=== PATIENT | female | born 1970 | race Caucasian/White ===

== ENCOUNTER 2017-09-13 13:45 | Inpatient (IN) | payer MEDICARE, SELFPAY ==
[2017-09-13] VITALS (12 sets, daily range): BP systolic 96–130; BP diastolic 65–96; PULSE 76–100; RESP 11–24; TEMP 36.3–38.1; O2SAT 92–98
[2017-09-13] MEDS: Celecoxib 200 MG CAP 400 MG PO (14:33)
[2017-09-13] MEDS: oxyCODONE-CR 10 MG TABCR PO (14:34)
[2017-09-13] MEDS: Acetaminophen 500 MG TAB 1000 MG PO ×2 (14:34→20:02)
[2017-09-13] MEDS: Gabapentin 300 MG CAP PO (14:34)
[2017-09-13] MEDS: Lactated Ringers 1,000 ML 80 ML IV ×2 (14:35→20:06)
[2017-09-13 14:48] LABS: Anion Gap 14.2 mmol/L (3-11); BUN 10 mg/dL (7-18); CO2 24.8 mmol/L (21.0-32.0); CREATININE 0.97 mg/dL (0.55-1.02); Calcium 9.2 mg/dL (8.5-10.1); Chloride 103 mmol/L (98-107); Glucose 130 mg/dL (70-100); Potassium 3.4 mmol/L (3.5-5.1); Sodium 142 mmol/L (136-145)
[2017-09-13 15:04] LABS: HCT 34.5 % (36.0-46.0); HGB 11.1 g/dL (12.0-15.5); Mean Corp. HGB Concentration 32.2 g/dL (32.0-36.0); Mean Corpuscular Hemoglobin 30.7 pg (27.0-33.0); Mean Corpuscular Volume 95.6 fL (80-95); Mean Platelet Volume 10.1 fL (8.0-11.0); Platelet Count 502 x1000/uL (130-400); RBC 3.61 m/cumm (4.00-5.20); RBC Distribution Width 13.8 % (11.7-14.6); White Blood Cell Count 11.58 k/cumm (4.4-10.8)
[2017-09-13 16:00] LABS: Hemoglobin A1C 6.3 % (4.5-6.2)
[2017-09-13] MEDS: Lactated Ringers 1,000 ML 1000 ML IV (16:02)
[2017-09-13] MEDS: Normal Saline - Diluent 50 ML VIAL (17:14)
[2017-09-13] MEDS: Ketorolac 30 MG/ML VIAL (17:14)
[2017-09-13] MEDS: Bupivacaine 0.25% Pres-Free 30 ML VIAL 60 ML (17:14)
[2017-09-13 18:57] LABS: C-Reactive Protein 2.32 mg/dL (0.0-0.3)
[2017-09-13] MEDS: Gabapentin 300 MG CAP 600 MG PO (20:02)
[2017-09-13] MEDS: Sucralfate 1 GM TAB PO (20:02)
[2017-09-13] MEDS: metFORMIN 500 MG TAB 1000 MG PO (20:02)
[2017-09-13] MEDS: Aspirin E.C. 81 MG TABEC PO (20:20)
[2017-09-13] MEDS: VANCOMYCIN 1,000 MG in Normal Saline 250 ML 166.6666 MG IVPB (21:33)
[2017-09-13] MEDS: oxyCODONE 5 MG TAB PO (22:36)
[2017-09-13] MEDS: Montelukast 10 MG TAB PO (22:36)
[2017-09-13] MEDS: Levalbuterol HFA 15 GM INH 2 PUFF IH (22:50)
--- NOTE | 2017-09-13 23:03 | NUR.NOTE ---
1914: Pt arrived via stretcher from [facility] with 2 RN's, Sadie and BONDING AGENT Herbert came to round. Patient alert and slightly groggy. Patient transferred from bed to stretcher. Patient VSS. See assessment for further details. Nursing Note:
[2017-09-14] VITALS (7 sets, daily range): BP systolic 99–123; BP diastolic 66–83; PULSE 71–105; RESP 16–20; TEMP 36.2–37.9; O2SAT 95–99
[2017-09-14] MEDS: Normal Saline Flush 10 ML SYR IV ×3 (00:20→17:23)
[2017-09-14] MEDS: Ketorolac 15 MG/ML VIAL IVP ×4 (00:20→17:22)
[2017-09-14] MEDS: Lactated Ringers 1,000 ML 80 ML IV ×2 (02:58→15:27)
[2017-09-14 07:30] LABS: HCT 26.5 % (36.0-46.0); HGB 8.3 g/dL (12.0-15.5); Mean Corp. HGB Concentration 31.3 g/dL (32.0-36.0); Mean Corpuscular Hemoglobin 30.6 pg (27.0-33.0); Mean Corpuscular Volume 97.8 fL (80-95); Platelet Count 485 x1000/uL (130-400); RBC 2.71 m/cumm (4.00-5.20); RBC Distribution Width 13.6 % (11.7-14.6); White Blood Cell Count 23.46 k/cumm (4.4-10.8)
--- NOTE | 2017-09-14 07:47 | PHARADMIT ---
Addendum entered by Esthela Silveira 09/17/17 10:06: Pharmacy Note Subjective pt is doing well today per progress note Objective VS-okay h/h-8.8/27.4 Assessment ceftriaxone continues, no med changes Plan discharge tomorrow- will come to infusion room for ceftriaxone dose Original Note: Addendum entered by Esthela Silveira 09/16/17 12:01: Pharmacy Note Subjective pt. had a transfusion yesterday Objective VS okay wbc-11.94 h/h-9.9/30.4(up) Assessment vanco changed to ceftriaxone yesterday, hydromorphone IVP discontinued ondansetron(PRN), diphehydramine(PRN), lorazepam(PRN) and lactobacillus (PRN) ordered Plan watch VS, labs and for med changes Original Note: Admission Pharmacy Clinical Review INFECTED (L) TKA Code Status Full Code Current Weight Wgt- 79 kg Renally Cleared and Narrow Therapeutic Index Meds CrCl~58.6 mL/min Meds-OK QTc Value / Action Taken none current BP Control, Fever BP-107/71 Tmax- 36.3C Electrolytes reviewed Na-142 K+3.4 DVT Prophylaxis ASA-ec Opiate Usage / Scheduled Bowel Regimen Ordered Yes Yes Plt/SCr for Heparin / Enoxaparin Plts-502 SCr- 0.97 INR for Warfarin na H/H stable, WBC/Bands H&H- 11.1/34.5 WBC- 11.58 Antibiotic appropriateness Vancomycin Cultures and Sensitivities Knee-pending, Blood-pending Surgical ABX d/c within 24 hr na DM control / Insulin Dosing BG-130 CrS8g-1.3 Aspart Heart Failure (Check EF%) (CHICHO's, B-Block, Diuretics) none IV to PO Switch No Home Meds Reviewed Yes Home Meds Not Ordered Lactase, MagOx,Nystatin, TAC Crm Comments
[2017-09-14] MEDS: metFORMIN 500 MG TAB 1000 MG PO ×2 (08:06→19:55)
[2017-09-14] MEDS: oxyCODONE 5 MG TAB PO ×4 (08:06→22:30)
[2017-09-14] MEDS: FLUoxetine 20 MG CAP 60 MG PO (08:07)
[2017-09-14] MEDS: Gabapentin 300 MG CAP 600 MG PO ×2 (08:07→20:00)
[2017-09-14] MEDS: Esomeprazole 40 MG CAPCR PO (08:07)
[2017-09-14] MEDS: Aspirin E.C. 81 MG TABEC PO ×2 (08:08→19:54)
[2017-09-14] MEDS: Cetirizine 10 MG TAB PO (08:08)
[2017-09-14] MEDS: Acetaminophen 500 MG TAB 1000 MG PO ×3 (08:08→19:54)
[2017-09-14] MEDS: VANCOMYCIN 1,000 MG in Normal Saline 250 ML 166.667 MG IV ×2 (08:09→18:09)
[2017-09-14] MEDS: Insulin Aspart 300 UNITS/3 ML PEN SC ×2 (09:13→12:02)
--- NOTE | 2017-09-14 09:45 | IN_ITS ---
INPATIENT PHYSICAL THERAPY EVALUATION Date: 09/14/17 Referring Doctor: Raheel Gongora PT Orders: PT Consult: s/p TKA washout and poly exchanges. WBAT Precautions: WBAT L LE PATIENT PROFILE/ADMITTING DIAGNOSIS: Pt is a 46yr old female s/p left total knee arthroplasty 07/07/[address] Gongora, admitted for washout and poly exchange of left TKA 09/13/17 PMHX: left total knee arthroplasty, right total knee arthroplasty, obesity, chronic obstructive pulmonary disease, diabetes mellitus, asthma, degenerative joint disease right knee, bilateral sciatica, chronic headaches, anxiety, depression, gastroesophageal reflux disease, cholecystectomy, hysterectomy, 4 hernia repairs Social History/Home Situation: Lives with in a trailer, 4 steps with railing to enter, baseline mobility independent gait with no device, independent with ADLS Equipment owned/DME: FWW SUBJECTIVE: Pt lying in bed using CPM. States she could tolerate 0-68 degrees last night. Agreeable to PT Consult. OBJECTIVE: General Observation: namrata wrap left leg, cryocuff L knee, CPM left LE 0-68 Mental Status: A& O x3 Pain: no c/o pain BED MOBILITY/TRANSFERS: Supine-sit: HOB 30 degrees, SBA Sit-stand: supervision with FWW Stand-sit: supervision Bed-chair: supervision with FWW GAIT: supervision with FWW 70ftx2 WBAT L LE THEREX Pt initiated ankle pumps, quad sets, glut sets x 20 reps BALANCE: Static sitting: normal Dynamic Sitting: normal Static Standing fair Dynamic Standing fair SPECIAL TESTS: Mobility Limitations Standardized Measure [facility] AM -PAC 6 clicks Basic Mobility Inpatient Short Form: raw score: 18 standardized score: 43.63 CMS score: 46.58% CMS modifier: CK INFORMED CONSENT/EDUCATION: Pt instructed in purpose of PT Consult and plan of care. ASSESSMENT: Pt is a 46yr old female s/p left total knee arthroplasty 07/07/[address] Gongora, admitted for washout and poly exchange of left TKA 09/13/17 in setting of s/p right total knee arthroplasty 12/20/16,obesity, chronic obstructive pulmonary disease, diabetes mellitus, asthma, degenerative joint disease right knee, bilateral sciatica, chronic headaches, anxiety, depression. Patient presents with the following impairment level findings: decreased strength and ROM right knee, decreased standing balance requiring FWW for gait stability.Pt will benefit from short term therapy intervention for L knee ROM, strengthening and progressive mobility training. Impairments are contributing to the following functional limitations: AMPAC score CMS score: 46.58% Patient is assessed as a * low 06802 complexity based on the following: History: s/p left total knee arthroplasty 07/06/17 with washout and poly exchange 09/14/17 , s/p right total knee arthroplasty 12/20/16,obesity, chronic obstructive pulmonary disease, diabetes mellitus, asthma, degenerative joint disease right knee, bilateral sciatica, chronic headaches, anxiety, depression. Examination: decreased strength and ROM right knee, decreased standing balance requiring FWW for gait stability Presentation: stable Decision Making: AMPAC score CMS score: 46.58% GOALS 1. supine-sit: independent 2. sit-supine: independent 3. sit-stand: independent 4. Stand-sit: independent 5. Bed-chair: supervision with FWW 6. Chair-bed: supervision with FWW 7. Gait: supervision with FWW 200ft WBAT L LE 8. Up/down 4 steps with railing, supervision WBAT L LE 9. 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 DISCHARGE RECOMMENDATIONS Home with , pt has all DME TREATMENT TIME/MINUTES/CODES 25min IE 9:40 G Codes in the area of mobility and walking around, current status GP [id number] with projected status GP [id number] and discharge status GP [id number] based on AMPAC score CMS score: 46.58% Idalmis Auguste PT
[2017-09-14] MEDS: Budesonide/Formoterol 160/4.5 6 GM 60 PUFF INH IH ×2 (10:39→19:56)
--- NOTE | 2017-09-14 12:36 | PDOC.CMIN ---
Care Management Initial Assess REASON FOR HOSPITALIZATION:: Infected (L) TKA PAST MEDICAL HISTORY/PAST SURGICAL HISTORY:: Asthma, COPD, Depression, Diabetes, GERD, Cholecystectomy, Hysterectomy, Multiple fundal plications, 4 hernia repairs, Bilateral knee arthroscopies, RTKR, (L) Knee arthroscopy PREVIOUS FUNCTIONAL STATUS/SOCIAL/FAMILY SUPPORTS:: Antonia resides in [place] with her , Mckinley. She is independent with all ADLs in the community and has disability support de to knee and back problems. CURRENT FUNCTIONAL STATUS:: Barbara is lying in bed when CM meets with her. She is pleasant in interaction and forthcoming with information. Barbara is currently being monitored and treated with IV ABX and IV and PO medication for pain management. ADVANCE DIRECTIVES:: On file - Mckinley is agent. Has patient been provided with information about the portal?: Yes Did the patient sign up for the portal?: No CODE STATUS:: Full Code INSURANCE COVERAGE / FINANCIAL ISSUES:: Medicare, Financial Asst 100 CURRENT HOME/COMMUNITY SERVICES/EQUIPMENT:: FWW, prior outpatient physical therapy at [facility]. PRIMARY CARE PHYSICIAN:: Gissell Davis POTENTIAL DISCHARGE NEEDS:: Follow up appointment with Dr. Gongora, and PCP. Undetermined coordination need for detention IV ABX; if needed. PATIENT/FAMILY EDUCATION NEEDS:: Review of discharge instructions, insurance limitations. Discuss Ask Me Three. ANTICIPATED BARRIERS TO DISCHARGE:: IV ABX; [facility] infusion room/Home based infusion therapy coordination; unlikely home infusion will be covered by current Medicare coverage. TRANSPORTATION:: Via private vehicle with her . PLAN:: Undetermined need of IV ABX treatment for infected (L) TKA; awaiting cultures and ID consult. Barbara is currently being treated with 1,000mg Vancomycin Q10H. CM will continue to follow and await MD recommendations for discharge planning considerations.
--- NOTE | 2017-09-14 12:47 | INITIAL_ITS ---
Care Management Initial Assess REASON FOR HOSPITALIZATION:: Infected (L) TKA PAST MEDICAL HISTORY/PAST SURGICAL HISTORY:: Asthma, COPD, Depression, Diabetes , GERD, Cholecystectomy, Hysterectomy, Multiple fundal plications, 4 hernia repairs, Bilateral knee arthroscopies, RTKR, (L) Knee arthroscopy PREVIOUS FUNCTIONAL STATUS/SOCIAL/FAMILY SUPPORTS:: Antonia resides in [place] with her , Mckinley. She is independent with all ADLs in the community and has disability support de to knee and back problems. CURRENT FUNCTIONAL STATUS:: Barbara is lying in bed when CM meets with her. She is pleasant in interaction and forthcoming with information. Barbara is currently being monitored and treated with IV ABX and IV and PO medication for pain management. ADVANCE DIRECTIVES:: On file - Mckinley is agent. Has patient been provided with information about the portal?: Yes Did the patient sign up for the portal?: No CODE STATUS:: Full Code INSURANCE COVERAGE / FINANCIAL ISSUES:: Medicare, Financial Asst 100 CURRENT HOME/COMMUNITY SERVICES/EQUIPMENT:: FWW, prior outpatient physical therapy at [facility] [place]. PRIMARY CARE PHYSICIAN:: Gissell Davis POTENTIAL DISCHARGE NEEDS:: Follow up appointment with Dr. Gongora, and PCP. Undetermined coordination need for timber deadener IV ABX; if needed. PATIENT/FAMILY EDUCATION NEEDS:: Review of discharge instructions, insurance limitations. Discuss Ask Me Three. ANTICIPATED BARRIERS TO DISCHARGE:: IV ABX; [facility] infusion room/Home based infusion therapy coordination; unlikely home infusion will be covered by current Medicare coverage. TRANSPORTATION:: Via private vehicle with her . PLAN:: Undetermined need of IV ABX treatment for infected (L) TKA; awaiting cultures and ID consult. Barbara is currently being treated with 1,000mg Vancomycin Q10H. CM will continue to follow and await MD recommendations for discharge planning considerations.
--- NOTE | 2017-09-14 14:27 | INPTTR_ITS ---
PHYSICAL THERAPY PROGRESS NOTE Date: 09/14/17 PRECAUTIONS: WBAT L LE SUBJECTIVE: Pt sat up in chair 3 hours this morning, focused on left knee flexion/extension in chair. Agreeable to PT session prior to return to bed to apply CPM \ OBJECTIVE: General Observation: namrata wrap left leg, cryocuff L knee, CPM left LE 0-72 Pain: c/o tightness left knee and quad, not rated. RN providing pain medication , pt using cryocuff BED MOBILITY/TRANSFERS: Sit-stand: supervision Chair-bed: supervision with FWW Stand-sit: supervision Sit-supine: HOB flat, All for L LE CPM applied- increased from 0-68 to 0-72 with good tolerance. Pt instructed in use of device to continue to increase flexion to 90 degrees as tolerated. Plan is for CPM application 1-5pm and 6-10pm daily if approved by . cryocuff continuously GAIT: supervision with FWW 70ftx2 WBAT L LE THEREX Pt initiated ankle pumps, quad sets, glut sets x 20 reps, long arc quad left 10reps BALANCE: Static sitting: normal Dynamic Sitting: normal Static Standing fair Dynamic Standing fair ASSESSMENT: Mobilizing well with transfers and gait with FWW, stiffness and tightness left knee and quad post operatively. Able to increase knee flexion in CPM to 72 this afternoon PLAN: Progress L knee ROM Progress strengthening Progress gait mobility TREATMENT CODES/TIME: 25min Tax1 TP x1 1305 Idalmis Auguste PT
[2017-09-14] MEDS: Gabapentin 300 MG CAP PO (14:37)
--- NOTE | 2017-09-14 17:23 | PROG.BLANK ---
Date of Service: 09/14/17 Time of Service: 15:40 Progress Note Fay is postop day #1 from I&D and polyethylene exchange for an infected left total knee. She reports the pain in the knee is much better than it was. I did place her on a CPM since we have been struggling with motion in this knee for the beginning. She has been tolerating it well and is happy to see the knee moving with much less pain. She has had good pain control with the oral agents. She denies any fever or chills. She has had no chest pain or shortness of breath. She has been able to work with physical therapy and has ambulated in the hallways. Exam: No acute distress. Alert oriented 3. Left knee is in the CPM. Dressings clean dry and intact. Assessment of passive motion is from 10 to about 80?. Sensation intact light touch of the deep and superficial peroneal nerve and tibial nerves. Assessment and plan: Fay is a 47-year-old with an infected left total knee arthroplasty. I am hopeful this can be treated with the irrigation and debridement and polyethylene exchange with IV antibiotics. However, I have been honest with pain that this may require two-stage procedure which we will try to avoid. At this point the cultures are growing out staph aureus. I am awaiting sensitivities and therefore we will keep her on vancomycin but hopefully will be able to switch to something less potent and more specific. We will plan for a PICC line placement tomorrow pending blood culture results which will likely be negative. We will continue to draw some inflammatory markers and labs to follow these. She will be ready for discharge once we have a better idea of her antibiotic treatment plan.
[2017-09-14] MEDS: Sucralfate 1 GM TAB PO (19:55)
[2017-09-14] MEDS: Montelukast 10 MG TAB PO (22:30)
[2017-09-15] VITALS (15 sets, daily range): BP systolic 113–134; BP diastolic 65–88; PULSE 78–103; RESP 16–20; TEMP 36.2–37.8; O2SAT 94–100
[2017-09-15] MEDS: Ketorolac 15 MG/ML VIAL IVP ×4 (00:11→19:00)
[2017-09-15] MEDS: Normal Saline Flush 10 ML SYR IV ×6 (00:17→21:54)
[2017-09-15] MEDS: oxyCODONE 5 MG TAB PO ×5 (04:25→22:31)
[2017-09-15] MEDS: VANCOMYCIN 1,000 MG in Normal Saline 250 ML 166.667 MG IV (04:55)
[2017-09-15] MEDS: Lactated Ringers 1,000 ML 80 ML IV (06:02)
--- NOTE | 2017-09-15 06:51 | ROE_ITS ---
REPORT OF OPERATIVE REPORT DATE OF PROCEDURE September 13, 2017 PREOPERATIVE DIAGNOSIS Infected left total knee arthroplasty. POSTOPERATIVE DIAGNOSIS Infected left total knee arthroplasty. SURGEON Raheel Gongora M.D. TORCH HEATER Guillermo Humphreys FINDINGS After entering into the knee, the primary infection seemed to be at the quad tendon and the suprapatellar region. Extensive debridement and irrigation was performed followed by polyethylene exchange with placement of Stimulan antibiotic laden beads. ANESTHESIA General. ESTIMATED BLOOD LOSS 400 cc COMPLICATIONS None. DISPOSITION The patient was awakened from anesthesia and taken to the PACU in stable condition. INDICATIONS FOR PROCEDURE Fay is a 47-year-old who I have seen for her left total knee. She underwent a first knee replacement without a major event. However, in the postoperative process, she failed to gain any extension. She had a pain free range of motion, but she had limited flexion by greater than 20 degrees. After dealing with this for some time, I did take her back to the Operating Room on August 22, for a revision of her polyethylene component. At that time the knee appeared healthy. There were no signs of infection. The polyethylene was exchanged to a smaller size, where she had notable full extension and flexion on intraoperative and postoperative exam. She did well initially and when I saw her for the first postop, she was started to regress. I followed her closely and her exam continued to deteriorate and pain continued to increase. The knee was not warm or erythematous. However, given the increasing pain and the decreasing motion, I did aspirate the knee to rule out infection and unfortunately, this is positive for infection. I thus recommended she proceed to the Operating Room that day. I reviewed the risk of treatment to include bleeding, persistent infection, need for repeat procedures, damage to nerve and vessels, stiffness, pain, blood clot. Despite these risks, she elected to proceed. DESCRIPTION OF PROCEDURE Fay was greeted in the preoperative holding area. Her identity was confirmed and the correct side was identified and marked. The consent was reviewed with the patient and signed. The history and physical was updated. She was taken back to the Operating Room and placed in the supine position. All bony prominences were padded. Prophylactic antibiotics in the form of cefazolin were administered given that we already had aspiration of the knee with pending cultures. The left leg was then prepped with ChloraPrep and draped in a standard fashion. A timeout was performed for safe surgery. The previous surgical scar was excised. The deeper tissues wee then entered. The tissue planes were quite difficult to distinguish. The incision was extended proximally and distally to help with regaining normal tissue planes. There was notable derangement of the distal aspect of the quadriceps tendon where it moves around the patella. The original sutures from the parapatellar arthrotomy were identified and were used as landmarks to perform a medial patellar arthrotomy. There was immediate encounter of a significant amount of pus, once we got into the arthrotomy. There was synovitis seen primarily in the suprapatellar pouch and in this region of the quadriceps tendon. The arthrotomy was taken down all the way to complete and to perform mobilization of the capsule. The quad tendon was investigated and there was definitely signs that the tissue was not healing in this area. The tissue, which appeared unhealthy or necrotic was debrided sharply. In trying to get the knee to bed, there was also noted to be dense adhesions both on the undersurface of the quadriceps tendon and also superiorly between the quadriceps tendon and the skin and fat. Multiple tissue and fluid samples were sent during the case to the lab for culture analysis. I started with the synovectomy laterally. The synovium was excised off of the capsule. This was taken down both proximally and distally. It was extended proximally to re-create the suprapatellar pouch and also remove the adhesions between the quadriceps tendon and the anterior femur. The same was repeated for the medial side, the synovium was taken off. The synovium was not particularly thickened in the inferior portion of the wound. Any areas where we do not feel we adequately took the synovium off, we then debrided manually with a rongeur. This was also performed very proximally underneath the quadriceps tendon to remove any adhesions. This allowed better flexibility of the quadriceps tendon. The patella was then everted and the knee was flexed up. The polyethylene was removed. With the knee in both flexion and extension, a rongeur was used to perform the posterior synovectomy. There was no gross pus encountered in this area. I then used 6 liters of normal saline to thoroughly irrigate the knee. All aspects of the knee were irrigated aggressively, any other remnants of necrotic or diseased synovium were removed. Given her history of having difficulty with range of motion, I did trial a new polyethylene and decided to go with a 5-mm polyethylene. This provided excellent flexion and extension. It did have gapping of about 2 millimeters with valgus stress and 1 millimeter with varus stress. However, I excepted this given her tendency to get tight. The patella was tracking well. The wound was then once again irrigated. On the back table, Stimulan beads were prepared. These were made with vancomycin powder, 1 gram. With these prepared, they were put into the suprapatellar pouch. The arthrotomy was then closed with a #1-PDS. The deep tissues were closed with a #2-0 and #3-0 PDS. The skin was closed with #3-0 Nylon. A tourniquet was not used. At the end of the case, all counts were correct. Fay was awakened from anesthesia and taken back to the PACU in stable condition.
[2017-09-15 07:12] LABS: HCT 21.1 % (36.0-46.0); Mean Corp. HGB Concentration 31.3 g/dL (32.0-36.0); Mean Corpuscular Hemoglobin 30.4 pg (27.0-33.0); Mean Corpuscular Volume 97.2 fL (80-95); Mean Platelet Volume 9.7 fL (8.0-11.0); RBC 2.17 m/cumm (4.00-5.20); RBC Distribution Width 13.4 % (11.7-14.6); White Blood Cell Count 10.22 k/cumm (4.4-10.8)
[2017-09-15 07:19] LABS: HGB 6.6 g/dL (12.0-15.5)
[2017-09-15 07:44] LABS: Platelet Count 296 x1000/uL (130-400)
[2017-09-15] MEDS: FLUoxetine 20 MG CAP 60 MG PO (07:52)
[2017-09-15] MEDS: Acetaminophen 500 MG TAB 1000 MG PO ×3 (08:01→22:32)
[2017-09-15] MEDS: Esomeprazole 40 MG CAPCR PO (08:01)
[2017-09-15] MEDS: metFORMIN 500 MG TAB 1000 MG PO ×2 (08:01→22:33)
[2017-09-15] MEDS: Cetirizine 10 MG TAB PO (08:02)
[2017-09-15] MEDS: Aspirin E.C. 81 MG TABEC PO ×2 (08:02→22:33)
[2017-09-15] MEDS: Sucralfate 1 GM TAB PO ×2 (08:03→22:33)
[2017-09-15] MEDS: Gabapentin 300 MG CAP 600 MG PO ×2 (08:03→22:30)
--- NOTE | 2017-09-15 08:06 | NT_ITS ---
09/15/17 Held morning PT session, per nsg request, due to low Hgb lab value. Will attempt to resume PT services this afternoon, if appropriate at that time. Taylor Gann, FERMENTATION SCIENTIST
[2017-09-15] MEDS: Budesonide/Formoterol 160/4.5 6 GM 60 PUFF INH IH ×2 (08:09→22:34)
[2017-09-15] MEDS: Insulin Aspart 300 UNITS/3 ML PEN SC (08:20)
[2017-09-15 10:01] LABS: C-Reactive Protein 7.33 mg/dL (0.0-0.3)
--- NOTE | 2017-09-15 10:31 | INPTTR_ITS ---
PHYSICAL THERAPY PROGRESS NOTE Date: 09/15/17 PRECAUTIONS: WBAT L LE SUBJECTIVE: Pt lying in bed, states she would like to go to the bathroom, RN cleared pt to mobilize to bathroom, pt with decreased HGB and to receive blood transfusion. OBJECTIVE: General Observation: namrata wrap left leg, cryocuff L knee, CPM pt using at LE 0- 72 Pain: c/o tenderness anterior knee, RN providing pain medication, cryocuff applied at end of therapy session BED MOBILITY/TRANSFERS: Supine-sit: independent Sit-stand: supervision with [facility] Bed-bathroom for toileting: supervision with [facility] Bathroom-bed: supervision with [facility] Stand-sit: supervision Sit-supine: HOB flat, All for L LE * pt wearing LINA hose and SCD's applied to bilateral LE's once back to bed, cryocuff applied to left knee GAIT: supervision with [facility] 25ftx2 WBAT L LE THEREX Pt issued handout for LE strengthening program and instructed in therapeutic exercise. Performed: ankle pumps, quad sets, glute sets x 20 reps, left heel slides 10 reps, AA L SLR 10 reps, AA left hip abduction 10 reps, AA L SAQ 10 reps. Pt focusing on knee extension and quad contraction L LE. Pt instructed to perform therapeutic exercises 2x/day at 10 reps each. Pt verbalized understanding. BALANCE: Static sitting: normal Dynamic Sitting: normal Static Standing fair Dynamic Standing fair ASSESSMENT: Gait mobility limited today due to decreased HGB and plan for blood transfusion. Pt mobilizing with supervision only with walker to/from bathroom. Pain left knee limiting progress with ROM and CPM, pt at 0-72 settings. RN providing pain medication and use of cryocuff encouraged to reduce pain and edema. Participated well in therapeutic exercises for quad activation and LE strengthening, will continue to progress this over weekend. PLAN: Progress L knee ROM Progress strengthening Progress gait mobility TREATMENT CODES/TIME: 32min TAx1 TP x1 10:26 Idalmis Auguste PT
--- NOTE | 2017-09-15 10:34 | PROG.BLANK ---
Date of Service: 09/16/17 Time of Service: 10:00 Progress Note S - Fay is doing better today. She is less anxious and hasn't had any vomiting. She has been able to mobilize. Her headaches are better. She still is struggling with pain control and nausea, although better. O - VSS. LLE dressing c/d/i ROM 5-75 +ADF/APF/EHL/FHL SILT DP/SP/Tib CRP = 8 Abnormal Lab Results 09/15/17 09/16/17 06:55 07:00 WBC 11.94 H RBC 3.19 L Hgb 9.9 L D Hct 30.4 L D MCV 95.3 H MCH 31.0 MCHC 32.6 RDW 14.4 Plt Count 407 H MPV 9.7 Crossmatch See Detail A/P - Fay is doing better POD#3 s/p I&D of L TKA. She is still having some nausea and pain control issues. However, they are getting better. She is mobilizing and working on ROM. I expect her CRP to have crested, but will continue to follow. Continue Cefftriaxone 2g daily. CPM during the day when not exercising.
[2017-09-15] MEDS: LORazepam 2 MG/ML VIAL 0.5 MG IVP (12:08)
--- NOTE | 2017-09-15 12:29 | PROG.BLANK ---
Date of Service: 09/15/17 Time of Service: 12:00 Progress Note S - Fay is doing okay. She reports much better pain control. She has been working on flexion and extension and using the CPM. She has had an increase in her headache. She also has had some more nausea. She denies any chest pain, palpitation, lightheadedness. However, she reports feeling worse overall with no energy. O - VSS. Somewhat pale. LLE dressing c/d/i. CHICHO removed. ROM 5-75 Hgb = 6.6, A/P - Fay is POD#2 s/p I&D and poly exchange for L TKA infection. She is doing okay but does have acute blood loss anemia. She is having headaches and malaise and so I will transfuse. She is quite anxious about blood transfusion. She is also to get a PICC line today for long-term antibiotics. Her cultures are groing MSSA, so I will switch her to Ceftriaxone in preparation for discharge. WBAT LLE.
--- NOTE | 2017-09-15 12:34 | PDOC.CMPRO ---
Care Management Progress Note S/O: Barbara was lying in bed with visitors present when CM met with her. CM reviewed limitations of insurance coverage for home IV ABX; Barbara is agreeable to discharge planning for daily IV Infusion therapy at [facility]. Barbara had her PICC placed today, she also required a blood transfusion and will likely be monitored over the weekend and discharge after her IV ABX dose is administered on Monday. A: 47 year old female admitted to [facility] 09/13/17 for Infected (L) TKA P: Barbara will have PICC line placed and Dr. Gongora will complete orders for infusion therapy and dressing changes at [facility] Infusion Room per MD. She will transport home via private vehicle with family.
--- NOTE | 2017-09-15 12:36 | CMPROGNOTE_ITS ---
Care Management Progress Note S/O: Barbara was lying in bed with visitors present when CM met with her. CM reviewed limitations of insurance coverage for home IV ABX; Barbara is agreeable to discharge planning for daily IV Infusion therapy at [facility]. Barbara had her PICC placed today, she also required a blood transfusion and will likely be monitored over the weekend and discharge after her IV ABX dose is administered on Monday. A: 47 year old female admitted to [facility] 09/13/17 for Infected (L) TKA P: aBrbara will have PICC line placed and Dr. Gongora will complete orders for infusion therapy and dressing changes at [facility] Infusion Room per MD. She will transport home via private vehicle with family.
[2017-09-15] MEDS: Gabapentin 300 MG CAP PO (14:33)
--- NOTE | 2017-09-15 14:42 | NT_ITS ---
PHYSICAL THERAPY NOTE 09/15/17 CPM applied to patient, able to tolerate 0-72 with cryocuff applied. Idalmis Auguste PT
[2017-09-15] MEDS: Normal Saline 500 ML 30 ML IV (15:35)
[2017-09-15] MEDS: Normal Saline 500 ML 150 ML IV (16:22)
[2017-09-15] MEDS: HYDROmorphone 2 MG/ML VIAL 1 MG IVP (16:44)
[2017-09-15 16:54] LABS: Anion Gap 10.4 mmol/L (3-11); BUN 7 mg/dL (7-18); CO2 23.6 mmol/L (21.0-32.0); CREATININE 0.69 mg/dL (0.55-1.02); Calcium 8.2 mg/dL (8.5-10.1); Chloride 105 mmol/L (98-107); Glucose 128 mg/dL (70-100); Potassium 3.6 mmol/L (3.5-5.1); Sodium 139 mmol/L (136-145)
[2017-09-15] MEDS: Ondansetron 4 MG/2 ML VIAL IVP (21:54)
[2017-09-15] MEDS: Montelukast 10 MG TAB PO (22:32)
[2017-09-16] VITALS (7 sets, daily range): BP systolic 115–140; BP diastolic 69–92; PULSE 73–86; RESP 16–19; TEMP 36.1–36.9; O2SAT 94–100
[2017-09-16] MEDS: Ketorolac 15 MG/ML VIAL IVP ×4 (00:06→17:47)
[2017-09-16] MEDS: Normal Saline Flush 10 ML SYR IV ×3 (00:06→17:47)
[2017-09-16] MEDS: oxyCODONE 5 MG TAB PO ×3 (06:14→21:33)
[2017-09-16] MEDS: Lactated Ringers 1,000 ML 80 ML IV ×2 (06:15→21:34)
[2017-09-16 07:27] LABS: HCT 30.4 % (36.0-46.0); HGB 9.9 g/dL (12.0-15.5); Mean Corp. HGB Concentration 32.6 g/dL (32.0-36.0); Mean Corpuscular Volume 95.3 fL (80-95); Mean Platelet Volume 9.7 fL (8.0-11.0); Platelet Count 407 x1000/uL (130-400); RBC 3.19 m/cumm (4.00-5.20); RBC Distribution Width 14.4 % (11.7-14.6); White Blood Cell Count 11.94 k/cumm (4.4-10.8)
[2017-09-16] MEDS: Aspirin E.C. 81 MG TABEC PO ×2 (08:03→21:26)
[2017-09-16] MEDS: FLUoxetine 20 MG CAP 60 MG PO (08:03)
[2017-09-16] MEDS: Esomeprazole 40 MG CAPCR PO (08:03)
[2017-09-16] MEDS: Gabapentin 300 MG CAP 600 MG PO ×2 (08:03→21:26)
[2017-09-16] MEDS: Sucralfate 1 GM TAB PO ×2 (08:03→21:26)
[2017-09-16] MEDS: Acetaminophen 500 MG TAB 1000 MG PO ×3 (08:03→21:26)
[2017-09-16] MEDS: Cetirizine 10 MG TAB PO (08:03)
[2017-09-16] MEDS: metFORMIN 500 MG TAB 1000 MG PO ×2 (08:04→21:27)
[2017-09-16] MEDS: Magnesium Oxide 400 MG TAB PO (08:04)
--- NOTE | 2017-09-16 09:19 | INPTTR_ITS ---
PHYSICAL THERAPY PROGRESS NOTE Date: 09/16/17 PRECAUTIONS: WBAT L LE SUBJECTIVE: Pt reports that her leg is looking better today. OBJECTIVE PAIN: BED MOBILITY/TRANSFERS Rolling L/R: Supine-sit: Sit-supine: Sit-stand: SBA Stand-sit: SBA Bed-Chair: Chair-bed: GAIT Assistive Device FWW Weightbearing WBAT Assist: SBA Distance: 30ftx2 Deviation VITALS: THEREX: Pt completed LE strengthening requiring assist with SLR/hip ABD. Pt completed glute sets, and ankle pumps. STAIRS: ASSESSMENT: Pt tolerated today's session well. PLAN: Cont as per PT POC. TREATMENT CODES/TIME:7:30-7:55 (25) TEE BERGER
[2017-09-16] MEDS: Budesonide/Formoterol 160/4.5 6 GM 60 PUFF INH IH ×2 (09:38→21:27)
--- NOTE | 2017-09-16 10:34 | PROG.BLANK ---
Date of Service: 09/16/17 Time of Service: 10:34 Progress Note S - Fay is doing better today. She is less anxious and hasn't had any vomiting. She has been able to mobilize. Her headaches are better. She still is struggling with pain control and nausea, although better. O - VSS. LLE dressing c/d/i ROM 5-75 +ADF/APF/EHL/FHL SILT DP/SP/Tib CRP = 8 Abnormal Lab Results 09/15/17 09/16/17 06:55 07:00 WBC 11.94 H RBC 3.19 L Hgb 9.9 L D Hct 30.4 L D MCV 95.3 H MCH 31.0 MCHC 32.6 RDW 14.4 Plt Count 407 H MPV 9.7 Crossmatch See Detail A/P - Fay is doing better POD#3 s/p I&D of L TKA. She is still having some nausea and pain control issues. However, they are getting better. She is mobilizing and working on ROM. I expect her CRP to have crested, but will continue to follow. Continue Cefftriaxone 2g daily. CPM during the day when not exercising.
--- NOTE | 2017-09-16 10:44 | PDOC.CMPRO ---
Date of Service: 09/16/17 Time of Service: 10:44 Care Management Progress Note S/O: Barbara is sitting up in bed eating breakfast when this commercial lines underwriter visits. Barbara is well known to this commercial lines underwriter and states that is hopeful to be able to leave Monday. Barbara had a PICC line placed and once discharged will come to the [facility] infusion room daily for IV antibiotics. No change in plan at this time. A: 47 year old female admitted to [facility] 09/13/17 for Infected (L) TKA P: Barbara will have PICC line placed and Dr. Gongora will complete orders for infusion therapy and dressing changes at [facility] Infusion Room per MD. She will transport home via private vehicle with family.
--- NOTE | 2017-09-16 10:46 | CMPROGNOTE_ITS ---
Date of Service: 09/16/17 Time of Service: 10:44 Care Management Progress Note S/O: Barbara is sitting up in bed eating breakfast when this technical writer visits. Barbara is well known to this technical writer and states that is hopeful to be able to leave Monday. Barbara had a PICC line placed and once discharged will come to the [facility] infusion room daily for IV antibiotics. No change in plan at this time. A: 47 year old female admitted to [facility] 09/13/17 for Infected (L) TKA P: Barbara will have PICC line placed and Dr. Gongora will complete orders for infusion therapy and dressing changes at [facility] Infusion Room per MD. She will transport home via private vehicle with family.
[2017-09-16] MEDS: Gabapentin 300 MG CAP PO (14:35)
[2017-09-16] MEDS: Lactobacillus Acidophilus CAP 1 CAP PO (14:35)
[2017-09-16] MEDS: Montelukast 10 MG TAB PO (21:26)
[2017-09-17] MEDS: oxyCODONE 5 MG TAB PO ×6 (00:37→21:14)
[2017-09-17] MEDS: Ketorolac 15 MG/ML VIAL IVP ×5 (00:38→23:45)
[2017-09-17] MEDS: Normal Saline Flush 10 ML SYR IV ×4 (00:39→23:45)
[2017-09-17 03:50] VITALS: BP 127/88; PULSE 78; RESP 16; TEMP 36.6; O2SAT 96
[2017-09-17 07:15] VITALS: BP 117/73; PULSE 82; RESP 18; TEMP 36.1; O2SAT 97
[2017-09-17] MEDS: Acetaminophen 500 MG TAB 1000 MG PO ×3 (07:48→21:13)
[2017-09-17] MEDS: Magnesium Oxide 400 MG TAB PO (07:49)
[2017-09-17] MEDS: Esomeprazole 40 MG CAPCR PO (07:49)
[2017-09-17] MEDS: Lactobacillus Acidophilus CAP 1 CAP PO (07:49)
[2017-09-17] MEDS: Gabapentin 300 MG CAP 600 MG PO ×2 (07:49→21:13)
[2017-09-17] MEDS: FLUoxetine 20 MG CAP 60 MG PO (07:49)
[2017-09-17] MEDS: metFORMIN 500 MG TAB 1000 MG PO ×2 (07:49→21:15)
[2017-09-17 07:50] LABS: HCT 27.4 % (36.0-46.0); HGB 8.8 g/dL (12.0-15.5); Mean Corp. HGB Concentration 32.1 g/dL (32.0-36.0); Mean Corpuscular Hemoglobin 30.9 pg (27.0-33.0); Mean Corpuscular Volume 96.1 fL (80-95); Mean Platelet Volume 9.5 fL (8.0-11.0); Platelet Count 326 x1000/uL (130-400); RBC 2.85 m/cumm (4.00-5.20); RBC Distribution Width 14.1 % (11.7-14.6); White Blood Cell Count 8.68 k/cumm (4.4-10.8)
[2017-09-17] MEDS: Cetirizine 10 MG TAB PO (07:50)
[2017-09-17] MEDS: Aspirin E.C. 81 MG TABEC PO ×2 (07:50→21:16)
[2017-09-17] MEDS: Sucralfate 1 GM TAB PO ×2 (07:50→21:16)
[2017-09-17 07:59] LABS: C-Reactive Protein 4.91 mg/dL (0.0-0.3)
[2017-09-17] MEDS: Budesonide/Formoterol 160/4.5 6 GM 60 PUFF INH IH ×2 (08:04→21:21)
--- NOTE | 2017-09-17 09:25 | PROG.BLANK ---
Date of Service: 09/17/17 Time of Service: 09:25 Progress Note Subjective: Fay is doing well today. She has been able to decrease her pain medications. Her nausea seems to be improving. She is making some progress with her mobilization. She is tolerating the ceftriaxone. She still complains of pain about the knee but it is less intense than it was before the surgery. She is reluctant to use the CPM. Objective: Vital signs are stable. Afebrile. Evaluation the left knee shows a clean dry and intact dressing. Knee range of motion is approximately 5-85?. She is able straight leg raise but does so with a lag of about 20-25?. No erythema. There is an effusion. Laboratory: White blood cell count equals 8.68, C-reactive protein = 4.9 Assessment and plan: Fay is postop day #3 status post I&D and polyethylene exchange of a left total knee arthroplasty. She is making improvements. She is still having some pain issues but we are on the mend. Her C-reactive protein has started to decrease as it should at this time. She is tolerating antibiotics. At this point we will plan for a home discharge tomorrow. We will have her come to the infusion room on a daily basis for her ceftriaxone 2 g. She will continue aspirin for DVT prophylaxis. I will see her back in another week and a half.
--- NOTE | 2017-09-17 09:28 | PROG.BLANK_ITS ---
Date of Service: 09/17/17 Time of Service: 09:25 Progress Note Subjective: Fay is doing well today. She has been able to decrease her pain medications. Her nausea seems to be improving. She is making some progress with her mobilization. She is tolerating the ceftriaxone. She still complains of pain about the knee but it is less intense than it was before the surgery. She is reluctant to use the CPM. Objective: Vital signs are stable. Afebrile. Evaluation the left knee shows a clean dry and intact dressing. Knee range of motion is approximately 5-85 . She is able straight leg raise but does so with a lag of about 20-25 . No erythema. There is an effusion. Laboratory: White blood cell count equals 8.68, C-reactive protein = 4.9 Assessment and plan: Fay is postop day #3 status post I&D and polyethylene exchange of a left total knee arthroplasty. She is making improvements. She is still having some pain issues but we are on the mend. Her C-reactive protein has started to decrease as it should at this time. She is tolerating antibiotics. At this point we will plan for a home discharge tomorrow. We will have her come to the infusion room on a daily basis for her ceftriaxone 2 g. She will continue aspirin for DVT prophylaxis. I will see her back in another week and a half.
--- NOTE | 2017-09-17 10:27 | INPTTR_ITS ---
PHYSICAL THERAPY PROGRESS NOTE Date: 09/17/17 PRECAUTIONS: WBAT L LE SUBJECTIVE: Pt reports that the swelling cont to improve. OBJECTIVE PAIN: BED MOBILITY/TRANSFERS Rolling L/R: Supine-sit: SBA Sit-supine: SBA Sit-stand: SBA Stand-sit: SBA Bed-Chair: Chair-bed: GAIT Assistive Device FWW Weightbearing WBAT L LE Assist: SBA Distance: 35ftx2 Deviation VITALS: THEREX: Pt completed LE strengthening as per flow sheet. Pt required some assist with the SLR and hip abd. Pt then completed the CPM 74 degrees knee flexion 0 degrees knee ext. STAIRS: ASSESSMENT: Pt tolerated today's session well. Pt cont to be motivated during her PT sessions. PLAN: Cont as per PT POC. TREATMENT CODES/TIME: 8:50-9:20 (35) TEE BERGER
[2017-09-17 11:35] VITALS: BP 124/85; PULSE 80; RESP 17; TEMP 36.1; O2SAT 98
[2017-09-17] MEDS: Lactated Ringers 1,000 ML 80 ML IV ×2 (11:46→21:16)
--- NOTE | 2017-09-17 13:31 | PDOC.CMPRO ---
Date of Service: 09/17/17 Time of Service: 13:31 Care Management Progress Note S/O: Fay is sitting up in bed eating breakfast when this insurance underwriter visits. CM spoke with Dr. Gongora whom states that Fay will be ready for DC on Monday09/18/17. Fay will go the [facility] Infusion Room starting Monday for daily IV antibiotics as well as PICC dressing changes when needed. A: 47 year old female admitted to [facility] 09/13/17 for Infected (L) TKA P: Barbara will have PICC line placed and Dr. Gongora will complete orders for infusion therapy and dressing changes at [facility] Infusion Room per MD. She will transport home via private vehicle with family.
--- NOTE | 2017-09-17 13:33 | CMPROGNOTE_ITS ---
Date of Service: 09/17/17 Time of Service: 13:31 Care Management Progress Note S/O: Fay is sitting up in bed eating breakfast when this keno writer visits. CM spoke with Dr. Gongora whom states that Fay will be ready for DC on 09/18. Fay will go the [facility] Infusion Room starting Monday for daily IV antibiotics as well as PICC dressing changes when needed. A: 47 year old female admitted to [facility] 09/13/17 for Infected (L) TKA P: Barbara will have PICC line placed and Dr. Gongora will complete orders for infusion therapy and dressing changes at [facility] Infusion Room per MD. She will transport home via private vehicle with family.
[2017-09-17] MEDS: Gabapentin 300 MG CAP PO (14:07)
[2017-09-17 16:53] VITALS: BP 123/82; PULSE 69; RESP 18; TEMP 36.9; O2SAT 98
[2017-09-17 21:02] VITALS: BP 127/75; PULSE 71; RESP 18; TEMP 36.8; O2SAT 97
[2017-09-17] MEDS: Montelukast 10 MG TAB PO (21:16)
[2017-09-17 23:53] VITALS: BP 123/81; PULSE 67; RESP 18; TEMP 36.4; O2SAT 98
[2017-09-18] MEDS: oxyCODONE 5 MG TAB PO ×2 (00:20→07:20)
[2017-09-18] MEDS: Normal Saline Flush 10 ML SYR IV (05:58)
[2017-09-18] MEDS: Ketorolac 15 MG/ML VIAL IVP (05:59)
--- NOTE | 2017-09-18 07:20 | DISCHARGE ---
Discharge - Discharge Orders Referrals: Raheel Gongora MD [ [facility] STAFF PHYSICIAN] - - Discharge Plan Disposition: HOME Condition: Improving Diet:: Normal Diet Equipment/Supplies:: Walker Activity:: Activity as Tolerated - Instructions Additional Instructions: Dr. Gongora?s Knee Discharge Instructions Activity: The most important activity is to walk. You should try to take short walks a few times a day. It is important that when resting you work on keeping the knee straight. Avoid putting a pillow behind the knee as this will encourage flexion. Work on range of motion exercises as provided by Physical Therapy. Work on flexion (bending the knee) at least 3 times per day. - Start outpatient physical therapy within 1 week. - You should wear the LINA hose on both legs for 2 weeks. May remove for comfort. Dressing: Keep the surgical dressing in place for at least one week. After the first week it may be removed and replace with light gauze and tape or nothing. It may get wet after 3 days but avoid soaking the dressing. If it gets wet, just lightly pat dry. Medications: - You should take Tylenol as your primary pain control medications - You have been prescribed a stronger pain medication (Oxycodone) for breakthrough pain, take as needed as prescribed. - You will be taking Aspirin 81mg twice a day for DVT prevention unless instructed otherwise. - If you have constipation you should take Colace or Miralax (both [id number]). It takes most people 3-4 days to have a bowel movement. - You will be coming to the [facility] Infusion room for once daily antibiotic infusion - Ceftriaxone 2grams. - Make sure to take an [id number]-[id number] probiotic or consume yogurt or other similar dairy products while taking the antibiotics. Follow-up: 2 weeks
--- NOTE | 2017-09-18 07:24 | PDOC.DISCH_ITS ---
Discharge - Discharge Orders Referrals: Raheel Gongora MD [ [facility] STAFF PHYSICIAN] - - Discharge Plan Disposition: HOME Condition: Improving Diet:: Normal Diet Equipment/Supplies:: Walker Activity:: Activity as Tolerated - Instructions Additional Instructions: Dr. Gongora s Knee Discharge Instructions Activity: The most important activity is to walk. You should try to take short walks a few times a day. It is important that when resting you work on keeping the knee straight. Avoid putting a pillow behind the knee as this will encourage flexion. Work on range of motion exercises as provided by Physical Therapy. Work on flexion (bending the knee) at least 3 times per day. - Start outpatient physical therapy within 1 week. - You should wear the LINA hose on both legs for 2 weeks. May remove for comfort. Dressing: Keep the surgical dressing in place for at least one week. After the first week it may be removed and replace with light gauze and tape or nothing. It may get wet after 3 days but avoid soaking the dressing. If it gets wet, just lightly pat dry. Medications: - You should take Tylenol as your primary pain control medications - You have been prescribed a stronger pain medication (Oxycodone) for breakthrough pain, take as needed as prescribed. - You will be taking Aspirin 81mg twice a day for DVT prevention unless instructed otherwise. - If you have constipation you should take Colace or Miralax (both over-the- counter). It takes most people 3-4 days to have a bowel movement. - You will be coming to the [facility] Infusion room for once daily antibiotic infusion - Ceftriaxone 2grams. - Make sure to take an [id number]-[id number] probiotic or consume yogurt or other similar dairy products while taking the antibiotics. Follow-up: 2 weeks
--- NOTE | 2017-09-18 08:00 | INDS_ITS ---
PHYSICAL THERAPY INPATIENT DISCHARGE NOTE Date: 09/18/17 Dates of Service:09/14/17-09/17/17 SUBJECTIVE: NT OBJECTIVE: 09/14/17-09/17/17 BED MOBILITY/TRANSFERS: Supine-sit: independent Sit-supine: minAx1 Sit-stand: supervision Stand-sit: supervision Bed-chair: supervision with FWW Chair-bed: supervision with FWW GAIT: supervision with FWW 35ft-70ftx2 WBAT L LE BALANCE: Static sitting: normal Dynamic Sitting: normal Static Standing fair Dynamic Standing fair ASSESSMENT: Pt is a 46yr old female s/p left total knee arthroplasty 07/07/[address] Gongora, admitted for washout and poly exchange of left TKA 09/13/17 in setting of s/p right total knee arthroplasty 12/20/16,obesity, chronic obstructive pulmonary disease, diabetes mellitus, asthma, degenerative joint disease right knee, bilateral sciatica, chronic headaches, anxiety, depression. Patient was seen for 5 PT visits. Pt see above for functional mobility levels at discharge. Pt is being discharged to home today. GOALS 1. supine-sit: independent 2. sit-supine: independent 3. sit-stand: independent 4. Stand-sit: independent 5. Bed-chair: supervision with FWW 6. Chair-bed: supervision with FWW 7. Gait: supervision with FWW 200ft WBAT L LE 8. Up/down 4 steps with railing, supervision WBAT L LE 9. L knee AROM 0-90 Pt met goals # 1, 5, 6, recommend home PT to meet remaining goals DISCHARGE RECOMMENDATIONS Home with , pt has all DME G Codes in the area of mobility and walking around: with projected status GP [id number] and discharge status GP [id number] Idalmis Auguste PT
[2017-09-18] MEDS: Sucralfate 1 GM TAB PO (08:07)
[2017-09-18] MEDS: Gabapentin 300 MG CAP 600 MG PO (08:07)
[2017-09-18] MEDS: metFORMIN 500 MG TAB 1000 MG PO (08:07)
[2017-09-18] MEDS: Acetaminophen 500 MG TAB 1000 MG PO (08:07)
[2017-09-18] MEDS: Esomeprazole 40 MG CAPCR PO (08:07)
[2017-09-18] MEDS: Aspirin E.C. 81 MG TABEC PO (08:07)
[2017-09-18] MEDS: Cetirizine 10 MG TAB PO (08:08)
[2017-09-18] MEDS: FLUoxetine 20 MG CAP 60 MG PO (08:08)
[2017-09-18 08:13] VITALS: BP 128/85; PULSE 87; RESP 20; TEMP 37; O2SAT 97
[2017-09-18 08:22] LABS: C-Reactive Protein 2.96 mg/dL (0.0-0.3)
[2017-09-18] MEDS: Budesonide/Formoterol 160/4.5 6 GM 60 PUFF INH IH (09:47)
--- NOTE | 2017-09-18 10:41 | PDOC.CMDIS ---
LACE Index Scoring Tool - Questions: Length of Stay (in days): 4 - 6 Acuity (Admit via E.D.?): No Comorbidities: Diabetes w/o Complication, Chronic Pulmonary Disease E.D. Visits: 0 - Answers: Total Score: 7 Risk of Readmission: Low Risk Care Management Discharge Reason for Hospitalization: Infected (L) TKA Discharge Plan: Barbara will discharge home when ready per MD. She will have daily infusion therapy at [facility], per MD. She will participate in OP/PT. Barbara will follow up with Dr. Gongora, her PCP and her plan of care as prescribed. She will transport home via private vehicle with her . Patient/Family Education Needs: Review discharge instructions, follow up plan of care. Services Needed at Discharge: Infusion Therapy ([facility]), Outpatient Therapy (Physical Therapy)
--- NOTE | 2017-09-18 10:51 | CMDISCH_ITS ---
LACE Index Scoring Tool - Questions: Length of Stay (in days): 4 - 6 Acuity (Admit via E.D.?): No Comorbidities: Diabetes w/o Complication, Chronic Pulmonary Disease E.D. Visits: 0 - Answers: Total Score: 7 Risk of Readmission: Low Risk Care Management Discharge Reason for Hospitalization: Infected (L) TKA Discharge Plan: Barbara will discharge home when ready per MD. She will have daily infusion therapy at [facility], per MD. She will participate in OP/PT. Barbara will follow up with Dr. Gongora, her PCP and her plan of care as prescribed. She will transport home via private vehicle with her . Patient/Family Education Needs: Review discharge instructions, follow up plan of care. Services Needed at Discharge: Infusion Therapy ([facility]), Outpatient Therapy ( Physical Therapy)
--- NOTE | 2017-10-16 09:31 | DSE_ITS ---
DATE OF ADMISSION: September 13, 2017 DATE OF DISCHARGE: September 18, 2017 DISCHARGE DIAGNOSIS: Infected left total knee arthroplasty. PROCEDURE: September 13, 2017 - Open irrigation and debridement, synovectomy, polyethylene exchange of th e left knee. HISTORY OF PRESENT ILLNESS: Fay is a 47-year-old who underwent a left knee replacement nearly three months ago. She had difficulties with gaining extension and flexion and a polyethylene exchange was performed. Following this procedure she did develop increasing pain, stiffness, and swelling and she was diagnosed with an infected total knee. She was brought immediately into the operating room for the above procedure and this admission. HOSPITAL COURSE: Fay was transferred to the Medical/Surgical floor following her procedure. She francis erated the procedure well. Her pain was improved from the preoperative status. She was started on p ostoperative antibiotics including Vancomycin for MRSA coverage. By postop day #1 her cultures had returned MSSA and therefore she was switched to Ceftriaxone. A PICC line was placed on postop day #2 . Her blood cultures were negative. Her postoperative hemoglobin did drop to 6.6 on postop day #2 a nd therefore she was transfused two units with a discharge hemoglobin of 8.8 on 09/17. Her discharge CRP went from 7.33 to 2.96. Her vital signs were stable and she was afebrile. She was able to mobil ize with minimal assistance. DISCHARGE DISPOSITION: Home with daily hospital infusion. DISCHARGE CODE STATUS: Full Code. DISCHARGE MEDICATIONS: 1. Oxycodone 5 mg p.o. q4h p.r.n. 2. Acetaminophen 1000 mg p.o. t.i.d. p.r.n. 3. Ceftriaxone 2 grams q24h. 4. Aspirin 81 mg p.o. b.i.d. FOLLOW-UP: Two weeks.
== END 2017-09-18 10:36 | disposition home or self-care (01) | DRG 467 ==
PROVIDERS: Admitting Provider Student in an Organized Health Care Education/Training Program; Visit Provider Student in an Organized Health Care Education/Training Program
DX: T84.54XA Infection and inflammatory reaction due to internal left knee prosthesis, initial encounter (principal); M00.062 Staphylococcal arthritis, left knee; D62 Acute posthemorrhagic anemia; B95.61 Methicillin susceptible Staphylococcus aureus infection as the cause of diseases classified elsewhere; M23.8X2 Other internal derangements of left knee; M65.162 Other infective (teno)synovitis, left knee
CPT/HCPCS: 27486; 27334; 36415 ×4; 80048 ×2; 86140 ×4; 83036; 86920; 86901; 86850; 86900; 85027 ×5; 87070 ×3; 87205 ×3; 87040 ×2; 36569; 94640 ×5; 97530 ×4; 97110 ×4; J0690; J1885 ×20; J2405 ×2; J2250; J1100; J2060; J3010; P9016 ×2; 36430; 80202; J0131

== ENCOUNTER 2017-09-20 02:17 | Outpatient (RCR) | payer MEDICARE, SELFPAY ==
[2017-09-20] MEDS: Normal Saline Flush 10 ML SYR IVP (13:00)
[2017-09-21] MEDS: Normal Saline Flush 10 ML SYR IVP (12:08)
[2017-09-22] MEDS: Normal Saline Flush 10 ML SYR IVP (11:31)
[2017-09-23] MEDS: Normal Saline Flush 10 ML SYR IVP (12:01)
[2017-09-24] MEDS: Normal Saline Flush 10 ML SYR IVP (11:50)
[2017-09-25] MEDS: Normal Saline Flush 10 ML SYR IVP (11:50)
[2017-09-26] MEDS: Normal Saline Flush 10 ML SYR IVP (11:33)
[2017-09-27] MEDS: Normal Saline Flush 10 ML SYR IVP ×2 (09:00→12:06)
[2017-09-27 09:44] LABS: ALT 16 U/L (12-78); AST 19 U/L (15-37); Alkaline Phosphatase 75 U/L (46-116); Anion Gap 12.1 mmol/L (3-11); BUN 10 mg/dL (7-18); Bilirubin, Total 0.6 mg/dL (0.2-1.0); C-Reactive Protein 1.68 mg/dL (0.0-0.3); CO2 21.9 mmol/L (21.0-32.0); CREATININE 0.75 mg/dL (0.55-1.02); Calcium 9.2 mg/dL (8.5-10.1); Chloride 103 mmol/L (98-107); Glucose 133 mg/dL (70-100); Potassium 3.9 mmol/L (3.5-5.1); Sodium 137 mmol/L (136-145); Total Protein 8.3 g/dL (6.4-8.2)
[2017-09-28] MEDS: Normal Saline Flush 10 ML SYR IVP (11:50)
[2017-09-29] MEDS: Normal Saline Flush 10 ML SYR IVP (11:40)
[2017-09-30] MEDS: Normal Saline Flush 10 ML SYR IVP (11:47)
[2017-10-01] MEDS: Normal Saline Flush 10 ML SYR IVP (11:44)
[2017-10-02] MEDS: Normal Saline Flush 10 ML SYR IVP (11:27)
[2017-10-03] MEDS: Normal Saline Flush 10 ML SYR IVP (11:20)
[2017-10-04] MEDS: Normal Saline Flush 10 ML SYR IVP (11:29)
[2017-10-05] MEDS: Normal Saline Flush 10 ML SYR IVP (11:41)
[2017-10-06] MEDS: Normal Saline Flush 10 ML SYR IVP (11:26)
[2017-10-07] MEDS: Normal Saline Flush 10 ML SYR IVP (11:19)
[2017-10-08] MEDS: Normal Saline Flush 10 ML SYR IVP (11:44)
[2017-10-09] MEDS: Normal Saline Flush 10 ML SYR IVP (11:26)
[2017-10-10] MEDS: Normal Saline Flush 10 ML SYR IVP (11:22)
[2017-10-11] MEDS: Normal Saline Flush 10 ML SYR IVP (11:31)
[2017-10-12] MEDS: Normal Saline Flush 10 ML SYR IVP (11:24)
[2017-10-13] MEDS: Normal Saline Flush 10 ML SYR IVP (11:13)
[2017-10-14] MEDS: Normal Saline Flush 10 ML SYR IVP (11:42)
[2017-10-15] MEDS: Normal Saline Flush 10 ML SYR IVP (11:23)
[2017-10-16] MEDS: Normal Saline Flush 10 ML SYR IVP ×2 (07:20→11:38)
[2017-10-16 07:50] LABS: Abs Immature Grans 0.03 k/cumm (0.0-0.09); Absolute Basophil Count 0.02 k/cumm (0.0-0.2); Absolute Eosinophil Count 0.27 k/cumm (0.0-0.7); Absolute Monocyte Count 0.79 k/cumm (0.11-0.7); Absolute Neutrophil Count 4.27 k/cumm (1.2-6.7); Basophils % 0.3; Eosinophils % 3.4; HCT 32.8 % (36.0-46.0); HGB 10.1 g/dL (12.0-15.5); Immature Grans % 0.4; Lymphocytes % 31.7; Mean Corp. HGB Concentration 30.8 g/dL (32.0-36.0); Mean Corpuscular Hemoglobin 29.3 pg (27.0-33.0); Mean Corpuscular Volume 95.1 fL (80-95); Neutrophils % 54.2; Platelet Count 357 x1000/uL (130-400); RBC 3.45 m/cumm (4.00-5.20); White Blood Cell Count 7.88 k/cumm (4.4-10.8)
[2017-10-16 08:02] LABS: ALT 13 U/L (12-78); AST 11 U/L (15-37); Alkaline Phosphatase 74 U/L (46-116); Anion Gap 7.1 mmol/L (3-11); BUN 13 mg/dL (7-18); Bilirubin, Total 0.3 mg/dL (0.2-1.0); C-Reactive Protein 1.35 mg/dL (0.0-0.3); CO2 24.9 mmol/L (21.0-32.0); CREATININE 0.74 mg/dL (0.55-1.02); Calcium 8.5 mg/dL (8.5-10.1); Chloride 103 mmol/L (98-107); Glucose 170 mg/dL (70-100); Potassium 3.6 mmol/L (3.5-5.1); Sodium 135 mmol/L (136-145); Total Protein 7.8 g/dL (6.4-8.2)
[2017-10-16 09:39] LABS: ESR 48 MM/HR (0-20)
[2017-10-17] MEDS: Normal Saline Flush 10 ML SYR IVP (11:29)
[2017-10-18] MEDS: Normal Saline Flush 10 ML SYR IVP (11:26)
== END 2017-10-20 ==
LOC: INF 12:04
PROVIDERS: Visit Provider Student in an Organized Health Care Education/Training Program
DX: T84.54XA Infection and inflammatory reaction due to internal left knee prosthesis, initial encounter (principal); M00.062 Staphylococcal arthritis, left knee; Z96.652 Presence of left artificial knee joint
CPT/HCPCS: 36592 ×2; 96365 ×27; 20610; 80053; 85652; 85025; 86140

== ENCOUNTER → 2017-09-27 08:15 | Outpatient (CLI) | payer MEDICARE, SELFPAY | PROVIDERS: Visit Provider Student in an Organized Health Care Education/Training Program | DX: T84.54XA Infection and inflammatory reaction due to internal left knee prosthesis, initial encounter (principal); Z96.652 Presence of left artificial knee joint; M25.562 Pain in left knee | CPT/HCPCS: 20610 ==

== ENCOUNTER → 2017-10-04 10:00 | Outpatient (CLI) | payer MEDICARE, SELFPAY | PROVIDERS: Visit Provider Orthopaedic Surgery | DX: T84.54XA Infection and inflammatory reaction due to internal left knee prosthesis, initial encounter (principal); Z96.652 Presence of left artificial knee joint; M25.562 Pain in left knee | CPT/HCPCS: 20610 ==

== ENCOUNTER → 2017-10-04 12:26 | Outpatient (REF) | payer MEDICARE, SELFPAY ==
[2017-10-04 14:00] LABS: Clarity CLOUDY; Mononuclear Cells 6 % (0-0); Nucleated Cells 19315 /MM3 (0-0); Polynuclear Cells 94 % (0-0); Source L KNEE
== END ==
LOC: LBN 12:26
PROVIDERS: Visit Provider Orthopaedic Surgery
DX: T84.54XA Infection and inflammatory reaction due to internal left knee prosthesis, initial encounter (principal)
CPT/HCPCS: 87070; 87205; 89051

== ENCOUNTER → 2017-10-16 08:45 | Outpatient (CLI) | payer MEDICARE, SELFPAY | PROVIDERS: Visit Provider Student in an Organized Health Care Education/Training Program | DX: T84.54XD Infection and inflammatory reaction due to internal left knee prosthesis, subsequent encounter (principal); Z96.652 Presence of left artificial knee joint; M25.562 Pain in left knee ==

== ENCOUNTER 2017-10-19 08:33 | Inpatient (IN) | payer MEDICARE, SELFPAY ==
[2017-10-19] VITALS (20 sets, daily range): BP systolic 58–113; BP diastolic 31–80; PULSE 93–129; RESP 14–20; TEMP 36–38.2; O2SAT 95–100
[2017-10-19] MEDS: FAMOTIDINE 20 MG/50 ML BAG 100 MG IVPB (08:00)
[2017-10-19] MEDS: Lactated Ringers 1,000 ML 80 ML IV ×2 (09:49→18:55)
[2017-10-19] MEDS: Bupivacaine 0.5% Pres-Free 30 ML VIAL (11:20)
[2017-10-19] MEDS: Lactated Ringers 1,000 ML 2100 ML IV (12:18)
--- NOTE | 2017-10-19 15:06 | NT_ITS ---
PHYSICAL THERAPY NOTE 10/19/17 PT Consult received, chart reviewed. Pt not yet on medical floor to be able to participate in PT consult. Will complete eval in am Idalmis Auguste PT
[2017-10-19] MEDS: Bupivacaine 0.25% Pres-Free 30 ML VIAL 60 ML (15:31)
[2017-10-19] MEDS: Normal Saline - Diluent 50 ML VIAL IJ (15:31)
[2017-10-19] MEDS: Ketorolac 30 MG/ML VIAL (15:31)
[2017-10-19] MEDS: Ondansetron 4 MG/2 ML VIAL IVP ×2 (16:24→22:31)
--- NOTE | 2017-10-19 16:27 | DI.REPORT_ITS ---
SYMPTOM/DIAGNOSIS: S/P LT TKA, EXPLANT AND SPACER PLACEMENT LEFT KNEE: Two views. Comparison is made with 08/09/17. Since the prior examination, the orthopedic hardware has been removed and a spacer has been placed. The orthopedic hardware appears in good position. The bones appear intact. Skin ced are present. There is air seen in the soft tissues likely post surgical in nature. IMPRESSION: Interval removal of the patient's total knee replacement with spacer placement.
--- NOTE | 2017-10-19 16:43 | DI.VRAD_ITS ---
EXAM: XR Left Knee, 1 or 2 Views EXAM DATE/TIME: 10/19/2017 12:10 PM CLINICAL HISTORY: 47 years old, female; Signs and symptoms; Other: S/P lt tka explant and spacer plant. ; Patient HX: Infected l tka TECHNIQUE: XR Left knee 1 or 2 views. COMPARISON: CR - LEFT KNEE LIMITED 1 OR 2 VIEWS 08/09/2017 2:37 PM FINDINGS: Bones/joints: Normal. Soft tissues: Postsurgical changes as soft tissue edema and emphysema of the soft tissues. Skin ced. Other findings: The implant appears in good anatomical position. IMPRESSION: Postsurgical changes. Dictated and Authenticated by: Anthony Ricketts MD. Ordering:CAMPOS STAPLETON MD
[2017-10-19 16:52] LABS: HCT 25.6 % (36.0-46.0); HGB 7.9 g/dL (12.0-15.5)
[2017-10-19] MEDS: Gabapentin 300 MG CAP 600 MG PO (19:21)
[2017-10-19] MEDS: Budesonide/Formoterol 160/4.5 6 GM 60 PUFF INH IH (19:22)
[2017-10-19] MEDS: Insulin Aspart 300 UNITS/3 ML PEN SC (19:45)
[2017-10-19] MEDS: metFORMIN 500 MG TAB PO (19:46)
[2017-10-19] MEDS: oxyCODONE 5 MG TAB PO (21:06)
[2017-10-19] MEDS: Albuterol 2.5 MG/3 ML INH SOLN VIAL UPD (21:07)
[2017-10-19] MEDS: Montelukast 10 MG TAB PO (21:30)
--- NOTE | 2017-10-19 21:45 | ROE_ITS ---
DATE OF SURGERY: October 19, 2017 PREOPERATIVE DIAGNOSIS: Infected left total knee arthroplasty. POSTOPERATIVE DIAGNOSIS: Same. SURGERY: Explantation of left knee arthroplasty with placement of cement spacer. SURGEON: Raheel Gongora M.D. COMMERCIAL CONSTRUCTION ESTIMATOR: Mynor Durant PA-C, and Marilee Coughlin PA-C ANESTHESIA: General, with femoral nerve block. FINDINGS: There was some synovitis seen throughout the knee but it was much better in regard to tiss ue quality when compared to the last surgery five weeks ago. The tibial and femoral components were able to be removed with minimal bone loss. The cement was removed in total. The patellar component was also removed. Serial irrigation with 9 liters of saline was performed as well as debridement of all areas of necrotic or affected tissue. An articulating cement spacer was placed. ESTIMATED BLOOD LOSS: 1 liter. COMPLICATIONS: None. DISPOSITION: The patient was awakened from anesthesia and taken to the PACU in a stable condition. INDICATION FOR PROCEDURE: Fay is a 47-year-old who underwent knee replacement on the left side [facility] by an open exchange of the polyethylene. Unfortunately, she became infected. Irrigation and de bridement with an open synovectomy was performed first. Unfortunately, she had persistent pain and d ysfunction. Her CRP plateaued at 1.5. After discussing possible treatment options with Fay she mulugeta red to proceed with a component explant and spacer placement. I reviewed the risks of the procedure to include continued infection, pain, stiffness, instability, damage to nerves and vessels, damage to muscles and tendons, and blood clot. Despite these risks, she elected to proceed. PROCEDURE DESCRIPTION: Fay was greeted in the Preoperative Holding Area. Her identity was confirmed and the correct side was identified and marked. The consent was reviewed with the patient and david blanco. History and Physical was updated. She was taken to the PACU first for placement of a femoral nerve block. She was then brought back to the Operating Room and placed in a supine position. All bony prominences were well padded. Bumps w ere placed to support the left leg. A Mukherjee catheter was placed. Prophylactic antibiotics in the fo rm of cefazolin were administered. Tranexamic acid was also given. A time-out was performed for saf e surgery. The left leg was prepped with ChloraPrep and draped in a standard fashion. The previous incision was opened up sharply down to the extensor mechanism. Soft tissue flaps were raised medially and latera lly. The previous arthrotomy site was seen and then this was incised sharply in a full-thickness man ner. I then performed a peel around the proximal tibia to expose the tibial component. An aggressiv e synovectomy was performed both medially and laterally. Areas where the synovium was unable to be t aken as a solid flap, I used a rongeur to remove any necrotic-appearing tissue. In general, tissue q uality was much better than it was five weeks ago. The quadriceps tendon itself appeared to be in mu ch better shape and the tissue itself was not very friable. Excess synovium was removed around the i mplants for better visualization. Using thin flexible osteotomes I then proceeded with removal of the tibial component first. Separati ng the interface between the cement and the tibial component was performed. This was working mediall y to laterally and then from anterior to posterior. Once a large portion of the cement was from around the implant, a bone tamp was used to elevate the tibia. This was done without difficult y and it was able to be removed. There was very minimal cement attached to the tibial component. Us ing a series of osteotomes and rongeurs I then removed the remainder of the cement from the tibia. T here was some bone taken with the cement as had to happen, but there was no excessive bone loss. The re was no fracture. We then focused on the femur. In a similar fashion, thin flexible osteotomes were used to undermine the implant supporting the bone from the cement. Once we had done all aspects of the femoral compone nt in this manner, a bone tamp was used from proximal to distal to remove the femoral component. We did lose some bone around the peg of the lateral femoral condyle. However, the condyle itself was in tact. There was no other fracture noted. Again, the cement was removed from all of the holes includ ing the notch and also all surfaces of the femur. Another debridement was performed around the tibia and femur. The canals were scraped out with an angled curette. I then irrigated the knee with 9 li ters of normal saline. We had good bleeding surfaces at this point. The extension gap was measured for later sizing. The [facility] articular spacer components were then bobo ures and sized as a medium femur and a small tibia. These were opened on the back table. Approximat jone four batches of gentamicin-laden cement were mixed along with a total of 8 grams of vancomycin po wder. These were used for filling the tibial mold up to the desired measurement of 10 mm, as well as the femoral mold. Once it got to the late doughy stage, the femoral mold was then implanted onto th e femur and held in place. Once the cement had fully cured the mold cover was removed. The tibial c omponent was then removed out of its mold as well and it was inserted to make sure that appropriate t hickness was obtained. We were able to get full extension although it was a little tighter than I wo uld like. Another batch of antibiotic-laden cement was then prepared with 1 gram of vancomycin. Thi s was mixed on the back table and then prepared to fill the space by the keel. This was molded and t aken in and out of the wound a few times to make sure it did not set too early in the bone. Once it became into the late doughy phase, the tibial component was attached to it and it was inserted into t he tibia and the leg was brought into extension. It was left there for the full curing process. A saw was used to remove the patellar button and to remove the plastic, and then a series of rongeurs and curettes were used to remove the remainder of the cement including the cement within the plug ho les of the patella. This was thorough irrigated with another 3 liters of normal saline. The knee wa s then tested and had great range of motion from 0 to about 85 degrees. The deep tissues of the knee were injected with 0.25% Marcaine. The arthrotomy was closed with a #1 PDS. The deep tissues were closed with a #0 and #2-0 PDS. The skin was closed with ced. The knee was placed into a knee im mobilizer after dressing the wound with Xeroform, 4x4s, ABDs, Kerlix, and an CHICHO wrap. She was trans ferred over to the hospital bed suffering no notable complications except for the blood loss. There was no significant bleeding encountered during the case but a persistent ooze from all the bony surfa arvind. We will obtain a hemoglobin in the PACU. She will be touchdown weightbearing on the left lower extremity and we will use rivaroxaban for antic oagulation. We will start Physical Therapy tomorrow.
[2017-10-19] MEDS: Acetaminophen 500 MG TAB 1000 MG PO (22:30)
[2017-10-19] MEDS: Cyclobenzaprine 10 MG TAB 5 MG PO (22:31)
[2017-10-20] VITALS (14 sets, daily range): BP systolic 98–121; BP diastolic 58–77; PULSE 87–108; RESP 15–20; TEMP 36.2–37.8; O2SAT 95–100
[2017-10-20] MEDS: Ketorolac 15 MG/ML VIAL IVP ×5 (00:24→23:21)
[2017-10-20] MEDS: oxyCODONE 5 MG TAB PO ×5 (04:29→21:10)
[2017-10-20] MEDS: Lactated Ringers 1,000 ML 80 ML IV (06:25)
[2017-10-20 06:58] LABS: HCT 22.7 % (36.0-46.0); Mean Corp. HGB Concentration 30.8 g/dL (32.0-36.0); Mean Corpuscular Hemoglobin 29.4 pg (27.0-33.0); Mean Corpuscular Volume 95.4 fL (80-95); Mean Platelet Volume 9.8 fL (8.0-11.0); Platelet Count 263 x1000/uL (130-400); RBC 2.38 m/cumm (4.00-5.20); RBC Distribution Width 14.5 % (11.7-14.6); White Blood Cell Count 8.26 k/cumm (4.4-10.8)
[2017-10-20 07:11] LABS: ALT 13 U/L (12-78); AST 14 U/L (15-37); Albumin 2.2 g/dL (3.4-5.0); Alkaline Phosphatase 44 U/L (46-116); BUN 10 mg/dL (7-18); Bilirubin, Total 0.2 mg/dL (0.2-1.0); C-Reactive Protein 1.63 mg/dL (0.0-0.3); CREATININE 0.67 mg/dL (0.55-1.02); Chloride 104 mmol/L (98-107); Glucose 141 mg/dL (70-100); Potassium 3.7 mmol/L (3.5-5.1); Sodium 137 mmol/L (136-145); Total Protein 5.5 g/dL (6.4-8.2)
[2017-10-20 07:22] LABS: Calcium 7.9 mg/dL (8.5-10.1)
[2017-10-20] MEDS: Acetaminophen 500 MG TAB 1000 MG PO ×3 (07:45→23:29)
[2017-10-20] MEDS: Sucralfate 1 GM TAB PO ×2 (07:45→16:07)
[2017-10-20] MEDS: Magnesium Oxide 400 MG TAB PO (07:54)
[2017-10-20] MEDS: FLUoxetine 20 MG CAP 60 MG PO (07:54)
[2017-10-20] MEDS: metFORMIN 500 MG TAB PO ×2 (07:54→17:03)
[2017-10-20] MEDS: Gabapentin 300 MG CAP 600 MG PO ×2 (07:54→19:41)
[2017-10-20] MEDS: Rivaroxaban 10 MG TABLET PO (07:54)
[2017-10-20] MEDS: Esomeprazole 40 MG CAPCR PO (07:54)
[2017-10-20] MEDS: Cetirizine 10 MG TAB PO (07:54)
[2017-10-20] MEDS: diphenhydrAMINE 25 MG CAP PO (07:56)
--- NOTE | 2017-10-20 08:26 | PROG.BLANK_ITS ---
Date of Service: 10/20/17 Time of Service: 08:08 Progress Note S - Fay reports pain in the knee, primarily posteriorly. She has been keeping the knee immobilizer in place but did have a pillow posteriorly. She received one unit of blood yesterday, post-operatively. She has had a headache and complains of pain in the left foot. She denies any chills but did have a low- grade fever. No N/V. O - MIld tachycardia, improving. Tmax of 38.1. Stable BP. LLE dressing intact. KI intact. +ADF/APF/EHL/FHL SILT DP/SP/Tib Imaging: Post-op knee shows appropriate positioning of the spacer. No fracture. Labs: Laboratory Last Values WBC 8.26 k/cumm (4.4-10.8) 10/20/17 06:20 RBC 2.38 m/cumm (4.00-5.20) L 10/20/17 06:20 Hgb 7.0 g/dL (12.0-15.5) L 10/20/17 06:20 Hct 22.7 % (36.0-46.0) L 10/20/17 06:20 MCV 95.4 fL (80-95) H 10/20/17 06:20 MCH 29.4 pg (27.0-33.0) 10/20/17 06:20 MCHC 30.8 g/dL (32.0-36.0) L 10/20/17 06:20 RDW 14.5 % (11.7-14.6) 10/20/17 06:20 Plt Count 263 x1000/uL (130-400) 10/20/17 06:20 MPV 9.8 fL (8.0-11.0) 10/20/17 06:20 Sodium 137 mmol/L (136-145) 10/20/17 06:20 Potassium 3.7 mmol/L (3.5-5.1) 10/20/17 06:20 Chloride 104 mmol/L (98-107) 10/20/17 06:20 Carbon Dioxide 29.0 mmol/L (21.0-32.0) 10/20/17 06:20 Anion Gap 4.0 mmol/L (3-11) 10/20/17 06:20 BUN 10 mg/dL (7-18) 10/20/17 06:20 Creatinine 0.67 mg/dL (0.55-1.02) 10/20/17 06:20 Estimated GFR/1.73 m2 >= 60.00 (mL/min/1.73m2) 10/20/17 06:20 Glucose 141 mg/dL (70-100) H 10/20/17 06:20 Calcium 7.9 mg/dL (8.5-10.1) L 10/20/17 06:20 Total Bilirubin 0.2 mg/dL (0.2-1.0) 10/20/17 06:20 AST 14 U/L (15-37) L 10/20/17 06:20 ALT 13 U/L (12-78) 10/20/17 06:20 Alkaline Phosphatase 44 U/L (46-116) L 10/20/17 06:20 C-Reactive Protein 1.63 mg/dL (0.0-0.3) H 10/20/17 06:20 Total Protein 5.5 g/dL (6.4-8.2) L 10/20/17 06:20 Albumin 2.2 g/dL (3.4-5.0) L 10/20/17 06:20 Patient ABO/Rh A Positive 10/19/17 09:34 Antibody Screen Negative 10/19/17 09:34 Crossmatch See Detail 10/19/17 09:34 A/P - Fay is s/p explant of L TKA. She has acute post-operative blood loss anemia. We will transfuse another unit this AM. We will continue with the oral pain regime. Knee immobilizer while in the bed. She may bend the knee for exercise and mobility but I want the KI in place to promote knee extension. She is also hypoalbuminemic so I will request diet consult and increase in protein in diet. Continue Ceftriaxone. Rivaroxaban for DVT prevention.
[2017-10-20] MEDS: Normal Saline Flush 10 ML SYR IV ×3 (08:30→18:33)
--- NOTE | 2017-10-20 08:36 | NT_ITS ---
PHYSICAL THERAPY NOTE 10/20/17 Pt with HGB 7.0, to receive blood transfusion this am. requested PT consult start this pm. Idalmis Auguste PT
--- NOTE | 2017-10-20 08:44 | NUR.NOTE ---
Nursing Note: PT TO RECIEVE 1 UNIT OF PRBC PER ORDERS. PT PREMEDICATED ORDERED. VSS, AFEB. PICC TO RU PATENT W/GOOD BLOOD RETURN. COSENT SIGNED, RED BAND VERIFIED.
[2017-10-20] MEDS: Budesonide/Formoterol 160/4.5 6 GM 60 PUFF INH IH ×2 (09:00→19:41)
[2017-10-20] MEDS: Levalbuterol HFA 15 GM INH 2 PUFF IH (09:01)
--- NOTE | 2017-10-20 10:25 | PHARADMIT ---
Addendum entered by Evangelina Bañuelos 10/22/17 10:36: Pharmacy Note Subjective Explantation of left knee arthroplasty with placement of cement spacer done 10/19/17 Objective vs ok, left knee culture;Propionbacterium Acnes. Assessment ceftriaxone IV continues Plan possibly discharge today Original Note: Admission Pharmacy Clinical Review Infected LEFT TOTAL KNEE Code Status Full Code Current Weight Wgt- 83 kg Renally Cleared and Narrow Therapeutic Index Meds CrCl~71.14 mL/min Meds-OK QTc Value / Action Taken QTc-405 na BP Control, Fever BP- 113/75 Tmax-37.9C Electrolytes reviewed Na- 137 K+3.7 DVT Prophylaxis Xarelto Opiate Usage / Scheduled Bowel Regimen Ordered Yes Yes Plt/SCr for Heparin / Enoxaparin Plts-263 SCr-0.67 INR for Warfarin NA H/H stable, WBC/Bands H&H- 7.0/22.7 WBC-8.26 Antibiotic appropriateness Rocephin Cultures and Sensitivities NONE Surgical ABX d/c within 24 hr NA DM control / Insulin Dosing BG- 141 Aspart, Metformin Heart Failure (Check EF%) (CHICHO's, B-Block, Diuretics) PHENTLEPHRINE DRIP, IV to PO Switch No Home Meds Reviewed Yes Home Meds Not Ordered Lactase, Nystatin, Rifampin TAC cRM Comments
--- NOTE | 2017-10-20 12:04 | PDOC.CMIN ---
Care Management Initial Assess REASON FOR HOSPITALIZATION:: Infected (L) TKA PAST MEDICAL HISTORY/PAST SURGICAL HISTORY:: Asthma, COPD, Depression, Diabetes, GERD, Cholecystectomy, Hysterectomy, Multiple fundal plications, 4 hernia repairs, Bilateral knee arthroscopies, RTKR, (L) Knee arthroscopy, s/p L TKA explant and cement spacer placement. PREVIOUS FUNCTIONAL STATUS/SOCIAL/FAMILY SUPPORTS:: Antonia resides in [place] with her , Mckinley. She is independent with all ADLs in the community and has disability support due to knee and back problems. CURRENT FUNCTIONAL STATUS:: Barbara was lying in bed having a blood transfusion, visitor at her bedside when CM met with her. She was pleasant in interaction and forthcoming with information. She shared concerns around level of activity and ability, CM reviewed inpatient process and outreach information for support if Barbara feels unsure or has questions. ADVANCE DIRECTIVES:: On file - Mckinley is agent. Has patient been provided with information about the portal?: Yes Did the patient sign up for the portal?: No CODE STATUS:: Full Code INSURANCE COVERAGE / FINANCIAL ISSUES:: Medicare, Financial Asst 100 CURRENT HOME/COMMUNITY SERVICES/EQUIPMENT:: FWW, [place] [facility] [place] daily infusions at [facility]. PRIMARY CARE PHYSICIAN:: Gissell Davis POTENTIAL DISCHARGE NEEDS:: Follow up appointment with Dr. Gongora, and PCP. Coordination of W/C for discharge, likely infusion room coordination. PATIENT/FAMILY EDUCATION NEEDS:: Review of discharge instructions, insurance limitations. Discuss Ask Me Three. ANTICIPATED BARRIERS TO DISCHARGE:: DME equipment: coordination of W/C through [employer] and Medicare TRANSPORTATION:: Via private vehicle with her , Mckinley. PLAN:: Barbara will continue to be closely monitored. She will work with PT and utilize her knee immobilizer and begin working on W/C transfers. CM faxed prescription and W/C DME letter from Dr. Gongora to [place] for review and will await confirmation or notification of further needs. Barbara will likely resume daily infusions at the Infusion Room at [facility] upon discharge and outpatient PT will [facility] Pe[facility] [id number]-XCN/PT. CM will continue to follow and support discharge planning considerations. Barbara will transport via private vehicle with her , Mckinley.
[2017-10-20] MEDS: Butalbital/Acetaminophen/Caffeine 50/325/40 TAB PO (14:08)
[2017-10-20] MEDS: Gabapentin 300 MG CAP PO (14:09)
--- NOTE | 2017-10-20 14:42 | INITIAL_ITS ---
Care Management Initial Assess REASON FOR HOSPITALIZATION:: Infected (L) TKA PAST MEDICAL HISTORY/PAST SURGICAL HISTORY:: Asthma, COPD, Depression, Diabetes , GERD, Cholecystectomy, Hysterectomy, Multiple fundal plications, 4 hernia repairs, Bilateral knee arthroscopies, RTKR, (L) Knee arthroscopy, s/p L TKA explant and cement spacer placement. PREVIOUS FUNCTIONAL STATUS/SOCIAL/FAMILY SUPPORTS:: Antonia resides in [place] with her , Mckinley. She is independent with all ADLs in the community and has disability support due to knee and back problems. CURRENT FUNCTIONAL STATUS:: Barbara was lying in bed having a blood transfusion, visitor at her bedside when CM met with her. She was pleasant in interaction and forthcoming with information. She shared concerns around level of activity and ability, CM reviewed inpatient process and outreach information for support if Barbara feels unsure or has questions. ADVANCE DIRECTIVES:: On file - Mckinley is agent. Has patient been provided with information about the portal?: Yes Did the patient sign up for the portal?: No CODE STATUS:: Full Code INSURANCE COVERAGE / FINANCIAL ISSUES:: Medicare, Financial Asst 100 CURRENT HOME/COMMUNITY SERVICES/EQUIPMENT:: FWW, [place] [facility] [place] infusions at [facility]. PRIMARY CARE PHYSICIAN:: Gissell Davis POTENTIAL DISCHARGE NEEDS:: Follow up appointment with Dr. Gongora, and PCP. Coordination of W/C for discharge, likely infusion room coordination. PATIENT/FAMILY EDUCATION NEEDS:: Review of discharge instructions, insurance limitations. Discuss Ask Me Three. ANTICIPATED BARRIERS TO DISCHARGE:: DME equipment: coordination of W/C through [place] and Medicare TRANSPORTATION:: Via private vehicle with her , Mckinley. PLAN:: Barbara will continue to be closely monitored. She will work with PT and utilize her knee immobilizer and begin working on W/C transfers. CM faxed prescription and W/C DME letter from Dr. Gongora to [place] for review and will await confirmation or notification of further needs. Barbara will likely resume daily infusions at the Infusion Room at [facility] upon discharge and outpatient PT will [facility] Pe[facility] Fduhpvjghp-[id number]-KNK/PT. CM will continue to follow and support discharge planning considerations. Barbara will transport via private vehicle with her , Mckinley.
--- NOTE | 2017-10-20 15:18 | IN_ITS ---
INPATIENT PHYSICAL THERAPY EVALUATION Date: 10/20/17 Referring Doctor: Raheel Gongora PT Orders: PT Consult: s/p L TKA explant and cement spacer placement. TDWB L LE. Knee immobilizer to encourage extension Precautions: TDWB LLE, knee immobilizer in bed, can be removed for transfers per MD, allow slight flexion of the knee no active flexion by PT PATIENT PROFILE/ADMITTING DIAGNOSIS: Pt is a 47yr old female s/p left total knee arthroplasty 07/07/[address] Gongora, admitted for explant and cement spacer placement PMHX: left total knee arthroplasty, right total knee arthroplasty, obesity, chronic obstructive pulmonary disease, diabetes mellitus, asthma, degenerative joint disease right knee, bilateral sciatica, chronic headaches, anxiety, depression, gastroesophageal reflux disease, cholecystectomy, hysterectomy, 4 hernia repairs Social History/Home Situation: Lives with in a trailer, 4 steps with railing to enter, baseline mobility independent gait with no device, independent with ADLS Equipment owned/DME: FWW SUBJECTIVE: Pt lying in bed, agreeable to PT Consult. Pt lying with left LE flexed on pillows, pt instructed to avoid pillow under left knee and place instead under left calf to promote passive knee extension in bed. Pt verbalized understanding. OBJECTIVE: General Observation: knee immobilizer left leg Mental Status: A& O x3 Pain: c/o mild pain anterior left ankle, using ice pack BED MOBILITY/TRANSFERS: Supine-sit: HOB 35 degrees, minAx1 for L LE Sit-stand: SBA with FWW Stand-sit: SBA Sit-supine: Vu for L LE GAIT: SBA with FWW 20ftx2 TDWB L LE BALANCE: Static sitting: normal Dynamic Sitting: normal Static Standing fair Dynamic Standing fair SPECIAL TESTS: Mobility Limitations Standardized Measure [facility] AM -PAC 6 clicks Basic Mobility Inpatient Short Form: raw score: 18 standardized score: 43.63 CMS score: 46.58% CMS modifier: CK INFORMED CONSENT/EDUCATION: Pt instructed in purpose of PT Consult and plan of care. ASSESSMENT: Pt is a 46yr old female s/p left total knee arthroplasty 07/07/[address] Gongora, admitted for explant and cement spacer placement in setting of s/p right total knee arthroplasty 12/20/16,obesity, chronic obstructive pulmonary disease, diabetes mellitus, asthma, degenerative joint disease right knee, bilateral sciatica, chronic headaches, anxiety, depression. Patient presents with the following impairment level findings: decreased strength and ROM right knee, decreased standing balance requiring FWW for gait stability.Pt will benefit from short term therapy intervention for transfer training, strengthening and progressive mobility training. Impairments are contributing to the following functional limitations: AMPAC score CMS score: 46.58% Patient is assessed as a * moderate complexity [id number] based on the following: History: s/p left total knee arthroplasty 07/06/17 with washout and poly exchange 09/14/17 , s/p right total knee arthroplasty 12/20/16,obesity, chronic obstructive pulmonary disease, diabetes mellitus, asthma, degenerative joint disease right knee, bilateral sciatica, chronic headaches, anxiety, depression. Examination: decreased strength and ROM right knee, decreased standing balance requiring FWW for gait stability Presentation: stable Decision Making: AMPAC score CMS score: 46.58% GOALS 1. supine-sit: independent 2. sit-supine: independent 3. sit-stand: independent 4. Stand-sit: independent 5. Bed-chair: supervision with FWW 6. Chair-bed: supervision with FWW 7. Gait: supervision with FWW 30ftx2 WBAT L LE 8. Up/down 4 steps with railing, supervision WBAT L LE PLAN OF CARE/TREATMENT PLAN: 1-2x/day, 7 days/week x 1 week SPINNING FRAME CHANGER instructed in plan of care Initiate physical therapy for strengthening LE's, bed mobility, transfers, gait with FWW, stair training, use of knee immobilizer DISCHARGE RECOMMENDATIONS Home with , pt has all DME TREATMENT TIME/MINUTES/CODES 25min IE 1510 G Codes in the area of mobility and walking around, current status GP [id number] with projected status GP [id number] and discharge status GP [id number] based on AMPAC score CMS score: 46.58% Idalmis Auguste PT
[2017-10-20] MEDS: Insulin Aspart 300 UNITS/3 ML PEN SC (17:02)
[2017-10-20] MEDS: Normal Saline 500 ML 100 ML IV (18:34)
[2017-10-20] MEDS: Albuterol 2.5 MG/3 ML INH SOLN VIAL UPD (20:34)
[2017-10-20] MEDS: Montelukast 10 MG TAB PO (21:04)
[2017-10-20] MEDS: Docusate Sodium 100 MG CAP PO (21:10)
[2017-10-21] MEDS: oxyCODONE 5 MG TAB PO ×4 (03:40→19:37)
[2017-10-21 03:55] VITALS: BP 154/91; PULSE 90; RESP 18; TEMP 37; O2SAT 99
[2017-10-21] MEDS: Ketorolac 15 MG/ML VIAL IVP ×4 (05:50→23:44)
[2017-10-21] MEDS: Budesonide/Formoterol 160/4.5 6 GM 60 PUFF INH IH ×2 (07:10→19:38)
[2017-10-21] MEDS: Magnesium Oxide 400 MG TAB PO (08:30)
[2017-10-21] MEDS: Levalbuterol HFA 15 GM INH 2 PUFF IH ×2 (08:40→15:05)
[2017-10-21] MEDS: metFORMIN 500 MG TAB PO ×2 (08:45→17:04)
[2017-10-21] MEDS: Sucralfate 1 GM TAB PO ×2 (08:45→17:03)
[2017-10-21] MEDS: Esomeprazole 40 MG CAPCR PO (08:45)
[2017-10-21] MEDS: Acetaminophen 500 MG TAB 1000 MG PO ×2 (08:45→19:38)
[2017-10-21] MEDS: Gabapentin 300 MG CAP 600 MG PO ×2 (08:45→19:37)
[2017-10-21] MEDS: Rivaroxaban 10 MG TABLET PO (08:45)
[2017-10-21] MEDS: Cetirizine 10 MG TAB PO (08:45)
[2017-10-21] MEDS: FLUoxetine 20 MG CAP 60 MG PO (08:45)
--- NOTE | 2017-10-21 09:00 | PDOC.CMPRO ---
- If Service Date Differs Date of service: 10/21/17 Time of Service: 09:00 Care Management Progress Note S/O: Fay is lying in bed when this sign writer letterer or painter visits this morning. Fay states that she is feeling tired of being in the hospital and that this is ?just a step to the next procedure?. Fay inquired about the w/c that was ordered. CM contacted [facility], though as it is the weekend they are unable to assist with information in regards to coverage of the w/c. CM contacted [facility] to see if there was a weekend option for a w/c and they state that they are unable to assist on the weekend. CM spoke with Fay and her . Fay states that they have borrowed a w/c from the [facility] before and may be able to again. CM contacted [facility] and they also have a w/c with leg rests available. Fay?s will go to the [employer] today to see if the w/c will work for Fay. Fay states that she is being discharged on 10/22 and that she is ready to return home. She is worried about being non weight bearing and wants to be sure that she will have a w/c to use at home prior to DC. A: 47 yo female with a (L) Total knee P: Fay will return home with no anticipated services. Her to go to [facility] [employer] [facility] today to assess the w/c?s. CM to contact [facility] once CM is alerted of coverage for the w/c. [facility] will transport.
[2017-10-21 09:25] VITALS: BP 122/66; PULSE 67; RESP 16; TEMP 37.1; O2SAT 99
[2017-10-21] MEDS: Butalbital/Acetaminophen/Caffeine 50/325/40 TAB PO (10:50)
[2017-10-21 11:45] VITALS: BP 99/63; PULSE 98; RESP 16; TEMP 37.2; O2SAT 99
[2017-10-21] MEDS: Normal Saline Flush 10 ML SYR IV ×2 (11:55→18:19)
[2017-10-21] MEDS: Insulin Aspart 300 UNITS/3 ML PEN SC ×2 (11:55→17:04)
[2017-10-21] MEDS: Ondansetron 4 MG/2 ML VIAL IVP (12:05)
[2017-10-21] MEDS: Normal Saline 10 ML VIAL IJ (12:05)
[2017-10-21] MEDS: Gabapentin 300 MG CAP PO (13:55)
[2017-10-21] MEDS: Docusate Sodium 100 MG CAP PO (15:05)
[2017-10-21 15:12] LABS: Anion Gap 9.6 mmol/L (3-11); BUN 8 mg/dL (7-18); CO2 23.4 mmol/L (21.0-32.0); Calcium 8.2 mg/dL (8.5-10.1); Chloride 103 mmol/L (98-107); Glucose 151 mg/dL (70-100); Potassium 3.7 mmol/L (3.5-5.1); Sodium 136 mmol/L (136-145)
[2017-10-21 15:13] LABS: HGB 8.6 g/dL (12.0-15.5); Mean Corpuscular Hemoglobin 29.7 pg (27.0-33.0); Mean Corpuscular Volume 93.1 fL (80-95); White Blood Cell Count 10.48 k/cumm (4.4-10.8)
[2017-10-21 15:14] LABS: Mean Corp. HGB Concentration 31.9 g/dL (32.0-36.0); Mean Platelet Volume 10.1 fL (8.0-11.0); Platelet Count 285 x1000/uL (130-400); RBC Distribution Width 15.1 % (11.7-14.6)
[2017-10-21 15:15] VITALS: BP 103/69; PULSE 83; RESP 17; TEMP 36.7; O2SAT 100
--- NOTE | 2017-10-21 17:17 | W.PM.PROGNOT ---
Assessment and Plan (1) Infected prosthetic knee joint: Current visit: Yes Status: Acute Fay is stable after explant of the left TKA. She is still reluctant to move the knee and wants to keep the knee flexed. The wound is benign. The gene analysis performed on the knee shows P. Acnes. We will continue with Ceftriaxone. 2g Daily. She will continue with Rivaroxaban 10mg daily for DVT prevention. Hopeful d/c to home tomorrow. Subjective Interval history since last seen: No new complaints. Her pain is still significant, primarily posterior. Pain medications are helping. No fever or chills. Exam Narrative Exam Narrative: NAD. AAOx3. LLE dressing c/d/i. Dressings are removed and the incision is benign without signs of infection. Reluctant to straight leg raise. Knee is held in about 10 degrees of extension. SILT DP/SP/Tib. Objective Objective Clinical Data: Abnormal lab results 10/21/17 10/21/17 Range/Units 06:45 06:45 RBC 2.90 L (4.00-5.20) m/cumm Hgb 8.6 L (12.0-15.5) g/dL Hct 27.0 L (36.0-46.0) % MCHC 31.9 L (32.0-36.0) g/dL RDW 15.1 H (11.7-14.6) % Glucose 151 H (70-100) mg/dL Calcium 8.2 L (8.5-10.1) mg/dL Vital Signs Temp 36.7 C 10/21/17 15:15 Pulse 83 10/21/17 15:15 Resp 17 10/21/17 15:15 BP 103/69 10/21/17 15:15 Pulse Ox 100 10/21/17 15:15 Intake & Output 10/20/17 10/21/17 10/21/17 23:59 11:59 23:59 Intake Total 2282 / 2282 360 / 360 Output Total 650 / 650 850 / 850 400 / 400 Balance 1632 / 1632 -490 / -490 -400 / -400 Intake: IV 469 / 469 Oral 1500 / 1500 360 / 360 Blood Product 313 / 313 Rbc Leuko Reduced Unit 313 / 313 [id number] Output: Urine 650 / 650 850 / 850 400 / 400 Other: Urine Color Straw Yellow Urine Appearance Clear Clear Urine Odor None Normal Stool Size Large Stool Characteristics Soft Formed Voiding Methods Toilet Toilet Toilet Laboratory Results WBC 10.48 k/cumm (4.4-10.8) 10/21/17 06:45 RBC 2.90 m/cumm (4.00-5.20) L 10/21/17 06:45 Hgb 8.6 g/dL (12.0-15.5) L 10/21/17 06:45 Hct 27.0 % (36.0-46.0) L 10/21/17 06:45 MCV 93.1 fL (80-95) 10/21/17 06:45 MCH 29.7 pg (27.0-33.0) 10/21/17 06:45 MCHC 31.9 g/dL (32.0-36.0) L 10/21/17 06:45 RDW 15.1 % (11.7-14.6) H 10/21/17 06:45 Plt Count 285 x1000/uL (130-400) 10/21/17 06:45 MPV 10.1 fL (8.0-11.0) 10/21/17 06:45 Sodium 136 mmol/L (136-145) 10/21/17 06:45 Potassium 3.7 mmol/L (3.5-5.1) 10/21/17 06:45 Chloride 103 mmol/L (98-107) 10/21/17 06:45 Carbon Dioxide 23.4 mmol/L (21.0-32.0) 10/21/17 06:45 Anion Gap 9.6 mmol/L (3-11) 10/21/17 06:45 BUN 8 mg/dL (7-18) 10/21/17 06:45 Creatinine 0.70 mg/dL (0.55-1.02) 10/21/17 06:45 Estimated GFR/1.73 m2 >= 60.00 (mL/min/1.73m2) 10/21/17 06:45 Glucose 151 mg/dL (70-100) H 10/21/17 06:45 Calcium 8.2 mg/dL (8.5-10.1) L 10/21/17 06:45 Total Bilirubin 0.2 mg/dL (0.2-1.0) 10/20/17 06:20 AST 14 U/L (15-37) L 10/20/17 06:20 ALT 13 U/L (12-78) 10/20/17 06:20 Alkaline Phosphatase 44 U/L (46-116) L 10/20/17 06:20 C-Reactive Protein 1.63 mg/dL (0.0-0.3) H 10/20/17 06:20 Total Protein 5.5 g/dL (6.4-8.2) L 10/20/17 06:20 Albumin 2.2 g/dL (3.4-5.0) L 10/20/17 06:20 Patient ABO/Rh A Positive 10/19/17 09:34 Antibody Screen Negative 10/19/17 09:34 Crossmatch See Detail 10/19/17 09:34 Gene analysis of the left knee results show Propionbacterium Acnes. Date of service: 10/21/17 Time of Service: 08:17
[2017-10-21] MEDS: Normal Saline 500 ML IV (18:17)
[2017-10-21 19:37] VITALS: BP 117/74; PULSE 97; RESP 18; TEMP 37.3; O2SAT 97
[2017-10-21] MEDS: Montelukast 10 MG TAB PO (21:08)
[2017-10-21] MEDS: Patient's Own Medication 1 EACH MISC IH (21:09)
[2017-10-21 23:51] VITALS: BP 104/69; PULSE 79; RESP 18; TEMP 36.7; O2SAT 98
[2017-10-22 04:16] VITALS: BP 97/57; PULSE 75; RESP 16; TEMP 36; O2SAT 98
[2017-10-22] MEDS: Ketorolac 15 MG/ML VIAL IVP ×2 (05:32→12:09)
[2017-10-22 07:09] LABS: HCT 26.3 % (36.0-46.0); HGB 8.3 g/dL (12.0-15.5); Mean Corp. HGB Concentration 31.6 g/dL (32.0-36.0); Mean Corpuscular Volume 94.9 fL (80-95); Mean Platelet Volume 9.9 fL (8.0-11.0); Platelet Count 300 x1000/uL (130-400); RBC 2.77 m/cumm (4.00-5.20); RBC Distribution Width 15.2 % (11.7-14.6); White Blood Cell Count 8.57 k/cumm (4.4-10.8)
[2017-10-22] MEDS: Patient's Own Medication 1 EACH MISC IH (07:19)
[2017-10-22] MEDS: Budesonide/Formoterol 160/4.5 6 GM 60 PUFF INH IH (07:21)
[2017-10-22 07:22] LABS: Anion Gap 8.8 mmol/L (3-11); BUN 12 mg/dL (7-18); C-Reactive Protein 4.87 mg/dL (0.0-0.3); CO2 25.2 mmol/L (21.0-32.0); Calcium 8.3 mg/dL (8.5-10.1); Chloride 102 mmol/L (98-107); Glucose 145 mg/dL (70-100); Potassium 3.9 mmol/L (3.5-5.1); Sodium 136 mmol/L (136-145)
[2017-10-22 07:30] VITALS: BP 100/68; PULSE 82; RESP 17; TEMP 36.9; O2SAT 98
[2017-10-22] MEDS: Insulin Aspart 300 UNITS/3 ML PEN SC (07:49)
[2017-10-22] MEDS: Esomeprazole 40 MG CAPCR PO (07:50)
[2017-10-22] MEDS: Acetaminophen 500 MG TAB 1000 MG PO (07:50)
[2017-10-22] MEDS: Rivaroxaban 10 MG TABLET PO (07:50)
[2017-10-22] MEDS: FLUoxetine 20 MG CAP 60 MG PO (07:51)
[2017-10-22] MEDS: Cetirizine 10 MG TAB PO (07:51)
[2017-10-22] MEDS: Gabapentin 300 MG CAP 600 MG PO (07:51)
[2017-10-22] MEDS: metFORMIN 500 MG TAB PO (07:51)
[2017-10-22] MEDS: Sucralfate 1 GM TAB PO (07:51)
[2017-10-22] MEDS: oxyCODONE 5 MG TAB PO ×2 (07:51→14:05)
[2017-10-22] MEDS: Magnesium Oxide 400 MG TAB PO (07:51)
--- NOTE | 2017-10-22 10:53 | W.PM.DS.N ---
DS: Diagnosis Discharge Diagnosis (1) Infection of total left knee replacement: Status: Acute Discharge Plan Discharge Details Reason For Visit: INFECTED (L) TKA Admit Date/Time: 10/19/17 08:31 Admit Provider: Raheel Gongora Attending Provider: Raheel Gongora Primary Care Provider: Gissell Davis Disposition Patient Disposition: HOME Condition: Stable Hosptial Course Hospital Course: Patient was admitted to the medical surgical floor following her procedure. She tolerated it well with no anesthetic or surgical or medical complications except for acute postoperative blood loss anemia. Initial hemoglobin status post surgery was 7 and she was transfused 1 unit. She did have some significant postoperative pain which was managed primarily with oral agents. Her postoperative day #1 hemoglobin was also low and she was transfused an additional unit. She has since been stable without dizziness, fatigue, syncope. She has been able to mobilize. Her Mukherjee catheter has been removed and she is voiding spontaneously. She has tolerated her medications without difficulty. She was cleared by physical therapy. On postop day #3 she was deemed safe for discharge home. Home Meds and New Rx's Prescriptions: New acetaminophen [Mapap Extra Strength] 500 mg Tablet 1,000 mg PO Q8H PRN PRNQty: 100 RF: 3 oxycodone 5 mg Tablet 5 - 10 mg PO Q4H PRN PRN (Reason: Pain) Qty: 20 RF: 0 rivaroxaban [Xarelto] 10 mg Tablet 10 mg PO DAILY Qty: 14 RF: 0 celecoxib 200 mg capsule 200 mg PO DAILY PRN (Reason: pain) Qty: 30 RF: 0 ondansetron 4 mg tablet,disintegrating 4 mg PO TID PRN (Reason: nausea and vomiting) Qty: 10 RF: 0 Continue cholecalciferol (vitamin D3) [Vitamin D3] 2,000 UNIT capsule 2,000 unit PO DAILY RF: 0 triamcinolone acetonide 15 GM cream 1 gm Topical daily prn Qty: 1 RF: 3 blood-glucose meter [OneTouch UltraMini] 1 EACH kit 1 ea Miscellaneous DAILY Qty: 1 RF: 0 blood sugar diagnostic [OneTouch Ultra Test] 1 EACH strip 1 ea Miscellaneous DAILY Qty: 100 RF: 3 lactase [Lactase Fast Acting] 9,000 UNIT tablet 9,000 unit PO AC & HS Qty: 90 RF: 0 lancets [OneTouch UltraSoft Lancets] 1 EACH misc 1 ea Miscellaneous DAILY Qty: 100 RF: 3 magnesium oxide 500 MG capsule 500 mg PO DAILY Qty: 1 RF: 0 albuterol sulfate 2.5 MG/3 ML solution for nebulization 2.5 mg Inhalation Q6H PRN Qty: 360 RF: 4 sucralfate [Carafate] 1 GM tablet 1 g PO BID Qty: 180 RF: 3 esomeprazole magnesium [Nexium] 40 MG capsule,delayed release(DR/EC) 40 mg PO DAILY Qty: 90 RF: 3 metformin 1,000 MG tablet 1,000 mg PO BID Qty: 180 RF: 3 nystatin 15 GM cream 1 gm Topical BID Qty: 15 RF: 1 fluoxetine 40 MG capsule 40 mg PO DAILY Qty: 90 RF: 3 cetirizine 10 MG tablet 10 mg PO DAILY Qty: 90 RF: 4 montelukast [Singulair] 10 MG tablet 10 mg PO HS Qty: 90 RF: 3 fluoxetine 20 MG capsule 20 mg PO DAILY Qty: 90 RF: 3 gabapentin 300 MG capsule 1 - 2 tab-cap PO TID Qty: 270 RF: 3 fluticasone-salmeterol [Advair Diskus] 1 EACH blister with device 1 puff Inhalation BID Qty: 1 RF: 6 levalbuterol tartrate [Xopenex HFA] 15 GM HFA aerosol inhaler 2 puff Inhalation Q4H PRN Qty: 4 RF: 4 cyclobenzaprine 5 MG tablet 5 mg PO BID PRNQty: 20 RF: 0 polyethylene glycol 3350 17 GM powder in packet 17 gm PO BID PRN PRN (Reason: Constipation) RF: 0 acetaminophen [Mapap Extra Strength] 500 MG tablet 1,000 mg PO TID PRN PRNQty: 90 RF: 1 Discontinued oxycodone 5 MG tablet 5 mg PO Q4H PRN PRNQty: 20 RF: 0 rifampin 300 MG capsule 300 mg PO BID Qty: 14 RF: 0 oxycodone 5 MG tablet 5 mg PO Q6H PRN Qty: 20 RF: 0 docusate sodium [Colace] 100 MG capsule 100 mg PO BID PRN PRN (Reason: Constipation) RF: 0 aspirin 81 MG tablet,delayed release (DR/EC) 81 mg PO BID Qty: 0 RF: 0 Discharge Instructions Instructions: Total Knee Discharge Instructions Additional Instructions: Please call the office of Dr. Gongora on Monday to schedule a follow up appointment. Dr. Gongora?s Total Knee Discharge Instructions Activity: Try to keep the leg as straight as possible. Use the knee immobilizer to encourage leg extension. You may bend the knee as tolerated. You may remove the knee immobilizer for mobilization and exercises. You should stay toe-touch weightbearing, resting the foot on the ground but not placing any weight on it. Dressing: Keep the surgical dressing in place for at least one week. After the first week it may be removed and replace with light gauze and tape or nothing. It may get wet after 3 days but avoid soaking the dressing. If it gets wet, just lightly pat dry. Medications: - You should take Tylenol and anti-inflammatory [Celebrex] as your primary pain control medications - You have been prescribed a stronger pain medication [Oxycodone] for breakthrough pain, take as needed as prescribed. - You will be taking rivaroxaban for DVT prevention unless instructed otherwise. - If you have constipation you should take Colace or Miralax (both [id number]). It takes most people 3-4 days to have a bowel movement. Follow-up: 2 weeks Stand Alone Forms: Nursing Discharge Form Referrals: Raheel Gongora MD [ [facility] STAFF PHYSICIAN] - Activity:: Touchdown weight bearing LEFT leg Equipment/Supplies:: No Equipment Needed Diet:: Protein Discharge Orders Discharge Orders: Discharge Order (Routine); Ordered 10/22/17 Ordered By: Raheel Gongora Other Ambulatory Orders: Complete Blood Count No Diff (Routine) Timeframe: 2 Weeks Facility: [facility] - Location: Laboratory Ordered By: aRheel Gongora C-Reactive Protein (Routine) Timeframe: 2 Weeks Facility: [facility] - Location: Laboratory Ordered By: Raheel Gongora DS: Data Completed studies during hospitalization [Text1]: Procedures ABD SHERRI REPAIR-GRFT NEC (04/16/97) Bed Mobility Treatment (08/22/17) Bed Mobility Treatment using Assistive, Adaptive, Supportive or Protective Equipment (07/06/17) CELL BLK/PAP-UPPER GI (10/01/99) D & C NEC (03/08/06) DRESSING OF WOUND NEC (04/16/97) ESOPHAGOGASTRODUODENOSCOPY [EGD] W/CLOSED BIOPSY (06/27/06) Excision of Left Knee Joint, Open Approach (09/13/17) Gait Training/Functional Ambulation Treatment (08/22/17) Gait Training/Functional Ambulation Treatment using Assistive, Adaptive, Supportive or Protective Equipment (07/06/17) HYSTEROSCOPY (03/08/06) INTRAOPER CHOLANGIOGRAM (09/18/97) Insertion of Infusion Device into Superior Vena Cava, Percutaneous Approach (09/13/17) Introduction of Anesthetic Agent into Peripheral Nerves and Plexi, Percutaneous Approach (07/06/17) KNEE STRUCTURE DIVISION (07/27/05) LAP PROCS FOR CREATION OF ESOPHAGOGASTRIC SPHINCT COMPETENCE (08/17/04) LAPAROSCOPIC CHOLECYSTECTOMY (09/18/97) Laparoscopic incisional hernia repair with graft or prosthesis (03/18/14) Laparoscopic lysis of peritoneal adhesions (03/18/14) Laparoscopic supracervical hysterectomy [LSH] (01/26/11) OTHER NONOP RESPIRATORY MEASURE (09/17/99) OTHER OPEN INCISIONAL HERNIA REPAIR WITH GRAFT OR PROSTHESIS (02/17/09) OTHER REPAIR OF KNEE (07/27/05) Other (09/17/08) Other endoscopy of small intestine (04/29/08) Other nonoperative respiratory measurements (11/03/08) Other open incisional hernia repair with graft or prosthesis (02/19/13) Other plastic repair of palate (06/14/10) Other procedures for creation of esophagogastric sphincteric competence (04/29/08) Plastic operation on pharynx (06/14/10) Range of Motion and Joint Mobility Treatment of Musculoskeletal System - Whole Body (08/22/17) Removal of Synthetic Substitute from Left Knee Joint, Tibial Surface, Open Approach (09/13/17) Replacement of Left Knee Joint with Synthetic Substitute, Cemented, Open Approach (07/06/17) Replacement of Left Knee Joint, Tibial Surface with Synthetic Substitute, Uncemented, Open Approach (09/13/17) Replacement of Right Knee Joint with Synthetic Substitute, Cemented, Open Approach (12/20/16) SMALL BOWEL SUTURE NEC (12/29/09) Supplement Abdominal Wall with Synthetic Substitute, Percutaneous Endoscopic Approach (03/29/16) Therapeutic Exercise Treatment of Musculoskeletal System - Whole Body (08/22/17) Tonsillectomy without adenoidectomy (06/14/10) Transfer Training Treatment (08/22/17) Transfer Training Treatment using Assistive, Adaptive, Supportive or Protective Equipment (07/06/17) Transfusion of Nonautologous Red Blood Cells into Peripheral Vein, Percutaneous Approach (09/13/17) Ultrasonography of Superior Vena Cava, Guidance (09/13/17) Labs on day of discharge: Labs from last 24 hours 10/22/17 10/22/17 10/21/17 06:50 06:50 06:45 WBC 8.57 10.48 RBC 2.77 L 2.90 L Hgb 8.3 L 8.6 L Hct 26.3 L 27.0 L MCV 94.9 93.1 MCH 30.0 29.7 MCHC 31.6 L 31.9 L RDW 15.2 H 15.1 H Plt Count 300 285 MPV 9.9 10.1 Sodium 136 Potassium 3.9 Chloride 102 Carbon Dioxide 25.2 Anion Gap 8.8 BUN 12 Creatinine 0.60 Estimated GFR/1.73 m2 >= 60.00 Glucose 145 H Calcium 8.3 L C-Reactive Protein 4.87 H 10/21/17 06:45 WBC RBC Hgb Hct MCV MCH MCHC RDW Plt Count MPV Sodium 136 Potassium 3.7 Chloride 103 Carbon Dioxide 23.4 Anion Gap 9.6 BUN 8 Creatinine 0.70 Estimated GFR/1.73 m2 >= 60.00 Glucose 151 H Calcium 8.2 L C-Reactive Protein Date of service: 10/22/17 Time of Service: 10:53
--- NOTE | 2017-10-22 11:05 | PT.INTREAT ---
PT Notes Inpatient Physical Therapy Treatment Note PRECAUTIONS: TDWB L LE SUBJECTIVE: There and states that she continues to have pain in her left knee although is looking forward to discharge to home tomorrow. OBJECTIVE: PAIN: Patient complains of pain in the left LE with transfers and therapeutic exercise BED MOBILITY/TRANSFERS Sit-supine: Min A with HOB flat Sit-stand: S Stand-sit: S GAIT Assistive Device: FWW Weight bearing: TDWB L LE Assist: S Distance: 25 feet THEREX: Patient completed a lower extremity strengthening and stabilization program, as per flow sheet. Patient performed ankle pumps, glute sets, and required assist with SLR. ASSESSMENT: Patient tolerated session with minimal complaints of pain in the left lower extremity. Patient was able to maintain TDWB status status with minimal cueing with support of FWW with gait. Patient would benefit from continued transfer training to improve ability with sit to supine transfer. PLAN: Continue with PT's POC 25 minutes; TAx1, TPx1 Intake Vital Signs 10/16/17 12:59 10/19/17 09:08 10/19/17 09:08 10/19/17 16:05 10/19/17 16:10 10/19/17 16:15 10/19/17 16:20 10/19/17 16:35 10/19/17 16:50 10/19/17 17:05 10/19/17 17:20 10/19/17 17:35 10/19/17 17:50 10/19/17 17:50 10/19/17 17:55 10/19/17 18:05 10/19/17 18:05 10/19/17 18:30 10/19/17 19:45 10/19/17 20:24 10/19/17 21:00 10/19/17 21:29 10/19/17 22:01 10/19/17 22:26 10/20/17 00:21 10/20/17 03:50 10/20/17 04:43 10/20/17 07:55 10/20/17 08:41 10/20/17 08:56 10/20/17 08:57 Height 5 ft 3 in 5 ft 3 in 5 ft 3 in Weight 83 kg 83 kg 83 kg BP 113/80 113/80 83/63 100/57 94/65 97/65 91/57 58/31 97/77 99/77 112/76 108/66 112/76 108/66 88/65 88/65 112/78 102/70 108/71 96/64 100/69 113/64 112/73 105/69 102/68 112/75 113/76 103/69 121/77 Respiration 18 18 18 18 15 17 19 16 17 14 14 17 17 17 17 17 16 19 20 18 18 19 18 15 18 16 16 18 Pulse 93 H 93 H 126 H 129 H 128 H 126 H 125 H 121 H 106 H 108 H 108 H 101 H 103 H 101 H 107 H 107 H 100 H 101 H 110 H 100 H 97 H 100 H 97 H 87 88 87 108 H 105 H 105 H Temp 37.9 C H 37.9 C H 36.6 C 36.4 C L 36.4 C L 36.2 C L 36.0 C L 36.0 C L 36.0 C L 36.0 C L 36.0 C L 36.2 C L 36.1 C L 36.2 C L 36.5 C 36.5 C 37.1 C 36.1 C L 36.3 C L 37.8 C H 38.0 C H 38.2 C H 37.9 C H 36.9 C 36.4 C L 36.8 C 37.1 C 36.8 C 36.5 C 36.8 C Temp Source Tympanic Tympanic Tympanic Tympanic Tympanic Tympanic Tympanic Tympanic Tympanic Tympanic Tympanic Pulse Oximetry (%) 98 98 100 98 95 96 96 97 96 96 97 95 96 95 95 96 97 98 99 96 98 97 95 98 96 99 99 Oxygen Flow Rate 0 0 0 3 3 0 0 0 0 0 0 0 0 0 0 0 0 0 0 0 0 0 0 0 0 0 0 0 0 10/20/17 09:15 10/20/17 09:45 10/20/17 10:45 10/20/17 11:45 10/20/17 15:28 10/20/17 19:18 10/20/17 23:26 10/21/17 03:55 10/21/17 09:25 10/21/17 11:45 10/21/17 15:15 10/21/17 19:37 10/21/17 23:51 10/22/17 04:16 09/02/18 07:30 113/75 100/65 114/75 106/70 104/70 98/58 100/66 154/91 H 122/66 99/63 L 103/69 117/74 104/69 97/57 L 100/68 16 18 17 16 20 16 18 18 16 16 17 18 18 16 17 108 H 103 H 99 H 100 H 104 H 90 92 H 90 67 98 H 83 97 H 79 75 82 37.0 C 37.8 C H 37.7 C H 37.7 C H 37.7 C H 36.2 C L 37 C 37.1 C 37.2 C 36.7 C 37.3 C 36.7 C 36 C L 36.9 C Tympanic Tympanic Tympanic Tympanic Tympanic Tympanic Tympanic Tympanic Tympanic Tympanic Tympanic Tympanic Tympanic Tympanic 100 98 98 98 100 99 98 99 99 99 100 97 98 98 98 0 0 0 0 0 0 0 0 0 0 0 0 0 0 0
--- NOTE | 2017-10-22 11:06 | PTTR_ITS ---
PT Notes Inpatient Physical Therapy Treatment Note PRECAUTIONS: TDWB L LE SUBJECTIVE: There and states that she continues to have pain in her left knee although is looking forward to discharge to home tomorrow. OBJECTIVE: PAIN: Patient complains of pain in the left LE with transfers and therapeutic exercise BED MOBILITY/TRANSFERS Sit-supine: Min A with HOB flat Sit-stand: S Stand-sit: S GAIT Assistive Device: FWW Weight bearing: TDWB L LE Assist: S Distance: 25 feet THEREX: Patient completed a lower extremity strengthening and stabilization program, as per flow sheet. Patient performed ankle pumps, glute sets, and required assist with SLR. ASSESSMENT: Patient tolerated session with minimal complaints of pain in the left lower extremity. Patient was able to maintain TDWB status status with minimal cueing with support of FWW with gait. Patient would benefit from continued transfer training to improve ability with sit to supine transfer. PLAN: Continue with PT's POC 25 minutes; TAx1, TPx1 Intake Vital Signs 3 l l l l 10/16/17 12:59 l l 10/19/17 09:08 l l 10/19/17 09:08 l l 10/19/17 16:05 l l 10/19/17 16:10 l l 10/19/17 16:15 l l 10/19/17 16:20 l l 10/19/17 16:35 l l 10/19/17 16:50 l l 10/19/17 17:05 l l 10/19/17 17:20 l l 10/19/17 17:35 l l 10/19/17 17:50 l l 10/19/17 17:50 l l 10/19/17 17:55 l l 10/19/17 18:05 l l 10/19/17 18:05 l l 10/19/17 18:30 l l 10/19/17 19:45 l l 10/19/17 20:24 l l 10/19/17 21:00 l l 10/19/17 21:29 l l 10/19/17 22:01 l l 10/19/17 22:26 l l 10/20/17 00:21 l l 10/20/17 03:50 l l 10/20/17 04:43 l l 10/20/17 07:55 l l 08/31/18 08:41 l l 10/20/17 08:56 l l 10/20/17 08:57 l l 10/20/17 09:15 l l 10/20/17 09:45 l l 10/20/17 10:45 l l 10/20/17 11:45 l l 10/20/17 15:28 l l 10/20/17 19:18 l l 10/20/17 23:26 l l 10/21/17 03:55 l l 10/21/17 09:25 l l 10/21/17 11:45 l l 10/21/17 15:15 l l 10/21/17 19:37 l l 10/21/17 23:51 l l 10/22/17 04:16 l l 10/22/17 07:30 l l Height 5 ft 3 in 5 ft 3 in 5 ft 3 in l l Weight 83 kg 83 kg 83 kg l l BP 113/80 113/80 83/63 100/57 94/65 97/65 91/57 58/31 97/77 99/77 112/76 108/66 112/76 108/66 88/65 88/65 112/78 102/70 108/71 96/64 100/69 113/64 112/73 105/69 102/68 112/75 113/ 76 103/69 121/77 113/75 100/65 114/75 106/70 104/70 98/58 100/ 66 154/91 H 122/66 99/63 L 103/69 117/74 104/69 97/57 L 100/68 l l Respiration 18 18 18 18 15 17 19 16 17 14 14 17 17 17 17 17 16 19 20 18 18 19 18 15 18 16 16 18 16 18 17 16 20 16 18 18 16 16 17 18 18 16 17 l l Pulse 93 H 93 H 126 H 129 H 128 H 126 H 125 H 121 H 106 H 108 H 108 H 101 H 103 H 101 H 107 H 107 H 100 H 101 H 110 H 100 H 97 H 100 H 97 H 87 88 87 108 H 105 H 105 H 108 H 103 H 99 H 100 H 104 H 90 92 H 90 67 98 H 83 97 H 79 75 82 l l Temp 37.9 C H 37.9 C H 36.6 C 36.4 C L 36.4 C L 36.2 C L 36.0 C L 36.0 C L 36.0 C L 36.0 C L 36.0 C L 36.2 C L 36.1 C L 36.2 C L 36.5 C 36.5 C 37.1 C 36.1 C L 36.3 C L 37.8 C H 38.0 C H 38.2 C H 37.9 C H 36.9 C 36.4 C L 36.8 C 37.1 C 36.8 C 36.5 C 36.8 C 37.0 C 37.8 C H 37.7 C H 37.7 C H 37.7 C H 36.2 C L 37 C 37.1 C 37.2 C 36.7 C 37.3 C 36.7 C 36 C L 36.9 C l l Temp Source Tympanic Tympanic Tympanic Tympanic Tympanic Tympanic Tympanic Tympanic Tympanic Tympanic Tympanic Tympanic Tympanic Tympanic Tympanic Tympanic Tympanic Tympanic Tympanic Tympanic Tympanic Tympanic Tympanic Tympanic Tympanic l l Pulse Oximetry (%) 98 98 100 98 95 96 96 97 96 96 97 95 96 95 95 96 97 98 99 96 98 97 95 98 96 99 99 100 98 98 98 100 99 98 99 99 99 100 97 98 98 98 l l Oxygen Flow Rate 0 0 0 3 3 0 0 0 0 0 0 0 0 0 0 0 0 0 0 0 0 0 0 0 0 0 0 0 0 0 0 0 0 0 0 0 0 0 0 0 0 0 0 0
--- NOTE | 2017-10-22 11:08 | PTTR_ITS ---
PT Notes Inpatient Physical Therapy Treatment Note PRECAUTIONS: TDWB left lower extremity SUBJECTIVE: Fay reports that she continues to have pain in her left lower extremity today, but it is less than yesterday. And states that she still plans to discharge to home this afternoon. OBJECTIVE: PAIN: Patient complains of pain in the left lower extremity with transfers and therapeutic exercise BED MOBILITY/TRANSFERS Sit-supine: SBA with HOB flat Sit-stand: I Stand-sit: I GAIT Assistive Device: FWW Weight bearing: TDWB left lower extremity Assist: S Distance: 25 feet THEREX: Patient completed a lower extremity strengthening and stabilization program, as per flow sheet. Patient tolerated the addition of quad sets well, without complaints of pain. Patient continues to require assist with SLR exercise on left. ASSESSMENT: Patient tolerated session well with minimal complaints of pain in the left lower extremity. Patient demonstrated a progression in transfers from supervision to independent with sit<>stand transfers. Patient was able to perform sit to supine transfer with SBA only. PLAN: Continue with PT's POC 25 minutes; TAx1, TPx1 Intake Vital Signs 3 l l l l 10/16/17 12:59 l l 10/19/17 09:08 l l 10/19/17 09:08 l l 10/19/17 16:05 l l 10/19/17 16:10 l l 10/19/17 16:15 l l 10/19/17 16:20 l l 10/19/17 16:35 l l 10/19/17 16:50 l l 10/19/17 17:05 l l 10/19/17 17:20 l l 10/19/17 17:35 l l 10/19/17 17:50 l l 10/19/17 17:50 l l 10/19/17 17:55 l l 10/19/17 18:05 l l 10/19/17 18:05 l l 10/19/17 18:30 l l 10/19/17 19:45 l l 10/19/17 20:24 l l 10/19/17 21:00 l l 10/19/17 21:29 l l 10/19/17 22:01 l l 10/19/17 22:26 l l 10/20/17 00:21 l l 10/20/17 03:50 l l 10/20/17 04:43 l l 10/20/17 07:55 l l 10/20/17 08:41 l l 10/20/17 08:56 l l 10/20/17 08:57 l l 10/20/17 09:15 l l 10/20/17 09:45 l l 10/20/17 10:45 l l 10/20/17 11:45 l l 10/20/17 15:28 l l 10/20/17 19:18 l l 10/20/17 23:26 l l 10/21/17 03:55 l l 10/21/17 09:25 l l 10/21/17 11:45 l l 10/21/17 15:15 l l 10/21/17 19:37 l l 10/21/17 23:51 l l 10/22/17 04:16 l l 10/22/17 07:30 l l Height 5 ft 3 in 5 ft 3 in 5 ft 3 in l l Weight 83 kg 83 kg 83 kg l l BP 113/80 113/80 83/63 100/57 94/65 97/65 91/57 58/31 97/77 99/77 112/76 108/66 112/76 108/66 88/65 88/65 112/78 102/70 108/71 96/64 100/69 113/64 112/73 105/69 102/68 112/75 113/ 76 103/69 121/77 113/75 100/65 114/75 106/70 104/70 98/58 100/ 66 154/91 H 122/66 99/63 L 103/69 117/74 104/69 97/57 L 100/68 l l Respiration 18 18 18 18 15 17 19 16 17 14 14 17 17 17 17 17 16 19 20 18 18 19 18 15 18 16 16 18 16 18 17 16 20 16 18 18 16 16 17 18 18 16 17 l l Pulse 93 H 93 H 126 H 129 H 128 H 126 H 125 H 121 H 106 H 108 H 108 H 101 H 103 H 101 H 107 H 107 H 100 H 101 H 110 H 100 H 97 H 100 H 97 H 87 88 87 108 H 105 H 105 H 108 H 103 H 99 H 100 H 104 H 90 92 H 90 67 98 H 83 97 H 79 75 82 l l Temp 37.9 C H 37.9 C H 36.6 C 36.4 C L 36.4 C L 36.2 C L 36.0 C L 36.0 C L 36.0 C L 36.0 C L 36.0 C L 36.2 C L 36.1 C L 36.2 C L 36.5 C 36.5 C 37.1 C 36.1 C L 36.3 C L 37.8 C H 38.0 C H 38.2 C H 37.9 C H 36.9 C 36.4 C L 36.8 C 37.1 C 36.8 C 36.5 C 36.8 C 37.0 C 37.8 C H 37.7 C H 37.7 C H 37.7 C H 36.2 C L 37 C 37.1 C 37.2 C 36.7 C 37.3 C 36.7 C 36 C L 36.9 C l l Temp Source Tympanic Tympanic Tympanic Tympanic Tympanic Tympanic Tympanic Tympanic Tympanic Tympanic Tympanic Tympanic Tympanic Tympanic Tympanic Tympanic Tympanic Tympanic Tympanic Tympanic Tympanic Tympanic Tympanic Tympanic Tympanic l l Pulse Oximetry (%) 98 98 100 98 95 96 96 97 96 96 97 95 96 95 95 96 97 98 99 96 98 97 95 98 96 99 99 100 98 98 98 100 99 98 99 99 99 100 97 98 98 98 l l Oxygen Flow Rate 0 0 0 3 3 0 0 0 0 0 0 0 0 0 0 0 0 0 0 0 0 0 0 0 0 0 0 0 0 0 0 0 0 0 0 0 0 0 0 0 0 0 0 0
--- NOTE | 2017-10-22 11:08 | PT.INTREAT ---
PT Notes Inpatient Physical Therapy Treatment Note PRECAUTIONS: TDWB left lower extremity SUBJECTIVE: Fay reports that she continues to have pain in her left lower extremity today, but it is less than yesterday. And states that she still plans to discharge to home this afternoon. OBJECTIVE: PAIN: Patient complains of pain in the left lower extremity with transfers and therapeutic exercise BED MOBILITY/TRANSFERS Sit-supine: SBA with HOB flat Sit-stand: I Stand-sit: I GAIT Assistive Device: FWW Weight bearing: TDWB left lower extremity Assist: S Distance: 25 feet THEREX: Patient completed a lower extremity strengthening and stabilization program, as per flow sheet. Patient tolerated the addition of quad sets well, without complaints of pain. Patient continues to require assist with SLR exercise on left. ASSESSMENT: Patient tolerated session well with minimal complaints of pain in the left lower extremity. Patient demonstrated a progression in transfers from supervision to independent with sit<>stand transfers. Patient was able to perform sit to supine transfer with SBA only. PLAN: Continue with PT's POC 25 minutes; TAx1, TPx1 Intake Vital Signs 10/16/17 12:59 10/19/17 09:08 10/19/17 09:08 10/19/17 16:05 10/19/17 16:10 10/19/17 16:15 10/19/17 16:20 10/19/17 16:35 10/19/17 16:50 10/19/17 17:05 10/19/17 17:20 10/19/17 17:35 10/19/17 17:50 10/19/17 17:50 10/19/17 17:55 10/19/17 18:05 10/19/17 18:05 10/19/17 18:30 10/19/17 19:45 10/19/17 20:24 10/19/17 21:00 10/19/17 21:29 10/19/17 22:01 10/19/17 22:26 10/20/17 00:21 10/20/17 03:50 10/20/17 04:43 10/20/17 07:55 10/20/17 08:41 10/20/17 08:56 10/20/17 08:57 Height 5 ft 3 in 5 ft 3 in 5 ft 3 in Weight 83 kg 83 kg 83 kg BP 113/80 113/80 83/63 100/57 94/65 97/65 91/57 58/31 97/77 99/77 112/76 108/66 112/76 108/66 88/65 88/65 112/78 102/70 108/71 96/64 100/69 113/64 112/73 105/69 102/68 112/75 113/76 103/69 121/77 Respiration 18 18 18 18 15 17 19 16 17 14 14 17 17 17 17 17 16 19 20 18 18 19 18 15 18 16 16 18 Pulse 93 H 93 H 126 H 129 H 128 H 126 H 125 H 121 H 106 H 108 H 108 H 101 H 103 H 101 H 107 H 107 H 100 H 101 H 110 H 100 H 97 H 100 H 97 H 87 88 87 108 H 105 H 105 H Temp 37.9 C H 37.9 C H 36.6 C 36.4 C L 36.4 C L 36.2 C L 36.0 C L 36.0 C L 36.0 C L 36.0 C L 36.0 C L 36.2 C L 36.1 C L 36.2 C L 36.5 C 36.5 C 37.1 C 36.1 C L 36.3 C L 37.8 C H 38.0 C H 38.2 C H 37.9 C H 36.9 C 36.4 C L 36.8 C 37.1 C 36.8 C 36.5 C 36.8 C Temp Source Tympanic Tympanic Tympanic Tympanic Tympanic Tympanic Tympanic Tympanic Tympanic Tympanic Tympanic Pulse Oximetry (%) 98 98 100 98 95 96 96 97 96 96 97 95 96 95 95 96 97 98 99 96 98 97 95 98 96 99 99 Oxygen Flow Rate 0 0 0 3 3 0 0 0 0 0 0 0 0 0 0 0 0 0 0 0 0 0 0 0 0 0 0 0 0 10/20/17 09:15 10/20/17 09:45 10/20/17 10:45 10/20/17 11:45 10/20/17 15:28 10/20/17 19:18 10/20/17 23:26 10/21/17 03:55 10/21/17 09:25 10/21/17 11:45 10/21/17 15:15 10/21/17 19:37 10/21/17 23:51 10/22/17 04:16 10/22/17 07:30 113/75 100/65 114/75 106/70 104/70 98/58 100/66 154/91 H 122/66 99/63 L 103/69 117/74 104/69 97/57 L 100/68 16 18 17 16 20 16 18 18 16 16 17 18 18 16 17 108 H 103 H 99 H 100 H 104 H 90 92 H 90 67 98 H 83 97 H 79 75 82 37.0 C 37.8 C H 37.7 C H 37.7 C H 37.7 C H 36.2 C L 37 C 37.1 C 37.2 C 36.7 C 37.3 C 36.7 C 36 C L 36.9 C Tympanic Tympanic Tympanic Tympanic Tympanic Tympanic Tympanic Tympanic Tympanic Tympanic Tympanic Tympanic Tympanic Tympanic 100 98 98 98 100 99 98 99 99 99 100 97 98 98 98 0 0 0 0 0 0 0 0 0 0 0 0 0 0 0
[2017-10-22 11:22] VITALS: BP 107/66; PULSE 88; RESP 17; TEMP 36.9; O2SAT 99
--- NOTE | 2017-10-22 11:29 | CMPROGNOTE_ITS ---
- If Service Date Differs Date of service: 10/21/17 Time of Service: 09:00 Care Management Progress Note S/O: Fay is lying in bed when this administrative underwriter visits this morning. Fay states that she is feeling tired of being in the hospital and that this is ?just a step to the next procedure?. Fay inquired about the w/c that was ordered. CM contacted [facility], though as it is the weekend they are unable to assist with information in regards to coverage of the w/c. CM contacted [facility] to see if there was a weekend option for a w/c and they state that they are unable to assist on the weekend. CM spoke with Fay and her . Fay states that they have borrowed a w/c from [facility] before and may be able to again. CM contacted [facility] and they also have a w/c with leg rests available. Fay?s will go to [facility] [employer] today to see if the w/c will work for Fay. Fay states that she is being discharged on 10/22 and that she is ready to return home. She is worried about being non weight bearing and wants to be sure that she will have a w/c to use at home prior to DC. A: 47 yo female with a (L) Total knee P: Fay will return home with no anticipated services. Her to go to [facility] [employer] [facility] today to assess the w/c?s. CM to contact [facility] once CM is alerted of coverage for the w/c. [facility] will transport.
[2017-10-22] MEDS: Normal Saline Flush 10 ML SYR IV (12:09)
[2017-10-22] MEDS: Gabapentin 300 MG CAP PO (14:06)
--- NOTE | 2017-10-22 15:38 | PDOC.CMDIS ---
LACE Index Scoring Tool - Questions: Length of Stay (in days): 3 Acuity (Admit via E.D.?): No Comorbidities: Chronic Pulmonary Disease E.D. Visits: 0 - Answers: Total Score: 5 Risk of Readmission: Low Risk Care Management Discharge Reason for Hospitalization: Infected (L) TKA Discharge Plan: Home and will transport by car when medically cleared for discharge. She has a wheel chair. Anticipate daily outpatient antibiotic infusion therapy at [facility] as ordered by MD. Patient/Family Education Needs: Discharge instructions.
--- NOTE | 2017-10-22 15:47 | CMDISCH_ITS ---
LACE Index Scoring Tool - Questions: Length of Stay (in days): 3 Acuity (Admit via E.D.?): No Comorbidities: Chronic Pulmonary Disease E.D. Visits: 0 - Answers: Total Score: 5 Risk of Readmission: Low Risk Care Management Discharge Reason for Hospitalization: Infected (L) TKA Discharge Plan: Home and will transport by car when medically cleared for discharge. She has a wheel chair. Anticipate daily outpatient antibiotic infusion therapy at [facility] as ordered by MD. Patient/Family Education Needs: Discharge instructions.
--- NOTE | 2017-10-24 07:56 | PT.INDS ---
PT Notes Inpatient Physical Therapy Discharge Summary Date: 10/24/17 for 10/22/17 Dates of Service: 10/19/17-10/22/17 SUBJECTIVE: NT OBJECTIVE: 10/19/17-10/22/17 BED MOBILITY/TRANSFERS: Supine-sit minAx1 Sit-supine SBA Sit-stand independent Stand-sit independent GAIT: supervision with FWW 25ft TDWB L LE BALANCE: Static sitting normal Dynamic sitting normal Static standing fair Dynamic standing fair ASSESSMENT:Pt was seen for 3 PT visits. Progressed from SBA standing transfers to independent, from SBA gait with FWW 20ftx2 TDWB L LE to supervision with FWW 25ft. Pt was discharged to home setting 10/22/17 GOALS Pt met goals 3, 4, 5, 6. Recommend home PT to meet remaining goals DISCHARGE PLAN/RECOMMENDATIONS: Home G Codes in the area mobility of walking and moving around:projected status GP [id number]. Discharge status (if discharging) GP [id number] Idalmis Auguste PT.
--- NOTE | 2017-10-24 08:01 | INDS_ITS ---
PT Notes Inpatient Physical Therapy Discharge Summary Date: 10/24/17 for 10/22/17 Dates of Service: 10/19/17-10/22/17 SUBJECTIVE: NT OBJECTIVE: 10/19/17-10/22/17 BED MOBILITY/TRANSFERS: Supine-sit minAx1 Sit-supine SBA Sit-stand independent Stand-sit independent GAIT: supervision with FWW 25ft TDWB L LE BALANCE: Static sitting normal Dynamic sitting normal Static standing fair Dynamic standing fair ASSESSMENT:Pt was seen for 3 PT visits. Progressed from SBA standing transfers to independent, from SBA gait with FWW 20ftx2 TDWB L LE to supervision with FWW 25ft. Pt was discharged to home setting 10/22/17 GOALS Pt met goals 3, 4, 5, 6. Recommend home PT to meet remaining goals DISCHARGE PLAN/RECOMMENDATIONS: Home G Codes in the area mobility of walking and moving around:projected status GP [id number]. Discharge status (if discharging) GP [id number] Idalmis Auguste PT.
--- NOTE | 2017-11-02 08:00 | PT.INTREAT ---
Date of service: 10/21/17 Time of Service: 09:00 PT Notes Inpatient Physical Therapy Treatment Note PRECAUTIONS: TDWB L LE SUBJECTIVE: There and states that she continues to have pain in her left knee although is looking forward to discharge to home tomorrow. OBJECTIVE: PAIN: Patient complains of pain in the left LE with transfers and therapeutic exercise BED MOBILITY/TRANSFERS Sit-supine: Min A with HOB flat Sit-stand: S Stand-sit: S GAIT Assistive Device: FWW Weight bearing: TDWB L LE Assist: S Distance: 25 feet THEREX: Patient completed a lower extremity strengthening and stabilization program, as per flow sheet. Patient performed ankle pumps, glute sets, and required assist with SLR. ASSESSMENT: Patient tolerated session with minimal complaints of pain in the left lower extremity. Patient was able to maintain TDWB status status with minimal cueing with support of FWW with gait. Patient would benefit from continued transfer training to improve ability with sit to supine transfer. PLAN: Continue with PT's POC 25 minutes; TAx1, TPx1
--- NOTE | 2017-11-02 08:02 | PT.INTREAT ---
Date of service: 10/22/17 Time of Service: 10:15 PT Notes Inpatient Physical Therapy Treatment Note PRECAUTIONS: TDWB left lower extremity SUBJECTIVE: Fay reports that she continues to have pain in her left lower extremity today, but it is less than yesterday. And states that she still plans to discharge to home this afternoon. OBJECTIVE: PAIN: Patient complains of pain in the left lower extremity with transfers and therapeutic exercise BED MOBILITY/TRANSFERS Sit-supine: SBA with HOB flat Sit-stand: I Stand-sit: I GAIT Assistive Device: FWW Weight bearing: TDWB left lower extremity Assist: S Distance: 25 feet THEREX: Patient completed a lower extremity strengthening and stabilization program, as per flow sheet. Patient tolerated the addition of quad sets well, without complaints of pain. Patient continues to require assist with SLR exercise on left. ASSESSMENT: Patient tolerated session well with minimal complaints of pain in the left lower extremity. Patient demonstrated a progression in transfers from supervision to independent with sit<>stand transfers. Patient was able to perform sit to supine transfer with SBA only. PLAN: Continue with PT's POC 25 minutes; TAx1, TPx1
== END 2017-10-22 15:03 | disposition home or self-care (01) | DRG 464 ==
PROVIDERS: Admitting Provider Student in an Organized Health Care Education/Training Program; Visit Provider Student in an Organized Health Care Education/Training Program
DX: T84.54XA Infection and inflammatory reaction due to internal left knee prosthesis, initial encounter (principal); Z96.652 Presence of left artificial knee joint; Y83.8 Other surgical procedures as the cause of abnormal reaction of the patient, or of later complication, without mention of misadventure at the time of the procedure; M65.9 Synovitis and tenosynovitis, unspecified; D62 Acute posthemorrhagic anemia; E11.9 Type 2 diabetes mellitus without complications; E66.9 Obesity, unspecified; E78.5 Hyperlipidemia, unspecified
CPT/HCPCS: 27488; 36415; 36430; 80048; 80053; 85027; 86850; 86900; 86901; 86920; 94640; 97110; 97162; 97530; 99231; 99238; 73560; 85014; 85018; 86140; J0131; J0690; J1100; J1200; J1885; J2250; J2370; J2405; J3010; J7613; P9016

== ENCOUNTER → 2017-10-30 10:22 | Outpatient (BNVA) | payer MEDICARE, SELFPAY | PROVIDERS: Visit Provider Student in an Organized Health Care Education/Training Program | DX: T84.53XD Infection and inflammatory reaction due to internal right knee prosthesis, subsequent encounter (principal) | CPT/HCPCS: NC ==

== ENCOUNTER → 2017-11-10 09:45 | Outpatient (BNVA) | payer MEDICARE, SELFPAY | PROVIDERS: Visit Provider Student in an Organized Health Care Education/Training Program | DX: T84.54XD Infection and inflammatory reaction due to internal left knee prosthesis, subsequent encounter (principal); Z96.652 Presence of left artificial knee joint ==

== ENCOUNTER 2017-11-19 00:08 | Outpatient (RCR) | payer MEDICARE, SELFPAY ==
[2017-10-23] MEDS: Normal Saline Flush 10 ML SYR IVP (11:32)
[2017-10-24] MEDS: Normal Saline Flush 10 ML SYR IVP (11:05)
[2017-10-25] MEDS: Normal Saline Flush 10 ML SYR IVP (10:55)
[2017-10-26] MEDS: Normal Saline Flush 10 ML SYR IVP (11:01)
[2017-10-27] MEDS: Normal Saline Flush 10 ML SYR IVP (11:06)
[2017-10-28] MEDS: Normal Saline Flush 10 ML SYR IVP (11:14)
[2017-10-29] MEDS: Normal Saline Flush 10 ML SYR IVP (10:48)
[2017-10-30] MEDS: Normal Saline Flush 10 ML SYR IVP (11:06)
[2017-10-31] MEDS: Normal Saline Flush 10 ML SYR IVP (10:43)
[2017-11-01] MEDS: Normal Saline Flush 10 ML SYR IVP (10:50)
[2017-11-02] MEDS: Normal Saline Flush 10 ML SYR IVP (11:00)
[2017-11-02 11:37] LABS: ALT 15 U/L (12-78); AST 14 U/L (15-37); Albumin 3.1 g/dL (3.4-5.0); Alkaline Phosphatase 84 U/L (46-116); Anion Gap 9.3 mmol/L (3-11); BUN 9 mg/dL (7-18); Bilirubin, Total 0.5 mg/dL (0.2-1.0); C-Reactive Protein 0.42 mg/dL (0.0-0.3); CO2 24.7 mmol/L (21.0-32.0); CREATININE 0.71 mg/dL (0.55-1.02); Calcium 8.4 mg/dL (8.5-10.1); Chloride 105 mmol/L (98-107); Glucose 104 mg/dL (70-100); Potassium 3.9 mmol/L (3.5-5.1); Sodium 139 mmol/L (136-145); Total Protein 7.3 g/dL (6.4-8.2)
[2017-11-03] MEDS: Normal Saline Flush 10 ML SYR IVP (10:41)
[2017-11-05] MEDS: Normal Saline Flush 10 ML SYR IVP (10:52)
[2017-11-06] MEDS: Normal Saline Flush 10 ML SYR IVP (10:38)
[2017-11-07] MEDS: Normal Saline Flush 10 ML SYR IVP (11:03)
[2017-11-08] MEDS: Normal Saline Flush 10 ML SYR IVP (10:52)
[2017-11-09] MEDS: Normal Saline Flush 10 ML SYR IVP (10:40)
[2017-11-10] MEDS: Normal Saline Flush 10 ML SYR IVP (11:05)
[2017-11-11] MEDS: Normal Saline Flush 10 ML SYR IVP (11:04)
[2017-11-12] MEDS: Normal Saline Flush 10 ML SYR IVP (10:49)
[2017-11-13] MEDS: Normal Saline Flush 10 ML SYR IVP (10:56)
[2017-11-14] MEDS: Normal Saline Flush 10 ML SYR IVP (11:00)
[2017-11-14 11:05] LABS: HCT 30.5 % (36.0-46.0); HGB 9.3 g/dL (12.0-15.5); Mean Corp. HGB Concentration 30.5 g/dL (32.0-36.0); Mean Corpuscular Hemoglobin 27.7 pg (27.0-33.0); Mean Corpuscular Volume 90.8 fL (80-95); Mean Platelet Volume 9.8 fL (8.0-11.0); Platelet Count 307 x1000/uL (130-400); RBC 3.36 m/cumm (4.00-5.20); RBC Distribution Width 14.4 % (11.7-14.6); White Blood Cell Count 6.12 k/cumm (4.4-10.8)
[2017-11-14 11:25] LABS: ALT 21 U/L (12-78); AST 18 U/L (15-37); Albumin 3.4 g/dL (3.4-5.0); Alkaline Phosphatase 70 U/L (46-116); Anion Gap 11.5 mmol/L (3-11); BUN 10 mg/dL (7-18); Bilirubin, Total 0.7 mg/dL (0.2-1.0); C-Reactive Protein 0.59 mg/dL (0.0-0.3); CO2 25.5 mmol/L (21.0-32.0); CREATININE 0.72 mg/dL (0.55-1.02); Calcium 8.8 mg/dL (8.5-10.1); Chloride 103 mmol/L (98-107); Glucose 111 mg/dL (70-100); Sodium 140 mmol/L (136-145); Total Protein 7.5 g/dL (6.4-8.2)
[2017-11-15] MEDS: Normal Saline Flush 10 ML SYR IVP (11:06)
[2017-11-16] MEDS: Normal Saline Flush 10 ML SYR IVP (10:31)
[2017-11-17] MEDS: Normal Saline Flush 10 ML SYR IVP (11:04)
[2017-11-18] MEDS: Normal Saline Flush 10 ML SYR IVP (10:17)
[2017-11-19] MEDS: Normal Saline Flush 10 ML SYR IVP (10:33)
== END 2017-11-19 23:59 | disposition home or self-care (01) ==
LOC: INF 00:08
PROVIDERS: Visit Provider Student in an Organized Health Care Education/Training Program
DX: E11.9 Type 2 diabetes mellitus without complications (principal); T84.54XA Infection and inflammatory reaction due to internal left knee prosthesis, initial encounter; Z96.652 Presence of left artificial knee joint
CPT/HCPCS: 36591; 36592; 80053; 85027; 96365; 86140

== ENCOUNTER 2017-12-06 10:44 | Outpatient (RCR) | payer MEDICARE, SELFPAY ==
[2017-11-20] MEDS: Normal Saline Flush 10 ML SYR IVP (11:13)
[2017-11-21] MEDS: Normal Saline Flush 10 ML SYR IVP (10:48)
[2017-11-22] MEDS: Normal Saline Flush 10 ML SYR IVP (10:48)
[2017-11-23] MEDS: Normal Saline Flush 10 ML SYR IVP (10:44)
[2017-11-23 11:20] LABS: HCT 29.7 % (36.0-46.0); HGB 9.1 g/dL (12.0-15.5); Mean Corp. HGB Concentration 30.6 g/dL (32.0-36.0); Mean Corpuscular Hemoglobin 27.1 pg (27.0-33.0); Mean Corpuscular Volume 88.4 fL (80-95); RBC 3.36 m/cumm (4.00-5.20); RBC Distribution Width 14.3 % (11.7-14.6); White Blood Cell Count 5.37 k/cumm (4.4-10.8)
[2017-11-23 11:21] LABS: Platelet Count 294 x1000/uL (130-400)
[2017-11-23 11:33] LABS: C-Reactive Protein 0.35 mg/dL (0.0-0.3)
[2017-11-24] MEDS: Normal Saline Flush 10 ML SYR IVP (11:05)
[2017-11-25] MEDS: Normal Saline Flush 10 ML SYR IVP (10:04)
[2017-11-26] MEDS: Normal Saline Flush 10 ML SYR IVP (11:30)
--- NOTE | 2017-11-26 11:30 | NUR.NOTE ---
Pt arrived for PICC line flush- flush done as per protocol, pt left with dressing to picc intact.
[2017-11-27] MEDS: Bacitracin 1 PACKET (10:15)
[2017-12-06 11:27] LABS: HCT 32.7 % (36.0-46.0); Mean Corp. HGB Concentration 30.6 g/dL (32.0-36.0); Mean Corpuscular Hemoglobin 26.2 pg (27.0-33.0); Mean Corpuscular Volume 85.8 fL (80-95); Mean Platelet Volume 9.9 fL (8.0-11.0); Platelet Count 374 x1000/uL (130-400); RBC 3.81 m/cumm (4.00-5.20); RBC Distribution Width 14.6 % (11.7-14.6); White Blood Cell Count 5.74 k/cumm (4.4-10.8)
[2017-12-06 11:48] LABS: ALT 24 U/L (12-78); AST 19 U/L (15-37); Albumin 3.6 g/dL (3.4-5.0); Alkaline Phosphatase 58 U/L (46-116); Anion Gap 10.7 mmol/L (3-11); BUN 11 mg/dL (7-18); Bilirubin, Total 0.8 mg/dL (0.2-1.0); CO2 24.3 mmol/L (21.0-32.0); Calcium 8.7 mg/dL (8.5-10.1); Chloride 105 mmol/L (98-107); Glucose 120 mg/dL (70-100); Sodium 140 mmol/L (136-145); Total Protein 7.6 g/dL (6.4-8.2)
[2017-12-06 11:55] LABS: C-Reactive Protein 0.33 mg/dL (0.0-0.3)
== END 2017-12-20 23:59 | disposition home or self-care (01) ==
LOC: INF 10:44
PROVIDERS: Visit Provider Student in an Organized Health Care Education/Training Program
DX: T84.54XA Infection and inflammatory reaction due to internal left knee prosthesis, initial encounter (principal); Z96.652 Presence of left artificial knee joint
CPT/HCPCS: 36415; 36592; 80053; 85027; 96365; 96523; 86140

== ENCOUNTER → 2017-12-08 08:45 | Outpatient (BNVA) | payer MEDICARE, SELFPAY | PROVIDERS: Visit Provider Student in an Organized Health Care Education/Training Program | DX: T84.54XD Infection and inflammatory reaction due to internal left knee prosthesis, subsequent encounter (principal); M25.462 Effusion, left knee; Z96.652 Presence of left artificial knee joint | CPT/HCPCS: 20610 ==

== ENCOUNTER 2017-12-08 12:34 | Outpatient (REF) | payer MEDICARE, SELFPAY ==
[2017-12-08 13:38] LABS: Source L KNEE
[2017-12-08 13:39] LABS: Nucleated Cells 647 /MM3 (0-0)
[2017-12-08 13:40] LABS: Mononuclear Cells 75 % (0-0); Other Cells 2 0 (0-0); Polynuclear Cells 23 % (0-0)
== END 2017-12-08 12:54 ==
LOC: LBN 12:34
PROVIDERS: Visit Provider Student in an Organized Health Care Education/Training Program
DX: M25.462 Effusion, left knee (principal)
CPT/HCPCS: 87070; 87205; 89051

== ENCOUNTER 2017-12-21 11:04 | Outpatient (CLI) | payer MEDICARE, SELFPAY | END 2017-12-21 11:24 | PROVIDERS: Visit Provider Student in an Organized Health Care Education/Training Program | DX: T84.54XA Infection and inflammatory reaction due to internal left knee prosthesis, initial encounter (principal); Z01.818 Encounter for other preprocedural examination | CPT/HCPCS: 36415; 86850; 86900; 86901 ==

== ENCOUNTER 2017-12-22 05:56 | Inpatient (IN) | payer MEDICARE, SELFPAY ==
[2017-12-22] VITALS (17 sets, daily range): BP systolic 96–132; BP diastolic 60–86; PULSE 76–90; RESP 11–20; TEMP 36.4–37.7; O2SAT 93–100
[2017-12-22] MEDS: Celecoxib 200 MG CAP 400 MG PO (06:44)
[2017-12-22] MEDS: Lactated Ringers 1,000 ML 80 ML IV ×3 (06:44→13:03)
[2017-12-22] MEDS: oxyCODONE-CR 10 MG TABCR PO (06:44)
[2017-12-22] MEDS: Acetaminophen 500 MG TAB 1000 MG PO ×2 (06:44→17:06)
[2017-12-22] MEDS: Gabapentin 300 MG CAP PO ×2 (06:46→14:01)
[2017-12-22] MEDS: Bupivacaine 0.25% Pres-Free 10 ML VIAL (07:15)
[2017-12-22] MEDS: Bupivacaine LIPOSOME/PF 133 MG/10 ML VIAL IJ ×2 (07:15→10:10)
[2017-12-22] MEDS: Ketorolac 30 MG/ML VIAL (10:10)
[2017-12-22] MEDS: Bupivacaine 0.25% Pres-Free 30 ML VIAL (10:10)
--- NOTE | 2017-12-22 12:12 | DI.RAD_ITS ---
SYMPTOM/DIAGNOSIS: S/P REVISION TKA PORTABLE LEFT KNEE: Multiple views. Comparison is made with 10/19/17. The patient is now status post left total knee replacement. The orthopedic hardware appears in good position. The bones are intact. Skin ced are present. IMPRESSION: Status post left TKR.
[2017-12-22] MEDS: Albuterol/Ipratropium 3 ML UPD VIAL UPD (12:55)
[2017-12-22] MEDS: Insulin Aspart 300 UNITS/3 ML PEN SC ×2 (13:02→17:03)
--- NOTE | 2017-12-22 13:06 | PDOC.CMIN ---
- If Service Date Differs Date of service: 12/22/17 Time of Service: 13:06 Care Management Initial Assess REASON FOR HOSPITALIZATION:: Left TKA revision. PAST MEDICAL HISTORY/PAST SURGICAL HISTORY:: Asthma, depressive disorder, hyperlipidemia, diabetes, obesity, sleep apnea. Surgical hx: cholecystectomy, infection of total left knee replacement. PREVIOUS FUNCTIONAL STATUS/SOCIAL/FAMILY SUPPORTS:: Barbara resides in [place] with her , Rishi. There is a ramp going up to her home. She has disability support in the community due to her ongoing knee and back problems. Barbara was admitted to [facility] in September of this year for an infected left TKA. She is independent with her ADLS in the community. CURRENT FUNCTIONAL STATUS:: Barbara is lying in bed with , Rishi, at bedside, when CM visits this morning. She is engaged in conversation, makes good eye contact, and is talkative. Barbara reports that her pain is tolerable. She has a cryo cuff in place and is receiving IV fluids and antibiotics. PT will begin working with her later today or tomorrow morning. Barbara has had outpatient PT with Wayne Saha in the past and reports that she will likely be seeing him for PT following this discharge. ADVANCE DIRECTIVES:: On file at [facility]. Has patient been provided with information about the portal?: Yes Did the patient sign up for the portal?: No CODE STATUS:: Full Code INSURANCE COVERAGE / FINANCIAL ISSUES:: Medicare. [facility] Financial Assistance. CURRENT HOME/COMMUNITY SERVICES/EQUIPMENT:: [facility]; [facility], [facility]; [facility]icia [facility], Sussy Lewis, Campus Administrator. Equipment: FWW, wheel chair, ramp. PRIMARY CARE PHYSICIAN:: Gissell Davis NP. POTENTIAL DISCHARGE NEEDS:: Follow up appointment with MD. PATIENT/FAMILY EDUCATION NEEDS:: Discharge education, any limitations, and follow up plan of care. Ask Me Three discussion. ANTICIPATED BARRIERS TO DISCHARGE:: No anticipated barriers to discharge. TRANSPORTATION:: Barbara will transport via private vehicle with her , Rishi. PLAN:: Barbara will discharge when medically ready per MD. Anticipate patient will discharge home with no services and follow up with MD. CM will continue to offer patient, family, and care team regarding discharge planning and disposition.
--- NOTE | 2017-12-22 13:31 | INITIAL_ITS ---
- If Service Date Differs Date of service: 12/22/17 Time of Service: 13:06 Care Management Initial Assess REASON FOR HOSPITALIZATION:: Left TKA revision. PAST MEDICAL HISTORY/PAST SURGICAL HISTORY:: Asthma, depressive disorder, hyperlipidemia, diabetes, obesity, sleep apnea. Surgical hx: cholecystectomy, infection of total left knee replacement. PREVIOUS FUNCTIONAL STATUS/SOCIAL/FAMILY SUPPORTS:: Barbara resides in [place] with her , Rishi. There is a ramp going up to her home. She has disability support in the community due to her ongoing knee and back problems. Barbara was admitted to [facility] in September of this year for an infected left TKA. She is independent with her ADLS in the community. CURRENT FUNCTIONAL STATUS:: Barbara is lying in bed with , Rishi, at bedside , when CM visits this morning. She is engaged in conversation, makes good eye contact, and is talkative. Barbara reports that her pain is tolerable. She has a cryo cuff in place and is receiving IV fluids and antibiotics. PT will begin working with her later today or tomorrow morning. Barbara has had outpatient PT with Wayne Saha in the past and reports that she will likely be seeing him for PT following this discharge. ADVANCE DIRECTIVES:: On file at [facility]. Has patient been provided with information about the portal?: Yes Did the patient sign up for the portal?: No CODE STATUS:: Full Code INSURANCE COVERAGE / FINANCIAL ISSUES:: Medicare. [facility] Financial Assistance. CURRENT HOME/COMMUNITY SERVICES/EQUIPMENT:: [employer]; [facility], [facility]; [facility]icia [facility], [place], Sussy Lewis, Supervisor [employer]. Equipment: FWW , wheel chair, ramp. PRIMARY CARE PHYSICIAN:: Gissell Davis NP. POTENTIAL DISCHARGE NEEDS:: Follow up appointment with MD. PATIENT/FAMILY EDUCATION NEEDS:: Discharge education, any limitations, and follow up plan of care. Ask Me Three discussion. ANTICIPATED BARRIERS TO DISCHARGE:: No anticipated barriers to discharge. TRANSPORTATION:: Barbara will transport via private vehicle with her , Rishi. PLAN:: Barbara will discharge when medically ready per MD. Anticipate patient will discharge home with no services and follow up with MD. CM will continue to offer patient, family, and care team regarding discharge planning and disposition.
[2017-12-22] MEDS: oxyCODONE 5 MG TAB PO ×2 (14:02→21:29)
--- NOTE | 2017-12-22 15:18 | NUR.NOTE ---
Nursing Note: 12/22/17@1237- Admited from PACU to room 205 via bed. Hover mat used for transfer. Well tolerated by patient. LS clear & diminished. enc to take deep breaths. Denies difficulties. BS +. Denies nausea. PO clears given. Mukherjee to gravity drainage. Small amount concentrated yellow urine in bag. LK revision dressing CDI. LT knee immobilizer & Cryo cuff in use. states pain is zero at this time. PP+. oriented to room and call johnston system. Teds and SCd's applied. pillows used for positioning. Alert & oriented bed alarm not on.
--- NOTE | 2017-12-22 15:20 | PT.INIE ---
Date of service: 12/22/17 Time of Service: 15:21 PT Notes Date: 12/22/17 Referring Doctor: Raheel Gongora PT Orders: PT Consult: s/p revision L TKA Precautions: WBAT LLE, knee immobilizer in bed, should be removed for gait/transfers per MD PATIENT PROFILE/ADMITTING DIAGNOSIS: Pt is a 47yr old female s/p left total knee arthroplasty revision 12/22/[address] Gongora PMHX: left total knee arthroplasty, right total knee arthroplasty, obesity, chronic obstructive pulmonary disease, diabetes mellitus, asthma, degenerative joint disease right knee, bilateral sciatica, chronic headaches, anxiety, depression, gastroesophageal reflux disease, cholecystectomy, hysterectomy, 4 hernia repairs Social History/Home Situation: Lives with in a trailer, ramp to enter, baseline mobility independent gait with no device, independent with ADLS Equipment owned/DME: FWW, wheelchair SUBJECTIVE: Pt lying in bed, agreeable to PT Consult. MD in room providing patient with instructions for use of knee immobilizer and cryocuff OBJECTIVE:g Mental Status: A& O x3 Pain: no c/o pain BED MOBILITY/TRANSFERS: * knee immobilizer and cryocuff REMOVED for out of bed transfers Supine-sit: independent Sit-stand: supervision with FWW Stand-sit: supervision Sit-supine: independent * cryocuff and knee immobilizer re-applied in bed GAIT: * knee immobilizer and cryocuff REMOVED for gait SBA with FWW 25ftx2 WBAT L LE. Gait focus is on heel strike, loading and maintaining heel contact L LE to promote knee extension with gait BALANCE: Static sitting: normal Dynamic Sitting: normal Static Standing fair Dynamic Standing fair SPECIAL TESTS: Mobility Limitations Standardized Measure [facility] AM -PAC ?6 clicks? Basic Mobility Inpatient Short Form: raw score: 18 standardized score: 43.63 CMS score: 46.58% CMS modifier: CK INFORMED CONSENT/EDUCATION: Pt instructed in purpose of PT Consult and plan of care. ASSESSMENT: Pt is a 47yr old female s/p left total knee arthroplasty revision 12/22/[address] Gongora in setting of s/p left total knee arthroplasty 07/07/17 , s/p right total knee arthroplasty 12/20/16,obesity, chronic obstructive pulmonary disease, diabetes mellitus, asthma, degenerative joint disease right knee, bilateral sciatica, chronic headaches, anxiety, depression. Patient presents with the following impairment level findings: decreased left knee extension, decreased strength left quad, decreased standing balance requiring FWW for gait stability. Pt will benefit from short term therapy intervention for transfer training, strengthening and progressive mobility training. Impairments are contributing to the following functional limitations: AMPAC score CMS score: 46.58% Patient is assessed as a * low complexity 67591 based on the following: History: see above Examination: see above Presentation: stable Decision Making: AMPAC score CMS score: 46.58% GOALS 1. supine-sit: independent 2. sit-supine: independent 3. sit-stand: independent 4. Stand-sit: independent 5. Bed-chair: supervision with FWW 6. Chair-bed: supervision with FWW 7. Gait: supervision with FWW 200ft WBAT L LE 8. 0 extension left knee PLAN OF CARE/TREATMENT PLAN: 1-2x/day, 7 days/week x 1 week ECONOMIC FORECASTER instructed in plan of care Initiate physical therapy for strengthening LE's, bed mobility, transfers, gait with FWW, use of knee immobilizer and cryocuff, instruction in gait mechanics to promote knee extension DISCHARGE RECOMMENDATIONS Home with , pt has all DME TREATMENT TIME/MINUTES/CODES 32min IE 1515 G Codes in the area of mobility and walking around, current status GP [id number] with projected status GP [id number] and discharge status GP [id number] based on AMPAC score CMS score: 46.58% Idalmis Auguste PT
--- NOTE | 2017-12-22 15:30 | IN_ITS ---
Date of service: 12/22/17 Time of Service: 15:21 PT Notes Date: 12/22/17 Referring Doctor: Raheel Gongora PT Orders: PT Consult: s/p revision L TKA Precautions: WBAT LLE, knee immobilizer in bed, should be removed for gait/ transfers per MD PATIENT PROFILE/ADMITTING DIAGNOSIS: Pt is a 47yr old female s/p left total knee arthroplasty revision 12/22/[address] Gongora PMHX: left total knee arthroplasty, right total knee arthroplasty, obesity, chronic obstructive pulmonary disease, diabetes mellitus, asthma, degenerative joint disease right knee, bilateral sciatica, chronic headaches, anxiety, depression, gastroesophageal reflux disease, cholecystectomy, hysterectomy, 4 hernia repairs Social History/Home Situation: Lives with in a trailer, ramp to enter, baseline mobility independent gait with no device, independent with ADLS Equipment owned/DME: FWW, wheelchair SUBJECTIVE: Pt lying in bed, agreeable to PT Consult. MD in room providing patient with instructions for use of knee immobilizer and cryocuff OBJECTIVE:g Mental Status: A& O x3 Pain: no c/o pain BED MOBILITY/TRANSFERS: * knee immobilizer and cryocuff REMOVED for out of bed transfers Supine-sit: independent Sit-stand: supervision with FWW Stand-sit: supervision Sit-supine: independent * cryocuff and knee immobilizer re-applied in bed GAIT: * knee immobilizer and cryocuff REMOVED for gait SBA with FWW 25ftx2 WBAT L LE. Gait focus is on heel strike, loading and maintaining heel contact L LE to promote knee extension with gait BALANCE: Static sitting: normal Dynamic Sitting: normal Static Standing fair Dynamic Standing fair SPECIAL TESTS: Mobility Limitations Standardized Measure [facility] AM -PAC ?6 clicks? Basic Mobility Inpatient Short Form: raw score: 18 standardized score: 43.63 CMS score: 46.58% CMS modifier: CK INFORMED CONSENT/EDUCATION: Pt instructed in purpose of PT Consult and plan of care. ASSESSMENT: Pt is a 47yr old female s/p left total knee arthroplasty revision 12/22/[address] Gongora in setting of s/p left total knee arthroplasty , s/p right total knee arthroplasty 12/20/16,obesity, chronic obstructive pulmonary disease, diabetes mellitus, asthma, degenerative joint disease right knee, bilateral sciatica, chronic headaches, anxiety, depression. Patient presents with the following impairment level findings: decreased left knee extension, decreased strength left quad, decreased standing balance requiring FWW for gait stability. Pt will benefit from short term therapy intervention for transfer training, strengthening and progressive mobility training. Impairments are contributing to the following functional limitations: AMPAC score CMS score: 46.58% Patient is assessed as a * low complexity 36903 based on the following: History: see above Examination: see above Presentation: stable Decision Making: AMPAC score CMS score: 46.58% GOALS 1. supine-sit: independent 2. sit-supine: independent 3. sit-stand: independent 4. Stand-sit: independent 5. Bed-chair: supervision with FWW 6. Chair-bed: supervision with FWW 7. Gait: supervision with FWW 200ft WBAT L LE 8. 0 extension left knee PLAN OF CARE/TREATMENT PLAN: 1-2x/day, 7 days/week x 1 week SPECIFICATION CONSULTANT instructed in plan of care Initiate physical therapy for strengthening LE's, bed mobility, transfers, gait with FWW, use of knee immobilizer and cryocuff, instruction in gait mechanics to promote knee extension DISCHARGE RECOMMENDATIONS Home with , pt has all DME TREATMENT TIME/MINUTES/CODES 32min IE 1515 G Codes in the area of mobility and walking around, current status GP [id number] with projected status GP [id number] and discharge status GP [id number] based on AMPAC score CMS score: 46.58% Idalmis Auguste PT
[2017-12-22] MEDS: Montelukast 10 MG TAB PO (21:28)
[2017-12-22] MEDS: Celecoxib 200 MG CAP PO (21:29)
[2017-12-22] MEDS: Gabapentin 300 MG CAP 600 MG PO (21:30)
[2017-12-22] MEDS: Budesonide/Formoterol 160/4.5 6 GM 60 PUFF INH IH (21:39)
[2017-12-22] MEDS: Levalbuterol HFA 15 GM INH 2 PUFF IH (22:38)
[2017-12-23] VITALS (9 sets, daily range): BP systolic 95–117; BP diastolic 60–80; PULSE 70–90; RESP 16–24; TEMP 37–37.6; O2SAT 92–98
[2017-12-23] MEDS: Lactated Ringers 1,000 ML 80 ML IV (02:10)
[2017-12-23] MEDS: Acetaminophen 500 MG TAB 1000 MG PO ×3 (03:03→19:08)
[2017-12-23] MEDS: oxyCODONE 5 MG TAB PO ×5 (03:07→20:11)
[2017-12-23 07:34] LABS: HCT 24.3 % (36.0-46.0); HGB 7.2 g/dL (12.0-15.5); Mean Corp. HGB Concentration 29.6 g/dL (32.0-36.0); Mean Corpuscular Hemoglobin 25.6 pg (27.0-33.0); Mean Corpuscular Volume 86.5 fL (80-95); Mean Platelet Volume 10.2 fL (8.0-11.0); Platelet Count 238 x1000/uL (130-400); RBC 2.81 m/cumm (4.00-5.20); RBC Distribution Width 15.3 % (11.7-14.6); White Blood Cell Count 8.44 k/cumm (4.4-10.8)
[2017-12-23 07:53] LABS: Anion Gap 9.2 mmol/L (3-11); BUN 18 mg/dL (7-18); CO2 26.8 mmol/L (21.0-32.0); CREATININE 0.74 mg/dL (0.55-1.02); Calcium 8.2 mg/dL (8.5-10.1); Chloride 103 mmol/L (98-107); Glucose 124 mg/dL (70-100); Potassium 3.6 mmol/L (3.5-5.1); Sodium 139 mmol/L (136-145)
[2017-12-23] MEDS: Rivaroxaban 10 MG TABLET PO (08:30)
[2017-12-23] MEDS: Celecoxib 200 MG CAP PO ×2 (08:30→19:09)
[2017-12-23] MEDS: FLUoxetine 20 MG CAP 60 MG PO (08:31)
[2017-12-23] MEDS: Gabapentin 300 MG CAP 600 MG PO ×2 (08:31→19:09)
[2017-12-23] MEDS: Sucralfate 1 GM TAB PO ×2 (08:31→19:08)
[2017-12-23] MEDS: Cetirizine 10 MG TAB PO (08:32)
[2017-12-23] MEDS: metFORMIN 500 MG TAB 1000 MG PO ×2 (08:33→17:10)
[2017-12-23] MEDS: Esomeprazole 40 MG CAPCR PO (08:33)
--- NOTE | 2017-12-23 08:56 | W.PM.PROGNOT ---
Date of Service Date of service: 12/23/17 Time of Service: 08:57 Assessment and Plan (1) Infection of total left knee replacement: Current visit: Yes Status: Acute Fay is status post revision knee arthroplasty for an infected knee replacement. She is doing well. We will continue immobilization. She will need 24 hours of antibiotics. We will use aspirin as DVT prophylaxis. She is to keep the knee immobilizer on to encourage extension when she is not awake or when laying in the bed. When she is mobilizing it may be off. She has no restrictions. (2) Acute blood loss anemia: Current visit: Yes Status: Acute Fay has acute blood loss anemia. Her current hemoglobin is 7.2 and will continue to drop as it usually does for the first 2-3 days postoperatively. Given the need for early mobilization I will go ahead and proceed with transfusion. Subjective Interval history since last seen: Fay reports be doing well. She feels like the pain is controlled. She has been working on keeping the knee straight overnight. She was able to ablate yesterday. She does feel fatigued but currently denies any chest pain, shortness of breath, palpitation, fever, or chills. Exam Narrative Exam Narrative: Evaluation of the left leg shows a clean dry and intact dressing. She is able straight leg raise. Currently the knee is about 5 degrees short of extension. She has full sensation over the deep and superficial peroneal nerves and tibial nerve. The foot is warm and well perfused. Objective Objective Clinical Data: Abnormal lab results 12/23/17 12/23/17 Range/Units 06:55 06:55 RBC 2.81 L (4.00-5.20) m/cumm Hgb 7.2 L (12.0-15.5) g/dL Hct 24.3 L (36.0-46.0) % MCH 25.6 L (27.0-33.0) pg MCHC 29.6 L (32.0-36.0) g/dL RDW 15.3 H (11.7-14.6) % Glucose 124 H (70-100) mg/dL Calcium 8.2 L (8.5-10.1) mg/dL Vital Signs Temperature 37.0 C 12/23/17 03:07 Temperature Source Tympanic 12/23/17 03:07 Pulse 72 12/23/17 03:07 Pulse Rhythm Regular 12/22/17 22:45 Respiratory Rate 16 12/23/17 03:07 Respiratory Effort Non-Labored 12/22/17 22:45 Respiratory Depth Normal 12/22/17 22:45 Respiratory Pattern Normal 12/22/17 22:45 Blood Pressure 102/66 12/23/17 03:07 Pulse Oximetry 95 12/23/17 03:07 Respiratory End-tidal CO2 38 12/22/17 12:07 Oxygen Delivery Method Room Air 12/23/17 03:07 Oxygen Flow Rate 0 12/23/17 03:07 Pain Level 5 12/23/17 08:32 Comment 12/22/17 19:45 Intake & Output 12/22/17 12/22/17 12/23/17 11:59 23:59 11:59 Intake Total 1510 / 1510 1212.000 / 1212.000 925.333 / 925.333 Output Total 600 / 600 300 / 300 Balance 910 / 910 912.000 / 912.000 925.333 / 925.333 Weight 83 kg Intake: IV 1510 / 1510 492.000 / 492.000 925.333 / 925.333 Oral 720 / 720 Output: Urine 100 / 100 300 / 300 Estimated Blood Loss 500 / 500 Other: Urine Color Yellow Yellow Urine Appearance Clear Clear Emesis Description None None Laboratory Results WBC 8.44 k/cumm (4.4-10.8) 12/23/17 06:55 RBC 2.81 m/cumm (4.00-5.20) L 12/23/17 06:55 Hgb 7.2 g/dL (12.0-15.5) L 12/23/17 06:55 Hct 24.3 % (36.0-46.0) L 12/23/17 06:55 MCV 86.5 fL (80-95) 12/23/17 06:55 MCH 25.6 pg (27.0-33.0) L 12/23/17 06:55 MCHC 29.6 g/dL (32.0-36.0) L 12/23/17 06:55 RDW 15.3 % (11.7-14.6) H 12/23/17 06:55 Plt Count 238 x1000/uL (130-400) D 11/03/18 06:55 MPV 10.2 fL (8.0-11.0) 12/23/17 06:55 Sodium 139 mmol/L (136-145) 12/23/17 06:55 Potassium 3.6 mmol/L (3.5-5.1) 12/23/17 06:55 Chloride 103 mmol/L (98-107) 12/23/17 06:55 Carbon Dioxide 26.8 mmol/L (21.0-32.0) 12/23/17 06:55 Anion Gap 9.2 mmol/L (3-11) 12/23/17 06:55 BUN 18 mg/dL (7-18) 12/23/17 06:55 Creatinine 0.74 mg/dL (0.55-1.02) 12/23/17 06:55 Estimated GFR/1.73 m2 >= 60.00 (mL/min/1.73m2) 12/23/17 06:55 Glucose 124 mg/dL (70-100) H 12/23/17 06:55 Calcium 8.2 mg/dL (8.5-10.1) L 12/23/17 06:55
[2017-12-23] MEDS: Budesonide/Formoterol 160/4.5 6 GM 60 PUFF INH IH ×2 (10:00→20:13)
[2017-12-23] MEDS: diphenhydrAMINE 25 MG CAP PO (10:58)
[2017-12-23] MEDS: Magnesium Oxide 400 MG TAB PO (11:00)
--- NOTE | 2017-12-23 11:00 | PTTR_ITS ---
Date of service: 12/23/17 Time of Service: 10:57 PT Notes 12/23/17 SUBJECTIVE: Fay stating her knee is a little achy today but tolerable. She has been wearing her immobilizer when in bed. OBJECTIVE: Supine in bed. Agreeable to PT treatment. Bed mobility/transfers: supine to sit: I Sit to stand: S Stand to sit: S Gait: Device: FWW Weight bearing: WBAT L Assist: SBA Distance: 50' Deviation: without use of immobilizer Therex: Pt performs 20 reps of the following: Quad sets, glut sets, ankle pumps. She performs AA SLR x 10 reps. ASSESSMENT: Progressing well with gait with focus on heel toe gait pattern to encourage knee extension. She was encouraged to perform her quad sets in bed with immobilizer on often throughout the day. PLAN: Continue current POC progressing towards established goals. Time: 15 minutes TEE Weeks, MANAGER TREAS[employer]Y
[2017-12-23] MEDS: Normal Saline Flush 10 ML SYR IV (11:01)
--- NOTE | 2017-12-23 11:46 | PHARADMIT ---
Admission Pharmacy Clinical Review LEFT PROSTHETIC KNEE INFECTION/Knee revision 12/22/17 () Code Status Full Code Current Weight 83 kg Renally Cleared and Narrow Therapeutic Index Meds CrCl~125ml/min QTc Value / Action Taken BP Control, Fever BP 110/72 Afebrile Pain 08/29 Electrolytes reviewed K+ 3.6 DVT Prophylaxis Xarelto 10mg daily post-op Opiate Usage / Scheduled Bowel Regimen Ordered yes Oxy IR/yes bowel meds Plt/SCr for Heparin / Enoxaparin Plt 238 SCr 0.74 INR for Warfarin H/H stable, WBC/Bands H/H 7.2/24.3 WBC 8.44 Antibiotic appropriateness knee aspiration collected 12/08/17 was no growth Cultures and Sensitivities Surgical ABX d/c within 24 hr Cefazolin complete DM control / Insulin Dosing BG 124 (Metformin, Novolog pen scale) Heart Failure (Check EF%) (CHICHO's, B-Block, Diuretics) IV to PO Switch Home Meds Reviewed Advair changed to Symbicort per formulary Home Meds Not Ordered Flexeril, lactase Comments Getting 1 unit of blood today 12/23/17
--- NOTE | 2017-12-23 11:58 | CMPROGNOTE_ITS ---
- If Service Date Differs Date of service: 12/23/17 Time of Service: 11:47 Care Management Progress Note S/O: Barbara is lying in bed with her , Rishi, at bedside when CM visits this morning. She is engaged in conversation and is talkative. Patient is one day p/o knee arthroplasty; admitted with a left periprosthetic knee infection. Barbara has just finished working with PT (ambulating in the hallway with walker and standby assist) and she reports that her pain is a 7/10. She has just received pain medication. Barbara's H&H is low this morning (7.2,24.3) and the MD has ordered her a unit of blood. Barbara's richmond was removed this morning and she reports she has been voiding x2 and had two BMs. Barbara will not be needing DME at discharge as she has a walker and wheelchair at home. A: 47 year old female admitted with a left periprosthetic knee infection. P: Barbara will discharge home when medically ready per MD. Anticipate patient will discharge with out patient PT at [facility] and follow up with surgical services. Barbara will transport via private vehicle with her , Rishi. CM will continue to offer support to patient and care team regarding discharge planning and disposition.
[2017-12-23] MEDS: Insulin Aspart 300 UNITS/3 ML PEN SC (12:01)
[2017-12-23] MEDS: Gabapentin 300 MG CAP PO (13:59)
[2017-12-23] MEDS: Montelukast 10 MG TAB PO (20:11)
[2017-12-23] MEDS: Diazepam 5 MG TAB PO (20:11)
[2017-12-23] MEDS: Levalbuterol HFA 15 GM INH 2 PUFF IH (20:12)
[2017-12-24] MEDS: oxyCODONE-CR 10 MG TABCR PO ×2 (00:04→07:47)
[2017-12-24 00:28] VITALS: BP 107/67; PULSE 77; RESP 17; TEMP 36; O2SAT 95
[2017-12-24 03:33] VITALS: BP 106/72; PULSE 71; RESP 17; TEMP 36.4; O2SAT 97
[2017-12-24] MEDS: oxyCODONE 5 MG TAB PO ×2 (04:12→07:47)
[2017-12-24] MEDS: Celecoxib 200 MG CAP PO (07:47)
[2017-12-24 07:48] VITALS: BP 106/67; PULSE 75; RESP 18; TEMP 36.9; O2SAT 98
[2017-12-24] MEDS: Sucralfate 1 GM TAB PO (07:48)
[2017-12-24] MEDS: Acetaminophen 500 MG TAB 1000 MG PO (07:50)
[2017-12-24 07:51] LABS: HCT 29.3 % (36.0-46.0); HGB 8.8 g/dL (12.0-15.5); Mean Corpuscular Hemoglobin 26.1 pg (27.0-33.0); Mean Corpuscular Volume 86.9 fL (80-95); Mean Platelet Volume 10.1 fL (8.0-11.0); Platelet Count 245 x1000/uL (130-400); RBC 3.37 m/cumm (4.00-5.20); RBC Distribution Width 15.3 % (11.7-14.6); White Blood Cell Count 6.75 k/cumm (4.4-10.8)
[2017-12-24 07:59] LABS: Anion Gap 8.5 mmol/L (3-11); BUN 14 mg/dL (7-18); CO2 25.5 mmol/L (21.0-32.0); Calcium 8.3 mg/dL (8.5-10.1); Chloride 105 mmol/L (98-107); Glucose 115 mg/dL (70-100); Potassium 4.1 mmol/L (3.5-5.1); Sodium 139 mmol/L (136-145)
--- NOTE | 2017-12-24 08:34 | DSE_ITS ---
Date of service: 12/24/17 Time of Service: 08:34 DS: Diagnosis Discharge Diagnosis (1) Infection of total left knee replacement: Status: Acute (2) Acute blood loss anemia: Status: Acute Discharge Plan Disposition Patient Disposition: HOME Condition: Good Discharge Details Reason For Visit: LEFT PERIPROSTHETIC KNEE INFECTION Admit Date/Time: 12/22/17 05:56 Admit Provider: Raheel Gongora Attending Provider: Raheel Gongora Primary Care Provider: Gissell Davis Hospital Course Hospital Course: Patient was admitted to the medical/surgical floor following the procedure. It was tolerated well without any notable medical, surgical, or anesthetic complications. Mobilization began postoperatively. The richmond catheter was removed and voiding spontaneously. Her postoperative hemoglobin had dropped to 7.2, acute postoperative blood loss anemia. She was transfused 1 unit and tolerated this well with discharge hemoglobin of 8.8. Vitals were stable. Physical therapy worked with the patient and was cleared for discharge home. No acute medical issues. Home Meds and New Rx's Prescriptions: New oxycodone 5 mg tablet 5 - 10 mg PO Q4H Qty: 24 RF: 0 Continue acetaminophen [Mapap Extra Strength] 500 mg tablet 1,000 mg PO Q8H PRN PRN (Reason: pain) Qty: 100 RF: 3 cholecalciferol (vitamin D3) [Vitamin D3] 2,000 UNIT capsule 2,000 unit PO DAILY RF: 0 triamcinolone acetonide 15 GM cream 1 gm Topical daily prn Qty: 1 RF: 3 blood-glucose meter [OneTouch UltraMini] 1 EACH kit 1 ea Miscellaneous DAILY Qty: 1 RF: 0 blood sugar diagnostic [OneTouch Ultra Test] 1 EACH strip 1 ea Miscellaneous DAILY Qty: 100 RF: 3 lactase [Lactase Fast Acting] 9,000 UNIT tablet 9,000 unit PO AC & HS Qty: 90 RF: 0 lancets [OneTouch UltraSoft Lancets] 1 EACH misc 1 ea Miscellaneous DAILY Qty: 100 RF: 3 magnesium oxide 500 MG capsule 500 mg PO DAILY Qty: 1 RF: 0 albuterol sulfate 2.5 MG/3 ML solution for nebulization 2.5 mg Inhalation Q6H PRN Qty: 360 RF: 4 sucralfate [Carafate] 1 GM tablet 1 g PO BID Qty: 180 RF: 3 esomeprazole magnesium [Nexium] 40 MG capsule,delayed release(DR/EC) 40 mg PO DAILY Qty: 90 RF: 3 metformin 1,000 MG tablet 1,000 mg PO BID Qty: 180 RF: 3 nystatin 15 GM cream 1 gm Topical BID Qty: 15 RF: 1 fluoxetine 40 MG capsule 40 mg PO DAILY Qty: 90 RF: 3 cetirizine 10 MG tablet 10 mg PO DAILY Qty: 90 RF: 4 montelukast [Singulair] 10 MG tablet 10 mg PO HS Qty: 90 RF: 3 fluoxetine 20 MG capsule 20 mg PO DAILY Qty: 90 RF: 3 gabapentin 300 MG capsule 1 - 2 tab-cap PO TID Qty: 270 RF: 3 fluticasone-salmeterol [Advair Diskus] 1 EACH blister with device 1 puff Inhalation BID Qty: 1 RF: 6 levalbuterol tartrate [Xopenex HFA] 15 GM HFA aerosol inhaler 2 puff Inhalation Q4H PRN Qty: 4 RF: 4 polyethylene glycol 3350 17 GM powder in packet 17 gm PO BID PRN PRN (Reason: Constipation) RF: 0 ondansetron 4 mg tablet,disintegrating 4 mg PO TID PRN (Reason: nausea and vomiting) Qty: 10 RF: 0 promethazine 12.5 mg tablet 12.5 mg PO Q6H PRN (Reason: nausea and vomiting) Qty: 10 RF: 3 acetaminophen [Mapap Extra Strength] 500 MG tablet 1,000 mg PO TID PRN PRNQty: 90 RF: 1 rivaroxaban [Xarelto] 10 mg Tablet 10 mg PO DAILY Qty: 14 RF: 0 Changed celecoxib 200 mg capsule 200 mg PO BID Qty: 30 RF: 0 Discontinued diazepam 5 mg tablet 5 mg PO HS Qty: 14 RF: 0 Discharge Instructions Additional Instructions: Dr. Gongora?s Total Knee Discharge Instructions Activity: The most important activity is to walk. You should try to take short walks a few times a day. When you walk, you need to focus on heel strike and trying to hyperextend (straighten) the knee. It is important that when resting you work on keeping the knee straight with a pillow or prop under the heel and nothing behind the knee. Avoid putting a pillow behind the knee as this will encourage flexion. Work on range of motion exercises as provided by Physical Therapy. When you sleep, you should put the knee in the knee immobilizer. - Start outpatient physical therapy within 2 weeks. - You should wear the LINA hose on both legs for 4 weeks. Dressing: Keep the surgical dressing in place for at least one week. After the first week it may be removed and replace with light gauze and tape or nothing. It may get wet after 3 days but avoid soaking the dressing. If it gets wet, just lightly pat dry. Medications: - You should take Tylenol and anti-inflammatory (Celebrex) as your primary pain control medications - You have been prescribed a stronger pain medication (Oxycodone) for breakthrough pain, take as needed as prescribed. - You will be taking Rivaroxaban (Xarelto) 10mg once a day for DVT prevention unless instructed otherwise. - If you have constipation you should take Colace or Miralax (both over-the- counter). It takes most people 3-4 days to have a bowel movement. Follow-up: 2 weeks Activity:: Activity as Tolerated Equipment/Supplies:: No Equipment Needed Diet:: Normal Diet Discharge Orders Discharge Orders: Discharge Order (Routine); Ordered 12/24/17 Ordered By: Raheel Gongora DS: Data Vitals/I&O Vitals and I&O: Vital Signs Temperature 36.9 C 12/24/17 07:48 Temperature Source Tympanic 12/24/17 07:48 Pulse 75 12/24/17 07:48 Pulse Rhythm Regular 12/23/17 23:57 Respiratory Rate 18 12/24/17 07:48 Respiratory Effort Non-Labored 12/23/17 23:57 Respiratory Depth Normal 12/23/17 23:57 Respiratory Pattern Normal 12/23/17 23:57 Blood Pressure 106/67 12/24/17 07:48 Pulse Oximetry 98 12/24/17 07:48 Respiratory End-tidal CO2 38 12/22/17 12:07 Oxygen Delivery Method Room Air 12/24/17 07:48 Oxygen Flow Rate 0 12/24/17 07:48 Pain Level 7 12/24/17 07:50 Comment 12/22/17 19:45 Intake & Output 12/23/17 12/23/17 12/24/17 11:59 23:59 10:59 Intake Total 1645.333 / 4979.615 1063 / 2600 250 / 250 Output Total 400 / 400 Balance 1245.333 / 1016.386 0748 / 2600 250 / 250 Intake: IV 925.333 / 640.162 0368 / 1100 Oral 720 / 720 1200 / 1200 250 / 250 Blood Product 250 / 250 Rbc Leuko Reduced Unit 250 / 250 [id number] Other 50 / 50 Rbc Leuko Reduced Unit 50 / 50 [id number] Output: Urine 400 / 400 Other: Urine Color Yellow Yellow Urine Appearance Clear Clear Urine Odor Normal Stool Size Large Stool Characteristics Soft Formed Voiding Methods Toilet Labs on day of discharge: Labs from last 24 hours 12/24/17 12/24/17 12/23/17 07:40 07:40 09:00 WBC 6.75 RBC 3.37 L Hgb 8.8 L Hct 29.3 L D MCV 86.9 MCH 26.1 L MCHC 30.0 L RDW 15.3 H Plt Count 245 MPV 10.1 Sodium 139 Potassium 4.1 Chloride 105 Carbon Dioxide 25.5 Anion Gap 8.5 BUN 14 Creatinine 0.70 Estimated GFR/1.73 m2 >= 60.00 Glucose 115 H Calcium 8.3 L Patient ABO/Rh Cancelled Antibody Screen Crossmatch See Detail 12/21/17 11:15 WBC RBC Hgb Hct MCV MCH MCHC RDW Plt Count MPV Sodium Potassium Chloride Carbon Dioxide Anion Gap BUN Creatinine Estimated GFR/1.73 m2 Glucose Calcium Patient ABO/Rh A Positive Antibody Screen Negative Crossmatch See Detail
[2017-12-24] MEDS: Rivaroxaban 10 MG TABLET PO (08:39)
[2017-12-24] MEDS: Gabapentin 300 MG CAP 600 MG PO (08:39)
[2017-12-24] MEDS: Esomeprazole 40 MG CAPCR PO (08:40)
[2017-12-24] MEDS: FLUoxetine 20 MG CAP 60 MG PO (08:40)
[2017-12-24] MEDS: metFORMIN 500 MG TAB 1000 MG PO (08:40)
[2017-12-24] MEDS: Cetirizine 10 MG TAB PO (08:40)
[2017-12-24] MEDS: Budesonide/Formoterol 160/4.5 6 GM 60 PUFF INH IH (09:10)
[2017-12-24] MEDS: Magnesium Oxide 400 MG TAB PO (09:47)
--- NOTE | 2017-12-24 11:03 | PTTR_ITS ---
Date of service: 12/24/17 Time of Service: 11:01 PT Notes 12/24/17 SUBJECTIVE: Fay stating she is going home soon. She just returned from a walk to and from the bathroom and does not want to get up again right now. She feels confident in going home. OBJECTIVE: Supine in bed. Agreeable to PT. Therex: Pt completes her bed exercises including quad strengthening and ROM activities. Review exercises for home completion including appropriate positioning when lying down and avoiding pillows under her knees to encourage extension. Review heel to toe gait mechanics. See flow sheet for specifics. She ends with cyro therapy. ASSESSMENT: Pt has a good understanding of her home program. Encouraged a balance of rest and walking throughout the day. PLAN: Pt will be D/C home. See discharge summary. Time: 15 minutes CELINE Weeks, PARTS COUNTER SPECIALIST
[2017-12-24 11:45] VITALS: BP 109/67; PULSE 73; RESP 18; TEMP 36.5; O2SAT 98
--- NOTE | 2017-12-24 13:38 | ROE_ITS ---
DATE OF SURGERY: December 22, 2017 PREOPERATIVE DIAGNOSIS: Periprosthetic left knee infection with explantation of spacer. POSTOPERATIVE DIAGNOSIS: Same. SURGERY: Revision knee arthroplasty with removal of antibiotic spacer of the left knee. SURGEON: Raheel Gongora M.D. [employer]IGHT FORWARDER: Marilee Coughlin PA-C ANESTHESIA: General with an adductor nerve block. FINDINGS: The cement spacer was able to be removed without significant difficulty. The tissue quality was good. The bone quality was good without any significant losses. There were no signs of infection. A revision knee component was placed. ESTIMATED BLOOD LOSS: 500 cc COMPLICATIONS: None. DISPOSITION: The patient was awakened from anesthesia and taken to the PACU in stable condition. INDICATION FOR PROCEDURE: Fay is a 47-year-old who, unfortunately, developed an infection of her left knee replacement. This was treated with a two-stage revision. She initially had the prosthetic piece removed with extensive debridement and placement of an antibiotic spacer. She has completed her six weeks of antibiotics as well as the spacer. Repeat labs had normalized and repeat aspirations were negative for infection. She, therefore, was ready for reimplantation of the left knee component. I reviewed the risks of the procedure to include bleeding, infection, pain, stiffness, damage to nerves and vessels, damage to muscles and tendons, need for repeat procedures, and blood clot. Despite these risks she elected to proceed. PROCEDURE DESCRIPTION: Fay was greeted in the preoperative holding area. Her identity was confirmed and the correct side was identified and marked. The consent was reviewed with the patient and signed. This History and Physical was updated. She was taken back to the PACU where an adductor nerve block was administered. She was then taken to the Operating Room and placed in a supine position with all bony prominences well padded. A general anesthetic was given. A nonsterile tourniquet was placed high up onto the left thigh. The leg was positioned with a bump and with post and footrest for positioning during surgery. The left leg was prepped with ChloraPrep and draped in a standard fashion. A time-out was performed for safe surgery. Prophylactic antibiotics in the form of cefazolin were given. The previous incision site was then opened up and extended. This was taken down sharply through the skin. The extensor mechanism was identified and large subcutaneous flaps were raised, exposing the extensor mechanism. Sutures from the previous surgery were identified as a marking for the medial parapatellar arthrotomy. This arthrotomy was then performed with full thickness depth all the way down into the knee. This was extended proximally and distally for full exposure. Remnant sutures were removed sharply. There were no signs of infection. There was no significant effusion. There was very minimal synovitis seen. A limited synovectomy was performed throughout the knee. The medial retinacular tissues were released off the proximal medial tibia and the attachments to the patellar tendon with scar were removed as well to allow patellar mobilization. The patella had a nice synovial coating over it and this was left in place. The knee was then brought up into flexion with the patella everted. The cement spacer was able to be removed with light taps from the bone tamp. The femur was removed first. The tibia was removed again without difficulty. There was no significant bone loss from the time of the previous surgery. A curette and rongeur were used to remove any soft tissue that was on the edges of the bone. This exposed some bleeding from the bone. This was done for both the femur and the tibia. Once this was finalized and we had good exposure, we then proceeded with preparation of implantation. Starting with the tibia, the canal was reamed up to a size 12-mm diameter. Once this was placed, the proximal tibia was then reamed and a metaphyseal sleeve was chosen to be used. This was broached to a 29-mm sleeve. I sunk this a few millimeters below the current cut surface to freshen up the cut. With the sleeve in place, I then used this as a cutting guide. It has a built- in posterior slope. The tibia was then cut on top of the metaphyseal sleeve. A trial tibial component was placed and it seemed to be that the size 2 had the best fit. A size 2 tibia was then placed on top of this. We then tested out our extension gap. It was quite tight with a 20.5-mm spacer. I then proceeded with the femoral cut first. This was again first done by creating the canal fit. The femoral canal was reamed up to a size 14-mm diameter. The distal femur was reamed for the metaphyseal sleeve. I then broached up to a size 31- mm femoral sleeve. With this in place, the cutting guide was placed onto the end of the femur and the cut was freshened. This cut was set for a 5-degree valgus cut. Once this was done, again the spacer block was placed which showed to have a full fit. It was tight in extension but it was able to come to full extension. Flexion gap was also then checked which did show an adequate flushing gap with a 22.5-mm spacer. With the knee held in 90 degrees of flexion , the spacer block was placed on the tibial component and allowed the femoral component to assume its rotation. It seemed to be more than the 3 degrees it was previously placed at. However, it had balanced flexion gap so this was then pinned in place. This cut seemed to err slightly off of the anteromedial aspect of the femur and the posterolateral aspect of the femur. The cuts were then made. A 4-mm augment would be used on the lateral side and this cut was also freshened as well. The size 2.5 femur had the best fit which was trialed previously. Once this was performed, the sleeve was left in the femur and the cutting block was removed. The notch cutting device was then placed. This was cut for a posterior stabilized femoral implant. This was cut without difficulty. The trial components were then inserted. Once these were in place we tested the knee out which was noted to have full extension as well as full flexion. There was no significant instability seen with either medial or lateral collateral ligament testing. The patella was slighting lateral but still tracking with the no-thumbs technique. Rotation was checked again on the tibia to make sure we were externally rotated appropriately. There was also good coverage of the tibial surface. The trial components were then removed, making sure to maintain the exact rotation as they were in their trial position. These were then placed on the back table. The tourniquet was then inflated. The wound was thoroughly irrigated. Again, any soft tissue remnants were removed and debrided sharply. A posterior capsular release was done using a Perez elevator both on the distal femur and the proximal tibia. There was significant posterior synovium. A portion of the periarterial cocktail was then injected into the posterior capsular tissues. This consisted of 0.25% bupivacaine along with 10 cc of Exparel and 30 mg of ketorolac. This was injected into the posterior capsular tissues. The bone appeared to be well prepared. On the back table, the final components were assembled. These consisted of a 75 x 12 mm tibial stem, 29 mm metaphyseal seal, and a size 2 rotation platform and tibial component. The rotation was evaluated from the trial components and set on the final components before being impacted appropriately per technical recommendations. The femur was then assembled. This consisted of a 75 x 14 mm stem, 31 mm metaphyseal sleeve, a 2.5 posterior stabilized femoral component with a 5-degree adapter, and a 4-mm augment for the posterolateral femur. Once again, the rotation was set based on the trial components. It was then impacted into position. Two boxes of high-viscosity with gentamicin were prepared on the back table. Once these were ready a small amount was placed onto the chamfer portions of the femoral components. The tibial surface was manually impacted with cement. The tibial component was then inserted manually and then impacted fully until it rested fully onto the tibia. Excess cement was removed. Rotation was evaluated and maintained during this impaction process. Once it was fully in place, we then turned our attention to the femur. Cement was manually impacted into the cut surfaces of the distal femur. The femoral component was then impacted into position until it was fully seated on the distal femur. Excess cement was removed. A size 12.5-mm poly was inserted and the knee was brought into extension where it stayed for the entire curing process of the cement. The remainder of the periarticular cocktail was injected along the capsular tissues and within the soft tissues of the left knee. The wound was thorough irrigated. A Betadine wash was also done during this time. Once the cement had fully cured the knee was tested and noted to have full extension and 125 degrees of flexion. There was no significant instability. Therefore, the 12.5-mm rotating platform tibial insert was then chosen and placed without difficulty. With the knee in 90 degrees of flexion, I then closed the arthrotomy. This was done with a #1 PDS which is antibiotic laden. This was done with a bqvold-hy-tgigw technique. The entire arthrotomy was closed with this suture. The tourniquet was release and there was no significant bleeding. The deep tissues were then closed with a #0 and a #2-0 Vicryl. Per patient's request the skin was closed with ced. A Mepilex dressing was applied. A ervh-vj-yrqqo Lawrence wrap was wrapped along the leg. She was placed in a knee immobilizer in full extension. At the end of the case all counts were correct. She was transferred to the PACU in a stable condition.
--- NOTE | 2017-12-24 14:15 | PDOC.CMDIS ---
LACE Index Scoring Tool - Questions: Length of Stay (in days): 3 Acuity (Admit via E.D.?): No E.D. Visits: 0 - Answers: Total Score: 3 Risk of Readmission: Low Risk Care Management Discharge Reason for Hospitalization: Left TKA revision. Discharge Plan: Barbara will discharge when medically ready per MD. She will discharge home with no services and follow up with Dr. Gongora and her PCP. She will transport via private vehicle with her . Patient/Family Education Needs: Review discharge instructions, discuss Ask Me Three.
--- NOTE | 2017-12-25 09:29 | PT.INDS ---
Date of service: 12/24/17 Time of Service: 16:00 PT Notes Inpatient Physical Therapy Discharge Summary Date: 12/24/17 Dates of Service: 12/22/17-12/23/17 SUBJECTIVE: NT OBJECTIVE: 12/22/17-12/23/17 BED MOBILITY/TRANSFERS: Supine-sit: independent Sit-stand: supervision Stand-sit: supervision Sit-supine: independent GAIT: SBA with FWW 50ft WBAT L LE BALANCE: Static sitting: normal Dynamic Sitting: normal Static Standing fair Dynamic Standing fair ASSESSMENT: Pt is a 47yr old female s/p left total knee arthroplasty revision 12/22/[address] Gongora in setting of s/p left total knee arthroplasty 07/07/17 , s/p right total knee arthroplasty 12/20/16,obesity, chronic obstructive pulmonary disease, diabetes mellitus, asthma, degenerative joint disease right knee, bilateral sciatica, chronic headaches, anxiety, depression. Patient was seen for 2 PT visits. Progressed from gait with FWW 25ftx2 to 50ft. Pt was discharged to home setting with home program. GOALS 1. supine-sit: independent 2. sit-supine: independent 3. sit-stand: independent 4. Stand-sit: independent 5. Bed-chair: supervision with FWW 6. Chair-bed: supervision with FWW 7. Gait: supervision with FWW 200ft WBAT L LE 8. 0 extension left knee Pt met goals # 1, 2, 5, 6 - recommend home PT to meet remaining goals DISCHARGE RECOMMENDATIONS Home with , pt has all DME G Codes in the area of mobility and walking around with projected status GP [id number] and discharge status GP [id number] Idalmis Auguste PT
--- NOTE | 2017-12-25 09:32 | INDS_ITS ---
Date of service: 12/24/17 Time of Service: 16:00 PT Notes Inpatient Physical Therapy Discharge Summary Date: 12/24/17 Dates of Service: 12/22/17-12/23/17 SUBJECTIVE: NT OBJECTIVE: 12/22/17-12/23/17 BED MOBILITY/TRANSFERS: Supine-sit: independent Sit-stand: supervision Stand-sit: supervision Sit-supine: independent GAIT: SBA with FWW 50ft WBAT L LE BALANCE: Static sitting: normal Dynamic Sitting: normal Static Standing fair Dynamic Standing fair ASSESSMENT: Pt is a 47yr old female s/p left total knee arthroplasty revision 12/22/[address] Gongora in setting of s/p left total knee arthroplasty , s/p right total knee arthroplasty 12/20/16,obesity, chronic obstructive pulmonary disease, diabetes mellitus, asthma, degenerative joint disease right knee, bilateral sciatica, chronic headaches, anxiety, depression. Patient was seen for 2 PT visits. Progressed from gait with FWW 25ftx2 to 50ft. Pt was discharged to home setting with home program. GOALS 1. supine-sit: independent 2. sit-supine: independent 3. sit-stand: independent 4. Stand-sit: independent 5. Bed-chair: supervision with FWW 6. Chair-bed: supervision with FWW 7. Gait: supervision with FWW 200ft WBAT L LE 8. 0 extension left knee Pt met goals # 1, 2, 5, 6 - recommend home PT to meet remaining goals DISCHARGE RECOMMENDATIONS Home with , pt has all DME G Codes in the area of mobility and walking around with projected status GP [id number] and discharge status GP [id number] Idalmis Auguste PT
== END 2017-12-24 12:39 | disposition home or self-care (01) | DRG 467 ==
LOC: PDS 08:56 → MS 09:03
PROVIDERS: Admitting Provider Student in an Organized Health Care Education/Training Program; Visit Provider Student in an Organized Health Care Education/Training Program
PROC: 0SPD0EZ Removal of Articulating Spacer from Left Knee Joint, Open Approach (ICD-10-PCS; CPT 27487; principal; 2017-12-22 07:30)
DX: D62 Acute posthemorrhagic anemia; Z96.652 Presence of left artificial knee joint; T84.54XA Infection and inflammatory reaction due to internal left knee prosthesis, initial encounter; K21.9 Gastro-esophageal reflux disease without esophagitis; E11.9 Type 2 diabetes mellitus without complications; Z79.84 Long term (current) use of oral hypoglycemic drugs
CPT/HCPCS: 27487; 36415; 76942; 80048; 85027; 86850; 86900; 86901; 86920; 94640; 97110; 97161; 97530; NC; 73560; J0690; J1100; J1885; J2250; J2405; J7620; L1830; P9016

== ENCOUNTER 2018-01-03 10:08 | Outpatient (CLI) | payer MEDICARE, SELFPAY | END 2018-01-03 10:28 | PROVIDERS: Visit Provider Student in an Organized Health Care Education/Training Program | DX: Z47.1 Aftercare following joint replacement surgery (principal); Z96.652 Presence of left artificial knee joint | CPT/HCPCS: 73560; 77073 ==

== ENCOUNTER 2018-01-03 10:44 | Outpatient (CLI) | payer MEDICARE, SELFPAY ==
--- NOTE | 2018-01-03 10:09 | DI.RAD_ITS ---
SYMPTOMS/DIAGNOSIS: S/P REVISION OF LEFT TKA LEFT KNEE: Three views were obtained. There is a total knee joint replacement in position. Components appear well seated. No other significant bony abnormality seen.
== END 2018-01-03 11:04 ==
PROVIDERS: Visit Provider Physician Assistant
DX: Z47.1 Aftercare following joint replacement surgery (principal); Z96.652 Presence of left artificial knee joint
CPT/HCPCS: 73560

== ENCOUNTER → 2018-01-26 09:11 | Outpatient (BNVA) | payer MEDICARE, SELFPAY | PROVIDERS: Visit Provider Student in an Organized Health Care Education/Training Program | DX: Z96.652 Presence of left artificial knee joint (principal); Z47.1 Aftercare following joint replacement surgery ==

== ENCOUNTER 2018-02-05 13:45 | Outpatient (CLI) | payer MEDICARE, SELFPAY ==
--- NOTE | 2018-02-05 13:30 | DI.US_ITS ---
SYMPTOMS/DIAGNOSIS: LLE PAIN, M79.605 LEFT LOWER EXTREMITY ULTRASOUND: The deep veins of the left lower extremity show normal compression, augmentation and color flow. No evidence of a left lower extremity deep venous thrombus is identified. IMPRESSION: No evidence of a left lower extremity DVT.
[2018-02-05 14:35] LABS: HCT 35.3 % (36.0-46.0); HGB 10.8 g/dL (12.0-15.5); Mean Corp. HGB Concentration 30.6 g/dL (32.0-36.0); Mean Corpuscular Hemoglobin 25.7 pg (27.0-33.0); Platelet Count 375 x1000/uL (130-400); RBC Distribution Width 17.2 % (11.7-14.6); White Blood Cell Count 8.69 k/cumm (4.4-10.8)
[2018-02-05 15:21] LABS: C-Reactive Protein 0.39 mg/dL (0.0-0.3)
== END 2018-02-05 14:05 ==
PROVIDERS: Visit Provider Student in an Organized Health Care Education/Training Program
DX: M79.605 Pain in left leg (principal); Z96.652 Presence of left artificial knee joint; T84.54XA Infection and inflammatory reaction due to internal left knee prosthesis, initial encounter
CPT/HCPCS: 36415; 85027; 73560; 86140; 93971

== ENCOUNTER 2018-02-05 14:02 | Outpatient (CLI) | payer MEDICARE, SELFPAY ==
--- NOTE | 2018-02-05 13:22 | DI.RAD_ITS ---
SYMPTOMS/DIAGNOSIS: NEW PAIN S/P REVISION LEFT TKA LEFT KNEE: Two views. Comparison is 01/03/18. There are again seen postsurgical changes of a left total knee replacement. No evidence of hardware failure is seen. There is decrease in the prepatellar soft tissue swelling since 01/03/18. No evidence of hardware failure, or osseous fracture or dislocation is seen. IMPRESSION: Stable left TKR.
== END 2018-02-05 14:22 ==
PROVIDERS: Visit Provider Student in an Organized Health Care Education/Training Program
DX: Z96.652 Presence of left artificial knee joint (principal); M25.562 Pain in left knee; Z47.1 Aftercare following joint replacement surgery
CPT/HCPCS: 73560

== ENCOUNTER → 2018-03-07 09:54 | Outpatient (BNVA) | payer MEDICARE, SELFPAY | PROVIDERS: Visit Provider Student in an Organized Health Care Education/Training Program | DX: Z96.652 Presence of left artificial knee joint (principal); Z47.1 Aftercare following joint replacement surgery | CPT/HCPCS: L1820 ==

== ENCOUNTER 2018-03-19 13:28 | Outpatient (CLI) | payer MEDICARE, SELFPAY ==
--- NOTE | 2018-03-19 13:24 | DI.RAD_ITS ---
SYMPTOM/DIAGNOSIS: FALL AND DIRECT TRAUMA WITH NEW PAIN LEFT KNEE: Comparison is made with 05 Feb 2018. There is a total knee prosthesis with long stem components of the femur and tibia. There has been no change in the alignment. No bony changes are seen.
== END 2018-03-19 13:48 ==
PROVIDERS: Visit Provider Student in an Organized Health Care Education/Training Program
DX: Z96.652 Presence of left artificial knee joint (principal); M25.562 Pain in left knee; S80.02XA Contusion of left knee, initial encounter; W22.09XA Striking against other stationary object, initial encounter
CPT/HCPCS: 99213; 73560; L1820

== ENCOUNTER 2018-04-16 11:27 | Outpatient (CLI) | payer MEDICARE, SELFPAY ==
--- NOTE | 2018-04-16 11:26 | DI.RAD_ITS ---
SYMPTOMS/DIAGNOSIS: S/P LT TKA REVISION LEFT KNEE: Comparison is made with [id number]. There is a knee prosthesis in place. The components of the prosthesis are not fully included on the exam. There has been no change from the previous exam.
== END 2018-04-16 11:47 ==
PROVIDERS: Visit Provider Student in an Organized Health Care Education/Training Program
DX: Z96.652 Presence of left artificial knee joint (principal); Z47.1 Aftercare following joint replacement surgery; M25.562 Pain in left knee; E11.9 Type 2 diabetes mellitus without complications; Z79.84 Long term (current) use of oral hypoglycemic drugs
CPT/HCPCS: 29105; 99213; 73560; L1820

== ENCOUNTER 2018-04-22 08:48 | Inpatient (IN) | payer MEDICARE, SELFPAY ==
[2018-04-22] VITALS (11 sets, daily range): BP systolic 95–111; BP diastolic 48–89; PULSE 65–104; RESP 16–20; TEMP 36.4–37.4; O2SAT 96–100
--- NOTE | 2018-04-22 09:09 | W.ED.GENAD ---
Discharge Plan Disposition Patient Disposition: [facility] INPATIENT Condition: Stable Discharge Details Chief Complaint: Orthopedic Clinical Impression: Knee pain, left, Post-operative complication Primary Care Provider: Gissell Davis ED Provider: Sujit Bowen Home Meds and New Rx's Prescriptions: No Action oxycodone 5 mg tablet 5 mg PO HS MDD 5mg Qty: 7 RF: 0 meloxicam 7.5 mg tablet 7.5 mg PO BID Qty: 60 RF: 0 alprazolam [Xanax] 0.5 mg tablet 0.5 mg PO BID PRN (Reason: anxiety) Qty: 10 RF: 0 levalbuterol tartrate [Xopenex HFA] 45 mcg/actuation HFA aerosol inhaler 2 puff Inhalation Q4H PRN Qty: 4 RF: 4 acetaminophen [Mapap Extra Strength] 500 mg tablet 1,000 mg PO TID PRN PRN (Reason: pain) Qty: 90 RF: 6 cholecalciferol (vitamin D3) [Vitamin D3] 2,000 UNIT capsule 2,000 unit PO DAILY RF: 0 triamcinolone acetonide 15 GM cream 1 gm Topical daily prn Qty: 1 RF: 3 blood-glucose meter [Next PointsTouch UltraMini] 1 EACH kit 1 ea Miscellaneous DAILY Qty: 1 RF: 0 Lactase Fast Acting 9,000 UNIT tablet 9,000 unit PO AC & HS Qty: 90 RF: 0 lancets [Next PointsTouch UltraSoft Lancets] 1 EACH misc 1 ea Miscellaneous DAILY Qty: 100 RF: 3 magnesium oxide 500 MG capsule 500 mg PO DAILY Qty: 1 RF: 0 albuterol sulfate 2.5 MG/3 ML solution for nebulization 2.5 mg Inhalation Q6H PRN Qty: 360 RF: 4 sucralfate [Carafate] 1 GM tablet 1 g PO BID Qty: 180 RF: 3 metformin 1,000 MG tablet 1,000 mg PO BID Qty: 180 RF: 3 nystatin 15 GM cream 1 gm Topical BID Qty: 15 RF: 1 fluoxetine 40 MG capsule 40 mg PO DAILY Qty: 90 RF: 3 cetirizine 10 MG tablet 10 mg PO DAILY Qty: 90 RF: 4 montelukast [Singulair] 10 MG tablet 10 mg PO HS Qty: 90 RF: 3 fluoxetine 20 MG capsule 20 mg PO DAILY Qty: 90 RF: 3 gabapentin 300 MG capsule 1 - 2 tab-cap PO TID Qty: 270 RF: 3 Advair Diskus 1 EACH blister with device 1 puff Inhalation BID Qty: 1 RF: 6 OneTouch Ultra Test strip 1 ea Miscellaneous DAILY Qty: 100 RF: 4 esomeprazole magnesium [Nexium] 40 mg capsule,delayed release(DR/EC) 40 mg PO DAILY Qty: 90 RF: 3 Medical Decision Making This is a pleasant 47-year-old female with a long history of surgeries, occasional complications, and repeat orthopedic evaluations of her left knee. She presents today with 2-3 days of mild pain in her left knee. She denies any systemic symptoms of fever or chills. She did see Dr. Gongora in [facility], and upon evaluation sent her to the ER for further evaluation. Here in the emergency department Dr. Gongora removed synovial fluid from the knee, and there was concern for infection. Labs will be sent for culture and fluid analysis. Per Dr. Gongora patient will be brought to the OR for further more definitive surgical management. Patient's pain is controlled, vital signs are stable and reassuring. Fluid will be started, pain is well controlled at this time. I have extensively reviewed the treatment plan with the patient. I have addressed all patient concerns at this time. I have also discussed the plan with the admitting physician and they agree with the current assessment and plan and have agreed to assume responsibility for the patient. All parties demonstrate verbal understanding and agreement with our assessment and plan at this time. HPI General Date/Time Provider Initiated Documentation: 04/22/18 09:04. HPI Narrative: This is a 47-year-old female with a past medical history significant for multiple surgeries on her left knee, who presents today for knee pain for the last 2-3 days. She denies any fevers, pain is been gradually getting worsened, worsened with movement. There is mild swelling and warmth in the left knee. She has history of infections in the past in this knee pain postoperatively. She had seen Dr. Gongora in the [facility], who sent her to the ER for further evaluation. Patient denies any recent trauma, or any other systemic symptoms of fever, chills, vomiting, diarrhea, numbness tingling or weakness. She is not currently on any antibiotics. Related Data Home Medications Medication Instructions Recorded Confirmed cholecalciferol (vitamin D3) 2,000 unit PO DAILY 05/19/15 04/16/18 [Vitamin D3] triamcinolone acetonide 1 gm TOPICAL daily prn #1 tube 06/01/16 04/16/18 blood-glucose meter [Next PointsTouch #1 kit 06/13/16 04/16/18 UltraMini] Lactase Fast Acting 9,000 unit PO AC & HS #90 tab-cap 09/05/16 04/16/18 lancets [Next PointsTouch UltraSoft #100 ea 09/12/16 04/16/18 Lancets] magnesium oxide 500 mg PO DAILY #1 11/30/16 04/16/18 albuterol sulfate 2.5 mg INHALATION Q6H PRN #360 ml 01/16/17 04/16/18 sucralfate [Carafate] 1 g PO BID #180 tab-cap 01/20/17 04/16/18 metformin 1,000 mg PO BID #180 tab-cap 04/17/17 04/16/18 nystatin 1 gm TOPICAL BID #15 gm 05/02/17 04/16/18 cetirizine 10 mg PO DAILY #90 tab-cap 05/22/17 04/16/18 fluoxetine 20 mg PO DAILY #90 tab-cap 05/22/17 04/16/18 fluoxetine 40 mg PO DAILY #90 tab-cap 05/22/17 04/16/18 montelukast [Singulair] 10 mg PO HS #90 tab 05/22/17 04/16/18 gabapentin 1 - 2 tab-cap PO TID #270 tab-cap 07/19/17 04/16/18 Advair Diskus 1 puff INHALATION BID #1 puff 08/16/17 04/16/18 blood sugar diagnostic strips #100 strip 01/21/18 04/16/18 esomeprazole magnesium 40 mg 40 mg PO DAILY #90 tab-cap 02/08/18 04/16/18 capsule,delayed release meloxicam 7.5 mg tablet 7.5 mg PO BID #60 tab 03/19/18 04/16/18 oxycodone 5 mg tablet 5 mg PO HS #7 tab MDD 5mg 03/19/18 04/16/18 alprazolam 0.5 mg tablet 0.5 mg PO BID PRN #10 tab 03/29/18 04/16/18 levalbuterol HFA 45 mcg/actuation 2 puff INHALATION Q4H PRN #4 03/29/18 04/16/18 aerosol inhaler inhaler acetaminophen 500 mg tablet 1,000 mg PO TID PRN PRN #90 tab 04/16/18 04/16/18 Previous Rx's Medication Instructions Recorded albuterol sulfate 2.5 mg INHALATION Q6H PRN #360 ml 01/16/17 sucralfate [Carafate] 1 g PO BID #180 tab-cap 01/20/17 metformin 1,000 mg PO BID #180 tab-cap 04/17/17 nystatin 1 gm TOPICAL BID #15 gm 05/02/17 cetirizine 10 mg PO DAILY #90 tab-cap 05/22/17 fluoxetine 20 mg PO DAILY #90 tab-cap 05/22/17 fluoxetine 40 mg PO DAILY #90 tab-cap 05/22/17 montelukast [Singulair] 10 mg PO HS #90 tab 05/22/17 gabapentin 1 - 2 tab-cap PO TID #270 tab-cap 07/19/17 Advair Diskus 1 puff INHALATION BID #1 puff 08/16/17 blood sugar diagnostic strips #100 strip 01/21/18 esomeprazole magnesium 40 mg 40 mg PO DAILY #90 tab-cap 02/08/18 capsule,delayed release meloxicam 7.5 mg tablet 7.5 mg PO BID #60 tab 03/19/18 oxycodone 5 mg tablet 5 mg PO HS #7 tab MDD 5mg 03/19/18 alprazolam 0.5 mg tablet 0.5 mg PO BID PRN #10 tab 03/29/18 levalbuterol HFA 45 mcg/actuation 2 puff INHALATION Q4H PRN #4 03/29/18 aerosol inhaler inhaler acetaminophen 500 mg tablet 1,000 mg PO TID PRN PRN #90 tab 04/16/18 Allergies Allergy/AdvReac Type Severity Reaction Status Date / Time latex Allergy Severe HIVES, Verified 04/16/18 10:57 ITCHING erythromycin base AdvReac Intermediate NAUSEA, Verified 04/16/18 10:57 VOMITING hydromorphone AdvReac Intermediate Nausea Verified 04/16/18 10:57 chlorhexidine AdvReac Mild Itching Verified 04/16/18 10:57 [From Hibiclens] codeine AdvReac NAUSEA, Verified 04/16/18 10:57 VOMITING General Stated Complaint: Orthopedic SHAYNE: 3 Review of Systems Review of Systems All systems reviewed & are unremarkable except as noted in HPI and below PFSH Medical History Depression with anxiety (Acute) Abdominal discomfort, epigastric (Acute) Acute blood loss anemia (Acute) Asthma (Chronic) Hyperlipidemia (Chronic) Diabetes (Chronic 06/07/16) 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) Migraine (Chronic 03/01/12) Obesity (Chronic) Organic sleep apnea, unspecified (Chronic) Candidal skin infection GERD (gastroesophageal reflux disease) Gastroparesis Incisional hernia Surgical History 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 3.ENT: Atraumatic external nose and ears. Moist MM. Neck: Symmetric, trachea midline, No thyromegaly. 4.CVS: +S1/S2, No murmurs or gallops. Peripheral pulses 2+ and equal in all extremities. Brisk capillary refill in all extremities. 5.RESP: Unlabored respiratory effort. Clear to auscultation bilaterally. No wheezes rales or rhonchi 6.GI: Soft, Nontender/Nondistended, No hepatosplenomegaly. No guarding or rebound. 7.MSK: Normocephalic, mild swelling of the left knee, postsurgical site is intact, excellent healing of the knee from previous surgery. Minimal swelling. Mild tenderness with palpation and movement. Minimal warmth. Pain is not out of proportion, compartments are soft. 8.Skin: Warm, Dry. No rashes or lesions. 9.Neuro: shipfitter II-XII grossly intact. Sensation grossly intact, no focal neurologic deficits. 10.Psych: (AAO) x3. Appropriate mood and affect Course Vital Signs Temperature 36.4 C L 04/22/18 08:55 Pulse 104 H 04/22/18 08:55 Respiratory Rate 20 04/22/18 08:55 Blood Pressure 107/61 04/22/18 08:55 Pulse Oximetry 100 04/22/18 08:55 Temperature 36.4 C L 04/22/18 08:55 Temperature Source Temporal Artery Scan 04/22/18 08:55 Pulse 104 H 04/22/18 08:55 Respiratory Rate 20 04/22/18 08:55 Blood Pressure 107/61 04/22/18 08:55 Blood Pressure Position Sitting 04/22/18 08:55 Pulse Oximetry 100 04/22/18 08:55 Oxygen Delivery Method Room Air 04/22/18 08:55 Oxygen Flow Rate 0 04/22/18 08:55 Pain Level 6 04/22/18 09:01 Lab/Test Results Lab/Test Results: 04/22/18 09:06 Blood Blood Culture - Pending 04/22/18 09:06 Blood Blood Culture - Pending
--- NOTE | 2018-04-22 09:16 | ED.GENADUL_ITS ---
Discharge Plan Disposition Patient Disposition: [facility] INPATIENT Condition: Stable Discharge Details Chief Complaint: Orthopedic Clinical Impression: Knee pain, left, Post-operative complication Primary Care Provider: Gissell Davis ED Provider: Sujit Bowen Home Meds and New Rx's Prescriptions: No Action oxycodone 5 mg tablet 5 mg PO HS MDD 5mg Qty: 7 RF: 0 meloxicam 7.5 mg tablet 7.5 mg PO BID Qty: 60 RF: 0 alprazolam [Xanax] 0.5 mg tablet 0.5 mg PO BID PRN (Reason: anxiety) Qty: 10 RF: 0 levalbuterol tartrate [Xopenex HFA] 45 mcg/actuation HFA aerosol inhaler 2 puff Inhalation Q4H PRN Qty: 4 RF: 4 acetaminophen [Mapap Extra Strength] 500 mg tablet 1,000 mg PO TID PRN PRN (Reason: pain) Qty: 90 RF: 6 cholecalciferol (vitamin D3) [Vitamin D3] 2,000 UNIT capsule 2,000 unit PO DAILY RF: 0 triamcinolone acetonide 15 GM cream 1 gm Topical daily prn Qty: 1 RF: 3 blood-glucose meter [Dilithium NetworksTouch UltraMini] 1 EACH kit 1 ea Miscellaneous DAILY Qty: 1 RF: 0 Lactase Fast Acting 9,000 UNIT tablet 9,000 unit PO AC & HS Qty: 90 RF: 0 lancets [Dilithium NetworksTouch UltraSoft Lancets] 1 EACH misc 1 ea Miscellaneous DAILY Qty: 100 RF: 3 magnesium oxide 500 MG capsule 500 mg PO DAILY Qty: 1 RF: 0 albuterol sulfate 2.5 MG/3 ML solution for nebulization 2.5 mg Inhalation Q6H PRN Qty: 360 RF: 4 sucralfate [Carafate] 1 GM tablet 1 g PO BID Qty: 180 RF: 3 metformin 1,000 MG tablet 1,000 mg PO BID Qty: 180 RF: 3 nystatin 15 GM cream 1 gm Topical BID Qty: 15 RF: 1 fluoxetine 40 MG capsule 40 mg PO DAILY Qty: 90 RF: 3 cetirizine 10 MG tablet 10 mg PO DAILY Qty: 90 RF: 4 montelukast [Singulair] 10 MG tablet 10 mg PO HS Qty: 90 RF: 3 fluoxetine 20 MG capsule 20 mg PO DAILY Qty: 90 RF: 3 gabapentin 300 MG capsule 1 - 2 tab-cap PO TID Qty: 270 RF: 3 Advair Diskus 1 EACH blister with device 1 puff Inhalation BID Qty: 1 RF: 6 OneTouch Ultra Test strip 1 ea Miscellaneous DAILY Qty: 100 RF: 4 esomeprazole magnesium [Nexium] 40 mg capsule,delayed release(DR/EC) 40 mg PO DAILY Qty: 90 RF: 3 Medical Decision Making This is a pleasant 47-year-old female with a long history of surgeries, occasional complications, and repeat orthopedic evaluations of her left knee. She presents today with 2-3 days of mild pain in her left knee. She denies any systemic symptoms of fever or chills. She did see Dr. Gongora [facility], and upon evaluation sent her to the ER for further evaluation. Here in the emergency department Dr. Gongora removed synovial fluid from the knee, and there was concern for infection. Labs will be sent for culture and fluid analysis. Per Dr. Gongora patient will be brought to the OR for further more definitive surgical management. Patient's pain is controlled, vital signs are stable and reassuring. Fluid will be started, pain is well controlled at this time. I have extensively reviewed the treatment plan with the patient. I have addressed all patient concerns at this time. I have also discussed the plan with the admitting physician and they agree with the current assessment and plan and have agreed to assume responsibility for the patient. All parties demonstrate verbal understanding and agreement with our assessment and plan at this time. HPI General Date/Time Provider Initiated Documentation: 04/22/18 09:04 . HPI Narrative: This is a 47-year-old female with a past medical history significant for multiple surgeries on her left knee, who presents today for knee pain for the last 2-3 days. She denies any fevers, pain is been gradually getting worsened, worsened with movement. There is mild swelling and warmth in the left knee. She has history of infections in the past in this knee pain postoperatively. She had seen Dr. Gongora in the [facility], who sent her to the ER for further evaluation. Patient denies any recent trauma, or any other systemic symptoms of fever, chills, vomiting, diarrhea, numbness tingling or weakness. She is not currently on any antibiotics. Related Data Home Medications Medication Instructions Recorded Confirmed cholecalciferol (vitamin D3) 2,000 unit PO DAILY 05/19/15 04/16/18 [Vitamin D3] triamcinolone acetonide 1 gm TOPICAL daily prn #1 tube 06/01/16 04/16/18 blood-glucose meter [Dilithium NetworksTouch #1 kit 06/13/16 04/16/18 UltraMini] Lactase Fast Acting 9,000 unit PO AC & HS #90 tab-cap 09/05/16 04/16/18 lancets [Dilithium NetworksTouch UltraSoft #100 ea 09/12/16 04/16/18 Lancets] magnesium oxide 500 mg PO DAILY #1 11/30/16 04/16/18 albuterol sulfate 2.5 mg INHALATION Q6H PRN #360 ml 01/16/17 04/16/18 sucralfate [Carafate] 1 g PO BID #180 tab-cap 01/20/17 04/16/18 metformin 1,000 mg PO BID #180 tab-cap 04/17/17 04/16/18 nystatin 1 gm TOPICAL BID #15 gm 05/02/17 04/16/18 cetirizine 10 mg PO DAILY #90 tab-cap 05/22/17 04/16/18 fluoxetine 20 mg PO DAILY #90 tab-cap 05/22/17 04/16/18 fluoxetine 40 mg PO DAILY #90 tab-cap 05/22/17 04/16/18 montelukast [Singulair] 10 mg PO HS #90 tab 05/22/17 04/16/18 gabapentin 1 - 2 tab-cap PO TID #270 tab-cap 07/19/17 04/16/18 Advair Diskus 1 puff INHALATION BID #1 puff 08/16/17 04/16/18 blood sugar diagnostic strips #100 strip 01/21/18 04/16/18 esomeprazole magnesium 40 mg 40 mg PO DAILY #90 tab-cap 02/08/18 04/16/18 capsule,delayed release meloxicam 7.5 mg tablet 7.5 mg PO BID #60 tab 03/19/18 04/16/18 oxycodone 5 mg tablet 5 mg PO HS #7 tab MDD 5mg 03/19/18 04/16/18 alprazolam 0.5 mg tablet 0.5 mg PO BID PRN #10 tab 03/29/18 04/16/18 levalbuterol HFA 45 mcg/actuation 2 puff INHALATION Q4H PRN #4 03/29/18 04/16/18 aerosol inhaler inhaler acetaminophen 500 mg tablet 1,000 mg PO TID PRN PRN #90 tab 04/16/18 04/16/18 Previous Rx's Medication Instructions Recorded albuterol sulfate 2.5 mg INHALATION Q6H PRN #360 ml 01/16/17 sucralfate [Carafate] 1 g PO BID #180 tab-cap 01/20/17 metformin 1,000 mg PO BID #180 tab-cap 04/17/17 nystatin 1 gm TOPICAL BID #15 gm 05/02/17 cetirizine 10 mg PO DAILY #90 tab-cap 05/22/17 fluoxetine 20 mg PO DAILY #90 tab-cap 05/22/17 fluoxetine 40 mg PO DAILY #90 tab-cap 05/22/17 montelukast [Singulair] 10 mg PO HS #90 tab 05/22/17 gabapentin 1 - 2 tab-cap PO TID #270 tab-cap 07/19/17 Advair Diskus 1 puff INHALATION BID #1 puff 08/16/17 blood sugar diagnostic strips #100 strip 01/21/18 esomeprazole magnesium 40 mg 40 mg PO DAILY #90 tab-cap 02/08/18 capsule,delayed release meloxicam 7.5 mg tablet 7.5 mg PO BID #60 tab 03/19/18 oxycodone 5 mg tablet 5 mg PO HS #7 tab MDD 5mg 03/19/18 alprazolam 0.5 mg tablet 0.5 mg PO BID PRN #10 tab 03/29/18 levalbuterol HFA 45 mcg/actuation 2 puff INHALATION Q4H PRN #4 03/29/18 aerosol inhaler inhaler acetaminophen 500 mg tablet 1,000 mg PO TID PRN PRN #90 tab 04/16/18 Allergies Allergy/AdvReac Type Severity Reaction Status Date / Time latex Allergy Severe HIVES, Verified 04/16/18 10:57 ITCHING erythromycin base AdvReac Intermediate NAUSEA, Verified 04/16/18 10:57 VOMITING hydromorphone AdvReac Intermediate Nausea Verified 04/16/18 10:57 chlorhexidine AdvReac Mild Itching Verified 04/16/18 10:57 [From Hibiclens] codeine AdvReac NAUSEA, Verified 04/16/18 10:57 VOMITING General Stated Complaint: Orthopedic SHAYNE: 3 Review of Systems Review of Systems All systems reviewed & are unremarkable except as noted in HPI and below PFSH Medical History Depression with anxiety (Acute) Abdominal discomfort, epigastric (Acute) Acute blood loss anemia (Acute) Asthma (Chronic) Hyperlipidemia (Chronic) Diabetes (Chronic 06/07/16) 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) Migraine (Chronic 03/01/12) Obesity (Chronic) Organic sleep apnea, unspecified (Chronic) Candidal skin infection GERD (gastroesophageal reflux disease) Gastroparesis Incisional hernia Surgical History 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 3.ENT: Atraumatic external nose and ears. Moist MM. Neck: Symmetric, trachea midline, No thyromegaly. 4.CVS: +S1/S2, No murmurs or gallops. Peripheral pulses 2+ and equal in all extremities. Brisk capillary refill in all extremities. 5.RESP: Unlabored respiratory effort. Clear to auscultation bilaterally. No wheezes rales or rhonchi 6.GI: Soft, Nontender/Nondistended, No hepatosplenomegaly. No guarding or rebound. 7.MSK: Normocephalic, mild swelling of the left knee, postsurgical site is intact, excellent healing of the knee from previous surgery. Minimal swelling. Mild tenderness with palpation and movement. Minimal warmth. Pain is not out of proportion, compartments are soft. 8.Skin: Warm, Dry. No rashes or lesions. 9.Neuro: sausage linker II-XII grossly intact. Sensation grossly intact, no focal neurologic deficits. 10.Psych: (AAO) x3. Appropriate mood and affect Course Vital Signs Temperature 36.4 C L 04/22/18 08:55 Pulse 104 H 04/22/18 08:55 Respiratory Rate 20 04/22/18 08:55 Blood Pressure 107/61 04/22/18 08:55 Pulse Oximetry 100 04/22/18 08:55 Temperature 36.4 C L 04/22/18 08:55 Temperature Source Temporal Artery Scan 04/22/18 08:55 Pulse 104 H 04/22/18 08:55 Respiratory Rate 20 04/22/18 08:55 Blood Pressure 107/61 04/22/18 08:55 Blood Pressure Position Sitting 04/22/18 08:55 Pulse Oximetry 100 04/22/18 08:55 Oxygen Delivery Method Room Air 04/22/18 08:55 Oxygen Flow Rate 0 04/22/18 08:55 Pain Level 6 04/22/18 09:01 Lab/Test Results Lab/Test Results: 04/22/18 09:06 Blood Blood Culture - Pending 04/22/18 09:06 Blood Blood Culture - Pending
[2018-04-22 09:48] LABS: ALT 31 U/L (12-78); AST 29 U/L (15-37); Albumin 3.4 g/dL (3.4-5.0); Alkaline Phosphatase 61 U/L (46-116); Anion Gap 12.9 mmol/L (3-11); BUN 11 mg/dL (7-18); Bilirubin, Total 1.6 mg/dL (0.2-1.0); C-Reactive Protein 2.74 mg/dL (0.0-0.3); CO2 24.1 mmol/L (21.0-32.0); CREATININE 0.98 mg/dL (0.55-1.02); Calcium 8.8 mg/dL (8.5-10.1); Chloride 101 mmol/L (98-107); Glucose 187 mg/dL (70-100); Potassium 3.7 mmol/L (3.5-5.1); Sodium 138 mmol/L (136-145); Total Protein 7.6 g/dL (6.4-8.2)
--- NOTE | 2018-04-22 10:11 | OCONE_ITS ---
Date of service: 04/22/18 Time of Service: 09:10 History of Present Illness Chief Complaint: Left Knee Pain and Swelling Narrative: Fay is a 47-year-old who I know quite well for her bilateral knees. She first went under a knee replaced on the right side without any difficulty at all. She had a left knee replacement performed. In her postoperative recovery she started developing acute onset of swelling and unrelenting pain. Aspiration showed MSSA infection. She initially was treated with a poly-exchange and antibiotics. This failed and she underwent a two-stage revision. She was treated with 6 weeks of antibiotics. She had a negative aspirate and negative labs and eventually had reimplantation of the knee replacement on December 22, 2017. Her initial recovery was slow but she made good progress in the preoperative pain and complaints of infection were better. She was able to develop ambulation without an assistive device at about 2 months. I saw her this past week for some increasing discomfort laterally. She felt like something was sharp and moving around. X-rays performed at that time that showed what may be a piece of cement or loose piece of bone over the lateral aspect of the femur. She was quite concerned and fixated about that. At that time in the office, she was still able to range the knee although she still had a persistent lag of about 15 degrees. She was able to ambulate with minimal assistance. This past Monday, 2 days ago, she was running multiple errands with her . She was able to do so without any significant difficulties. Yesterday, she started developing some swelling and some discomfort of the left knee. This morning she awoke with significant swelling and inability to bear weight or move the knee without severe discomfort. She presented to the ED for this developing pain and inability ambulate. Her is currently hospitalized for chest pain. She denies any fevers or chills. She denies any malaise or ill feeling. She has had no recent infections. No recent breaks in the skin or other immune issues. She denies any chest pain or shortness of breath. Consults Consult date: 04/22/18 Requesting physician: Sujit Bowen Consult Reason Left knee swelling and pain Assessment and Plan (1) Infection of total left knee replacement: Current visit: Yes Status: Acute Barbara is a 47-year-old who appears to have reinfection of her left knee replacement. She already underwent a two-stage revision with revision components. While she was having some discomfort over the last week or so I do not think this represents infection, although possible. She had an acute change in her complaints starting yesterday and worsening this morning. I am very hopeful this is an acute change and that we can try to treat this with a irrigation and debridement, synovectomy, and polyethylene exchange. However, I was very blunt with Barbara that this does not portend a good prognosis. The likelihood of success here is less than 50%. She will need at least 6 weeks of antibiotics assuming that this procedure goes well. If this fails, the next steps are quite dire. I did review these briefly which did include repeat two- stage exchange, knee effusion, amputation. I am hopeful this will be able to treat this infection. I reviewed the technical details of my plan. I reviewed the risk of the procedure to include bleeding, continued infection, pain, stiffness, damage to muscles and tendons, damage to nerves and vessels, need for repeat procedures, skin healing complications, blood clot, need for fusion or amputation, . Despite these risk, she elects to proceed. I did discuss the possibility of referral to tertiary center which she declined upfront. She is currently n.p.o. we will proceed to the OR immediately to hopefully get this as soon as possible. Qualifiers: Encounter type: sequela Qualified Code(s): T84.54XS - Infection and inflammatory reaction due to internal left knee prosthesis, sequela; Z96.652 - Presence of left artificial knee joint Review of Systems Review of Systems All systems reviewed & are unremarkable except as noted in HPI and below PFS Medical History Depression with anxiety (Acute) Abdominal discomfort, epigastric (Acute) Acute blood loss anemia (Acute) Asthma (Chronic) Hyperlipidemia (Chronic) Diabetes (Chronic 06/07/16) Infection of total left knee replacement (Acute 09/13/17) Migraine (Chronic 03/01/12) Obesity (Chronic) Organic sleep apnea, unspecified (Chronic) Candidal skin infection GERD (gastroesophageal reflux disease) Gastroparesis Incisional hernia Surgical History 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 Grandfather Heart disease Grandfather Diabetes Heart disease Grandmother Diabetes Heart disease Grandmother Heart disease Hyperlipidemia Asthma Social History Smoking and Tabacco status: Never Exam Const General: cooperative and ill appearing Nutritional Appearance: overweight Orientation: alert, awake and oriented x3 Resp Effort & Inspection: normal respiratory effort Auscultation: clear to auscultation bilaterally Cardio Rate: regular rate Rhythm: regular rhythm Extrem Other: The left knee is evaluated. She is keeping the knee bent at about 25 or 30 degrees. The midline incision is well-healed and approximated. There are no signs of infection. There is no erythema. There is some may be some mild warmth when compared to the contralateral side. There is exquisite pain to palpation throughout the entirety of the knee. There is a very notable effusion about the knee which is visible with a ballotable patella. Knee range of motion is not tolerated for any arc of motion. She is unable to straight leg raise due to pain. She is unable to put weight on it when observed trying to ambulate from the wheelchair to the bed. She endorses full sensation distally over the deep and superficial peroneal nerves and tibial nerve. The foot is warm and well perfused. No other sores or skin breaks are appreciated. Results Last Vital Signs Temp 36.4 C L 04/22/18 08:55 Pulse 104 H 04/22/18 08:55 Resp 20 04/22/18 08:55 BP 107/61 04/22/18 08:55 Pulse Ox 100 04/22/18 08:55 Labs : 04/22/18 09:10 04/22/18 09:15 Laboratory Results - last 24 hr 04/22/18 09:15 Sodium 138 Potassium 3.7 Chloride 101 Carbon Dioxide 24.1 Anion Gap 12.9 H BUN 11 Creatinine 0.98 Estimated GFR/1.73 m2 >= 60.00 Glucose 187 H Calcium 8.8 Total Bilirubin 1.6 H AST 29 ALT 31 Alkaline Phosphatase 61 C-Reactive Protein 2.74 H Total Protein 7.6 Albumin 3.4 Procedures Joint Aspiration/Injection Joint Asp./Inject. 1: Time out performed: Yes Side of body: left Joint aspirated: knee Ultrasound guidance: No Skin prep: Chlorhexidine Needle size used: 18G Fluid obtained: purulent Total fluid obtained (ml): 30 Patient tolerated procedure: no complications Complications: none Additional comments: Fluid sent for cell count, culture, and crystal analysis
[2018-04-22 10:18] LABS: Abs Immature Grans 0.07 k/cumm (0.0-0.09); Absolute Lymphocyte Count 0.55 k/cumm (1.2-3.4); Absolute Monocyte Count 1.39 k/cumm (0.11-0.7); Absolute Neutrophil Count 19.04 k/cumm (1.2-6.7); HCT 32.6 % (36.0-46.0); HGB 10.3 g/dL (12.0-15.5); Immature Grans % 0.3; Lymphocytes % 2.6; Mean Corp. HGB Concentration 31.6 g/dL (32.0-36.0); Mean Corpuscular Hemoglobin 27.5 pg (27.0-33.0); Mean Corpuscular Volume 87.2 fL (80-95); Mean Platelet Volume 10.3 fL (8.0-11.0); Monocytes % 6.6; Neutrophils % 90.5; Platelet Count 300 x1000/uL (130-400); RBC 3.74 m/cumm (4.00-5.20); RBC Distribution Width 17.1 % (11.7-14.6); White Blood Cell Count 21.04 k/cumm (4.4-10.8)
[2018-04-22] MEDS: Lactated Ringers 1,000 ML 30 ML IV ×3 (10:34→13:37)
[2018-04-22 10:39] LABS: Source L KNEE
[2018-04-22 10:40] LABS: Source L KNEE
[2018-04-22 10:41] LABS: Clarity PURULENT; Mononuclear Cells 10 % (0-0); Polynuclear Cells 90 % (0-0)
[2018-04-22 11:41] LABS: Hemoglobin A1C 6.9 % (4.5-6.2)
[2018-04-22 12:18] LABS: ESR 24 MM/HR (0-20)
[2018-04-22] MEDS: fentaNYL 100 MCG/2 ML VIAL IVP (12:53)
[2018-04-22] MEDS: oxyCODONE 5 MG TAB PO ×2 (13:36→21:05)
[2018-04-22] MEDS: Gabapentin 300 MG CAP PO ×2 (13:36→19:37)
[2018-04-22] MEDS: Acetaminophen 500 MG TAB 1000 MG PO ×2 (13:37→19:37)
--- NOTE | 2018-04-22 16:41 | PT.INIE ---
Date of service: 04/22/18 Time of Service: 16:42 PT Notes Inpatient Physical Therapy Evaluation Date: 04/22/2018 Referring Doctor: Efren Gongora MD PT Orders: PT CONSULT: Status post left total knee arthroplasty washout [] Precautions: Falls Patient Profile/Admitting Diagnosis: A 47-year-old female status post bilateral total knee replacements, right 2 years ago, and her left knee more recently. She developed an infection and underwent two-stage revision with her last left total knee replacement on December 22, 2017. She been progressing with her rehab, and developed an onset of increased left knee pain and inability to walk on Monday. She status post debridement/washout earlier today. PMHX: Refer to primary care's problem list Social History/Home Situation: Currently living with her parents, but she and her were planning on moving out next week. He currently is also a patient at this facility. Her parents have a double wide with 5 steps entering the home. There is railings on both sides. The bathroom is a standard bathtub with a grab bar, and a shower seat is available. Current Functional Limitations: Prior to today's surgery, the patient was independent with all ADLs. Equipment Owned/DME: As a wheelchair, walker at home and is currently using her father's wooden axillary crutches. Subjective: Fay is complaining of continuous discomfort throughout the entire left knee. Objective: [] General Observation: Cooperative, but appears to have discomfort and this increases some with movement. Mental Status: Alert and oriented x3 Pain: Complains of continued discomfort throughout the entire left knee greater than a 7/10 on a VAS Vital Signs: Her resting pulse is 84 bpm and is comfortable following ambulation ROM: Her active assistive range of motion left knee was not tested but she keeps her knee flexed at approximately 30 degrees, and she can sit over the edge of the bed with her knee bent at approximately 60 degrees. Her left hip rotation and ankle, subtalar movements are non-irritable Strength: She has full motor control throughout the extremities and generally rated 5/5 other than her left lower extremity. Her left EHL, EDC, anterior tib are 5/5 Sensation: Intact to light touch throughout the entire left lower extremity Bed Mobility/Transfers: Requires moderate assist with her left lower extremity when assuming the supine to sitting positions and vice versa. Minimal assist with assuming the sitting to standing position Gait: Ambulated with a wheeled walker, weightbearing as tolerated on the left lower extremity, with contact guarding for approximately 40 feet. She has stable gait. Balance: Static Sitting: Good Dynamic Sitting: Good Static Standing: Good Dynamic Standing: Fair with contact guarding Special Tests: Mobility Limitations Standardized Measure [facility] AM-PAC 6 clicks Basic Mobility Inpatient Short Form: Raw Score: 12 standardized Score: 35.33 CMS Score: 68.66% CMS Modifier: CM Informed Consent/Education: Patient instructed in purpose of PT consult and plan of care. Assessment: Patient is a 47 year old female referred to physical therapy services with the diagnosis of status post left total knee arthroplasty washout. Patient presents with clinical signs and symptoms consistent with this diagnosis, as demonstrated by the following impairment level findings: Requires assistance with bed mobility activities, contact guarding with ambulation, etc. Impairments are contributing to the following functional limitations: AMPA score. 68.66%, Patient is assessed as a Moderate 86114 complexity based on the following: History: See above Examination: See above Presentation: Evolving Decision Making: Moderate complexity based on her impact score of 68.66% Goals: Goals X1 week independent with bed mobility, ambulating with a walker weightbearing as tolerated left lower extremity For greater than 300 feet. Plan of Care/Treatment Plan: 1-2x/day, 7 days/week x 1 week. Plan of care has been reviewed with the PROJECT ASSISTANT providing the service under Physical Therapy direction. Initiate Physical Therapy intervention for strengthening, bed mobility, transfers, gait, stairs, balance training, use of assistive device. DISCHARGE RECOMMENDATIONS: To her parents home TREATMENT CODE/TIME: 9716 2 x 1/40 minutes/3:30 PM Disclaimer: This note was created using [employer] voice recognition software. It was reviewed for major content. However, there may be multiple small discrepancies and errors due to the voice recognition aspects of the software.
[2018-04-22] MEDS: Insulin Aspart 300 UNITS/3 ML PEN SC (16:44)
[2018-04-22] MEDS: metFORMIN 500 MG TAB 1000 MG PO (16:45)
--- NOTE | 2018-04-22 16:54 | IN_ITS ---
Date of service: 04/22/18 Time of Service: 16:42 PT Notes Inpatient Physical Therapy Evaluation Date: 04/22/2018 Referring Doctor: Efren Gongora MD PT Orders: PT CONSULT: Status post left total knee arthroplasty washout [] Precautions: Falls Patient Profile/Admitting Diagnosis: A 47-year-old female status post bilateral total knee replacements, right 2 years ago, and her left knee more recently. She developed an infection and underwent two-stage revision with her last left total knee replacement on December 22, 2017. She been progressing with her rehab, and developed an onset of increased left knee pain and inability to walk on Monday. She status post debridement/washout earlier today. PMHX: Refer to primary care's problem list Social History/Home Situation: Currently living with her parents, but she and her were planning on moving out next week. He currently is also a patient at this facility. Her parents have a double wide with 5 steps entering the home. There is railings on both sides. The bathroom is a standard bathtub with a grab bar, and a shower seat is available. Current Functional Limitations: Prior to today's surgery, the patient was independent with all ADLs. Equipment Owned/DME: As a wheelchair, walker at home and is currently using her father's wooden axillary crutches. Subjective: Fay is complaining of continuous discomfort throughout the entire left knee. Objective: [] General Observation: Cooperative, but appears to have discomfort and this increases some with movement. Mental Status: Alert and oriented x3 Pain: Complains of continued discomfort throughout the entire left knee greater than a 7/10 on a VAS Vital Signs: Her resting pulse is 84 bpm and is comfortable following ambulation ROM: Her active assistive range of motion left knee was not tested but she keeps her knee flexed at approximately 30 degrees, and she can sit over the edge of the bed with her knee bent at approximately 60 degrees. Her left hip rotation and ankle, subtalar movements are non-irritable Strength: She has full motor control throughout the extremities and generally rated 5/5 other than her left lower extremity. Her left EHL, EDC, anterior tib are 5/5 Sensation: Intact to light touch throughout the entire left lower extremity Bed Mobility/Transfers: Requires moderate assist with her left lower extremity when assuming the supine to sitting positions and vice versa. Minimal assist with assuming the sitting to standing position Gait: Ambulated with a wheeled walker, weightbearing as tolerated on the left lower extremity, with contact guarding for approximately 40 feet. She has stable gait. Balance: Static Sitting: Good Dynamic Sitting: Good Static Standing: Good Dynamic Standing: Fair with contact guarding Special Tests: Mobility Limitations Standardized Measure [facility] AM-PAC 6 clicks Basic Mobility Inpatient Short Form: Raw Score: 12 standardized Score: 35.33 CMS Score: 68.66% CMS Modifier: CM Informed Consent/Education: Patient instructed in purpose of PT consult and plan of care. Assessment: Patient is a 47 year old female referred to physical therapy services with the diagnosis of status post left total knee arthroplasty washout. Patient presents with clinical signs and symptoms consistent with this diagnosis, as demonstrated by the following impairment level findings: Requires assistance with bed mobility activities, contact guarding with ambulation, etc. Impairments are contributing to the following functional limitations: AMPA score. 68.66%, Patient is assessed as a Moderate 37261 complexity based on the following: History: See above Examination: See above Presentation: Evolving Decision Making: Moderate complexity based on her impact score of 68.66% Goals: Goals X1 week independent with bed mobility, ambulating with a walker weightbearing as tolerated left lower extremity For greater than 300 feet. Plan of Care/Treatment Plan: 1-2x/day, 7 days/week x 1 week. Plan of care has been reviewed with the COPING MACHINE ASSEMBLER providing the service under Physical Therapy direction. Initiate Physical Therapy intervention for strengthening, bed mobility, transfers, gait, stairs, balance training, use of assistive device. DISCHARGE RECOMMENDATIONS: To her parents home TREATMENT CODE/TIME: 9716 2 x 1/40 minutes/3:30 PM Disclaimer: This note was created using [employer] voice recognition software. It was reviewed for major content. However, there may be multiple small dis crepancies and errors due to the voice recognition aspects of the software.
[2018-04-22] MEDS: RIFAMPIN 300 MG CAP PO (19:35)
[2018-04-22] MEDS: Budesonide/Formoterol 160/4.5 6 GM 60 PUFF INH IH (19:36)
[2018-04-22] MEDS: Aspirin E.C. 81 MG TABEC PO (19:37)
[2018-04-22] MEDS: Sucralfate 1 GM TAB PO (19:37)
[2018-04-22] MEDS: Montelukast 10 MG TAB PO (21:05)
[2018-04-22] MEDS: Levalbuterol HFA 15 GM INH 2 PUFF IH (21:06)
[2018-04-23] MEDS: Levalbuterol HFA 15 GM INH 2 PUFF IH ×2 (01:09→18:42)
[2018-04-23 03:10] VITALS: BP 101/63; PULSE 76; RESP 18; TEMP 36.5; O2SAT 98
[2018-04-23] MEDS: RIFAMPIN 300 MG CAP PO ×2 (07:27→20:30)
[2018-04-23] MEDS: Acetaminophen 500 MG TAB 1000 MG PO ×3 (07:27→20:30)
[2018-04-23 07:35] VITALS: BP 128/82; PULSE 85; RESP 18; TEMP 36.5; O2SAT 97
[2018-04-23 07:50] LABS: HCT 26.6 % (36.0-46.0); Mean Corp. HGB Concentration 30.1 g/dL (32.0-36.0); Mean Corpuscular Hemoglobin 26.8 pg (27.0-33.0); Mean Platelet Volume 10.3 fL (8.0-11.0); Platelet Count 268 x1000/uL (130-400); RBC 2.99 m/cumm (4.00-5.20); RBC Distribution Width 17.1 % (11.7-14.6); White Blood Cell Count 15.37 k/cumm (4.4-10.8)
[2018-04-23 07:56] LABS: Anion Gap 9.2 mmol/L (3-11); BUN 21 mg/dL (7-18); CO2 24.8 mmol/L (21.0-32.0); CREATININE 0.97 mg/dL (0.55-1.02); Calcium 8.8 mg/dL (8.5-10.1); Chloride 104 mmol/L (98-107); Glucose 147 mg/dL (70-100); Sodium 138 mmol/L (136-145)
[2018-04-23] MEDS: Insulin Aspart 300 UNITS/3 ML PEN SC ×2 (08:19→17:13)
[2018-04-23] MEDS: metFORMIN 500 MG TAB 1000 MG PO ×2 (08:20→17:13)
[2018-04-23] MEDS: FLUoxetine 20 MG CAP 60 MG PO (08:20)
[2018-04-23] MEDS: Aspirin E.C. 81 MG TABEC PO ×2 (08:20→20:30)
[2018-04-23] MEDS: Magnesium Oxide 400 MG TAB PO (08:20)
[2018-04-23] MEDS: Sucralfate 1 GM TAB PO ×2 (08:20→20:30)
[2018-04-23] MEDS: Esomeprazole 40 MG CAPCR PO (08:20)
[2018-04-23] MEDS: Cetirizine 10 MG TAB PO (08:21)
[2018-04-23] MEDS: Gabapentin 300 MG CAP PO ×3 (08:21→20:30)
[2018-04-23] MEDS: oxyCODONE 5 MG TAB PO ×3 (09:36→17:13)
[2018-04-23] MEDS: Budesonide/Formoterol 160/4.5 6 GM 60 PUFF INH IH ×2 (09:54→20:30)
--- NOTE | 2018-04-23 10:23 | PDOC.CMIN ---
- If Service Date Differs Date of service: 04/23/18 Time of Service: 10:23 Care Management Initial Assess REASON FOR HOSPITALIZATION:: (L) Knee pain and swelling PAST MEDICAL HISTORY/PAST SURGICAL HISTORY:: Depression with anxiety (Acute). Abdominal discomfort, epigastric (Acute). Acute blood loss anemia (Acute). Asthma (Chronic). Hyperlipidemia (Chronic). Diabetes (Chronic 06/07/16). Infection of total left knee replacement (Acute 09/13/17). Migraine (Chronic 03/01/12). Obesity (Chronic). Organic sleep apnea, unspecified (Chronic). Candidal skin infection. GERD (gastroesophageal reflux disease). Gastroparesis. Incisional hernia. 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 H/O surgical procedure (Chronic). ABDOMINAL WALL HERNIA REPAIR. Arthroplasty of knee. Cholecystectomy. EGD - MAC (09/28/16). Hernia Repair, Incisional (~09/2009). Hysterectomy, Laproscopic. Nga Fundoplication. Tonsillectomy (06/14/10) PREVIOUS FUNCTIONAL STATUS/SOCIAL/FAMILY SUPPORTS:: Barbara resides in [place] with her parents. Her Rishi resides with a friend in a trailer at this time, and they are going to be moving into an apartment in [facility] soon. Fay is indepenent at baseline, she drives, and manages ADL's. CURRENT FUNCTIONAL STATUS:: Currently Fay is sitting up in her chair. Her whom is also a patient visits during interaction. ADVANCE DIRECTIVES:: On file - Mckinley Chapman is agent. Has patient been provided with information about the portal?: Yes Did the patient sign up for the portal?: No CODE STATUS:: Full Code INSURANCE COVERAGE / FINANCIAL ISSUES:: Medicare CURRENT HOME/COMMUNITY SERVICES/EQUIPMENT:: Currently Barbara has no services in the community. She has crutches, a walker, and a w/c at baseline. Barbara requested CM contact Levi Murray in regards to her w/c. She has a 20% copay monthly as she has [facility] only, the cost of this is $22.49 monthly. PRIMARY CARE PHYSICIAN:: Gissell Davis POTENTIAL DISCHARGE NEEDS:: F/U appointment with Dr. Gongora PATIENT/FAMILY EDUCATION NEEDS:: Review DC instructions, any limitations, and ongoing DC planning discussion. Discuss 'Ask Me Three' ANTICIPATED BARRIERS TO DISCHARGE:: None identified at this time. TRANSPORTATION:: Via private vehicle with family PLAN:: Barbara will return home with no anticipated services once medically cleared. She will F/U with Dr. Gongora and plan of care as prescribed. Barbara's family will transport when ready.
--- NOTE | 2018-04-23 10:50 | INITIAL_ITS ---
- If Service Date Differs Date of service: 04/23/18 Time of Service: 10:23 Care Management Initial Assess REASON FOR HOSPITALIZATION:: (L) Knee pain and swelling PAST MEDICAL HISTORY/PAST SURGICAL HISTORY:: Depression with anxiety (Acute). Abdominal discomfort, epigastric (Acute). Acute blood loss anemia (Acute). Asthma (Chronic). Hyperlipidemia (Chronic). Diabetes (Chronic 06/07/16). Infection of total left knee replacement (Acute 09/13/17). Migraine (Chronic 03/01/12). Obesity (Chronic). Organic sleep apnea, unspecified (Chronic). Candidal skin infection. GERD (gastroesophageal reflux disease). Gastroparesis. Incisional hernia. 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 H/O surgical procedure (Chronic). ABDOMINAL WALL HERNIA REPAIR. Arthroplasty of knee. Cholecystectomy. EGD - MAC (09/28/16). Hernia Repair, Incisional (~09/2009). Hysterectomy, Laproscopic. Nga Fundoplication. Tonsillectomy (06/14/10) PREVIOUS FUNCTIONAL STATUS/SOCIAL/FAMILY SUPPORTS:: Barbara resides in [place] with her parents. Her Rishi resides with a friend in a trailer at this time, and they are going to be moving into an apartment in [facility] soon. Fay is indepenent at baseline, she drives, and manages ADL's. CURRENT FUNCTIONAL STATUS:: Currently Fay is sitting up in her chair. Her whom is also a patient visits during interaction. ADVANCE DIRECTIVES:: On file - Mckinley Chapman is agent. Has patient been provided with information about the portal?: Yes Did the patient sign up for the portal?: No CODE STATUS:: Full Code INSURANCE COVERAGE / FINANCIAL ISSUES:: Medicare CURRENT HOME/COMMUNITY SERVICES/EQUIPMENT:: Currently Barbara has no services in the community. She has crutches, a walker, and a w/c at baseline. Barbara requested CM contact Levi Murray in regards to her w/c. She has a 20% copay monthly as she has [facility] only, the cost of this is $22.49 monthly. PRIMARY CARE PHYSICIAN:: Gissell Davis POTENTIAL DISCHARGE NEEDS:: F/U appointment with Dr. Gongora PATIENT/FAMILY EDUCATION NEEDS:: Review DC instructions, any limitations, and ongoing DC planning discussion. Discuss 'Ask Me Three' ANTICIPATED BARRIERS TO DISCHARGE:: None identified at this time. TRANSPORTATION:: Via private vehicle with family PLAN:: Barbara will return home with no anticipated services once medically cleared. She will F/U with Dr. Gongora and plan of care as prescribed. Barbara's family will transport when ready.
--- NOTE | 2018-04-23 10:57 | ROE_ITS ---
DATE OF SURGERY: April 22, 2018 PREOPERATIVE DIAGNOSIS: Left knee periprosthetic infection. POSTOPERATIVE DIAGNOSIS: Same. SURGERY: Irrigation and debridement of left knee with antibiotic beads. SURGEON: Raheel Gongora M.D. PRUNER: Mynor Durant PA-C ANESTHESIA: General. ESTIMATED BLOOD LOSS: 150 cc's FINDINGS: There was some mild synovitis, but there is definitely purulent material within the knee. There were no overwhelming areas of necrotic tissue. The polyethylene spacer was removed. The knee was thoroughly debrided and a new polyethylene liner was placed with antibiotic-laden calcium sulfat e beads. COMPLICATIONS: None. DISPOSITION: The patient was awakened from anesthesia and taken to the PACU in stable condition. INDICATION FOR PROCEDURE: Fay is a 47-year-old who unfortunately has already had an infection of her left total knee. She underwent a 2-stage revision with reimplantation on December 22. She was doi ng well until this last week she started having some mild pain. On Monday she was out doing a lot of walking. As of yesterday she started developing increasing swelling and pain and by today she was u nable to walk. I saw her in the Emergency Department where an aspirate removed purulent material fro m her knee. At this point I recommended an operative debridement. I reviewed the risks of the proce dure with the patient. I discussed the risks in detail including bleeding, persistent infection, jose n, stiffness, damage to nerves and vessels, damage to muscles and tendons, weakness, wound healing co mplications, need for further surgery such as amputation or fusion, and blood clot. Despite these ri sks, she elected to proceed. PROCEDURE DESCRIPTION: Fay was greeted in the preoperative holding area. Her identity was confirmed and the correct side was identified and marked in the Emergency Department and confirmed in the preo perative area. She was taken back to the Operating Room. She was placed in the supine position. Al l bony prominences were well-padded. A Mukherjee catheter was placed. The left leg was then prepped wit h ChloraPrep and draped in a standard fashion. Prophylactic antibiotics in the form of Cefazolin wer e given, as we already had previously aspirated the knee. A time-out was performed for safe surgery. A previous incision site was marked on the skin. There was no concerning findings about the incision and therefore the previous incision was incised directly. This was taken down sharply through the s kin and soft tissues down to the extensor mechanism. The extensor mechanism was exposed, raising ful l-thickness flaps to expose the extensor mechanism. Previous sutures from the arthrotomy were identi fied and used as a landmark for performing the medial parapatellar arthrotomy. Normal landmarks othe rwise were very difficult to identify given the significant amount of scarring in this area. Once th is area was identified, the deep knife was used to incise the knee deeply. There was a large amount of purulent material, which was removed. The arthrotomy was completed. There was some synovitis see n, primarily in the medial and lateral gutters, but there was overall not significant synovitis appre ciated. The bleeding was then stopped with electrocautery. Then using Allis and Henrry clamps, I wa s able to debride the synovium from the inside of the knee. Again this was not as thick as I was exp ecting and did not look as bad as I was expecting either. The synovium was removed. A rongeur was a lso used to remove any excess synovium we were unable to capture in an en block resection. This was also removed from the anterior femur and around the medial and lateral gutters. The undersurface of the quadriceps tendon was also debrided. The knee was then flexed up and the polyethylene was remove d. The posterior aspect of the knee was then also debrided down with a rongeur until we reached the capsule. This was done for both the medial and the lateral gutters. Again there were no significant areas of purulence and no significant areas of necrotic tissue seen. The borders of the femur and t ibia were dissected of any soft tissue and their interface was exposed. While it was not grossly dennys russell with the bone tamp to see if it was loose, there were no signs of gross loosening, no gapping bet ween the cement and no loose cement particles. The synovium overlying the patellar remnant was also debrided down and any bony irregularities were smoothed down and she was left with a patellectomy fro m the previous surgery. The wound was then irrigated with six liters of normal saline. The knee was inspected for any other areas of necrotic tissue or purulence. There was none found. The implant was cleaned thoroughly. A new DePuy SIGMA 2.5 x 12.5 mm rotating platform spacer was then inserted. During the case on the b ack table one batch of STIMULAN calcium sulfate beads were prepared with one gram of Vancomycin powde r. These were then deposited into the suprapatellar pouch of the knee. The knee was brought into so me flexion and the knee was closed using a #1 antibiotic-laden PDS suture. Once the arthrotomy was c losed completely, range of motion was tested and she did have 0 to 110 degrees of flexion. I did not push the flexion any more, but there was no gapping of the arthrotomy. No tourniquet was used for t he case and all bleeding was well-controlled. The deeper tissues were closed with a #0 Vicryl follow ed by a #2-0 Vicryl. The skin was closed with ced. The wound was dressed with Xeroform, 4x4's, ABD and Kerlix, followed by an Lawrence wrap from toe to thigh. Cultures were sent of some soft tissue i n the knee, as we already had fluid aspirant cultures. At the end of the case all counts were correc t.
[2018-04-23 11:05] VITALS: BP 102/64; PULSE 84; RESP 20; TEMP 36.5; O2SAT 99
[2018-04-23] MEDS: Ketorolac 15 MG/ML VIAL IVP ×2 (11:46→20:30)
[2018-04-23] MEDS: Normal Saline Flush 10 ML SYR (11:46)
--- NOTE | 2018-04-23 12:16 | PT.INTREAT ---
Date of service: 04/23/18 Time of Service: 12:16 PT Notes Inpatient Physical Therapy Treatment Note [facility] Date: 04/23/18 PRECAUTIONS: Fall SUBJECTIVE: Fay states that she did not sleep well last night, but is willing to participate in PT. OBJECTIVE: PAIN: Patient c/o discomfort in L knee with gwiag-zu-ytm and fqfucy-uy-iwo transfers BED MOBILITY/TRANSFERS Supine-sit: Min A in a.m.; SBA in p.m. Sit-stand: SBA Stand-sit: SBA GAIT Assistive Device: FWW in a.m.; FWW, B axillary crutches in p.m. Weight bearing: WBAT L Assist: SBA with FWW; CGA with B axillary crutches Distance: 120' with FWW in a.m.; 75' with FWW in p.m., 75' with B axillary crutches in p.m. THEREX: Patient completed several LE strengthening and stabilization exercises in a supine position, as per flow sheet. She required assist with SLR and hip abduction on L. Ends session with cryocuff to L knee. STAIRS: Up/down 3x4 and 2x6 using one rail/axillary crutch and a step to pattern with SBA ASSESSMENT: Patient tolerated sessions well with minimal c/o L knee pain with transfers. Patient was able to tolerate a progression in gait distance with FWW support and SBA. She would benefit from continued gait and transfer training for improved mobility and ability to perform daily functional tasks at a more independent level. PLAN: Continue with PT's POC TREATMENT CODE/TIME: Session 1: 30 minutes; 23798, [id number] Session 2: 45 minutes; [id number] x2, [id number]
--- NOTE | 2018-04-23 12:24 | PTTR_ITS ---
Date of service: 04/23/18 Time of Service: 12:16 PT Notes Inpatient Physical Therapy Treatment Note [facility] Date: 04/23/18 PRECAUTIONS: Fall SUBJECTIVE: Fay states that she did not sleep well last night, but is willing to participate in PT. OBJECTIVE: PAIN: Patient c/o discomfort in L knee with tztsx-qz-zfx and pstprz-ya-grb transfers BED MOBILITY/TRANSFERS Supine-sit: Min A in a.m.; SBA in p.m. Sit-stand: SBA Stand-sit: SBA GAIT Assistive Device: FWW in a.m.; FWW, B axillary crutches in p.m. Weight bearing: WBAT L Assist: SBA with FWW; CGA with B axillary crutches Distance: 120' with FWW in a.m.; 75' with FWW in p.m., 75' with B axillary crutches in p.m. THEREX: Patient completed several LE strengthening and stabilization exercises in a supine position, as per flow sheet. She required assist with SLR and hip abduction on L. Ends session with cryocuff to L knee. STAIRS: Up/down 3x4 and 2x6 using one rail/axillary crutch and a step to pattern with SBA ASSESSMENT: Patient tolerated sessions well with minimal c/o L knee pain with transfers. Patient was able to tolerate a progression in gait distance with FWW support and SBA. She would benefit from continued gait and transfer training for improved mobility and ability to perform daily functional tasks at a more independent level. PLAN: Continue with PT's POC TREATMENT CODE/TIME: Session 1: 30 minutes; 11006, [id number] Session 2: 45 minutes; 52251 x2, [id number]
[2018-04-23 16:00] VITALS: BP 110/71; PULSE 78; RESP 20; TEMP 36.8; O2SAT 97
--- NOTE | 2018-04-23 18:14 | W.PM.PROGNOT ---
Date of Service Date of service: 04/23/18 Time of Service: 12:14 Assessment and Plan (1) Infection of total left knee replacement: Current visit: Yes Status: Acute Fay is a 47-year-old status post irrigation debridement with polyethylene exchange and antibiotic bead placement of the left knee. This is her second infection in the left knee. She does have 1 of 2+ blood cultures. The good news appears to be that this was an acute infection and not chronic from the time of the surgery. Her sed rate was only 24 and the knee itself did not look that bad. I am hopeful this will provide eradication of the infection coupled with 6 weeks of IV antibiotics and then oral antibiotics after that. We will continue with rifampin and vancomycin. Once we ensure that this is MSSA, we will switch her over from vancomycin to a more specific antibiotic. Continue with current pain control regimen. Weightbearing as tolerated PT. Aspirin for DVT prophylaxis. Qualifiers: Encounter type: sequela Qualified Code(s): T84.54XS - Infection and inflammatory reaction due to internal left knee prosthesis, sequela; Z96.652 - Presence of left artificial knee joint Subjective Interval history since last seen: Fay reports that the pain is definitely better in the left knee. She has a baseline level 5 or 6 throughout the knee but she is not experiencing the excruciating pain she had yesterday. She also generally feels better. She denies any fevers or chills. She is tolerating full diet. She is voiding spontaneously after Mukherjee catheter removal. Her cultures are growing staph aureus. She did have 1 of 2 blood cultures returned gram-positive cocci. Exam Narrative Exam Narrative: Evaluation of the left lower extremity shows Lawrence wrap in place. No drainage on the dressings. Range of motion was limited approximately 20-80 degrees. She was reluctant to straight leg raise. She did have intact ankle dorsiflexion, ankle plantar flexion, EHL and FHL function. Sensation intact light touch over the deep and superficial peroneal nerves and tibial nerve. Objective Objective Clinical Data: Abnormal lab results 04/23/18 04/23/18 Range/Units 07:19 07:19 WBC 15.37 H (4.4-10.8) k/cumm RBC 2.99 L (4.00-5.20) m/cumm Hgb 8.0 L D (12.0-15.5) g/dL Hct 26.6 L (36.0-46.0) % MCH 26.8 L (27.0-33.0) pg MCHC 30.1 L (32.0-36.0) g/dL RDW 17.1 H (11.7-14.6) % BUN 21 H D (7-18) mg/dL Glucose 147 H (70-100) mg/dL Vital Signs Temperature 36.8 C 04/23/18 16:00 Temperature Source Tympanic 04/23/18 16:00 Pulse 78 04/23/18 16:00 Pulse Rhythm Regular 04/23/18 07:40 Respiratory Rate 20 04/23/18 16:00 Respiratory Effort Non-Labored 04/23/18 07:40 Respiratory Depth Shallow 04/23/18 07:40 Respiratory Pattern Normal 04/23/18 07:40 Blood Pressure 110/71 04/23/18 16:00 Blood Pressure Position Sitting 04/22/18 08:55 Pulse Oximetry 97 04/23/18 16:00 Respiratory End-tidal CO2 33 04/22/18 12:55 Oxygen Delivery Method Room Air 04/23/18 16:00 Oxygen Flow Rate 0 04/23/18 16:00 Pain Level 5 04/23/18 17:13 Comment 04/23/18 03:10 Intake & Output 04/22/18 04/23/18 04/23/18 23:59 11:59 23:59 Intake Total 1949 1302.333 / 1782.333 480 / 1782.333 Output Total 600 / 675 600 / 600 Balance 1350 / 1335 702.333 / 1182.333 480 / 1182.333 Weight 82.1 kg 82.1 kg Intake: IV 1470 / 1530 962.333 / 962.333 Oral 480 / 480 340 / 820 480 / 820 Output: Urine 600 / 675 600 / 600 Other: Urine Color Light Estefania Lothair Urine Appearance Clear Clear Emesis Description None Laboratory Results WBC 15.37 k/cumm (4.4-10.8) H 04/23/18 07:19 RBC 2.99 m/cumm (4.00-5.20) L 04/23/18 07:19 Hgb 8.0 g/dL (12.0-15.5) L D 04/23/18 07:19 Hct 26.6 % (36.0-46.0) L 04/23/18 07:19 MCV 89.0 fL (80-95) 04/23/18 07:19 MCH 26.8 pg (27.0-33.0) L 04/23/18 07:19 MCHC 30.1 g/dL (32.0-36.0) L 04/23/18 07:19 RDW 17.1 % (11.7-14.6) H 04/23/18 07:19 Plt Count 268 x1000/uL (130-400) 04/23/18 07:19 MPV 10.3 fL (8.0-11.0) 04/23/18 07:19 Immature Gran % 0.3 04/22/18 09:10 Neutrophils % 90.5 04/22/18 09:10 Lymphocytes % 2.6 04/22/18 09:10 Monocytes % 6.6 04/22/18 09:10 Eosinophils % 0.0 04/22/18 09:10 Basophils % 0.0 04/22/18 09:10 Absolute Neutrophils 19.04 k/cumm (1.2-6.7) H 04/22/18 09:10 Absolute Lymphocytes 0.55 k/cumm (1.2-3.4) L 04/22/18 09:10 Absolute Monocytes 1.39 k/cumm (0.11-0.7) H 04/22/18 09:10 Absolute Eosinophils 0.00 k/cumm (0.0-0.7) 04/22/18 09:10 Absolute Basophils 0.00 k/cumm (0.0-0.2) 04/22/18 09:10 ESR 24 MM/HR (0-20) H 04/22/18 09:10 Sodium 138 mmol/L (136-145) 04/23/18 07:19 Potassium 4.0 mmol/L (3.5-5.1) 04/23/18 07:19 Chloride 104 mmol/L (98-107) 04/23/18 07:19 Carbon Dioxide 24.8 mmol/L (21.0-32.0) 04/23/18 07:19 Anion Gap 9.2 mmol/L (3-11) 04/23/18 07:19 BUN 21 mg/dL (7-18) H D 04/23/18 07:19 Creatinine 0.97 mg/dL (0.55-1.02) 04/23/18 07:19 Estimated GFR/1.73 m2 >= 60.00 (mL/min/1.73m2) 04/23/18 07:19 Glucose 147 mg/dL (70-100) H 04/23/18 07:19 Hemoglobin A1c 6.9 % (4.5-6.2) H 04/22/18 09:15 Calcium 8.8 mg/dL (8.5-10.1) 04/23/18 07:19 Total Bilirubin 1.6 mg/dL (0.2-1.0) H 04/22/18 09:15 AST 29 U/L (15-37) 04/22/18 09:15 ALT 31 U/L (12-78) 04/22/18 09:15 Alkaline Phosphatase 61 U/L (46-116) 04/22/18 09:15 C-Reactive Protein 2.74 mg/dL (0.0-0.3) H 04/22/18 09:15 Total Protein 7.6 g/dL (6.4-8.2) 04/22/18 09:15 Albumin 3.4 g/dL (3.4-5.0) 04/22/18 09:15 Fluid Source L knee 04/22/18 09:10 Fluid Color Yellow 04/22/18 09:10 Fluid Appearance Purulent 04/22/18 09:10 Fluid WBC 51745 /MM3 (0-0) H 04/22/18 09:10 Fluid Mononuclear Cell 10 % (0-0) H 04/22/18 09:10 Fl Polymorphonucl Cell 90 % (0-0) H 04/22/18 09:10 Fluid Other Cells Cancelled 04/22/18 09:10 Fluid Crystals See comment 04/22/18 09:10 Fluid Crystal Source L knee 04/22/18 09:10 Fl Crystal Path Review 04/22/18 09:10 Path Cons Comment 04/22/18 09:10
[2018-04-23 19:45] VITALS: BP 127/79; PULSE 83; RESP 20; TEMP 37.4; O2SAT 96
[2018-04-23] MEDS: Montelukast 10 MG TAB PO (22:10)
[2018-04-24] VITALS (10 sets, daily range): BP systolic 112–143; BP diastolic 71–81; PULSE 69–87; RESP 16–18; TEMP 36–37.6; O2SAT 95–100
[2018-04-24] MEDS: Normal Saline Flush 10 ML SYR ×2 (01:51→17:05)
[2018-04-24] MEDS: oxyCODONE 5 MG TAB PO ×4 (01:51→17:04)
[2018-04-24] MEDS: Ketorolac 15 MG/ML VIAL IVP (07:07)
[2018-04-24 07:43] LABS: HCT 25.3 % (36.0-46.0); HGB 7.5 g/dL (12.0-15.5); Mean Corp. HGB Concentration 29.6 g/dL (32.0-36.0); Mean Corpuscular Hemoglobin 26.5 pg (27.0-33.0); Mean Corpuscular Volume 89.4 fL (80-95); Mean Platelet Volume 10.6 fL (8.0-11.0); Platelet Count 266 x1000/uL (130-400); RBC 2.83 m/cumm (4.00-5.20)
[2018-04-24] MEDS: Esomeprazole 40 MG CAPCR PO (07:44)
[2018-04-24] MEDS: FLUoxetine 20 MG CAP 60 MG PO (07:45)
[2018-04-24] MEDS: Acetaminophen 500 MG TAB 1000 MG PO ×3 (07:45→20:16)
[2018-04-24] MEDS: RIFAMPIN 300 MG CAP PO ×2 (07:45→20:16)
[2018-04-24] MEDS: Gabapentin 300 MG CAP PO ×3 (07:46→20:16)
[2018-04-24] MEDS: metFORMIN 500 MG TAB 1000 MG PO ×2 (07:46→17:04)
[2018-04-24] MEDS: Sucralfate 1 GM TAB PO ×2 (07:47→20:16)
[2018-04-24] MEDS: Aspirin E.C. 81 MG TABEC PO ×2 (07:47→20:16)
[2018-04-24] MEDS: Magnesium Oxide 400 MG TAB PO (07:47)
[2018-04-24] MEDS: Cetirizine 10 MG TAB PO (07:47)
[2018-04-24] MEDS: Budesonide/Formoterol 160/4.5 6 GM 60 PUFF INH IH ×2 (09:07→20:16)
[2018-04-24] MEDS: Levalbuterol HFA 15 GM INH 2 PUFF IH ×2 (09:12→20:17)
--- NOTE | 2018-04-24 10:13 | PDOC.CMPRO ---
Care Management Progress Note S/O: Barbara was lying in bed when CM met with her, she was pleasant in interaction and reported some pain but felt her pain was being managed. She shared concerns around W/C cost as she reported when she retrieved the W/C from [facility] she was told the DME was paid in full and now reports receiving monthly bills of which she can not afford. CM to discuss with [place] and patient for better understanding of situation. CM will continue to follow. A: 47 year old female admitted to [facility] 04/22/18 for infected prosthetic L TKA P: Barbara awaits determination of frequency and duration of needed IV ABX for infected prosthetic L TKA. Per MD, goal is to identify once daily IV ABX to enable Barbara to attend daily infusion therapy at [facility]. CM will continue to follow. She will transport via private vehicle with family when ready per MD.
--- NOTE | 2018-04-24 12:00 | DI.RAD_ITS ---
SYMPTOMS/DIAGNOSIS: GROUP A STREP BACTEREMIA, LOOKING FOR A SOURCE PORTABLE CHEST: Comparison is made with September,. The exam is limited by the patient's body habitus. The heart size is normal. There is a question of streaky densities seen at the left lung base, which could represent atelectasis; however, infiltrate cannot be excluded. The right lung appears clear. No effusions are seen. IMPRESSION: Limited exam. Question of left lower lobe atelectasis versus infiltrate. PA and lateral exam is recommended for further evaluation.
--- NOTE | 2018-04-24 12:22 | PT.INTREAT ---
Date of service: 04/24/18 Time of Service: 12:23 PT Notes Inpatient Physical Therapy Treatment Note [facility] Date: 04/24/18 PRECAUTIONS: Fall, WBAT L SUBJECTIVE: Fay states that she is having some soreness in her left knee this morning. She reports that she had some trouble sleeping due to the pain last night. OBJECTIVE: PAIN: Patient complained of left knee pain with transfers and gait training. BED MOBILITY/TRANSFERS Supine-sit: SBA in a.m.; S in p.m. Sit-supine: S in p.m. with leg creative writing english professor assist Sit-stand: SBA Stand-sit: SBA GAIT Assistive Device: FWW Weight bearing: WBAT L Assist: SBA Distance: 120' in both a.m. and p.m. THEREX: Patient completed a lower extremity strengthening and stabilization program, in a supine position, as per flow sheet. Patient continues to require assist for SLR exercise. TOILETING: Patient toileted with supervision ASSESSMENT: Patient tolerated session with some complaints of left knee pain with transfers and weight bearing. Patient would benefit from continued gait and transfer training as well as strengthening for improved mobility. PLAN: Continue with PTs POC TREATMENT CODE/TIME: Session 1: 30 minutes; 11786, 01239 Session 2: 25 minutes; 15185, [id number]
--- NOTE | 2018-04-24 12:28 | PTTR_ITS ---
Date of service: 04/24/18 Time of Service: 12:23 PT Notes Inpatient Physical Therapy Treatment Note [facility] Date: 04/24/18 PRECAUTIONS: Fall, WBAT L SUBJECTIVE: Fay states that she is having some soreness in her left knee this m orning. She reports that she had some trouble sleeping due to the pain last night. OBJECTIVE: PAIN: Patient complained of left knee pain with transfers and gait training. BED MOBILITY/TRANSFERS Supine-sit: SBA in a.m.; S in p.m. Sit-supine: S in p.m. with leg pit boss assist Sit-stand: SBA Stand-sit: SBA GAIT Assistive Device: FWW Weight bearing: WBAT L Assist: SBA Distance: 120' in both a.m. and p.m. THEREX: Patient completed a lower extremity strengthening and stabilization program, in a supine position, as per flow sheet. Patient continues to require assist for SLR exercise. TOILETING: Patient toileted with supervision ASSESSMENT: Patient tolerated session with some complaints of left knee pain with transfers and weight bearing. Patient would benefit from continued gait and transfer training as well as strengthening for improved mobility. PLAN: Continue with PTs POC TREATMENT CODE/TIME: Session 1: 30 minutes; 15254, 21672 Session 2: 25 minutes; 94244, 27715
[2018-04-24 13:34] LABS: Clarity Sl Cloudy; Specific Gravity 1.025 (1.005-1.025)
[2018-04-24 13:35] LABS: Bilirubin Color Interference (Negative); Blood Color Interference (Negative); Glucose Color Interference mg/dL (Negative); Ketones Color Interference mg/dL (Negative); Leukocyte Esterase Color Interference (Negative); Nitrite Color Interference (Negative); Urobilinogen Color Interference EU/dL (Up TO 0.2)
[2018-04-24 13:48] LABS: Epithelial Cells Many HPF (Negative)
[2018-04-24 13:49] LABS: Bacteria Many HPF (Negative); C & S Indicated? C&S Done As Ordered; Crystals Few Calcium Oxalate HPF (Negative)
[2018-04-24 14:01] LABS: ALT 19 U/L (12-78); AST 14 U/L (15-37); Albumin 2.4 g/dL (3.4-5.0); Alkaline Phosphatase 48 U/L (46-116); Anion Gap 8.8 mmol/L (3-11); BUN 21 mg/dL (7-18); C-Reactive Protein 9.19 mg/dL (0.0-0.3); CO2 27.2 mmol/L (21.0-32.0); CREATININE 0.79 mg/dL (0.55-1.02); Calcium 8.7 mg/dL (8.5-10.1); Chloride 103 mmol/L (98-107); Glucose 128 mg/dL (70-100); Potassium 4.1 mmol/L (3.5-5.1); Sodium 139 mmol/L (136-145); Total Protein 6.2 g/dL (6.4-8.2)
[2018-04-24] MEDS: Acetaminophen 325 MG TAB 650 MG PO (17:08)
[2018-04-24] MEDS: diphenhydrAMINE 25 MG CAP PO (17:09)
--- NOTE | 2018-04-24 17:35 | W.PM.PROGNOT ---
Date of Service Date of service: 04/24/18 Time of Service: 14:35 Assessment and Plan (1) Bacteremia: Current visit: Yes Status: Acute Has had one bottle for blood culture grows strep. This is not a likely contaminant but it also does not make sense of the total picture with her history of staph infection in the current staph infection in the knee. I have asked for hospitalist consult to help with this workup and management. I will check another set of blood cultures today. The current antibiotic of cefazolin will cover both the MSSA and the strep and I switched her to 2 g of this every 8 hours. I will continue to follow her CRP and CBC. (2) Infection of total left knee replacement: Current visit: Yes Status: Acute Initial cultures show MSSA. Her initial sed rate was only 24 which would indicate this was likely an acute process as the visible appearance of the knee would also indicate. I have started on rifampin given we have retained hardware. She is also on a high dose of cefazolin and to cover MSSA. She will have 6 weeks of IV antibiotics and then likely suppression. Qualifiers: Encounter type: sequela Qualified Code(s): T84.54XS - Infection and inflammatory reaction due to internal left knee prosthesis, sequela; Z96.652 - Presence of left artificial knee joint (3) Acute blood loss anemia: Current visit: Yes Status: Deleted (4) Acute blood loss anemia: Current visit: No Status: Acute Due to her malaise and not feeling well with the drop to 7.5, I will transfuse her 1 unit today. We will recheck hemoglobin tomorrow and follow this conservatively. Subjective Interval history since last seen: Fay reports to be feeling somewhat poorly today. She has had a cough today. 1 of her blood cultures did turn positive with strep and I consulted the hospitalist for further assistance in complete workup and management. Her knee culture has come back with MSSA and therefore she has been switched to cefazolin. She reports pain in the knee but it is manageable with the current pain regimen were on. Her hemoglobin also dropped to 7.5. She reports fatigue, malaise, and general ill feeling but no specific fevers or chills. No chest pain or shortness of breath. She is voiding spontaneously without pain or frequency. Exam Narrative Exam Narrative: Laying on her left side in the bed. She seems to be slightly pale and with less vigor in her appearance. She is alert and oriented x3. She is in no acute distress but does appear slightly more ill than usual. Evaluation left knee dressing shows no drainage. She keeps the knee at about 20 degrees of flexion. I am able to passively get her to about 10 degrees of flexion although she is causes pain. She is able to dorsiflex and plantarflex left ankle as well as extend and flex the great toe. Objective Objective Clinical Data: Abnormal lab results 04/24/18 04/24/18 04/24/18 Range/Units 07:15 07:15 11:10 RBC 2.83 L (4.00-5.20) m/cumm Hgb 7.5 L (12.0-15.5) g/dL Hct 25.3 L (36.0-46.0) % MCH 26.5 L (27.0-33.0) pg MCHC 29.6 L (32.0-36.0) g/dL RDW 17.0 H (11.7-14.6) % BUN 21 H (7-18) mg/dL Glucose 128 H (70-100) mg/dL AST 14 L (15-37) U/L C-Reactive Protein 9.19 H (0.0-0.3) mg/dL Total Protein 6.2 L (6.4-8.2) g/dL Albumin 2.4 L (3.4-5.0) g/dL Crossmatch See Detail Vital Signs Temperature 37.5 C 04/24/18 17:16 Temperature Source Tympanic 04/24/18 16:59 Pulse 81 04/24/18 17:16 Pulse Rhythm Regular 04/24/18 08:24 Respiratory Rate 18 04/24/18 17:16 Respiratory Effort Non-Labored 04/24/18 08:24 Respiratory Depth Normal 04/24/18 08:24 Respiratory Pattern Normal 04/24/18 08:24 Blood Pressure 143/75 H 04/24/18 17:16 Blood Pressure Position Sitting 04/22/18 08:55 Pulse Oximetry 100 04/24/18 17:16 Respiratory End-tidal CO2 33 04/22/18 12:55 Oxygen Delivery Method Room Air 04/24/18 17:16 Oxygen Flow Rate 0 04/24/18 17:16 Pain Level 7 04/24/18 17:04 Comment 04/23/18 03:10 Intake & Output 04/23/18 04/24/18 04/24/18 23:59 11:59 23:59 Intake Total 1570 / 2872.333 503 / 983 480 / 983 Output Total 400 / 1000 1800 / 1800 Balance 1170 / 1872.333 -1297 / -817 480 / -817 Intake: IV 250 / 1212.333 263 / 383 120 / 383 Oral 1320 / 1660 240 / 600 360 / 600 Output: Urine 400 / 1000 1800 / 1800 Other: Urine Color [place] Urine Appearance Clear Clear Urine Odor None Voiding Methods Toilet Laboratory Results WBC 10.10 k/cumm (4.4-10.8) D 04/24/18 07:15 RBC 2.83 m/cumm (4.00-5.20) L 04/24/18 07:15 Hgb 7.5 g/dL (12.0-15.5) L 04/24/18 07:15 Hct 25.3 % (36.0-46.0) L 04/24/18 07:15 MCV 89.4 fL (80-95) 04/24/18 07:15 MCH 26.5 pg (27.0-33.0) L 04/24/18 07:15 MCHC 29.6 g/dL (32.0-36.0) L 04/24/18 07:15 RDW 17.0 % (11.7-14.6) H 04/24/18 07:15 Plt Count 266 x1000/uL (130-400) 04/24/18 07:15 MPV 10.6 fL (8.0-11.0) 04/24/18 07:15 Immature Gran % 0.3 04/22/18 09:10 Neutrophils % 90.5 04/22/18 09:10 Lymphocytes % 2.6 04/22/18 09:10 Monocytes % 6.6 04/22/18 09:10 Eosinophils % 0.0 04/22/18 09:10 Basophils % 0.0 04/22/18 09:10 Absolute Neutrophils 19.04 k/cumm (1.2-6.7) H 04/22/18 09:10 Absolute Lymphocytes 0.55 k/cumm (1.2-3.4) L 04/22/18 09:10 Absolute Monocytes 1.39 k/cumm (0.11-0.7) H 04/22/18 09:10 Absolute Eosinophils 0.00 k/cumm (0.0-0.7) 04/22/18 09:10 Absolute Basophils 0.00 k/cumm (0.0-0.2) 04/22/18 09:10 ESR 24 MM/HR (0-20) H 04/22/18 09:10 Sodium 139 mmol/L (136-145) 04/24/18 07:15 Potassium 4.1 mmol/L (3.5-5.1) 04/24/18 07:15 Chloride 103 mmol/L (98-107) 04/24/18 07:15 Carbon Dioxide 27.2 mmol/L (21.0-32.0) 04/24/18 07:15 Anion Gap 8.8 mmol/L (3-11) 04/24/18 07:15 BUN 21 mg/dL (7-18) H 04/24/18 07:15 Creatinine 0.79 mg/dL (0.55-1.02) 04/24/18 07:15 Estimated GFR/1.73 m2 >= 60.00 (mL/min/1.73m2) 04/24/18 07:15 Glucose 128 mg/dL (70-100) H 04/24/18 07:15 Hemoglobin A1c 6.9 % (4.5-6.2) H 04/22/18 09:15 Calcium 8.7 mg/dL (8.5-10.1) 04/24/18 07:15 Total Bilirubin 1.0 mg/dL (0.2-1.0) 04/24/18 07:15 AST 14 U/L (15-37) L 04/24/18 07:15 ALT 19 U/L (12-78) 04/24/18 07:15 Alkaline Phosphatase 48 U/L (46-116) 04/24/18 07:15 C-Reactive Protein 9.19 mg/dL (0.0-0.3) H 04/24/18 07:15 Total Protein 6.2 g/dL (6.4-8.2) L 04/24/18 07:15 Albumin 2.4 g/dL (3.4-5.0) L 04/24/18 07:15 Urine Color [place] (Yellow) 04/24/18 12:50 Urine Clarity Sl cloudy 04/24/18 12:50 Urine pH Not Applicable 04/24/18 12:50 Ur Specific [place] 1.025 (1.005-1.025) 04/24/18 12:50 Urine Protein Color interference mg/dL (Negative) 04/24/18 12:50 Urine Ketones Color interference mg/dL (Negative) 04/24/18 12:50 Urine Blood Color interference (Negative) 04/24/18 12:50 Urine Nitrite Color interference (Negative) 04/24/18 12:50 Urine Bilirubin Color interference (Negative) 04/24/18 12:50 Urine Urobilinogen Color interference EU/dL (Up TO 0.2) 04/24/18 12:50 Ur Leukocyte Esterase Color interference (Negative) 04/24/18 12:50 Urine RBC Not Applicable 04/24/18 12:50 Urine WBC HPF (0-5) 04/24/18 12:50 Ur Epithelial Cells Many HPF (Negative) 04/24/18 12:50 Urine Crystals Few calcium oxalate HPF (Negative) 04/24/18 12:50 Urine Bacteria Many HPF (Negative) 04/24/18 12:50 Urine Mucus Not Applicable 04/24/18 12:50 Ur Culture Indicated? C&s done as ordered 04/24/18 12:50 Urine Glucose Color interference mg/dL (Negative) 04/24/18 12:50 Fluid Source L knee 04/22/18 09:10 Fluid Color Yellow 04/22/18 09:10 Fluid Appearance Purulent 04/22/18 09:10 Fluid WBC 83881 /MM3 (0-0) H 04/22/18 09:10 Fluid Mononuclear Cell 10 % (0-0) H 04/22/18 09:10 Fl Polymorphonucl Cell 90 % (0-0) H 04/22/18 09:10 Fluid Other Cells Cancelled 04/22/18 09:10 Fluid Crystals See comment 04/22/18 09:10 Fluid Crystal Source L knee 04/22/18 09:10 Fl Crystal Path Review 04/22/18 09:10 Path Cons Comment 04/22/18 09:10 Patient ABO/Rh A Positive 04/24/18 11:10 Antibody Screen Negative 04/24/18 11:10 Crossmatch See Detail 04/24/18 11:10
--- NOTE | 2018-04-24 19:29 | MCONE_ITS ---
Date of service: 04/24/18 Time of Service: 16:15 Assessment and Plan (1) Infection of total left knee replacement: Current visit: Yes Status: Acute Agree with current antibiotic choice. Continue to trend CRP. Defering care to primary team. Qualifiers: Encounter type: sequela Qualified Code(s): T84.54XS - Infection and inflammatory reaction due to internal left knee prosthesis, sequela; Z96.652 - Presence of left artificial knee joint (2) Bacteremia: Current visit: Yes Status: Acute Growing group A strep in 1 bottle; repeat blood cultures are being obtained. Source of this is not clear - will discuss with ID whether or not echo is indicated in this context. (3) Acute bronchitis: Current visit: Yes Status: Acute I have asked the patient to give us a sputum sample. I am not convinced she has a pneumonia. She is on ancef - which should provide broad enough coverage for now, but adding atypical coverage could be considered if no improvement in 48 hours. I have added duonebs; continue symbicort. No role for steroids at this time. Encourage IS. (4) Depression with anxiety: Current visit: No Status: Acute Continue prozac (5) Acute blood loss anemia: Current visit: No Status: Acute s/p transfusion. At this point, would monitor H/H. Checking hemoccult (6) Diabetes: Current visit: No Status: Chronic NIDDM2 - patient was continued on metformin and started on SSI. Would carefully watch kidney function on metformin with low threshold of discontinuation (7) Asthma: Current visit: No Status: Chronic As above Qualifiers: Asthma severity: mild Asthma persistence: intermittent Asthma com plication type: with acute exacerbation Qualified Code(s): J45.21 - Mild intermittent asthma with (acute) exacerbation (8) DVT prophylaxis: Current visit: Yes Status: Acute on asa 81 mg PO BID. History of Present Illness Chief Complaint: L knee infection and bacteremia with discordant organisms Narrative: Ms Owen is a 47 year old female with PMHx of prior L knee prosthesis infection, requiring a 2 stage revision, as well as history of asthma, GERD, and allergic rhinitis, who was admitted to Dr Gongora's service on 04/22/18 and taken to OR for irrigation and debridement of the L knee prosthesis with implantation of antibiotic beads. Polyethylene spacer was removed, a new one was placed. EBL was about 150 cc's. Intraoperative cultures are growing MSSA. Her blood cultures, interestingly, are growing group A strep (1 bottle out of 4). The patient was initially treated with vancomycin and rifampin. Now that her organisms are known, she was transitioned to ancef + rifampin. She states that she has a cough productive of yellowish sputum ever since she was admitted. She denies any sore throat, complains of being really thirsty. Denies chest pain, shortness of breath, nausea, vomiting, abdominal pain, urinary symptoms. She is about to be transfused 1 unit of pRBC's. Consults Consult date: 04/24/18 Requesting physician: Raheel Gongora Review of Systems Review of Systems 12 systems reviewed. Pertinent positives and negatives are as per HPI. 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 Grandfather Heart disease Grandfather Diabetes Heart disease Grandmother Diabetes Heart disease Grandmother Heart disease Hyperlipidemia Asthma Social History Smoking and Tabacco status: Never Exam Narrative Exam Narrative: General: Very pleasant middle aged female, laying comfortably in bed, pale Neurological: A&Ox3, no focal deficits Psychiatric: appropriate speech pattern/content Skin: LLE is dressed - c/d/i; otherwise, dry, intct HEENT: EOMI, Dry MM, clear oropharynx, no submandibular or cervical lymphadenopathy, no goiter or JVD Cardiovascular: RRR, no m/r/g Lungs: quiet rhonchi B Gastrointestinal: abdomen is soft, nontender, nondistended Extremities: no e/c/c BLE's; LLE dressed - c/d/i. +2 pedal pulses RLE Results Last Vital Signs Temp 37.5 C 04/24/18 18:46 Pulse 77 04/24/18 18:46 Resp 18 04/24/18 18:46 BP 121/77 04/24/18 18:46 Pulse Ox 98 04/24/18 18:46 Labs : 04/24/18 07:15 04/24/18 07:15 Laboratory Results - last 24 hr 04/24/18 04/24/18 04/24/18 07:15 07:15 11:10 WBC 10.10 D RBC 2.83 L Hgb 7.5 L Hct 25.3 L MCV 89.4 MCH 26.5 L MCHC 29.6 L RDW 17.0 H Plt Count 266 MPV 10.6 Sodium 139 Potassium 4.1 Chloride 103 Carbon Dioxide 27.2 Anion Gap 8.8 BUN 21 H Creatinine 0.79 Estimated GFR/1.73 m2 >= 60.00 Glucose 128 H Calcium 8.7 Total Bilirubin 1.0 AST 14 L ALT 19 Alkaline Phosphatase 48 C-Reactive Protein 9.19 H Total Protein 6.2 L Albumin 2.4 L Urine Color Urine Clarity Urine pH Ur Specific [place] Urine Protein Urine Ketones Urine Blood Urine Nitrite Urine Bilirubin Urine Urobilinogen Ur Leukocyte Esterase Urine RBC Urine WBC Ur Epithelial Cells Urine Crystals Urine Bacteria Urine Mucus Ur Culture Indicated? Urine Glucose Patient ABO/Rh A Positive Antibody Screen Negative Crossmatch See Detail 04/24/18 12:50 WBC RBC Hgb Hct MCV MCH MCHC RDW Plt Count MPV Sodium Potassium Chloride Carbon Dioxide Anion Gap BUN Creatinine Estimated GFR/1.73 m2 Glucose Calcium Total Bilirubin AST ALT Alkaline Phosphatase C-Reactive Protein Total Protein Albumin Urine Color [place] Urine Clarity Sl cloudy Urine pH Not Applicable Ur Specific [place] 1.025 Urine Protein Color interference Urine Ketones Color interference Urine Blood Color interference Urine Nitrite Color interference Urine Bilirubin Color interference Urine Urobilinogen Color interference Ur Leukocyte Esterase Color interference Urine RBC Not Applicable Urine WBC Ur Epithelial Cells Many Urine Crystals Few calcium oxalate Urine Bacteria Many Urine Mucus Not Applicable Ur Culture Indicated? C&s done as ordered Urine Glucose Color interference Patient ABO/Rh Antibody Screen Crossmatch CXR: Limited exam. Question of left lower lobe atelectasis versus infiltrate. PA and lateral exam is recommended for further evaluation.
[2018-04-24] MEDS: Montelukast 10 MG TAB PO (21:49)
[2018-04-24] MEDS: Normal Saline Flush 10 ML SYR IVP (21:50)
[2018-04-25 02:09] VITALS: BP 134/83; PULSE 74; RESP 17; TEMP 37.1; O2SAT 99
[2018-04-25] MEDS: oxyCODONE 5 MG TAB PO ×4 (04:32→16:28)
[2018-04-25 04:40] VITALS: BP 137/75; PULSE 81; RESP 18; TEMP 37.1; O2SAT 98
[2018-04-25] MEDS: RIFAMPIN 300 MG CAP PO ×2 (07:42→20:08)
[2018-04-25] MEDS: Acetaminophen 500 MG TAB 1000 MG PO ×3 (07:42→20:08)
[2018-04-25] MEDS: Esomeprazole 40 MG CAPCR PO (07:43)
[2018-04-25] MEDS: Sucralfate 1 GM TAB PO ×2 (07:44→20:09)
[2018-04-25] MEDS: FLUoxetine 20 MG CAP 60 MG PO (07:44)
[2018-04-25] MEDS: metFORMIN 500 MG TAB 1000 MG PO ×2 (07:44→16:28)
[2018-04-25] MEDS: Aspirin E.C. 81 MG TABEC PO ×2 (07:45→20:09)
[2018-04-25] MEDS: Magnesium Oxide 400 MG TAB PO (07:45)
[2018-04-25] MEDS: Cetirizine 10 MG TAB PO (07:45)
[2018-04-25 07:53] VITALS: BP 120/75; PULSE 81; RESP 15; TEMP 37.2; O2SAT 98
[2018-04-25 07:57] LABS: HGB 9.3 g/dL (12.0-15.5); Mean Corpuscular Hemoglobin 27.4 pg (27.0-33.0); Mean Corpuscular Volume 88.2 fL (80-95); Mean Platelet Volume 10.2 fL (8.0-11.0); Platelet Count 311 x1000/uL (130-400); RBC Distribution Width 16.2 % (11.7-14.6); White Blood Cell Count 8.53 k/cumm (4.4-10.8)
[2018-04-25 08:16] LABS: Anion Gap 9.4 mmol/L (3-11); BUN 13 mg/dL (7-18); C-Reactive Protein 6.45 mg/dL (0.0-0.3); CO2 26.6 mmol/L (21.0-32.0); Chloride 101 mmol/L (98-107); Glucose 126 mg/dL (70-100); Magnesium 1.4 mg/dL (1.8-2.4); Potassium 3.6 mmol/L (3.5-5.1); Sodium 137 mmol/L (136-145)
[2018-04-25] MEDS: Gabapentin 300 MG CAP PO ×3 (08:37→20:09)
[2018-04-25] MEDS: Levalbuterol HFA 15 GM INH 2 PUFF IH ×2 (09:35→20:07)
[2018-04-25] MEDS: Budesonide/Formoterol 160/4.5 6 GM 60 PUFF INH IH ×2 (09:36→20:07)
--- NOTE | 2018-04-25 10:09 | CMPROGNOTE_ITS ---
- If Service Date Differs Date of service: 04/25/18 Time of Service: 10:09 Care Management Progress Note S/O: Barbara is lying in bed when this sign writer hand visits this morning, she is pleasant and receptive to discussion. Barbara's Rishi is in the room with her, and engages in discussion around DC planning. Barbara states that she will be leaving tomorrow and coming to the hospital for infusions starting on Monday. AVANI spoke with Dr. Gongora who confirmed the above. AVANI spoke with the infusion room as Fay would like to have her infusion at 1300. Jodi, Infusion Coding Compliance Auditor, states that she will be able to work with Fay in regards to the timing of her infusion. Fay states that they will be moving into their new trailer on Monday which she is excited about. A: 47 year old female admitted to [facility] 04/22/18 for infected prosthetic L TKA P: Barbara awaits determination of frequency and duration of needed IV ABX for infected prosthetic L TKA. Per MD, goal is to identify once daily IV ABX to enable Barbara to attend daily infusion therapy at [facility]. AVANI will continue to follow. She will transport via private vehicle with family when ready per MD.
[2018-04-25 11:16] VITALS: BP 115/70; PULSE 78; RESP 16; TEMP 37.3; O2SAT 98
[2018-04-25] MEDS: LORazepam 1 MG TAB PO (12:03)
--- NOTE | 2018-04-25 12:39 | PT.INTREAT ---
Date of service: 04/25/18 Time of Service: 12:40 PT Notes Inpatient Physical Therapy Treatment Note [facility] Date: 04/25/18 PRECAUTIONS: Fall, WBAT on L SUBJECTIVE: Fay states that she continues to have left knee soreness. OBJECTIVE: PAIN: Patient complains of left knee soreness with weight bearing and ther ex BED MOBILITY/TRANSFERS Sit-stand: S Stand-sit: S GAIT Assistive Device: FWW Weight bearing: WBAT L Assist: S Distance: 200' THEREX: Patient completed a lower extremity strengthening and stabilization program, in a seated position, as per flow sheet. Patient's left knee AAROM is 14-85 degrees with moderate overpressure into extension and discomfort at end range. STAIRS: Up/[id number] and 2x6 using one rail/axillary crutch and a step to pattern with supervision ASSESSMENT: Patient tolerated session with minimal complaints of left knee soreness with weight bearing and ther ex. Patient was able to tolerate a slight progression in gait distance with FWW support and supervision. Patient would benefit from continued gait training as well as strengthening for improved activity tolerance. PLAN: Continue with PTs POC TREATMENT CODE/TIME: 30 minutes; [id number], [id number]
[2018-04-25] MEDS: MAGNESIUM SULFATE 4 GM/100 ML BAG IVPB (13:51)
--- NOTE | 2018-04-25 14:06 | PT.INTREAT ---
Date of service: 04/25/18 Time of Service: 01:45 PT Notes Inpatient Physical Therapy Treatment Note [facility] Date: 04/25/18 PRECAUTIONS:Fall/ WBAT L LE OBJECTIVE: Supine-sit: Min Assistx1 Sit-supine: Min Assistx1 Sit-stand: SBA Stand-sit: SBA GAIT Assistive Device: FWW Weight bearing: WBAT L LE Assist: SBA Distance: 120ft THEREX: Pt completed LE strengthening ther ex as per flow sheet. Pt did require assit with her hip abd. ASSESSMENT: Pt tolerated today's session fairly well. Pt has some difficulty with moving the involved LE in and out of bed. PLAN: Cont as per PT POC. TREATMENT CODE/TIME: 1:45-2:05 (20) TA
[2018-04-25] MEDS: Normal Saline Flush 10 ML SYR IVP ×2 (14:47→21:26)
[2018-04-25 16:30] VITALS: BP 129/81; PULSE 71; RESP 20; TEMP 37.5; O2SAT 99
[2018-04-25] MEDS: Magnesium Chloride 64 MG TABCR PO (20:08)
--- NOTE | 2018-04-25 20:18 | PGE_ITS ---
Date of Service Date of service: 04/25/18 Time of Service: 16:45 Assessment and Plan (1) Infection of total left knee replacement: Current visit: Yes Status: Acute Continue ancef + rifampin. CRP better. Defering care to primary team. Qualifiers: Encounter type: sequela Qualified Code(s): T84.54XS - Infection and inflammatory reaction due to internal left knee prosthesis, sequela; Z96.652 - Presence of left artificial knee joint (2) Bacteremia: Current visit: No Status: Acute Growing group A strep in 1 bottle; repeat blood cultures with no growth to date. (3) Acute bronchitis: Current visit: No Status: Acute I have asked the patient to give us a sputum sample. Continue ancef. Would repeat CXR in am. I have added duonebs; continue symbicort. No role for steroids at this time. Encourage IS. (4) Depression with anxiety: Current visit: No Status: Acute Continue prozac (5) Acute blood loss anemia: Current visit: No Status: Acute s/p transfusion. Continue to monitor H/H (6) Diabetes: Current visit: No Status: Chronic NIDDM2 - patient was continued on metformin and started on SSI. Would carefully watch kidney function on metformin with low threshold of discontinuation (7) Asthma: Current visit: No Status: Chronic As above Qualifiers: Asthma severity: mild Asthma persistence: intermittent Asthma complication type: with acute exacerbation Qualified Code(s): J45.21 - Mild intermittent asthma with (acute) exacerbation (8) DVT prophylaxis: Current visit: No Status: Acute on asa 81 mg PO BID. Subjective Interval history since last seen: States her L knee pain is well controlled. Denies dizziness, chest pain, shortness of breath, nausea,vomiting. S/p Picc line. She is under impression she is being discharged home tomorrow. Exam Narrative Exam Narrative: General: Very pleasant middle aged female, laying comfortably in bed, pale Neurological: A&Ox3, no focal deficits HEENT: EOMI, MMM, clear oropharynx, no submandibular or cervical lymphadenopathy, no goiter or JVD Cardiovascular: RRR, no m/r/g Lungs: quiet rhonchi B Gastrointestinal: abdomen is soft, nontender, nondistended Extremities: no e/c/c BLE's; LLE dressed - c/d/i. +2 pedal pulses RLE Objective Objective Clinical Data: Abnormal lab results 04/25/18 04/25/18 Range/Units 07:28 07:28 RBC 3.40 L (4.00-5.20) m/cumm Hgb 9.3 L (12.0-15.5) g/dL Hct 30.0 L (36.0-46.0) % MCHC 31.0 L (32.0-36.0) g/dL RDW 16.2 H (11.7-14.6) % Glucose 126 H (70-100) mg/dL Magnesium 1.4 L (1.8-2.4) mg/dL C-Reactive Protein 6.45 H (0.0-0.3) mg/dL Vital Signs Temperature 37.5 C 04/25/18 16:30 Temperature Source Tympanic 04/25/18 16:30 Pulse 71 04/25/18 16:30 Pulse Rhythm Regular 04/25/18 10:48 Respiratory Rate 20 04/25/18 16:30 Respiratory Effort Non-Labored 04/25/18 16:50 Respiratory Depth Normal 04/25/18 16:50 Respiratory Pattern Normal 04/25/18 16:50 Blood Pressure 129/81 04/25/18 16:30 Blood Pressure Position Sitting 04/22/18 08:55 Pulse Oximetry 99 04/25/18 16:30 Respiratory End-tidal CO2 33 04/22/18 12:55 Oxygen Delivery Method Room Air 04/25/18 16:30 Oxygen Flow Rate 0 04/25/18 16:30 Pain Level 6 04/25/18 20:08 Comment 04/25/18 04:40 Intake & Output 04/24/18 04/25/18 04/25/18 23:59 11:59 23:59 Intake Total 1120 / 1623 490 / 1070 580 / 1070 Output Total 1350 / 3150 1800 / 2450 650 / 2450 Balance -230 / -1527 -1310 / -1380 -70 / -1380 Intake: IV 260 / 523 100 / 100 Oral 560 / 800 390 / 970 580 / 970 Blood Product 300 / 300 Rbc Leuko Reduced Unit 300 / 300 [id number] Output: Urine 1350 / 3150 1800 / 2450 650 / 2450 Other: Urine Color Yellow Yellow [place] Urine Appearance Clear Clear Clear Urine Odor Strong Normal Normal Stool Occult Blood Negative Stool Size Copious Stool Characteristics Soft Liquid Voiding Methods Toilet Toilet Toilet Laboratory Results WBC 8.53 k/cumm (4.4-10.8) 04/25/18 07:28 RBC 3.40 m/cumm (4.00-5.20) L 04/25/18 07:28 Hgb 9.3 g/dL (12.0-15.5) L 04/25/18 07:28 Hct 30.0 % (36.0-46.0) L 04/25/18 07:28 MCV 88.2 fL (80-95) 04/25/18 07:28 MCH 27.4 pg (27.0-33.0) 04/25/18 07:28 MCHC 31.0 g/dL (32.0-36.0) L 04/25/18 07:28 RDW 16.2 % (11.7-14.6) H 04/25/18 07:28 Plt Count 311 x1000/uL (130-400) 04/25/18 07:28 MPV 10.2 fL (8.0-11.0) 04/25/18 07:28 Immature Gran % 0.3 04/22/18 09:10 Neutrophils % 90.5 04/22/18 09:10 Lymphocytes % 2.6 04/22/18 09:10 Monocytes % 6.6 04/22/18 09:10 Eosinophils % 0.0 04/22/18 09:10 Basophils % 0.0 04/22/18 09:10 Absolute Neutrophils 19.04 k/cumm (1.2-6.7) H 04/22/18 09:10 Absolute Lymphocytes 0.55 k/cumm (1.2-3.4) L 04/22/18 09:10 Absolute Monocytes 1.39 k/cumm (0.11-0.7) H 04/22/18 09:10 Absolute Eosinophils 0.00 k/cumm (0.0-0.7) 04/22/18 09:10 Absolute Basophils 0.00 k/cumm (0.0-0.2) 04/22/18 09:10 ESR 24 MM/HR (0-20) H 04/22/18 09:10 Sodium 137 mmol/L (136-145) 04/25/18 07:28 Potassium 3.6 mmol/L (3.5-5.1) 04/25/18 07:28 Chloride 101 mmol/L (98-107) 04/25/18 07:28 Carbon Dioxide 26.6 mmol/L (21.0-32.0) 04/25/18 07:28 Anion Gap 9.4 mmol/L (3-11) 04/25/18 07:28 BUN 13 mg/dL (7-18) D 04/25/18 07:28 Creatinine 0.80 mg/dL (0.55-1.02) 04/25/18 07:28 Estimated GFR/1.73 m2 >= 60.00 (mL/min/1.73m2) 04/25/18 07:28 Glucose 126 mg/dL (70-100) H 04/25/18 07:28 Hemoglobin A1c 6.9 % (4.5-6.2) H 04/22/18 09:15 Calcium 9.0 mg/dL (8.5-10.1) 04/25/18 07:28 Magnesium 1.4 mg/dL (1.8-2.4) L 04/25/18 07:28 Total Bilirubin 1.0 mg/dL (0.2-1.0) 04/24/18 07:15 AST 14 U/L (15-37) L 04/24/18 07:15 ALT 19 U/L (12-78) 04/24/18 07:15 Alkaline Phosphatase 48 U/L (46-116) 04/24/18 07:15 C-Reactive Protein 6.45 mg/dL (0.0-0.3) H 04/25/18 07:28 Total Protein 6.2 g/dL (6.4-8.2) L 04/24/18 07:15 Albumin 2.4 g/dL (3.4-5.0) L 04/24/18 07:15 Urine Color [place] (Yellow) 04/24/18 12:50 Urine Clarity Sl cloudy 04/24/18 12:50 Urine pH Not Applicable 04/24/18 12:50 Ur Specific [place] 1.025 (1.005-1.025) 04/24/18 12:50 Urine Protein Color interference mg/dL (Negative) 04/24/18 12:50 Urine Ketones Color interference mg/dL (Negative) 04/24/18 12:50 Urine Blood Color interference (Negative) 04/24/18 12:50 Urine Nitrite Color interference (Negative) 04/24/18 12:50 Urine Bilirubin Color interference (Negative) 04/24/18 12:50 Urine Urobilinogen Color interference EU/dL (Up TO 0.2) 04/24/18 12:50 Ur Leukocyte Esterase Color interference (Negative) 04/24/18 12:50 Urine RBC Not Applicable 04/24/18 12:50 Urine WBC HPF (0-5) 04/24/18 12:50 Ur Epithelial Cells Many HPF (Negative) 04/24/18 12:50 Urine Crystals Few calcium oxalate HPF (Negative) 04/24/18 12:50 Urine Bacteria Many HPF (Negative) 04/24/18 12:50 Urine Mucus Not Applicable 04/24/18 12:50 Ur Culture Indicated? C&s done as ordered 04/24/18 12:50 Urine Glucose Color interference mg/dL (Negative) 04/24/18 12:50 Fluid Source L knee 04/22/18 09:10 Fluid Color Yellow 04/22/18 09:10 Fluid Appearance Purulent 04/22/18 09:10 Fluid WBC 96731 /MM3 (0-0) H 04/22/18 09:10 Fluid Mononuclear Cell 10 % (0-0) H 04/22/18 09:10 Fl Polymorphonucl Cell 90 % (0-0) H 04/22/18 09:10 Fluid Other Cells Cancelled 04/22/18 09:10 Fluid Crystals See comment 04/22/18 09:10 Fluid Crystal Source L knee 04/22/18 09:10 Fl Crystal Path Review 04/22/18 09:10 Path Cons Comment 04/22/18 09:10 Patient ABO/Rh A Positive 04/24/18 11:10 Antibody Screen Negative 04/24/18 11:10 Crossmatch See Detail 04/24/18 11:10
[2018-04-25 20:25] VITALS: BP 120/72; PULSE 80; RESP 20; TEMP 37.3; O2SAT 96
[2018-04-25] MEDS: Montelukast 10 MG TAB PO (21:24)
--- NOTE | 2018-04-25 21:24 | PGE_ITS ---
Date of Service Date of service: 04/25/18 Time of Service: 12:16 Assessment and Plan (1) Infection of total left knee replacement: Current visit: Yes Status: Acute Barbara is doing well status post irrigation and debridement of her infected left knee. Repeat blood cultures have been negative. She does have MSSA in the knee, similar to her previous organism. We can plan to switch to ceftriaxone once she discharges. I appreciate medicine input. She did have some questionable findings on chest x-ray with bibasilar rhonchi. Per recommendation from Dr. Diaz, we will repeat a chest x-ray in the morning. Fay has some social constraints where she needs to be home with possible by 1:00 and therefore I will plan to have her discharge done in the morning assuming all labs and findings are acceptable. We will plan to set up ceftriaxone infusions daily as an outpatient for Fay. Qualifiers: Encounter type: sequela Qualified Code(s): T84.54XS - Infection and inflammatory reaction due to internal left knee prosthesis, sequela; Z96.652 - Presence of left artificial knee joint Subjective Interval history since last seen: Parent reports to be feeling much better today. She still has some pain in the knee but feels like it is doing much better and feels confident with ambulation. She has received PICC line. Repeat blood cultures have no growth to date. She denies fevers or chills. She denies cough, shortness of breath. Hemoglobin responded to transfusion. CRP has decreased. Exam Narrative Exam Narrative: No acute distress. Alert and oriented x3. Evaluation left knee shows a well approximated incision. There is no drainage. There is some swelling and a mild effusion. No erythema. The dressing is changed. Significant lag with straight leg raise. Intact ankle dorsiflexion, plantarflexion, EHL, FHL. Objective Objective Clinical Data: Abnormal lab results 04/25/18 04/25/18 Range/Units 07:28 07:28 RBC 3.40 L (4.00-5.20) m/cumm Hgb 9.3 L (12.0-15.5) g/dL Hct 30.0 L (36.0-46.0) % MCHC 31.0 L (32.0-36.0) g/dL RDW 16.2 H (11.7-14.6) % Glucose 126 H (70-100) mg/dL Magnesium 1.4 L (1.8-2.4) mg/dL C-Reactive Protein 6.45 H (0.0-0.3) mg/dL Vital Signs Temperature 37.3 C 04/25/18 20:25 Temperature Source Tympanic 04/25/18 20:25 Pulse 80 04/25/18 20:25 Pulse Rhythm Regular 04/25/18 20:35 Respiratory Rate 20 04/25/18 20:25 Respiratory Effort Non-Labored 04/25/18 20:35 Respiratory Depth Normal 04/25/18 20:35 Respiratory Pattern Normal 04/25/18 20:35 Blood Pressure 120/72 04/25/18 20:25 Blood Pressure Position Sitting 04/22/18 08:55 Pulse Oximetry 96 04/25/18 20:25 Respiratory End-tidal CO2 33 04/22/18 12:55 Oxygen Delivery Method Room Air 04/25/18 20:25 Oxygen Flow Rate 0 04/25/18 20:25 Pain Level 6 04/25/18 20:08 Comment 04/25/18 04:40 Intake & Output 04/24/18 04/25/18 04/25/18 23:59 11:59 23:59 Intake Total 1120 / 1623 490 / 1070 580 / 1070 Output Total 1350 / 3150 1800 / 2450 650 / 2450 Balance -230 / -1527 -1310 / -1380 -70 / -1380 Intake: IV 260 / 523 100 / 100 Oral 560 / 800 390 / 970 580 / 970 Blood Product 300 / 300 Rbc Leuko Reduced Unit 300 / 300 [id number] Output: Urine 1350 / 3150 1800 / 2450 650 / 2450 Other: Urine Color Yellow Yellow [employer] Urine Appearance Clear Clear Clear Urine Odor Strong Normal Normal Stool Occult Blood Negative Stool Size Copious Stool Characteristics Soft Liquid Voiding Methods Toilet Toilet Toilet Laboratory Results WBC 8.53 k/cumm (4.4-10.8) 04/25/18 07:28 RBC 3.40 m/cumm (4.00-5.20) L 04/25/18 07:28 Hgb 9.3 g/dL (12.0-15.5) L 04/25/18 07:28 Hct 30.0 % (36.0-46.0) L 04/25/18 07:28 MCV 88.2 fL (80-95) 04/25/18 07:28 MCH 27.4 pg (27.0-33.0) 04/25/18 07:28 MCHC 31.0 g/dL (32.0-36.0) L 04/25/18 07:28 RDW 16.2 % (11.7-14.6) H 04/25/18 07:28 Plt Count 311 x1000/uL (130-400) 04/25/18 07:28 MPV 10.2 fL (8.0-11.0) 04/25/18 07:28 Immature Gran % 0.3 04/22/18 09:10 Neutrophils % 90.5 04/22/18 09:10 Lymphocytes % 2.6 04/22/18 09:10 Monocytes % 6.6 04/22/18 09:10 Eosinophils % 0.0 04/22/18 09:10 Basophils % 0.0 04/22/18 09:10 Absolute Neutrophils 19.04 k/cumm (1.2-6.7) H 04/22/18 09:10 Absolute Lymphocytes 0.55 k/cumm (1.2-3.4) L 04/22/18 09:10 Absolute Monocytes 1.39 k/cumm (0.11-0.7) H 04/22/18 09:10 Absolute Eosinophils 0.00 k/cumm (0.0-0.7) 04/22/18 09:10 Absolute Basophils 0.00 k/cumm (0.0-0.2) 04/22/18 09:10 ESR 24 MM/HR (0-20) H 04/22/18 09:10 Sodium 137 mmol/L (136-145) 04/25/18 07:28 Potassium 3.6 mmol/L (3.5-5.1) 04/25/18 07:28 Chloride 101 mmol/L (98-107) 04/25/18 07:28 Carbon Dioxide 26.6 mmol/L (21.0-32.0) 04/25/18 07:28 Anion Gap 9.4 mmol/L (3-11) 04/25/18 07:28 BUN 13 mg/dL (7-18) D 04/25/18 07:28 Creatinine 0.80 mg/dL (0.55-1.02) 04/25/18 07:28 Estimated GFR/1.73 m2 >= 60.00 (mL/min/1.73m2) 04/25/18 07:28 Glucose 126 mg/dL (70-100) H 04/25/18 07:28 Hemoglobin A1c 6.9 % (4.5-6.2) H 04/22/18 09:15 Calcium 9.0 mg/dL (8.5-10.1) 04/25/18 07:28 Magnesium 1.4 mg/dL (1.8-2.4) L 04/25/18 07:28 Total Bilirubin 1.0 mg/dL (0.2-1.0) 04/24/18 07:15 AST 14 U/L (15-37) L 04/24/18 07:15 ALT 19 U/L (12-78) 04/24/18 07:15 Alkaline Phosphatase 48 U/L (46-116) 04/24/18 07:15 C-Reactive Protein 6.45 mg/dL (0.0-0.3) H 04/25/18 07:28 Total Protein 6.2 g/dL (6.4-8.2) L 04/24/18 07:15 Albumin 2.4 g/dL (3.4-5.0) L 04/24/18 07:15 Urine Color [employer] (Yellow) 04/24/18 12:50 Urine Clarity Sl cloudy 04/24/18 12:50 Urine pH Not Applicable 04/24/18 12:50 Ur Specific [place] 1.025 (1.005-1.025) 04/24/18 12:50 Urine Protein Color interference mg/dL (Negative) 04/24/18 12:50 Urine Ketones Color interference mg/dL (Negative) 04/24/18 12:50 Urine Blood Color interference (Negative) 04/24/18 12:50 Urine Nitrite Color interference (Negative) 04/24/18 12:50 Urine Bilirubin Color interference (Negative) 04/24/18 12:50 Urine Urobilinogen Color interference EU/dL (Up TO 0.2) 04/24/18 12:50 Ur Leukocyte Esterase Color interference (Negative) 04/24/18 12:50 Urine RBC Not Applicable 04/24/18 12:50 Urine WBC HPF (0-5) 04/24/18 12:50 Ur Epithelial Cells Many HPF (Negative) 04/24/18 12:50 Urine Crystals Few calcium oxalate HPF (Negative) 04/24/18 12:50 Urine Bacteria Many HPF (Negative) 04/24/18 12:50 Urine Mucus Not Applicable 04/24/18 12:50 Ur Culture Indicated? C&s done as ordered 04/24/18 12:50 Urine Glucose Color interference mg/dL (Negative) 04/24/18 12:50 Fluid Source L knee 04/22/18 09:10 Fluid Color Yellow 04/22/18 09:10 Fluid Appearance Purulent 04/22/18 09:10 Fluid WBC 47148 /MM3 (0-0) H 04/22/18 09:10 Fluid Mononuclear Cell 10 % (0-0) H 04/22/18 09:10 Fl Polymorphonucl Cell 90 % (0-0) H 04/22/18 09:10 Fluid Other Cells Cancelled 04/22/18 09:10 Fluid Crystals See comment 04/22/18 09:10 Fluid Crystal Source L knee 04/22/18 09:10 Fl Crystal Path Review 04/22/18 09:10 Path Cons Comment 04/22/18 09:10 Patient ABO/Rh A Positive 04/24/18 11:10 Antibody Screen Negative 04/24/18 11:10 Crossmatch See Detail 04/24/18 11:10
[2018-04-26 01:19] VITALS: BP 147/87; PULSE 70; RESP 18; TEMP 36.8; O2SAT 95
[2018-04-26 03:25] VITALS: BP 128/78; PULSE 72; RESP 16; TEMP 36.6; O2SAT 97
[2018-04-26] MEDS: Normal Saline Flush 10 ML SYR IVP ×2 (05:23→08:24)
[2018-04-26] MEDS: oxyCODONE 5 MG TAB PO ×2 (05:32→08:38)
--- NOTE | 2018-04-26 06:05 | DSE_ITS ---
Date of service: 04/26/18 Time of Service: 07:02 DS: Diagnosis Discharge Diagnosis (1) Infection of total left knee replacement: Status: Acute (2) Acute blood loss anemia: Status: Acute Discharge Plan Disposition Patient Disposition: HOME Condition: Stable Discharge Details Chief Complaint: Orthopedic Clinical Impression: Knee pain, left, Post-operative complication Reason For Visit: INFECTED PROSTHETIC L TKA Admit Date/Time: 04/22/18 09:29 Admit Provider: Raheel Gongora Attending Provider: Raheel Gongora Primary Care Provider: Gissell Davis ED Provider: Sujit Bowen Hospital Course Hospital Course: Fay was admitted from the operating room after presenting to the emergency department with an infected left total knee. She tolerated her procedure well. On postop day #1 her Mukherjee catheter was removed she is voiding spontaneously. Her knee cultures began to grow MSSA and she was transitioned from vancomycin to cefazolin. She had one bottle of blood cultures positive for group A strep. These blood cultures were repeated and were negative. A hospitalist consult was requested and performed. There are no other areas of concern identified except for some questionable bibasilar atelectasis or pneumonia which did not seem to worsen during her stay. Her pain was well controlled and she was without systemic findings. A PICC line was placed. Outpatient infusion of ceftriaxone 2 g was arranged and she was deemed safe for discharge home. Home Meds and New Rx's Prescriptions: New aspirin 81 mg Tablet,Delayed Release (Dr/Ec) 81 mg PO BID Qty: 60 RF: 0 rifampin [Rifadin] 300 mg Capsule 300 mg PO BID Qty: 80 RF: 0 ceftriaxone in dextrose,iso-os 2 gram/50 mL piggyback 2 gm IV DAILY 42 Days Qty: 2100 RF: 0 acetaminophen 500 mg tablet 1,000 mg PO Q8H PRN (Reason: pain) Qty: 90 RF: 3 oxycodone 5 mg tablet 5 mg PO Q4H Qty: 18 RF: 0 Continued alprazolam [Xanax] 0.5 mg tablet 0.5 mg PO BID PRN (Reason: anxiety) Qty: 10 RF: 0 levalbuterol tartrate [Xopenex HFA] 45 mcg/actuation HFA aerosol inhaler 2 puff Inhalation Q4H PRN Qty: 4 RF: 4 cholecalciferol (vitamin D3) [Vitamin D3] 2,000 UNIT capsule 2,000 unit PO DAILY RF: 0 triamcinolone acetonide 15 GM cream 1 gm Topical daily prn Qty: 1 RF: 3 Lactase Fast Acting 9,000 UNIT tablet 9,000 unit PO AC & HS Qty: 90 RF: 0 magnesium oxide 500 MG capsule 500 mg PO DAILY Qty: 1 RF: 0 albuterol sulfate 2.5 MG/3 ML solution for nebulization 2.5 mg Inhalation Q6H PRN Qty: 360 RF: 4 sucralfate [Carafate] 1 GM tablet 1 g PO BID Qty: 180 RF: 3 metformin 1,000 MG tablet 1,000 mg PO BID Qty: 180 RF: 3 fluoxetine 40 MG capsule 40 mg PO DAILY Qty: 90 RF: 3 cetirizine 10 MG tablet 10 mg PO DAILY Qty: 90 RF: 4 montelukast [Singulair] 10 MG tablet 10 mg PO HS Qty: 90 RF: 3 fluoxetine 20 MG capsule 20 mg PO DAILY Qty: 90 RF: 3 gabapentin 300 MG capsule 1 - 2 tab-cap PO TID Qty: 270 RF: 3 Advair Diskus 1 EACH blister with device 1 puff Inhalation BID Qty: 1 RF: 6 esomeprazole magnesium [Nexium] 40 mg capsule,delayed release(DR/EC) 40 mg PO DAILY Qty: 90 RF: 3 meloxicam 7.5 mg tablet 7.5 mg PO BID Qty: 60 RF: 0 Discontinued oxycodone 5 mg tablet 5 mg PO HS MDD 5mg Qty: 7 RF: 0 acetaminophen [Mapap Extra Strength] 500 mg tablet 1,000 mg PO TID PRN PRN (Reason: pain) Qty: 90 RF: 6 nystatin 15 GM cream 1 gm Topical BID Qty: 15 RF: 1 No Action blood-glucose meter [OneTouch UltraMini] 1 EACH kit 1 ea Miscellaneous DAILY Qty: 1 RF: 0 lancets [OneTouch UltraSoft Lancets] 1 EACH misc 1 ea Miscellaneous DAILY Qty: 100 RF: 3 OneTouch Ultra Test strip 1 ea Miscellaneous DAILY Qty: 100 RF: 4 Discharge Instructions Additional Instructions: Dr. Gongora?s Discharge Instructions Activity: The most important activity is to walk. You should try to take short walks a few times a day. It is important that when resting you work on keeping the knee straight. Avoid putting a pillow behind the knee as this will encourage flexion. Work on range of motion exercises as provided by Physical Therapy. - Start outpatient physical therapy in 2 weeks. - You should wear the LINA hose on both legs for 4 weeks. Dressing: Keep the surgical dressing in place for at least one week. After the first week it may be removed and replace with light gauze and tape or nothing. It may get wet after 3 days but avoid soaking the dressing. If it gets wet, jus t lightly pat dry. Medications: - You should take Tylenol and anti-inflammatory (Meloxicam) as your primary pain control medications - You have been prescribed a stronger pain medication (Dilaudid) for breakthrough pain, take as needed as prescribed. - You will be taking Aspirin 81mg twice a day for DVT prevention unless instructed otherwise. - If you have constipation you should take Colace or Miralax (both [id number]). It takes most people 3-4 days to have a bowel movement. ANTIBIOTICS: You will take Rifampin 300mg twice a day. This helps fight the bacteria from sticking to the metal of the implants of your knee. This will turn your secretions orange (urine, sweat, tears). You will also have daily infusions of Ceftriaxone at [facility] Infusion suite. You may also need to take a probiotic or increase intake of yogurt while you are on these medications. Follow-up: 2 weeks with blood work. Referrals: Raheel Gongora MD [ [facility] STAFF PHYSICIAN] - Activity:: Activity as Tolerated Equipment/Supplies:: Crutches Diet:: Carb Counting DS: Data Vitals/I&O Vitals and I&O: Vital Signs Temperature 36.6 C 04/26/18 03:25 Temperature Source Tympanic 04/26/18 03:25 Pulse 72 04/26/18 03:25 Pulse Rhythm Regular 04/25/18 20:35 Respiratory Rate 16 04/26/18 03:25 Respiratory Effort Non-Labored 04/25/18 20:35 Respiratory Depth Normal 04/25/18 20:35 Respiratory Pattern Normal 04/25/18 20:35 Blood Pressure 128/78 04/26/18 03:25 Blood Pressure Position Sitting 04/22/18 08:55 Pulse Oximetry 97 04/26/18 03:25 Respiratory End-tidal CO2 33 04/22/18 12:55 Oxygen Delivery Method Room Air 04/26/18 03:25 Oxygen Flow Rate 0 04/26/18 03:25 Pain Level 7 04/26/18 05:32 Comment 04/26/18 03:25 Intake & Output 04/25/18 04/25/18 04/26/18 11:59 23:59 11:59 Intake Total 490 / 1270 780 / 1270 270 / 270 Output Total 1800 / 2450 650 / 2450 600 / 600 Balance -1310 / -1180 130 / -1180 -330 / -330 Intake: IV 100 / 300 200 / 300 120 / 120 Oral 390 / 970 580 / 970 150 / 150 Output: Urine 1800 / 2450 650 / 2450 600 / 600 Other: Urine Color Yellow [place] Yellow Urine Appearance Clear Clear Clear Urine Odor Normal Normal Stool Occult Blood Negative Stool Size Copious Stool Characteristics Soft Liquid Voiding Methods Toilet Toilet Toilet Labs on day of discharge: Labs from last 24 hours 04/26/18 04/26/18 04/25/18 05:35 05:35 07:28 WBC Pending RBC Pending Hgb Pending Hct Pending MCV Pending MCH Pending MCHC Pending RDW Pending Plt Count Pending MPV Pending Immature Gran % Pending Neutrophils % Pending Lymphocytes % Pending Monocytes % Pending Eosinophils % Pending Basophils % Pending Absolute Neutrophils Pending Absolute Lymphocytes Pending Absolute Monocytes Pending Absolute Eosinophils Pending Absolute Basophils Pending Sodium Pending 137 Potassium Pending 3.6 Chloride Pending 101 Carbon Dioxide Pending 26.6 Anion Gap Pending 9.4 BUN Pending 13 D Creatinine Pending 0.80 Estimated GFR/1.73 m2 Pending >= 60.00 Glucose Pending 126 H Calcium Pending 9.0 Magnesium Pending 1.4 L C-Reactive Protein 6.45 H 04/25/18 07:28 WBC 8.53 RBC 3.40 L Hgb 9.3 L Hct 30.0 L MCV 88.2 MCH 27.4 MCHC 31.0 L RDW 16.2 H Plt Count 311 MPV 10.2 Immature Gran % Neutrophils % Lymphocytes % Monocytes % Eosinophils % Basophils % Absolute Neutrophils Absolute Lymphocytes Absolute Monocytes Absolute Eosinophils Absolute Basophils Sodium Potassium Chloride Carbon Dioxide Anion Gap BUN Creatinine Estimated GFR/1.73 m2 Glucose Calcium Magnesium C-Reactive Protein Preliminary micro results at discharge 04/24/18 11:20 Blood Culture - Preliminary Blood NO GROWTH 24 HOURS 04/24/18 11:10 Blood Culture - Preliminary Blood NO GROWTH 24 HOURS 04/22/18 09:15 Blood Culture - Preliminary Blood NO GROWTH 72 HOURS 04/24/18 12:50 Urine Culture - Preliminary Urine - Clean Catch 04/22/18 09:10 Body Fluid Culture - Preliminary Synovial - Left Knee Staphylococcus Aureus 04/22/18 11:15 Surgical Culture - Preliminary Knee - Left Staphylococcus Aureus 04/22/18 11:15 Anaerobic Culture - Preliminary Knee - Left 04/22/18 09:25 Blood Culture - Preliminary Blood Group A Streptococcus [facility] Medical History Depression with anxiety (Acute) Abdominal discomfort, epigastric (Acute) Acute blood loss anemia (Acute) Asthma (Chronic) Hyperlipidemia (Chronic) Diabetes (Chronic 06/07/16) Infection of total left knee replacement (Acute 09/13/17) Migraine (Chronic 03/01/12) Obesity (Chronic) Organic sleep apnea, unspecified (Chronic) Candidal skin infection GERD (gastroesophageal reflux disease) Gastroparesis Incisional hernia Surgical History 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 Grandfather Heart disease Grandfather Diabetes Heart disease Grandmother Diabetes Heart disease Grandmother Heart disease Hyperlipidemia Asthma Social History Smoking and Tabacco status: Never
--- NOTE | 2018-04-26 06:10 | DI.RAD_ITS ---
SYMPTOM/DIAGNOSIS: ? PNEUMONIA PORTABLE AP CHEST: Comparison is made with 04/24/18. Heart size and pulmonary vasculature are within normal limits. There is a new left PICC line. The tip is in good position in the right atrium. The lungs are clear. No effusions or pneumothoraces are identified. The bones are unremarkable. IMPRESSION: No acute pulmonary process.
--- NOTE | 2018-04-26 06:46 | DI.VRAD_ITS ---
EXAM: XR Chest, 1 View EXAM DATE/TIME: 04/26/2018 12:00 AM CLINICAL HISTORY: 47 years old, female; Signs and symptoms; Other: Questionable pneumonia TECHNIQUE: XR of the chest, 1 view. COMPARISON: CR XR PORTABLE CHEST AP 04/24/2018 11:47 AM FINDINGS: Tubes, catheters and devices: PICC line tip is right atrial. Lungs: Unremarkable. No consolidation. Pleural space: Unremarkable. No evidence of pneumothorax. Heart/Mediastinum: Unremarkable. Heart size within normal limits for technique. Bones/joints: Unremarkable. IMPRESSION: No acute findings. Dictated and Authenticated by: Keyur Quinonez MD. Ordering:HENRY Alva MD
[2018-04-26 07:13] LABS: Abs Immature Grans 0.07 k/cumm (0.0-0.09); Absolute Basophil Count 0.01 k/cumm (0.0-0.2); Absolute Eosinophil Count 0.24 k/cumm (0.0-0.7); Absolute Lymphocyte Count 2.09 k/cumm (1.2-3.4); Absolute Monocyte Count 0.91 k/cumm (0.11-0.7); Absolute Neutrophil Count 7.12 k/cumm (1.2-6.7); Basophils % 0.1; Eosinophils % 2.3; HCT 31.4 % (36.0-46.0); HGB 9.8 g/dL (12.0-15.5); Immature Grans % 0.7; Mean Corp. HGB Concentration 31.2 g/dL (32.0-36.0); Mean Corpuscular Hemoglobin 27.4 pg (27.0-33.0); Mean Corpuscular Volume 87.7 fL (80-95); Mean Platelet Volume 10.1 fL (8.0-11.0); Monocytes % 8.7; Neutrophils % 68.2; Platelet Count 381 x1000/uL (130-400); RBC 3.58 m/cumm (4.00-5.20); RBC Distribution Width 16.1 % (11.7-14.6); White Blood Cell Count 10.44 k/cumm (4.4-10.8)
[2018-04-26] MEDS: Levalbuterol HFA 15 GM INH 2 PUFF IH (07:29)
[2018-04-26] MEDS: Budesonide/Formoterol 160/4.5 6 GM 60 PUFF INH IH (07:30)
[2018-04-26 07:31] LABS: BUN 12 mg/dL (7-18); CREATININE 0.76 mg/dL (0.55-1.02); Calcium 9.3 mg/dL (8.5-10.1); Chloride 101 mmol/L (98-107); Glucose 138 mg/dL (70-100); Magnesium 1.7 mg/dL (1.8-2.4); Potassium 3.9 mmol/L (3.5-5.1); Sodium 138 mmol/L (136-145)
[2018-04-26 07:40] VITALS: BP 149/78; PULSE 84; RESP 16; TEMP 37; O2SAT 98
[2018-04-26] MEDS: Esomeprazole 40 MG CAPCR PO (08:21)
[2018-04-26] MEDS: FLUoxetine 20 MG CAP 60 MG PO (08:21)
[2018-04-26] MEDS: Gabapentin 300 MG CAP PO (08:21)
[2018-04-26] MEDS: Magnesium Oxide 400 MG TAB PO (08:21)
[2018-04-26] MEDS: Aspirin E.C. 81 MG TABEC PO (08:22)
[2018-04-26] MEDS: Cetirizine 10 MG TAB PO (08:22)
[2018-04-26] MEDS: RIFAMPIN 300 MG CAP PO (08:23)
[2018-04-26] MEDS: Magnesium Chloride 64 MG TABCR PO (08:23)
[2018-04-26] MEDS: Acetaminophen 500 MG TAB 1000 MG PO (08:23)
[2018-04-26] MEDS: metFORMIN 500 MG TAB 1000 MG PO (08:24)
[2018-04-26] MEDS: Sucralfate 1 GM TAB PO (08:24)
[2018-04-26] MEDS: Normal Saline 500 ML IV (08:59)
--- NOTE | 2018-04-26 10:36 | PDOC.CMDIS ---
- If Service Date Differs Date of service: 04/26/18 Time of Service: 10:36 LACE Index Scoring Tool - Questions: Length of Stay (in days): 4 - 6 Acuity (Admit via E.D.?): Yes E.D. Visits: 1 - Answers: Total Score: 8 Risk of Readmission: Low Risk Care Management Discharge Reason for Hospitalization: (L) Knee pain and swelling Discharge Plan: Barbara will return home today. She will come to the infusion room for antibiotics through a PICC. Fay will F/U with Dr. Gongora and plan of care as prescribed. her Rishi will transport her home today. Patient/Family Education Needs: Review DC instructions, any limitations, and ongoing DC planning discussion. discuss 'Ask Me Three' Services Needed at Discharge: Infusion Therapy (IV antibiotics)
--- NOTE | 2018-04-27 11:42 | PT.INDS ---
Date of service: 04/26/18 Time of Service: 11:48 PT Notes Inpatient Physical Therapy Discharge Summary Date: 04/27/2018 Dates of Service: 04/22/18 through 04/25/18 The following record is a summary of care the patient received while under physical therapy care. 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 ROM: No formal joint range of motion assessment was done but per STAGECRAFT TEACHER documentation patient has available active assistive range of motion for left knee flexion of 71 degrees. STRENGTH: L UE: WFL R UE: WFL L LE: Hip flexors 3-/5. Knee extensors 3-/5. Knee flexors 3-/5. R LE: WFL BED MOBILITY/TRANSFERS: Supine-sit supervision Sit-supine supervision Sit-stand SBA, with FWW Stand-sit SBA, with FWW Bed-Chair SBA, with FWW Chair-bed SBA, with FWW GAIT: On 04/25/18 patient tolerated 120 feet of level surface ambulation using FWW with pain reported on L knee. Also competed 3-4 steps up/down while holding onto rail with SBA using step to pattern. BALANCE: Static Sitting: Good Dynamic Sitting: Good Static Standing: Good Dynamic Standing: Fair ASSESSMENT: Patient is a 47 year old female referred to physical therapy services with the diagnosis of status post left total knee arthroplasty washout. She received skilled PT interventions to address underlying impairments and functional deficits in anticipation of discharge to home. GOALS: Independent with bed mobility NOT MET Ambulating with a walker weight bearing as tolerated left lower extremity for greater than 300 feet NOT MET DISCHARGE PLAN/RECOMMENDATIONS: Per case management notation, Barbara will return home today. She will come to the infusion room for antibiotics through a PICC. Fay will F/U with Dr. Gongora and plan of care as prescribed. her Rishi will transport her home today. Sowmya Reynoso, PT, DPT, CLT [facility]
--- NOTE | 2018-04-27 11:50 | INDS_ITS ---
Date of service: 04/26/18 Time of Service: 11:48 PT Notes Inpatient Physical Therapy Discharge Summary Date: 04/27/2018 Dates of Service: 04/22/18 through 04/25/18 The following record is a summary of care the patient received while under physical therapy care. 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 ROM: No formal joint range of motion assessment was done but per CAD DRAFTSMAN documentation patient has available active assistive range of motion for left knee flexion of 71 degrees. STRENGTH: L UE: WFL R UE: WFL L LE: Hip flexors 3-/5. Knee extensors 3-/5. Knee flexors 3-/5. R LE: WFL BED MOBILITY/TRANSFERS: Supine-sit supervision Sit-supine supervision Sit-stand SBA, with FWW Stand-sit SBA, with FWW Bed-Chair SBA, with FWW Chair-bed SBA, with FWW GAIT: On 04/25/18 patient tolerated 120 feet of level surface ambulation using FWW with pain reported on L knee. Also competed 3-4 steps up/down while holding onto rail with SBA using step to pattern. BALANCE: Static Sitting: Good Dynamic Sitting: Good Static Standing: Good Dynamic Standing: Fair ASSESSMENT: Patient is a 47 year old female referred to physical therapy services with the diagnosis of status post left total knee arthroplasty washout. She received skilled PT interventions to address underlying impairments and functional deficits in anticipation of discharge to home. GOALS: Independent with bed mobility NOT MET Ambulating with a walker weight bearing as tolerated left lower extremity for greater than 300 feet NOT MET DISCHARGE PLAN/RECOMMENDATIONS: Per case management notation, Barbara will return home today. She will come to the infusion room for antibiotics through a PICC. Fay will F/U with Dr. Gongora and plan of care as prescribed. her Rishi will transport her home today. Sowmya Reynoso, PT, DPT, CLT [facility]
== END 2018-04-26 09:50 | disposition home or self-care (01) | DRG 486 ==
LOC: ER 09:48 → MS 04-23 10:23 → ER 04-23 11:31 → DSU 04-23 11:32 → ER 04-23 11:32 → MS 04-23 11:33
PROVIDERS: Internal Medicine; Admitting Provider Student in an Organized Health Care Education/Training Program; Emergency Provider Student in an Organized Health Care Education/Training Program; Visit Provider Student in an Organized Health Care Education/Training Program
PROC: 0SPD0EZ Removal of Articulating Spacer from Left Knee Joint, Open Approach (ICD-10-PCS; CPT 27486; principal; 2018-04-22 09:40)
DX: T84.54XA Infection and inflammatory reaction due to internal left knee prosthesis, initial encounter (principal); M00.062 Staphylococcal arthritis, left knee; D62 Acute posthemorrhagic anemia; Z96.652 Presence of left artificial knee joint; B95.61 Methicillin susceptible Staphylococcus aureus infection as the cause of diseases classified elsewhere; J20.9 Acute bronchitis, unspecified; E11.9 Type 2 diabetes mellitus without complications; E78.5 Hyperlipidemia, unspecified; K21.9 Gastro-esophageal reflux disease without esophagitis; Y83.1 Surgical operation with implant of artificial internal device as the cause of abnormal reaction of the patient, or of later complication, without mention of misadventure at the time of the procedure; F41.8 Other specified anxiety disorders; Z79.84 Long term (current) use of oral hypoglycemic drugs
CPT/HCPCS: 27486; 20610; 36410; 36415; 36430; 36569; 80048; 80053; 81025; 85027; 85652; 86850; 86900; 86901; 86920; 87040; 87077; 94640; 97110; 97162; 97530; 99223; 99232; 99253; 99254; 99285; NC; 71045; 81003; 81015; 83036; 83735; 85025; 86140; 87070; 87075; 87086; 87186; 87205; 89051; 89060; 99222; 99284; E0114; J0690; J1100; J1885; J2250; J2370; J2405; J3010; J3370; J3475; P9016

== ENCOUNTER 2018-05-20 01:12 | Outpatient (RCR) | payer MEDICARE, SELFPAY ==
[2018-04-27] MEDS: Normal Saline Flush 10 ML SYR IVP (10:01)
[2018-04-30] MEDS: Normal Saline Flush 10 ML SYR IVP (13:10)
[2018-05-01] MEDS: Normal Saline Flush 10 ML SYR IVP ×2 (13:10→13:37)
[2018-05-02] MEDS: Normal Saline Flush 10 ML SYR IVP (14:12)
[2018-05-03] MEDS: Normal Saline Flush 10 ML SYR IVP (13:00)
[2018-05-04] MEDS: Normal Saline Flush 10 ML SYR IVP (12:59)
[2018-05-05] MEDS: Normal Saline Flush 10 ML SYR IVP (13:23)
[2018-05-06] MEDS: Normal Saline Flush 10 ML SYR IVP (13:09)
[2018-05-07] MEDS: Normal Saline Flush 10 ML SYR IVP (12:49)
[2018-05-08] MEDS: Normal Saline Flush 10 ML SYR IVP (13:01)
[2018-05-08 13:36] LABS: Abs Immature Grans 0.04 k/cumm (0.0-0.09); Absolute Basophil Count 0.01 k/cumm (0.0-0.2); Absolute Eosinophil Count 0.28 k/cumm (0.0-0.7); Absolute Lymphocyte Count 2.92 k/cumm (1.2-3.4); Absolute Monocyte Count 0.85 k/cumm (0.11-0.7); Basophils % 0.1; Eosinophils % 2.9; HCT 32.4 % (36.0-46.0); HGB 9.8 g/dL (12.0-15.5); Immature Grans % 0.4; Lymphocytes % 30.1; Mean Corp. HGB Concentration 30.2 g/dL (32.0-36.0); Mean Corpuscular Hemoglobin 27.2 pg (27.0-33.0); Monocytes % 8.8; Neutrophils % 57.7; Platelet Count 463 x1000/uL (130-400)
[2018-05-08 13:48] LABS: ALT 15 U/L (12-78); AST 13 U/L (15-37); Alkaline Phosphatase 71 U/L (46-116); Anion Gap 11.7 mmol/L (3-11); BUN 8 mg/dL (7-18); Bilirubin, Total 0.3 mg/dL (0.2-1.0); C-Reactive Protein 0.84 mg/dL (0.0-0.3); CO2 25.3 mmol/L (21.0-32.0); CREATININE 0.83 mg/dL (0.55-1.02); Calcium 9.2 mg/dL (8.5-10.1); Chloride 102 mmol/L (98-107); Glucose 151 mg/dL (70-100); Potassium 3.7 mmol/L (3.5-5.1); Sodium 139 mmol/L (136-145); Total Protein 7.8 g/dL (6.4-8.2)
[2018-05-09] MEDS: Normal Saline Flush 10 ML SYR IVP (12:56)
[2018-05-10] MEDS: Normal Saline Flush 10 ML SYR IVP (12:45)
[2018-05-11] MEDS: Normal Saline Flush 10 ML SYR IVP (13:04)
[2018-05-12] MEDS: Normal Saline Flush 10 ML SYR IVP (12:54)
[2018-05-13] MEDS: Normal Saline Flush 10 ML SYR IVP (12:49)
[2018-05-14] MEDS: Normal Saline Flush 10 ML SYR IVP (13:00)
[2018-05-15] MEDS: Normal Saline Flush 10 ML SYR IVP (12:55)
[2018-05-16] MEDS: Normal Saline Flush 10 ML SYR IVP (12:49)
[2018-05-17] MEDS: Normal Saline Flush 10 ML SYR IVP (12:11)
[2018-05-18] MEDS: Normal Saline Flush 10 ML SYR IVP (12:43)
[2018-05-19] MEDS: Normal Saline Flush 10 ML SYR IVP (12:51)
[2018-05-20] MEDS: Normal Saline Flush 10 ML SYR IVP (12:49)
[2018-05-20] MEDS: Bacitracin 1 PACKET (13:00)
== END 2018-05-20 23:59 | disposition home or self-care (01) ==
LOC: INF 01:12
PROVIDERS: Visit Provider Student in an Organized Health Care Education/Training Program
DX: T84.54XA Infection and inflammatory reaction due to internal left knee prosthesis, initial encounter (principal); Z96.652 Presence of left artificial knee joint; Z45.2 Encounter for adjustment and management of vascular access device
CPT/HCPCS: 36592; 80053; 96365; 85025; 86140

== ENCOUNTER 2018-06-05 01:21 | Outpatient (RCR) | payer MEDICARE, SELFPAY ==
[2018-05-21] MEDS: cefTRIAXone 2 GM/50 ML BAG IVPB (13:05)
[2018-05-21] MEDS: Normal Saline Flush 10 ML SYR IVP (13:05)
[2018-05-22] MEDS: Normal Saline Flush 10 ML SYR IVP (12:36)
[2018-05-22] MEDS: cefTRIAXone 2 GM/50 ML BAG IVPB (12:36)
[2018-05-23] MEDS: cefTRIAXone 2 GM/50 ML BAG IVPB (12:30)
[2018-05-23] MEDS: Normal Saline Flush 10 ML SYR IVP (12:30)
[2018-05-24] MEDS: cefTRIAXone 2 GM/50 ML BAG IVPB (12:51)
[2018-05-24] MEDS: Normal Saline Flush 10 ML SYR IVP (12:51)
[2018-05-25] MEDS: Normal Saline Flush 10 ML SYR IVP (12:46)
[2018-05-25] MEDS: cefTRIAXone 2 GM/50 ML BAG IVPB (12:46)
[2018-05-26] MEDS: cefTRIAXone 2 GM/50 ML BAG IVPB (12:56)
[2018-05-26] MEDS: Normal Saline Flush 10 ML SYR IVP (12:57)
[2018-05-27] MEDS: cefTRIAXone 2 GM/50 ML BAG IVPB (12:59)
[2018-05-27] MEDS: Normal Saline Flush 10 ML SYR IVP (12:59)
[2018-05-28] MEDS: Normal Saline Flush 10 ML SYR IVP (12:45)
[2018-05-28] MEDS: cefTRIAXone 2 GM/50 ML BAG IVPB (12:50)
[2018-05-29] MEDS: cefTRIAXone 2 GM/50 ML BAG IVPB (12:40)
[2018-05-29] MEDS: Normal Saline Flush 10 ML SYR IVP (12:40)
[2018-05-30] MEDS: cefTRIAXone 2 GM/50 ML BAG IVPB (12:20)
[2018-05-30] MEDS: Normal Saline Flush 10 ML SYR IVP (12:21)
[2018-05-31] MEDS: cefTRIAXone 2 GM/50 ML BAG IVPB (12:50)
[2018-05-31] MEDS: Normal Saline Flush 10 ML SYR IVP (12:54)
[2018-06-01] MEDS: cefTRIAXone 2 GM/50 ML BAG IVPB (12:40)
[2018-06-01] MEDS: Normal Saline Flush 10 ML SYR IVP (12:43)
[2018-06-02] MEDS: cefTRIAXone 2 GM/50 ML BAG IVPB (12:44)
[2018-06-02] MEDS: Normal Saline Flush 10 ML SYR IVP (12:44)
[2018-06-03] MEDS: cefTRIAXone 2 GM/50 ML BAG IVPB (12:47)
[2018-06-03] MEDS: Normal Saline Flush 10 ML SYR IVP (12:47)
[2018-06-04] MEDS: cefTRIAXone 2 GM/50 ML BAG IVPB (12:35)
[2018-06-04] MEDS: Normal Saline Flush 10 ML SYR IVP (12:44)
[2018-06-05] MEDS: Normal Saline Flush 10 ML SYR IVP (12:30)
[2018-06-05] MEDS: cefTRIAXone 2 GM/50 ML BAG IVPB (12:30)
[2018-06-05 12:52] LABS: HCT 32.9 % (36.0-46.0); HGB 10.2 g/dL (12.0-15.5); Mean Corpuscular Hemoglobin 27.2 pg (27.0-33.0); Mean Corpuscular Volume 87.7 fL (80-95); Mean Platelet Volume 9.6 fL (8.0-11.0); Platelet Count 360 x1000/uL (130-400); RBC 3.75 m/cumm (4.00-5.20); RBC Distribution Width 15.2 % (11.7-14.6); White Blood Cell Count 9.81 k/cumm (4.4-10.8)
[2018-06-05 13:04] LABS: ALT 19 U/L (12-78); AST 11 U/L (15-37); Albumin 3.4 g/dL (3.4-5.0); Alkaline Phosphatase 64 U/L (46-116); Anion Gap 12.6 mmol/L (3-11); BUN 13 mg/dL (7-18); Bilirubin, Total 0.3 mg/dL (0.2-1.0); C-Reactive Protein 0.51 mg/dL (0.0-0.3); CO2 24.4 mmol/L (21.0-32.0); CREATININE 0.75 mg/dL (0.55-1.02); Calcium 8.8 mg/dL (8.5-10.1); Chloride 101 mmol/L (98-107); Glucose 124 mg/dL (70-100); Potassium 3.7 mmol/L (3.5-5.1); Sodium 138 mmol/L (136-145); Total Protein 7.9 g/dL (6.4-8.2)
== END 2018-06-19 23:59 | disposition home or self-care (01) ==
LOC: INF 01:21
PROVIDERS: Visit Provider Student in an Organized Health Care Education/Training Program
DX: T84.54XA Infection and inflammatory reaction due to internal left knee prosthesis, initial encounter (principal); Z96.652 Presence of left artificial knee joint; Z45.2 Encounter for adjustment and management of vascular access device
CPT/HCPCS: 36415; 80053; 85027; 96365; 86140

== ENCOUNTER → 2018-06-06 09:09 | Outpatient (BNVA) | payer MEDICARE, SELFPAY | PROVIDERS: Visit Provider Student in an Organized Health Care Education/Training Program | DX: Z96.652 Presence of left artificial knee joint (principal); Z47.1 Aftercare following joint replacement surgery; T84.54XA Infection and inflammatory reaction due to internal left knee prosthesis, initial encounter ==

== ENCOUNTER → 2018-07-04 10:40 | Outpatient (BNVA) | payer MEDICARE, SELFPAY | PROVIDERS: Visit Provider Student in an Organized Health Care Education/Training Program | DX: Z96.652 Presence of left artificial knee joint; T84.54XA Infection and inflammatory reaction due to internal left knee prosthesis, initial encounter; M25.562 Pain in left knee | CPT/HCPCS: 99213 ==

== ENCOUNTER 2018-07-04 11:40 | Outpatient (CLI) | payer MEDICARE, SELFPAY ==
[2018-07-04 12:13] LABS: HCT 34.3 % (36.0-46.0); HGB 10.6 g/dL (12.0-15.5); Mean Corp. HGB Concentration 30.9 g/dL (32.0-36.0); Mean Corpuscular Hemoglobin 26.2 pg (27.0-33.0); Mean Corpuscular Volume 84.9 fL (80-95); Mean Platelet Volume 9.3 fL (8.0-11.0); Platelet Count 348 x1000/uL (130-400); RBC 4.04 m/cumm (4.00-5.20); White Blood Cell Count 6.31 k/cumm (4.4-10.8)
[2018-07-04 12:49] LABS: ALT 21 U/L (12-78); AST 10 U/L (15-37); Albumin 3.4 g/dL (3.4-5.0); Alkaline Phosphatase 63 U/L (46-116); Anion Gap 10.8 mmol/L (3-11); BUN 15 mg/dL (7-18); Bilirubin, Total 0.2 mg/dL (0.2-1.0); C-Reactive Protein 0.99 mg/dL (0.0-0.3); CO2 25.2 mmol/L (21.0-32.0); CREATININE 0.94 mg/dL (0.55-1.02); Calcium 9.5 mg/dL (8.5-10.1); Chloride 102 mmol/L (98-107); Glucose 177 mg/dL (70-100); Potassium 4.1 mmol/L (3.5-5.1); Sodium 138 mmol/L (136-145); Total Protein 7.4 g/dL (6.4-8.2)
== END 2018-07-04 12:00 ==
PROVIDERS: Visit Provider Student in an Organized Health Care Education/Training Program
DX: T84.54XA Infection and inflammatory reaction due to internal left knee prosthesis, initial encounter (principal); Z96.652 Presence of left artificial knee joint
CPT/HCPCS: 36415; 80053; 85027; 99213; 86140

== ENCOUNTER 2018-07-09 13:28 | Outpatient (CLI) | payer MEDICARE, SELFPAY ==
--- NOTE | 2018-07-09 13:20 | DI.RAD_ITS ---
SYMPTOM/DIAGNOSIS: PAIN, S/P INFECTED REVISION LT TKA LEFT KNEE: Comparison is made with 04/16/18. Long stem knee prosthesis is again noted. There is some soft tissue swelling anteriorly. No abnormal bony lucencies are seen. There has been no change in the alignment of the patella.
== END 2018-07-09 13:48 ==
PROVIDERS: Visit Provider Student in an Organized Health Care Education/Training Program
DX: M25.562 Pain in left knee (principal); M79.89 Other specified soft tissue disorders; Z96.652 Presence of left artificial knee joint; T84.54XA Infection and inflammatory reaction due to internal left knee prosthesis, initial encounter; Z47.1 Aftercare following joint replacement surgery
CPT/HCPCS: 20610; 99213; 73560

== ENCOUNTER 2018-07-24 01:58 | Outpatient (CLI) | payer MEDICARE, SELFPAY ==
[2018-07-24 10:03] LABS: Hemoglobin A1C 6.7 % (4.5-6.2)
== END 2018-07-24 02:18 ==
DX: E11.9 Type 2 diabetes mellitus without complications (principal); G43.909 Migraine, unspecified, not intractable, without status migrainosus
CPT/HCPCS: 36415; 83036; 83735

== ENCOUNTER → 2018-08-06 10:13 | Outpatient (BNVA) | payer MEDICARE, SELFPAY | PROVIDERS: Visit Provider Student in an Organized Health Care Education/Training Program | DX: T84.54XA Infection and inflammatory reaction due to internal left knee prosthesis, initial encounter (principal); Z96.652 Presence of left artificial knee joint; R13.10 Dysphagia, unspecified; R10.11 Right upper quadrant pain; E11.9 Type 2 diabetes mellitus without complications | CPT/HCPCS: 20610; 99213 ==

== ENCOUNTER → 2018-08-06 11:00 | Outpatient (BNVA) | payer MEDICARE, SELFPAY | PROVIDERS: Visit Provider Surgery | DX: R13.10 Dysphagia, unspecified (principal); R10.11 Right upper quadrant pain; E11.9 Type 2 diabetes mellitus without complications | CPT/HCPCS: 99213 ==

== ENCOUNTER 2018-08-08 00:36 | Outpatient (CLI) | payer MEDICARE, SELFPAY ==
--- NOTE | 2018-08-08 08:25 | DI.CT_ITS ---
SYMPTOMS/DIAGNOSIS: PAIN, HX OF MULTIPLE VENTRAL HERNIA REPAIRS, RUQ PAIN, R10.[address]: The study was carried out according to the usual protocol with an intravenous administration of 100 cc's of Omnipaque 350 and oral ingestion of dilute Omnipaque. The examination is compared with a prior study of 01/29/16. Again note is made of multiple midline or paramedian ventral hernias. The most inferior of which contains loops of small bowel. There is no evidence of incarceration or obstruction. Again noted is a small axial hiatus hernia. The liver is normal. The patient is status post cholecystectomy. The pancreas and spleen are normal. There is mild left hydronephrosis and a 5 mm calculus is noted in the proximal right ureter at the ureteropelvic junction. Also there is an apparent nonobstructing tiny calculus in the superior right ureteropelvic junction and a tiny calcification is noted in the lower pole of the right kidney. There is no evidence of bowel obstruction. The appendix is normal. The bladder is unremarkable. The reproductive organs as visualized are unremarkable. There is no evidence of an aortic aneurysm. There is no evidence of free air or free fluid in the intraperitoneal space. Multiple ventral hernias are again identified with a number of small bowel loops in the most inferior hernia. There is no evidence of incarceration or obstruction. Note is made of small calculi in the proximal portion of each ureter at the ureteropelvic junction where there are resultant mild left hydronephrosis. Also note is made of tiny calculi in the lower pole of each kidney. SUMMARY: Multiple ventral hernias are demonstrated and are little changed when compared with the previous examination. There is bilateral nephrolithiasis and small calculi are identified in the proximal ureter bilaterally. On the left side there is resultant moderate hydronephrosis.
[2018-08-08] MEDS: Omnipaque 350 MG/ML 100 ML BTL IJ (09:59)
[2018-08-08] MEDS: Breeza Beverage 473 ML BTL PO (10:01)
[2018-08-08] MEDS: Omnipaque 350 MG/ML 50 ML BTL PO (10:02)
== END 2018-08-08 00:56 ==
PROVIDERS: Visit Provider Surgery
DX: R10.11 Right upper quadrant pain (principal); K43.9 Ventral hernia without obstruction or gangrene; N20.0 Calculus of kidney; N13.30 Unspecified hydronephrosis
CPT/HCPCS: 74177; J3490; Q9967

== ENCOUNTER 2018-08-14 01:42 | Outpatient (CLI) | payer MEDICARE, SELFPAY ==
[2018-08-14 11:25] LABS: HCT 37.4 % (36.0-46.0); HGB 12.1 g/dL (12.0-15.5); Mean Corp. HGB Concentration 32.4 g/dL (32.0-36.0); Mean Corpuscular Hemoglobin 28.4 pg (27.0-33.0); Mean Corpuscular Volume 87.8 fL (80-95); Mean Platelet Volume 9.8 fL (8.0-11.0); Platelet Count 310 x1000/uL (130-400); RBC 4.26 m/cumm (4.00-5.20); RBC Distribution Width 19.3 % (11.7-14.6); White Blood Cell Count 6.98 k/cumm (4.4-10.8)
[2018-08-14 12:14] LABS: C-Reactive Protein 0.32 mg/dL (0.0-0.3)
== END 2018-08-14 02:02 ==
PROVIDERS: Visit Provider Student in an Organized Health Care Education/Training Program
DX: T84.54XA Infection and inflammatory reaction due to internal left knee prosthesis, initial encounter (principal); Z96.652 Presence of left artificial knee joint
CPT/HCPCS: 36415; 85027; 86140

== ENCOUNTER 2018-08-17 08:06 | Day surgery (SDC) | payer MEDICARE, SELFPAY ==
[2018-08-17 08:33] VITALS: BP 134/80; PULSE 78; RESP 16; TEMP 36.8; O2SAT 99
[2018-08-17] MEDS: Lactated Ringers 1,000 ML 80 ML IV (09:06)
--- NOTE | 2018-08-17 09:46 | W.PM.DSUDISC ---
Discharge Plan Disposition Patient Disposition: HOME Condition: Good Discharge Details Attending Provider: Anni Mast Primary Care Provider: Gissell Davis Home Meds and New Rx's Prescriptions: Continued levalbuterol tartrate [Xopenex HFA] 45 mcg/actuation HFA aerosol inhaler 2 puff Inhalation Q4H PRN Qty: 4 RF: 4 albuterol sulfate 2.5 mg /3 mL (0.083 %) solution for nebulization 2.5 mg Inhalation Q6H PRN Qty: 180 RF: 4 fluticasone propion-salmeterol [Advair Diskus] 500-50 mcg/dose blister with device 1 inh Inhalation BID Qty: 1 RF: 6 magnesium oxide 500 mg capsule 500 mg PO DAILY Qty: 90 RF: 3 metformin 1,000 mg tablet 1,000 mg PO BID Qty: 180 RF: 3 montelukast [Singulair] 10 mg tablet 10 mg PO HS Qty: 90 RF: 3 ferrous sulfate 325 mg (65 mg iron) tablet 325 mg PO BID Qty: 60 RF: 4 diazepam 5 mg tablet 5 mg PO BID MDD 10mg PRN (Reason: muscle spasm) Qty: 14 RF: 0 rifampin [Rifadin] 300 mg capsule 600 mg PO DAILY Qty: 60 RF: 3 cephalexin 500 mg tablet 500 mg PO TID Qty: 90 RF: 3 cholecalciferol (vitamin D3) [Vitamin D3] 2,000 UNIT capsule 2,000 unit PO DAILY RF: 0 triamcinolone acetonide 15 GM cream 1 gm Topical daily prn Qty: 1 RF: 3 blood-glucose meter [SciGituch UltraMini] 1 EACH kit 1 ea Miscellaneous DAILY Qty: 1 RF: 0 Lactase Fast Acting 9,000 UNIT tablet 9,000 unit PO AC & HS PRNQty: 90 RF: 0 lancets [[place] MediaTouch UltraSoft Lancets] 1 EACH misc 1 ea Miscellaneous DAILY Qty: 100 RF: 3 sucralfate [Carafate] 1 GM tablet 1 g PO BID Qty: 180 RF: 3 gabapentin 300 MG capsule 1 - 2 tab-cap PO TID Qty: 270 RF: 3 esomeprazole magnesium [Nexium] 40 mg capsule,delayed release(DR/EC) 40 mg PO DAILY Qty: 90 RF: 3 cetirizine 10 mg tablet 10 mg PO DAILY Qty: 90 RF: 4 fluoxetine 20 mg capsule 20 mg PO DAILY Qty: 90 RF: 3 fluoxetine 40 mg capsule 40 mg PO DAILY Qty: 90 RF: 3 OneTouch Ultra Test strip 1 ea Miscellaneous DAILY Qty: 100 RF: 4 aspirin 81 mg Tablet,Delayed Release (Dr/Ec) 81 mg PO BID Qty: 60 RF: 0 acetaminophen 500 mg tablet 1,000 mg PO Q8H PRN (Reason: pain) Qty: 90 RF: 3 meloxicam 7.5 mg tablet 7.5 mg PO BID Qty: 60 RF: 0 Discharge Instructions Additional Instructions: Your EGD showed mild inflammation of the esophagus from reflux. Food was still present in the stomach consistent with delayed stomach emptying. A dilation of the esophagus was performed. Stand Alone Forms: DSU Post EGD Instructions Activity:: Activity as Tolerated Diet:: As Tolerated Discharge Orders Discharge Orders: Discharge Order (Routine); Ordered 08/17/18 Ordered By: Anni Mast DS: Diagnosis Discharge Diagnosis (1) Gastroesophageal reflux disease with esophagitis: Start date: 08/17/18 Start time: 09:46 Status: Acute (2) Gastroparesis: Start date: 08/17/18 Start time: 09:47 Status: Acute
[2018-08-17 09:55] VITALS: BP 100/67; PULSE 78; RESP 16; TEMP 36.5; O2SAT 94
[2018-08-17 10:00] VITALS: BP 120/76; PULSE 78; RESP 18; TEMP 36.5; O2SAT 95
[2018-08-17 10:05] VITALS: BP 131/92; PULSE 86; RESP 14; TEMP 36.5; O2SAT 95
[2018-08-17 10:10] VITALS: BP 130/79; PULSE 76; RESP 17; TEMP 36.5; O2SAT 97
--- NOTE | 2018-08-17 10:39 | ROE_ITS ---
REPORT OF OPERATIVE PROCEDURE DATE OF PROCEDURE August 17, 2018 PREOPERATIVE DIAGNOSES 1. Reflux. 2. Dysphagia. POSTOPERATIVE DIAGNOSES 1. Mild esophagitis. 2. Small hiatal hernia. 3. Retained gastric food. PROCEDURE EGD with esophageal dilation with a balloon. SURGEON Anni Mast M.D. ANESTHESIA General endotracheal. INDICATIONS This is a 48-year-old woman with chronic reflux symptoms. Her history is significant for a fundoplica tion in the past with subsequent revision. She complains of epigastric burning on a regular basis. Dionna castle has dysphagia several times a week and sometimes has to regurgitate her food. She is on Nexium and Carafate twice a day. Her last EGD was in 2017. She had a dilation to 60 [place] in 2016. The patient had a gastric emptying study attempted a few years ago, but was unable to tolerate the procedure. PROCEDURE DESCRIPTION The patient was intubated under general anesthesia and then positioned onto her left side. The scope was advanced into her esophagus under direct visualization. The GE junction was a few centimeters abo ve the diaphragm with a small amount of food within this residual hiatal hernia, as well as some dean ined food in the fundus of the stomach. The scope was advanced into the duodenum with no evidence of duodenitis. The patient has had previous biopsies done for celiac disease, H. pylori, and eosinophil ic esophagitis all of which were negative in the past. The stomach itself showed no inflammation or u lceration. Retroflexed view showed the small hiatal hernia along with retained food. The GE junction was carefully inspected and did not show a distinct stricture. Again, there were a few linear areas o f esophagitis, but no evidence of Nolen's esophagus. Because of her dysphagia, I elected to proceed with dilation. The balloon dilator was inserted and inflated gradually to 60 [place] and held in posi tion for a minute. This was deflated. There was no evidence of trauma to the esophagus. The scope was slowly withdrawn with no other esophageal lesions found. She tolerated the procedure well, and was s table to Recovery. It is likely that gastroparesis is contributing to her persistent reflux and I will discuss re-attemp ting her gastric emptying study. She should otherwise stay on the Nexium and Carafate, which could po tentially be increased to four times a day. CC: Gissell Davis NP
[2018-08-17 10:53] VITALS: BP 139/97; PULSE 78; RESP 16; TEMP 36.9; O2SAT 98
== END 2018-08-17 11:13 | disposition home or self-care (01) ==
PROVIDERS: Visit Provider Surgery
PROC: 0DJ68ZZ Inspection of Stomach, Via Natural or Artificial Opening Endoscopic (ICD-10-PCS; CPT 43235; principal; 2018-08-17 09:30)
DX: R13.10 Dysphagia, unspecified; K21.0 Gastro-esophageal reflux disease with esophagitis; K44.9 Diaphragmatic hernia without obstruction or gangrene; Z98.890 Other specified postprocedural states
CPT/HCPCS: 43249

== ENCOUNTER 2018-08-20 00:14 | Outpatient (CLI) | payer MEDICARE, SELFPAY ==
--- NOTE | 2018-08-20 11:00 | DI.MAMMO_ITS ---
SYMPTOM/DIAGNOSIS: SCREENING, Z12.31 MAMMOGRAMS: Mammograms were interpreted according to the usual protocol including computer analysis with CAD system, tomosynthesis and C view imaging. Comparison is made with exam from 2018. The breasts are composed of scattered fibroglandular densities, breast density, Category B. No suspicious masses or suspicious microcalcifications are seen. There has been no significant change. IMPRESSION: Category 1, negative mammogram. Yearly screening mammography is recommended. [facility] ASSESSMENT OF FINDINGS: Negative. Category 1. Patient will receive a letter notifying them of these results. BI-RADS category B. There are scattered areas of fibroglandular density.
== END 2018-08-20 00:34 ==
DX: Z12.31 Encounter for screening mammogram for malignant neoplasm of breast (principal)
CPT/HCPCS: 77063; 77067

== ENCOUNTER → 2018-08-27 09:45 | Outpatient (BNVA) | payer MEDICARE, SELFPAY | PROVIDERS: Visit Provider Student in an Organized Health Care Education/Training Program | DX: T84.54XA Infection and inflammatory reaction due to internal left knee prosthesis, initial encounter (principal); E11.9 Type 2 diabetes mellitus without complications; Z79.84 Long term (current) use of oral hypoglycemic drugs | CPT/HCPCS: 99213 ==

== ENCOUNTER 2018-09-17 15:03 | Outpatient (CLI) | payer MEDICARE, SELFPAY ==
--- NOTE | 2018-09-17 14:42 | DI.RAD_ITS ---
SYMPTOM/DIAGNOSIS: RIGHT KNEE PATELLA CLUNK RIGHT KNEE: Single Merchant view is obtained. There are post surgical changes of a right knee replacement. The orthopaedic hardware appears in good position.
== END 2018-09-17 15:23 ==
PROVIDERS: Visit Provider Student in an Organized Health Care Education/Training Program
DX: M25.561 Pain in right knee (principal); Z96.651 Presence of right artificial knee joint; T84.54XA Infection and inflammatory reaction due to internal left knee prosthesis, initial encounter; M25.861 Other specified joint disorders, right knee
CPT/HCPCS: 99213; 73560

== ENCOUNTER → 2018-10-12 09:39 | Outpatient (BNVA) | payer MEDICARE, SELFPAY | PROVIDERS: Visit Provider Student in an Organized Health Care Education/Training Program | DX: T84.54XS Infection and inflammatory reaction due to internal left knee prosthesis, sequela (principal); M25.861 Other specified joint disorders, right knee; Z96.653 Presence of artificial knee joint, bilateral; Z47.1 Aftercare following joint replacement surgery; E11.9 Type 2 diabetes mellitus without complications | CPT/HCPCS: 99213 ==

== ENCOUNTER 2018-10-14 23:18 | Inpatient (IN) | payer MEDICARE, SELFPAY ==
--- NOTE | 2018-10-14 00:13 | DI.CT_ITS ---
SYMPTOM/DIAGNOSIS: RIGHT FLANK PAIN NONCONTRAST CT ABDOMEN AND PELVIS: Comparison is made with July. There is again noted to be a stone in the upper right ureter measuring 6 x 10 mm causing moderate hydronephrosis. The amount of hydronephrosis appears worse when compared with the previous exam. There is an additional stone seen near the lower pole of the right kidney which is nonobstructing. There is a 6 x 10 mm stone in the upper left ureter. Several stones are also noted at the lower pole of the left kidney. There is moderate left hydronephrosis which appears slightly worse when compared with the previous exam. No additional stones are seen distally in the ureters or in the bladder. The urinary bladder is nearly empty There is a small to moderate sized hiatal hernia. The lung bases are clear. The liver shows fatty infiltration. The patient is status post cholecystectomy. The spleen, pancreas and adrenals are unremarkable. There has been previous abdominal wall hernia repairs. There is stable thinning of the anterior abdominal wall but no evidence of a recurrent hernia. The appendix appears normal. There is no bowel dilatation or inflammatory change. IMPRESSION: Stones in both upper ureters causing mild bilateral hydronephrosis. Stones are also seen at the lower poles of both kidneys.
[2018-10-14 23:28] VITALS: BP 132/75; PULSE 70; RESP 16; TEMP 36.7; O2SAT 97
--- NOTE | 2018-10-14 23:35 | W.ED.GENAD ---
Discharge Plan Disposition Patient Disposition: [facility] INPATIENT Condition: Stable Discharge Details Chief Complaint: FlankPain Clinical Impression: RENAE (acute kidney injury), Bilateral kidney stones Primary Care Provider: Gissell Davis ED Provider: Gonzalo Pacheco Home Meds and New Rx's Prescriptions: No Action levalbuterol tartrate [Xopenex HFA] 45 mcg/actuation HFA aerosol inhaler 2 puff Inhalation Q4H PRN Qty: 4 RF: 4 albuterol sulfate 2.5 mg /3 mL (0.083 %) solution for nebulization 2.5 mg Inhalation Q6H PRN Qty: 180 RF: 4 fluticasone propion-salmeterol [Advair Diskus] 500-50 mcg/dose blister with device 1 inh Inhalation BID Qty: 1 RF: 6 magnesium oxide 500 mg capsule 500 mg PO DAILY Qty: 90 RF: 3 metformin 1,000 mg tablet 1,000 mg PO BID Qty: 180 RF: 3 montelukast [Singulair] 10 mg tablet 10 mg PO HS Qty: 90 RF: 3 ferrous sulfate 325 mg (65 mg iron) tablet 325 mg PO BID Qty: 60 RF: 4 rifampin [Rifadin] 300 mg capsule 600 mg PO DAILY Qty: 60 RF: 3 cephalexin 500 mg tablet 500 mg PO TID Qty: 90 RF: 3 cholecalciferol (vitamin D3) [Vitamin D3] 2,000 UNIT capsule 2,000 unit PO DAILY RF: 0 triamcinolone acetonide 15 GM cream 1 gm Topical daily prn Qty: 1 RF: 3 (DME) blood-glucose meter [[employer] UltraMini] 1 EACH kit 1 ea Miscellaneous DAILY Qty: 1 RF: 0 Lactase Fast Acting 9,000 UNIT tablet 9,000 unit PO AC & HS PRNQty: 90 RF: 0 (DME) lancets [WeddingLovelyTouch UltraSoft Lancets] 1 EACH misc 1 ea Miscellaneous DAILY Qty: 100 RF: 3 sucralfate [Carafate] 1 GM tablet 1 g PO BID Qty: 180 RF: 3 gabapentin 300 MG capsule 1 - 2 tab-cap PO TID Qty: 270 RF: 3 esomeprazole magnesium [Nexium] 40 mg capsule,delayed release(DR/EC) 40 mg PO DAILY Qty: 90 RF: 3 cetirizine 10 mg tablet 10 mg PO DAILY Qty: 90 RF: 4 fluoxetine 20 mg capsule 20 mg PO DAILY Qty: 90 RF: 3 fluoxetine 40 mg capsule 40 mg PO DAILY Qty: 90 RF: 3 (DME) OneTouch Ultra Test strip 1 ea Miscellaneous DAILY Qty: 100 RF: 4 sucralfate [Carafate] 1 gram tablet 1 gm PO QACHS Qty: 120 RF: 2 meloxicam 7.5 mg tablet 7.5 mg PO BID Qty: 60 RF: 3 acetaminophen 500 mg tablet 1,000 mg PO Q8H PRN (Reason: pain) Qty: 90 RF: 3 aspirin 81 mg Tablet,Delayed Release (Dr/Ec) 81 mg PO BID Qty: 60 RF: 0 Medical Decision Making 48 yo female with multiple medical problems comes in with right lower back pain radiating to the right sided abdomen for 2 days along with n/v. She denies having symptoms like this in the past and denies any recent falls or trauma. She has no midline pain, no saddle anesthesia or weakness in the legs. She has mild right oblique tenderenss and right lumbar tenderness without rashes. I suspect lumbar strain but given location of pain and n/v radha eval for kideny stone among other pathology. Her exam seems less likely consistent with appendicitis and no findigns on exam to suggest cauda equina or spinal cord pathology ct showing bilateral proximal kidney stones with mild hydro. Patient is still making urine, labs show renae with creatiine over 3 and normal has creatinine under 1. Still having pain despite iv opiates. Paged Dr. [place] from urology but no call back, but did confirm he is here this week, spoke with the hospitalist who agrees with admission for IV hydration, pain control and urology consult in the AM. Differential Diagnosis kidney stone, pyelo, lumbar strain Medical Records Medical records reviewed: Yes I reviewed the patient's medical records. Imaging Data Radiologic Study: Attestation: I personally reviewed and interpreted this imaging study as follows: Imaging: CT Scan Radiologist's impression: EXAM: CT Abdomen and Pelvis Without Contrast EXAM DATE/TIME: 10/14/2018 11:35 PM CLINICAL HISTORY: 48 years old, female; Patient HX: R flank pain radiating into pelvis TECHNIQUE: Imaging protocol: Computed tomography images of the abdomen and pelvis without contrast. Radiation optimization: All CT scans at this facility use at least one of these dose optimization techniques: automated exposure control; mA and/or kV adjustment per patient size (includes targeted exams where dose is matched to clinical indication); or iterative reconstruction. COMPARISON: CT ABDOMEN PELVIS W 08/08/2018 9:48 AM FINDINGS: Liver: No suspicious lesions. Gallbladder and bile ducts: Cholecystectomy. Pancreas: Unremarkable. Spleen: No suspicious lesions. Adrenals: No suspicious nodule. Kidneys and ureters: 6 mm stone proximal left ureter causing mild hydronephrosis. 6 x 10 mm stone proximal right ureter causing mild hydronephrosis. 4 mm nonobstructing right renal calculus. 9 mm nonobstructing left renal calculus. Stomach and bowel: No inflammed or dilated loops. Appendix: No evidence of appendicitis. Intraperitoneal space: No free air. No significant fluid collection. Vasculature: Unremarkable. MARIE CUNHA Preliminary Radiology Report CABINET MOUNTER (QA) DISCREPANCY? If there is a discrepancy between the preliminary and final interpretation, please notify [employer] via [email or web address]. If you do not have access to our QA portal, call our QA team at [phone] CONFIDENTIALITY STATEMENT This report is intended only for the use of the referring physician, and only in accordance with law, If you received this in error, call [phone] Page 2 of 2 Lymph nodes: Unremarkable. Bladder: Unremarkable as visualized. Reproductive: Unremarkable as visualized. Bones/joints: No acute fracture. No dislocation. Soft tissues: Unremarkable. IMPRESSION: Both proximal ureters have 6 mm diameter by 10 mm length stones causing mild hydronephrosis. Lab Data Lab results reviewed: Yes I reviewed the patient's lab results. HPI General Mode of arrival: ambulatory. Date/Time Provider Initiated Documentation: 10/14/18 23:24. Limitations to Documentation: no limitations. Information obtained by: patient. History of Present Illness 48 year old F presents to the emergency department with the chief complaint of right lower back pain, described as moderate, Quality is described as stabbing and aching, and is localized to the back. Patient abdomen. Patient started experiencing this day(s) (2) and it has been constant. No relieving factors improve symptom(s), No exacerbating factors reported . Patient notes nausea/vomiting. Patient did receive the following treatments prior to arrival, none Related Data Home Medications Medication Instructions Recorded Confirmed cholecalciferol (vitamin D3) 2,000 unit PO DAILY 05/19/15 10/14/18 [Vitamin D3] triamcinolone acetonide 1 gm TOPICAL daily prn #1 tube 06/01/16 10/14/18 blood-glucose meter [OneTouch #1 kit 06/13/16 10/14/18 UltraMini] Lactase Fast Acting 9,000 unit PO AC & HS PRN #90 09/05/16 10/14/18 tab-cap lancets [OneTouch UltraSoft #100 ea 09/12/16 10/14/18 Lancets] sucralfate [Carafate] 1 g PO BID #180 tab-cap 01/20/17 10/14/18 gabapentin 1 - 2 tab-cap PO TID #270 tab-cap 07/19/17 10/14/18 esomeprazole magnesium 40 mg 40 mg PO DAILY #90 tab-cap 02/08/18 10/14/18 capsule,delayed release levalbuterol tartrate 45 2 puff INHALATION Q4H PRN #4 03/29/18 10/14/18 mcg/actuation aerosol inhaler inhaler aspirin 81 mg PO BID #60 tab 04/26/18 10/14/18 cetirizine 10 mg tablet 10 mg PO DAILY #90 tab-cap 07/02/18 10/14/18 fluoxetine 20 mg capsule 20 mg PO DAILY #90 tab-cap 07/02/18 10/14/18 fluoxetine 40 mg capsule 40 mg PO DAILY #90 tab-cap 07/02/18 10/14/18 albuterol sulfate 2.5 mg INHALATION Q6H PRN #180 ml 07/19/18 10/14/18 ferrous sulfate 325 mg (65 mg 325 mg PO BID #60 tab 07/19/18 10/14/18 iron) tablet fluticasone 500 mcg-salmeterol 50 1 inh INHALATION BID #1 puff 07/19/18 10/14/18 mcg/dose blistr powdr for inhalation magnesium oxide 500 mg capsule 500 mg PO DAILY #90 cap 07/19/18 10/14/18 metformin 1,000 mg tablet 1,000 mg PO BID #180 tab-cap 07/19/18 10/14/18 montelukast 10 mg tablet 10 mg PO HS #90 tab 07/19/18 10/14/18 blood sugar diagnostic #100 strip 07/24/18 10/14/18 cephalexin 500 mg tablet 500 mg PO TID #90 tab 08/06/18 10/14/18 rifampin 300 mg capsule 600 mg PO DAILY #60 cap 08/06/18 10/14/18 sucralfate 1 gram tablet 1 gm PO QACHS #120 tab 08/20/18 10/14/18 acetaminophen 500 mg tablet 1,000 mg PO Q8H PRN #90 tab 08/28/18 10/14/18 meloxicam 7.5 mg tablet 7.5 mg PO BID #60 tab 08/28/18 10/14/18 Previous Rx's Medication Instructions Recorded sucralfate [Carafate] 1 g PO BID #180 tab-cap 01/20/17 gabapentin 1 - 2 tab-cap PO TID #270 tab-cap 07/19/17 esomeprazole magnesium 40 mg 40 mg PO DAILY #90 tab-cap 02/08/18 capsule,delayed release levalbuterol tartrate 45 2 puff INHALATION Q4H PRN #4 03/29/18 mcg/actuation aerosol inhaler inhaler aspirin 81 mg PO BID #60 tab 04/26/18 cetirizine 10 mg tablet 10 mg PO DAILY #90 tab-cap 07/02/18 fluoxetine 20 mg capsule 20 mg PO DAILY #90 tab-cap 07/02/18 fluoxetine 40 mg capsule 40 mg PO DAILY #90 tab-cap 07/02/18 albuterol sulfate 2.5 mg INHALATION Q6H PRN #180 ml 07/19/18 ferrous sulfate 325 mg (65 mg 325 mg PO BID #60 tab 07/19/18 iron) tablet fluticasone 500 mcg-salmeterol 50 1 inh INHALATION BID #1 puff 07/19/18 mcg/dose blistr powdr for inhalation magnesium oxide 500 mg capsule 500 mg PO DAILY #90 cap 07/19/18 metformin 1,000 mg tablet 1,000 mg PO BID #180 tab-cap 07/19/18 montelukast 10 mg tablet 10 mg PO HS #90 tab 07/19/18 blood sugar diagnostic #100 strip 06/04/19 cephalexin 500 mg tablet 500 mg PO TID #90 tab 08/06/18 rifampin 300 mg capsule 600 mg PO DAILY #60 cap 08/06/18 sucralfate 1 gram tablet 1 gm PO QACHS #120 tab 08/20/18 acetaminophen 500 mg tablet 1,000 mg PO Q8H PRN #90 tab 08/28/18 meloxicam 7.5 mg tablet 7.5 mg PO BID #60 tab 08/28/18 Allergies Allergy/AdvReac Type Severity Reaction Status Date / Time latex Allergy Severe HIVES, Verified 10/14/18 23:33 ITCHING erythromycin base AdvReac Intermediate NAUSEA, Verified 10/14/18 23:33 VOMITING hydromorphone AdvReac Intermediate Nausea Verified 10/14/18 23:33 chlorhexidine AdvReac Mild Itching Verified 10/14/18 23:33 [From Hibiclens] codeine AdvReac NAUSEA, Verified 10/14/18 23:33 VOMITING General Stated Complaint: FlankPain SHAYNE: 3 Review of Systems Review of Systems All systems reviewed & are unremarkable except as noted in HPI and below Constitutional Denies chills, Denies fever(s) and Denies weakness Cardiovascular Denies chest pain and Denies dyspnea Respiratory Denies cough and Denies dyspnea Gastrointestinal Denies nausea Musculoskeletal Denies joint swelling Integumentary/Breasts Denies rash Neurologic Denies weakness Psychiatric Denies depression [facility] Medical History (Updated 09/18/18 @ 06:42 by Raheel Gongora MD) Abdominal discomfort, epigastric (Acute) Acute blood loss anemia (Acute) Asthma (Chronic) Candidal skin infection Depression with anxiety (Acute) Diabetes (Chronic 06/07/16) Gastroparesis GERD (gastroesophageal reflux disease) Hyperlipidemia (Chronic) Incisional hernia Migraine (Chronic 03/01/12) Obesity (Chronic) Organic sleep apnea, unspecified (Chronic) Surgical History ABDOMINAL WALL HERNIA REPAIR Arthroplasty of knee Cholecystectomy EGD - MAC (09/28/16) H/O surgical procedure (Chronic) Hernia Repair, Incisional (~09/2009) History of total right knee replacement (Acute) Hysterectomy, Laproscopic Infection of total left knee replacement (Acute 09/13/17) Nga Fundoplication 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) Tonsillectomy (06/14/10) Social History Smoking/Tobacco Use Status: Never Alcohol Intake: never Drug use: Never Caregiver/Support person: No Household members: spouse Housing: apartment Communication Needs: None Do you need help understanding health information?: Rarely Pets and animals: Yes Pets and animals: cat(s) and dog(s) Sexually active: No Do you think of yourself as: straight/heterosexual Current gender identity: female What is your relationship status?: How often do you talk on the phone with friends or family?: decline to answer How often do you get together with friends or relatives?: decline to answer How often do you attend anabaptist or congregational services?: decline to answer Do you belong to any clubs or organized social groups?: no Panel score (0-1 are the most socially isolated patients): 1 Sita/Sabianist: No preference Special sita needs: No Seatbelt use: always Helmet use: No Drive intox or ride w/intox 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 Do you feel safe at home: Yes Exam Const General: no acute distress Orientation: alert HENMT Head: normal to inspection Ears: external ears normal General nose exam: external nose normal Mouth: moist mucous membranes Eyes General: appearance normal, both eyes and all related structures Neck Neck: normal visual inspection Resp Effort & Inspection: normal respiratory effort and able to speak in complete sentences Cardio Rate: regular rate GI Palpation: soft Back/Spine/Pelvis Back: no CVA tenderness Skin General skin exam: no rashes or lesions noted Neuro General: alert and oriented x3 Extrem General: normal to inspection Psych Mental Status: mental status grossly normal Course Vital Signs Temperature 36.7 C 10/14/18 23:28 Pulse 70 10/14/18 23:28 Respiratory Rate 16 10/14/18 23:28 Blood Pressure 132/75 10/14/18 23:28 Pulse Oximetry 97 10/14/18 23:28 Temperature 36.7 C 10/14/18 23:28 Temperature Source Temporal Artery Scan 10/14/18 23:28 Pulse 70 10/14/18 23:28 Respiratory Rate 16 10/14/18 23:28 Blood Pressure 132/75 10/14/18 23:28 Pulse Oximetry 97 10/14/18 23:28 Oxygen Delivery Method Room Air 10/14/18 23:28 Oxygen Flow Rate 0 10/14/18 23:28 Pain Level 8 10/14/18 23:28
[2018-10-14] MEDS: Normal Saline 1,000 ML 1000 ML IV (23:54)
[2018-10-14] MEDS: fentaNYL 100 MCG/2 ML VIAL 75 MCG IVP (23:55)
[2018-10-14] MEDS: Ondansetron 4 MG/2 ML VIAL (23:55)
[2018-10-14 23:56] LABS: Abs Immature Grans 0.03 k/cumm (0.0-0.09); Absolute Basophil Count 0.01 k/cumm (0.0-0.2); Absolute Eosinophil Count 0.14 k/cumm (0.0-0.7); Absolute Lymphocyte Count 1.66 k/cumm (1.2-3.4); Absolute Monocyte Count 1.11 k/cumm (0.11-0.7); Absolute Neutrophil Count 8.02 k/cumm (1.2-6.7); Basophils % 0.1; Eosinophils % 1.3; HCT 36.6 % (36.0-46.0); HGB 12.7 g/dL (12.0-15.5); Immature Grans % 0.3; Lymphocytes % 15.1; Mean Corp. HGB Concentration 34.7 g/dL (32.0-36.0); Mean Corpuscular Hemoglobin 32.3 pg (27.0-33.0); Mean Corpuscular Volume 93.1 fL (80-95); Mean Platelet Volume 9.9 fL (8.0-11.0); Monocytes % 10.1; Neutrophils % 73.1; Platelet Count 318 x1000/uL (130-400); RBC 3.93 m/cumm (4.00-5.20); RBC Distribution Width 14.9 % (11.7-14.6); White Blood Cell Count 10.97 k/cumm (4.4-10.8)
[2018-10-14 23:57] LABS: Bilirubin Negative (Negative); Blood Small (Negative); Clarity Clear (Clear); Glucose Negative (Negative); Ketones Trace mg/dL (Negative); Leukocyte Esterase Small (Negative); Nitrite Negative (Negative); Specific Gravity >= 1.030 (1.005-1.025); Urobilinogen 0.2 EU/dL (Up TO 0.2); pH 5.5 (5-8)
[2018-10-15] VITALS (8 sets, daily range): BP systolic 109–148; BP diastolic 63–87; PULSE 57–76; RESP 1–18; TEMP 36.6–37.2; O2SAT 92–97
[2018-10-15 00:02] LABS: Bacteria Packed HPF (Negative); C & S Indicated? No/Sq. Contamination; Casts 0-2 Hyaline LPF (Negative); Crystals Negative HPF (Negative); Epithelial Cells Many HPF (Negative); Mucus Negative (Negative); RBC 0-2 (0-2)
[2018-10-15 00:13] LABS: ALT 20 U/L (14-59); AST 12 U/L (15-37); Albumin 3.6 g/dL (3.4-5.0); Alkaline Phosphatase 66 U/L (46-116); Anion Gap 15.9 mmol/L (3-11); BUN 25 mg/dL (7-18); Bilirubin, Total 0.5 mg/dL (0.2-1.0); CO2 23.1 mmol/L (21.0-32.0); Chloride 101 mmol/L (98-107); Estimated GFR 13.27 (mL/min/1.73m2); Glucose 159 mg/dL (70-100); Lipase 115 U/L (73-393); Potassium 3.2 mmol/L (3.5-5.1); Sodium 140 mmol/L (136-145); Total Protein 7.9 g/dL (6.4-8.2)
[2018-10-15 00:18] LABS: CREATININE 3.64 mg/dL (0.55-1.02)
[2018-10-15 00:25] LABS: PTT Activated 22.4 sec (21.0-31.4); Prothrombin Time 10.1 sec (9.3-11.0)
[2018-10-15] MEDS: Normal Saline Flush 10 ML SYR IVP (00:30)
--- NOTE | 2018-10-15 00:41 | DI.VRAD_ITS ---
EXAM: CT Abdomen and Pelvis Without Contrast EXAM DATE/TIME: 10/14/2018 11:35 PM CLINICAL HISTORY: 48 years old, female; Patient HX: R flank pain radiating into pelvis TECHNIQUE: Imaging protocol: Computed tomography images of the abdomen and pelvis without contrast. Radiation optimization: All CT scans at this facility use at least one of these dose optimization techniques: automated exposure control; mA and/or kV adjustment per patient size (includes targeted exams where dose is matched to clinical indication); or iterative reconstruction. COMPARISON: CT ABDOMEN PELVIS W 08/08/2018 9:48 AM FINDINGS: Liver: No suspicious lesions. Gallbladder and bile ducts: Cholecystectomy. Pancreas: Unremarkable. Spleen: No suspicious lesions. Adrenals: No suspicious nodule. Kidneys and ureters: 6 mm stone proximal left ureter causing mild hydronephrosis. 6 x 10 mm stone proximal right ureter causing mild hydronephrosis. 4 mm nonobstructing right renal calculus. 9 mm nonobstructing left renal calculus. Stomach and bowel: No inflammed or dilated loops. Appendix: No evidence of appendicitis. Intraperitoneal space: No free air. No significant fluid collection. Vasculature: Unremarkable. Lymph nodes: Unremarkable. Bladder: Unremarkable as visualized. Reproductive: Unremarkable as visualized. Bones/joints: No acute fracture. No dislocation. Soft tissues: Unremarkable. IMPRESSION: Both proximal ureters have 6 mm diameter by 10 mm length stones causing mild hydronephrosis. Dictated and Authenticated by: Keyur Quinonez MD. Ordering:LOUANN Sánchez MD
[2018-10-15] MEDS: fentaNYL 100 MCG/2 ML VIAL IVP (01:23)
[2018-10-15] MEDS: Tamsulosin 0.4 MG CAPCR PO ×2 (01:24→07:44)
[2018-10-15] MEDS: HYDROmorphone 2 MG/ML VIAL 1 MG IVP ×3 (01:41→10:33)
[2018-10-15] MEDS: Ondansetron 4 MG/2 ML VIAL (01:46)
--- NOTE | 2018-10-15 01:50 | NUR.NOTE ---
While reviewing allergy list, pt states she is not allergic to hydromorphone, never has been, and does not know why it is on her allergy list. pt states she doesnt ever recall receiving/taking med in the past either. Dr Pacheco advised and instructed to take med off list. Pharmacy notified and med removed.Nursing Note:
--- NOTE | 2018-10-15 01:55 | W.PM.HP.N ---
Date of service: 10/15/18 Time of Service: 01:55 Assessment and Plan (1) Ureterolithiasis: Start date: 10/15/18 Current visit: Yes Status: Acute This is a 48-year-old lady who has no previous history of renal lithiasis presenting with bilateral proximal ureteral stones greater than 5 mm in size. There is mild hydronephrosis bilaterally. Urology will be consulted and intervention will most likely be needed. Overnight she will be hydrated with IV normal saline, given Flomax orally and pain control with IV fentanyl. (2) Hydronephrosis concurrent with and due to calculi of kidney and ureter: Start date: 10/15/18 Current visit: Yes Status: Acute Continue IV hydration and pain control with urology consultation will likely to intervene surgically with these proximal ureteral stone being greater than 5 mm and most likely not going to pass on their own. (3) RENAE (acute kidney injury): Start date: 10/15/18 Current visit: Yes Status: Acute This is a new problem for this patient but she does have chronic diabetes which makes her at risk for renal disease. Follow-up on labs with IV hydration and supplement with magnesium and potassium if needed. If not improving the obstructing stones will need to be intervened upon sooner than later. History of Present Illness Chief Complaint: Right flank pain for 2 days Narrative: This is a 48-year-old lady with multiple problems more recently with an infected left TKA prosthesis on Keflex and rifampin. 2 days prior to admission patient began to have right back pain radiated into her right abdomen but no gross hematuria or urinary symptoms. The ED physician was concerned about lumbar strain but the CT scan of the abdomen did reveal a new problem for this patient with greater than 6 mm ureteral stones obstructing left and right ureters with mild hydronephrosis. He also had increased creatinine from her baseline and he is a diabetic. She was admitted for IV hydration and pain control with urological consultation in the morning. Dr. Montana will be here in the morning. Other medical problems have been stable except for her recent infected left knee prosthesis. She has chronic asthmatic but has had no respiratory symptoms. She has had no change in urinary habits and has had no fever or rigors. Review of Systems Review of Systems 13 point review of systems otherwise unrevealing or stable. [facility] Medical History Abdominal discomfort, epigastric (Acute) Acute blood loss anemia (Acute) Asthma (Chronic) Candidal skin infection Depression with anxiety (Acute) Diabetes (Chronic 06/07/16) Gastroparesis GERD (gastroesophageal reflux disease) Hyperlipidemia (Chronic) Incisional hernia Migraine (Chronic 03/01/12) Obesity (Chronic) Organic sleep apnea, unspecified (Chronic) Surgical History ABDOMINAL WALL HERNIA REPAIR Arthroplasty of knee Cholecystectomy EGD - MAC (09/28/16) H/O surgical procedure (Chronic) Hernia Repair, Incisional (~09/2009) History of total right knee replacement (Acute) Hysterectomy, Laproscopic Infection of total left knee replacement (Acute 09/13/17) Nga Fundoplication 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 Maternal Grandfather Heart disease Paternal Grandfather Diabetes Heart disease Maternal Grandmother Diabetes Heart disease Paternal Grandmother Heart disease Hyperlipidemia Asthma Social History Smoking/Tobacco Use Status: Never Alcohol Intake: never Drug use: Never Caregiver/Support person: No Household members: spouse Housing: apartment Communication Needs: None Do you need help understanding health information?: Rarely Pets and animals: Yes Pets and animals: cat(s) and dog(s) Sexually active: No Do you think of yourself as: straight/heterosexual Current gender identity: female What is your relationship status?: How often do you talk on the phone with friends or family?: decline to answer How often do you get together with friends or relatives?: decline to answer How often do you attend mandaen or sabianist services?: decline to answer Do you belong to any clubs or organized social groups?: no Panel score (0-1 are the most socially isolated patients): 1 Sita/Sabianist: No preference Special sita needs: No Seatbelt use: always Helmet use: No Drive intox or ride w/intox class a truck driver: No Do you feel safe at home: Yes Meds Home Medications Medication Instructions Recorded Confirmed Type cholecalciferol (vitamin D3) 2,000 unit PO DAILY 05/19/15 10/14/18 History [Vitamin D3] triamcinolone acetonide 1 gm TOPICAL daily prn #1 tube 06/01/16 10/14/18 History blood-glucose meter [OneTouch #1 kit 06/13/16 10/14/18 History UltraMini] Lactase Fast Acting 9,000 unit PO AC & HS PRN #90 09/05/16 10/14/18 History tab-cap lancets [OneTouch UltraSoft #100 ea 09/12/16 10/14/18 History Lancets] sucralfate [Carafate] 1 g PO BID #180 tab-cap 01/20/17 10/14/18 Rx gabapentin 1 - 2 tab-cap PO TID #270 tab-cap 07/19/17 10/14/18 Rx esomeprazole magnesium 40 mg 40 mg PO DAILY #90 tab-cap 02/08/18 10/14/18 Rx capsule,delayed release levalbuterol tartrate 45 2 puff INHALATION Q4H PRN #4 03/29/18 10/14/18 Rx mcg/actuation aerosol inhaler inhaler aspirin 81 mg PO BID #60 tab 04/26/18 10/14/18 Rx cetirizine 10 mg tablet 10 mg PO DAILY #90 tab-cap 07/02/18 10/14/18 Rx fluoxetine 20 mg capsule 20 mg PO DAILY #90 tab-cap 07/02/18 10/14/18 Rx fluoxetine 40 mg capsule 40 mg PO DAILY #90 tab-cap 07/02/18 10/14/18 Rx albuterol sulfate 2.5 mg INHALATION Q6H PRN #180 ml 07/19/18 10/14/18 Rx ferrous sulfate 325 mg (65 mg 325 mg PO BID #60 tab 07/19/18 10/14/18 Rx iron) tablet fluticasone 500 mcg-salmeterol 50 1 inh INHALATION BID #1 puff 07/19/18 10/14/18 Rx mcg/dose blistr powdr for inhalation magnesium oxide 500 mg capsule 500 mg PO DAILY #90 cap 07/19/18 10/14/18 Rx metformin 1,000 mg tablet 1,000 mg PO BID #180 tab-cap 05/30/19 08/25/19 Rx montelukast 10 mg tablet 10 mg PO HS #90 tab 07/19/18 10/14/18 Rx blood sugar diagnostic #100 strip 07/24/18 10/14/18 Rx cephalexin 500 mg tablet 500 mg PO TID #90 tab 08/06/18 10/14/18 Rx rifampin 300 mg capsule 600 mg PO DAILY #60 cap 08/06/18 10/14/18 Rx sucralfate 1 gram tablet 1 gm PO QACHS #120 tab 08/20/18 10/14/18 Rx acetaminophen 500 mg tablet 1,000 mg PO Q8H PRN #90 tab 08/28/18 10/14/18 Rx meloxicam 7.5 mg tablet 7.5 mg PO BID #60 tab 08/28/18 10/14/18 Rx Allergies Allergy/AdvReac Type Severity Reaction Status Date / Time latex Allergy Severe HIVES, Verified 10/14/18 23:33 ITCHING erythromycin base AdvReac Intermediate NAUSEA, Verified 10/14/18 23:33 VOMITING chlorhexidine AdvReac Mild Itching Verified 10/14/18 23:33 [From Hibiclens] codeine AdvReac NAUSEA, Verified 10/14/18 23:33 VOMITING Exam Narrative Exam Narrative: General: Patient appears older than stated age and is disheveled and appears chronically ill. She is in no acute distress at the time I saw her with her pain control. She is alert and oriented x3. HEENT: Normocephalic, pupils equal and reactive to light symmetrically with extraocular movement intact and sclera anicteric. Oropharynx with moist oral mucosa and fair dentition with discoloration. External ears normal. Neck: Supple without JVD. Lungs: Bronchial breath sounds diffusely with fair aeration and no increased expiratory phase, no expiratory wheeze, no focalizing rales or rhonchi. Back: Stooped posture with no true CVA tenderness patient states that her right side is achy. Fair range of motion. Heart: Regular rate and rhythm with quite, 2/6 systolic murmur intermittently auscultated over the left sternal border. No gallops or rubs. Breast: Exam deferred. Abdomen: Obese contour, nontender to palpation with bowel sounds positive in all quadrants. No palpable hepatosplenomegaly. Kidneys are not palpated and nontender region. Genitalia/rectal: Exam deferred. Extremities: Bilateral TKA scars over the extensor surface of the knees with the left knee having no effusion but appearing more swollen than right. No increased warmth to touch over the knees. Overall no clubbing cyanosis or pitting edema. Pulses are intact. Skin: Pale, warm and dry. No rashes noted. Neuro: Cranial nerves II through XII grossly intact, motor or sensory grossly intact. Monofilament testing was not performed. Psych: Affect normal with good eye contact . Remote and recent memory intact. Mood is normal. (Patient does have history of depression). Results Imaging Imaging Studies: EXAM: CT Abdomen and Pelvis Without Contrast EXAM DATE/TIME: 10/14/2018 11:35 PM CLINICAL HISTORY: 48 years old, female; Patient HX: R flank pain radiating into pelvis TECHNIQUE: Imaging protocol: Computed tomography images of the abdomen and pelvis without contrast. Radiation optimization: All CT scans at this facility use at least one of these dose optimization techniques: automated exposure control; mA and/or kV adjustment per patient size (includes targeted exams where dose is matched to clinical indication); or iterative reconstruction. COMPARISON: CT ABDOMEN PELVIS W 08/08/2018 9:48 AM FINDINGS: Liver: No suspicious lesions. Gallbladder and bile ducts: Cholecystectomy. Pancreas: Unremarkable. Spleen: No suspicious lesions. Adrenals: No suspicious nodule. Kidneys and ureters: 6 mm stone proximal left ureter causing mild hydronephrosis. 6 x 10 mm stone proximal right ureter causing mild hydronephrosis. 4 mm nonobstructing right renal calculus. 9 mm nonobstructing left renal calculus. Stomach and bowel: No inflammed or dilated loops. Appendix: No evidence of appendicitis. Intraperitoneal space: No free air. No significant fluid collection. Vasculature: Unremarkable. Lymph nodes: Unremarkable. Bladder: Unremarkable as visualized. Reproductive: Unremarkable as visualized. Bones/joints: No acute fracture. No dislocation. Soft tissues: Unremarkable. IMPRESSION: Both proximal ureters have 6 mm diameter by 10 mm length stones causing mild hydronephrosis. Dictated and Authenticated by: Keyur Quinonez MD. Labs : 10/15/18 06:15 10/14/18 23:45 Laboratory Results - last 24 hr 10/14/18 10/14/18 10/14/18 23:30 23:45 23:45 WBC 10.97 H RBC 3.93 L Hgb 12.7 Hct 36.6 MCV 93.1 MCH 32.3 MCHC 34.7 RDW 14.9 H Plt Count 318 MPV 9.9 Immature Gran % 0.3 Neutrophils % 73.1 Lymphocytes % 15.1 Monocytes % 10.1 Eosinophils % 1.3 Basophils % 0.1 Absolute Neutrophils 8.02 H Absolute Lymphocytes 1.66 Absolute Monocytes 1.11 H Absolute Eosinophils 0.14 Absolute Basophils 0.01 PT INR APTT Sodium 140 Potassium 3.2 L Chloride 101 Carbon Dioxide 23.1 Anion Gap 15.9 H BUN 25 H Creatinine 3.64 H* Estimated GFR/1.73 m2 13.27 Glucose 159 H Calcium 9.0 Magnesium Total Bilirubin 0.5 AST 12 L ALT 20 Alkaline Phosphatase 66 Total Protein 7.9 Albumin 3.6 Lipase 115 TSH Urine Color Yellow Urine Clarity Clear Urine pH 5.5 Ur Specific [place] >= 1.030 H Urine Protein 30 H Urine Ketones Trace H Urine Blood Small H Urine Nitrite Negative Urine Bilirubin Negative Urine Urobilinogen 0.2 Ur Leukocyte Esterase Small H Urine RBC 0-2 Urine WBC 5-10 Ur Epithelial Cells Many Urine Crystals Negative Urine Bacteria Packed Urine Casts 0-2 hyaline Urine Mucus Negative Ur Culture Indicated? No/sq. contamination Urine Glucose Negative 10/14/18 10/15/18 23:45 01:24 WBC RBC Hgb Hct MCV MCH MCHC RDW Plt Count MPV Immature Gran % Neutrophils % Lymphocytes % Monocytes % Eosinophils % Basophils % Absolute Neutrophils Absolute Lymphocytes Absolute Monocytes Absolute Eosinophils Absolute Basophils PT 10.1 INR 1.0 APTT 22.4 Sodium Potassium Chloride Carbon Dioxide Anion Gap BUN Creatinine Estimated GFR/1.73 m2 Glucose Calcium Magnesium Cancelled Total Bilirubin AST ALT Alkaline Phosphatase Total Protein Albumin Lipase TSH Cancelled Urine Color Urine Clarity Urine pH Ur Specific [place] Urine Protein Urine Ketones Urine Blood Urine Nitrite Urine Bilirubin Urine Urobilinogen Ur Leukocyte Esterase Urine RBC Urine WBC Ur Epithelial Cells Urine Crystals Urine Bacteria Urine Casts Urine Mucus Ur Culture Indicated? Urine Glucose Last Vital Signs Temp 36.9 C 10/15/18 01:30 Pulse 57 L 10/15/18 01:30 Resp 17 10/15/18 01:30 BP 120/63 10/15/18 01:30 Pulse Ox 96 10/15/18 01:30
--- NOTE | 2018-10-15 02:01 | NUR.NOTE ---
Valuables include shirt, pants, socks, shoes, bra and purse that were sent with pt to floor on admission.Nursing Note:
[2018-10-15 02:12] LABS: Magnesium 1.7 mg/dL (1.8-2.4); TSH (W/Ref FT4) 1.49 uIU/mL (0.36-3.74)
[2018-10-15] MEDS: Normal Saline 1,000 ML 200 ML IV ×2 (02:30→06:41)
[2018-10-15] MEDS: fentaNYL 100 MCG/2 ML VIAL 75 MCG IVP (04:00)
[2018-10-15] MEDS: Sucralfate 1 GM TAB PO ×2 (04:01→11:56)
[2018-10-15] MEDS: Ondansetron 4 MG/2 ML VIAL IVP (04:08)
[2018-10-15] MEDS: Albuterol/Ipratropium 3 ML UPD VIAL UPD ×2 (04:08→10:43)
[2018-10-15 06:50] LABS: HCT 34.3 % (36.0-46.0); HGB 11.8 g/dL (12.0-15.5); Mean Corp. HGB Concentration 34.4 g/dL (32.0-36.0); Mean Corpuscular Hemoglobin 32.4 pg (27.0-33.0); Mean Corpuscular Volume 94.2 fL (80-95); Mean Platelet Volume 10.6 fL (8.0-11.0); Platelet Count 311 x1000/uL (130-400); RBC 3.64 m/cumm (4.00-5.20); RBC Distribution Width 14.8 % (11.7-14.6); White Blood Cell Count 11.11 k/cumm (4.4-10.8)
[2018-10-15 07:13] LABS: ALT 15 U/L (14-59); AST 11 U/L (15-37); Albumin 3.2 g/dL (3.4-5.0); Alkaline Phosphatase 66 U/L (46-116); Anion Gap 15.1 mmol/L (3-11); BUN 22 mg/dL (7-18); Bilirubin, Total 0.4 mg/dL (0.2-1.0); CO2 20.9 mmol/L (21.0-32.0); CREATININE 3.39 mg/dL (0.55-1.02); Calcium 8.1 mg/dL (8.5-10.1); Chloride 105 mmol/L (98-107); Glucose 136 mg/dL (70-100); Potassium 3.3 mmol/L (3.5-5.1); Sodium 141 mmol/L (136-145); Total Protein 7.2 g/dL (6.4-8.2)
[2018-10-15] MEDS: FLUoxetine 20 MG CAP 60 MG PO (07:43)
[2018-10-15] MEDS: Cephalexin 500 MG CAP PO (07:43)
[2018-10-15] MEDS: Cholecalciferol (Vitamin D3) 1,000 UNIT TAB 2000 UNITS PO (07:43)
[2018-10-15] MEDS: Meloxicam 15 MG TAB 7.5 MG PO (07:43)
[2018-10-15] MEDS: rifAMPin 300 MG CAP 600 MG PO (07:44)
[2018-10-15] MEDS: Gabapentin 300 MG CAP 600 MG PO (07:44)
[2018-10-15] MEDS: Ferrous Sulfate 325 MG TAB PO (07:44)
[2018-10-15] MEDS: Cetirizine 10 MG TAB PO (07:44)
[2018-10-15] MEDS: Esomeprazole 40 MG CAPCR PO (07:44)
[2018-10-15] MEDS: Magnesium Oxide 400 MG TAB PO (07:44)
[2018-10-15] MEDS: Acetaminophen 500 MG TAB 1000 MG PO (07:54)
[2018-10-15] MEDS: Polyethylene Glycol 3350 17 GM PACKET PO (07:54)
[2018-10-15] MEDS: Budesonide/Formoterol 160/4.5 6 GM 60 PUFF INH IH (07:58)
[2018-10-15] MEDS: Insulin Aspart 300 UNITS/3 ML PEN SC (08:53)
[2018-10-15] MEDS: Potassium Chloride 20 MEQ TABCR 40 MEQ PO (08:53)
[2018-10-15] MEDS: Normal Saline 1,000 ML 150 ML IV (11:35)
--- NOTE | 2018-10-15 11:50 | W.PM.DS.N ---
Date of service: 10/15/18 Time of Service: 11:50 DS: Diagnosis Discharge Diagnosis (1) Ureterolithiasis: Status: Acute (2) Hydronephrosis concurrent with and due to calculi of kidney and ureter: Status: Acute (3) RENAE (acute kidney injury): Status: Acute (4) Infection of total left knee replacement: Status: Acute (5) Diabetes: Status: Chronic (6) Asthma: Status: Chronic Asessment and Plan: not in acute exacerbation (7) Depression with anxiety: Status: Acute Discharge Plan Disposition Patient Disposition: [facility] Condition: Stable Discharge Details Chief Complaint: FlankPain Clinical Impression: RENAE (acute kidney injury), Bilateral kidney stones Reason For Visit: BILATERAL URETEROLITHIASIS WITH HYDRONEPHROSIS,RENAE Admit Date/Time: 10/15/18 01:27 Admit Provider: Herbert Cardona Attending Provider: Herbert Cardona Primary Care Provider: Gissell Davis ED Provider: Gonzalo Pacheco Hospital Course Hospital Course: Ms Chapman is a 48 year old female with PMHx of NIDDM2, chronic infection of L knee prosthesis, on keflex/rifampin therapy as outpatient, as well as asthma, hyperlipidemia, anxiety/depression, GERD, LILIYA, who was admitted to [facility] on 10/15/18 with bilateral obstructive ureterolithiasis causing bilateral hydronephrosis and RENAE. Her baseline Cr is about 0.8-0.9, and today it is 3.39. She was initiated on IVF and flomax, her medications were reviewed; rifampin and mobic were held; keflex and neurontin doses were adjusted. Urology consult was ordered, but unfortunately is not available at [facility] for the next week, as Dr Montana is on vacation. With patient's permission, I reached out to [facility] - Dr Ace of urology has reviewed the imaging and agrees that the patient should be transferred to [facility] for surgical intervention. She is medically stable, does not appear to have a UTI, and is in agreement with transfer. We appreciate the help of [facility] urology service and wish the patient well. 45 minutes were spent on care for patient as well as arrangement of transfer and completion of this transfer summary. Home Meds and New Rx's Prescriptions: New tamsulosin 0.4 mg Capsule 0.4 mg PO DAILY Qty: 0 RF: 0 fentanyl citrate (PF) 50 mcg/mL Solution 75 mcg IVP Q1H PRN PRNQty: 0 RF: 0 Novolog Flexpen U-100 Insulin 100 unit/mL (3 mL) Insulin Pen 0 units subcut 0800,1200,1700 Qty: 0 RF: 0 gabapentin 100 mg capsule 100 mg PO TID Qty: 90 RF: 0 Continued levalbuterol tartrate [Xopenex HFA] 45 mcg/actuation HFA aerosol inhaler 2 puff Inhalation Q4H PRN Qty: 4 RF: 4 albuterol sulfate 2.5 mg /3 mL (0.083 %) solution for nebulization 2.5 mg Inhalation Q6H PRN Qty: 180 RF: 4 fluticasone propion-salmeterol [Advair Diskus] 500-50 mcg/dose blister with device 1 inh Inhalation BID Qty: 1 RF: 6 magnesium oxide 500 mg capsule 500 mg PO DAILY Qty: 90 RF: 3 montelukast [Singulair] 10 mg tablet 10 mg PO HS Qty: 90 RF: 3 ferrous sulfate 325 mg (65 mg iron) tablet 325 mg PO BID Qty: 60 RF: 4 cholecalciferol (vitamin D3) [Vitamin D3] 2,000 UNIT capsule 2,000 unit PO DAILY RF: 0 triamcinolone acetonide 15 GM cream 1 gm Topical daily prn Qty: 1 RF: 3 (DME) blood-glucose meter [[employer] UltraMini] 1 EACH kit 1 ea Miscellaneous DAILY Qty: 1 RF: 0 Lactase Fast Acting 9,000 UNIT tablet 9,000 unit PO AC & HS PRNQty: 90 RF: 0 (DME) lancets [TuneUpTouch UltraSoft Lancets] 1 EACH misc 1 ea Miscellaneous DAILY Qty: 100 RF: 3 sucralfate [Carafate] 1 GM tablet 1 g PO BID Qty: 180 RF: 3 esomeprazole magnesium [Nexium] 40 mg capsule,delayed release(DR/EC) 40 mg PO DAILY Qty: 90 RF: 3 cetirizine 10 mg tablet 10 mg PO DAILY Qty: 90 RF: 4 fluoxetine 20 mg capsule 20 mg PO DAILY Qty: 90 RF: 3 fluoxetine 40 mg capsule 40 mg PO DAILY Qty: 90 RF: 3 (DME) OneTouch Ultra Test strip 1 ea Miscellaneous DAILY Qty: 100 RF: 4 sucralfate [Carafate] 1 gram tablet 1 gm PO QACHS Qty: 120 RF: 2 acetaminophen 500 mg tablet 1,000 mg PO Q8H PRN (Reason: pain) Qty: 90 RF: 3 aspirin 81 mg Tablet,Delayed Release (Dr/Ec) 81 mg PO BID Qty: 60 RF: 0 Changed cephalexin 500 mg tablet 250 mg PO TID Qty: 90 RF: 3 Discontinued metformin 1,000 mg tablet 1,000 mg PO BID Qty: 180 RF: 3 rifampin [Rifadin] 300 mg capsule 600 mg PO DAILY Qty: 60 RF: 3 gabapentin 300 MG capsule 1 - 2 tab-cap PO TID Qty: 270 RF: 3 meloxicam 7.5 mg tablet 7.5 mg PO BID Qty: 60 RF: 3 Discharge Instructions Activity:: Activity as Tolerated Diet:: NPO Discharge Orders Discharge Orders: Discharge Order (Routine); Ordered 10/15/18 Ordered By: Nida Diaz Exam Narrative Exam Narrative: General: Pleasant obese female, A&Ox3, NAD HEENT: EOMI, MMM Heart: RRR, no m/r/g Lungs: CTAB GI: abdomen is soft, nontender, nondistended Extremities: no e/c/c BLE's DS: Data Vitals/I&O Vitals and I&O: Vital Signs Temperature 36.9 C 10/15/18 09:26 Temperature Source Tympanic 10/15/18 09:26 Pulse 76 10/15/18 10:43 Pulse Rhythm Regular 10/15/18 08:32 Respiratory Rate 18 10/15/18 10:43 Respiratory Effort Non-Labored 10/15/18 08:32 Respiratory Depth Normal 10/15/18 08:32 Respiratory Pattern Normal 10/15/18 08:32 Blood Pressure 119/71 10/15/18 09:26 Pulse Oximetry 97 10/15/18 10:43 Oxygen Delivery Method Room Air 10/15/18 10:43 Oxygen Flow Rate 0 10/15/18 10:43 Pain Level 7 10/15/18 10:33 Intake & Output 10/14/18 10/14/18 10/15/18 11:59 23:59 11:59 Intake Total 3313.334 / 3313.334 Output Total 250 / 250 Balance 3063.334 / 3063.334 Weight 84.822 kg 84.822 kg Intake: IV 2773.334 / 2773.334 Oral 540 / 540 Output: Urine 250 / 250 Other: Urine Color Yellow Urine Appearance Clear Urine Odor Normal Comment 3 particles/gravel noted when urine is strained, black in color Voiding Methods Toilet Completed studies during hospitalization [Text1]: CT abdomen/pelvis without contrast 10/14/18: Both proximal ureters have 6 mm diameter by 10 mm length stones causing mild hydronephrosis. Labs on day of discharge: Labs from last 24 hours 10/15/18 10/15/18 10/15/18 06:15 06:15 01:24 WBC 11.11 H RBC 3.64 L Hgb 11.8 L Hct 34.3 L MCV 94.2 MCH 32.4 MCHC 34.4 RDW 14.8 H Plt Count 311 MPV 10.6 Immature Gran % Neutrophils % Lymphocytes % Monocytes % Eosinophils % Basophils % Absolute Neutrophils Absolute Lymphocytes Absolute Monocytes Absolute Eosinophils Absolute Basophils PT INR APTT Sodium 141 Potassium 3.3 L Chloride 105 Carbon Dioxide 20.9 L Anion Gap 15.1 H BUN 22 H Creatinine 3.39 H Estimated GFR/1.73 m2 14.40 Glucose 136 H Calcium 8.1 L Magnesium Cancelled Total Bilirubin 0.4 AST 11 L ALT 15 Alkaline Phosphatase 66 Total Protein 7.2 Albumin 3.2 L Lipase TSH Cancelled Urine Color Urine Clarity Urine pH Ur Specific [place] Urine Protein Urine Ketones Urine Blood Urine Nitrite Urine Bilirubin Urine Urobilinogen Ur Leukocyte Esterase Urine RBC Urine WBC Ur Epithelial Cells Urine Crystals Urine Bacteria Urine Casts Urine Mucus Ur Culture Indicated? Urine Glucose 10/14/18 10/14/18 10/14/18 23:45 23:45 23:45 WBC 10.97 H RBC 3.93 L Hgb 12.7 Hct 36.6 MCV 93.1 MCH 32.3 MCHC 34.7 RDW 14.9 H Plt Count 318 MPV 9.9 Immature Gran % 0.3 Neutrophils % 73.1 Lymphocytes % 15.1 Monocytes % 10.1 Eosinophils % 1.3 Basophils % 0.1 Absolute Neutrophils 8.02 H Absolute Lymphocytes 1.66 Absolute Monocytes 1.11 H Absolute Eosinophils 0.14 Absolute Basophils 0.01 PT 10.1 INR 1.0 APTT 22.4 Sodium 140 Potassium 3.2 L Chloride 101 Carbon Dioxide 23.1 Anion Gap 15.9 H BUN 25 H Creatinine 3.64 H* Estimated GFR/1.73 m2 13.27 Glucose 159 H Calcium 9.0 Magnesium 1.7 L Total Bilirubin 0.5 AST 12 L ALT 20 Alkaline Phosphatase 66 Total Protein 7.9 Albumin 3.6 Lipase 115 TSH 1.49 Urine Color Urine Clarity Urine pH Ur Specific [place] Urine Protein Urine Ketones Urine Blood Urine Nitrite Urine Bilirubin Urine Urobilinogen Ur Leukocyte Esterase Urine RBC Urine WBC Ur Epithelial Cells Urine Crystals Urine Bacteria Urine Casts Urine Mucus Ur Culture Indicated? Urine Glucose 10/14/18 23:30 WBC RBC Hgb Hct MCV MCH MCHC RDW Plt Count MPV Immature Gran % Neutrophils % Lymphocytes % Monocytes % Eosinophils % Basophils % Absolute Neutrophils Absolute Lymphocytes Absolute Monocytes Absolute Eosinophils Absolute Basophils PT INR APTT Sodium Potassium Chloride Carbon Dioxide Anion Gap BUN Creatinine Estimated GFR/1.73 m2 Glucose Calcium Magnesium Total Bilirubin AST ALT Alkaline Phosphatase Total Protein Albumin Lipase TSH Urine Color Yellow Urine Clarity Clear Urine pH 5.5 Ur Specific [place] >= 1.030 H Urine Protein 30 H Urine Ketones Trace H Urine Blood Small H Urine Nitrite Negative Urine Bilirubin Negative Urine Urobilinogen 0.2 Ur Leukocyte Esterase Small H Urine RBC 0-2 Urine WBC 5-10 Ur Epithelial Cells Many Urine Crystals Negative Urine Bacteria Packed Urine Casts 0-2 hyaline Urine Mucus Negative Ur Culture Indicated? No/sq. contamination Urine Glucose Negative 10/14/18 23:30 Urine - Voided Urine Culture - Pending Preliminary micro results at discharge 10/14/18 23:30 Urine Culture - Pending Urine - Voided [facility] Medical History Abdominal discomfort, epigastric (Acute) Acute blood loss anemia (Acute) Asthma (Chronic) Candidal skin infection Depression with anxiety (Acute) Diabetes (Chronic 06/07/16) Gastroparesis GERD (gastroesophageal reflux disease) Hyperlipidemia (Chronic) Incisional hernia Migraine (Chronic 03/01/12) Obesity (Chronic) Organic sleep apnea, unspecified (Chronic) Surgical History ABDOMINAL WALL HERNIA REPAIR Arthroplasty of knee Cholecystectomy EGD - MAC (09/28/16) H/O surgical procedure (Chronic) Hernia Repair, Incisional (~09/2009) History of total right knee replacement (Acute) Hysterectomy, Laproscopic Infection of total left knee replacement (Acute 09/13/17) Nga Fundoplication 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 Maternal Grandfather Heart disease Paternal Grandfather Diabetes Heart disease Maternal Grandmother Diabetes Heart disease Paternal Grandmother Heart disease Hyperlipidemia Asthma Social History Smoking/Tobacco Use Status: Never Alcohol Intake: never Drug use: Never Caregiver/Support person: No Household members: spouse Housing: apartment Communication Needs: None Do you need help understanding health information?: Rarely Pets and animals: Yes Pets and animals: cat(s) and dog(s) Sexually active: No Do you think of yourself as: straight/heterosexual Current gender identity: female What is your relationship status?: How often do you talk on the phone with friends or family?: decline to answer How often do you get together with friends or relatives?: decline to answer How often do you attend baptism or amish services?: decline to answer Do you belong to any clubs or organized social groups?: no Panel score (0-1 are the most socially isolated patients): 1 Sita/Sabianist: No preference Special sita needs: No Seatbelt use: always Helmet use: No Drive intox or ride w/intox mechanic driver: No Do you feel safe at home: Yes
--- NOTE | 2018-10-15 12:27 | PDOC.CMPRO ---
- If Service Date Differs Date of service: 10/15/18 Time of Service: 12:27
--- NOTE | 2018-10-15 12:39 | PDOC.CMIN ---
- If Service Date Differs Date of service: 10/15/18 Time of Service: 12:39 Care Management Initial Assess REASON FOR HOSPITALIZATION:: Flank pain. RENAE and bilateral kidney stones. PAST MEDICAL HISTORY/PAST SURGICAL HISTORY:: Depression with anxiety (Acute). Abdominal discomfort, epigastric (Acute). Acute blood loss anemia (Acute). Asthma (Chronic). Hyperlipidemia (Chronic). Diabetes (Chronic 06/07/16). Infection of total left knee replacement (Acute 09/13/17). Migraine (Chronic 03/01/12). Obesity (Chronic). Organic sleep apnea, unspecified (Chronic). Candidal skin infection. GERD (gastroesophageal reflux disease). Gastroparesis. Incisional hernia. 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 H/O surgical procedure (Chronic). ABDOMINAL WALL HERNIA REPAIR. Arthroplasty of knee. Cholecystectomy. EGD - MAC (09/28/16). Hernia Repair, Incisional (~09/2009). Hysterectomy, Laproscopic. Nga Fundoplication. Tonsillectomy (06/14/10) PREVIOUS FUNCTIONAL STATUS/SOCIAL/FAMILY SUPPORTS:: Barbara lives in an apartment in [facility] with her , Rishi. She is independent at baseline, she drives and manages ADL's. CURRENT FUNCTIONAL STATUS:: Barbara was sitting up in her bed when CM entered the room. Her , Rishi, was sitting in a chair in the room. She stated that she was feeling much better today and her pain is under control. ADVANCE DIRECTIVES:: On file. [facility] Mckinley Chapman [phone] Has patient been provided with information about the portal?: Yes Did the patient sign up for the portal?: No (Not interested ) CODE STATUS:: Full Code INSURANCE COVERAGE / FINANCIAL ISSUES:: MCR/Financial Assist 100% CURRENT HOME/COMMUNITY SERVICES/EQUIPMENT:: Currently Barbara does not have services in the community. She has crutches, a walker and a wheel chair at home. PRIMARY CARE PHYSICIAN:: Gissell Davis NP POTENTIAL DISCHARGE NEEDS:: Anticipate transfer for Urology consult at [facility]. Dr. Montana not available this week. PATIENT/FAMILY EDUCATION NEEDS:: Review DC instructions, any limitations, and ongoing DC planning discussion. Discuss 'Ask Me Three' ANTICIPATED BARRIERS TO DISCHARGE:: None identified at this time. TRANSPORTATION:: Private vehicle, her Rishi will drive her. PLAN:: Barbara will transfer to [facility] for urology consult. Barbara will transfer by ambulance, coordinated by nurse irrigation supervisor.
--- NOTE | 2018-10-15 16:25 | CHAPLAIN ---
Barbara told me that she may be transferred to another hospital because Dr. Montana isn't here. She was frustrated about this because her Rishi had knee surgery last week and I'm suppose to be taking care of him. Barbara and I know each other from her multiple admissions.
== END 2018-10-15 13:27 | disposition short-term general hospital (02) | DRG 694 ==
LOC: ER 10-15 01:26 → MS 10-15 02:09
PROVIDERS: Admitting Provider Family Medicine; Emergency Provider Emergency Medicine; Visit Provider Internal Medicine
DX: N13.2 Hydronephrosis with renal and ureteral calculous obstruction (principal); N17.9 Acute kidney failure, unspecified; E11.9 Type 2 diabetes mellitus without complications; Z79.2 Long term (current) use of antibiotics; G47.33 Obstructive sleep apnea (adult) (pediatric); K21.9 Gastro-esophageal reflux disease without esophagitis
CPT/HCPCS: 36415; 80053; 83690; 85027; 94640; 96361; 96374; 96375; 96376; 99223; 99239; 99285; 74176; 81003; 81015; 83735; 84443; 85025; 85610; 85730; 87086; 99236; 99284; J2405; J3010; J3490; J7620

== ENCOUNTER 2018-10-26 03:03 | Outpatient (CLI) | payer MEDICARE, SELFPAY ==
--- NOTE | 2018-10-26 12:39 | DI.CT_ITS ---
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 The patient reportedly has findings suggestive of patellar clunk syndrome. There is a total knee joint replacement in position. There is artifact at the level of the metallic components. Evaluation of the quadriceps tendon shows no definite fibrous nodule by CT criteria. There does appear to be an effusion in the suprapatellar bursa. CONCLUSION: No definite findings suggesting patellar clunk syndrome. If there is a high clinical suspicion of patellar clunk, MRI could be obtained for further evaluation.
== END 2018-10-26 03:23 ==
PROVIDERS: Visit Provider Student in an Organized Health Care Education/Training Program
DX: M25.861 Other specified joint disorders, right knee (principal); Z96.651 Presence of right artificial knee joint; M25.461 Effusion, right knee
CPT/HCPCS: 73700

== ENCOUNTER 2018-11-08 01:27 | Outpatient (CLI) | payer MEDICARE, SELFPAY | END 2018-11-08 01:47 | PROVIDERS: Visit Provider Urology | DX: R39.89 Other symptoms and signs involving the genitourinary system (principal) | CPT/HCPCS: 87086 ==

== ENCOUNTER → 2018-11-12 10:39 | Outpatient (BNVA) | payer MEDICARE, SELFPAY | PROVIDERS: Visit Provider Student in an Organized Health Care Education/Training Program | DX: M25.861 Other specified joint disorders, right knee (principal); T84.54XD Infection and inflammatory reaction due to internal left knee prosthesis, subsequent encounter; M25.462 Effusion, left knee | CPT/HCPCS: 20610; 99214 ==

== ENCOUNTER 2018-11-12 12:28 | Outpatient (REF) | payer MEDICARE, SELFPAY ==
[2018-11-12 13:33] LABS: Clarity CLEAR; Mononuclear Cells 58 % (0-0); Nucleated Cells 297 /MM3 (0-0); Polynuclear Cells 42 % (0-0); Source L KNEE
== END 2018-11-12 12:48 ==
LOC: LBN 12:28
PROVIDERS: Visit Provider Student in an Organized Health Care Education/Training Program
DX: T84.54XD Infection and inflammatory reaction due to internal left knee prosthesis, subsequent encounter (principal)
CPT/HCPCS: 87070; 87205; 89051

== ENCOUNTER 2018-12-12 10:12 | Day surgery (SDC) | payer MEDICARE, SELFPAY ==
--- NOTE | 2018-12-12 07:34 | PDOC.DSDIS_ITS ---
Discharge Plan Disposition Patient Disposition: HOME Condition: Good Discharge Details Reason For Visit: Patellar clunk of the right knee Attending Provider: Raheel Gongora Primary Care Provider: Gissell Davis Home Meds and New Rx's Prescriptions: New hydrocodone-acetaminophen 5-325 mg tablet 1 tab PO Q6H PRN (Reason: severe pain) Qty: 6 RF: 0 ibuprofen 600 mg tablet 600 mg PO TID PRN (Reason: pain) Qty: 60 RF: 3 Continued levalbuterol tartrate [Xopenex HFA] 45 mcg/actuation HFA aerosol inhaler 2 puff Inhalation Q4H PRN Qty: 4 RF: 4 albuterol sulfate 2.5 mg /3 mL (0.083 %) solution for nebulization 2.5 mg Inhalation Q6H PRN Qty: 180 RF: 4 fluticasone propion-salmeterol [Advair Diskus] 500-50 mcg/dose blister with device 1 inh Inhalation BID Qty: 1 RF: 6 magnesium oxide 500 mg capsule 500 mg PO DAILY Qty: 90 RF: 3 montelukast [Singulair] 10 mg tablet 10 mg PO HS Qty: 90 RF: 3 ferrous sulfate 325 mg (65 mg iron) tablet 325 mg PO BID Qty: 60 RF: 4 cholecalciferol (vitamin D3) [Vitamin D3] 2,000 UNIT capsule 2,000 unit PO DAILY RF: 0 triamcinolone acetonide 15 GM cream 1 gm Topical daily prn Qty: 1 RF: 3 (DME) blood-glucose meter [[employer]Touch UltraMini] 1 EACH kit 1 ea Miscellaneous DAILY Qty: 1 RF: 0 Lactase Fast Acting 9,000 UNIT tablet 9,000 unit PO AC & HS PRNQty: 90 RF: 0 (DME) lancets [OneTouch UltraSoft Lancets] 1 EACH misc 1 ea Miscellaneous DAILY Qty: 100 RF: 3 sucralfate [Carafate] 1 GM tablet 1 g PO BID Qty: 180 RF: 3 esomeprazole magnesium [Nexium] 40 mg capsule,delayed release(DR/EC) 40 mg PO DAILY Qty: 90 RF: 3 cetirizine 10 mg tablet 10 mg PO DAILY Qty: 90 RF: 4 fluoxetine 20 mg capsule 20 mg PO DAILY Qty: 90 RF: 3 fluoxetine 40 mg capsule 40 mg PO DAILY Qty: 90 RF: 3 (DME) OneTouch Ultra Test strip 1 ea Miscellaneous DAILY Qty: 100 RF: 4 sucralfate [Carafate] 1 gram tablet 1 gm PO QACHS Qty: 120 RF: 2 acetaminophen 500 mg tablet 1,000 mg PO Q8H PRN (Reason: pain) Qty: 90 RF: 3 tamsulosin 0.4 mg Capsule 0.4 mg PO DAILY Qty: 0 RF: 0 fentanyl citrate (PF) 50 mcg/mL Solution 75 mcg IVP Q1H PRN PRNQty: 0 RF: 0 Novolog Flexpen U-100 Insulin 100 unit/mL (3 mL) Insulin Pen 0 units subcut 0800,1200,1700 Qty: 0 RF: 0 gabapentin 100 mg capsule 100 mg PO TID Qty: 90 RF: 0 cephalexin 500 mg tablet 250 mg PO TID Qty: 90 RF: 3 metformin 500 mg Tablet 500 mg PO BID RF: 0 aspirin 81 mg Tablet,Delayed Release (Dr/Ec) 81 mg PO BID Qty: 60 RF: 0 Discharge Instructions Additional Instructions: Knee Discharge Instructions Activity: You should begin moving as soon as possible. You may work on flexion but also equally maintain extension. You may bear weight as tolerated, using crutches only for support/comfort. You should apply ice to help with swelling and elevate when possible (especially in the first few days). Dressings: The knee dressing may come down after 48 hours. You may shower and get the wound wet at that time. You should keep the wounds covered with a bandaid until follow-up. Medications: - Rarely does this require any stronger pain medications. You have been prescribed a few pills of a narcotic pain medications (Hydrocodone) which should only be used as needed for breakthrough pain. - Recommend to take up to 1000mg of Acetaminophen (Tylenol) and 600mg of Ibuprofen (Advil) every 8 hours as needed. These larger strength tablets of Ibuprofen were called in but you also may use [id number]. Follow-up: 7-10 days Stand Alone Forms: [facility]throsc[facility] Referrals: Raheel Gongora MD [ [facility] STAFF PHYSICIAN] - Equipment/Supplies: Partial Weight Bearing Crutches Activity:: Activity as Tolerated Remove Dressings/Wound Care:: 48 hours Shower/Bathe:: 48 hours Diet:: As Tolerated Discharge Orders Discharge Orders: Discharge Order (Routine); Ordered 12/12/18 Ordered By: Marilee Coughlin DS: Diagnosis Discharge Diagnosis (1) Patellar clunk syndrome of right knee: Status: Acute
[2018-12-12 10:27] VITALS: BP 136/81; PULSE 74; RESP 18; TEMP 36.6; O2SAT 97
[2018-12-12] MEDS: Lactated Ringers 1,000 ML 80 ML IV (10:45)
[2018-12-12] MEDS: ceFAZolin 2 GM/50 ML BAG IVPB (11:00)
[2018-12-12] MEDS: Bupivacaine 0.5% Pres-Free 30 ML VIAL (11:59)
[2018-12-12 12:15] VITALS: BP 145/78; PULSE 81; RESP 19; TEMP 36.7; O2SAT 95
[2018-12-12 12:20] VITALS: BP 146/80; PULSE 81; RESP 21; TEMP 36.7; O2SAT 95
[2018-12-12 12:25] VITALS: BP 132/76; PULSE 79; RESP 17; TEMP 36.7; O2SAT 96
[2018-12-12 13:10] VITALS: BP 124/76; PULSE 81; RESP 18; TEMP 36.8; O2SAT 97
--- NOTE | 2018-12-13 06:53 | W.PM.OP ---
Date of service: 12/12/18 Time of Service: 13:53 Operative Note Operative Note DATE OF PROCEDURE: 12/12/18 PRE-OP DIAGNOSIS: Patellar clunk and synovitis after right knee replacement POST-OP DIAGNOSIS: same PROCEDURE: Right knee arthroscopic synovectomy SURGEON: Raheel Gongora ANESTHESIA: GETA ESTIMATED BLOOD LOSS: 0 PATHOLOGY: none sent COMPLICATIONS: None Patient was transported to: PACU Patient's condition: stable Indications: I have seen Fay in clinic for symptoms crepitus and pain associated with synovitis and patellar clunk after a right knee replacement. Nonoperative measures were exhausted but disability and pain persisted. I discussed knee arthroscopy with synovectomy with the patient. I reviewed the risks of the procedure to include, but not limited to, bleeding, infection, pain, stiffness, damage to nerves or vessels, recurrence, blood clot. Despite these risks, the patient elected to proceed. Findings: A diagnostic arthroscopy demonstrated significant thickened synovium around the patella, mostly superiorly, with 2 loose bony fragments from the superior lateral aspect of the patella. Procedure Description: Fay was greeted in the preoperative holding area where the correct side was identified and marked. The consent was reviewed with the patient and signed. The history and physical was updated. All questions were answered. Fay was taken back to the operating room. The patient was placed into the supine position on the operating room table. A nonsterile tourniquet was placed high onto the leg but not used. All bony prominences were well padded. Prophylactic antibiotics in the form of cefazolin were administered. The right leg was then prepped with Chloraprep and draped in a standard fashion with stockinette and extremity drape. A timeout to confirm correct identity, side and site, procedure, allergies, anesthesia, and medical concerns was performed. The leg was placed into a pneumatic leg browne, SPIDER2. A standard lateral portal was made at the lateral border of the patella tendon in line with the inferior pole of the patella, soft spot. The skin and deep tissue was incised sharply and the blunt trochar was inserted atraumatically. A diagnostic arthroscopy was performed and the findings are listed above. The suprapatellar pouch had mild inflammatory changes and some mild adhesions between the anterior femur and quadriceps mechanism. The patellofemoral articulation showed good tracking. However, there was notable amounts of synovium and synovitis around the patella. There was some mild inflammatory change seen in both medial lateral gutters. The medial gutter had some interposed synovium which was resected after establishing superolateral portal. Resection of this hypertrophic synovium was performed using a shaver and electrocautery. Once the medial lateral gutters were open attention was turned back to the patella. The hypertrophic synovium was removed. 2 loose bone fragments were seen attached synovium in the superolateral aspect of the patella. The patellar button was viewed from multiple viewpoints and showed no signs of loosening. The bony fragments were removed with a shaver. Synovium was circumferentially resected from around the patella with electrocautery. The knee was taken through range of motion and sewed smooth tracking without impingement of synovitis. Some of the adhesions in the anterior subpatellar pouch were released. The knee was thoroughly irrigated with the arthroscopic fluid on high flow and pressure. Inflow was stopped and excess fluid was removed. The wounds were closed with 4-0 Nylon. They were dressed with Xeroform, 4x4 gauze, ABD pad, Kerlix and an CHICHO wrap. A cryo-cuff was applied. The patient tolerated the procedure well and was returned to the Same Day Surgery area in a stable condition suffering no known complication.
== END 2018-12-12 13:40 | disposition home or self-care (01) ==
PROVIDERS: Visit Provider Student in an Organized Health Care Education/Training Program
PROC: (CPT 29870; principal; 2018-12-12 10:15)
DX: T84.84XA Pain due to internal orthopedic prosthetic devices, implants and grafts, initial encounter (principal); G89.18 Other acute postprocedural pain; Z96.651 Presence of right artificial knee joint; T84.89XA Other specified complication of internal orthopedic prosthetic devices, implants and grafts, initial encounter; M25.861 Other specified joint disorders, right knee; M65.861 Other synovitis and tenosynovitis, right lower leg; M23.41 Loose body in knee, right knee; K21.9 Gastro-esophageal reflux disease without esophagitis; J45.909 Unspecified asthma, uncomplicated; G47.30 Sleep apnea, unspecified
CPT/HCPCS: 29876; 29884; 29874; J0690; J1100; J1885; J2405

== ENCOUNTER 2018-12-20 11:15 | Outpatient (CLI) | payer MEDICARE, SELFPAY | END 2018-12-20 11:35 | DX: Z47.89 Encounter for other orthopedic aftercare (principal); M25.861 Other specified joint disorders, right knee; E11.9 Type 2 diabetes mellitus without complications; Z79.84 Long term (current) use of oral hypoglycemic drugs ==

== ENCOUNTER 2018-12-24 08:17 | Outpatient (CLI) | payer MEDICARE, SELFPAY | END 2018-12-24 08:37 | PROVIDERS: Visit Provider Urology | DX: R39.89 Other symptoms and signs involving the genitourinary system (principal) | CPT/HCPCS: 87086 ==

== ENCOUNTER 2019-01-18 08:22 | Outpatient (CLI) | payer MEDICARE, SELFPAY | END 2019-01-18 08:42 | PROVIDERS: Visit Provider Urology | DX: R39.89 Other symptoms and signs involving the genitourinary system (principal) | CPT/HCPCS: 87086 ==

== ENCOUNTER 2019-03-06 00:52 | Outpatient (CLI) | payer MEDICARE, SELFPAY ==
[2019-03-06 10:51] LABS: Hemoglobin A1C 6.8 % (3.8-5.6)
[2019-03-06 10:53] LABS: Calculated LDL 168 mg/dL; Cholesterol 270 mg/dL (<200); HDL Cholesterol 57 mg/dL (40-60); Triglyceride 229 mg/dL (<150)
== END 2019-03-06 01:12 ==
DX: E11.9 Type 2 diabetes mellitus without complications (principal)
CPT/HCPCS: 36415; 80061; 83036

== ENCOUNTER → 2019-03-25 09:35 | Outpatient (BNVA) | payer MEDICARE, SELFPAY | PROVIDERS: Visit Provider Student in an Organized Health Care Education/Training Program | DX: M70.52 Other bursitis of knee, left knee (principal); Z96.652 Presence of left artificial knee joint; E11.9 Type 2 diabetes mellitus without complications; Z79.4 Long term (current) use of insulin | CPT/HCPCS: 99213 ==

== ENCOUNTER 2019-05-06 11:22 | Outpatient (CLI) | payer MEDICARE, SELFPAY ==
--- NOTE | 2019-05-06 10:45 | DI.RAD_ITS ---
EXAM: XR KNEE LT 3V AP,LAT,ANNE CLINICAL HISTORY: eval L knee pain. TECHNIQUE: 2D digital imaging was performed. COMPARISON: XR knee LT 2V AP,lat from 07/09/2018 FINDINGS: BONES: No acute fracture is present. No bony destructive lesion is seen. JOINTS: Stable postsurgical changes of a left knee replacement are present. The proximal aspect of t he femoral prosthesis and the distal aspect of the tibial prosthesis are not visualized on the examin ation. No joint effusion is seen. SOFT TISSUE: Normal. IMPRESSION: Left TKR. DATA REPOSITORY: RADIATION DOSE DELIVERED:
--- NOTE | 2019-05-06 10:45 | DI.RAD_ITS ---
EXAM: XR KNEE RT 3V AP,LAT,ANNE CLINICAL HISTORY: f/u R knee pain. TECHNIQUE: 2D digital imaging was performed. COMPARISON: BONE LENGTH from 07/19/2017 FINDINGS: BONES: No acute fracture is present. No bony destructive lesion is seen. JOINTS: The knee is normally aligned. No joint effusion is seen. Stable postsurgical changes of a rig ht total knee replacement. SOFT TISSUE: Normal. IMPRESSION: Stable right TKR. DATA REPOSITORY: RADIATION DOSE DELIVERED:
== END 2019-05-06 11:42 ==
PROVIDERS: Visit Provider Student in an Organized Health Care Education/Training Program
DX: M25.561 Pain in right knee (principal); Z96.653 Presence of artificial knee joint, bilateral; M25.562 Pain in left knee; T84.84XD Pain due to internal orthopedic prosthetic devices, implants and grafts, subsequent encounter; M25.861 Other specified joint disorders, right knee
CPT/HCPCS: 73562; 99214; 73560

== ENCOUNTER 2019-07-26 10:28 | Outpatient (CLI) | payer MEDICARE, SELFPAY ==
--- NOTE | 2019-07-26 10:00 | DI.RAD_ITS ---
EXAM: XR KNEE LT 3V AP,LAT,ANNE CLINICAL HISTORY: eval L knee pain, s/p TKA and fall TECHNIQUE: COMPARISON: CR XR KNEE RT 3V AP,LAT,ANNE from 05/06/2019 FINDINGS: Three views were obtained and show total knee joint replacement in position. There is no evidence of acute fracture. Please note that the proximal and distal portions of the femoral and tibial arthrop lasty components are nonvisualized. IMPRESSION:
== END 2019-07-26 10:48 ==
PROVIDERS: Visit Provider Student in an Organized Health Care Education/Training Program
DX: M25.562 Pain in left knee (principal); Z96.652 Presence of left artificial knee joint; Z47.1 Aftercare following joint replacement surgery; T84.84XD Pain due to internal orthopedic prosthetic devices, implants and grafts, subsequent encounter; E11.9 Type 2 diabetes mellitus without complications
CPT/HCPCS: 73562; 99214

== ENCOUNTER 2019-08-19 08:06 | Outpatient (CLI) | payer MEDICARE, SELFPAY ==
[2019-08-20 00:14] LABS: COVID-19 RT-PCR UVMMC Result Negative (Negative)
== END 2019-08-19 08:26 ==
PROVIDERS: Visit Provider Student in an Organized Health Care Education/Training Program
DX: Z03.818 Encounter for observation for suspected exposure to other biological agents ruled out (principal); Z01.818 Encounter for other preprocedural examination
CPT/HCPCS: U0003

== ENCOUNTER 2019-08-21 09:17 | Day surgery (SDC) | payer MEDICARE, SELFPAY ==
[2019-08-21] VITALS (7 sets, daily range): BP systolic 113–150; BP diastolic 70–88; PULSE 58–73; RESP 16–21; TEMP 36.2–36.6; O2SAT 98–100
[2019-08-21] MEDS: Lactated Ringers 1,000 ML 80 ML IV (09:45)
--- NOTE | 2019-08-21 09:57 | W.PM.DSUDISC ---
Discharge Plan Disposition Patient Disposition: HOME Condition: Good Discharge Details Reason For Visit: painful left TKA; patellar clunk Attending Provider: Raheel Gongora Primary Care Provider: Gissell Davis Home Meds and New Rx's Prescriptions: New hydrocodone-acetaminophen 5-325 mg tablet 1 tab PO Q6H PRN (Reason: severe pain) Qty: 6 RF: 0 acetaminophen 500 mg tablet 500 mg PO Q6H PRN (Reason: pain) Qty: 60 RF: 2 ibuprofen 600 mg tablet 600 mg PO TID PRN (Reason: pain) Qty: 60 RF: 2 Continued albuterol sulfate 2.5 mg /3 mL (0.083 %) solution for nebulization 2.5 mg Inhalation Q6H PRN Qty: 180 RF: 4 fluticasone propion-salmeterol [Advair Diskus] 500-50 mcg/dose blister with device 1 inh Inhalation BID Qty: 1 RF: 6 magnesium oxide 500 mg capsule 500 mg PO DAILY Qty: 90 RF: 3 montelukast [Singulair] 10 mg tablet 10 mg PO HS Qty: 90 RF: 3 cholecalciferol (vitamin D3) [Vitamin D3] 2,000 UNIT capsule 2,000 unit PO DAILY RF: 0 triamcinolone acetonide 15 GM cream 1 gm Topical daily prn Qty: 1 RF: 3 (DME) blood-glucose meter [OneTouch UltraMini] 1 EACH kit 1 ea Miscellaneous DAILY Qty: 1 RF: 0 Lactase Fast Acting 9,000 UNIT tablet 9,000 unit PO AC & HS PRNQty: 90 RF: 0 (DME) lancets [OneTouch UltraSoft Lancets] 1 EACH misc 1 ea Miscellaneous DAILY Qty: 100 RF: 3 cetirizine 10 mg tablet 10 mg PO DAILY Qty: 90 RF: 4 (DME) blood sugar diagnostic [OneTouch Ultra Test] strip 1 ea Miscellaneous DAILY Qty: 100 RF: 4 sucralfate [Carafate] 1 gram tablet 1 gm PO QACHS Qty: 120 RF: 2 atorvastatin 10 mg tablet 10 mg PO QPM Qty: 90 RF: 3 levalbuterol tartrate [Xopenex HFA] 45 mcg/actuation HFA aerosol inhaler 2 puff Inhalation Q4H PRN Qty: 4 RF: 4 Compounded Pain Cream 2 gm transdermal TID PRN Qty: 360 RF: 6 ferrous sulfate 325 mg (65 mg iron) tablet 325 mg PO BID Qty: 60 RF: 12 esomeprazole magnesium [Nexium] 40 mg capsule,delayed release(DR/EC) 40 mg PO DAILY Qty: 90 RF: 3 fluoxetine 20 mg capsule 20 mg PO DAILY Qty: 90 RF: 3 fluoxetine 40 mg capsule 40 mg PO DAILY Qty: 90 RF: 3 gabapentin 100 mg capsule 100 mg PO TID Qty: 90 RF: 0 cephalexin 500 mg tablet 250 mg PO TID Qty: 90 RF: 3 metformin 500 mg Tablet 500 mg PO BID RF: 0 Discontinued acetaminophen 500 mg tablet 1,000 mg PO Q8H PRN (Reason: pain) Qty: 90 RF: 3 Discharge Instructions Additional Instructions: Knee Discharge Instructions Activity: You should begin moving as soon as possible. You may work on flexion but also equally maintain extension. You may bear weight as tolerated, using crutches only for support/comfort. You should apply ice to help with swelling and elevate when possible (especially in the first few days). Dressings: The knee dressing may come down after 48 hours. You may shower and get the wound wet at that time. You should keep the wounds covered with a bandaid until follow-up. Medications: - Rarely does this require any stronger pain medications. You have been prescribed a few pills of a narcotic pain medications (Hydrocodone) which should only be used as needed for breakthrough pain. - Recommend to take up to 1000mg of Acetaminophen (Tylenol) and 600mg of Ibuprofen (Advil) every 8 hours as needed. These larger strength tablets of Ibuprofen were called in but you also may use [id number]. Follow-up: 7-10 days Stand Alone Forms: [facility] Knee Arthroscopy Referrals: Raheel Gongora MD [ [facility] STAFF PHYSICIAN] - Equipment/Supplies: Partial Weight Bearing Crutches Activity:: Activity as Tolerated Remove Dressings/Wound Care:: 72 hours Shower/Bathe:: 72 hours Diet:: As Tolerated Discharge Orders Discharge Orders: Discharge Order (Routine); Ordered 08/21/19 Ordered By: Marilee Coughlin DS: Diagnosis Discharge Diagnosis (1) Painful total knee replacement, left: Status: Acute
[2019-08-21] MEDS: ceFAZolin 2 GM/50 ML BAG IVPB (10:18)
[2019-08-21] MEDS: Bupivacaine 0.5% Pres-Free 30 ML VIAL (11:19)
[2019-08-21] MEDS: fentaNYL 100 MCG/2 ML VIAL IVP (12:00)
[2019-08-21] MEDS: oxyCODONE 5 MG TAB PO (13:07)
--- NOTE | 2019-08-22 07:05 | ROE_ITS ---
Date of service: 08/21/19 Time of Service: 12:05 Operative Note Operative Note DATE OF PROCEDURE: 08/21/19 PRE-OP DIAGNOSIS: Left knee synovitis POST-OP DIAGNOSIS: same PROCEDURE: Left knee arthroscopic synovectomy SURGEON: Raheel Gongora ANESTHESIA: GETA ESTIMATED BLOOD LOSS: 0 PATHOLOGY: none sent COMPLICATIONS: None Patient was transported to: PACU Patient's condition: stable Indications: I have seen Fay in clinic pain, crunching, and crepitus of the left knee. She has had multiple procedures the left knee and feels that in general the knee is doing well except for this symptom and sensation. Nonoperative measures were exhausted but disability and pain persisted. I discussed knee arthroscopy with synovectomy with the patient. I reviewed the risks of the procedure to include, but not limited to, bleeding, infection, pain, stiffness, damage to nerves or vessels, recurrence, blood clot. Despite these risks, the patient elected to proceed. Findings: A diagnostic arthroscopy was performed which showed no significant pathologic findings. There was some notable scar tissue seen laterally. The suprapatellar pouch was mostly open and the medial compartment was relatively free of significant scarring. An aggressive resection was performed of any remnant scar tissue, focusing laterally as this was her location of symptoms. Procedure Description: Fay was greeted in the preoperative holding area where the correct side was identified and marked. The consent was reviewed with the patient and signed. The history and physical was updated. All questions were answered. Fay was taken back to the operating room. The patient was placed into the supin e position on the operating room table. A nonsterile tourniquet was placed high onto the leg but not used. All bony prominences were well padded. Prophylactic antibiotics in the form of cefazolin were administered. The left leg was then prepped with Chloraprep and draped in a standard fashion with stockinette and extremity drape. A timeout to confirm correct identity, side and site, procedure, allergies, anesthesia, and medical concerns was performed. The leg was placed into a pneumatic leg browne, SPIDER2. A standard lateral portal was made at the lateral border of the patella tendon in line with the inferior pole of the patella, soft spot. The skin and deep tissue was incised sharply and the blunt trochar was inserted atraumatically. A diagnostic arthroscopy was performed and the findings are listed above. The suprapatellar pouch had no significant inflammatory change. Was noted to be some thickening of the scar tissue on the lateral side of the patella and extending to the lateral gutter. A medial portal was then established under spinal needle localization and visualization. I was able debride some of this tissue on the anterior aspect of the knee to get visualization of the anterolateral aspect of the knee. She to be no significant inflammatory changes seen. There is no signs of infection. There is no signs of loosening. Debridement was carried out with electrocautery and with a shaver throughout the anterior portion of the knee to get visualization of the entire tibial component. This was then worked around laterally to start clearing at the lateral gutter. A superolateral portal was then established once again with spinal needle localization. Sharp knife was carried through all the way into the knee joint. Once again, using electrocautery and shaver I debrided the lateral aspect the knee starting the patella working around to the lateral gutter to re-create the space. There was thickening of tissue over the lateral side with some debris type components. This was completely resected so that the entire lateral gutter was visualized. I made sure not to debride too much underside the patella so she has no patellar button but did debride some of the surrounding tissue. The arthroscope was brought back into the suprapatellar pouch and the leg was in full extension. The knee was thoroughly irrigated with the arthroscopic fluid on high flow and pressure. Inflow was stopped and excess fluid was removed. The wounds were closed with 4-0 Nylon. The knee and the portal sites were injected with 0.5% Vivacaine. They were dressed with Xeroform, 4x4 gauze, ABD pad, Kerlix and an CHICHO wrap. A cryo-cuff was applied. The patient tolerated the procedure well and was returned to the Same Day Surgery area in a stable condition suffering no known complication.
== END 2019-08-21 13:31 | disposition home or self-care (01) ==
PROVIDERS: Visit Provider Student in an Organized Health Care Education/Training Program
PROC: (CPT 29870; principal; 2019-08-21 11:00)
DX: T84.84XD Pain due to internal orthopedic prosthetic devices, implants and grafts, subsequent encounter (principal); M65.88 Other synovitis and tenosynovitis, other site; Z96.652 Presence of left artificial knee joint; K21.9 Gastro-esophageal reflux disease without esophagitis; E11.9 Type 2 diabetes mellitus without complications; G47.33 Obstructive sleep apnea (adult) (pediatric)
CPT/HCPCS: 29876; E0114; J0131; J0690; J1100; J1885; J2001; J2405; J2704; J3010

== ENCOUNTER 2019-08-29 10:45 | Outpatient (CLI) | payer MEDICARE, SELFPAY | END 2019-08-29 11:05 | PROVIDERS: Visit Provider Student in an Organized Health Care Education/Training Program | DX: Z47.89 Encounter for other orthopedic aftercare (principal) ==

== ENCOUNTER → 2019-09-26 10:15 | Outpatient (BNVA) | payer MEDICARE, SELFPAY | PROVIDERS: Visit Provider Student in an Organized Health Care Education/Training Program | DX: Z47.1 Aftercare following joint replacement surgery (principal); Z96.652 Presence of left artificial knee joint; T84.84XD Pain due to internal orthopedic prosthetic devices, implants and grafts, subsequent encounter ==

== ENCOUNTER 2019-10-01 02:47 | Outpatient (CLI) | payer MEDICARE, SELFPAY ==
[2019-10-01 09:41] LABS: Hemoglobin A1C 7.4 % (3.8-5.6)
[2019-10-01 10:19] LABS: ALT 32 U/L (14-59); AST 40 U/L (15-37); Albumin 3.5 g/dL (3.4-5.0); Alkaline Phosphatase 60 U/L (46-116); Anion Gap 7.3 mmol/L (3-11); BUN 15 mg/dL (7-18); Bilirubin, Total 1.3 mg/dL (0.2-1.0); CO2 27.7 mmol/L (21.0-32.0); CREATININE 0.95 mg/dL (0.55-1.02); Chloride 103 mmol/L (98-107); Glucose 195 mg/dL (74-106); Potassium 4.2 mmol/L (3.5-5.1); Sodium 138 mmol/L (136-145)
== END 2019-10-01 03:07 ==
DX: E11.9 Type 2 diabetes mellitus without complications (principal); K21.0 Gastro-esophageal reflux disease with esophagitis; K31.84 Gastroparesis; N17.9 Acute kidney failure, unspecified; E66.9 Obesity, unspecified
CPT/HCPCS: 36415; 80053; 83036

== ENCOUNTER 2019-10-14 00:45 | Outpatient (CLI) | payer MEDICARE, SELFPAY ==
--- NOTE | 2019-10-14 08:14 | DI.MAMMO_ITS ---
EXAM: MAMMO SCREENING CLINICAL HISTORY: screening.Z12.39 TECHNIQUE: Mammograms were interpreted according to the usual protocol including computer analysis w Novel CAD system, tomosynthesis and C-view imaging. COMPARISON: FINDINGS: The breasts are of moderate density with fairly symmetrical distribution fibroglandular tissue. No d ominant mass or clumped microcalcification is identified in either breast. The examination is compar ed with previous examinations including August 2018 and there has been no gross interval change in appe arance in comparison with the prior studies. IMPRESSION: No specific evidence of malignancy at this time. Routine screening examinations are suggested at ye liya intervals in this age group according to the ACS ACR guidelines. BI-RADS Cat 1 - Negative Breast Density - Category B - Scattered areas of fibroglandular density
== END 2019-10-14 01:05 ==
DX: Z12.31 Encounter for screening mammogram for malignant neoplasm of breast (principal); R92.2 Inconclusive mammogram
CPT/HCPCS: 77063; 77067

== ENCOUNTER 2019-10-18 04:09 | Outpatient (CLI) | payer MEDICARE, SELFPAY ==
--- NOTE | 2019-10-18 08:21 | DI.US_ITS ---
EXAM: US SOFT TISSUE EXTREMITY CLINICAL HISTORY: golf size soft tissue movable mass in posterior upPER ARM,R22.31,SWELLING TECHNIQUE: Ultrasound performed using standard protocol. COMPARISON: US US LOWER EXTREMITY VASCULAR LT from 02/05/2018 FINDINGS: Ultrasound examination of a palpable mass of the posterior aspect of the right upper extremity superi ayo was performed and shows a 5 x 0.8 x 4 cm in diameter mass which is fairly well circumscribed and ovoid and isoechoic with surrounding tissue. This has fairly smooth margins. There is minimal incr eased vascular flow and question minimal deformity of internal architecture. 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 Additional evaluation with MRI recommended to confirm this diagnosis. IMPRESSION: DATA REPOSITORY:
== END 2019-10-18 04:29 ==
DX: R22.31 Localized swelling, mass and lump, right upper limb (principal)
CPT/HCPCS: 76881

== ENCOUNTER → 2019-10-25 09:59 | Outpatient (BNVA) | payer MEDICARE, SELFPAY | PROVIDERS: Visit Provider Student in an Organized Health Care Education/Training Program | DX: Z47.89 Encounter for other orthopedic aftercare (principal) ==

== ENCOUNTER → 2019-11-14 10:46 | Outpatient (BNVA) | payer MEDICARE, SELFPAY | PROVIDERS: Visit Provider Physical Therapy Assistant | DX: Z12.11 Encounter for screening for malignant neoplasm of colon (principal); E11.9 Type 2 diabetes mellitus without complications ==

== ENCOUNTER → 2019-12-02 09:52 | Outpatient (BNVA) | payer MEDICARE, SELFPAY | PROVIDERS: Visit Provider Surgery | DX: D17.21 Benign lipomatous neoplasm of skin and subcutaneous tissue of right arm (principal); E11.9 Type 2 diabetes mellitus without complications | CPT/HCPCS: 99212 ==

== ENCOUNTER 2019-12-06 10:21 | Day surgery (SDC) | payer MEDICARE, SELFPAY ==
[2019-12-06 10:34] VITALS: BP 133/94; PULSE 73; RESP 16; TEMP 36.6; O2SAT 98
[2019-12-06] MEDS: Lactated Ringers 1,000 ML 80 ML IV ×2 (11:55→13:36)
--- NOTE | 2019-12-06 12:15 | PDOC.DSDIS_ITS ---
Discharge Plan Disposition Patient Disposition: HOME Condition: Good Discharge Details Reason For Visit: Colonoscopy, excision right arm lipoma Attending Provider: Anni Mast Primary Care Provider: Gissell Davis Home Meds and New Rx's Prescriptions: Continued fluticasone propion-salmeterol [Advair Diskus] 500-50 mcg/dose blister with device 1 inh Inhalation BID Qty: 1 RF: 6 montelukast [Singulair] 10 mg tablet 10 mg PO HS Qty: 90 RF: 3 diclofenac sodium [Voltaren] 1 % gel 2 gm TP QID Qty: 20 RF: 0 cholecalciferol (vitamin D3) [Vitamin D3] 2,000 UNIT capsule 2,000 unit PO DAILY RF: 0 triamcinolone acetonide 15 GM cream 1 gm Topical daily prn Qty: 1 RF: 3 (DME) blood-glucose meter [[employer] UltraMini] 1 EACH kit 1 ea Miscellaneous DAILY Qty: 1 RF: 0 (DME) lancets [[employer] UltraSoft Lancets] 1 EACH misc 1 ea Miscellaneous DAILY Qty: 100 RF: 3 cetirizine 10 mg tablet 10 mg PO DAILY Qty: 90 RF: 4 (DME) [place]Touch Ultra Test strip 1 ea Miscellaneous DAILY Qty: 100 RF: 4 atorvastatin 10 mg tablet 10 mg PO QPM Qty: 90 RF: 3 levalbuterol tartrate [Xopenex HFA] 45 mcg/actuation HFA aerosol inhaler 2 puff Inhalation Q4H PRN Qty: 4 RF: 4 Compounded Pain Cream 2 gm transdermal TID PRN Qty: 360 RF: 6 ferrous sulfate 325 mg (65 mg iron) tablet 325 mg PO BID Qty: 60 RF: 12 esomeprazole magnesium [Nexium] 40 mg capsule,delayed release(DR/EC) 40 mg PO DAILY Qty: 90 RF: 3 fluoxetine 20 mg capsule 20 mg PO DAILY Qty: 90 RF: 3 fluoxetine 40 mg capsule 40 mg PO DAILY Qty: 90 RF: 3 sucralfate [Carafate] 1 gram tablet 1 gm PO QACHS Qty: 120 RF: 11 magnesium oxide 500 mg capsule 500 mg PO DAILY Qty: 90 RF: 3 cephalexin 500 mg tablet 250 mg PO TID Qty: 90 RF: 3 albuterol sulfate 2.5 mg /3 mL (0.083 %) solution for nebulization 2.5 mg Inhalation Q6H PRN Qty: 180 RF: 4 metformin 500 mg tablet 500 mg PO TID Qty: 270 RF: 3 gabapentin 100 mg capsule 100 mg PO TID Qty: 90 RF: 0 acetaminophen 500 mg tablet 500 mg PO Q6H PRN (Reason: pain) Qty: 60 RF: 2 ibuprofen 600 mg tablet 600 mg PO TID PRN (Reason: pain) Qty: 60 RF: 2 Discharge Instructions Additional Instructions: Findings: One small polyp was removed from the colon. My office will contact you with biopsy results. Follow up: If the biopsy shows an adenomatous polyp, plan for a colonoscopy in 3 years. Please call if you develop: fevers >101.5 Nausea or Vomiting Abdominal pain that is not transient DAY SURGERY UNIT POST COLONOSCOPY INSTRUCTIONS 1. Because there will be medication in your system for the next 24 hours, you may feel a little sleepy. Your coordination will be affected. Therefore: a. Do not drive or operate dangerous equipment for 24 hours. b. Do not drink alcohol beverages for 24 hours (not even beer). c. Plan to go home and rest for the day. 2. Generally there are no restrictions on your activity after a day or so has gone by, but you may feel a bit fatigued for a few days. 3 After you arrive home you may have a light meal and return to a normal diet as you can tolerate it without feeling sick to your stomach. 4. After surgery, you may feel pain or discomfort. This should be only transient, but if it persists please contact your doctor. 5. If there are any questions regarding the findings of your procedure, please feel free to contact your doctor. 6. If you are unable to contact your doctor with a problem, contact the hospital at [phone]. 7. Continue all your regular medications unless directed otherwise. The top bandage can be removed tomorrow. The steri strips will usually stick for about a week. When the edges start to curl up, they can be removed. It is okay to shower tomorrow, the water can run over the steri strips Do not swim or soak in a tub for two weeks Call for any concerns including fever, increased pain, incision redness or drainage. Keep lifting light for a week. May use Tylenol alternating with ibuprofen for pain control. Ice is also an option. The maximum dose for Tylenol is 4000 mg/day. May use ibuprofen 800 mg every 8 hours as needed. I understand the above instructions and have no questions. Signature of Patient or Responsible Adult Escort Date/Time Name of Responsible Adult Escort Signature of Nurse Date/Time Activity:: Light with right arm for one week Remove Dressings/Wound Care:: 24 hours Shower/Bathe:: 24 hours Diet:: As Tolerated Discharge Orders Discharge Orders: Discharge Order (Routine); Ordered 12/06/19 Ordered By: Anni Mast DS: Diagnosis Discharge Diagnosis (1) Lipoma of arm: Status: Acute (2) Colon polyp: Status: Acute
--- NOTE | 2019-12-06 12:18 | W.COLOREPORT ---
Date of service: 12/06/19 Time of Service: 13:52 Colonoscopy Report Date of procedure: 12/06/19 Pre-op diagnosis general: Right arm lipoma, colon screening Post-op diagnosis procedure note: other (Right arm lipoma, colon polyp) Procedure: Excision right arm lipoma Colonoscopy with biopsy Surgeon: Anni Mast Anesthesia proc note operative: MAC Indications: This 49 year old woman presents for her first screening colonoscopy. No symptoms or FH colon cancer. She requests removal of a bothersome right arm lipoma. Procedure Description: The patient was place in the left lateral decubitus position and her right arm draped over her head. The underside of her right upper arm was prepped with Betadine and draped sterilely. The skin was injected with local anesthetic and an incision made over the mass. It was dissected free intact of the deep subcutaneous tissue with blunt and sharp dissection. This measured 4.5cm. The skin was closed with a 4-0 Monocril suture and dressed with steri strips and a Tegaderm. The patient was placed in the left Rivera position. Digital rectal examination revealed no abnormalities. The scope was advanced to the cecum without difficulty. The ileocecal valve and appendiceal orifice were clearly identified. The prep was good. The scope was slowly withdrawn over the course of greater than 6 minutes. At the hepatic flexure a possible less than 1cm polyp was identified on a fold. This was removed as much as possible. No other abnormalities seen in the ascending, transverse, descending, sigmoid colon or rectum including on retroflexed view. The patient tolerated the procedure well and was stable to recovery. If the biopsy shows an adenomatous polyp she will need a colonoscopy in 3 years.
[2019-12-06] MEDS: Lidocaine 1% Multi-Dose 50 ML VIAL (13:02)
--- NOTE | 2019-12-06 13:32 | BOWEL_PTH ---
PATIENT: Barbara Chapman LOC: [facility] U#:[id number] AGE/SX: 49/F ROOM: RE12/06/[address]: Anni Mast MD : [id number] BED: DIS: 12/06/2019 SPEC #: [id number] RECD: 12/06/19 14:53 STATUS: ARLYN REQ #: [id number] VANI: 12/06/19 13:[address]: Anni Mast DEPT: Surgical Specimen RECD BY: Latha George ENTERED: 12/06/19 14:58 SP TYPE: Bowel OTHR DR: Gissell Davis APRN Tissues: 1 - BIOPSY BOWEL 2 - SKIN BIOPSY(SHAVE/PUNCH) Procedures: GROSS AND MICRO LEVEL 4 GROSS AND MICRO LEVEL 3 Comments: [id number]
[2019-12-06 13:53] VITALS: BP 107/79; PULSE 74; RESP 19; TEMP 36.5; O2SAT 97
[2019-12-06 13:58] VITALS: BP 107/78; PULSE 69; RESP 17; TEMP 36.5; O2SAT 97
[2019-12-06 14:03] VITALS: BP 100/75; PULSE 70; RESP 15; TEMP 36.5; O2SAT 96
[2019-12-06 14:49] VITALS: BP 98/62; PULSE 68; RESP 16; TEMP 36.7; O2SAT 96
[2019-12-06 15:03] VITALS: BP 121/78; PULSE 69
== END 2019-12-06 15:10 | disposition home or self-care (01) ==
PROVIDERS: Visit Provider Surgery
PROC: 0DJD8ZZ Inspection of Lower Intestinal Tract, Via Natural or Artificial Opening Endoscopic (ICD-10-PCS; CPT 45378; principal; 2019-12-06 12:15)
PROC: (CPT 11406; 2019-12-06 12:15)
DX: Z12.11 Encounter for screening for malignant neoplasm of colon (principal); D17.21 Benign lipomatous neoplasm of skin and subcutaneous tissue of right arm; K63.5 Polyp of colon
CPT/HCPCS: 11406; 45380; 88305; 88304; 88307; J2001; J2250; J2704

== ENCOUNTER → 2019-12-13 10:05 | Outpatient (BNVA) | payer MEDICARE, SELFPAY | PROVIDERS: Visit Provider Student in an Organized Health Care Education/Training Program | DX: T84.84XD Pain due to internal orthopedic prosthetic devices, implants and grafts, subsequent encounter (principal); M25.562 Pain in left knee; T84.54XS Infection and inflammatory reaction due to internal left knee prosthesis, sequela; Z96.653 Presence of artificial knee joint, bilateral | CPT/HCPCS: 99213 ==

== ENCOUNTER → 2020-03-13 10:10 | Outpatient (BNVA) | payer MEDICARE, SELFPAY | PROVIDERS: Visit Provider Student in an Organized Health Care Education/Training Program | DX: T84.84XD Pain due to internal orthopedic prosthetic devices, implants and grafts, subsequent encounter (principal); Z96.652 Presence of left artificial knee joint; T84.54XS Infection and inflammatory reaction due to internal left knee prosthesis, sequela | CPT/HCPCS: 99213; 99214 ==

== ENCOUNTER 2020-04-27 01:42 | Outpatient (CLI) | payer MEDICARE, SELFPAY ==
--- NOTE | 2020-04-27 06:30 | DI.RAD_ITS ---
EXAM: XR SHOULDER LT COMPLETE 2+V CLINICAL HISTORY: bilateral shoulder pain without injury, Left > rig,M25.511,M25.512. TECHNIQUE: 2D digital imaging was performed. COMPARISON: CR XR SHOULDER RT COMPLETE 2+V from 04/27/2020 FINDINGS: BONES: No acute fracture is present. No bony destructive lesion is seen. JOINTS: No dislocation present. There are mild degenerative changes of the AC joint and glenoid. SOFT TISSUE: Normal. IMPRESSION: Mild degenerative changes.. DATA REPOSITORY: RADIATION DOSE DELIVERED:
--- NOTE | 2020-04-27 06:30 | DI.RAD_ITS ---
EXAM: XR SHOULDER RT COMPLETE 2+V CLINICAL HISTORY: Bilateral shoulder pain without injury, left > rig,M25.511,M25.512. TECHNIQUE: 2D digital imaging was performed. COMPARISON: No exams were available for comparison FINDINGS: BONES: No acute fracture is present. No bony destructive lesion is seen. Minimal spurring at the tip of the acromion. JOINTS: No dislocation present. Minimal spurring at the AC joint and glenoid. Glenohumeral joint is well maintained. SOFT TISSUE: Normal. IMPRESSION: Minimal degenerative changes.. DATA REPOSITORY: RADIATION DOSE DELIVERED:
== END 2020-04-27 02:02 ==
DX: M19.011 Primary osteoarthritis, right shoulder (principal); M19.012 Primary osteoarthritis, left shoulder
CPT/HCPCS: 73030

== ENCOUNTER 2020-05-29 11:31 | Outpatient (CLI) | payer MEDICARE, SELFPAY ==
--- NOTE | 2020-05-29 11:15 | DI.RAD_ITS ---
EXAM: XR KNEE LT 3V AP,LAT,ANNE CLINICAL HISTORY: left knee pain. TECHNIQUE: 2D digital imaging was performed. COMPARISON: CR XR KNEE LT 3V AP,LAT,ANNE from 07/26/2019 FINDINGS: BONES: No acute fracture is present. No bony destructive lesion is seen. JOINTS: There are stable findings of a left total knee replacement. Portions of the stems of the fem oral and tibial prosthetic components are not included on the images. No joint effusion is seen. SOFT TISSUE: Normal. IMPRESSION: Stable left TKR. DATA REPOSITORY: RADIATION DOSE DELIVERED:
== END 2020-05-29 11:32 | disposition home or self-care (01) ==
LOC: DIORS 11:31
PROVIDERS: Visit Provider Student in an Organized Health Care Education/Training Program
DX: T84.84XD Pain due to internal orthopedic prosthetic devices, implants and grafts, subsequent encounter (principal); Z96.652 Presence of left artificial knee joint; M25.512 Pain in left shoulder
CPT/HCPCS: 20610; 73562; 99213; J1040

== ENCOUNTER 2020-06-04 03:14 | Outpatient (CLI) | payer MEDICARE, SELFPAY ==
[2020-06-04 10:28] LABS: Hemoglobin A1C 8.8 % (<5.7)
== END 2020-06-04 03:15 | disposition home or self-care (01) ==
LOC: LBO 03:14
DX: E11.65 Type 2 diabetes mellitus with hyperglycemia (principal)
CPT/HCPCS: 36415; 83036

== ENCOUNTER 2020-06-09 18:32 | Emergency (ER) | payer MEDICARE, SELFPAY ==
[2020-06-09 18:36] VITALS: BP 125/83; PULSE 86; RESP 16; TEMP 36.4; O2SAT 97
--- NOTE | 2020-06-09 19:02 | ED.GENADUL_ITS ---
Discharge Plan Disposition Patient Disposition: HOME Condition: Stable Discharge Details Clinical Impression: Tick bite Primary Care Provider: Gissell Davis ED Provider: Aristides Abdul Home Meds and New Rx's Prescriptions: Continued triamcinolone acetonide 0.5 % cream 1 applic Topical daily prn Qty: 15 RF: 6 fluticasone propion-salmeterol [Advair Diskus] 500-50 mcg/dose blister with device 1 inh Inhalation BID Qty: 1 RF: 12 diclofenac sodium [Voltaren] 1 % gel 4 g topical QID Qty: 150 RF: 1 lidocaine 5 % adhesive patch,medicated 3 patch topical DAILY Qty: 15 RF: 1 cholecalciferol (vitamin D3) [Vitamin D3] 2,000 UNIT capsule 2,000 unit PO DAILY RF: 0 (DME) blood-glucose meter [[employer] UltraMini] 1 EACH kit 1 ea Miscellaneous DAILY Qty: 1 RF: 0 (DME) lancets [[employer] UltraSoft Lancets] 1 EACH misc 1 ea Miscellaneous DAILY Qty: 100 RF: 3 atorvastatin 10 mg tablet 10 mg PO QPM Qty: 90 RF: 3 Compounded Pain Cream 2 gm transdermal TID PRN Qty: 360 RF: 6 ferrous sulfate 325 mg (65 mg iron) tablet 325 mg PO BID Qty: 60 RF: 12 esomeprazole magnesium [Nexium] 40 mg capsule,delayed release(DR/EC) 40 mg PO DAILY Qty: 90 RF: 3 fluoxetine 20 mg capsule 20 mg PO DAILY Qty: 90 RF: 3 fluoxetine 40 mg capsule 40 mg PO DAILY Qty: 90 RF: 3 sucralfate [Carafate] 1 gram tablet 1 gm PO QACHS Qty: 120 RF: 11 magnesium oxide 500 mg capsule 500 mg PO DAILY Qty: 90 RF: 3 cephalexin 500 mg tablet 250 mg PO TID Qty: 90 RF: 3 metformin 500 mg tablet 500 mg PO TID Qty: 270 RF: 3 cetirizine 10 mg tablet 10 mg PO DAILY Qty: 90 RF: 4 montelukast [Singulair] 10 mg tablet 10 mg PO HS Qty: 90 RF: 3 acetaminophen 500 mg tablet 500 mg PO Q6H PRN (Reason: pain) Qty: 120 RF: 11 albuterol sulfate 2.5 mg /3 mL (0.083 %) solution for nebulization 2.5 mg Inhalation Q6H PRN Qty: 360 RF: 3 gabapentin 300 mg capsule 300 mg PO BID Qty: 60 RF: 5 levalbuterol tartrate 45 mcg/actuation HFA aerosol inhaler 2 inh inhalation Q6H Qty: 45 RF: 4 tramadol 50 mg tablet 50 mg PO BID PRN (Reason: pain) Qty: 30 RF: 0 insulin glargine 100 unit/mL (3 mL) insulin pen 10 unit subcut QPM Qty: 15 RF: 1 (DME) blood sugar diagnostic Strip 1 ea Miscellaneous DAILY Qty: 100 RF: 4 (DME) pen needle, diabetic [Comfort EZ Pen [place]] 32 gauge x 1/4 needle See Rx Instructions .ROUTE .MEDSUPPLY Qty: 100 RF: 3 Discharge Instructions Instructions: Tick Bite (ED) Additional Instructions: At this time it sounds as though your risk and exposure are extremely low. A single one-time dose of 200 mg p.o. doxycycline was given to you in the ER prophylactically. Please keep the area clean and dry. You may apply antibiotic ointment and/or dressing daily. Watch for new or worsening symptoms and return to the ER for any concerns. As I recommend contacting your primary care provider tomorrow to discuss your ER visit and potential need for outpatient reevaluation. Discharge Data Discharge Date/Time-TO BE ENTERED AT DEPARTURE: 06/09/20 19:25 Medical Decision Making 49-year-old female presents status post a tick bite. She does not believe the tick was present for any longer than 24 hours, was able to easily remove. No signs of secondary infection. The tick was not completely engorged. I do not believe there is any clear indication for full course of doxycycline. No signs of secondary cellulitis. We will give a single dose of 200 mg doxycycline. Recommend she keep the area clean and dry. Patient has no additional questions or concerns and is comfortable with this plan. Medical Records Medical records reviewed: Yes I reviewed the patient's medical records. HPI General Mode of arrival: ambulatory . Date/Time Provider Initiated Documentation: 06/09/20 18:39 . Limitations to Documentation: no limitations . Information obtained by: patient . HPI Narrative: This is a 49-year-old female, past medical history of anxiety, GERD, anemia, depression, asthma, diabetes, obesity, presenting for concern of a tick bite to her right lower abdomen-flank. She states that she noticed the tick roughly 1 hour ago, does not believe it was present for any longer than 24 hours. She states that she was able to remove it without any difficulty. Has no pain, fever, rash, body or joint aches. Patient presenting just for evaluation to make sure everything was okay. Patient denies history of Lyme disease. She has no additional questions or concerns at this time. Related Data Home Medications Medication Instructions Recorded Confirmed cholecalciferol (vitamin D3) 2,000 unit PO DAILY 05/19/15 06/09/20 [Vitamin D3] blood-glucose meter [OneTouch #1 kit 06/13/16 04/21/20 UltraMini] lancets [OneTouch UltraSoft #100 ea 09/12/16 04/21/20 Lancets] atorvastatin 10 mg tablet 10 mg PO QPM #90 tab 03/14/19 06/09/20 Compounded Pain Cream 2 gm TRANSDERMAL TID PRN #360 gm 04/17/19 06/09/20 ferrous sulfate 325 mg (65 mg 325 mg PO BID #60 tab 05/28/19 06/09/20 iron) tablet esomeprazole magnesium 40 mg 40 mg PO DAILY #90 tab-cap 06/10/19 06/09/20 capsule,delayed release fluoxetine 20 mg capsule 20 mg PO DAILY #90 tab-cap 07/24/19 06/09/20 fluoxetine 40 mg capsule 40 mg PO DAILY #90 tab-cap 07/24/19 06/09/20 sucralfate 1 gram tablet 1 gm PO QACHS #120 tab 08/22/19 06/09/20 magnesium oxide 500 mg capsule 500 mg PO DAILY #90 cap 08/26/19 06/09/20 cephalexin 500 mg tablet 250 mg PO TID #90 tab 08/27/19 06/09/20 metformin 500 mg tablet 500 mg PO TID #270 tab 10/23/19 06/09/20 cetirizine 10 mg tablet 10 mg PO DAILY #90 tab-cap 01/14/20 06/09/20 montelukast 10 mg tablet 10 mg PO HS #90 tab 01/14/20 06/09/20 acetaminophen 500 mg tablet 500 mg PO Q6H PRN #120 tab 01/31/20 06/09/20 albuterol sulfate 2.5 mg INHALATION Q6H PRN #360 ml 03/02/20 06/09/20 fluticasone 500 mcg-salmeterol 50 1 inh INHALATION BID #1 puff 03/17/20 06/09/20 mcg/dose blistr powdr for inhalation triamcinolone acetonide 0.5 % 1 applic TOPICAL daily prn #15 g 03/17/20 06/09/20 topical cream gabapentin 300 mg capsule 300 mg PO BID #60 cap 04/07/20 06/09/20 diclofenac sodium 1 % topical gel 4 g TOPICAL QID #150 g 04/21/20 06/09/20 lidocaine 5 % topical patch 3 patch TOPICAL DAILY #15 ea 04/21/20 04/21/20 levalbuterol tartrate 45 2 inh INHALATION Q6H #45 g 05/26/20 06/09/20 mcg/actuation aerosol inhaler tramadol 50 mg tablet 50 mg PO BID PRN #30 tab 06/05/20 06/09/20 insulin glargine 100 unit/mL (3 10 unit SUBCUT QPM #15 ml 06/06/20 06/09/20 mL) subcutaneous pen blood sugar diagnostic #100 strip 06/08/20 pen needle, diabetic 32 gauge x #100 ea 06/08/2002/23 Previous Rx's Medication Instructions Recorded atorvastatin 10 mg tablet 10 mg PO QPM #90 tab 03/14/19 Compounded Pain Cream 2 gm TRANSDERMAL TID PRN #360 gm 04/17/19 ferrous sulfate 325 mg (65 mg 325 mg PO BID #60 tab 05/28/19 iron) tablet esomeprazole magnesium 40 mg 40 mg PO DAILY #90 tab-cap 06/10/19 capsule,delayed release fluoxetine 20 mg capsule 20 mg PO DAILY #90 tab-cap 07/24/19 fluoxetine 40 mg capsule 40 mg PO DAILY #90 tab-cap 07/24/19 sucralfate 1 gram tablet 1 gm PO QACHS #120 tab 08/22/19 magnesium oxide 500 mg capsule 500 mg PO DAILY #90 cap 08/26/19 cephalexin 500 mg tablet 250 mg PO TID #90 tab 08/27/19 metformin 500 mg tablet 500 mg PO TID #270 tab 10/23/19 cetirizine 10 mg tablet 10 mg PO DAILY #90 tab-cap 01/14/20 montelukast 10 mg tablet 10 mg PO HS #90 tab 01/14/20 acetaminophen 500 mg tablet 500 mg PO Q6H PRN #120 tab 01/31/20 albuterol sulfate 2.5 mg INHALATION Q6H PRN #360 ml 03/02/20 fluticasone 500 mcg-salmeterol 50 1 inh INHALATION BID #1 puff 03/17/20 mcg/dose blistr powdr for inhalation triamcinolone acetonide 0.5 % 1 applic TOPICAL daily prn #15 g 03/17/20 topical cream gabapentin 300 mg capsule 300 mg PO BID #60 cap 04/07/20 diclofenac sodium 1 % topical gel 4 g TOPICAL QID #150 g 04/21/20 lidocaine 5 % topical patch 3 patch TOPICAL DAILY #15 ea 04/21/20 levalbuterol tartrate 45 2 inh INHALATION Q6H #45 g 05/26/20 mcg/actuation aerosol inhaler tramadol 50 mg tablet 50 mg PO BID PRN #30 tab 06/05/20 insulin glargine 100 unit/mL (3 10 unit SUBCUT QPM #15 ml 06/06/20 mL) subcutaneous pen blood sugar diagnostic #100 strip 06/08/20 pen needle, diabetic 32 gauge x #100 ea 06/08/2002/23 Allergies Allergy/AdvReac Type Severity Reaction Status Date / Time latex Allergy Severe HIVES, Verified 06/09/20 18:42 ITCHING erythromycin base AdvReac Intermediate NAUSEA, Verified 06/09/20 18:42 VOMITING chlorhexidine AdvReac Mild Itching Verified 06/09/20 18:42 [From Hibiclens] codeine AdvReac NAUSEA, Verified 06/09/20 18:42 VOMITING General Stated Complaint: RashLesion SHAYNE: 5 Review of Systems Constitutional Constitutional: Denies fever(s), Denies headache(s) and Denies weakness ENT Ears, Nose, Mouth, and Throat: Denies headache(s) Cardiovascular Cardiovascular: Denies chest pain Gastrointestinal Gastrointestinal: Denies abdominal pain, Denies nausea and Denies vomiting Musculoskeletal Musculoskeletal: Denies back pain, Denies arthralgias and Denies tingling Integumentary/Breasts Skin/Breast: Denies rash Neurologic Neurologic: Denies headache(s), Denies tingling and Denies weakness [facility] Medical History Abdominal discomfort, epigastric Acute blood loss anemia Asthma Candidal skin infection Depression with anxiety Diabetes (06/07/16) Gastroparesis GERD (gastroesophageal reflux disease) History of kidney stones Hyperlipidemia Incisional hernia Migraine (03/01/12) Nausea & vomiting Obesity Organic sleep apnea, unspecified Pt. denies this DR. CASH-12/10/10 (SEE SCANNED) SLEEP MEDICINE [facility] NOTE DR. CASH-01/12/11 (SEE SCANNED) 08/17/18: Pt reports that she does not have sleep apnea. -BR Pes anserinus bursitis of left knee Shoulder pain, left Shoulder pain, right Surgical History ABDOMINAL WALL HERNIA REPAIR Arthroplasty of knee LEFT AND RIGHT Cholecystectomy EGD - MAC (09/28/16) 07/19/13 H/O surgical procedure a. cholecystectomy b. hysterectomy c. tonsillectomy d. left knee arthroscopy e. EGD with MAC 07/19/2013 f. incisional hernia repair 09/2009, 06/28/2010 g. 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 Gongora Tonsillectdaniel (06/14/10) LILIYA; and uvula Family History Mother Depression Hyperlipidemia Father , 72 Diabetes Essential hypertension Heart disease Cancer Sister No problems noted. Maternal Grandfather , 80 Heart disease Hyperlipidemia Paternal Grandfather , 80 Diabetes Heart disease Hyperlipidemia Maternal Grandmother , 82 Diabetes Heart disease Paternal Grandmother , 73 Heart disease Hyperlipidemia Asthma Social History Smoking/Tobacco Use Status: Never Smoking risk assessment performed?: Yes Alcohol Intake: current Alcohol Intake frequency: holidays/special occasions only Drug use: Never Substance use type: does not use Caregiver/Support person: No Household members: spouse Housing: apartment Communication Needs: None Do you need help understanding health information?: Rarely current occupation: Disabled Pets and animals: Yes Pets and animals: cat(s) and dog(s) Sexually active: No Do you think of yourself as: straight/heterosexual Current gender identity: female What is your relationship status?: How often do you talk on the phone with friends or family?: decline to answer How often do you get together with friends or relatives?: decline to answer How often do you attend mormonism or cheondoism services?: decline to answer Do you belong to any clubs or organized social groups?: no Panel score (0-1 are the most socially isolated patients): 1 What type of physical activity do you participate in: walking Duration: 15-30 minutes/day Frequency: 3-4 times per week Sita/Denominational: No preference Special sita needs: No Seatbelt use: always Helmet use: No Drive intox or ride w/intox local hazmat driver: No Do you feel safe at home: Yes Do you feel safe in your relationship?: Yes Exam Const General: cooperative, healthy appearing, comfortable and no acute distress Orientation: alert and awake [facility] Head: normal to inspection, normocephalic and atraumatic Eyes General: appearance normal, both eyes and all related structures Conjunctivae: conjunctivae normal Neck Neck: normal visual inspection, trachea midline and supple Resp Effort & Inspection: normal respiratory effort and able to speak in complete sentences GI Inspection: obesity Palpation: soft and nontender Abdomen image: 1. There is a 0.5 x 0.5 cm shallow wound-area of erythema. It is without tenderness, warmth, bleeding, or foreign body. No signs of secondary infection. Skin Rashes: no rashes Other: As described in the abdomen exam Neuro General: patient alert, patient awake, moves all extremities and no focal motor deficits Sensory Exam: no sensory deficits noted Psych Appearance: grossly normal Mental Status: mental status grossly normal Course Vital Signs Vital signs: Vital Signs Temperature 36.4 C L 06/09/20 18:36 Pulse 86 06/09/20 18:36 Respiratory Rate 16 06/09/20 18:36 Blood Pressure 125/83 06/09/20 18:36 Pulse Oximetry 97 06/09/20 18:36 Temperature 36.4 C L 06/09/20 18:36 Pulse 86 06/09/20 18:36 Respiratory Rate 16 06/09/20 18:36 Respiratory Effort 06/09/20 18:44 Blood Pressure 125/83 06/09/20 18:36 Blood Pressure Position Sitting 06/09/20 18:36 Pulse Oximetry 97 06/09/20 18:36 Oxygen Delivery Method Room Air 06/09/20 18:36 Oxygen Flow Rate 0 06/09/20 18:36 Pain Level 0 06/09/20 18:36
[2020-06-09] MEDS: Doxycycline Hyclate 100 MG CAP 200 MG PO (19:19)
== END 2020-06-09 19:25 | disposition home or self-care (01) ==
PROVIDERS: Emergency Provider Physician Assistant
DX: S30.861A Insect bite (nonvenomous) of abdominal wall, initial encounter (principal); W57.XXXA Bitten or stung by nonvenomous insect and other nonvenomous arthropods, initial encounter
CPT/HCPCS: 99283; 99282

== ENCOUNTER 2020-07-17 02:16 | Outpatient (CLI) | payer MEDICARE, SELFPAY ==
[2020-07-17 10:24] LABS: Source Nasal/Nares
[2020-07-17 16:26] LABS: COVID-19 PCR Negative (Negative)
== END 2020-07-17 02:17 | disposition home or self-care (01) ==
PROVIDERS: Visit Provider Student in an Organized Health Care Education/Training Program
DX: Z20.822 Contact with and (suspected) exposure to COVID-19 (principal); Z01.818 Encounter for other preprocedural examination
CPT/HCPCS: 87635

== ENCOUNTER 2020-07-21 08:59 | Day surgery (SDC) | payer MEDICARE, SELFPAY ==
--- NOTE | 2020-07-21 07:37 | W.PM.DS.N ---
Documented by User: Marilee Coughlin 07/21/20 10:51 DS: Diagnosis Discharge Diagnosis (1) Painful total knee replacement, left: Status: Acute Discharge Plan Disposition Patient Disposition: HOME Condition: Good Discharge Details Reason For Visit: Painful left TKA Attending Provider: Raheel Gongora Primary Care Provider: Gissell Davis Home Meds and New Rx's Prescriptions: New acetaminophen 500 mg tablet 500 mg PO Q6H PRN (Reason: pain) Qty: 60 RF: 2 aspirin 81 mg tablet,delayed release (DR/EC) 81 mg PO BID 30 Days Qty: 60 RF: 0 celecoxib [Celebrex] 200 mg capsule 200 mg PO BID Qty: 30 RF: 0 docusate sodium [Colace] 100 mg capsule 100 mg PO BID Qty: 30 RF: 0 oxycodone 5 mg tablet 5 mg PO Q4H PRN (Reason: severe post-operative pain) Qty: 12 RF: 0 Continued fluticasone propion-salmeterol [Advair Diskus] 500-50 mcg/dose blister with device 1 inh Inhalation BID Qty: 1 RF: 12 diclofenac sodium [Voltaren] 1 % gel 4 g topical QID Qty: 150 RF: 1 lidocaine 5 % adhesive patch,medicated 3 patch topical DAILY Qty: 15 RF: 1 triamcinolone acetonide 0.5 % cream 1 applic Topical daily prn Qty: 15 RF: 6 (DME) blood sugar diagnostic Strip 1 ea Miscellaneous DAILY Qty: 200 RF: 4 cholecalciferol (vitamin D3) [Vitamin D3] 2,000 UNIT capsule 2,000 unit PO DAILY RF: 0 (DME) blood-glucose meter [OneTouch UltraMini] 1 EACH kit 1 ea Miscellaneous DAILY Qty: 1 RF: 0 Compounded Pain Cream 2 gm transdermal TID PRN Qty: 360 RF: 6 esomeprazole magnesium [Nexium] 40 mg capsule,delayed release(DR/EC) 40 mg PO DAILY Qty: 90 RF: 3 fluoxetine 20 mg capsule 20 mg PO DAILY Qty: 90 RF: 3 fluoxetine 40 mg capsule 40 mg PO DAILY Qty: 90 RF: 3 sucralfate [Carafate] 1 gram tablet 1 gm PO QACHS Qty: 120 RF: 11 magnesium oxide 500 mg capsule 500 mg PO DAILY Qty: 90 RF: 3 metformin 500 mg tablet 500 mg PO TID Qty: 270 RF: 3 cetirizine 10 mg tablet 10 mg PO DAILY Qty: 90 RF: 4 montelukast [Singulair] 10 mg tablet 10 mg PO HS Qty: 90 RF: 3 albuterol sulfate 2.5 mg /3 mL (0.083 %) solution for nebulization 2.5 mg Inhalation Q6H PRN Qty: 360 RF: 3 gabapentin 300 mg capsule 300 mg PO BID Qty: 60 RF: 5 levalbuterol tartrate 45 mcg/actuation HFA aerosol inhaler 2 inh inhalation Q6H Qty: 45 RF: 4 tramadol 50 mg tablet 50 mg PO BID PRN (Reason: pain) Qty: 30 RF: 0 (DME) pen needle, diabetic [Comfort EZ Pen [place]] 32 gauge x 1/4 needle See Rx Instructions .ROUTE .MEDSUPPLY Qty: 100 RF: 3 (DME) lancets [OneTouch UltraSoft Lancets] Misc 1 ea Miscellaneous DAILY Qty: 100 RF: 12 atorvastatin 10 mg tablet 10 mg PO QPM Qty: 90 RF: 3 ferrous sulfate 325 mg (65 mg iron) tablet 325 mg PO BID Qty: 60 RF: 12 cephalexin 500 mg tablet 500 mg PO TID RF: 0 insulin glargine 100 unit/mL (3 mL) insulin pen 16 unit subcut QPM RF: 0 Discontinued acetaminophen 500 mg tablet 500 mg PO Q6H PRN (Reason: pain) Qty: 120 RF: 11 Discharge Instructions Additional Instructions: Total Knee Discharge Instructions Activity: The most important activity is to walk. You should try to take short walks a few times a day. It is important that when resting you work on keeping the knee straight. Avoid putting a pillow behind the knee as this will encourage flexion. You have a knee immobilizer which is to help support the knee and the repair. You may wear this with ambulation and at night sleeping. However, I recommend having it off during the day as much as possible. You may start range of motion but don't push any deep flexion until your first post-operative appointment. - Start outpatient physical therapy within 2 weeks. - You should wear the LINA hose on both legs for 2 weeks. You may remove these at night. You may also use any compression sock in place of the LINA hose. Dressing: You may remove the Lawrence wrap on your leg 2 days after your surgery and put on the LINA stocking given to you from the hospital. Keep the surgical dressing (underneath the LAWRENCE wrap) in place for at least one week. After the first week it may be removed and replaced with light gauze and tape or nothing. The wound and dressing may get wet after 3 days but avoid soaking the dressing or otherwise it will need to be changed. Many people prefer covering the dressing with cling wrap (saran wrap) to minimize it from getting soaked. If it gets wet, just pat dry. If it starts to peel off then it will need to be changed. Medications: - You should take Tylenol and anti-inflammatory Celebrex as your primary pain control medications. If the Celebrex is too expensive or not covered, please call the office for another alternative (Advil/Ibuprofen or Naproxen/Aleve) - You have been prescribed a stronger pain medication Oxycodone for breakthrough pain, take as needed as prescribed. - You will continued with your normal stomach acid reduction agent Esomeprazole to help reduce stomach acid and reflux. - You will continue to take your normal dosage of gabapentin. - You will be taking Aspirin 81mg twice a day for DVT prevention unless instructed otherwise. - If you have constipation you should take Colace (which was prescribed) or Miralax (which you may purchase [id number]). It takes most people 3-4 days to have a bowel movement. Follow-up: 2 weeks If you have any acute concerns or questions, please do not hesitate to contact the office at [phone]. You may contact Dr. Gongora with any questions after hours through the hospital at [phone] or on his cell phone at [phone]. Stand Alone Forms: Anesthesia Discharge Inst., Martha Arevalo (U) Referrals: Raheel Gongora MD [ [facility]] - Equipment/Supplies: Partial Weight Bearing Crutches Activity:: Elevate Remove Dressings/Wound Care:: Do Not Remove Shower/Bathe:: Cover Diet:: As Tolerated Discharge Orders Discharge Orders: Discharge Order (Routine); Ordered 07/21/20 Ordered By: Raheel Gongora [facility] Medical History Abdominal discomfort, epigastric Acute blood loss anemia Asthma Candidal skin infection Depression with anxiety Dermatitis Diabetes (06/07/16) Gastroparesis GERD (gastroesophageal reflux disease) History of kidney stones Hyperlipidemia Incisional hernia Increased body mass index (BMI) Migraine (03/01/12) Nausea & vomiting Obesity Organic sleep apnea, unspecified Pt. denies this DR. CASH-12/10/10 (SEE SCANNED) SLEEP MEDICINE [facility] NOTE DR. CASH-01/12/11 (SEE SCANNED) 08/17/18: Pt reports that she does not have sleep apnea. -BR Pes anserinus bursitis of left knee Shoulder pain, left Shoulder pain, right Surgical History ABDOMINAL WALL HERNIA REPAIR Arthroplasty of knee LEFT AND RIGHT Cholecystectomy EGD - MAC (09/28/16) 07/19/13 H/O surgical procedure a. cholecystectomy b. hysterectomy c. tonsillectomy d. left knee arthroscopy e. EGD with MAC 07/19/2013 f. incisional hernia repair 09/2009, 06/28/2010 g. 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 Gongora Tonsillectomy (06/14/10) LILIYA; and uvula Family History Mother Depression Hyperlipidemia Father , 72 Diabetes Essential hypertension Heart disease Cancer Sister No problems noted. Maternal Grandfather , 80 Heart disease Hyperlipidemia Paternal Grandfather , 80 Diabetes Heart disease Hyperlipidemia Maternal Grandmother , 82 Diabetes Heart disease Paternal Grandmother , 73 Heart disease Hyperlipidemia Asthma Social History Smoking/Tobacco Use Status: Never Smoking risk assessment performed?: Yes Alcohol Intake: current Alcohol Intake frequency: holidays/special occasions only Drug use: Never Substance use type: does not use Details: alcohol: unknown last time Caregiver/Support person: No Household members: spouse Housing: apartment Communication Needs: None Do you need help understanding health information?: Rarely current occupation: Disabled Pets and animals: Yes Pets and animals: cat(s) and dog(s) Sexually active: No Do you think of yourself as: straight/heterosexual Current gender identity: female What is your relationship status?: How often do you talk on the phone with friends or family?: decline to answer How often do you get together with friends or relatives?: decline to answer How often do you attend protestant or scientology services?: decline to answer Do you belong to any clubs or organized social groups?: no Panel score (0-1 are the most socially isolated patients): 1 What type of physical activity do you participate in: walking Duration: 15-30 minutes/day Frequency: 3-4 times per week Sita/Yazdanism: No preference Special sita needs: No Seatbelt use: always Helmet use: No Drive intox or ride w/intox hazmat cdl a driver: No Do you feel safe at home: Yes Do you feel safe in your relationship?: Yes Documented by User: Raheel Gongora MD 07/21/20 15:01 Date of service: 07/21/20 Time of Service: 13:16 Discharge Plan Disposition Patient Disposition: HOME Condition: Good Discharge Details Reason For Visit: Painful left TKA Attending Provider: Raheel Gongora Primary Care Provider: Gissell Davis Home Meds and New Rx's Prescriptions: New acetaminophen 500 mg tablet 500 mg PO Q6H PRN (Reason: pain) Qty: 60 RF: 2 aspirin 81 mg tablet,delayed release (DR/EC) 81 mg PO BID 30 Days Qty: 60 RF: 0 celecoxib [Celebrex] 200 mg capsule 200 mg PO BID Qty: 30 RF: 0 docusate sodium [Colace] 100 mg capsule 100 mg PO BID Qty: 30 RF: 0 oxycodone 5 mg tablet 5 mg PO Q4H PRN (Reason: severe post-operative pain) Qty: 12 RF: 0 Continued fluticasone propion-salmeterol [Advair Diskus] 500-50 mcg/dose blister with device 1 inh Inhalation BID Qty: 1 RF: 12 diclofenac sodium [Voltaren] 1 % gel 4 g topical QID Qty: 150 RF: 1 lidocaine 5 % adhesive patch,medicated 3 patch topical DAILY Qty: 15 RF: 1 triamcinolone acetonide 0.5 % cream 1 applic Topical daily prn Qty: 15 RF: 6 (DME) blood sugar diagnostic Strip 1 ea Miscellaneous DAILY Qty: 200 RF: 4 cholecalciferol (vitamin D3) [Vitamin D3] 2,000 UNIT capsule 2,000 unit PO DAILY RF: 0 (DME) blood-glucose meter [[employer]Touch UltraMini] 1 EACH kit 1 ea Miscellaneous DAILY Qty: 1 RF: 0 Compounded Pain Cream 2 gm transdermal TID PRN Qty: 360 RF: 6 esomeprazole magnesium [Nexium] 40 mg capsule,delayed release(DR/EC) 40 mg PO DAILY Qty: 90 RF: 3 fluoxetine 20 mg capsule 20 mg PO DAILY Qty: 90 RF: 3 fluoxetine 40 mg capsule 40 mg PO DAILY Qty: 90 RF: 3 sucralfate [Carafate] 1 gram tablet 1 gm PO QACHS Qty: 120 RF: 11 magnesium oxide 500 mg capsule 500 mg PO DAILY Qty: 90 RF: 3 metformin 500 mg tablet 500 mg PO TID Qty: 270 RF: 3 cetirizine 10 mg tablet 10 mg PO DAILY Qty: 90 RF: 4 montelukast [Singulair] 10 mg tablet 10 mg PO HS Qty: 90 RF: 3 albuterol sulfate 2.5 mg /3 mL (0.083 %) solution for nebulization 2.5 mg Inhalation Q6H PRN Qty: 360 RF: 3 gabapentin 300 mg capsule 300 mg PO BID Qty: 60 RF: 5 levalbuterol tartrate 45 mcg/actuation HFA aerosol inhaler 2 inh inhalation Q6H Qty: 45 RF: 4 tramadol 50 mg tablet 50 mg PO BID PRN (Reason: pain) Qty: 30 RF: 0 (DME) pen needle, diabetic [Comfort EZ Pen [place]] 32 gauge x 1/4 needle See Rx Instructions .ROUTE .MEDSUPPLY Qty: 100 RF: 3 (DME) lancets [OneTouch UltraSoft Lancets] Misc 1 ea Miscellaneous DAILY Qty: 100 RF: 12 atorvastatin 10 mg tablet 10 mg PO QPM Qty: 90 RF: 3 ferrous sulfate 325 mg (65 mg iron) tablet 325 mg PO BID Qty: 60 RF: 12 cephalexin 500 mg tablet 500 mg PO TID RF: 0 insulin glargine 100 unit/mL (3 mL) insulin pen 16 unit subcut QPM RF: 0 Discontinued acetaminophen 500 mg tablet 500 mg PO Q6H PRN (Reason: pain) Qty: 120 RF: 11 Discharge Instructions Additional Instructions: Total Knee Discharge Instructions Activity: The most important activity is to walk. You should try to take short walks a few times a day. It is important that when resting you work on keeping the knee straight. Avoid putting a pillow behind the knee as this will encourage flexion. You have a knee immobilizer which is to help support the knee and the repair. You may wear this with ambulation and at night sleeping. However, I recommend having it off during the day as much as possible. You may start range of motion but don't push any deep flexion until your first post-operative appointment. - Start outpatient physical therapy within 2 weeks. - You should wear the LINA hose on both legs for 2 weeks. You may remove these at night. You may also use any compression sock in place of the LINA hose. Dressing: You may remove the [place] wrap on your leg 2 days after your surgery and put on the LINA stocking given to you from the hospital. Keep the surgical dressing (underneath the LAWRENCE wrap) in place for at least one week. After the first week it may be removed and replaced with light gauze and tape or nothing. The wound and dressing may get wet after 3 days but avoid soaking the dressing or otherwise it will need to be changed. Many people prefer covering the dressing with cling wrap (saran wrap) to minimize it from getting soaked. If it gets wet, just pat dry. If it starts to peel off then it will need to be changed. Medications: - You should take Tylenol and anti-inflammatory Celebrex as your primary pain control medications. If the Celebrex is too expensive or not covered, please call the office for another alternative (Advil/Ibuprofen or Naproxen/Aleve) - You have been prescribed a stronger pain medication Oxycodone for breakthrough pain, take as needed as prescribed. - You will continued with your normal stomach acid reduction agent Esomeprazole to help reduce stomach acid and reflux. - You will continue to take your normal dosage of gabapentin. - You will be taking Aspirin 81mg twice a day for DVT prevention unless instructed otherwise. - If you have constipation you should take Colace (which was prescribed) or Miralax (which you may purchase [id number]). It takes most people 3-4 days to have a bowel movement. Follow-up: 2 weeks If you have any acute concerns or questions, please do not hesitate to contact the office at [phone]. You may contact Dr. Gongora with any questions after hours through the hospital at [phone] or on his cell phone at [phone]. Stand Alone Forms: Anesthesia Discharge Inst., Martha Arevalo (U) Referrals: Raheel Gongora MD [ [facility]IC[facility]] - Equipment/Supplies: Partial Weight Bearing Crutches Activity:: Elevate Remove Dressings/Wound Care:: Do Not Remove Shower/Bathe:: Cover Diet:: As Tolerated Discharge Orders Discharge Orders: Discharge Order (Routine); Ordered 07/21/20 Ordered By: Raheel Gongora DS: Summary Time Spent with Patient providing and/or coordinating discharge services: Greater than 30 minutes Status at Discharge Functional status at discharge: uses cane/walker Overall status at discharge: patient is progressing back to baseline Mental Status: mental status grossly normal Speech and Movement: speech and movement normal Mood: congruent mood Affect: normal affect Exam Psych Mental Status: mental status grossly normal Speech and Movement: speech and movement normal Mood: congruent mood Affect: normal affect [facility] Medical History Abdominal discomfort, epigastric Acute blood loss anemia Asthma Candidal skin infection Depression with anxiety Dermatitis Diabetes (06/07/16) Gastroparesis GERD (gastroesophageal reflux disease) History of kidney stones Hyperlipidemia Incisional hernia Increased body mass index (BMI) Migraine (03/01/12) Nausea & vomiting Obesity Organic sleep apnea, unspecified Pt. denies this DR. CASH-12/10/10 (SEE SCANNED) SLEEP MEDICINE [facility] NOTE DR. CASH-01/12/11 (SEE SCANNED) 08/17/18: Pt reports that she does not have sleep apnea. -BR Pes anserinus bursitis of left knee Shoulder pain, left Shoulder pain, right Surgical History ABDOMINAL WALL HERNIA REPAIR Arthroplasty of knee LEFT AND RIGHT Cholecystectomy EGD - MAC (09/28/16) 07/19/13 H/O surgical procedure a. cholecystectomy b. hysterectomy c. tonsillectomy d. left knee arthroscopy e. EGD with MAC 07/19/2013 f. incisional hernia repair 09/2009, 06/28/2010 g. 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 Gongora Tonsillectomy (06/14/10) LILIYA; and uvula Family History Mother Depression Hyperlipidemia Father , 72 Diabetes Essential hypertension Heart disease Cancer Sister No problems noted. Maternal Grandfather , 80 Heart disease Hyperlipidemia Paternal Grandfather , 80 Diabetes Heart disease Hyperlipidemia Maternal Grandmother , 82 Diabetes Heart disease Paternal Grandmother , 73 Heart disease Hyperlipidemia Asthma Social History Smoking/Tobacco Use Status: Never Smoking risk assessment performed?: Yes Alcohol Intake: current Alcohol Intake frequency: holidays/special occasions only Drug use: Never Substance use type: does not use Details: alcohol: unknown last time Caregiver/Support person: No Household members: spouse Housing: apartment Communication Needs: None Do you need help understanding health information?: Rarely current occupation: Disabled Pets and animals: Yes Pets and animals: cat(s) and dog(s) Sexually active: No Do you think of yourself as: straight/heterosexual Current gender identity: female What is your relationship status?: How often do you talk on the phone with friends or family?: decline to answer How often do you get together with friends or relatives?: decline to answer How often do you attend protestant or scientology services?: decline to answer Do you belong to any clubs or organized social groups?: no Panel score (0-1 are the most socially isolated patients): 1 What type of physical activity do you participate in: walking Duration: 15-30 minutes/day Frequency: 3-4 times per week Sita/Yazdanism: No preference Special sita needs: No Seatbelt use: always Helmet use: No Drive intox or ride w/intox hazmat cdl a driver: No Do you feel safe at home: Yes Do you feel safe in your relationship?: Yes
[2020-07-21 09:25] VITALS: BP 120/85; PULSE 75; RESP 18; TEMP 36.1; O2SAT 97
[2020-07-21] MEDS: Celecoxib 200 MG CAP 400 MG PO (09:31)
[2020-07-21] MEDS: Acetaminophen 500 MG TAB 1000 MG PO (09:31)
[2020-07-21] MEDS: Gabapentin 300 MG CAP PO (09:31)
--- NOTE | 2020-07-21 09:31 | W.ANESPRE ---
General Info Date of Service Date Performed: 07/21/20 Height: 5 ft 3 in Weight: 80.7 kg Body Mass Index (BMI): 31.5 Surgical Procedure: Operation Date: 07/21/20 10:25 Proposed Procedures Side Surgeon p LT PATELLA RESURFACING Left Raheel Gongora MD Meds Allergies and Home Medications Allergies Allergy/AdvReac Type Severity Reaction Status Date / Time latex Allergy Severe HIVES, Verified 07/21/20 09:11 ITCHING erythromycin base AdvReac Intermediate NAUSEA, Verified 07/21/20 09:11 VOMITING chlorhexidine AdvReac Mild Itching Verified 07/21/20 09:11 [From Hibiclens] codeine AdvReac NAUSEA, Verified 07/21/20 09:11 VOMITING Home Medication Medication Instructions Recorded cholecalciferol (vitamin D3) 2,000 unit PO DAILY 05/19/15 [Vitamin D3] blood-glucose meter [OneTouch #1 kit 06/13/16 UltraMini] Compounded Pain Cream 2 gm TRANSDERMAL TID PRN #360 gm 04/17/19 esomeprazole magnesium 40 mg 40 mg PO DAILY #90 tab-cap 06/10/19 capsule,delayed release fluoxetine 20 mg capsule 20 mg PO DAILY #90 tab-cap 07/24/19 fluoxetine 40 mg capsule 40 mg PO DAILY #90 tab-cap 07/24/19 sucralfate 1 gram tablet 1 gm PO QACHS #120 tab 08/22/19 magnesium oxide 500 mg capsule 500 mg PO DAILY #90 cap 08/26/19 metformin 500 mg tablet 500 mg PO TID #270 tab 10/23/19 cetirizine 10 mg tablet 10 mg PO DAILY #90 tab-cap 01/14/20 montelukast 10 mg tablet 10 mg PO HS #90 tab 01/14/20 acetaminophen 500 mg tablet 500 mg PO Q6H PRN #120 tab 01/31/20 albuterol sulfate 2.5 mg INHALATION Q6H PRN #360 ml 03/02/20 fluticasone 500 mcg-salmeterol 50 1 inh INHALATION BID #1 puff 03/17/20 mcg/dose blistr powdr for inhalation gabapentin 300 mg capsule 300 mg PO BID #60 cap 04/07/20 diclofenac sodium 1 % topical gel 4 g TOPICAL QID #150 g 04/21/20 lidocaine 5 % topical patch 3 patch TOPICAL DAILY #15 ea 04/21/20 levalbuterol tartrate 45 2 inh INHALATION Q6H #45 g 05/26/20 mcg/actuation aerosol inhaler tramadol 50 mg tablet 50 mg PO BID PRN #30 tab 06/05/20 pen needle, diabetic 32 gauge x #100 ea 06/08/2002/23 lancets #100 ea 06/15/20 triamcinolone acetonide 0.5 % 1 applic TOPICAL daily prn #15 g 06/16/20 topical cream blood sugar diagnostic #200 strip 06/30/20 atorvastatin 10 mg tablet 10 mg PO QPM #90 tab 07/06/20 ferrous sulfate 325 mg (65 mg 325 mg PO BID #60 tab 07/06/20 iron) tablet cephalexin 500 mg PO TID 07/21/20 insulin glargine 16 unit SUBCUT QPM 07/21/20 Current Visit Medications: Current Medications Generic Name Dose Route Start Last Admin Trade Name Freq PRN Reason Stop Dose Admin Acetaminophen 1,000 mg 07/21/20 06:00 Acetaminophen 500 Mg Tab PO 07/21/20 23:59 PREOP BROWN Acetaminophen 1,000 mg 07/21/20 09:00 Acetaminophen 500 Mg Tab PO TID BROWN Aspirin 81 mg 07/21/20 09:00 Aspirin E.C. 81 Mg Tabec PO BID BROWN Celecoxib 400 mg 07/21/20 06:00 Celecoxib 200 Mg Cap PO 07/21/20 23:59 PREOP BROWN Celecoxib 200 mg 07/21/20 09:00 Celecoxib 200 Mg Cap PO BID BROWN Docusate Sodium 100 mg 07/21/20 07:29 Docusate Sodium 100 Mg Cap PO BID PRN PRN Constipation Gabapentin 300 mg 07/21/20 06:00 Gabapentin 300 Mg Cap PO 07/21/20 23:59 PREOP BROWN Tranexamic Acid 1,000 mg/ 60 mls @ 360 mls/hr 07/21/20 06:00 Sodium Chloride IVPB 07/21/20 23:59 PREOP BROWN Ringer's Solution 1,000 mls @ 80 mls/hr 07/21/20 06:00 IV 08/19/20 23:59 INFUSION BROWN Cefazolin Sodium/Dextrose 2 gm in 50 mls @ 100 mls/hr 07/21/20 06:00 Ancef Duplex IVPB 07/21/20 16:00 PREOP BROWN Cefazolin Sodium/Dextrose 1 gm in 50 mls @ 100 mls/hr 07/21/20 10:00 Ancef Duplex IVPB 07/22/20 02:29 Q8H [facility] IV Miscellaneous Supplies 1 each 07/21/20 06:00 Iv Access IV 08/19/20 23:59 DIRECTED BROWN Ondansetron HCl 4 mg 07/21/20 07:29 Ondansetron 4 Mg/2 Ml Vial IVP Q6H PRN PRN Nausea Oxycodone HCl 0 mg 07/21/20 07:29 Oxycodone 5 Mg Tab PO Q3H PRN PRN Pain Pantoprazole Sodium 40 mg 07/21/20 08:00 Pantoprazole 40 Mg Tabcr PO DAILY@0730 [facility] Polyethylene Glycol 17 gm 07/21/20 07:29 Polyethylene Glycol 3350 17 Gm Packet PO BID PRN PRN Constipation Sodium Chloride 0 ml 07/21/20 06:00 Normal Saline Flush 10 Ml Syr IV 08/19/20 23:59 PRN PRN Sodium Chloride 0 ml 07/21/20 06:00 Normal Saline 10 Ml Vial IJ 08/19/20 23:59 DIRECTED PRN Sterile Water 0 ml 07/21/20 06:00 Water,Injection,Sterile 10 Ml Vial IJ 08/19/20 23:59 DIRECTED PRN PFSH Active Problems Active Problems: Problem Status Onset Code Increased body mass index (BMI) R63.8 Dermatitis L30.9 Tick bite W57.XXXA Shoulder pain, right M25.511 Shoulder pain, left M25.512 Nausea & vomiting R11.2 Tubular adenoma of colon D12.6 Colon polyp K63.5 At risk for aspiration Z91.89 Anxiety attack F41.0 Acute bronchitis J20.9 DVT prophylaxis 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 Hypertrophy of tonsils 04/19/10 J35.1 Pyloric ulcer associated with Helicobacter pylori 01/20/96 K25.9, B96.81 Gastroparesis K31.84 Gastroesophageal reflux disease with esophagitis K21.0 Dysfunctional uterine bleeding N93.8 Ureterolithiasis N20.1 Hydronephrosis concurrent with and due to calculi of kidney and ureter N13.2 RENAE (acute kidney injury) N17.9 Left knee pain M25.562 Right knee pain M25.561 Painful total knee replacement, left T84.84XA, Z96.652 Pes anserinus bursitis of left knee M70.52 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 Depression with anxiety F41.8 Abdominal discomfort, epigastric R10.13 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 Acute blood loss anemia D62 Asthma J45.909 Hyperlipidemia E78.5 Diabetes 06/07/16 E11.9 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, Z96.652 Migraine 03/01/12 G43.909 Organic sleep apnea, unspecified G47.30 Medical History Medical History Abdominal discomfort, epigastric Acute blood loss anemia Asthma Candidal skin infection Depression with anxiety Dermatitis Diabetes (06/07/16) Gastroparesis GERD (gastroesophageal reflux disease) History of kidney stones Hyperlipidemia Incisional hernia Increased body mass index (BMI) Migraine (03/01/12) Nausea & vomiting Obesity Organic sleep apnea, unspecified Pt. denies this DR. CASH-12/10/10 (SEE SCANNED) SLEEP MEDICINE [facility] NOTE DR. CASH-01/12/11 (SEE SCANNED) 08/17/18: Pt reports that she does not have sleep apnea. -BR Pes anserinus bursitis of left knee Shoulder pain, left Shoulder pain, right Surgical History Surgical History ABDOMINAL WALL HERNIA REPAIR Arthroplasty of knee LEFT AND RIGHT Cholecystectomy EGD - MAC (09/28/16) 07/19/13 H/O surgical procedure a. cholecystectomy b. hysterectomy c. tonsillectomy d. left knee arthroscopy e. EGD with MAC 07/19/2013 f. incisional hernia repair 09/2009, 06/28/2010 g. 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 Gongora Tonsillectomy (06/14/10) LILIYA; and uvula Tobacco Smoking/Tobacco Use Status: Never Passive smoking exposure: Yes Alcohol Alcohol Intake: current Alcohol intake frequency: holidays/special occasions only Substance Use Substance use: Never Substance use type: does not use Details: alcohol: unknown last time Vital Signs and Lab Results Vital Signs Most Recent Vital Signs in EMR: Most Recent Vital Signs Temp Pulse Resp BP Pulse Ox 36.1 C L 75 18 120/85 97 07/21/20 09:25 07/21/20 09:25 07/21/20 09:25 07/21/20 09:25 07/21/20 09:25 Lab Results Blood Type / Crossmatch: No Data to Display Complete Blood Count: No Data to Display Complete Metabolic Panel: No Data to Display Liver Function Panel: No Data to Display Coagulation Panel: No Data to Display Cardiac Panel: No Data to Display Arterial Blood Gas: No Data to Display Venous Blood Gas: No Data to Display Pancreas Panel: No Data to Display Thyroid Panel: No Data to Display Infectious Disease: Coronavirus (COVID-19)(PCR) Negative (Negative) 07/17/20 10:13 07/17/20 Coronavirus 2019 Source Nasal/nares 07/17/20 10:13 07/17/20 Blood Cultures: No Data to Display Toxicology Panel: No Data to Display Panel: No Data to Display Anesthesia Assessment and Plan Anesthesia History Personal History: No History of Anesthesia Complications Family History: No Family History of Anesthesia Complications Exercise Tolerance Exercise Tolerance: Metabolic Equivalents<4 Cardiac & Pulmonary Exam Cardiac Exam: Normal S1/S2 Heart Sounds Pulmonary Exam: Clear Bilateral Breath Sounds Airway Exam Known Difficult Airway: No Mallampati Class: 3 Mouth Opening: Narrow (< 3cm) Thyromental Distance: Less than 3 cm Neck Range of Motion: Limited ROM Neck Circumference: Thick Teeth Condition: Loose or Chipped ASA Classification ASA Score: ASA 3 Emergency Case?: No NPO Status NPO Status: NPO Clears >2 hours, Solids >8 hours Status Status: History of Hysterectomy Anesthesia Plan Resuscitation Status: Full Code Anesthesia Technique: General Anesthesia Airway Planned: Endotracheal Tube Monitors Used: Standard Monitors Preoperative Comments:: History of bile on ETT after removal. Multiple previous airways: mac 3, mac 4, and glide 3 all grade 1. 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 BS 118 today.
[2020-07-21] MEDS: Lactated Ringers 1,000 ML 80 ML IV (09:50)
[2020-07-21 09:53] VITALS: BMI 31.5
--- NOTE | 2020-07-21 10:54 | HPE_ITS ---
Date of service: 07/21/20 Time of Service: 10:54 Assessment and Plan Assessment and plan (1) Painful total knee replacement, left: Status: Acute Assessment and plan: Fay is a 50-year-old who continues have pain about the left knee after a two-stage revision arthroplasty. She is currently infection but still has not suppressive antibiotics. There are no signs of active infection. After review of her case with a second opinion, decision was agreed upon the resurfacing of the patella was in her best interest to improve her pain and function. On surveillance with Fay this may not improve signifi cantly. He also may not improve her extensor lag. However, and may help out with some pain. She does have a thin patella and this is a risk for infection. I discussed possible techniques to utilize during the operation to minimize fracture risk and success of the procedure. After reviewing all this with her, she desires to proceed. I discussed the risk of the procedure to include bleeding, infection, pain, stiffness, fracture, patellar instability, extensor lag, weakness, need for repeat procedures, hardware prominence, blood clot. Despite these risks, she elects to proceed. Qualifiers: Encounter type: subsequent encounter Qualified Code(s): T84.84XD - Pain due to internal orthopedic prosthetic devices, implants and grafts, subsequent encounter; Z96.652 - Presence of left artificial knee joint History of Present Illness History of Present Illness Chief Complaint: Left Knee Pain Narrative: Fay is 80-year-old who underwent a two-stage revision of the left knee. She recovered from the infection but continues have some pain about the left knee, mostly anteriorly. She has extensor lag as the patella was not resurfaced. She continued to have pain and eventually desires some to be done. I discussed patellar resurfacing with her. She also sought a second opinion who also agreed with proceeding with patellar revision with the necessary precautions. She continues have pain about the left knee and desires this to be done. She did have an increase in her A1c and has had medication changes including addition of insulin which has dramatically improved her glucose control. She has been cleared for surgery by her primary care provider. Review of Systems All systems reviewed & are unremarkable except as noted in HPI and below PFSH Medical History Abdominal discomfort, epigastric Acute blood loss anemia Asthma Candidal skin infection Depression with anxiety Dermatitis Diabetes (06/07/16) Gastroparesis GERD (gastroesophageal reflux disease) History of kidney stones Hyperlipidemia Incisional hernia Increased body mass index (BMI) Migraine (03/01/12) Nausea & vomiting Obesity Organic sleep apnea, unspecified Pt. denies this DR. CASH-12/10/10 (SEE SCANNED) SLEEP MEDICINE [facility] NOTE DR. CASH-01/12/11 (SEE SCANNED) 08/17/18: Pt reports that she does not have sleep apnea. -BR Pes anserinus bursitis of left knee Shoulder pain, left Shoulder pain, right Surgical History ABDOMINAL WALL HERNIA REPAIR Arthroplasty of knee LEFT AND RIGHT Cholecystectomy EGD - MAC (09/28/16) 07/19/13 H/O surgical procedure a. cholecystectomy b. hysterectomy c. tonsillectomy d. left knee arthroscopy e. EGD with MAC 07/19/2013 f. incisional hernia repair 09/2009, 06/28/2010 g. 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 Gongora Tonsillectomy (06/14/10) LILIYA; and uvula Family History Mother Depression Hyperlipidemia Father , 72 Diabetes Essential hypertension Heart disease Cancer Sister No problems noted. Maternal Grandfather , 80 Heart disease Hyperlipidemia Paternal Grandfather , 80 Diabetes Heart disease Hyperlipidemia Maternal Grandmother , 82 Diabetes Heart disease Paternal Grandmother , 73 Heart disease Hyperlipidemia Asthma Social History Smoking/Tobacco Use Status: Never Smoking risk assessment performed?: Yes Alcohol Intake: current Alcohol Intake frequency: holidays/special occasions only Drug use: Never Substance use type: does not use Details: alcohol: unknown last time Caregiver/Support person: No Household members: spouse Housing: apartment Communication Needs: None Do you need help understanding health information?: Rarely current occupation: Disabled Pets and animals: Yes Pets and animals: cat(s) and dog(s) Sexually active: No Do you think of yourself as: straight/heterosexual Current gender identity: female What is your relationship status?: How often do you talk on the phone with friends or family?: decline to answer How often do you get together with friends or relatives?: decline to answer How often do you attend restorationism or anabaptist services?: decline to answer Do you belong to any clubs or organized social groups?: no Panel score (0-1 are the most socially isolated patients): 1 What type of physical activity do you participate in: walking Duration: 15-30 minutes/day Frequency: 3-4 times per week Sita/Yarsanism: No preference Special sita needs: No Seatbelt use: always Helmet use: No Drive intox or ride w/intox stock car driver: No Do you feel safe at home: Yes Do you feel safe in your relationship?: Yes Meds Allergies and Home Medications Allergies Allergy/AdvReac Type Severity Reaction Status Date / Time latex Allergy Severe HIVES, Verified 07/21/20 09:11 ITCHING erythromycin base AdvReac Intermediate NAUSEA, Verified 07/21/20 09:11 VOMITING chlorhexidine AdvReac Mild Itching Verified 07/21/20 09:11 [From Hibiclens] codeine AdvReac NAUSEA, Verified 07/21/20 09:11 VOMITING Home Medications Medication Instructions Recorded Confirmed Type cholecalciferol (vitamin D3) 2,000 unit PO DAILY 05/19/15 07/21/20 History [Vitamin D3] blood-glucose meter [OneTouch #1 kit 06/13/16 07/21/20 History UltraMini] Compounded Pain Cream 2 gm TRANSDERMAL TID PRN #360 gm 04/17/19 07/21/20 Rx esomeprazole magnesium 40 mg 40 mg PO DAILY #90 tab-cap 06/10/19 07/21/20 Rx capsule,delayed release fluoxetine 20 mg capsule 20 mg PO DAILY #90 tab-cap 07/24/19 07/21/20 Rx fluoxetine 40 mg capsule 40 mg PO DAILY #90 tab-cap 07/24/19 07/21/20 Rx sucralfate 1 gram tablet 1 gm PO QACHS #120 tab 08/22/19 07/21/20 Rx magnesium oxide 500 mg capsule 500 mg PO DAILY #90 cap 08/26/19 07/21/20 Rx metformin 500 mg tablet 500 mg PO TID #270 tab 10/23/19 07/21/20 Rx cetirizine 10 mg tablet 10 mg PO DAILY #90 tab-cap 01/14/20 07/21/20 Rx montelukast 10 mg tablet 10 mg PO HS #90 tab 01/14/20 07/21/20 Rx albuterol sulfate 2.5 mg INHALATION Q6H PRN #360 ml 03/02/20 07/21/20 Rx fluticasone 500 mcg-salmeterol 50 1 inh INHALATION BID #1 puff 03/17/20 07/21/20 Rx mcg/dose blistr powdr for inhalation gabapentin 300 mg capsule 300 mg PO BID #60 cap 04/07/20 07/21/20 Rx diclofenac sodium 1 % topical gel 4 g TOPICAL QID #150 g 04/21/20 07/21/20 Rx lidocaine 5 % topical patch 3 patch TOPICAL DAILY #15 ea 04/21/20 07/21/20 Rx levalbuterol tartrate 45 2 inh INHALATION Q6H #45 g 05/26/20 07/21/20 Rx mcg/actuation aerosol inhaler tramadol 50 mg tablet 50 mg PO BID PRN #30 tab 06/05/20 07/21/20 Rx pen needle, diabetic 32 gauge x #100 ea 06/08/20 07/21/20 Rx 1/4 lancets #100 ea 06/15/20 07/21/20 Rx triamcinolone acetonide 0.5 % 1 applic TOPICAL daily prn #15 g 06/16/20 07/21/20 Rx topical cream blood sugar diagnostic #200 strip 06/30/20 07/21/20 Rx atorvastatin 10 mg tablet 10 mg PO QPM #90 tab 07/06/20 07/21/20 Rx ferrous sulfate 325 mg (65 mg 325 mg PO BID #60 tab 07/06/20 07/21/20 Rx iron) tablet acetaminophen 500 mg PO Q6H PRN #60 tab 07/21/20 Rx aspirin 81 mg PO BID 30 Days #60 tab 07/21/20 Rx celecoxib [Celebrex] 200 mg PO BID #30 cap 07/21/20 Rx cephalexin 500 mg PO TID 07/21/20 07/21/20 History docusate sodium [Colace] 100 mg PO BID #30 cap 07/21/20 Rx insulin glargine 16 unit SUBCUT QPM 07/21/20 07/21/20 History oxycodone 5 mg PO Q4H PRN #12 tab 07/21/20 Rx Exam Const General: cooperative Nutritional Appearance: average body habitus Resp Auscultation: clear to auscultation bilaterally and diminished lung sounds bilaterally (bases) Cardio Rate: regular rate Rhythm: regular rhythm Results Last Vital Signs Temp 36.1 C L 07/21/20 09:25 Pulse 75 07/21/20 09:25 Resp 18 07/21/20 09:25 BP 120/85 07/21/20 09:25 Pulse Ox 97 07/21/20 09:25
[2020-07-21] MEDS: ceFAZolin 2 GM/50 ML BAG IVPB (11:11)
[2020-07-21] MEDS: Normal Saline 20 ML VIAL (12:00)
[2020-07-21] MEDS: Bupivacaine 0.25% Pres-Free 30 ML VIAL (12:00)
[2020-07-21] MEDS: Ketorolac 30 MG/ML VIAL (12:00)
--- NOTE | 2020-07-21 12:39 | W.PM.OP ---
Date of service: 07/21/20 Time of Service: 12:40 Operative Note Operative Note DATE OF PROCEDURE: 05/01/19 PRE-OP DIAGNOSIS: Left Knee Pain after Revision Arthroplasty POST-OP DIAGNOSIS: same PROCEDURE: Revision Left Patller Resurfacing SURGEON: Raheel Gongora SITE INTERPRETER: Marilee Coughlin Refer to Anesthesia Record ESTIMATED BLOOD LOSS: 50 PATHOLOGY: none sent TOURNIQUET TIME: 0 COMPLICATIONS: None Patient was transported to: PACU Patient's condition: stable Implants: Depuy Attune Patellar Button, 38mm Indications: Fay is a 50yo female who has had symptoms of left anterior knee pain after a two-stage revision of the left knee with an unresurfaced patella. He also had an extensor lag with active motion. Conservative measures have been exhausted yet pain and dysfunction persisted. Please see office notes for complete details. Given the continued symptoms, I offered patellar resurfacing. I reviewed the risks of the procedure to include bleeding, infection, fracture, pain, stiffness, patellar instability, loosening, tendon avulsion, clot. Despite these risks, Fay elected to proceed. Findings: The tissue quality around the patella was actually quite good. There is complete healing of the medial retinaculum and the quadriceps from previous surgeries. The patella was debrided of any soft tissue was found to have an areas up to 14 mm of thickness and low spots approximate 11 mm of thickness. The majority of the patella had a minimum of 13 mm except for a very small area over the superior margin of the patella where there was thinning down to 10 to 11 mm. I was able to recut the patella with a minimum of 12 mm of thickness with a small depression only measuring approximately 5 mm in diameter at the superior portion of the patella. There were no rim defects. No other augmentation procedures were performed given the healthy bone bed for patellar placement and the patella was placed in a standard fashion. Procedure Description: Fay was greeted in the preoperative holding area where the correct side was identified and marked. The consent was reviewed with the patient and signed. The history and physical was updated. All questions were answered. Preoperative mediacations were administered: Acetaminophen 1000mg, Celebrex 400mg, and Gabapentin 300mg. Fay was taken back to the operating room. A general anesthestic was then administered. The patient was placed into the supine position on the operating room table. A nonsterile tourniquet was placed high onto the leg but not used. Posts were placed for positioning during the procedure. All bony prominences were well padded. Prophylactic antibiotics in the form of Cefazolin were administered. 1g of Tranxemic Acid was given intravenously within 30 minutes of incision. The left leg was then prepped with Chloraprep and draped in a standard fashion with impervious stockinette and extremity drape. A second prep with Chloraprep was performed prior to placing Ioband. A timeout to confirm correct identity, side and site, procedure, allergies, anesthesia, and medical concerns was performed. With the knee in some flexion, a midline incision was made overlying the knee. Full thickness skin flaps were raised once the extensor mechanism was encountered. These were raised medially and laterally. Any bleeding was controlled with electrocautery. Once the extensor mechanism was fully exposed, a medial parapatellar arthrotomy was performed in a flexed position. The tissue of the distal quadriceps as well as the medial retinaculum was actually of good quality and thickness. There is no gap or avulsion from the patella itself. The patella everted slightly I was able to perform a complete debridement of any soft tissue from the patella. This was done with electrocautery, rongeur, and curette. Once all the soft tissue was removed there is no obvious cement remaining. The patella measured at his thickness 14 mm and its thinnest about 11 mm. The area of 11 mm was a small depression superiorly about the patella. I then resected some of the patella to create a plantar surface using a freehand technique. With this completed I had approximately 12-1/2 to 13 mm of thickness uniformly across the patella except for very small area of depression superiorly which measured around 11 or so millimeters. There is an intact rim for the entirety except for a very small 5 mm portion superiorly and therefore without a significant cavitary lesion, I did not perform any augmentation procedures. Additionally, the bone quality was actually quite good with bleeding bone that appeared healthy and structurally sound. This was then thoroughly irrigated to make sure there is no other cement fragments or soft tissue remnants on the patella. The previous patella was a size 32. The goal today was to use the patellar button which went all the way to the rim of the takotna patella. The size 38 patella fit the best. This was oriented and then clamped into position. The patella was trialed and showed to track well. The lugs were drilled. High viscosity cement was prepared on the back table under vacuum preparation. When ready, cement was manually impacted into the cut surface of the patella and the patellar button was clamped into position and held. During this process attention was turned to the gutters of the knee and for all interfaces for any excess cement. While the cement was hardening, the knee was irrigated with Irrisept chlorhexadine solution. It was allowed to sit in the knee for 3 minutes. After the cement had finally cured, approximately 15min, the clamp was removed from the patella and the knee was taken through range of motion. The capsule was then reapproximated with a No. 1 Vicryl. The second dosing of 1g TXA was started. Deep tissues were then reapproximated with 0 Vicryl and 2-0 Vicryl. The skin was closed with a running 3-0 Monocryl in a subcuticular fashion. This was reinforced with skin glue. A Mepilex silver dressing was applied along with a [id number] CHICHO wrap. A CryoCuff was applied. Fay was transferred to the hospital bed without difficulty an suffering no apparent complication. Fay has a good prognosis given the residual thickness of the patella. Physical therapy will start today and without restrictions, weight-bearing as tolerated. Aspirin 81mg BID will be used for DVT prophylaxis. I will provide her with a knee immobilizer to use at night to keep her leg straight as well as when ambulating to heat some stress off the patella and the arthrotomy closure. She should also avoid deep flexion, greater than 90 degrees.
[2020-07-21 12:56] VITALS: BP 116/77; PULSE 71; RESP 18; TEMP 36.3; O2SAT 95
[2020-07-21 13:00] VITALS: BP 130/77; PULSE 66; RESP 17; TEMP 36.3; O2SAT 95
[2020-07-21 13:05] VITALS: BP 119/75; PULSE 68; RESP 19; TEMP 36.3; O2SAT 95
[2020-07-21 13:20] VITALS: BP 118/67; PULSE 65; RESP 16; TEMP 36.3; O2SAT 95
[2020-07-21 14:00] VITALS: BP 116/77; PULSE 65; RESP 16; TEMP 36.5; O2SAT 97
--- NOTE | 2020-07-21 14:41 | W.ANESPOSTOP ---
Postoperative Evaluation Date, Time and Location Date Performed: 07/21/20 Time Performed: 14:41 Patient Location: Day Surgery Unit Vital Signs Most Recent Imported Vital Signs: Most Recent Vital Signs Temp Pulse Resp BP Pulse Ox 36.5 C 65 16 116/77 97 07/21/20 14:00 07/21/20 14:00 07/21/20 14:00 07/21/20 14:00 07/21/20 14:00 Pain Score Most Recent Pain Score: Most Recent Pain Score Pain Level 0 07/21/20 14:00 Assessment Mental Status: Awake (Alert & Oriented to Patient Baseline) Airway and Respiratory Function: Patent airway with normal (patient baseline) respiratory exam Cardiovascular Function: Hemodynamically Stable Hydration Status: Adequately Hydrated Nausea & Vomiting: No Nausea or Vomiting Pain: Pt. Denies Any Pain Peripheral Nerve Block: Patient did not receive a nerve block Teaching Patient Teaching: Discussed Safe Use of Pain Medication Given Recent Anesthesia
== END 2020-07-21 15:03 | disposition home or self-care (01) ==
LOC: SUR 09:00
PROVIDERS: Visit Provider Student in an Organized Health Care Education/Training Program
PROC: (CPT 27447; principal; 2020-07-21 10:15)
DX: T84.84XA Pain due to internal orthopedic prosthetic devices, implants and grafts, initial encounter (principal); Z96.652 Presence of left artificial knee joint; E11.43 Type 2 diabetes mellitus with diabetic autonomic (poly)neuropathy; K21.9 Gastro-esophageal reflux disease without esophagitis; E78.5 Hyperlipidemia, unspecified
CPT/HCPCS: 27486; C1776; J0131; J0690; J1100; J1885; J2001; J2405

== ENCOUNTER → 2020-08-07 10:25 | Outpatient (BNVA) | payer MEDICARE, SELFPAY | PROVIDERS: Visit Provider Physician Assistant Surgical | DX: Z47.1 Aftercare following joint replacement surgery (principal); Z96.652 Presence of left artificial knee joint ==

== ENCOUNTER → 2020-08-14 09:39 | Outpatient (BNVA) | payer MEDICARE, SELFPAY | PROVIDERS: Visit Provider Student in an Organized Health Care Education/Training Program | DX: Z47.1 Aftercare following joint replacement surgery (principal); Z96.652 Presence of left artificial knee joint; R21 Rash and other nonspecific skin eruption ==

== ENCOUNTER → 2020-09-04 09:52 | Outpatient (BNVA) | payer MEDICARE, SELFPAY | PROVIDERS: Visit Provider Student in an Organized Health Care Education/Training Program | DX: Z47.1 Aftercare following joint replacement surgery (principal); Z96.652 Presence of left artificial knee joint; R21 Rash and other nonspecific skin eruption ==

== ENCOUNTER → 2020-10-16 09:30 | Outpatient (BNVA) | payer MEDICARE, SELFPAY | PROVIDERS: Visit Provider Student in an Organized Health Care Education/Training Program | DX: Z47.1 Aftercare following joint replacement surgery (principal); Z96.652 Presence of left artificial knee joint ==

== ENCOUNTER → 2020-12-07 09:29 | Outpatient (BNVA) | payer MEDICARE, SELFPAY | PROVIDERS: Visit Provider Student in an Organized Health Care Education/Training Program | DX: S76.112D Strain of left quadriceps muscle, fascia and tendon, subsequent encounter (principal); X58.XXXD Exposure to other specified factors, subsequent encounter | CPT/HCPCS: 99213 ==

== ENCOUNTER 2020-12-09 01:55 | Outpatient (CLI) | payer MEDICARE, SELFPAY ==
[2020-12-09 10:22] LABS: Source Nasal/Nares
[2020-12-09 13:53] LABS: COVID-19 PCR Negative (Negative)
== END 2020-12-09 01:56 | disposition home or self-care (01) ==
LOC: LBO 01:56
PROVIDERS: Visit Provider Student in an Organized Health Care Education/Training Program
DX: Z20.822 Contact with and (suspected) exposure to COVID-19 (principal); Z01.818 Encounter for other preprocedural examination
CPT/HCPCS: 87635

== ENCOUNTER 2020-12-14 02:08 | Outpatient (CLI) | payer MEDICARE, SELFPAY ==
[2020-12-14 12:22] LABS: Source Nasal/Nares
[2020-12-14 21:45] LABS: COVID-19 PCR Negative (Negative)
== END 2020-12-14 02:09 | disposition home or self-care (01) ==
LOC: LBO 02:12
PROVIDERS: Visit Provider Student in an Organized Health Care Education/Training Program
DX: Z20.822 Contact with and (suspected) exposure to COVID-19 (principal); Z01.818 Encounter for other preprocedural examination
CPT/HCPCS: 87635

== ENCOUNTER 2020-12-15 08:47 | Day surgery (SDC) | payer MEDICARE, SELFPAY ==
[2020-12-15] VITALS (7 sets, daily range): BP systolic 89–120; BP diastolic 59–83; PULSE 77–85; RESP 14–23; TEMP 36–36.9; O2SAT 95–99; BMI 33.3
--- NOTE | 2020-12-15 06:35 | ANES.PREOP_ITS ---
General Info Date of Service Date Performed: 12/15/20 Height: 5 ft 3 in Weight: 85.275 kg Body Mass Index (BMI): 33.3 Surgical Procedure: Operation Date: 12/15/20 09:55 Proposed Procedures Side Surgeon p KNEE QUAD TENDON REPAIR Left Raheel Gongora MD Meds Allergies and Home Medications Allergies Allergy/AdvReac Type Severity Reaction Status Date / Time latex Allergy Severe HIVES, Verified 12/15/20 08:58 ITCHING erythromycin base AdvReac Intermediate NAUSEA, Verified 12/15/20 08:58 VOMITING chlorhexidine AdvReac Mild Itching Verified 12/15/20 08:58 [From Hibiclens] codeine AdvReac NAUSEA, Verified 12/15/20 08:58 VOMITING Home Medication Medication Instructions Recorded cholecalciferol (vitamin D3) 2,000 unit PO DAILY 05/19/15 [Vitamin D3] blood-glucose meter [OneTouch #1 kit 06/13/16 UltraMini] Compounded Pain Cream 2 gm TRANSDERMAL TID PRN #360 gm 04/17/19 cetirizine 10 mg tablet 10 mg PO DAILY #90 tab-cap 01/14/20 montelukast 10 mg tablet 10 mg PO HS #90 tab 01/14/20 fluticasone 500 mcg-salmeterol 50 1 inh INHALATION BID #1 puff 03/17/20 mcg/dose blistr powdr for inhalation gabapentin 300 mg capsule 300 mg PO BID #60 cap 04/07/20 diclofenac sodium 1 % topical gel 4 g TOPICAL QID #150 g 04/21/20 levalbuterol tartrate 45 2 inh INHALATION Q6H #45 g 05/26/20 mcg/actuation aerosol inhaler pen needle, diabetic 32 gauge x #100 ea 06/08/2002/23 lancets #100 ea 06/15/20 triamcinolone acetonide 0.5 % 1 applic TOPICAL daily prn #15 g 06/16/20 topical cream blood sugar diagnostic #200 strip 06/30/20 atorvastatin 10 mg tablet 10 mg PO QPM #90 tab 07/06/20 ferrous sulfate 325 mg (65 mg 325 mg PO BID #60 tab 07/06/20 iron) tablet docusate sodium [Colace] 100 mg PO BID #30 cap 07/21/20 esomeprazole magnesium 40 mg 40 mg PO DAILY #90 tab-cap 07/29/20 capsule,delayed release insulin glargine 100 unit/mL (3 16 unit SUBCUT QPM #15 ml 07/31/20 mL) subcutaneous pen fluoxetine 20 mg capsule 20 mg PO DAILY #90 tab-cap 08/17/20 fluoxetine 40 mg capsule 40 mg PO DAILY #90 tab-cap 08/17/20 magnesium oxide 500 mg capsule 500 mg PO DAILY #90 cap 09/21/20 cephalexin 500 mg tablet 500 mg PO TID #90 tab 10/29/20 albuterol sulfate 2.5 mg INHALATION Q6H PRN #360 ml 11/02/20 metformin 500 mg tablet 500 mg PO TID #270 tab 11/02/20 sucralfate 1 gram tablet 1 g PO QACHS #120 tab 12/04/20 acetaminophen 1,000 mg PO Q8H PRN PRN #90 cap 12/15/20 aspirin 81 mg PO BID #60 tab 12/15/20 celecoxib 200 mg PO BID #60 cap 12/15/20 oxycodone 5 mg PO Q4H PRN #20 tab MDD 6 tabs 12/15/20 Current Visit Medications: Current Medications Generic Name Dose Route Start Last Admin Trade Name Freq PRN Reason Stop Dose Admin Acetaminophen 1,000 mg 12/15/20 06:00 Acetaminophen 500 Mg Tab PO 12/15/20 16:00 PREOP BROWN Celecoxib 400 mg 12/15/20 06:00 Celecoxib 200 Mg Cap PO 12/15/20 16:00 PREOP BROWN Gabapentin 300 mg 12/15/20 06:00 Gabapentin 300 Mg Cap PO 12/15/20 16:00 PREOP BROWN Ringer's Solution 1,000 mls @ 80 mls/hr 12/11/20 06:00 IV 01/09/21 23:59 INFUSION BROWN Tranexamic Acid 1,000 mg/ 60 mls @ 360 mls/hr 12/15/20 06:00 Sodium Chloride IVPB 12/15/20 16:00 PREOP BROWN Ringer's Solution 1,000 mls @ 80 mls/hr 12/15/20 06:00 IV 01/13/21 23:59 INFUSION BROWN Cefazolin Sodium/Dextrose 2 gm in 50 mls @ 100 mls/hr 12/15/20 06:00 Ancef Duplex IVPB 01/13/21 23:59 PREOP BROWN IV Miscellaneous Supplies 1 each 12/11/20 06:00 Iv Access IV 01/09/21 23:59 DIRECTED BROWN IV Miscellaneous Supplies 1 each 12/15/20 06:00 Iv Access IV 01/13/21 23:59 DIRECTED BROWN Sodium Chloride 0 ml 12/11/20 06:00 Normal Saline Flush 10 Ml Syr IV 01/09/21 23:59 PRN PRN Sodium Chloride 0 ml 12/11/20 06:00 Normal Saline 10 Ml Vial IJ 01/09/21 23:59 DIRECTED PRN Sodium Chloride 0 ml 12/15/20 06:00 Normal Saline Flush 10 Ml Syr IV 01/13/21 23:59 PRN PRN Sodium Chloride 0 ml 12/15/20 06:00 Normal Saline 10 Ml Vial IJ 01/13/21 23:59 DIRECTED PRN Sterile Water 0 ml 12/11/20 06:00 Water,Injection,Sterile 10 Ml Vial IJ 01/09/21 23:59 DIRECTED PRN Sterile Water 0 ml 12/15/20 06:00 Water,Injection,Sterile 10 Ml Vial IJ 01/13/21 23:59 DIRECTED PRN PFSH Active Problems Active Problems: Problem Status Onset Code Quadriceps muscle rupture S76.119A Increased body mass index (BMI) R63.8 Dermatitis L30.9 Tick bite W57.XXXA Shoulder pain, right M25.511 Shoulder pain, left M25.512 Nausea & vomiting R11.2 Tubular adenoma of colon D12.6 Colon polyp K63.5 At risk for aspiration Z91.89 Anxiety attack F41.0 Acute bronchitis J20.9 DVT prophylaxis 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 Hypertrophy of tonsils 04/19/10 J35.1 Pyloric ulcer associated with Helicobacter pylori 01/20/96 K25.9, B96.81 Gastroparesis K31.84 Gastroesophageal reflux disease with esophagitis K21.0 Dysfunctional uterine bleeding N93.8 Ureterolithiasis N20.1 Hydronephrosis concurrent with and due to calculi of kidney and ureter N13.2 RENAE (acute kidney injury) N17.9 Left knee pain M25.562 Right knee pain M25.561 Painful total knee replacement, left T84.84XA, Z96.652 Pes anserinus bursitis of left knee M70.52 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 Depression with anxiety F41.8 Abdominal discomfort, epigastric R10.13 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 Acute blood loss anemia D62 Asthma J45.909 Hyperlipidemia E78.5 Diabetes 06/07/16 E11.9 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, Z96.652 Migraine 03/01/12 G43.909 Organic sleep apnea, unspecified G47.30 Medical History Medical History Abdominal discomfort, epigastric Acute blood loss anemia Asthma Candidal skin infection Depression with anxiety Dermatitis Diabetes (06/07/16) Gastroparesis GERD (gastroesophageal reflux disease) History of kidney stones Hyperlipidemia Incisional hernia Increased body mass index (BMI) Migraine (03/01/12) Nausea & vomiting Obesity Organic sleep apnea, unspecified Pt. denies this DR. CASH-12/10/10 (SEE SCANNED) SLEEP MEDICINE [facility] NOTE DR. CASH-01/12/11 (SEE SCANNED) 08/17/18: Pt reports that she does not have sleep apnea. -BR Pes anserinus bursitis of left knee Shoulder pain, left Shoulder pain, right Surgical History Surgical History ABDOMINAL WALL HERNIA REPAIR Arthroplasty of knee LEFT AND RIGHT Cholecystectomy EGD - MAC (09/28/16) 07/19/13 H/O surgical procedure a. cholecystectomy b. hysterectomy c. tonsillectomy d. left knee arthroscopy e. EGD with MAC 07/19/2013 f. incisional hernia repair 09/2009, 06/28/2010 g. Nga fundoplication x 3 Hernia Repair, Incisional (~09/2009) 09/29 VENTRICAL X 4 06/28/10 lap repair w/ mesh: mulitple ventral hernia repairs 03/29/16 History of total right knee replacement Hx of cystoscopy Lithotripsy, stents x 3 Hysterectomy, Laproscopic 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) left TKA on 07/06/17 left knee synovectomy and polyethylene exchange on 08/22/17 irrigation and debridement with polyethylene exchange and placement of antibiotic beads on 09/13/17 explantation of left knee arthroplasty with placement of cement spacer on 10/19/17 2-stage revision left knee arthroplasty on 12/22/17 irrigation and debridement of left knee with antibiotic bead placement on 04/22/18 Nga Fundoplication X 3 Patellar clunk syndrome of right knee s/p left knee arthroscopy with synovectomy 12/12/2018 Quadriceps muscle rupture LEFT S/P Repair: 12/15/2020 Status post revision of total replacement of left knee Patellar resurfacing DOS: 07/21/2020 DOS: 12/22/17 Dr. Gongora Tonsillectomy (06/14/10) LILIYA; and uvula Tobacco Smoking/Tobacco Use Status: Never Passive smoking exposure: Yes Alcohol Alcohol Intake: current Alcohol intake frequency: holidays/special occasions only Substance Use Substance use: Never Substance use type: does not use Details: alcohol: unknown last time Vital Signs and Lab Results Vital Signs Most Recent Vital Signs in EMR: Temp Pulse Resp BP Pulse Ox 36.0 C L 81 16 120/83 99 12/15/20 08:59 12/15/20 08:59 12/15/20 08:59 12/15/20 08:59 12/15/20 08:59 Lab Results Blood Type / Crossmatch: No Data to Display Complete Blood Count: 2 No Data to Display Complete Metabolic Panel: No Data to Display Liver Function Panel: No Data to Display Coagulation Panel: No Data to Display Cardiac Panel: No Data to Display Arterial Blood Gas: No Data to Display Venous Blood Gas: No Data to Display Pancreas Panel: No Data to Display Thyroid Panel: No Data to Display Infectious Disease: Coronavirus (COVID-19)(PCR) Negative (Negative) 12/14/20 10:30 12/14/20 Coronavirus 2019 Source Nasal/Nares 12/14/20 10:30 12/14/20 Blood Cultures: No Data to Display Toxicology Panel: No Data to Display Panel: No Data to Display Anesthesia Assessment and Plan Anesthesia History Personal History: No History of Anesthesia Complications Family History: No Family History of Anesthesia Complications Exercise Tolerance Exercise Tolerance: Metabolic Equivalents<4 Cardiac & Pulmonary Exam Cardiac Exam: Normal S1/S2 Heart Sounds Pulmonary Exam: Clear Bilateral Breath Sounds Airway Exam Known Difficult Airway: No Mallampati Class: 3 Mouth Opening: Narrow (< 3cm) Thyromental Distance: Less than 3 cm Neck Range of Motion: Limited ROM Neck Circumference: Thick Teeth Condition: Loose or Chipped ASA Classification ASA Score: ASA 2 Emergency Case?: No NPO Status NPO Status: NPO Clears >2 hours, Solids >8 hours Status Status: Not Per Patient Anesthesia Plan Resuscitation Status: Full Code Anesthesia Technique: General Anesthesia Airway Planned: Endotracheal Tube Monitors Used: Standard Monitors Preoperative Comments:: 50 yo female well known to us with quad tendon rupture. denies any major change in her health history. History of bile on ETT after removal. Multiple previous airways: mac 3, mac 4, and glide 3 all grade 1. 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 BS 118 today.
--- NOTE | 2020-12-15 08:00 | PDOC.DSDIS_ITS ---
Documented by User: JESUS Hmuphreys 12/15/20 08:08 Discharge Plan Disposition Patient Disposition: HOME Condition: Good Discharge Details Reason For Visit: R quad repair Attending Provider: Raheel Gongora Primary Care Provider: Gissell Davis Home Meds and New Rx's Prescriptions: New celecoxib 200 mg capsule 200 mg PO BID Qty: 60 RF: 0 aspirin 81 mg tablet,delayed release (DR/EC) 81 mg PO BID Qty: 60 RF: 0 acetaminophen 500 mg capsule 1,000 mg PO Q8H PRN PRNQty: 90 RF: 0 oxycodone 5 mg tablet 5 mg PO Q4H MDD 6 tabs PRN (Reason: pain) Qty: 20 RF: 0 Continued fluticasone propion-salmeterol [Advair Diskus] 500-50 mcg/dose blister with device 1 inh Inhalation BID Qty: 1 RF: 12 diclofenac sodium [Voltaren] 1 % gel 4 g topical QID Qty: 150 RF: 1 triamcinolone acetonide 0.5 % cream 1 applic Topical daily prn Qty: 15 RF: 6 (DME) blood sugar diagnostic Strip 1 ea Miscellaneous DAILY Qty: 200 RF: 4 cholecalciferol (vitamin D3) [Vitamin D3] 2,000 UNIT capsule 2,000 unit PO DAILY RF: 0 (DME) blood-glucose meter [[employer] UltraMini] 1 EACH kit 1 ea Miscellaneous DAILY Qty: 1 RF: 0 Compounded Pain Cream 2 gm transdermal TID PRN Qty: 360 RF: 6 cetirizine 10 mg tablet 10 mg PO DAILY Qty: 90 RF: 4 montelukast [Singulair] 10 mg tablet 10 mg PO HS Qty: 90 RF: 3 gabapentin 300 mg capsule 300 mg PO BID Qty: 60 RF: 5 levalbuterol tartrate 45 mcg/actuation HFA aerosol inhaler 2 inh inhalation Q6H Qty: 45 RF: 4 (DME) pen needle, diabetic [Comfort EZ Pen [place]] 32 gauge x 1/4 needle See Rx Instructions .ROUTE .MEDSUPPLY Qty: 100 RF: 3 (DME) lancets [OneTouch UltraSoft Lancets] Misc 1 ea Miscellaneous DAILY Qty: 100 RF: 12 atorvastatin 10 mg tablet 10 mg PO QPM Qty: 90 RF: 3 ferrous sulfate 325 mg (65 mg iron) tablet 325 mg PO BID Qty: 60 RF: 12 esomeprazole magnesium [Nexium] 40 mg capsule,delayed release(DR/EC) 40 mg PO DAILY Qty: 90 RF: 3 insulin glargine 100 unit/mL (3 mL) insulin pen 16 unit subcut QPM Qty: 15 RF: 6 fluoxetine 40 mg capsule 40 mg PO DAILY Qty: 90 RF: 3 fluoxetine 20 mg capsule 20 mg PO DAILY Qty: 90 RF: 3 magnesium oxide 500 mg capsule 500 mg PO DAILY Qty: 90 RF: 3 cephalexin 500 mg tablet 500 mg PO TID Qty: 90 RF: 3 albuterol sulfate 2.5 mg /3 mL (0.083 %) solution for nebulization 2.5 mg Inhalation Q6H PRN Qty: 360 RF: 3 metformin 500 mg tablet 500 mg PO TID Qty: 270 RF: 3 sucralfate [Carafate] 1 gram tablet 1 g PO QACHS Qty: 120 RF: 11 docusate sodium [Colace] 100 mg capsule 100 mg PO BID Qty: 30 RF: 0 Discontinued acetaminophen 500 mg tablet 500 mg PO Q6H PRN (Reason: pain) Qty: 180 RF: 2 celecoxib [Celebrex] 200 mg capsule 200 mg PO BID Qty: 30 RF: 0 Discharge Instructions Additional Instructions: Quad Repair Discharge Instructions Activity: You may bear weight as tolerated on the leg as long as as you wear the knee immobilizer and you are using crutches or a walker for support. You should keep the immobilizer on at all times until your follow-up but you may remove it while not moving. You may use crutches or a walker to support the knee. You may discontinue the crutches/walker as tolerated. You may move your ankle and toes as needed. Dressing: You should keep the knee dressing in place until your follow-up appointment. If it becomes soiled or it unravels, you should call and notify the office. You may rewrap or overwrap until the follow-up. Medications: - You should take Tylenol and Celebrex around the clock for the first days- weeks. This will cover baseline pain control. - You have been prescribed a stronger medication if needed. If this is necessary, and you need a refill, please call the office at [phone]. Referrals: Raheel Gongora MD [ [facility] STAFF PHYSICIAN] - Equipment/Supplies: Partial Weight Bearing Crutches and Walker Activity:: Elevate Remove Dressings/Wound Care:: Do Not Remove Shower/Bathe:: Cover Diet:: As Tolerated Discharge Orders Discharge Orders: Discharge Order (Routine); Ordered 12/15/20 Ordered By: Mynor Durant DS: Diagnosis Discharge Diagnosis (1) Quadriceps muscle rupture: Status: Acute Documented by User: Raheel Gongora MD 12/15/20 11:14 Discharge Plan Disposition Patient Disposition: HOME Condition: Good Discharge Details Reason For Visit: R quad repair Attending Provider: Raheel Gongora Primary Care Provider: Gissell Davis Home Meds and New Rx's Prescriptions: New celecoxib 200 mg capsule 200 mg PO BID Qty: 60 RF: 0 aspirin 81 mg tablet,delayed release (DR/EC) 81 mg PO BID Qty: 60 RF: 0 acetaminophen 500 mg capsule 1,000 mg PO Q8H PRN PRNQty: 90 RF: 0 oxycodone 5 mg tablet 5 mg PO Q4H MDD 6 tabs PRN (Reason: pain) Qty: 20 RF: 0 Continued fluticasone propion-salmeterol [Advair Diskus] 500-50 mcg/dose blister with device 1 inh Inhalation BID Qty: 1 RF: 12 diclofenac sodium [Voltaren] 1 % gel 4 g topical QID Qty: 150 RF: 1 triamcinolone acetonide 0.5 % cream 1 applic Topical daily prn Qty: 15 RF: 6 (DME) blood sugar diagnostic Strip 1 ea Miscellaneous DAILY Qty: 200 RF: 4 cholecalciferol (vitamin D3) [Vitamin D3] 2,000 UNIT capsule 2,000 unit PO DAILY RF: 0 (DME) blood-glucose meter [[employer] UltraMini] 1 EACH kit 1 ea Miscellaneous DAILY Qty: 1 RF: 0 Compounded Pain Cream 2 gm transdermal TID PRN Qty: 360 RF: 6 cetirizine 10 mg tablet 10 mg PO DAILY Qty: 90 RF: 4 montelukast [Singulair] 10 mg tablet 10 mg PO HS Qty: 90 RF: 3 gabapentin 300 mg capsule 300 mg PO BID Qty: 60 RF: 5 levalbuterol tartrate 45 mcg/actuation HFA aerosol inhaler 2 inh inhalation Q6H Qty: 45 RF: 4 (DME) pen needle, diabetic [Comfort EZ Pen [place]] 32 gauge x 1/4 needle See Rx Instructions .ROUTE .MEDSUPPLY Qty: 100 RF: 3 (DME) lancets [OneTouch UltraSoft Lancets] Misc 1 ea Miscellaneous DAILY Qty: 100 RF: 12 atorvastatin 10 mg tablet 10 mg PO QPM Qty: 90 RF: 3 ferrous sulfate 325 mg (65 mg iron) tablet 325 mg PO BID Qty: 60 RF: 12 esomeprazole magnesium [Nexium] 40 mg capsule,delayed release(DR/EC) 40 mg PO DAILY Qty: 90 RF: 3 insulin glargine 100 unit/mL (3 mL) insulin pen 16 unit subcut QPM Qty: 15 RF: 6 fluoxetine 40 mg capsule 40 mg PO DAILY Qty: 90 RF: 3 fluoxetine 20 mg capsule 20 mg PO DAILY Qty: 90 RF: 3 magnesium oxide 500 mg capsule 500 mg PO DAILY Qty: 90 RF: 3 cephalexin 500 mg tablet 500 mg PO TID Qty: 90 RF: 3 albuterol sulfate 2.5 mg /3 mL (0.083 %) solution for nebulization 2.5 mg Inhalation Q6H PRN Qty: 360 RF: 3 metformin 500 mg tablet 500 mg PO TID Qty: 270 RF: 3 sucralfate [Carafate] 1 gram tablet 1 g PO QACHS Qty: 120 RF: 11 docusate sodium [Colace] 100 mg capsule 100 mg PO BID Qty: 30 RF: 0 Discontinued acetaminophen 500 mg tablet 500 mg PO Q6H PRN (Reason: pain) Qty: 180 RF: 2 celecoxib [Celebrex] 200 mg capsule 200 mg PO BID Qty: 30 RF: 0 Discharge Instructions Additional Instructions: Quad Repair Discharge Instructions Activity: You may bear weight as tolerated on the leg as long as as you wear the knee immobilizer and you are using crutches or a walker for support. You should keep the immobilizer on at all times until your follow-up but you may remove it while not moving. You may use crutches or a walker to support the knee. You may discontinue the crutches/walker as tolerated. You may move your ankle and toes as needed. Dressing: You should keep the knee dressing in place until your follow-up appointment. If it becomes soiled or it unravels, you should call and notify the office. You may rewrap or overwrap until the follow-up. Medications: - You should take Tylenol and Celebrex around the clock for the first days- weeks. This will cover baseline pain control. - You have been prescribed a stronger medication if needed. If this is necessary, and you need a refill, please call the office at [phone]. Referrals: Raheel Gongora MD [ [facility] STAFF PHYSICIAN] - Equipment/Supplies: Partial Weight Bearing Crutches and Walker Activity:: Elevate Remove Dressings/Wound Care:: Do Not Remove Shower/Bathe:: Cover Diet:: As Tolerated Discharge Orders Discharge Orders: Discharge Order (Routine); Ordered 12/15/20 Ordered By: Mynor Durant
[2020-12-15] MEDS: Gabapentin 300 MG CAP PO (09:24)
[2020-12-15] MEDS: Celecoxib 200 MG CAP 400 MG PO (09:24)
[2020-12-15] MEDS: Acetaminophen 500 MG TAB 1000 MG PO (09:25)
[2020-12-15] MEDS: Lactated Ringers 1,000 ML 80 ML IV (09:26)
[2020-12-15] MEDS: ceFAZolin 2 GM/50 ML BAG IVPB (10:02)
[2020-12-15] MEDS: Ketorolac 30 MG/ML VIAL (10:35)
[2020-12-15] MEDS: Bupivacaine 0.25% Pres-Free 30 ML VIAL (10:35)
--- NOTE | 2020-12-15 11:55 | W.ANESPOSTOP ---
Postoperative Evaluation Date, Time and Location Date Performed: 12/15/20 Time Performed: 11:55 Patient Location: Day Surgery Unit Vital Signs Most Recent Imported Vital Signs: Most Recent Vital Signs Temp Pulse Resp BP Pulse Ox 36.9 C 81 16 98/73 L 96 12/15/20 11:37 12/15/20 11:37 12/15/20 11:37 12/15/20 11:37 12/15/20 11:37 Pain Score Most Recent Pain Score: Most Recent Pain Score Pain Level 4 12/15/20 11:37 Assessment Mental Status: Awake (Alert & Oriented to Patient Baseline) Airway and Respiratory Function: Patent airway with normal (patient baseline) respiratory exam Cardiovascular Function: Hemodynamically Stable Hydration Status: Adequately Hydrated Nausea & Vomiting: No Nausea or Vomiting Pain: Pain is tolerable per patient Peripheral Nerve Block: Patient did not receive a nerve block
--- NOTE | 2020-12-15 15:56 | W.PM.OP ---
Date of service: 12/15/20 Time of Service: 10:56 Operative Note Operative Note DATE OF PROCEDURE: 12/15/20 PRE-OP DIAGNOSIS: Left quadriceps deficiency POST-OP DIAGNOSIS: same PROCEDURE: Repair of left quadriceps defect SURGEON: Raheel Gongora ANESTHESIA TYPE: General LMA/ETT Refer to Anesthesia Record ESTIMATED BLOOD LOSS: 5 PATHOLOGY: none sent TOURNIQUET TIME: 0 COMPLICATIONS: None Patient was transported to: PACU Patient's condition: stable Indications: Fay is a 50-year-old who has had multiple surgeries to her left knee. Most recently, she had revision of her patella. She had been doing well but continued have some pain over the superomedial aspect of the patella. Ultrasound demonstrated a defect of the quadriceps and the arthrotomy repair. Given the persistent pain in this defect seen on the ultrasound, I recommended repair. I discussed the risk of the procedure to include bleeding, infection, pain, stiffness, continued weakness, continued symptoms. Despite these risk, she elects to proceed. Findings: There is a small defect approximately 2-1/2 cm in length from the superior aspect of patella to the midportion of the patella. The defect in the middle which was scarred was incised and debrided back to healthy appearing tissue. A pants over vest repair was performed bringing the healthier medial tissue back on top of and adjacent to the patella and the medial edge of the quadriceps tendon. This was secured with #2 FiberWire. Procedure Description: Fay was greeted the preoperative holding area. Her identity was confirmed the correct site was identified and marked. The consent was reviewed with the patient and signed. History and physical was updated. She was brought back to the operating room placed in the supine position. All bony prominences well-padded. Prophylactic antibiotics in the form of cefazolin were administered. The left leg was prepped ChloraPrep and draped in standard fashion. A timeout was performed for safe surgery. After the initial draping had been performed a secondary scrub was performed with ChloraPrep. Ioban was applied. Then, the central one third of the previous incision was incised sharply until the extensor mechanism was encountered. Medial lateral flaps were raised to have better visualization of this area. The defect was palpable. The medial edge of the quadriceps tendon at the patella was palpated with a defect between it and the lateral edge of the vastus medialis obliqus insertion. This was incised in the midportion and a rongeur was utilized along with a knife and electrocautery to debride some of the scar material. I did not want to violate the healthy tenderness or retinacular material. I then used gravity flow to irrigate the knee. There are no signs of infection. There is no significant synovitis seen within the knee itself from this limited arthrotomy. I also irrigated the wound with irrisept chlorhexidine solution. I then used a #2 FiberWire to repair this quadriceps defect. A pants over vest type technique was performed where the medial edge of that vastus medialis was brought over the top onto the edge of the patella and the quadriceps. This left the remnant of scar tissue and lateral edge of the VMO on top of the quadriceps and the patella. This was secured in a mattress type fashion and then the free edge was once again secured with large [id number] sutures. This was repeated for the defect until it was secured completely. This was tested at the 90 degrees of flexion where it was stable. There is no other defects palpable. The knee was then irrigated with irrisept chlorhexidine solution. The skin and deep tissues were injected with a mixture of 0.25% bupivacaine, ketorolac, 20 cc of Exparel. The deep layer was closed with #2-0 Monocryl. The skin was closed with ced. A Mepilex silver dressing was applied followed by a foot to thigh Lawrence wrap. She was then placed into a knee immobilizer. At the end the case all counts are correct. She did tolerate the procedure well was transferred back to the PACU in a stable condition.
== END 2020-12-15 12:30 | disposition home or self-care (01) ==
LOC: SUR 08:47
PROVIDERS: Visit Provider Student in an Organized Health Care Education/Training Program
PROC: (CPT 27385; principal; 2020-12-15 09:45)
DX: S76.112A Strain of left quadriceps muscle, fascia and tendon, initial encounter (principal); J45.909 Unspecified asthma, uncomplicated; F41.8 Other specified anxiety disorders; E11.9 Type 2 diabetes mellitus without complications; E78.5 Hyperlipidemia, unspecified; E66.9 Obesity, unspecified
CPT/HCPCS: 27385; J0690; J1100; J1885; J2001; J2405; J2704

== ENCOUNTER → 2020-12-28 09:53 | Outpatient (BNVA) | payer MEDICARE, SELFPAY | DX: Z47.89 Encounter for other orthopedic aftercare (principal) ==

== ENCOUNTER → 2021-01-29 10:17 | Outpatient (BNVA) | payer MEDICARE, SELFPAY | PROVIDERS: Visit Provider Student in an Organized Health Care Education/Training Program | DX: Z47.89 Encounter for other orthopedic aftercare (principal) ==

== ENCOUNTER → 2021-03-12 09:29 | Outpatient (BNVA) | payer MEDICARE, SELFPAY | PROVIDERS: Visit Provider Student in an Organized Health Care Education/Training Program | DX: Z47.89 Encounter for other orthopedic aftercare (principal) ==

== ENCOUNTER 2021-04-15 11:46 | Outpatient (CLI) | payer MEDICARE, SELFPAY ==
--- NOTE | 2021-04-15 11:00 | DI.RAD_ITS ---
Exam(s) XR KNEE LT 3V AP,LAT,ANNE EXAM: XR KNEE LT 3V AP,LAT,ANNE CLINICAL HISTORY: left knee injury. TECHNIQUE: 2D digital imaging was performed. COMPARISON: CR XR KNEE LT 3V AP,LAT,ANNE from 05/29/2020 FINDINGS: Components of the left knee prosthesis remain stable. No fracture evident. Linear lucency subjacent to the tibial plateau component is unchanged from the May 2020 study. No other significant findin gs IMPRESSION: DATA REPOSITORY: RADIATION DOSE DELIVERED:
--- NOTE | 2021-04-15 11:23 | DI.RAD_ITS ---
Exam(s) XR ANKLE LT COMPLETE EXAM: XR ANKLE LT COMPLETE CLINICAL HISTORY: left knee injury. TECHNIQUE: 2D digital imaging was performed. COMPARISON: No exams were available for comparison FINDINGS: There is no evidence of fracture or widening of the ankle mortise. Talar dome appears unremarkable. No obvious degenerative changes in the tibiotalar joint. Subtalar joint also appears unremarkable. Calcaneus unremarkable. There is no prominent soft tissue swelling. IMPRESSION: DATA REPOSITORY: RADIATION DOSE DELIVERED:
== END 2021-04-15 11:47 | disposition home or self-care (01) ==
LOC: DIORS 11:47
PROVIDERS: Visit Provider Physician Assistant
DX: Z96.652 Presence of left artificial knee joint; X58.XXXA Exposure to other specified factors, initial encounter; S93.402A Sprain of unspecified ligament of left ankle, initial encounter; S83.412A Sprain of medial collateral ligament of left knee, initial encounter; M70.52 Other bursitis of knee, left knee
CPT/HCPCS: 73562; 99213; 73610

== ENCOUNTER → 2021-06-03 09:38 | Outpatient (BNVA) | payer MEDICARE, SELFPAY | DX: S83.412A Sprain of medial collateral ligament of left knee, initial encounter (principal); S93.402A Sprain of unspecified ligament of left ankle, initial encounter; S76.112A Strain of left quadriceps muscle, fascia and tendon, initial encounter; X58.XXXA Exposure to other specified factors, initial encounter | CPT/HCPCS: 99214 ==

== ENCOUNTER 2021-06-28 01:13 | Outpatient (CLI) | payer MEDICARE, SELFPAY ==
[2021-06-28 11:20] LABS: Source Nasal/Nares
[2021-06-28 19:01] LABS: COVID-19 PCR Negative (Negative)
== END 2021-06-28 01:14 | disposition home or self-care (01) ==
LOC: LBO 01:14
PROVIDERS: Visit Provider Student in an Organized Health Care Education/Training Program
DX: Z20.822 Contact with and (suspected) exposure to COVID-19 (principal); Z01.818 Encounter for other preprocedural examination
CPT/HCPCS: 87635; U0005

== ENCOUNTER 2021-06-30 09:31 | Day surgery (SDC) | payer MEDICARE, SELFPAY ==
[2021-06-30] VITALS (7 sets, daily range): BP systolic 97–143; BP diastolic 58–93; PULSE 86–93; RESP 16–23; TEMP 36.3–37.1; O2SAT 93–98; BMI 32.3
[2021-06-30] MEDS: Lactated Ringers 1,000 ML 80 ML IV (10:15)
--- NOTE | 2021-06-30 10:37 | W.PM.DSUDISC ---
Discharge Plan Disposition Patient Disposition: HOME Condition: Good Discharge Details Reason For Visit: Excision suture material L knee Attending Provider: Raheel Gongora Primary Care Provider: Gissell Davis Home Meds and New Rx's Prescriptions: New acetaminophen 500 mg tablet 1,000 mg PO TID Qty: 90 0RF ibuprofen 600 mg tablet 600 mg PO TID PRN (Reason: pain) Qty: 90 0RF Continued fluticasone propion-salmeterol [Advair Diskus] 500-50 mcg/dose blister with device 1 inh Inhalation BID Qty: 1 12RF diclofenac sodium [Voltaren] 1 % gel 4 g topical QID Qty: 150 1RF Rx Instructions: apply to bilateral shoulders up to 4 times per as needed triamcinolone acetonide 0.5 % cream 1 applic Topical daily prn Qty: 15 6RF Rx Instructions: Apply thin layer once daily to hands and arm as needed (DME) blood sugar diagnostic Strip 1 ea Miscellaneous DAILY Qty: 200 4RF Rx Instructions: Dx:E11.9 celecoxib [Celebrex] 200 mg capsule 200 mg PO BID Qty: 30 0RF Rx Instructions: Take one tablet twice daily cholecalciferol (vitamin D3) [Vitamin D3] 2,000 UNIT capsule 2,000 unit PO DAILY 0RF (DME) blood-glucose meter [[employer] UltraMini] 1 EACH kit 1 ea Miscellaneous DAILY Qty: 1 0RF Compounded Pain Cream 2 gm transdermal TID PRN Qty: 360 6RF Rx Instructions: Diclofenac 5%, Baclofen 2%, Cyclobenzaprine 2%, Gabapentin 10%, Bupivacaine 2% Substitute as indicated for coverage and availability. cetirizine 10 mg tablet 10 mg PO DAILY Qty: 90 4RF levalbuterol tartrate 45 mcg/actuation HFA aerosol inhaler 2 inh inhalation Q6H Qty: 45 4RF (DME) lancets [OneTouch UltraSoft Lancets] Misc 1 ea Miscellaneous DAILY Qty: 100 12RF Rx Instructions: dx:E11.9 atorvastatin 10 mg tablet 10 mg PO QPM Qty: 90 3RF esomeprazole magnesium [Nexium] 40 mg capsule,delayed release(DR/EC) 40 mg PO DAILY Qty: 90 3RF fluoxetine 40 mg capsule 40 mg PO DAILY Qty: 90 3RF Rx Instructions: Take with 20mg cap for a total of 60mg fluoxetine 20 mg capsule 20 mg PO DAILY Qty: 90 3RF Rx Instructions: Take with 40mg cap for a total of 60mg magnesium oxide 500 mg capsule 500 mg PO DAILY Qty: 90 3RF cephalexin 500 mg tablet 500 mg PO TID Qty: 90 3RF metformin 500 mg tablet 500 mg PO TID Qty: 270 3RF Rx Instructions: Take 1000mg in AM and 500mg in PM montelukast [Singulair] 10 mg tablet 10 mg PO HS Qty: 90 3RF gabapentin 300 mg capsule 300 mg PO BID Qty: 60 5RF sucralfate [Carafate] 1 gram tablet 1 g PO QACHS Qty: 120 11RF Rx Instructions: Take 30 minutes before meals and at bedtime ferrous sulfate 325 mg (65 mg iron) tablet 325 mg PO BID Qty: 60 12RF albuterol sulfate 2.5 mg /3 mL (0.083 %) solution for nebulization 2.5 mg Inhalation Q6H PRN Qty: 360 3RF Label Comments: 07/03/17 Per pt uses every night.jw Rx Instructions: 1 vial via neb q 6 hr prn wheezing 0.083% insulin glargine 100 unit/mL (3 mL) insulin pen 16 unit subcut QPM Qty: 15 6RF (DME) pen needle, diabetic [Comfort EZ Pen [place]] 32 gauge x 1/4 needle See Rx Instructions .ROUTE .MEDSUPPLY Qty: 100 3RF Rx Instructions: As directed Discontinued acetaminophen 500 mg capsule 1,000 mg PO Q8H PRN PRN (Reason: pain) Qty: 90 11RF Discharge Instructions Additional Instructions: Excision foreign body discharge Instructions Activity: You may bear weight as tolerated, using crutches only for support/comfort. You should apply ice to help with swelling and elevate when possible (especially in the first few days). Dressings: The knee bandage may come down after 72 hours. You have a staple skin closure. You may shower and get the wound wet at that time. You may keep the wounds covered with a light gauze wrap or large bandaid. Medications: - Rarely does this require any stronger pain medications. - Recommend to take up to 1000mg of Acetaminophen (Tylenol) and 600mg of Ibuprofen (Advil) every 8 hours as needed. These larger strength tablets were called in but you also may use [id number]. Follow-up: 7-10 days Referrals: Raheel Gongora MD [ [facility] STAFF PHYSICIAN] - Activity:: Activity as Tolerated Remove Dressings/Wound Care:: 72 hours Shower/Bathe:: 72 hours Diet:: As Tolerated Discharge Orders Discharge Orders: Discharge Order (Routine); Ordered 06/30/21 Ordered By: Mynor Durant DS: Diagnosis Discharge Diagnosis (1) Quadriceps muscle rupture: Status: Acute
--- NOTE | 2021-06-30 10:54 | W.ANESPRE ---
General Info Date of Service Date Performed: 06/30/21 Height: 5 ft 3 in Weight: 82.9 kg Body Mass Index (BMI): 32.3 Surgical Procedure: Operation Date: 06/30/21 13:10 Proposed Procedure Side Surgeon p Deep Suture Removal Knee Left Raheel Gongora MD Meds Allergies and Home Medications Allergies Allergy/AdvReac Type Severity Reaction Status Date / Time latex Allergy Severe HIVES, Verified 06/30/21 09:46 ITCHING erythromycin base AdvReac Intermediate NAUSEA, Verified 06/30/21 09:46 VOMITING chlorhexidine AdvReac Mild Itching Verified 06/30/21 09:46 [From Hibiclens] codeine AdvReac NAUSEA, Verified 06/30/21 09:46 VOMITING Home Medication Medication Instructions Recorded cholecalciferol (vitamin D3) 50 2,000 unit PO DAILY 05/19/15 mcg (2,000 unit) capsule (Vitamin D3) blood-glucose meter (SimpliVTTouch #1 06/13/16 UltraMini) Compounded Pain Cream 2 gm TRANSDERMAL TID PRN #360 gm 04/17/19 cetirizine 10 mg tablet 10 mg PO DAILY #90 tab-cap 01/14/20 fluticasone 500 mcg-salmeterol 50 1 inh INHALATION BID #1 puff 03/17/20 mcg/dose blistr powdr for inhalation (Advair Diskus) diclofenac sodium 1 % topical gel 4 g TOPICAL QID #150 g 04/21/20 (Voltaren) levalbuterol tartrate 45 2 inh INHALATION Q6H #45 g 05/26/20 mcg/actuation aerosol inhaler lancets (SimpliVTTouch UltraSoft #100 ea 06/15/20 Lancets) triamcinolone acetonide 0.5 % 1 applic TOPICAL daily prn #15 g 06/16/20 topical cream blood sugar diagnostic #200 strip 06/30/20 atorvastatin 10 mg tablet 10 mg PO QPM #90 tab 07/06/20 esomeprazole magnesium 40 mg 40 mg PO DAILY #90 tab-cap 07/29/20 capsule,delayed release (Nexium) fluoxetine 20 mg capsule 20 mg PO DAILY #90 tab-cap 08/17/20 fluoxetine 40 mg capsule 40 mg PO DAILY #90 tab-cap 08/17/20 magnesium oxide 500 mg capsule 500 mg PO DAILY #90 cap 09/21/20 cephalexin 500 mg tablet 500 mg PO TID #90 tab 10/29/20 metformin 500 mg tablet 500 mg PO TID #270 tab 11/02/20 celecoxib 200 mg capsule (Celebrex) 200 mg PO BID #30 cap 04/15/21 gabapentin 300 mg capsule 300 mg PO BID #60 cap 04/16/21 montelukast 10 mg tablet 10 mg PO HS #90 tab 04/16/21 (Singulair) sucralfate 1 gram tablet (Carafate) 1 g PO QACHS #120 tab 04/16/21 ferrous sulfate 325 mg (65 mg 325 mg PO BID #60 tab 04/19/21 iron) tablet albuterol sulfate 2.5 mg (3 mL) INHALATION Q6H PRN 04/20/21 #360 ml insulin glargine 100 unit/mL (3 16 unit (0.16 mL) SUBCUT QPM #15 ml 05/18/21 mL) subcutaneous pen pen needle, diabetic 32 gauge x #100 ea 05/24/2102/23 (Comfort EZ Pen [place]) acetaminophen 500 mg tablet 1,000 mg PO TID #90 tab 06/30/21 ibuprofen 600 mg tablet 600 mg PO TID PRN #90 tab 06/30/21 Current Visit Medications: Current Medications Generic Name Dose Route Start Last Admin Trade Name Markieq PRN Reason Stop Dose Admin Acetaminophen 650 mg 06/30/21 10:36 Acetaminophen 325 Mg Tab PO Q4H PRN PRN Ringer's Solution 1,000 mls @ 80 mls/hr 06/30/21 06:00 IV 07/29/21 23:59 INFUSION BROWN Cefazolin Sodium/Dextrose 2 gm in 50 mls @ 100 mls/hr 06/30/21 06:00 Ancef Duplex IVPB 07/29/21 23:59 PREOP BROWN IV Miscellaneous Supplies 1 each 06/30/21 06:00 Iv Access IV 07/29/21 23:59 DIRECTED BROWN Sodium Chloride 0 ml 06/30/21 06:00 Normal Saline Flush 10 Ml Syr IV 07/29/21 23:59 PRN PRN Sodium Chloride 0 ml 06/30/21 06:00 Normal Saline 10 Ml Vial IJ 07/29/21 23:59 DIRECTED PRN Sterile Water 0 ml 06/30/21 06:00 Water,Injection,Sterile 10 Ml Vial IJ 07/29/21 23:59 DIRECTED PRN PFSH Active Problems Active Problems: Problem Status Onset Code Painful orthopaedic hardware T84.84XA MCL sprain of left knee S83.412A Left ankle sprain S93.402A Quadriceps muscle rupture S76.119A Increased body mass index (BMI) R63.8 Dermatitis L30.9 Tick bite W57.XXXA Shoulder pain, right M25.511 Shoulder pain, left M25.512 Nausea & vomiting R11.2 Tubular adenoma of colon D12.6 Colon polyp K63.5 At risk for aspiration Z91.89 Anxiety attack F41.0 Acute bronchitis J20.9 DVT prophylaxis 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 Hypertrophy of tonsils 04/19/10 J35.1 Pyloric ulcer associated with Helicobacter pylori 01/20/96 K25.9, B96.81 Gastroparesis K31.84 Gastroesophageal reflux disease with esophagitis K21.0 Dysfunctional uterine bleeding N93.8 Ureterolithiasis N20.1 Hydronephrosis concurrent with and due to calculi of kidney and ureter N13.2 RENAE (acute kidney injury) N17.9 Left knee pain M25.562 Right knee pain M25.561 Painful total knee replacement, left T84.84XA, Z96.652 Pes anserinus bursitis of left knee M70.52 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 Depression with anxiety F41.8 Abdominal discomfort, epigastric R10.13 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 Acute blood loss anemia D62 Asthma J45.909 Hyperlipidemia E78.5 Diabetes 06/07/16 E11.9 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 cholecystectomy b. hysterectomy c. tonsillectomy d. left knee arthroscopy e. EGD with MAC 07/19/2013 f. incisional hernia repair 09/2009, 06/28/2010 g. Nga fundoplication x 3 Hernia Repair, Incisional (~09/2009) 09/29 VENTRICAL X 4 06/28/10 lap repair w/ mesh: mulitple ventral hernia repairs 03/29/16 History of total right knee replacement Hx of cystoscopy Lithotripsy, stents x 3 Hysterectomy, Laproscopic Nga Fundoplication X 3 Tonsillectomy (06/14/10) LILIYA; and uvula Tobacco Smoking/Tobacco Use Status: Never Passive smoking exposure: Yes Alcohol Alcohol Intake: current Alcohol intake frequency: holidays/special occasions only Substance Use Substance use: Never Substance use type: does not use Details: alcohol: unknown last time Vital Signs and Lab Results Vital Signs Most Recent Vital Signs in EMR: Most Recent Vital Signs Temp Pulse Resp BP Pulse Ox 36.3 C L 86 18 143/93 H 98 06/30/21 09:54 06/30/21 09:54 06/30/21 09:54 06/30/21 09:54 06/30/21 09:54 Lab Results Blood Type / Crossmatch: No Data to Display Complete Blood Count: No Data to Display Complete Metabolic Panel: No Data to Display Liver Function Panel: No Data to Display Coagulation Panel: No Data to Display Cardiac Panel: No Data to Display Arterial Blood Gas: No Data to Display Venous Blood Gas: No Data to Display Pancreas Panel: No Data to Display Thyroid Panel: No Data to Display Infectious Disease: Coronavirus (COVID-19)(PCR) Negative (Negative) 06/28/21 10:49 06/28/21 Coronavirus 2019 Source Nasal/Nares 06/28/21 10:49 06/28/21 Blood Cultures: No Data to Display Toxicology Panel: No Data to Display Panel: No Data to Display Anesthesia Assessment and Plan Anesthesia History Personal History: No History of Anesthesia Complications Family History: No Family History of Anesthesia Complications Exercise Tolerance Exercise Tolerance: Metabolic Equivalents<4 Pertinent Negatives Pertinent Negatives: No Major Cardiovascular Symptoms or Complaints and No History of CVA/TIA Cardiac & Pulmonary Exam Cardiac Exam: Normal S1/S2 Heart Sounds Pulmonary Exam: Clear Bilateral Breath Sounds Implantable Cardiac Device Does patient have a Pacemaker or an ICD?: No Airway Exam Known Difficult Airway: No Mallampati Class: 3 Mouth Opening: Narrow (< 3cm) Thyromental Distance: Less than 3 cm Neck Range of Motion: Limited ROM Neck Circumference: Thick Teeth Condition: Loose or Chipped ASA Classification ASA Score: ASA 3 Emergency Case?: No NPO Status NPO Status: NPO Clears >2 hours, Solids >8 hours Status Status: History of Hysterectomy Anesthesia Plan Resuscitation Status: Full Code Anesthesia Technique: General Anesthesia Airway Planned: Endotracheal Tube Monitors Used: Standard Monitors
[2021-06-30] MEDS: ceFAZolin 2 GM/50 ML BAG IVPB (12:17)
[2021-06-30] MEDS: Bupivacaine 0.5% Pres-Free 30 ML VIAL (12:27)
--- NOTE | 2021-06-30 13:22 | W.ANESPOSTOP ---
Postoperative Evaluation Date, Time and Location Date Performed: 06/30/21 Time Performed: :22 Patient Location: Day Surgery Unit Vital Signs Most Recent Imported Vital Signs: Most Recent Vital Signs Temp Pulse Resp BP Pulse Ox 37.1 C 86 16 109/74 95 06/30/21 13:10 06/30/21 13:10 06/30/21 13:10 06/30/21 13:10 06/30/21 13:10 Pain Score Most Recent Pain Score: Most Recent Pain Score Pain Level 0 06/30/21 13:10 Assessment Mental Status: Awake (Alert & Oriented to Patient Baseline) Airway and Respiratory Function: Patent airway with normal (patient baseline) respiratory exam Cardiovascular Function: Hemodynamically Stable Hydration Status: Adequately Hydrated Nausea & Vomiting: No Nausea or Vomiting Pain: Pt. Denies Any Pain Peripheral Nerve Block: Patient did not receive a nerve block Postoperative Comments:: Discussed bile on OETT on extubation. Patient aware that she should always be intubated due to incompetent LES.
--- NOTE | 2021-06-30 21:17 | W.PM.OP ---
Date of service: 06/30/21 Time of Service: 12:30 Operative Note Operative Note DATE OF PROCEDURE: 06/30/21 PRE-OP DIAGNOSIS: Painful orthopaedic hardware (non-absorbable suture) of left knee POST-OP DIAGNOSIS: same PROCEDURE: Removal of deep suture from left knee SURGEON: Raheel Gongora ANESTHESIA TYPE: General LMA/ETT Refer to Anesthesia Record ESTIMATED BLOOD LOSS: 0 TOURNIQUET TIME: 0 Patient was transported to: PACU Patient's condition: stable Indications: Barbara is 51-year-old who underwent a repair of a quadriceps avulsion following revision knee replacement surgery. She had recovered well from this procedure but had multiple areas over the anterior knee at the site of the repair which were painful with prominent suture knot. Given this persistent discomfort I recommended suture removal. I discussed the risk of the procedure to include bleeding, infection, pain, stiffness, need for repeat procedures, loss of repair of the quadriceps. Despite these risk, she elects to proceed. Findings: There were 4 prominent FiberWire knots which were identified and removed without difficulty. Procedure Description: Fay was greeted in the preoperative holding area. Her identity was confirmed the correct site was identified and marked. The consent was reviewed the patient and signed. History and physical was updated. And was taken to the operating room placed in the supine position. The left knee was prepped with ChloraPrep and draped with standard black draping. A timeout was performed for safe surgery. Prophylactic antibiotics in the form of cefazolin were administered. Utilizing the previous midline incision about the knee, I sharply dissected the skin, approximately 3 cm. This was centered over the prominent suture knots were palpable. Blunt dissection was carried down to the bursal tissue and deeper tissue to identify the extensor mechanism and then the knots were identified with palpation. Once identified soft tissue on top of them were easily cleared and the knot was readily accessible. Using a rongeur I elevated the knots, cut 1 limb, and pulled the nail without difficulty. This was repeated for all 4 kn which were identified over the anterior knee. There is no significant bleeding. The wound was thoroughly irrigated. Subcutaneous and deep tissues were anesthetized with 0.5% bupivacaine. At the end the case all counts were correct. She is transferred back to the PACU in stable condition. She has no weightbearing restrictions. She will follow-up in 2 weeks.
== END 2021-06-30 14:00 | disposition home or self-care (01) ==
PROVIDERS: Visit Provider Student in an Organized Health Care Education/Training Program
PROC: (CPT 20680; principal; 2021-06-30 13:00)
DX: T84.84XA Pain due to internal orthopedic prosthetic devices, implants and grafts, initial encounter (principal); E11.43 Type 2 diabetes mellitus with diabetic autonomic (poly)neuropathy; K31.84 Gastroparesis; Z79.4 Long term (current) use of insulin; Z79.84 Long term (current) use of oral hypoglycemic drugs; S83.412D Sprain of medial collateral ligament of left knee, subsequent encounter; X58.XXXD Exposure to other specified factors, subsequent encounter
CPT/HCPCS: 20680; J0690; J1100; J1885; J2405

== ENCOUNTER → 2021-07-12 10:39 | Outpatient (BNVA) | payer MEDICARE, SELFPAY | PROVIDERS: Visit Provider Student in an Organized Health Care Education/Training Program | DX: T84.84XA Pain due to internal orthopedic prosthetic devices, implants and grafts, initial encounter (principal); Z47.1 Aftercare following joint replacement surgery ==

== ENCOUNTER 2021-07-20 02:51 | Outpatient (CLI) | payer MEDICARE, SELFPAY ==
[2021-07-20 14:20] LABS: Abs Immature Grans 0.04 10^3/uL (0.0-0.06); Absolute Basophil Count 0.01 10^3/uL (0.0-0.2); Absolute Eosinophil Count 0.27 10^3/uL (0.0-0.7); Absolute Lymphocyte Count 3.07 10^3/uL (1.2-3.4); Absolute Monocyte Count 0.56 10^3/uL (0.1-0.8); Absolute Neutrophil Count 5.57 10^3/uL (1.2-6.7); Basophils % 0.1; Eosinophils % 2.8; HCT 40.1 % (36.0-46.0); HGB 14.1 g/dL (11.2-15.7); Immature Grans % 0.4; Lymphocytes % 32.2; MCH 34.4 pg (27.0-33.0); MCHC 35.2 % (32.0-36.0); MCV 98 fL (80-95); MPV 10.9 fL (8.0-11.0); Monocytes % 5.9; Neutrophils % 58.6; Platelet Count 233 10^3/uL (130-400); WBC 9.52 10^3/uL (4.4-10.8)
[2021-07-20 15:35] LABS: ALT 55 U/L (14-59); AST 64 U/L (15-37); Albumin 3.6 g/dL (3.4-5.0); Alkaline Phosphatase 82 U/L (46-116); Anion Gap 11.6 mmol/L (3-11); BUN 11 mg/dL (7-18); Bilirubin, Total 0.9 mg/dL (0.2-1.0); CO2 24.4 mmol/L (21.0-32.0); CREATININE 0.9 mg/dL (0.55-1.02); Calcium 9.4 mg/dL (8.5-10.1); Chloride 102 mmol/L (98-107); Glucose 222 mg/dL (74-106); Potassium 4.3 mmol/L (3.5-5.1); Sodium 138 mmol/L (136-145); Total Protein 7.3 g/dL (6.4-8.2)
== END 2021-07-20 02:52 | disposition home or self-care (01) ==
LOC: LBO 02:52
DX: R10.11 Right upper quadrant pain (principal)
CPT/HCPCS: 36415; 80053; 85025

== ENCOUNTER → 2021-09-20 10:45 | Outpatient (BNVA) | payer MEDICARE, SELFPAY | PROVIDERS: Visit Provider Student in an Organized Health Care Education/Training Program | DX: M25.461 Effusion, right knee (principal); Z96.651 Presence of right artificial knee joint | CPT/HCPCS: 99213 ==

== ENCOUNTER → 2021-11-05 11:26 | Outpatient (CLI) | payer MEDICARE, SELFPAY ==
--- NOTE | 2021-11-05 11:14 | DI.RAD_ITS ---
Exam(s) XR LUMBAR SPINE COMPLETE EXAM: XR LUMBAR SPINE COMPLETE CLINICAL HISTORY: vertebral alignment, lumbar back pain, M54.50. TECHNIQUE: 2D digital imaging was performed. COMPARISON: No exams were available for comparison FINDINGS: Five views No evidence of fracture, listhesis, or pars defects. There is minimal multilevel disc space narrowin g at L2-3, L3-4, and L4-5 levels. L5-S1 level exhibits normal height as does L1-2 and T12-L1. Facet joints are unremarkable. SI joints unremarkable. No scoliosis. Bone density normal. Multiple surgical clips are noted in the right-side of the abdomen. There has also been previous cho lecystectomy. IMPRESSION: Subtle multilevel mild disc space narrowing. DATA REPOSITORY: RADIATION DOSE DELIVERED:
== END ==
PROVIDERS: Visit Provider Nurse Practitioner Family
DX: M48.061 Spinal stenosis, lumbar region without neurogenic claudication (principal)
CPT/HCPCS: 72110

== ENCOUNTER → 2021-11-25 08:18 | Outpatient (BNVA) | payer MEDICARE, SELFPAY | PROVIDERS: Visit Provider Student in an Organized Health Care Education/Training Program | DX: M75.81 Other shoulder lesions, right shoulder (principal); M75.21 Bicipital tendinitis, right shoulder; G56.01 Carpal tunnel syndrome, right upper limb | CPT/HCPCS: 20610; J1040 ==

== ENCOUNTER → 2021-12-30 02:30 | Outpatient (CLI) | payer MEDICARE, SELFPAY ==
--- NOTE | 2021-12-30 | DI.CT_ITS ---
Exam(s) CT CHEST/ABD/PEL W EXAM: CT CHEST/ABD/PEL W CLINICAL HISTORY: PARAESOPHAGEAL HERNIA,K44.9 TECHNIQUE: Imaging Protocol: Axial computed tomography images with coronal and sagittal reformatted images were created and reviewed CONTRAST MATERIAL: Intravenous: Omnipaque 350 contrast volume:100 mL Oral: Yes COMPARISON: CT CT renal colic wo from 10/15/2018 FINDINGS: CHEST: Tracheobronchial tree: Patent where visualized. Pulmonary parenchyma: There is a 8.6 mm spiculated like lesion in the right upper lobe. No other pul monary nodules are seen. No focal consolidating infiltrates are seen. No architectural distortion. Visualized thyroid gland: Unremarkable. Mediastinum and Niesha: No dominant adenopathy or fluid collection. The esophagus is unremarkable. The re is a small esophageal hernia. Pleura: No effusion or pneumothorax. Heart: The heart is not dilated. No coronary artery calcifications are seen. No pericardial effusion. Pulmonary arteries: The pulmonary arteries are inadequately opacified for evaluation of pulmonary emb lena. No large central pulmonary embolus is seen. Aorta: Thoracic aorta non-dilated. Lymph nodes: Within normal limits. Soft tissues: Unremarkable. Bones:Within normal limits for the patient's age. ABDOMEN: Liver: There is fatty infiltration of the liver. No measurable mass. Portal, Superior Mesenteric, and Splenic Veins: Unremarkable. Gallbladder and Biliary Tract: Status post cholecystectomy. No biliary ductal dilatation. Pancreas: Normal density, no abnormal calcifications or inflammatory process. Spleen: Normal. Adrenals: No masses seen. Kidneys: Normal size, contour and axis. Bilateral nephrolithiasis. No masses seen. Abdominal Aorta: Abdominal portion non-dilated. Atherosclerosis is present. Bowel: No obstruction or bowel wall thickening. Appendix is unremarkable. Peritoneal Cavity: No ascites, collection or mesenteric inflammatory response. No free air. Lymph Nodes: Within normal limits. Bones: Within normal limits for the patient's age. Soft Tissues: Postsurgical changes in the anterior abdominal wall. PELVIS: Bladder: The urinary bladder is incompletely distended but grossly unremarkable. Reproductive Organs: Unremarkable as visualized. Lymph Nodes: Within normal limits. Bones: Within normal limits. IMPRESSION: 1. Small hiatal hernia. 2. 8.6 mm spiculated lesion in the right upper lobe. It's irregular margins are concerning and neopl asm should be considered. A PET-CT scan should be considered for further evaluation. 3. No acute abdominal or pelvic process. RADIATION DOSE DELIVERED: 1,298.92mGy.cm Total DLP DATA REPOSITORY: All CT scans at this facility are submitted to the National Radiology Data Registry (NRDR) Dose Index Registry (DIR) with the [employer] (A[employer]). RADIATION OPTIMIZATION: All CT scans at this facility use at least one of these dose optimization te chniques: automated exposure control; mA and/or kV adjustment per patient size (includes targeted exa ms where dose is matched to clinical indication); or iterative reconstruction.
[2021-12-30 11:24] LABS: CREATININE 1.1 mg/dL (0.55-1.02); Estimated GFR 60.46 (mL/min/1.73m2)
[2021-12-30] MEDS: Barium Sulfate 2% W/V-Berry Smoothie 450 ML BTL PO (12:59)
[2021-12-30] MEDS: Omnipaque 350 MG/ML 500 ML BTL-Imaging package IJ (13:00)
[2021-12-30] MEDS: Normal Saline Flush 10 ML SYR IVP (13:04)
== END ==
PROVIDERS: PCP Nurse Practitioner Family; Visit Provider Student in an Organized Health Care Education/Training Program
DX: K44.9 Diaphragmatic hernia without obstruction or gangrene (principal); R91.8 Other nonspecific abnormal finding of lung field; Z01.812 Encounter for preprocedural laboratory examination
CPT/HCPCS: 74177; 71260; 82565

== ENCOUNTER 2022-01-20 10:35 | Outpatient (CLI) | payer MEDICARE, SELFPAY ==
--- NOTE | 2022-01-20 10:15 | DI.RAD_ITS ---
Exam(s) XR SHOULDER RT COMPLETE 2+V EXAM: XR SHOULDER RT COMPLETE 2+V CLINICAL HISTORY: R shoulder pain TECHNIQUE: COMPARISON: CR XR SHOULDER LT COMPLETE 2+V from 04/27/2020 FINDINGS: Three views were obtained. Cartilaginous joint space of the glenohumeral joint appears fairly well m aintained. Mild deformity of inferior glenoid, please correlate regarding prior history of trauma. Mild hypertrophic changes at AC joint. No other significant bony abnormality seen. IMPRESSION: RADIATION DOSE DELIVERED: Total DLP
== END 2022-01-20 10:36 | disposition home or self-care (01) ==
LOC: DIORS 10:35
PROVIDERS: PCP Nurse Practitioner Family; Referring Provider Nurse Practitioner Family; Visit Provider Physician Assistant
DX: M75.21 Bicipital tendinitis, right shoulder (principal); M75.81 Other shoulder lesions, right shoulder; G56.01 Carpal tunnel syndrome, right upper limb
CPT/HCPCS: 99213; 73030

== ENCOUNTER → 2022-01-31 02:20 | Outpatient (CLI) | payer MEDICARE, SELFPAY ==
--- NOTE | 2022-01-31 | DI.RAD_ITS ---
Exam(s) UGI SM BOWEL SERIES EXAM: UGI SM BOWEL SERIES CLINICAL HISTORY: VOMITING R11.10 TECHNIQUE: 2D and real-time digital imaging was performed. CONTRAST MATERIAL: Oral barium Oral water soluble contrast was administered. 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 No free air. No bowel obstru ction. Esophagus: The swallowing mechanism appears intact. No penetration or aspiration evident. No hypertense upper esophageal sphincter. There is no evidence of Zenker's diverticulum. No fixed lesions evident in th e esophagus. No significantly esophageal. Dilatation. No evidence of achalasia. The size and appe arance of the hiatal hernia/fundoplication is unchanged from 2014. No prominent reflux demonstrated during this study, both upright and supine. No tertiary waves demonstrated in the esophagus. Stomach: Hiatal hernia as above. No fixed lesions. No ulcer craters evident in the stomach. Duodenum: No ulcer craters. No fixed lesions identified. SMALL-BOWEL FOLLOW-THROUGH: No evidence of small-bowel obstruction or malrotation. Normal transit time. No fold thickening. No strictures. No diverticuli. No obvious abnormality the terminal ileum. Appendix was difficult to isolate is a separate structure. IMPRESSION: Unchanged appearance of the hiatal hernia-fundoplication when compared to prior similar study perform ed 10/23/2013. No new findings in the stomach and duodenum. Unremarkable small bowel follow-through examination. RADIATION DOSE DELIVERED: Kameronr= 125 mGy
[2022-01-31] MEDS: Simethicone/Sod Bicarb/Cit Ac, 4 gram PACKET 1 PACKET PO (09:45)
[2022-01-31] MEDS: Barium Sulfate 98% W/W 140 ML BTL PO (09:46)
[2022-01-31] MEDS: Barium Sulfate 60% W/V 355 ML BTL PO (09:46)
== END ==
PROVIDERS: PCP Nurse Practitioner Family; Visit Provider Student in an Organized Health Care Education/Training Program
DX: R11.10 Vomiting, unspecified (principal); K44.9 Diaphragmatic hernia without obstruction or gangrene; Z98.890 Other specified postprocedural states
CPT/HCPCS: 74248; 74246; J3490

== ENCOUNTER → 2022-02-15 01:52 | Outpatient (CLI) | payer MEDICARE, SELFPAY ==
--- NOTE | 2022-02-15 07:00 | DI.MRI_ITS ---
Exam(s) MR UPPER JOINT RT WO EXAM: MR UPPER JOINT RT WO CLINICAL HISTORY: R SHOULDER PAIN,TENDONITIS BICEPS BRACHI,RT ROTATOR CUFF TENDINITIS,M75.21, TECHNIQUE: Multiplanar multisequence MRI of the shoulder was performed. COMPARISON: CR XR SHOULDER RT COMPLETE 2+V from 01/20/2022 FINDINGS: MARROW:There is no evidence of fracture, Hill-Sachs deformity, nor ominous osseous lesions. ROTATOR CUFF MECHANISM: AC JOINT/ACROMIUM: Mild degenerative changes of the AC joint.. There is no evidence of os acromiale. Supraspinatus: Mild increased signal in the tendon. No high-grade tear. No muscle atrophy. There i s a sliver of fluid in the subdeltoid bursa. No obvious soft tissue calcifications. Infraspinatus: Intact. No evidence of tear nor muscle atrophy. Teres Minor: Intact. No evidence of tear nor muscle atrophy. Subscapularis/anterior cuff: Intact. No abnormal signal at the level of the multipennate insertional fibers. No significant tear nor atrophy. BICEPS TENDON: Biceps tendon is not displaced from the intertubercular groove. Appears intact. No tenosynovitis. LABRUM: There is a degenerative subarticular cyst in the superior aspect of the osseous glenoid measu ring 7 x 6 mm. There is some signal abnormality in the superior labrum posterior to the biceps inser tion consistent with element of SLAP tear. This is also seen in the superior aspect of the posterior labrum. Anterior labrum appears torn superiorly. Inferior labrum appears intact. The inferior gle nohumeral ligament appears intact. No obvious bony Bankart lesion. No HAGL lesion evident. GLENOHUMERAL JOINT: There is no glenohumeral joint effusion. No loose intra-articular bodies. QUADRILATERAL SPACE: No evidence of mass in the region of the axillary nerve and dorsal circumflex hu meral vessels. Visualized triceps muscle at this level appears unremarkable. IMPRESSION: 1. Mild tendinitis of the supraspinatus. No full-thickness tear. There is a sliver of fluid in the subdeltoid bursa. This may represent element of mild bursitis. 2. Other 3 muscular components of the rotator cuff mechanism are intact. 3. Multilevel signal abnormality in the labrum superiorly posterior superiorly and anteriorly consist ent with probable tearing. No evidence of paralabral cyst. However, there is a degenerative subarti cular cyst in the superior aspect of the osseous glenoid. Biceps tendon appears intact. DATA REPOSITORY:
== END ==
PROVIDERS: PCP Nurse Practitioner Family; Visit Provider Student in an Organized Health Care Education/Training Program
DX: M75.21 Bicipital tendinitis, right shoulder (principal); M75.81 Other shoulder lesions, right shoulder; M75.101 Unspecified rotator cuff tear or rupture of right shoulder, not specified as traumatic; R93.6 Abnormal findings on diagnostic imaging of limbs
CPT/HCPCS: 73221

== ENCOUNTER 2022-03-02 07:49 | Day surgery (SDC) | payer MEDICARE, SELFPAY ==
[2022-03-02] VITALS (10 sets, daily range): BP systolic 111–126; BP diastolic 64–90; PULSE 59–83; RESP 11–20; TEMP 36–36.8; O2SAT 93–100; BMI 31.6
[2022-03-02] MEDS: Lactated Ringers 1,000 ML 80 ML IV (08:45)
--- NOTE | 2022-03-02 09:12 | ANES.PREOP_ITS ---
General Info Date of Service Date Performed: 03/02/22 Height: 5 ft 3 in Weight: 81.1 kg Body Mass Index (BMI): 31.6 Surgical Procedure: Operation Date: 03/02/22 09:25 Proposed Procedure Side Surgeon p Shoulder Arthroscopy w/Debridement & Biceps Tenodesis Right Raheel Gongora MD Meds Allergies and Home Medications Allergies Allergy/AdvReac Type Severity Reaction Status Date / Time latex Allergy Severe HIVES, Verified 03/02/22 08:09 ITCHING erythromycin base AdvReac Intermediate NAUSEA, Verified 03/02/22 08:09 VOMITING chlorhexidine AdvReac Mild Itching Verified 03/02/22 08:09 [From Hibiclens] codeine AdvReac NAUSEA, Verified 03/02/22 08:09 VOMITING Home Medication Medication Instructions Recorded cholecalciferol (vitamin D3) 50 2,000 unit PO DAILY 05/19/15 mcg (2,000 unit) capsule (Vitamin D3) fluticasone 500 mcg-salmeterol 50 1 inh inhalation BID #1 puff 07/15/21 mcg/dose blistr powdr for inhalation (Advair Diskus) cephalexin 500 mg capsule See Rx Instructions .Route 11/09/21 .COMPLEX #90 caps fluoxetine 20 mg capsule 20 mg PO DAILY #90 tab-caps 12/13/21 fluoxetine 40 mg capsule 40 mg PO DAILY #90 tab-caps 12/13/21 lidocaine 4 % topical patch 1 patch topical DAILY PRN pain #30 01/10/22 ea albuterol sulfate 2.5 mg/3 mL 2.5 mg (3 mL) inhalation Q6H PRN 02/02/22 (0.083 %) solution for nebulization shortness of breath or wheezing #360 mL atorvastatin 10 mg tablet 10 mg PO QPM #90 tabs 02/02/22 cetirizine 10 mg tablet 10 mg PO DAILY #90 tab-caps 02/02/22 diclofenac sodium 1 % topical gel 4 g topical QID PRN pain #150 grams 02/02/22 esomeprazole magnesium 40 mg 40 mg PO DAILY #90 tab-caps 02/02/22 capsule,delayed release (Nexium) gabapentin 300 mg capsule 300 mg PO BID #180 caps 02/02/22 levalbuterol tartrate 45 2 inh inhalation Q6H PRN shortness 12/14/22 mcg/actuation aerosol inhaler of breath or wheezing #45 grams magnesium oxide 500 mg capsule 500 mg PO DAILY #90 caps 02/02/22 montelukast 10 mg tablet 10 mg PO HS #90 tabs 02/02/22 (Singulair) nystatin 100,000 unit/gram topical 1 applic topical BID #30 grams 02/02/22 cream ondansetron HCl 4 mg tablet 4 mg PO Q8H PRN nausea and 02/02/22 vomiting #60 tabs pen needle, diabetic 32 gauge x #200 ea 02/02/2202/23 (Comfort EZ Pen [place]) sucralfate 1 gram tablet (Carafate) 1 g PO QACHS PRN heartburn #120 02/02/22 tabs triamcinolone acetonide 0.5 % 1 applic topical DAILY PRN rash 02/02/22 topical cream #15 grams blood sugar diagnostic (OneTouch #200 ea 02/03/22 Ultra Test strips) blood-glucose meter (OneTouch #1 ea 02/03/22 UltraMini kit) ferrous sulfate 325 mg (65 mg 325 mg PO BID #180 tabs 02/03/22 iron) tablet lancets (OneTouch UltraSoft #200 ea 02/03/22 Lancets) metformin 500 mg tablet 1,000 mg PO BID #360 tabs 02/03/22 insulin glargine 100 unit/mL (3 20 unit subcut DAILY 03/01/22 mL) subcutaneous pen (Basaglar KwikPen U-100 Insulin) acetaminophen 500 mg tablet 1,000 mg PO TID #90 tabs 03/02/22 ibuprofen 600 mg tablet 600 mg PO TID PRN #90 tabs 03/02/22 oxycodone 5 mg tablet 5 mg PO Q4H PRN pain #20 tabs 03/02/22 Current Visit Medications: Current Medications Generic Name Dose Route Start Last Admin Trade Name Freq PRN Reason Stop Dose Admin Ringer's Solution 1,000 mls @ 80 mls/hr 03/02/22 06:00 IV 03/02/22 23:59 INFUSION BROWN Cefazolin Sodium/Dextrose 2 gm in 50 mls @ 100 mls/hr 03/02/22 06:00 Ancef Duplex IVPB 03/02/22 23:59 PREOP BROWN IV Miscellaneous Supplies 1 each 03/02/22 06:00 Iv Access IV 03/02/22 23:59 DIRECTED BROWN Sodium Chloride 0 ml 03/02/22 06:00 Normal Saline Flush 10 Ml Syr IV 03/02/22 23:59 PRN PRN Sodium Chloride 0 ml 03/02/22 06:00 Normal Saline 10 Ml Vial IJ 03/02/22 23:59 DIRECTED PRN Sterile Water 0 ml 03/02/22 06:00 Water,Injection,Sterile 10 Ml Vial IJ 03/02/22 18:00 DIRECTED PRN PFSH Active Problems Active Problems: Problem Status Onset Code Hyperlipidemia E78.5 Migraine G43.909 Gastroesophageal reflux disease with esophagitis K21.0 At risk for aspiration Z91.89 Tubular adenoma of colon D12.6 Obesity (BMI 30.0-34.9) E66.9 Degenerative joint disease, shoulder, 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 Degenerative joint disease, shoulder, right M19.011 Right rotator cuff tendonitis M75.81 Tendonitis of long head of biceps brachii of right shoulder M75.21 Carpal tunnel syndrome, right G56.01 Type 2 diabetes mellitus E11.9 Asthma J45.909 Major depressive disorder, recurrent F33.9 Right upper lobe pulmonary nodule ~10/2021 Paraesophageal hiatal hernia K44.9 Non-alcoholic fatty liver disease K76.0 SLAP lesion of right shoulder S43.431A Right supraspinatus tendinitis M75.91 Medical History Medical History (Updated 03/02/22 @ 08:16 by Dora Lara) RENAE (acute kidney injury) History of kidney stones Incisional hernia Infection of total left knee replacement Pyloric ulcer associated with Helicobacter pylori Shoulder pain R shoulder Medical History Comments:: Hx of aspiration Surgical History Surgical History History of esophagogastroduodenoscopy History of incisional hernia repair History of total right knee replacement Hx of cystoscopy Lithotripsy, stents x 3 S/P recurrent ventral herniorrhaphy Status post arthroscopy of left knee (08/21/19) Status post cholecystectomy Status post laparoscopic hysterectomy Status post Nga fundoplication Status post revision of total replacement of left knee (07/21/20) Patellar resurfacing DOS: 07/21/2020 DOS: 12/22/17 Dr. Prohaska Status post tonsillectomy Status post total left knee replacement (07/06/17) Tobacco Smoking/Tobacco Use Status: Never Passive smoking exposure: Yes Alcohol Alcohol Intake: current Alcohol intake frequency: holidays/special occasions only Alcohol type: hard liquor and other Substance Use Substance use: Never Substance use type: does not use Details: alcohol: t-14 Vital Signs and Lab Results Vital Signs Most Recent Vital Signs in EMR: Most Recent Vital Signs Temp Pulse Resp BP Pulse Ox 36.8 C 83 20 116/90 99 03/02/22 08:21 03/02/22 08:21 03/02/22 08:21 03/02/22 08:21 03/02/22 08:21 Lab Results Blood Type / Crossmatch: No Data to Display Complete Blood Count: No Data to Display Complete Metabolic Panel: Hemoglobin A1c 9.2 % (4.5-5.7) H 02/03/22 14:26 Liver Function Panel: No Data to Display Coagulation Panel: No Data to Display Cardiac Panel: No Data to Display Arterial Blood Gas: No Data to Display Venous Blood Gas: No Data to Display Pancreas Panel: No Data to Display Thyroid Panel: No Data to Display Infectious Disease: 2 No Data to Display Blood Cultures: No Data to Display Toxicology Panel: No Data to Display Panel: No Data to Display Anesthesia Assessment and Plan Anesthesia History Personal History: Other Family History: No Family History of Anesthesia Complications Exercise Tolerance Exercise Tolerance: Metabolic Equivalents<4 Pertinent Negatives Pertinent Negatives: No Major Cardiovascular Symptoms or Complaints Cardiac & Pulmonary Exam Cardiac Exam: Normal S1/S2 Heart Sounds Pulmonary Exam: Other (Diminished) Implantable Cardiac Device Does patient have a Pacemaker or an ICD?: No Airway Exam Known Difficult Airway: No Mallampati Class: 3 Mouth Opening: Narrow (< 3cm) Thyromental Distance: Less than 3 cm Neck Range of Motion: Limited ROM Neck Circumference: Thick Teeth Condition: Loose or Chipped ASA Classification ASA Score: ASA 3 Emergency Case?: No NPO Status NPO Status: NPO Clears >2 hours, Solids >8 hours Status Status: History of Hysterectomy Anesthesia Plan Resuscitation Status: Full Code Anesthesia Technique: General Anesthesia Airway Planned: Endotracheal Tube Monitors Used: Standard Monitors and SedLine Preoperative Comments:: Uncontrolled GERD, planned RSI, upright position.
--- NOTE | 2022-03-02 09:18 | PDOC.DSDIS_ITS ---
Date of service: 03/02/22 Time of Service: 09:18 Discharge Plan Disposition Patient Disposition: Home Condition: Good Discharge Details Reason For Visit: R shoulder arthroscopy Attending Provider: Raheel Gongora Primary Care Provider: Renetta Bonner Home Meds and New Rx's Prescriptions: New acetaminophen 500 mg tablet 1,000 mg PO TID Qty: 90 3RF ibuprofen 600 mg tablet 600 mg PO TID PRNQty: 90 3RF oxycodone 5 mg tablet 5 mg PO Q4H MDD 6 tabs PRN (Reason: pain) Qty: 20 0RF Continued fluticasone propion-salmeterol [Advair Diskus] 500-50 mcg/dose blister with device 1 inh Inhalation BID Qty: 1 12RF ferrous sulfate 325 mg (65 mg iron) tablet 325 mg PO BID Qty: 180 3RF metformin 500 mg tablet 1,000 mg PO BID Qty: 360 3RF Rx Instructions: Take 2 tablet in the morning and evening (DME) OneTouch Ultra Test Strip 1 ea Miscellaneous DAILY Qty: 200 3RF Rx Instructions: Check blood sugar twice a day (DME) blood-glucose meter [OneTouch UltraMini] Kit 1 ea Miscellaneous DAILY Qty: 1 3RF Rx Instructions: Check blood sugar twice a day (DME) lancets [OneTouch UltraSoft Lancets] Misc 1 ea Miscellaneous DAILY Qty: 200 3RF Rx Instructions: Check blood sugar twice a day cholecalciferol (vitamin D3) [Vitamin D3] 2,000 UNIT capsule 2,000 unit PO DAILY cephalexin 500 mg capsule See Rx Instructions .ROUTE .COMPLEX Qty: 90 3RF Dose Instruction: TAKE ONE CAPSULE BY MOUTH THREE TIMES A DAY Rx Instructions: TAKE ONE CAPSULE BY MOUTH THREE TIMES A DAY fluoxetine 20 mg capsule 20 mg PO DAILY Qty: 90 3RF Rx Instructions: Take with 40mg cap for a total of 60mg fluoxetine 40 mg capsule 40 mg PO DAILY Qty: 90 3RF Rx Instructions: Take with 20mg cap for a total of 60mg lidocaine 4 % adhesive patch,medicated 1 patch topical DAILY PRN (Reason: pain) Qty: 30 0RF Rx Instructions: apply lidocaine patch daily as directed atorvastatin 10 mg tablet 10 mg PO QPM Qty: 90 3RF cetirizine 10 mg tablet 10 mg PO DAILY Qty: 90 3RF diclofenac sodium 1 % gel 4 g topical QID PRN (Reason: pain) Qty: 150 6RF esomeprazole magnesium [Nexium] 40 mg capsule,delayed release(DR/EC) 40 mg PO DAILY Qty: 90 3RF Label Comments: pt. states it is omeprazole gabapentin 300 mg capsule 300 mg PO BID Qty: 180 3RF levalbuterol tartrate 45 mcg/actuation HFA aerosol inhaler 2 inh inhalation Q6H PRN (Reason: shortness of breath or wheezing) Qty: 45 4RF magnesium oxide 500 mg capsule 500 mg PO DAILY Qty: 90 3RF montelukast [Singulair] 10 mg tablet 10 mg PO HS Qty: 90 3RF nystatin 100,000 unit/gram cream 1 applic topical BID Qty: 30 0RF (DME) pen needle, diabetic [Comfort EZ Pen [place]] 32 gauge x 1/4 needle See Rx Instructions .ROUTE .MEDSUPPLY Qty: 200 3RF Rx Instructions: Check blood sugar twice a day ondansetron HCl 4 mg tablet 4 mg PO Q8H PRN (Reason: nausea and vomiting) Qty: 60 0RF sucralfate [Carafate] 1 gram tablet 1 g PO QACHS PRN (Reason: heartburn) Qty: 120 0RF Rx Instructions: Take 30 minutes before meals and at bedtime as needed for heartburn triamcinolone acetonide 0.5 % cream 1 applic Topical DAILY PRN (Reason: rash) Qty: 15 1RF Rx Instructions: Apply thin layer once daily to hands and arm as needed albuterol sulfate 2.5 mg /3 mL (0.083 %) solution for nebulization 2.5 mg Inhalation Q6H PRN (Reason: shortness of breath or wheezing) Qty: 360 3RF Label Comments: 07/03/17 Per pt uses every night.jw insulin glargine [Basaglar KwikPen U-100 Insulin] 100 unit/mL (3 mL) insulin pen 20 unit subcut DAILY Discontinued acetaminophen 500 mg tablet 1,000 mg PO TID PRN (Reason: pain) Qty: 90 2RF Discharge Instructions Stand Alone Forms: Fransisca Boudreaux w/BT Referrals: Raheel Gongora MD [ [facility] STAFF PHYSICIAN] - Equipment/Supplies: Sling Activity:: Elevate Remove Dressings/Wound Care:: 72 hours Shower/Bathe:: 72 hours Diet:: As Tolerated Discharge Orders Discharge Orders: Discharge Order (Routine); Ordered 03/02/22 Ordered By: Mynor Durant DS: Diagnosis Discharge Diagnosis (1) Right rotator cuff tendonitis: Status: Chronic
--- NOTE | 2022-03-02 09:39 | HPE_ITS ---
Assessment and Plan Assessment and plan (1) SLAP lesion of right shoulder: Status: Acute (2) Right supraspinatus tendinitis: Status: Acute Assessment and plan: Fay is a 51-year-old who has ongoing right shoulder pain which is failed nonoperative treatments. She has a known SLAP tear with biceps tendinitis and supraspinatus tendinitis with questionable partial tearing. Given the failure of nonoperative options I offered operative intervention in the form of an arthroscopic debridement with biceps tenodesis. I reviewed this surgery with Fay. I discussed the risk of the procedure to include bleeding, infection, pain, stiffness, damage nerves and vessels, continued symptoms, need for repeat procedures, rerupture, retear, blood clot. Despite these risk she elects to proceed. History of Present Illness History of Present Illness Chief Complaint: Right Shoulder Pain Narrative: Fay is a 51-year-old who has had worsening pain about the right shoulder. She has primary pain over the anterior aspect of the shoulder. She had tried a host of nonoperative options but continues have pain and limitations with the use of the right shoulder. MRI confirmed the diagnosis of biceps tendinitis and SLAP tear with some rotator cuff tendinitis. Given the failure of her other tr eatment options I offered a shoulder arthroscopy with debridement of the rotator cuff, labrum, and a biceps tenodesis to treat the SLAP tear. She is here today for that procedure. She denies any sick contacts. She denies any recent illness. She has ongoing GI issues which are being worked up at [facility]. No chest pain or shortness of breath. Review of Systems All systems reviewed & are unremarkable except as noted in HPI and below PFSH All Active Problems Hyperlipidemia (Chronic) Migraine (Chronic) Gastroesophageal reflux disease with esophagitis (Chronic) At risk for aspiration (Chronic) Gastric contents noted in mouth after all general ETT anesthetics. Recommend ETT for GA. Tubular adenoma of colon (Chronic) Obesity (BMI 30.0-34.9) (Chronic) Degenerative joint disease, shoulder, left (Chronic) Degenerative joint disease, shoulder, right (Chronic) Right rotator cuff tendonitis (Chronic) Injection: 11/25/2021 Tendonitis of long head of biceps brachii of right shoulder (Chronic) Carpal tunnel syndrome, right (Chronic) Type 2 diabetes mellitus (Chronic) Asthma (Chronic) Major depressive disorder, recurrent (Chronic) Right upper lobe pulmonary nodule (Chronic ~10/2021) Paraesophageal hiatal hernia (Chronic) Non-alcoholic fatty liver disease (Chronic) SLAP lesion of right shoulder (Acute) Right supraspinatus tendinitis (Acute) Medical History RENAE (acute kidney injury) History of kidney stones Incisional hernia Infection of total left knee replacement Pyloric ulcer associated with Helicobacter pylori Shoulder pain R shoulder Surgical History History of esophagogastroduodenoscopy History of incisional hernia repair History of total right knee replacement Hx of cystoscopy Lithotripsy, stents x 3 S/P recurrent ventral herniorrhaphy Status post arthroscopy of left knee (08/21/19) Status post cholecystectomy Status post laparoscopic hysterectomy Status post Nga fundoplication Status post revision of total replacement of left knee (07/21/20) Patellar resurfacing DOS: 07/21/2020 DOS: 12/22/17 Dr. Gongora Status post tonsillectomy Status post total left knee replacement (07/06/17) Family History Mother Depression Hyperlipidemia Father , 72 Diabetes Essential hypertension Heart disease Cancer Sister No problems noted. Maternal Grandfather , 80 Heart disease Hyperlipidemia Paternal Grandfather , 80 Diabetes Heart disease Hyperlipidemia Maternal Grandmother , 82 Diabetes Heart disease Paternal Grandmother , 73 Heart disease Hyperlipidemia Asthma Social History Smoking/Tobacco Use Status: Never Smoking risk assessment performed?: Yes Alcohol Intake: current Alcohol Intake frequency: holidays/special occasions only Alcohol type: hard liquor and other Drug use: Never Substance use type: does not use Details: alcohol: t-14 Caregiver/Support person: No Household members: spouse Housing: apartment Communication Needs: None Do you need help understanding health information?: Rarely current occupation: Disabled Pets and animals: Yes Pets and animals: cat(s) and dog(s) Sexually active: No Do you think of yourself as: straight/heterosexual Current gender identity: female What is your relationship status?: How often do you talk on the phone with friends or family?: decline to answer How often do you get together with friends or relatives?: decline to answer How often do you attend mandaeism or anabaptism services?: decline to answer Do you belong to any clubs or organized social groups?: no Panel score (0-1 are the most socially isolated patients): 1 What type of physical activity do you participate in: walking Duration: 15-30 minutes/day Frequency: 3-4 times per week Sita/Denominational: No preference Special sita needs: No Seatbelt use: always Helmet use: No Drive intox or ride w/intox commercial front load driver: No Do you feel safe at home: Yes Do you feel safe in your relationship?: Yes Additional Social history: unable assess privately Meds Allergies and Home Medications Allergies Allergy/AdvReac Type Severity Reaction Status Date / Time latex Allergy Severe HIVES, Verified 03/02/22 08:09 ITCHING erythromycin base AdvReac Intermediate NAUSEA, Verified 03/02/22 08:09 VOMITING chlorhexidine AdvReac Mild Itching Verified 03/02/22 08:09 [From Hibiclens] codeine AdvReac NAUSEA, Verified 03/02/22 08:09 VOMITING Home Medications Medication Instructions Recorded Confirmed Type cholecalciferol (vitamin D3) 50 2,000 unit PO DAILY 05/19/15 03/02/22 History mcg (2,000 unit) capsule (Vitamin D3) fluticasone 500 mcg-salmeterol 50 1 inh inhalation BID #1 puff 07/15/21 03/02/22 Rx mcg/dose blistr powdr for inhalation (Advair Diskus) cephalexin 500 mg capsule See Rx Instructions .Route 11/09/21 03/02/22 Rx .COMPLEX #90 caps fluoxetine 20 mg capsule 20 mg PO DAILY #90 tab-caps 12/13/21 03/02/22 Rx fluoxetine 40 mg capsule 40 mg PO DAILY #90 tab-caps 12/13/21 03/02/22 Rx lidocaine 4 % topical patch 1 patch topical DAILY PRN pain #30 01/10/22 03/02/22 Rx ea albuterol sulfate 2.5 mg/3 mL 2.5 mg (3 mL) inhalation Q6H PRN 02/02/22 03/02/22 Rx (0.083 %) solution for nebulization shortness of breath or wheezing #360 mL atorvastatin 10 mg tablet 10 mg PO QPM #90 tabs 02/02/22 03/02/22 Rx cetirizine 10 mg tablet 10 mg PO DAILY #90 tab-caps 02/02/22 03/02/22 Rx diclofenac sodium 1 % topical gel 4 g topical QID PRN pain #150 grams 02/02/22 03/02/22 Rx esomeprazole magnesium 40 mg 40 mg PO DAILY #90 tab-caps 02/02/22 03/02/22 Rx capsule,delayed release (Nexium) gabapentin 300 mg capsule 300 mg PO BID #180 caps 02/02/22 03/02/22 Rx levalbuterol tartrate 45 2 inh inhalation Q6H PRN shortness 02/02/22 03/02/22 Rx mcg/actuation aerosol inhaler of breath or wheezing #45 grams magnesium oxide 500 mg capsule 500 mg PO DAILY #90 caps 02/02/22 03/02/22 Rx montelukast 10 mg tablet 10 mg PO HS #90 tabs 02/02/22 03/02/22 Rx (Singulair) nystatin 100,000 unit/gram topical 1 applic topical BID #30 grams 02/02/22 03/02/22 Rx cream ondansetron HCl 4 mg tablet 4 mg PO Q8H PRN nausea and 02/02/22 03/02/22 Rx vomiting #60 tabs pen needle, diabetic 32 gauge x #200 ea 02/02/22 03/01/22 Rx 1/4 (Comfort EZ Pen [place]) sucralfate 1 gram tablet (Carafate) 1 g PO QACHS PRN heartburn #120 02/02/22 03/02/22 Rx tabs triamcinolone acetonide 0.5 % 1 applic topical DAILY PRN rash 02/02/22 03/02/22 Rx topical cream #15 grams blood sugar diagnostic (OneTouch #200 ea 02/03/22 03/01/22 Rx Ultra Test strips) blood-glucose meter (OneTouch #1 ea 02/03/22 03/01/22 Rx UltraMini kit) ferrous sulfate 325 mg (65 mg 325 mg PO BID #180 tabs 02/03/22 03/02/22 Rx iron) tablet lancets (OneTouch UltraSoft #200 ea 02/03/22 03/01/22 Rx Lancets) metformin 500 mg tablet 1,000 mg PO BID #360 tabs 02/03/22 03/02/22 Rx insulin glargine 100 unit/mL (3 20 unit subcut DAILY 03/01/22 03/02/22 History mL) subcutaneous pen (Basaglar KwikPen U-100 Insulin) acetaminophen 500 mg tablet 1,000 mg PO TID #90 tabs 03/02/22 Rx ibuprofen 600 mg tablet 600 mg PO TID PRN #90 tabs 03/02/22 Rx oxycodone 5 mg tablet 5 mg PO Q4H PRN pain #20 tabs 03/02/22 Rx Exam Const General: cooperative, healthy appearing, comfortable and no acute distress Resp Auscultation: clear to auscultation bilaterally Cardio Rate: regular rate Rhythm: regular rhythm Results Imaging Imaging Studies: MRI of the shoulder was reviewed. This does show a SLAP tear. There is also some fluid around the biceps tendon. There is some mild signal around the rotator cuff tendon, mostly supraspinatus and most on the bursal side. I do not see any full-thickness tear nor any high-grade partial tearing. No significant arthritic change. Last Vital Signs Temp 36.8 C 03/02/22 08:21 Pulse 83 03/02/22 08:21 Resp 20 03/02/22 08:21 BP 116/90 03/02/22 08:21 Pulse Ox 99 03/02/22 08:21
[2022-03-02] MEDS: ceFAZolin 2 GM/50 ML BAG IVPB (10:01)
[2022-03-02] MEDS: EPINEPHrine 30 MG/30 ML VIAL (11:45)
[2022-03-02] MEDS: Bupivacaine 0.25% Pres-Free 30 ML VIAL (11:45)
[2022-03-02] MEDS: fentaNYL 100 MCG/2 ML VIAL IVP ×2 (12:03→12:12)
[2022-03-02] MEDS: HYDROmorphone 2 MG/ML SYR IVP (12:36)
[2022-03-02] MEDS: oxyCODONE 5 MG TAB PO (13:25)
--- NOTE | 2022-03-02 14:17 | W.ANESPOSTOP ---
Postoperative Evaluation Date, Time and Location Date Performed: 03/02/22 Time Performed: 14:17 Patient Location: Day Surgery Unit Vital Signs Most Recent Imported Vital Signs: Most Recent Vital Signs Temp Pulse Resp BP Pulse Ox 36.2 C L 70 16 115/64 94 03/02/22 13:30 03/02/22 13:30 03/02/22 13:30 03/02/22 13:30 03/02/22 13:30 Pain Score Most Recent Pain Score: Most Recent Pain Score Pain Level 3 03/02/22 13:30 Assessment Mental Status: Awake (Alert & Oriented to Patient Baseline) Airway and Respiratory Function: Patent airway with normal (patient baseline) respiratory exam Cardiovascular Function: Hemodynamically Stable Hydration Status: Adequately Hydrated Nausea & Vomiting: No Nausea or Vomiting Pain: Pain is tolerable per patient Peripheral Nerve Block: Patient did not receive a nerve block
--- NOTE | 2022-03-02 18:43 | ROE_ITS ---
Date of service: 03/02/22 Time of Service: 12:00 Operative Note Operative Note DATE OF PROCEDURE: 03/02/22 PRE-OP DIAGNOSIS: Right rotator cuff tendinitis, right biceps tendinitis, SLAP tear POST-OP DIAGNOSIS: other (Partial bursal supraspinatus tear, type II SLAP tear) PROCEDURE: - Extensive debridement of anterior and posterior glenohumeral joint and rotator cuff - Sub-pectoral biceps tenodesis - Subacromial Debridement SURGEON: Raheel Gongora ENTEROSTOMAL THERAPY NURSE: Mynor Durant Refer to Anesthesia Record ESTIMATED BLOOD LOSS: 0 PATHOLOGY: none sent COMPLICATIONS: None Patient was transported to: PACU Patient's condition: stable Indications: I have seen Fay in clinic for a painful shoulder. Pathology was confirmed based on MRI and exam findings. Nonoperative measures were exhausted but disability and pain persisted. I discussed shoulder arthroscopy and procedures. I reviewed the risks of the procedures to include, but not limited to, bleeding, infection, pain, stiffness, damage to nerves or vessels, recurrence, hardware failure, blood clot. Despite these risks, the patient elected to proceed. Findings: A diagnostic arthroscopy was performed with the following findings: Articular Side - Glenohumeral Joint: Small areas of grade 1 maybe grade II chondromalacia only focally within the humeral head - Labrum: Diffuse tearing of the superior labrum from anterior to posterior involving the entirety of the superior labrum from 11:00 to 2:00. - Cuff: No rotator cuff tearing - Biceps: No significant biceps pathology except for the attachment of the labrum at its anchor point Subacromial Side - Bursal: Some dense inflammatory changes - Rotator Cuff: Partial, 4 to 5 mm in thickness, tearing of the supraspinatus -No significant spurring Procedure Description: Fay was greeted in the preoperative holding area where the correct side was identified and marked. The consent was reviewed with the patient and signed. The history and physical was updated. All questions were answered. She was then taken to the operating room. The patient was placed into the supine position on the operating room table. A general anesthetic was administered. Fay was then positioned in the beach chair position. All bony prominences were well padded. The head was placed in a foam headliner installer in a neutral position. Prophylactic antibiotics in the form of cefazolin were administered. The right arm/shoulder was then prepped with Chloraprep and draped in a standard fashion with stockinette and shoulder drape. A timeout to confirm correct identity, side and site, procedure, allergies, anesthesia, and medical concerns was performed. The arm was placed into a pneumatic browne, [id number]. The shoulder arthroscopy was then performed. The glenohumeral joint was injected with 20 cc of normal saline with good flow back. A standard posterior portal was made and the joint was entered atraumatically with a blunt arthroscope. Once inside we had good visualization of the structures of the glenohumeral joint. An anterior portal was established with spinal needle localization. A 6.5 mm cannula was inserted. A probe was then used to perform a diagnostic arthroscopy. There is noted to be preserved throughout except for some focal areas of punctate grade 1/2 chondromalacia of the humeral head. The labrum had diffuse tearing from anterior to posterior involving majority of the superior labrum from about 11:00 to 2:00. There were no loose bodies in the inferior pouch. The superior rotator cuff was attached to the tuberosity. The biceps tendon was without tearing. The subscapularis was intact. Given the diffuse tearing of the labrum I performed a debridement of the anterior, superior, posterior labrum. I then detached the biceps tendon with use of electrocautery device. The biceps tenodesis was then performed. With the arm and some slight external rotation abduction pectoralis major tendon was identified. A 2 cm incision was made overlying the insertion to the humerus. Sharp dissection was carried onto the skin. Blunt dissection was carried down to the fascia the biceps musculature. This was entered with a tenotomy scissors. The biceps groove was palpable and the biceps tendon was palpable. It was withdrawn from the wound using Allis clamp and finger dissection. Once the biceps tendon was out of the arm the biceps groove was prepared using a rasp. A Mitek Lupine anchor was inserted into the biceps groove at the level of the pectoralis major insertion. This was tested to make sure had excellent fixation into the bone. Using a free needle I then placed a locking Krak?w stitch and each side of the biceps tendon using one limb from each suture at the level of the muscular tendinous junction and moving proximally. Excess tendon was then cut. Using the free suture limb I then shuttled the tendon down to the prepared surface of the humerus. It laid flat against the humerus. It was at the level of the pectoralis major tendon. The suture limbs were then tied. The wound was irrigated. The subcutaneous tissue was reapproximated with a 2-0 Vicryl. The arthroscope was then inserted into the subacromial space. The 6.5 mm cannula was placed lateral to the CA ligament. A complete bursectomy is performed anteriorly, posteriorly, and laterally with electrocautery and shaver. This had excellent exposure of the rotator cuff. The bursal side rotator cuff was largely intact except for a small area approximately 6 or 7 mm wide at the level of the footprint where there was partial tearing approximate 4 to 5 mm in depth. There was no significant spurring. Using a spinal needle a lateral portal was established. This became the viewing portal. The partial tearing of the bursal rotator cuff was then debrided with a shaver until healthy tissue was apparent. Once again this was a small crater into the tendon measuring about 6 to 7 mm in width by about 4 to 5 mm in depth. The scope equipment was removed from the shoulder. Excess fluid was evacuated. The portal sites were closed with 3-0 Monocryl. The wounds were dressed with Steri-Strips, 4 x 4's, ABDs, Medipore tape. A sling was applied. The patient tolerated the procedure well and was returned to the PACU in a stable condition suffering no known complication.
== END 2022-03-02 14:23 | disposition home or self-care (01) ==
PROVIDERS: PCP Nurse Practitioner Family; Visit Provider Student in an Organized Health Care Education/Training Program
PROC: (CPT 29805; principal; 2022-03-02 09:15)
DX: M75.21 Bicipital tendinitis, right shoulder (principal); M75.81 Other shoulder lesions, right shoulder; M94.211 Chondromalacia, right shoulder
CPT/HCPCS: 29828; 29823; J0690; J1100; J1170; J1885; J2250; J2370; J2405; J2704; J3010

== ENCOUNTER → 2022-03-14 09:36 | Outpatient (BNVA) | payer MEDICARE, SELFPAY | PROVIDERS: PCP Nurse Practitioner Family; Referring Provider Nurse Practitioner Family; Visit Provider Student in an Organized Health Care Education/Training Program | DX: Z47.89 Encounter for other orthopedic aftercare (principal); M25.611 Stiffness of right shoulder, not elsewhere classified; G56.01 Carpal tunnel syndrome, right upper limb; M25.562 Pain in left knee ==

== ENCOUNTER 2022-04-01 02:16 | Outpatient (CLI) | payer MEDICARE, SELFPAY ==
[2022-04-01 15:34] LABS: ALT 25 U/L (14-59); AST 11 U/L (15-37); Albumin 3.8 g/dL (3.4-5.0); Alkaline Phosphatase 71 U/L (46-116); Anion Gap 14.2 mmol/L (3-11); BUN 21 mg/dL (7-18); Bilirubin, Total 0.7 mg/dL (0.2-1.0); CO2 20.8 mmol/L (21.0-32.0); Calculated LDL 97 mg/dL (<100); Chloride 98 mmol/L (98-107); Cholesterol 219 mg/dL (<200); Estimated GFR 67.78 (mL/min/1.73m2); Ferritin 81 ng/mL (8-252); Glucose 399 mg/dL (74-106); HDL Cholesterol 86 mg/dL (40-60); Potassium 4.3 mmol/L (3.5-5.1); Sodium 133 mmol/L (136-145); Total Protein 7.8 g/dL (6.4-8.2); Triglyceride 183 mg/dL (<150)
== END 2022-04-01 02:17 | disposition home or self-care (01) ==
LOC: LBO 02:16
PROVIDERS: PCP Nurse Practitioner Family; Visit Provider Nurse Practitioner Family
DX: K76.0 Fatty (change of) liver, not elsewhere classified (principal); R79.0 Abnormal level of blood mineral; E11.9 Type 2 diabetes mellitus without complications
CPT/HCPCS: 36415; 80053; 80061; 82728

== ENCOUNTER 2022-04-05 09:40 | Day surgery (SDC) | payer MEDICARE, SELFPAY ==
[2022-04-05 10:00] VITALS: BP 133/90; PULSE 83; RESP 16; TEMP 36.5; O2SAT 98
--- NOTE | 2022-04-05 10:29 | W.ANESPRE ---
General Info Date of Service Date Performed: 04/05/22 Height: 5 ft 2.99 in Weight: 79.379 kg Body Mass Index (BMI): 31.0 Surgical Procedure: Operation Date: 04/05/22 12:40 Proposed Procedure Side Surgeon p Wrist ECTR Right Raheel Gongora MD Meds Allergies and Home Medications Allergies Allergy/AdvReac Type Severity Reaction Status Date / Time latex Allergy Severe HIVES, Verified 03/24/22 15:35 ITCHING erythromycin base AdvReac Intermediate NAUSEA, Verified 03/24/22 15:35 VOMITING chlorhexidine AdvReac Mild Itching Verified 03/24/22 15:35 [From Hibiclens] codeine AdvReac NAUSEA, Verified 03/24/22 15:35 VOMITING Dermabond Allergy Intermediate Skin Rash Uncoded 04/05/22 10:03 Home Medication Medication Instructions Recorded cholecalciferol (vitamin D3) 50 2,000 unit PO DAILY 05/19/15 mcg (2,000 unit) capsule (Vitamin D3) cephalexin 500 mg capsule See Rx Instructions .Route 11/09/21 .COMPLEX #90 caps fluoxetine 20 mg capsule 20 mg PO DAILY #90 tab-caps 12/13/21 fluoxetine 40 mg capsule 40 mg PO DAILY #90 tab-caps 12/13/21 albuterol sulfate 2.5 mg/3 mL 2.5 mg (3 mL) inhalation Q6H PRN 02/02/22 (0.083 %) solution for nebulization shortness of breath or wheezing #360 mL atorvastatin 10 mg tablet 10 mg PO QPM #90 tabs 02/02/22 cetirizine 10 mg tablet 10 mg PO DAILY #90 tab-caps 02/02/22 esomeprazole magnesium 40 mg 40 mg PO DAILY #90 tab-caps 02/02/22 capsule,delayed release (Nexium) gabapentin 300 mg capsule 300 mg PO BID #180 caps 02/02/22 levalbuterol tartrate 45 2 inh inhalation Q6H PRN shortness 02/02/22 mcg/actuation aerosol inhaler of breath or wheezing #45 grams magnesium oxide 500 mg capsule 500 mg PO DAILY #90 caps 02/02/22 montelukast 10 mg tablet 10 mg PO HS #90 tabs 02/02/22 (Singulair) nystatin 100,000 unit/gram topical 1 applic topical BID #30 grams 02/02/22 cream ondansetron HCl 4 mg tablet 4 mg PO Q8H PRN nausea and 02/02/22 vomiting #60 tabs pen needle, diabetic 32 gauge x #200 ea 02/02/2202/23 (Comfort EZ Pen [place]) sucralfate 1 gram tablet (Carafate) 1 g PO QACHS PRN heartburn #120 02/02/22 tabs triamcinolone acetonide 0.5 % 1 applic topical DAILY PRN rash 02/02/22 topical cream #15 grams blood-glucose meter (OneTouch #1 ea 02/03/22 UltraMini kit) metformin 500 mg tablet 1,000 mg PO BID #360 tabs 02/03/22 acetaminophen 500 mg tablet 1,000 mg PO TID #90 tabs 03/02/22 blood sugar diagnostic (OneTouch #200 ea 03/17/22 Ultra Test strips) ferrous sulfate 325 mg (65 mg 325 mg PO DAILY #90 tabs 03/17/22 iron) tablet insulin glargine 100 unit/mL (3 20 unit (0.2 mL) subcut DAILY #15 03/17/22 mL) subcutaneous pen (Basaglar mL KwikPen U-100 Insulin) lancets ([employer] UltraSoft #200 ea 03/17/22 Lancets) fluticasone propionate 230 2 puff inhalation BID #12 grams 03/21/22 mcg-salmeterol 21 mcg/actuation HFA inhaler (Advair HFA) multivitamin (One-A-Day Essential 1 tab PO DAILY 03/21/22 tablet) triamcinolone acetonide 0.025 % 1 applic topical BID #15 grams 03/24/22 topical cream Current Visit Medications: Current Medications Generic Name Dose Route Start Last Admin Trade Name Freq PRN Reason Stop Dose Admin Ringer's Solution 1,000 mls @ 80 mls/hr 04/05/22 06:00 IV 05/04/22 23:59 INFUSION BROWN Cefazolin Sodium/Dextrose 2 gm in 50 mls @ 100 mls/hr 04/05/22 06:00 Ancef Duplex IVPB 04/05/22 16:00 PREOP BROWN IV Miscellaneous Supplies 1 each 04/05/22 06:00 Iv Access IV 05/04/22 23:59 DIRECTED BROWN Sodium Chloride 0 ml 04/05/22 06:00 Normal Saline Flush 10 Ml Syr IV 05/04/22 23:59 PRN PRN Sodium Chloride 0 ml 04/05/22 06:00 Normal Saline 10 Ml Vial IJ 05/04/22 23:59 DIRECTED PRN Sterile Water 0 ml 04/05/22 06:00 Water,Injection,Sterile 10 Ml Vial IJ 05/04/22 23:59 DIRECTED PRN PFSH Active Problems Active Problems: Problem Status Onset Code Lung nodule R91.1 Type 2 diabetes mellitus E11.9 Non-alcoholic fatty liver disease K76.0 Paraesophageal hiatal hernia K44.9 Asthma J45.909 Right upper lobe pulmonary nodule ~10/2021 Major depressive disorder, recurrent F33.9 Generalized anxiety disorder F41.1 Hyperlipidemia E78.5 Migraine G43.909 Gastroesophageal reflux disease with esophagitis K21.0 At risk for aspiration Z91.89 Degenerative joint disease, shoulder, 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 Degenerative joint disease, shoulder, right M19.011 Right rotator cuff tendonitis M75.81 Tendonitis of long head of biceps brachii of right shoulder M75.21 Carpal tunnel syndrome, right G56.01 SLAP lesion of right shoulder S43.431A Right supraspinatus tendinitis M75.91 Tubular adenoma of colon D12.6 Obesity (BMI 30.0-34.9) E66.9 Medical History Medical History RENAE (acute kidney injury) Bilateral nephrolithiasis History of kidney stones Incisional hernia Infection of total left knee replacement Pyloric ulcer associated with Helicobacter pylori Medical History Comments:: Hx of aspiration Surgical History Surgical History History of esophagogastroduodenoscopy History of incisional hernia repair History of total right knee replacement Hx of cystoscopy Lithotripsy, stents x 3 S/P recurrent ventral herniorrhaphy Status post arthroscopy of left knee (08/21/19) Status post cholecystectomy Status post laparoscopic hysterectomy Status post Compa fundoplication Status post revision of total replacement of left knee (07/21/20) Patellar resurfacing DOS: 07/21/2020 DOS: 12/22/17 Dr. Prohaska Status post tonsillectomy Status post total left knee replacement (07/06/17) Tobacco Smoking/Tobacco Use Status: Never Passive smoking exposure: Yes Second hand exposure: Yes Alcohol Alcohol Intake: current Alcohol intake frequency: holidays/special occasions only Alcohol type: hard liquor and other Substance Use Substance use: Never Substance use type: does not use Vital Signs and Lab Results Lab Results Blood Type / Crossmatch: No Data to Display Complete Blood Count: No Data to Display Complete Metabolic Panel: Sodium 133 mmol/L (136-145) L 04/01/22 13:57 Potassium 4.3 mmol/L (3.5-5.1) 04/01/22 13:57 Chloride 98 mmol/L (98-107) 04/01/22 13:57 Carbon Dioxide 20.8 mmol/L (21.0-32.0) L 04/01/22 13:57 BUN 21 mg/dL (7-18) H 04/01/22 13:57 Creatinine 1.0 mg/dL (0.55-1.02) 04/01/22 13:57 Est GFR (CKD-EPI 2020) 67.78 (mL/min/1.73m2) 04/01/22 13:57 Calcium 10.0 mg/dL (8.5-10.1) 04/01/22 13:57 Albumin 3.8 g/dL (3.4-5.0) 04/01/22 13:57 Glucose 399 mg/dL (74-106) H 04/01/22 13:57 Liver Function Panel: Alanine Aminotransferase (ALT/SGPT) 25 U/L (14-59) 04/01/22 13:57 Aspartate Amino Transf (AST/SGOT) 11 U/L (15-37) L 04/01/22 13:57 Coagulation Panel: No Data to Display Cardiac Panel: No Data to Display Arterial Blood Gas: No Data to Display Venous Blood Gas: No Data to Display Pancreas Panel: No Data to Display Thyroid Panel: No Data to Display Infectious Disease: No Data to Display Blood Cultures: No Data to Display Toxicology Panel: No Data to Display Panel: No Data to Display Imaging and Studies Imaging and Studies Study information below may be from another EMR and interpreted by another provider. Please see original notes in EMR for more complete details. Other Study Summary:: 04/14, gastric emptying study: no evidence of delated gastric emptying. 02/10, upper GI: hiatal hernia. Anesthesia Assessment and Plan Anesthesia History Personal History: No History of Anesthesia Complications and Other Family History: No Family History of Anesthesia Complications Exercise Tolerance Exercise Tolerance: Metabolic Equivalents<4 Pertinent Negatives Pertinent Negatives: No Major Cardiovascular Symptoms or Complaints and No History of CVA/TIA Cardiac & Pulmonary Exam Cardiac Exam: Normal S1/S2 Heart Sounds Pulmonary Exam: Clear Bilateral Breath Sounds Implantable Cardiac Device Does patient have a Pacemaker or an ICD?: No Airway Exam Known Difficult Airway: No Mallampati Class: 3 Mouth Opening: Narrow (< 3cm) Thyromental Distance: Less than 3 cm Neck Range of Motion: Limited ROM Neck Circumference: Thick Teeth Condition: Loose or Chipped ASA Classification ASA Score: ASA 3 Emergency Case?: No NPO Status NPO Status: NPO Clears >2 hours, Solids >8 hours Status Status: History of Hysterectomy Anesthesia Plan Resuscitation Status: Full Code Anesthesia Technique: Primary Nerve Block Airway Planned: Natural Airway Monitors Used: Standard Monitors Preoperative Comments:: 51 yo female with CTS for ECTR. Sig PMHx: uncontrolled DM, fatty liver, depression/anxiety, GERD, asthma- daily inhaler use, failed compa. Previous Anes: many anesthetics with us. History of green fluid around ETT cuff on extubation on many occasions. - previous Glez 2/Mac 3/Mac/4/glide 3 grade 1. Had long discussion on risks and benefits of regional vs general anesthesia. She understands that GA is an option but that regional anesthesia is likely the best for her. Plan: regional anesthesia under sedation, with GA as a backup.
[2022-04-05] MEDS: Lactated Ringers 1,000 ML 80 ML IV (10:43)
[2022-04-05 11:12] VITALS: BMI 31.0
[2022-04-05 11:25] VITALS: BP 159/100; PULSE 97; RESP 22; TEMP 36.6; O2SAT 97
--- NOTE | 2022-04-05 11:37 | W.PREOPHP ---
Assessment and Plan Assessment and plan (1) Carpal tunnel syndrome, right: Status: Chronic Assessment and plan: Fay is a 51-year-old female who has carpal tunnel syndrome on the right side. Please see the previous office note for complete detailed history. Once again, she is here today for carpal tunnel release on the right side. I discussed the technical details of carpal tunnel release and that I perform an endoscopic release, but would make a larger, open, incision if necessary for visualization. I discussed the risks of the procedure to include, but not limited to, bleeding, infection, palmar pain, stiffness, damage to nerves, damage to vessels, damage to tendons, weakness, recurrence, and incomplete release. Given these risks, Fay desires to proceed. History of Present Illness History of Present Illness Chief Complaint: Right Carpal Tunnel Syndrome Narrative: Fay is a 51-year-old who is here today for her right carpal tunnel syndrome. Please see the previous office note for complete detailed history. She continues have numbness and tingling about the right hand. She is had no changes to her medical history. She is recovering well from shoulder surgery. She denies any chest pain or shortness of breath. No fevers or chills. Review of Systems All systems reviewed & are unremarkable except as noted in HPI and below PFSH All Active Problems Lung nodule (Acute) Type 2 diabetes mellitus (Chronic) Non-alcoholic fatty liver disease (Chronic) Paraesophageal hiatal hernia (Chronic) Asthma (Chronic) Right upper lobe pulmonary nodule (Chronic ~10/2021) Major depressive disorder, recurrent (Chronic) Generalized anxiety disorder (Chronic) Hyperlipidemia (Chronic) Migraine (Chronic) Gastroesophageal reflux disease with esophagitis (Chronic) At risk for aspiration (Chronic) Gastric contents noted in mouth after all general ETT anesthetics. Recommend ETT for GA. Degenerative joint disease, shoulder, left (Chronic) Degenerative joint disease, shoulder, right (Chronic) Right rotator cuff tendonitis (Chronic) Injection: 11/25/2021 Tendonitis of long head of biceps brachii of right shoulder (Chronic) Carpal tunnel syndrome, right (Chronic) SLAP lesion of right shoulder (Chronic) Right supraspinatus tendinitis (Chronic) Tubular adenoma of colon (Chronic) Obesity (BMI 30.0-34.9) (Chronic) Medical History RENAE (acute kidney injury) Bilateral nephrolithiasis History of kidney stones Incisional hernia Infection of total left knee replacement Pyloric ulcer associated with Helicobacter pylori Surgical History History of esophagogastroduodenoscopy History of incisional hernia repair History of total right knee replacement Hx of cystoscopy Lithotripsy, stents x 3 S/P recurrent ventral herniorrhaphy Status post arthroscopy of left knee (08/21/19) Status post cholecystectomy Status post laparoscopic hysterectomy Status post Nga fundoplication Status post revision of total replacement of left knee (07/21/20) Patellar resurfacing DOS: 07/21/2020 DOS: 12/22/17 Dr. Gongora Status post tonsillectomy Status post total left knee replacement (07/06/17) Family History Mother Depression Hyperlipidemia Father , 72 Diabetes Heart disease Leukemia Hypertension Sister No problems noted. Maternal Grandfather , 80 Heart disease Hyperlipidemia Paternal Grandfather , 80 Diabetes Heart disease Hyperlipidemia Maternal Grandmother , 82 Diabetes Heart disease Paternal Grandmother , 73 Heart disease Hyperlipidemia Asthma Social History Smoking/Tobacco Use Status: Never Second Hand Exposure: Yes Smoking risk assessment performed?: Yes Alcohol Intake: current Alcohol Intake frequency: holidays/special occasions only Alcohol type: hard liquor and other Drug use: Never Substance use type: does not use Caregiver/Support person: No Household members: spouse Housing: apartment Communication Needs: None Do you need help understanding health information?: Never current occupation: Disabled Pets and animals: Yes Pets and animals: cat(s) and dog(s) Sexually active: No Do you think of yourself as: straight/heterosexual Current gender identity: female What is your relationship status?: How often do you talk on the phone with friends or family?: three or more times per week How often do you get together with friends or relatives?: three or more times per week How often do you attend holiness or spiritism services?: decline to answer Do you belong to any clubs or organized social groups?: no Panel score (0-1 are the most socially isolated patients): 2 What type of physical activity do you participate in: walking Duration: 15-30 minutes/day Frequency: 3-4 times per week Sita/Restorationism: No preference Special sita needs: No Seatbelt use: always Helmet use: No Drive intox or ride w/intox street flusher driver: No Do you feel safe at home: Yes Do you feel safe in your relationship?: Yes Meds Allergies and Home Medications Allergies Allergy/AdvReac Type Severity Reaction Status Date / Time latex Allergy Severe HIVES, Verified 03/24/22 15:35 ITCHING erythromycin base AdvReac Intermediate NAUSEA, Verified 03/24/22 15:35 VOMITING chlorhexidine AdvReac Mild Itching Verified 03/24/22 15:35 [From Hibiclens] codeine AdvReac NAUSEA, Verified 03/24/22 15:35 VOMITING Dermabond Allergy Intermediate Skin Rash Uncoded 04/05/22 10:03 Home Medications Medication Instructions Recorded Confirmed Type cholecalciferol (vitamin D3) 50 2,000 unit PO DAILY 05/19/15 04/05/22 History mcg (2,000 unit) capsule (Vitamin D3) cephalexin 500 mg capsule See Rx Instructions .Route 11/09/21 04/05/22 Rx .COMPLEX #90 caps fluoxetine 20 mg capsule 20 mg PO DAILY #90 tab-caps 12/13/21 04/05/22 Rx fluoxetine 40 mg capsule 40 mg PO DAILY #90 tab-caps 12/13/21 04/05/22 Rx albuterol sulfate 2.5 mg/3 mL 2.5 mg (3 mL) inhalation Q6H PRN 02/02/22 04/05/22 Rx (0.083 %) solution for nebulization shortness of breath or wheezing #360 mL atorvastatin 10 mg tablet 10 mg PO QPM #90 tabs 02/02/22 04/05/22 Rx cetirizine 10 mg tablet 10 mg PO DAILY #90 tab-caps 02/02/22 04/05/22 Rx esomeprazole magnesium 40 mg 40 mg PO DAILY #90 tab-caps 02/02/22 04/05/22 Rx capsule,delayed release (Nexium) gabapentin 300 mg capsule 300 mg PO BID #180 caps 02/02/22 04/05/22 Rx levalbuterol tartrate 45 2 inh inhalation Q6H PRN shortness 02/02/22 04/05/22 Rx mcg/actuation aerosol inhaler of breath or wheezing #45 grams magnesium oxide 500 mg capsule 500 mg PO DAILY #90 caps 02/02/22 04/05/22 Rx montelukast 10 mg tablet 10 mg PO HS #90 tabs 02/02/22 04/05/22 Rx (Singulair) nystatin 100,000 unit/gram topical 1 applic topical BID #30 grams 02/02/22 04/05/22 Rx cream ondansetron HCl 4 mg tablet 4 mg PO Q8H PRN nausea and 02/02/22 04/05/22 Rx vomiting #60 tabs pen needle, diabetic 32 gauge x #200 ea 02/02/22 04/04/22 Rx 1/4 (Comfort EZ Pen [place]) sucralfate 1 gram tablet (Carafate) 1 g PO QACHS PRN heartburn #120 02/02/22 04/05/22 Rx tabs triamcinolone acetonide 0.5 % 1 applic topical DAILY PRN rash 02/02/22 04/05/22 Rx topical cream #15 grams blood-glucose meter (OneTouch #1 ea 02/03/22 04/04/22 Rx UltraMini kit) metformin 500 mg tablet 1,000 mg PO BID #360 tabs 02/03/22 04/05/22 Rx acetaminophen 500 mg tablet 1,000 mg PO TID #90 tabs 03/02/22 04/05/22 Rx blood sugar diagnostic (OneTouch #200 ea 03/17/22 04/04/22 Rx Ultra Test strips) ferrous sulfate 325 mg (65 mg 325 mg PO DAILY #90 tabs 03/17/22 04/04/22 Rx iron) tablet insulin glargine 100 unit/mL (3 20 unit (0.2 mL) subcut DAILY #15 03/17/22 04/05/22 Rx mL) subcutaneous pen (Basaglar mL KwikPen U-100 Insulin) lancets ([employer] UltraSoft #200 ea 03/17/22 04/04/22 Rx Lancets) fluticasone propionate 230 2 puff inhalation BID #12 grams 03/21/22 04/05/22 Rx mcg-salmeterol 21 mcg/actuation HFA inhaler (Advair HFA) multivitamin (One-A-Day Essential 1 tab PO DAILY 03/21/22 04/05/22 History tablet) triamcinolone acetonide 0.025 % 1 applic topical BID #15 grams 03/24/22 04/05/22 Rx topical cream Exam Resp Auscultation: clear to auscultation bilaterally Cardio Rate: regular rate Rhythm: regular rhythm Results Last Vital Signs Temp 36.5 C 04/05/22 10:00 Pulse 83 04/05/22 10:00 Resp 16 04/05/22 10:00 BP 133/90 04/05/22 10:00 Pulse Ox 98 04/05/22 10:00
--- NOTE | 2022-04-05 11:44 | PDOC.DSDIS_ITS ---
Date of service: 04/05/22 Time of Service: 11:47 Discharge Plan Disposition Patient Disposition: Home Condition: Good Discharge Details Reason For Visit: Right carpal tunnel syndrome Attending Provider: Raheel Gongora Primary Care Provider: Renetta Bonner Home Meds and New Rx's Prescriptions: New hydrocodone-acetaminophen 5-325 mg tablet 1 tab PO Q6H PRN (Reason: severe pain) Qty: 4 0RF Rx Instructions: Take one tablet up to every 6 hours as needed for severe postoperative pain Continued insulin glargine [Basaglar KwikPen U-100 Insulin] 100 unit/mL (3 mL) insulin pen 20 unit subcut DAILY Qty: 15 3RF ferrous sulfate 325 mg (65 mg iron) tablet 325 mg PO DAILY Qty: 90 3RF (DME) OneTouch Ultra Test Strip 1 ea Miscellaneous DAILY Qty: 200 3RF Rx Instructions: Check blood sugar twice a day (DME) lancets [OneTouch UltraSoft Lancets] Misc 1 ea Miscellaneous DAILY Qty: 200 3RF Rx Instructions: Check blood sugar twice a day multivitamin [One-A-Day Essential] Tablet 1 tab PO DAILY Advair HFA 230-21 mcg/actuation HFA aerosol inhaler 2 puff inhalation BID Qty: 12 12RF Rx Instructions: Rinse mouth after use metformin 500 mg tablet 1,000 mg PO BID Qty: 360 3RF Rx Instructions: Take 2 tablet in the morning and evening (DME) blood-glucose meter [OneTouch UltraMini] Kit 1 ea Miscellaneous DAILY Qty: 1 3RF Rx Instructions: Check blood sugar twice a day triamcinolone acetonide 0.025 % cream 1 applic topical BID Qty: 15 0RF cholecalciferol (vitamin D3) [Vitamin D3] 2,000 UNIT capsule 2,000 unit PO DAILY cephalexin 500 mg capsule See Rx Instructions .ROUTE .COMPLEX Qty: 90 3RF Dose Instruction: TAKE ONE CAPSULE BY MOUTH THREE TIMES A DAY Rx Instructions: TAKE ONE CAPSULE BY MOUTH THREE TIMES A DAY fluoxetine 20 mg capsule 20 mg PO DAILY Qty: 90 3RF Rx Instructions: Take with 40mg cap for a total of 60mg fluoxetine 40 mg capsule 40 mg PO DAILY Qty: 90 3RF Rx Instructions: Take with 20mg cap for a total of 60mg atorvastatin 10 mg tablet 10 mg PO QPM Qty: 90 3RF cetirizine 10 mg tablet 10 mg PO DAILY Qty: 90 3RF esomeprazole magnesium [Nexium] 40 mg capsule,delayed release(DR/EC) 40 mg PO DAILY Qty: 90 3RF Patient Comments: pt. states it is omeprazole gabapentin 300 mg capsule 300 mg PO BID Qty: 180 3RF levalbuterol tartrate 45 mcg/actuation HFA aerosol inhaler 2 inh inhalation Q6H PRN (Reason: shortness of breath or wheezing) Qty: 45 4RF magnesium oxide 500 mg capsule 500 mg PO DAILY Qty: 90 3RF montelukast [Singulair] 10 mg tablet 10 mg PO HS Qty: 90 3RF nystatin 100,000 unit/gram cream 1 applic topical BID Qty: 30 0RF (DME) pen needle, diabetic [Comfort EZ Pen Eckerman] 32 gauge x 1/4 needle See Rx Instructions .ROUTE .MEDSUPPLY Qty: 200 3RF Rx Instructions: Check blood sugar twice a day ondansetron HCl 4 mg tablet 4 mg PO Q8H PRN (Reason: nausea and vomiting) Qty: 60 0RF sucralfate [Carafate] 1 gram tablet 1 g PO QACHS PRN (Reason: heartburn) Qty: 120 0RF Rx Instructions: Take 30 minutes before meals and at bedtime as needed for heartburn triamcinolone acetonide 0.5 % cream 1 applic Topical DAILY PRN (Reason: rash) Qty: 15 1RF Rx Instructions: Apply thin layer once daily to hands and arm as needed albuterol sulfate 2.5 mg /3 mL (0.083 %) solution for nebulization 2.5 mg Inhalation Q6H PRN (Reason: shortness of breath or wheezing) Qty: 360 3RF Patient Comments: 07/03/17 Per pt uses every night.jw acetaminophen 500 mg tablet 1,000 mg PO TID Qty: 90 3RF Discharge Instructions Stand Alone Forms: [place] Marci. Tunnel Release Activity:: Elevate Remove Dressings/Wound Care:: 48 hours Shower/Bathe:: 48 hours Diet:: As Tolerated Discharge Orders Discharge Orders: Discharge Order (Routine); Ordered 04/05/22 Ordered By: Marilee Coughlin DS: Diagnosis Discharge Diagnosis (1) Carpal tunnel syndrome, right: Status: Chronic
[2022-04-05] MEDS: ceFAZolin 2 GM/50 ML BAG IVPB (11:52)
[2022-04-05 12:11] VITALS: BP 150/96; PULSE 77; RESP 16; TEMP 36.6; O2SAT 97
--- NOTE | 2022-04-05 12:13 | W.ANESNERVE ---
Nerve Block Single Injection Procedure Date and Time Date Performed: 04/05/22 Procedure Start: 11:30 Location Where Procedure Performed Procedure Location: Day Surgery Unit Reason Performed: Other Requesting Provider: Raheel Gongora Timeout Performed Timeout Performed: Yes Monitoring Used ECG, Blood Pressure and SpO2 Sterility Sterility: Hand Hygiene, Surgical Cap, Surgical Mask, Sterile Gloves and Alcohol Sedation Given During Procedure Sedation Given (Indicate Dose Given): Versed IV (2 mg + 2 mg, would use less in the future. ) Dose:: 4 mg Patient Mental Status Patient Mental Status: Sedate with meaningful communication Nerve Block 1st Nerve Block: Laterality: Right Block Type: Median Ultrasound Image Saved?: Yes Needle / Catheter Used: Other (25 ga, 1.5) Local Anesthetic Bolus (Indicate Dose Given): Lidocaine 2% Dose:: 5 mL Additives (Indicate Dose Given): None Ultrasound: Sterile probe cover and gel used Nerve Stimulator: Not Used Paresthesia: None Procedure Tolerated: No Complications Procedure Outcome: Successful Performed By: Nabil Gregory 2nd Nerve Block: Laterality: Right Block Type: Ulnar Ultrasound Image Saved?: Yes Needle / Catheter Used: Other Local Anesthetic Bolus (Indicate Dose Given): Lidocaine 2% Dose:: 5 mL Additives (Indicate Dose Given): None Ultrasound: Sterile probe cover and gel used Nerve Stimulator: Not Used Paresthesia: None Procedure Tolerated: No Complications Procedure Outcome: Successful Performed By: Nabil Gregory 3rd Nerve Block: Laterality: Right Block Type: Other (infiltration at wrist crease. ) Ultrasound Image Saved?: No Needle / Catheter Used: Other Local Anesthetic Bolus (Indicate Dose Given): Lidocaine 2% Dose:: 5 mL Additives (Indicate Dose Given): None Ultrasound: Not Used Nerve Stimulator: Not Used Paresthesia: None Procedure Tolerated: No Complications and Other (superficial vein hit on advancement, hematoma noted after. ) Procedure Outcome: Successful Performed By: Nabil Gregory
--- NOTE | 2022-04-05 12:26 | W.ANESPOSTOP ---
Postoperative Evaluation Date, Time and Location Date Performed: 04/05/22 Time Performed: 12:26 Patient Location: Day Surgery Unit Vital Signs Most Recent Imported Vital Signs: Most Recent Vital Signs Temp Pulse Resp BP Pulse Ox 36.6 C 77 16 150/96 H 97 04/05/22 12:11 04/05/22 12:11 04/05/22 12:11 04/05/22 12:11 04/05/22 12:11 Pain Score Most Recent Pain Score: Most Recent Pain Score Pain Level 0 04/05/22 12:11 Assessment Mental Status: Awake (Alert & Oriented to Patient Baseline) Airway and Respiratory Function: Patent airway with normal (patient baseline) respiratory exam Cardiovascular Function: Hemodynamically Stable Hydration Status: Adequately Hydrated Nausea & Vomiting: Active Nausea or Vomiting Present Nausea and Vomiting Management: Other Pain: Pt. Denies Any Pain Peripheral Nerve Block: Patient did not receive a nerve block
[2022-04-05 12:49] VITALS: BP 120/80; PULSE 71; RESP 16; TEMP 36.6; O2SAT 97
--- NOTE | 2022-04-05 12:58 | W.PM.OP ---
Date of service: 04/05/22 Time of Service: 11:45 Operative Note Operative Note DATE OF PROCEDURE: 04/05/22 PRE-OP DIAGNOSIS: Right Carpal Tunnel Syndrome POST-OP DIAGNOSIS: same PROCEDURE: Right Endoscopic Carpal Tunnel Release SURGEON: Raheel Gongora ANESTHESIA TYPE: General:No Airway and Primary Nerve Block Refer to Anesthesia Record ESTIMATED BLOOD LOSS: 0 PATHOLOGY: none sent TOURNIQUET TIME: 6 COMPLICATIONS: None Patient was transported to: same day Patient's condition: stable Indications: I have seen Fay in clinic for symptoms of carpal tunnel syndrome. The numbness, tingling, and pain limited function. Clinical exam findings confirmed the diagnosis of carpal tunnel syndrome. Nonoperative measures such as bracing, time, activity modifications had been tried but disability and pain persisted. I discussed carpal tunnel release with the patient. I reviewed the risks of the procedure to include, but not limited to, bleeding, infection, pain, stiffness, incomplete release, damage to nerves or vessels, persistent numbness, recurrence. Despite these risks, the patient elected to proceed. Findings: There was tightened carpal tunnel. This was dilated and released successfully with the endoscopic with increased space within the tunnel. The antebrachial fascia was released proximally freeing the median nerve at the wrist. Procedure Description: Fay was greeted in the preoperative holding area where the correct side was identified and marked. The consent was reviewed with the patient and signed. The history and physical was updated. All questions were answered. She was taken back to the operating room. The patient was placed into the supine position on the operating room table with the right arm on an arm board. A nonsterile tourniquet was placed high onto the arm. All bony prominences were well padded. Prophylactic antibiotics in the form of Cefazolin were administered. The right arm was then prepped with Chloraprep and draped in a standard fashion with stockinette and extremity drape. A timeout to confirm correct identity, side and site, procedure, allergies, anesthesia, and medical concerns was performed. The surgical site was marked in the volar wrist creases in line with the radial border of the fourth ray. This area was anesthetized with approximately 6cc of 1% Lidocaine. The limb was then exsanguinated with an Esmarch. The skin was incised with a 15 blade, approximately 1cm. The skin only was cut and the deeper tissue was dissected bluntly with a tenotomy scissor, avoiding passing nerve and venous structures. The fascia was penetrated and opened bluntly. A two-prong skin hook was placed under this proximal fascial edge. A series of hamate finders were used to identify and dilate the carpal tunnel. Synovial elevator was used to free synovial attachments to the underside of the transverse carpal ligament. My thumb was kept in the palm to daniella the distal extent of the carpal tunnel and correctly position the hand. The Microaire endoscope was inserted without difficulty and without resistance. Excellent visualization showed horizontally running fibers of the transverse carpal ligament (TCL). The distal extent of the TCL was visualized and the end of the scope palpated with the thumb. The blade was elevated and withdrawn from distal to proximal. The TCL was split into two flaps. The endoscope was reinserted to confirm complete release and any remnant ligament was incised. The scope was withdrawn and the proximal aspect of the carpal tunnel was grossly inspected and appeared release with the median nerve visible. The antebrachial fascia at the level of the wrist was then freed from the overlying skin and then the underlying median nerve with blunt dissection. This was transected longitudinally for about 3cm proximal to the wrist incision. The wound was then irrigated with easy flow of irrigant distally and proximally. The incision was closed with a single 4-0 Nylon suture. The wound was dressed with Xeroform, Gauze, Kerlix and Lawrence. The tourniquet was deflated with the initial dressing and held with some pressure. Blood flow returned easily to all digits with capillary refill less than 2 seconds. The patient tolerated the procedure well and was returned to the Same Day Surgery area in a stable condition suffering no known complication.
== END 2022-04-05 13:17 | disposition home or self-care (01) ==
PROVIDERS: PCP Nurse Practitioner Family; Visit Provider Student in an Organized Health Care Education/Training Program
PROC: 01N54ZZ Release Median Nerve, Percutaneous Endoscopic Approach (ICD-10-PCS; CPT 29848; principal; 2022-04-05 12:30)
DX: G56.01 Carpal tunnel syndrome, right upper limb (principal); E11.9 Type 2 diabetes mellitus without complications
CPT/HCPCS: 29848; 76942; J0690; J1100; J2250; J2405; J2704

== ENCOUNTER → 2022-04-14 10:16 | Outpatient (BNVA) | payer MEDICARE, SELFPAY | PROVIDERS: PCP Nurse Practitioner Family; Referring Provider Nurse Practitioner Family; Visit Provider Student in an Organized Health Care Education/Training Program | DX: Z47.89 Encounter for other orthopedic aftercare (principal); R20.0 Anesthesia of skin; M75.21 Bicipital tendinitis, right shoulder ==

== ENCOUNTER 2022-04-27 01:52 | Outpatient (CLI) | payer MEDICARE, SELFPAY ==
--- NOTE | 2022-04-27 07:00 | DI.CT_ITS ---
Exam(s) CT CHEST WO EXAM: CT CHEST WO CLINICAL HISTORY: f/u rul lung nodule, r91.1 TECHNIQUE: Imaging Protocol: Axial computed tomography images with coronal and sagittal reformatted images were created and reviewed CONTRAST MATERIAL: Intravenous: Omnipaque 350 Contrast volume:structured data ml. COMPARISON: CT CT CHEST/ABD/PEL W from 12/30/2021 FINDINGS: Pulmonary parenchyma: No consolidation. Stable or decreased prominence of small area of spiculation in the right upper lobe. This may represent a small area of scarring and as located at a vessel bran ch point. No new nodules. Tracheobronchial tree: No bronchiectasis or mucous plugging. Mediastinum and Niesha: No dominant adenopathy or fluid collection. Pleura: No effusion or pneumothorax. Heart: The heart is not dilated. No coronary artery calcifications are seen. Aorta: Thoracic aorta non-dilated. Upper abdomen: Small hiatal hernia. Hepatic steatosis. Status post cholecystectomy. Bones: Degenerative changes. Soft tissues: Unremarkable. IMPRESSION: Stable or decreased prominence of small area of spiculation in the right upper lobe now measuring 6 x 4 millimeters. Continued follow-up recommended in 6 months. RADIATION DOSE DELIVERED: 606.25mGy.cm Total DLP DATA REPOSITORY: All CT scans at this facility are submitted to the National Radiology Data Registry (NRDR) Dose Index Registry (DIR) with the [employer] (ACR). RADIATION OPTIMIZATION: All CT scans at this facility use at least one of these dose optimization te chniques: automated exposure control; mA and/or kV adjustment per patient size (includes targeted exa ms where dose is matched to clinical indication); or iterative reconstruction.
== END 2022-04-27 02:12 ==
PROVIDERS: PCP Nurse Practitioner Family; Visit Provider Student in an Organized Health Care Education/Training Program
DX: R91.1 Solitary pulmonary nodule (principal)
CPT/HCPCS: 71250

== ENCOUNTER 2022-05-18 13:18 | Outpatient (REF) | payer MEDICARE, SELFPAY ==
[2022-05-18 14:18] LABS: COMMENT (LAB VIEW ONLY) 195.18 mg/dL; Microalb ug/mg Crea 9.2 ug/mg Cr
== END 2022-05-18 13:19 | disposition home or self-care (01) ==
LOC: LBN 13:18
PROVIDERS: PCP Nurse Practitioner Family; Visit Provider Nurse Practitioner Family
DX: E11.9 Type 2 diabetes mellitus without complications (principal)
CPT/HCPCS: 82043; 82570

== ENCOUNTER 2022-05-19 11:48 | Outpatient (CLI) | payer MEDICARE, SELFPAY ==
--- NOTE | 2022-05-19 08:45 | DI.RAD_ITS ---
Exam(s) XR SHOULDER LT COMPLETE 2+V EXAM: XR SHOULDER LT COMPLETE 2+V CLINICAL HISTORY: left shoulder pain. TECHNIQUE: 2D digital imaging was performed. Three views. COMPARISON: MR MR UPPER JOINT RT WO from 02/15/2022 FINDINGS: BONES: No acute fracture is present. No bony destructive lesion is seen. JOINTS: No dislocation present. Mild spurring AC joint. Mild narrowing and spurring at the glenohum eral joint. SOFT TISSUE: Normal. IMPRESSION: Mild degenerative changes. DATA REPOSITORY: RADIATION DOSE DELIVERED:
== END 2022-05-19 11:49 | disposition home or self-care (01) ==
LOC: DIORS 11:48
PROVIDERS: PCP Nurse Practitioner Family; Referring Provider Nurse Practitioner Family; Visit Provider Student in an Organized Health Care Education/Training Program
DX: M75.22 Bicipital tendinitis, left shoulder (principal); M75.82 Other shoulder lesions, left shoulder
CPT/HCPCS: 20610; 73030; J1040

== ENCOUNTER 2022-05-20 02:48 | Outpatient (CLI) | payer MEDICARE, SELFPAY ==
[2022-05-20 15:44] LABS: Anion Gap 12.1 mmol/L (3-11); BUN 16 mg/dL (7-18); CO2 24.9 mmol/L (21.0-32.0); Calcium 9.3 mg/dL (8.5-10.1); Chloride 100 mmol/L (98-107); Estimated GFR 67.78 (mL/min/1.73m2); Glucose 259 mg/dL (74-106); Potassium 3.9 mmol/L (3.5-5.1); Sodium 137 mmol/L (136-145)
== END 2022-05-20 02:49 | disposition home or self-care (01) ==
PROVIDERS: PCP Nurse Practitioner Family; Visit Provider Nurse Practitioner Family
DX: E11.9 Type 2 diabetes mellitus without complications (principal)
CPT/HCPCS: 36415; 80048

== ENCOUNTER 2022-05-25 01:19 | Outpatient (CLI) | payer MEDICARE, SELFPAY ==
--- NOTE | 2022-05-25 08:00 | DI.MAMMO_ITS ---
Exam(s) MAMMO SCREENING EXAM: MAMMO SCREENING CLINICAL HISTORY: screening,Z12.39 TECHNIQUE: Mammograms were interpreted according to the usual protocol including computer analysis w [employer] CAD system, tomosynthesis and C-view imaging. COMPARISON: 2017 through 2019 FINDINGS: The breasts are composed of scattered fibroglandular densities, Breast Density category B. No suspicious masses or suspicious microcalcifications are seen. No skin thickening or abnormal axillary lymph nodes are seen. There has been no significant change from prior exams. IMPRESSION: BI-RADS Category 1, Negative mammogram Yearly screening mammography is recommended. Breast Density - Category B, scattered fibroglandular densities. A negative radiographic report should not delay biopsy if a dominant or clinically suspicious mass is present. Up to ten percent of cancers are not identified on mammography. A negative report may reinforce clinical impression. Adenosis and dense breasts may obscure an underlying neoplasm. False positive reports average 6 to 10%. Patient will receive a letter notifying them of these results.
== END 2022-05-25 01:39 ==
PROVIDERS: PCP Nurse Practitioner Family; Visit Provider Nurse Practitioner Family
DX: Z12.31 Encounter for screening mammogram for malignant neoplasm of breast (principal)
CPT/HCPCS: 77063; 77067

== ENCOUNTER → 2022-07-25 14:06 | Outpatient (BNVA) | payer MEDICARE, SELFPAY | PROVIDERS: PCP Nurse Practitioner Family; Referring Provider Nurse Practitioner Family; Visit Provider Student in an Organized Health Care Education/Training Program | DX: M75.82 Other shoulder lesions, left shoulder (principal) | CPT/HCPCS: 99213 ==

== ENCOUNTER 2022-08-09 01:42 | Outpatient (CLI) | payer MEDICARE, SELFPAY ==
--- NOTE | 2022-08-09 07:45 | DI.MRI_ITS ---
Exam(s) MR UPPER JOINT LT WO EXAM: MR UPPER JOINT LT WO CLINICAL HISTORY: PAIN, tendonitis lt rotator cuff, M75.82. TECHNIQUE: Multiplanar multisequence MRI was performed. COMPARISON: MR MR UPPER JOINT RT WO from 02/15/2022 CR XR SHOULDER LT COMPLETE 2+V from 05/19/2022 FINDINGS: Exam is limited by patient body habitus. BONES: There is no fracture or contusion pattern. JOINTS: There are mild degenerative changes seen at the acromioclavicular joint. There are degenerat jabier changes seen at the glenohumeral joint with cartilage thinning and subchondral cysts. There is a subchondral cyst seen in the lateral aspect of the humeral head. TENDONS: Supraspinatus: Unremarkable. Infraspinatus: Unremarkable. Subscapularis: Unremarkable. Teres Minor: On the sagittal views there is a question of mild increased signal seen within the teres minor tendon at its insertion. This may represent a partial tear or tendinosis. Biceps and Patterson: Unremarkable. MUSCLES: Unremarkable. GLENOID LABRUM: There is some intermediate signal seen in the superior labrum which may represent deg eneration. There is a focus of hyperintense signal seen in the superior labrum at its base suspiciou s for partial tear suspicious for tear. (Series 6001, image 14). SOFT TISSUES: Unremarkable. LIGAMENTS: Unremarkable. OTHER: Subacromial and subdeltoid bursae are unremarkable. IMPRESSION: 1. Examination limited by patient body habitus. 2. Findings suggestive of tendinosis or partial tear of the teres minor tendon. 3. Degeneration of the superior labrum. Findings which may represent a tear of the superior labrum a s described above. 4. Degenerative changes seen in the shoulder. DATA REPOSITORY:
== END 2022-08-09 02:02 ==
LOC: DI 01:42
PROVIDERS: PCP Nurse Practitioner Family; Visit Provider Student in an Organized Health Care Education/Training Program
DX: M75.82 Other shoulder lesions, left shoulder (principal); M19.012 Primary osteoarthritis, left shoulder
CPT/HCPCS: 73221

== ENCOUNTER → 2022-08-19 10:38 | Outpatient (BNVA) | payer MEDICARE, SELFPAY | PROVIDERS: PCP Nurse Practitioner Family; Referring Provider Nurse Practitioner Family; Visit Provider Student in an Organized Health Care Education/Training Program | DX: M75.112 Incomplete rotator cuff tear or rupture of left shoulder, not specified as traumatic (principal); S43.432A Superior glenoid labrum lesion of left shoulder, initial encounter; X58.XXXA Exposure to other specified factors, initial encounter | CPT/HCPCS: 99213 ==

== ENCOUNTER → 2022-11-08 02:41 | Outpatient (CLI) | payer MEDICARE, SELFPAY ==
--- NOTE | 2022-11-08 07:30 | DI.CT_ITS ---
Exam(s) CT CHEST WO EXAM: CT CHEST WO CLINICAL HISTORY: Follow up nodule,asthma,j45.189. TECHNIQUE: Imaging protocol: Axial computed tomography images were obtained and coronal and sagittal reformatted images were created and reviewed. COMPARISON: CT CT CHEST WO from 04/27/2022 FINDINGS: Tracheobronchial tree: Patent where visualized. Pulmonary parenchyma: No consolidation or dominant measurable mass. There is a stable 4 mm nodule in the medial aspect of the left upper lobe. There has been no change in the 7 mm area of scarring in t he posterior aspect of the right upper lobe. No new pulmonary nodules are present. Mediastinum and Niesha: No dominant adenopathy or fluid collection. The esophagus is unremarkable.There is a small hiatal hernia. Thyroid gland: Unremarkable. Pleura: No effusion or pneumothorax. Heart: The heart is not dilated. Mild coronary artery calcification is present. No pericardial effus ion. Aorta: Thoracic aorta non-dilated. Upper abdomen: There is fatty infiltration of the liver. Status post cholecystectomy. Lymph nodes: Within normal limits. Soft tissues: Unremarkable. Bones:Within normal limits for the patient's age. IMPRESSION: 1. Stable area spiculation in the right upper lobe. 2. Stable left upper lobe pulmonary nodule. 3. Six-month follow-up examination is recommended. Alternatively, PET/CT scan may be considered for further evaluation. RADIATION DOSE DELIVERED: 545.3mGy.cm Total DLP 545.3mGy.cm Total DLP DATA REPOSITORY: All CT scans at this facility are submitted to the National Radiology Data Registry (NRDR) Dose Index Registry (DIR) with the [employer] (ACR). RADIATION OPTIMIZATION: All CT scans at this facility use at least one of these dose optimization te chniques: automated exposure control; mA and/or kV adjustment per patient size (includes targeted exa ms where dose is matched to clinical indication); or iterative reconstruction.
== END ==
PROVIDERS: PCP Nurse Practitioner Family; Visit Provider Physician Assistant Surgical
DX: J45.909 Unspecified asthma, uncomplicated (principal); R91.1 Solitary pulmonary nodule
CPT/HCPCS: 71250

== ENCOUNTER → 2022-11-21 10:49 | Outpatient (BNVA) | payer MEDICARE, SELFPAY | PROVIDERS: PCP Nurse Practitioner Family; Referring Provider Nurse Practitioner Family; Visit Provider Student in an Organized Health Care Education/Training Program | DX: J45.909 Unspecified asthma, uncomplicated (principal); Z79.51 Long term (current) use of inhaled steroids; R91.1 Solitary pulmonary nodule | CPT/HCPCS: 94010; 99214 ==

== ENCOUNTER 2022-11-28 10:13 | Outpatient (CLI) | payer MEDICARE, SELFPAY ==
--- NOTE | 2022-11-28 09:00 | DI.RAD_ITS ---
Exam(s) XR KNEE LT 3V AP,LAT,ANNE EXAM: XR KNEE LT 3V AP,LAT,ANNE CLINICAL HISTORY: eval L medial knee pain. TECHNIQUE: 2D digital imaging was performed. Three views. COMPARISON: CR XR KNEE LT 3V AP,LAT,ANNE from 04/15/2021 FINDINGS: BONES: No acute fracture is present. No bony destructive lesion is seen. There has no change in the long stem knee prosthesis. JOINTS: The knee is normally aligned. No joint effusion is seen. SOFT TISSUE: Normal. IMPRESSION: Appearance of knee prosthesis. DATA REPOSITORY: RADIATION DOSE DELIVERED:
== END 2022-11-28 10:14 | disposition home or self-care (01) ==
LOC: DIORS 10:13
PROVIDERS: PCP Nurse Practitioner Family; Referring Provider Nurse Practitioner Family; Visit Provider Student in an Organized Health Care Education/Training Program
DX: Z96.652 Presence of left artificial knee joint; M70.52 Other bursitis of knee, left knee; T84.84XD Pain due to internal orthopedic prosthetic devices, implants and grafts, subsequent encounter; M75.22 Bicipital tendinitis, left shoulder; M75.21 Bicipital tendinitis, right shoulder; S43.432A Superior glenoid labrum lesion of left shoulder, initial encounter; X58.XXXA Exposure to other specified factors, initial encounter
CPT/HCPCS: 20610; 73562; 99214; J1030

== ENCOUNTER 2023-01-03 02:54 | Outpatient (CLI) | payer MEDICARE, SELFPAY ==
[2023-01-03] MEDS: Levalbuterol HFA 15 GM INH 4 PUFF IH (14:14)
[2023-01-03] MEDS: Inhaler, Assist Device 1 EACH MC (14:14)
--- NOTE | 2023-01-03 16:13 | W.PFT ---
Date of service: 01/03/23 Time of Service: 13:10 Pulmonary Function Test Result Indications: Asthma Interpretation Spirometry: There is severe airflow limitation. No significant bronchodilator response. Lung Volumes: Normal lung volumes Diffusion Capacity: Normal diffusion Airway Pressure: Normal airways resistance Impression Severe airflow obstruction with a normal diffusion Clinical Correlation therefore is recommended.
== END 2023-01-03 02:55 | disposition home or self-care (01) ==
LOC: RT 02:55
PROVIDERS: PCP Nurse Practitioner Family; Visit Provider Student in an Organized Health Care Education/Training Program
DX: J45.909 Unspecified asthma, uncomplicated (principal)
CPT/HCPCS: 94060; 94726; 94729

== ENCOUNTER → 2023-02-02 13:39 | Outpatient (BNVA) | payer MEDICARE, SELFPAY | PROVIDERS: PCP Nurse Practitioner Family; Referring Provider Nurse Practitioner Family; Visit Provider Student in an Organized Health Care Education/Training Program | DX: M75.21 Bicipital tendinitis, right shoulder (principal); M75.51 Bursitis of right shoulder; M75.112 Incomplete rotator cuff tear or rupture of left shoulder, not specified as traumatic; E11.9 Type 2 diabetes mellitus without complications; S43.432D Superior glenoid labrum lesion of left shoulder, subsequent encounter; X58.XXXD Exposure to other specified factors, subsequent encounter | CPT/HCPCS: 99213 ==

== ENCOUNTER 2023-02-07 11:17 | Day surgery (SDC) | payer MEDICARE, SELFPAY ==
[2023-02-07] VITALS (9 sets, daily range): BP systolic 96–129; BP diastolic 47–90; PULSE 65–85; RESP 16–20; TEMP 36.1–36.5; O2SAT 95–98; BMI 30.9
--- NOTE | 2023-02-07 08:34 | W.PM.DSUDISC ---
Date of service: 02/07/23 Time of Service: 08:38 Discharge Plan Disposition Patient Disposition: Home Condition: Good Discharge Details Reason For Visit: Left rotator cuff tear Attending Provider: Raheel Gongora Primary Care Provider: Renetta Bonner Home Meds and New Rx's Prescriptions: New acetaminophen 500 mg tablet 1,000 mg PO Q8H PRN Qty: 90 0RF Rx Instructions: Take two tablets up to every 8 hours as needed for pain ibuprofen 600 mg tablet 600 mg PO TID PRN (Reason: pain) Qty: 60 0RF oxycodone 5 mg tablet 5 mg PO Q4H PRNQty: 20 0RF Rx Instructions: Take one tablet up to every 4 hours as needed for severe postoperative pain Continued ferrous sulfate 325 mg (65 mg iron) tablet 325 mg PO DAILY Qty: 90 3RF multivitamin [One-A-Day Essential] Tablet 1 tab PO DAILY fluticasone propion-salmeterol [Advair HFA] 230-21 mcg/actuation HFA aerosol inhaler 2 puff inhalation BID Qty: 12 12RF Rx Instructions: Rinse mouth after use triamcinolone acetonide 0.025 % cream 1 applic topical BID Qty: 15 0RF (DME) blood-glucose meter [[employer] Ultra2 Meter] Misc See Rx Instructions .Route Qty: 1 3RF Rx Instructions: Check blood sugar twice a day lidocaine 4 % adhesive patch,medicated 1 patch topical DAILY PRN (Reason: pain) Qty: 30 0RF Rx Instructions: apply lidocaine patch daily as directed cyclobenzaprine 5 mg tablet 5 mg PO TID PRN (Reason: back pain) Qty: 30 0RF Rx Instructions: Take 1 tablet by mouth three times a day as needed for back pain montelukast [Singulair] 10 mg tablet 10 mg PO HS Qty: 90 3RF empagliflozin 25 mg tablet 25 mg PO DAILY Qty: 90 3RF Rx Instructions: Take 1 tablet daily glipizide 5 mg tablet extended release 24hr 5 mg PO DAILY Qty: 90 3RF (DME) [employer] Ultra Test Strip 1 ea Miscellaneous DAILY Qty: 200 3RF Rx Instructions: Check blood sugar twice a day insulin glargine [Basagllaurel Alonso U-100 Insulin] 100 unit/mL (3 mL) insulin pen 26 unit subcut DAILY Qty: 15 3RF (DME) lancets Misc 1 ea Miscellaneous DAILY Qty: 200 3RF Rx Instructions: Check blood sugar twice a day semaglutide 1 mg/dose (2 mg/1.5 mL) pen injector 1 mg subcut QWEEK Qty: 3 0RF Rx Instructions: 1mg once a week for 4 weeks fluoxetine 40 mg capsule 40 mg PO DAILY Qty: 90 3RF Rx Instructions: Take with 20mg cap for a total of 60mg gabapentin 300 mg capsule 300 mg PO BID Qty: 180 3RF buspirone 5 mg tablet 5 mg PO BID Qty: 180 3RF fluoxetine 20 mg capsule 20 mg PO DAILY Qty: 90 3RF Rx Instructions: Take with 40mg cap for a total of 60mg atorvastatin 10 mg tablet 10 mg PO QPM Qty: 90 3RF esomeprazole magnesium [Nexium] 40 mg capsule,delayed release(DR/EC) 40 mg PO DAILY Qty: 90 3RF Patient Comments: pt. states it is omeprazole metformin 500 mg tablet 1,000 mg PO BID Qty: 360 3RF Rx Instructions: Take 2 tablet in the morning and evening magnesium oxide 500 mg capsule 500 mg PO DAILY Qty: 90 3RF cetirizine 10 mg tablet 10 mg PO DAILY Qty: 90 3RF cephalexin 500 mg capsule 500 mg PO TID Qty: 270 3RF cholecalciferol (vitamin D3) [Vitamin D3] 2,000 UNIT capsule 2,000 unit PO DAILY nystatin 100,000 unit/gram cream 1 applic topical BID Qty: 30 0RF (DME) pen needle, diabetic [Comfort EZ Pen Gravette] 32 gauge x 1/4 needle See Rx Instructions .ROUTE .MEDSUPPLY Qty: 200 3RF Rx Instructions: Check blood sugar twice a day ondansetron HCl 4 mg tablet 4 mg PO Q8H PRN (Reason: nausea and vomiting) Qty: 60 0RF triamcinolone acetonide 0.5 % cream 1 applic Topical DAILY PRN (Reason: rash) Qty: 15 1RF Rx Instructions: Apply thin layer once daily to hands and arm as needed albuterol sulfate 2.5 mg /3 mL (0.083 %) solution for nebulization 2.5 mg Inhalation Q6H PRN (Reason: shortness of breath or wheezing) Qty: 360 3RF Patient Comments: 07/03/17 Per pt uses every night.jw metoclopramide HCl [Reglan] 5 mg tablet 5 mg PO TID PRN (Reason: nausea and vomiting) Qty: 270 3RF levalbuterol tartrate 45 mcg/actuation HFA aerosol inhaler 2 inh inhalation Q6H PRN (Reason: shortness of breath or wheezing) Qty: 45 4RF Discontinued acetaminophen 500 mg tablet 1,000 mg PO TID Qty: 90 3RF Discharge Instructions Stand Alone Forms: Fransisca Boudreaux w/BT Referrals: Raheel Gongora MD [ [facility] STAFF PHYSICIAN] - Equipment/Supplies: Sling Remove Dressings/Wound Care:: 72 hours Shower/Bathe:: 72 hours and Cover Diet:: As Tolerated Discharge Orders Discharge Orders: Discharge Order (Routine); Ordered 02/07/23 Ordered By: Marilee Coughlin
[2023-02-07] MEDS: Lactated Ringers 1,000 ML 80 ML IV (12:34)
--- NOTE | 2023-02-07 12:58 | ANES.PREOP_ITS ---
General Info Date of Service Date Performed: 02/07/23 Height: 5 ft 3 in Weight: 79.3 kg Body Mass Index (BMI): 30.9 Surgical Procedure: Operation Date: 02/07/23 15:25 Proposed Procedure Side Surgeon p Shoulder Arthroscopy, Debridement, Biceps Tenodesis Left Raheel Gongora MD Meds Allergies and Home Medications Allergies Allergy/AdvReac Type Severity Reaction Status Date / Time latex Allergy Severe HIVES, Verified 02/07/23 11:57 ITCHING erythromycin base AdvReac Intermediate NAUSEA, Verified 02/07/23 11:57 VOMITING chlorhexidine AdvReac Mild Itching Verified 02/07/23 11:57 [From Hibiclens] codeine AdvReac NAUSEA, Verified 02/07/23 11:57 VOMITING Dermabond Allergy Intermediate Skin Rash Uncoded 02/07/23 11:57 Glue Allergy Mild Rash and Uncoded 02/07/23 11:57 blisters Home Medication Medication Instructions Recorded cholecalciferol (vitamin D3) 50 2,000 unit PO DAILY 05/19/15 mcg (2,000 unit) capsule (Vitamin D3) albuterol sulfate 2.5 mg/3 mL 2.5 mg (3 mL) inhalation Q6H PRN 02/02/22 (0.083 %) solution for nebulization shortness of breath or wheezing #360 mL nystatin 100,000 unit/gram topical 1 applic topical BID #30 grams 02/02/22 cream ondansetron HCl 4 mg tablet 4 mg PO Q8H PRN nausea and 02/02/22 vomiting #60 tabs pen needle, diabetic 32 gauge x #200 ea 02/02/2202/23 (Comfort EZ Pen [place]) triamcinolone acetonide 0.5 % 1 applic topical DAILY PRN rash 02/02/22 topical cream #15 grams ferrous sulfate 325 mg (65 mg 325 mg PO DAILY #90 tabs 03/17/22 iron) tablet fluticasone propionate 230 2 puff inhalation BID #12 grams 03/21/22 mcg-salmeterol 21 mcg/actuation HFA inhaler (Advair HFA) multivitamin (One-A-Day Essential 1 tab PO DAILY 03/21/22 tablet) triamcinolone acetonide 0.025 % 1 applic topical BID #15 grams 03/24/22 topical cream empagliflozin 25 mg tablet 25 mg PO DAILY #90 tabs 05/18/22 montelukast 10 mg tablet 10 mg PO HS #90 tabs 05/18/22 (Singulair) cyclobenzaprine 5 mg tablet 5 mg PO TID PRN back pain #30 tabs 06/14/22 lidocaine 4 % topical patch 1 patch topical DAILY PRN pain #30 06/14/22 ea blood-glucose meter (OneTouch #1 ea 07/13/22 Ultra2 Meter) metoclopramide HCl 5 mg tablet 5 mg PO TID PRN nausea and 08/10/22 (Reglan) vomiting #270 tabs glipizide 5 mg tablet, extended 5 mg PO DAILY #90 tabs 10/06/22 release 24 hr blood sugar diagnostic (OneTouch #200 ea 11/03/22 Ultra Test strips) insulin glargine 100 unit/mL (3 26 unit (0.26 mL) subcut DAILY #15 11/03/22 mL) subcutaneous pen (Basaglar mL KwikPen U-100 Insulin) lancets #200 ea 11/03/22 levalbuterol tartrate 45 2 inh inhalation Q6H PRN shortness 11/10/22 mcg/actuation aerosol inhaler of breath or wheezing #45 grams buspirone 5 mg tablet 5 mg PO BID #180 tabs 12/01/22 fluoxetine 20 mg capsule 20 mg PO DAILY #90 tab-caps 12/01/22 fluoxetine 40 mg capsule 40 mg PO DAILY #90 tab-caps 12/01/22 gabapentin 300 mg capsule 300 mg PO BID #180 caps 12/01/22 semaglutide 1 mg/dose (2 mg/1.5 1 mg (0.75 mL) subcut QWEEK #3 mL 12/01/22 mL) subcutaneous pen injector atorvastatin 10 mg tablet 10 mg PO QPM #90 tabs 12/29/22 cephalexin 500 mg capsule 500 mg PO TID #270 caps 12/29/22 cetirizine 10 mg tablet 10 mg PO DAILY #90 tab-caps 12/29/22 esomeprazole magnesium 40 mg 40 mg PO DAILY #90 tab-caps 12/29/22 capsule,delayed release (Nexium) magnesium oxide 500 mg capsule 500 mg PO DAILY #90 caps 12/29/22 metformin 500 mg tablet 1,000 mg (2 x 500 mg) PO BID #360 12/29/22 tabs acetaminophen 500 mg tablet 1,000 mg (2 x 500 mg) PO Q8H PRN 02/07/23 pain #90 tabs ibuprofen 600 mg tablet 600 mg PO TID PRN pain #60 tabs 02/07/23 omeprazole 20 mg capsule,delayed 20 mg PO DAILY 02/07/23 release oxycodone 5 mg tablet 5 mg PO Q4H PRN #20 tabs 02/07/23 Current Visit Medications: Current Medications Generic Name Dose Route Start Last Admin Trade Name Aggie PRN Reason Stop Dose Admin Acetaminophen 650 mg 02/07/23 08:33 Acetaminophen 325 Mg Tab PO 03/09/23 08:32 Q4H PRN PRN Ringer's Solution 1,000 mls @ 80 mls/hr 02/07/23 06:00 02/07/23 12:34 IV 02/07/23 23:59 80 mls/hr INFUSION BROWN Administration Cefazolin Sodium/Dextrose 2 gm in 50 mls @ 100 mls/hr 02/07/23 06:00 Ancef Duplex IVPB 02/07/23 23:59 PREOP BROWN IV Miscellaneous Supplies 1 each 02/07/23 06:00 Iv Access IV 02/07/23 23:59 DIRECTED BROWN Oxycodone HCl 5 mg 02/07/23 08:33 Oxycodone 5 Mg Tab PO 03/09/23 08:32 Q3H PRN PRN Pain Sodium Chloride 0 ml 02/07/23 06:00 Normal Saline Flush 10 Ml Syr IV 02/07/23 23:59 PRN PRN Sodium Chloride 0 ml 02/07/23 06:00 Normal Saline 10 Ml Vial IJ 02/07/23 23:59 DIRECTED PRN Sterile Water 0 ml 02/07/23 06:00 Water,Injection,Sterile 10 Ml Vial IJ 02/07/23 23:59 DIRECTED PRN PFSH Active Problems Active Problems: Problem Status Onset Code Subacromial bursitis of right shoulder joint M75.51 Biceps tendinitis of right upper extremity M75.21 Pes anserinus bursitis of left knee M70.52 Superior labrum vheltriy-ce-eamzekocs (SLAP) tear of left shoulder S43.432A Partial tear of left rotator cuff M75.112 Tendonitis of left rotator cuff M75.82 Tendinitis of long head of biceps brachii of left shoulder M75.22 Type 2 diabetes mellitus E11.9 Non-alcoholic fatty liver disease K76.0 Asthma J45.909 Right upper lobe pulmonary nodule ~10/2021 Major depressive disorder, recurrent F33.9 Generalized anxiety disorder F41.1 Hyperlipidemia E78.5 Migraine G43.909 Gastroesophageal reflux disease with esophagitis K21.0 At risk for aspiration Z91.89 Degenerative joint disease, shoulder, 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 Degenerative joint disease, shoulder, right M19.011 Right rotator cuff tendonitis M75.81 Carpal tunnel syndrome, right G56.01 Tubular adenoma of colon D12.6 Obesity (BMI 30.0-34.9) E66.9 Medical History Medical History Bilateral nephrolithiasis Paraesophageal hiatal hernia History of kidney stones RENAE (acute kidney injury) Pyloric ulcer associated with Helicobacter pylori Infection of total left knee replacement Incisional hernia Medical History Comments:: Hx of aspiration in the past Surgical History Surgical History S/P recurrent ventral herniorrhaphy 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 Gongora Tobacco Smoking/Tobacco Use Status: Never Passive smoking exposure: Yes Second hand exposure: Yes Alcohol Alcohol Intake: current Alcohol intake frequency: holidays/special occasions only Alcohol type: hard liquor and other Substance Use Substance use: Never Substance use type: does not use Vital Signs and Lab Results Vital Signs Most Recent Vital Signs in EMR: Most Recent Vital Signs Temp Pulse Resp BP Pulse Ox 36.3 C L 85 20 129/82 98 02/07/23 11:44 02/07/23 11:44 02/07/23 11:44 02/07/23 11:44 02/07/23 11:44 Point of Care Results Point of Care Results: Finger Stick Blood Glucose 179 02/07/23 11:44 Lab Results Blood Type / Crossmatch: No Data to Display Complete Blood Count: No Data to Display Complete Metabolic Panel: No Data to Display Liver Function Panel: No Data to Display Coagulation Panel: No Data to Display Cardiac Panel: No Data to Display Arterial Blood Gas: No Data to Display Venous Blood Gas: No Data to Display Pancreas Panel: No Data to Display Thyroid Panel: No Data to Display Infectious Disease: No Data to Display Blood Cultures: No Data to Display Toxicology Panel: No Data to Display Panel: No Data to Display Imaging and Studies Imaging and Studies Study information below may be from another EMR and interpreted by another provider. Please see original notes in EMR for more complete details. Other Study Summary:: 04/14, gastric emptying study: no evidence of delated gastric emptying. 02/10, upper GI: hiatal hernia. Anesthesia Assessment and Plan Anesthesia History Personal History: No History of Anesthesia Complications Family History: No Family History of Anesthesia Complications Exercise Tolerance Exercise Tolerance: Metabolic Equivalents<4 Pertinent Negatives Pertinent Negatives: No Symptoms of GERD Cardiac & Pulmonary Exam Cardiac Exam: Normal S1/S2 Heart Sounds Pulmonary Exam: Clear Bilateral Breath Sounds Implantable Cardiac Device Does patient have a Pacemaker or an ICD?: No Airway Exam Known Difficult Airway: No Mallampati Class: 3 Mouth Opening: Narrow (< 3cm) Thyromental Distance: Less than 3 cm Neck Range of Motion: Limited ROM Neck Circumference: Thick Teeth Condition: Loose or Chipped ASA Classification ASA Score: ASA 3 Emergency Case?: No NPO Status NPO Status: NPO Clears >2 hours, Solids >8 hours Status Status: Not Per Patient Anesthesia Plan Resuscitation Status: Full Code Anesthesia Technique: General Anesthesia Airway Planned: Endotracheal Tube Pain Management: Surgeon and patient request nerve block Monitors Used: Standard Monitors and SedLine
[2023-02-07] MEDS: ceFAZolin 2 GM/50 ML BAG IVPB (14:13)
[2023-02-07] MEDS: Bupivacaine 0.25% Pres-Free 30 ML VIAL (14:14)
[2023-02-07] MEDS: methylPREDNISolone ACETATE 80 MG/ML VIAL (14:15)
--- NOTE | 2023-02-07 14:41 | W.ANESNERVE ---
Nerve Block Single Injection Procedure Date and Time Date Performed: 02/07/23 Procedure Start: 13:40 Location Where Procedure Performed Procedure Location: Day Surgery Unit Reason Performed: Postoperative Analgesia Requesting Provider: Raheel Gongora Timeout Performed Timeout Performed: Yes Monitoring Used ECG, Blood Pressure, SpO2, ETCO2 and See EMR for corresponding vital signs Sterility Sterility: Hand Hygiene, Surgical Cap, Surgical Mask, Sterile Gloves, Eye Protection and Chlorhexidine Sedation Given During Procedure Sedation Given (Indicate Dose Given): Versed IV (Documented in anesthesia record) Dose:: 2mg IVP Patient Mental Status Patient Mental Status: Sedate with meaningful communication Nerve Block 1st Nerve Block: Laterality: Left Block Type: Interscalene Ultrasound Image Saved?: Yes Needle / Catheter Used: 80mm SonoPlex II Local Anesthetic Bolus (Indicate Dose Given): Lidocaine used for local infiltration of skin, Injected in 3-5ml increments after negative blood aspiration, Bupivacaine 0.5% Dose:: 0.5%/10cc (50mg) and Exparel Dose:: 1.33%/10cc (133mg) Additives (Indicate Dose Given): Epinephrine to make 1:200,000 (5mcg/ml) Dose:: 100mcg (5mcg/ml or 1:200,000) Ultrasound: Sterile probe cover and gel used Nerve Stimulator: Not Used Paresthesia: None Procedure Tolerated: No Complications and Patient tolerated well Procedure Outcome: Successful Performed By: Gonzalo Martin
--- NOTE | 2023-02-07 15:31 | W.PM.OP ---
Date of service: 02/07/23 Time of Service: 14:00 Operative Note Operative Note DATE OF PROCEDURE: 02/07/23 PRE-OP DIAGNOSIS: Left Rotator Cuff Tendinits, Subacromial Bursitis, SLAP Tear POST-OP DIAGNOSIS: same PROCEDURE: - Extensive debridement of anterior and posterior glenohumeral joint and rotator cuff - Sub-pectoral biceps tenodesis - Subacromial Debridement SURGEON: Raheel Gongora COLOR STRAINING BAG WASHER: Marilee Coughlin ANESTHESIA TYPE: General LMA/ETT Refer to Anesthesia Record ESTIMATED BLOOD LOSS: 5 PATHOLOGY: none sent COMPLICATIONS: None Patient was transported to: PACU Patient's condition: stable Indications: I have seen Fay in clinic for a painful shoulder. Pathology was confirmed based on MRI and exam findings. Nonoperative measures were exhausted but disability and pain persisted. I discussed shoulder arthroscopy and procedures. I reviewed the risks of the procedures to include, but not limited to, bleeding, infection, pain, stiffness, damage to nerves or vessels, recurrence, hardware failure, blood clot. Despite these risks, the patient elected to proceed. 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 - Rotator Cuff: Some fraying but no jaqueline tear. Notable fraying and tearing withi the rotator interval - No significant spur Procedure Description: Fay was greeted in the preoperative holding area where the correct side was identified and marked. The consent was reviewed with the patient and signed. The history and physical was updated. All questions were answered. She was administered an intrascalene nerve block. Fay was then taken to the operating room. The patient was placed into the supine position on the operating room table. A general anesthetic was administered. Fay was then positioned in the beach chair position. All bony prominences were well padded. The head was placed in a foam heading machine operator in a neutral position. Prophylactic antibiotics in the form of Cefazolin were administered. The left arm/shoulder was then prepped with Chloraprep and draped in a standard fashion with stockinette and shoulder drape. A timeout to confirm correct identity, side and site, procedure, allergies, anesthesia, and medical concerns was performed. The arm was placed into a pneumatic browne, [id number]. The shoulder arthroscopy was then performed. The glenohumeral joint was injected with 20 cc of normal saline with good flow back. A standard posterior portal was made and the joint was entered atraumatically with a blunt arthroscope. Once inside we had good visualization of the structures of the glenohumeral joint. An anterior portal was established with spinal needle localization. A 6.5 mm cannula was inserted. A probe was then used to perform a diagnostic arthroscopy. There is noted to be some diffuse grade II chondromalacia of the superior humeral head with some areas approaching grade 3. There also was some focal grade III chondromalacia of the superior?anterior aspect of the glenoid. Within this region where there was a type IIc superior labral tear as well. The labrum was frayed along its edge from anterior to posterior with thinning of the labrum anteriorly although no true Travis complex.. There were no loose bodies in the inferior pouch. The superior rotator cuff was attached to the tuberosity. The biceps tendon was without tearing. The subscapularis was intact. A biceps tenotomy was performed with electrocautery for later tenodesis. An aggressive debridement was then performed from anterior to posterior of the superior labrum, trimming the edge and removing any frayed or loose tissue. I also then used the shaver to debride the superior surface of the glenoid to encourage some scarring of the superior labrum back down to the glenoid. The biceps tenodesis was then performed. With the arm and some slight external rotation abduction pectoralis major tendon was identified. A 2 cm incision was made overlying the insertion to the humerus. Sharp dissection was carried onto the skin. Blunt dissection was carried down to the fascia the biceps musculature. This was entered with a tenotomy scissors. The biceps groove was palpable and the biceps tendon was palpable. It was withdrawn from the wound using Allis clamp and finger dissection. Once the biceps tendon was out of the arm the biceps groove was prepared using a rasp. A Mitek Lupine anchor was inserted into the biceps groove at the level of the pectoralis major insertion. This was tested to make sure had excellent fixation into the bone. Using a free needle I then placed a locking Krak?w stitch and each side of the biceps tendon using one limb from each suture at the level of the muscular tendinous junction and moving proximally. Excess tendon was then cut. Using the free suture limb I then shuttled the tendon down to the prepared surface of the humerus. It laid flat against the humerus. It was at the level of the pectoralis major tendon. The suture limbs were then tied. The wound was irrigated. The subcutaneous tissue was reapproximated with a 2-0 Vicryl. The arthroscope was then inserted into the subacromial space. The 6.5 mm cannula was placed lateral to the CA ligament. Given that there was no significant tearing of the rotator cuff I went ahead and recessed the CA ligament off the anterolateral corner of the acromion. A complete bursectomy is performed anteriorly, posteriorly, and laterally with electrocautery and shaver. This had excellent exposure of the rotator cuff. The bursal side rotator cuff was without any significant tearing that was appreciated. There was a dense bursal inflammatory tissue. There was no significant anterolateral spur. Using a spinal needle a lateral portal was established. This became the viewing portal. Continue debridement was performed so all bursal tissue was removed. There was also some tearing and fraying within the soft tissue anterior to the anterior edge of the supraspinatus within the rotator interval. This was debrided down opening up the rotator interval. The portal sites were closed with 3-0 Monocryl. The wounds were dressed with 4 x 4's, ABDs, Medipore tape. A sling was applied. The patient tolerated the procedure well and was returned to the PACU in a stable condition suffering no known complication.
--- NOTE | 2023-02-07 18:53 | W.ANESPOSTOP ---
Postoperative Evaluation Date, Time and Location Date Performed: 02/07/23 Time Performed: 17:06 Patient Location: Day Surgery Unit Vital Signs Most Recent Imported Vital Signs: Most Recent Vital Signs Temp Pulse Resp BP Pulse Ox 36.2 C L 67 16 107/67 96 02/07/23 16:30 02/07/23 16:30 02/07/23 16:30 02/07/23 16:30 02/07/23 16:30 Pain Score Most Recent Pain Score: Most Recent Pain Score Pain Level 3 02/07/23 16:30 Assessment Mental Status: Awake (Alert & Oriented to Patient Baseline) Airway and Respiratory Function: Patent airway with normal (patient baseline) respiratory exam Cardiovascular Function: Hemodynamically Stable Hydration Status: Adequately Hydrated Nausea & Vomiting: No Nausea or Vomiting Pain: Pt. Denies Any Pain Peripheral Nerve Block: Regional nerve block not resolved at time of post operative discharge
== END 2023-02-07 17:10 | disposition home or self-care (01) ==
PROVIDERS: PCP Nurse Practitioner Family; Visit Provider Student in an Organized Health Care Education/Training Program
PROC: (CPT 29805; principal; 2023-02-07 15:15)
DX: M75.102 Unspecified rotator cuff tear or rupture of left shoulder, not specified as traumatic (principal); M75.52 Bursitis of left shoulder; M94.212 Chondromalacia, left shoulder
CPT/HCPCS: 23430; 29823; 76942; J0171; J0690; J1040; J1100; J2001; J2250; J2405; J2704

== ENCOUNTER → 2023-02-21 10:56 | Outpatient (BNVA) | payer MEDICARE, SELFPAY | PROVIDERS: PCP Nurse Practitioner Family; Referring Provider Nurse Practitioner Family; Visit Provider Physician Assistant Surgical | DX: J44.89 Other specified chronic obstructive pulmonary disease (principal) | CPT/HCPCS: 99214 ==

== ENCOUNTER → 2023-02-23 09:51 | Outpatient (BNVA) | payer MEDICARE, SELFPAY | PROVIDERS: PCP Nurse Practitioner Family; Referring Provider Nurse Practitioner Family; Visit Provider Student in an Organized Health Care Education/Training Program | DX: S43.432D Superior glenoid labrum lesion of left shoulder, subsequent encounter (principal); X58.XXXD Exposure to other specified factors, subsequent encounter ==

== ENCOUNTER → 2023-03-15 01:12 | Outpatient (CLI) | payer MEDICARE, SELFPAY ==
--- NOTE | 2023-03-15 10:25 | DI.CT_ITS ---
Exam(s) CT CHEST WO EXAM: CT CHEST WO CLINICAL HISTORY: f/u nodule RUL,ASTHMA,J44.89 TECHNIQUE: Imaging Protocol: Axial computed tomography images with coronal and sagittal reformatted images were created and reviewed CONTRAST MATERIAL: Intravenous: Omnipaque 350 Contrast volume:structured data ml. COMPARISON: CT CT CHEST/ABD/PEL W from 12/30/[address] CHEST WO from 04/27/[address] CHEST WO from 11/08/2022 FINDINGS: Pulmonary parenchyma: stable small area of scarring at the posterior right upper lobe. No consolida tion. No dominant measurable mass. No suspicious pulmonary nodules.No interstitial changes visible. No ground-glass infiltrates. Tracheobronchial tree: No bronchiectasis or mucous plugging. Bronchial wall thickening. Mediastinum and Niesha: No dominant adenopathy or fluid collection. Stable hiatal hernia. Pleura: No effusion. No pneumothorax. Heart: The heart is not dilated. No coronary artery calcifications are seen. Aorta: Thoracic aorta non-dilated. No visible atherosclerotic changes. Upper abdomen: No acute findings.. Bones: Mild degenerative changes in the spine. Soft tissues: Unremarkable. IMPRESSION: Stable small area of scarring in the right upper lobe. No acute findings. RADIATION DOSE DELIVERED: 608.54mGy.cm Total DLP DATA REPOSITORY: All CT scans at this facility are submitted to the National Radiology Data Registry (NRDR) Dose Index Registry (DIR) with the [employer] (A[employer]). RADIATION OPTIMIZATION: All CT scans at this facility use at least one of these dose optimization te chniques: automated exposure control; mA and/or kV adjustment per patient size (includes targeted exa ms where dose is matched to clinical indication); or iterative reconstruction.
== END ==
PROVIDERS: PCP Nurse Practitioner Family; Visit Provider Physician Assistant Surgical
DX: J44.89 Other specified chronic obstructive pulmonary disease (principal)
CPT/HCPCS: 71250

== ENCOUNTER → 2023-03-23 09:48 | Outpatient (BNVA) | payer MEDICARE, SELFPAY | PROVIDERS: PCP Nurse Practitioner Family; Visit Provider Student in an Organized Health Care Education/Training Program | DX: S43.432D Superior glenoid labrum lesion of left shoulder, subsequent encounter (principal); X58.XXXD Exposure to other specified factors, subsequent encounter ==

== ENCOUNTER 2023-04-07 02:30 | Outpatient (CLI) | payer MEDICARE, SELFPAY ==
[2023-04-07 10:29] LABS: Abs Immature Grans 0.04 10^3/uL (0.0-0.06); Absolute Basophil Count 0.04 10^3/uL (0.0-0.2); Absolute Eosinophil Count 0.24 10^3/uL (0.0-0.7); Absolute Lymphocyte Count 2.77 10^3/uL (1.2-3.4); Absolute Monocyte Count 1.11 10^3/uL (0.1-0.8); Absolute Neutrophil Count 5.83 10^3/uL (1.2-6.7); Basophils % 0.4; Eosinophils % 2.4; HCT 38.5 % (36.0-46.0); HGB 13.8 g/dL (11.2-15.7); Immature Grans % 0.4; Lymphocytes % 27.6; MCH 34.4 pg (27.0-33.0); MCHC 35.8 % (32.0-36.0); MCV 96 fL (80-95); MPV 9.9 fL (8.0-11.0); Monocytes % 11.1; Neutrophils % 58.1; Platelet Count 370 10^3/uL (130-400); RBC 4.01 10^6/uL (3.93-5.22); RDW 12.9 % (11.7-14.6); RDW-SD 45.2 fL; WBC 10.03 10^3/uL (4.4-10.8)
[2023-04-07 11:02] LABS: Hemoglobin A1C 6.1 % (<5.7)
[2023-04-07 11:45] LABS: ALT 17 U/L (14-59); AST 13 U/L (15-37); Albumin 3.2 g/dL (3.4-5.0); Alkaline Phosphatase 93 U/L (46-116); Anion Gap 14.1 mmol/L (3-11); BUN 7 mg/dL (7-18); Bilirubin, Total 1.1 mg/dL (0.2-1.0); CO2 21.9 mmol/L (21.0-32.0); CREATININE 0.8 mg/dL (0.55-1.02); Calcium 9.6 mg/dL (8.5-10.1); Chloride 106 mmol/L (98-107); Estimated GFR 88.05 (mL/min/1.73m2); Ferritin 313 ng/mL (8-252); Glucose 92 mg/dL (74-106); Potassium 3.4 mmol/L (3.5-5.1); Sodium 142 mmol/L (136-145); Vitamin B12 567 pg/mL (193-986)
[2023-04-07 18:11] LABS: Hepatitis C Ab w Rflx HCV PCR Negative (Negative)
== END 2023-04-07 02:31 | disposition home or self-care (01) ==
LOC: LBO 02:30
PROVIDERS: PCP Nurse Practitioner Family; Visit Provider Nurse Practitioner Family
DX: Z00.00 Encounter for general adult medical examination without abnormal findings (principal); E11.9 Type 2 diabetes mellitus without complications; K21.00 Gastro-esophageal reflux disease with esophagitis, without bleeding
CPT/HCPCS: 36415; 80053; 86803; 82607; 82728; 83036; 85025

== ENCOUNTER → 2023-04-19 10:33 | Outpatient (BNVA) | payer MEDICARE, SELFPAY | PROVIDERS: PCP Nurse Practitioner Family; Referring Provider Nurse Practitioner Family; Visit Provider Student in an Organized Health Care Education/Training Program | DX: Z12.11 Encounter for screening for malignant neoplasm of colon (principal) ==

== ENCOUNTER → 2023-05-08 09:09 | Outpatient (BNVA) | payer MEDICARE, SELFPAY | PROVIDERS: PCP Nurse Practitioner Family; Visit Provider Student in an Organized Health Care Education/Training Program | DX: Z47.89 Encounter for other orthopedic aftercare (principal); M19.012 Primary osteoarthritis, left shoulder; T84.84XA Pain due to internal orthopedic prosthetic devices, implants and grafts, initial encounter ==

== ENCOUNTER 2023-05-15 08:02 | Day surgery (SDC) | payer MEDICARE, SELFPAY ==
--- NOTE | 2023-05-15 06:36 | W.ANESPRE ---
General Info Date of Service Date Performed: 05/15/23 Height: 5 ft 1.5 in Weight: 69.4 kg Body Mass Index (BMI): 28.4 Surgical Procedure: Operation Date: 05/15/23 10:05 Proposed Procedure Side Surgeon talita Rosa MD Meds Allergies and Home Medications Allergies Allergy/AdvReac Type Severity Reaction Status Date / Time latex Allergy Severe HIVES, Verified 05/15/23 08:28 ITCHING erythromycin base AdvReac Intermediate NAUSEA, Verified 05/15/23 08:28 VOMITING chlorhexidine AdvReac Mild Itching Verified 05/15/23 08:28 [From Hibiclens] codeine AdvReac NAUSEA, Verified 05/15/23 08:28 VOMITING Dermabond Allergy Intermediate Skin Rash Uncoded 05/15/23 08:28 Glue Allergy Mild Rash and Uncoded 05/15/23 08:28 blisters Home Medication Medication Instructions Recorded cholecalciferol (vitamin D3) 50 2,000 unit PO DAILY 05/19/15 mcg (2,000 unit) capsule (Vitamin D3) nystatin 100,000 unit/gram topical 1 applic topical BID #30 grams 02/02/22 cream fluticasone propionate 230 2 puff inhalation BID #12 grams 03/21/22 mcg-salmeterol 21 mcg/actuation HFA inhaler (Advair HFA) multivitamin (One-A-Day Essential 1 tab PO DAILY 03/21/22 tablet) triamcinolone acetonide 0.025 % 1 applic topical BID #15 grams 03/24/22 topical cream montelukast 10 mg tablet 10 mg PO HS #90 tabs 05/18/22 (Singulair) lidocaine 4 % topical patch 1 patch topical DAILY PRN pain #30 06/14/22 ea blood-glucose meter (OneTouch #1 ea 07/13/22 Ultra2 Meter) metoclopramide HCl 5 mg tablet 5 mg PO TID PRN nausea and 08/10/22 (Reglan) vomiting #270 tabs blood sugar diagnostic (OneTouch #200 ea 11/03/22 Ultra Test strips) lancets #200 ea 11/03/22 levalbuterol tartrate 45 2 inh inhalation Q6H PRN shortness 11/10/22 mcg/actuation aerosol inhaler of breath or wheezing #45 grams buspirone 5 mg tablet 5 mg PO BID #180 tabs 12/01/22 fluoxetine 20 mg capsule 20 mg PO DAILY #90 tab-caps 12/01/22 fluoxetine 40 mg capsule 40 mg PO DAILY #90 tab-caps 12/01/22 gabapentin 300 mg capsule 300 mg PO BID #180 caps 12/01/22 atorvastatin 10 mg tablet 10 mg PO QPM #90 tabs 12/29/22 cephalexin 500 mg capsule 500 mg PO TID #270 caps 12/29/22 esomeprazole magnesium 40 mg 40 mg PO DAILY #90 tab-caps 12/29/22 capsule,delayed release (Nexium) magnesium oxide 500 mg capsule 500 mg PO DAILY #90 caps 12/29/22 metformin 500 mg tablet 1,000 mg (2 x 500 mg) PO BID #360 12/29/22 tabs pen needle, diabetic 32 gauge x #200 ea 02/09/23 (BD Chantel 2nd Gen Pen Needle) semaglutide 2 mg/dose (8 mg/3 mL) 2 mg (0.75 mL) subcut QWEEK #9 mL 02/18/23 subcutaneous pen injector albuterol sulfate 2.5 mg/3 mL 2.5 mg (3 mL) inhalation Q6H PRN 02/22/23 (0.083 %) solution for nebulization shortness of breath or wheezing #360 mL cyclobenzaprine 5 mg tablet 5 mg PO TID PRN back pain #30 tabs 03/20/23 fexofenadine 180 mg tablet 180 mg PO DAILY #90 tabs 03/20/23 empagliflozin 25 mg tablet 25 mg PO DAILY #90 tabs 04/10/23 ferrous sulfate 325 mg (65 mg 325 mg PO Q OTHER DAY #55 tabs 04/10/23 iron) tablet acetaminophen 500 mg tablet 1,000 mg (2 x 500 mg) PO Q8H PRN 04/12/23 pain #90 tabs bisacodyl 5 mg tablet,delayed 5 mg PO ONCE colonscopy bowel prep 04/19/23 release (Dulcolax (bisacodyl)) #4 tabs polyethylene glycol 3350 17 238 g PO ONCE colonoscopy prep 04/19/23 gram/dose oral powder #238 grams cetirizine 10 mg capsule 10 mg PO DAILY PRN 05/12/23 insulin glargine 100 unit/mL (3 18 unit subcut DAILY 05/12/23 mL) subcutaneous pen (Basaglar KwikPen U-100 Insulin) Current Visit Medications: Current Medications Generic Name Dose Route Start Last Admin Trade Name Aggie PRN Reason Stop Dose Admin Ringer's Solution 1,000 mls @ 80 mls/hr 05/15/23 06:00 IV 06/11/23 23:59 INFUSION BROWN IV Miscellaneous Supplies 1 each 05/15/23 06:00 Iv Access IV 06/11/23 23:59 DIRECTED BROWN Sodium Chloride 0 ml 05/15/23 06:00 Normal Saline Flush 10 Ml Syr IV 06/11/23 23:59 PRN PRN Sodium Chloride 0 ml 05/15/23 06:00 Normal Saline 10 Ml Vial IJ 06/11/23 23:59 DIRECTED PRN Sterile Water 0 ml 05/15/23 06:00 Water,Injection,Sterile 10 Ml Vial IJ 06/11/23 23:59 DIRECTED PRN PFSH Active Problems Active Problems: Problem Status Onset Code Type 2 diabetes mellitus E11.9 Non-alcoholic fatty liver disease K76.0 Hyperlipidemia E78.5 Asthma-COPD overlap syndrome J44.89 Right upper lobe pulmonary nodule ~10/2021 Major depressive disorder, recurrent F33.9 Generalized anxiety disorder F41.1 Migraine G43.909 Gastroesophageal reflux disease with esophagitis K21.0 At risk for aspiration Z91.89 Degenerative joint disease, shoulder, 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 Degenerative joint disease, shoulder, right M19.011 Tubular adenoma of colon D12.6 Obesity (BMI 30.0-34.9) E66.9 Medical History Medical History Bilateral nephrolithiasis Paraesophageal hiatal hernia History of kidney stones RENAE (acute kidney injury) Pyloric ulcer associated with Helicobacter pylori 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 Incisional hernia Medical History Comments:: Hx of aspiration in the past Surgical History Surgical History History of carpal tunnel surgery of right wrist (04/05/22) History of arthroscopy of left shoulder (02/07/23) History of arthroscopy of right shoulder (03/02/22) S/P recurrent ventral herniorrhaphy 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 Gongora Tobacco Smoking/Tobacco Use Status: Never Passive smoking exposure: Yes Second hand exposure: Yes Alcohol Alcohol Intake: current Alcohol intake frequency: holidays/special occasions only Alcohol type: hard liquor and other Substance Use Substance use: Never Substance use type: does not use Vital Signs and Lab Results Vital Signs Most Recent Vital Signs in EMR: Temp Pulse Resp BP Pulse Ox 36.4 C L 78 16 118/87 99 05/15/23 08:30 05/15/23 08:30 05/15/23 08:30 05/15/23 08:30 05/15/23 08:30 Lab Results Blood Type / Crossmatch: No Data to Display Complete Blood Count: No Data to Display Complete Metabolic Panel: No Data to Display Liver Function Panel: No Data to Display Coagulation Panel: No Data to Display Cardiac Panel: No Data to Display Arterial Blood Gas: No Data to Display Venous Blood Gas: No Data to Display Pancreas Panel: No Data to Display Thyroid Panel: No Data to Display Infectious Disease: No Data to Display Blood Cultures: No Data to Display Toxicology Panel: No Data to Display Panel: No Data to Display Imaging and Studies Imaging and Studies Study information below may be from another EMR and interpreted by another provider. Please see original notes in EMR for more complete details. Other Study Summary:: 04/14, gastric emptying study: no evidence of delated gastric emptying. 02/10, upper GI: hiatal hernia. Anesthesia Assessment and Plan Anesthesia History Personal History: No History of Anesthesia Complications Family History: No Family History of Anesthesia Complications Exercise Tolerance Exercise Tolerance: Metabolic Equivalents<4 Cardiac & Pulmonary Exam Cardiac Exam: Normal S1/S2 Heart Sounds Pulmonary Exam: Clear Bilateral Breath Sounds Implantable Cardiac Device Does patient have a Pacemaker or an ICD?: No Airway Exam Known Difficult Airway: No Mallampati Class: 3 Mouth Opening: Narrow (< 3cm) Thyromental Distance: Less than 3 cm Neck Range of Motion: Limited ROM Neck Circumference: Thick Teeth Condition: Loose or Chipped ASA Classification ASA Score: ASA 3 Emergency Case?: No NPO Status NPO Status: NPO Clears >2 hours, Solids >8 hours Status Status: History of Hysterectomy Anesthesia Plan Resuscitation Status: Full Code Anesthesia Technique: MAC Anesthesia Airway Planned: Natural Airway Monitors Used: Standard Monitors Preoperative Comments:: 51 yo female for colo Sig PMHx: uncontrolled DM, fatty liver, depression/anxiety, GERD, asthma- daily inhaler use, failed compa. Previous Anes: many anesthetics with us. History of green fluid around ETT cuff on extubation on many occasions. Has had a repeat compa and she states that she has been doing much better, but still afraid to attempt to lay flat. - previous Glez 2/Mac 3/Mac/4/glide 3 grade 1. - has had colo in the past with dexmed, midaz, ketamine without issues. Discussed that her last colo was midz/ketamine/dexmed and that we would likely stick with that plan with a GAETT as a backup.
[2023-05-15 08:30] VITALS: BP 118/87; PULSE 78; RESP 16; TEMP 36.4; O2SAT 99
[2023-05-15] MEDS: Lactated Ringers 1,000 ML 80 ML IV (09:06)
[2023-05-15 09:28] VITALS: BMI 28.4
--- NOTE | 2023-05-15 09:46 | W.COLOREPORT ---
Date of service: 05/15/23 Time of Service: 09:46 Colonoscopy Report Procedure Description: PROCEDURES PERFORMED: 1. Colonoscopy PREOPERATIVE DIAGNOSIS: Surveillance colonoscopy POSTOPERATIVE DIAGNOSIS: Normal colon, normal rectum SURGEON: Roro Rosa MD INDICATION FOR PROCEDURE: The patient is a 52-year-old woman with no family history of colon cancer. She had a small adenomatous polyp removed on the last colonoscopy 3 years ago. She was told to have a 3-year follow-up. She has no symptoms. FINDINGS: The terminal ileum was normal. There is no inflammation seen anywhere. No polyps were found. There is no diverticular disease that was obvious. No significant hemorrhoid disease. SURVEILLANCE interval/FOLLOW-UP: 10 years SPECIMENS: None EBL: Minimal COMPLICATIONS: None QUALITY of prep: Excellent Procedure in detail: The patient gave written consent and was in agreement with the indications, the potential risks as well as the benefits of the procedure. They were taken to the endoscopy suite and laid in the left lateral decubitus position. A timeout was performed and anesthesia was administered which was tolerated well. I started the procedure. Digital rectal and visual examination was performed and grossly within normal limits. A well-lubricated flexible colonoscope was then introduced and passed without any notable difficulty all the way to the cecum identified by the ileocecal valve and the appendiceal orifice. The terminal ileum was briefly intubated and looked normal. The scope was then slowly withdrawn with the above-noted findings. The patient tolerated the procedure well and was taken to the PACU in hemodynamically stable condition.
--- NOTE | 2023-05-15 09:49 | W.PM.DSUDISC ---
Date of service: 05/15/23 Time of Service: 09:49 Discharge Plan Disposition Patient Disposition: Home Condition: Good Discharge Details Attending Provider: Ward Rosa Primary Care Provider: Renetta Bonner Home Meds and New Rx's Prescriptions: No Action multivitamin [One-A-Day Essential] Tablet 1 tab PO DAILY fluticasone propion-salmeterol [Advair HFA] 230-21 mcg/actuation HFA aerosol inhaler 2 puff inhalation BID Qty: 12 12RF Rx Instructions: Rinse mouth after use triamcinolone acetonide 0.025 % cream 1 applic topical BID Qty: 15 0RF (DME) blood-glucose meter [OneTouch Ultra2 Meter] Misc See Rx Instructions .Route Qty: 1 3RF Rx Instructions: Check blood sugar twice a day lidocaine 4 % adhesive patch,medicated 1 patch topical DAILY PRN (Reason: pain) Qty: 30 0RF Rx Instructions: apply lidocaine patch daily as directed cyclobenzaprine 5 mg tablet 5 mg PO TID PRN (Reason: back pain) Qty: 30 0RF Rx Instructions: Take 1 tablet by mouth three times a day as needed for back pain fexofenadine 180 mg tablet 180 mg PO DAILY Qty: 90 3RF Patient Comments: Pt has not started yet. montelukast [Singulair] 10 mg tablet 10 mg PO HS Qty: 90 3RF (DME) OneTouch Ultra Test Strip 1 ea Miscellaneous DAILY Qty: 200 3RF Rx Instructions: Check blood sugar twice a day (DME) lancets Misc 1 ea Miscellaneous DAILY Qty: 200 3RF Rx Instructions: Check blood sugar twice a day fluoxetine 40 mg capsule 40 mg PO DAILY Qty: 90 3RF Rx Instructions: Take with 20mg cap for a total of 60mg gabapentin 300 mg capsule 300 mg PO BID Qty: 180 3RF buspirone 5 mg tablet 5 mg PO BID Qty: 180 3RF fluoxetine 20 mg capsule 20 mg PO DAILY Qty: 90 3RF Rx Instructions: Take with 40mg cap for a total of 60mg atorvastatin 10 mg tablet 10 mg PO QPM Qty: 90 3RF esomeprazole magnesium [Nexium] 40 mg capsule,delayed release(DR/EC) 40 mg PO DAILY Qty: 90 3RF Patient Comments: pt. states it is omeprazole metformin 500 mg tablet 1,000 mg PO BID Qty: 360 3RF Rx Instructions: Take 2 tablet in the morning and evening magnesium oxide 500 mg capsule 500 mg PO DAILY Qty: 90 3RF cephalexin 500 mg capsule 500 mg PO TID Qty: 270 3RF polyethylene glycol 3350 17 gram/dose powder 238 g PO ONCE Qty: 238 0RF Rx Instructions: take per colonoscopy instructions bisacodyl [Dulcolax (bisacodyl)] 5 mg tablet,delayed release (DR/EC) 5 mg PO ONCE Qty: 4 0RF Rx Instructions: take per colonoscopy instructions cholecalciferol (vitamin D3) [Vitamin D3] 2,000 UNIT capsule 2,000 unit PO DAILY nystatin 100,000 unit/gram cream 1 applic topical BID Qty: 30 0RF metoclopramide HCl [Reglan] 5 mg tablet 5 mg PO TID PRN (Reason: nausea and vomiting) Qty: 270 3RF levalbuterol tartrate 45 mcg/actuation HFA aerosol inhaler 2 inh inhalation Q6H PRN (Reason: shortness of breath or wheezing) Qty: 45 4RF (DME) pen needle, diabetic [BD Chantel 2nd Gen Pen Needle] 32 gauge x 5/32 needle See Rx Instructions .ROUTE .COMPLEX Qty: 200 3RF Dose Instruction: USE WITH INSULIN TWO TIMES A DAY Rx Instructions: USE WITH INSULIN TWO TIMES A DAY semaglutide 2 mg/dose (8 mg/3 mL) pen injector 2 mg subcut QWEEK Qty: 9 3RF albuterol sulfate 2.5 mg /3 mL (0.083 %) solution for nebulization 2.5 mg Inhalation Q6H PRN (Reason: shortness of breath or wheezing) Qty: 360 3RF Patient Comments: 07/03/17 Per pt uses every night.jw ferrous sulfate 325 mg (65 mg iron) tablet 325 mg PO Q OTHER DAY Qty: 55 3RF empagliflozin 25 mg tablet 25 mg PO DAILY Qty: 90 3RF Rx Instructions: Take 1 tablet daily acetaminophen 500 mg tablet 1,000 mg PO Q8H PRN (Reason: pain) Qty: 90 0RF Rx Instructions: Take two tablets up to every 8 hours as needed for pain cetirizine 10 mg capsule 10 mg PO DAILY PRN insulin glargine [Basaglar KwikPen U-100 Insulin] 100 unit/mL (3 mL) insulin pen 18 unit subcut DAILY Discharge Instructions Additional Instructions: FINDINGS: Fay, no new polyps were found today. Everything looks really healthy inside of you. No inflammation anywhere. Your next colonoscopy can be 10 years from now! Stand Alone Forms: Colonoscopy Post Instructions Activity:: Activity as Tolerated Diet:: As Tolerated
[2023-05-15 10:21] VITALS: BP 95/75; PULSE 74; RESP 16; TEMP 36.7; O2SAT 97
[2023-05-15 10:28] VITALS: BP 98/73; PULSE 84; RESP 16; TEMP 36.7; O2SAT 97
[2023-05-15 10:35] VITALS: BP 97/70; PULSE 79; RESP 16; TEMP 36.6; O2SAT 98
--- NOTE | 2023-05-15 10:54 | W.ANESPOSTOP ---
Postoperative Evaluation Date, Time and Location Date Performed: 05/15/23 Time Performed: 10:54 Patient Location: Day Surgery Unit Vital Signs Most Recent Imported Vital Signs: Most Recent Vital Signs Temp Pulse Resp BP Pulse Ox 36.6 C 79 16 97/70 L 98 05/15/23 10:35 05/15/23 10:35 05/15/23 10:35 05/15/23 10:35 05/15/23 10:35 Pain Score Most Recent Pain Score: Most Recent Pain Score Pain Level 0 05/15/23 10:35 Assessment Mental Status: Awake (Alert & Oriented to Patient Baseline) Airway and Respiratory Function: Patent airway with normal (patient baseline) respiratory exam Cardiovascular Function: Hemodynamically Stable Hydration Status: Adequately Hydrated Nausea & Vomiting: No Nausea or Vomiting Pain: Pt. Denies Any Pain Peripheral Nerve Block: Patient did not receive a nerve block
== END 2023-05-15 10:58 | disposition home or self-care (01) ==
PROVIDERS: PCP Nurse Practitioner Family; Visit Provider Student in an Organized Health Care Education/Training Program
PROC: 0DJD8ZZ Inspection of Lower Intestinal Tract, Via Natural or Artificial Opening Endoscopic (ICD-10-PCS; CPT 45378; principal; 2023-05-15 10:00)
DX: Z12.11 Encounter for screening for malignant neoplasm of colon (principal); K21.00 Gastro-esophageal reflux disease with esophagitis, without bleeding; J44.89 Other specified chronic obstructive pulmonary disease; E11.9 Type 2 diabetes mellitus without complications; E66.9 Obesity, unspecified; F41.1 Generalized anxiety disorder; K76.0 Fatty (change of) liver, not elsewhere classified; Z86.010 Personal history of colon polyps
CPT/HCPCS: G0105; 00123; J2250; J2704

== ENCOUNTER 2023-05-30 10:30 | Day surgery (SDC) | payer MEDICARE, SELFPAY ==
[2023-05-30 10:48] VITALS: BP 119/81; PULSE 75; RESP 16; TEMP 36.1; O2SAT 100
[2023-05-30] MEDS: Acetaminophen 500 MG TAB 1000 MG PO (11:08)
[2023-05-30] MEDS: Celecoxib 200 MG CAP 400 MG PO (11:09)
[2023-05-30] MEDS: Lactated Ringers 1,000 ML 80 ML IV (11:21)
--- NOTE | 2023-05-30 11:44 | W.ANESPRE ---
General Info Date of Service Date Performed: 05/30/23 Height: 5 ft 1.5 in Weight: 66.8 kg Body Mass Index (BMI): 27.3 Surgical Procedure: Operation Date: 05/30/23 14:55 Proposed Procedure Side Surgeon p Knee Deep Suture Removal Left Raheel Gongora MD Meds Allergies and Home Medications Allergies Allergy/AdvReac Type Severity Reaction Status Date / Time latex Allergy Severe HIVES, Verified 05/30/23 11:04 ITCHING erythromycin base AdvReac Intermediate NAUSEA, Verified 05/30/23 11:04 VOMITING chlorhexidine AdvReac Mild Itching Verified 05/30/23 11:04 [From Hibiclens] codeine AdvReac NAUSEA, Verified 05/30/23 11:04 VOMITING Dermabond Allergy Intermediate Skin Rash Uncoded 05/30/23 11:04 Glue Allergy Mild Rash and Uncoded 05/30/23 11:04 blisters Home Medication Medication Instructions Recorded cholecalciferol (vitamin D3) 50 2,000 unit PO DAILY 05/19/15 mcg (2,000 unit) capsule (Vitamin D3) nystatin 100,000 unit/gram topical 1 applic topical BID #30 grams 02/02/22 cream fluticasone propionate 230 2 puff inhalation BID #12 grams 03/21/22 mcg-salmeterol 21 mcg/actuation HFA inhaler (Advair HFA) multivitamin (One-A-Day Essential 1 tab PO DAILY 03/21/22 tablet) triamcinolone acetonide 0.025 % 1 applic topical BID #15 grams 03/24/22 topical cream montelukast 10 mg tablet 10 mg PO HS #90 tabs 05/18/22 (Singulair) lidocaine 4 % topical patch 1 patch topical DAILY PRN pain #30 06/14/22 ea blood-glucose meter (OneTouch #1 ea 07/13/22 Ultra2 Meter) metoclopramide HCl 5 mg tablet 5 mg PO TID PRN nausea and 08/10/22 (Reglan) vomiting #270 tabs blood sugar diagnostic (OneTouch #200 ea 11/03/22 Ultra Test strips) lancets #200 ea 11/03/22 levalbuterol tartrate 45 2 inh inhalation Q6H PRN shortness 11/10/22 mcg/actuation aerosol inhaler of breath or wheezing #45 grams buspirone 5 mg tablet 5 mg PO BID #180 tabs 12/01/22 fluoxetine 20 mg capsule 20 mg PO DAILY #90 tab-caps 12/01/22 fluoxetine 40 mg capsule 40 mg PO DAILY #90 tab-caps 12/01/22 gabapentin 300 mg capsule 300 mg PO BID #180 caps 12/01/22 atorvastatin 10 mg tablet 10 mg PO QPM #90 tabs 12/29/22 cephalexin 500 mg capsule 500 mg PO TID #270 caps 12/29/22 esomeprazole magnesium 40 mg 40 mg PO DAILY #90 tab-caps 12/29/22 capsule,delayed release (Nexium) magnesium oxide 500 mg capsule 500 mg PO DAILY #90 caps 12/29/22 metformin 500 mg tablet 1,000 mg (2 x 500 mg) PO BID #360 12/29/22 tabs pen needle, diabetic 32 gauge x #200 ea 02/09/23 (BD Chantel 2nd Gen Pen Needle) semaglutide 2 mg/dose (8 mg/3 mL) 2 mg (0.75 mL) subcut QWEEK #9 mL 02/18/23 subcutaneous pen injector albuterol sulfate 2.5 mg/3 mL 2.5 mg (3 mL) inhalation Q6H PRN 02/22/23 (0.083 %) solution for nebulization shortness of breath or wheezing #360 mL fexofenadine 180 mg tablet 180 mg PO DAILY #90 tabs 03/20/23 empagliflozin 25 mg tablet 25 mg PO DAILY #90 tabs 04/10/23 ferrous sulfate 325 mg (65 mg 325 mg PO Q OTHER DAY #55 tabs 04/10/23 iron) tablet acetaminophen 500 mg tablet 1,000 mg (2 x 500 mg) PO Q8H PRN 04/12/23 pain #90 tabs bisacodyl 5 mg tablet,delayed 5 mg PO ONCE colonscopy bowel prep 04/19/23 release (Dulcolax (bisacodyl)) #4 tabs polyethylene glycol 3350 17 238 g PO ONCE colonoscopy prep 04/19/23 gram/dose oral powder #238 grams cetirizine 10 mg capsule 10 mg PO DAILY PRN 05/12/23 insulin glargine 100 unit/mL (3 18 unit subcut DAILY 05/12/23 mL) subcutaneous pen (Damienar KwikPen U-100 Insulin) cyclobenzaprine 5 mg tablet 5 mg PO TID PRN back pain #30 tabs 05/17/23 Current Visit Medications: Current Medications Generic Name Dose Route Start Last Admin Trade Name Aggie PRN Reason Stop Dose Admin Acetaminophen 1,000 mg 05/30/23 06:00 05/30/23 11:08 Acetaminophen 500 Mg Tab PO 06/29/23 05:59 1,000 mg PREOP BROWN Administration Celecoxib 400 mg 05/30/23 06:00 05/30/23 11:09 Celecoxib 200 Mg Cap PO 06/29/23 05:59 400 mg PREOP BROWN Administration Ringer's Solution 1,000 mls @ 80 mls/hr 05/30/23 06:00 05/30/23 11:21 IV 06/28/23 23:59 80 mls/hr INFUSION BROWN Administration Cefazolin Sodium/Dextrose 2 gm in 50 mls @ 100 mls/hr 05/30/23 06:00 Ancef Duplex IVPB 06/28/23 23:59 PREOP BROWN IV Miscellaneous Supplies 1 each 05/30/23 06:00 Iv Access IV 06/28/23 23:59 DIRECTED BROWN Sodium Chloride 0 ml 05/30/23 06:00 Normal Saline Flush 10 Ml Syr IV 06/28/23 23:59 PRN PRN Sodium Chloride 0 ml 05/30/23 06:00 Normal Saline 10 Ml Vial IJ 06/28/23 23:59 DIRECTED PRN Sterile Water 0 ml 05/30/23 06:00 Water,Injection,Sterile 10 Ml Vial IJ 06/28/23 23:59 DIRECTED PRN PFSH Active Problems Active Problems: Problem Status Onset Code Type 2 diabetes mellitus E11.9 Non-alcoholic fatty liver disease K76.0 Hyperlipidemia E78.5 Asthma-COPD overlap syndrome J44.89 Right upper lobe pulmonary nodule ~10/2021 Major depressive disorder, recurrent F33.9 Generalized anxiety disorder F41.1 Migraine G43.909 Gastroesophageal reflux disease with esophagitis K21.0 At risk for aspiration Z91.89 Degenerative joint disease, shoulder, 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 Degenerative joint disease, shoulder, right M19.011 Tubular adenoma of colon D12.6 Obesity (BMI 30.0-34.9) E66.9 Medical History Medical History Bilateral nephrolithiasis Paraesophageal hiatal hernia History of kidney stones RENAE (acute kidney injury) Pyloric ulcer associated with Helicobacter pylori 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 Incisional hernia Medical History Comments:: Hx of aspiration in the past Surgical History Surgical History History of colonoscopy (~04/2023) History of carpal tunnel surgery of right wrist (04/05/22) History of arthroscopy of left shoulder (02/07/23) History of arthroscopy of right shoulder (03/02/22) S/P recurrent ventral herniorrhaphy 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 Gongora Tobacco Smoking/Tobacco Use Status: Never Passive smoking exposure: Yes Second hand exposure: Yes Alcohol Alcohol Intake: current Alcohol intake frequency: holidays/special occasions only Alcohol type: hard liquor and other Substance Use Substance use: Never Substance use type: does not use Vital Signs and Lab Results Vital Signs Most Recent Vital Signs in EMR: Most Recent Vital Signs Temp Pulse Resp BP Pulse Ox 36.1 C L 75 16 119/81 100 05/30/23 10:48 05/30/23 10:48 05/30/23 10:48 05/30/23 10:48 05/30/23 10:48 Point of Care Results Point of Care Results: Finger Stick Blood Glucose 95 05/30/23 10:55 Lab Results Blood Type / Crossmatch: No Data to Display Complete Blood Count: No Data to Display Complete Metabolic Panel: No Data to Display Liver Function Panel: No Data to Display Coagulation Panel: No Data to Display Cardiac Panel: No Data to Display Arterial Blood Gas: No Data to Display Venous Blood Gas: No Data to Display Pancreas Panel: No Data to Display Thyroid Panel: No Data to Display Infectious Disease: No Data to Display Blood Cultures: No Data to Display Toxicology Panel: No Data to Display Panel: No Data to Display Imaging and Studies Imaging and Studies Study information below may be from another EMR and interpreted by another provider. Please see original notes in EMR for more complete details. Other Study Summary:: 04/14, gastric emptying study: no evidence of delated gastric emptying. 02/10, upper GI: hiatal hernia. Anesthesia Assessment and Plan Anesthesia History Personal History: No History of Anesthesia Complications Family History: No Family History of Anesthesia Complications Exercise Tolerance Exercise Tolerance: Metabolic Equivalents<4 Pertinent Negatives Pertinent Negatives: No Symptoms of GERD, No Major Cardiovascular Symptoms or Complaints and No Major Pulmonary Symptoms or Complaints Cardiac & Pulmonary Exam Cardiac Exam: Normal S1/S2 Heart Sounds Pulmonary Exam: Clear Bilateral Breath Sounds Implantable Cardiac Device Does patient have a Pacemaker or an ICD?: No Airway Exam Known Difficult Airway: No Mallampati Class: 3 Mouth Opening: Narrow (< 3cm) Thyromental Distance: Less than 3 cm Neck Range of Motion: Limited ROM Neck Circumference: Normal Teeth Condition: Loose or Chipped (some broken molars, none loose per patient) ASA Classification ASA Score: ASA 3 Emergency Case?: No NPO Status NPO Status: NPO Clears >2 hours, Solids >8 hours Status Status: History of Hysterectomy Anesthesia Plan Resuscitation Status: Full Code Anesthesia Technique: General Anesthesia Airway Planned: Natural Airway Monitors Used: Standard Monitors
[2023-05-30 11:53] VITALS: BMI 27.3
--- NOTE | 2023-05-30 13:17 | W.PM.DSUDISC ---
Date of service: 05/30/23 Time of Service: 13:17 Discharge Plan Disposition Patient Disposition: Home Condition: Good Discharge Details Reason For Visit: Suture Removal L Knee Attending Provider: Raheel Gongora Primary Care Provider: Renetta Bonner Home Meds and New Rx's Prescriptions: New acetaminophen 500 mg tablet 1,000 mg PO TID Qty: 90 0RF ibuprofen 600 mg tablet 600 mg PO TID PRN (Reason: pain) Qty: 90 0RF oxycodone 5 mg tablet 5 mg PO Q8H MDD 15mg PRN (Reason: pain) Qty: 10 0RF Continued multivitamin [One-A-Day Essential] Tablet 1 tab PO DAILY fluticasone propion-salmeterol [Advair HFA] 230-21 mcg/actuation HFA aerosol inhaler 2 puff inhalation BID Qty: 12 12RF Rx Instructions: Rinse mouth after use triamcinolone acetonide 0.025 % cream 1 applic topical BID Qty: 15 0RF (DME) blood-glucose meter [Prax[employer] Engineering TechnologiesTouch Ultra2 Meter] Misc See Rx Instructions .Route Qty: 1 3RF Rx Instructions: Check blood sugar twice a day lidocaine 4 % adhesive patch,medicated 1 patch topical DAILY PRN (Reason: pain) Qty: 30 0RF Rx Instructions: apply lidocaine patch daily as directed fexofenadine 180 mg tablet 180 mg PO DAILY Qty: 90 3RF Patient Comments: Pt has not started yet. montelukast [Singulair] 10 mg tablet 10 mg PO HS Qty: 90 3RF (DME) [employer]Touch Ultra Test Strip 1 ea Miscellaneous DAILY Qty: 200 3RF Rx Instructions: Check blood sugar twice a day (DME) lancets Misc 1 ea Miscellaneous DAILY Qty: 200 3RF Rx Instructions: Check blood sugar twice a day fluoxetine 40 mg capsule 40 mg PO DAILY Qty: 90 3RF Rx Instructions: Take with 20mg cap for a total of 60mg gabapentin 300 mg capsule 300 mg PO BID Qty: 180 3RF buspirone 5 mg tablet 5 mg PO BID Qty: 180 3RF fluoxetine 20 mg capsule 20 mg PO DAILY Qty: 90 3RF Rx Instructions: Take with 40mg cap for a total of 60mg atorvastatin 10 mg tablet 10 mg PO QPM Qty: 90 3RF esomeprazole magnesium [Nexium] 40 mg capsule,delayed release(DR/EC) 40 mg PO DAILY Qty: 90 3RF Patient Comments: pt. states it is omeprazole metformin 500 mg tablet 1,000 mg PO BID Qty: 360 3RF Rx Instructions: Take 2 tablet in the morning and evening magnesium oxide 500 mg capsule 500 mg PO DAILY Qty: 90 3RF cephalexin 500 mg capsule 500 mg PO TID Qty: 270 3RF polyethylene glycol 3350 17 gram/dose powder 238 g PO ONCE Qty: 238 0RF Rx Instructions: take per colonoscopy instructions bisacodyl [Dulcolax (bisacodyl)] 5 mg tablet,delayed release (DR/EC) 5 mg PO ONCE Qty: 4 0RF Rx Instructions: take per colonoscopy instructions cholecalciferol (vitamin D3) [Vitamin D3] 2,000 UNIT capsule 2,000 unit PO DAILY nystatin 100,000 unit/gram cream 1 applic topical BID Qty: 30 0RF metoclopramide HCl [Reglan] 5 mg tablet 5 mg PO TID PRN (Reason: nausea and vomiting) Qty: 270 3RF levalbuterol tartrate 45 mcg/actuation HFA aerosol inhaler 2 inh inhalation Q6H PRN (Reason: shortness of breath or wheezing) Qty: 45 4RF (DME) pen needle, diabetic [BD Chantel 2nd Gen Pen Needle] 32 gauge x 5/32 needle See Rx Instructions .ROUTE .COMPLEX Qty: 200 3RF Dose Instruction: USE WITH INSULIN TWO TIMES A DAY Rx Instructions: USE WITH INSULIN TWO TIMES A DAY semaglutide 2 mg/dose (8 mg/3 mL) pen injector 2 mg subcut QWEEK Qty: 9 3RF albuterol sulfate 2.5 mg /3 mL (0.083 %) solution for nebulization 2.5 mg Inhalation Q6H PRN (Reason: shortness of breath or wheezing) Qty: 360 3RF Patient Comments: 07/03/17 Per pt uses every night.jw ferrous sulfate 325 mg (65 mg iron) tablet 325 mg PO Q OTHER DAY Qty: 55 3RF empagliflozin 25 mg tablet 25 mg PO DAILY Qty: 90 3RF Rx Instructions: Take 1 tablet daily cyclobenzaprine 5 mg tablet 5 mg PO TID PRN (Reason: back pain) Qty: 30 0RF Rx Instructions: Take 1 tablet by mouth three times a day as needed for back pain cetirizine 10 mg capsule 10 mg PO DAILY PRN insulin glargine [Basaglar KwikPen U-100 Insulin] 100 unit/mL (3 mL) insulin pen 18 unit subcut DAILY Discontinued acetaminophen 500 mg tablet 1,000 mg PO Q8H PRN (Reason: pain) Qty: 90 0RF Rx Instructions: Take two tablets up to every 8 hours as needed for pain Discharge Instructions Additional Instructions: Knee Manipulation Discharge Instructions Activity: You should begin moving as soon as possible. You may bear weight as tolerated, using crutches only for support/comfort. You should apply ice to help with swelling and elevate when possible (especially in the first few days). Dressings: The CHICHO bandage may come down after 48 hours. You may shower after 72 hours but leave the other dressing on until follow-up. Suggest using cling wrap to keep the dressing dry in the shower. Medications: - Recommend to take up to 1000mg of Acetaminophen (Tylenol) and 600mg of Ibuprofen (Advil) every 8 hours as needed. These larger strength tablets were called in but you also may use [id number]. - You have been prescribed oxycodone for breakthrough pain. Follow-up: 7-10 days Referrals: Raheel Gongora MD [ [facility] STAFF PHYSICIAN] - Equipment/Supplies: Partial Weight Bearing Crutches Activity:: Activity as Tolerated Shower/Bathe:: 72 hours Diet:: As Tolerated Discharge Orders Discharge Orders: Discharge Order (Routine); Ordered 05/30/23 Ordered By: Mynor Durant DS: Diagnosis Discharge Diagnosis (1) Painful orthopaedic hardware: Status: Resolved
[2023-05-30] MEDS: ceFAZolin 2 GM/50 ML BAG IVPB (13:31)
[2023-05-30 14:18] VITALS: BP 93/79; PULSE 67; RESP 16; TEMP 36; O2SAT 97
[2023-05-30 14:48] VITALS: BP 94/63; PULSE 66; RESP 14; TEMP 36.1; O2SAT 100
--- NOTE | 2023-05-30 14:55 | W.ANESPOSTOP ---
Postoperative Evaluation Date, Time and Location Date Performed: 05/30/23 Time Performed: 14:56 Patient Location: Day Surgery Unit Vital Signs Most Recent Imported Vital Signs: Most Recent Vital Signs Temp Pulse Resp BP Pulse Ox 36 C L 67 16 93/79 L 97 05/30/23 14:18 05/30/23 14:18 05/30/23 14:18 05/30/23 14:18 05/30/23 14:18 Pain Score Most Recent Pain Score: Most Recent Pain Score Pain Level 0 05/30/23 14:18 Assessment Mental Status: Awake (Alert & Oriented to Patient Baseline) Airway and Respiratory Function: Patent airway with normal (patient baseline) respiratory exam Cardiovascular Function: Hemodynamically Stable Hydration Status: Adequately Hydrated Nausea & Vomiting: No Nausea or Vomiting Pain: Pt. Denies Any Pain Peripheral Nerve Block: Patient did not receive a nerve block
--- NOTE | 2023-05-30 15:12 | ROE_ITS ---
Date of service: 05/30/23 Time of Service: 13:30 Operative Note Operative Note PRE-OP DIAGNOSIS: Painful retained sutures, left knee POST-OP DIAGNOSIS: same PROCEDURE: Removal of retained nonabsorbable sutures, left knee with local tissue debridement and bursectomy SURGEON: Raheel Gongora ANESTHESIA TYPE: General:No Airway Refer to Anesthesia Record ESTIMATED BLOOD LOSS: 10 PATHOLOGY: none sent COMPLICATIONS: None Patient was transported to: same day Patient's condition: stable Indications: I have seen Fay in clinic for painful nodules about the left knee. This was determined to be from the knot of FiberWire sutures which are nonabsorbable sutures buried deep within the quadriceps and retinaculum. These are bothersome to her along with some swelling associated with it. Therefore, I offered removal of the buried sutures with local debridement. I discussed the risk of the procedure to include bleeding, infection, pain, stiffness, continued symptoms, tendon weakness or rupture. Despite these risks, Fay elected to proceed. Findings: There were a total of 4 prominent FiberWire knots which were identified and removed. There was a notable bursa in this region with some dense scarring which was resected and debrided. Procedure Description: Fay was greeted in the preoperative holding area where the correct side was identified and marked. The consent was reviewed with the patient and signed. The history and physical was updated. All questions were answered. Fay was taken back to the operating room. A general anesthetic without airway was then administered. The patient was placed into the supine position on the operating room table with the left leg on a bone foam ramp. All bony prominences were well padded. Prophylactic antibiotics in the form of Cefazolin were administered. 1g of Tranxemic Acid was given intravenously within 30 m inutes of incision. The left leg was then prepped with Chloraprep and draped in a standard fashion with impervious stockinette. A second prep with Chloraprep was performed prior to application of Iodine impregnated skin protection. A timeout to confirm correct identity, side and site, procedure, allergies, anesthesia, and medical concerns was performed. The previous incision was then incised. This was taken down sharply through the skin and there was noted to be thickened bursa in this region. There is some areas of dense scarring adjacent to it. The bursa was debrided and the soft tissue flaps were elevated on top of the patella and the retinaculum. I was unable them to identify 3 FiberWire knots in the more superior portion of the arthrotomy retinacular repair. These were identified, debrided of surrounding soft tissue, 1 strand cut, and then removed. A fourth suture was found slightly more distal and medial, aligning with an area of reported pain. Adjacent to this was also a prominence of bone which was debrided and smoothed. The remainder of the retinaculum was intact. There is no defects. There is no other prominence knots or other areas of prominence palpated. The wound was then thoroughly irrigated with normal saline. Once again it was inspected once more. There were a's small defect where the sutures were removed from the superomedial and the inferomedial location. These defects were closed with a #1 Vicryl, with the knot buried. The skin and subcutaneous tissue and deep tissues were then injected with a mixture of ropivacaine, epinephrine, clonidine, and ketorolac. The wound was once again irrigated. The deep layer was closed with a 2-0 Vicryl. The skin was closed with ced. The wound was dressed with Mepilex followed by an Lawrence wrap. At the end the case all counts were correct. She was taken back to the day surgery area where she had tolerated the procedure well. There is no notable complications. She will be weightbearing as tolerated. Follow-up in 2 weeks.
== END 2023-05-30 15:11 | disposition home or self-care (01) ==
PROVIDERS: PCP Nurse Practitioner Family; Visit Provider Student in an Organized Health Care Education/Training Program
PROC: (CPT 27372; principal; 2023-05-30 14:45)
DX: T84.84XA Pain due to internal orthopedic prosthetic devices, implants and grafts, initial encounter (principal); M71.862 Other specified bursopathies, left knee; E11.9 Type 2 diabetes mellitus without complications; Z79.4 Long term (current) use of insulin; K76.0 Fatty (change of) liver, not elsewhere classified
CPT/HCPCS: 27372; 27340; J0690; J2250; J2704

== ENCOUNTER → 2023-06-07 02:07 | Outpatient (CLI) | payer MEDICARE, SELFPAY ==
--- NOTE | 2023-06-07 08:15 | DI.MAMMO_ITS ---
Exam(s) MAMMO SCREENING EXAM: MAMMO SCREENING CLINICAL HISTORY: screening,Z12.39 TECHNIQUE: Mammograms were interpreted according to the usual protocol including computer analysis w [email or web address] CAD system, tomosynthesis and C-view imaging. COMPARISON: 2017 through 2022 FINDINGS: The breasts are composed of scattered fibroglandular densities, Breast Density category B. No suspicious masses or suspicious microcalcifications are seen. No skin thickening or abnormal axillary lymph nodes are seen. There has been no significant change from prior exams. IMPRESSION: BI-RADS Category 1, Negative mammogram Yearly screening mammography is recommended. Breast Density - Category B, scattered fibroglandular densities. A negative radiographic report should not delay biopsy if a dominant or clinically suspicious mass is present. Up to ten percent of cancers are not identified on mammography. A negative report may reinforce clinical impression. Adenosis and dense breasts may obscure an underlying neoplasm. False positive reports average 6 to 10%. Patient will receive a letter notifying them of these results.
== END ==
PROVIDERS: PCP Nurse Practitioner Family; Visit Provider Nurse Practitioner Family
DX: Z12.31 Encounter for screening mammogram for malignant neoplasm of breast (principal)
CPT/HCPCS: 77063; 77067

== ENCOUNTER → 2023-06-12 09:43 | Outpatient (BNVA) | payer MEDICARE, SELFPAY | PROVIDERS: PCP Nurse Practitioner Family; Referring Provider Nurse Practitioner Family; Visit Provider Student in an Organized Health Care Education/Training Program | DX: T84.84XD Pain due to internal orthopedic prosthetic devices, implants and grafts, subsequent encounter (principal); Z96.652 Presence of left artificial knee joint ==

== ENCOUNTER → 2023-06-26 09:36 | Outpatient (BNVA) | payer MEDICARE, SELFPAY | PROVIDERS: PCP Nurse Practitioner Family; Referring Provider Nurse Practitioner Family; Visit Provider Student in an Organized Health Care Education/Training Program | DX: Z47.89 Encounter for other orthopedic aftercare (principal); M75.52 Bursitis of left shoulder | CPT/HCPCS: 20610; J1010 ==

== ENCOUNTER 2023-07-05 05:02 | Outpatient (CLI) | payer MEDICARE, SELFPAY ==
[2023-07-05 12:02] LABS: Hemoglobin A1C 5.8 % (<5.7)
[2023-07-05 12:24] LABS: ALT 22 U/L (14-59); AST 11 U/L (15-37); Albumin 3.8 g/dL (3.4-5.0); Alkaline Phosphatase 90 U/L (46-116); Anion Gap 12.4 mmol/L (3-11); BUN 12 mg/dL (7-18); Bilirubin, Total 1.5 mg/dL (0.2-1.0); CO2 24.6 mmol/L (21.0-32.0); CREATININE 0.9 mg/dL (0.55-1.02); Calcium 10.1 mg/dL (8.5-10.1); Chloride 105 mmol/L (98-107); Estimated GFR 75.97 (mL/min/1.73m2); Ferritin 266 ng/mL (8-252); Glucose 138 mg/dL (74-106); Potassium 3.4 mmol/L (3.5-5.1); Sodium 142 mmol/L (136-145); Total Protein 8.4 g/dL (6.4-8.2)
== END 2023-07-05 05:03 | disposition home or self-care (01) ==
LOC: LBO 05:03
PROVIDERS: PCP Nurse Practitioner Family; Visit Provider Nurse Practitioner Family
DX: E11.9 Type 2 diabetes mellitus without complications (principal)
CPT/HCPCS: 36415; 80053; 82728; 83036

== ENCOUNTER → 2023-07-19 03:19 | Outpatient (CLI) | payer MEDICARE, SELFPAY ==
--- NOTE | 2023-07-19 11:09 | DI.RAD_ITS ---
Exam(s) XR LUMBAR SPINE COMPLETE EXAM: XR LUMBAR SPINE COMPLETE CLINICAL HISTORY: back pain, low back pain, M54.50. TECHNIQUE: 2D digital imaging was performed of the lumbar spine. Five images were obtained. AP, la teral, right oblique, left oblique and L5-S1 spot views were obtained. COMPARISON: CR XR LUMBAR SPINE COMPLETE from 11/05/2021 FINDINGS: BONES: No fracture or destructive lesion. Small endplate osteophytes are seen at L3-L4 and L4-L5. No facet hypertrophy identified. DISKS: Intervertebral disc spaces are maintained. ALIGNMENT: Lumbar spinal alignment is within normal limits. No spondylolysis or spondylolisthesis. SOFT TISSUE: Vascular calcifications are present. Surgical clips are seen in the right abdomen. IMPRESSION: Mild degenerative changes of the lumbar spine. DATA REPOSITORY: RADIATION DOSE DELIVERED:
== END ==
PROVIDERS: PCP Nurse Practitioner Family; Visit Provider Nurse Practitioner Family
DX: M54.50 Low back pain, unspecified (principal)
CPT/HCPCS: 72110

== ENCOUNTER 2023-07-26 05:26 | Outpatient (CLI) | payer MEDICARE, SELFPAY ==
[2023-07-26 15:26] LABS: ALT 19 U/L (14-59); AST 12 U/L (15-37); Albumin 3.4 g/dL (3.4-5.0); Alkaline Phosphatase 79 U/L (46-116); Anion Gap 13.4 mmol/L (3-11); BUN 8 mg/dL (7-18); Bilirubin, Total 1.8 mg/dL (0.2-1.0); CO2 21.6 mmol/L (21.0-32.0); CREATININE 0.9 mg/dL (0.55-1.02); Chloride 106 mmol/L (98-107); Estimated GFR 75.97 (mL/min/1.73m2); Ferritin 261 ng/mL (8-252); Glucose 126 mg/dL (74-106); Potassium 3.2 mmol/L (3.5-5.1); Sodium 141 mmol/L (136-145); Total Protein 7.5 g/dL (6.4-8.2)
== END 2023-07-26 05:27 | disposition home or self-care (01) ==
LOC: LBO 05:26
PROVIDERS: PCP Nurse Practitioner Family; Visit Provider Nurse Practitioner Family
DX: E87.6 Hypokalemia (principal); R79.89 Other specified abnormal findings of blood chemistry
CPT/HCPCS: 36415; 80053; 82728

== ENCOUNTER → 2023-08-08 02:28 | Outpatient (CLI) | payer MEDICARE, SELFPAY ==
--- NOTE | 2023-08-08 11:15 | DI.RAD_ITS ---
Exam(s) XR SACRUM COCCYX EXAM: XR SACRUM COCCYX CLINICAL HISTORY: SACRUM AND LOW BACK PAIN,M54.50. TECHNIQUE: 2D digital imaging was performed. COMPARISON: No exams were available for comparison FINDINGS: 3 views No sacral fracture identified. SI joints appear unremarkable. No osseous lesions evident. Most inferior aspect of the coccyx appears somewhat indistinct. IMPRESSION: As above. Correlation with site of tenderness is recommended and clinically indicated follow-up CT o r or MRI can be performed for added sensitivity and specificity. DATA REPOSITORY: RADIATION DOSE DELIVERED:
== END ==
PROVIDERS: PCP Nurse Practitioner Family; Visit Provider Physician Assistant
DX: M54.50 Low back pain, unspecified (principal)
CPT/HCPCS: 72220

== ENCOUNTER → 2023-08-11 00:39 | Outpatient (CLI) | payer MEDICARE, SELFPAY ==
--- NOTE | 2023-08-11 10:14 | DI.RAD_ITS ---
Exam(s) RF BARIUM SWALLOW EXAM: RF BARIUM SWALLOW CLINICAL HISTORY: dysphagia with solids since compa fundoplication, R13.10, Z98.890 TECHNIQUE: 2D and realtime digital imaging was performed. CONTRAST MATERIAL: Thick and thin barium and barium tablet were administered. COMPARISON: CT CT CHEST WO from 11/08/[address] CHEST WO from 03/15/2023 FINDINGS: The PA and lateral chest films show normal heart size and clear lung szymanski. The lateral social group worker view of the neck is unremarkable. Esophagus: The patient swallowed barium without difficulty. No evidence of aspiration. Noevidence f or mucosal erosions. Mass effect on fund of stomach consistent with Compa procedure. Mild narrowing the GE junction. The barium tablet stuck briefly at this location. Motility: There is a normal primary stripping wave. Mild tertiary contractions were noted. There is no hiatal hernia. Moderategastroesophageal reflux was observed during the exam. IMPRESSION: Status post Compa fundoplication. Mild narrowing at GE junction. No evidence of stricture. Reflux wa s observed. Mild tertiary contractions. RADIATION DOSE DELIVERED: beth Melo=28.3 mGy
[2023-08-11] MEDS: Barium Sulfate 700 MG TAB PO (10:17)
[2023-08-11] MEDS: Simethicone/Sod Bicarb/Cit Ac, 4 gram PACKET 1 PACKET PO (10:18)
[2023-08-11] MEDS: Barium Sulfate 98% W/W 140 ML BTL PO (10:19)
[2023-08-11] MEDS: Barium Sulfate 60% W/V 355 ML BTL PO (10:20)
== END ==
PROVIDERS: PCP Nurse Practitioner Family; Visit Provider Nurse Practitioner Family
DX: R13.10 Dysphagia, unspecified (principal); Z98.890 Other specified postprocedural states
CPT/HCPCS: 74221; J3490

== ENCOUNTER → 2023-08-21 02:40 | Outpatient (CLI) | payer MEDICARE, SELFPAY ==
--- NOTE | 2023-08-21 07:45 | DI.MRI_ITS ---
Exam(s) MR PELVIS WO EXAM: MR PELVIS WO CLINICAL HISTORY: evaluate pathology,COCCYX DISORDER,M53.3 TECHNIQUE: Multiplanar multisequence MRI of Pelvis was performed COMPARISON: No exams were available for comparison FINDINGS: OSSEOUS: No pelvic fractures. No hip fractures. No evidence of avascular necrosis of the hips. No hip joint effusions. No abnormal signal related to the sacroiliac joints nor in the sacrum nor in the co ccyx. There is slightly asymmetric subcutaneous fat density over the right-side of the coccyx but wit hout mass nor fluid collection at this level. No abnormal findings in the sacral canal. Distal thecal sac ends normally at S1-S2 level. No evidence of Tarlov intra sacral cysts nor other significant les ions within the sacral canal. A disc herniation is incidentally noted at L4-5 level resulting in mild central canal stenosis. There is no significant disc herniation at L5-S1 level. There are no osseous lesions. COCCYX: MUSCULOTENDINOUS STRUCTURES: Musculotendinous structures demonstrate no abnormality. INTRAPELVIC STRUCTURES: Uterus is surgically absent. Nabothian cysts noted in the cervix. There are n o abnormal adnexal masses. No free fluid in the pelvis. Urinary bladder appears unremarkable. IMPRESSION: Previous hysterectomy. No abnormal adnexal masses. No free fluid in the pelvis. No abnormal intraosseous findings in the sacrum and sacral canal nor bowel intraosseous findings in t he distal sacrum and coccyx. There is, however, very subtle asymmetric subcutaneous tissue over the r ight-side of the coccyx but without evidence of a distinct fluid collection nor true mass at this lev el and there is no abnormal intraosseous signal within the segments of the coccyx and also no evidenc e to suggest osteomyelitis at this level nor at the level of the ischial tuberosities. DATA REPOSITORY:
== END ==
PROVIDERS: PCP Nurse Practitioner Family; Visit Provider Nurse Practitioner Family
DX: M53.3 Sacrococcygeal disorders, not elsewhere classified (principal)
CPT/HCPCS: 99214; 72195

== ENCOUNTER 2023-10-05 02:22 | Outpatient (CLI) | payer MEDICARE, SELFPAY ==
--- OUTSIDE RECORDS SUMMARY | 2023-10-05 02:24 | XMS_ITS | Encounter Summary ---
[place] [address] Care Team Providers Care Cash Grain Farmer Name Role Phone Gissell Davis APRN Primary Care Provider Encounter Details Date Type Department Care Team (Late st Contact Info) Description 07/26/2019 Ancillary Procedure [place] [address] Gissell Davis APRN [address] [place] [address] Social History Tobacco Use Types Packs/Day Years Used Date Smoking Tobacco: Never Smokeless Tobacco: Never Alcohol Use Standard Drinks/Week Comments Never 0 (1 standard drink = 0.6 oz pur e alcohol) Sex and Gender Information Value Date Recorded Sex Assigned at Not on file Gender Identity Not on file Sexual Orientation Not on file documented as of this encounter Plan of Treatment Not on file documented as of this encounter Procedures Procedure Name Priority Date/Time Associated Diagnosis Comments FILM LIBRARY STORAGE ONLY DX KNEE Routine 07/26/2019 12:00 AM EDT documented in this encounter Results * Film Library- Storage Only DX Knee (07/26/2019 12:00 AM EDT) Narrative [facility] - 03/17/2020 3:59 PM EST This exam is auto-finalizing. It's purpose is for storage only. Gissell Davis APRN [facility] [place]RARY ORD ERABLES [facility] [place] documented in this encounter Visit Diagnoses Not on filedocumented in this encounter Care Teams Cash Grain Farmer Relationship Specialty Start Date End Date Gissell Davis APRN [address] [place] [address] PCP - General Family Medicine 08/21/18 11/12/21 documented as of this encounter
--- OUTSIDE RECORDS SUMMARY | 2023-10-05 02:24 | XMS_ITS | Encounter Summary ---
[place] [address] Care Team Providers Care Industrial Spray Painter Name Role Phone Gissell Davis APRN Primary Care Provider [phone] Reason for Visit * Reason Onset Date Comments Questions 04/29/2020 Encounter Details Date Type Department Care Team (Late st Contact Info) Description 04/29/2020 Telephone [place] [phone] Gonzalo Leon Questions Social History Tobacco Use Types Packs/Day Years Used Date Smoking Tobacco: Never Smokeless Tobacco: Never Alcohol Use Standard Drinks/Week Comments Never 0 (1 standard drink = 0.6 oz pur e alcohol) Sex and Gender Information Value Date Recorded Sex Assigned at Not on file Gender Identity Not on file Sexual Orientation Not on file documented as of this encounter Miscellaneous Notes * Telephone Encounter - Gonzalo Leon - 04/29/2020 2:12 PM EST Triage Note ?? Subjective: pt calls requesting update on transcript from 04/23/20 visit w/Dr. Sheffield be faxed to her referring providor, Dr. Rivas at [place], [place] PH: [phone] FAX: [phone] ?? Plan: spoke w/Dr. Sheffield and relayed to pt we will complete request when bakery and deli sales manager is ready ?? Patient/Responsible democrat voices an understanding of advice? yes ?? Patient/Responsible democrat intends to comply with action/disposition: yes documented in this encounter Plan of Treatment Not on file documented as of this encounter Visit Diagnoses Not on filedocumented in this encounter Care Teams Industrial Spray Painter Relationship Specialty Start Date End Date Gissell Davis APRN [address] [place] [address] PCP - General Family Medicine 08/21/18 11/12/21 documented as of this encounter
--- OUTSIDE RECORDS SUMMARY | 2023-10-05 02:24 | XMS_ITS | Encounter Summary ---
Author Organization [facility] Address [facility] [place] [address] Care Team Providers Care Derrick Boat Operator Name Role Phone Unknown Primary Care Provider Unavailabl e Encounter Details Date Type Department Care Team (Latest Contact Info) Description 12/01/2021 9:58 PM EDT - 12/01/2021 11:59 PM EDT Hospital Encounter [place] [phone] Discharge Disposition: Home Social History Tobacco Use Types Packs/Day Years Used Date Smoking Tobacco: Never Smokeless Tobacco: Never Alcohol Use Standard Drinks/Week Comments Never 0 (1 standard drink = 0.6 oz pur e alcohol) Sex and Gender Information Value Date Recorded Sex Assigned at Not on file Gender Identity Not on file Sexual Orientation Not on file documented as of this encounter Medications at Time of Discharge Medication Sig Dispensed Refills Start Date End Date cholecalciferol, Vitamin D3, 50 mcg (2,000 unit) Capsule Daily. 05/19/2015 ferrous sulfate 325 mg (65 mg iron) Tablet Take by mouth. 05/28/2019 Lactase 9,000 unit Tablet Daily. 09/05/2016 nystatin (MYCOSTATIN) Cream nystatin 100,000 unit/gram topical cream APPLY TO THE AFFECTED AREA(S) BY TOPICAL ROUTE 2 TIMES PER DAY 05/02/2017 triamcinolone (ARISTOCORT) 0.5 % Cream APPLY THIN LAYER ONCE DAILY TO HANDS AND ARM NEEDED 04/08/2020 phenazopyridine (PYRIDIUM) 200 mg Tablet Take 1 tablet by mouth 3 times daily as needed for Pain. 9 tablet 12/28/2018 tamsulosin (FLOMAX) 0.4 mg Capsule Take 1 capsule by mouth daily. 60 tablet 2 11/16/2018 cephALEXin (KEFLEX) 250 mg Capsule Take 1 capsule by mouth 3 times daily. 10/17/2018 acetaminophen (TYLENOL) 500 mg Tablet Take 2 tablets by mouth every 6 hours as needed for Pain. Do not exceed 4000 mg per 24 hours. 30 tablet 1 10/16/2018 FLUoxetine (PROZAC) 40 mg Capsule Daily. rifAMPin (RIFADIN) 300 mg Capsule Every 12 hours. gabapentin (NEURONTIN) 300 mg Capsule Every 8 hours. metFORMIN (GLUCOPHAGE) 1,000 mg Tablet Every 12 hours. Magnesium Oxide 500 mg Tablet TAKE ONE TABLET BY MOUTH EVERY DAY 3 07/20/2018 albuterol (PROVENTIL) 2.5 mg /3 mL (0.083 %) nebulizer solution Take 2.5 mg by nebulization nightly. 07/08/2010 traMADol (ULTRAM) 50 mg tablet Take 50 mg by mouth daily. 1-2 tablets daily 07/08/2010 HYDROmorphone (DILAUDID) 2 mg tablet Take by mouth daily. Takes 1-2 tablets daily 07/08/2010 OXYcodone-acetaminophe n (PERCOCET) 5-325 mg per tablet Take 1 tablet by mouth daily as needed. 07/08/2010 montelukast (SINGULAIR) 10 mg tablet 03/18/2010 cetirizine (ZYRTEC) 10 mg tablet 03/18/2010 LEVALBUTEROL HCL (XOPENEX INHL) 03/18/2010 FLUTICASONE/SALMETEROL (ADVAIR HFA INHL) 03/18/2010 sucralfate (CARAFATE) 1 gram tablet 03/18/2010 PROPRANOLOL HCL (PROPRANOLOL ORAL) 03/18/2010 FLUoxetine (PROZAC) 20 mg capsule 03/18/2010 amitriptyline (ELAVIL) 25 mg tablet 03/18/2010 trimethobenzamide (TIGAN) 300 mg capsule 300 MG = 1 Capsule(s), PO, Three times daily 03/18/2010 documented as of this encounter Plan of Treatment Not on file documented as of this encounter Procedures Procedure Name Priority Date/Time Associated Diagnosis Comments SURGICAL PATHOLOGY REPORT Routine 12/01/2021 12:30 PM EDT documented in this encounter Results * Surgical Pathology Report (12/01/2021 12:30 PM EDT) Final Diagnosis [id number] ? Location: [facility] The signing pathologist has (i) examined the relevant preparation(s) for the specimen(s) and (ii) rendered or confirmed the diagnosis(es). . ?Surgical Pathology DIAGNOSIS A - Antrum, biopsy: - ??Gastric antral and fundic gland mucosa with nonspecific reactive gastropathy. B - Gastric body, biopsy: - ??Gastric fundic gland mucosa with mild chronic inflammation and nonspecific reactive gastropathy. - ??Immunostaining for H. pylori is negative. C - Distal Esophagus, biopsy: - ??Cardia-type mucosa with mild chronic inflammation. - There is no evidence of intestinal metaplasia. Electronically signed by: ?Nichelle RUIZ PhD, Lakisha Verified: ??12/10/2021 10:54 ??Pathologist Performed at: ??-[facility] Dept. of Pathology, [place], [place] ADDITIONAL STUDIES Immunohistochemistry Studies: Formalin-fixed, paraffin-embedded tissue sections are studied using the polymer technique with appropriate positive and negative controls. ?These IHC studies provide the pathologist with adjunctive diagnostic information. Antibody specificity has been verified by testing antibodies on a series of in-house tissues with known immunohistochemical performance characteristics. The clinical interpretation of any antibody positive staining or its absence is evaluated within the context of clinical presentation, morphology, histopathological criteria and other diagnostic tests. Block ? Antibody ?Result (Positive/Negative) A1 ? H. pylori ?Negative B1 ? H. pylori ?Negative SPECIMEN(S) SUBMITTED A - Antrum, biopsy () B - Gastric body, biopsy C - Distal Esophagus, biopsy Referring Identifier: ?(not provided) CLINICAL INFORMATION Recurrent paraesophageal hernia, Nolen's esophagus, bile reflux, esophagitis SPECIMEN PROCESSING A - Labeled/Fixative: Biopsy antrum, formalin. Quantity/Size: Two, 0.2 and 0.6 cm. Tissue Description: Soft, guerra tissues. Sections/Processing: Submitted en toto ??in 1 cassette labeled A1. B - Labeled/Fixative: Biopsy body-gastric, formalin. Quantity/Size: Single, 0.4 x 0.3 cm. Tissue Description: Soft, guerra tissue. Sections/Processing: Submitted en toto ??in 1 cassette labeled B1. . SPECIMEN PROCESSING C - Labeled/Fixative: Biopsy distal esophagus, formalin. Quantity/Size: Three, 0.2-0.3 cm. Tissue Description: Soft, guerra-white tissues. Sections/Processing: Submitted en toto ??in 1 cassette labeled C1. ??det/jnr 12/10/2021 10:54 AM EDT [facility] GI Biopsy 12/01/2021 12:3 0 PM EDT 12/01/2021 12:30 PM EDT GI Biopsy 12/01/2021 12:3 0 PM EDT 12/01/2021 12:30 PM EDT GI Biopsy 12/01/2021 12:3 0 PM EDT 12/01/2021 12:30 PM EDT Ward Rosa MD PATHOLOGY/CYTO LOGY ORDERABLES Performing Organization Address City/State/[facility] Co de Phone Number [facility] [place] [address] documented in this encounter Visit Diagnoses Not on filedocumented in this encounter Care Teams Derrick Boat Operator Relationship Specialty Start Date End Date Unknown None PCP - General 11/13/21 documented as of this encounter
--- OUTSIDE RECORDS SUMMARY | 2023-10-05 02:24 | XMS_ITS | Encounter Summary ---
Author Organization [facility] Address [address] [place] [address] Care Team Providers Care Coding Specialist Home Health Name Role Phone Unknown, Provider Primary Care Provider [phone] Carla Reinoso MD Primary Care Provider Encounter Details Date Type Department Care Team (Late st Contact Info) Description 06/10/2004 Results Only [facility] [address] [place] [address] Garett Barba, DO [address] [facility] [address] [place], [place] [address] Social History Tobacco Use Types Packs/Day Years Used Date Smoking Tobacco: Never Assessed Sex and Gender Information Value Date Recorded Sex Assigned at Not on file Gender Identity Not on file Sexual Orientation Not on file documented as of this encounter Plan of Treatment Not on file documented as of this encounter Procedures Procedure Name Priority Date/Time Associated Diagnosis Comments SURGICAL PATHOLOGY Routine 06/10/2004 0:00 EDT documented in this encounter Results * SURGICAL PATHOLOGY (06/10/2004 0:00 EDT) Pathology Report: SURGICAL PATHOLOGY REPORT Reports generated via electronic interface contain original data; however they are lacking the format of the original report. Caution should be taken when reading/interpreti ng unformatted reports. Name: ? BARBARA CHAPMAN Everett ? Accession #: ? [id number] ? : ? 1970 (Age: 33) ??F ? Collect Date: ? 06/10/2004 ? Location: ? [facility] ? Receive Date: ? 06/11/2004 ? Provider: GARETT BARBA DO Copy to: CARLA REINOSO MD ? Final Pathologic Diagnosis: A. ?Stomach, antrum, biopsy: 1. ?Antral type mucosa with no pathologic features. B. ?Esophagus, GE junction, biopsy: 1. ?Squamous mucosa with reflux esophagitis. Document reviewed and electronically signed by: ARYA KERN MD Report ??Date: 06/15/2004 17:18 By the signature above, the attending physician certifies that he/she has personally conducted a gross and/or microscopic examination of the described specimens and rendered or confirmed the above diagnosis. Specimen(s) Received: A. ?Bx antrum B. ?Bx GE junction Clinical History: ? EGD, PMH, fundoplication 1998, GE reflux Gross Description: ? Received in Hollande's fixative labelled Cat and antrum bx is an irregular 0.4 x 0.2 x 0.1 cm guerra-pink soft tissue. ??Submitted in toto as (A). ?? Received in Hollande's fixative labelled Cat and GE junction bx are three irregular guerra-pink soft tissues averaging 0.3 x 0.1 x 0.1 cm. ??Submitted in toto as (B). ??(A. Lonny-CHRISTINE)/tmg End of Report [facility] 06/10/2004 06/11/2004 15: 06 EDT Garett Barba DO PATHOLOGY ORDER TRE [facility] [address] [place] [address] documented in this encounter Visit Diagnoses Not on filedocumented in this encounter Care Teams Coding Specialist Home Health Relationship Specialty Start Date End Date Unknown, Provider, PCP - General 07/17/08 01/27/10 Carla Reinoso MD [address] [place] [address] PCP - General 07/16/08 07/16/08 documented as of this encounter
--- OUTSIDE RECORDS SUMMARY | 2023-10-05 02:24 | XMS_ITS | Encounter Summary ---
Author Organization [facility] Address [address] [place] [address] Care Team Providers Care Ball Worker Name Role Phone Unknown, Provider Primary Care Provider Carla Lieberman MD Primary Care Provider [phone] Encounter Details Date Type Department Care Team (Late st Contact Info) Description 07/12/1999 Results Only [facility] - Maple [facility] [address] [place] [address] Ed Mosqueda MD [address] [place] [phone] Social History Tobacco Use Types Packs/Day Years Used Date Smoking Tobacco: Never Assessed Sex and Gender Information Value Date Recorded Sex Assigned at Not on file Gender Identity Not on file Sexual Orientation Not on file documented as of this encounter Plan of Treatment Not on file documented as of this encounter Procedures Procedure Name Priority Date/Time Associated Diagnosis Comments HUMAN PAPILLOMAVIRUS PROFILE Routine 07/12/1999 10:30 EDT CYTOPATHOLOGY Routine 07/12/1999 0:00 EDT documented in this encounter Results * HUMAN PAPILLOMAVIRUS PROFILE (07/12/1999 10:30 EDT) Specimen Description Cervix, ThinPrep vial [facility] Result-HPV Profile (Note) Negative for HPV types 6,11,16,18,31 ,33,35,39,42, 43,44,45,51,5 2 ?,56,58,59, and 68 ? [facility] Report Status (Note) FINAL [id number] ? TEST PERFORMED OR REFERRED BY [facility] ? [facility] ? [address] ? [place], [place] ??[address] ? [facility] 07/12/1999 10:3 0 EDT 07/26/1999 15:56 EDT Ed Mosqueda MD HISTORICAL LAB FOR S Q LOAD [facility] [address] [place] [address] * CYTOPATHOLOGY (07/12/1999 0:00 EDT) Pathology Report: CYTOPATHOLOGY REPORT Reports generated via electronic interface contain original data; however they are lacking the format of the original report. Caution should be taken when reading/interpreti ng unformatted reports. Name: ? BARBARA CHAPMAN ? Accession #: ? [id number] : ? 1970 (Age: 29) ??F ?Collect Date: ? 07/12/1999 Location: ? [facility] ? Receive Date: ? 07/13/1999 Provider: ?ED MOSQUEDA MD Copy to: ? Specimen/Source: ?ThinPrep Pap Test, Cervix/Endocervix Last Menstrual Period: ? 06/30/99 Previous Gynecologic Pathology: ? ASC-US: X2 Treatment History: ? Colposcopy: Negative Other: ? HPVDX - HPV testing requested regardless of diagnosis on current ThinPrep Pap test. Additional clinical information: Monog. X 5 years, R/O HPV ? SPECIMEN ADEQUACY ? Satisfactory for evaluation. GENERAL CATEGORIZATION ? Epithelial Cell Abnormality DESCRIPTIVE DIAGNOSIS ? Atypical squamous cells of undetermined significance, favor reactive process. RECOMMENDATION ? Recommend repeat Pap test in 3-6 months or further follow up, as clinically indicated. ? Document reviewed and electronically signed by: ? Barbara Parker MD ? Report Date: ??07/29/1999 14:16 End of Report [facility] 07/12/1999 07/13/1999 Ed Mosqueda MD PATHOLOGY ORDERABLES Performing Organization Address City/State/[facility] Co de Phone Number [facility] [address] [place] [address] documented in this encounter Visit Diagnoses Not on filedocumented in this encounter Care Teams Ball Worker Relationship Specialty Start Date End Date Unknown, Provider, PCP - General 07/17/08 01/27/10 Carla Lieberman MD [address] [place] [address] PCP - General 07/16/08 07/16/08 documented as of this encounter
--- OUTSIDE RECORDS SUMMARY | 2023-10-05 02:24 | XMS_ITS | Encounter Summary ---
Author Organization [facility] Address [address] [place] [address] Care Team Providers Care Editing Computer Publisher Name Role Phone Mary Carrillo Primary Care Provider Unavailab le Encounter Details Date Type Department Care Team (Late st Contact Info) Description 12/28/2010 Results Only [facility] [phone] Daniel Conti MD [address] [place] [address] Social History Tobacco Use Types Packs/Day Years Used Date Smoking Tobacco: Never Assessed Sex and Gender Information Value Date Recorded Sex Assigned at Not on file Gender Identity Not on file Sexual Orientation Not on file documented as of this encounter Plan of Treatment Not on file documented as of this encounter Procedures Procedure Name Priority Date/Time Associated Diagnosis Comments PAP TEST- RESULT ONLY Routine 12/28/2010 0:00 EST SURGICAL PATHOLOGY Routine 12/28/2010 0:00 EST documented in this encounter Results * PAP TEST- RESULT ONLY (12/28/2010 0:00 EST) Pathology Report: CYTOPATHOLOGY REPORT Reports generated via electronic interface contain original data; however they are lacking the format of the original report. Caution should be taken when reading/interpreti ng unformatted reports. Name: ? BARBARA CHAPMAN ? Accession #: ? [id number] ? : ? 1970 (Age: 40) ??F ?Collect Date: ? 12/28/2010 ? Location: ? [facility] ? Receive Date: ? 12/29/2010 ? Provider: DANIEL CONTI MD Copy to: DIANE REINOSO MD ? Final Report SPECIMEN ADEQUACY ? Satisfactory for Evaluation - transformation zone component present GENERAL CATEGORIZATION ? Negative for Intraepithelial Lesion or Malignancy INTERPRETATION ? Reactive cellular changes associated with inflammation present (includes repair). Other: Additional clinical information: last pap 05/05/2006 neg Specimen/Source: ??Pap Test, Cervix/Endocervix, ThinPrep Imaging System with manual evaluation Document reviewed and electronically signed by: ? ARYA KERN MD ? Report ??Date: 01/07/2011 14:20 HPV with Pap Test ? Date Ordered: ? 01/05/2011 ? Status: ?? Signed Out ?Date Complete: ? 01/19/2011 ? By: ??System Interface ? Date Reported: ? 01/19/2011 ? Interpretation RESULT: Negative for HPV types 16, 18, 31, 33, 35, 39, 45, 51, 52, 56, 58, 59, and 68. Comments Document reviewed and electronically signed by: ? System Interface ? Report date: 01/19/2011 By the signature above, the attending physician certifies that he/she has personally conducted a gross and/or microscopic examination of the described specimens and rendered or confirmed the above diagnosis. End of Report [facility] 12/28/2010 12/29/2010 Daniel Conti MD PATHOLOGY ORDERABLES [facility] [address] [place] [address] * SURGICAL PATHOLOGY (12/28/2010 0:00 EST) Pathology Report: SURGICAL PATHOLOGY REPORT Reports generated via electronic interface contain original data; however they are lacking the format of the original report. Caution should be taken when reading/interpreting unformatted reports. Name: ? BARBARA CHAPMAN ? Accession #: ? [id number] ? : ? 1970 (Age: 40) ??F ? Collect Date: ? 12/28/2010 ? Location: ? [facility] ? Receive Date: ? 12/29/2010 ? Provider: DANIEL CONTI MD Copy to: DIANE REINOSO MD ? Final Pathologic Diagnosis: ? Endometrium, biopsy: 1. ?Simple endometrial hyperplasia without atypia. 2. ? Tubal metaplasia. 3. ? Benign endocervical glandular epithelium. Comment: ? This case was reviewed at the intradepartmental consultation conference. (Dr. Carcamo)/[facility] Document reviewed and electronically signed by: Symone Card MD Report ??Date: 12/31/2010 15:47 By the signature above, the attending physician certifies that he/she has personally conducted a gross and/or microscopic examination of the described specimens and rendered or confirmed the above diagnosis. Specimen(s) Received: ? Endometrial bx Clinical History: ? Menorrhagia Gross Description: ? Received in formalin labelled ChapmanBarbara and cvx endometrial bx is approximately 3 cc of red-brown tissue fragments admixed with blood tinged mucus. ??The specimen is submitted entirely as (A1) and (A2) following filtration. ??(CARLOS A Grewal)/radha End of Report [facility] 12/28/2010 12/29/2010 8:3 3 EST Daniel Conti MD PATHOLOGY ORDERABLES Performing Organization Address City/State/[facility] Co de Phone Number [facility] [address] [place] [address] documented in this encounter Visit Diagnoses Not on filedocumented in this encounter Care Teams Editing Computer Publisher Relationship Specialty Start Date End Date Mary Carrillo PA PCP - General 01/28/10 01/02/11 documented as of this encounter
--- OUTSIDE RECORDS SUMMARY | 2023-10-05 02:24 | XMS_ITS | Encounter Summary ---
[place] [address] Care Team Providers Care Pan Washer Hand Name Role Phone Gissell Davis APRN Primary Care Provider Reason for Referral * Diagnostic Test (Routine) - Closed Specialty Diagnoses / Procedures Referred By Contac t Referred To Contact Radiology Diagnoses Status post left partial knee replacement Left knee pain, unspecified chronicity Procedures US Extremity Non Vascular MSK (Muscles Joints) Left Raheel Gongora MD [address] [place] [address] [facility] [place] [address] Referral ID Status Reason Start Date Expiration Date V isits Requested Visits Authorized [id number] Closed Specialty Service Requested 10/21/2020 04/20/2022 1 1 Reason for Visit * Diagnostic Test (Routine) - Closed Specialty Diagnoses / Procedures Referred By Contac t Referred To Contact Radiology Diagnoses Status post left partial knee replacement Left knee pain, unspecified chronicity Procedures US Extremity Non Vascular MSK (Muscles Joints) Left Raheel Gongora MD [address] [place] [address] [facility] [place] [address] Referral ID Status Reason Start Date Expiration Date V isits Requested Visits Authorized [id number] Closed Specialty Service Requested 10/21/2020 04/20/2022 1 1 Encounter Details Date Type Department Care Team (Latest Contact Info) Description 11/04/2020 3:04 PM EDT - 11/04/2020 11:59 PM EDT Hospital [place] [address] Raheel Gongora MD [address] [place] [address] Status post left partial knee replacement; Left knee pain, unspecified chronicity Discharge Disposition: Home Social History Tobacco Use [...] Procedure Name Priority Date/Time Associated Diagnosis Comments US EXTREMITY NON VASCULAR MSK (JOINTS MUSCLES) LEFT Routine 11/04/2020 3:40 PM EDT Status post left partial knee replacement Left knee pain, unspecified chronicity documented in this encounter Results * US Extremity Non Vascular MSK (Muscles Joints) Left (11/04/2020 3:40 PM EDT) Anatomical Region Laterality Modality Arm, Shoulder, Elbow, Forear m, Wrist, Hand, Hip, Thigh, Knee, Leg, Ankle, Foot Left Ultrasound Impressions 11/04/2020 4:25 PM EDT 1.6 x 0.8 cm full-thickness tear of the vastus medialis medialis contribution to the quadriceps tendon. The lateral fibers of the quadriceps tendon are intact. Thank you for letting us participate in the care of this patient. ??If you are a health care provider and have any questions regarding this report, please contact the number below. ??For patients who have questions please contact the health childcare center director that requested your imaging first. ? Electronically signed by: Elizabeth Hanson MD, [facility] ([phone]), at 11/04/2020 4:25 PM Narrative 11/04/2020 4:25 PM EDT EXAMINATION: US EXTREMITY NON VASCULAR MSK (JOINTS MUSCLES) LEFT CLINICAL HISTORY: S/P REVISION LTKA; LT KNEE PAIN; ?QUAD DISRUPTION; PAIN (as entered by ordering provider in the order requisition) TECHNIQUE: Sonographic grayscale and color Doppler images were obtained of the quadriceps tendon. COMPARISON: Left knee radiographs 04/23/2020 FINDINGS: Along the medial aspect of the quadriceps tendon there is an irregular anechoic defect measuring 1.6 cm in length and 0.8 cm in width, corresponding to a full-thickness tear of the vastus medialis contributions into the quadriceps tendon. The more lateral aspect of the quadriceps tendon is intact. Procedure Note Elizabeth Hanson MD - 11/04/2020 EXAMINATION: US EXTREMITY NON VASCULAR MSK (JOINTS MUSCLES) LEFT CLINICAL HISTORY: S/P REVISION LTKA; LT KNEE PAIN; ?QUAD DISRUPTION; PAIN(as entered by ordering provider in the order requisition) TECHNIQUE: Sonographic grayscale and color Doppler images were obtained of thequadriceps tendon. COMPARISON: Left knee radiographs 04/23/2020 FINDINGS: Along the medial aspect of the quadriceps tendon there is an irregularanechoic defect measuring 1.6 cm in length and 0.8 cm in width, corresponding toa full-thickness tear of the vastus medialis contributions into thequadriceps tendon. The more lateral aspect of the quadriceps tendon is intact. IMPRESSION 1.6 x 0.8 cm full-thickness tear of the vastus medialis medialiscontribution to the quadriceps tendon. The lateral fibers of the quadriceps tendon areintact. Thank you for letting us participate in the care of this patient. If youare a health care provider and have any questions regarding this report,please contact the number below. For patients who have questions please contactthe health childcare center director that requested your imaging first. Electronically signed by: Elizabeth Hanson MD, [facility]([phone]), at 11/04/2020 4:25 PM Raheel Gongora MD IMG US GEN ORDERABLE S documented in this encounter Visit Diagnoses Diagnosis Status post left partial knee replacement Knee joint replacement by other means Left knee pain, unspecified chronicity documented in this encounter Care Teams Pan Washer Hand Relationship Specialty Start Date End Date Gissell Davis APRN [address] [place] [address] PCP - General Family Medicine 08/21/18 11/12/21 documented as of this encounter
--- OUTSIDE RECORDS SUMMARY | 2023-10-05 02:24 | XMS_ITS | Encounter Summary ---
[place] [address] Care Team Providers Care Apprentice Embalmer Name Role Phone Unknown Primary Care Provider Unavailabl e Encounter Details Date Type Department Care Team (Late st Contact Info) Description 12/27/2021 [place] [address] Stacey Pool RN Social History Tobacco Use Types Packs/Day Years [...] on filedocumented in this encounter Care Teams Apprentice Embalmer Relationship Specialty Start Date End Date Unknown None PCP - General 11/13/21 documented as of this encounter
--- OUTSIDE RECORDS SUMMARY | 2023-10-05 02:24 | XMS_ITS | Encounter Summary ---
Author Organization [facility] [place] [facility] [place] [address] Care Team Providers Care Swimming Pool Maintenance Supervisor Name Role Phone Unknown Primary Care Provider Unavailabl e Encounter Details Date Type Department Care Team (Late st Contact Info) Description 02/18/2022 Telephone [place] [address] Jodi Glez Social History Tobacco Use Types Packs/Day Years [...] encounter Miscellaneous Notes * Telephone Encounter - Jodi Glez - 02/18/2022 1:42 PM EST Called [facility] as gastro received a referral/order? For a GES.. for GERD.. not sure if they want just a GES .. and if so then they need to send the order to radiology. If they want a referral here in gastro for a consult we can add referral then get patient scheduled. Patient also has other testing that she is/ has gotten done so not sure if that's part of all the confusion.. waiting to hear back I LVM on referral line documented in this encounter Plan of Treatment Not on file documented as of this encounter Visit Diagnoses Not on filedocumented in this encounter Care Teams Swimming Pool Maintenance Supervisor Relationship Specialty Start Date End Date Unknown None PCP - General 11/13/21 documented as of this encounter
--- OUTSIDE RECORDS SUMMARY | 2023-10-05 02:24 | XMS_ITS | Encounter Summary ---
[place] [address] Care Team Providers Care Precision Dancer Name Role Phone Gissell Davis APRN Primary Care Provider [phone] Reason for Visit * Reason Onset Date Comments Questions 04/28/2020 Encounter Details Date Type Department Care Team (Late st Contact Info) Description 04/28/2020 Telephone [place] [phone] Gonzalo Leon Questions Social History Tobacco Use [...] Miscellaneous Notes * Telephone Encounter - Gonzalo Leno - 04/28/2020 3:12 PM EST Triage Note Subjective: pt calls requesting transcript from 04/23/20 visit w/Dr. Sheffield be faxed to her referring providor, Dr. Rivas at [place], [place] PH: [phone] FAX: [phone] Plan: forward to clinical team for resolution Patient/Responsible republican voices an understanding of advice? yes Patient/Responsible republican intends to comply with action/disposition: yes documented in this encounter Plan of Treatment Not on file documented as of this encounter Visit Diagnoses Not on filedocumented in this encounter Care Teams Precision Dancer Relationship Specialty Start Date End Date Gissell Davis, [place] [address] [facility] [address] [place] [address] PCP - General Family Medicine 08/21/18 11/12/21 documented as of this encounter
--- OUTSIDE RECORDS SUMMARY | 2023-10-05 02:24 | XMS_ITS | Encounter Summary ---
Author Organization [facility] Address [address] [place] [address] Care Team Providers Care Biology Adjunct Instructor Name Role Phone Susan Gissell Katherine HAAS Primary Care Provider [phone] Encounter Details Date Type Department Care Team (Late st Contact Info) Description 04/07/2023 Lab Requisition [facility] Pathology & Laboratory Medicine - [address] [address] Outr Resulting Lab, Provider Social History Tobacco Use Types Packs/Day Years Used Date Smoking Tobacco: Never Assessed Interpersonal Safety Answer Date Record ed Physically Hurt Never 12/13/2019 Verbally Threaten Not on file 12/13/2019 Sex and Gender Information Value Date Recorded Sex Assigned at Not on file Gender Identity Not on file Sexual Orientation Not on file documented as of this encounter Plan of Treatment Not on file documented as of this encounter Procedures Procedure Name Priority Date/Time Associated Diagnosis Comments HEPATITIS C AB W REFLEX TO HCV RNA BY PCR Routine 04/07/2023 10:15 EST documented in this encounter Results * HEPATITIS C AB W REFLEX TO HCV RNA BY PCR (04/07/2023 10:15 EST) Hep C Antibody Negative Negative 04/07/2023 18:04 EST [facility] Blood VENOUS BLOOD / Unknown 04/07/2023 10:15 EST 04/07/2023 16:32 EST Provider Outr Resulting Lab CHEMISTRY & BLOOD GAS ORDERABLES [facility] [address] [place] [address] documented in this encounter Visit Diagnoses Not on filedocumented in this encounter Care Teams Biology Adjunct Instructor Relationship Specialty Start Date End Date Gissell Davis NP [address] [place] [phone] PCP - General 12/06/19 documented as of this encounter
--- OUTSIDE RECORDS SUMMARY | 2023-10-05 02:24 | XMS_ITS | Encounter Summary ---
[place] [address] Care Team Providers Care Retail Wireless Associate Name Role Phone Unknown Primary Care Provider Unavailabl e Reason for Visit * Diagnostic Test (Routine) - Closed Specialty Diagnoses / Procedures Referred By Contac t Referred To Contact Gastroenterology Diagnoses Heartburn HREM - heartburn see also ph imp Procedures High Resolution Esophageal Manometry HREM - heartburn Ward Rosa MD [address] [place] [phone] [facility] [address] [place] [address] Referral ID Status Reason Start Date Expiration Date V isits Requested Visits Authorized [id number] Closed Test Only 12/15/2021 12/15/2022 1 1 Encounter Details Date Type Department Care Team ([facility] Contact Info) Description 03/22/2022 8:00 AM EST Office [place] [address] Heartburn Social History Tobacco Use Types Packs/Day Years Used Date Smoking Tobacco: Never Smokeless Tobacco: Never Alcohol Use Standard Drinks/Week Comments Never 0 (1 standard drink = 0.6 oz pur e alcohol) Sex and Gender Information Value Date Recorded Sex Assigned at Not on file Gender Identity Not on file Sexual Orientation Not on file documented as of this encounter Progress Notes * Nellie Bazan RN - 03/22/2022 8:00 AM EST A description of the esophageal manometry procedure was provided to the patient. All questions wereanswered and the patient verbalized understanding. The HREM catheter was placed via the right naris without difficulty. The esophageal manometry procedure was performed and the catheter was removed. The patient tolerated the procedure well. Prior to placement of the impedance catheter, a description of the procedure was provided to patient. All questions were answered and the patient verbalized understanding. Written instructions were given to the patient as well. At 0820 the impedance catheter was placed in the right naris without difficulty. It was secured at 31 cm with tape. This study is being performed off acid suppressants, which was confirmed by the patient. * Gonzalo Dennis MD - 03/22/2022 8:00 AM EST Images from the original note were not included. HIGH-RESOLUTION ESOPHAGEAL MANOMETRY PROCEDURE NOTE Patient: Barbara Chapman Address: [address] [place] [address] : 1970 Date of service: 03/22/2022 Indication: Heartburn Procedure: The patient arrived after an overnight fast. After verbal consent, a Maki motility catheter with 36 circumferential sensors on 1 cm spacing with impedance sensors was inserted transnasally after application of topical anesthesia to the nasal passage. The catheter was positioned so that at least 2distal sensors were in the stomach and 2 proximal sensors were located above the UES. A 3-5 minute a cclimation period was provided followed by 10 wet swallows of 5 cc of water while supine. Normal values while supine: Upper esophageal sphincter residual pressure: < 12 mmHg Upper esophageal sphincter relaxation duration: > 480 msec Distal contractile integral (DCI): > 450 and < 8,000 mmHg x cm x s Distal latency time: > 4.5 sec Integrated EGJ relaxation pressure (IRP): < 15 mmHg Normal EGJ resting pressure (respiratory mean): 15-34 mmHg Findings: - Upper Esophageal Sphincter: normal mean residual pressure and relaxation duration - Body: 0% of swallows failed. 0% of swallows had premature contractions with shortened distal latency time. The remaining 100% of swallows were peristaltic, includin% of swallows with hypercontractility, 20% of swallows with weak peristalsis, and 0% of swallows with large breaks (>5 cm) in the 20mmHg isocontour line. - Esophagogastric Junction: Midpoint located 35 cm from the nares, and proximal extent located at 33 cm. The lower esophageal sphincter is located at the same level as the crural diaphragm. Normal resting pressure (mean 23 mmHg) and normal IRP in 90% of swallows (median 10.8 mmHg). - Bolus transit: Liquid boluses cleared in 80% of swallows. - Multiple rapid swallows: Peristaltic reserve: reduced (ratio of post-multiple rapid swallow DCI to median DCI on 10 supine swallows is <1.0) Deglutitive inhibition: normal deglutitive inhibition (DCI <100 mmHg*s*cm) during the maneuver Integrated relaxation pressure: 2 mmHg (normal <12 mmHg) - Rapid drink challenge: Esophageal body contractility: normal deglutitive inhibition (DCI <100 mmHg*s*cm) during the maneuver Integrated relaxation pressure: 0 mmHg (normal <12 mmHg) Questioned Documents Examiner swallow: Impressions based on [place] Classification v4.0: No evidence of a clinically significant disorder of peristalsis or EGJ outflow obstruction. *These findings assume that mechanical obstruction has been ruled out. Gonzalo Dennis MD, FRCPC Section of Gastroenterology and Hepatology [facility] [place] [address] V: [phone] F: [phone] CC/EC: Unknown None * Gonzalo Dennis MD - 03/22/2022 8:00 AM EST Catheter-based pH/impedance procedure report Patient: Barbara Chapman Address: [address] [place] [address] : 1970 Referring provider: Ward Rosa Date of service: 03/24/2022 Indication: Heartburn Procedure: The catheter was placed transnasally after topical anesthetic (1cc of 4% aerosol lidocaine and 1cc of 2% viscous lidocaine), with the esophageal pH sensor located 32cm from the nares, 5 cm above the manometrically identified lower esophageal sphincter. A gastric pH sensor was located 10 cm distal to the top of the lower esophageal sphincter. The patient was instructed to keep a diary of symptoms,and returned the next day for removal of the probe. Testing performed OFF acid-suppressive therapy. Analysis Duration Total (HH:MM): 7:57 Analysis Duration Upright (HH:MM): 7:57 Analysis Duration Supine (HH:MM): n/a Acid exposure time (AET): Total distal esophageal acid exposure time: 27.5 % of testing period Upright distal esophageal acid exposure time: 27.5 % of testing period Supine distal esophageal acid exposure time: n/a % of testing period [place]ter Score: 64.3 (normal: <14.7) Normal values for acid exposure time (AET) defined as the % of time with a pH <4 Conclusive evidence for pathologic reflux: AET >7.0% Borderline or inconclusive evidence for pathologic reflux: AET 4.0% to 7.0% Evidence against pathologic reflux: AET <4.0% Reflux symptom association (RSA): Symptom Index (SI) Symptom (# of occurrences) Acid Weak acid Nonacid All reflux Vomiting (1) 100% 0% 0% 100% Symptom Association Probability (SAP) Symptom (# of occurrences) Acid Weak acid Nonacid All reflux Vomiting 66.1% 0% 0% 47.9% Interpretation of reflux symptom association (RSA) Positive association: Symptom Associated Probability [SAP] > 95% AND Symptom Index [SI] > 50% No convincing association: Symptom Associated Probability [SAP] > 95% OR Symptom Index [SI] >50% No evidence of association: Symptom Associated Probability [SAP] < 95% AND Symptom Index [SI] < 50% Number of reflux events by impedance: 81 total (normal < 80) and 6 acidic (normal < 80) and 75 weakly acidic (normal < 80) Impression based on the [place] classification: Limited study duration noted (patient vomited up catheter) but this study does suggest pathologic acid reflux tested OFF medication. No convincing association between reflux and recorded symptoms of vomiting. However, definitive conclusions on reflux-symptom association are limited by the low number of recorded symptom events during the testing period. Evidence of elevated reflux burden measured by impedance. Consider repeat testing with MOYA probe if clinically indicated (and no contraindications) to hopefully achieve longer analysis duration. References: 1) Modern diagnosis of GERD: the [place] Consensus. Gut. 2018 Aug; 67(7): 3364-8622. 2) Validation of the [place] classification for GORD diagnosis: acid exposure time assessed by prolonged wireless pH monitoring in healthy controls and patients with erosive oesophagitis. Gut. 2020. doi10.1136/phbrif-4212-631749. Gonzalo Dennis MD, FRCPC Section of Gastroenterology and Hepatology [facility] [place] [address] V: [phone] F: [phone] CC/EC: Unknown None documented in this encounter Plan of Treatment Not on file documented as of this encounter Visit Diagnoses Diagnosis Heartburn documented in this encounter Care Teams Retail Wireless Associate Relationship Specialty Start Date End Date Unknown None PCP - General 11/13/21 documented as of this encounter
--- OUTSIDE RECORDS SUMMARY | 2023-10-05 02:24 | XMS_ITS | Encounter Summary ---
Author Organization [facility] [place] [address] Care Team Providers Care Investigation Lieutenant Name Role Phone Gissell Davis APRN Primary Care Provider [phone] Encounter Details Date Type Department Care Team (Late st Contact Info) Description 04/02/2019 [place] [phone] Stacey Leblanc MD [facility] [place] [place] [address] Social History Tobacco Use Types Packs/Day Years [...] encounter Miscellaneous Notes * Telephone Encounter - Magda Mccoy - 04/02/2019 12:39 PM EST Called PT- no answer, no VM. Calling regarding PT's canceled appointment with Dr Leblanc on 03/26- looking to reschedule. Will mail letter. documented in this encounter Plan of Treatment Not on file documented as of this encounter Visit Diagnoses Not on filedocumented in this encounter Care Teams Investigation Lieutenant Relationship Specialty Start Date End Date Gissell Davis APRN [address] [place] [address] PCP - General Family Medicine 08/21/18 11/12/21 documented as of this encounter
--- OUTSIDE RECORDS SUMMARY | 2023-10-05 02:24 | XMS_ITS | Encounter Summary ---
Author Organization [facility] [place] Address [address] [place] [address] Care Team Providers Care Drier And Evaporator Operator Name Role Phone Dean Carrillo Primary Care Provider Unavailab le Encounter Details Date Type Department Care Team (Late st Contact Info) Description 06/14/2010 Results Only [facility] - [facility] ([facility]) [address] [place] [address] Vignesh Mcpherson MD [address] [place] [address] Social History Tobacco Use Types Packs/Day Years Used Date Smoking Tobacco: Never Assessed Sex and Gender Information Value Date Recorded Sex Assigned at Not on file Gender Identity Not on file Sexual Orientation Not on file documented as of this encounter Plan of Treatment Not on file documented as of this encounter Procedures Procedure Name Priority Date/Time Associated Diagnosis Comments SURGICAL PATHOLOGY Routine 06/14/2010 0:00 EDT documented in this encounter Results * SURGICAL PATHOLOGY (06/14/2010 0:00 EDT) Pathology Report: SURGICAL PATHOLOGY REPORT ? Reports generated via electronic interface contain original data; ? however they are lacking the format of the original report. ? Caution should be taken when reading/interpreti ng unformatted reports. ? Name: ? CHAPMAN, BARBARA A ? Accession #: ? [id number] ? : ? 1970 (Age: 39) ??F ? Collect Date: ? 06/14/2010 ? Location: ? [facility] ? Receive Date: ? 06/14/2010 ? Provider: VIGNESH JAZARA MD ? Copy to: DEAN LIDIA PA ? Final Pathologic Diagnosis: ? A. ?Tonsil, left, tonsillectomy: ? 1. ?Reactive lymphoid hyperplasia. ?2. ?? 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 ? B. ?Tonsil, right, tonsillectomy: ? 1. ?Reactive lymphoid hyperplasia. ? 2. ? Colonization of crypts by Actinomyces-like microorganisms (sulfur ? granules). ? C. ?Uvula, excision: ? 1. ?Squamous-lined mucosa with skeletal muscle and prominent, benign, ?? underlying minor salivary glands (mucinous and serous). ? Document reviewed and electronically signed by: ? MATT LICEA MD ? Report ??Date: 06/16/2010 15:46 ? By the signature above, the attending physician certifies that he/she has ? personally conducted a gross and/or microscopic examination of the described ? specimens and rendered or confirmed the above diagnosis. ? Specimen(s) Received: ? A. ?Lt tonsil ? B. ? Rt tonsil ? C. ? Uvula ? Clinical History: ? Tonsil hypertrophy/upper airway obstruction ? Gross Description: ? Received in formalin labeled Chapman, Barbara and left tonsil is a ? guerra-pink, ovoid 3.2 x 2.4 x 1.4 cm soft tissue partially surfaced by a guerra, ? smooth to wrinkled mucosa. ??The cut surfaces are guerra-pink with a crypt-like ? architecture. ??There is a focal area of hemorrhage. ??Flight Security Specialist sections are submitted as (A1) and (A2). ? Received in formalin labeled Chapman, Barbara and right tonsil is a guerra-pink, ovoid, unoriented soft tissue measuring 3.4 x 2.2 x 1.3 cm and is partially ? surfaced by a guerra, smooth to wrinkled mucosa. ??The cut surfaces are guerra-pink ? with a crypt-like architecture. ??No discrete nodules are present. ??A ? bilingual inside sales representative section is submitted as (B). ? Received in formalin labeled Chapman, Barbara and uvula is a guerra-pink, ? triangular 1.2 x 0.6 x 0.5 cm soft tissue surfaced by a guerra smooth to wrinkled ?? mucosa. ??The cut surfaces are white and homogeneous. ??No definitive nodules ? present. ??A bilingual inside sales representative section is submitted as (C). (Suri Davis)/mpl ? End of Report ? [facility] 06/14/2010 06/14/2010 8:3 3 EDT Vignesh Mcpherson MD PATHOLOGY ORDERABLES Performing Organization Address City/State/[facility] Co de Phone Number [facility] [address] [place] [address] documented in this encounter Visit Diagnoses Not on filedocumented in this encounter Care Teams Drier And Evaporator Operator Relationship Specialty Start Date End Date Dean Carrillo PA PCP - General 01/28/10 01/02/11 documented as of this encounter
--- OUTSIDE RECORDS SUMMARY | 2023-10-05 02:24 | XMS_ITS | Encounter Summary ---
Author Organization [facility] Address [address] [place] [address] Care Team Providers Care Shock Absorption Floor Layer Name Role Phone Unknown, Provider Primary Care Provider [phone] Carla Lieberman MD Primary Care Provider Encounter Details Date Type Department Care Team (Late st Contact Info) Description 10/01/1999 Results Only [facility] - [facility] [address] [place] [address] Jeremi Barba MD [address] [place] [address] Social History Tobacco Use Types Packs/Day Years Used Date Smoking Tobacco: Never Assessed Sex and Gender Information Value Date Recorded Sex Assigned at Not on file Gender Identity Not on file Sexual Orientation Not on file documented as of this encounter Plan of Treatment Not on file documented as of this encounter Procedures Procedure Name Priority Date/Time Associated Diagnosis Comments SURGICAL PATHOLOGY Routine 10/01/1999 0:00 EDT documented in this encounter Results * SURGICAL PATHOLOGY (10/01/1999 0:00 EDT) Pathology Report: SURGICAL PATHOLOGY REPORT Reports generated via electronic interface contain original data; however they are lacking the format of the original report. Caution should be taken when reading/interpreti ng unformatted reports. Name: ? BARBARA CHAPMAN ? Accession #: ? [id number] ? : ? 1970 (Age: 29) ??F ? Collect Date: ? 10/01/1999 ? Location: ? [facility] ? Receive Date: ? 10/05/1999 ? Provider: JEREMI BARBA MD Copy to: CARLA PAYNE MD ? Final Pathologic Diagnosis: 1. ?Stomach, antrum, biopsy: ? - ??Suggestive of chemical gastritis. ??See comment. 2. ?Distal esophagus, biopsy: ? - ??Fragments of squamous and gastric type mucosa with mild chronic inflammation and architectural disarray. ??See comment. Comment: ? The biopsy from gastric antrum show elongated gastric pits, mild lamina propria fibrosis, and minimal active inflammation. ??The findings are suggestive of chemical gastritis. ??Ramana stains were performed on both specimens and no definite Helicobacter pylori-like micro-organisms identified. ??PAS alcian blue stain on the esophageal biopsy did not show intestinal metaplasia. ?? However, the presence of gastric mucosa raises the possibility of gastric sapling or, if truly in esophagus, the presence of Nolen's esophagus. ??Clinical correlation is recommended. ?? Dr. Pierre English also reviewed this case and concurs with the diagnosis. ??(Dr. Bucio)/nrm Document reviewed and electronically signed by: ADRIAN BUCIO MD Report ??Date: 10/07/1999 14:36 By the signature above, the attending physician certifies that he/she has personally conducted a gross and/or microscopic examination of the described specimens and rendered or confirmed the above diagnosis. Specimen(s) Received: ? A. ??Bx antrum B. ??Distal esophagus Clinical History: ? Nga fundoplication 3 y/a; recent N/V, hematuria; ? of stomach ulcer on upper GI series Gross Description: ? Received in Hollande's fixative labelled Cat and #1 bx of antrum is a guerra irregular 0.4 x 0.2 x 0.2 cm soft tissue fragment. ??The specimen is entirely submitted as (A). Received in Hollande's fixative labelled Cat and distal esophagus are two guerra-diaz irregular soft tissues measuring 0.3 x 0.2 x 0.2 cm and 0.5 x 0.2 x 0.2 cm. ??The specimens are entirely submitted as (B). ?? (Suri Davis)/dm End of Report [facility] 10/01/1999 10/05/1999 9:0 4 EDT Jeremi Barba MD PATHOLOGY ORDERABLE S [facility] [address] [place] [address] documented in this encounter Visit Diagnoses Not on filedocumented in this encounter Care Teams Shock Absorption Floor Layer Relationship Specialty Start Date End Date Unknown, Provider, PCP - General 07/17/08 01/27/10 Carla Lieberman MD [address] [place] [address] PCP - General 07/16/08 07/16/08 documented as of this encounter
--- OUTSIDE RECORDS SUMMARY | 2023-10-05 02:24 | XMS_ITS | Encounter Summary ---
Author Organization [facility] [place] [address] Care Team Providers Care Associate Drafter Name Role Phone SarthakGissell barriga Katherine YOU Primary Care Provider Encounter Details Date Type Department Care Team (Late st Contact Info) Description 05/04/2020 Tele[place] [phone] Anne Marie Soni RN Social History Tobacco Use Types Packs/Day [...] encounter Miscellaneous Notes * Telephone Encounter - Celeste Duval - 05/04/2020 10:58 AM EDT This is not a letter request, it is a request for Dr. Sheffield's 04/23 office note which is not signed yet. Anne Marie to discuss with Dr. Sheffield to get note signed. * Telephone Encounter - Anne Marie Soni RN - 05/04/2020 10:30 AM EDT Patient called again today requesting that the Letter from Dr. Sheffield get sent to dr. Rivas .Patient is concerned regarding an infection. Plan reach out to dr. Gamino's team. Anne Marie Soni RN [facility] Ortho Team documented in this encounter Plan of Treatment Not on file documented as of this encounter Visit Diagnoses Not on filedocumented in this encounter Care Teams Associate Drafter Relationship Specialty Start Date End Date Gissell Davis APRN [address] [place] [address] PCP - General Family Medicine 08/21/18 11/12/21 documented as of this encounter
--- OUTSIDE RECORDS SUMMARY | 2023-10-05 02:24 | XMS_ITS | Encounter Summary ---
Author Organization [facility] Address [address] [place] [address] Care Team Providers Care Frame Tender Name Role Phone Susan Gissell Katherine HAAS Primary Care Provider [phone] Encounter Details Date Type Department Care Team (Late st Contact Info) Description 12/09/2019 Lab Requisition [facility] Pathology & Laboratory Medicine - [address] [address] Anni Mast MD [address] [place], [place] [phone] Benign lipomatous neoplasm of skin and subcutaneous tissue of unspecified limb; Polyp of colon Social History Tobacco Use Types Packs/Day Years [...] Priority Date/Time Associated Diagnosis Comments SURGICAL PATHOLOGY Today 12/06/2019 13 :32 EDT Benign lipomatous neoplasm of skin and subcutaneous tissue of unspecified limb Polyp of colon documented in this encounter Results * SURGICAL PATHOLOGY (12/06/2019 13:32 EDT) Final Diagnosis A. COLON, HEPATIC FLEXURE, POLYP, BIOPSY: - Tubular adenoma. B. SOFT TISSUE OF ARM, RIGHT, ? LIPOMA? , EXCISIONAL BIOPSY: - Lipoma with focal fat necrosis. 12/12/2019 18:12 [facility] Attestation By the signature below, the attending physician certifies that they have 1) personally conducted a gross and/or microscopic examination of the described specimen(s), and/or personally interpreted the results of laboratory testing of the described specimen(s), and 2) personally rendered or confirmed the above diagnosis. 12/12/2019 18:12 [facility] at 1812 Clinical History Screening; Lipoma right arm 12/12/2019 18:12 T [facility] Gross Description A. Received in formalin labelled with proper patient identification (initials G, P) and hepatic flexure polyp are 2 fragments of guerra tissue; each measuring 0.2 x 0.2 x 0.2 cm. The specimens are submitted entirely in A1. B. Received in formalin labelled with proper patient identification (initials G, P) and lipoma right arm is an ovoid portion of pale yellow lobulated adipose tissue (4.2 x 3.3 x 1.2 cm). The outer surface has a smooth, intact translucent capsule, inked blue. The specimen is serially sectioned to show a homogeneous cut surface with no areas of hemorrhage or necrosis. Unclaimed Property Manager sections are submitted in B1-B3. JESUS MURILLO(ASC) 12/09/2019 10:05 12/12/2019 18:12 [facility] Performing Lab [facility] 12/12/2019 18:12 [facility] Scanned Images 12/12/2019 18:12 [facility] Tissue SOFT TISSUE / Unknown 12/06/2019 13:32 EDT 12/09/2019 7:45 EDT Tissue specimen (specimen) SOFT TISSUE / Unknown 12/06/2019 13:32 EDT 12/09/2019 7:45 EDT Anni Mast MD PATHOLOGY ORDERABLES [facility] [address] [place] [address] documented in this encounter Visit Diagnoses Diagnosis Benign lipomatous neoplasm of skin and subcutaneous tissue of unspecified limb Polyp of colon Benign neoplasm of colon documented in this encounter Care Teams Frame Tender Relationship Specialty Start Date End Date Gissell Davis, MUSSEL OPENER [address] [place] [phone] PCP - General 12/06/19 documented as of this encounter
--- OUTSIDE RECORDS SUMMARY | 2023-10-05 02:24 | XMS_ITS | Clinical Summary ---
Author Organization [facility] Address [address] [place] [address] Care Team Providers Care Elementary Principal Name Role Phone Gissell Davis NP Primary Care Provider [phone] Social History Tobacco Use Types Packs/Day Years Used Date Smoking Tobacco: Never Assessed Interpersonal Safety Answer Date Record ed Physically Hurt Never 12/13/2019 Verbally Threaten Not on file 12/13/2019 Sex and Gender Information Value Date Recorded Sex Assigned at Not on file Gender Identity Not on file Sexual Orientation Not on file Plan of Treatment Health Maintenance Due Date Last Done Comments Hepatitis B Vaccine (1 of 3 - 19+ 3-dose series) 07/03 COVID-19 Vaccine ( season) 2022 Hepatitis C Screen Completed 04/07/2023 Procedures Procedure Name Priority Date/Time Associated Diagnosis Comments HEPATITIS C AB W REFLEX TO HCV RNA BY PCR Routine 04/07/2023 10:15 EST from Last 3 Months or Most Recently Relevant to Health Maintenance Results * HEPATITIS C AB W REFLEX TO HCV RNA BY PCR (04/07/2023 10:15 EST) Hep C Antibody Negative Negative 04/07/2023 18:04 EST [facility] Blood VENOUS BLOOD / Unknown 04/07/2023 10:15 EST 04/07/2023 16:32 EST Provider Outr Resulting Lab CHEMISTRY & BLOOD GAS ORDERABLES [facility] [address] [place] [address] from Last 3 Months or Most Recently Relevant to Health Maintenance Care Teams Elementary Principal Relationship Specialty Start Date End Date Gissell Davis BANQUET WAITER/WAITRESS [address] [place] [phone] PCP - General 12/06/19
--- OUTSIDE RECORDS SUMMARY | 2023-10-05 02:24 | XMS_ITS | Encounter Summary ---
Author Organization [facility] Address [address] [place] [address] Care Team Providers Care Cone Runner Name Role Phone Unknown, Provider Primary Care Provider Encounter Details Date Type Department Care Team (Late st Contact Info) Description 02/17/2009 Orders Only [facility] - [facility] [address] [place], [place] [phone] Garett Barba, DO [address] [facility] [address] [place], [place] [phone] Social History Tobacco Use Types Packs/Day Years Used Date Smoking Tobacco: Never Assessed Sex and Gender Information Value Date Recorded Sex Assigned at Not on file Gender Identity Not on file Sexual Orientation Not on file documented as of this encounter Plan of Treatment Not on file documented as of this encounter Procedures Procedure Name Priority Date/Time Associated Diagnosis Comments SURGICAL PATHOLOGY Routine 02/17/2009 0:00 EST documented in this encounter Results * SURGICAL PATHOLOGY (02/17/2009 0:00 EST) Pathology Report: SURGICAL PATHOLOGY REPORT ? Reports generated via electronic interface contain original data; ? however they are lacking the format of the original report. ? Caution should be taken when reading/interpreti ng unformatted reports. ? Name: ? CHAPMAN, BARBARA A ? Accession #: ? [id number] ? : ? 1970 (Age: 38) ??F ? Collect Date: ? 02/17/2009 ? Location: ? [facility] ? Receive Date: ? 02/18/2009 ? Provider: GARETT BARBA DO ? Copy to: DEAN LIDIA PA ? Final Pathologic Diagnosis: ? Hernia sac, incisional, resection: ? - Fibroadipose, collagenous, and vascular tissue with focal granulation tissue, consistent with hernia ?sac. ? Document reviewed and electronically signed by: ? Bob Mckeon MD ? Report ??Date: 02/19/2009 12:27 ? By the signature above, the attending physician certifies that he/she has ? personally conducted a gross and/or microscopic examination of the described ? specimens and rendered or confirmed the above diagnosis. ? Specimen(s) Received: ? Incisional hernia sac ? Clinical History: ? Two incisional hernias ? Gross Description: ? Received in formalin labelled Chapman, Barbara and incisional hernia sac are two guerra-pink to yellow previously incised fibromembranous sac-like ? structures measuring 4.7 x 4.0 x 0.3 cm and 9.2 x 2.7 x 0.3 cm. ??The cut ? surfaces are guerra-pink to white, with no definitive nodules present. ??The ? specimens are serially sectioned and district sales representative sections are submitted, with the smaller as (A1) and larger as (A2). ??(Suri Horn/radha ? End of Report ? [facility] 02/17/2009 02/18/2009 9:2 0 EST Garett Barba DO PATHOLOGY ORDER TRE [facility] [address] [place] [address] documented in this encounter Visit Diagnoses Not on filedocumented in this encounter Care Teams Cone Runner Relationship Specialty Start Date End Date Unknown, Provider, PCP - General 07/17/08 01/27/10 documented as of this encounter
--- OUTSIDE RECORDS SUMMARY | 2023-10-05 02:24 | XMS_ITS | Encounter Summary ---
Author Organization [facility] [place] [address] Care Team Providers Care Technology Internship Name Role Phone Gissell Davis APRN Primary Care Provider [phone] Encounter Details Date Type Department Care Team (Late st Contact Info) Description 11/17/2020 Telephone [place] [address] Christopher Pillai Social History Tobacco Use Types Packs/Day Years [...] encounter Miscellaneous Notes * Telephone Encounter - Christopher Pillai - 11/17/2020 11:36 AM EDT Inbound/Outbound: Outbound Spoke to Patient/Left Message: Left message Notes: Outbound call to patient to schedule motility lab testing from referral. Left message askingfor callback to schedule. Return calls can be handled by: Motility Lab Rail Tractor Operator documented in this encounter Plan of Treatment Not on file documented as of this encounter Visit Diagnoses Not on filedocumented in this encounter Care Teams Technology Internship Relationship Specialty Start Date End Date Gissell Davis APRN [address] [place], [place] [address] PCP - General Family Medicine 08/21/18 11/12/21 documented as of this encounter
--- OUTSIDE RECORDS SUMMARY | 2023-10-05 02:24 | XMS_ITS | Encounter Summary ---
Author Organization [facility] Address [address] [place] [address] Care Team Providers Care Ethanol Maintenance Mechanic Name Role Phone Mary Carrillo Primary Care Provider Unavailab le Encounter Details Date Type Department Care Team (Latest Contact Info) Description 09/28/2016 11:13 EDT - 09/28/2016 23:59 EDT Hospital Encounter [address] [address] Unknown, Provider, Discharge Disposition: Home or Self Care Social History Tobacco Use Types Packs/Day Years Used Date Smoking Tobacco: Never Assessed Sex and Gender Information Value Date Recorded Sex Assigned at Not on file Gender Identity Not on file Sexual Orientation Not on file documented as of this encounter Discharge Disposition Disposition Code Departure Means Destination Home or Self Prison documented in this encounter Plan of Treatment Not on file documented as of this encounter Visit Diagnoses Not on filedocumented in this encounter Care Teams Ethanol Maintenance Mechanic Relationship Specialty Start Date End Date Mary Carrillo PA PCP - General 01/28/11 12/05/19 documented as of this encounter
--- OUTSIDE RECORDS SUMMARY | 2023-10-05 02:24 | XMS_ITS | Encounter Summary ---
Author Organization [facility] Address [address] [place] [address] Care Team Providers Care Supervisor Hand Workers Name Role Phone Mary Carrillo Primary Care Provider Unavailab le Encounter Details Date Type Department Care Team (Late st Contact Info) Description 07/19/2013 Results Only [facility] - [facility] ([facility]) [address] [place], [place] [phone] Garett Barba, DO [address] [facility] [address] [place] [address] Social History Tobacco Use Types Packs/Day [...] Date/Time Associated Diagnosis Comments SURGICAL PATHOLOGY Routine 07/19/2013 21 :32 EDT documented in this encounter Results * SURGICAL PATHOLOGY (07/19/2013 21:32 EDT) Pathology Report: SURGICAL PATHOLOGY REPORT Reports generated via electronic interface contain original data; however they are lacking the format of the original report. Caution should be taken when reading/interpreti ng unformatted reports. Name: ? BARBARA CHAPMAN ? Accession #: ? [id number] ? : ? 1970 (Age: 43) ??F ? Collect Date: ? 07/19/2013 ? Location: ? [facility] ? Receive Date: ? 07/19/2013 ? Provider: GARETT BARBA DO Copy to: DIANE REINOSO MD ? Final Pathologic Diagnosis: A. STOMACH, ANTRUM, BIOPSY: - ??Antral mucosa with chronic, focally active gastritis. - ??Immunohistochemi ana staining for H PYLORI (Rabbit Monoclonal (SP48) is negative. B. STOMACH, BODY, BIOPSY: - ??Gastric body mucosa with chronic gastritis and superimposed reactive gastropathy. - ??Immunohistochemi ana staining for H PYLORI (Rabbit Monoclonal (SP48) is negative. C. ESOPHAGUS, DISTAL, BIOPSY: - ??Squamocolumnar junctional mucosa with histologic features of reflux esophagitis. - ??Negative for intestinal metaplasia; Negative for dysplasia. ?? D. ESOPHAGUS, MID, BIOPSY: - ??Squamous mucosa with reactive changes and intraepithelial eosinophils. - ??Maximum eosinophil count equals 12 eosinophils per single high power field. E. ESOPHAGUS, PROXIMAL, BIOPSY: - ??Squamous mucosa with mild reactive changes. - ??Negative for intraepithelial eosinophils. Document reviewed and electronically signed by: MATT LICEA MD Report ??Date: 07/25/2013 12:52 By the signature above, the attending physician certifies that he/she has personally conducted a gross and/or microscopic examination of the described specimens and rendered or confirmed the above diagnosis. Specimen(s) Received: A. ?Antrum bxs B. ? Body of stomach bxs C. ? Distal esophagus bxs D. ? Mid esophagus bxs E. ? Proximal esophagus bxs Clinical History: Recurrent GERD on PPI Gross Description: A. ?Received in formalin labelled with proper patient identification (initials G, P) and antrum bxs are two pink-guerra tissues (0.4 x 0.3 x 0.2 cm and 0.6 x 0.2 x 0.7). Entirely submitted in A1. B. ?Received in formalin labelled with proper patient identification (initials G, P) and body of stomach bxs are two pink-guerra tissues (0.5 x 0.2 x 0.1 cm and 0.5 x 0.2 x 0.1 cm). Entirely submitted in B1. C. ?Received in formalin labelled with proper patient identification (initials G, P) and distal esophagus bxs are five guerra tissues (0.2 x 0.2 x less than 0.1 cm to 0.4 x 0.3 x 0.2 cm). Entirely submitted in C1-C2. D. ?Received in formalin labelled with proper patient identification (initials G, P) and esophagus bxs are two white tissues (0.3 x 0.3 x 0.1 cm and 0.3 x 0.3 x less than 0.1cm). Entirely submitted in D1. E. ?Received in formalin labelled with proper patient identification (initials G, P) and proximal esophagus bxs are two white tissues (0.5 x 0.2 x 0.1 cm and 0.4 x 0.3 x 0.1 cm). Entirely submitted in E1. ITimothy Junito 07/20/2013 10:49 AM End of Report [facility] 07/19/2013 21:3 2 EDT 07/19/2013 21:32 EDT Garett Barba DO PATHOLOGY ORDER TRE [facility] [address] [place] [address] documented in this encounter Visit Diagnoses Not on filedocumented in this encounter Care Teams Supervisor Hand Workers Relationship Specialty Start Date End Date Mary Carrillo PA PCP - General 01/28/11 12/05/19 documented as of this encounter
--- OUTSIDE RECORDS SUMMARY | 2023-10-05 02:24 | XMS_ITS | Encounter Summary ---
Author Organization [facility] Address [address] [place] [address] Care Team Providers Care Electronics Test Engineer Name Role Phone Mary Carrillo Primary Care Provider Unavailab le Encounter Details Date Type Department Care Team (Late st Contact Info) Description 11/14/2013 Results Only [facility] Laboratory Services - [facility] ([facility]) [address], [place] [id number] Mike Wade MD [address] [place] [phone] Social History Tobacco Use Types Packs/Day Years Used Date Smoking Tobacco: Never Assessed Sex and Gender Information Value Date Recorded Sex Assigned at Not on file Gender Identity Not on file Sexual Orientation Not on file documented as of this encounter Plan of Treatment Not on file documented as of this encounter Procedures Procedure Name Priority Date/Time Associated Diagnosis Comments SURGICAL PATHOLOGY Routine 11/14/2013 9 :48 EDT documented in this encounter Results * SURGICAL PATHOLOGY (11/14/2013 9:48 EDT) Pathology Report: SURGICAL PATHOLOGY REPORT Reports generated via electronic interface contain original data; however they are lacking the format of the original report. Caution should be taken when reading/interpreti ng unformatted reports. Name: ? BARBARA CHAPMAN ? Accession #: ? [id number] ? : ? 1970 (Age: 43) ??F ? Collect Date: ? 11/14/2013 ? Location: ? [facility] ? Receive Date: ? 11/15/2013 ? Provider: MIKE WADE MD Copy to: VANESSA THOMPSON PHYS THERAPIST ? Final Pathologic Diagnosis: GASTROESOPHAGEAL JUNCTION, BIOPSY: - ??Squamous mucosa with histologic features suggestive of reflux esophagitis. ?? - ??Negative for intestinal metaplasia; Negative for dysplasia. ?? Document reviewed and electronically signed by: MATT LICEA MD Report ??Date: 11/19/2013 17:21 By the signature above, the attending physician certifies that he/she has personally conducted a gross and/or microscopic examination of the described specimens and rendered or confirmed the above diagnosis. Specimen(s) Received: Bx GE junction Clinical History: Reflux Gross Description: ? Received in formalin labelled with proper patient identification (initials G, P) and GE junction biopsy are five guerra-white tissues (0.2 x 0.1 x 0.1 cm to 0.5 x 0.2 x 0.1 cm). ??Entirely submitted in 1 and 2. Alexus Young 11/15/2013 12:33 PM End of Report [facility] 11/14/2013 9:48 EDT 11/15/2013 9:48 EDT Mike Wade MD PATHOLOGY ORDERABLES [facility] [address] [place] [address] documented in this encounter Visit Diagnoses Not on filedocumented in this encounter Care Teams Electronics Test Engineer Relationship Specialty Start Date End Date Mary Carrillo PA PCP - General 01/28/11 12/05/19 documented as of this encounter
--- OUTSIDE RECORDS SUMMARY | 2023-10-05 02:24 | XMS_ITS | Encounter Summary ---
Author Organization [facility] Address [address] [place] [address] Care Team Providers Care Supervisor Capacitor Processing Name Role Phone Mary Carrillo Primary Care Provider Unavailab le Encounter Details Date Type Department Care Team (Late st Contact Info) Description 09/28/2016 Results Only [facility] [phone] Garett Barba, DO [address] [facility] [address] [place] [address] Social History Tobacco Use Types Packs/Day Years Used Date Smoking Tobacco: Never Assessed Sex and Gender Information Value Date Recorded Sex Assigned at Not on file Gender Identity Not on file Sexual Orientation Not on file documented as of this encounter Plan of Treatment Not on file documented as of this encounter Procedures Procedure Name Priority Date/Time Associated Diagnosis Comments SURGICAL PATHOLOGY Routine 09/28/2016 18 :04 EDT documented in this encounter Results * SURGICAL PATHOLOGY (09/28/2016 18:04 EDT) Pathology Report: SURGICAL PATHOLOGY REPORT Reports generated via electronic interface contain original data; however they are lacking the format of the original report. Caution should be taken when reading/interpretin g unformatted reports. Name: ? BARBARA CHAPMAN ? Accession #: ? [id number] ? : ? 1970 (Age: 46) ??F ? Collect Date: ? 09/28/2016 ? Location: ? [facility] ? Receive Date: ? 09/28/2016 ? Provider: GARETT BARBA DO Copy to: VANESSA THOMPSON MIXING TUMBLER OPERATOR ? Final Pathologic Diagnosis: A. DUODENUM, BIOPSY: - ??Duodenal mucosa with normal villous architecture and focal lymphangiectasia. B. STOMACH, ANTRUM, BIOPSY: - ??Gastric oxyntic mucosa with reactive (chemical) gastropathy and mild chronic inflammation. See comment. C. STOMACH, BODY, BIOPSY: - ??Gastric oxyntic mucosa with reactive (chemical) gastropathy. - ??No histological evidence of H. pylori on H&E stain. D. ESOPHAGUS, DISTAL, BIOPSY: - ??Squamous mucosa with features of mild reflux esophagitis. E. ESOPHAGUS, PROXIMAL, BIOPSY: - ??Squamous mucosa with mild basal cell hyperplasia. Comment: ----- Immunoperoxidase staining was performed on this case to further characterize the lesion. ? ANTIBODY(CLONE)(BLO CK):RESULT H. pylori (Rabbit Monoclonal (SP48), [place]) (B1): ??Negative ? NOTE: ??One or more of the reagents used in immunoperoxidase testing in this case may not have been cleared or approved by the U.S. Food and Drug Administration (FDA). ??The FDA has determined that such clearance or approval is not necessary. ??These tests are used for clinical purposes. ??They should not be regarded as investigational or for research. ??These reagents' performance characteristics have been determined by the [facility]. ??The positive and negative controls worked appropriately. ??If immunoperoxidase staining has been performed on alcohol fixed cytology specimens, which has not been fully validated, the assays should be interpreted with caution and correlated with clinical data. ??This laboratory is certified under the Clinical Laboratory Improvement Amendments of 1988 (CLIA-88) as qualified to perform high complexity clinical laboratory testing. ?? ___ Document reviewed and electronically signed by: MARY JONES MD Report ??Date: 09/30/2016 11:29 By the signature above, the attending physician certifies that he/she has personally conducted a gross and/or microscopic examination of the described specimens and rendered or confirmed the above diagnosis. Specimen(s) Received: A. ??Bxs duodenum B. ??Bxs antrum C. ??Bxs body of stomach D. ??Bxs distal esophagus E. ??Bxs proximal esophagus Clinical History: Abdominal pain Gross Description: A. ?Received in formalin labelled with proper patient identification (initials G, P) and 1. bxs duodenum are six light guerra tissues (0.3 x 0.2 x 0.1 cm to 0.7 x 0.2 x 0.1 cm). Entirely submitted in A1 and A2. B. ?Received in formalin labelled with proper patient identification (initials G, P) and 2. bxs antrum are three light guerra tissues (0.4 x 0.2 x 0.1 cm, 0.4 x 0.2 x 0.2 cm and 0.4 x 0.2 x 0.2 cm). Entirely submitted in B1. C. ?Received in formalin labelled with proper patient identification (initials G, P) and 3. bxs body of stomach are two light guerra speckled tissues (0.4 x 0.3 x 0.1 cm and 0.5 x 0.2 x 0.1 cm). Entirely submitted in C1. D. ?Received in formalin labelled with proper patient identification (initials G, P) and 4. bxs distal esoph are two white tissues (0.2 x 0.1 x 0.1 cm and 0.5 x 0.2 x 0.1 cm). Entirely submitted in D1. E. ?Received in formalin labelled with proper patient identification (initials G, P) and 5. bxs prox esoph are three white tissues (0.2 x 0.1 x 0.1 cm, 0.2 x 0.1 x 0.1 cm and 0.4 x 0.2 x 0.1 cm). Entirely submitted in E1. Rita Rivas 09/29/2016 8:13 AM End of Report [facility] 09/28/2016 18:0 4 EDT 09/28/2016 18:04 EDT Garett Barba DO PATHOLOGY ORDER TRE [facility] [address] [place] [address] documented in this encounter Visit Diagnoses Not on filedocumented in this encounter Care Teams Supervisor Capacitor Processing Relationship Specialty Start Date End Date Mary Carrillo PA PCP - General 01/28/11 12/05/19 documented as of this encounter
--- OUTSIDE RECORDS SUMMARY | 2023-10-05 02:24 | XMS_ITS | Encounter Summary ---
Author Organization [facility] Address [address] [place] [address] Care Team Providers Care Poultry Picking Machine Tender Name Role Phone Carla Reinoso MD Primary Care Provider [phone] Encounter Details Date Type Department Care Team (Late st Contact Info) Description 07/15/2008 Orders Only [facility] Laboratory Services - [facility] ([facility]) [address] [place], [place] [address] Garett Barba, [address] [facility] [address] [place], [place] [id number] Social History Tobacco Use Types Packs/Day Years Used Date Smoking Tobacco: Never Assessed Sex and Gender Information Value Date Recorded Sex Assigned at Not on file Gender Identity Not on file Sexual Orientation Not on file documented as of this encounter Plan of Treatment Not on file documented as of this encounter Procedures Procedure Name Priority Date/Time Associated Diagnosis Comments SURGICAL PATHOLOGY Routine 07/15/2008 0:00 EDT documented in this encounter Results * SURGICAL PATHOLOGY (07/15/2008 0:00 EDT) Pathology Report: SURGICAL PATHOLOGY REPORT ? Reports generated via electronic interface contain original data; ? however they are lacking the format of the original report. ? Caution should be taken when reading/interpreti ng unformatted reports. ? Name: ? CHAPMAN, BARBARA A ? Accession #: ? [id number] ? : ? 1970 (Age: 38) ??F ? Collect Date: ? 07/15/2008 ? Location: ? [facility] ? Receive Date: ? 07/16/2008 ? Provider: GARETT BARBA DO ? Copy to: CARLA REINOSO MD ? Final Pathologic Diagnosis: ? Esophagus, distal, biopsies: ? - Squamous mucosa with ulceration and acute inflammatory exudate. ? - Gastric cardia-type mucosa with foveolar hyperplasia and mild chronic ? inflammation. ??See comment. ? Comment: ? Deeper levels have been examined. ??PAS stain for fungal organism was ? performed however the area of interest was lost on deeper levels. No fungal ? forms were noted on H& E stain. (Dr. Lopez)/radha ? Document reviewed and electronically signed by: ? Keena Lopez MD ? Report ??Date: 07/18/2008 15:36 ? By the signature above, the attending physician certifies that he/she has ? personally conducted a gross and/or microscopic examination of the described ? specimens and rendered or confirmed the above diagnosis. ? Specimen(s) Received: ? Distal esophagus ? Clinical History: ? Dysphagia ??S/P redo Nga fundoplication; distal esophagitis; ? ??is there any gastric tissue in the specimen ? Gross Description: ? Received in Hollande's fixative labelled Chapman, Barbara and #1 distal ?? esophagus are three pieces of tissue which measure 0.5 x 0.3 x 0.2 cm, 0.5 x ?? 0.2 x 0.1 cm, and 0.2 x 0.1 x 0.1 cm. ??The specimens are submitted intact in one cassette. ??(Earlene Ramirez/radha ? End of Report ? [facility] 07/15/2008 07/16/2008 11: 33 EDT Garett Barba DO PATHOLOGY ORDER TRE [facility] [address] [place] [address] documented in this encounter Visit Diagnoses Not on filedocumented in this encounter Care Teams Poultry Picking Machine Tender Relationship Specialty Start Date End Date Carla Reinoso MD [address] [place], [place] [id number] PCP - General 07/16/08 07/16/08 documented as of this encounter
--- OUTSIDE RECORDS SUMMARY | 2023-10-05 02:24 | XMS_ITS | Encounter Summary ---
Author Organization [place] [address] Care Team Providers Care Double Surface Operator Name Role Phone Gissell Davis APRN Primary Care Provider Encounter Details Date Type Department Care Team (Late st Contact Info) Description 02/05/2019 [place] [id number] Stacey Leblanc MD [facility] [place] [place] [address] Social History Tobacco Use Types Packs/Day Years [...] * Telephone Encounter - Magda Mccoy - 02/05/2019 2:12 PM EST Per PT request, faxed US order to [facility] at [phone]. Asked them to please have done before 03/19/19 so that we have time to get the records. Asked them to please send the images and reports. documented in this encounter Plan of Treatment Not on file documented as of this encounter Visit Diagnoses Not on filedocumented in this encounter Care Teams Double Surface Operator Relationship Specialty Start Date End Date Gissell Davis APRN [address] [place] [address] PCP - General Family Medicine 08/21/18 11/12/21 documented as of this encounter
--- OUTSIDE RECORDS SUMMARY | 2023-10-05 02:24 | XMS_ITS | Encounter Summary ---
[place] [address] Care Team Providers Care Glost Placer Name Role Phone Unknown Primary Care Provider Unavailabl e Reason for Referral * Diagnostic Test (Routine) - Closed Specialty Diagnoses / Procedures Referred By Darwin martin Referred To Contact Gastroenterology Diagnoses Heartburn pH impedance OFF PPI - heartburn see also hrem Procedures pH Impedance - 24 Hour pH impedance OFF PPI - heartburn Ward Rosa MD [address] [place] [address] [facility] [address] [place] [address] Referral ID Status Reason Start Date Expiration Date V isits Requested Visits Authorized [id number] Closed Consult, Test & Treat 12/15/2021 12/15/2022 1 1 * Diagnostic Test (Routine) - Closed Specialty Diagnoses / Procedures Referred By Darwin martin Referred To Contact Gastroenterology Diagnoses Heartburn HREM - heartburn see also ph imp Procedures High Resolution Esophageal Manometry HREM - heartburn Ward Rosa MD [address] [place] [address] [facility] [address] [place] [address] Referral ID Status Reason Start Date Expiration Date V isits Requested Visits Authorized [id number] Closed Test Only 12/15/2021 12/15/2022 1 1 Encounter Details Date Type Department Care Team (Late st Contact Info) Description 12/15/2021 Transcribe Orders eDH Incoming Referrals [phone] Ward Rosa MD [facility] [facility] [address] [place] [address] Heartburn Social History Tobacco Use Types Packs/Day Years Used Date Smoking Tobacco: Never Smokeless Tobacco: Never Alcohol Use Standard Drinks/Week Comments Never 0 (1 standard drink = 0.6 oz pur e alcohol) Sex and Gender Information Value Date Recorded Sex Assigned at Not on file Gender Identity Not on file Sexual Orientation Not on file documented as of this encounter Plan of Treatment Scheduled Orders Name Type Priority Associated Diagnoses Orde r Schedule High Resolution Esophageal Manometry GI Routine Heartburn Expected: 12/15/2021 (Approximate), Expires: 06/16/2023 pH Impedance - 24 Hour GI Routine Heartburn Expected: 12/15/2021 (Approximate), Expires: 06/16/2023 documented as of this encounter Visit Diagnoses Diagnosis Heartburn documented in this encounter Care Teams Glost Placer Relationship Specialty Start Date End Date Unknown None PCP - General 11/13/21 documented as of this encounter
--- OUTSIDE RECORDS SUMMARY | 2023-10-05 02:24 | XMS_ITS | Encounter Summary ---
Author Organization [facility] Address [address] [place] [address] Care Team Providers Care Informatics Analyst Name Role Phone Mary Carrillo Primary Care Provider Unavailab Gissell Muñiz NP Primary Care Provider [phone] Encounter Details Date Type Department Care Team (Late st Contact Info) Description 08/19/2019 Lab Requisition [facility] Pathology & Laboratory Medicine - [facility] [address] [place], [place] [address] Outr Resulting Lab, Provider Social History Tobacco [...] Procedure Name Priority Date/Time Associated Diagnosis Comments ZZCOVID-19 TEST [facility] PCR Today 08/19/2019 9:51 EDT COVID-19 TESTING Routine 08/19/2019 9:51 EDT documented in this encounter Results * COVID-19 TEST [facility] PCR (08/19/2019 9:51 EDT) Swab ENTIRE NASOPHARYNX / Unknown 08/19/2019 9:51 EDT 08/19/2019 15:42 EDT Provider Outr Resulting Lab MICROBIOLOGY - GENERAL ORDERABLES [facility] [address] [place] [address] * COVID-19 TESTING (08/19/2019 9:51 EDT) COVID-19 rt-PCR Result Negative Negative 08/20/2019 0:[address] [facility] Comment: This test has not been FDA cleared or approved. This test has been authorized by FDA under an EUA for use by authorized laboratories. This test has been authorized only for detection of nucleic acid from 2019-nCoV, not for any other viruses or pathogens. This test is only authorized for the duration of the declaration that circumstances exist justifying the authorization of emergency use of in vitro diagnostic tests for detection and/or diagnosis of 2019-nCoV under section 564(b)(1) of Act, 21 U.S.C ?? 360bbb-3(b) (1), unless the authorization is terminated or revoked sooner. Negative results do not preclude 2019-nCoV infection and should not be used as the sole basis for treatment or other patient management decisions. Negative results must be combined with clinical observations, patient history, and epidemiological information. Performed on the [employer] [place] [employer] Fusion instrument Performing Lab [facility] 08/20/2019 0:[address] [facility] Swab 08/19/2019 9:51 EDT 08/19/2019 15:42 EDT Provider Outr Resulting Lab MICROBIOLOGY - GENERAL ORDERABLES [facility] [address] [place] [address] documented in this encounter Visit Diagnoses Not on filedocumented in this encounter Care Teams Informatics Analyst Relationship Specialty Start Date End Date Mary Carrillo PA PCP - General 01/28/11 12/05/19 Gissell Davis NP [address] [place] [phone] PCP - General 12/06/19 documented as of this encounter
--- OUTSIDE RECORDS SUMMARY | 2023-10-05 02:24 | XMS_ITS | Encounter Summary ---
Author Organization [facility] Address [address] [place] [address] Care Team Providers Care Charrer Name Role Phone Unknown, Provider Primary Care Provider [phone] Carla Reinoso MD Primary Care Provider Mary Carrillo Primary Care Provider Unavailab le Encounter Details Date Type Department Care Team (Late st Contact Info) Description 06/27/2006 Results Only [facility] [address] [place] [address] Garett Barba, DO [address] [facility] [address] [place] [address] Social History Tobacco Use Types Packs/Day Years Used Date Smoking Tobacco: Never Assessed Sex and Gender Information Value Date Recorded Sex Assigned at Not on file Gender Identity Not on file Sexual Orientation Not on file documented as of this encounter Plan of Treatment Not on file documented as of this encounter Procedures Procedure Name Priority Date/Time Associated Diagnosis Comments SURGICAL PATHOLOGY Routine 06/27/2006 0:00 EDT documented in this encounter Results * SURGICAL PATHOLOGY (06/27/2006 0:00 EDT) Pathology Report: SURGICAL PATHOLOGY REPORT Reports generated via electronic interface contain original data; however they are lacking the format of the original report. Caution should be taken when reading/interpreti ng unformatted reports. Name: ? BARBARA CHAPMAN ? Accession #: ? [id number] ? : ? 1970 (Age: 35) ??F ? Collect Date: ? 06/27/2006 ? Location: ? [facility] ? Receive Date: ? 06/27/2006 ? Provider: GARETT BARBA DO Copy to: CARLA REINOSO MD ? Final Pathologic Diagnosis: A. ?Stomach, antrum, biopsy: 1. ?Antral-type mucosa with no specific pathologic features. 2. ? No Helicobacter pylori-like microorganisms identified on H+E-stained sections. B. ?Esophagus, distal, biopsy: 1. ?Acute erosive esophagitis. ??See comment. Comment: ? Histologic sections of the esophagus (B) show hyperplastic squamous mucosa with acute inflammation, focal ulceration, granulation tissue and reactive epithelial changes. ??No viral cytopathic effect is identified. ??PAS-amylase is negative for fungal organisms. ??(Dr. Escalona)/[facility] ?? Document reviewed and electronically signed by: PRABHAKAR ESCALONA MD Report ??Date: 2006 10:45 By the signature above, the attending physician certifies that he/she has personally conducted a gross and/or microscopic examination of the described specimens and rendered or confirmed the above diagnosis. Specimen(s) Received: A. ?Bx antrum (#1) B. ? Bx distal esoph (#2) Clinical History: ? Dysphagia/reflux Gross Description: ? Received in Hollande' s fixative labelled Cat and bx antrum is a guerra-pink 0.5 x 0.2 x 0.2 cm soft tissue fragment. The specimen is entirely submitted as (A). Received in Hollande' s fixative labelled Cat and bx distal esophagus are two guerra-pink irregular soft tissue fragments measuring 0.2 x 0.2 x 0.2 cm and 0.3 x 0.2 x 0.2 cm. The specimen is entirely submitted as (B). (Suri Horn/silverio End of Report [facility] 06/27/2006 06/27/2006 1:0 5 EDT Garett Barba DO PATHOLOGY ORDER TRE [facility] [address] [place] [address] documented in this encounter Visit Diagnoses Not on filedocumented in this encounter Care Teams Charrer Relationship Specialty Start Date End Date Unknown, Provider, PCP - General 07/17/08 01/27/10 Carla Reinoso MD [address] [place] [address] PCP - General 07/16/08 07/16/08 Mary Carrillo PA PCP - General 01/28/10 01/02/11 documented as of this encounter
--- OUTSIDE RECORDS SUMMARY | 2023-10-05 02:24 | XMS_ITS | Encounter Summary ---
[place] [address] Care Team Providers Care Paving And Surfacing Labourer Name Role Phone Gissell Davis APRN Primary Care Provider Encounter Details Date Type Department Care Team (Late st Contact Info) Description 05/06/2019 Ancillary Procedure [place] [address] Gissell Davis APRN [address] [place] [address] Social History Tobacco Use Types Packs/Day Years [...] FILM LIBRARY STORAGE ONLY DX KNEE Routine 05/06/2019 12:00 AM EDT documented in this encounter Results * Film Library- Storage Only DX Knee (05/06/2019 12:00 AM EDT) Narrative [facility] - 03/17/2020 3:58 PM EST This exam is auto-finalizing. It's purpose is for storage only. Gissell Davis APRN [facility] FILM LIBRARY ORD ERABLES [facility] [place], [place] documented in this encounter Visit Diagnoses Not on filedocumented in this encounter Care Teams Paving And Surfacing Labourer Relationship Specialty Start Date End Date Gissell Davis APRN [address] [place] [address] PCP - General Family Medicine 08/21/18 11/12/21 documented as of this encounter
--- OUTSIDE RECORDS SUMMARY | 2023-10-05 02:24 | XMS_ITS | Encounter Summary ---
Author Organization [facility] Address [facility] [place] [address] Care Team Providers Care Filter Cleaner Name Role Phone Gissell Davis APRN Primary Care Provider Encounter Details Date Type Department Care Team (Latest Contact Info) Description 04/23/2020 11:53 AM EST - 04/23/2020 11:59 PM [facility] Hospital Encounter XRay at [address] [place] [address] Ward Sheffield MD [facility] [address] Chronic knee pain after total replacement of left knee joint Discharge Disposition: Home Social History Tobacco Use [...] Procedure Name Priority Date/Time Associated Diagnosis Comments XR KNEE STANDING ALIGNMENT AP LAT [place] SKYLINE LEFT Routine 04/23/2020 12:12 PM EST Chronic knee pain after total replacement of left knee joint documented in this encounter Results * XR Knee Standing Alignment AP Lat [place] Left (04/23/2020 12:12 PM EST) Anatomical Region Laterality Modality Left Digital Radiogra phy Impressions 04/23/2020 12:52 PM EST Status post bilateral total knee arthroplasty without radiographic finding of complication. Lower extremities have mild, left greater than right valgus alignment. Thank you for letting us participate in the care of this patient. For questions regarding this report, please contact the number below. ? Electronically signed by: Rekha Lara MD, [facility] ([phone]), at 04/23/2020 12:52 PM Narrative 04/23/2020 12:52 PM EST EXAMINATION: XR KNEE STANDING ALIGNMENT AP LAT [place] SKYLINE LEFT CLINICAL HISTORY: CHRONIC LT KNEE PAIN S/P LT TKA X MULT SURGERIES TECHNIQUE: Separate images of the pelvis, knees and feet were acquired in the AP projection with the patient standing. These images were stitched together to form a composite image of the pelvis and legs allowing for evaluation of lower extremity alignment in the weight bearing position. Bilateral AP, PA [place], skyline and left lateral radiographs are included. COMPARISON: Left knee radiographs December 22, 2017 and July 26, 2019; right knee radiographs May 06, 2019 FINDINGS: Survey: Bones are intact with normal mineralization. Spacing and alignment are preserved at the sacroiliac joints, hips, pubic symphysis and ankles. No focal soft tissue abnormality. Right knee: Total knee arthroplasty hardware is intact without adjacent lucency, change in position, periprosthetic fracture or joint malalignment. Left knee: Total knee arthroplasty revision hardware is intact without change in position, periprosthetic fracture or joint malalignment. Less than 2 mm lucency around the tibial plateau component is unchanged. No effusion. Alignment: Right mechanical axis passes through the lateral aspect of intercondylar notch. Left mechanical axis passes through the mesial margin of lateral compartment. Procedure Note Rekha Lara MD - 04/23/2020 EXAMINATION: XR KNEE STANDING ALIGNMENT AP LAT [place] SKYLINE LEFT CLINICAL HISTORY: CHRONIC LT KNEE PAIN S/P LT TKA X MULT SURGERIES TECHNIQUE: Separate images of the pelvis, knees and feet were acquired inthe AP projection with the patient standing. These images were stitched togetherto form a composite image of the pelvis and legs allowing for evaluation oflower extremity alignment in the weight bearing position. Bilateral AP, [place], skyline and left lateral radiographs are included. COMPARISON: Left knee radiographs December 22, 2017 and July 26, 2019; rightknee radiographs May 06, 2019 FINDINGS: Survey: Bones are intact with normal mineralization. Spacing and alignmentare preserved at the sacroiliac joints, hips, pubic symphysis and ankles. Nofocal soft tissue abnormality. Right knee: Total knee arthroplasty hardware is intact without adjacentlucency, change in position, periprosthetic fracture or joint malalignment. Left knee: Total knee arthroplasty revision hardware is intact withoutchange in position, periprosthetic fracture or joint malalignment. Less than 2 mmlucency around the tibial plateau component is unchanged. No effusion. Alignment: Right mechanical axis passes through the lateral aspect of intercondylarnotch. Left mechanical axis passes through the mesial margin of lateralcompartment. IMPRESSION Status post bilateral total knee arthroplasty without radiographic findingof complication. Lower extremities have mild, left greater than rightvalgus alignment. Thank you for letting us participate in the care of this patient. Forquestions regarding this report, please contact the number below. Electronically signed by: Rekha Lara MD, [facility]([phone]), at 04/23/2020 12:52 PM Ward Sheffield MD IMG DX ORDERABLES documented in this encounter Visit Diagnoses Diagnosis Chronic knee pain after total replacement of left knee joint documented in this encounter Care Teams Filter Cleaner Relationship Specialty Start Date End Date Gissell Davis, PLUMBING AND HEATING MECHANIC [address] [facility] [address] [place] [address] PCP - General Family Medicine 08/21/18 11/12/21 documented as of this encounter
--- OUTSIDE RECORDS SUMMARY | 2023-10-05 02:24 | XMS_ITS | Encounter Summary ---
Author Organization [facility] Address [address] [place] [address] Care Team Providers Care Tool Adjuster Name Role Phone Carla Lieberman MD Primary Care Provider [phone] Encounter Details Date Type Department Care Team (Late st Contact Info) Description 01/26/2011 Results Only [facility] [phone] Daniel Conti MD [address] [place] [address] Social History Tobacco Use Types Packs/Day Years Used Date Smoking Tobacco: Never Assessed Sex and Gender Information Value Date Recorded Sex Assigned at Not on file Gender Identity Not on file Sexual Orientation Not on file documented as of this encounter Plan of Treatment Not on file documented as of this encounter Procedures Procedure Name Priority Date/Time Associated Diagnosis Comments SURGICAL PATHOLOGY Routine 01/26/2011 0:00 EST documented in this encounter Results * SURGICAL PATHOLOGY (01/26/2011 0:00 EST) Pathology Report: SURGICAL PATHOLOGY REPORT Reports generated via electronic interface contain original data; however they are lacking the format of the original report. Caution should be taken when reading/interpreti ng unformatted reports. Name: ? BARBARA CHAPMAN ? Accession #: ? [id number] ? : ? 1970 (Age: 40) ??F ? Collect Date: ? 01/26/2011 ? Location: ? [facility] ? Receive Date: ? 01/26/2011 ? Provider: DANIEL CONTI MD Copy to: DEAN LEE ? Final Pathologic Diagnosis: ? Uterus, supracervical hysterectomy: 1. ?Endometrium: ? - Simple hyperplasia. - No cytologic atypia identified. ? 2. ?? Myometrium: ?- No pathologic features. 3. ?? Serosa: ?- No pathologic features. ?? Document reviewed and electronically signed by: DEISY HERNANDEZ MD Report ??Date: 01/31/2011 12:28 By the signature above, the attending physician certifies that he/she has personally conducted a gross and/or microscopic examination of the described specimens and rendered or confirmed the above diagnosis. Specimen(s) Received: ? Uterus supracervical Clinical History: ? Endometrial hyperplasia, simple, without atypia Gross Description: ? Received in formalin labelled Barbara Chapman and uterus is a 34 gram, 9.0 x 5.5 x 3.0 cm aggregate of morcellated uterine tissue. ??No components of the cervix or adnexal structures are present. ??The endometrium is pink-guerra, soft, lush, and focally shaggy and has a maximum thickness of 0.5 cm. ??The serosa is pink-guerra and smooth. ??The myometrium is pink-guerra, finely trabeculated, and there are no nodules identified within the myometrium. ??Sofa Inspector sections, including approximately 70% of the discernible endometrium, are submitted as follows: BLOCK MACK A1-A3 ?Endometrium to myometrium A4 ?Myometrium and serosa (Ankit Coughlin)/radha End of Report DAIN GOMEZ 01/26/2011 01/26/2011 17: 31 EST Daniel Conti MD PATHOLOGY ORDERABLES [facility] [address] [place] [address] documented in this encounter Visit Diagnoses Not on filedocumented in this encounter Care Teams Tool Adjuster Relationship Specialty Start Date End Date Carla Lieberman MD [address] [place], [place] [id number] PCP - General 01/03/11 01/27/11 documented as of this encounter
--- OUTSIDE RECORDS SUMMARY | 2023-10-05 02:24 | XMS_ITS | Referral Summary ---
Author Organization [facility] Address [address] [place] [address] Care Team Providers Care Decorating Machine Operator Name Role Phone Gissell Davis NP Primary Care Provider [phone] Social History Tobacco Use Types Packs/Day Years Used Date Smoking Tobacco: Never Assessed Interpersonal Safety Answer Date Record ed Physically Hurt Never 12/13/2019 Verbally Threaten Not on file 12/13/2019 Sex and Gender Information Value Date Recorded Sex Assigned at Not on file Gender Identity Not on file Sexual Orientation Not on file Plan of Treatment Not on file Procedures Procedure Name Priority Date/Time Associated Diagnosis Comments HEPATITIS C AB W REFLEX TO HCV RNA BY PCR Routine 04/07/2023 10:15 EST from Last 3 Months or Most Recently Relevant to Health Maintenance Results * HEPATITIS C AB W REFLEX TO HCV RNA BY PCR (04/07/2023 10:15 EST) Hep C Antibody Negative Negative 04/07/2023 18:04 EST [facility] Blood VENOUS BLOOD / Unknown 04/07/2023 10:15 EST 04/07/2023 16:32 EST Provider Outr Resulting Lab CHEMISTRY & BLOOD GAS ORDERABLES [facility] [address] [place] [address] from Last 3 Months or Most Recently Relevant to Health Maintenance Care Teams Decorating Machine Operator Relationship Specialty Start Date End Date Gissell Davis NP [address] [place] [phone] PCP - General 12/06/19
--- OUTSIDE RECORDS SUMMARY | 2023-10-05 02:24 | XMS_ITS | Encounter Summary ---
Author Organization [facility] Address [address] [place] [address] Care Team Providers Care Water Plumber Name Role Phone Mary Carrillo Primary Care Provider Unavailab le Encounter Details Date Type Department Care Team (Late st Contact Info) Description 03/18/2015 Results Only [facility] [phone] Garett Barba, DO [address] [facility] [address] [place] [address] Social History Tobacco Use Types Packs/Day Years Used Date Smoking Tobacco: Never Assessed Sex and Gender Information Value Date Recorded Sex Assigned at Not on file Gender Identity Not on file Sexual Orientation Not on file documented as of this encounter Plan of Treatment Not on file documented as of this encounter Procedures Procedure Name Priority Date/Time Associated Diagnosis Comments SURGICAL PATHOLOGY Routine 03/18/2015 20 :29 EST documented in this encounter Results * SURGICAL PATHOLOGY (03/18/2015 20:29 EST) Pathology Report: SURGICAL PATHOLOGY REPORT Reports generated via electronic interface contain original data; however they are lacking the format of the original report. Caution should be taken when reading/interpretin g unformatted reports. Name: ? BARBARA CHAPMAN ? Accession #: ? [id number] ? : ? 1970 (Age: 44) ??F ? Collect Date: ? 03/18/2015 ? Location: ? [facility] ? Receive Date: ? 03/18/2015 ? Provider: GARETT BARBA DO Copy to: VANESSA THOMPSON SITE SAFETY REPRESENTATIVE ? Final Pathologic Diagnosis: A. STOMACH, ANTRUM, BIOPSY: - ??Oxyntic and transitional mucosa with mild reactive gastropathy and inactive chronic inflammation. - ??No evidence of Helicobacter pylori by immunostaining. B. ESOPHAGUS, DISTAL, BIOPSY: - ??Cardia type mucosa with foveolar hyperplasia and pancreatic acinar metaplasia. ?? - ??Squamous mucosa with reflux esophagitis and up to 20 eosinophils per high power field. - ??No intestinal metaplasia or dysplasia identified. - ??See comment. C. ESOPHAGUS, PROXIMAL, BIOPSY: - ??Reactive squamous mucosa with up to 5 eosinophils per high power field. See comment. ?? Comment: D-C: Correlation with endoscopic and clinical features recommended to exclude possibility of eosinophilic esophagitis. H PYLORI (Rabbit Monoclonal (SP48), [place]) (A1): Negative NOTE: ??One or more of the reagents [...] reagents' performance characteristics have been determined by [facility]. ??The positive and negative controls worked appropriately. This laboratory is certified under the Clinical Laboratory Improvement Amendments of 1988 (CLIA-88) as qualified to perform high complexity clinical laboratory testing. ?? Document reviewed and electronically signed by: JAN PRUITT MD Report ??Date: 03/23/2015 16:36 By the signature above, the attending physician certifies that he/she has personally conducted a gross and/or microscopic examination of the described specimens and rendered or confirmed the above diagnosis. Specimen(s) Received: A. ??Antrum bxs B. ??Distal esophagus bxs C. ??Proximal esophagus bxs Clinical History: GERD on PPI Gross Description: A. ?Received in formalin labelled with proper patient identification (initials G, P) and antrum bx are two fragments of guerra-pink tissue (0.3 x 0.3 x 0.2 cm and 0.6 x 0.2 x 0.2 cm). The specimen is submitted entirely in A1. B. ?Received in formalin labelled with proper patient identification (initials G, P) and distal esophagus bx are three fragments of guerra-pink tissue (each 0.3 x 0.2 x 0.2 cm). The specimen is submitted entirely in B1. C. ?Received in formalin labelled with proper patient identification (initials G, P) and proximal esophagus bx are two fragments of guerra-white tissue (0.2 x 0.2 x 0.1 cm in 0.4 x 0.2 x 0.1 cm). The specimen is submitted entirely in C1. 03/19/2015 8:59 AM End of Report [facility] 03/18/2015 20:2 9 EST 03/18/2015 20:29 EST Garett Barba DO PATHOLOGY ORDER TRE [facility] [address] [place] [address] documented in this encounter Visit Diagnoses Not on filedocumented in this encounter Care Teams Water Plumber Relationship Specialty Start Date End Date Mary Carrillo PA PCP - General 01/28/11 12/05/19 documented as of this encounter
--- OUTSIDE RECORDS SUMMARY | 2023-10-05 02:24 | XMS_ITS | Encounter Summary ---
Author Organization [facility] Address [address] [place] [address] Care Team Providers Care Supervisor Continuous Weld Pipe Mill Name Role Phone Mary Carrillo Primary Care Provider Unavailab le Encounter Details Date Type Department Care Team (Latest Contact Info) Description 03/18/2015 17:53 EST - 03/18/2015 23:59 EST Hospital Encounter [address] [address] Unknown, Provider, Discharge Disposition: Home or Self Care Social History Tobacco Use Types Packs/Day Years Used Date Smoking Tobacco: Never Assessed Sex and Gender Information Value Date Recorded Sex Assigned at Not on file Gender Identity Not on file Sexual Orientation Not on file documented as of this encounter Discharge Disposition Disposition Code Departure Means Destination Home or Self Correction documented in this encounter Plan of Treatment Not on file documented as of this encounter Visit Diagnoses Not on filedocumented in this encounter Care Teams Supervisor Continuous Weld Pipe Mill Relationship Specialty Start Date End Date Mary Carrillo PA PCP - General 01/28/11 12/05/19 documented as of this encounter
--- OUTSIDE RECORDS SUMMARY | 2023-10-05 02:24 | XMS_ITS | Encounter Summary ---
Author Organization [facility] Address [address] [place] [address] Care Team Providers Care Gang Boss Name Role Phone Mary Carrillo Primary Care Provider Unavailab le Encounter Details Date Type Department Care Team (Latest Contact Info) Description 07/19/2013 15:29 EDT - 07/19/2013 23:59 EDT Hospital Encounter [address] [address] Unknown, Provider, Discharge Disposition: Home or Self Care Social History Tobacco Use Types Packs/Day Years Used Date Smoking Tobacco: Never Assessed Sex and Gender Information Value Date Recorded Sex Assigned at Not on file Gender Identity Not on file Sexual Orientation Not on file documented as of this encounter Discharge Disposition Disposition Code Departure Means Destination Home or Self Long-Term documented in this encounter Plan of Treatment Not on file documented as of this encounter Visit Diagnoses Not on filedocumented in this encounter Care Teams Gang Boss Relationship Specialty Start Date End Date Mary Carrillo PA PCP - General 01/28/11 12/05/19 documented as of this encounter
--- OUTSIDE RECORDS SUMMARY | 2023-10-05 02:24 | XMS_ITS | Encounter Summary ---
Author Organization [facility] Address [address] [place] [address] Care Team Providers Care Retail Client Solutions Consultant Name Role Phone Unknown, Provider Primary Care Provider [phone] Carla Lieberman MD Primary Care Provider [phone] Encounter Details Date Type Department Care Team (Late st Contact Info) Description 05/04/2006 Results Only [facility] [address] [place] [address] Dean Carrillo PA Social History Tobacco Use Types Packs/Day Years Used Date Smoking Tobacco: Never Assessed Sex and Gender Information Value Date Recorded Sex Assigned at Not on file Gender Identity Not on file Sexual Orientation Not on file documented as of this encounter Plan of Treatment Not on file documented as of this encounter Procedures Procedure Name Priority Date/Time Associated Diagnosis Comments CYTOPATHOLOGY Routine 05/04/2006 0:00 EDT documented in this encounter Results * CYTOPATHOLOGY (05/04/2006 0:00 EDT) Pathology Report: CYTOPATHOLOGY REPORT Reports generated via electronic interface contain original data; however they are lacking the format of the original report. Caution should be taken when reading/interpreti ng unformatted reports. Name: ? BARBARA CHAPMAN ? Accession #: ? [id number] : ? 1970 (Age: 35) ??F ?Collect Date: ? 05/04/2006 Location: ? [facility] ? Receive Date: ? 05/08/2006 Provider: ?DEAN LEE Copy to: ? Specimen/Source: ?ThinPrep Pap Test, Cervix/Endocervix, processed on [employer] ThinPrep Imaging System, with manual evaluation Last Menstrual Period: ? 02/26 Treatment History: ? Miscellaneous treatment: D & C Other: ? HPVA - HPV testing requested if ASC-US on the current ThinPrep Pap test. ? SPECIMEN ADEQUACY ? Satisfactory for Evaluation - transformation zone component present GENERAL CATEGORIZATION ? Negative for Intraepithelial Lesion or Malignancy ? Document reviewed and electronically signed by: ? MELINDA Leal(ASCP) ? Report Date: ??05/09/2006 10:59 End of Report DAIN GOMEZ 05/04/2006 05/08/2006 Dean LEE PATHOLOGY ORDERABLES Performing Organization Address City/State/[facility] Co de Phone Number DAIN GOMEZ [address] [place] [address] documented in this encounter Visit Diagnoses Not on filedocumented in this encounter Care Teams Retail Client Solutions Consultant Relationship Specialty Start Date End Date Unknown, Provider, PCP - General 07/17/08 01/27/10 Carla Lieberman MD [address] [place] [id number] PCP - General 07/16/08 07/16/08 documented as of this encounter
--- OUTSIDE RECORDS SUMMARY | 2023-10-05 02:24 | XMS_ITS | Clinical Summary ---
Author Organization Formerly [facility] Address [facility] [place] [address] Care Team Providers Care Special Officer Name Role Phone Unknown Primary Care Provider Unavailabl e Allergies Active Allergy Reactions Criticality Noted Date Comments Codeine Phosphate Erythromycin Base Gloves, Latex Latex Latex Dams Medications Medication Sig Dispensed Refills Start Date End Date Status montelukast (SINGULAIR) 10 mg tablet 03/18/2010 Active cetirizine (ZYRTEC) 10 mg tablet 03/18/2010 Active LEVALBUTEROL HCL (XOPENEX INHL) 03/18/2010 Active FLUTICASONE/SALMET DWIGHT (ADVAIR HFA INHL) 03/18/2010 Active sucralfate (CARAFATE) 1 gram tablet 03/18/2010 Active PROPRANOLOL HCL (PROPRANOLOL ORAL) 03/18/2010 Active FLUoxetine (PROZAC) 20 mg capsule 03/18/2010 Active amitriptyline (ELAVIL) 25 mg tablet 03/18/2010 Active trimethobenzamide (TIGAN) 300 mg capsule 300 MG = 1 Capsule(s), PO, Three times daily 03/18/2010 Active albuterol (PROVENTIL) 2.5 mg /3 mL (0.083 %) nebulizer solution Take 2.5 mg by nebulization nightly. 07/08/2010 Active traMADol (ULTRAM) 50 mg tablet Take 50 mg by mouth daily. 1-2 tablets daily 07/08/2010 Active HYDROmorphone (DILAUDID) 2 mg tablet Take by mouth daily. Takes 1-2 tablets daily 07/08/2010 Active OXYcodone-acetamin ophen (PERCOCET) 5-325 mg per tablet Take 1 tablet by mouth daily as needed. 07/08/2010 Active FLUoxetine (PROZAC) 40 mg Capsule Daily. Active rifAMPin (RIFADIN) 300 mg Capsule Every 12 hours. Activ e gabapentin (NEURONTIN) 300 mg Capsule Every 8 hours. Active metFORMIN (GLUCOPHAGE) 1,000 mg Tablet Every 12 hours. Active Magnesium Oxide 500 mg Tablet TAKE ONE TABLET BY MOUTH EVERY DAY 3 07/20/2018 Active acetaminophen (TYLENOL) 500 mg Tablet Take 2 tablets by mouth every 6 hours as needed for Pain. Do not exceed 4000 mg per 24 hours. 30 tablet 1 10/16/2018 Active cephALEXin (KEFLEX) 250 mg Capsule Take 1 capsule by mouth 3 times daily. 10/17/2018 Active tamsulosin (FLOMAX) 0.4 mg Capsule Take 1 capsule by mouth daily. 60 tablet 2 11/16/2018 Active phenazopyridine (PYRIDIUM) 200 mg Tablet Take 1 tablet by mouth 3 times daily as needed for Pain. 9 tablet 12/28/2018 Active cholecalciferol, Vitamin D3, 50 mcg (2,000 unit) Capsule Daily. 05/19/2015 Active ferrous sulfate 325 mg (65 mg iron) Tablet Take by mouth. 05/28/2019 Active Lactase 9,000 unit Tablet Daily. 09/05/2016 Active nystatin (MYCOSTATIN) Cream nystatin 100,000 unit/gram topical cream APPLY TO THE AFFECTED AREA(S) BY TOPICAL ROUTE 2 TIMES PER DAY 05/02/2017 Active triamcinolone (ARISTOCORT) 0.5 % Cream APPLY THIN LAYER ONCE DAILY TO HANDS AND ARM NEEDED 04/08/2020 Active Active Problems Problem Noted Date Diagnosed Date Bilateral nephrolithiasis 10/15/2018 Gastroesophageal reflux 08/21/2018 Asthma 08/21/2018 Anxiety 08/21/2018 Depression 08/21/2018 Infection of prosthetic left knee joint 08/22/19 19 Diabetes mellitus 08/21/2018 Migraines 08/21/2018 Immunizations Name Administration Dates Next Due Influenza Vaccine, Whole 01/16/2006 Social History Tobacco Use Types Packs/Day Years Used Date Smoking Tobacco: Never Smokeless Tobacco: Never Alcohol Use Standard Drinks/Week Comments Never 0 (1 standard drink = 0.6 oz pur e alcohol) Sex and Gender Information Value Date Recorded Sex Assigned at Not on file Gender Identity Not on file Sexual Orientation Not on file Last Filed Vital Signs Vital Sign Reading Time Taken Comments Blood Pressure 119/80 04/23/2020 1:00 PM EST Pulse 87 04/23/2020 1:00 PM EST Temperature 36.1 ??C (97 ??F) 01/24/2019 10:14 AM EST Respiratory Rate 20 01/24/2019 10:34 AM EST Oxygen Saturation 98% 01/24/2019 10:34 AM EST Inhaled Oxygen Concentration - - Weight 84.8 kg (187 lb) 04/23/2020 1:00 PM EST Height 160 cm (5' 3) 04/23/2020 1:00 PM EST Body Mass Index 33.13 04/23/2020 1:00 PM EST Plan of Treatment Health Maintenance Due Date Last Done Comments CT Colonography 1969 Colonoscopy 1969 Colorectal Cancer Screening 1969 FIT DNA 1969 FIT 1969 Sigmoidoscopy (10 year) with FIT yearly 1969 Sigmoidoscopy 1969 Pneumococcal Vaccine: At-Ris k 5-64yrs (1 of 2 - PCV) 07/04/1975 DM Opthalmology Exam 07/04/1979 DM Urine Microalbumin yearly 07/04/1979 HIV screen 07/04/1987 Hepatitis C Screening 07/04/1987 Lipid Screening 07/04/1987 Hepatitis B vaccine (0-59 yrs) (1) 1988 Tdap adult 1988 Tetanus vaccine 1988 HPV test 07/04/1999 PAP Smear 07/04/1999 Breast Cancer Share Decision Needed 2009 Breast Cancer screening 2009 DM Hemoglobin A1c 06/16/2010 03/18/2010 Zoster vaccine (1 of 2) 07/04/2019 DM Creatinine yearly 10/18/2019 10/17/2018, 10/15/2018, 03/18/2010 Covid-19 Vaccine (1 - 2022-24 season) 2022 Influenza (Flu) vaccine (1 o f 1 - Influenza standard series) 10/22/2023 01/16/2006 Medical Devices Explanted Type Area Tool Room Attendant Device Identifier Shelf Expiration Date Model / Serial / Lot Stent,Contour -Vl,2lmb78-11 cm ([id number]) - [id number] Implanted:Qty : 1 on 10/16/2018 by Nena Edwards MD at [facility] Explanted:Qty : 1 on 11/16/2018 by Nena Ace MD at [facility] IMPLANTS Left: Ureter [employer] 05/21/2021 [id number] 60 / / [id number] Stent,Contour -Vl,1ymc05-11 cm ([id number]) - [id number] Implanted:Qty : 1 on 10/16/2018 by Nena Edwards MD at [facility] Explanted:Qty : 1 on 11/16/2018 by Nena Ace MD at [facility] IMPLANTS Right: Ureter [employer] 06/20/2021 [id number] 60 / / [id number] Stent,Uret,Un iv,Soft,7fr,2 8cm ([id number]) - [id number] Implanted:Qty : 1 on 11/16/2018 by Nena Ace MD at [facility] Explanted:Qty : 1 on 12/28/2018 by Nena Ace MD IMPLANTS Left: Ureter [employer] 05/15/2021 [id number] 40 / / [id number] Stent,Uret,Un iv,Soft,7fr,2 8cm ([id number]) - [id number] Implanted:Qty : 1 on 11/16/2018 by Nena Ace MD at [facility] Explanted:Qty : 1 on 12/28/2018 by Nena Ace MD IMPLANTS Right: Ureter [employer] 2021 [id number] 40 / / [id number] Stent,Uret,Un iv,Soft,8fr,2 6cm ([id number]) - [id number] Implanted:Qty : 1 on 12/28/2018 by Nena Ace MD at [facility] Explanted:Qty : 1 on 01/24/2019 by Stacey Leblanc MD IMPLANTS Right: Ureter [employer] 08/19/2021 [id number] 30 / / [id number] Stent,Contour ,[id number] ([id number]) - [id number] Implanted:Qty : 1 on 01/24/2019 by Stacey Leblanc MD at [facility] Explanted:Qty : 1 on 02/04/2019 by Stacey Leblanc MD IMPLANTS Right: Ureter [employer] 10/10/2021 [id number] 30 / / [id number] Procedures Procedure Name Priority Date/Time Associated Diagnosis Comments HC VENIPUNCTURE Routine 10/17/2018 5:08 AM EDT HEMOGLOBIN A1C Routine 03/18/2010 9:16 AM EST from Last 3 Months or Most Recently Relevant to Health Maintenance Results * (ABNORMAL) Basic Metabolic Panel (non-fasting) (10/17/2018 5:08 AM EDT) Glucose 110 65 - 199 mg/dL [facility] Comment:Diabetes: >=200 mg/d L plus symptoms Blood Urea Nitrogen 16 8 - 18 mg/dL [facility] Creatinine 1.95(H) 0.70 - 1.20 mg/dL [facility] Comment:result rechecked-ssd Sodium 141 135 - 145 mmol/L [facility] Potassium 3.3(L) 3.5 - 5.0 mmol/L [facility] Comment: Please note: ??Patients with WBC >100,000 may have falsely elevated Potassium levels. ??For accurate Potassium quantification in these patients send serum separator tube (gold top) for subsequent determinations. ??Contact the Clinical Chemistry Laboratory if there are any questions. Chloride 104 98 - 107 mmol/L [facility] Carbon Dioxide 26 22 - 31 mmol/L [facility] Anion Gap 11 5 - 15 mmol/L [facility] Calcium 8.7 8.5 - 10.5 mg/dL [facility] Est Glomerular Filtration Rate 29(L) >=60 mL/min/1. 73 m?? [facility] Comment: The eGFR was calculated using the CKD-EPI equation. As with all creatinine based estimates of kidney function, eGFR values calculated with the CKD-EPI equation are not accurate in patients with acute kidney failure, extremes of body mass or the acutely ill. http://exoro system/[facility]ENNEnkf eGFR 34(L) >=60 mL/min/1. 73 m?? [facility] Comment: The eGFR was calculated using the CKD-EPI equation. As with all creatinine based estimates of kidney function, eGFR values calculated with the CKD-EPI equation are not accurate in patients with acute kidney failure, extremes of body mass or the acutely ill. http://exoro system/[facility]nkf Blood specimen (specimen) 10/17/2018 5:08 AM EDT 10/17/2018 5:22 AM EDT Narrative Resulting Agency Comment Spec In Lab Nena Ace MD CHEMISTRY ORDERABLES [facility] [place] [address] * HEMOGLOBIN A1C (03/18/2010 9:16 AM EST) Hemoglobin A1c 5.6 4.3 - 6.1 % [facility] Estimated Average Glucose 114 mg/dL [facility] Comment: eAG equivalents for HbA1c percentages: HbA1c(%) ?eAG(mg/dL) 6.0 ?126 6.5 ?140 7.0 ?154 7.5 ?169 8.0 ?183 8.5 ?197 9.0 ?212 9.5 ?226 10.0 ? 240 Limitations: The eAG calculation has not been validated on women, individuals below 18 years old and above 70 years old, and individuals with hemoglobinopathies. Additional resources are available on the ADA website: ??http://professional.diabetes.org/glucosecalculator.aspx Reference: Anson ALVES, Margarito J, Sohail R, et al. ??Translating the A1C assay into estimated average glucose values. ??Diabetes Care 2008:31(8):7379-2976. Blood specimen (specimen) 03/18/2010 9:16 AM EST 03/18/2010 9:30 AM EST Ash Pinto MD CHEMISTRY ORDERABLES [facility] from Last 3 Months or Most Recently Relevant to Health Maintenance Advance Directives Documents on File Type Date Recorded Patient Fitter Hand Expl anation Advance Directives and Livin g Will 10/18/2018 9:28 AM 06/17/16 * Full Code (Latest Code Status on File) Date Activated Date Inactivated Comments 01/24/2019 7:38 AM 01/24/2019 11:01 AM Question Answer Comments Does patient have capacity to make decision: Yes * Full Code Date Activated Date Inactivated Comments 12/28/2018 9:03 AM 12/28/2018 4:26 PM Question Answer Comments Does patient have capacity to make decision: Yes * Full Code Date Activated Date Inactivated Comments 11/16/2018 9:18 AM 11/16/2018 4:15 PM Question Answer Comments Does patient have capacity to make decision: Yes * Full Code Date Activated Date Inactivated Comments 10/15/2018 3:18 PM 10/17/2018 12:14 PM Question Answer Comments Does patient have capacity to make decision: Yes Care Teams Special Officer Relationship Specialty Start Date End Date Unknown None PCP - General 11/13/21
--- OUTSIDE RECORDS SUMMARY | 2023-10-05 02:24 | XMS_ITS | Encounter Summary ---
Author Organization [facility] Address [address] [place] [address] Care Team Providers Care Iron Molder Helper Name Role Phone Mary Carrillo Primary Care Provider Unavailab le Encounter Details Date Type Department Care Team (Latest Contact Info) Description 11/14/2013 13:16 EDT - 11/14/2013 23:59 EDT Hospital Encounter [address] [address] Unknown, Provider, Discharge Disposition: Home or Self Care Social History Tobacco Use Types Packs/Day Years Used Date Smoking Tobacco: Never Assessed Sex and Gender Information Value Date Recorded Sex Assigned at Not on file Gender Identity Not on file Sexual Orientation Not on file documented as of this encounter Discharge Disposition Disposition Code Departure Means Destination Home or Self Jail documented in this encounter Plan of Treatment Not on file documented as of this encounter Visit Diagnoses Not on filedocumented in this encounter Care Teams Iron Molder Helper Relationship Specialty Start Date End Date Mary Carrillo PA PCP - General 01/28/11 12/05/19 documented as of this encounter
--- OUTSIDE RECORDS SUMMARY | 2023-10-05 02:24 | XMS_ITS | Encounter Summary ---
Author Organization [facility] Address [address] [place] [address] Care Team Providers Care Perennial House Manager Name Role Phone Unknown, Provider Primary Care Provider Carla Reinoso MD Primary Care Provider [phone] Mary Carrillo Primary Care Provider Unavailab le Encounter Details Date Type Department Care Team (Late st Contact Info) Description 03/10/2005 Results Only [facility] [address] [place] [address] Taylor Zayas MD [address] [place] [address] [place] [address] Social History Tobacco Use Types Packs/Day Years Used Date Smoking Tobacco: Never Assessed Sex and Gender Information Value Date Recorded Sex Assigned at Not on file Gender Identity Not on file Sexual Orientation Not on file documented as of this encounter Plan of Treatment Not on file documented as of this encounter Procedures Procedure Name Priority Date/Time Associated Diagnosis Comments SURGICAL PATHOLOGY Routine 03/10/2005 0:00 EST documented in this encounter Results * SURGICAL PATHOLOGY (03/10/2005 0:00 EST) Pathology Report: SURGICAL PATHOLOGY REPORT Reports generated via electronic interface contain original data; however they are lacking the format of the original report. Caution should be taken when reading/interpreti ng unformatted reports. Name: ? BARBARA CHAPMAN ? Accession #: ? [id number] ? : ? 1970 (Age: 34) ??F ? Collect Date: ? 03/10/2005 ? Location: ? [facility] ? Receive Date: ? 03/11/2005 ? Provider: TAYLOR ZAYAS MD Copy to: CARLA REINOSO MD ? Final Pathologic Diagnosis: ? Endometrium, biopsy: 1. ?Fragments of lower uterine segment/endocervic al mixed-type polyp. 2. ?Inactive to weakly secretory endometrium with breakdown consistent with exogenous hormone effect. ?? 3. ?No cytologic atypia identified. Document reviewed and electronically signed by: MARIAM DUKE MD Report ??Date: 03/14/2005 16:02 By the signature above, the attending physician certifies that he/she has personally conducted a gross and/or microscopic examination of the described specimens and rendered or confirmed the above diagnosis. Specimen(s) Received: ? Endometrial bx Clinical History: ? Menorrhagia; on Provera; LMP: 02/18/05 Gross Description: ? Received in formalin labelled Cat and endometrium is a 1.7 x 0.9 x 0.3 cm aggregate of hemorrhagic guerra tissue, submitted entirely in one cassette. (Jayson Herrmann)/[facility] End of Report [facility] 03/10/2005 03/11/2005 9:2 5 EST Taylor Zayas MD PATHOLOGY ORDERABLES [facility] [address] [place] [address] documented in this encounter Visit Diagnoses Not on filedocumented in this encounter Care Teams Perennial House Manager Relationship Specialty Start Date End Date Unknown, Provider, PCP - General 07/17/08 01/27/10 Carla Reinoso MD [address] [address] PCP - General 07/16/08 07/16/08 Mary Carrillo PA PCP - General 01/28/10 01/02/11 documented as of this encounter
--- OUTSIDE RECORDS SUMMARY | 2023-10-05 02:24 | XMS_ITS | Encounter Summary ---
Author Organization [facility] Address [address] [place] [address] Care Team Providers Care Residence Life Director Name Role Phone Unknown, Provider Primary Care Provider [phone] Carla Reinoso MD Primary Care Provider [phone] Encounter Details Date Type Department Care Team (Late st Contact Info) Description 03/08/2006 Results Only [facility] [address] [place] [address] Taylor Zayas MD [address] [place] [address] [place] [address] Social History Tobacco Use Types Packs/Day Years Used Date Smoking Tobacco: Never Assessed Sex and Gender Information Value Date Recorded Sex Assigned at Not on file Gender Identity Not on file Sexual Orientation Not on file documented as of this encounter Plan of Treatment Not on file documented as of this encounter Procedures Procedure Name Priority Date/Time Associated Diagnosis Comments SURGICAL PATHOLOGY Routine 03/08/2006 0:00 EST documented in this encounter Results * SURGICAL PATHOLOGY (03/08/2006 0:00 EST) Pathology Report: SURGICAL PATHOLOGY REPORT Reports generated via electronic interface contain original data; however they are lacking the format of the original report. Caution should be taken when reading/interpreti ng unformatted reports. Name: ? BARBARA CHAPMAN ? Accession #: ? [id number] ? : ? 1970 (Age: 35) ??F ? Collect Date: ? 03/08/2006 ? Location: ? [facility] ? Receive Date: ? 03/08/2006 ? Provider: TAYLOR ZAYAS MD Copy to: CARLA REINOSO MD ? Final Pathologic Diagnosis: ? Endometrium, curettage: 1. ?Portion of endometrium with features suggestive of benign endometrial polyp. 2. ? Inactive endometrial glands and predecidualized stroma with stromal breakdown. Document reviewed and electronically signed by: Symone Card MD Report ??Date: 03/10/2006 16:45 By the signature above, the attending physician certifies that he/she has personally conducted a gross and/or microscopic examination of the described specimens and rendered or confirmed the above diagnosis. Specimen(s) Received: ? Endometrial curettage Clinical History: ? Menorrhagia + dysfunctional uterine bleeding; D+C and hysteroscopy Gross Description: ? Received in formalin labelled Cat and endometrial curettage are multiple portions of guerra-brown soft tissue with admixed blood which measure in aggregate of 2.0 x 2.0 x 0.2 cm. ??The specimen is entirely submitted in two cassettes as (A1) and (A2). ??(Dr. Singh)/[facility] End of Report [facility] 03/08/2006 03/08/2006 15: 30 EST Taylor Zayas MD PATHOLOGY ORDERABLES [facility] [address] [place] [address] documented in this encounter Visit Diagnoses Not on filedocumented in this encounter Care Teams Residence Life Director Relationship Specialty Start Date End Date Unknown, Provider, PCP - General 07/17/08 01/27/10 Carla Reinoso MD [address] [address] PCP - General 07/16/08 07/16/08 documented as of this encounter
--- OUTSIDE RECORDS SUMMARY | 2023-10-05 02:24 | XMS_ITS | Encounter Summary ---
Author Organization [facility] [place] [address] Care Team Providers Care Corporate Travel Agent Name Role Phone Gissell Davis APRN Primary Care Provider Reason for Visit * Reason Comments Establish Care NO CODE: XR, CHRONIC LT KNEE PAIN S/P LT TKA X MULT SURGERIES - 2ND OPINION * Consultation (Routine) - Closed Specialty Diagnoses / Procedures Referred By Darwin t Referred To Contact Orthopaedics Diagnoses Chronic knee pain after total replacement of left knee joint CHRONIC LT KNEE PAIN S/P LT TKA X MULT SURGERIES Raheel Gongora MD [address] [place] [address] [facility] [address] [place] [id number] Referral ID Status Reason Start Date Expiration Date V isits Requested Visits Authorized [id number] Closed Consult, [facility] PCP Updated and/or Approved 03/17/2020 03/17/2021 6 6 Encounter Details Date Type Department Care Team (Late st Contact Info) Description 04/23/2020 1:00 PM EST Office [place] [address] Ward Sheffield MD [facility] [place] [address] Patella baja Social History Tobacco Use Types Packs/Day Years Used Date Smoking Tobacco: Never Smokeless Tobacco: Never Alcohol Use Standard Drinks/Week Comments Never 0 (1 standard drink = 0.6 oz pur e alcohol) Sex and Gender Information Value Date Recorded Sex Assigned at Not on file Gender Identity Not on file Sexual Orientation Not on file documented as of this encounter Last Filed Vital Signs Vital Sign Reading Time Taken Comments Blood Pressure 119/80 04/23/2020 1:00 PM EST Pulse 87 04/23/2020 1:00 PM EST Temperature - - Respiratory Rate - - Oxygen Saturation - - Inhaled Oxygen Concentration - - Weight 84.8 kg (187 lb) 04/23/2020 1:00 PM EST Height 160 cm (5' 3) 04/23/2020 1:00 PM EST Body Mass Index 33.13 04/23/2020 1:00 PM EST documented in this encounter Progress Notes * Ward Sheffield MD - 04/23/2020 1:00 PM EST Images from the original note were not included. Department of Orthopaedics Division of Adult Joint Reconstructive Surgery Subjective: RE: Barbara Floyd Chapman CC: Chief Complaint Patient presents with ??? Establish Care NO CODE: XR, CHRONIC LT KNEE PAIN S/P LT TKA X MULT SURGERIES - 2ND OPINION DIAGNOSIS: Osteoarthritis (M19.10), total knee replacement BILATERAL knee. ARTHROPLASTY PROCEDURES: (Dr. Gongora / [place], [place]) 1. 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 LEFT TOTAL KNEE EXPLANT, SPACER PLACEMENT 3. LEFT TOTAL KNEE REPLANT (On chronic antibiotic suppression) HISTORY OF PRESENT ILLNESS: I had the pleasure of seeing Barbara Chapman in consultation today. She was referred to me by Dr. Gongora in [place], [place] for a second opinion. Barbara Chapman who is a pleasant 49 y.o. female who presents with a chronic left knee pain after multiple left knee surgeries. 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 She comes with a chief complaint of ongoing pain and weakness as well as an inability to fully actively extend the left knee. The patient has had extensive physical therapy andyet continues to have problems achieving full active extension. The patient localizes her pain to the knee globally. It's worse with active quad contraction and weight bearing. It is a dull, aching and sharp pain depending on their activities, today's pain score: 7/10 on VAS. Has difficulty with fun ctional activities such as stairs, prolonged standing and walking. Overall, the problem is simply not getting better and she is hoping for a solution. Other pertinent details of the history include: Home exercise/activities: none, actively engaged in PT and has been pursuing a HEP Assistive devices: not using a cane or other assistive device Stair climbing: alternating feet Physical therapy: Yes Weight gain/loss: has been stable Tried or Using a Brace: Yes Corticosteroid injections and/or viscosupplementation: NA PAST MEDICAL HISTORY: Patient Active Problem List Diagnosis Code ??? Gastroesophageal reflux K21.9 ??? Asthma J45.909 ??? Anxiety F41.9 ??? Depression F32.9 ??? 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 Diabetes mellitus E11.9 ??? Migraines G43.909 ??? Bilateral nephrolithiasis N20.0 PAST SURGICAL HISTORY: Past Surgical History: Procedure Laterality Date ??? PRO CYSTO/URETERO/PYELOSCOPY W/LITHOTRIPSY Left 11/16/2018 CYSTOURETEROSCOPY, LITHOTRIPSY (WRVU 7.5) performed by Nena Ace MD at [facility] MAIN OR ??? PRO CYSTO/URETERO/PYELOSCOPY W/LITHOTRIPSY Bilateral 12/28/2018 CYSTOURETEROSCOPY, LITHOTRIPSY (WRVU 7.5) performed by Nena Ace MD at [facility] MAIN OR ??? PRO CYSTO/URETERO/PYELOSCOPY W/LITHOTRIPSY N/A 01/24/2019 CYSTOURETEROSCOPY, LITHOTRIPSY (WRVU 7.5) performed by Stacey Leblanc MD at [facility] OSC ??? PRO CYSTO/URETERO/PYELOSCOPY, CALCULUS TX Bilateral 11/16/2018 CYSTOURETHROSCOPY WITH UTETEROSCOPY, W\REMOVAL, MANIPULATION OF CALCULUS (WRVU 6.75) performed by Nena Ace MD at [facility] MAIN OR ??? PRO CYSTO/URETERO/PYELOSCOPY, CALCULUS TX N/A 01/24/2019 CYSTOURETHROSCOPY WITH UTETEROSCOPY, W\REMOVAL, MANIPULATION OF CALCULUS (WRVU 6.75) performed by Stacey Leblanc MD at [facility] OSC ??? PRO CYSTOSCOPY, INSERT URETERAL STENT Bilateral 10/16/2018 CYSTO, STENT PLACEMENT (WRVU 2.82) performed by Agustin Crespo MD at [facility] MAIN OR ??? PRO CYSTOSCOPY, INSERT URETERAL STENT Bilateral 11/16/2018 CYSTO, STENT PLACEMENT (WRVU 2.82) performed by Nena Ace MD at [facility] MAIN OR ??? PRO CYSTOSCOPY, INSERT URETERAL STENT N/A 01/24/2019 CYSTO, STENT PLACEMENT (WRVU 2.82) performed by Stacey Leblanc MD at [facility] OSC ??? PRO CYSTOURETHROSCOPY, URETER CATHETER Bilateral 10/16/2018 CYSTO, RETROGRADE, URETEROPYELOGRAPHY (WRVU 2.37) performed by Agustin Crespo MD at [facility] MAIN OR ??? PRO CYSTOURETHROSCOPY, URETER CATHETER Right 01/24/2019 CYSTO, RETROGRADE, URETEROPYELOGRAPHY (WRVU 2.37) performed by Stacey Leblanc MD at [facility] OSC ALLERGIES: Allergies Allergen Reactions ??? Latex ??? Codeine Phosphate ??? Erythromycin Base ??? Gloves, Latex ??? Latex Dams Allergies to metals: None known. FAMILY HISTORY: Family history was reviewed with patient and is as listed below. There is not a family history of bleeding or anesthetic complications. History reviewed. No pertinent family history. SOCIAL HISTORY: The patient lives in [facility] with her spouse. Social History Tobacco Use ??? Smoking status: Never Smoker ??? Smokeless tobacco: Never Used Substance Use Topics ??? Alcohol use: Never ??? Drug use: Never REVIEW OF SYSTEMS: A comprehensive 12-point review of systems was performed and reviewed with the patient and is as listed below. All systems not mentioned below or in HPI were reviewed and are negative. REVIEW OF SYSTEMS: A detailed review of systems was performed and is as reviewed with the patient and indicated in thechart. Review of Systems Constitutional: Negative. HENT: Negative. Eyes: Negative. Respiratory: Negative. Negative for shortness of breath. Cardiovascular: Negative for chest pain. Gastrointestinal: Multiple abdominal surgeries. Genitourinary: Negative. Musculoskeletal: Positive for joint pain. Skin: Negative. Neurological: Negative. Endo/Heme/Allergies: Negative. Psychiatric/Behavioral: Negative. All other systems reviewed and are negative. Patient denies fevers, chills, night sweats, nausea, or vomiting. QUESTIONNAIRE RESPONSES: No flowsheet data found. No flowsheet data found. No flowsheet data found. Objective: PHYSICAL EXAMINATION: Body mass index is 33.13 kg/m??. On physical examination, the patient is well developed and well nourished in no acute distress, pleasant and cooperative throughout the exam. Alert and oriented to person, place, and time with a normal affect. Respiratory effort is normal, with no dyspnea on exertion. Walks with a Antalgic gait. Quad avoidance gait on the left Knee Exam: Right Left Range of Motion 3 - 120 AROM 20 - 120+ / PROM 5 - 120+ Extensor Lag none 20 degrees less than full extension Joint Line Tenderness None None AP Laxity @ 90 degrees no no Varus-Valgus Laxity no no Effusion None None Pain with patellar compression and motion No Yes, mild Prior Incisions Midline anterior Midline anterior Alignment neutral neutral Hip Irritability (FADIR, Stinhfield Test) None None Has intact sensation to light touch throughout the lower extremities, and 5/5 strength in bilaterallower extremity muscle groups except as noted above. Has no skin lesions or rashes, and the extremities show no signs of peripheral edemaand are warm and well perfused with brisk capillary refill and palpable distal pulses. IMAGING: I personally reviewed and interpreted the radiographs obtained on 04/23/2020. X-RAYS: AP lateral and sunrise of the LEFT knee(s) compared with prior x-rays show a well-fixed, well-aligned, cemented semi-constrained LEFT total knee replacement. The patella is low. Insall Salvati ratio is 0.8 (low end of normal) and the Blackburne Peel measurement is difficult to measure, but approximately 0.6. The patella button has been removed. REVIEW OF OUTSIDE RECORDS: Yes, outside records related to primary and revision surgery. Assessment & Plan: IMPRESSION: Barbara Chapman who is a 49 y.o. female who has a revision left total knee arthroplasty that requires long-term antibiotic suppression for chronic infection. She has a painful left total knee and an extensor lag of approximately 20 degrees. 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 Patella baja could account for her extensor lag and weakness. Treating this can be difficult, especially becasue there aren't really concise, clear guidelines about when to treat and how to treat this problem. As such, any treatment pursued should be done only when the patient has a clear understanding that the functional improvements may only be modest. So, setting expectations for only marginal improvement is important. I do think it is reasonable to start simply. A patella button placed in along the most superior aspect of the patella may improve this patient's extensor lag, particularly because I think the baja is relatively mild. It is true that the patella is relatively thin, and there would be a non-zero chance that the patella could fracture -- and the patient would need to appreciate this risk. As you know, the other consideration with bajais also the level of the joint line and pausing to consider whether the joint line has been raised -- thus resulting in relative patella baja (pseudo baja). In my opinion the joint line is not particularly high when one looks at the tibial cut relative to the tip of the fibula. Moreover, the poly does not appear to be particularly thick (the actual joint line). That said, if addition of a button does not sufficiently solve the problem, lowering the joint line could be considered by adding augments to the femur and downsizing the poly This, of course, would be a lot bigger surgery, and, again,might only provide marginal gains. So, in short, I do think that adding a superiorly placed patella button is a reasonable first step, provided the patient has appropriate expectations for only marginal gains. Thank you very much for allowing me to participate in your patients care. Please reach out with anyfurther questions. Ward Sheffield MD documented in this encounter Plan of Treatment Not on file documented as of this encounter Visit Diagnoses Diagnosis Patella baja documented in this encounter Care Teams Corporate Travel Agent Relationship Specialty Start Date End Date Gissell Davis APRN [address] [place], [place] [address] [address] [place] [address] PCP - General Family Medicine 08/21/18 11/12/21 documented as of this encounter
--- OUTSIDE RECORDS SUMMARY | 2023-10-05 02:24 | XMS_ITS | Encounter Summary ---
Author Organization [facility] Address [address] [place] [address] Care Team Providers Care Injector Assembler Name Role Phone Unknown, Provider Primary Care Provider Encounter Details Date Type Department Care Team (Late st Contact Info) Description 01/26/2010 Results Only [facility] Laboratory Services - [facility] ([facility] [address] [place], [place] [id number] Garett Barba, DO [address] [facility] [address] [place], [place] [id number] Social History Tobacco Use Types Packs/Day Years Used Date Smoking Tobacco: Never Assessed Sex and Gender Information Value Date Recorded Sex Assigned at Not on file Gender Identity Not on file Sexual Orientation Not on file documented as of this encounter Plan of Treatment Not on file documented as of this encounter Procedures Procedure Name Priority Date/Time Associated Diagnosis Comments SURGICAL PATHOLOGY Routine 01/26/2010 0:00 EST documented in this encounter Results * SURGICAL PATHOLOGY (01/26/2010 0:00 EST) Pathology Report: SURGICAL PATHOLOGY REPORT ? Reports generated via electronic interface contain original data; ? however they are lacking the format of the original report. ? Caution should be taken when reading/interpreting unformatted reports. ? Name: ? CHAPMAN, BARBARA A ? Accession #: ? [id number] ? : ? 1970 (Age: 39) ??F ? Collect Date: ? 01/26/2010 ? Location: ? [facility] ? Receive Date: ? 01/27/2010 ? Provider: GARETT BARBA DO ? Copy to: DEAN LIDIA PA ? Final Pathologic Diagnosis: ? A. ?Stomach, antrum, biopsy: ? 1. ?Antral mucosa with chronic active gastritis, mild. ??See comment. ? 2. ? Immunohistochemical stain for Helicobacter pylori is negative. ??See ? comment. ? B. ?Stomach, body, biopsy: ? 1. ?Chronic gastritis, mild to moderate. ? C. ?Esophagus, distal, biopsy: ? 1. ?Hyperplastic squamous mucosa with increased intraepithelial ? eosinophils (peak count 19). ? D. ?Esophagus, mid, biopsy: ? 1. ?Hyperplastic squamous mucosa (peak eosinophilic count 2 per high ? power field). ? E. ?Esophagus, proximal, biopsy: ? 1. ?Hyperplastic squamous mucosa with mild, reactive changes. ? Comment: ? The histologic sections of the distal esophageal biopsy show hyperplastic ?? squamous mucosa with basal cell hyperplasia and increased intraepithelial ? eosinophils (peak count 19 per high power field). ??Though the features are ? consistent with reflux, eosinophilic esophagitis cannot be entirely excluded. ?? Clinical endoscopic correlation is essential. ? Immunohistochemical staining was performed on this case to further ? characterize the lesion. ??Positive and negative controls stained appropriately. ? Block ?Antibody (Clone) ? Result ? A ?H. pylori (polyclonal, [facility]) ? Negative ? (Dr. Hills)/mpl ? NOTE: ??One or more of the reagents used in immunohistochemical testing in this case may not have been cleared or approved by the U.S. Food and Drug ? Administration (FDA). ??The FDA has determined that such clearance or approval is not necessary. ??These tests are used for clinical purposes. ??They should not be regarded as investigational or for research. ??These reagents' ??performance ? characteristics have been determined by [facility]. ??This ? laboratory is certified under the Clinical Laboratory Improvement Amendments of 1988 (CLIA-88) as qualified to perform high complexity clinical laboratory ? testing. ? Document reviewed and electronically signed by: ? ATA CIAMPA MD ? Report ??Date: 02/02/2010 12:12 ? By the signature above, the attending physician certifies that he/she has ? personally conducted a gross and/or microscopic examination of the described ? specimens and rendered or confirmed the above diagnosis. ? Specimen(s) Received: ? A. ?Bx gastric antrum ? B. ? Bx body of stomach ? C. ? Bx distal esophagus ? D. ? Bx mid esophagus ? E. ? Bx proximal esophagus ? Clinical History: ? Recurrent nausea/vomiting; GERD ? Gross Description: ? Received in Antonio's fixative labelled Chapman, Barbara and #1 bx ? gastric antrum are two biopsies measuring 0.3 x 0.3 x 0.2 cm and 0.4 x 0.3 x ?? 0.2 cm. ??The specimens are submitted intact as (A). ? Received in protected-networks.come's fixative labelled Barbara Chapman and #2 bx body of ? stomach are two biopsies measuring 0.6 x 0.3 x 0.1 cm and 0.8 x 0.2 x 0.1 cm. ?? The specimens are submitted intact as (B). ? Received in AlephD's fixative labelled Barbara Chapman and #3 bx distal ? esophagus are three biopsies which vary in size from 0.4 x 0.3 x 0.1 cm up to ?? 0.5 x 0.3 x 0.1 cm. ??The specimens are submitted intact as (C). ? Received in protected-networks.come's fixative labelled Barbara Chapman and #4 bx mid ? esophagus are two biopsies measuring 0.3 x 0.2 x 0.1 cm and 0.3 x 0.3 x 0.1 cm. The specimens are submitted intact as (D). ? [facility] labelled Barbara Chapman and #5 bx proximal ?? esophagus are two biopsies measuring 0.2 x 0.2 x 0.1 cm and 0.4 x 0.3 x 0.1 cm. The specimens are submitted intact as (E). ??(CARLOS A Grewal)/eddan ? End of Report ? [facility] 01/26/2010 01/27/2010 10: 15 EST Garett Barba DO PATHOLOGY ORDER TRE [facility] [address] [place] [address] documented in this encounter Visit Diagnoses Not on filedocumented in this encounter Care Teams Injector Assembler Relationship Specialty Start Date End Date Unknown, Provider, PCP - General 07/17/08 01/27/10 documented as of this encounter
--- OUTSIDE RECORDS SUMMARY | 2023-10-05 02:24 | XMS_ITS | Encounter Summary ---
[place] [address] Care Team Providers Care Associate Professor Of Mathematics Name Role Phone Unknown Primary Care Provider Unavailabl e Encounter Details Date Type Department Care Team (Latest Contact Info) Description 03/22/2022 Travel Social History Tobacco Use Types Packs/Day Years [...] filedocumented in this encounter Care Teams Associate Professor Of Mathematics Relationship Specialty Start Date End Date Unknown None PCP - General 11/13/21 documented as of this encounter
--- OUTSIDE RECORDS SUMMARY | 2023-10-05 02:25 | XMS_ITS | Encounter Summary ---
[place] [address] Care Team Providers Care Steam Pipe Fitter Name Role Phone Gissell Davis APRN Primary Care Provider [phone] Encounter Details Date Type Department Care Team (Late st Contact Info) Description 12/24/2018 [place] [phone] Gonzalo Goodrich MD [facility] UROLOGY DEPT [place] [id number] Social History Tobacco Use Types Packs/Day Years [...] Miscellaneous Notes * Telephone Encounter - Gonzalo Goodrich MD - 12/24/2018 1:56 PM EST Patient dropped of a UC[facility] to [facility] today. Will call tomorrow to obtain the results. Gonzalo Goodrich MD, MPH Urology, PGY-3 Consult Pager #[phone] 12/24/2018 documented in this encounter Plan of Treatment Not on file documented as of this encounter Visit Diagnoses Not on filedocumented in this encounter Care Teams Steam Pipe Fitter Relationship Specialty Start Date End Date Gissell Davis APRN [address] [place] [address] PCP - General Family Medicine 08/21/18 11/12/21 documented as of this encounter
--- OUTSIDE RECORDS SUMMARY | 2023-10-05 02:25 | XMS_ITS | Encounter Summary ---
Author Organization [facility] [place] [address] Care Team Providers Care Resource Engineer Name Role Phone Susan Gissell Murphy APRN Primary Care Provider Encounter Details Date Type Department Care Team (Late st Contact Info) Description 02/04/2019 1:00 PM EST Office [place] [address] Stacey Leblanc MD [facility] [place] [address] Bilateral nephrolithiasis Social History Tobacco Use Types Packs/Day Years [...] Sign Reading Time Taken Comments Blood Pressure 142/88 02/04/2019 1:04 PM EST Pulse 88 02/04/2019 1:04 PM EST Temperature - - Respiratory Rate - - Oxygen Saturation - - Inhaled Oxygen Concentration - - Weight 84.8 kg (187 lb) 02/04/2019 1:04 PM EST Height - - Body Mass Index 33.13 01/24/2019 7:45 AM EST documented in this encounter Patient Instructions * Patient Instructions* Glenda Rivers LPN - 02/04/2019 1:00 PM EST Instructions following Cystoscopy Activity: As tolerated by your comfort level. Fluids: You should increase your water today. Avoid coffee, tea and cola. You do not need to [id number] ounces of water today. Urination: You will likely have a small amount of blood in your urine for the next several days. This is normal; however, if you are passing large amounts of blood clots or are unable to void please call our office at [phone] before 5PM or [phone] after hours. Please call if: * you have copious blood in your urine * fevers greater than 101.3 F * you are unable to void The number for questions is [phone] before 5 PM weekdays and [phone] after 5 PM and weekends. Follow-up: 6 weeks with U/S documented in this encounter Progress Notes * Stacey Leblanc MD - 02/04/2019 1:00 PM EST SUBJECTIVE: Pt is here today for a stent removal from the RT. They underwent a second stage stone extraction from the Rt on 01/24/19 following procedures on 12/28/18, 11/17/18 and 10/16/18 . Her initial procedure was bilateral. Her stone was 80% calcium oxalate, 20% uric acid. OBJECTIVE: The vitals are recorded on the chart and are normal. Urinalysis: + RBC IMPRESSION: Stone free after stone extraction and stent placement for obstruction PLAN: Water gluttoney reviewed - advised to drink 2 + liters per day Renal ultrasound and RTC in 6 weeks documented in this encounter Procedure Notes * Stacey Leblanc MD - 02/04/2019 1:00 PM ESTAssociated Order(s): CYSTOSCOPY Pre-Procedure Diagnose(s): Bilateral nephrolithiasis Post-Procedure Diagnose(s): Bilateral nephrolithiasis The patient was cystoscoped with a flexible scope following routine skin cleansing and drapping. 2%xylocaine gel was instillated into the urethra. The urethra was normal. The vulva was normal. The bladder mucosa was normal with inflammation noted. No bladder tumors or stones or foreign bodies werenoted. The stent was identified, grasped with a flexible forceps and removed intact. The patient tolerated the procedure well. Pre procedure they were given 1 dose ciprofloxin. documented in this encounter Plan of Treatment Not on file documented as of this encounter Procedures Procedure Name Priority Date/Time Associated Diagnosis Comments CYSTOSCOPY Routine 02/04/2019 1:00 PM EST Bilateral nephrolithiasis documented in this encounter Results * Cystoscopy (02/04/2019 1:00 PM EST) Narrative Stacey Leblanc MD - 02/04/2019 1:00 PM EST Stacey Leblanc MD ? 02/17/2019 11:24 AM The patient was cystoscoped with a flexible scope following routine skin cleansing and drapping. ??2% xylocaine gel was instillated into the urethra. ??The urethra was normal. ??The ?? vulva was normal. ??The bladder mucosa was normal with inflammation noted. ??No bladder tumors or stones or foreign bodies were noted. ??The stent was identified, grasped with a flexible forceps and removed intact. The patient tolerated the procedure well. Pre procedure they were given 1 dose ciprofloxin. Stacey Leblanc MD PROCEDURE OR DERABLES documented in this encounter Visit Diagnoses Diagnosis Bilateral nephrolithiasis documented in this encounter Care Teams Resource Engineer Relationship Specialty Start Date End Date Gissell Davis APRN [address] [place] [address] PCP - General Family Medicine 08/21/18 11/12/21 documented as of this encounter
--- OUTSIDE RECORDS SUMMARY | 2023-10-05 02:25 | XMS_ITS | Encounter Summary ---
Author Organization [facility] Address [facility] [place] [address] Care Team Providers Care Supply Chain Business Analyst Name Role Phone Gissell Davis APRN Primary Care Provider Encounter Details Date Type Department Care Team (Late st Contact Info) Description 11/16/2018 9:41 AM EDT Anesthesia Event Main Operating Room [facility] [place] [id number] Stacey Sanchez MD [facility] [place] [address] Anesthesia Record Procedure Summary Procedure Name Responsible Anesthesiologist Anesthesia Start Time Anesthesia Stop Time CYSTO, STENT PLACEMENT (WRVU 2.82) (Bilateral: Ureter) Stacey Sanchez MD 11/16/18 0941 11/16/18 1310 Events Date Time Event Comment 11/16/2018 0923 0941 AN Verify 0941 Start 0941 An Start Data 0947 An Induction 0948 An Intubation 0949 Anesthesia Ready 1254 Break/Relief In Natalia D Gig gy, HAND FUNNEL COATER 1301 Extubation/LMA Out 1303 an stop data 1310 Recovery or ICU Handoff Tamara ent care was transferred to the destination unit staff after review of the patient's medical history, current anesthetic/surgical status and plan, according to the Provider Handoff Checklist. 1310 Stop Meds Name Total Midazolam 2 mg fentaNYL 100 mcg IV Lidocaine 100 mg Propofol 330 mg Rocuronium 20 mg PHENYLephrine 240 mcg ePHEDrine 5 mg Ondansetron 4 mg Dexamethasone 8 mg Neostigmine 1 mg Glycopyrrolate 0.2 mg Succinylcholine 100 mg Propofol INF 1,987.47 mg ciprofloxacin (CIPRO) 400 mg in dextrose 5% 200 mL 400 mg Dexmedetomidine 12 mcg Lactated Ringers 700 mL * Agents Name O2 Air N2O Sevoflurane (et) * Blood No blood administrations on file. Lines, Drains, and Airways Type Details Placement Removal Incision 10/16/18; 1703; urethral meatus; other (see comments); cysto bilateral stent placement; 10/18/21 (LDA cleanup utility RA#[id number]); 1715 (LDA cleanup utility RA#[id number]) 10/16/18 1703 by Erika Licona RN 10/18/21 1715 by Lian Márquez (RETIRED) Peripheral IV Line - Double Lumen 11/16/18; 0900; cephalic vein (lateral side of arm), left; 20 gauge; entered in error; 11/16/18; 0929 11/16/18 0900 by Albina Bolivar RN 11/16/18 0929 by Albina Bolivar RN (RETIRED) Peripheral IV Line - Single Lumen 11/16/18; 0900; cephalic vein (lateral side of arm), left; 20 gauge; no longer indicated; 11/16/18; 1409 11/16/18 0900 by Albina Bolivar RN 11/16/18 1409 by Syl Perkins RN documented in this encounter Social History Tobacco Use Types Packs/Day Years Used Date Smoking Tobacco: Never Smokeless Tobacco: Never Alcohol Use Standard Drinks/Week Comments Never 0 (1 standard drink = 0.6 oz pur e alcohol) Sex and Gender Information Value Date Recorded Sex Assigned at Not on file Gender Identity Not on file Sexual Orientation Not on file documented as of this encounter OR Notes * Anesthesia Postprocedure Evaluation - Stacey Sanchez MD - 11/16/2018 1:25 PM EDT Department of Anesthesiology Post-procedure Note Patient: Barbara Chapman Procedure Summary Date: 11/16/18 Room / Location: [facility] OR [facility] MAIN OR Anesthesia Start: 940 Anesthesia Stop: 1310 Procedures: CYSTO, STENT PLACEMENT (WRVU 2.82) (Bilateral Ureter) CYSTOURETEROSCOPY, LITHOTRIPSY (WRVU 7.5) (Left Ureter) CYSTOURETHROSCOPY WITH UTETEROSCOPY, W\REMOVAL, MANIPULATION OF CALCULUS (WRVU 6.75) (Bilateral Ureter) MODIFIER HOLMIUM LASER (N/A ) Diagnosis: (URETERAL OBSTRUCTION) Surgeon: Nena Ace MD Responsible Provider: Stacey Sanchez MD Anesthesia Type: general ASA Status: 3 All Anesthesia Providers: Anesthesiologist: Stacey Sanchez MD Fitting Room Supervisor: Qiana Negro MD Vitals Value Taken Time BP 124/84 11/16/2018 1:15 PM Temp 36.8 ??C (98.2 ??F) 11/16/2018 1:09 PM Pulse Resp 18 11/16/2018 1:15 PM SpO2 96 % 11/16/2018 1:25 PM Pain Level Vitals shown include unvalidated device data. Patient Location: PACU/[facility] Level of Consciousness: Awake and Alert Pain Management: Satisfactory Analgesia PONV: None Cardiovascular Status: At Baseline Respiratory Status: Room Air Postoperative Fluid Status: Intravascular EUvolemia Possible Anesthetic Complications: NONE apparent at time of evaluation Final Primary Anesthesia Type: General (The anesthetic type performed was the same as planned.) Comments: * Anesthesia Preprocedure Evaluation - Stacey Sanchez MD - 11/15/2018 4:16 PM EDT Pre-Anesthesia Evaluation for: Barbara Chapman a 48 y.o. female. Procedure(s): CYSTO, STENT PLACEMENT (WRVU 2.82) CYSTOURETEROSCOPY, LITHOTRIPSY (WRVU 7.5) CYSTOURETHROSCOPY WITH UTETEROSCOPY, W\REMOVAL, MANIPULATION OF CALCULUS (WRVU 6.75) MODIFIER HOLMIUM LASER Patient Active Problem List Diagnosis ??? Bilateral nephrolithiasis ??? Gastroesophageal reflux ??? Asthma ??? Anxiety ??? Depression ??? Infection of prosthetic left knee joint ??? Diabetes mellitus ??? Migraines No past medical history on file. Past Surgical History: Procedure Laterality Date ??? PRO CYSTOSCOPY, INSERT URETERAL STENT Bilateral 10/16/2018 CYSTO, STENT PLACEMENT (WRVU 2.82) performed by Agustin Crespo MD at [facility] MAIN OR ??? PRO CYSTOURETHROSCOPY, URETER CATHETER Bilateral 10/16/2018 CYSTO, RETROGRADE, URETEROPYELOGRAPHY (WRVU 2.37) performed by Agustin Crespo MD at [facility] MAIN OR Social History Tobacco Use ??? Smoking status: Never Smoker ??? Smokeless tobacco: Never Used Substance Use Topics ??? Alcohol use: Not on file Social History Substance and Sexual Activity Drug Use Not on file Allergies Allergen Reactions ??? Latex ??? Codeine Phosphate ??? Erythromycin Base ??? Gloves, Latex ??? Latex Dams Medications: MAR and/or home medications have been reviewed. Physical Exam: There were no vitals filed for this visit. There is no height or weight on file to calculate BMI. Airway Assessment: Mallampati: III TM distance: >3 FB Neck ROM: full Cardiovascular Assessment: Rhythm: regular Rate: normal Pulmonary Assessment: breath sounds clear to auscultation Dental Assessment: Misc Assessment: Patient is wearing No contact(s). IV access: Peripheral line Anesthesia Plan: ASA 3 general, with a(n) intravenous induction Barbara Chapman is a 48 y.o. 86.6 kg female non-smoker with h/o asthma (albuterol, singulair, advair), GERD (carafate, trimethobenzamide), anxiety/depression (prozac), migraines (propranolol), NIDDM (metformin), chronic pain (tramadol, percocet, dilaudid, gabapentin, amitriptyline) presenting for Pr ocedure(s): CYSTO, STENT PLACEMENT (WRVU 2.82) CYSTOURETEROSCOPY, LITHOTRIPSY (WRVU 7.5) CYSTOURETHROSCOPY WITH UTETEROSCOPY, W\REMOVAL, MANIPULATION OF CALCULUS (WRVU 6.75) MODIFIER HOLMIUM LASER with Dr. Ace. current N/V. NPO status appropriate. ROS: Patient denies CVA, seizure, CAD, chest pain, URI, FALCON, orthopnea, LILIYA, thyroid disease, liverdisease, kidney disease, bleeding disorder.. METs>4 Code Status: full code intraoperatively Current Outpatient Medications: ??? cephALEXin (KEFLEX) 250 mg Capsule, Take 1 capsule by mouth 3 times daily., Disp: , Rfl: ??? tamsulosin (FLOMAX) 0.4 mg Capsule, Take 1 capsule by mouth daily., Disp: 60 tablet, Rfl: 0 ??? acetaminophen (TYLENOL) 500 mg Tablet, Take 2 tablets by mouth every 6 hours as needed for Pain. Do not exceed 4000 mg per 24 hours., Disp: 30 tablet, Rfl: 1 ??? FLUoxetine (PROZAC) 40 mg Capsule, Daily., Disp: , Rfl: ??? rifAMPin (RIFADIN) 300 mg Capsule, Every 12 hours., Disp: , Rfl: ??? gabapentin (NEURONTIN) 300 mg Capsule, Every 8 hours., Disp: , Rfl: ??? metFORMIN (GLUCOPHAGE) 1,000 mg Tablet, Every 12 hours., Disp: , Rfl: ??? Magnesium Oxide 500 mg Tablet, TAKE ONE TABLET BY MOUTH EVERY DAY, Disp: , Rfl: 3 ??? albuterol (PROVENTIL) 2.5 mg /3 mL (0.083 %) nebulizer solution, Take 2.5 mg by nebulization nightly., Disp: , Rfl: ??? traMADol (ULTRAM) 50 mg tablet, Take 50 mg by mouth daily. 1-2 tablets daily , Disp: , Rfl: ??? HYDROmorphone (DILAUDID) 2 mg tablet, Take by mouth daily. Takes 1-2 tablets daily , Disp: , Rfl: ??? OXYcodone-acetaminophen (PERCOCET) 5-325 mg per tablet, Take 1 tablet by mouth daily as needed., Disp: , Rfl: ??? montelukast (SINGULAIR) 10 mg tablet, , Disp: , Rfl: ??? cetirizine (ZYRTEC) 10 mg tablet, , Disp: , Rfl: ??? LEVALBUTEROL HCL (XOPENEX INHL), , Disp: , Rfl: ??? FLUTICASONE/SALMETEROL (ADVAIR HFA INHL), , Disp: , Rfl: ??? sucralfate (CARAFATE) 1 gram tablet, , Disp: , Rfl: ??? PROPRANOLOL HCL (PROPRANOLOL ORAL), , Disp: , Rfl: ??? FLUoxetine (PROZAC) 20 mg capsule, , Disp: , Rfl: ??? amitriptyline (ELAVIL) 25 mg tablet, , Disp: , Rfl: ??? trimethobenzamide (TIGAN) 300 mg capsule, 300 MG = 1 Capsule(s), PO, Three times daily, Disp: ,Rfl: Allergies: -- Latex -- Codeine Phosphate -- Erythromycin Base -- Gloves, Latex -- Latex Dams Anesth hx: 7mm ETT, grade 3 view Mac 3 Smoking: no Drug use: no Alcohol use: no Labs: 10/15/18 1534 WBC 9.6* HGB 10.7* HCT 31.4* PLATELET 237 10/17/18 10/15/18 0508 1534 NA 141 143 K 3.3* 3.6 CL 104 107 CO2 26 22 BUN 16 20* CREATININE 1.95* 2.99* No results for input(s): AST, ALT, ALKPHOS, BILITOT, BILIDIR in the last 7068 hours. No results for input(s): PT, INR, PTT in the last 168 hours. Access: PIV Plan for GA with ETT (with LTA) v. LMA depending on severity of GERD symptoms and body habitus/obstruction risk. Consider RSI; standard ASA monitoring. C-MAC in room given grade 3 view in the past. Preop: tylenol, gabapentin, albuterol, versed PRN, consider bicitra Intraop: consider ketamine given chronic opioid use Post-op: nebs Antiemetics: decadron, zofran, consider TIVA Addendum: Patient seen and examined, agree with above. AMANDA progressive despite PPI, has added carafate to regimen. [id number] asthma, inhibits activity, uses rescue inhaler several times daily, has notbeen hospitalized or intubated in the past. Latex allergy. +PONV. [facility] Region - Other Informed Consent: Anesthetic plan and risks discussed with patient and spouse. Use of blood products discussed with patient and spouse who consented to blood products. Plan discussed with attending. PAT Clinic Note documented in this encounter Plan of Treatment Not on file documented as of this encounter Visit Diagnoses Not on filedocumented in this encounter Administered Medications Inactive Administered Medications - up to 3 most recent administrations Medication Order MAR Action Action Date Dose Rate Site ciprofloxacin (CIPRO) 400 mg in dextrose 5% 200 mL 400 mg, Intravenous, DESKTOP OPERATOR TO O.R., 1 dose, On Mon11/16/18 at 0945, Administer over 60 Minutes, Indication for (Active or Suspected): Prophylaxis, Restricted Antibiotic: Please indicate the most appropriate choice: Pre-approved Indication (State the indication in Comments field) Given 11/16/2018 9:55 AM EDT 400 mg dexamethasone (DECADRON) injection PRN, Starting on Mon11/16/18 at 0949, Until Mon11/16/18 at 1310, Anesthesia Intra-op, Routine Given 11/16/2018 9:49 AM EDT 8 mg dexmedetomidine (PRECEDEX) injection PRN, Starting on Mon11/16/18 at 1057, Until Mon11/16/18 at 1310, Anesthesia Intra-op, Routine Given 11/16/2018 12:50 PM EDT 4 mcg Given 11/16/2018 12:02 PM EDT 4 mcg Given 11/16/2018 10:57 AM EDT 4 mcg ePHEDrine 5 mg/mL multi-dose injection PRN, Starting on Mon11/16/18 at 1019, Until Mon11/16/18 at 1310, Anesthesia Intra-op, Routine Given 11/16/2018 10:19 AM EDT 5 mg fentaNYL 50 mcg/mL multi-dose injection PRN, Starting on Mon11/16/18 at 0945, Until Mon11/16/18 at 1310, Anesthesia Intra-op, Routine Given 11/16/2018 10:10 AM EDT 50 mcg Given 11/16/2018 9:45 AM EDT 50 mcg glycopyrrolate (ROBINUL) multi-dose injection PRN, Starting on Mon11/16/18 at 1248, Until Mon11/16/18 at 1310, Anesthesia Intra-op, Routine Given 11/16/2018 12:48 PM EDT 0.2 mg lactated ringers infusion CONTINUOUS PRN, Starting on Mon11/16/18 at 0941, Until Mon11/16/18 at 1310, Anesthesia Intra-op New Bag 11/16/2018 9:41 AM EDT lidocaine (PF) (XYLOCAINE) 100 mg/5 mL (2 %) injection PRN, Starting on Mon11/16/18 at 0947, Until Mon11/16/18 at 1310, Anesthesia Intra-op, Routine Given 11/16/2018 9:47 AM EDT 100 mg midazolam (PF) (VERSED) multi-dose injection PRN, Starting on Mon11/16/18 at 0941, Until Mon11/16/18 at 1310, Anesthesia Intra-op, Routine Given 11/16/2018 9:41 AM EDT 2 mg neostigmine (BLOXIVERZ) injection PRN, Starting on Mon11/16/18 at 1248, Until Mon11/16/18 at 1310, Anesthesia Intra-op, Routine Given 11/16/2018 12:48 PM EDT 1 mg ondansetron (ZOFRAN) injection PRN, Starting on Mon11/16/18 at 1243, Until Mon11/16/18 at 1310, Anesthesia Intra-op, Routine Given 11/16/2018 12:43 PM EDT 4 mg PHENYLephrine in NS (PF) (RADHA-SYNEPHRINE) 0.8 mg/10 mL (80 mcg/mL) multi-dose injection Syrg PRN, Starting on Mon11/16/18 at 1019, Until Mon11/16/18 at 1310, Anesthesia Intra-op, Routine Given 11/16/2018 10:19 AM EDT 160 mcg Given 11/16/2018 10:11 AM EDT 80 mcg propofol (DIPRIVAN) 10 mg/mL bolus injection (Anesthesia) PRN, Starting on Mon11/16/18 at 0947, Until Mon11/16/18 at 1310, Anesthesia Intra-op Given 11/16/2018 12:50 PM EDT 30 mg Given 11/16/2018 9:54 AM EDT 50 mg Given 11/16/2018 9:48 AM EDT 50 mg propofol (DIPRIVAN) infusion CONTINUOUS PRN, Starting on Mon11/16/18 at 0949, Until Mon11/16/18 at 1310, Anesthesia Intra-op, Routine Rate/Dose Change 11/16/2018 12:43 PM EDT 70 mcg/kg/min 36.4 mL/hr Rate/Dose Change 11/16/2018 10:49 AM EDT 125 mcg/kg/min 65 mL/hr Rate/Dose Change 11/16/2018 10:02 AM EDT 150 mcg/kg/min 77 .9 mL/hr rocuronium (ZEMURON) multi-dose injection PRN, Starting on Mon11/16/18 at 0947, Until Mon11/16/18 at 1310, Anesthesia Intra-op, Routine Given 11/16/2018 9:54 AM EDT 15 mg Given 11/16/2018 9:47 AM EDT 5 mg succinylcholine chloride (Quelicin) injection PRN, Starting on Mon11/16/18 at 0947, Until Mon11/16/18 at 1310, Anesthesia Intra-op, Routine Given 11/16/2018 9:47 AM EDT 100 mg documented in this encounter Care Teams Supply Chain Business Analyst Relationship Specialty Start Date End Date Gissell Davis APRN [address] [place] [address] PCP - General Family Medicine 08/21/18 11/12/21 documented as of this encounter
--- OUTSIDE RECORDS SUMMARY | 2023-10-05 02:25 | XMS_ITS | Encounter Summary ---
[place] [address] Care Team Providers Care Endocrinologist Name Role Phone Gissell Davis APRN Primary Care Provider Encounter Details Date Type Department Care Team (Late st Contact Info) Description 12/26/2018 [place] [phone] Gonzalo Goodrich MD [facility] UROLOGY DEPT [place] [phone] Social History Tobacco Use Types Packs/Day Years [...] Telephone Encounter - Gonzalo Goodrich MD - 12/26/2018 2:43 PM EST 50-100,000 mixed dal[place] (probable contaminant) in Barbara's UCx from [facility]. Will treat with Bactrim BID x 5 days in preparation for surgery. Gonzalo Goodrich MD, MPH Urology, PGY-3 Consult Pager #[phone] 12/26/2018 documented in this encounter Plan of Treatment Not on file documented as of this encounter Visit Diagnoses Not on filedocumented in this encounter Care Teams Endocrinologist Relationship Specialty Start Date End Date Gissell Davis APRN [address] [place] [address] PCP - General Family Medicine 08/21/18 11/12/21 documented as of this encounter
--- OUTSIDE RECORDS SUMMARY | 2023-10-05 02:25 | XMS_ITS | Encounter Summary ---
Author Organization [facility] Address [facility] [place] [address] Care Team Providers Care Field Service Consultant Name Role Phone Gissell Davis APRN Primary Care Provider [phone] Reason for Visit * Auth/Cert Specialty Diagnoses / Procedures Referred By Darwin t Referred To Contact Diagnoses Bilateral nephrolithiasis BIlateral obstructive nephrolihiasis with hydro / renal failure Referral ID Status Reason Start Date Expiration Date Visits Re quested Visits Authorized [id number] 1 1 Encounter Details Date Type Department Care Team (Latest Contact Info) Description 10/15/2018 2:53 PM EDT - 10/17/2018 10:04 AM EDT Hospital Encounter [address] [place] [id number] Nena Ace MD [facility] [place] [address] Discharge Disposition: Home Social History Tobacco Use Types Packs/Day Years Used Date Smoking Tobacco: Never Smokeless Tobacco: Never Alcohol Use Standard Drinks/Week Comments Not Asked 0 (1 standard drink = 0.6 oz pur e alcohol) Sex and Gender Information Value Date Recorded Sex Assigned at Not on file Gender Identity Not on file Sexual Orientation Not on file documented as of this encounter Last Filed Vital Signs Vital Sign Reading Time Taken Comments Blood Pressure 142/77 10/17/2018 7:31 AM EDT Pulse 65 10/16/2018 6:45 PM EDT Temperature 36.8 ??C (98.2 ??F) 10/17/2018 7:31 AM ED T Respiratory Rate 16 10/17/2018 7:12 AM EDT Oxygen Saturation 98% 10/17/2018 7:31 AM EDT Inhaled Oxygen Concentration - - Weight 86.6 kg (190 lb 14.7 oz) 10/15/2018 2:58 PM EDT Height 160 cm (5' 3) 10/15/2018 4:19 PM EDT Body Mass Index 33.82 10/15/2018 2:58 PM EDT documented in this encounter Discharge Summaries * Sara Lindquist PA - 10/16/2018 12:03 PM EDT Images from the original note were not included. Discharge Summary Patient Name: Barbara Chapman Patient Age: 48 y.o. Language: Sinhala Race: White Ethnicity: Not nor Admit date: 10/15/2018 Discharge date: 10/17/2018 Attending Physician: Nena Ace MD Discharge Physician: Lisset Gonzales MD Discharge Diagnoses (Hospital Problems) and Secondary Diagnoses (Chronic Problems): Active Hospital Problems Diagnosis ??? Bilateral nephrolithiasis Resolved Hospital Problems No resolved problems to display. Active Non-Hospital Problems Diagnosis ??? Gastroesophageal reflux ??? Asthma ??? Anxiety ??? Depression ??? Infection of prosthetic left knee joint ??? Diabetes mellitus ??? Migraines Operations/Major Procedures: Procedure(s): CYSTO, STENT PLACEMENT (WRVU 2.82) 10/16/2018 History of Presentation (from Dr. Tom's H&P): Barbara Chapman is a 48 y.o. yo female PMH asthma, GERD, DM, depression, anxiety, Right TKA 11/2016, Left TKA 06/2017 c/b by MSSA joint infection and revision who presented to [facility] with flank pain andfound to have bilateral obstructive nephrolithiasis and acute kidney injury. ?? Ms. Chapman states that she developed flank pain about 2 days ago that radiated to her groin. She denied any fevers or chills. She has no history of nephrolithiasis. She denies any irritative voiding/LUTS or hematuria. CT imaging at [facility] showed bilateral ureteral stones. She was afebrile and hemodynamically stable upon admission. Her WBC was 11 and her creatinine was 3.64. UA was negative for nitrites, positive for trace leukocyte esterase and 5-10 WBC with many squams. This did not reflex for culture. Given her RENAE and bilateral stone burden, she was transferred to [facility] for further urologic care. ?? Upon arrival, Ms. Chapman is hemodynamically stable and afebrile. She states that her pain improved after fentanyl. She is unable to take NSAIDs given her fundoplication. She is currently comfortable,but states that the pain at its worst is unbearable. Hospital Course: Patient was admitted to [facility] from [facility] and underwent the above procedure. Operative findings were asfollows: -left retrograde with filling defect proximal ureter correlating to known stone, 6 fr variable stent placed, urine clear -right retrograde with filling defect in mid ureter correlating to known stone, proximal hydroureteronephrosis, 6 fr variable length stent placed, urine clear She tolerated surgery well and was tranferred from the PACU to the general floor in good condition a few hours after surgery. Her creatinine was downtrending at time of discharge. Patient's hospital course was uncomplicated. She remained afebrile, with stable vital signs throughout her hospital stay. Today, on POD#1, she has met all criteria for discharge home: her pain is well controlled with medications by mouth, she is tolerating a regular diet, is voiding spontaneously without difficulties,and is up and ambulating without complications. She has been deemed safe for discharge with plans for follow up ureteroscopy and laser lithotripsy in 2-4 weeks. Vital Signs at Discharge: Weight: Wt Readings from Last 1 Encounters: 10/15/18 86.6 kg (190 lb 14.7 oz) Height: Ht Readings from Last 1 Encounters: 10/15/18 160 cm (5' 3) BMI: Body mass index is 33.82 kg/m??. Last value Range last 24 hrs Temperature Temp: 36.8 ??C (98.3 ??F) Temp: [36.5 ??C (97.7 ??F)-37 ??C (98.6 ??F)] Heart Rate Heart Rate: -- Blood Pressure BP: 113/64 BP: (112-125)/(64-75) Respiratory Rate Resp: 18 Resp: [18-20] SpO2 SpO2: 96 % SpO2: [90 %-99 %] Exam at Discharge: General: NAD CV: RRR Pulm: CTAB Abd: soft, NT, ND Ext: warm, well perfused Functional and Cognitive Status: Ambulating and cognitively intact. Important Studies and Lab Data: Lab Results Component Value Date WBC 9.6 (H) 10/15/2018 RBC 3.33 (L) 10/15/2018 HGB 10.7 (L) 10/15/2018 HCT 31.4 (L) 10/15/2018 MCV 94.3 10/15/2018 MCH 32.1 (H) 10/15/2018 MCHC 34.1 10/15/2018 PLATELET 237 10/15/2018 RDWCV 14.6 (H) 10/15/2018 Lab Results Component Value Date NA 143 10/15/2018 K 3.6 10/15/2018 CL 107 10/15/2018 CO2 22 10/15/2018 BUN 20 (H) 10/15/2018 CREATININE 2.99 (H) 10/15/2018 GLUCOSE 110 10/15/2018 CALCIUM 8.0 (L) 10/15/2018 Pending Studies and Lab Data: No current labs Discharge Conditions/Prognosis: Stable Discharge to: Home Updated Allergies/ADRs: Allergies Allergen Reactions ??? Latex ??? Codeine Phosphate ??? Erythromycin Base ??? Gloves, Latex ??? Latex Dams Immunizations Given this Hospitalization: Immunization History Administered Date(s) Administered ??? Influenza Vaccine, Whole 01/16/2006 Discharge Medications: Your Medications New Medications Dose Details acetaminophen 500 mg Tab Commonly known as: TYLENOL Take 2 tablets by mouth every 6 hours as needed for Pain. Do not exceed 4000 mg per 24 hours. 1,000 mg Quantity: 30 tablet Refills: 1 Continued medications, unchanged Dose Details ADVAIR HFA INHL Refills: 0 albuterol 2.5 mg /3 mL (0.083 %) Nebu Commonly known as: PROVENTIL Take 2.5 mg by nebulization nightly. 2.5 mg Refills: 0 amitriptyline 25 mg Tab Commonly known as: ELAVIL Refills: 0 cetirizine 10 mg Tab Commonly known as: ZyrTEC Refills: 0 * FLUoxetine 40 mg Cap Commonly known as: PROzac Daily. Refills: 0 * FLUoxetine 20 mg Cap Commonly known as: PROzac Refills: 0 gabapentin 300 mg Cap Commonly known as: NEURONTIN Every 8 hours. Refills: 0 HYDROmorphone 2 mg Tab Commonly known as: DILAUDID Take by mouth daily. Takes 1-2 tablets daily Refills: 0 Magnesium Oxide 500 mg Tab TAKE ONE TABLET BY MOUTH EVERY DAY Refills: 3 metFORMIN 1,000 mg Tab Commonly known as: GLUCOPHAGE Every 12 hours. Refills: 0 oxyCODONE-acetaminophen 5-325 mg Tab Commonly known as: PERCOCET Take 1 tablet by mouth daily as needed. 1 tablet Refills: 0 PROPRANOLOL ORAL Refills: 0 rifAMPin 300 mg Cap Commonly known as: RIFADIN Every 12 hours. Refills: 0 SINGULAIR 10 mg Tab Generic drug: montelukast Refills: 0 sucralfate 1 gram Tab Commonly known as: CARAFATE Refills: 0 TIGAN 300 mg Cap 300 MG = 1 Capsule(s), PO, Three times daily Generic drug: trimethobenzamide Refills: 0 traMADol 50 mg Tab Commonly known as: ULTRAM Take 50 mg by mouth daily. 1-2 tablets daily 50 mg Refills: 0 XOPENEX INHL Refills: 0 * This list has 2 medication(s) that are the same as other medications prescribed for you. Read thedirections carefully, and ask your doctor or other care provider to review them with you. Smoking Status at Discharge: Social History Tobacco Use Smoking Status Never Smoker Smokeless Tobacco Never Used Instructions Given to Patient at Discharge: Patient Instructions Instructions following Cystoscopic Surgery with a ureteral stent Wound Care: None needed Activity: As tolerated by your comfort level. Urination: You will likely have a small amount of blood in your urine for the next several days, upto 10-14 days. This is normal; however, if you are passing large amounts of blood clots, bright redblood or are bleeding an unable to urinate please call our office at [phone] before 5PM or [phone] after hours. Kidney Stone Patients: Try and drink enough fluid to make one half gallon of urine daily. Ureteral Stent Patients: If you have a ureteral stent in place, it is normal for it to cause some irritation in your bladder. You may feel that you need to urinate often or with urgency, also there may be irritation when you urinate. This is normal. If you cannot tolerate this irritation or if you have severe back or side pain, you should call our office [phone] before 5PM or [phone] after hours. Call Doctor for: Please call if you have copious blood in your urine, severe back or side pain, pain not controlled by pain medications, persistent nausea and vomiting, or for any fevers greater [id number] F. The number for questions is [phone] before 5 PM weekdays and [phone] after 5 PM and weekends. Pain Medication: No driving for 8 hours after any dose of opioid pain medication if one was prescribed for you. You may use ibuprofen (motrin, advil) in addition to this medication if your pain is not totally controlled by the opioid. Follow-up: Please call [phone] (clinic number for appointments) to confirm date and time of your appointment if you do not receive your apointment in 1 week. You should receive a phone call fromyour surgeon with a discussion of pathology results within 7-10 days of surgery. If you have not heard by 10 days post-op, please call our office. You have a ureteral stent in place. It is important to remember that a stent is not a permanent device and must be removed in a timely fashion. Failure to remove a stent may result in the need for more procedures. General Instructions None Future Appointments and Orders Future Appointments and Orders Future Appointments Provider Department Dept Phone 12/04/2018 12:30 PM Reggie Hull MD Infectious Disease at [facility] Arrive at: Renal Dialysis Technician Area [phone] Follow-Up: Future Appointments Date Time Provider Department Center 12/04/2018 12:30 PM Reggie Hull MD [facility] [address] [place] [address] Primary Care Provider: Gissell Davis, THREAT ANALYST [phone] Follow-up Recommendations for Providers: Please see discharge instructions. Call your doctor if: Please call your doctor immediately or go to an Emergency Department if you notice worsening pain not controlled by pain medications, uncontrolled headache, vision changes, chest pain, difficulty breathing, persistent nausea and vomiting, new redness or swelling in any extremities, new onset weakness or changes in sensation, or for any fevers greater than 101.3 F. Your care was managed by the Urology Team at [facility]. If you have any questions or concerns, please feel free to contact us. Provider Contact Information: Urology Clinic: [facility] (after business hours): documented in this encounter Discharge Instructions * Patient Instructions* Sara Lindquist PA - 10/16/2018 12:11 PM EDT Instructions following Cystoscopic Surgery with a ureteral stent Wound Care: None needed Activity: As tolerated by your comfort level. Medications: Please resume all of your usual home medications. You have been prescribed a medicine called tamsulosin to help you tolerated your stents. Take one daily. Urination: You will likely have a small amount of blood in your urine for the next several days, upto 10-14 days. This is normal; however, if you are passing large amounts of blood clots, bright redblood or are bleeding an unable to urinate please call our office at [phone] before 5PM or [phone] after hours. Kidney Stone Patients: Try and drink enough fluid to make one half gallon of urine daily. Ureteral Stent Patients: If you have a ureteral stent in place, it is normal for it to cause some irritation in your bladder. You may feel that you need to urinate often or with urgency, also there may be irritation when you urinate. This is normal. If you cannot tolerate this irritation or if you have severe back or side pain, you should call our office [phone] before 5PM or [phone] after hours. Call Doctor for: Please call if you have copious blood in your urine, severe back or side pain, pain not controlled by pain medications, persistent nausea and vomiting, or for any fevers greater [id number] F. The number for questions is [phone] before 5 PM weekdays and [phone] after 5 PM and weekends. Pain Medication: No driving for 8 hours after any dose of opioid pain medication if one was prescribed for you. You may use ibuprofen (motrin, advil) in addition to this medication if your pain is not totally controlled by the opioid. Follow-up: Please call [phone] (clinic number for appointments) to confirm date and time of your appointment if you do not receive your apointment in 1 week. You should receive a phone call fromyour surgeon with a discussion of pathology results within 7-10 days of surgery. If you have not heard by 10 days post-op, please call our office. You have a ureteral stent in place. It is important to remember that a stent is not a permanent device and must be removed in a timely fashion. Failure to remove a stent may result in the need for more procedures. documented in this encounter Medications at Time of Discharge Medication Sig Dispensed Refills Start Date End Date cholecalciferol, Vitamin D3, 50 mcg (2,000 unit) Capsule Daily. 05/19/2015 Lactase 9,000 unit Tablet Daily. 09/05/2016 nystatin (MYCOSTATIN) Cream nystatin 100,000 unit/gram topical cream APPLY TO THE AFFECTED AREA(S) BY TOPICAL ROUTE 2 TIMES PER DAY 05/02/2017 cephALEXin (KEFLEX) 250 mg Capsule Take 1 [...] mouth daily. Takes 1-2 tablets daily 07/08/2010 OXYcodone-acetaminoph en (PERCOCET) 5-325 mg per tablet Take 1 tablet by mouth daily as needed. 07/08/2010 montelukast (SINGULAIR) 10 mg tablet 03/18/2010 cetirizine (ZYRTEC) 10 mg tablet 03/18/2010 LEVALBUTEROL HCL (XOPENEX INHL) 03/18/2010 FLUTICASONE/SALMETERO L (ADVAIR HFA INHL) 03/18/2010 sucralfate (CARAFATE) 1 gram tablet 03/18/2010 PROPRANOLOL HCL (PROPRANOLOL ORAL) 03/18/2010 FLUoxetine (PROZAC) 20 mg capsule 03/18/2010 amitriptyline (ELAVIL) 25 mg tablet 03/18/2010 trimethobenzamide (TIGAN) 300 mg capsule 300 MG = 1 Capsule(s), PO, Three times daily 03/18/2010 tamsulosin (FLOMAX) 0.4 mg Capsule Take 1 capsule by mouth daily. 60 tablet 10/17/2018 11/16/2018 documented as of this encounter Progress Notes * Eligio Purcell RN - 10/17/2018 9:10 AM EDT Patient discharged with RN present. Assessment benign with patient completely neurologically intact, lungs CTAB, voiding and abdomen soft and non tender. Urine slightly pink tinged which is expected.Oral medications given this morning. Vitals stable while on RA. Patient given discharge instructions and AVS reviewed with RN at bedside. Made aware of future appointments and when to call MD if needed. Flomax to be picked up at local pharmacy. IV removed. * Alisson Rivers RN - 10/17/2018 5:34 AM EDT Fay returned to the floor from PACU at approximately 1915 last night. She has no complaints of painand only recently stated that she has a headache. She is voiding frequently, ambulating to the bathroom independently, VSS and has been resting comfortably most of the shift. She is curious about possible DC today. Will continue to monitor. * Mariaelena Garcia MD - 10/16/2018 9:03 PM EDT UROLOGY POST-OP NOTE Barbara Chapman is a 48 y.o. female s/p bilateral ureteral stent placement. Subjective: Nausea and emesis x1 episode in PACU, nausea resolved. Tolerating PO. Pain well- controlled. Denies chest pain, SOB. Voiding independently, light pink/red urine. Offers no complaints. Has been OOB with assistance without difficulty. Objective: Temp: [36.7 ??C (98.1 ??F)-37.3 ??C (99.1 ??F)] Heart Rate: [65-77] Resp: [12-17] BP: (133-154)/(75-83) SpO2: [95 %-100 %] Heart Rate from SpO2: [65 bpm-75 bpm] I/O this shift: In: 0 Out: 550 [Urine:550] Physical Exam GEN: NAD. Resting comfortably. CV: RRR, normal S1 S2 sounds. CHEST: CTAB. ABD: Soft, nontender to light palpation, non-distended. EXTR: Moving spontaneously, warm. Assessment/Plan Barbara Chapman is a 48 y.o. female s/p bilateral ureteral stents doing well post-operatively. Vitals stable. Pt tolerating PO, voiding independently with adequate UOP. Pain well-controlled on current regimen. Continue routine post-op management. Mariaelena Garcia MD * Sarah Pappas RN - 10/15/2018 2:55 PM EDT Fay arrived to 403A via stretcher from [facility]. No report received from facility - follow up phone call made. Ambulated with SBA to 403A bed. VSS. Masimo initiated. See EDH for assessment, will continueto monitor. documented in this encounter H&P Notes * Sara Lindquist PA - 10/16/2018 12:16 PM EDT 24 hour interval history and physical exam: Barbara Chapman's condition unchanged since H&P originally performed yesterday Patient Vitals for the past 24 hrs: BP Temp Temp src Resp SpO2 Height Weight 10/16/18 0810 113/64 36.8 ??C (98.3 ??F) Oral 18 96 % -- -- 10/16/18 0319 125/75 36.5 ??C (97.7 ??F) Oral 18 99 % -- -- 10/15/18 2331 114/68 37 ??C (98.6 ??F) Oral 18 97 % -- -- 10/15/18 1956 113/75 37 ??C (98.6 ??F) Oral 20 90 % -- -- 10/15/18 1619 -- -- -- -- -- 160 cm (5' 3) -- 10/15/18 1503 112/74 36.8 ??C (98.2 ??F) Oral 18 98 % -- -- 10/15/18 1458 -- -- -- -- -- -- 86.6 kg (190 lb 14.7 oz) On RA Nonlabored respirations RRR CTAA AP 48 y.o. with bilateral obstructive nephrolithiasis and acute kidney injury. After extensive discussion of the risks, benefits, and alteratives of surgical intervention, the patient consented to proceed with surgery. IV antibiotics ordered Proceed to OR for bilateral ureteral stents and cystoscopy. * Dariela Tom - 10/15/2018 2:17 PM EDT UROLOGY H&P HPI: Barbara Chapman is a 48 y.o. yo female PMH asthma, GERD, DM, depression, anxiety, Right TKA 11/2016, Left TKA 06/2017 c/b by MSSA joint infection and revision who presented to [facility] with flank pain andfound to have bilateral obstructive nephrolithiasis and acute kidney injury. Ms. Chapman states that she developed flank pain about 2 days ago that radiated to her groin. She denied any fevers or chills. She has no history of nephrolithiasis. She denies any irritative voiding/LUTS or hematuria. CT imaging at [facility] showed bilateral ureteral stones. She was afebrile and hemodynamically stable upon admission. Her WBC was 11 and her creatinine was 3.64. UA was negative for nitrites, positive for trace leuk esterase and 5-10 WBC with many squams. This did not reflex for culture. Given her RENAE and bilateral stone burden, she was transferred to [facility] for further urologic care. Upon arrival, Ms. Chapman is hemodynamically stable and afebrile. She states that her pain improved after fentanyl. She is unable to take NSAIDs given her fundoplication. She is currently comfortable,but states that the pain at its worst is unbearable. Past Medical History - Asthma - Depression with anxiety - Diabetes - Gastroporesis - GERD - HLD - Migraines - Obesity Past Surgical History - Bilateral TKA in 2017 and 2018. Left became infected with MSSA requiring explantation and placement of cement spacer. - NissenFundoplication - Abdominal wall hernia repair - Cholecystectomy - Hysterectomy Social History Social History Socioeconomic History ??? Marital status: Spouse name: Not on file ??? Number of children: Not on file ??? Years of education: Not on file ??? Highest education level: Not on file Occupational History ??? Not on file Social Needs ??? Financial resource strain: Not on file ??? Food insecurity: Worry: Not on file Inability: Not on file ??? Transportation needs: Medical: Not on file Non-medical: Not on file Tobacco Use ??? Smoking status: Never Smoker ??? Smokeless tobacco: Never Used Substance and Sexual Activity ??? Alcohol use: Not on file ??? Drug use: Not on file ??? Sexual activity: Not on file Lifestyle ??? Physical activity: Days per week: Not on file Minutes per session: Not on file ??? Stress: Not on file Relationships ??? Social connections: Talks on phone: Not on file Gets together: Not on file Attends jehovah's witness service: Not on file Active member of club or organization: Not on file Attends meetings of clubs or organizations: Not on file Relationship status: Not on file ??? Intimate partner violence: Fear of current or ex partner: Not on file Emotionally abused: Not on file Physically abused: Not on file Forced sexual activity: Not on file Other Topics Concern ??? Not on file Social History Narrative ??? Not on file Family History No family history on file. Allergies Allergen Reactions ??? Latex ??? Codeine Phosphate ??? Erythromycin Base ??? Gloves, Latex ??? Latex Dams Review of Systems ROS: As above and GEN: No fevers, chills, malaise, night sweats NEURO: No headache, change in vision CARDS: No chest pain, palpitations PULM: No SOB, URI GI: No nausea, vomiting, constipation, diarrhea : No hematuria, dysuria, no flank pain MSK:No back/spine pain ENDO: No increased thirst SKIN: No new rashes EXT: No numbness/tigling in extremities, No swelling EXAMINATION: Temp: [36.8 ??C (98.2 ??F)] Resp: [18] BP: (112)/(74) General: Oriented to person, place and time. NAD Cardiopulm: Regular rate, non labored breathing Abdomen: Obese, soft, non-tender, non-distended. Vertical midline incision well healed. No evidenceof CVA tenderness bilaterally. Musculoskeletal: good strength in bilateral upper and lower extremities Neurologic: grossly normal EXT : moves all 4, no edema Recent Labs 10/15/18 1534 WBC 9.6* HGB 10.7* HCT 31.4* PLATELET 237 NA 143 K 3.6 CL 107 CO2 22 BUN 20* CREATININE 2.99* Microbiology: [facility] 10/15: negative for nitrites, positive for trace leuk esterase and 5-10 WBC with many squams. No reflex. UA [facility] 10/15: pending Imaging: CT Abdomen 10/15/18: - 6x10mm stone in proximal left and right ureter. 4mm non-obstructing right renal calculus. 9mm non-obstructing left renal calculus. Assessment: Barbara Chapman is a 48 y.o. female PMH asthma, GERD, DM, depression, anxiety, Right TKA 11/2016, Left TKA 06/2017 c/b by MSSA joint infection and revision by a who presents with bilateral obstructingureteral stones and acute kidney injury. There is no evidence of infection. Her acute kidney injuryis improving. Her electrolytes are within normal. Assessment/Management/Plan: - Admit to Urology - OR as D Case for bilateral stent placement, booked/consent complete, not marked as bilateral case - Medical expulsive therapy - NPO - Strain urine Neuro: Pain control with tylenol, narcotics. Pain reports inability to take NSAIDs 2/2 fundoplication Psych: Home diazepam, fluoxetine, amytriptyline CV: No longer taking ASA Resp: stable on room air, continue home asthma medications GI: WILSON, stool softeners as needed : NPO FEN: LR @ 100, monitor I/O, strain urine, Flomax Endo: history of diabetes, SSI. 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 Ace. Dariela [facility], PGY-2 Consult pager #[phone] Associated attestation - Nena Ace MD - 10/22/2018 12:02 PM EDT I have seen and examined the patient and reviewed the history documented and I agree with the details as written. I have reviewed the laboratory data and viewed the pertinent imaging. The assessment and plan were formulated in discussion with me and I agree with them as documented. Nena Ace MD documented in this encounter Miscellaneous Notes * Op Note - Nena Edwards MD - 10/16/2018 5:32 PM EDT [facility] [place] [facility] Operative Note Patient Name: Barbara Chapman : [id number] MR#: [id number] ?? Case Date: 10/16/2018 ?? Surgeon: Surgeon(s) and Role: * Lisset Gonzales MD - Primary * Nena Edwards MD - Resident ?? Preoperative diagnosis: Bilateral nephrolithiasis ?? Postoperative diagnosis: Bilateral nephrolithiasis ?? Procedure(s) (LRB): CYSTO, STENT PLACEMENT (WRVU 2.82) (Bilateral) CYSTO, RETROGRADE, URETEROPYELOGRAPHY (WRVU 2.37) (Bilateral) ? Anesthesia: General ?? Findings: -left retrograde with filling defect proximal ureter correlating to known stone, 6 fr variable stent placed, urine clear -right retrograde with filling defect in mid ureter correlating to known stone, proximal hydroureteronephrosis, 6 fr variable length stent placed, urine clear ?? Complications: none ?? Estimated Blood Loss: * No values recorded between 10/16/2018 5:01 PM and 10/16/2018 5:19 PM * ?? Specimens removed during surgery: None Fluids: Intraprocedure Crystalloid Total None ?? PRBCs: none (See Anesthesia Record/Report for Other Blood Products) Urine Output: (no urine output recorded) ?? Drains: 6 fr variable length stent in each ureter ?? Disposition: awakened from anesthesia, extubated and taken to the recovery room in a stable condition, having suffered no apparent untoward event. ?? Condition: doing well without problems ?? (Please see the Surgical Encounter Summary for any Implant and Specimen details pertinent to this patient.) HPI/Surgical Indications: Barbara Chapman is a 48 yo F with bilateral obstructing ureteral stones andAKI presenting for cystoscopy and bilateral ureteral stent placement. Procedure Description: The patient was identified in the pre-operative holding area. Consent was verified. The correct side of the procedure was marked. The patient was taken to the operating room and placed supine on the operating table. General anesthesia was induced. The patient was then moved to the lithotomy position and prepped and draped in the usual sterile fashion. A timeout was performed involving all members of the OR team confirming the patient's identity and planned procedure. Preoperative antibiotics were administered (IV cipro). A 22 Fr rigid cystoscope was inserted into the bladder. 360 degree cystoscopy revealed a normal appearing bladder without any tumors, mucosal lesions, stones or signs of cystitis. Next a Pollack catheter was inserted into the left UO and contrast was instilled revealing a filling defect in the proximal ureter, corresponding to the known stone. A glidewire was inserted via the pollack catheter andnoted to be within the renal pelvis on fluoroscopy. The Pollack catheter was then removed and a 6 fr variable length double-J stent was passed over the wire. The proximal coil was visualized on fluoroscopy to be within the renal pelvis, and the distal coil was seen with direct visualization in the b ladder. Attention was turned to the right side, where the same procedure was performed. The retrograde showed a filling defect in the mid ureter, and proximal hydroureteronephrosis. A 6fr variable length stent was placed on this side as well. The bladder was emptied. The cystoscope was removed. The patient tolerated the procedure well and was awakened from anesthesia with no adverse events. The patient was taken to the recovery area in stable condition. Dr. Gonzales, the attending surgeon, was present for the entire procedure. Infection Bundle used? N/A Associated attestation - Lisset Gonzales MD - 10/17/2018 8:54 AM EDT Attestation: Case Date: 10/16/2018 I performed the procedure with the assistance of the resident. I performed or directly supervised all critical aspects. Notes: -left retrograde with filling defect proximal ureter correlating to known stone, 6 fr variable stent placed, urine clear -right retrograde with filling defect in mid ureter correlating to known stone, proximal hydroureteronephrosis, 6 fr variable length stent placed, urine clear LISSET GONZALES MD 10/17/2018 * Brief Op Note - Nena Edwards MD - 10/16/2018 5:27 PM EDT Brief Operative Note Patient Name: Barbara Chapman : [id number] MR#: [id number] Case Date: 10/16/2018 Surgeon: Surgeon(s) and Role: * Lisset Gonzales MD - Primary * Nena Edwards MD - Resident Preoperative diagnosis: Bilateral nephrolithiasis Postoperative diagnosis: Bilateral nephrolithiasis Procedure(s) (LRB): CYSTO, STENT PLACEMENT (WRVU 2.82) (Bilateral) CYSTO, RETROGRADE, URETEROPYELOGRAPHY (WRVU 2.37) (Bilateral) Anesthesia: General Findings: -left retrograde with filling defect proximal ureter correlating to known stone, 6 fr variable stent placed, urine clear -right retrograde with filling defect in mid ureter correlating to known stone, proximal hydroureteronephrosis, 6 fr variable length stent placed, urine clear Complications: none Estimated Blood Loss: * No values recorded between 10/16/2018 5:01 PM and 10/16/2018 5:19 PM * Specimens removed during surgery: None Fluids: Intraprocedure Crystalloid Total None PRBCs: none (See Anesthesia Record/Report for Other Blood Products) Urine Output: (no urine output recorded) Drains: 6 fr variable length stent in each ureter Disposition: awakened from anesthesia, extubated and taken to the recovery room in a stable condition, having suffered no apparent untoward event. Condition: doing well without problems (Please see the Surgical Encounter Summary for any Implant and Specimen details pertinent to this patient.) Infection Bundle used? N/A * Plan of Care - Saarh Pappas RN - 10/16/2018 5:12 PM EDT Problem: Patient Care Overview Goal: Plan of Care Review Outcome: Ongoing (Interventions Implemented as Appropriate) 10/15/18 1721 10/16/18 0912 Coping/Psychosocial Plan Of Care Reviewed With -- patient Plan of Care Review Progress no change -- OUTCOME EVALUATION NOTE: OUTCOME SUMMARY: Fay had an ok day. Pain controlled with scheduled tylenol and prn IV dilaudid. Straining urine all day with no remarkable findings. Very impatient about waiting for OR time today, went to OR around 1628. PLAN MOVING FORWARD: Pain control INDIVIDUALIZED FALL PREVENTION INTERVENTIONS: Patient-specific fall risk factors per assessment: [current deficits]: Narcotics Assistance [level of assistance required for transfers and ambulation]: SBA Supervision [direct monitoring required during toileting and ADLs]: Minimal assist with ADLs Surveillance [continuous indirect monitoring]: Purposeful rounding, call johnston within reach Patient-specific fall prevention interventions for sensory deficits provided, if applicable: [X] Yes nonslip socks when OOB CPG GOAL OUTCOME EVALUATION: Goal: Individualization & Mutuality Outcome: Ongoing (Interventions Implemented as Appropriate) 10/15/18 1721 Mutuality/Individual Preferences What Anxieties, Fears or Concerns Do You Have About Your Health or Care? none What Questions Do You Have About Your Health or Care? none What Information Would Help Us Give You More Personalized Care? likes to be called Fay Goal: Fall Prevention-Safe Patient Handling Outcome: Ongoing (Interventions Implemented as Appropriate) 10/15/18 1721 10/16/18 0915 10/16/18 1413 Daily Care Interventions Self-Care Promotion independence encouraged;BADL personal objects within reach;BADL personal routines maintained -- -- Waterman Fall Risk History of Falling -- 0 -- Secondary Diagnosis -- 15 -- Ambulatory Aids -- 0 -- Intravenous Therapy/Heparin/Saline Lock -- 20 -- Gait/Transferring -- 0 -- Mental Status -- 0 -- Score -- 35 -- OTHER Waterman Fall Risk -- Med -- Restraint Interventions Safety Promotion/Fall Prevention -- activity supervised;fall prevention program maintained;nonskid shoes/slippers when out of bed;safety round/check completed -- Positioning Body Position -- independent -- Activity Activity Type -- -- up ad seamus Activity Assistance Provided -- -- assistance, stand-by Assistive Device Utilized -- -- none Goal: Infection Control Outcome: Ongoing (Interventions Implemented as Appropriate) 10/16/18 0912 10/16/18 0915 Safety Interventions Isolation Precautions -- standard precautions maintained Infection Prevention -- environmental surveillance performed;rest/sleep promoted Coping Strategies Supportive Measures active listening utilized;goal setting facilitated;self-care encouraged;self-reflection promoted -- Goal: Discharge Needs Assessment Outcome: Ongoing (Interventions Implemented as Appropriate) 10/15/18 1721 10/16/18 0229 Living Environment Transportation Available car;family or friend will provide -- Discharge Needs Assessment Concerns To Be Addressed -- denies needs/concerns at this time Discharge Disposition still a patient -- * Consult Note - Ángela Cabral [facility] - 10/16/2018 8:25 AM EDT Clinical Pharmacist Note - Renal Dose Adjustment for Antimicrobials Barbara Chapman (A# [id number]) is being treated with the following antimicrobial agent(s) which require dose adjustment based on current renal function: 1. Cephalexin 500 mg PO TID The indication for antimicrobial treatment is: 6 month course with rifampin for infected TKA Pharmacokinetic information: Height: Ht Readings from Last 1 Encounters: 10/15/18 160 cm (5' 3) Weight: Wt Readings from Last 1 Encounters: 10/15/18 86.6 kg (190 lb 14.7 oz) Body mass index is 33.82 kg/m??. Estimated Creatinine Clearance: 23.7 mL/min (A) (based on SCr of 2.99 mg/dL (H)). Recent Labs 10/15/18 1534 CREATININE 2.99* BUN 20* I/O Yesterday: 10/15 0701 - 10/16 0700 In: 1466 [P.O.:360; I.V.:1106] Out: 820 [Urine:820] Recommendations: Based on current renal function assessment, the following change(s) have been made to the patient'santimicrobial regimen: 1. For CrCl 15 to 29 mL/min, dose cephalexin 250 mg PO Q8h We will continue to monitor the patient???s renal function and adjust antimicrobial dosing as needed. Please page the care area pharmacist with any questions you may have. Per P&T approved Renal Dose Adjustment Policy Ángela Cabral RPH * Initial Assessments - Lima Morales, RN - 10/16/2018 7:56 AM EDT Office of Care Management Assessment Medical record reviewed. Plan of care and patient status discussed with direct care RN and/or Care Team in multidisciplinary rounds. Screen[age] y.o. 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 CT confirmed bilateral ureteral stones. Present on Admission: ??? Bilateral nephrolithiasis Patient has been admitted to a hospital within the last 30 days. Information known about that admission: in note above Patient receiving hospital care under Inpatient status. Admission order reviewed. Primary Insurance on file: MEDICARE Secondary Insurance on file: N/A Primary care provider on file: Gissell Davis, THREAT ANALYST [phone] Advance Directive on file and Code Status: Full Code Patient???s Functional Status: Independent Living Situation: [address] [place] [address] Supports: Assessment: Patient with no apparent RNCM/SW needs at this time. No housing, transportation, insurance, resources concerns identified at this time. Supports in place to achieve a safe post-hospital transition. No identified barriers to accessing necessary care and/or follow-up after discharge. Plan: Patient to d/c home via personal car when medically ready. economics instructor/Studio Manager will continue to follow patient???s progress and remain available if situation changes for coordination of care, psychosocial support and/or discharge planning. Lima Morales, RN Pager [phone] * Plan of Care - Yaneli Gómez RN - 10/16/2018 2:32 AM EDT Problem: Patient Care Overview Goal: Plan of Care Review Outcome: Ongoing (Interventions Implemented as Appropriate) 10/15/18 17210/15/18 214 Coping/Psychosocial Plan Of Care Reviewed With -- patient Plan of Care Review Progress no change -- OUTCOME EVALUATION NOTE: OUTCOME SUMMARY: Fay has had a good night. Adequate UOP; urine strained. No BM. Reporting pain well controlled with PRN oxycodone. NPO at midnight. Sleeping intermittently between care. Will continue to monitor. PLAN MOVING FORWARD: Monitor for signs/symptoms of infection, pain management, encourage IS, OR INDIVIDUALIZED FALL PREVENTION INTERVENTIONS: Patient-specific fall risk factors per assessment: [current deficits]: Generalized weakness, IV tubing, narcotic use Assistance [level of assistance required for transfers and ambulation]: SBA Supervision [direct monitoring required during toileting and ADLs]: Arms reach Surveillance [continuous indirect monitoring]: Delmer Torrez within reach, Purposeful rounding Patient-specific fall prevention interventions for sensory deficits provided, if applicable: [X] Yes non-skid socks when OOB CPG GOAL OUTCOME EVALUATION: Goal: Individualization & Mutuality Outcome: Ongoing (Interventions Implemented as Appropriate) 10/15/18 1721 Mutuality/Individual Preferences What Anxieties, Fears or Concerns Do You Have About Your Health or Care? none What Questions Do You Have About Your Health or Care? none What Information Would Help Us Give You More Personalized Care? likes to be called Fay Goal: Fall Prevention-Safe Patient Handling Outcome: Ongoing (Interventions Implemented as Appropriate) 10/15/18172010/15/182148 Daily Care Interventions Self-Care Promotion independence encouraged;BADL personal objects within reach;BADL personal routines maintained -- Waterman Fall Risk History of Falling -- 0 Secondary Diagnosis -- 15 Ambulatory Aids -- 0 Intravenous Therapy/Heparin/Saline Lock -- 20 Gait/Transferring -- 0 Mental Status -- 0 Score -- 35 OTHER Waterman Fall Risk -- Med Restraint Interventions Safety Promotion/Fall Prevention -- activity supervised;nonskid shoes/slippers when out of bed;safety round/check completed Positioning Body Position -- independent Activity Activity Type -- activity adjusted per tolerance Activity Assistance Provided -- assistance, stand-by Assistive Device Utilized -- none Goal: Infection Control Outcome: Ongoing (Interventions Implemented as Appropriate) 10/15/182148 Safety Interventions Isolation Precautions standard precautions maintained Infection Prevention environmental surveillance performed;rest/sleep promoted Coping Strategies Supportive Measures active listening utilized;self-care encouraged;self- responsibility promoted;verbalization of feelings encouraged Goal: Discharge Needs Assessment Outcome: Ongoing (Interventions Implemented as Appropriate) 10/16/18228 Discharge Needs Assessment Concerns To Be Addressed denies needs/concerns at this time Goal: Interdisciplinary Rounds/Family Conf Outcome: Ongoing (Interventions Implemented as Appropriate) 10/16/18228 Interdisciplinary Rounds/Family Conf Participants nursing;patient * Plan of Care - Sarah Pappas RN - 10/15/2018 5:27 PM EDT Problem: Patient Care Overview Goal: Plan of Care Review Outcome: Ongoing (Interventions Implemented as Appropriate) 10/15/181720 Coping/Psychosocial Plan Of Care Reviewed With patient Plan of Care Review Progress no change OUTCOME EVALUATION NOTE: OUTCOME SUMMARY: Fay arrived from [facility]SH this afternoon. C/o pain in R flank area radiating to lower R abdomen. Pain controlled with prn tylenol and oxycodone. UA sent. Straining urine. LR initiated at 100mL/hr. Pt remains NPO for OR either tonight or tomorrow. PLAN MOVING FORWARD: Pain control, awaiting OR INDIVIDUALIZED FALL PREVENTION INTERVENTIONS: Patient-specific fall risk factors per assessment: [current deficits]: Narcotics, drains/devices Assistance [level of assistance required for transfers and ambulation]: SBA Supervision [direct monitoring required during toileting and ADLs]: Minimal assist with ADLs Surveillance [continuous indirect monitoring]: Purposeful rounding, call johnston within reach Patient-specific fall prevention interventions for sensory deficits provided, if applicable: [X] Yes CPG GOAL OUTCOME EVALUATION: Goal: Individualization & Mutuality Outcome: Ongoing (Interventions Implemented as Appropriate) 10/15/181720 Mutuality/Individual Preferences What Anxieties, Fears or Concerns Do You Have About Your Health or Care? none What Questions Do You Have About Your Health or Care? none What Information Would Help Us Give You More Personalized Care? likes to be called Fay Goal: Fall Prevention-Safe Patient Handling Outcome: Ongoing (Interventions Implemented as Appropriate) 10/15/18 1506 10/15/18 1530 10/15/18 172 Daily Care Interventions Self-Care Promotion -- -- independence encouraged;BADL personal objects within reach;BADL personal routines maintained Waterman Fall Risk History of Falling 0 -- -- Secondary Diagnosis 15 -- -- Ambulatory Aids 0 -- -- Intravenous Therapy/Heparin/Saline Lock 20 -- -- Gait/Transferring 0 -- -- Mental Status 0 -- -- Score 35 -- -- OTHER Waterman Fall Risk Med -- -- Restraint Interventions Safety Promotion/Fall Prevention -- activity supervised;fall prevention program maintained;nonskid shoes/slippers when out of bed;safety round/check completed -- Positioning Body Position -- independent -- Activity Activity Type -- activity adjusted per tolerance -- Activity Assistance Provided -- assistance, stand-by -- Assistive Device Utilized -- none -- Goal: Infection Control Outcome: Ongoing (Interventions Implemented as Appropriate) 10/15/18 1506 10/15/18 153 Safety Interventions Isolation Precautions -- standard precautions maintained Infection Prevention -- environmental surveillance performed;rest/sleep promoted Coping Strategies Supportive Measures active listening utilized;goal setting facilitated;self-care encouraged;self-reflection promoted -- Goal: Discharge Needs Assessment 10/15/181720 Living Environment Transportation Available car;family or friend will provide Discharge Needs Assessment Discharge Disposition still a patient documented in this encounter Plan of Treatment Pending Results Name Type Priority Associated Diagnoses Date /Time XR Fluoro <1Hr - Radiology Use Imaging Routine 10/16/2018 5:20 PM EDT Scheduled Orders Name Type Priority Associated Diagnoses Orde r Schedule XR Fluoro <1Hr - Radiology Use Imaging Routine Once PRN (for Ra diant use) for 1 Occurrences starting 10/16/2018 until 10/16/2018 documented as of this encounter Procedures Procedure Name Priority Date/Time Associated Diagnosis Comments HC VENIPUNCTURE Routine 10/17/2018 5:08 AM EDT POCT GLUCOSE Routine 10/17/2018 4:38 AM EDT POCT GLUCOSE Routine 10/16/2018 11:48 PM EDT POCT GLUCOSE Routine 10/16/2018 8:06 PM EDT POCT GLUCOSE Routine 10/16/2018 5:52 PM EDT CYSTO,RETROGRADE,URE TEROPYELOGRAPHY Routine 10/16/2018 5:27 PM EDT Cystourethroscopy, Ureter Catheter ([id number]) 10/16/2018 4:34 PM EDT Bilateral nephrolithiasis Cystoscopy, Insert Ureteral Stent ([id number]) 10/16/2018 4:34 PM EDT Bilateral nephrolithiasis POCT GLUCOSE Routine 10/16/2018 4:18 PM EDT POCT GLUCOSE Routine 10/16/2018 11:43 AM EDT POCT GLUCOSE Routine 10/16/2018 8:07 AM EDT POCT GLUCOSE Routine 10/16/2018 3:21 AM EDT POCT GLUCOSE Routine 10/15/2018 11:33 PM EDT POCT GLUCOSE Routine 10/15/2018 7:16 PM EDT POCT GLUCOSE Routine 10/15/2018 4:06 PM EDT HEMOGRAM STAT 10/15/2018 3:34 PM EDT DIFFERENTIAL, AUTOMATED STAT 10/15/2018 3:34 PM EDT HC CBC,PLT & AUTO DIFF STAT 10/15/2018 3:34 PM EDT HC VENIPUNCTURE STAT 10/15/2018 3:34 PM EDT URINALYSIS WITH REFLEX CULTURE Routine 10/15/2018 3:27 PM EDT CYSTO, STENT PLACEMENT Routine 10/15/2018 3:18 PM EDT documented in this encounter Results * (ABNORMAL) Basic Metabolic Panel (non-fasting) (10/17/2018 5:08 AM EDT) Glucose 110 65 - 199 mg/dL [facility] Comment:Diabetes: >=200 mg/d L plus symptoms Blood Urea Nitrogen 16 8 - 18 mg/dL [facility] Creatinine 1.95(H) 0.70 - 1.20 mg/dL [facility] Comment:result rechecked-ssd Sodium 141 135 - 145 mmol/L [facility] Potassium 3.3(L) 3.5 - 5.0 mmol/L [facility] Comment: Please note: ??Patients with WBC >100,000 may have falsely elevated Potassium levels. ??For accurate Potassium quantification in these patients send serum separator tube (gold top) for subsequent determinations. ??Contact the Clinical Chemistry Laboratory if there are any questions. Chloride 104 98 - 107 mmol/L [facility] Carbon Dioxide 26 22 - 31 mmol/L [facility] Anion Gap 11 5 - 15 mmol/L [facility] Calcium 8.7 8.5 - 10.5 mg/dL [facility] Est Glomerular Filtration Rate 29(L) >=60 mL/min/1. 73 m?? [facility] Comment: The eGFR was calculated using the CKD-EPI equation. As with all creatinine based estimates of kidney function, eGFR values calculated with the CKD-EPI equation are not accurate in patients with acute kidney failure, extremes of body mass or the acutely ill. [email or web address] [email or web address] eGFR 34(L) >=60 mL/min/1. 73 m?? [facility] Comment: The eGFR was calculated using the CKD-EPI equation. As with all creatinine based estimates of kidney function, eGFR values calculated with the CKD-EPI equation are not accurate in patients with acute kidney failure, extremes of body mass or the acutely ill. [email or web address] Blood specimen (specimen) 10/17/2018 5:08 AM EDT 10/17/2018 5:22 AM EDT Narrative Resulting Agency Comment Spec In Lab Nena Ace MD CHEMISTRY ORDERABLES Performing Organization Address [facility] Co de Phone Number [facility] [place] [address] * POCT Glucose (10/17/2018 4:38 AM EDT) Glucose, POC 102 65 - 199 mg/dL [facility] Comment: Supplemental ranges: <140 mg/dL before meals <180 mg/dL all other times of the day Blood specimen (specimen) 10/17/2018 4:38 AM EDT 10/17/2018 4:38 AM EDT Nena Ace MD POINT OF CARE TEST O RDERABLES Performing Organization Address [facility] Co de Phone Number [facility] [place] [address] * POCT Glucose (10/16/2018 11:48 PM EDT) Glucose, POC 133 65 - 199 mg/dL [facility] Comment: Supplemental ranges: <140 mg/dL before meals <180 mg/dL all other times of the day Blood specimen (specimen) 10/16/2018 11:48 PM EDT 10/16/2018 11:48 PM EDT Nena Ace MD POINT OF CARE TEST O MEAGAN Performing Organization Address [facility] Co de Phone Number [facility] [place] [address] * POCT Glucose (10/16/2018 8:06 PM EDT) Glucose, POC 173 65 - 199 mg/dL [facility] Comment: Supplemental ranges: <140 mg/dL before meals <180 mg/dL all other times of the day Blood specimen (specimen) 10/16/2018 8:06 PM EDT 10/16/2018 8:06 PM EDT Nena Ace MD POINT OF CARE TEST O MEAGAN Performing Organization Address [facility] Co de Phone Number [facility] [place] [address] * POCT Glucose (10/16/2018 5:52 PM EDT) Glucose, POC 149 65 - 199 mg/dL [facility] Comment: Supplemental ranges: <140 mg/dL before meals <180 mg/dL all other times of the day Blood specimen (specimen) 10/16/2018 5:52 PM EDT 10/16/2018 5:52 PM EDT Nena Ace MD POINT OF CARE TEST O MEAGAN Performing Organization Address [facility] Co de Phone Number [facility] [place] [address] * POCT Glucose (10/16/2018 4:18 PM EDT) Glucose, POC 114 65 - 199 mg/dL [facility] Comment: Supplemental ranges: <140 mg/dL before meals <180 mg/dL all other times of the day Blood specimen (specimen) 10/16/2018 4:18 PM EDT 10/16/2018 4:18 PM EDT Nena Ace MD POINT OF CARE TEST O RDERABLES Performing Organization Address [facility] Co de Phone Number [facility] [place] [address] * POCT Glucose (10/16/2018 11:43 AM EDT) Glucose, POC 123 65 - 199 mg/dL [facility] Comment: Supplemental ranges: <140 mg/dL before meals <180 mg/dL all other times of the day Blood specimen (specimen) 10/16/2018 11:43 AM EDT 10/16/2018 11:43 AM EDT Nena Ace MD POINT OF CARE TEST O RDERAANN Performing Organization Address [facility] Co de Phone Number [facility] [place] [address] * POCT Glucose (10/16/2018 8:07 AM EDT) Glucose, POC 134 65 - 199 mg/dL [facility] Comment: Supplemental ranges: <140 mg/dL before meals <180 mg/dL all other times of the day Blood specimen (specimen) 10/16/2018 8:07 AM EDT 10/16/2018 8:07 AM EDT Nena Ace MD POINT OF CARE TEST O RDERABLES Performing Organization Address [facility] Co de Phone Number [facility] [place] [address] * POCT Glucose (10/16/2018 3:21 AM EDT) Glucose, POC 104 65 - 199 mg/dL [facility] Comment: Supplemental ranges: <140 mg/dL before meals <180 mg/dL all other times of the day Blood specimen (specimen) 10/16/2018 3:21 AM EDT 10/16/2018 3:21 AM EDT Nena Ace MD POINT OF CARE TEST O RDERABLES Performing Organization Address City/[facility]/ZIP Co de Phone Number [facility] [place] [address] * POCT Glucose (10/15/2018 11:33 PM EDT) Glucose, POC 155 65 - 199 mg/dL [facility] Comment: Supplemental ranges: <140 mg/dL before meals <180 mg/dL all other times of the day Blood specimen (specimen) 10/15/2018 11:33 PM EDT 10/15/2018 11:33 PM EDT Nena Ace MD POINT OF CARE TEST O RDERAANN Performing Organization Address [facility] Co de Phone Number [facility] [place] [address] * POCT Glucose (10/15/2018 7:16 PM EDT) Glucose, POC 118 65 - 199 mg/dL [facility] Comment: Supplemental ranges: <140 mg/dL before meals <180 mg/dL all other times of the day Blood specimen (specimen) 10/15/2018 7:16 PM EDT 10/15/2018 7:16 PM EDT Nena Ace MD POINT OF CARE TEST O RDERAANN Performing Organization Address City/[facility]/ZIP Co de Phone Number [facility] [place] [address] * POCT Glucose (10/15/2018 4:06 PM EDT) Glucose, POC 104 65 - 199 mg/dL [facility] Comment: Supplemental ranges: <140 mg/dL before meals <180 mg/dL all other times of the day Blood specimen (specimen) 10/15/2018 4:06 PM EDT 10/15/2018 4:06 PM EDT Nena Ace MD POINT OF CARE TEST O RDERABLES Performing Organization Address City/[facility]/[place] [address] * (ABNORMAL) Differential, Automated (10/15/2018 3:34 PM EDT) Neutrophil % 69.5 % [facility] Neutrophil Absolute 6.68(H) 1.70 - 6.10 x10(3)/mc L [facility] Lymph % 17.5 % [facility] Lymphocytes Abs 1.7 0.9 - 3.2 x10(3)/ L [facility] Monocyte % 11.6 % [facility] Monocyte Abs 1.1(H) 0.3 - 0.9 x10(3)/mc L [facility] Eos % 1.0 % [facility] Eosinophils Abs 0.1 0.0 - 0.4 x10(3)/ L [facility] Basophil % 0.1 % [facility] Baso Absolute 0.0 0.0 - 0.1 x10(3)/mc L [facility] Immature Gran % 0.30 % [facility] Comment: Immature granulocytes(IG's)percentage and absolute count will include metamyelocytes, myelocytes, and promyelocytes. Blood smears from CBCs yielding IG's will be scanned manually for concordance. If this scan disagrees with the automated IG or if promyelocytes are noted, a manual differential will be performed. Immature Gran Absolute 0.03 0.00 - 0.04 x10(3)/mc L [facility] Blood specimen (specimen) 10/15/2018 3:34 PM EDT 10/15/2018 3:45 PM EDT Narrative Resulting Agency Comment Spec In Lab Dariela Tom MD HEMATOLOGY ORDERABLE S Performing Organization Address City/[facility]/ZIP Co de Phone Number [facility] [place] [address] * (ABNORMAL) Hemogram (10/15/2018 3:34 PM EDT) Pathologist [facility] White Blood Cell 9.6(H) 4.0 - 9.5 x10(3)/ L [facility] Red Blood Cell 3.33(L) 4.00 - 5.21 x10(6)/ L [facility] Hemoglobin 10.7(L) 11.7 - 15.5 gm/dL [facility] Hematocrit 31.4(L) 35.7 - 45.8 % [facility] Mean Cell Volume 94.3 82.6 - 94.4 fL [facility] Mean Cell Hemoglobin 32.1(H) 27.1 - 32.0 pg [facility] Mean Cell Hemoglobin Concentration 34.1 31.7 - 35.0 gm/dL [facility] Platelet 237 145 - 357 x10(3)/[facility] RDW Standard Deviation 50.2(H) 37.0 - 46.0 fL [facility] RDW coefficient of variation 14.6(H) 11.5 - 14.1 % [facility] Mean Platelet Volume 10.2 7.6 - 12.9 fL [facility] NRBC% auto 0.0 % [facility] NRBC Absolute 0.000 0.000 - 0.000 x10(3)/[facility] Blood specimen (specimen) 10/15/2018 3:34 PM EDT 10/15/2018 3:45 PM EDT Narrative Resulting Agency Comment Spec In Lab Dariela Tom MD HEMATOLOGY ORDERABLE S [facility] [place] [address] * (ABNORMAL) Basic Metabolic Panel (non-fasting) (10/15/2018 3:34 PM EDT) Pathologist [facility] Glucose 110 65 - 199 mg/dL [facility] Comment:Diabetes: >=200 mg/d L plus symptoms Blood Urea Nitrogen 20(H) 8 - 18 mg/dL [facility] Creatinine 2.99(H) 0.70 - 1.20 mg/dL [facility] Sodium 143 135 - 145 mmol/L [facility] Potassium 3.6 3.5 - 5.0 mmol/L [facility] Comment: Please note: ??Patients with WBC >100,000 may have falsely elevated Potassium levels. ??For accurate Potassium quantification in these patients send serum separator tube (gold top) for subsequent determinations. ??Contact the Clinical Chemistry Laboratory if there are any questions. Chloride 107 98 - 107 mmol/L [facility] Carbon Dioxide 22 22 - 31 mmol/L [facility] Anion Gap 14 5 - 15 mmol/L [facility] Calcium 8.0(L) 8.5 - 10.5 mg/dL [facility] Est Glomerular Filtration Rate 18(L) >=60 mL/min/1. 73 m?? [facility] Comment: The eGFR was calculated using the CKD-EPI equation. As with all creatinine based estimates of kidney function, eGFR values calculated with the CKD-EPI equation are not accurate in patients with acute kidney failure, extremes of body mass or the acutely ill. [email or web address] CITYnkf eGFR 20(L) >=60 mL/min/1. 73 m?? [facility] Comment: The eGFR was calculated using the CKD-EPI equation. As with all creatinine based estimates of kidney function, eGFR values calculated with the CKD-EPI equation are not accurate in patients with acute kidney failure, extremes of body mass or the acutely ill. [email or web address] Blood specimen (specimen) 10/15/2018 3:34 PM EDT 10/15/2018 3:45 PM EDT Narrative Resulting Agency Comment Spec In Lab Nena Ace MD CHEMISTRY ORDERABLES [facility] [place] [address] * Urinalysis with reflex Culture (10/15/2018 3:27 PM EDT) Glucose, Urine Dipstick Negative Negative mg/dL [facility] Protein, Urine Dipstick Negative Negative mg/dL [facility] Bilirubin, Urine Dipstick Negative Negative mg/dL [facility] Comment: Clinical correlation required for positive Urine Bilirubin results as false positive may occur with some drugs and drug related products. If a false positive is suspected a serum total bilirubin should be considered if clinically indicated. Urobilinogen, Urine Dipstick Normal Normal mg/dL [facility] pH, Urn (dipstick) 5.0 5.0 - 8.0 [facility] Blood, Urine Dipstick Negative Negative mg/dL [facility] Ketone, Urine Dipstick Negative Negative mg/dL [facility] Nitrite, Urine Dipstick Negative Negative [facility] Leukocytes, Urine Dipstick Negative Negative [facility] Appearance, Urine Dipstick Clear Clear [facility] Specific [place] Urine Automated 1.013 1.002 - 1.030 [facility] Color, Urine Dipstick Yellow Yellow [facility] Reflex to Culture No [facility] Urine specimen obtained by clean catch procedure (specimen) 10/15/2018 3:27 PM EDT 10/15/2018 3:48 PM EDT Narrative Resulting Agency Comment Spec In Lab Nnea Ace MD URINE ORDERABLES Performing Organization Address [facility]/ZIP Co de Phone Number [facility] [place] [address] documented in this encounter Visit Diagnoses Diagnosis Bilateral nephrolithiasis documented in this encounter Admitting Diagnoses Diagnosis Bilateral nephrolithiasis documented in this encounter Administered Medications Inactive Administered Medications - up to 3 most recent administrations Medication Order MAR Action Action Date Dose Rate Site acetaminophen (TYLENOL) tablet 1,000 mg 1,000 mg, Oral, EVERY 6 HOURS SCHEDULED, First dose (after last modification) on Mon10/16/18 at 0000, Until Discontinued, Administer for temperature greater than or equal to 38.2 degrees celsius. Maximum daily dose of acetaminophen from all sources not to exceed 4,000 mg., Routine Given 10/17/2018 5:31 AM EDT 1,000 mg Given 10/17/2018 12:26 AM EDT 1,000 mg Given 10/16/2018 11:04 AM EDT 1,000 mg acetaminophen (TYLENOL) tablet 650 mg 650 mg, Oral, EVERY 6 HOURS PRN, Starting on Mon10/15/18 at 1518, Until Mon10/15/18 at 1814, Pain, Fever, Administer for temperature greater than or equal to 38.2 degrees celsius. Maximum daily dose of acetaminophen from all sources not to exceed 4,000 mg., Routine Given 10/15/2018 4:09 PM EDT 650 mg albuterol (PROVENTIL) nebulizer solution 2.5 mg 2.5 mg, Nebulization, EVERY 4 HOURS PRN, Starting on Mon10/15/18 at 1518, Until Mon10/17/18 at 1209, Wheezing, Routine Given 10/16/2018 10:23 PM EDT 2.5 mg Given 10/16/2018 9:38 AM EDT 2.5 mg Given 10/15/2018 6:58 PM EDT 2.5 mg amitriptyline (ELAVIL) tablet 25 mg 25 mg, Oral, NIGHTLY, First dose on Mon10/15/18 at 2100, Until Discontinued, Routine Given 10/16/2018 8:47 PM EDT 25 mg Given 10/15/2018 9:49 PM EDT 25 mg cephALEXin (KEFLEX) capsule 250 mg 250 mg, Oral, 3 TIMES DAILY, First dose on Mon10/16/18 at 0900, Until Discontinued, Routine, Indication for (Active or Suspected): Bone/Joint Given 10/17/2018 8:41 AM EDT 250 mg Given 10/16/2018 8:47 PM EDT 250 mg Given 10/16/2018 2:04 PM EDT 250 mg dextrose 50% intravenous solution 25-50 mL 25-50 mL (12.5-25 g), Intravenous, EVERY 1 HOUR PRN, Starting on Mon10/15/18 at 1518, Until Mon10/17/18 at 1209, Low blood sugar, For BG 50-70 mg/dL: Oral treatment preferred:?? If able to drink, give 120 mL Juice or Regular (not diet) soda OR If NPO, give 15 gram glucose 40% oral gel massaged into buccal mucosa OR if unconscious or uncooperative, give 12.5 gram (25 mL) Dextrose 50% IV OR, if no IV access, give 1 mg Glucagon IM. For BG less than 50 mg/dL: Oral treatment preferred:?? If able to drink, give 240 mL Juice or Regular (not diet) soda OR If NPO, give 30 gram glucose 40% oral gel massaged in buccal mucosa OR if unconscious or uncooperative, give 25 gram (50 mL) Dextrose 50% IV OR, if no IV access, give 1 mg Glucagon IM. Recheck BG in 30 minutes. May repeat juice, gel, dextrose or glucagon once per episode. To avoid extravasation, push Dextrose 50% SLOWLY (3 mL over 1 minute) in a patent, running IV, preferably a central line. For persistent hypoglycemia, consider longer-acting treatment for the duration of the active insulin., Routine FLUoxetine (PROzac) capsule 20 mg 20 mg, Oral, DAILY, First dose on Mon10/16/18 at 0900, Until Discontinued, Routine Given 10/17/2018 8:42 AM EDT 20 mg Given 10/16/2018 9:12 AM EDT 20 mg glucagon (human recombinant) injection SolR 1 mg 1 mg, Intramuscular, EVERY 1 HOUR PRN, Starting on Mon10/15/18 at 1518, Until Mon10/17/18 at 1209, Low blood sugar, For BG 50-70 mg/dL: Oral treatment preferred:?? If able to drink, give 120 mL Juice or Regular (not diet) soda OR If NPO, give 15 gram glucose 40% oral gel massaged into buccal mucosa OR if unconscious or uncooperative, give 12.5 gram (25 mL) Dextrose 50% IV OR, if no IV access, give 1 mg Glucagon IM. For BG less than 50 mg/dL: Oral treatment preferred:?? If able to drink, give 240 mL Juice or Regular (not diet) soda OR If NPO, give 30 gram glucose 40% oral gel massaged in buccal mucosa OR if unconscious or uncooperative, give 25 gram (50 mL) Dextrose 50% IV OR, if no IV access, give 1 mg Glucagon IM. Recheck BG in 30 minutes. May repeat juice, gel, dextrose or glucagon once per episode. To avoid extravasation, push Dextrose 50% SLOWLY (3 mL over 1 minute) in a patent, running IV, preferably a central line. For persistent hypoglycemia, consider longer-acting treatment for the duration of the active insulin., Routine glucose (GLUTOSE) 40% oral gel 15-30 g, Buccal, EVERY 30 MIN PRN, Starting on Mon10/15/18 at 1518, Until Mon10/17/18 at 1209, Low blood sugar, For BG 50-70 mg/dL: Oral treatment preferred:?? If able to drink, give 120 mL Juice or Regular (not diet) soda OR If NPO, give 15 gram glucose 40% oral gel massaged into buccal mucosa OR if unconscious or uncooperative, give 12.5 gram (25 mL) Dextrose 50% IV OR, if no IV access, give 1 mg Glucagon IM. For BG less than 50 mg/dL: Oral treatment preferred:?? If able to drink, give 240 mL Juice or Regular (not diet) soda OR If NPO, give 30 gram glucose 40% oral gel massaged in buccal mucosa OR if unconscious or uncooperative, give 25 gram (50 mL) Dextrose 50% IV OR, if no IV access, give 1 mg Glucagon IM. Recheck BG in 30 minutes. May repeat juice, gel, dextrose or glucagon once per episode. To avoid extravasation, push Dextrose 50% SLOWLY (3 mL over 1 minute) in a patent, running IV, preferably a central line. For persistent hypoglycemia, consider longer-acting treatment for the duration of the active insulin. 1 tube contains 15 grams of glucose (net weight of tube = 37.5 grams., Routine heparin (Porcine) subcutaneous injection 5,000 Units 5,000 Units, Subcutaneous, EVERY 8 HOURS SCHEDULED, First dose on Mon10/15/18 at 1545, Until Discontinued, Routine Given 10/17/2018 5:32 AM EDT 5,000 Unit s Given 10/16/2018 10:21 PM EDT 5,000 Units Given 10/16/2018 2:04 PM EDT 5,000 Units HYDROmorphone (DILAUDID) injection 0.3 mg 0.3 mg, Intravenous, EVERY 2 HOURS PRN, Starting on Mon10/15/18 at 1813, Until Mon10/17/18 at 1209, Pain, for pain not controlled with PO pain medication, Routine Given 10/16/2018 4:03 PM E DT 0.3 mg Given 10/16/2018 11:15 AM EDT 0.3 mg Given 10/16/2018 9:12 AM EDT 0.3 mg insulin lispro (HumaLOG) VIAL injection 1-4 Units 1-4 Units, Subcutaneous, EVERY 4 HOURS SCHEDULED, First dose on Mon10/15/18 at 1600, Until Discontinued, CORRECTION BOLUS Sensitive to insulin lean patient or total daily dose of all insulin needed to achieve glycemic control less than 30 units BG 140 - 160 Give 1 unit BG 161 - 200 Give 2 units BG 201 - 240 Give 3 units BG greater than 240, give 4 units and recheck BG in 2 hours. If less than 240 after two hours, give no insulin and resume prior schedule. If BG remains greater than 240, repeat 4 units (no more than three times) & call for new basal insulin orders. Do not hold if NPO, unless specifically told to do so., Routine Given 10/16/2018 8:47 PM EDT 2 Units Given 10/15/2018 11:38 PM EDT 1 Units lactated ringers infusion 1,000 mL, at 100 mL/hr, Intravenous, CONTINUOUS, Starting on Mon10/15/18 at 1545, Until Mon10/16/18 at 1933 New Bag 10/16/2018 2:06 AM EDT 1,000 mLs 100 m L/hr New Bag 10/15/2018 4:09 PM EDT 1,000 mLs 100 mL/hr montelukast (SINGULAIR) tablet 10 mg 10 mg, Oral, NIGHTLY, First dose on Mon10/15/18 at 2100, Until Discontinued, Routine Given 10/16/2018 8:47 PM EDT 10 mg Given 10/15/2018 9:49 PM EDT 10 mg ondansetron (ZOFRAN) injection 4 mg 4 mg, Intravenous, EVERY 30 MIN PRN, Starting on Mon10/16/18 at 1731, Until Mon10/16/18 at 1857, Nausea, May repeat 4 mg once in 30 minutes. If multiple antiemetics ordered, use ondansetron first and if ineffective use prochlorperazine second and if ineffective use promethazine, PACU Recovery Given 10/16/2018 6:06 PM EDT 4 mg ondansetron (ZOFRAN) injection 4-8 mg 4-8 mg, Intravenous, EVERY 8 HOURS PRN, Starting on Mon10/15/18 at 1518, Until Mon10/17/18 at 1209, Nausea, Start with 4mg and if ineffective in 30 minutes, give an additional 4mg If multiple antiemetics are ordered, give ondansetron first. Given 10/15/2018 4:13 PM EDT 4 mg ondansetron (ZOFRAN) tablet 4-8 mg 4-8 mg, Oral, EVERY 8 HOURS PRN, Starting on Mon10/15/18 at 1518, Until Mon10/17/18 at 1209, Nausea, Vomiting, If multiple antiemetics are ordered, use ondansetron first. PO Preferred. If patient unable to take PO, may give IV if ordered. Start with 4mg and if ineffective in 45 minutes, give an additional 4mg. If unable to take PO, may give IV., Routine oxyCODONE (ROXICODONE) immediate release tablet 5-10 mg 5-10 mg, Oral, EVERY 4 HOURS PRN, 1 dose, Starting on Mon10/15/18 at 1555, Until Mon10/15/18 at 1609, 5mg for pain 4-6, 10mg for pain >7/10, Routine Given 10/15/2018 4:09 PM EDT 10 mg oxyCODONE (ROXICODONE) immediate release tablet 5-10 mg 5-10 mg, Oral, EVERY 4 HOURS PRN, 1 dose, Starting on Mon10/15/18 at 2048, Until Mon10/15/18 at 2149, 5mg for pain 4-6, 10mg for pain >7/10, Routine Given 10/15/2018 9:49 PM EDT 10 mg oxyCODONE (ROXICODONE) immediate release tablet 5-10 mg 5-10 mg, Oral, EVERY 4 HOURS PRN, 1 dose, Starting on Mon10/16/18 at 0252, Until Mon10/16/18 at 0256, 5mg for pain 4-6, 10mg for pain >7/10, Routine Given 10/16/2018 2:56 AM EDT 10 mg pantoprazole (PROTONIX) tablet 40 mg 40 mg, Oral, DAILY, First dose on Mon10/16/18 at 0900, Until Discontinued, DO NOT CRUSH OR OPEN Given 10/17/2018 8:42 AM EDT 40 mg Given 10/16/2018 9:12 AM EDT 40 mg rifAMPin (RIFADIN) capsule 300 mg 300 mg, Oral, 2 TIMES DAILY, First dose on Mon10/15/18 at 2100, Until Discontinued, Routine, Indication for (Active or Suspected): Bone/Joint Given 10/17/2018 8:42 AM EDT 300 mg Given 10/16/2018 8:47 PM EDT 300 mg Given 10/16/2018 9:12 AM EDT 300 mg sodium chloride 0.9 % (flush) flush 5 mL 5 mL, Intravenous, 2 TIMES DAILY, First dose on Mon10/15/18 at 2100, Until Discontinued, Routine Given 10/16/2018 8:50 PM EDT 5 mLs Given 10/16/2018 9:13 AM EDT 5 mLs Given 10/15/2018 9:49 PM EDT 5 mLs tamsulosin (FLOMAX) ER capsule 0.4 mg 0.4 mg, Oral, DAILY, First dose on Mon10/15/18 at 1545, Until Discontinued, DO NOT CRUSH OR OPEN, Routine Given 10/17/2018 8:42 AM EDT 0.4 mg Given 10/16/2018 9:12 AM EDT 0.4 mg Given 10/15/2018 4:09 PM EDT 0.4 mg documented in this encounter Active and Recently Administered Medications Times are shown in EDT. Scheduled Medication Order 10/15/2018 10/16/2018 10/17/2018 acetaminophen (TYLENOL) tablet 1,000 mg 1,000 mg, Oral, EVERY 6 HOURS SCHEDULED, First dose (after last modification) on Mon10/16/18 at 0000, Until Discontinued, Administer for temperature greater than or equal to 38.2 degrees celsius. Maximum daily dose of acetaminophen from all sources not to exceed 4,000 mg., Routine 2338 (Given - Provider: Yaneli Gómez, RN) 0506 (Given - Provider: Yaneli Gómez RN)1104 (Given - Provider: Sarah Pappas RN)1634 ([facility] Hold - Provider: Admin Adt - Reason: Transfer to a Procedural area)1800 (Automatically Held - Provider: Admin Adt)190 ([facility] Unhold - Provider: Admin Adt) 0026 (Given - Provider: Alisson Rivers RN)0531 (Given - Provider: Alisson Rivers RN) amitriptyline (ELAVIL) tablet 25 mg 25 mg, Oral, NIGHTLY, First dose on Mon10/15/18 at 2100, Until Discontinued, Routine 2149 (Given - Provider: Yaneli Gómez RN) 1634 ([facility] Hold - Provider: Admin Adt - Reason: Transfer to a Procedural area)190 ([facility] Unhold - Provider: Admin Adt)204 (Given - Provider: Alisson Rivers RN) cephALEXin (KEFLEX) capsule 250 mg 250 mg, Oral, 3 TIMES DAILY, First dose on Mon10/16/18 at 0900, Until Discontinued, Routine, Indication for (Active or Suspected): Bone/Joint 0912 (Given - Provider: Sarah Pappas RN)1404 (Given - Provider: Sarah Pappas RN)1634 ([facility] Hold - Provider: Admin Adt - Reason: Transfer to a Procedural area)190 ([facility] Unhold - Provider: Admin Adt)2047 (Given - Provider: Alisson Rivers RN) 0841 (Given - Provider: Eligio Purcell RN) ciprofloxacin (CIPRO) 400 mg in dextrose 5% 200 mL (COMPLETED) 400 mg, Intravenous, [employer] TO O.R., 1 dose, On Mon10/16/18 at 1345, Administer over 60 Minutes, Indication for (Active or Suspected): Prophylaxis, Restricted Antibiotic: Please indicate the most appropriate choice: Pre-approved Indication (State the indication in Comments field) 1634 ([facility] Hold - Provider: Admin Adt - Reason: Transfer to a Procedural area)1648 (Given - Provider: Mario Simpson)190 ([facility] Unhold - Provider: Admin Adt) FLUoxetine (PROzac) capsule 20 mg 20 mg, Oral, DAILY, First dose on Mon10/16/18 at 0900, Until Discontinued, Routine 0912 (Given - Provider: Sarah Pappas RN)1634 ([facility] Hold - Provider: Admin Adt - Reason: Transfer to a Procedural area)1909 ([facility] Unhold - Provider: Admin Adt) 0842 (Given - Provider: Eligio Purcell RN) heparin (Porcine) subcutaneous injection 5,000 Units 5,000 Units, Subcutaneous, EVERY 8 HOURS SCHEDULED, First dose on Mon10/15/18 at 1545, Until Discontinued, Routine 1610 (Given - Provider: Sarah Pappas RN)2149 (Given - Provider: Yaneli Gómez RN) 0506 (Given - Provider: Yaneli Gómez RN)1404 (Given - Provider: Sarah Pappas RN)1634 ([facility] Hold - Provider: Admin Adt - Reason: Transfer to a Procedural area)1909 ([facility] Unhold - Provider: Admin Adt)2221 (Given - Provider: Alisson Rivers RN) 0532 (Given - Provider: Alisson Rivers RN) insulin lispro (HumaLOG) VIAL injection 1-4 Units 1-4 Units, Subcutaneous, EVERY 4 HOURS SCHEDULED, First dose on Mon10/15/18 at 1600, Until Discontinued, CORRECTION BOLUS Sensitive to insulin lean patient or total daily dose of all insulin needed to achieve glycemic control less than 30 units BG 140 - 160 Give 1 unit BG 161 - 200 Give 2 units BG 201 - 240 Give 3 units BG greater than 240, give 4 units and recheck BG in 2 hours. If less than 240 after two hours, give no insulin and resume prior schedule. If BG remains greater than 240, repeat 4 units (no more than three times) & call for new basal insulin orders. Do not hold if NPO, unless specifically told to do so., Routine 1600 (Not Given - Provider: Sarah Pappas RN - Reason: Order parameters not met)1999 (Not Given - Provider: Yaneli Gómez RN - Reason: Order parameters not met - Comment: BG 118)2338 (Given - Provider: Yaneli Gómez RN - Comment: BG 155) 0400 (Not Given - Provider: Yaneli Gómez RN - Reason: Order parameters not met - Comment: BG 104)0800 (Not Given - Provider: Sarah Pappas RN - Reason: Order parameters not met)1200 (Not Given - Provider: Sarah Pappas RN - Reason: Order parameters not met)1600 (Not Given - Provider: Sarah Pappas RN - Reason: Order parameters not met)1634 ([facility] Hold - Provider: Admin Adt - Reason: Transfer to a Procedural area)1908 ([facility] Unhold - Provider: Admin Adt)2046 (Given - Provider: Alisson Rivers RN) 0000 (Not Given - Provider: Alisson Rivers RN - Reason: Order parameters not met)0400 (Not Given - Provider: Alisson Rivers RN - Reason: Order parameters not met)0800 (Not Given - Provider: Eligio Purcell RN - Reason: See comment - Comment: Sugar not checked before breakfast and discharging shortly) montelukast (SINGULAIR) tablet 10 mg 10 mg, Oral, NIGHTLY, First dose on Mon10/15/18 at 2100, Until Discontinued, Routine 2148 (Given - Provider: Yaneli Gómez RN) 1633 ([facility] Hold - Provider: Admin Adt - Reason: Transfer to a Procedural area)1908 ([facility] Unhold - Provider: Admin Adt)2046 (Given - Provider: Alisson Rivers RN) pantoprazole (PROTONIX) tablet 40 mg 40 mg, Oral, DAILY, First dose on Mon10/16/18 at 0900, Until Discontinued, DO NOT CRUSH OR OPEN 0912 (Given - Provider: Sarah Pappas RN)163 ([facility] Hold - Provider: Admin Adt - Reason: Transfer to a Procedural area)1908 ([facility] Unhold - Provider: Admin Adt) 08 (Given - Provider: Eligio Purcell RN) rifAMPin (RIFADIN) capsule 300 mg 300 mg, Oral, 2 TIMES DAILY, First dose on Mon10/15/18 at 2100, Until Discontinued, Routine, Indication for (Active or Suspected): Bone/Joint 2148 (Given - Provider: Yaneli Gómez RN) 0912 (Given - Provider: Sarah Pappas RN)163 ([facility] Hold - Provider: Admin Adt - Reason: Transfer to a Procedural area)1908 ([facility] Unhold - Provider: Admin Adt)2046 (Given - Provider: Alisson Rivers RN) 0842 (Given - Provider: Eligio Purcell, RADHA) sodium chloride 0.9 % (flush) flush 5 mL 5 mL, Intravenous, 2 TIMES DAILY, First dose on Mon10/15/18 at 2100, Until Discontinued, Routine 2149 (Given - Provider: Yaneli Gómez, RN) 0913 (Given - Provider: Sarah Pappas RN)1634 ([facility] Hold - Provider: Admin Adt - Reason: Transfer to a Procedural area)1909 ([facility] Unhold - Provider: Admin Adt)2050 (Given - Provider: Alisson Rivers RN) 0900 (Due - Provider: Admin Adt) tamsulosin (FLOMAX) ER capsule 0.4 mg 0.4 mg, Oral, DAILY, First dose on Mon10/15/18 at 1545, Until Discontinued, DO NOT CRUSH OR OPEN, Routine 1609 (Given - Provider: Sarah Pappas RN) 0912 (Given - Provider: Sarah Pappas RN)1634 ([facility] Hold - Provider: Admin Adt - Reason: Transfer to a Procedural area)190 ([facility] Unhold - Provider: Admin Adt) 0842 (Given - Provider: Eligio Purcell, RADHA) Continuous Medication Order 10/15/2018 10/16/2018 10/17/2018 lactated ringers infusion (CANCELED) 1,000 mL, at 100 mL/hr, Intravenous, CONTINUOUS, Starting on Mon10/15/18 at 1545, Until Mon10/16/18 at 1933 1609 (New Bag - Provider: Sarah Pappas RN) 0206 (New Bag - Provider: Yaneli Gómez, RADHA)1634 ([facility] Hold - Provider: Admin Adt - Reason: Transfer to a Procedural area)190 ([facility] Unhold - Provider: Admin Adt) PRN Medication Order 10/15/2018 10/16/2018 10/17/2018 acetaminophen (TYLENOL) tablet 650 mg (CANCELED) 650 mg, Oral, EVERY 6 HOURS PRN, Starting on Mon10/15/18 at 1518, Until Mon10/15/18 at 1814, Pain, Fever, Administer for temperature greater than or equal to 38.2 degrees celsius. Maximum daily dose of acetaminophen from all sources not to exceed 4,000 mg., Routine 1609 (Given - Provider: Sarah Pappas RN) albuterol (PROVENTIL) nebulizer solution 2.5 mg 2.5 mg, Nebulization, EVERY 4 HOURS PRN, Starting on Mon10/15/18 at 1518, Until Mon10/17/18 at 1209, Wheezing, Routine 1858 (Given - Provider: Sarah Pappas RN) 0938 (Given - Provider: Sarah Pappas RN)163 ([facility] Hold - Provider: Admin Adt - Reason: Transfer to a Procedural area)1908 ([facility] Unhold - Provider: Admin Adt)2223 (Given - Provider: Alisson Rivers RN) dextrose 50% intravenous solution 25-50 mL(Linked Group 1) 25-50 mL (12.5-25 g), Intravenous, EVERY 1 HOUR PRN, Starting on Mon10/15/18 at 1518, Until Mon10/17/18 at 1209, Low blood sugar, For BG 50-70 mg/dL: Oral treatment preferred:?? If able to drink, give 120 mL Juice or Regular (not diet) soda OR If NPO, give 15 gram glucose 40% oral gel massaged into buccal mucosa OR if unconscious or uncooperative, give 12.5 gram (25 mL) Dextrose 50% IV OR, if no IV access, give 1 mg Glucagon IM. For BG less than 50 mg/dL: Oral treatment preferred:?? If able to drink, give 240 mL Juice or Regular (not diet) soda OR If NPO, give 30 gram glucose 40% oral gel massaged in buccal mucosa OR if unconscious or uncooperative, give 25 gram (50 mL) Dextrose 50% IV OR, if no IV access, give 1 mg Glucagon IM. Recheck BG in 30 minutes. May repeat juice, gel, dextrose or glucagon once per episode. To avoid extravasation, push Dextrose 50% SLOWLY (3 mL over 1 minute) in a patent, running IV, preferably a central line. For persistent hypoglycemia, consider longer-acting treatment for the duration of the active insulin., Routine 163 ([facility] Hold - Provider: Admin Adt - Reason: Transfer to a Procedural area)1908 ([facility] Unhold - Provider: Admin Adt) diazePAM (VALIUM) tablet 5 mg 5 mg, Oral, EVERY 12 HOURS PRN, Starting on Mon10/15/18 at 1518, Until Mon10/17/18 at 1209, Anxiety, Routine 1634 ([facility] Hold - Provider: Admin Adt - Reason: Transfer to a Procedural area)1908 ([facility] Unhold - Provider: Admin Adt) docusate sodium (COLACE) capsule 100 mg 100 mg, Oral, 2 TIMES DAILY PRN, Starting on Mon10/15/18 at 1518, Until Mon10/17/18 at 1209, Constipation, Routine 1634 ([facility] Hold - Provider: Admin Adt - Reason: Transfer to a Procedural area)1908 ([facility] Unhold - Provider: Admin Adt) glucagon (human recombinant) injection SolR 1 mg(Linked Group 1) 1 mg, Intramuscular, EVERY 1 HOUR PRN, Starting on Mon10/15/18 at 1518, Until Mon10/17/18 at 1209, Low blood sugar, For BG 50-70 mg/dL: Oral treatment preferred:?? If able to drink, give 120 mL Juice or Regular (not diet) soda OR If NPO, give 15 gram glucose 40% oral gel massaged into buccal mucosa OR if unconscious or uncooperative, give 12.5 gram (25 mL) Dextrose 50% IV OR, if no IV access, give 1 mg Glucagon IM. For BG less than 50 mg/dL: Oral treatment preferred:?? If able to drink, give 240 mL Juice or Regular (not diet) soda OR If NPO, give 30 gram glucose 40% oral gel massaged in buccal mucosa OR if unconscious or uncooperative, give 25 gram (50 mL) Dextrose 50% IV OR, if no IV access, give 1 mg Glucagon IM. Recheck BG in 30 minutes. May repeat juice, gel, dextrose or glucagon once per episode. To avoid extravasation, push Dextrose 50% SLOWLY (3 mL over 1 minute) in a patent, running IV, preferably a central line. For persistent hypoglycemia, consider longer-acting treatment for the duration of the active insulin., Routine 163 ([facility] Hold - Provider: Admin Adt - Reason: Transfer to a Procedural area)1908 ([facility] Unhold - Provider: Admin Adt) glucose (GLUTOSE) 40% oral gel(Linked Group 1) 15-30 g, Buccal, EVERY 30 MIN PRN, Starting on Mon10/15/18 at 1518, Until Mon10/17/18 at 1209, Low blood sugar, For BG 50-70 mg/dL: Oral treatment preferred:?? If able to drink, give 120 mL Juice or Regular (not diet) soda OR If NPO, give 15 gram glucose 40% oral gel massaged into buccal mucosa OR if unconscious or uncooperative, give 12.5 gram (25 mL) Dextrose 50% IV OR, if no IV access, give 1 mg Glucagon IM. For BG less than 50 mg/dL: Oral treatment preferred:?? If able to drink, give 240 mL Juice or Regular (not diet) soda OR If NPO, give 30 gram glucose 40% oral gel massaged in buccal mucosa OR if unconscious or uncooperative, give 25 gram (50 mL) Dextrose 50% IV OR, if no IV access, give 1 mg Glucagon IM. Recheck BG in 30 minutes. May repeat juice, gel, dextrose or glucagon once per episode. To avoid extravasation, push Dextrose 50% SLOWLY (3 mL over 1 minute) in a patent, running IV, preferably a central line. For persistent hypoglycemia, consider longer-acting treatment for the duration of the active insulin. 1 tube contains 15 grams of glucose (net weight of tube = 37.5 grams., Routine 163 ([facility] Hold - Provider: Admin Adt - Reason: Transfer to a Procedural area)1908 ([facility] Unhold - Provider: Admin Adt) HYDROmorphone (DILAUDID) injection 0.3 mg 0.3 mg, Intravenous, EVERY 2 HOURS PRN, Starting on Mon10/15/18 at 1813, Until Mon10/17/18 at 1209, Pain, for pain not controlled with PO pain medication, Routine 1901 (Given - Provider: Sarah Pappas RN) 0506 (Given - Provider: Yaneli Gómez RN)0912 (Given - Provider: Sarah Pappas RN)1115 (Given - Provider: Sarah Pappas RN)1603 (Given - Provider: Sarah Pappas RN)1634 ([facility] Hold - Provider: Admin Adt - Reason: Transfer to a Procedural area)1908 ([facility] Unhold - Provider: Admin Adt) iohexol (OMNIPAQUE) 300 mg/mL solution (CANCELED) ONCE PRN, Starting on Mon10/16/18 at 1658, Until Mon10/17/18 at 1209, Intra-Operative (Intra-Procedure), Routine 1658 (Given - Provider: Nena Edwards MD - Comment: Placed on sterile field for dilution with 0.9% Normal Saline for use with fluoroscopy) lidocaine (XYLOCAINE) 10 mg/mL (1 %) injection 3 mg 3 mg (0.3 mL), Subcutaneous, ONCE PRN, 1 dose, Starting on Mon10/15/18 at 1518, Until Mon10/17/18 at 1209, for discomfort with PIV insertion, Routine 1634 ([facility] Hold - Provider: Admin Adt - Reason: Transfer to a Procedural area)190 ([facility] Unhold - Provider: Admin Adt) ondansetron (ZOFRAN) injection 4 mg (CANCELED) 4 mg, Intravenous, EVERY 30 MIN PRN, Starting on Mon10/16/18 at 1731, Until Mon10/16/18 at 1857, Nausea, May repeat 4 mg once in 30 minutes. If multiple antiemetics ordered, use ondansetron first and if ineffective use prochlorperazine second and if ineffective use promethazine, PACU Recovery 180 (Given - Provider: Jeferson Galindo RN) ondansetron (ZOFRAN) injection 4-8 mg(Linked Group 2) 4-8 mg, Intravenous, EVERY 8 HOURS PRN, Starting on Mon10/15/18 at 1518, Until Mon10/17/18 at 1209, Nausea, Start with 4mg and if ineffective in 30 minutes, give an additional 4mg If multiple antiemetics are ordered, give ondansetron first. 1613 (Given - Provider: Sarah Pappas RN) 163 ([facility] Hold - Provider: Admin Adt - Reason: Transfer to a Procedural area)190 ([facility] Unhold - Provider: Admin Adt) ondansetron (ZOFRAN) tablet 4-8 mg(Linked Group 2) 4-8 mg, Oral, EVERY 8 HOURS PRN, Starting on Mon10/15/18 at 1518, Until Mon10/17/18 at 1209, Nausea, Vomiting, If multiple antiemetics are ordered, use ondansetron first. PO Preferred. If patient unable to take PO, may give IV if ordered. Start with 4mg and if ineffective in 45 minutes, give an additional 4mg. If unable to take PO, may give IV., Routine 1613 (See Alternative - Provider: Sarah Pappas, RADHA) 1634 ([facility] Hold - Provider: Admin Adt - Reason: Transfer to a Procedural area)190 ([facility] Unhold - Provider: Admin Adt) oxyCODONE (ROXICODONE) immediate release tablet 5-10 mg (COMPLETED) 5-10 mg, Oral, EVERY 4 HOURS PRN, 1 dose, Starting on Mon10/15/18 at 1555, Until Mon10/15/18 at 1609, 5mg for pain 4-6, 10mg for pain >7/10, Routine 160 (Given - Provider: Sarah Pappas RN) oxyCODONE (ROXICODONE) immediate release tablet 5-10 mg (COMPLETED) 5-10 mg, Oral, EVERY 4 HOURS PRN, 1 dose, Starting on Mon10/15/18 at 2048, Until Mon10/15/18 at 2149, 5mg for pain 4-6, 10mg for pain >7/10, Routine 214 (Given - Provider: Yaneli Gómez, RADHA) oxyCODONE (ROXICODONE) immediate release tablet 5-10 mg (COMPLETED) 5-10 mg, Oral, EVERY 4 HOURS PRN, 1 dose, Starting on Mon10/16/18 at 0252, Until Mon10/16/18 at 0256, 5mg for pain 4-6, 10mg for pain >7/10, Routine 0256 (Given - Provider: Yaneli Gómez RN) sodium chloride 0.9 % (flush) flush 5-20 mL 5-20 mL, Intravenous, EVERY 1 MIN PRN, Starting on Mon10/15/18 at 1518, Until Mon10/17/18 at 1209, flush, Flush pertains to all indwelling lines. Flush per protocol found in the job aid using the link provided on this medication record., Routine 163 ([facility] Hold - Provider: Admin Adt - Reason: Transfer to a Procedural area)190 ([facility] Unhold - Provider: Admin Adt) Linked Groups Order Group 1: glucose (GLUTOSE) 40% oral gelJump to med 15-30 g, Buccal, EVERY 30 MIN PRN, Starting on Mon10/15/18 at 1518, Until Mon10/17/18 at 1209, Low blood sugar, For BG 50-70 mg/dL: Oral treatment preferred:?? If able to drink, give 120 mL Juice or Regular (not diet) soda OR If NPO, give 15 gram glucose 40% oral gel massaged into buccal mucosa OR if unconscious or uncooperative, give 12.5 gram (25 mL) Dextrose 50% IV OR, if no IV access, give 1 mg Glucagon IM. For BG less than 50 mg/dL: Oral treatment preferred:?? If able to drink, give 240 mL Juice or Regular (not diet) soda OR If NPO, give 30 gram glucose 40% oral gel massaged in buccal mucosa OR if unconscious or uncooperative, give 25 gram (50 mL) Dextrose 50% IV OR, if no IV access, give 1 mg Glucagon IM. Recheck BG in 30 minutes. May repeat juice, gel, dextrose or glucagon once per episode. To avoid extravasation, push Dextrose 50% SLOWLY (3 mL over 1 minute) in a patent, running IV, preferably a central line. For persistent hypoglycemia, consider longer- acting treatment for the duration of the active insulin. 1 tube contains 15 grams of glucose (net weight of tube = 37.5 grams., Routine Or dextrose 50% intravenous solution 25-50 mLJump to med 25-50 mL (12.5-25 g), Intravenous, EVERY 1 HOUR PRN, Starting on Mon10/15/18 at 1518, Until Mon10/17/18 at 1209, Low blood sugar, For BG 50-70 mg/dL: Oral treatment preferred:?? If able to drink, give 120 mL Juice or Regular (not diet) soda OR If NPO, give 15 gram glucose 40% oral gel massaged into buccal mucosa OR if unconscious or uncooperative, give 12.5 gram (25 mL) Dextrose 50% IV OR, if no IV access, give 1 mg Glucagon IM. For BG less than 50 mg/dL: Oral treatment preferred:?? If able to drink, give 240 mL Juice or Regular (not diet) soda OR If NPO, give 30 gram glucose 40% oral gel massaged in buccal mucosa OR if unconscious or uncooperative, give 25 gram (50 mL) Dextrose 50% IV OR, if no IV access, give 1 mg Glucagon IM. Recheck BG in 30 minutes. May repeat juice, gel, dextrose or glucagon once per episode. To avoid extravasation, push Dextrose 50% SLOWLY (3 mL over 1 minute) in a patent, running IV, preferably a central line. For persistent hypoglycemia, consider longer-acting treatment for the duration of the active insulin., Routine Or glucagon (human recombinant) injection SolR 1 mgJump to med 1 mg, Intramuscular, EVERY 1 HOUR PRN, Starting on Mon10/15/18 at 1518, Until Mon10/17/18 at 1209, Low blood sugar, For BG 50-70 mg/dL: Oral treatment preferred:?? If able to drink, give 120 mL Juice or Regular (not diet) soda OR If NPO, give 15 gram glucose 40% oral gel massaged into buccal mucosa OR if unconscious or uncooperative, give 12.5 gram (25 mL) Dextrose 50% IV OR, if no IV access, give 1 mg Glucagon IM. For BG less than 50 mg/dL: Oral treatment preferred:?? If able to drink, give 240 mL Juice or Regular (not diet) soda OR If NPO, give 30 gram glucose 40% oral gel massaged in buccal mucosa OR if unconscious or uncooperative, give 25 gram (50 mL) Dextrose 50% IV OR, if no IV access, give 1 mg Glucagon IM. Recheck BG in 30 minutes. May repeat juice, gel, dextrose or glucagon once per episode. To avoid extravasation, push Dextrose 50% SLOWLY (3 mL over 1 minute) in a patent, running IV, preferably a central line. For persistent hypoglycemia, consider longer-acting treatment for the duration of the active insulin., Routine Group 2: ondansetron (ZOFRAN) tablet 4-8 mgJump to med 4-8 mg, Oral, EVERY 8 HOURS PRN, Starting on Mon10/15/18 at 1518, Until Mon10/17/18 at 1209, Nausea, Vomiting, If multiple antiemetics are ordered, use ondansetron first. PO Preferred. If patient unable to take PO, may give IV if ordered. Start with 4mg and if ineffective in 45 minutes, give an additional 4mg. If unable to take PO, may give IV., Routine Or ondansetron (ZOFRAN) injection 4-8 mgJump to med 4-8 mg, Intravenous, EVERY 8 HOURS PRN, Starting on Mon10/15/18 at 1518, Until Mon10/17/18 at 1209, Nausea, Start with 4mg and if ineffective in 30 minutes, give an additional 4mg If multiple antiemetics are ordered, give ondansetron first. documented in this encounter Care Teams Field Service Consultant Relationship Specialty Start Date End Date Gissell Davis APRN [id number] [place] [address] PCP - General Family Medicine 08/21/18 11/12/21 documented as of this encounter
--- OUTSIDE RECORDS SUMMARY | 2023-10-05 02:25 | XMS_ITS | Encounter Summary ---
Author Organization [facility] Address [facility] [place] [address] Care Team Providers Care Braille Typist Name Role Phone Susan Gissell Murphy APRN Primary Care Provider Encounter Details Date Type Department Care Team (Late st Contact Info) Description 01/24/2019 9:00 AM EST - 01/24/2019 10:45 AM EST Surgery [facility] [place] [id number] Stacey Leblanc MD [facility] [place] [address] CYSTO, STENT PLACEMENT (WRVU 2.82) Social History Tobacco Use Types Packs/Day Years [...] Sign Reading Time Taken Comments Blood Pressure 133/77 01/24/2019 10:27 AM EST Pulse 84 01/24/2019 10:34 AM EST Temperature 36.1 ??C (97 ??F) 01/24/2019 10:14 AM EST Respiratory Rate 20 01/24/2019 10:34 AM EST Oxygen Saturation 98% 01/24/2019 10:34 AM EST Inhaled Oxygen Concentration - - Weight 84.8 kg (187 lb) 01/24/2019 7:45 AM EST Height 160 cm (5' 3) 01/24/2019 7:45 AM EST Body Mass Index 33.13 01/24/2019 7:45 AM EST documented in this encounter Discharge Instructions * Discharge Instructions* Noni Garcia RN - 01/24/2019 8:03 AM EST General Anesthesia Discharge Instructions Go home and rest. You may be sleepy for several hours. Take it easy as sudden position changes may cause nausea and/or dizziness. Use caution on stairs. Do not smoke if you are alone. Follow a light to regular diet as tolerated today. If nausea occurs, start with clear liquids, and progress slowly to a regular diet. Do not drive, operate machinery, drink alcoholic beverages or make any legal decisions after havinggeneral anesthesia. The medications given change your reaction time and alter your judgement. IV site -- slight redness is normal, you can use warm compresses. If tenderness and redness increases or foul drainage occurs, please contact your M.D. Patients who have had endotracheal tubes/LMA (tubes used by the anesthesia staff to ensure a safe airway during your operation) may have a sore throat. This is normal and cold liquids or soothing lozenges will help ease this discomfort. Narcotic pain medications can cause constipation, please ask the surgeons office what they recommend for prevention of this. Some non-pharmaceutical means of constipation prevention include increasing intake of fluids, eating more fruits and vegetables as well as fruit juices. If you are uncomfortable and/or unable to urinate within 8 hours of discharge and it is before 5 pm, call your physician. If it is after 5pm go to the closest emergency room or call the hospital dry room operator at [phone] and ask for physician stone polisher machine covering for your physician. Questions or problems after 5pm or on a weekend: Call the [facility] dry room operator at and ask for the physician stone polisher machine covering for your doctor. * Patient Instructions* Garett Farris MD - 01/24/2019 10:10 AM EST Instructions following Cystoscopic Surgery Activity: As tolerated by your comfort level. Urination: You will likely have a small amount of blood in your urine for the next several days, upto 10-14 days. This is normal; however, if you are passing large amounts of blood clots or your catheter stops draining please call our office at [phone] before 5PM or [phone] after hours. Call Doctor for: Please call if you have copious blood in your urine, severe back or side pain, pain not controlled by pain medications, persistent nausea and vomiting, or for any fevers greater [id number] F. The number for questions is [phone] before 5 PM weekdays and [phone] after 5 PM and weekends. Pain Medication: No driving for 8 hours after any dose of opioid pain medication if one was prescribed for you. You may use ibuprofen (motrin, advil) in addition to this medication if your pain is not totally controlled by the opioid. Follow-up: We will schedule you for a ureteral stent removal with Dr. Leblanc in 2 weeks. documented in this encounter Medications at Time of Discharge Medication Sig Dispensed Refills Start Date End Date cholecalciferol, Vitamin D3, 50 mcg (2,000 unit) Capsule Daily. 05/19/2015 Lactase 9,000 unit Tablet Daily. 09/05/2016 nystatin (MYCOSTATIN) Cream nystatin 100,000 unit/gram topical cream APPLY TO THE AFFECTED AREA(S) BY TOPICAL ROUTE 2 TIMES PER DAY 05/02/2017 phenazopyridine (PYRIDIUM) 200 mg Tablet Take 1 [...] daily 03/18/2010 documented as of this encounter Progress Notes * Anyi Wilkinson RN - 01/24/2019 10:59 AM EST Discharge instructions and medications reviewed with patient and escortRishi. They verbalized understanding. All questions answered and written copy sent home with patient. Patient/escort encouraged to call with questions or concerns. Patient ambulated to car for discharge accompanied by [facility] staff member. * Africa Nieto RN - 01/24/2019 10:35 AM EST Report to Mady Wilkinson for relief. documented in this encounter H&P Notes * Stacey Leblanc MD - 01/24/2019 8:31 AM EST The patient's history and physical exam have been reviewed and completed. There has been no interval change from that of the pre-operative history and physical exam done within the last 30 days. Source Note - Stacey Leblanc MD - 01/23/2019 2:40 PM EST Urology PreOp H&P ?? Barbara Chapman 48 y.o. female who presents for second stage URS w/ LL for a right renal pelvis stone. ?? She last underwent right URS w/LL on 12/28/2018. This procedure was aborted after 2.5 hours due to the prolonged anesthesia time and poor visibility. 8Fr x 26cm JJ stent placed on the right side. ?? No changes to medications, no fevers, chills, headaches, chest pain, new cough, nausea, emesis, constipation, diarrhea, difficulty urinating, one sided numbness or tingling sensation. Denies recent hospitalization. ?? Lab Results Component Value Date ?? URINECULTURE No growth (Less than 100 cfu/ml). 12/28/2018 ? Past??Medical??History History reviewed. No pertinent past medical history. Past??Surgical??History Past Surgical History: Procedure Laterality Date ??? PRO CYSTO/URETERO/PYELOSCOPY W/LITHOTRIPSY Left 11/16/2018 ?? CYSTOURETEROSCOPY, LITHOTRIPSY (WRVU 7.5) performed by Nena Ace MD at [facility] MAIN OR ??? PRO CYSTO/URETERO/PYELOSCOPY W/LITHOTRIPSY Bilateral 12/28/2018 ?? CYSTOURETEROSCOPY, LITHOTRIPSY (WRVU 7.5) performed by Nena Ace MD at [facility] MA[facility] OR ??? PRO CYSTO/URETERO/PYELOSCOPY, CALCULUS TX Bilateral 11/16/2018 ?? CYSTOURETHROSCOPY WITH UTETEROSCOPY, W\REMOVAL, MANIPULATION OF CALCULUS (WRVU 6.75) performed by Nena Ace MD at [facility] OR ??? PRO CYSTOSCOPY, INSERT URETERAL STENT Bilateral 10/16/2018 ?? CYSTO, STENT PLACEMENT (WRVU 2.82) performed by Agustin Crespo MD at [facility] OR ??? PRO CYSTOSCOPY, INSERT URETERAL STENT Bilateral 11/16/2018 ?? CYSTO, STENT PLACEMENT (WRVU 2.82) performed by Nena Ace MD at [facility] OR ??? PRO CYSTOURETHROSCOPY, URETER CATHETER Bilateral 10/16/2018 ?? CYSTO, RETROGRADE, URETEROPYELOGRAPHY (WRVU 2.37) performed by Agustin Crespo MD at [facility] OR ? No current facility-administered medications on file prior to encounter. ?? Current Outpatient Medications on File Prior to Encounter Medication Sig Dispense Refill ??? phenazopyridine (PYRIDIUM) 200 mg Tablet Take 1 tablet by mouth 3 times daily as needed for Pain. 9 tablet 0 ??? tamsulosin (FLOMAX) 0.4 mg Capsule Take 1 capsule by mouth daily. 60 tablet 2 ??? cephALEXin (KEFLEX) 250 mg Capsule Take 1 capsule by mouth 3 times daily. ? acetaminophen (TYLENOL) 500 mg Tablet Take 2 tablets by mouth every 6 hours as needed for Pain.Do not exceed 4000 mg per 24 hours. 30 tablet 1 ??? FLUoxetine (PROZAC) 40 mg Capsule Daily. ? rifAMPin (RIFADIN) 300 mg Capsule Every 12 hours. ? gabapentin (NEURONTIN) 300 mg Capsule Every 8 hours. ? metFORMIN (GLUCOPHAGE) 1,000 mg Tablet Every 12 hours. ? Magnesium Oxide 500 mg Tablet TAKE ONE TABLET BY MOUTH EVERY DAY ?? 3 ??? albuterol (PROVENTIL) 2.5 mg /3 mL (0.083 %) nebulizer solution Take 2.5 mg by nebulization nightly. ? traMADol (ULTRAM) 50 mg tablet Take 50 mg by mouth daily. 1-2 tablets daily ? HYDROmorphone (DILAUDID) 2 mg tablet Take by mouth daily. Takes 1-2 tablets daily ? OXYcodone-acetaminophen (PERCOCET) 5-325 mg per tablet Take 1 tablet by mouth daily as needed. ? montelukast (SINGULAIR) 10 mg tablet ? cetirizine (ZYRTEC) 10 mg tablet ? LEVALBUTEROL HCL (XOPENEX INHL) ? FLUTICASONE/SALMETEROL (ADVAIR HFA INHL) ? sucralfate (CARAFATE) 1 gram tablet ? PROPRANOLOL HCL (PROPRANOLOL ORAL) (Patient not taking: No sig reported) ? FLUoxetine (PROZAC) 20 mg capsule ? amitriptyline (ELAVIL) 25 mg tablet ? trimethobenzamide (TIGAN) 300 mg capsule 300 MG = 1 Capsule(s), PO, Three times daily ? Allergies Allergen Reactions ??? Latex ? Codeine Phosphate ? Erythromycin Base ? Gloves, Latex ? Latex Dams ? Vitals There were no vitals filed for this visit. ?? Exam: General: Alert and oriented x4 Heart: RRR Lungs: No audible wheezing Abdomen: Soft, non-tender/distended Extremities: Warm, no edema ?? No results found for this or any previous visit (from the past 24 hour(s)). ?? Assessment/Plan Proceed with scheduled procedure Procedure(s): CYSTO, STENT PLACEMENT (WRVU 2.82) CYSTOURETEROSCOPY, LITHOTRIPSY (WRVU 7.5) CYSTOURETHROSCOPY WITH UTETEROSCOPY, W\REMOVAL, MANIPULATION OF CALCULUS (WRVU 6.75) MODIFIER HOLMIUM LASER did the note which I reviewed. I saw the patient and performed the exam that is noted above, I marked her Rt side and did her consent. I agree with the above assessment and plan. Evangelina Leblanc MD * Stacey Leblanc MD - 01/23/2019 2:40 PM EST Urology PreOp H&P ?? Barbara Chapman 48 y.o. female who presents for second stage URS w/ LL for a right renal pelvis stone. ?? She last underwent right URS w/LL on 12/28/2018. This procedure was aborted after 2.5 hours due to the prolonged anesthesia time and poor visibility. 8Fr x 26cm JJ stent placed on the right side. ?? No changes to medications, no fevers, chills, headaches, chest pain, new cough, nausea, emesis, constipation, diarrhea, difficulty urinating, one sided numbness or tingling sensation. Denies recent hospitalization. ?? Lab Results Component Value Date ?? URINECULTURE No growth (Less than 100 cfu/ml). 12/28/2018 ? Past??Medical??History History reviewed. No pertinent past medical history. Past??Surgical??History Past Surgical History: Procedure Laterality Date ??? PRO CYSTO/URETERO/PYELOSCOPY W/LITHOTRIPSY Left 11/16/2018 ?? CYSTOURETEROSCOPY, LITHOTRIPSY (WRVU 7.5) performed by Nena Ace MD at [facility] OR ??? PRO CYSTO/URETERO/PYELOSCOPY W/LITHOTRIPSY Bilateral 12/28/2018 ?? CYSTOURETEROSCOPY, LITHOTRIPSY (WRVU 7.5) performed by Nena Ace MD at [facility] OR ??? PRO CYSTO/URETERO/PYELOSCOPY, CALCULUS TX Bilateral 11/16/2018 ?? CYSTOURETHROSCOPY WITH UTETEROSCOPY, W\REMOVAL, MANIPULATION OF CALCULUS (WRVU 6.75) performed by Nena Ace MD at [facility] OR ??? PRO CYSTOSCOPY, INSERT URETERAL STENT Bilateral 10/16/2018 ?? CYSTO, STENT PLACEMENT (WRVU 2.82) performed by Agustin Crespo MD at [facility] OR ??? PRO CYSTOSCOPY, INSERT URETERAL STENT Bilateral 11/16/2018 ?? CYSTO, STENT PLACEMENT (WRVU 2.82) performed by Nena Ace MD at [facility] OR ??? PRO CYSTOURETHROSCOPY, URETER CATHETER Bilateral 10/16/2018 ?? CYSTO, RETROGRADE, URETEROPYELOGRAPHY (WRVU 2.37) performed by Agustin Crespo MD at [facility] MA[facility] OR ? No current facility-administered medications on file prior to encounter. ?? Current Outpatient Medications on File Prior to Encounter Medication Sig Dispense Refill ??? phenazopyridine (PYRIDIUM) 200 mg Tablet Take 1 tablet by mouth 3 times daily as needed for Pain. 9 tablet 0 ??? tamsulosin (FLOMAX) 0.4 mg Capsule Take 1 capsule by mouth daily. 60 tablet 2 ??? cephALEXin (KEFLEX) 250 mg Capsule Take 1 capsule by mouth 3 times daily. ? acetaminophen (TYLENOL) 500 mg Tablet Take 2 tablets by mouth every 6 hours as needed for Pain.Do not exceed 4000 mg per 24 hours. 30 tablet 1 ??? FLUoxetine (PROZAC) 40 mg Capsule Daily. ? rifAMPin (RIFADIN) 300 mg Capsule Every 12 hours. ? gabapentin (NEURONTIN) 300 mg Capsule Every 8 hours. ? metFORMIN (GLUCOPHAGE) 1,000 mg Tablet Every 12 hours. ? Magnesium Oxide 500 mg Tablet TAKE ONE TABLET BY MOUTH EVERY DAY ?? 3 ??? albuterol (PROVENTIL) 2.5 mg /3 mL (0.083 %) nebulizer solution Take 2.5 mg by nebulization nightly. ? traMADol (ULTRAM) 50 mg tablet Take 50 mg by mouth daily. 1-2 tablets daily ? HYDROmorphone (DILAUDID) 2 mg tablet Take by mouth daily. Takes 1-2 tablets daily ? OXYcodone-acetaminophen (PERCOCET) 5-325 mg per tablet Take 1 tablet by mouth daily as needed. ? montelukast (SINGULAIR) 10 mg tablet ? cetirizine (ZYRTEC) 10 mg tablet ? LEVALBUTEROL HCL (XOPENEX INHL) ? FLUTICASONE/SALMETEROL (ADVAIR HFA INHL) ? sucralfate (CARAFATE) 1 gram tablet ? PROPRANOLOL HCL (PROPRANOLOL ORAL) (Patient not taking: No sig reported) ? FLUoxetine (PROZAC) 20 mg capsule ? amitriptyline (ELAVIL) 25 mg tablet ? trimethobenzamide (TIGAN) 300 mg capsule 300 MG = 1 Capsule(s), PO, Three times daily ? Allergies Allergen Reactions ??? Latex ? Codeine Phosphate ? Erythromycin Base ? Gloves, Latex ? Latex Dams ? Vitals There were no vitals filed for this visit. ?? Exam: General: Alert and oriented x4 Heart: RRR Lungs: No audible wheezing Abdomen: Soft, non-tender/distended Extremities: Warm, no edema ?? No results found for this or any previous visit (from the past 24 hour(s)). ?? Assessment/Plan Proceed with scheduled procedure Procedure(s): CYSTO, STENT PLACEMENT (WRVU 2.82) CYSTOURETEROSCOPY, LITHOTRIPSY (WRVU 7.5) CYSTOURETHROSCOPY WITH UTETEROSCOPY, W\REMOVAL, MANIPULATION OF CALCULUS (WRVU 6.75) MODIFIER HOLMIUM LASER did the note which I reviewed. I saw the patient and performed the exam that is noted above, I marked her Rt side and did her consent. I agree with the above assessment and plan. Evangelina Leblanc MD documented in this encounter Miscellaneous Notes * Op Note - Stacey Leblanc MD - 01/24/2019 10:13 AM EST [facility] [place] Patient Name: Barbara Chapman : [id number] MR#: [id number] Case Date: 01/24/2019 Surgeon: Surgeon(s) and Role: * Stacey Leblanc MD - Primary * Garett Farris MD - Resident Preoperative diagnosis: Rt renal stones Postoperative diagnosis: Rt renal stones Procedure(s) (LRB): CYSTO, STENT PLACEMENT (WRVU 2.82) (N/A) CYSTOURETEROSCOPY, LITHOTRIPSY (WRVU 7.5) (N/A) CYSTOURETHROSCOPY WITH UTETEROSCOPY, W\REMOVAL, MANIPULATION OF CALCULUS (WRVU 6.75) (N/A) MODIFIER HOLMIUM LASER (N/A) CYSTO, RETROGRADE, URETEROPYELOGRAPHY (WRVU 2.37) (Right) Findings: Small stone fragments throughout the right sided calyxes Anesthesia: General Estimated Blood Loss: * No values recorded between 01/24/2019 8:52 AM and 01/24/2019 10:04 AM * Specimens removed during surgery: None Drains: Right sided ureteral stent Surgical Closure: Endoscopic surgery Disposition: awakened from anesthesia, extubated and taken to the recovery room in a stable condition, having suffered no apparent untoward event. Condition: doing well without problems (Please see the Surgical Encounter Summary for any Implant and Specimen details pertinent to this patient.) HPI/Surgical Indications: Barbara Chapman initially presented to urology with bilateral stone burden and bilateral obstructing renal stones. She has had multiple URS since her bilateral stent placement. Her last URS was ended before all stones could be cleared due to poor visualization and OR time.She presents for the next stage of her staged URS. Procedure Description: The patient was identified in the preoperative holding area. Consent was verified and the side of the procedure was marked. The patient was taken to the operating room and placed supine on the operating table. General anesthesia was induced. The patient was then moved to the dorsal lithotomy position and prepped and draped in the usual sterile fashion. A timeout was performed involving all members of the OR team confirming the patient's identity and planned procedure. Preoperative antibiotics were administered. The 22 wolof rigid cystoscope was inserted to the bladder. The existing ureteral stent was visualized. A guide wire was passed into the ureteral orifice along side the stent without difficulty and visualized on fluoroscopy to be within the renal pelvis. The stent was then grasped with a stent grasper and removed. The cystoscope was removed. The semirigid ureteroscope was inserted. Rigid ureteroscopy was performed and no fragments were noted. An additional wire was then placed into the ureter and also visualized on fluoroscopy to be within the renal pelvis. A ureteral access sheath was placedover one of the existing guide wires and under fluoroscopy seen to be in the proximal ureter. The fl exible ureteroscope was then inserted. A retrograde pyelogram was then performed to map the renal collecting system. The collecting systemwas inspected in its entirety and throughout the calyxes multiple stones were found. The 365 micronlaser fiber was then inserted through the flexible scope, and with settings of 6 joules and 6 hertz, the stone was fragmented into very small pieces. A subsequent retrograde pyelogram was then performed to map the renal collecting system which was inspected in its entirety and found to have only dust left behind The flexible ureteroscope was then removed, with the ureteral access sheath removed at the same time to allow for full inspection of the ureter. The ureteroscope was removed. The cystoscope was then loaded onto the guidewire and a pollack catheter used to measure the length of the ureter which was 26 cm. The pollack catheter was removed and a 6 wolof by 26 centimeter double J stent was passed over the wire. The proximal coil was visualized on fluoroscopy to be within the renal pelvis and the distal coil was seen with direct visualization in the bladder. The bladder was emptied and the scope removed. The patient tolerated the procedure well. He was awakened from anesthesia and brought to the recovery area in stable condition. Infection Bundle used? No * Brief Op Note - Stacey Leblanc MD - 01/24/2019 10:08 AM EST Brief Operative Note Patient Name: Barbara Chapman : [id number] MR#: [id number] Case Date: 01/24/2019 Surgeon: Surgeon(s) and Role: * Stacey Leblanc MD - Primary * Garett Farris MD - Resident Preoperative diagnosis: Rt renal stones Postoperative diagnosis: RT renal stones Procedure(s) (LRB): CYSTO, STENT PLACEMENT (WRVU 2.82) (N/A) CYSTOURETEROSCOPY, LITHOTRIPSY (WRVU 7.5) (N/A) CYSTOURETHROSCOPY WITH UTETEROSCOPY, W\REMOVAL, MANIPULATION OF CALCULUS (WRVU 6.75) (N/A) MODIFIER HOLMIUM LASER (N/A) CYSTO, RETROGRADE, URETEROPYELOGRAPHY (WRVU 2.37) (Right) Anesthesia: General Findings: Small stone fragments throughout the right renal calyces Complications: None Estimated Blood Loss: * No values recorded between 01/24/2019 8:52 AM and 01/24/2019 10:04 AM * Specimens removed during surgery: Stone fragments Fluids: Intraprocedure Crystalloid Total None PRBCs: none (See Anesthesia Record/Report for Other Blood Products) Urine Output: (no urine output recorded) Drains: Right sided Ureteral stent - Disposition: awakened from anesthesia, extubated and taken to the recovery room in a stable condition, having suffered no apparent untoward event. Condition: doing well without problems (Please see the Surgical Encounter Summary for any Implant and Specimen details pertinent to this patient.) Infection Bundle used? No documented in this encounter Plan of Treatment Not on file documented as of this encounter Procedures Procedure Name Priority Date/Time Associated Diagnosis Comments XR FLUORO NO RAD <1HR - OR USE Routine 01/24/2019 10:18 AM EST [facility] KIDNEY STONE ANALYSIS Routine 01/24/2019 9:57 AM EST Cystourethroscopy, Ureter Catheter ([id number]) Yes 01/24/2019 8:34 AM EST Ureteral obstruction MODIFIER HOLMIUM LASER Yes 01/24/2019 8:34 AM EST Ureteral obstruction Cysto/Uretero/Pyelo scopy, Calculus Tx ([id number]) Yes 01/24/2019 8:34 AM EST Ureteral obstruction Cysto/Uretero/Pyelo scopy W/Lithotripsy ([id number]) Yes 01/24/2019 8:34 AM EST Ureteral obstruction Cystoscopy, Insert Ureteral Stent ([id number]) Yes 01/24/2019 8:34 AM EST Ureteral obstruction documented in this encounter Results * XR Fluoro No Rad <1Hr - OR Use (01/24/2019 10:18 AM EST) Narrative [facility] - 01/24/2019 10:19 AM EST This exam is auto-finalizing. No interpretation was done. Stacey Leblanc MD IMG FLUORO ALISTAIRJocelyne WHITE Performing Organization Address [facility] Co de Phone Number [facility] [place] * Kidney Stone Analysis (01/24/2019 9:57 AM EST) Kidney Stone Analysis (MAY) Test ?Result ? Flag ??Unit ??RefValue Kidney Stone Analysis ??Source: ? Right Ureter ??Interpretation ?SEE COMMENTS ?80% Calcium oxalate monohydrate ?20% Uric acid ?Test Performed by: ?[facility] ?[address] [place] [address] ?Molding Engineer: Mario River M.D. Ph.D.; CLIA# [id number] [facility] Calculus specimen (specimen) 01/24/2019 9:57 AM EST 01/24/2019 1:41 PM EST Narrative Resulting Agency Comment Spec In Lab Stacey Leblanc MD LAB SEND OUT OR DERABLES Performing Organization Address [facility]/ZIP Co de Phone [place] [address] documented in this encounter Visit Diagnoses Not on filedocumented in this encounter Administered Medications Inactive Administered Medications - up to 3 most recent administrations Medication Order MAR Action Action Date Dose Rate Site iohexol (OMNIPAQUE) 300 mg/mL solution ONCE PRN, Starting on Christen 01/24/19 at 0915, Until Christen 01/24/19 at 1302, Intra-Operative (Intra-Procedure), Routine Given 01/24/2019 9:15 AM EST 300 mg 20-Other (document in comment section) lactated ringers infusion 1,000 mL, at 100 mL/hr, Intravenous, CONTINUOUS, Starting on Christen 01/24/19 at 0800, Until Christen 01/24/19 at 1101, Day of Surgery (Day of Procedure) New Bag 01/24/2019 10:09 AM EST New Bag 01/24/2019 8:05 AM EST 1,000 mLs 100 mL/hr documented in this encounter Active and Recently Administered Medications Times are shown in EST. Scheduled Medication Order 01/22/2019 01/23/2019 01/24/2019 cefTRIAXone (ROCEPHIN) 2 g vial attach to sodium chloride 0.9% 50 mL Mini-Bag Plus (COMPLETED) 2 g, Intravenous, CUTTING AND PRINTING MACHINE OPERATOR TO O.R., 1 dose, On Christen 01/24/19 at 0800, Administer over 30 Minutes, Day of Surgery (Day of Procedure), Indication for (Active or Suspected): Prophylaxis 0835 (New Bag - Prov ider: Lu Lopez CRNA) Continuous Medication Order 01/22/2019 01/23/2019 01/24/2019 lactated ringers infusion (CANCELED) 1,000 mL, at 100 mL/hr, Intravenous, CONTINUOUS, Starting on Christen 01/24/19 at 0800, Until Christen 01/24/19 at 1101, Day of Surgery (Day of Procedure) 0805 (New Bag - Prov ider: Noni Garcia RN)1009 (New Bag - Provider: Lu Lopez CRNA) PRN Medication Order 01/22/2019 01/23/2019 01/24/2019 iohexol (OMNIPAQUE) 300 mg/mL solution (CANCELED) ONCE PRN, Starting on Christen 01/24/19 at 0915, Until Christen 01/24/19 at 1302, Intra-Operative (Intra-Procedure), Routine 0915 (Given - Provid er: Stacey Leblanc MD - Comment: injected via cysto) documented in this encounter Care Teams Braille Typist Relationship Specialty Start Date End Date Gissell Davis APRN [address] [place] [address] PCP - General Family Medicine 08/21/18 11/12/21 documented as of this encounter
--- OUTSIDE RECORDS SUMMARY | 2023-10-05 02:25 | XMS_ITS | Encounter Summary ---
Author Organization [facility] [place] [address] Care Team Providers Care [employer] Design Engineer Name Role Phone Susan Gissell Katherine YOU Primary Care Provider [phone] Encounter Details Date Type Department Care Team (Late st Contact Info) Description 10/24/2018 [place] [address] Nena Ace MD [facility] [place] [address] Other symptoms and signs involving the genitourinary system Social History Tobacco Use Types Packs/Day Years [...] on file documented as of this encounter Results * Urine culture Clean Catch Urine (11/16/2018 7:43 AM EDT) Urine Culture No growth (Less than 1,000 cfu/ml). [facility] Urine specimen obtained by clean catch procedure (specimen) 11/16/2018 7:43 AM EDT 11/16/2018 8:33 AM EDT Narrative Resulting Agency Comment Spec In Lab Nena Ace MD MICROBIOLOGY - [place] [address] documented in this encounter Visit Diagnoses Diagnosis Other symptoms and signs involving the genitourinary system documented in this encounter Care Teams [employer] Design Engineer Relationship Specialty Start Date End Date Gissell Davis APRN [address] [place] [address] PCP - General Family Medicine 08/21/18 11/12/21 documented as of this encounter
--- OUTSIDE RECORDS SUMMARY | 2023-10-05 02:25 | XMS_ITS | Encounter Summary ---
Author Organization Formerly [facility], 1928–1983 Address [facility] [place] [address] Care Team Providers Care Insole Tack Puller Hand Name Role Phone Gissell Davis APRN Primary Care Provider [phone] Encounter Details Date Type Department Care Team (Late st Contact Info) Description 11/16/2018 9:58 AM EDT - 11/16/2018 1:10 PM EDT Surgery [place] [id number] Nena Ace MD [facility] [place] [address] CYSTOURETEROSCOPY, LITHOTRIPSY (WRVU 7.5) Social History Tobacco Use Types Packs/Day Years [...] Sign Reading Time Taken Comments Blood Pressure 132/82 11/16/2018 1:09 PM EDT Pulse 88 11/16/2018 8:49 AM EDT Temperature 36.8 ??C (98.2 ??F) 11/16/2018 1:09 PM ED T Respiratory Rate 18 11/16/2018 1:09 PM EDT Oxygen Saturation 98% 11/16/2018 1:09 PM EDT Inhaled Oxygen Concentration - - Weight - - Height - - Body Mass Index - - documented in this encounter Discharge Instructions * Discharge Instructions* Syl Perkins RN - 11/16/2018 1:34 PM EDT Scopolamine Patch Discharge Instructions You are wearing a scopolamine patch. This is a medication patch used to prevent and treat nausea and vomiting after surgery. The patch is located: behind your right ear behind your left ear Please follow these instructions while you are wearing the patch. Try not to touch the patch. ??? If you do touch the patch, wash your hands right away. Make sure to remove all traces of medication from your hands. ??? If the medication gets on your hands and then you touch your eyes, your vision may become blurry or your pupils may widen. These are both normal and temporary reactions; they will go away shortly. Remove the patch on morning evening. ??? There will still be some active ingredients on the patch, so fold it in half (with the sticky sides together) and throw it in the trash. This will help prevent others from coming into contact with it. ??? After removing the patch, carefully wash your hands and behind your ear (or wherever the patch was placed) with soap and water. If you have not urinated in 6-8 hours after your surgery, remove the patch and call your surgeon. If you have any questions or concerns: Call the Same Day Program 8a-5pm Monday-Monday. All other times, call [phone] and ask for the anesthesiologist sludge control attendant. POST ANESTHESIA INSTRUCTIONS Go home, rest, use caution on stairs. Change positions slowly. Do not smoke if you are alone. Diet light to regular as tolerated today. If nausea occurs start with clear liquids and progress slowly. No driving, operating machinery, alcoholic beverages and no important decisions for 24 hours. Monitor IV site for signs and symptoms of infection: increasing redness, swelling, foul drainage, if occurs contact M.D. Patients who have had endotrachial tubes (this tube, used by anesthesia department, is passed down your throat after you are asleep, to ensure safe air passage during your operation). A sore throat is normal due to the tube. Cold liquids or soothing lozenges will help ease the discomfort. The generalized muscle aches are due to the medication given to you just before the tube is inserted. As the medication wears off, you may develop muscle soreness, which usually goes away in 12-24 hours. * Patient Instructions* SkylanamarybethGarett Cheryl - 11/16/2018 1:22 PM EDT Call your doctor for: ??? fevers greater than 101 ??? severe nausea or vomiting ??? increasing pain not controlled by pain medications The number for questions is [phone] before 5 PM weekdays and [phone] after 5 PM and weekends. Activity level: Increased activity may lead to more stent discomfort and more blood in your urine. Your activity level will be determined by your comfort level. Diet: You may resume your regular diet as tolerated. Antibiotic: please take the antibiotic ciprofloxacin for the next 48 hr Driving: No driving while still taking opioid pain medications (wait at least 6- 8 hours since last dose). No driving if you are still sore from surgery as it may limit your ability to react quickly if necessary. Shower/Bath: No restrictions. Stent Discomfort: Most patients experience some degree of discomfort related to their ureteral stent. Symptoms include flank pain (increased during urination), frequency and urgency of urination, burning or pain in the bladder or urethral with urination, pelvic discomfort, and blood in the urine. Your symptoms may be exacerbated by activity. To manage your stent symptoms, try the following: - drink plenty of fluid (~2 liters per day or enough to make urine clear or pale yellow) - take ibuprofen (Motrin, Advil, or generic), up to 600-800mg every 8 hours - take acetaminophen (Tylenol), up to 650mg every 4 hours (regular strength) or 1000mg every 6 hours (extra strength) - take flomax as prescribed Follow up Appointments: You will be scheduled for future removal of your kidney stone in about a month. Please call [phone] if you do not hear from the Urologic clinic in the next couple of daysabout when your procedure will be scheduled. It is important to remember that your ureteral stent cannot stay in place permanently. If it remains in place too long it may become encrusted with stone and require additional surgery to remove it. Please call our office if you do not receive your appointment or if you need to reschedule. documented in this encounter Medications at Time [...] 1 Capsule(s), PO, Three times daily 03/18/2010 sulfamethoxazole-trim ethoprim (BACTRIM DS) 800-160 mg Tablet Take 1 tablet by mouth 2 times daily for 3 days. 6 tablet 12/28/2018 12/31/2018 ciprofloxacin (CIPRO) 500 mg Tablet Take 1 tablet by mouth 2 times daily for 2 days. 4 tablet 11/16/2018 11/18/2018 documented as of this encounter H&P Notes * Garett Boogie - 11/16/2018 9:21 AM EDT Urology H&P ID: Barbara Chapman is a 48 y.o. female with a history of bilateral renal stone an who is here for cystoscopy, bilateral retrograde pyelograms, bilateral URS/LL, bilateral ureteral stent- 1st stage. No changes in health since her last admission. Urine cx from [facility] on 11/08/18 is mixed mucosal probable contaminate. She has been taking keflex as prescribed. Past Medical History - Asthma - Depression with anxiety - Diabetes - Gastroporesis - GERD - HLD - Migraines - Obesity ?? Past Surgical History - Bilateral TKA in 2017 and 2018. Left became infected with MSSA requiring explantation and placement of cement spacer. - NissenFundoplication - Abdominal wall hernia repair - Cholecystectomy - Hysterectomy Patient Vitals for the past 24 hrs: BP Temp Pulse Resp SpO2 11/16/18 0849 142/85 37 ??C (98.6 ??F) 88 18 100 % NAD, A&O Regular rate Unlabored on RA Soft, NTND Well perfused extremities A/P: Barbara Chapman is a 48 y.o. female who presents for the reasons listed above. Procedure and risks have been explained to the patient and all questions were answered. Informed consent has been obtained. Pt is ready for the OR. Ciprofloxacin pre op Garett Boogie MD documented in this encounter Miscellaneous Notes * Op Note - Garett Boogie - 11/16/2018 1:44 PM EDT Operative Note Patient Name: Barbara Chapman : [id number] MR#: [id number] Case Date: 11/16/2018 Surgeon: Surgeon(s) and Role: * Nena Ace MD - Primary * Garett Boogie MD - Resident Preoperative diagnosis: URETERAL OBSTRUCTION Postoperative diagnosis: URETERAL OBSTRUCTION Procedure(s): CYSTO, STENT PLACEMENT (WRVU 2.82) CYSTOURETEROSCOPY, LITHOTRIPSY (WRVU 7.5) CYSTOURETHROSCOPY WITH UTETEROSCOPY, W\REMOVAL, MANIPULATION OF CALCULUS (WRVU 6.75) MODIFIER HOLMIUM LASER Anesthesia: General Findings: Cystoscopy without abnormality. Left ureteral stent removed- moderate encrustation. Ureteral stone fragmented with laser and extracted with basket. Left lower pole renal stones removed withflexible ureteroscope and basket extraction. Left 7fr x28cm JJ stent placed. Right ureteral stent removed- moderate encrustation. Flexible URS visualized large right Ureteral stone. Stone not treateddue to size and patient approaching 3hr in lithotomy position. 7fr x 28JJ right ureteral stent replaced. Complications: none Estimated Blood Loss: 5cc Specimens removed during surgery: * No orders in the log * Fluids: Intraprocedure Crystalloid Total Lactated Ringers Volume (mL) 700 mL Fluids: ANES IntraOp Crystalloid (Filter: (AN Fluids) Medications Shown) Medication Calculated Total No medications were administered. Blood: none Urine Output: (no urine output recorded) Drains: 7r x 28 JJ ureteral stent bilateral Disposition: awakened from anesthesia, extubated and taken to the recovery room in a stable condition, having suffered no apparent untoward event. Condition: doing well without problems (Please see the Surgical Encounter Summary for any Implant and Specimen details pertinent to this patient.) Infection Bundle used? No Cipro pre op HPI. Barbara Chapman is a 48 y.o. female with a history of bilateral renal stone s/p bilateral ureteral stents who is here for cystoscopy, bilateral retrograde pyelograms, bilateral URS/LL, bilateralureteral stent- 1st stage Procedure: The patient was identified in the pre-operative holding area. Consent was verified. The patient wastaken to the operating room and placed supine on the operating table. General anesthesia was induced. The patient was then moved to the dorsal lithotomy position and prepped and draped in the usual sterile fashion. A timeout was performed involving all members of the OR team confirming the patient's identity and planned procedure. Preoperative antibiotics were administered. A 22 Fr rigid cystoscope was inserted into the bladder. 360 degree cystoscopy was done and revealednormal bladder without lesions and existing ureteral stents. The existing left ureteral stent was visualized. The stent was then grasped with a stent grasper and removed to the level of the urethral meatus. The cystoscope was removed over the stent. A guide wire was passed via the stent without difficulty, and the stent was removed and showed moderate encrustation. A semi-rigid ureteroscope was introduced. The left ureter was navigated easily and the known left proximal ~6mm ureteral stone was visualized. The semi-rigid ureteroscope was exchanged for a flexibleureteroscope, which was then introduced under direct vision. The scope was navigated to the level of the stone. Holmium BINA laser was used at 6 Hz and 0.8 J for fragmentation of the stone. A uretera l access sheath was then introduce over a glide wire under floroscopic guidance. Large fragments were extracted using a Jared basket; these were collected and sent to Pathology as a specimen. Smaller pieces were flushed out with irrigation. The ureteroscope was then advanced to the kidney and multiples small stones were removed from the left lower pole. There was an area of stone/papillar tip calcification in a lower pole calyx that was not accessible but could be visualized otherwise all freestone was removed and retrograde pyelography was performed to assist in inspecting the entire pyelocaliceal system. No further stones were found. The ureteroscope was slowly removed to inspect the ureter; no further calculi were seen. Using the cystoscope, a 7 Fr x 28 cm ureteral stent was insertedover the wire. The proximal coil was visualized on fluoroscopy to be within the renal pelvis, and the distal coil was seen with direct visualization in the bladder. The right stent was then grasped with a stent grasper and removed to the level of the urethral meatus. The cystoscope was removed over the stent. A guide wire was passed via the stent without difficulty, and the stent was removed and showed moderate encrustation. The flexible ureteroscope was passed to the mid ureter where a large >1cmureteral stone was visualized. The decision was made not totreat the stone at this time due to the patient approaching 3 hr in lithotomy position. A 7fr [id number] stent was then placed over a wire. The proximal coil was visualized on fluoroscopy to be within the right renal pelvis, and the distal coil was seen with direct visualization in the bladder. The bl adder was emptied. The cystoscope was removed. The patient tolerated the procedure well and was awakened from anesthesia with no adverse events. The patient was taken to the recovery area in stable condition. Dr. Ace, the attending surgeon, was present for the entire procedure. ANES IntraOp Crystalloid (Filter: (AN Fluids) Medications Shown) Medication Calculated Total No medications were administered. Associated attestation - Nena Ace MD - 11/17/2018 11:07 AM EDT Attestation: Case Date: 11/16/2018 I was present and I participated during the entire procedure (does not need to include opening and closing). Would add- all visualized mobile stone >2mm fragmented/removed from the left ureter/kidney right ureteral stent exchange for 7F stent Plan for second stage procedure Nena Ace MD 11/17/2018 * Brief Op Note - Garett Boogie - 11/16/2018 1:02 PM EDT Brief Operative Note Patient Name: Barbara Chapman : [id number] MR#: [id number] Case Date: 11/16/2018 Surgeon: Surgeon(s) and Role: * Nena Ace MD - Primary * Garett Boogie MD - Resident Preoperative diagnosis: URETERAL OBSTRUCTION Postoperative diagnosis: URETERAL OBSTRUCTION Procedure(s): CYSTO, STENT PLACEMENT (WRVU 2.82) CYSTOURETEROSCOPY, LITHOTRIPSY (WRVU 7.5) CYSTOURETHROSCOPY WITH UTETEROSCOPY, W\REMOVAL, MANIPULATION OF CALCULUS (WRVU 6.75) MODIFIER HOLMIUM LASER Anesthesia: General Findings: Cystoscopy without abnormality. Left ureteral stent removed- moderate encrustation. Ureteral stone fragmented with laser and extracted with basket. Left lower pole renal stones removed withflexible ureteroscope and basket extraction. Left 7fr x28cm JJ stent placed. Right ureteral stent removed- moderate encrustation. Flexible URS visualized large right Ureteral stone. Stone not treateddue to size and patient approaching 3hr in lithotomy position. 7fr x 28JJ right ureteral stent replaced. Complications: none Estimated Blood Loss: 5cc Specimens removed during surgery: * No orders in the log * Fluids: Intraprocedure Crystalloid Total Lactated Ringers Volume (mL) 700 mL Fluids: ANES IntraOp Crystalloid (Filter: (AN Fluids) Medications Shown) Medication Calculated Total No medications were administered. Blood: none Urine Output: (no urine output recorded) Drains: 7r x 28 JJ ureteral stent bilateral Disposition: awakened from anesthesia, extubated and taken to the recovery room in a stable condition, having suffered no apparent untoward event. Condition: doing well without problems (Please see the Surgical Encounter Summary for any Implant and Specimen details pertinent to this patient.) Infection Bundle used? No Cipro pre op ANES IntraOp Crystalloid (Filter: (AN Fluids) Medications Shown) Medication Calculated Total No medications were administered. Associated attestation - Nena Ace MD - 11/16/2018 1:35 PM EDT Attestation: Case Date: 11/16/2018 I was present and I participated during the entire procedure (does not need to include opening and closing). Nena Ace MD 11/16/2018 documented in this encounter Plan of Treatment Not on file documented as of this encounter Procedures Procedure Name Priority Date/Time Associated Diagnosis Comments POCT GLUCOSE Routine 11/16/2018 1:13 PM EDT XR FLUORO NO RAD <1HR - OR USE Routine 11/16/2018 1:06 PM EDT [facility] KIDNEY STONE ANALYSIS Routine 11/16/2018 12:40 PM EDT HC URINE CULTURE Routine 11/16/2018 10:1 0 AM EDT MODIFIER HOLMIUM LASER Yes 11/16/2018 9:41 AM EDT URETERAL OBSTRUCTION Cysto/Uretero/Pyelos copy, [place]culus Tx (30941) Yes 11/16/2018 9:41 AM EDT URETERAL OBSTRUCTION Cysto/Uretero/Pyelos copy W/Lithotripsy (20892) Yes 11/16/2018 9:41 AM EDT URETERAL OBSTRUCTION Cystoscopy, Insert Ureteral Stent ([id number]) Yes 11/16/2018 9:41 AM EDT URETERAL OBSTRUCTION POCT GLUCOSE Routine 11/16/2018 9:00 AM EDT IMPLANTABLE DEVICES SCAN 11/16/2018 12:00 AM EDT documented in this encounter Results * POCT Glucose (11/16/2018 1:13 PM EDT) Glucose, POC 145 65 - 199 mg/dL [facility] Comment: Supplemental ranges: <140 mg/dL before meals <180 mg/dL all other times of the day Blood specimen (specimen) 11/16/2018 1:13 PM EDT 11/16/2018 1:13 PM EDT Nena Ace MD POINT OF CARE TEST O RDERABLES [facility] [place] [address] * XR Fluoro No Rad <1Hr - OR Use (11/16/2018 1:06 PM EDT) Narrative DH RAD - 11/16/2018 1:07 PM EDT This exam is auto-finalizing. No interpretation was done. Nena Ace MD IMG FLUORO ORDERABLE S DH [place], [place] * Kidney Stone Analysis (11/16/2018 12:40 PM EDT) Kidney Stone Analysis (MAY) Test ?Result ? Flag ??Unit ??RefValue Kidney Stone Analysis ??Source: ? Ureter ??Interpretation ?SEE COMMENTS ?90% Calcium oxalate monohydrate ?10% Calcium phosphate (apatite) ?Test Performed by: ?[facility] ?[address] [place] [address] ?Radio Time Salesperson: Mario River M.D. Ph.D.; CLIA# [id number] [facility] Calculus specimen (specimen) 11/16/2018 12:40 PM EDT 11/16/2018 3:42 PM EDT Narrative Resulting Agency Comment Spec In Lab Nena Ace MD LAB SEND OUT ORDERAB LES Performing Organization Address [facility] Co de Phone Number [facility] [place] [address] * Urine culture Cystoscopic Urine (11/16/2018 10:10 AM EDT) Urine Culture No growth (Less than 100 cfu/ml). [facility] Urine specimen (specimen) 11/16/2018 10:10 AM EDT 11/16/2018 2:25 PM EDT Narrative Resulting Agency Comment Spec In Lab Nena Ace MD MICROBIOLOGY - GENER AL ORDERABLES Performing Organization Address [facility]/ZIP Co de Phone Number [facility] [place] [address] * POCT Glucose (11/16/2018 9:00 AM EDT) Glucose, POC 135 65 - 199 mg/dL [facility] Comment: Supplemental ranges: <140 mg/dL before meals <180 mg/dL all other times of the day Blood specimen (specimen) 11/16/2018 9:00 AM EDT 11/16/2018 9:00 AM EDT Nena Ace MD POINT OF CARE TEST O RDERABLES Performing Organization Address [facility] Co de Phone Number [facility] [place] [place] [address] * SCAN DOC: IMPLANTABLE DEVICES (11/16/2018 12:00 AM EDT) Narrative 11/16/2018 12:00 AM EDT Ordered by an unspecified provider. Scanning Provider MEDIA MGR SCAN EXT O RDR/RSLT documented in this encounter Visit Diagnoses Not on filedocumented in this encounter Administered Medications Inactive Administered Medications - up to 3 most recent administrations Medication Order MAR Action Action Date Dose Rate Site acetaminophen (TYLENOL) tablet 1,000 mg 1,000 mg, Oral, ONCE, 1 dose, On Mon11/16/18 at 0915, Administer with SIP of H2O only., Day of Surgery (Day of Procedure), Routine Given 11/16/2018 8:55 AM EDT 1,000 mg acetaminophen (TYLENOL) tablet 1,000 mg 1,000 mg, Oral, EVERY 8 HOURS PRN, Starting on Mon11/16/18 at 1326, Until Mon11/16/18 at 1610, Pain, Maximum dose of acetaminophen is 4000 mg from all sources in 24 hours., Routine citric acid-sodium citrate (Bicitra) (100 MG-66.8 mg/mL) oral liquid 30 mL 30 mL, Oral, ONCE PRN, 1 dose, Starting on Mon11/16/18 at 0850, Until Mon11/16/18 at 1610, GERD, Please administer if patient endorses current symptoms of heart burn/reflux when asked, Day of Surgery (Day of Procedure), Routine fentaNYL (PF) 50mcg/mL injection 12.5-25 mcg, Intravenous, EVERY 5 MIN PRN, Starting on Mon11/16/18 at 1308, Until Mon11/16/18 at 1610, Pain, Give 12.5 mcg every 5 minutes PRN for mild to moderate pain (1-5) Give 25 mcg every 5 minutes PRN for moderate to severe pain (6-10). Hold for respiratory rate less than 10 per minute. Maximum dose 250 mcg over one hour. If ordered with hydromorphone or morphine, give hydromorphone or morphine first and use fentanyl for breakthrough pain., PACU Recovery, Routine gabapentin (NEURONTIN) capsule 600 mg 600 mg, Oral, ONCE, 1 dose, On Mon11/16/18 at 0915, Administer with SIP of H2O only., Day of Surgery (Day of Procedure), Routine Given 11/16/2018 8:55 AM EDT 600 mg iohexol (OMNIPAQUE) 300 mg/mL solution ONCE PRN, Starting on Mon11/16/18 at 1252, Until Mon11/16/18 at 1610, Intra-Operative (Intra-Procedure), Routine Given 11/16/2018 12:52 PM EDT 30 mLs lactated ringers infusion 1,000 mL, at 100 mL/hr, Intravenous, CONTINUOUS, Starting on Mon11/16/18 at 0915, Until Mon11/16/18 at 1610, Day of Surgery (Day of Procedure) New Bag 11/16/2018 9:15 AM EDT 1,000 mLs 100 mL/hr lidocaine (XYLOCAINE) 10 mg/mL (1 %) injection 3 mg 3 mg (0.3 mL), Subcutaneous, ONCE PRN, 1 dose, Starting on Mon11/16/18 at 0850, Until Mon11/16/18 at 1610, for discomfort with PIV insertion, Day of Surgery (Day of Procedure), Routine naloxone (NARCAN) injection 0.04 mg 0.04 mg, Intravenous, EVERY 5 MIN PRN, Starting on Mon11/16/18 at 1308, Until Mon11/16/18 at 1610, Opioid Reversal, for respiratory rate less than 6 or unresponsive., May repeat every 5 minutes to increase respiratory rate. DO NOT exceed 0.12 mg total dose. Notify anesthesia immediately if administered., PACU Recovery, Routine ondansetron (ZOFRAN) injection 4 mg 4 mg, Intravenous, EVERY 30 MIN PRN, Starting on Mon11/16/18 at 1308, Until Mon11/16/18 at 1610, Nausea, May repeat 4 mg once in 30 minutes. If multiple antiemetics ordered, use ondansetron first and if ineffective use prochlorperazine second and if ineffective use promethazine, PACU Recovery oxyCODONE (ROXICODONE) immediate release tablet 5 mg 5 mg, Oral, ONCE PRN, 1 dose, Starting on Mon11/16/18 at 1326, Until Mon11/16/18 at 1610, Pain, Routine prochlorperazine (COMPAZINE) injection 5 mg 5 mg, Intravenous, EVERY 30 MIN PRN, 2 doses, Starting on Mon11/16/18 at 1308, Until Mon11/16/18 at 1610, Nausea, May repeat 5 mg once in 30 minutes. If multiple antiemetics ordered, use ondansetron first and if ineffective use prochlorperazine second and if ineffective use promethazine, PACU Recovery, Routine promethazine (PHENERGAN) injection 12.5 mg 12.5 mg, Intravenous, EVERY 30 MIN PRN, Nausea, Starting on Mon11/16/18 at 1308, 2 doses, Until Mon11/16/18 at 1610, VESICANT - Dilute with a minimum of 10 mL saline. LARGE VEIN only. Inject over 10 minutes into the farthest port of a running IV infusion. Remain with the patient and STOP infusion immediately if patient reports burning. Avoid extravasation. If multiple antiemetics are ordered, use ondansetron first and if ineffective use prochlorperazine second and if ineffective use promethazine., PACU Recovery scopolamine (TRANSDERM-SCOP) 1 mg over 3 days patch 1 patch 1 patch, Transdermal, ONCE, 1 dose, On Mon11/16/18 at 0945, Day of Surgery (Day of Procedure), Routine Patch Applied 11/16/2018 9:27 AM EDT 1 patch 01- Ear Behind (Left) sodium chloride 0.9 % (flush) flush 5-20 mL 5-20 mL, Intravenous, EVERY 1 MIN PRN, Starting on Mon11/16/18 at 0850, Until Mon11/16/18 at 1610, flush, Flush pertains to all indwelling lines. Flush per protocol found in the job aid using the link provided on this medication record., Day of Surgery (Day of Procedure), Routine documented in this encounter Active and Recently Administered Medications Times are shown in EDT. Scheduled Medication Order 11/14/2018 11/15/2018 11/16/2018 acetaminophen (TYLENOL) tablet 1,000 mg (COMPLETED) 1,000 mg, Oral, ONCE, 1 dose, On Mon11/16/18 at 0915, Administer with SIP of H2O only., Day of Surgery (Day of Procedure), Routine 0855 (Given - Provid er: Albina Bolivar RN) ciprofloxacin (CIPRO) 400 mg in dextrose 5% 200 mL (COMPLETED) 400 mg, Intravenous, EQUIPMENT MECHANIC SPECIALIST TO O.R., 1 dose, On Mon11/16/18 at 0945, Administer over 60 Minutes, Indication for (Active or Suspected): Prophylaxis, Restricted Antibiotic: Please indicate the most appropriate choice: Pre-approved Indication (State the indication in Comments field) 0949 (Canceled Entry - Provider: Qiana Negro MD)0955 (Given - Provider: Qiana Negro MD) ciprofloxacin (CIPRO) tablet 500 mg 500 mg, Oral, 2 TIMES DAILY, 4 doses, First dose on Mon11/16/18 at 1900, Last dose on Mon11/18/18 at 0700, Routine, Indication for (Active or Suspected): Urinary Tract/Pyelonephritis gabapentin (NEURONTIN) capsule 600 mg (COMPLETED) 600 mg, Oral, ONCE, 1 dose, On Mon11/16/18 at 0915, Administer with SIP of H2O only., Day of Surgery (Day of Procedure), Routine 0855 (Given - Provid er: Albina Bolivar RN) ipratropium-albuterol (DUONEB) 0.5 mg-3 mg(2.5 mg base)/3 mL nebulizer solution 3 mL 3 mL, Nebulization, ONCE, 1 dose, On Mon11/16/18 at 1115, Please administer in recovery, Routine 1115 (Due) scopolamine (TRANSDERM-SCOP) 1 mg over 3 days patch 1 patch (COMPLETED) 1 patch, Transdermal, ONCE, 1 dose, On Mon11/16/18 at 0945, Day of Surgery (Day of Procedure), Routine 09 (Patch Applied - Provider: Albina Bolivar RN) Continuous Medication Order 11/14/2018 11/15/2018 11/16/2018 lactated ringers infusion 1,000 mL, at 100 mL/hr, Intravenous, CONTINUOUS, Starting on Mon11/16/18 at 0915, Until Mon11/16/18 at 1610, Day of Surgery (Day of Procedure) 0915 (New Bag - Prov ider: Albina Bolivar RN) PRN Medication Order 11/14/2018 11/15/2018 11/16/2018 acetaminophen (TYLENOL) tablet 1,000 mg 1,000 mg, Oral, EVERY 8 HOURS PRN, Starting on Mon11/16/18 at 1326, Until Mon11/16/18 at 1610, Pain, Maximum dose of acetaminophen is 4000 mg from all sources in 24 hours., Routine citric acid-sodium citrate (Bicitra) (100 MG-66.8 mg/mL) oral liquid 30 mL 30 mL, Oral, ONCE PRN, 1 dose, Starting on Mon11/16/18 at 0850, Until Mon11/16/18 at 1610, GERD, Please administer if patient endorses current symptoms of heart burn/reflux when asked, Day of Surgery (Day of Procedure), Routine fentaNYL (PF) 50mcg/mL injection 12.5-25 mcg, Intravenous, EVERY 5 MIN PRN, Starting on Mon11/16/18 at 1308, Until Mon11/16/18 at 1610, Pain, Give 12.5 mcg every 5 minutes PRN for mild to moderate pain (1-5) Give 25 mcg every 5 minutes PRN for moderate to severe pain (6-10). Hold for respiratory rate less than 10 per minute. Maximum dose 250 mcg over one hour. If ordered with hydromorphone or morphine, give hydromorphone or morphine first and use fentanyl for breakthrough pain., PACU Recovery, Routine iohexol (OMNIPAQUE) 300 mg/mL solution (CANCELED) ONCE PRN, Starting on Mon11/16/18 at 1252, Until Mon11/16/18 at 1610, Intra-Operative (Intra-Procedure), Routine 1252 (Given - Provid er: Nena Ace MD) lidocaine (XYLOCAINE) 10 mg/mL (1 %) injection 3 mg 3 mg (0.3 mL), Subcutaneous, ONCE PRN, 1 dose, Starting on Mon11/16/18 at 0850, Until Mon11/16/18 at 1610, for discomfort with PIV insertion, Day of Surgery (Day of Procedure), Routine naloxone (NARCAN) injection 0.04 mg 0.04 mg, Intravenous, EVERY 5 MIN PRN, Starting on Mon11/16/18 at 1308, Until Mon11/16/18 at 1610, Opioid Reversal, for respiratory rate less than 6 or unresponsive., May repeat every 5 minutes to increase respiratory rate. DO NOT exceed 0.12 mg total dose. Notify anesthesia immediately if administered., PACU Recovery, Routine ondansetron (ZOFRAN) injection 4 mg 4 mg, Intravenous, EVERY 30 MIN PRN, Starting on Mon11/16/18 at 1308, Until Mon11/16/18 at 1610, Nausea, May repeat 4 mg once in 30 minutes. If multiple antiemetics ordered, use ondansetron first and if ineffective use prochlorperazine second and if ineffective use promethazine, PACU Recovery oxyCODONE (ROXICODONE) immediate release tablet 5 mg 5 mg, Oral, ONCE PRN, 1 dose, Starting on Mon11/16/18 at 1326, Until Mon11/16/18 at 1610, Pain, Routine prochlorperazine (COMPAZINE) injection 5 mg 5 mg, Intravenous, EVERY 30 MIN PRN, 2 doses, Starting on Mon11/16/18 at 1308, Until Mon11/16/18 at 1610, Nausea, May repeat 5 mg once in 30 minutes. If multiple antiemetics ordered, use ondansetron first and if ineffective use prochlorperazine second and if ineffective use promethazine, PACU Recovery, Routine promethazine (PHENERGAN) injection 12.5 mg 12.5 mg, Intravenous, EVERY 30 MIN PRN, Nausea, Starting on Mon11/16/18 at 1308, 2 doses, Until Mon11/16/18 at 1610, VESICANT - Dilute with a minimum of 10 mL saline. LARGE VEIN only. Inject over 10 minutes into the farthest port of a running IV infusion. Remain with the patient and STOP infusion immediately if patient reports burning. Avoid extravasation. If multiple antiemetics are ordered, use ondansetron first and if ineffective use prochlorperazine second and if ineffective use promethazine., PACU Recovery sodium chloride 0.9 % (flush) flush 5-20 mL 5-20 mL, Intravenous, EVERY 1 MIN PRN, Starting on Mon11/16/18 at 0850, Until Mon11/16/18 at 1610, flush, Flush pertains to all indwelling lines. Flush per protocol found in the job aid using the link provided on this medication record., Day of Surgery (Day of Procedure), Routine documented in this encounter Care Teams Insole Tack Puller Hand Relationship Specialty Start Date End Date Gissell Davis, KENYATTA [address] [facility] [address] [place] [address] PCP - General Family Medicine 08/21/18 11/12/21 documented as of this encounter
--- OUTSIDE RECORDS SUMMARY | 2023-10-05 02:25 | XMS_ITS | Encounter Summary ---
[place] [address] Care Team Providers Care Survey Cad Technician Name Role Phone Susan Gissell Katherine YOU Primary Care Provider [phone] Encounter Details Date Type Department Care Team (Latest Contact Info) Description 11/16/2018 7:40 AM EDT Laboratory Appointment Lab [address] [place] [phone] Other symptoms and signs involving the genitourinary [...] Name Priority Date/Time Associated Diagnosis Comments HC URINE CULTURE Routine 11/16/2018 7:43 AM EDT Other symptoms and signs involving the genitourinary system documented in this encounter Results * Urine culture Clean Catch Urine (11/16/2018 7:43 AM EDT) Urine Culture No growth (Less than 1,000 cfu/ml). [facility] Urine specimen obtained by clean catch procedure (specimen) 11/16/2018 7:43 AM EDT 11/16/2018 8:33 AM EDT Narrative Resulting Agency Comment Spec In Lab Nena Ace MD MICROBIOLOGY - GENER AL ORDERABLES [facility] [place] [place] [address] documented in this encounter Visit Diagnoses Diagnosis Other symptoms and signs involving the genitourinary system documented in this encounter Care Teams Survey Cad Technician Relationship Specialty Start Date End Date Gissell Davis APRN [address] [place] [address] PCP - General Family Medicine 08/21/18 11/12/21 documented as of this encounter
--- OUTSIDE RECORDS SUMMARY | 2023-10-05 02:25 | XMS_ITS | Encounter Summary ---
Author Organization [facility] [place] [address] Care Team Providers Care Sumatra Opener Name Role Phone Gissell Davis APRN Primary Care Provider [phone] Encounter Details Date Type Department Care Team (Latest Contact Info) Description 11/16/2018 7:26 AM EDT - 11/16/2018 2:10 PM EDT Hospital Encounter [place] [address] Nena Ace MD [facility] [place] [address] Discharge Disposition: Home Social History Tobacco Use [...] Sign Reading Time Taken Comments Blood Pressure 139/89 11/16/2018 1:49 PM EDT Pulse 88 11/16/2018 8:49 AM EDT Temperature 36.8 ??C (98.2 ??F) 11/16/2018 1:09 PM ED T Respiratory Rate 18 11/16/2018 1:49 PM EDT Oxygen Saturation 96% 11/16/2018 1:49 PM EDT Inhaled Oxygen Concentration - - [...] Program 8a-5pm Monday-Monday. All other times, call [phone] and ask for the anesthesiologist sustainable design consultant. POST ANESTHESIA INSTRUCTIONS Go home, rest, use [...] away in 12-24 hours. * Patient Instructions* KeaganGarett Cheryl - 11/16/2018 1:22 PM EDT Call your doctor for: ??? fevers greater than 101 ??? severe nausea or vomiting ??? increasing pain not controlled by pain medications The number for questions is [phone] before 5 PM weekdays and [phone] after 5 PM and weekends. Activity level: [...] stone in about a month. Please call [phone] if you do not hear from the [...] since her last admission. Urine cx from [facility] on 11/08/18 is mixed mucosal probable contaminate. [...] for the OR. Ciprofloxacin pre op Garett Booige MD documented in this encounter Miscellaneous Notes * Op Note - Garett Boogie - 11/16/2018 1:44 PM EDT Operative Note Patient Name: Barbara Chapman : [id number] MR#: [id number] Case Date: 11/16/2018 Surgeon: Surgeon(s) and Role: [...] 3 hr in lithotomy position. A [id number] stent was then placed over a wire. [...] Operative Note Patient Name: Barbara Chapman : [id number] MR#: [id number] Case Date: 11/16/2018 Surgeon: Surgeon(s) and Role: [...] USE Routine 11/16/2018 1:06 PM EDT HC [facility] KIDNEY STONE ANALYSIS Routine 11/16/2018 12:40 PM EDT HC URINE CULTURE Routine 11/16/2018 10:1 0 AM EDT MODIFIER HOLMIUM LASER Yes 11/16/2018 9:41 AM EDT URETERAL OBSTRUCTION Cysto/Uretero/Pyelos copy, Calculus Tx ([id number]) Yes 11/16/2018 9:41 AM EDT URETERAL OBSTRUCTION Cysto/Uretero/Pyelos copy W/Lithotripsy (32430) Yes 11/16/2018 9:41 AM EDT URETERAL OBSTRUCTION Cystoscopy, Insert Ureteral Stent ([id number]) Yes 11/16/2018 9:41 AM EDT URETERAL OBSTRUCTION POCT GLUCOSE Routine 11/16/2018 9:00 AM EDT IMPLANTABLE DEVICES SCAN 11/16/2018 12:00 AM EDT documented in this encounter Results * POCT Glucose (11/16/2018 1:13 PM EDT) Glucose, POC 145 65 - 199 mg/dL [facility] Comment: Supplemental ranges: <140 mg/dL before meals <180 mg/dL all other times of the day Blood specimen (specimen) 11/16/2018 1:13 PM EDT 11/16/2018 1:13 PM EDT Nena Ace MD POINT OF CARE TEST O RDERABLES Performing Organization Address City/[facility]/ZIP Co de Phone Number [facility] [place] [address] * XR Fluoro No Rad <1Hr - OR Use (11/16/2018 1:06 PM EDT) Narrative RAD - 11/16/2018 1:07 PM EDT This exam is auto-finalizing. No interpretation was done. Nena Ace MD IMG FLUORO ORDERABLE S Performing Organization Address City/[facility]/ZIP Co de Phone Number [place], [place] * Kidney Stone Analysis (11/16/2018 12:40 PM EDT) Kidney Stone Analysis (MAY) Test ?Result ? Flag ??Unit ??RefValue Kidney Stone Analysis ??Source: ? Ureter ??Interpretation ?SEE COMMENTS ?90% Calcium oxalate monohydrate ?10% Calcium phosphate (apatite) ?Test Performed by: ?[facility] ?[address] [place] [address] ?Lead Esthetician: Mario River M.D. Ph.D.; CLIA# [id number] [facility] Calculus specimen (specimen) 11/16/2018 12:40 PM EDT 11/16/2018 3:42 PM EDT Narrative Resulting Agency Comment Spec In Lab Nena Ace MD LAB SEND OUT ORDERAB LES [facility] [place] [address] * Urine culture Cystoscopic Urine (11/16/2018 10:10 AM EDT) Urine Culture No growth (Less than 100 cfu/ml). [facility] Urine specimen (specimen) 11/16/2018 10:10 AM EDT 11/16/2018 2:25 PM EDT Narrative Resulting Agency Comment Spec In Lab Nena Ace MD MICROBIOLOGY - GENER AL ORDERABLES Performing Organization Address City/[facility]/ZIP Co de Phone Number [facility] [place] [address] * POCT Glucose (11/16/2018 9:00 AM EDT) Glucose, POC 135 65 - 199 mg/dL [facility] Comment: Supplemental ranges: <140 mg/dL before meals <180 mg/dL all other times of the day Blood specimen (specimen) 11/16/2018 9:00 AM EDT 11/16/2018 9:00 AM EDT Nena Ace MD POINT OF CARE TEST O RDERABLES Performing Organization Address [facility] Co de Phone Number [facility] [place] [address] * SCAN DOC: IMPLANTABLE DEVICES (11/16/2018 12:00 [...] Given 11/16/2018 8:55 AM EDT 600 mg lactated ringers infusion 1,000 mL, at 100 [...] 5% 200 mL (COMPLETED) 400 mg, Intravenous, CAREER MANAGER TO O.R., 1 dose, On Mon11/16/18 at [...] Day of Surgery (Day of Procedure), Routine 926 (Patch Applied - Provider: Albina Bolivar RN) Continuous Medication Order 11/14/2018 11/15/2018 11/16/2018 lactated ringers infusion 1,000 mL, at 100 mL/hr, Intravenous, CONTINUOUS, Starting on Mon11/16/18 at 0915, Until Mon11/16/18 at 1610, Day of Surgery (Day of Procedure) 914 (New Bag - Prov ider: Albina Bolivar [...] Routine documented in this encounter Care Teams Sumatra Opener Relationship Specialty Start Date End Date Gissell Davis APRN [address] [place] [address] PCP - General Family Medicine 08/21/18 11/12/21 documented as of this encounter
--- OUTSIDE RECORDS SUMMARY | 2023-10-05 02:25 | XMS_ITS | Encounter Summary ---
Author [facility] [place] [address] Care Team Providers Care Head Of It Name Role Phone Gissell Davis APRN Primary Care Provider Encounter Details Date Type Department Care Team (Late st Contact Info) Description 01/21/2019 [place] [phone] Mariella Olivera LPN Social History Tobacco Use Types Packs/Day Years [...] encounter Miscellaneous Notes * Telephone Encounter - Mariella Olivera LNA - 01/21/2019 3:14 PM EST Call placed to [facility] lab regarding urine culture results. No answer. Will try back at later time. documented in this encounter Plan of Treatment Not on file documented as of this encounter Visit Diagnoses Not on filedocumented in this encounter Care Teams Head Of It Relationship Specialty Start Date End Date Gissell Davis APRN [address] [place] [address] PCP - General Family Medicine 08/21/18 11/12/21 documented as of this encounter
--- OUTSIDE RECORDS SUMMARY | 2023-10-05 02:25 | XMS_ITS | Encounter Summary ---
Author Organization [facility] [place] [address] Care Team Providers Care Welcome Hostess Name Role Phone Gissell Davis APRN Primary Care Provider Encounter Details Date Type Department Care Team (Late st Contact Info) Description 01/02/2019 [place] [address] [facility] [place] [address] Other symptoms and signs involving the genitourinary [...] as of this encounter Visit Diagnoses Diagnosis Other symptoms and signs involving the genitourinary system documented in this encounter Care Teams Welcome Hostess Relationship Specialty Start Date End Date Gissell Davis APRN [address] [place], [place] [address] PCP - General Family Medicine 08/21/18 11/12/21 documented as of this encounter
--- OUTSIDE RECORDS SUMMARY | 2023-10-05 02:25 | XMS_ITS | Encounter Summary ---
Author Organization [facility] Address [facility] [place] [address] Care Team Providers Care Imitation Marble Mechanic Name Role Phone Gissell Davis APRN Primary Care Provider Encounter Details Date Type Department Care Team (Late st Contact Info) Description 01/24/2019 7:06 AM EST - 01/24/2019 10:59 AM EST Hospital Encounter [place] [address] Stacey Leblanc MD [facility] [address] Discharge Disposition: Home Social History Tobacco Use [...] closest emergency room or call the hospital dowel setting machine operator at [phone] and ask for physician classification counselor covering for your physician. Questions or problems after 5pm or on a weekend: Call the [facility] dowel setting machine operator at and ask for the physician classification counselor covering for your doctor. * Patient Instructions* [...] stops draining please call our office at [phone] before 5PM or [phone] after hours. Call Doctor for: Please call if you have copious blood in your urine, severe back or side pain, pain not controlled by pain medications, persistent nausea and vomiting, or for any fevers greater vnts108.3 F. The number for questions is [phone] before 5 PM weekdays and [phone] after 5 PM and weekends. Pain Medication: [...] 7.5) performed by Nena Ace MD at [facility] OR ??? PRO CYSTO/URETERO/PYELOSCOPY W/LITHOTRIPSY Bilateral 12/28/2018 ?? CYSTOURETEROSCOPY, LITHOTRIPSY (WRVU 7.5) performed by Nena Ace MD at [facility] OR ??? PRO CYSTO/URETERO/PYELOSCOPY, CALCULUS TX Bilateral 11/16/2018 ?? CYSTOURETHROSCOPY WITH UTETEROSCOPY, W\REMOVAL, MANIPULATION OF CALCULUS (WRVU 6.75) performed by Nena Ace MD at [facility] OR ??? PRO CYSTOSCOPY, INSERT URETERAL STENT Bilateral 10/16/2018 ?? CYSTO, STENT PLACEMENT (WRVU 2.82) performed by Agustin Crespo MD at [facility] OR ??? PRO CYSTOSCOPY, INSERT URETERAL STENT Bilateral 11/16/2018 ?? CYSTO, STENT PLACEMENT (WRVU 2.82) performed by Nena Ace MD at [facility] OR ??? PRO CYSTOURETHROSCOPY, URETER CATHETER Bilateral 10/16/2018 ?? CYSTO, RETROGRADE, URETEROPYELOGRAPHY (WRVU 2.37) performed by Agustin Crespo MD at [facility] OR ? No current facility-administered medications on [...] 7.5) performed by Nena Ace MD at [facility] OR ??? PRO CYSTO/URETERO/PYELOSCOPY W/LITHOTRIPSY Bilateral 12/28/2018 ?? CYSTOURETEROSCOPY, LITHOTRIPSY (WRVU 7.5) performed by Nena Ace MD at [facility] OR ??? PRO CYSTO/URETERO/PYELOSCOPY, CALCULUS TX Bilateral 11/16/2018 ?? CYSTOURETHROSCOPY WITH UTETEROSCOPY, W\REMOVAL, MANIPULATION OF CALCULUS (WRVU 6.75) performed by Nena Ace MD at [facility] OR ??? PRO CYSTOSCOPY, INSERT URETERAL STENT Bilateral 10/16/2018 ?? CYSTO, STENT PLACEMENT (WRVU 2.82) performed by Agustin Crespo MD at [facility] OR ??? PRO CYSTOSCOPY, INSERT URETERAL STENT Bilateral 11/16/2018 ?? CYSTO, STENT PLACEMENT (WRVU 2.82) performed by Nena Ace MD at [facility] MAIN OR ??? PRO CYSTOURETHROSCOPY, URETER CATHETER Bilateral 10/16/2018 ?? CYSTO, RETROGRADE, URETEROPYELOGRAPHY (WRVU 2.37) performed by Agustin Crespo MD at [facility] OR ? No current facility-administered [...] Leblanc MD - 01/24/2019 10:13 AM EST [facility] Operative Note Patient Name: Barbara Chapman : [id number] MR#: [id number] Case Date: 01/24/2019 Surgeon: Surgeon(s) and Role: [...] procedure. Preoperative antibiotics were administered. The 22 kazakh rigid cystoscope was inserted to the bladder. [...] pollack catheter was removed and a 6 kazakh by 26 centimeter double J stent was [...] Operative Note Patient Name: Barbara Chapman : [id number] MR#: [id number] Case Date: 01/24/2019 Surgeon: Surgeon(s) and Role: [...] OR USE Routine 01/24/2019 10:18 AM EST [facility] KIDNEY STONE ANALYSIS Routine 01/24/2019 9:57 AM EST Cystourethroscopy, Ureter Catheter ([id number]) Yes 01/24/2019 8:34 AM EST Ureteral obstruction MODIFIER HOLMIUM LASER Yes 01/24/2019 8:34 AM EST Ureteral obstruction Cysto/Uretero/Pyelo scopy, Calculus Tx ([id number]) Yes 01/24/2019 8:34 AM EST Ureteral obstruction Cysto/Uretero/Pyelo scopy W/Lithotripsy ([id number]) Yes 01/24/2019 8:34 AM EST Ureteral obstruction Cystoscopy, Insert Ureteral Stent ([id number]) Yes 01/24/2019 8:34 AM EST Ureteral obstruction documented in this encounter Results * XR Fluoro No Rad <1Hr - OR Use (01/24/2019 10:18 AM EST) Narrative [facility] - 01/24/2019 10:19 AM EST This exam is auto-finalizing. No interpretation was done. Stacey Leblanc MD IMG FLUORO TRACEY WHITE Performing Organization Address [facility] Co de Phone Number [place], [place] * Kidney Stone Analysis (01/24/2019 9:57 AM EST) Kidney Stone Analysis (MAY) Test ?Result ? Flag ??Unit ??RefValue Kidney Stone Analysis ??Source: ? Right Ureter ??Interpretation ?SEE COMMENTS ?80% Calcium oxalate monohydrate ?20% Uric acid ?Test Performed by: ?[facility] ?[address] [place] [address] ?Multi Mission Helicopter Aircrewman: Mario River M.D. Ph.D.; CLIA# [id number] [facility] Calculus specimen (specimen) 01/24/2019 9:57 AM EST 01/24/2019 1:41 PM EST Narrative Resulting Agency Comment Spec In Lab Stacey Leblanc MD LAB SEND OUT OR DERABLES Performing Organization Address [facility] Co de Phone Number [facility] [place] [address] documented in this encounter Visit Diagnoses Not on filedocumented in this encounter Administered Medications Inactive Administered Medications - up to 3 most recent administrations Medication Order MAR Action Action Date Dose Rate Site lactated ringers infusion 1,000 mL, at 100 mL/hr, Intravenous, CONTINUOUS, Starting on Christen 12 at 0800, Until Christen 01/24/19 at 1101, [...] mL Mini-Bag Plus (COMPLETED) 2 g, Intravenous, HISTORIOGRAPHY PROFESSOR TO O.R., 1 dose, On Christen 01/24/19 [...] Starting on Christen 01/24/19 at 0915, Until Crhisten 01/24/19 at 1302, Intra-Operative (Intra-Procedure), Routine 0915 (Given - Provid er: Stacey Leblanc MD - Comment: injected via cysto) documented in this encounter Care Teams Imitation Marble Mechanic Relationship Specialty Start Date End Date Gissell Davis, KENYATTA [address] [place] [address] PCP - General Family Medicine 08/21/18 11/12/21 documented as of this encounter
--- OUTSIDE RECORDS SUMMARY | 2023-10-05 02:25 | XMS_ITS | Encounter Summary ---
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 Referral ID Status Reason Start Date Expiration Date Visits Re quested Visits Authorized [id number] 1 1 Encounter Details Date Type Department Care Team (Late st Contact Info) Description 10/16/2018 2:40 PM EDT - 10/16/2018 4:11 PM EDT [place] [id number] Lisset Gonzales MD [facility] [place] [address] CYSTO, STENT PLACEMENT (WRVU 2.82) Social History [...] Sign Reading Time Taken Comments Blood Pressure 126/78 10/16/2018 11:45 AM EDT Pulse - - Temperature 36.8 ??C (98.3 ??F) 10/16/2018 1 1:45 AM EDT Respiratory Rate 18 10/16/2018 11:4 5 AM EDT Oxygen Saturation 94% 10/16/2018 11: 45 AM EDT Inhaled Oxygen Concentration - - [...] Barbara Chapman Patient Age: 48 y.o. Language: Korean Race: White Ethnicity: Not nor Admit date: [...] joint infection and revision who presented to [facility] with flank pain andfound to have bilateral obstructive nephrolithiasis and acute kidney injury. ?? Ms. Chapman states that she developed flank pain about 2 days ago that radiated to her groin. She denied any fevers or chills. She has no history of nephrolithiasis. She denies any irritative voiding/LUTS or hematuria. CT imaging at [facility] showed bilateral ureteral stones. She was afebrile and hemodynamically stable upon admission. Her WBC was 11 and her creatinine was 3.64. UA was negative for nitrites, positive for trace leukocyte esterase and 5-10 WBC with many squams. This did not reflex for culture. Given her RENAE and bilateral stone burden, she was transferred to [facility] for further urologic care. ?? Upon arrival, Ms. Chapman is hemodynamically stable and afebrile. She states that her pain improved after fentanyl. She is unable to take NSAIDs given her fundoplication. She is currently comfortable,but states that the pain at its worst is unbearable. Hospital Course: Patient was admitted to [facility] from H and underwent the above procedure. [...] to urinate please call our office at [phone] before 5PM or [phone] after hours. Kidney Stone Patients: Try and [...] side pain, you should call our office [phone] before 5PM or [phone] after hours. Call Doctor for: Please call if you have copious blood in your urine, severe back or side pain, pain not controlled by pain medications, persistent nausea and vomiting, or for any fevers greater hobh775.3 F. The number for questions is [phone] before 5 PM weekdays and [phone] after 5 PM and weekends. Pain Medication: No driving for 8 hours after any dose of opioid pain medication if one was prescribed for you. You may use ibuprofen (motrin, advil) in addition to this medication if your pain is not totally controlled by the opioid. Follow-up: Please call [phone] (clinic number for appointments) to confirm date [...] PM Reggie Hull MD Infectious Disease at [facility] Arrive at: Lounge Car Attendant Area [phone] Follow-Up: Future Appointments Date Time Provider Department Center 12/04/2018 12:30 PM Reggie Hull MD [facility] [address] [place] [address] Primary Care Provider: Gissell Davis, MANAGER TAX [phone] Follow-up Recommendations for Providers: Please see discharge [...] was managed by the Urology Team at [facility]. If you have any questions or concerns, please feel free to contact us. Provider Contact Information: Urology Clinic: [facility] (after business hours): documented in this encounter [...] to urinate please call our office at [phone] before 5PM or [phone] after hours. Kidney Stone Patients: Try and [...] side pain, you should call our office [phone] before 5PM or [phone] after hours. Call Doctor for: Please call if you have copious blood in your urine, severe back or side pain, pain not controlled by pain medications, persistent nausea and vomiting, or for any fevers greater crwl730.3 F. The number for questions is [phone] before 5 PM weekdays and [phone] after 5 PM and weekends. Pain Medication: No driving for 8 hours after any dose of opioid pain medication if one was prescribed for you. You may use ibuprofen (motrin, advil) in addition to this medication if your pain is not totally controlled by the opioid. Follow-up: Please call [phone] (clinic number for appointments) to confirm date [...] Fay arrived to [facility] via stretcher from [facility]. No report received from facility - follow [...] for bilateral ureteral stents and cystoscopy. * aDriela Tom - 10/15/2018 2:17 PM EDT UROLOGY H&P HPI: Barbara Chapman is a 48 y.o. 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 Ms. Chapman states that she developed flank pain about 2 days ago that radiated to her groin. She denied any fevers or chills. She has no history of nephrolithiasis. She denies any irritative voiding/LUTS or hematuria. CT imaging at [facility] showed bilateral ureteral stones. She was afebrile and hemodynamically stable upon admission. Her WBC was 11 and her creatinine was 3.64. UA was negative for nitrites, positive for trace leuk esterase and 5-10 WBC with many squams. This did not reflex for culture. Given her RENAE and bilateral stone burden, she was transferred to [facility] for further urologic care. Upon arrival, Ms. [...] file Gets together: Not on file Attends quaker service: Not on file Active member of [...] CO2 22 BUN 20* CREATININE 2.99* Microbiology: UA [facility] 10/15: negative for nitrites, positive for trace leuk esterase and 5-10 WBC with many squams. No reflex. 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 Ace. Dariela Tom Urology, PGY-2 Consult pager #[phone] Associated attestation - Nena Ace MD - [...] Edwards MD - 10/16/2018 5:32 PM EDT [facility] Operative Note Patient Name: Barbara Chapman : [id number] MR#: [id number] ?? Case Date: 10/16/2018 ?? Surgeon: Surgeon(s) [...] Operative Note Patient Name: Barbara Chapman : [id number] MR#: [id number] Case Date: 10/16/2018 Surgeon: Surgeon(s) and Role: [...] used? N/A * Plan of Care - Sarah Pappas RN - 10/16/2018 5:12 PM EDT [...] patient -- * Consult Note - Ángela Cabral, [facility] - 10/16/2018 8:25 AM EDT Clinical Pharmacist Note - Renal Dose Adjustment for Antimicrobials Barbara Chapman (A# [id number]) is being treated with the following antimicrobial [...] joint infection and revision who presented to [facility] with flank pain and found to have [...] Primary care provider on file: Gissell Davis, MANAGER TAX [phone] Advance Directive on file and Code Status: Full Code Patient???s Functional Status: Independent Living Situation: [address] [place] [address] Supports: Assessment: Patient with no apparent RNCM/SW needs at this time. No housing, transportation, insurance, resources concerns identified at this time. Supports in place to achieve a safe post-hospital transition. No identified barriers to accessing necessary care and/or follow-up after discharge. Plan: Patient to d/c home via personal car when medically ready. grinder set up operator surface/Cardiology Physician will continue to follow patient???s progress and remain available if situation changes for coordination of care, psychosocial support and/or discharge planning. Lima Morales, RN Pager [phone] * Plan of Care - Yaneli Gómez RN - 10/16/2018 2:32 AM EDT Problem: Patient Care Overview Goal: Plan of Care Review Outcome: Ongoing (Interventions Implemented as Appropriate) 10/15/18 [id number] Coping/Psychosocial Plan Of Care Reviewed With -- [...] Participants nursing;patient * Plan of Care - Saarh Pappas RN - 10/15/2018 5:27 PM EDT [...] Implemented as Appropriate) 10/15/18 1506 10/15/18 1530 Safety Interventions Isolation Precautions -- standard precautions [...] 10/16/2018 5:27 PM EDT Cystourethroscopy, Ureter Catheter ([id number]) 10/16/2018 4:34 PM EDT Bilateral nephrolithiasis Cystoscopy, Insert Ureteral Stent ([id number]) 10/16/2018 4:34 PM EDT Bilateral nephrolithiasis POCT [...] EDT) Glucose 110 65 - 199 mg/dL [facility] Comment:Diabetes: >=200 mg/d L plus symptoms Blood Urea Nitrogen 16 8 - 18 mg/dL [facility] Creatinine 1.95(H) 0.70 - 1.20 mg/dL [facility] Comment:result rechecked-ssd Sodium 141 135 - 145 mmol/L [facility] Potassium 3.3(L) 3.5 - 5.0 mmol/L [facility] Comment: Please note: ??Patients with WBC >100,000 may have falsely elevated Potassium levels. ??For accurate Potassium quantification in these patients send serum separator tube (gold top) for subsequent determinations. ??Contact the Clinical Chemistry Laboratory if there are any questions. Chloride 104 98 - 107 mmol/L [facility] Carbon Dioxide 26 22 - 31 mmol/L [facility] Anion Gap 11 5 - 15 mmol/L [facility] Calcium 8.7 8.5 - 10.5 mg/dL [facility] Est Glomerular Filtration Rate 29(L) >=60 mL/min/1. 73 m?? [facility] Comment: The eGFR was calculated using the CKD-EPI equation. As with all creatinine based estimates of kidney function, eGFR values calculated with the CKD-EPI equation are not accurate in patients with acute kidney failure, extremes of body mass or the acutely ill. http://[facility] eGFR 34(L) >=60 mL/min/1. 73 m?? [facility] Comment: The eGFR was calculated using the CKD-EPI equation. As with all creatinine based estimates of kidney function, eGFR values calculated with the CKD-EPI equation are not accurate in patients with acute kidney failure, extremes of body mass or the acutely ill. http://[employer]/[facility] Blood specimen (specimen) 10/17/2018 5:08 AM EDT 10/17/2018 5:22 AM EDT Narrative Resulting Agency Comment Spec In Lab Nena Ace MD CHEMISTRY ORDERABLES Performing Organization Address [facility] Co de Phone Number [facility] [place] [address] * POCT Glucose (10/17/2018 4:38 AM EDT) Glucose, POC 102 65 - 199 mg/dL [facility] Comment: Supplemental ranges: <140 mg/dL before meals <180 mg/dL all other times of the day Blood specimen (specimen) 10/17/2018 4:38 AM EDT 10/17/2018 4:38 AM EDT Nena Ace MD POINT OF CARE TEST O RDERABLES Performing Organization Address [facility]/ZIP Co de Phone Number [facility] [place] [address] * POCT Glucose (10/16/2018 11:48 PM EDT) Glucose, POC 133 65 - 199 mg/dL [facility] Comment: Supplemental ranges: <140 mg/dL before meals <180 mg/dL all other times of the day Blood specimen (specimen) 10/16/2018 11:48 PM EDT 10/16/2018 11:48 PM EDT Nena Ace MD POINT OF CARE TEST O RDERAANN Performing Organization Address [facility] Co de Phone Number [facility] [place] [address] * POCT Glucose (10/16/2018 8:06 PM EDT) Glucose, POC 173 65 - 199 mg/dL [facility] Comment: Supplemental ranges: <140 mg/dL before meals <180 mg/dL all other times of the day Blood specimen (specimen) 10/16/2018 8:06 PM EDT 10/16/2018 8:06 PM EDT Nena Ace MD POINT OF CARE TEST O CAITERAANN Performing Organization Address [facility] Co de Phone Number [facility] [place] [address] * POCT Glucose (10/16/2018 5:52 PM EDT) Glucose, POC 149 65 - 199 mg/dL [facility] Comment: Supplemental ranges: <140 mg/dL before meals <180 mg/dL all other times of the day Blood specimen (specimen) 10/16/2018 5:52 PM EDT 10/16/2018 5:52 PM EDT Nena Ace MD POINT OF CARE TEST O CAITERAANN Performing Organization Address [facility] Co de Phone Number [facility] [place] [place] [address] * POCT Glucose (10/16/2018 4:18 PM EDT) Glucose, POC 114 65 - 199 mg/dL [facility] Comment: Supplemental ranges: <140 mg/dL before meals <180 mg/dL all other times of the day Blood specimen (specimen) 10/16/2018 4:18 PM EDT 10/16/2018 4:18 PM EDT Nena Ace MD POINT OF CARE TEST O RDERABLES Performing Organization Address [facility] Co de Phone Number [facility] [place] [address] * POCT Glucose (10/16/2018 11:43 AM EDT) Glucose, POC 123 65 - 199 mg/dL [facility] Comment: Supplemental ranges: <140 mg/dL before meals <180 mg/dL all other times of the day Blood specimen (specimen) 10/16/2018 11:43 AM EDT 10/16/2018 11:43 AM EDT Nena Ace MD POINT OF CARE TEST O RDERAANN Performing Organization Address [facility] de Phone Number [facility] [place] [address] * POCT Glucose (10/16/2018 8:07 AM EDT) Glucose, POC 134 65 - 199 mg/dL [facility] Comment: Supplemental ranges: <140 mg/dL before meals <180 mg/dL all other times of the day Blood specimen (specimen) 10/16/2018 8:07 AM EDT 10/16/2018 8:07 AM EDT Nena Ace MD POINT OF CARE TEST O RDERAANN Performing Organization Address [facility] Co de Phone Number [facility] [place] [address] * POCT Glucose (10/16/2018 3:21 AM EDT) Glucose, POC 104 65 - 199 mg/dL [facility] Comment: Supplemental ranges: <140 mg/dL before meals <180 mg/dL all other times of the day Blood specimen (specimen) 10/16/2018 3:21 AM EDT 10/16/2018 3:21 AM EDT Nena Ace MD POINT OF CARE TEST O RDERABLES Performing Organization Address [facility] Co de Phone Number [facility] [place] [address] * POCT Glucose (10/15/2018 11:33 PM EDT) Glucose, POC 155 65 - 199 mg/dL [facility] Comment: Supplemental ranges: <140 mg/dL before meals <180 mg/dL all other times of the day Blood specimen (specimen) 10/15/2018 11:33 PM EDT 10/15/2018 11:33 PM EDT Nena Ace MD POINT OF CARE TEST O RDERABLES Performing Organization Address [facility] Co de Phone Number [facility] [place] [address] * POCT Glucose (10/15/2018 7:16 PM EDT) Glucose, POC 118 65 - 199 mg/dL [facility] Comment: Supplemental ranges: <140 mg/dL before meals <180 mg/dL all other times of the day Blood specimen (specimen) 10/15/2018 7:16 PM EDT 10/15/2018 7:16 PM EDT Nena Ace MD POINT OF CARE TEST O RDERABLES Performing Organization Address [facility] Co de Phone Number [facility] [place] [address] * POCT Glucose (10/15/2018 4:06 PM EDT) Glucose, POC 104 65 - 199 mg/dL [facility] Comment: Supplemental ranges: <140 mg/dL before meals <180 mg/dL all other times of the day Blood specimen (specimen) 10/15/2018 4:06 PM EDT 10/15/2018 4:06 PM EDT Nena Ace MD POINT OF CARE [place] [address] * (ABNORMAL) Differential, Automated (10/15/2018 3:34 PM EDT) Neutrophil % 69.5 % [facility] Neutrophil Absolute 6.68(H) 1.70 - 6.10 x10(3)/mc L [facility] Lymph % 17.5 % [facility] Lymphocytes Abs 1.7 0.9 - 3.2 x10(3)/ L [facility] Monocyte % 11.6 % [facility] Monocyte Abs 1.1(H) 0.3 - 0.9 x10(3)/ L [facility] Eos % 1.0 % [facility] Eosinophils Abs 0.1 0.0 - 0.4 x10(3)/[facility] Basophil % 0.1 % [facility] Baso Absolute 0.0 0.0 - 0.1 x10(3)/ L [facility] Immature Gran % 0.30 % [facility] Comment: Immature granulocytes(IG's)percentage and absolute count will include metamyelocytes, myelocytes, and promyelocytes. Blood smears from CBCs yielding IG's will be scanned manually for concordance. If this scan disagrees with the automated IG or if promyelocytes are noted, a manual differential will be performed. Immature Gran Absolute 0.03 0.00 - 0.04 x10(3)/ L [facility] Blood specimen (specimen) 10/15/2018 3:34 PM EDT 10/15/2018 3:45 PM EDT Narrative Resulting Agency Comment Spec In Lab Dariela Tom MD HEMATOLOGY ORDERABLE S Performing Organization Address City/[facility]/ZIP Co de Phone Number [facility] [place] [address] * (ABNORMAL) Hemogram (10/15/2018 3:34 PM EDT) [facility] White Blood Cell 9.6(H) 4.0 - 9.5 x10(3)/[facility] Red Blood Cell 3.33(L) 4.00 - 5.21 x10(6)/[facility] Hemoglobin 10.7(L) 11.7 - 15.5 gm/dL [facility] Hematocrit 31.4(L) 35.7 - 45.8 % [facility] Mean Cell Volume 94.3 82.6 - 94.4 fL [facility] Mean Cell Hemoglobin 32.1(H) 27.1 - 32.0 pg [facility] Mean Cell Hemoglobin Concentration 34.1 31.7 - 35.0 gm/dL [facility] Platelet 237 145 - 357 x10(3)/[facility] RDW Standard Deviation 50.2(H) 37.0 - 46.0 [facility] RDW coefficient of variation 14.6(H) 11.5 - 14.1 % [facility] Mean Platelet Volume 10.2 7.6 - 12.9 fL [facility] NRBC% auto 0.0 % [facility] NRBC Absolute 0.000 0.000 - 0.000 x10(3)/[facility] Blood specimen (specimen) 10/15/2018 3:34 PM EDT 10/15/2018 3:45 PM EDT Narrative Resulting Agency Comment Spec In Lab Dariela Tom MD HEMATOLOGY ORDERABLE S [facility] [place] [address] * (ABNORMAL) Basic Metabolic Panel (non-fasting) (10/15/2018 3:34 PM EDT) Glucose 110 65 - 199 mg/dL [facility] Comment:Diabetes: >=200 mg/d L plus symptoms Blood Urea Nitrogen 20(H) 8 - 18 mg/dL [facility] Creatinine 2.99(H) 0.70 - 1.20 mg/dL [facility] Sodium 143 135 - 145 mmol/L [facility] Potassium 3.6 3.5 - 5.0 mmol/L [facility] Comment: Please note: ??Patients with WBC >100,000 may have falsely elevated Potassium levels. ??For accurate Potassium quantification in these patients send serum separator tube (gold top) for subsequent determinations. ??Contact the Clinical Chemistry Laboratory if there are any questions. Chloride 107 98 - 107 mmol/L [facility] Carbon Dioxide 22 22 - 31 mmol/L [facility] Anion Gap 14 5 - 15 mmol/L [facility] Calcium 8.0(L) 8.5 - 10.5 mg/dL [facility] Est Glomerular Filtration Rate 18(L) >=60 mL/min/1. 73 m?? [facility] Comment: The eGFR was calculated using the CKD-EPI equation. As with all creatinine based estimates of kidney function, eGFR values calculated with the CKD-EPI equation are not accurate in patients with acute kidney failure, extremes of body mass or the acutely ill. http://[facility] eGFR 20(L) >=60 mL/min/1. 73 m?? [facility] Comment: The eGFR was calculated using the CKD-EPI equation. As with all creatinine based estimates of kidney function, eGFR values calculated with the CKD-EPI equation are not accurate in patients with acute kidney failure, extremes of body mass or the acutely ill. [email or web address]/[facility] Blood specimen (specimen) 10/15/2018 3:34 PM EDT 10/15/2018 3:45 PM EDT Narrative Resulting Agency Comment Spec In Lab Nena Ace MD CHEMISTRY ORDERABLES [facility] [place] [address] * Urinalysis with reflex Culture (10/15/2018 3:27 PM EDT) Glucose, Urine Dipstick Negative Negative mg/dL [facility] Protein, Urine Dipstick Negative Negative mg/dL [facility] Bilirubin, Urine Dipstick Negative Negative mg/dL [facility] Comment: Clinical correlation required for positive Urine Bilirubin results as false positive may occur with some drugs and drug related products. If a false positive is suspected a serum total bilirubin should be considered if clinically indicated. Urobilinogen, Urine Dipstick Normal Normal mg/dL [facility] pH, Urn (dipstick) 5.0 5.0 - 8.0 [facility] Blood, Urine Dipstick Negative Negative mg/dL [facility] Ketone, Urine Dipstick Negative Negative mg/dL [facility] Nitrite, Urine Dipstick Negative Negative [facility] Leukocytes, Urine Dipstick Negative Negative [facility] Appearance, Urine Dipstick Clear Clear [facility] Specific [place] Urine Automated 1.013 1.002 - 1.030 [facility] Color, Urine Dipstick Yellow Yellow [facility] Reflex to Culture No [facility] Urine specimen obtained by clean catch procedure (specimen) 10/15/2018 3:27 PM EDT 10/15/2018 3:48 PM EDT Narrative Resulting Agency Comment Spec In Lab Nena Ace MD URINE ORDERABLES Performing Organization Address [facility] Co de Phone Number [facility] [place] [address] documented in this encounter Visit Diagnoses Not on filedocumented in this encounter Admitting Diagnoses Diagnosis Bilateral [...] Given 10/16/2018 11:04 AM EDT 1,000 mg albuterol (PROVENTIL) nebulizer solution 2.5 mg [...] Given 10/15/2018 11:38 PM EDT 1 Units iohexol (OMNIPAQUE) 300 mg/mL solution ONCE PRN, Starting on Mon10/16/18 at 1658, Until Mon10/17/18 at 1209, Intra-Operative (Intra-Procedure), Routine Given 10/16/2018 4:58 PM EDT 50 mLs 19- Surgical Site montelukast (SINGULAIR) tablet 10 mg 10 mg, Oral, NIGHTLY, First dose on Mon10/15/18 at 2100, Until Discontinued, Routine Given 10/16/2018 8:47 PM EDT 10 mg Given 10/15/2018 9:49 PM EDT 10 mg ondansetron (ZOFRAN) injection 4-8 mg 4-8 [...] to take PO, may give IV., Routine pantoprazole (PROTONIX) tablet 40 mg 40 mg, [...] mg., Routine 2338 (Given - Provider: Yaneli Gómez RN) 0506 [...] 2148 (Given - Provider: Yaneli Gómez RN) 1634 ([facility] Hold - Provider: Admin Adt - Reason: Transfer to a Procedural area)190 ([facility] Unhold - Provider: Admin Adt)2046 (Given - Provider: Alisson Rivers RN) cephALEXin [...] Adt)2046 (Given - Provider: Alisson Rivers RN) 0841 (Given - Provider: Eligio Purcell RN) ciprofloxacin (CIPRO) 400 mg in dextrose 5% 200 mL (COMPLETED) 400 mg, Intravenous, COST ACCOUNTING ANALYST TO O.R., 1 dose, On Mon10/16/18 at [...] Pappas RN - Reason: Order parameters not met)163 ([facility] Hold - Provider: [...] 0842 (Given - Provider: Eligio Purcell, RADHA) rifAMPin (RIFADIN) capsule 300 mg 300 mg, [...] Provider: Admin Adt)2046 (Given - Provider: Alisson Rivers, RN) 0842 (Given - Provider: Eligio Purcell, RN) sodium chloride 0.9 % (flush) flush 5 mL 5 mL, Intravenous, 2 TIMES DAILY, First dose on Mon10/15/18 at 2100, Until Discontinued, Routine 2149 (Given - Provider: Yaneli Gómez, RN) 0913 (Given - Provider: Sarah Pappas RN)1634 ([facility] Hold - Provider: Admin Adt - Reason: Transfer to a Procedural area)190 ([facility] Unhold - Provider: Admin Adt)2049 (Given - Provider: Alisson Rivers, RN) 0900 (Due - Provider: Admin Adt) [...] not controlled with PO pain medication, Routine 190 (Given - Provider: Sarah Pappas RN) 0506 (Given - Provider: Yaneli Gómez RN)0912 (Given - Provider: Sarah Pappas RN)1115 (Given - Provider: Sarah Pappas RN)1603 (Given - Provider: Sarah Pappas RN)163 ([facility] [...] 1209, for discomfort with PIV insertion, Routine 163 ([facility] Hold - Provider: Admin [...] - Reason: Transfer to a Procedural area)190 ([facility] Unhold - Provider: Admin Adt) ondansetron (ZOFRAN) [...] Alternative - Provider: Sarah Pappas, RADHA) 1634 ([facility] Hold - [...] pain 4-6, 10mg for pain >7/10, Routine 025 (Given - Provider: Yaneli Góemz, RADHA) sodium chloride 0.9 % (flush) flush 5-20 mL 5-20 mL, Intravenous, EVERY 1 MIN PRN, Starting on Mon10/15/18 at 1518, Until Mon10/17/18 at 1209, flush, Flush pertains to all indwelling lines. Flush per protocol found in the job aid using the link provided on this medication record., Routine 163 ([facility] Hold [...] Intravenous, EVERY 8 HOURS PRN, Starting on 10/15/18 at 1518, Until Mon10/17/18 at 1209, Nausea, Start with 4mg and if ineffective in 30 minutes, give an additional 4mg If multiple antiemetics are ordered, give ondansetron first. documented in this encounter Care Teams Internet Marketer Relationship Specialty Start Date End Date Gissell Davis, KENYATTA [address] [place] [address] [address] [place] [address] PCP - General Family Medicine 08/21/18 11/12/21 documented as of this encounter
--- OUTSIDE RECORDS SUMMARY | 2023-10-05 02:25 | XMS_ITS | Encounter Summary ---
Author Organization Formerly [facility] Address [facility] [place] [address] Care Team Providers Care Shank Faker Name Role Phone Gissell Davis APRN Primary Care Provider Encounter Details Date Type Department Care Team (Latest Contact Info) Description 12/28/2018 7:38 AM EST - 12/28/2018 2:21 PM EST Hospital En[place] [id number] Nena Ace MD [facility] [place] [address] Discharge Disposition: Home Social History Tobacco Use [...] Sign Reading Time Taken Comments Blood Pressure 121/76 12/28/2018 1:45 PM EST Pulse 83 12/28/2018 1:18 PM EST Temperature 36.8 ??C (98.2 ??F) 12/28/2018 1:18 PM ES T Respiratory Rate 16 12/28/2018 9:08 AM EST Oxygen Saturation 95% 12/28/2018 1:45 PM EST Inhaled Oxygen Concentration - - Weight 86.2 kg (190 lb) 12/28/2018 9:08 AM EST Height 160 cm (5' 3) 12/28/2018 9:08 AM EST Body Mass Index 33.66 12/28/2018 9:08 AM EST documented in this encounter Discharge Instructions * Discharge Instructions* Ama Rowe RN - 12/28/2018 2:03 PM EST POST ANESTHESIA INSTRUCTIONS Go home, rest, use [...] away in 12-24 hours. * Patient Instructions* Gonzalo Goodrich MD - 12/28/2018 1:31 PM EST DISCHARGE INSTRUCTIONS CALL YOUR PHYSICIAN IF: ?? You have a fever greater than 101 degrees F within one month of your surgery. ?? You have diarrhea or vomiting for more than 24 hours, or stop having bowel movements or passing gas. ?? You have worsening pain, not controlled with your pain medication. ?? You are unable to urinate due to blood clots in your bladder. ?? You have any other acute change in your health status. MEDICATIONS For pain control: Take ibuprofen 600 mg every 8 hours as needed. Take acetaminophen (Tylenol) 500-1000 mg every 6 hours as needed. ?? You have been prescribed tamsulosin (Flomax), which may help to decrease the discomfort associated with the indwelling stent. Please take the medication as prescribed. ?? You have been prescribed pyridium for pain with urination. ?? You have been prescribed an antibiotic Bactrim, which you will take for the next 3 days. DRIVING RESTRICTIONS Do not operate a vehicle if you are too sore from surgery to enter or exit your vehicle comfortably, or if you are too sore to easily check your blind spot. ACTIVITIES No formal restrictions. Your activities may be determined by how well your tolerate the discomfort associated with your stent. Most patients experience some degree of discomfort, and this is normal. Symptoms include flank pain (increased during urination), frequency and urgency of urination, burning or pain in the bladderor urethra with urination, pelvic discomfort, and blood in the urine. To manage your stent symptoms, drink a minimum of 2 L of fluids daily and take acetaminophen or ibuprofen. DIET You may resume a regular diet. COMFORT Some patients experience irritation or discomfort associated with the stent. Take your medication as needed and prescribed. Slowly decrease your use of pain medication as pain lessens. CONTACT INFORMATION To contact your provider or change your appointment, please call the Urology clinic at during business hours or during off-hours. FOLLOW-UP APPOINTMENT You will return in 1 week for ureteral stent removal. We will send you the date and time. Please remember that you have a ureteral stent in place. A stent is not a permanent device and mustbe removed as instructed by your urologist; failure to remove a stent may result in [...] for 3 days. 6 tablet 12/28/2018 12/31/2018 documented as of this encounter Progress Notes * Ama Rowe RN - 12/28/2018 2:17 PM EST Discharge instructions reviewed with pt and with and both stated understanding info taught documented in this encounter H&P Notes * Nena Ace MD - 12/27/2018 2:18 PM EST Urology PreOp H&P Barbara Chapman 48 y.o. female who presents for second stage ureteroscopy to address her right-sided renal stone and remove her left ureteral stent. No changes to medications, no fevers, chills, headaches, chest pain, new cough, nausea, emesis, constipation, diarrhea, difficulty urinating, one sided numbness or tingling sensation. Denies recent hospitalization. Mixed UCx treated with bactrim. No past medical history on file. Past Surgical History: Procedure Laterality Date ??? PRO CYSTO/URETERO/PYELOSCOPY W/LITHOTRIPSY Left 11/16/2018 CYSTOURETEROSCOPY, LITHOTRIPSY (WRVU 7.5) performed by Nena Ace MD at [facility] MAIN OR ??? PRO CYSTO/URETERO/PYELOSCOPY, CALCULUS TX Bilateral 11/16/2018 CYSTOURETHROSCOPY WITH UTETEROSCOPY, W\REMOVAL, MANIPULATION OF CALCULUS (WRVU 6.75) performed by Nena Ace MD at [facility] MAIN OR ??? PRO CYSTOSCOPY, INSERT URETERAL STENT Bilateral 10/16/2018 CYSTO, STENT PLACEMENT (WRVU 2.82) performed by Agustin Crespo MD at [facility] OR ??? PRO CYSTOSCOPY, INSERT URETERAL STENT Bilateral 11/16/2018 CYSTO, STENT PLACEMENT (WRVU 2.82) performed by Nena Ace MD at [facility] OR ??? PRO CYSTOURETHROSCOPY, URETER CATHETER Bilateral 10/16/2018 CYSTO, RETROGRADE, URETEROPYELOGRAPHY (WRVU 2.37) performed by Agustin Crespo MD at [facility] MAIN OR No current facility-administered medications on file prior to encounter. Current Outpatient Medications on File Prior to Encounter Medication Sig Dispense Refill ??? tamsulosin (FLOMAX) 0.4 mg Capsule Take 1 capsule by mouth daily. 60 tablet 2 ??? cephALEXin (KEFLEX) 250 mg Capsule Take 1 capsule by mouth 3 times daily. ??? acetaminophen (TYLENOL) 500 mg Tablet Take 2 tablets by mouth every 6 hours as needed for Pain.Do not exceed 4000 mg per 24 hours. 30 tablet 1 ??? FLUoxetine (PROZAC) 40 mg Capsule Daily. ??? rifAMPin (RIFADIN) 300 mg Capsule Every 12 hours. ??? gabapentin (NEURONTIN) 300 mg Capsule Every 8 hours. ??? metFORMIN (GLUCOPHAGE) 1,000 mg Tablet Every 12 hours. ??? Magnesium Oxide 500 mg Tablet TAKE ONE TABLET BY MOUTH EVERY DAY 3 ??? HYDROmorphone (DILAUDID) 2 mg tablet Take by mouth daily. Takes 1-2 tablets daily ??? montelukast (SINGULAIR) 10 mg tablet ??? cetirizine (ZYRTEC) 10 mg tablet ??? LEVALBUTEROL HCL (XOPENEX INHL) ??? FLUTICASONE/SALMETEROL (ADVAIR HFA INHL) ??? sucralfate (CARAFATE) 1 gram tablet ??? FLUoxetine (PROZAC) 20 mg capsule ??? amitriptyline (ELAVIL) 25 mg tablet ??? trimethobenzamide (TIGAN) 300 mg capsule 300 MG = 1 Capsule(s), PO, Three times daily ??? albuterol (PROVENTIL) 2.5 mg /3 mL (0.083 %) nebulizer solution Take 2.5 mg by nebulization nightly. ??? traMADol (ULTRAM) 50 mg tablet Take 50 mg by mouth daily. 1-2 tablets daily ??? OXYcodone-acetaminophen (PERCOCET) 5-325 mg per tablet Take 1 tablet by mouth daily as needed. ??? PROPRANOLOL HCL (PROPRANOLOL ORAL) (Patient not taking: No sig reported) Allergies Allergen Reactions ??? Latex ??? Codeine Phosphate ??? Erythromycin Base ??? Gloves, Latex ??? Latex Dams There were no vitals filed for this visit. Exam: General: Alert and oriented x4 Heart: RRR Lungs: No audible wheezing Abdomen: Soft, non-tender/distended Extremities: Warm, no edema Assessment/Plan Proceed with scheduled procedure Procedure(s): CYSTOURETEROSCOPY, LITHOTRIPSY (WRVU 7.5) MODIFIER HOLMIUM LASER, stent removal / stent exchange documented in this encounter Miscellaneous Notes * Op Note - Nena Ace MD - 12/28/2018 1:53 PM EST Operative Note ?? Patient Name: Barbara Chapman : [id number] MR#: [id number] ?? Case Date: 12/28/2018 ?? Surgeon: Surgeon(s) and Role: * Nena Ace MD - Primary * Gonzalo Goodrich MD - Resident ?? Preoperative diagnosis: STONE ?? Postoperative diagnosis: Right ureteral stone ?? Procedure(s): CYSTOURETEROSCOPY, LITHOTRIPSY (WRVU 7.5) MODIFIER HOLMIUM LASER ?? Anesthesia: General ?? Findings: Removal of existing left ureteral stent Removal of existing right ureteral stent Right URS w/ LL of impacted proximal ureteral stone and partial fragmentation of right renal stone;case aborted after 2.5 hours of ureteroscopytime Retrograde pyelogram without filling defects Placement of 8Fr x 26cm JJ stent in Right UO ?? Complications: None ?? Estimated Blood Loss: 5cc ?? Specimens removed during surgery: Right ureteral stones ?? Fluids: Intraprocedure Crystalloid Total None ?? Fluids: ANES IntraOp Crystalloid (Filter: (AN Fluids) Medications Shown) ?? Medication Calculated Total ?? No medications were administered. ? Blood: none ?? Urine Output: (no urine output recorded) ?? Drains: 6Fr x 26cm JJ stent in Right UO ?? Disposition: awakened from anesthesia, extubated and taken to the recovery room in a stable condition, having suffered no apparent untoward event. ?? Condition: doing well without problems ?? (Please see the Surgical Encounter Summary for any Implant and Specimen details pertinent to this patient.) ?? Infection Bundle used? No ? ANES IntraOp Crystalloid (Filter: (AN Fluids) Medications Shown) ?? Medication Calculated Total ?? No medications were administered. ?? HPI: Barbara Chapman 48 y.o. female who presents for second stage ureteroscopy to address her right-sided renal stone and remove her left ureteral stent. Procedure Description: The patient was identified in [...] Fr rigid cystoscope was inserted into the bladder.Both existing ureteral stents were visualized. The stent grasper was used to grab the left ureteral stent. It was removed without complication under fluoroscopic guidance. Next we used the stent grasper to retrieve the right ureter stent. This was brought to the urethralmeatus. A glide wire was inserted through the stent and advanced up into the right renal pelvis as visualized on fluoroscopy. The stent was then removed. A semi-rigid ureteroscope was inserted. Rigid ureteroscopy was performed, and a stone was identified in the proximal right ureter. It was severely impacted. The 200 micron laser fiber was then inserted through the rigid scope. With settings of 6 Joules and 6 Hertz, the stone was fragmented into very small pieces. The rigid scope was then removed. A second glide wire was placed and we inserted a 11 x 13Fr ureteral access sheath on fluoroscopic guidance. We then inserted the flexible ureteroscopeand used the Jared basket to extract all of the ureteral stone fragments. After clearing the ureter, we advanced our flexible ureteroscope up into the right kidney. A large renal stone was found in the lower pole. We attempted to dust this stone using the settings of 2J and 6 Hertz. However, the stone was very hard and difficult to access due to an acute infundibular angle. After 2.5 total hours of ureteroscopy time, we decided to forego further treatment of the right renal stone; weighing the risks and benefits of prolonged URS time. The flexible ureteroscope and access sheath were then removed after the entire ureter was inspected and found to be free of stone. The cystoscope was loaded onto the guide wire using a Pollack catheter. The Pollack catheter was removed and a 8 Fr by 26 cm double-J stent was passed over the wire. The proximal coil was visualized on fluoroscopy to be within the renal pelvis, and the distal coil was seen with direct visualizationin the bladder. The bladder was emptied. The stone fragments were removed. The cystoscope was removed. The patient tolerated the procedure well and was awakened from anesthesia with no adverse events. The patient was taken to the recovery area in stable condition. Dr. Ace, the attending surgeon, was present for the entire procedure. Attestation: Case Date: 12/28/2018 I was present and I participated during the entire procedure (does not need to include opening and closing). Nena Ace MD 12/28/2018 * Brief Op Note - Gonzalo Goodrich MD - 12/28/2018 1:24 PM EST Brief Operative Note Patient Name: Barbara Chapman : [id number] MR#: [id number] Case Date: 12/28/2018 Surgeon: Surgeon(s) and Role: * Nena Ace MD - Primary * Gonzalo Goodrich MD - Resident Preoperative diagnosis: STONE Postoperative diagnosis: Right ureteral stone Procedure(s): CYSTOURETEROSCOPY, LITHOTRIPSY (WRVU 7.5) MODIFIER HOLMIUM LASER Anesthesia: General Findings: Removal of existing left ureteral stent Removal of existing right ureteral stent Right URS w/ LL of impacted proximal ureteral stone and partial fragmentation of right renal stone;case aborted after 2.5 hours of anesthesia time Retrograde pyelogram without filling defects Placement of 8Fr x 26cm JJ stent in Right UO Complications: None Estimated Blood Loss: 5 Specimens removed during surgery: * No orders in the log * Fluids: Intraprocedure Crystalloid Total None Fluids: ANES IntraOp Crystalloid (Filter: (AN Fluids) Medications Shown) Medication Calculated Total No medications were administered. Blood: none Urine Output: (no urine output recorded) Drains: 6Fr x 26cm JJ stent in Right UO Disposition: awakened from anesthesia, extubated and taken to the recovery room in a stable condition, having suffered no apparent untoward event. Condition: doing well without problems (Please see the Surgical Encounter Summary for any Implant and Specimen details pertinent to this patient.) Infection Bundle used? No ANES IntraOp Crystalloid (Filter: (AN Fluids) Medications Shown) Medication Calculated Total No medications were administered. Associated attestation - Nena Ace MD - 12/28/2018 3:27 PM EST Attestation: Case Date: 12/28/2018 I was present and I participated during the entire procedure (does not need to include opening and closing). Nena Ace MD 12/28/2018 documented in this encounter Plan of Treatment Not on file documented as of this encounter Procedures Procedure Name Priority Date/Time Associated Diagnosis Comments IMPLANTABLE DEVICES SCAN 12/31/2018 12:00 AM EST POCT GLUCOSE Routine 12/28/2018 1:29 PM EST XR FLUORO NO RAD <1HR - OR USE Routine 12/28/2018 1:14 PM EST HC URINE CULTURE Routine 12/28/2018 11:3 2 AM EST HC [facility] ANALYSIS Routine 12/28/2018 11:21 AM EST HC URINE CULTURE Routine 12/28/2018 11:2 1 AM EST MODIFIER HOLMIUM LASER 12/28/2018 10:45 AM EST STONE Cysto/Uretero/Pyelos copy W/Lithotripsy (98193) 12/28/2018 10:45 AM EST STONE POCT GLUCOSE Routine 12/28/2018 9:40 AM EST documented in this encounter Results * SCAN DOC: IMPLANTABLE DEVICES (12/31/2018 12:00 AM EST) Narrative 12/31/2018 12:00 AM EST Ordered by an unspecified provider. Scanning Provider MEDIA MGR SCAN EXT O RDR/RSLT * POCT Glucose (12/28/2018 1:29 PM EST) Glucose, POC 141 65 - 199 mg/dL [facility] Comment: Supplemental ranges: <140 mg/dL before meals <180 mg/dL all other times of the day Blood specimen (specimen) 12/28/2018 1:29 PM EST 12/28/2018 1:29 PM EST Nena Ace MD POINT OF CARE TEST O RDERABLES Performing Organization Address [facility] de Phone Number [facility] [place] [address] * XR Fluoro No Rad <1Hr - OR Use (12/28/2018 1:14 PM EST) Narrative RAD - 12/28/2018 1:14 PM EST This exam is auto-finalizing. No interpretation was done. Nena Ace MD IMG FLUORO ORDERABLE S Performing Organization Address [facility] de Phone Number [place], [place] * Urine culture Urine (12/28/2018 11:32 AM EST) Urine Culture No growth (Less than 100 cfu/ml). [facility] Urine specimen (specimen) 12/28/2018 11:32 AM EST 12/28/2018 12:14 PM EST Comment:RIGHT RENAL PELVIC U RINE CULTURE Narrative Resulting Agency Comment Spec In Lab Nena Ace MD MICROBIOLOGY - GENER AL ORDERABLES Performing Organization Address [facility] de Phone Number [facility] [place] [address] * Kidney Stone Analysis (12/28/2018 11:21 AM EST) Kidney Stone Analysis (MAY) Test ?Result ? Flag ??Unit ??RefValue Kidney Stone Analysis ??Source: ? Right Ureter ??Interpretation ?SEE COMMENTS ?90% Calcium oxalate monohydrate ?10% Calcium oxalate dihydrate ?Test Performed by: ?[facility] ?[address] [place] [address] ?Licensed Nursing Assistant: Mario River M.D. Ph.D.; CLIA# [id number] [facility] Calculus specimen (specimen) 12/28/2018 11:21 AM EST 12/28/2018 1:36 PM EST Narrative Resulting Agency Comment Spec In Lab Nena Ace MD LAB SEND OUT ORDERAB LES Performing Organization Address [facility] Co de Phone Number [facility] [place] [address] * Urine culture Cystoscopic Urine (12/28/2018 11:21 AM EST) Pathologist [facility] Urine Culture No growth (Less than 100 cfu/ml). [facility] Urine specimen (specimen) 12/28/2018 11:21 AM EST 12/28/2018 1:58 PM EST Comment:BLADDER URINE Narrative Resulting Agency Comment Spec In Lab Nena Ace MD MICROBIOLOGY - GENER AL ORDERABLES Performing Organization Address [facility] Co de Phone Number [facility] [place] [address] * POCT Glucose (12/28/2018 9:40 AM EST) Glucose, POC 126 65 - 199 mg/dL [facility] Comment: Supplemental ranges: <140 mg/dL before meals <180 mg/dL all other times of the day Blood specimen (specimen) 12/28/2018 9:40 AM EST 12/28/2018 9:40 AM EST Nena Ace MD POINT OF CARE TEST O RDERABLES [facility] [place] [address] documented in this encounter Visit Diagnoses Not on filedocumented in this encounter Administered Medications Inactive Administered Medications - up to 3 most recent administrations Medication Order MAR Action Action Date Dose Rate Site acetaminophen (TYLENOL) tablet 1,000 mg 1,000 mg, Oral, ONCE, 1 dose, On Mon12/28/18 at 0930, Administer with SIP of H2O only., Day of Surgery (Day of Procedure), Routine Given 12/28/2018 9:30 AM EST 1,000 mg fentaNYL (PF) 50mcg/mL injection 12.5-25 mcg, Intravenous, EVERY 5 MIN PRN, Starting on Mon12/28/18 at 1420, Until Mon12/28/18 at 1621, Pain, Give 12.5 mcg every 5 minutes PRN for mild to moderate pain (1-5) Give 25 mcg every 5 minutes PRN for moderate to severe pain (6-10). Hold for respiratory rate less than 10 per minute. Maximum dose 250 mcg over one hour. If ordered with hydromorphone or morphine, give hydromorphone or morphine first and use fentanyl for breakthrough pain., PACU Recovery, Routine lactated ringers infusion 1,000 mL, at 100 mL/hr, Intravenous, CONTINUOUS, Starting on Mon12/28/18 at 0930, Until Mon12/28/18 at 1621, Day of Surgery (Day of Procedure) lidocaine (XYLOCAINE) 10 mg/mL (1 %) injection 3 mg 3 mg (0.3 mL), Subcutaneous, ONCE PRN, 1 dose, Starting on Mon12/28/18 at 0903, Until Mon12/28/18 at 1621, for discomfort with PIV insertion, Day of Surgery (Day of Procedure), Routine naloxone (NARCAN) injection 0.04 mg 0.04 mg, Intravenous, EVERY 5 MIN PRN, Starting on Mon12/28/18 at 1420, Until Mon12/28/18 at 1621, Opioid Reversal, for respiratory rate less than 6 or unresponsive., May repeat every 5 minutes to increase respiratory rate. DO NOT exceed 0.12 mg total dose. Notify anesthesia immediately if administered., PACU Recovery, Routine prochlorperazine (COMPAZINE) injection 5 mg 5 mg, Intravenous, EVERY 30 MIN PRN, 2 doses, Starting on Mon12/28/18 at 1420, Until Mon12/28/18 at 1621, Nausea, May repeat 5 mg once in 30 minutes. If multiple antiemetics ordered, use ondansetron first and if ineffective use prochlorperazine second and if ineffective use promethazine, PACU Recovery, Routine promethazine (PHENERGAN) injection 12.5 mg 12.5 mg, Intravenous, EVERY 30 MIN PRN, Nausea, Starting on Mon12/28/18 at 1420, 2 doses, Until Mon12/28/18 at 1621, VESICANT - Dilute with a minimum of [...] promethazine., PACU Recovery scopolamine (TRANSDERM-SCOP) 1 mg patch Patch Verification Transdermal, 2 TIMES DAILY, First dose on Mon12/28/18 at 0930, Until Discontinued, Verify scopolamine 1.5 mg patch., Recovery (Recovery-Hospital Unit) sodium chloride 0.9 % (flush) flush 5-20 mL 5-20 mL, Intravenous, EVERY 1 MIN PRN, Starting on Mon12/28/18 at 0903, Until Mon12/28/18 at 1621, flush, Flush pertains to all indwelling lines. Flush per protocol found in the job aid using the link provided on this medication record., Day of Surgery (Day of Procedure), Routine documented in this encounter Active and Recently Administered Medications Times are shown in EST. Scheduled Medication Order 12/26/2018 12/27/2018 12/28/2018 acetaminophen (TYLENOL) tablet 1,000 mg (COMPLETED) 1,000 mg, Oral, ONCE, 1 dose, On Mon12/28/18 at 0930, Administer with SIP of H2O only., Day of Surgery (Day of Procedure), Routine 09 (Given - Provid er: Becky Nunez RN) cefTRIAXone (ROCEPHIN) 2 g vial attach to sodium chloride 0.9% 50 mL Mini-Bag Plus (COMPLETED) 2 g, Intravenous, [employer]GER TO O.R., 1 dose, On Mon12/28/18 at 0930, Administer over 30 Minutes, Day of Surgery (Day of Procedure), Indication for (Active or Suspected): Prophylaxis 1057 (Given - Provid er: Poonam Day) scopolamine (TRANSDERM-SCOP) 1 mg over 3 days patch 1 patch 1 patch, Transdermal, ONCE, 1 dose, On Mon12/28/18 at 0930, Day of Surgery (Day of Procedure), Routine 929 (Due) scopolamine (TRANSDERM-SCOP) 1 mg patch Patch Removal Transdermal, EVERY 24 HOURS, 1 dose, First dose on Mon12/28/18 at 0930, Remove scopolamine 1.5 mg patch, Recovery (Recovery-Hospital Unit) 0930 (Due)0949 ([facility] h Not Removed (add comment) - Provider: Becky Nunez RN - Comment: entered in error) scopolamine (TRANSDERM-SCOP) 1 mg patch Patch Verification Transdermal, 2 TIMES DAILY, First dose on Mon12/28/18 at 0930, Until Discontinued, Verify scopolamine 1.5 mg patch., Recovery (Recovery-Hospital Unit) 0930 (Patch (dose an d location) verified - Provider: Becky Nunez RN - Comment: placed behind left ear) Continuous Medication Order 12/26/2018 12/27/2018 12/28/2018 lactated ringers infusion 1,000 mL, at 100 mL/hr, Intravenous, CONTINUOUS, Starting on Mon12/28/18 at 0930, Until Mon12/28/18 at 1621, Day of Surgery (Day of Procedure) 0930 (Due) PRN Medication Order 12/26/2018 12/27/2018 12/28/2018 fentaNYL (PF) 50mcg/mL injection 12.5-25 mcg, Intravenous, EVERY 5 MIN PRN, Starting on Mon12/28/18 at 1420, Until Mon12/28/18 at 1621, Pain, Give 12.5 mcg every 5 minutes [...] mg/mL solution (CANCELED) ONCE PRN, Starting on Mon12/28/18 at 1321, Until Mon12/28/18 at 1621, Intra-Operative (Intra-Procedure), Routine 1321 (Given - Provid er: Nena Ace MD) lidocaine (XYLOCAINE) 10 mg/mL (1 %) injection 3 mg 3 mg (0.3 mL), Subcutaneous, ONCE PRN, 1 dose, Starting on Mon12/28/18 at 0903, Until Mon12/28/18 at 1621, for discomfort with PIV insertion, Day of Surgery (Day of Procedure), Routine naloxone (NARCAN) injection 0.04 mg 0.04 mg, Intravenous, EVERY 5 MIN PRN, Starting on Mon12/28/18 at 1420, Until Mon12/28/18 at 1621, Opioid Reversal, for respiratory rate less than 6 or unresponsive., May repeat every 5 minutes to increase respiratory rate. DO NOT exceed 0.12 mg total dose. Notify anesthesia immediately if administered., PACU Recovery, Routine prochlorperazine (COMPAZINE) injection 5 mg 5 mg, Intravenous, EVERY 30 MIN PRN, 2 doses, Starting on Mon12/28/18 at 1420, Until Mon12/28/18 at 1621, Nausea, May repeat 5 mg once in 30 minutes. If multiple antiemetics ordered, use ondansetron first and if ineffective use prochlorperazine second and if ineffective use promethazine, PACU Recovery, Routine promethazine (PHENERGAN) injection 12.5 mg 12.5 mg, Intravenous, EVERY 30 MIN PRN, Nausea, Starting on Mon12/28/18 at 1420, 2 doses, Until Mon12/28/18 at 1621, VESICANT - Dilute with a minimum of [...] Intravenous, EVERY 1 MIN PRN, Starting on Mon12/28/18 at 0903, Until Mon12/28/18 at 1621, flush, Flush pertains to all indwelling lines. Flush per protocol found in the job aid using the link provided on this medication record., Day of Surgery (Day of Procedure), Routine documented in this encounter Care Teams Shank Faker Relationship Specialty Start Date End Date Gissell Davis APRN [address] [place] [address] PCP - General Family Medicine 08/21/18 11/12/21 documented as of this encounter
--- OUTSIDE RECORDS SUMMARY | 2023-10-05 02:25 | XMS_ITS | Encounter Summary ---
Author Organization [facility] Address [facility] [place] [address] Care Team Providers Care Astrobiologist Name Role Phone Gissell Davis APRN Primary Care Provider Encounter Details Date Type Department Care Team (Late st Contact Info) Description 12/28/2018 10:45 AM EST Anesthesia Event [place] [address] Gaudencio Caraballo MD [facility] [place] [address] Poonam Day MD [facility] [place] [address] Anesthesia Record Procedure Summary Procedure Name Responsible Anesthesiologist Anesthesia Start Time Anesthesia Stop Time CYSTOURETEROSCOPY, LITHOTRIPSY (WRVU 7.5) (Bilateral: Ureter) Gaudencio Caraballo MD 12/28/18 1045 12/28/18 1322 Events Date Time Event Comment 12/28/2018 1016 1045 AN Verify 1045 Start 1045 An Start Data 1053 An Induction 1054 An Intubation 1057 Anesthesia Ready 1113 Procedure Start 1313 Extubation/LMA Out 1314 an stop data 1322 Recovery or ICU Handoff Tamara ent care was transferred to the destination unit staff after review of the patient's medical history, current anesthetic/surgical status and plan, according to the Provider Handoff Checklist. 1322 Stop Meds Name Total Midazolam 2 mg fentaNYL 100 mcg IV Lidocaine 100 mg Propofol 150 mg Rocuronium 70 mg PHENYLephrine 80 mcg Ondansetron 4 mg Dexamethasone 4 mg Neostigmine 4 mg Glycopyrrolate 0.6 mg cefTRIAXone (ROCEPHIN) 2 g v ial attach to sodium chloride 0.9% 50 mL Mini-Bag Plus 2 g Succinylcholine 100 mg Propofol INF 1,077.5 mg Lactated Ringers 550 mL * Agents Name O2 Air N2O Sevoflurane (et) * Blood No blood administrations on file. Lines, Drains, and Airways Type Details Placement Removal Ureteral Catheter 12/28/18; 1303; righ t ureter; drainage bag to dependent drainage; 8fr x 26cm Contour stent 12/28/18 1303 by Lindsey Lo, RADHA Ureteral Catheter left ureter, right ureter; ureteral catheter removed, catheter intact; LDA not present upon assessment; 12/28/18; 1114 12/28/18 1138 by 12/28/18 1114 by Lindsey Lo, RADHA Incision 10/16/18; 1703; uret hral meatus; other (see comments); cysto bilateral stent placement; 10/18/21 (LDA cleanup utility RA#[id number]); 1715 (LDA cleanup utility RA#[id number]) 10/16/18 1703 by Erika Licona RN 10/18/21 1715 by Lian Márquez (RETIRED) Peripheral IV Line - Single Lumen 12/28/18; 0939; [id number] catheter system; 20 gauge, 1 in length; derick; distraction, appears comfortable; 0; no longer indicated, catheter/device intact, site care per policy/procedure, removed per policy/procedure; 12/28/18; 1400 12/28/18 0939 by Becky Nunez, RN 12/28/18 1400 by Ama Rowe, RN ETT Mask Ventilation: Ea sy (1); ETT Type: Cuffed; ETT Size: 7 mm; Mac Blade: 3; Notes: Asleep, Pre-O2, Stylette, Cricoid Pressure; Attempts: 1; Laryngoscopy Grade: 3; ETT Placement Verified By: Auscultation, Capnometry, Visual; Inserted by: stone; Removal Date: 12/28/18; Removal Time: 1313 12/28/18 1059 by Poonam Day MD 12/28/18 1313 by Poonam Day MD documented in this encounter Social History Tobacco [...] OR Notes * Anesthesia Postprocedure Evaluation - Poonam Day - 12/28/2018 3:37 PM EST Department of Anesthesiology Post-procedure Note Patient: Barbara Chapman Procedure Summary Date: 12/28/18 Room / Location: [facility] OR [facility] MAIN OR Anesthesia Start: 1045 Anesthesia Stop: 1322 Procedures: CYSTOURETEROSCOPY, LITHOTRIPSY (WRVU 7.5) (Bilateral Ureter) MODIFIER HOLMIUM LASER (N/A ) Diagnosis: (STONE) Surgeon: Nena Ace MD Responsible Provider: Gaudencio Caraballo MD Anesthesia Type: general ASA Status: 2 All Anesthesia Providers: Anesthesiologist: Gaudencio Caraballo MD Shop Blacksmith: Poonam Day MD Vitals Value Taken Time BP 121/76 12/28/2018 1:45 PM Temp Pulse Resp SpO2 96 % 12/28/2018 1:55 PM Pain Level Vitals shown include unvalidated device data. Patient Location: PACU/[facility] Level of Consciousness: Awake and Alert Pain Management: Satisfactory Analgesia PONV: None Cardiovascular Status: At Baseline Respiratory Status: At Baseline Postoperative Fluid Status: Possible Anesthetic Complications: NONE apparent at time of evaluation Final Primary Anesthesia Type: General (The anesthetic type performed was the same as planned.) Comments: * Anesthesia Preprocedure Evaluation - Gaudencio Caraballo MD - 12/27/2018 2:42 PM EST Pre-Anesthesia Evaluation for: Barbara Chapman a 48 y.o. female. Procedure(s): CYSTOURETEROSCOPY, LITHOTRIPSY (WRVU 7.5) MODIFIER HOLMIUM LASER Patient Active Problem List Diagnosis ??? Bilateral nephrolithiasis ??? Gastroesophageal reflux ??? Asthma ??? Anxiety ??? Depression ??? Infection of prosthetic left knee joint ??? Diabetes mellitus ??? Migraines No past medical history on file. Past Surgical History: Procedure Laterality Date ??? PRO CYSTO/URETERO/PYELOSCOPY W/LITHOTRIPSY Left 11/16/2018 CYSTOURETEROSCOPY, LITHOTRIPSY (WRVU 7.5) performed by Nena Ace MD at [facility] MAIN OR ??? PRO CYSTO/URETERO/PYELOSCOPY, CALCULUS TX Bilateral 11/16/2018 CYSTOURETHROSCOPY WITH UTETEROSCOPY, W\REMOVAL, MANIPULATION OF CALCULUS (WRVU 6.75) performed by Nena Ace MD at [facility] MAIN OR ??? PRO CYSTOSCOPY, INSERT URETERAL STENT Bilateral 10/16/2018 CYSTO, STENT PLACEMENT (WRVU 2.82) performed by Agustin Crespo MD at [facility] MAIN OR ??? PRO CYSTOSCOPY, INSERT URETERAL STENT Bilateral 11/16/2018 CYSTO, STENT PLACEMENT (WRVU 2.82) performed by Nena Ace MD at [facility] OR ??? PRO CYSTOURETHROSCOPY, URETER CATHETER Bilateral 10/16/2018 CYSTO, RETROGRADE, URETEROPYELOGRAPHY (WRVU 2.37) performed by Agustin Crespo MD at [facility] MAIN OR Social History Tobacco Use ??? Smoking status: Never Smoker ??? Smokeless tobacco: Never Used Substance Use Topics ??? Alcohol use: Never Frequency: Never Social History Substance and Sexual Activity Drug Use Never Allergies Allergen Reactions ??? Latex ??? Codeine [...] IV access: Peripheral line Anesthesia Plan: ASA 2 general, with a(n) intravenous induction 48 y.o., 86 kg female with nephrolithiasis presenting for cysto and lithotripsy. PMH significant for GERD, asthma on daily inhalers, depression, DM on metformin. Allergies to codeine, erithromycin, and latex. Anesthetic hx: PONV Airway hx: easy MV, mac 3 gr 3 Labs: Hgb 10.7, plt 237, K 3.3, Cr 1.95 Anesthetic Plan: GETA Scop patch c-mac in room given gr 3 v Attending addendum (MD Caraballo) I agree with above. GERD symptoms controlled today. FSBG 126. Region - Other Informed Consent: Anesthetic plan and risks discussed with patient. Plan discussed with resident. PAT Clinic Note documented in this encounter Plan of Treatment Not on file documented as of this encounter Visit Diagnoses Not on filedocumented in this encounter Administered Medications Inactive Administered Medications - up to 3 most recent administrations Medication Order MAR Action Action Date Dose Rate Site cefTRIAXone (ROCEPHIN) 2 g vial attach to sodium chloride 0.9% 50 mL Mini-Bag Plus 2 g, Intravenous, DRIED FRUIT WASHER TO O.R., 1 dose, On Mon12/28/18 at 0930, Administer over 30 Minutes, Day of Surgery (Day of Procedure), Indication for (Active or Suspected): Prophylaxis Given 12/28/2018 10:57 AM EST 2 g dexamethasone (DECADRON) injection PRN, Starting on Mon12/28/18 at 1057, Until Mon12/28/18 at 1322, Anesthesia Intra-op, Routine Given 12/28/2018 10:57 AM EST 4 mg fentaNYL 50 mcg/mL multi-dose injection PRN, Starting on Mon12/28/18 at 1053, Until Mon12/28/18 at 1322, Anesthesia Intra-op, Routine Given 12/28/2018 10:53 AM EST 100 mcg glycopyrrolate (ROBINUL) multi-dose injection PRN, Starting on Mon12/28/18 at 1302, Until Mon12/28/18 at 1322, Anesthesia Intra-op, Routine Given 12/28/2018 1:02 PM EST 0.6 mg lactated ringers infusion CONTINUOUS PRN, Starting on Mon12/28/18 at 1045, Until Mon12/28/18 at 1322, Anesthesia Intra-op New Bag 12/28/2018 10:45 AM EST lidocaine (PF) (XYLOCAINE) 100 mg/5 mL (2 %) injection PRN, Starting on Mon12/28/18 at 1053, Until Mon12/28/18 at 1322, Anesthesia Intra-op, Routine Given 12/28/2018 10:53 AM EST 100 mg midazolam (PF) (VERSED) multi-dose injection PRN, Starting on Mon12/28/18 at 1045, Until Mon12/28/18 at 1322, Anesthesia Intra-op, Routine Given 12/28/2018 10:45 AM EST 2 mg neostigmine (BLOXIVERZ) injection PRN, Starting on Mon12/28/18 at 1302, Until Mon12/28/18 at 1322, Anesthesia Intra-op, Routine Given 12/28/2018 1:02 PM EST 4 mg ondansetron (ZOFRAN) injection PRN, Starting on Mon12/28/18 at 1302, Until Mon12/28/18 at 1322, Anesthesia Intra-op, Routine Given 12/28/2018 1:02 PM EST 4 mg PHENYLephrine in NS (PF) (RADHA-SYNEPHRINE) 0.8 mg/10 mL (80 mcg/mL) multi-dose injection Syrg PRN, Starting on Mon12/28/18 at 1058, Until Mon12/28/18 at 1322, Anesthesia Intra-op, Routine Given 12/28/2018 10:58 AM EST 80 mcg propofol (DIPRIVAN) 10 mg/mL bolus injection (Anesthesia) PRN, Starting on Mon12/28/18 at 1053, Until Mon12/28/18 at 1322, Anesthesia Intra-op Given 12/28/2018 10:53 AM EST 150 mg propofol (DIPRIVAN) infusion CONTINUOUS PRN, Starting on Mon12/28/18 at 1057, Until Mon12/28/18 at 1322, Anesthesia Intra-op, Routine New Bag 12/28/2018 10:57 AM EST 100 mcg/kg/min 51.7 mL/hr rocuronium (ZEMURON) multi-dose injection PRN, Starting on Mon12/28/18 at 1105, Until Mon12/28/18 at 1322, Anesthesia Intra-op, Routine Given 12/28/2018 12:43 PM EST 20 mg Given 12/28/2018 11:59 AM EST 10 mg Given 12/28/2018 11:05 AM EST 40 mg succinylcholine chloride (Quelicin) injection PRN, Starting on Mon12/28/18 at 1053, Until Mon12/28/18 at 1322, Anesthesia Intra-op, Routine Given 12/28/2018 10:53 AM EST 100 mg documented in this encounter Care Teams Astrobiologist Relationship Specialty Start Date End Date Gissell Davis, TIRE RETREADER [address] [place] [address] PCP - General Family Medicine 08/21/18 11/12/21 documented as of this encounter
--- OUTSIDE RECORDS SUMMARY | 2023-10-05 02:25 | XMS_ITS | Encounter Summary ---
Author Organization [facility] [place] [address] Care Team Providers Care Commercial Management Accountant Name Role Phone Gissell Davis APRN Primary Care Provider Encounter Details Date Type Department Care Team (Late st Contact Info) Description 11/29/2018 [place] [phone] Esthela Ortiz Social History Tobacco Use Types Packs/Day Years [...] encounter Miscellaneous Notes * Telephone Encounter - Esthela Croft - 11/29/2018 10:50 AM EDT Pt called and is having knee surgery on 12/12. The doctor asked since she had a stent in if it was okay to cath her? She was told to call me, I have no idea. I have paged a resident to call her. She needs to know by today so she can call and let them know Thank you Esthela documented in this encounter Plan of Treatment Not on file documented as of this encounter Visit Diagnoses Not on filedocumented in this encounter Care Teams Commercial Management Accountant Relationship Specialty Start Date End Date Gissell Davis APRN [address] [place] [address] PCP - General Family Medicine 08/21/18 11/12/21 documented as of this encounter
--- OUTSIDE RECORDS SUMMARY | 2023-10-05 02:25 | XMS_ITS | Encounter Summary ---
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 Referral ID Status Reason Start Date Expiration Date Visits Re quested Visits Authorized [id number] 1 1 Encounter Details Date Type Department Care Team (Late st Contact Info) Description 10/16/2018 4:38 PM EDT Anesthesia [place] [phone] Kenneth Peterson MD [facility] [place] [address] León Trujillo MD [facility] [place] [address] Anesthesia Record Procedure Summary Procedure Name Responsible Anesthesiologist Anesthesia Start Time Anesthesia Stop Time CYSTO, STENT PLACEMENT (WRVU 2.82) (Bilateral: Ureter) Kenneth Peterson MD 10/16/18 1638 10/16/18 1746 Events Date Time Event Comment 10/16/2018 1613 1634 AN Verify 1638 Start 1638 An Start Data 1643 An Induction 1646 An Intubation 1648 Anesthesia Ready 1701 Procedure Start 1719 Procedure Stop 1722 Extubation/LMA Out 1726 an stop data 1746 Recovery or ICU Handoff Tamara ent care was transferred to the destination unit staff after review of the patient's medical history, current anesthetic/surgical status and plan, according to the Provider Handoff Checklist. 1746 Stop Meds Name Total Midazolam 2 mg fentaNYL 50 mcg IV Lidocaine 50 mg Propofol 170 mg Ondansetron 8 mg Dexamethasone 8 mg Succinylcholine 100 mg ciprofloxacin (CIPRO) 400 mg in dextrose 5% 200 mL 400 mg Lactated Ringers 0 mL * Agents Name O2 Air N2O Sevoflurane (et) * Blood No blood administrations on file. Lines, Drains, and Airways Type Details Placement Removal (RETIRED) Peripheral IV Line - Single Lumen 10/15/18; 1526; median cubital vein (antecubital fossa), left; 20 gauge; 10/17/18; 0912 10/15/18 1526 by Sarah Talley RN 10/17/18 0912 by Eligio Purcell RN ETT Mask Ventilation: Ea sy (1); ETT Type: Cuffed; ETT Size: 7 mm; Mac Blade: 3; Notes: Asleep, Pre-O2, RSI, Stylette; Attempts: 1; Laryngoscopy Grade: 3; ETT Placement Verified By: Auscultation, Capnometry; Secured at Teeth: 21 cm; Inserted by: Dr. Simpson; Removal Date: 10/16/18; Removal Time: 172110/16/18 1649 by Mario Simpson MD 10/16/18 1722 by Mario Simpson MD Incision 10/16/18; 1703; uret hral meatus; other (see comments); cysto bilateral stent placement; 10/18/21 (LDA cleanup utility RA#[id number]); 1715 (LDA cleanup utility RA#[id number]) 10/16/18 1703 by Erika Licona RN 10/18/21 1715 by Lian Márquez documented in this encounter Social History Tobacco [...] OR Notes * Anesthesia Postprocedure Evaluation - Mario Simpson - 10/16/2018 5:46 PM EDT Department of Anesthesiology Post-procedure Note Patient: Barbara Chapman Procedure Summary Date: 10/16/18 Room / Location: [facility] OR [facility] MAIN OR Anesthesia Start: 1638 Anesthesia Stop: 1746 Procedures: CYSTO, STENT PLACEMENT (WRVU 2.82) (Bilateral Ureter) CYSTO, RETROGRADE, URETEROPYELOGRAPHY (WRVU 2.37) (Bilateral Ureter) Diagnosis: (Bilateral nephrolithiasis) Surgeon: Agustin Crespo MD Responsible Provider: Kenneth Peterson MD Anesthesia Type: general ASA Status: 2 All Anesthesia Providers: Anesthesiologist: Kenneth Peterson MD Dry Cleaning Supervisor: Mario Simpson MD Vitals Value Taken Time BP Temp Pulse 76 10/16/2018 5:45 PM Resp SpO2 99 % 10/16/2018 5:45 PM Pain Level Vitals shown include unvalidated device data. Patient Location: PACU/[facility] Level of Consciousness: Awake and Alert Pain Management: Satisfactory Analgesia PONV: None Cardiovascular Status: At Baseline Respiratory Status: Supplemental O2 (NC or FM) Postoperative Fluid Status: Intravascular EUvolemia Possible Anesthetic Complications: NONE apparent at time of evaluation Final Primary Anesthesia Type: General (The anesthetic type performed was the same as planned.) Comments: * Anesthesia Preprocedure Evaluation - Gaudencio Caraballo MD - 10/16/2018 2:40 PM EDT Pre-Anesthesia Evaluation for: Barbara Chapman a 48 y.o. female. Procedure(s): CYSTO, STENT PLACEMENT (WRVU 2.82) Patient Active Problem List Diagnosis ??? Bilateral nephrolithiasis ??? Gastroesophageal reflux ??? Asthma ??? Anxiety ??? Depression ??? Infection of prosthetic left knee joint ??? Diabetes mellitus ??? Migraines No past medical history on file. No past surgical history on file. Social History Tobacco Use ??? Smoking status: Never Smoker ??? Smokeless tobacco: Never Used Substance Use Topics ??? Alcohol use: Not on file Social History Substance and Sexual Activity Drug Use Not on file Allergies Allergen Reactions ??? Latex ??? Codeine Phosphate ??? Erythromycin Base ??? Gloves, Latex ??? Latex Dams Medications: MAR and/or home medications have been reviewed. Physical Exam: Most Recent Vitals: 10/16/18 0810 BP: 113/64 Resp: 18 Temp: 36.8 ??C (98.3 ??F) SpO2: 96% Body mass index is 33.82 kg/m??. Height: 160 cm (5' 3) Weight: 86.6 kg (190 lb 14.7 oz) Airway Assessment: Mallampati: II TM distance: >3 FB Neck ROM: full Cardiovascular Assessment: cardiovascular exam normal Pulmonary Assessment: pulmonary exam normal Dental Assessment: Misc Assessment: IV access: Peripheral line Anesthesia Plan: ASA 2 general, with a(n) intravenous induction Preliminary Note (before seeing patient) 48 y.o., 86.6 kg, female, with bilateral nephrolithiasis presenting for CYSTO, STENT PLACEMENT (WRVU 2.82) (Bilateral Ureter) PMH significant for: GERD Asthma Anxiety Depression Migraines DM (on metformin) Left total knee replacement complicated by infection needing surgical wash-out. Anesthetic hx: No reported prior complications with anesthesia Airway hx: no records EKG: None on file ECHO: None on file Lab Results Component Value Date HGB 10.7 (L) 10/15/2018 PLATELET 237 10/15/2018 NA 143 10/15/2018 K 3.6 10/15/2018 CREATININE 2.99 (H) 10/15/2018 No results for input(s): ABORH in the last 7068 hours. Allergies: -- Latex -- Codeine Phosphate -- Erythromycin Base -- Gloves, Latex -- Latex Dams NPO Status: Appropriate Anesthetic Plan: GA with LMA/ETT Standard ASA monitoring Adequate IV access Mario Simpson MD CA-1 Pager #[phone] Paymaster Of Purses (MD Ilya RUIZ MPH) Agree with Dr Simpson's assessment. Will plan for ETT. Region - Other Informed Consent: Plan discussed with resident. PAT Clinic Note documented in this encounter Plan of Treatment Not on file documented as of this encounter Visit Diagnoses Not on filedocumented in this encounter Administered Medications Inactive Administered Medications - up to 3 most recent administrations Medication Order MAR Action Action Date Dose Rate Site ciprofloxacin (CIPRO) 400 mg in dextrose 5% 200 mL 400 mg, Intravenous, MEDICAL RECORDS RECEPTIONIST TO O.R., 1 dose, On Mon10/16/18 at 1345, Administer over 60 Minutes, Indication for (Active or Suspected): Prophylaxis, Restricted Antibiotic: Please indicate the most appropriate choice: Pre-approved Indication (State the indication in Comments field) Given 10/16/2018 4:48 PM EDT 400 mg dexamethasone (DECADRON) injection PRN, Starting on Mon10/16/18 at 1701, Until Mon10/16/18 at 1746, Anesthesia Intra-op, Routine Given 10/16/2018 5:01 PM EDT 8 mg fentaNYL 50 mcg/mL multi-dose injection PRN, Starting on Mon10/16/18 at 1643, Until Mon10/16/18 at 1746, Anesthesia Intra-op, Routine Given 10/16/2018 4:43 PM EDT 50 mcg lactated ringers infusion CONTINUOUS PRN, Starting on Mon10/16/18 at 1634, Until Mon10/16/18 at 1746, Anesthesia Intra-op New Bag 10/16/2018 4:34 PM EDT lidocaine (PF) (XYLOCAINE) 100 mg/5 mL (2 %) injection PRN, Starting on Mon10/16/18 at 1643, Until Mon10/16/18 at 1746, Anesthesia Intra-op, Routine Given 10/16/2018 4:43 PM EDT 50 mg midazolam (PF) (VERSED) multi-dose injection PRN, Starting on Mon10/16/18 at 1640, Until Mon10/16/18 at 1746, Anesthesia Intra-op, Routine Given 10/16/2018 4:40 PM EDT 2 mg ondansetron (ZOFRAN) injection PRN, Starting on Mon10/16/18 at 1715, Until Mon10/16/18 at 1746, Anesthesia Intra-op, Routine Given 10/16/2018 5:15 PM EDT 8 mg propofol (DIPRIVAN) 10 mg/mL bolus injection (Anesthesia) PRN, Starting on Mon10/16/18 at 1643, Until Mon10/16/18 at 1746, Anesthesia Intra-op Given 10/16/2018 4:43 PM EDT 170 mg succinylcholine chloride (Quelicin) injection PRN, Starting on Mon10/16/18 at 1643, Until Mon10/16/18 at 1746, Anesthesia Intra-op, Routine Given 10/16/2018 4:43 PM EDT 100 mg documented in this encounter Care Teams Flat Sheet Maker Relationship Specialty Start Date End Date Gissell Davis, CAR CONDITIONER [address] [place] [address] PCP - General Family Medicine 08/21/18 11/12/21 documented as of this encounter
--- OUTSIDE RECORDS SUMMARY | 2023-10-05 02:25 | XMS_ITS | Encounter Summary ---
Author Organization [facility] Address [facility] [place] [address] Care Team Providers Care Fitness Consultant Name Role Phone Gissell Davis APRN Primary Care Provider [phone] Encounter Details Date Type Department Care Team (Late st Contact Info) Description 01/24/2019 8:33 AM EST Anesthesia Event [place] [address] Ken Canseco MD [facility] [place] [address] Lu Lopez CRNA [facility] [place] [address] Anesthesia Record Procedure Summary Procedure Name Responsible Anesthesiologist Anesthesia Start Time Anesthesia Stop Time CYSTO, STENT PLACEMENT (WRVU 2.82) (Ureter) Ken Canseco MD 01/24/19 0833 01/24/19 1019 Events Date Time Event Comment 01/24/2019 0826 0833 Start 0834 AN Verify 0835 An Start Data 0838 An Induction 0842 An Intubation 0842 Anesthesia Ready 1012 Extubation/LMA Out 1012 an stop data 1019 Recovery or ICU Handoff Tamara ent care was transferred to the destination unit staff after review of the patient's medical history, current anesthetic/surgical status and plan, according to the Provider Handoff Checklist. 1019 Stop Meds Name Total Midazolam 2 mg fentaNYL 100 mcg Propofol 300 mg ePHEDrine 10 mg Ondansetron 8 mg Dexamethasone 8 mg Propofol INF 334.96 mg cefTRIAXone (ROCEPHIN) 2 g v ial attach to sodium chloride 0.9% 50 mL Mini-Bag Plus 2 g Ketorolac 15 mg Albuterol Inhaler 6 puff lactated ringers infusion 1,000 mL * Agents Name O2 Air N2O Sevoflurane (et) Desflurane (et) Isoflurane (et) * Blood No blood administrations on file. Lines, Drains, and Airways Type Details Placement Removal Ureteral Catheter 12/28/18; 1303; righ t ureter; drainage bag to dependent drainage; 8fr x 26cm Contour stent 12/28/18 1303 by Lindsey Lo RN Incision 10/16/18; 1703; urethral meatus; other (see comments); cysto bilateral stent placement; 10/18/21 (LDA cleanup utility RA#[id number]); 1715 (LDA cleanup utility RA#[id number]) 10/16/18 1703 by Erika Licona RN 10/18/21 1715 by Lian Márquez (RETIRED) Peripheral IV Line - Single Lumen 01/24/19; 0802; median cubital vein (antecubital fossa), left; [id number] catheter system; 22 gauge, 1/2 in length; site benign ; removed per policy/procedure, catheter/device intact, site care per policy/procedure; 01/24/19; 1046 01/24/19 0802 by Noni Garcia RN 01/24/19 1046 by Anyi Wilkinson RN Supraglottic Mask Ventilation: Easy (1); LMA Type: iGel; LMA Size: 3; Removal Date: 01/24/19; Removal Time: 1012 01/24/19 0843 by Ken Canseco MD 01/24/19 1012 by Lu Lopez CRNA documented in this encounter Social History Tobacco [...] OR Notes * Anesthesia Postprocedure Evaluation - Ken Canseco MD - 01/24/2019 5:05 PM EST Department of Anesthesiology Post-procedure Note Patient: Barbara Chapman Procedure Summary Date: 01/24/19 Room / Location: [address] Anesthesia Start: 832 Anesthesia Stop: 101 Procedures: CYSTO, STENT PLACEMENT (WRVU 2.82) (N/A Ureter) CYSTOURETEROSCOPY, LITHOTRIPSY (WRVU 7.5) (N/A Bladder) CYSTOURETHROSCOPY WITH UTETEROSCOPY, W\REMOVAL, MANIPULATION OF CALCULUS (WRVU 6.75) (N/A Bladder) MODIFIER HOLMIUM LASER (N/A Bladder) CYSTO, RETROGRADE, URETEROPYELOGRAPHY (WRVU 2.37) (Right Bladder) Diagnosis: (Ureteral obstruction) Surgeon: Stacey Leblanc MD Responsible Provider: Ken Canseco MD Anesthesia Type: general ASA Status: 2 All Anesthesia Providers: Anesthesiologist: Ken Canseco MD BLOWING WEASAND: Lu Lopez CRNA Vitals Value Taken Time BP 133/77 01/24/2019 10:27 AM Temp 36.1 ??C (97 ??F) 01/24/2019 10:14 AM Pulse 84 01/24/2019 10:34 AM Resp 20 01/24/2019 10:34 AM SpO2 98 % 01/24/2019 10:34 AM Pain Level 1 01/24/2019 10:55 AM Patient Location: PACU/[facility] Level of Consciousness: Awake and Alert Pain Management: Satisfactory Analgesia PONV: None Cardiovascular Status: At Baseline and Hemodynamically Stable Respiratory Status: At Baseline and Room Air Postoperative Fluid Status: Intravascular EUvolemia Possible Anesthetic Complications: NONE apparent at time of evaluation Final Primary Anesthesia Type: General (The anesthetic type performed was the same as planned.) Comments: Ken Canseco MD * Anesthesia Preprocedure Evaluation - Ken Canseco MD - 01/24/2019 7:24 AM EST Pre-Anesthesia Evaluation for: Barbara Chapman a 48 y.o. female. Procedure(s): CYSTO, STENT PLACEMENT (WRVU 2.82) CYSTOURETEROSCOPY, LITHOTRIPSY (WRVU 7.5) CYSTOURETHROSCOPY WITH UTETEROSCOPY, W\REMOVAL, MANIPULATION OF CALCULUS (WRVU 6.75) MODIFIER HOLMIUM LASER Patient Active Problem List Diagnosis ??? Bilateral nephrolithiasis ??? Gastroesophageal reflux ??? Asthma ??? Anxiety ??? Depression ??? Infection of prosthetic left knee joint ??? Diabetes mellitus ??? Migraines History reviewed. No pertinent past medical history. Past Surgical History: Procedure Laterality Date ??? PRO CYSTO/URETERO/PYELOSCOPY W/LITHOTRIPSY Left 11/16/2018 CYSTOURETEROSCOPY, LITHOTRIPSY (WRVU 7.5) performed by Nena Ace MD at [facility] OR ??? PRO CYSTO/URETERO/PYELOSCOPY W/LITHOTRIPSY Bilateral 12/28/2018 CYSTOURETEROSCOPY, LITHOTRIPSY (WRVU 7.5) performed by Nena Ace MD at [facility] OR ??? PRO CYSTO/URETERO/PYELOSCOPY, CALCULUS TX Bilateral 11/16/2018 CYSTOURETHROSCOPY WITH UTETEROSCOPY, W\REMOVAL, MANIPULATION OF CALCULUS (WRVU 6.75) performed by Nena Ace MD at [facility] OR ??? PRO CYSTOSCOPY, INSERT URETERAL STENT Bilateral 10/16/2018 CYSTO, STENT PLACEMENT (WRVU 2.82) performed by Agustin Crespo MD at [facility] OR ??? PRO CYSTOSCOPY, INSERT URETERAL STENT Bilateral 11/16/2018 CYSTO, STENT PLACEMENT (WRVU 2.82) performed by Nena Ace MD at [facility] OR ??? PRO CYSTOURETHROSCOPY, URETER CATHETER Bilateral 10/16/2018 CYSTO, RETROGRADE, URETEROPYELOGRAPHY (WRVU 2.37) performed by Agustin Crespo MD at [facility] OR Social History Tobacco Use ??? Smoking [...] c-mac in room given gr 3 v I have seen and examined the patient. I have reviewed the medical record and pertinent laboratory information. I have noted the major medical issues to include abcd. I have reviewed risks from minor to major as outlined in the anesthesia consent form. I have highlighted risks related to abcd. The patient acknowledged These risks and would like to proceed with the anesthesia plan. Region - Other Informed Consent: Anesthetic plan and risks discussed with patient. Plan discussed with resident. PAT Clinic Note documented in this encounter Plan of Treatment Not on file documented as of this encounter Visit Diagnoses Not on filedocumented in this encounter Administered Medications Inactive Administered Medications - up to 3 most recent administrations Medication Order MAR Action Action Date Dose Rate Site albuterol 90 mcg/actuation inhaler PRN, Starting on Christen 01/24/19 at 1008, Until Christen 01/24/19 at 1019, Anesthesia Intra-op, Routine Given 01/24/2019 10:08 AM EST 6 puffs cefTRIAXone (ROCEPHIN) 2 g vial attach to sodium chloride 0.9% 50 mL Mini-Bag Plus 2 g, Intravenous, DIRECTOR OF DONOR RELATIONS TO O.R., 1 dose, On Christen 01/24/19 at 0800, Administer over 30 Minutes, Day of Surgery (Day of Procedure), Indication for (Active or Suspected): Prophylaxis New Bag 01/24/2019 8:35 AM EST 2 g dexamethasone (DECADRON) injection PRN, Starting on Christen 01/24/19 at 0850, Until Christen 01/24/19 at 1019, Anesthesia Intra-op, Routine Given 01/24/2019 8:50 AM EST 8 mg ePHEDrine 5 mg/mL multi-dose injection PRN, Starting on Christen 01/24/19 at 0924, Until Christen 01/24/19 at 1019, Anesthesia Intra-op, Routine Given 01/24/2019 9:24 AM EST 10 mg fentaNYL 50 mcg/mL multi-dose injection PRN, Starting on Christen 01/24/19 at 0852, Until Christen 01/24/19 at 1019, Anesthesia Intra-op, Routine Given 01/24/2019 9:20 AM EST 50 mcg Given 01/24/2019 8:52 AM EST 50 mcg ketorolac (TORADOL) injection PRN, Starting on Christen 01/24/19 at 0920, Until Christen 01/24/19 at 1019, Anesthesia Intra-op, Routine Given 01/24/2019 9:20 AM EST 15 mg lactated ringers infusion 1,000 mL, at 100 mL/hr, Intravenous, CONTINUOUS, Starting on Christen 01/24/19 at 0800, Until Christen 01/24/19 at 1101, Day of Surgery (Day of Procedure) New Bag 01/24/2019 10:09 AM EST New Bag 01/24/2019 8:05 AM EST 1,000 mLs 100 mL/hr midazolam (PF) (VERSED) multi-dose injection PRN, Starting on Christen 01/24/19 at 0835, Until Christen 01/24/19 at 1019, Anesthesia Intra-op, Routine Given 01/24/2019 8:35 AM EST 2 mg ondansetron (ZOFRAN) injection PRN, Starting on Christen 01/24/19 at 1000, Until Christen 01/24/19 at 1019, Anesthesia Intra-op, Routine Given 01/24/2019 10:00 AM EST 8 mg propofol (DIPRIVAN) 10 mg/mL bolus injection (Anesthesia) PRN, Starting on Christen 01/24/19 at 0841, Until Christen 01/24/19 at 1019, Anesthesia Intra-op Given 01/24/2019 8:41 AM EST 300 mg propofol (DIPRIVAN) infusion CONTINUOUS PRN, Starting on Christen 01/24/19 at 0841, Until Christen 01/24/19 at 1019, Anesthesia Intra-op, Routine New Bag 01/24/2019 8:41 AM EST 50 mcg/kg/min 25.4 mL/hr documented in this encounter Care Teams Fitness Consultant Relationship Specialty Start Date End Date Gissell Davis, KENYATTA [address] [place] [address] PCP - General Family Medicine 08/21/18 11/12/21 documented as of this encounter
--- OUTSIDE RECORDS SUMMARY | 2023-10-05 02:25 | XMS_ITS | Encounter Summary ---
Author Organization [facility] Address [facility] [place] [address] Care Team Providers Care Electric Motor Mechanic Name Role Phone Gissell Davis APRN Primary Care Provider [phone] Encounter Details Date Type Department Care Team (Late st Contact Info) Description 12/28/2018 9:58 AM EST - 12/28/2018 12:56 PM EST Surgery [place] [phone] Nena Ace MD [facility] [place] [address] CYSTOURETEROSCOPY, LITHOTRIPSY (WRVU 7.5) Social History Tobacco [...] Sign Reading Time Taken Comments Blood Pressure 115/74 12/28/2018 9:08 AM EST Pulse 71 12/28/2018 9:08 AM EST Temperature 36.4 ??C (97.5 ??F) 12/28/2018 9:08 AM ES T Respiratory Rate 16 12/28/2018 9:08 AM EST Oxygen Saturation 100% 12/28/2018 9:08 AM EST Inhaled Oxygen Concentration - - [...] 7.5) performed by Nena Ace MD at [facility] MAIN OR ??? PRO CYSTO/URETERO/PYELOSCOPY, CALCULUS TX Bilateral 11/16/2018 CYSTOURETHROSCOPY WITH UTETEROSCOPY, W\REMOVAL, MANIPULATION OF CALCULUS (WRVU 6.75) performed by Nena Ace MD at [facility] MAIN OR ??? PRO CYSTOSCOPY, INSERT URETERAL STENT Bilateral 10/16/2018 CYSTO, STENT PLACEMENT (WRVU 2.82) performed by Agustin Crespo MD at [facility] OR ??? PRO CYSTOSCOPY, INSERT URETERAL STENT Bilateral 11/16/2018 CYSTO, STENT PLACEMENT (WRVU 2.82) performed by Nena Ace MD at [facility] OR ??? PRO CYSTOURETHROSCOPY, URETER CATHETER Bilateral 10/16/2018 CYSTO, RETROGRADE, URETEROPYELOGRAPHY (WRVU 2.37) performed by Agustin Crespo MD at [facility] OR No current facility-administered medications on file [...] Note ?? Patient Name: Barbara Chapman : [id number] MR#: [id number] ?? Case Date: 12/28/2018 ?? Surgeon: Surgeon(s) [...] then inserted the flexible ureteroscopeand used the [employer] basket to extract all of the ureteral [...] Operative Note Patient Name: Barbara Chapman : [id number] MR#: [id number] Case Date: 12/28/2018 Surgeon: Surgeon(s) and Role: * Nnea Ace MD - Primary * Gonzalo Goodrich [...] Routine 12/28/2018 11:3 2 AM EST HC [facility] KIDNEY STONE ANALYSIS Routine 12/28/2018 11:21 AM EST HC URINE CULTURE Routine 12/28/2018 11:2 1 AM EST MODIFIER HOLMIUM LASER 12/28/2018 10:45 AM EST STONE Cysto/Uretero/Pyelos copy W/Lithotripsy (84937) 12/28/2018 10:45 AM EST STONE POCT GLUCOSE Routine 12/28/2018 9:40 AM EST documented in this encounter Results * SCAN DOC: IMPLANTABLE DEVICES (12/31/2018 12:00 AM EST) Narrative 12/31/2018 12:00 AM EST Ordered by an unspecified provider. Scanning Provider MEDIA MGR SCAN EXT O RDR/RSLT * POCT Glucose (12/28/2018 1:29 PM EST) Glucose, POC 141 65 - 199 mg/dL [facility] Comment: Supplemental ranges: <140 mg/dL before meals <180 mg/dL all other times of the day Blood specimen (specimen) 12/28/2018 1:29 PM EST 12/28/2018 1:29 PM EST Nena Ace MD POINT OF CARE TEST O RDERABLES Performing Organization Address [facility] de Phone Number [facility] [place] [address] * XR Fluoro No Rad <1Hr - OR Use (12/28/2018 1:14 PM EST) Narrative RAD - 12/28/2018 1:14 PM EST This exam is auto-finalizing. No interpretation was done. Nena Ace MD IMG FLUORO ORDERABLE S Performing Organization Address [facility] de Phone Number [place], [place] * Urine culture Urine (12/28/2018 11:32 AM EST) Urine Culture No growth (Less than 100 cfu/ml). [facility] Urine specimen (specimen) 12/28/2018 11:32 AM EST 12/28/2018 12:14 PM EST Comment:RIGHT RENAL PELVIC U RINE CULTURE Narrative Resulting Agency Comment Spec In Lab Nena Ace MD MICROBIOLOGY - GENER AL ORDERABLES Performing Organization Address [facility] de Phone Number [facility] [place] [address] * Kidney Stone Analysis (12/28/2018 11:21 AM EST) Kidney Stone Analysis (MAY) Test ?Result ? Flag ??Unit ??RefValue Kidney Stone Analysis ??Source: ? Right Ureter ??Interpretation ?SEE COMMENTS ?90% Calcium oxalate monohydrate ?10% Calcium oxalate dihydrate ?Test Performed by: ?[facility] ?[address] [place] [address] ?Research Spec: Mario River M.D. Ph.D.; CLIA# [id number] [facility] Calculus specimen (specimen) 12/28/2018 11:21 AM EST 12/28/2018 1:36 PM EST Narrative Resulting Agency Comment Spec In Lab Nena Ace MD LAB SEND OUT ORDERAB LES Performing Organization Address [facility] Co de Phone Number [facility] [place] [address] * Urine culture Cystoscopic Urine (12/28/2018 11:21 AM EST) Urine Culture No growth (Less than 100 cfu/ml). [facility] Urine specimen (specimen) 12/28/2018 11:21 AM EST 12/28/2018 1:58 PM EST Comment:BLADDER URINE Narrative Resulting Agency Comment Spec In Lab Nena Ace MD MICROBIOLOGY - GENER AL ORDERABLES Performing Organization Address [facility] Co de Phone Number [facility] [place] [address] * POCT Glucose (12/28/2018 9:40 AM EST) Glucose, POC 126 65 - 199 mg/dL [facility] Comment: Supplemental ranges: <140 mg/dL before meals <180 mg/dL all other times of the day Blood specimen (specimen) 12/28/2018 9:40 AM EST 12/28/2018 9:40 AM EST Nena Ace MD POINT OF CARE TEST O RDERABLES [facility] [place] [address] documented in this encounter Visit Diagnoses Not [...] Recovery, Routine iohexol (OMNIPAQUE) 300 mg/mL solution ONCE PRN, Starting on Mon12/28/18 at 1321, Until Mon12/28/18 at 1621, Intra-Operative (Intra-Procedure), Routine Given 12/28/2018 1:21 PM EST 40 mLs 19- Surgical Site lactated ringers infusion 1,000 mL, at [...] Day of Surgery (Day of Procedure), Routine 0930 (Given - Provid er: Becky Nunez RN) cefTRIAXone (ROCEPHIN) 2 g vial attach to sodium chloride 0.9% 50 mL Mini-Bag Plus (COMPLETED) 2 g, Intravenous, GENERAL WORKER TO O.R., 1 dose, On Mon12/28/18 at 0930, Administer over 30 Minutes, Day of Surgery (Day of Procedure), Indication for (Active or Suspected): Prophylaxis 1057 (Given - Provid er: Poonam Day) scopolamine (TRANSDERM-SCOP) 1 mg over 3 days patch 1 patch 1 patch, Transdermal, ONCE, 1 dose, On Mon12/28/18 at 0930, Day of Surgery (Day of Procedure), Routine 0930 (Due) scopolamine (TRANSDERM-SCOP) 1 mg patch Patch Removal Transdermal, EVERY 24 HOURS, 1 dose, First dose on Mon12/28/18 at 0930, Remove scopolamine 1.5 mg patch, Recovery (Recovery-Hospital Unit) 0930 (Due)0949 (Patc h Not Removed (add comment) - Provider: [...] Routine documented in this encounter Care Teams Electric Motor Mechanic Relationship Specialty Start Date End Date Gissell Davis APRN [address] [place] [address] PCP - General Family Medicine 08/21/18 11/12/21 documented as of this encounter
--- OUTSIDE RECORDS SUMMARY | 2023-10-05 02:26 | XMS_ITS | Encounter Summary ---
Author Organization [facility] [place] [address] Care Team Providers Care Rail Car Welder Name Role Phone Gissell Davis APRN Primary Care Provider Encounter Details Date Type Department Care Team (Late st Contact Info) Description 10/15/2018 [place] [phone] [place] [address] Social History Tobacco Use Types Packs/Day Years [...] encounter Miscellaneous Notes * Telephone Encounter - Nena Ace MD - 10/15/2018 11:20 AM EDT Received a call from the transfer center regarding pt at [facility] with bilateral ureteral stones and RENAE. No fevers. She is on Keflex and Rifampin for chronic knee infection. Will plan to transfer to [facility] for attempt at endoscopic intervention. Nena Ace MD documented in this encounter Plan of Treatment Not on file documented as of this encounter Visit Diagnoses Not on filedocumented in this encounter Care Teams Rail Car Welder Relationship Specialty Start Date End Date Gissell Davis APRN [address] [place] [address] PCP - General Family Medicine 08/21/18 11/12/21 documented as of this encounter
--- OUTSIDE RECORDS SUMMARY | 2023-10-05 02:26 | XMS_ITS | Encounter Summary ---
Author Organization [facility] [place] [address] Care Team Providers Care Freelance Web Designer Name Role Phone Crala Lieberman MD Primary Care Provider Encounter Details Date Type Department Care Team (Late st Contact Info) Description 08/09/2017 Ancillary Procedure [place] [phone] Gissell Davis, KENYATTA [address] [place] [address] Social History Tobacco Use Types Packs/Day Years Used Date Smoking Tobacco: Never Alcohol Use Standard Drinks/Week Comments [...] FILM LIBRARY STORAGE ONLY DX KNEE Routine 08/09/2017 12:00 AM EDT documented in this encounter Results * Film Library- Storage Only DX Knee (08/09/2017 12:00 AM EDT) Narrative ANAYELI - 03/17/2020 3:47 PM EST This exam is auto-finalizing. It's purpose is for storage only. Gissell Davis APRN IMG FILM LIBRARY ORD ERABLES DH [place], [place] documented in this encounter Visit Diagnoses Not on filedocumented in this encounter Care Teams Freelance Web Designer Relationship Specialty Start Date End Date Carla Lieberman MD [address] [place] [address] PCP - General 01/12/10 08/19/18 documented as of this encounter
--- OUTSIDE RECORDS SUMMARY | 2023-10-05 02:26 | XMS_ITS | Encounter Summary ---
Author Organization [facility] Address [facility] [place] [address] Care Team Providers Care Hospital Administrator Name Role Phone Carla Lieberman MD Primary Care Provider [phone] Encounter Details Date Type Department Care Team (Late st Contact Info) Description 01/03/2018 Ancillary Procedure [place] [phone] Gissell Davis, KENYATTA [address] [place] [address] Social History Tobacco Use Types Packs/Day Years [...] FILM LIBRARY STORAGE ONLY DX KNEE Routine 01/03/2018 12:00 AM EST documented in this encounter Results * Film Library- Storage Only DX Knee (01/03/2018 12:00 AM EST) Narrative ANAYELI - 03/17/2020 3:52 PM EST This exam is auto-finalizing. It's purpose is for storage only. Gissell Davis APRN IMG FILM LIBRARY ORD ERABLES [facility] [place], [place] documented in this encounter Visit Diagnoses Not on filedocumented in this encounter Care Teams Hospital Administrator Relationship Specialty Start Date End Date Carla Lieberman MD [address] [place] [address] PCP - General 01/12/10 08/19/18 documented as of this encounter
--- OUTSIDE RECORDS SUMMARY | 2023-10-05 02:26 | XMS_ITS | Encounter Summary ---
Author Organization [facility] [place] [address] Care Team Providers Care Rubber Insulator Name Role Phone Sarthaklinus Gissell J KENYATTA Primary Care Provider Encounter Details Date Type Department Care Team (Late st Contact Info) Description 10/15/2018 10:50 AM EDT Ancillary Procedure [place] [phone] Nena Ace MD [facility] [place] [address] Social History Tobacco Use Types Packs/Day Years [...] Associated Diagnosis Comments FILM LIBRARY STORAGE ONLY CT ABDOMEN Routine 10/15/2018 10:46 AM EDT documented in this encounter Results * Film Library- Storage Only CT Abdomen (10/15/2018 10:46 AM EDT) Narrative [facility] - 10/15/2018 10:46 AM EDT This exam is auto-finalizing. It's purpose is for storage only. Nena Ace MD G FILM LIBRARY ORD ERABLES Performing Organization Address City/State/[facility] Co de Phone Number [facility] [place], [place] documented in this encounter Visit Diagnoses Not on filedocumented in this encounter Care Teams Rubber Insulator Relationship Specialty Start Date End Date Gissell Davis APRN [address] [place] [address] PCP - General Family Medicine 08/21/18 11/12/21 documented as of this encounter
--- OUTSIDE RECORDS SUMMARY | 2023-10-05 02:26 | XMS_ITS | Encounter Summary ---
Author Organization [facility] [place] [address] Care Team Providers Care Chef Concierge Name Role Phone Carla Lieberman MD Primary Care Provider [phone] Reason for Visit * Reason Onset Date Comments GI Problem 09/06/2010 dameon egd per mariam Encounter Details Date Type Department Care Team (Late st Contact Info) Description 09/06/2010 Telephone [place]astro[place] [phone] Ash Pinto MD [facility] [place] [address] GI Problem (dameon egd per mariam) Social History Tobacco Use Types Packs/Day Years Used Date Smoking Tobacco: Never Alcohol Use Standard Drinks/Week Comments Not Asked 0 (1 standard drink = 0.6 oz pur e alcohol) Sex and Gender Information Value Date Recorded Sex Assigned at Not on file Gender Identity Not on file Sexual Orientation Not on file documented as of this encounter Miscellaneous Notes * Telephone Encounter - Barb Spivey RN - 09/06/2010 4:09 PM EDT Return message from Dr. Pinto: In response to coughing up blood Dr. Pinto informs pt that this means an ER visit in the future ifoccurs again. Have pt schedule an egd, canceled 2 in past. No changes in meds or diet until egd scheduled. Left message on machine for pt. documented in this encounter Plan of Treatment Not on file documented as of this encounter Visit Diagnoses Not on filedocumented in this encounter Care Teams Chef Concierge Relationship Specialty Start Date End Date Carla Lieberman MD [address] [place] [address] PCP - General 01/12/10 08/19/18 documented as of this encounter
--- OUTSIDE RECORDS SUMMARY | 2023-10-05 02:26 | XMS_ITS | Encounter Summary ---
[place] [address] Care Team Providers Care Floor Covering Printer Assistant Name Role Phone Carla Lieberman MD Primary Care Provider [phone] Encounter Details Date Type Department Care Team (Late st Contact Info) Description 12/22/2017 Ancillary Procedure [place] [id number] Gissell Davis, KENYATTA [address] [place] [address] Social History Tobacco Use Types Packs/Day Years [...] FILM LIBRARY STORAGE ONLY DX KNEE Routine 12/22/2017 12:00 AM EDT documented in this encounter Results * Film Library- Storage Only DX Knee (12/22/2017 12:00 AM EDT) Narrative ANAYELI - 03/17/2020 3:51 PM EST This exam is auto-finalizing. It's purpose is for storage only. Gissell Davis APRN IMG FILM LIBRARY ORD ERABLES DH [place], [place] documented in this encounter Visit Diagnoses Not on filedocumented in this encounter Care Teams Floor Covering Printer Assistant Relationship Specialty Start Date End Date Carla Lieberman MD [address] [place] [address] PCP - General 01/12/10 08/19/18 documented as of this encounter
--- OUTSIDE RECORDS SUMMARY | 2023-10-05 02:26 | XMS_ITS | Encounter Summary ---
Author Organization [facility] [place] [address] Care Team Providers Care Typesetting Machine Tender Name Role Phone Carla Lieberman MD Primary Care Provider [phone] Reason for Visit * Reason Onset Date Comments Hemoptysis 08/26/2010 Encounter Details Date Type Department Care Team (Late st Contact Info) Description 08/26/2010 Telephone [place] [id number] Rica Zavala RN Hemoptysis Social History Tobacco Use Types Packs/Day Years Used Date Smoking Tobacco: Never Alcohol Use Standard Drinks/Week Comments Not Asked 0 (1 standard drink = 0.6 oz pur e alcohol) Sex and Gender Information Value Date Recorded Sex Assigned at Not on file Gender Identity Not on file Sexual Orientation Not on file documented as of this encounter Miscellaneous Notes * Telephone Encounter - Rica Zavala RN - 08/26/2010 1:10 PM EDT Pt calls to report coughing up blood while vomiting on 08/23/10, 08/25/10 and today. States is less than a thimble-full and sometimes just a smear on tissue. Refuses to go to local ED, stating I've been there enough times to know that they won't do anything. States med prescribed by Dr. Pinto (Compazine) isn't working. States has tried every anti-emetic made except for Scopolamine patches, which her insurance wouldn't cover. States she vomits every time she eats and other times during the day. Also c/o having a lot of abd pain going to my stomach. It really, really aches like I'm being stabbed with a knife. States having bad heartburn; she is popping Rolaids like candy. Asks for EGD to fix everything. I told pt that I would notify Dr. Pinto - agrees. documented in this encounter Plan of Treatment Not on file documented as of this encounter Visit Diagnoses Not on filedocumented in this encounter Care Teams Typesetting Machine Tender Relationship Specialty Start Date End Date Carla Lieberman MD [address] [place] [address] PCP - General 01/12/10 08/19/18 documented as of this encounter
--- OUTSIDE RECORDS SUMMARY | 2023-10-05 02:26 | XMS_ITS | Encounter Summary ---
[place] [address] Care Team Providers Care Natural Resources Professor Name Role Phone Carla Lieberman MD Primary Care Provider [phone] Encounter Details Date Type Department Care Team (Late st Contact Info) Description 04/06/2010 8:30 AM EST Procedure [place] [address] Lynette Gregory, [place] Social History Tobacco Use Types Packs/Day Years Used Date Smoking Tobacco: Never Assessed Sex and Gender Information Value Date Recorded Sex Assigned at Not on file Gender Identity Not on file Sexual Orientation Not on file documented as of this encounter Plan of Treatment Not on file documented as of this encounter Visit Diagnoses Not on filedocumented in this encounter Care Teams Natural Resources Professor Relationship Specialty Start Date End Date Carla Lieberman MD [address] [place] [address] PCP - General 01/12/10 08/19/18 documented as of this encounter
--- OUTSIDE RECORDS SUMMARY | 2023-10-05 02:26 | XMS_ITS | Encounter Summary ---
[place] [address] Care Team Providers Care Awake Overnight Counselor Name Role Phone Carla Lieberman MD Primary Care Provider [phone] Encounter Details Date Type Department Care Team (Late st Contact Info) Description 09/06/2010 Telephone [place] [phone] Ash Pinto MD [facility] [place] [address] Social History Tobacco Use Types Packs/Day Years [...] on filedocumented in this encounter Care Teams Awake Overnight Counselor Relationship Specialty Start Date End Date Carla Lieberman MD [address] [place] [address] PCP - General 01/12/10 08/19/18 documented as of this encounter
--- OUTSIDE RECORDS SUMMARY | 2023-10-05 02:26 | XMS_ITS | Encounter Summary ---
Author Organization [facility] [place] [address] Care Team Providers Care Packaging Specialist Name Role Phone Carla Lieberman MD Primary Care Provider [phone] Encounter Details Date Type Department Care Team (Late st Contact Info) Description 01/13/2010 2:30 PM EST Follow-[place] [address] Kassy Ortiz APRN [facility] [place] [address] Social History Tobacco Use Types Packs/Day Years Used Date Smoking Tobacco: Never Assessed Sex and Gender Information Value Date Recorded Sex Assigned at Not on file Gender Identity Not on file Sexual Orientation Not on file documented as of this encounter Plan of Treatment Not on file documented as of this encounter Visit Diagnoses Not on filedocumented in this encounter Care Teams Packaging Specialist Relationship Specialty Start Date End Date Carla Lieberman MD [address] [place] [address] PCP - General 01/12/10 08/19/18 documented as of this encounter
--- OUTSIDE RECORDS SUMMARY | 2023-10-05 02:26 | XMS_ITS | Encounter Summary ---
[place] [address] Care Team Providers Care Smoked Meat Preparer Name Role Phone Carla Lieberman MD Primary Care Provider Encounter Details Date Type Department Care Team (Late st Contact Info) Description 08/11/2017 Ancillary Procedure [place] [phone] Gissell Davis, KENYATTA [address] [place] [address] Social History Tobacco Use Types Packs/Day Years [...] Diagnosis Comments FILM LIBRARY STORAGE ONLY CT KNEE Routine 08/11/2017 12:00 AM EDT documented in this encounter Results * Film Library- Storage Only CT Knee (08/11/2017 12:00 AM EDT) Narrative ANAYELI - 03/17/2020 3:48 PM EST This exam is auto-finalizing. It's purpose is for storage only. Gissell Davis APRN IMG FILM LIBRARY ORD ERABLES DH [place], [place] documented in this encounter Visit Diagnoses Not on filedocumented in this encounter Care Teams Smoked Meat Preparer Relationship Specialty Start Date End Date Carla Lieberman MD [address] [place] [address] PCP - General 01/12/10 08/19/18 documented as of this encounter
--- OUTSIDE RECORDS SUMMARY | 2023-10-05 02:26 | XMS_ITS | Encounter Summary ---
Author Organization [facility] [place] [address] Care Team Providers Care Call Center Specialist Name Role Phone Gissell Davis APRN Primary Care Provider Reason for Visit * Reason Comments Referral * Consultation (Routine) - Specialty Diagnoses / Procedures Referred By Contac t Referred To Contact Infectious Diseases Diagnoses h/o knee infx, suppressive abx consult Procedures consult Raheel Gongora MD [address] [place] [address] [facility] Infectious Dis [address] [place] [address] Referral ID Status Reason Start Date Expiration Date V isits Requested Visits Authorized [id number] 06/28/2018 06/28/2019 1 1 Encounter Details Date Type Department Care Team (Late st Contact Info) Description 08/21/2018 2:30 PM EDT Office [place] [address] [place] [address] Infection of prosthetic joint, initial encounter Social History Tobacco Use Types Packs/Day [...] Sign Reading Time Taken Comments Blood Pressure 115/82 08/21/2018 2:42 PM EDT Pulse 97 08/21/2018 2:42 PM EDT Temperature 36.5 ??C (97.7 ??F) 08/21/2018 2:42 PM ED T Respiratory Rate - - Oxygen Saturation 100% 08/21/2018 2:42 PM EDT RA Inhaled Oxygen Concentration - - Weight 85 kg (187 lb 6.4 oz) 08/21/2018 2:42 PM EDT Height - - Body Mass Index 33.2 07/08/2010 12:26 PM EDT documented in this encounter Progress Notes * Reggie Hull MD - 08/21/2018 2:30 PM EDT New Outpatient ID Consultation Date of Consultation: 08/21/2018 Consult Service: Infectious Disease Responsible Attending: Reggie Hull MD, MPH Reason for Consult: We are seeing Barbara Chapman at the request of Dr. Gongora for the evaluationof suppressive antibiotics for h/o knee infection. I have reviewed the available records, interviewed and examined the patient. 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 After patient's initial TKAshe was experiencing joint dysfunction post-op (limited flexion of her knee), she was taken back tot OR on 08/22/17 for a revision/exchange of her polyethylene component to a smaller size. The knee appeared healthy at that time without signs/symptoms of infection. 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 Joint aspiration revealed concern for infection (I called [facility] and no report of culture performed) and patient underwent an initial I&D with polyethylene exchange on 09/13/17. Patient reports receiving 6 weeks of IV antibiotics (patient thinks with Rocephin). Due to persistent infection she eventually underwent a 2-stage revision with explantation of left knee arthroplasty and placement of a cement spacer on 10/19/17 with reimplantation on 12/22/17 after completing 6 weeks of antibiotics with negative repeat aspiration (per report). Beginning around April 2018 she developed increased swelling and pain in her knee and went for a repeat left TKA irrigation and debridement with polyethylene exchange 04/22/18 for PJI. Operative findings showed mild synovitis with purulent material within the knee. Cultures grewMSSA. During this time, patient also appears to have had a Group A Strep bacteremia of unclear source (BCx from 04/22 were positive for GAS). She completed 6 weeks of Ceftriaxone 2 grams IV daily with rifampin 300 mg PO BID (finished around 06/05/18), and then transitioned to oral cephalexin 500 mg PO TID with rifampin 300 mg PO BID around mid-May, which she has been on since. Patient today reports a lot of pain in the left knee - reports pain is 7-9/10, constant. Reports difficulty walking, is unable to go to physical therapy due to pain. She has recurrent anterior kneeswelling and LLE edema. She reports having knee aspirations a couple times since the last surgery (I don't have record of these). Reports knee gets red and hot and swollen - swelling is all the time; redness and heat occur every day, but waxes and wanes fairly quickly. Patient reports that her left knee was doing better at the end of her 6 weeks of IV antibiotics but over the last several weeksher knee has been getting worse (burning pain, ache, redness, heat and swelling). Review of Systems: Gen: Denies F/C Eyes: Denies visual changes ENT: Denies URI symptoms Resp: Denies SOB, denies cough CV: Denies chest pain GI: Denies abd pain/N/V/D : Denies dysuria/hematuria Heme/lymph: + LLE edema MS: Denies any other painful swollen joints Neuro: Denies headache, + h/o migraines Derm: Denies rash Problem List: Patient Active Problem List Diagnosis Code ??? Gastroesophageal reflux K21.9 ??? Asthma J45.909 ??? Anxiety F41.9 ??? Depression F32.9 ??? 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 Diabetes mellitus E11.9 ??? 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 Palpable liver Hem/Lymph: No LE edema MS: Left knee with mild warmth and swelling, + tender anterior/superiorly, no erythema, no drainage. No tenderness on percussion of her spine Skin: No rash Neuro: A&Ox3 OS Labs 06/05/18: WBC 9.6 Hgb 10.2 Plt 360 Na 138 K 3.7 Cl 101 CO2 24.4 BUN 13 Cr 0.75 T bili 0.3 Alk Phos 64 AST 11 ALT 19 CRP: 0.51 mg/dL (0.84 on 05/08/18) Microbiology: BCx 04/22/18: Group A Strep BCx 04/24/18: No growth UCx 04/24/09: No growth Left knee 12/08/17: No growth Left knee 04/22/18: MSSA (culture at [facility]) - rifamycin susceptibility not tested for (per microbiologist at OSH). Patient reports a left knee aspiration a couple weeks ago, but I don't currently have results or cultures on file, and when I called the [facility] microbiology lab, they reported no further synovial fluid culture results. 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 Patient has had multiple repeat surgeries and revisionson her left knee including a total explant and temporary spacer 10/19/17 followed by 6 weeks of IV antibiotics and reimplantation on 12/22/17. Patient subsequently developed a recurrent infection in April of this year with cultures growing MSSA, and patient underwent an I&D and polyethylene exchange, but hardware was retained, and she was treated again with 6 weeks of IV abx (plus rifampin) followed by oral cephalexin TID plus rifampin BID, which patient remains on currently. Patient has beenreferred to ID for assistance with antibiotic management. Given her repeated infections, most recently with MSSA and retained hardware, I am concerned about the ability to eradicate infection without hardware removal. My evaluation today was only at a single point in time, and it is unclear to me the status of the patient's left knee infection... after her last I&D and polyethylene exchange in April 2018, she appeared to improve after 6 weeks of IV ceftriaxone plus PO rifampin; however, her story today is of worsening left knee symptoms over the last several weeks despite being on cephalexin plus rifampin (worsening knee pain with increased waxing/waning redness, warmth, and swelling of her left knee). It sounds like she has had additional work-up including joint aspirations, but I don't have record of the results (neither any culture results nor synovial fluid cell counts) to help assess status of her infection. I think the first step is to determine whether her left knee PJI is currently controlled on her current antibiotic regimen. Symptomatically it sounds like her symptoms have been worsening. It would help to have a recent synovial fluid cell count, gram stain and culture to help assess antibiotic response. If there is evidence of active/uncontrolled infection, then I think she probably needs to go back to surgery for an aggressive I&D with debridement of any necrotic tissue, total hardware explant, temporary spacer placement, and at least another 6 weeks of culture-directed IV antibiotic therapy. This approach would be her best chance of cure, and in discussion with the patient today, sheseemed to prefer this approach given her ongoing symptoms. However, it is still not clear to me if her symptoms are due to uncontrolled infection. Therefore, more recent labs (e.g. ESR, CRP) and synovial fluid analysis and culture can help with this determination. If there it not evidence of ongoing active left knee PJI, than I think she can probably continue onher current antibiotic regimen and be monitored. She has had appropriate antibiotic management after her last I&D with 6 weeks of IV Ceftriaxone plus PO rifampin, followed now by oral combinationtherapy with cephalexin plus rifampin. Current treatment guidelines recommend a course of IV antibiotics followed by 6 months of oral combination antibiotics for a knee PJI, and then consideration for chronic/lifetime oral suppressive therapy. In my discussions with the patient today, however, she appeared to prefer to aim for cure instead of life-long suppression and specifically expressed concern for oral antibiotics affecting her GI system long-term. Therefore, I would probably suggest against lifelong suppression based on patient preference, but if she completes 6 months of oral combination antibiotic therapy then monitoring her off antibiotics. If infection were to recur off antibiotics, then she would need repeat I&D with hardware explant and another course of IV antibiotic therapy... this is, of course, assuming that further work-up doesn't show signs/symptoms of active PJI. In summary, antibiotic (and surgical management) depends on assessment of current status of infection. It is also important to note that rifampin has many drug-drug interactions. Rifampin will decrease the levels of amitriptyline, fluoxetine, tramadol, and propranalol (risk rating/category C), which patient is currently on. Patient should be monitored for side effects/symptoms while on rifampin therapy. Summary of Recommendations: ?? Continue Cephalexin and Rifampin at current doses for now ?? Obtain new inflammatory markers (ESR/CRP) and obtain a new/recent synovial fluid sample to send for cell count with diff, gram stain, and bacterial culture ?? If patient has ongoing signs/symptoms of active infection despite her 6 weeks of IV antibiotic therapy followed now by oral combination therapy, than I think repeat surgical I&D, aggressive debridement of any necrotic/infected tissue, hardware explant, and temporary spacer followed by another course of culture- targeted IV antibiotic therapy would be recommended. ?? If her infection is controlled on her current combination oral antibiotic regimen, than I think she can likely be continued on cephalexin plus rifampin for a total of 6 months (per PJI treatment guidelines) and then stop antibiotics and monitor. ?? While chronic suppressive antibiotics can be considered after, based on my discussions with the patient today, I think she would prefer aiming for cure even if that involves repeat surgery and hardware explant. ?? F/u with ortho scheduled on Sunday 08/27 ?? F/u with ID depending on plan going forward - I'm happy to see the patient back to re-assess, but I haven't scheduled another follow-up yet. ++++++++++++++++++++++++++++++++++++ ADDENDUM: After seeing Ms. Chapman in clinic, I discussed patient's case with Dr. Gongora, who faxed over additional labs results for my review: Synovial fluid analysis 04/22/09 (pre-op on day of symptoms): 89,380 nucleated cells, 90% PMNs. Culture positive for MSSA. Synovial fluid analysis 07/09/18 (~7 weeks post I&D): 395 nucleated cells, 39% PMNs Synovial fluid culture 07/09: negative Synovasure neutrophil elastase 07/09: negative Synovasure alpha defensin 07/09: negative, CRP-SF 1.4 Expanded Synovasure microbial panel: negative for P. acnes, Staph panel, Celeste panel, Enterococcus panel CRP 08/14: 0.32 mg/dL (normal ref 0.0 - 0.3) The reason for the Debridement and Retention approach to the left knee PJI in April was because of the patient's abrupt onset of symptoms and quick I&D within a day of symptom onset. Currently Dr. Gongora does not see any evidence of an active left knee PJI infection. Despite the patient's multiple visits and ongoing complaint of left knee pain with intermittent waxing/waning swelling and erythema, Dr. Gongora has never seen the knee when it has looked as patient described. On my examination, patient's left knee also wasn't significantly red, hot, or swollen. Left knee arthrocentesis about 7 weeks post-I&D (performed in June) does not show evidence of active infection. Given this additional information, I think it makes sense to continue patient on her current dose of cephalexin 500 mg PO TID PLUS rifampin 300 mg PO BID (prescribed by orthopedics) with a total planned duration of 6 months following her initial IV antibiotic course. She has been on this regimen since about mid- May (approximately 3 months), so I think she likely needs 3 more months of her oral antibiotic therapy. I will plan on seeing patient back in clinic in about 3 months to re-assess needfor chronic oral suppressive therapy thereafter; however, based on my discussions with her in clinic, so seemed to prefer not being on long-term antibiotic therapy. In the meantime, if patient should experience increasing pain, redness, and swelling of her knee joint, repeat arthrocentesis is probably warranted to ensure she isn't having breakthrough infection on her oral antibiotic therapy. Infectious Disease consult recommendations were communicated to the referring provider 60 minutes of [id number] time was spent with the patient, more than half of which was spent in counseling or coordination of care. REGGIE HULL MD 08/21/2018 8:41 PM documented in this encounter Plan of Treatment Not on file documented as of this encounter Visit Diagnoses Diagnosis Infection of prosthetic joint, initial encounter documented in this encounter Care Teams Call Center Specialist Relationship Specialty Start Date End Date Gissell Davis APRN [address] [place] [address] PCP - General Family Medicine 08/21/18 11/12/21 documented as of this encounter
--- OUTSIDE RECORDS SUMMARY | 2023-10-05 02:26 | XMS_ITS | Encounter Summary ---
Author Organization [facility] [place] [address] Care Team Providers Care Finishing Trimmer Name Role Phone Carla Lieberman MD Primary Care Provider [phone] Encounter Details Date Type Department Care Team (Latest Contact Info) Description 02/15/2010 8:27 AM EST - 02/15/2010 11:59 PM EST Hospital Encounter [place] [address] Ash Pinto MD [facility] [place] [address] Discharge Disposition: Home Social History Tobacco Use [...] on filedocumented in this encounter Care Teams Finishing Trimmer Relationship Specialty Start Date End Date Carla Lieberman MD [address] [place] [address] PCP - General 01/12/10 08/19/18 documented as of this encounter
--- OUTSIDE RECORDS SUMMARY | 2023-10-05 02:26 | XMS_ITS | Encounter Summary ---
Author Organization [facility] Address [facility] [place] [address] Care Team Providers Care Patient Scheduler Name Role Phone Carla Lieberman MD Primary Care Provider [phone] Encounter Details Date Type Department Care Team (Late st Contact Info) Description 04/16/2018 Ancillary Procedure [place] [phone] Gissell Davis, KENYATTA [address] [place] [address] Social History Tobacco Use Types Packs/Day Years [...] FILM LIBRARY STORAGE ONLY DX KNEE Routine 04/16/2018 12:00 AM EST documented in this encounter Results * Film Library- Storage Only DX Knee (04/16/2018 12:00 AM EST) Narrative ANAYELI - 03/17/2020 3:55 PM EST This exam is auto-finalizing. It's purpose is for storage only. Gissell Davis APRN IMG FILM LIBRARY ORD ERABLES DH [place], [place] documented in this encounter Visit Diagnoses Not on filedocumented in this encounter Care Teams Patient Scheduler Relationship Specialty Start Date End Date Carla Lieberman MD [address] [place] [address] PCP - General 01/12/10 08/19/18 documented as of this encounter
--- OUTSIDE RECORDS SUMMARY | 2023-10-05 02:26 | XMS_ITS | Encounter Summary ---
[place] [address] Care Team Providers Care Video Coordinator Name Role Phone Carla Lieberman MD Primary Care Provider [phone] Encounter Details Date Type Department Care Team (Late st Contact Info) Description 10/19/2017 Ancillary Procedure [place] [phone] Gissell Davis, KENYATTA [address] [place] [address] Social History Tobacco Use Types Packs/Day Years [...] FILM LIBRARY STORAGE ONLY DX KNEE Routine 10/19/2017 12:00 AM EDT documented in this encounter Results * Film Library- Storage Only DX Knee (10/19/2017 12:00 AM EDT) Narrative ANAYELI - 03/17/2020 3:49 PM EST This exam is auto-finalizing. It's purpose is for storage only. Gissell Davis APRN IMG FILM LIBRARY ORD ERABLES DH [place], [place] documented in this encounter Visit Diagnoses Not on filedocumented in this encounter Care Teams Video Coordinator Relationship Specialty Start Date End Date Carla Lieberman MD [address] [place] [address] PCP - General 01/12/10 08/19/18 documented as of this encounter
--- OUTSIDE RECORDS SUMMARY | 2023-10-05 02:26 | XMS_ITS | Encounter Summary ---
Author Organization [facility] Address [facility] [place] [address] Care Team Providers Care Central Office Installer Name Role Phone Carla Lieberman MD Primary Care Provider Encounter Details Date Type Department Care Team (Late st Contact Info) Description 03/19/2018 Ancillary Procedure [place] [phone] Gissell Davis, KENYATTA [address] [place] [address] Social History Tobacco Use Types Packs/Day Years [...] FILM LIBRARY STORAGE ONLY DX KNEE Routine 03/19/2018 12:00 AM EST documented in this encounter Results * Film Library- Storage Only DX Knee (03/19/2018 12:00 AM EST) Narrative ANAYELI - 03/17/2020 3:54 PM EST This exam is auto-finalizing. It's purpose is for storage only. Gissell Davis APRN IMG FILM LIBRARY ORD ERABLES DH [place], [place] documented in this encounter Visit Diagnoses Not on filedocumented in this encounter Care Teams Central Office Installer Relationship Specialty Start Date End Date Carla Lieberman MD [address] [place] [address] PCP - General 01/12/10 08/19/18 documented as of this encounter
--- OUTSIDE RECORDS SUMMARY | 2023-10-05 02:26 | XMS_ITS | Encounter Summary ---
Author Organization [facility] [place] [address] Care Team Providers Care Pit Clerk Name Role Phone Carla Lieberman MD Primary Care Provider [phone] Encounter Details Date Type Department Care Team (Late st Contact Info) Description 03/18/2010 8:00 AM EST Office [place] [address] Ash Pinto MD [facility] [place] [address] Discharge Disposition: Home Social History Tobacco Use Types Packs/Day Years Used Date Smoking Tobacco: Never Assessed Sex and Gender Information Value Date Recorded Sex Assigned at Not on file Gender Identity Not on file Sexual Orientation Not on file documented as of this encounter Plan of Treatment Not on file documented as of this encounter Procedures Procedure Name Priority Date/Time Associated Diagnosis Comments SCL 70 ANTIBODY Routine 03/18/2010 9:16 AM EST DIFFERENTIAL, AUTOMATED Routine 03/18/2010 9:16 AM EST MITOCHONDRIAL ANTIBODY, M2 Routine 03/18/2010 9:16 AM EST TISSUE TRANSGLUTAMINASE, IGA Routine 03/18/2010 9:16 AM EST SMOOTH MUSCLE ANTIBODY Routine 1 9:16 AM EST SEDIMENTATION RATE Routine 03/18/2010 9: 16 AM EST CBC (WITH DIFF) Routine 03/18/2010 9:16 AM EST EVERT ANTIBODY SCREEN Routine 03/18/2010 9 :16 AM EST PHOSPHORUS Routine 03/18/2010 9:16 AM EST MAGNESIUM Routine 03/18/2010 9:16 AM EST LIPASE Routine 03/18/2010 9:16 AM EST HEMOGLOBIN A1C Routine 03/18/2010 9:16 AM EST GAMMA GT Routine 03/18/2010 9:16 AM EST IGA Routine 03/18/2010 9:16 AM EST CORTISOL Routine 03/18/2010 9:16 AM EST COMPREHENSIVE METABOLIC PANEL Routine 03/18/2010 9:16 AM EST documented in this encounter Results * REFLEX LAB-A-DIFF (03/18/2010 9:16 AM EST) Neutrophil % 57.1 34.0 - 71.0 % CERNER MILLENNIUM Neutrophil Absolute 4.37 1.50 - 6.30 x10(3)/mcL CERNER MILLENNIUM Lymph % 31.3 19.0 - 53.0 % CERNER MILLENNIUM Lymphocytes Abs 2.4 1.0 - 3.6 x10(3)/mcL CERNER MILLENNIUM Monocyte % 7.8 4.0 - 13.0 % CERNER MILLENNIUM Monocyte Abs 0.6 0.2 - 1.0 x10(3)/mcL CERNER MILLENNIUM Eos % 3.4 0.0 - 7.0 % CERNER MILLENNIUM Eosinophils Abs 0.3 0.0 - 0.5 x10(3)/mcL CERNER MILLENNIUM Basophil % 0.3 0.0 - 2.0 % CERNER MILLENNIUM Baso Absolute 0.0 0.0 - 0.2 x10(3)/mcL CERNER MILLENNIUM Immature Gran % 0.10 0.00 - 0.66 % [facility] Comment: Immature granulocytes(IG's)percentage and absolute count will include metamyelocytes, myelocytes, and promyelocytes. Blood smears from CBCs yielding IG's will be scanned manually for concordance. If this scan disagrees with the automated IG or if promyelocytes are noted, a manual differential will be performed. Immature Gran Absolute 0.01 0.00 - 0.05 x10(3)/mcL [facility] Blood specimen (specimen) 03/18/2010 9:16 AM EST 03/18/2010 9:30 AM EST Ash Pinto MD HEMATOLOGY ORDERABLE S Performing Organization Address [facility] Phone Number [facility] * (ABNORMAL) IGA (03/18/2010 9:16 AM EST) IgA 490(H) 70 - 400 mg/dL [facility] Blood specimen (specimen) 03/18/2010 9:16 AM EST 03/18/2010 9:30 AM EST Ash Pinto MD CHEMISTRY ORDERABLES Performing Organization Address [facility] Phone Number [facility] * TISSUE TRANSGLUTAMINASE, IGA (03/18/2010 9:16 AM EST) TTG IgA Ab <4.0 <=3.9 u/ml [facility] Comment: Result Interpretation: Negative: ?<4 U/mL Weak Positive: ??4-10 U/mL Positive: ?>10 U/mL Blood specimen (specimen) 03/18/2010 9:16 AM EST 03/18/2010 11:57 AM EST Ash Pinto MD IMMUNOLOGY ORDERABLE S Performing Organization Address [facility] Phone Number [facility] * HEMOGLOBIN A1C (03/18/2010 9:16 AM EST) Hemoglobin A1c 5.6 4.3 - 6.1 % [facility] Estimated Average Glucose 114 mg/dL [facility] Comment: eAG equivalents for HbA1c percentages: HbA1c(%) [...] into estimated average glucose values. ??Diabetes Care 2008:31(8):4822-6265. Blood specimen (specimen) 03/18/2010 9:16 AM EST 03/18/2010 9:30 AM EST Ash Pinto MD CHEMISTRY ORDERABLES [facility] * SCL 70 AB-KIDDER (03/18/2010 9:16 AM EST) [facility] Scl-70 Ab <0.2 U [facility] Comment: -- REFERENCE VALUE -- <1.0 (Negative) > or =1.0 (Positive) Test Performed by: [employer] [place] [address] Fashion Marketer: Princess Canales, Ph.D. Blood specimen (specimen) 03/18/2010 9:16 AM EST 03/18/2010 11:49 AM EST Ash Pinto MD LAB SEND OUT ORDERAB LES [facility] * ANTI-SMOOTH MUSCLE ANTIBODY (03/18/2010 9:16 AM EST) Sm Muscle Ab (JUNE) Negative Negative [facility] Comment: Test Performed by: [facility] Dpt of Lab Med and Pathology [address] [place] [address] Fashion Marketer: Aaron Lechuga III, M.D. Blood specimen (specimen) 03/18/2010 9:16 AM EST 03/18/2010 11:48 AM EST Ash Pinto MD LAB SEND OUT ORDERAB LES Performing Organization Address [facility] Co de Phone Number [facility] * MITOCHONDRIAL ANTIBODIES, M2 (03/18/2010 9:16 AM EST) Mitochon Ab (JUNE) <0.1 <0.1 U [facility] Comment: Interpretation: Negative (<0.1) Test Performed by: [facility] Dpt of Lab Med and Pathology [address] [place] [address] Fashion Marketer: Aaron Lechuga III, M.D. Blood specimen (specimen) 03/18/2010 9:16 AM EST 03/18/2010 11:48 AM EST Ash Pinto MD LAB SEND OUT ORDERAB LES Performing Organization Address City/[facility]/ZIP Co de Phone Number [facility] * EVERT (03/18/2010 9:16 AM EST) EVERT Neg Neg [facility] Blood specimen (specimen) 03/18/2010 9:16 AM EST 03/18/2010 11:57 AM EST Ash Pinto MD LAB SEND OUT ORDERAB LES [facility]ER JONATHANENNIUM * SEDIMENTATION RATE, AUTOMATED (03/18/2010 9:16 AM EST) Sedimentation Rate Automated 15 0 - 20 mm/hr CERNER MILLENNIUM Blood specimen (specimen) 03/18/2010 9:16 AM EST 03/18/2010 9:30 AM EST Ahs Pinto MD HEMATOLOGY ORDERABLE S Performing Organization Address [facility] Co de Phone Number [facility] * (ABNORMAL) CBC (03/18/2010 9:16 AM EST) White Blood Cell 7.7 4.0 - 10.0 x10(3)/mc L CERNER MILLENNIUM Red Blood Cell 4.14 3.93 - 5.22 x10(6)/mc L CERNER MILLENNIUM Hemoglobin 11.6 11.2 - 15.7 gm/dL CERNER MILLENNIUM Hematocrit 35.8 34.0 - 45.0 % CERNER MILLENNIUM Mean Cell Volume 86.5 79.0 - 94.0 fL CERNER MILLENNIUM Mean Cell Hemoglobin 28.0 26.6 - 32.2 pg CERNER MILLENNIUM Mean Cell Hemoglobin Concentration 32.4 32.0 - 36.5 gm/dL CERNER MILLENNIUM Platelet 355 145 - 370 x10(3)/mc L CERNER MILLENNIUM RDW Standard Deviation 47.1(H) 35.0 - 46.0 fL CERNER MILLENNIUM RDW coefficient of variation 15.0(H) 10.9 - 14.4 % CERNER MILLENNIUM Mean Platelet Volume 10.0 9.0 - 12.0 fL CERNER MILLENNIUM Blood specimen (specimen) 03/18/2010 9:16 AM EST 03/18/2010 9:30 AM EST Ash Pinto MD HEMATOLOGY ORDERABLE S Performing Organization Address City/[facility]/ZIP Co de Phone Number CERANTONIO CASTILLOEN[facility]UM * CORTISOL (03/18/2010 9:16 AM EST) Cortisol 6.6 mcg/dL [facility] Comment: Reference ranges: ??AM (7-10am): ??6.2-19.4 mcg/dL ??PM (4-8pm): ??2.3-12.3 mcg/dL Blood specimen (specimen) 03/18/2010 9:16 AM EST 03/18/2010 9:30 AM EST Ash Pinto MD CHEMISTRY ORDERABLES Performing Organization Address [facility] de Phone Number [facility] * LIPASE (03/18/2010 9:16 AM EST) Lipase 21 0 - 60 unit/L [facility] Blood specimen (specimen) 03/18/2010 9:16 AM EST 03/18/2010 9:30 AM EST Ash Pinto MD CHEMISTRY ORDERABLES Performing Organization Address [facility] Phone Number [facility] * PHOSPHORUS (03/18/2010 9:16 AM EST) Phosphorus 3.1 2.5 - 4.5 mg/dL [facility] Blood specimen (specimen) 03/18/2010 9:16 AM EST 03/18/2010 9:30 AM EST Ash Pinto MD CHEMISTRY ORDERABLES Performing Organization Address [facility] de Phone Number [facility] * MAGNESIUM (03/18/2010 9:16 AM EST) Magnesium 0.88 0.69 - 1.07 mmol/L [facility] Blood specimen (specimen) 03/18/2010 9:16 AM EST 03/18/2010 9:30 AM EST Ash Pinto MD CHEMISTRY ORDERABLES Performing Organization Address [facility] de Phone Number JANNA VOGEL * GAMMA GT (03/18/2010 9:16 AM EST) Gamma Glutamyl Transferase 22 5 - 36 unit/L CERNER MILLENNIUM Blood specimen (specimen) 03/18/2010 9:16 AM EST 03/18/2010 9:30 AM EST Ash Pinto MD CHEMISTRY ORDERABLES [facility]AN[facility]OG[facility] * COMPREHENSIVE METABOLIC PANEL (NON-FASTING) (03/18/2010 9:16 AM EST) Glucose 96 <=199 mg/dL [facility]ERN[facility] MILLENNIUM Comment:Diabetes: >=200 mg/d L plus symptoms Blood Urea Nitrogen 13 8 - 18 mg/dL CERNER MILLENNIUM Creatinine 0.91 0.70 - 1.20 mg/dL CERNER MILLENNIUM Sodium 138 135 - 145 mmol/L CERNER MILLENNIUM Potassium 3.9 3.5 - 5.0 mmol/L [facility] MILLENNIUM Comment: Please note: ??Patients with WBC >100,000 may have falsely elevated Potassium levels. ??For accurate Potassium quantification in these patients send serum separator tube (gold top) for subsequent determinations. ??Contact the Clinical Chemistry Laboratory if there are any questions. Chloride 105 98 - 107 mmol/L CERNER MILLENNIUM Carbon Dioxide 25 22 - 31 mmol/L CERNER MILLENNIUM Anion Gap 8 5 - 15 mmol/L CERNER MILLENNIUM Calcium 9.5 8.5 - 10.5 mg/dL CERNER MILLENNIUM Protein, Total 7.3 6.4 - 8.3 gm/dL CERNER MILLENNIUM Albumin 4.2 3.2 - 5.2 gm/dL CERNER MILLENNIUM Aspartate Aminotransferase 23 0 - 30 unit/L CERNER MILLENNIUM Alanine Aminotransferase 30 0 - 30 unit/L CERNER MILLENNIUM Alkaline Phosphatase 70 40 - 104 unit/L CERNER MILLENNIUM Bilirubin, Total 0.7 0.2 - 1.3 mg/dL CERNER MILLENNIUM Bilirubin, Direct 0.1 0.0 - 0.3 mg/dL CERNER MILLENNIUM Est Glomerular Filtration Rate >60 >=60 [facility] MILLENNIUM Comment: The National Kidney Disease Education Program (NKDEP) has recommended all laboratories report estimated GFR (eGFR) along with plasma creatinine measurements to assist you with recognition of early kidney disease. Caveats: ??Plasma creatinine should be at steady-state (unchanged within the past week). ??Patient age > = 18 years, and for Americans multiply eGFR by 1.2. At present, NKDEP does NOT recommend using the MDRD equation for drug dosing purposes and pharmacists should continue to use their current dosing methods. In addition, numerical eGFR values greater than 60 ml/min/1.73 square meters should be treated as > 60, and not an exact number due to greater inaccuracies at these higher values. Per NKDEP, they classify normal renal function as any GFR >60ml/min/1.73 square meters; chronic kidney disease when GFR <60, and renal failure when GFR <15. ??This calculation may not be valid for patients with atypical muscle mass (very lean or obese), acute renal failure, and in patients with diabetic kidney disease. References: http://nkdep.nih.gov/resources/NKDEP_Suggestn4Labs_0606_508.pdf http://www.kidney.org/professionals/kls/pdf/faq_gfr.pdf Blood specimen (specimen) 03/18/2010 9:16 AM EST 03/18/2010 9:30 AM EST Ash Pinto MD CHEMISTRY ORDERABLES Performing Organization Address City/State/[facility] Phone Number [facility] documented in this encounter Visit Diagnoses Not on filedocumented in this encounter Care Teams Pit Clerk Relationship Specialty Start Date End Date Carla Lieberman MD [address] [place] [address] PCP - General 01/12/10 08/19/18 documented as of this encounter
--- OUTSIDE RECORDS SUMMARY | 2023-10-05 02:26 | XMS_ITS | Encounter Summary ---
Author Organization [facility] [place] [address] Care Team Providers Care Industrial Staff Nurse Name Role Phone Carla Lieberman MD Primary Care Provider Reason for Visit * Reason Onset Date Comments Other 07/08/2010 Encounter Details Date Type Department Care Team (Late st Contact Info) Description 07/08/2010 Telephone [place] [phone] Ash Pinto MD [facility] [address] [place] [address] Other Social History Tobacco Use Types Packs/Day Years [...] Telephone Encounter - Rica Zavala RN - 07/08/2010 1:[address] Pinto's instructions, order for Barium Swallow in eDH. Spoke with Antonia in Radiology - test scheduled for 07/12/10 at 1100. Pt here; notified of above; instructed strict NPO for 8 hrs prior to procedure - pt voices understanding. Dr. Pinto notified via e[facility] communications. documented in this encounter Plan of Treatment Not on file documented as of this encounter Visit Diagnoses Not on filedocumented in this encounter Care Teams Industrial Staff Nurse Relationship Specialty Start Date End Date Carla Lieberman MD [address] [place] [address] PCP - General 01/12/10 08/19/18 documented as of this encounter
--- OUTSIDE RECORDS SUMMARY | 2023-10-05 02:26 | XMS_ITS | Encounter Summary ---
Author Organization [facility] [place] [address] Care Team Providers Care Youth Nutritional Monitor Name Role Phone Carla Lieberman MD Primary Care Provider [phone] Reason for Visit * Reason Comments Emesis Encounter Details Date Type Department Care Team (Late st Contact Info) Description 07/08/2010 11:30 AM EDT [place] [phone] Ash Pinto MD [facility] [place] [address] Gastroparesis (Primary Dx) Discharge Disposition: Home Social History Tobacco Use [...] Sign Reading Time Taken Comments Blood Pressure 110/70 07/08/2010 12:26 PM EDT Pulse - - Temperature - - Respiratory Rate - - Oxygen Saturation - - Inhaled Oxygen Concentration - - Weight 89.4 kg (197 lb) 07/08/2010 12:26 PM EDT Height 160 cm (5' 3) 07/08/2010 12:26 PM EDT Body Mass Index 34.9 07/08/2010 12:26 PM EDT documented in this encounter Plan of Treatment Not on file documented as of this encounter Visit Diagnoses Diagnosis Gastroparesis- Primary documented in this encounter Care Teams Youth Nutritional Monitor Relationship Specialty Start Date End Date Carla Lieberman MD [address] [place] [address] PCP - General 01/12/10 08/19/18 documented as of this encounter
--- OUTSIDE RECORDS SUMMARY | 2023-10-05 02:26 | XMS_ITS | Encounter Summary ---
Author Organization [facility] Address [facility] [address] Care Team Providers Care Courier Name Role Phone Carla Lieberman MD Primary Care Provider [phone] Encounter Details Date Type Department Care Team (Late st Contact Info) Description 03/24/2017 Ancillary Procedure [place] [phone] Gissell Davis, KENYATTA [address] [place] [address] Social History Tobacco Use Types Packs/Day Years [...] FILM LIBRARY STORAGE ONLY DX KNEE Routine 03/24/2017 12:00 AM EST documented in this encounter Results * Film Library- Storage Only DX Knee (03/24/2017 12:00 AM EST) Narrative ANAYELI - 03/17/2020 3:44 PM EST This exam is auto-finalizing. It's purpose is for storage only. Gissell Davis APRN IMG FILM LIBRARY ORD ERABLES DH [place], [place] documented in this encounter Visit Diagnoses Not on filedocumented in this encounter Care Teams Courier Relationship Specialty Start Date End Date Carla Lieberman MD [address] [place] [address] PCP - General 01/12/10 08/19/18 documented as of this encounter
--- OUTSIDE RECORDS SUMMARY | 2023-10-05 02:26 | XMS_ITS | Encounter Summary ---
[place] [address] Care Team Providers Care Family Service Worker Name Role Phone Carla Lieberman MD Primary Care Provider [phone] Encounter Details Date Type Department Care Team (Late st Contact Info) Description 07/19/2017 Ancillary Procedure [place] [phone] Gissell Davis, KENYATTA [address] [place] [address] Social History Tobacco Use Types Packs/Day Years [...] FILM LIBRARY STORAGE ONLY DX KNEE Routine 07/19/2017 12:00 AM EDT documented in this encounter Results * Film Library- Storage Only DX Knee (07/19/2017 12:00 AM EDT) Narrative ANAYELI - 03/17/2020 3:46 PM EST This exam is auto-finalizing. It's purpose is for storage only. Gissell Davis APRN IMG FILM LIBRARY ORD ERABLES DH [place], [place] documented in this encounter Visit Diagnoses Not on filedocumented in this encounter Care Teams Family Service Worker Relationship Specialty Start Date End Date Carla Lieberman MD [address] [place] [address] PCP - General 01/12/10 08/19/18 documented as of this encounter
--- OUTSIDE RECORDS SUMMARY | 2023-10-05 02:26 | XMS_ITS | Encounter Summary ---
Author Organization [facility] Address [facility] [place] [address] Care Team Providers Care Defensive Fire Control Systems Operator Name Role Phone Carla Lieberman MD Primary Care Provider [phone] Encounter Details Date Type Department Care Team (Late st Contact Info) Description 04/03/2017 Ancillary Procedure [place] [phone] Gissell Davis, KENYATTA [address] [place] [address] Social History Tobacco Use Types Packs/Day Years [...] Associated Diagnosis Comments FILM LIBRARY STORAGE ONLY MR KNEE Routine 04/03/2017 12:00 AM EST documented in this encounter Results * Film Library- Storage Only MR Knee (04/03/2017 12:00 AM EST) Narrative ANAYELI - 03/17/2020 3:45 PM EST This exam is auto-finalizing. It's purpose is for storage only. Gissell Davis APRN IMG FILM LIBRARY ORD ERABLES DH [place], [place] documented in this encounter Visit Diagnoses Not on filedocumented in this encounter Care Teams Defensive Fire Control Systems Operator Relationship Specialty Start Date End Date Carla Lieberman MD [address] [place] [address] PCP - General 01/12/10 08/19/18 documented as of this encounter
--- OUTSIDE RECORDS SUMMARY | 2023-10-05 02:26 | XMS_ITS | Encounter Summary ---
[place] [address] Care Team Providers Care Piecer Name Role Phone Carla Lieberman MD Primary Care Provider [phone] Encounter Details Date Type Department Care Team (Late st Contact Info) Description 07/09/2018 Ancillary Procedure [place] [phone] Gissell Davis, KENYATTA [address] [place] [address] Social History Tobacco Use Types Packs/Day Years [...] FILM LIBRARY STORAGE ONLY DX KNEE Routine 07/09/2018 12:00 AM EDT documented in this encounter Results * Film Library- Storage Only DX Knee (07/09/2018 12:00 AM EDT) Narrative ANAYELI - 03/17/2020 3:56 PM EST This exam is auto-finalizing. It's purpose is for storage only. Gissell Davis APRN IMG FILM LIBRARY ORD ERABLES DH [place], [place] documented in this encounter Visit Diagnoses Not on filedocumented in this encounter Care Teams Piecer Relationship Specialty Start Date End Date Carla Lieberman MD [address] [place] [address] PCP - General 01/12/10 08/19/18 documented as of this encounter
--- OUTSIDE RECORDS SUMMARY | 2023-10-05 02:26 | XMS_ITS | Encounter Summary ---
[place] [address] Care Team Providers Care Senior Finance Manager Name Role Phone Carla Lieberman MD Primary Care Provider [phone] Encounter Details Date Type Department Care Team (Latest Contact Info) Description 02/15/2010 8:00 AM EST Procedure [place] [address] CLINIC, Carla Guo, capacitor assembler Disposition: Home Social History Tobacco Use Types [...] on filedocumented in this encounter Care Teams Senior Finance Manager Relationship Specialty Start Date End Date Carla Lieberman MD [address] [place] [address] PCP - General 01/12/10 08/19/18 documented as of this encounter
--- OUTSIDE RECORDS SUMMARY | 2023-10-05 02:26 | XMS_ITS | Encounter Summary ---
Author Organization [facility] Address [facility] [place] [address] Care Team Providers Care Coordinator Of Online Programs Name Role Phone Carla Lieberman MD Primary Care Provider [phone] Encounter Details Date Type Department Care Team (Latest Contact Info) Description 07/27/2010 9:43 AM EDT - 07/27/2010 11:59 PM EDT Hospital Encounter XRay at [address] [place] [address] CLINIC, Ash Huerta MD [facility] [place] [address] Discharge Disposition: Home Social History Tobacco Use [...] Sig Dispensed Refills Start Date End Date albuterol (PROVENTIL) 2.5 mg /3 mL (0.083 [...] 1 Capsule(s), PO, Three times daily 03/18/2010 scopolamine (TRANSDERM-SCOP) 1.[address] 1 patch onto the skin every 72 hours. 10 patch 5 07/08/2010 07/08/2011 CIS Free Text Med - Albuterol 03/18/2010 08/21/2018 FLUTICASONE PROPIONATE (FLOVENT HFA INHL) 03/18/2010 08/21/2018 MELATONIN ORAL 03/18/2010 08/21/2018 documented as of this encounter Plan of Treatment Not on file documented as of this encounter Visit Diagnoses Not on filedocumented in this encounter Administered Medications Inactive Administered Medications - up to 3 most recent administrations Medication Order MAR Action Action Date Dose Rate Site barium sulfate (EZPAQUE) oral suspension 355 mL 355 mL, Oral, ONCE PRN, 1 dose, Starting on Mon07/27/10 at 1030, Until Mon07/27/10 at 1000, Per Protocol, Routine Given 07/27/2010 10:00 AM EDT 300 mLs Barium Sulfate 210 % Susp 120 mL 120 mL, Oral, ONCE PRN, protocol, Starting on Mon07/27/10 at 1030, 1 dose, Until Mon07/27/10 at 1000 Given 07/27/2010 10:00 AM EDT 120 mLs Barium Sulfate Tab 700 mg 700 mg, Oral, ONCE PRN, 1 dose, Starting on Mon07/27/10 at 1031, Until Mon07/27/10 at 1000, protocol, Routine Given 07/27/2010 10:00 AM EDT 700 mg documented in this encounter Care Teams Coordinator Of Online Programs Relationship Specialty Start Date End Date Carla Lieberman MD [address] [place] [address] PCP - General 01/12/10 08/19/18 documented as of this encounter
--- OUTSIDE RECORDS SUMMARY | 2023-10-05 02:26 | XMS_ITS | Encounter Summary ---
[place] [address] Care Team Providers Care Land Developer Name Role Phone Carla Lieberman MD Primary Care Provider [phone] Encounter Details Date Type Department Care Team (Late st Contact Info) Description 02/15/2010 9:00 AM EST Procedure visit [place] [address] Social History Tobacco Use Types Packs/Day Years Used Date Smoking Tobacco: Never Assessed Sex and Gender Information Value Date Recorded Sex Assigned at Not on file Gender Identity Not on file Sexual Orientation Not on file documented as of this encounter Plan of Treatment Not on file documented as of this encounter Visit Diagnoses Not on filedocumented in this encounter Care Teams Land Developer Relationship Specialty Start Date End Date Carla Lieberman MD [address] [place] [address] PCP - General 01/12/10 08/19/18 documented as of this encounter
--- OUTSIDE RECORDS SUMMARY | 2023-10-05 02:26 | XMS_ITS | Encounter Summary ---
Author Organization [facility] [address] Care Team Providers Care Quality Associate Name Role Phone Carla Lieberman MD Primary Care Provider [phone] Encounter Details Date Type Department Care Team (Late st Contact Info) Description 07/08/2010 Orders [place] [address] Ash Pinto MD [facility] [place] [address] Nausea & vomiting (Primary Dx) Social History Tobacco Use Types Packs/Day Years [...] as of this encounter Visit Diagnoses Diagnosis Nausea & vomiting- Primary Nausea with vomiting documented in this encounter Care Teams Quality Associate Relationship Specialty Start Date End Date Carla Lieberman MD [address] [place] [address] PCP - General 01/12/10 08/19/18 documented as of this encounter
[2023-10-05] MEDS: Barium Sulfate 2% W/V-Creamy Vanilla Smoothie 450 ML BTL PO ×2 (08:51→08:52)
[2023-10-05 09:09] LABS: Abs Immature Grans 0.02 10^3/uL (0.0-0.06); Absolute Basophil Count 0.03 10^3/uL (0.0-0.2); Absolute Eosinophil Count 0.14 10^3/uL (0.0-0.7); Absolute Lymphocyte Count 1.98 10^3/uL (1.2-3.4); Absolute Monocyte Count 0.68 10^3/uL (0.1-0.8); Basophils % 0.4 %; Eosinophils % 1.7 %; HCT 36.1 % (36.0-46.0); HGB 12.4 g/dL (11.2-15.7); Immature Grans % 0.2 %; Lymphocytes % 24.6 %; MCH 34.7 pg (27.0-33.0); MCHC 34.3 % (32.0-36.0); MCV 101 fL (80-95); MPV 10.1 fL (8.0-11.0); Monocytes % 8.4 %; Neutrophils % 64.7 %; Platelet Count 300 10^3/uL (130-400); RBC 3.57 10^6/uL (3.93-5.22); RDW 12.6 % (11.7-14.6); RDW-SD 47.1 fL; WBC 8.05 10^3/uL (4.4-10.8)
[2023-10-05 09:12] LABS: ESR 9 mm/hr (0-30)
[2023-10-05 09:23] LABS: Hemoglobin A1C 5.3 % (<5.7)
[2023-10-05 09:34] LABS: ALT 10 U/L (14-59); AST 15 U/L (15-37); Albumin 3.1 g/dL (3.4-5.0); Alkaline Phosphatase 71 U/L (46-116); Anion Gap 11.4 mmol/L (3-11); BUN 6 mg/dL (7-18); Bilirubin, Total 1.15 mg/dL (0.2-1.0); CO2 23.6 mmol/L (21.0-32.0); CREATININE 0.8 mg/dL (0.55-1.02); Calcium 9.2 mg/dL (8.5-10.1); Chloride 106 mmol/L (98-107); Glucose 100 mg/dL (74-106); Potassium 3.9 mmol/L (3.5-5.1); Sodium 141 mmol/L (136-145); TSH (W/Ref FT4) 1.08 uIU/mL (0.36-3.74)
[2023-10-05] MEDS: Normal Saline - Diluent 50 ML VIAL IJ (10:56)
[2023-10-05] MEDS: Omnipaque 350 MG/ML 500 ML BTL-Imaging package 100 ML IJ (10:57)
[2023-10-05 11:00] LABS: Bilirubin Negative (Negative); Blood Negative (Negative); Clarity Clear (Clear); Glucose Negative (Negative); Ketones Negative (Negative); Leukocyte Esterase Negative (Negative); Nitrite Negative (Negative); Specific Gravity >= 1.030 (1.005-1.025); Urobilinogen 0.2 mg/dL (Up to 0.2); pH 5.5 (5-8)
--- NOTE | 2023-10-05 11:10 | DI.CT_ITS ---
Exam(s) CT ABDOMEN PELVIS W EXAM: CT ABDOMEN PELVIS W CLINICAL HISTORY: abd pain,wt loss,low BS,?pancreatic mass,r10.9 TECHNIQUE: Imaging Protocol: Axial computed tomography images with coronal and sagittal reformatted images were created and reviewed. CONTRAST MATERIAL: Intravenous: Omnipaque 350 Contrast volume:100 mL Oral: Yes COMPARISON: CT CT CHEST/ABD/PEL W from 12/30/[address] CHEST WO from 03/15/2023 FINDINGS: ABDOMEN: Lung Bases: There is thickening of the wall of the distal esophagus. There is deformity seen in the gastroesophageal junction which was not present in 2021 suspicious for interval surgery. This may re present a interval Nga procedure. Please correlate clinically. Liver: Normal density. No measurable mass. Portal, Superior Mesenteric, and Splenic Veins: Unremarkable. Gallbladder and Biliary Tract: Status post cholecystectomy. No significant biliary ductal dilatation . Pancreas: Normal density, no abnormal calcifications or inflammatory process. Spleen: Normal. Adrenals: No masses seen. Kidneys: Normal size, contour and axis. Bilateral nephrolithiasis. No obstructive uropathy. No mass es seen. Abdominal Aorta: Abdominal portion non-dilated. Atherosclerotic calcification is present. Bowel: No obstruction or bowel wall thickening. Appendix is unremarkable. Peritoneal Cavity: No ascites, collection or mesenteric inflammatory response. No free air. Lymph Nodes: Within normal limits. Bones: Within normal limits for the patient's age. Soft Tissues: Postsurgical changes are again seen in the anterior abdominal wall. PELVIS: Bladder: Symmetric distention, no gross wall thickening. Reproductive Organs: The patient is status post hysterectomy. There is a 2.4 x 1.6 cm cystic lesion at the cervical stump. Lymph Nodes: Within normal limits. Bones: Within normal limits for the patient's age. IMPRESSION: 1. Thickening of the wall of the distal esophagus. This may represent an inflammatory infectious eso phagitis. Please correlate clinically. 2. Interval deformity of the gastroesophageal junction which may reflect a Nga procedure. Please correlate clinically. Mass or abscess may also be considered in the absence of surgery. Endoscopy a nd/or upper GI barium examination should be considered for further evaluation. 3. 2.4 x 1.6 cm cystic lesion at the cervical stump status post hysterectomy. Pelvic ultrasound is r ecommended for further evaluation. 4. Normal appearance of the pancreas. RADIATION DOSE DELIVERED: Total DLP DATA REPOSITORY: All CT scans at this facility are submitted to the National Radiology Data Registry (NRDR) Dose Index Registry (DIR) with the [employer] (ACR). RADIATION OPTIMIZATION: All CT scans at this facility use at least one of these dose optimization te chniques: automated exposure control; mA and/or kV adjustment per patient size (includes targeted exa ms where dose is matched to clinical indication); or iterative reconstruction.
[2023-10-06 09:14] LABS: HIV-1/2 Ag & Ab Screen Negative (Negative)
[2023-10-06 09:41] LABS: Hepatitis C Ab w Rflx HCV PCR Negative (Negative)
[2023-10-06 09:57] LABS: HBs Antibody, Quant <3.1 mIU/mL (See Note); Hep B Surface Ab Negative (See Note); Hepatitis B Core Antibody Negative (Negative); Hepatitis B Surface Antigen Negative (Negative)
== END 2023-10-05 02:42 ==
LOC: DI 02:22
PROVIDERS: PCP Nurse Practitioner Family; Visit Provider Nurse Practitioner Family
DX: Z11.59 Encounter for screening for other viral diseases (principal); Z11.4 Encounter for screening for human immunodeficiency virus [HIV]; E11.9 Type 2 diabetes mellitus without complications; R93.3 Abnormal findings on diagnostic imaging of other parts of digestive tract
CPT/HCPCS: 80053; 85652; 86704; 86706; 86803; 87340; 87389; 74177; 81003; 83036; 84443; 85025

== ENCOUNTER 2023-10-06 01:55 | Outpatient (CLI) | payer MEDICARE, SELFPAY ==
--- OUTSIDE RECORDS SUMMARY | 2023-10-06 02:01 | XMS_ITS | Encounter Summary ---
Author Organization [facility] Address [address] [place] [address] Care Team Providers Care Shot Packer Name Role Phone Unknown, Provider Primary Care Provider [phone] Carla Lieberman MD Primary Care Provider [phone] Encounter Details Date Type Department Care Team (Late st Contact Info) Description 05/04/2006 Results Only [facility] - Maple conversion [address] [place] [address] Dean Carrillo PA Social History Tobacco Use [...] ? BARBARA CHAPMAN ? Accession #: ? [id number] : ? 1970 (Age: 35) ??F ?Collect Date: ? 05/04/2006 Location: ? [facility] ? Receive Date: ? 05/08/2006 Provider: ?DEAN LEE Copy to: ? Specimen/Source: ?ThinPrep Pap Test, Cervix/Endocervix, processed on [employer] ThinPrep Imaging System, with manual evaluation Last [...] Dean LEE PATHOLOGY ORDERABLES Performing Organization Address City/State/[facility] Co de Phone Number DAIN GOMEZ [address] [place] [address] documented in this encounter Visit Diagnoses Not on filedocumented in this encounter Care Teams Shot Packer Relationship Specialty Start Date End Date Unknown, Provider, PCP - General 07/17/08 01/27/10 Carla Lieberman MD [address] [place] [address] PCP - General 07/16/08 07/16/08 documented as of this encounter
--- OUTSIDE RECORDS SUMMARY | 2023-10-06 02:01 | XMS_ITS | Encounter Summary ---
Author Organization [facility] Address [address] [place] [address] Care Team Providers Care Iv Rn Name Role Phone Unknown, Provider Primary Care Provider [phone] Carla Lieberman MD Primary Care Provider Encounter Details Date Type Department Care Team (Late st Contact Info) Description 10/01/1999 Results Only [facility] - Maple conversion [address] [place] [address] Jeremi Barba MD [address] [place] [address] Social History Tobacco Use Types Packs/Day Years [...] ? BARBARA CHAPMAN ? Accession #: ? [id number] ? : ? 1970 (Age: 29) ??F [...] Barba MD PATHOLOGY ORDERABLE S [facility]IN [facility] [address] [place] [address] documented in this encounter Visit Diagnoses Not on filedocumented in this encounter Care Teams Iv Rn Relationship Specialty Start Date End Date Unknown, Provider, PCP - General 07/17/08 01/27/10 Carla Lieberman MD [address] [place] [address] PCP - General 07/16/08 07/16/08 documented as of this encounter
--- OUTSIDE RECORDS SUMMARY | 2023-10-06 02:01 | XMS_ITS | Encounter Summary ---
Author Organization [facility] Address [address] [place] [address] Care Team Providers Care Customer Service Advocate Name Role Phone Mary Carrillo Primary Care Provider Unavailab Gissell Muñiz NP Primary Care Provider [phone] Encounter Details Date Type Department Care Team (Late st Contact Info) Description 08/19/2019 Lab Requisition [facility] Pathology & Laboratory Medicine - [facility] [address] [place], [place] [address] Outr Resulting Lab, Provider Social History Tobacco [...] Outr Resulting Lab MICROBIOLOGY - GENERAL ORDERABLES [facility] [address] [place] [address] * COVID-19 TESTING (08/19/2019 9:51 EDT) COVID-19 rt-PCR Result Negative Negative 08/20/2019 0:10 EDT [facility] Comment: This test has [...] history, and epidemiological information. Performed on the [employer] Fusion instrument Performing Lab [place] [facility] 08/20/2019 0:10 EDT [facility] Swab 08/19/2019 9:51 EDT 08/19/2019 15:42 EDT Provider Outr Resulting Lab MICROBIOLOGY - GENERAL ORDERABLES [facility] [address] [place] [address] documented in this encounter Visit Diagnoses Not on filedocumented in this encounter Care Teams Customer Service Advocate Relationship Specialty Start Date End Date Mary Carrillo PA PCP - General 01/28/11 12/05/19 Gissell Davis NP [address] [place] [phone] PCP - General 12/06/19 documented as of this encounter
--- OUTSIDE RECORDS SUMMARY | 2023-10-06 02:01 | XMS_ITS | Clinical Summary ---
Author Organization [facility] Address [address] [place] [address] Care Team Providers Care Network Control Technician Name Role Phone Gissell Davis NP Primary Care Provider [phone] Encounters Date Type Department Care Team Description 10/05/2023 Lab Requisition [facility] Pathology & Laboratory [address] [address] Outr Resulting Lab, Provider 10/05/2023 Lab Requisition [facility] Pathology Laboratory [address] [address] Outr Resulting Lab, Provider from Last 3 Months Social History Tobacco Use Types Packs/Day Years [...] C Antibody Negative Negative 04/07/2023 18:04 EST [facility] Blood VENOUS BLOOD / Unknown 04/07/2023 10:15 EST 04/07/2023 16:32 EST Provider Outr Resulting Lab CHEMISTRY & BLOOD GAS ORDERABLES [facility] [address] [place] [address] from Last 3 Months or Most Recently Relevant to Health Maintenance Care Teams Network Control Technician Relationship Specialty Start Date End Date Gissell Davis NP [address] [place] [phone] PCP - General 12/06/19
--- OUTSIDE RECORDS SUMMARY | 2023-10-06 02:01 | XMS_ITS | Encounter Summary ---
Author Organization [facility] Address [address] [place] [address] Care Team Providers Care Care Transition Coordinator Name Role Phone Mary Carrillo Primary Care Provider Unavailab le Encounter Details Date Type Department Care Team (Late st Contact Info) Description 07/19/2013 Results Only [facility] Laboratory Services - [facility] ([facility]) [address] [place], [place] [id number] Garett Barba, DO [address] [facility] [address] [place] [address] Social History Tobacco Use Types [...] ? BARBARA CHAPMAN ? Accession #: ? [id number] ? : ? 1970 (Age: 43) ??F [...] PATHOLOGY ORDER TRE [facility] [address] [place] [address] documented in this encounter Visit Diagnoses Not on filedocumented in this encounter Care Teams Care Transition Coordinator Relationship Specialty Start Date End Date Mary Carrillo PA PCP - General 01/28/11 12/05/19 documented as of this encounter
--- OUTSIDE RECORDS SUMMARY | 2023-10-06 02:01 | XMS_ITS | Encounter Summary ---
Author Organization [facility] Address [address] [place] [address] Care Team Providers Care Beet Topper Name Role Phone Carla Reinoso MD Primary Care Provider [phone] Encounter Details Date Type Department Care Team (Late st Contact Info) Description 07/15/2008 Orders Only [facility] Laboratory Services - [facility] ([facility]) [address] [place], [place] [address] Garett Barba, [address] [facility] [address] [place], [place] [id number] Social History Tobacco Use Types Packs/Day Years [...] CHAPMAN, BARBARA A ? Accession #: ? [id number] ? : ? 1970 (Age: 38) ??F [...] Garett Barba DO PATHOLOGY ORDER TRE DAIN [facility] [address] [place] [address] documented in this encounter Visit Diagnoses Not on filedocumented in this encounter Care Teams Beet Topper Relationship Specialty Start Date End Date Carla Reinoso MD [address] [place], [place] [id number] PCP - General 07/16/08 07/16/08 documented as of this encounter
--- OUTSIDE RECORDS SUMMARY | 2023-10-06 02:01 | XMS_ITS | Encounter Summary ---
Author Organization [facility] Address [address] [place] [address] Care Team Providers Care Electrical And Radio Mock Up Mechanic Name Role Phone Gissell Davis WELCOME WAGON HOST/HOSTESS Primary Care Provider [phone] Encounter Details Date Type Department Care Team (Late st Contact Info) Description 10/05/2023 Lab Requisition [facility] Pathology & Laboratory Medicine - [address] [address] Outr Resulting Lab, Provider Social History Tobacco [...] as of this encounter Plan of Treatment Pending Results Name Type Priority Associated Diagnoses Date /Time HEPATITIS B PROFILE Lab Routine 10/04 8:58 EDT HEPATITIS C AB W REFLEX TO H CV RNA BY PCR Lab Routine 10/05/2023 8:58 EDT documented as of this encounter Visit Diagnoses Not on filedocumented in this encounter Care Teams Electrical And Radio Mock Up Mechanic Relationship Specialty Start Date End Date Gissell Davis NP [address] [place] [phone] PCP - General 12/06/19 documented as of this encounter
--- OUTSIDE RECORDS SUMMARY | 2023-10-06 02:01 | XMS_ITS | Encounter Summary ---
Author Organization [facility] Address [address] [place] [address] Care Team Providers Care Long Winder Tender Name Role Phone Mary Carrillo Primary Care Provider Unavailab le Encounter Details Date Type Department Care Team (Late st Contact Info) Description 03/18/[address] [facility] [phone] Garett Barba, DO [address] [facility] [address] [place] [address] Social History Tobacco Use Types Packs/Day Years [...] ? BARBARA CHAPMAN ? Accession #: ? [id number] ? : ? 1970 (Age: 44) ??F ? Collect Date: ? 03/18/2015 ? Location: ? [facility] ? Receive Date: ? 03/18/2015 ? Provider: GARETT BARBA DO Copy to: VANESSA THOMPSON VINEYARD SUPERVISOR ? Final Pathologic Diagnosis: A. STOMACH, ANTRUM, [...] eosinophilic esophagitis. H PYLORI (Rabbit Monoclonal (SP48), [place]) (A1): Negative NOTE: ??One or more of [...] performance characteristics have been determined by [facility]. ??The positive and negative controls worked [...] C1. 03/19/2015 8:59 AM End of Report [facility] 03/18/2015 20:2 9 EST 03/18/2015 20:29 EST Garett Barba DO PATHOLOGY ORDER TRE [facility] [address] [place] [address] documented in this encounter Visit Diagnoses Not on filedocumented in this encounter Care Teams Long Winder Tender Relationship Specialty Start Date End Date Mary Carrillo PA PCP - General 01/28/11 12/05/19 documented as of this encounter
--- OUTSIDE RECORDS SUMMARY | 2023-10-06 02:01 | XMS_ITS | Encounter Summary ---
Author Organization [facility] Address [address] [place] [address] Care Team Providers Care Patternmaker Grader Name Role Phone Unknown, Provider Primary Care Provider [phone] Carla Reinoso MD Primary Care Provider [phone] Encounter Details Date Type Department Care Team (Late st Contact Info) Description 06/10/2004 Results Only [facility] - Maple conversion [address] [place] [address] Garett Barba, DO [address] [facility] ,[address] [place], [place] [address] Social History Tobacco Use Types Packs/Day Years [...] BARBARA CHAPMAN [place] ? Accession #: ? [id number] ? : ? 1970 (Age: 33) ??F ? Collect Date: ? 06/10/2004 ? Location: ? [facility] ? Receive Date: ? 06/11/2004 ? Provider: GARETT ABRBA DO Copy to: CARLA REINOSO MD ? [...] PATHOLOGY ORDER TRE [facility] [address] [place] [address] documented in this encounter Visit Diagnoses Not on filedocumented in this encounter Care Teams Patternmaker Grader Relationship Specialty Start Date End Date Unknown, Provider, PCP - General 07/17/08 01/27/10 Carla Reinoso MD [address] [place] [address] PCP - General 07/16/08 07/16/08 documented as of this encounter
--- OUTSIDE RECORDS SUMMARY | 2023-10-06 02:01 | XMS_ITS | Encounter Summary ---
Author Organization [facility] Address [address] [place] [address] Care Team Providers Care Electrical Maintenance Technician Name Role Phone Gissell Davis ADVISOR [employer] FOUNDER Primary Care Provider [phone] Encounter Details Date Type Department Care Team (Late st Contact Info) Description 10/05/2023 Lab Requisition [facility] Pathology & Laboratory Medicine - [address] [address] Outr Resulting Lab, Provider Social History Tobacco [...] Name Type Priority Associated Diagnoses Date /Time HIV 1/2 ANTIGEN AND ANTIBODY , 4TH GENERATION Lab Routine 10/05/2023 8:58 EDT documented as of this encounter Visit Diagnoses Not on filedocumented in this encounter Care Teams Electrical Maintenance Technician Relationship Specialty Start Date End Date Gissell Davis NP [address] [place] [phone] PCP - General 12/06/19 documented as of this encounter
--- OUTSIDE RECORDS SUMMARY | 2023-10-06 02:01 | XMS_ITS | Encounter Summary ---
Author Organization [facility] Address [address] [place] [address] Care Team Providers Care Anesthetic Assistant Name Role Phone Mary Carrillo Primary Care Provider Unavailab le Encounter Details Date Type Department Care Team (Late st Contact Info) Description 11/14/2013 Results Only [facility] Laboratory Services - [facility] ([facility] [address] [place], [place] [address] Mike Wade MD [address] [place] [phone] Social History Tobacco Use Types Packs/Day [...] ? BARBARA CHAPMAN ? Accession #: ? [id number] ? : ? 1970 (Age: 43) ??F ? Collect Date: ? 11/14/2013 ? Location: ? [facility] ? Receive Date: ? 11/15/2013 ? Provider: MIKE WADE MD Copy to: VANESSA THOMPSON OFFICE ASSISTANT RECEPTIONIST ? Final Pathologic Diagnosis: GASTROESOPHAGEAL JUNCTION, BIOPSY: [...] MD PATHOLOGY ORDERABLES [facility] [address] [place] [address] documented in this encounter Visit Diagnoses Not on filedocumented in this encounter Care Teams Anesthetic Assistant Relationship Specialty Start Date End Date Mary Carrillo PA PCP - General 01/28/11 12/05/19 documented as of this encounter
--- OUTSIDE RECORDS SUMMARY | 2023-10-06 02:01 | XMS_ITS | Referral Summary ---
Author Organization [facility] Address [address] [place] [address] Care Team Providers Care Rubber And Pounder Name Role Phone Gissell Davis NP Primary Care Provider [phone] Encounters Date Type Department Care Team Description 10/05/2023 Lab Requisition [facility] Pathology & Laboratory [address] [address] Outr Resulting Lab, Provider 10/05/2023 Lab Requisition [facility] Pathology & Laboratory [address] [address] Outr Resulting Lab, Provider from Last 3 [...] Antibody Negative Negative 04/07/2023 18:04 EST [facility] Blood VENOUS BLOOD / Unknown 04/07/2023 10:15 EST 04/07/2023 16:32 EST Provider Outr Resulting Lab CHEMISTRY & BLOOD GAS ORDERABLES [facility] [address] [place] [address] from Last 3 Months or Most Recently Relevant to Health Maintenance Care Teams Rubber And Pounder Relationship Specialty Start Date End Date Gissell Davis NP [address] [place] [phone] PCP - General 12/06/19
--- OUTSIDE RECORDS SUMMARY | 2023-10-06 02:01 | XMS_ITS | Encounter Summary ---
Author Organization [facility] Address [address] [place] [address] Care Team Providers Care Pole Lift Operator Name Role Phone Unknown, Provider Primary Care Provider [phone] Carla Reinoso MD Primary Care Provider [phone] Encounter Details Date Type Department Care Team (Late st Contact Info) Description 03/08/2006 Results Only [facility] - Maple conversion [address] [place] [address] Taylor Zayas MD [address] [place] [address] [place] [address] Social History Tobacco Use Types Packs/Day Years [...] ? BARBARA CHAPMAN ? Accession #: ? [id number] ? : ? 1970 (Age: 35) ??F ? Collect Date: ? 03/08/2006 ? Location: ? [facility] ? Receive Date: ? 03/08/2006 ? Provider: TAYLOR ZAAYS MD Copy to: CARLA REINOSO MD ? [...] two cassettes as (A1) and (A2). ??(Dr. Singh)/[facility] End of Report [facility] 03/08/2006 03/08/2006 15: 30 EST Taylor Zayas MD PATHOLOGY ORDERABLES [facility] [address] [place] [address] documented in this encounter Visit Diagnoses Not on filedocumented in this encounter Care Teams Pole Lift Operator Relationship Specialty Start Date End Date Unknown, Provider, PCP - General 07/17/08 01/27/10 Carla Reinoso MD [address] [address] PCP - General 07/16/08 07/16/08 documented as of this encounter
--- OUTSIDE RECORDS SUMMARY | 2023-10-06 02:01 | XMS_ITS | Encounter Summary ---
Author Organization [facility] Address [address] [place] [address] Care Team Providers Care Barrel Polisher Name Role Phone Susan Gissell Katherine HAAS Primary Care Provider [phone] Encounter Details Date Type Department Care Team (Late st Contact Info) Description 12/09/2019 Lab Requisition [facility] Pathology & Laboratory Medicine - [address] [address] Anni Mast MD [address] [place], [place] [phone] Benign lipomatous neoplasm of skin and subcutaneous [...] Lipoma with focal fat necrosis. 12/12/2019 18:12 [facility] Attestation By the signature below, the attending physician certifies that they have 1) personally conducted a gross and/or microscopic examination of the described specimen(s), and/or personally interpreted the results of laboratory testing of the described specimen(s), and 2) personally rendered or confirmed the above diagnosis. 12/12/2019 18:12 [facility] at 1812 Clinical History Screening; Lipoma right arm 12/12/2019 18:12 T [facility] Gross Description A. Received [...] with no areas of hemorrhage or necrosis. Relocation Commissioner sections are submitted in B1-B3. JESUS MURILLO(ASC) 12/09/2019 10:05 12/12/2019 18:12 [facility] Performing Lab [facility] 12/12/2019 18:12 [facility] Scanned Images 12/12/2019 18:12 [facility] Tissue SOFT TISSUE / Unknown 12/06/2019 13:32 EDT 12/09/2019 7:45 EDT Tissue specimen (specimen) SOFT TISSUE / Unknown 12/06/2019 13:32 EDT 12/09/2019 7:45 EDT Anni Mast MD PATHOLOGY ORDERABLES [facility] [address] [place] [address] documented in this encounter Visit Diagnoses Diagnosis 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
--- OUTSIDE RECORDS SUMMARY | 2023-10-06 02:01 | XMS_ITS | Encounter Summary ---
Author Organization [facility] Address [address] [place] [address] Care Team Providers Care Die Reamer Name Role Phone Carla Lieberman MD Primary Care Provider [phone] Encounter Details Date Type Department Care Team (Late st Contact Info) Description 01/26/2011 Results Only [facility] [phone] Daniel Conti MD [address] [place] [address] Social History Tobacco Use Types Packs/Day Years [...] ? BARBARA CHAPMAN ? Accession #: ? [id number] ? : ? 1970 (Age: 40) ??F [...] are no nodules identified within the myometrium. ??Tennis Instructor sections, including approximately 70% of the discernible endometrium, are submitted as follows: BLOCK MACK A1-A3 ?Endometrium to myometrium A4 ?Myometrium and serosa (Ankit Coughlin)/radha End of Report DAIN [facility] 01/26/2011 01/26/2011 17: 31 EST Daniel Conti MD PATHOLOGY ORDERABLES DAIN [facility] [address] [place] [address] documented in this encounter Visit Diagnoses Not on filedocumented in this encounter Care Teams Die Reamer Relationship Specialty Start Date End Date Carla Lieberman MD [address] [place], [place] [phone] PCP - General 01/03/11 01/27/11 documented as of this encounter
--- OUTSIDE RECORDS SUMMARY | 2023-10-06 02:01 | XMS_ITS | Encounter Summary ---
Author Organization [facility] Address [address] [place] [address] Care Team Providers Care Quantitative Research Analyst Name Role Phone Susan Gissell Katherine HAAS Primary Care Provider [phone] Encounter Details Date Type Department Care Team (Late st Contact Info) Description 04/07/2023 Lab Requisition [facility] Pathology & Laboratory Medicine - [address] [phone] Outr Resulting Lab, Provider Social History Tobacco [...] C Antibody Negative Negative 04/07/2023 18:04 EST [facility] Blood VENOUS BLOOD / Unknown 04/07/2023 10:15 EST 04/07/2023 16:32 EST Provider Outr Resulting Lab CHEMISTRY & BLOOD GAS ORDERABLES [facility] [address] [place] [address] documented in this encounter Visit Diagnoses Not on filedocumented in this encounter Care Teams Quantitative Research Analyst Relationship Specialty Start Date End Date Gissell Davis NP [address] [place] [phone] PCP - General 12/06/19 documented as of this encounter
--- OUTSIDE RECORDS SUMMARY | 2023-10-06 02:01 | XMS_ITS | Encounter Summary ---
Author Organization [facility] Address [address] [place] [address] Care Team Providers Care Aerospace Project Manager Name Role Phone Mary Carrillo Primary Care Provider Unavailab le Encounter Details Date Type Department Care Team (Late st Contact Info) Description 09/28/2016 Results Only [facility] [phone] Garett Barba, DO [address] [facility] [address] [place] [address] Social History Tobacco Use Types Packs/Day Years [...] ? BARBARA CHAPMAN ? Accession #: ? [id number] ? : ? 1970 (Age: 46) ??F ? Collect Date: ? 09/28/2016 ? Location: ? [facility] ? Receive Date: ? 09/28/2016 ? Provider: GARETT BARBA DO Copy to: VANESSA THOMPSON MIXER MACHINE FEEDER ? Final Pathologic Diagnosis: A. DUODENUM, BIOPSY: [...] ANTIBODY(CLONE)(BLO CK):RESULT H. pylori (Rabbit Monoclonal (SP48), [place]) (B1): ??Negative ? NOTE: ??One or more [...] performance characteristics have been determined by the [facility]. ??The positive and negative controls worked appropriately. [...] EDT Garett Barba DO PATHOLOGY ORDER TRE [facility] [address] [place] [address] documented in this encounter Visit Diagnoses Not on filedocumented in this encounter Care Teams Aerospace Project Manager Relationship Specialty Start Date End Date Mary Carrillo PA PCP - General 01/28/11 12/05/19 documented as of this encounter
--- OUTSIDE RECORDS SUMMARY | 2023-10-06 02:01 | XMS_ITS | Encounter Summary ---
Author Organization [facility] Address [address] [place] [address] Care Team Providers Care Ocean Biologist Name Role Phone Mary Carrillo Primary Care Provider Unavailab le Encounter Details Date Type Department Care Team (Latest Contact Info) Description 07/19/2013 15:29 EDT - 07/19/2013 23:59 EDT Hospital Encounter [address] [address] Unknown, Provider, Discharge Disposition: Home or Self Care Social History Tobacco Use Types Packs/Day Years Used Date Smoking Tobacco: Never Assessed Sex and Gender Information Value Date Recorded Sex Assigned at Not on file Gender Identity Not on file Sexual Orientation Not on file documented as of this encounter Discharge Disposition Disposition Code Departure Means Destination Home or Self [facility] documented in this encounter Plan of Treatment Not on file documented as of this encounter Visit Diagnoses Not on filedocumented in this encounter Care Teams Ocean Biologist Relationship Specialty Start Date End Date Mary Carrillo PA PCP - General 01/28/11 12/05/19 documented as of this encounter
--- OUTSIDE RECORDS SUMMARY | 2023-10-06 02:01 | XMS_ITS | Encounter Summary ---
Author Organization [facility] Address [address] [place] [address] Care Team Providers Care Fish Hatchery Inspector Name Role Phone Unknown, Provider Primary Care Provider Carla Lieberman MD Primary Care Provider Encounter Details Date Type Department Care Team (Late st Contact Info) Description 07/12/1999 Results Only [facility] - Maple conversion [address] [place] [address] Ed Mosqueda MD [address] HER [address] [place] [phone] Social History Tobacco Use Types Packs/Day [...] [facility] Report Status (Note) FINAL [id number] ? TEST PERFORMED OR REFERRED BY MML ? [facility] ? [address] ? [place], [place] ??[address] ? DAIN GOME[facility] 07/12/1999 10:3 0 EDT 07/26/1999 15:56 EDT Ed Mosqueda MD HISTORICAL LAB FOR S Q LOAD [facility] [address] [place] [address] * CYTOPATHOLOGY (07/12/1999 0:00 EDT) Pathology Report: CYTOPATHOLOGY REPORT Reports generated via electronic interface contain original data; however they are lacking the format of the original report. Caution should be taken when reading/interpreti ng unformatted reports. Name: ? BARBARA CHAPMAN ? Accession #: ? [id number] : ? 1970 (Age: 29) ??F ?Collect [...] Mosqueda MD PATHOLOGY ORDERABLES Performing Organization Address City/State/[facility] Co de Phone Number DAIN [facility] [address] [place] [address] documented in this encounter Visit Diagnoses Not on filedocumented in this encounter Care Teams Fish Hatchery Inspector Relationship Specialty Start Date End Date Unknown, Provider, PCP - General 07/17/08 01/27/10 Carla Lieberman MD [address] [place] [address] PCP - General 07/16/08 07/16/08 documented as of this encounter
--- OUTSIDE RECORDS SUMMARY | 2023-10-06 02:01 | XMS_ITS | Encounter Summary ---
Author Organization [facility] Address [address] [place] [address] Care Team Providers Care Scarifier Operator Name Role Phone Mary Carrillo Primary Care Provider Unavailab le Encounter Details Date Type Department Care Team (Late st Contact Info) Description 12/28/2010 Results Only [facility] [phone] Daniel Conti MD [address] [place] [address] Social History Tobacco Use Types Packs/Day Years [...] ? BARBARA CHAPMAN ? Accession #: ? [id number] ? : ? 1970 (Age: 40) ??F [...] MD PATHOLOGY ORDERABLES [facility] [address] [place] [address] * SURGICAL PATHOLOGY (12/28/2010 0:00 EST) Pathology Report: SURGICAL PATHOLOGY REPORT Reports generated via electronic interface contain original data; however they are lacking the format of the original report. Caution should be taken when reading/interpreting unformatted reports. Name: ? BARBARA CHAPMAN ? Accession #: ? [id number] ? : ? 1970 (Age: 40) ??F [...] reviewed at the intradepartmental consultation conference. (Dr. Carcamo)/[facility] Document reviewed and electronically signed by: Symone [...] Conti MD PATHOLOGY ORDERABLES Performing Organization Address City/State/[facility] Co de Phone Number DAIN [facility] [address] [place] [address] documented in this encounter Visit Diagnoses Not on filedocumented in this encounter Care Teams Scarifier Operator Relationship Specialty Start Date End Date Mary Carrillo PA PCP - General 01/28/10 01/02/11 documented as of this encounter
--- OUTSIDE RECORDS SUMMARY | 2023-10-06 02:01 | XMS_ITS | Encounter Summary ---
Author Organization [facility] Address [address] [place] [address] Care Team Providers Care Conduit Cleaner Name Role Phone Unknown, Provider Primary Care Provider Carla Reinoso MD Primary Care Provider [phone] Mary Carrillo Primary Care Provider Unavailab le Encounter Details Date Type Department Care Team (Late st Contact Info) Description 03/10/2005 Results Only [facility] - Maple conversion [address] [place] [address] Taylor Zayas MD [address] [place] [address] [place] [address] Social History Tobacco Use Types Packs/Day Years [...] ? BARBARA CHAPMAN ? Accession #: ? [id number] ? : ? 1970 (Age: 34) ??F [...] tissue, submitted entirely in one cassette. (Jayson Herrmann)/[facility] End of Report [facility] 03/10/2005 03/11/2005 9:2 5 EST Taylor Zayas MD PATHOLOGY ORDERABLES [facility] [address] [place] [address] documented in this encounter Visit Diagnoses Not on filedocumented in this encounter Care Teams Conduit Cleaner Relationship Specialty Start Date End Date Unknown, Provider, PCP - General 07/17/08 01/27/10 Carla Reinoso MD [address] [address] PCP - General 07/16/08 07/16/08 Mary Carrillo PA PCP - General 01/28/10 01/02/11 documented as of this encounter
--- OUTSIDE RECORDS SUMMARY | 2023-10-06 02:01 | XMS_ITS | Encounter Summary ---
Author Organization [facility] Address [address] [place] [address] Care Team Providers Care Welder/Fitter Name Role Phone Mary Carrillo Primary Care Provider Unavailab le Encounter Details Date Type Department Care Team (Latest Contact Info) Description 09/28/2016 11:13 EDT - 09/28/2016 23:59 EDT Hospital Encounter [address] [address] Unknown, Provider, Discharge Disposition: Home or Self Care Social History Tobacco Use Types Packs/Day Years Used Date Smoking Tobacco: Never Assessed Sex and Gender Information Value Date Recorded Sex Assigned at Not on file Gender Identity Not on file Sexual Orientation Not on file documented as of this encounter Discharge Disposition Disposition Code Departure Means Destination Home or Self Nursing Home documented in this encounter Plan of Treatment Not on file documented as of this encounter Visit Diagnoses Not on filedocumented in this encounter Care Teams Welder/Fitter Relationship Specialty Start Date End Date Mary Carrillo PA PCP - General 01/28/11 12/05/19 documented as of this encounter
--- OUTSIDE RECORDS SUMMARY | 2023-10-06 02:01 | XMS_ITS | Encounter Summary ---
Author Organization [facility] Address [address] [place] [address] Care Team Providers Care Molder Offbearer Name Role Phone Unknown, Provider Primary Care Provider Encounter Details Date Type Department Care Team (Late st Contact Info) Description 02/17/2009 Orders Only [facility] Laboratory Services - [facility] ([facility]) [address] [place], [place] [address] Garett Barba, DO [address] [facility] [address] [place], [place] [phone] Social History Tobacco Use Types Packs/Day Years [...] CHAPMAN, BARBARA A ? Accession #: ? [id number] ? : ? 1970 (Age: 38) ??F [...] ??The ? specimens are serially sectioned and sales support representative sections are submitted, with the smaller as (A1) and larger as (A2). ??(Suri Horn/radha ? End of Report ? DAIN GOME[facility] 02/17/2009 02/18/2009 9:2 0 EST Garett Barba DO PATHOLOGY ORDER TRE [facility] [address] [place] [address] documented in this encounter Visit Diagnoses Not on filedocumented in this encounter Care Teams Molder Offbearer Relationship Specialty Start Date End Date Unknown, Provider, PCP - General 07/17/08 01/27/10 documented as of this encounter
--- OUTSIDE RECORDS SUMMARY | 2023-10-06 02:01 | XMS_ITS | Encounter Summary ---
Author Organization [facility] Address [address] [place] [address] Care Team Providers Care Multimedia Specialist Name Role Phone Dean Carrillo Primary Care Provider Unavailab le Encounter Details Date Type Department Care Team (Late st Contact Info) Description 06/14/2010 Results Only [facility] Laboratory Services - [facility] ([facility]) [address] [place] [address] Vignesh Mcpherson MD [address] [place] [address] Social History Tobacco Use Types Packs/Day [...] CHAPMAN, BARBARA A ? Accession #: ? [id number] ? : ? 1970 (Age: 39) ??F [...] ??There is a focal area of hemorrhage. ??Balance Wheel Screw Hole Tapper sections are submitted as (A1) and (A2). ? Received in formalin labeled Chapman, Barbara and right tonsil is a guerra-pink, ovoid, unoriented soft tissue measuring 3.4 x 2.2 x 1.3 cm and is partially ? surfaced by a guerra, smooth to wrinkled mucosa. ??The cut surfaces are guerra-pink ? with a crypt-like architecture. ??No discrete nodules are present. ??A ? customer field representative section is submitted as (B). ? Received in formalin labeled Chapman, Barbara and uvula is a guerra-pink, ? triangular 1.2 x 0.6 x 0.5 cm soft tissue surfaced by a guerra smooth to wrinkled ?? mucosa. ??The cut surfaces are white and homogeneous. ??No definitive nodules ? present. ??A customer field representative section is submitted as (C). (Suri Davis)/mpl ? End of Report ? [facility] 06/14/2010 06/14/2010 8:3 3 EDT Vignesh Mcpherson MD PATHOLOGY ORDERABLES Performing Organization Address City/State/[facility] Co de Phone Number DAIN [facility] [address] [place] [address] documented in this encounter Visit Diagnoses Not on filedocumented in this encounter Care Teams Multimedia Specialist Relationship Specialty Start Date End Date Dean Carrillo PA PCP - General 01/28/10 01/02/11 documented as of this encounter
--- OUTSIDE RECORDS SUMMARY | 2023-10-06 02:01 | XMS_ITS | Encounter Summary ---
Author Organization [facility] Address [address] [place] [address] Care Team Providers Care Block Piler Name Role Phone Unknown, Provider Primary Care Provider Encounter Details Date Type Department Care Team (Late st Contact Info) Description 01/26/2010 Results Only [facility] Laboratory Services - [facility] ([facility]) [address] [place], [place] [address] Garett Barba, DO [address] [facility] [address] [place], [place] [phone] Social History Tobacco Use Types Packs/Day Years [...] CHAPMAN, BARBARA A ? Accession #: ? [id number] ? : ? 1970 (Age: 39) ??F [...] ??performance ? characteristics have been determined by [facility]. ??This ? laboratory is certified under the [...] GERD ? Gross Description: ? Received in [employer]'s fixative labelled Chapman, Barbara and #1 bx ? gastric antrum are two biopsies measuring 0.3 x 0.3 x 0.2 cm and 0.4 x 0.3 x ?? 0.2 cm. ??The specimens are submitted intact as (A). ? Received in [employer]'s fixative labelled Barbara Chapman and #2 bx body of ? stomach are two biopsies measuring 0.6 x 0.3 x 0.1 cm and 0.8 x 0.2 x 0.1 cm. ?? The specimens are submitted intact as (B). ? Received in [employer]'s fixative labelled Barbara Chapman and #3 bx distal ? esophagus are three biopsies which vary in size from 0.4 x 0.3 x 0.1 cm up to ?? 0.5 x 0.3 x 0.1 cm. ??The specimens are submitted intact as (C). ? Received in [employer]'s fixative labelled Barbara Chapman and #4 bx mid ? esophagus are two biopsies measuring 0.3 x 0.2 x 0.1 cm and 0.3 x 0.3 x 0.1 cm. The specimens are submitted intact as (D). ? [facility] fix[facility] labelled Barbara Chapman and #5 bx proximal ?? esophagus are two biopsies measuring 0.2 x 0.2 x 0.1 cm and 0.4 x 0.3 x 0.1 cm. The specimens are submitted intact as (E). ??(CARLOS A Grewal)/eddan ? End of Report ? [facility] 01/26/2010 01/27/2010 10: 15 EST Garett Barba DO PATHOLOGY ORDER TRE [facility] [address] [place] [address] documented in this encounter Visit Diagnoses Not on filedocumented in this encounter Care Teams Block Piler Relationship Specialty Start Date End Date Unknown, Provider, PCP - General 07/17/08 01/27/10 documented as of this encounter
--- OUTSIDE RECORDS SUMMARY | 2023-10-06 02:01 | XMS_ITS | Encounter Summary ---
Author Organization [facility] Address [address] [place] [address] Care Team Providers Care Exercise Manager Name Role Phone Unknown, Provider Primary Care Provider Carla Reinoso MD Primary Care Provider Mary Carrillo Primary Care Provider Unavailab le Encounter Details Date Type Department Care Team (Late st Contact Info) Description 06/27/2006 Results Only [facility] - Maple conversion [address] [place] [address] Garett Barba, DO [address] [facility] [address] [place] [address] Social History Tobacco Use Types Packs/Day Years [...] ? BARBARA CHAPMAN ? Accession #: ? [id number] ? : ? 1970 (Age: 35) ??F [...] ??PAS-amylase is negative for fungal organisms. ??(Dr. Escalona)/[facility] ?? Document reviewed and electronically signed by: [...] PATHOLOGY ORDER TRE [facility] [address] [place] [address] documented in this encounter Visit Diagnoses Not on filedocumented in this encounter Care Teams Exercise Manager Relationship Specialty Start Date End Date Unknown, Provider, PCP - General 07/17/08 01/27/10 Carla Reinoso MD [address] [place] [address] PCP - General 07/16/08 07/16/08 Mary Carrillo PA PCP - General 01/28/10 01/02/11 documented as of this encounter
--- OUTSIDE RECORDS SUMMARY | 2023-10-06 02:01 | XMS_ITS | Encounter Summary ---
Author Organization [facility] Address [address] [place] [address] Care Team Providers Care Client Relation Specialist Name Role Phone Mary Carrillo Primary Care Provider Unavailab le Encounter Details Date Type Department Care Team (Latest Contact Info) Description 11/14/2013 13:16 EDT - 11/14/2013 23:59 EDT Hospital Encounter [address] [address] Unknown, Provider, Discharge Disposition: Home or Self Care Social History Tobacco Use Types Packs/Day Years Used Date Smoking Tobacco: Never Assessed Sex and Gender Information Value Date Recorded Sex Assigned at Not on file Gender Identity Not on file Sexual Orientation Not on file documented as of this encounter Discharge Disposition Disposition Code Departure Means Destination Home or Self [facility] documented in this encounter Plan of Treatment Not on file documented as of this encounter Visit Diagnoses Not on filedocumented in this encounter Care Teams Client Relation Specialist Relationship Specialty Start Date End Date Mary Carrillo PA PCP - General 01/28/11 12/05/19 documented as of this encounter
--- OUTSIDE RECORDS SUMMARY | 2023-10-06 02:01 | XMS_ITS | Encounter Summary ---
Author Organization [facility] Address [address] [place] [address] Care Team Providers Care Library Director Name Role Phone Mary Carrillo Primary Care Provider Unavailab le Encounter Details Date Type Department Care Team (Latest Contact Info) Description 03/18/2015 17:53 EST - 03/18/2015 23:59 EST Hospital Encounter [address] [address] Unknown, Provider, Discharge Disposition: Home or Self [...] on filedocumented in this encounter Care Teams Library Director Relationship Specialty Start Date End Date Mary Carrillo PA PCP - General 01/28/11 12/05/19 documented as of this encounter
--- OUTSIDE RECORDS SUMMARY | 2023-10-06 02:02 | XMS_ITS | Encounter Summary ---
Author Organization [facility] Address [facility] [place] [address] Care Team Providers Care Gizzard Skin Remover Name Role Phone Gissell Davis APRN Primary Care Provider Encounter Details Date Type Department Care Team (Late st Contact Info) Description 01/24/2019 8:33 AM EST Anesthesia Event [facility] [place] [address] [facility] [place] [address] [facility] [address] [place] [address] Anesthesia Record Procedure Summary Procedure Name Responsible [...] 0802; median cubital vein (antecubital fossa), left; otnd-awm-fxudth catheter system; 22 gauge, 1/2 in length; [...] Procedure Summary Date: 01/24/19 Room / Location: [address] Anesthesia Start: 832 Anesthesia Stop: 101 [...] All Anesthesia Providers: Anesthesiologist: Ken Canseco MD UNCRATER: Lu Lopez CRNA Vitals Value Taken Time BP 133/77 01/24/2019 10:27 AM Temp 36.1 ??C (97 ??F) 01/24/2019 10:14 AM Pulse 84 01/24/2019 10:34 AM Resp 20 01/24/2019 10:34 AM SpO2 98 % 01/24/2019 10:34 AM Pain Level 1 01/24/2019 10:55 AM Patient Location: PACU/[facility] Level of Consciousness: Awake and Alert [...] 7.5) performed by Nena Ace MD at [facility] OR ??? PRO CYSTO/URETERO/PYELOSCOPY W/LITHOTRIPSY Bilateral 12/28/2018 CYSTOURETEROSCOPY, LITHOTRIPSY (WRVU 7.5) performed by Nena Ace MD at [facility] OR ??? PRO CYSTO/URETERO/PYELOSCOPY, CALCULUS TX Bilateral 11/16/2018 CYSTOURETHROSCOPY WITH UTETEROSCOPY, W\REMOVAL, MANIPULATION OF CALCULUS (WRVU 6.75) performed by Nena Ace MD at [facility] OR ??? PRO CYSTOSCOPY, INSERT URETERAL STENT Bilateral 10/16/2018 CYSTO, STENT PLACEMENT (WRVU 2.82) performed by Agustin Crespo MD at [facility] OR ??? PRO CYSTOSCOPY, INSERT URETERAL STENT Bilateral 11/16/2018 CYSTO, STENT PLACEMENT (WRVU 2.82) performed by Nena Ace MD at [facility] OR ??? PRO CYSTOURETHROSCOPY, URETER CATHETER Bilateral 10/16/2018 CYSTO, RETROGRADE, URETEROPYELOGRAPHY (WRVU 2.37) performed by Agustin Crespo MD at [facility] OR Social History Tobacco Use ??? Smoking [...] 50 mL Mini-Bag Plus 2 g, Intravenous, WASTE WATER OR WATER PLANT OPERATOR TO O.R., 1 dose, On Christen [...] mL/hr documented in this encounter Care Teams Gizzard Skin Remover Relationship Specialty Start Date End Date Gissell Davis, [place] [address] [place] [address] PCP - General Family Medicine 08/21/18 11/12/21 documented as of this encounter
--- OUTSIDE RECORDS SUMMARY | 2023-10-06 02:02 | XMS_ITS | Clinical Summary ---
Author Organization [facility] Address [facility] [place] [address] Care Team Providers Care Residential Mental Health Worker Name Role Phone Unknown Primary Care Provider [...] 10/22/2023 01/16/2006 Medical Devices Explanted Type Area Lawnmower Repair Mechanic Device Identifier Shelf Expiration Date Model / Serial / Lot Stent,Contour -Vl,6vwy30-78 cm ([id number]) - [id number] Implanted:Qty : 1 on 10/16/2018 by Nena Edwards MD at [facility] Explanted:Qty : 1 on 11/16/2018 by Nena Ace MD at [facility] IMPLANTS Left: Ureter [employer] 05/21/2021 [id number] 60 / / [id number] Stent,Contour -Vl,1yfb06-10 cm ([id number]) - [id number] Implanted:Qty : 1 on 10/16/2018 by Nena Edwards MD at [facility] Explanted:Qty : 1 on 11/16/2018 by Nena Ace MD at [facility] IMPLANTS Right: Ureter [employer] 06/20/2021 [id number] 60 / / [id number] Stent,Uret,Un iv,Soft,7fr,2 8cm ([id number]) - [id number] Implanted:Qty : 1 on 11/16/2018 by Nena Ace MD at [facility] Explanted:Qty : 1 on 12/28/2018 by Nena Ace MD IMPLANTS Left: Ureter [employer] 05/15/2021 [id number] 40 / / [id number] Stent,Uret,Un iv,Soft,7fr,2 8cm ([id number]) - [id number] Implanted:Qty : 1 on 11/16/2018 by Nena Ace MD at [facility] Explanted:Qty : 1 on 12/28/2018 by Nena Ace MD IMPLANTS Right: Ureter [employer] 2021 [id number] 40 / / [id number] Stent,Uret,Un iv,Soft,8fr,2 6cm ([id number]) - [id number] Implanted:Qty : 1 on 12/28/2018 by Nena Ace MD at [facility] Explanted:Qty : 1 on 01/24/2019 by Stacey Leblanc MD IMPLANTS Right: Ureter [employer] 08/19/2021 [id number] 30 / / [id number] Stent,Contour ,9fdg89ms ([id number]) - [id number] Implanted:Qty : 1 on 01/24/2019 by Stacey Leblanc MD at [facility] Explanted:Qty : 1 on 02/04/2019 by Stacey Leblanc MD IMPLANTS Right: Ureter [employer] 10/10/2021 [id number] 30 / / [id number] Procedures Procedure Name Priority Date/Time Associated Diagnosis Comments HC VENIPUNCTURE Routine 10/17/2018 5:08 AM EDT HEMOGLOBIN A1C Routine 03/18/2010 9:16 AM EST from Last 3 Months or Most Recently Relevant to Health Maintenance Results * (ABNORMAL) Basic Metabolic Panel (non-fasting) (10/17/2018 5:08 AM EDT) Glucose 110 65 - 199 mg/dL [facility] Comment:Diabetes: >=200 mg/d L plus symptoms Blood Urea Nitrogen 16 8 - 18 mg/dL [facility] Creatinine 1.95(H) 0.70 - 1.20 mg/dL [facility] Comment:result rechecked-ssd Sodium 141 135 - 145 mmol/L [facility] Potassium 3.3(L) 3.5 - 5.0 mmol/L [facility] Comment: Please note: ??Patients with WBC >100,000 may have falsely elevated Potassium levels. ??For accurate Potassium quantification in these patients send serum separator tube (gold top) for subsequent determinations. ??Contact the Clinical Chemistry Laboratory if there are any questions. Chloride 104 98 - 107 mmol/L [facility] Carbon Dioxide 26 22 - 31 mmol/L [facility] Anion Gap 11 5 - 15 mmol/L [facility] Calcium 8.7 8.5 - 10.5 mg/dL [facility] Est Glomerular Filtration Rate 29(L) >=60 mL/min/1. 73 m?? [facility] Comment: The eGFR was calculated using the CKD-EPI equation. As with all creatinine based estimates of kidney function, eGFR values calculated with the CKD-EPI equation are not accurate in patients with acute kidney failure, extremes of body mass or the acutely ill. http://[employer]/[facility] eGFR 34(L) >=60 mL/min/1. 73 m?? [facility] Comment: The eGFR was calculated using the CKD-EPI equation. As with all creatinine based estimates of kidney function, eGFR values calculated with the CKD-EPI equation are not accurate in patients with acute kidney failure, extremes of body mass or the acutely ill. http://[employer]/DHnkf Blood specimen (specimen) 10/17/2018 5:08 AM EDT 10/17/2018 5:22 AM EDT Narrative Resulting Agency Comment Spec In Lab Nena Ace MD CHEMISTRY ORDERABLES [facility] [place] [address] * HEMOGLOBIN A1C (03/18/2010 9:16 AM EST) Hemoglobin A1c 5.6 4.3 - 6.1 % [facility] Estimated Average Glucose 114 mg/dL [facility] Comment: eAG equivalents for HbA1c percentages: [...] into estimated average glucose values. ??Diabetes Care 2008:31(8):2074-7891. Blood specimen (specimen) 03/18/2010 9:16 AM EST 03/18/2010 9:30 AM EST Ash Pinto MD CHEMISTRY ORDERABLES [facility] from Last 3 Months or Most Recently Relevant to Health Maintenance Advance Directives Documents on File Type Date Recorded Patient Lock Tender Expl anation Advance Directives and Livin g [...] capacity to make decision: Yes Care Teams Residential Mental Health Worker Relationship Specialty Start Date End Date Unknown None PCP - General 11/13/21
--- OUTSIDE RECORDS SUMMARY | 2023-10-06 02:02 | XMS_ITS | Encounter Summary ---
Author Organization [facility] [place] [address] Care Team Providers Care Tree Surgeon Helper Name Role Phone Gissell Davis APRN Primary Care Provider [phone] Encounter Details Date Type Department Care Team (Latest Contact Info) Description 11/16/2018 7:26 AM EDT - 11/16/2018 2:10 PM EDT Hospital Encounter [place] [address] Nena Ace MD [facility] [place] [address] Discharge Disposition: Home Social History Tobacco Use [...] Program 8a-5pm Monday-Monday. All other times, call [phone] and ask for the anesthesiologist personnel consultant. POST ANESTHESIA INSTRUCTIONS Go home, rest, [...] pain medications The number for questions is [phone] before 5 PM weekdays and [phone] after 5 PM and weekends. Activity level: [...] stone in about a month. Please call [phone] if you do not hear from the [...] since her last admission. Urine cx from [facility] on 11/08/18 is mixed mucosal probable [...] Operative Note Patient Name: Barbara Chapman : [id number] MR#: [id number] Case Date: 11/16/2018 Surgeon: Surgeon(s) and Role: [...] 3 hr in lithotomy position. A 7fr [id number] stent was then placed over a wire. [...] Operative Note Patient Name: Barbara Chapman : [id number] MR#: [id number] Case Date: 11/16/2018 Surgeon: Surgeon(s) and Role: [...] USE Routine 11/16/2018 1:06 PM EDT HC [facility] KIDNEY STONE ANALYSIS Routine 11/16/2018 12:40 PM EDT HC URINE CULTURE Routine 11/16/2018 10:1 0 AM EDT MODIFIER HOLMIUM LASER Yes 11/16/2018 9:41 AM EDT URETERAL OBSTRUCTION Cysto/Uretero/Pyelos copy, Calculus Tx (55139) Yes 11/16/2018 9:41 AM EDT URETERAL OBSTRUCTION Cysto/Uretero/Pyelos copy W/Lithotripsy (90107) Yes 11/16/2018 9:41 AM EDT URETERAL OBSTRUCTION Cystoscopy, Insert Ureteral Stent (76569) Yes 11/16/2018 9:41 AM EDT URETERAL OBSTRUCTION POCT GLUCOSE Routine 11/16/2018 9:00 AM EDT IMPLANTABLE DEVICES SCAN 11/16/2018 12:00 AM EDT documented in this encounter Results * POCT Glucose (11/16/2018 1:13 PM EDT) Glucose, POC 145 65 - 199 mg/dL [facility] Comment: Supplemental ranges: <140 mg/dL before meals <180 mg/dL all other times of the day Blood specimen (specimen) 11/16/2018 1:13 PM EDT 11/16/2018 1:13 PM EDT Nena Ace MD POINT OF CARE TEST O RDERABLES Performing Organization Address City/[facility]/ZIP Co de Phone Number [facility] [place] [address] * XR Fluoro No Rad <1Hr - OR Use (11/16/2018 1:06 PM EDT) Narrative RAD - 11/16/2018 1:07 PM EDT This exam is auto-finalizing. No interpretation was done. Nena Ace MD IMG FLUORO ORDERABLE S Performing Organization Address City/[facility]/ZIP Co de Phone Number [place], [place] * Kidney Stone Analysis (11/16/2018 12:40 PM EDT) Kidney Stone Analysis (MAY) Test ?Result ? Flag ??Unit ??RefValue Kidney Stone Analysis ??Source: ? Ureter ??Interpretation ?SEE COMMENTS ?90% Calcium oxalate monohydrate ?10% Calcium phosphate (apatite) ?Test Performed by: ?[facility] ?[address] [place] [address] ?Manager Sourcing: Mario River M.D. Ph.D.; CLIA# [id number] [facility] Calculus specimen (specimen) 11/16/2018 12:40 PM EDT 11/16/2018 3:42 PM EDT Narrative Resulting Agency Comment Spec In Lab Nena Ace MD LAB SEND OUT ORDERAB LES [facility] [place] [place] [address] * Urine culture Cystoscopic Urine (11/16/2018 10:10 AM EDT) Urine Culture No growth (Less than 100 cfu/ml). [facility] Urine specimen (specimen) 11/16/2018 10:10 AM EDT 11/16/2018 2:25 PM EDT Narrative Resulting Agency Comment Spec In Lab Nena Ace MD MICROBIOLOGY - GENER AL ORDERABLES Performing Organization Address City/[facility]/ZIP Co de Phone Number [facility] [place] [address] * POCT Glucose (11/16/2018 9:00 AM EDT) Glucose, POC 135 65 - 199 mg/dL [facility] Comment: Supplemental ranges: <140 mg/dL before meals <180 mg/dL all other times of the day Blood specimen (specimen) 11/16/2018 9:00 AM EDT 11/16/2018 9:00 AM EDT Nena Ace MD POINT OF CARE TEST O RDERABLES Performing Organization Address [facility] Co de Phone Number [facility] [place] [address] * SCAN DOC: IMPLANTABLE DEVICES (11/16/2018 12:00 [...] 5% 200 mL (COMPLETED) 400 mg, Intravenous, CEMENT STORAGE WORKER TO O.R., 1 dose, On Mon11/16/18 at [...] Routine documented in this encounter Care Teams Tree Surgeon Helper Relationship Specialty Start Date End Date Gissell Davis APRN [address] [place] [address] PCP - General Family Medicine 08/21/18 11/12/21 documented as of this encounter
--- OUTSIDE RECORDS SUMMARY | 2023-10-06 02:02 | XMS_ITS | Encounter Summary ---
Author Organization [facility] Address [facility] [place] [address] Care Team Providers Care Returns Supervisor Name Role Phone Gissell Davis APRN Primary Care Provider Encounter Details Date Type Department Care Team (Latest Contact Info) Description 12/28/2018 7:38 AM EST - 12/28/2018 2:21 PM EST Hospital Encounter [place] [id number] Nena Ace MD [facility] [place] [address] Discharge Disposition: Home Social History Tobacco Use [...] 7.5) performed by Nena Ace MD at [facility] MAIN OR ??? PRO CYSTO/URETERO/PYELOSCOPY, CALCULUS TX Bilateral 11/16/2018 CYSTOURETHROSCOPY WITH UTETEROSCOPY, W\REMOVAL, MANIPULATION OF CALCULUS (WRVU 6.75) performed by Nena Ace MD at [facility] MAIN OR ??? PRO CYSTOSCOPY, INSERT URETERAL STENT Bilateral 10/16/2018 CYSTO, STENT PLACEMENT (WRVU 2.82) performed by Agustin Crespo MD at [facility] OR ??? PRO CYSTOSCOPY, INSERT URETERAL STENT Bilateral 11/16/2018 CYSTO, STENT PLACEMENT (WRVU 2.82) performed by Nena Ace MD at [facility] OR ??? PRO CYSTOURETHROSCOPY, URETER CATHETER Bilateral 10/16/2018 CYSTO, RETROGRADE, URETEROPYELOGRAPHY (WRVU 2.37) performed by Agustin Crespo MD at [facility] MAIN OR No current facility-administered medications [...] Note ?? Patient Name: Barbara Chapman : [id number] MR#: [id number] ?? Case Date: 12/28/2018 ?? Surgeon: Surgeon(s) [...] Operative Note Patient Name: Barbara Chapman : [id number] MR#: [id number] Case Date: 12/28/2018 Surgeon: Surgeon(s) and Role: * Nena cAe MD - Primary * Gonzalo Goodrich MD [...] 12/28/2018 11:3 2 AM EST HC [facility] KIDNEY STONE ANALYSIS Routine 12/28/2018 11:21 AM EST HC URINE CULTURE Routine 12/28/2018 11:2 1 AM EST MODIFIER HOLMIUM LASER 12/28/2018 10:45 AM EST STONE Cysto/Uretero/Pyelos copy W/Lithotripsy ([id number]) 12/28/2018 10:45 AM EST STONE POCT GLUCOSE Routine 12/28/2018 9:40 AM EST documented in this encounter Results * SCAN DOC: IMPLANTABLE DEVICES (12/31/2018 12:00 AM EST) Narrative 12/31/2018 12:00 AM EST Ordered by an unspecified provider. Scanning Provider MEDIA MGR SCAN EXT O RDR/RSLT * POCT Glucose (12/28/2018 1:29 PM EST) Glucose, POC 141 65 - 199 mg/dL [facility] Comment: Supplemental ranges: <140 mg/dL before meals <180 mg/dL all other times of the day Blood specimen (specimen) 12/28/2018 1:29 PM EST 12/28/2018 1:29 PM EST Nena Ace MD POINT OF CARE TEST O RDERABLES Performing Organization Address [facility] de Phone Number [facility] [place] [address] * XR Fluoro No Rad <1Hr - OR Use (12/28/2018 1:14 PM EST) Narrative RAD - 12/28/2018 1:14 PM EST This exam is auto-finalizing. No interpretation was done. Nena Ace MD IMG FLUORO ORDERABLE S Performing Organization Address [facility] de Phone Number [place], [place] * Urine culture Urine (12/28/2018 11:32 AM EST) Urine Culture No growth (Less than 100 cfu/ml). [facility] Urine specimen (specimen) 12/28/2018 11:32 AM EST 12/28/2018 12:14 PM EST Comment:RIGHT RENAL PELVIC U RINE CULTURE Narrative Resulting Agency Comment Spec In Lab Nena Ace MD MICROBIOLOGY - GENER AL ORDERABLES Performing Organization Address [facility] de Phone Number [facility] [place] [address] * Kidney Stone Analysis (12/28/2018 11:21 AM EST) Kidney Stone Analysis (MAY) Test ?Result ? Flag ??Unit ??RefValue Kidney Stone Analysis ??Source: ? Right Ureter ??Interpretation ?SEE COMMENTS ?90% Calcium oxalate monohydrate ?10% Calcium oxalate dihydrate ?Test Performed by: ?[facility] ?[address] [place] [address] ?Silicator: Mario River M.D. Ph.D.; CLIA# [id number] [facility] Calculus specimen (specimen) 12/28/2018 11:21 AM EST 12/28/2018 1:36 PM EST Narrative Resulting Agency Comment Spec In Lab Nena Ace MD LAB SEND OUT ORDERAB LES Performing Organization Address [facility] Co de Phone Number [facility] [place] [address] * Urine culture Cystoscopic Urine (12/28/2018 11:21 AM EST) Pathologist [facility] Urine Culture No growth (Less than 100 cfu/ml). [facility] Urine specimen (specimen) 12/28/2018 11:21 AM EST 12/28/2018 1:58 PM EST Comment:BLADDER URINE Narrative Resulting Agency Comment Spec In Lab Nena Ace MD MICROBIOLOGY - GENER AL ORDERABLES Performing Organization Address [facility] Co de Phone Number [facility] [place] [address] * POCT Glucose (12/28/2018 9:40 AM EST) Glucose, POC 126 65 - 199 mg/dL [facility] Comment: Supplemental ranges: <140 mg/dL before meals <180 mg/dL all other times of the day Blood specimen (specimen) 12/28/2018 9:40 AM EST 12/28/2018 9:40 AM EST Nena Ace MD POINT OF CARE TEST O RDERABLES [facility] [place] [address] documented in this encounter Visit Diagnoses Not [...] mL Mini-Bag Plus (COMPLETED) 2 g, Intravenous, WIND TURBINE CONTROLS ENGINEER TO O.R., 1 dose, On Mon12/28/18 at [...] mg patch, Recovery (Recovery-Hospital Unit) 0930 (Due)0949 ([facility] h Not Removed (add comment) - Provider: [...] Routine documented in this encounter Care Teams Returns Supervisor Relationship Specialty Start Date End Date Gissell Davis APRN [address] [place] [address] PCP - General Family Medicine 08/21/18 11/12/21 documented as of this encounter
--- OUTSIDE RECORDS SUMMARY | 2023-10-06 02:02 | XMS_ITS | Encounter Summary ---
Author Organization [facility] [place] [address] Care Team Providers Care Coke Drawer Hand Name Role Phone Gissell Davis APRN Primary Care Provider Encounter Details Date Type Department Care Team (Late st Contact Info) Description 11/29/2018 [place] [phone] Esthela Ortiz Social History Tobacco Use Types [...] on filedocumented in this encounter Care Teams Coke Drawer Hand Relationship Specialty Start Date End Date Gissell Davis APRN [address] [place] [address] PCP - General Family Medicine 08/21/18 11/12/21 documented as of this encounter
--- OUTSIDE RECORDS SUMMARY | 2023-10-06 02:02 | XMS_ITS | Encounter Summary ---
Author Organization [facility] Address [facility] [place] [address] Care Team Providers Care Mis Specialist Name Role Phone Gissell Davis APRN Primary Care Provider [phone] Encounter Details Date Type Department Care Team (Latest Contact Info) Description 04/23/2020 11:53 AM EST - 04/23/2020 11:59 PM [facility] Hospital Encounter XRay at [address] [place] [address] Ward Sheffield MD [facility] [address] Chronic knee pain after total replacement of [...] XR Knee Standing Alignment AP Lat [place] Left (04/23/2020 12:12 PM EST) Anatomical Region Laterality Modality Left Digital Radiogra phy Impressions 04/23/2020 12:52 PM EST Status post bilateral total knee arthroplasty without radiographic finding of complication. Lower extremities have mild, left greater than right valgus alignment. Thank you for letting us participate in the care of this patient. For questions regarding this report, please contact the number below. ? Narrative 04/23/2020 12:52 PM EST EXAMINATION: XR [...] this report, please contact the number below. 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
--- OUTSIDE RECORDS SUMMARY | 2023-10-06 02:02 | XMS_ITS | Encounter Summary ---
[place] [address] Care Team Providers Care Director Of Casework Name Role Phone Gissell Davis APRN Primary Care Provider [phone] Encounter Details Date Type Department Care Team (Late st Contact Info) Description 12/24/2018 [place] [phone] Gonzalo Goodrich MD [facility] UROLOGY DEPT [place] [id number] Social History Tobacco Use Types Packs/Day Years [...] EST Patient dropped of a UCx to [facility] today. Will call tomorrow to obtain the results. Gonzalo Goodrich MD, MPH Urology, PGY-3 Consult Pager #[phone] 12/24/2018 documented in this encounter Plan of Treatment Not on file documented as of this encounter Visit Diagnoses Not on filedocumented in this encounter Care Teams Director Of Casework Relationship Specialty Start Date End Date Gissell Davis APRN [address] [place] [address] PCP - General Family Medicine 08/21/18 11/12/21 documented as of this encounter
--- OUTSIDE RECORDS SUMMARY | 2023-10-06 02:02 | XMS_ITS | Encounter Summary ---
[place] [address] Care Team Providers Care Moisture Conditioner Operator Name Role Phone Gissell Davis APRN Primary Care Provider [phone] Encounter Details Date Type Department Care Team (Late st Contact Info) Description 07/26/2019 Ancillary Procedure [place] [address] Gissell Davis APRN [address] [place] [address] Social History Tobacco Use Types Packs/Day Years [...] DX Knee (07/26/2019 12:00 AM EDT) Narrative [facility] - 03/17/2020 3:59 PM EST This exam is auto-finalizing. It's purpose is for storage only. Gissell Davis APRN [facility] FILM LIBRARY ORD ERABLES [facility] [place], [place] documented in this encounter Visit Diagnoses Not on filedocumented in this encounter Care Teams Moisture Conditioner Operator Relationship Specialty Start Date End Date Gissell Davis APRN [address] [place] [address] PCP - General Family Medicine 08/21/18 11/12/21 documented as of this encounter
--- OUTSIDE RECORDS SUMMARY | 2023-10-06 02:02 | XMS_ITS | Encounter Summary ---
Author Organization [facility] Address [facility] [place] [address] Care Team Providers Care Sld Teacher Name Role Phone Gissell Davis APRN Primary Care Provider Encounter Details Date Type Department Care Team (Late st Contact Info) Description 12/28/2018 9:58 AM EST - 12/28/2018 12:56 PM EST Surgery [place] [id number] Nena Ace MD [facility] [address] CYSTOURETEROSCOPY, LITHOTRIPSY (WRVU 7.5) Social History Tobacco [...] 7.5) performed by Nena Ace MD at [facility] MAIN OR ??? PRO CYSTO/URETERO/PYELOSCOPY, CALCULUS TX Bilateral 11/16/2018 CYSTOURETHROSCOPY WITH UTETEROSCOPY, W\REMOVAL, MANIPULATION OF CALCULUS (WRVU 6.75) performed by Nena Ace MD at [facility] MAIN OR ??? PRO CYSTOSCOPY, INSERT URETERAL STENT Bilateral 10/16/2018 CYSTO, STENT PLACEMENT (WRVU 2.82) performed by Agustin Crespo MD at [facility] OR ??? PRO CYSTOSCOPY, INSERT URETERAL STENT Bilateral 11/16/2018 CYSTO, STENT PLACEMENT (WRVU 2.82) performed by Nena Ace MD at [facility] OR ??? PRO CYSTOURETHROSCOPY, URETER CATHETER Bilateral 10/16/2018 CYSTO, RETROGRADE, URETEROPYELOGRAPHY (WRVU 2.37) performed by Agustin Crespo MD at [facility] OR No current facility-administered medications on file [...] Note ?? Patient Name: Barbara Chapman : [id number] MR#: [id number] ?? Case Date: 12/28/2018 ?? Surgeon: Surgeon(s) [...] then inserted the flexible ureteroscopeand used the TRUSTe basket to extract all of the ureteral [...] Operative Note Patient Name: Barbara Chapman : [id number] MR#: [id number] Case Date: 12/28/2018 Surgeon: Surgeon(s) and Role: [...] Routine 12/28/2018 11:3 2 AM EST HC [facility] KIDNEY STONE ANALYSIS Routine 12/28/2018 11:21 AM EST HC URINE CULTURE Routine 12/28/2018 11:2 1 AM EST MODIFIER HOLMIUM LASER 12/28/2018 10:45 AM EST STONE Cysto/Uretero/Pyelos copy W/Lithotripsy (58086) 12/28/2018 10:45 AM EST STONE POCT GLUCOSE Routine 12/28/2018 9:40 AM EST documented in this encounter Results * SCAN DOC: IMPLANTABLE DEVICES (12/31/2018 12:00 AM EST) Narrative 12/31/2018 12:00 AM EST Ordered by an unspecified provider. Scanning Provider MEDIA MGR SCAN EXT O RDR/RSLT * POCT Glucose (12/28/2018 1:29 PM EST) Glucose, POC 141 65 - 199 mg/dL [facility] Comment: Supplemental ranges: <140 mg/dL before meals <180 mg/dL all other times of the day Blood specimen (specimen) 12/28/2018 1:29 PM EST 12/28/2018 1:29 PM EST Nena Ace MD POINT OF CARE TEST O RDERABLES Performing Organization Address [facility] de Phone Number [facility] [place] [address] * XR Fluoro No Rad <1Hr - OR Use (12/28/2018 1:14 PM EST) Narrative RAD - 12/28/2018 1:14 PM EST This exam is auto-finalizing. No interpretation was done. Nena Ace MD IMG FLUORO ORDERABLE S Performing Organization Address [facility] de Phone Number [place], [place] * Urine culture Urine (12/28/2018 11:32 AM EST) Urine Culture No growth (Less than 100 cfu/ml). [facility] Urine specimen (specimen) 12/28/2018 11:32 AM EST 12/28/2018 12:14 PM EST Comment:RIGHT RENAL PELVIC U RINE CULTURE Narrative Resulting Agency Comment Spec In Lab Nena Ace MD MICROBIOLOGY - GENER AL ORDERABLES Performing Organization Address [facility] de Phone Number [facility] [place] [address] * Kidney Stone Analysis (12/28/2018 11:21 AM EST) Kidney Stone Analysis (MAY) Test ?Result ? Flag ??Unit ??RefValue Kidney Stone Analysis ??Source: ? Right Ureter ??Interpretation ?SEE COMMENTS ?90% Calcium oxalate monohydrate ?10% Calcium oxalate dihydrate ?Test Performed by: ?[facility] ?[address] [place] [address] ?[place] Former: Mario River M.D. Ph.D.; CLIA# [id number] [facility] Calculus specimen (specimen) 12/28/2018 11:21 AM EST 12/28/2018 1:36 PM EST Narrative Resulting Agency Comment Spec In Lab Nena Ace MD LAB SEND OUT ORDERAB LES Performing Organization Address [facility] Co de Phone Number [facility] [place] [address] * Urine culture Cystoscopic Urine (12/28/2018 11:21 AM EST) Urine Culture No growth (Less than 100 cfu/ml). [facility] Urine specimen (specimen) 12/28/2018 11:21 AM EST 12/28/2018 1:58 PM EST Comment:BLADDER URINE Narrative Resulting Agency Comment Spec In Lab Nena Ace MD MICROBIOLOGY - GENER AL ORDERABLES Performing Organization Address [facility] Co de Phone Number [facility] [place] [address] * POCT Glucose (12/28/2018 9:40 AM EST) Glucose, POC 126 65 - 199 mg/dL [facility] Comment: Supplemental ranges: <140 mg/dL before meals <180 mg/dL all other times of the day Blood specimen (specimen) 12/28/2018 9:40 AM EST 12/28/2018 9:40 AM EST Nena Ace MD POINT OF CARE TEST O RDERABLES [facility] [place] [address] documented in this encounter Visit Diagnoses Not [...] mL Mini-Bag Plus (COMPLETED) 2 g, Intravenous, FIREPROOF DOOR ASSEMBLER TO O.R., 1 dose, On Mon12/28/18 at [...] Routine documented in this encounter Care Teams Sld Teacher Relationship Specialty Start Date End Date Gissell Davis APRN [address] [place] [address] PCP - General Family Medicine 08/21/18 11/12/21 documented as of this encounter
--- OUTSIDE RECORDS SUMMARY | 2023-10-06 02:02 | XMS_ITS | Encounter Summary ---
Author Organization [facility] [place] [address] Care Team Providers Care Corporate Consultant Name Role Phone Unknown Primary Care Provider Unavailabl e Encounter Details Date Type Department Care Team (Late st Contact Info) Description 02/18/2022 Telephone [place] [address] Jodi Glez Social History Tobacco Use Types [...] Glez - 02/18/2022 1:42 PM EST Called Formerly named [facility] as gastro received a referral/order? For a [...] on filedocumented in this encounter Care Teams Corporate Consultant Relationship Specialty Start Date End Date Unknown None PCP - General 11/13/21 documented as of this encounter
--- OUTSIDE RECORDS SUMMARY | 2023-10-06 02:02 | XMS_ITS | Encounter Summary ---
[place] [address] Care Team Providers Care Tnt Powder Worker Name Role Phone Unknown Primary Care Provider Unavailabl e Encounter Details Date Type Department Care Team (Late st Contact Info) Description 12/27/2021 [place] [address] Stacey Pool RN Social History Tobacco Use [...] on filedocumented in this encounter Care Teams Tnt Powder Worker Relationship Specialty Start Date End Date Unknown None PCP - General 11/13/21 documented as of this encounter
--- OUTSIDE RECORDS SUMMARY | 2023-10-06 02:02 | XMS_ITS | Encounter Summary ---
Author Organization [facility] [place] [address] Care Team Providers Care Planer Setter Name Role Phone Gissell Davis APRN Primary Care Provider [phone] Encounter Details Date Type Department Care Team (Late st Contact Info) Description 01/02/2019 [place] [address] Stacye Leblanc MD [facility] [place] [address] Other symptoms and signs involving the genitourinary [...] system documented in this encounter Care Teams Planer Setter Relationship Specialty Start Date End Date Gissell Davis APRN [address] [place], [place] [address] PCP - General Family Medicine 08/21/18 11/12/21 documented as of this encounter
--- OUTSIDE RECORDS SUMMARY | 2023-10-06 02:02 | XMS_ITS | Encounter Summary ---
[place] [address] Care Team Providers Care Change Control Analyst Name Role Phone Unknown Primary Care Provider Unavailabl e Reason for Referral * Diagnostic Test (Routine) - Closed Specialty Diagnoses / Procedures Referred By Darwin martin Referred To Contact Gastroenterology Diagnoses Heartburn pH impedance OFF PPI - heartburn see also hrem Procedures pH Impedance - 24 Hour pH impedance OFF PPI - heartburn Ward Rosa MD [address] [place] [address] [facility] [address] [place] [address] Referral ID Status Reason Start Date Expiration Date V isits Requested Visits Authorized [id number] Closed Consult, Test & Treat 12/15/2021 12/15/2022 1 1 * Diagnostic Test (Routine) - Closed Specialty Diagnoses / Procedures Referred By Darwin martin Referred To Contact Gastroenterology Diagnoses Heartburn HREM - heartburn see also ph imp Procedures High Resolution Esophageal Manometry HREM - heartburn Ward Rosa MD [address] [place] [address] [facility] [address] [place] [address] Referral ID Status Reason Start Date Expiration Date V isits Requested Visits Authorized [id number] Closed Test Only 12/15/2021 12/15/2022 1 1 Encounter Details Date Type Department Care Team (Late st Contact Info) Description 12/15/2021 Transcribe Orders eDH Incoming Referrals [phone] Ward Rosa MD [facility] [facility] [address] [place] [address] Heartburn Social History Tobacco Use Types Packs/Day [...] Heartburn documented in this encounter Care Teams Change Control Analyst Relationship Specialty Start Date End Date Unknown None PCP - General 11/13/21 documented as of this encounter
--- OUTSIDE RECORDS SUMMARY | 2023-10-06 02:02 | XMS_ITS | Encounter Summary ---
Author Organization [facility] Address [facility] [place] [address] Care Team Providers Care Cavalry Scout Name Role Phone Gissell Davis APRN Primary Care Provider Encounter Details Date Type Department Care Team (Late st Contact Info) Description 11/16/2018 9:58 AM EDT - 11/16/2018 1:10 PM EDT Surgery [place] [id number] Nena Ace MD [facility] [place] [address] CYSTOURETEROSCOPY, LITHOTRIPSY (WRVU 7.5) Social History Tobacco [...] Program 8a-5pm Monday-Monday. All other times, call [phone] and ask for the anesthesiologist patient registration specialist. POST ANESTHESIA INSTRUCTIONS Go home, rest, use [...] pain medications The number for questions is [phone] before 5 PM weekdays and [phone] after 5 PM and weekends. Activity level: [...] stone in about a month. Please call [phone] if you do not hear from the [...] since her last admission. Urine cx from [facility] on 11/08/18 is mixed mucosal probable contaminate. [...] Operative Note Patient Name: Barbara Chapman : [id number] MR#: [id number] Case Date: 11/16/2018 Surgeon: Surgeon(s) and Role: [...] 3 hr in lithotomy position. A [id number] stent was then placed over a wire. [...] Operative Note Patient Name: Barbara Chapman : [id number] MR#: [id number] Case Date: 11/16/2018 Surgeon: Surgeon(s) and Role: [...] Routine 11/16/2018 1:06 PM EDT HC [facility] STONE ANALYSIS Routine 11/16/2018 12:40 PM EDT HC URINE CULTURE Routine 11/16/2018 10:1 0 AM EDT MODIFIER HOLMIUM LASER Yes 11/16/2018 9:41 AM EDT URETERAL OBSTRUCTION Cysto/Uretero/Pyelos copy, Calculus Tx (79308) Yes 11/16/2018 9:41 AM EDT URETERAL OBSTRUCTION Cysto/Uretero/Pyelos copy W/Lithotripsy (72592) Yes 11/16/2018 9:41 AM EDT URETERAL OBSTRUCTION Cystoscopy, Insert Ureteral Stent (21599) Yes 11/16/2018 9:41 AM EDT URETERAL OBSTRUCTION POCT GLUCOSE Routine 11/16/2018 9:00 AM EDT IMPLANTABLE DEVICES SCAN 11/16/2018 12:00 AM EDT documented in this encounter Results * POCT Glucose (11/16/2018 1:13 PM EDT) Glucose, POC 145 65 - 199 mg/dL [facility] Comment: Supplemental ranges: <140 mg/dL before meals <180 mg/dL all other times of the day Blood specimen (specimen) 11/16/2018 1:13 PM EDT 11/16/2018 1:13 PM EDT Nena Ace MD POINT OF CARE TEST O RDERABLES [facility] [place] [address] * XR Fluoro No Rad <1Hr - OR Use (11/16/2018 1:06 PM EDT) Narrative DH RAD - 11/16/2018 1:07 PM EDT This exam is auto-finalizing. No interpretation was done. Nena Ace MD IMG FLUORO ORDERABLE S [facility] [place], [place] * Kidney Stone Analysis (11/16/2018 12:40 PM EDT) Kidney Stone Analysis (MAY) Test ?Result ? Flag ??Unit ??RefValue Kidney Stone Analysis ??Source: ? Ureter ??Interpretation ?SEE COMMENTS ?90% Calcium oxalate monohydrate ?10% Calcium phosphate (apatite) ?Test Performed by: ?[facility] ?[address] [place] [address] ?Driver Trainee: Mario River M.D. Ph.D.; CLIA# [id number] [facility] Calculus specimen (specimen) 11/16/2018 12:40 PM EDT 11/16/2018 3:42 PM EDT Narrative Resulting Agency Comment Spec In Lab Nena Ace MD LAB SEND OUT ORDERAB LES Performing Organization Address [facility] Co de Phone Number [facility] [place] [address] * Urine culture Cystoscopic Urine (11/16/2018 10:10 AM EDT) Urine Culture No growth (Less than 100 cfu/ml). [facility] Urine specimen (specimen) 11/16/2018 10:10 AM EDT 11/16/2018 2:25 PM EDT Narrative Resulting Agency Comment Spec In Lab Nena Ace MD MICROBIOLOGY - GENER AL ORDERABLES Performing Organization Address [facility]/ZIP Co de Phone Number [facility] [place] [address] * POCT Glucose (11/16/2018 9:00 AM EDT) Glucose, POC 135 65 - 199 mg/dL [facility] Comment: Supplemental ranges: <140 mg/dL before meals <180 mg/dL all other times of the day Blood specimen (specimen) 11/16/2018 9:00 AM EDT 11/16/2018 9:00 AM EDT Nena Ace MD POINT OF CARE TEST O RDERABLES Performing Organization Address [facility] Co de Phone Number [facility] [place] [address] * SCAN DOC: IMPLANTABLE DEVICES (11/16/2018 12:00 [...] 5% 200 mL (COMPLETED) 400 mg, Intravenous, DIRECTOR OF SUPPLY CHAIN TO O.R., 1 dose, On Mon11/16/18 at [...] Routine documented in this encounter Care Teams Cavalry Scout Relationship Specialty Start Date End Date Gissell Davis, KENYATTA [address] [address] [place] [address] PCP - General Family Medicine 08/21/18 11/12/21 documented as of this encounter
--- OUTSIDE RECORDS SUMMARY | 2023-10-06 02:02 | XMS_ITS | Encounter Summary ---
[place] [address] Care Team Providers Care Compressor Station Chief Engineer Name Role Phone Gissell Davis APRN Primary Care Provider [phone] Reason for Visit * Reason Onset Date Comments Questions 04/28/2020 Encounter Details Date Type Department Care Team (Late st Contact Info) Description 04/28/2020 [place] [address] Gonzalo Leon Questions Social History Tobacco Use [...] * Telephone Encounter - Gonzalo Leon - 04/28/2020 3:12 PM EST Triage Note Subjective: pt calls requesting transcript from 04/23/20 visit w/Dr. Sheffield be faxed to her referring providor, Dr. Rivas at [place], [place] PH: [phone] FAX: [phone] Plan: forward to clinical team for resolution Patient/Responsible green party voices an understanding of advice? yes Patient/Responsible green party intends to comply with action/disposition: yes documented in this encounter Plan of Treatment Not on file documented as of this encounter Visit Diagnoses Not on filedocumented in this encounter Care Teams Compressor Station Chief Engineer Relationship Specialty Start Date End Date Gissell Davis, KENYATTA [address] [facility] [address] [place] [address] PCP - General Family Medicine 08/21/18 11/12/21 documented as of this encounter
--- OUTSIDE RECORDS SUMMARY | 2023-10-06 02:02 | XMS_ITS | Encounter Summary ---
Author Organization [facility] Address [facility] [place] [address] Care Team Providers Care Engineering Test Specialist Name Role Phone Gissell Davis APRN Primary Care Provider Encounter Details Date Type Department Care Team (Late st Contact Info) Description 12/28/2018 10:45 AM EST Anesthesia Event [place] [address] Gaudencio Caraballo MD [facility] [place] [address] Poonam Day MD [facility] [place] [address] Anesthesia Record Procedure Summary Procedure Name Responsible [...] IV Line - Single Lumen 12/28/18; 0939; [id number] catheter system; 20 gauge, 1 in length; [...] Procedure Summary Date: 12/28/18 Room / Location: [facility] MAIN OR Anesthesia Start: 1045 Anesthesia Stop: 1322 Procedures: CYSTOURETEROSCOPY, LITHOTRIPSY (WRVU 7.5) (Bilateral Ureter) MODIFIER HOLMIUM LASER (N/A ) Diagnosis: (STONE) Surgeon: Nena Ace MD Responsible Provider: Gaudencio Caraballo MD Anesthesia Type: general ASA Status: 2 All Anesthesia Providers: Anesthesiologist: Gaudencio Caraballo MD Target Developer: Poonam Day MD Vitals Value Taken Time BP 121/76 12/28/2018 1:45 PM Temp Pulse Resp SpO2 96 % 12/28/2018 1:55 PM Pain Level Vitals shown include unvalidated device data. Patient Location: PACU/[facility] Level of Consciousness: Awake and [...] 7.5) performed by Nena Ace MD at [facility] MAIN OR ??? PRO CYSTO/URETERO/PYELOSCOPY, CALCULUS TX Bilateral 11/16/2018 CYSTOURETHROSCOPY WITH UTETEROSCOPY, W\REMOVAL, MANIPULATION OF CALCULUS (WRVU 6.75) performed by Nena Ace MD at [facility] MAIN OR ??? PRO CYSTOSCOPY, INSERT URETERAL STENT Bilateral 10/16/2018 CYSTO, STENT PLACEMENT (WRVU 2.82) performed by Agustin Crespo MD at [facility] MAIN OR ??? PRO CYSTOSCOPY, INSERT URETERAL STENT Bilateral 11/16/2018 CYSTO, STENT PLACEMENT (WRVU 2.82) performed by Nena Ace MD at [facility] OR ??? PRO CYSTOURETHROSCOPY, URETER CATHETER Bilateral 10/16/2018 CYSTO, RETROGRADE, URETEROPYELOGRAPHY (WRVU 2.37) performed by Agustin Crespo MD at [facility] MAIN OR Social History Tobacco Use ??? [...] 50 mL Mini-Bag Plus 2 g, Intravenous, TOP AND TRIM WORKER TO O.R., 1 dose, On Mon12/28/18 [...] mg documented in this encounter Care Teams Engineering Test Specialist Relationship Specialty Start Date End Date Gissell Davis, PRINCIPAL EXAMINER [address] [place] [address] PCP - General Family Medicine 08/21/18 11/12/21 documented as of this encounter
--- OUTSIDE RECORDS SUMMARY | 2023-10-06 02:02 | XMS_ITS | Encounter Summary ---
Author Organization [facility] [place] [address] Care Team Providers Care Colorer Name Role Phone Susan Gissell Murphy APRN Primary Care Provider [phone] Encounter Details Date Type Department Care Team (Late st Contact Info) Description 02/04/2019 1:00 PM EST [place] [address] Stacey Leblanc MD [facility] [place] [address] Bilateral nephrolithiasis Social History Tobacco Use Types [...] and cola. You do not need to biiggg28 ounces of water today. Urination: You will likely have a small amount of blood in your urine for the next several days. This is normal; however, if you are passing large amounts of blood clots or are unable to void please call our office at [phone] before 5PM or [phone] after hours. Please call if: * you have copious blood in your urine * fevers greater than 101.3 F * you are unable to void The number for questions is [phone] before 5 PM weekdays and [phone] after 5 PM and weekends. Follow-up: 6 [...] procedure they were given 1 dose ciprofloxin. Stcaey Leblanc MD PROCEDURE OR DERABLES documented in this encounter Visit Diagnoses Diagnosis Bilateral nephrolithiasis documented in this encounter Care Teams Colorer Relationship Specialty Start Date End Date Gissell Davis APRN [address] [place] [address] PCP - General Family Medicine 08/21/18 11/12/21 documented as of this encounter
--- OUTSIDE RECORDS SUMMARY | 2023-10-06 02:02 | XMS_ITS | Encounter Summary ---
[place] [address] Care Team Providers Care Historical Society Director Name Role Phone Gissell Davis APRN Primary Care Provider [phone] Reason for Referral * Diagnostic Test (Routine) - Closed Specialty Diagnoses / Procedures Referred By Contac t Referred To Contact Radiology Diagnoses Status post left partial knee replacement Left knee pain, unspecified chronicity Procedures US Extremity Non Vascular MSK (Muscles Joints) Left Raheel Gongora MD [address] [place] [address] [facility] [place] [address] Referral ID Status Reason Start Date Expiration Date V isits Requested Visits Authorized [id number] Closed Specialty Service Requested 10/21/2020 04/20/2022 1 1 Reason for Visit * Diagnostic Test (Routine) - Closed Specialty Diagnoses / Procedures Referred By Contac t Referred To Contact Radiology Diagnoses Status post left partial knee replacement Left knee pain, unspecified chronicity Procedures US Extremity Non Vascular MSK (Muscles Joints) Left Raheel Gongora MD [address] [place] [address] [facility] [place] [address] Referral ID Status Reason Start Date Expiration Date V isits Requested Visits Authorized [id number] Closed Specialty Service Requested 10/21/2020 04/20/2022 1 1 Encounter Details Date Type Department Care Team (Latest Contact Info) Description 11/04/2020 3:04 PM EDT - 11/04/2020 11:59 PM EDT Hospital Encounter [place] [address] Raheel Gongora MD [address] [place] [address] Status post left partial knee replacement; Left [...] who have questions please contact the health infant caregiver that requested your imaging first. ? Electronically signed by: Elizabeth Hanson MD, [facility] ([phone]), at 11/04/2020 4:25 PM Narrative 11/04/2020 4:25 [...] patients who have questions please contactthe health infant caregiver that requested your imaging first. Electronically signed by: Elizabeth Hanson MD, [facility]([phone]), at 11/04/2020 4:25 PM Raheel Gongora MD IMG US GEN ORDERABLE S documented in this encounter Visit Diagnoses Diagnosis Status post left partial knee replacement Knee joint replacement by other means Left knee pain, unspecified chronicity documented in this encounter Care Teams Historical Society Director Relationship Specialty Start Date End Date Gissell Davis APRN [address] [place] [address] PCP - General Family Medicine 08/21/18 11/12/21 documented as of this encounter
--- OUTSIDE RECORDS SUMMARY | 2023-10-06 02:02 | XMS_ITS | Encounter Summary ---
[place] [address] Care Team Providers Care Wardrobe Specialty Worker Name Role Phone Gissell Davis APRN Primary Care Provider [phone] Encounter Details Date Type Department Care Team (Late st Contact Info) Description 12/26/2018 [place] [phone] Gonzalo Goodrich MD [facility] UROLOGY DEPT [place] [id number] Social History Tobacco Use Types Packs/Day Years [...] [place] (probable contaminant) in Barbara's UC[facility] from [facility]. Will treat with Bactrim BID x 5 days in preparation for surgery. Gonzalo Goodrich MD, MPH Urology, PGY-3 Consult Pager #[phone] 12/26/2018 documented in this encounter Plan of Treatment Not on file documented as of this encounter Visit Diagnoses Not on filedocumented in this encounter Care Teams Wardrobe Specialty Worker Relationship Specialty Start Date End Date Gissell Davis APRN [address] [place] [address] PCP - General Family Medicine 08/21/18 11/12/21 documented as of this encounter
--- OUTSIDE RECORDS SUMMARY | 2023-10-06 02:02 | XMS_ITS | Encounter Summary ---
[place] [address] Care Team Providers Care Health Manager Name Role Phone Gissell Davis APRN Primary Care Provider [phone] Encounter Details Date Type Department Care Team (Late st Contact Info) Description 05/06/2019 Ancillary Procedure [place] [address] Gissell Davis APRN [address] [place] [address] Social History Tobacco Use Types Packs/Day Years [...] DX Knee (05/06/2019 12:00 AM EDT) Narrative [facility] - 03/17/2020 3:58 PM EST This exam is auto-finalizing. It's purpose is for storage only. Gissell Davis APRN [facility] [place] ORD ERABLES [facility] [place], [place] documented in this encounter Visit Diagnoses Not on filedocumented in this encounter Care Teams Health Manager Relationship Specialty Start Date End Date Gissell Davis APRN [address] [place] [address] PCP - General Family Medicine 08/21/18 11/12/21 documented as of this encounter
--- OUTSIDE RECORDS SUMMARY | 2023-10-06 02:02 | XMS_ITS | Encounter Summary ---
Author Organization [facility] [place] [address] Care Team Providers Care Combination Worker Name Role Phone Gissell Davis APRN Primary Care Provider Encounter Details Date Type Department Care Team (Late st Contact Info) Description 04/02/2019 [place] [phone] Stacey Leblanc MD [facility] [address] Social History Tobacco Use Types Packs/Day Years [...] on filedocumented in this encounter Care Teams Combination Worker Relationship Specialty Start Date End Date Gissell Davis APRN [address] [place] [address] PCP - General Family Medicine 08/21/18 11/12/21 documented as of this encounter
--- OUTSIDE RECORDS SUMMARY | 2023-10-06 02:02 | XMS_ITS | Encounter Summary ---
Author Organization [facility] Address [facility] [place] [address] Care Team Providers Care Senior Mobile Application Developer Name Role Phone Susan Gissell Murphy APRN Primary Care Provider Encounter Details Date Type Department Care Team (Late st Contact Info) Description 01/24/2019 9:00 AM EST - 01/24/2019 10:45 AM EST Surgery [place] [phone] Stacey Leblanc MD [facility] [place] [address] CYSTO, STENT PLACEMENT (WRVU 2.82) Social History [...] closest emergency room or call the hospital stem roller operator at [phone] and ask for physician instrument and control technician covering for your physician. Questions or problems after 5pm or on a weekend: Call the [facility] stem roller operator at and ask for the physician instrument and control technician covering for your doctor. * Patient Instructions* [...] stops draining please call our office at [phone] before 5PM or [phone] after hours. Call Doctor for: Please call if you have copious blood in your urine, severe back or side pain, pain not controlled by pain medications, persistent nausea and vomiting, or for any fevers greater [id number] F. The number for questions is [phone] before 5 PM weekdays and [phone] after 5 PM and weekends. Pain Medication: [...] 7.5) performed by Nena Ace MD at [facility] MAIN OR ??? PRO CYSTO/URETERO/PYELOSCOPY W/LITHOTRIPSY Bilateral 12/28/2018 ?? CYSTOURETEROSCOPY, LITHOTRIPSY (WRVU 7.5) performed by Nena Ace MD at [facility] MAIN OR ??? PRO CYSTO/URETERO/PYELOSCOPY, CALCULUS TX Bilateral 11/16/2018 ?? CYSTOURETHROSCOPY WITH UTETEROSCOPY, W\REMOVAL, MANIPULATION OF CALCULUS (WRVU 6.75) performed by Nena Ace MD at [facility] OR ??? PRO CYSTOSCOPY, INSERT URETERAL STENT Bilateral 10/16/2018 ?? CYSTO, STENT PLACEMENT (WRVU 2.82) performed by Agustin Crespo MD at [facility] OR ??? PRO CYSTOSCOPY, INSERT URETERAL STENT Bilateral 11/16/2018 ?? CYSTO, STENT PLACEMENT (WRVU 2.82) performed by Nena Ace MD at [facility] OR ??? PRO CYSTOURETHROSCOPY, URETER CATHETER Bilateral 10/16/2018 ?? CYSTO, RETROGRADE, URETEROPYELOGRAPHY (WRVU 2.37) performed by Agustin Crespo MD at [facility] OR ? No current facility-administered medications on [...] by Nena Ace MD at [facility] OR ??? PRO CYSTO/URETERO/PYELOSCOPY W/LITHOTRIPSY Bilateral 12/28/2018 ?? CYSTOURETEROSCOPY, LITHOTRIPSY (WRVU 7.5) performed by Nena Ace MD at [facility] OR ??? PRO CYSTO/URETERO/PYELOSCOPY, CALCULUS TX Bilateral 11/16/2018 ?? CYSTOURETHROSCOPY WITH UTETEROSCOPY, W\REMOVAL, MANIPULATION OF CALCULUS (WRVU 6.75) performed by Nena Ace MD at [facility] OR ??? PRO CYSTOSCOPY, INSERT URETERAL STENT Bilateral 10/16/2018 ?? CYSTO, STENT PLACEMENT (WRVU 2.82) performed by Agustin Crespo MD at [facility] OR ??? PRO CYSTOSCOPY, INSERT URETERAL STENT Bilateral 11/16/2018 ?? CYSTO, STENT PLACEMENT (WRVU 2.82) performed by Nena Ace MD at [facility] MAIN OR ??? PRO CYSTOURETHROSCOPY, URETER CATHETER Bilateral 10/16/2018 ?? CYSTO, RETROGRADE, URETEROPYELOGRAPHY (WRVU 2.37) performed by Agustin Crespo MD at [facility] MAIN OR ? No current facility-administered [...] Leblanc MD - 01/24/2019 10:13 AM EST [facility] [place] [place] Operative Note Patient Name: Barbara Chapman : [id number] MR#: [id number] Case Date: 01/24/2019 Surgeon: Surgeon(s) and Role: [...] procedure. Preoperative antibiotics were administered. The 22 danish rigid cystoscope was inserted to the bladder. [...] pollack catheter was removed and a 6 danish by 26 centimeter double J stent was [...] Operative Note Patient Name: Barbara Chapman : [id number] MR#: [id number] Case Date: 01/24/2019 Surgeon: Surgeon(s) and Role: [...] OR USE Routine 01/24/2019 10:18 AM EST [facility] KIDNEY STONE ANALYSIS Routine 01/24/2019 9:57 AM EST Cystourethroscopy, Ureter Catheter ([id number]) Yes 01/24/2019 8:34 AM EST Ureteral obstruction MODIFIER HOLMIUM LASER Yes 01/24/2019 8:34 AM EST Ureteral obstruction Cysto/Uretero/Pyelo scopy, Calculus Tx ([id number]) Yes 01/24/2019 8:34 AM EST Ureteral obstruction Cysto/Uretero/Pyelo scopy W/Lithotripsy ([id number]) Yes 01/24/2019 8:34 AM EST Ureteral obstruction Cystoscopy, Insert Ureteral Stent ([id number]) Yes 01/24/2019 8:34 AM EST Ureteral obstruction documented in this encounter Results * XR Fluoro No Rad <1Hr - OR Use (01/24/2019 10:18 AM EST) Narrative [facility] - 01/24/2019 10:19 AM EST This exam is auto-finalizing. No interpretation was done. Stacey Leblanc MD IMG FLUORO ALISTAIRJocelyne WHITE Performing Organization Address [facility] Co de Phone Number [facility] [place] * Kidney Stone Analysis (01/24/2019 9:57 AM EST) Kidney Stone Analysis (MAY) Test ?Result ? Flag ??Unit ??RefValue Kidney Stone Analysis ??Source: ? Right Ureter ??Interpretation ?SEE COMMENTS ?80% Calcium oxalate monohydrate ?20% Uric acid ?Test Performed by: ?[facility] ?[address] [place] [address] ?Parts Representative: Mario River M.D. Ph.D.; CLIA# [id number] [facility] Calculus specimen (specimen) 01/24/2019 9:57 AM EST 01/24/2019 1:41 PM EST Narrative Resulting Agency Comment Spec In Lab Stacey Leblanc MD LAB SEND OUT OR DERABLES Performing Organization Address [facility]/ZIP Co [place] [address] documented in this encounter Visit Diagnoses Not [...] mL Mini-Bag Plus (COMPLETED) 2 g, Intravenous, DESIGN TEACHER TO O.R., 1 dose, On Christen 01/24/19 [...] cysto) documented in this encounter Care Teams Senior Mobile Application Developer Relationship Specialty Start Date End Date Gissell Davis APRN [address] [place] [address] PCP - General Family Medicine 08/21/18 11/12/21 documented as of this encounter
--- OUTSIDE RECORDS SUMMARY | 2023-10-06 02:02 | XMS_ITS | Encounter Summary ---
[place] [address] Care Team Providers Care Butter Wrapper Name Role Phone Unknown Primary Care Provider [...] on filedocumented in this encounter Care Teams Butter Wrapper Relationship Specialty Start Date End Date Unknown None PCP - General 11/13/21 documented as of this encounter
--- OUTSIDE RECORDS SUMMARY | 2023-10-06 02:02 | XMS_ITS | Encounter Summary ---
Author Organization [facility] Address [facility] [place] [address] Care Team Providers Care Undraped Artist Model Name Role Phone Unknown Primary Care Provider Unavailabl e Encounter Details Date Type Department Care Team (Latest Contact Info) Description 12/01/2021 9:58 PM EDT - 12/01/2021 11:59 PM EDT Hospital [place] [phone] Discharge Disposition: Home Social History Tobacco Use [...] Report (12/01/2021 12:30 PM EDT) Final Diagnosis [id number] ? Location: [facility] The signing pathologist has [...] Lakisha Verified: ??12/10/2021 10:54 ??Pathologist Performed at: ??-[facility] [place], [place], [place] ADDITIONAL STUDIES Immunohistochemistry Studies: Formalin-fixed, paraffin-embedded [...] labeled C1. ??det/jnr 12/10/2021 10:54 AM EDT [facility] GI Biopsy 12/01/2021 12:3 0 PM EDT 12/01/2021 12:30 PM EDT GI Biopsy 12/01/2021 12:3 0 PM EDT 12/01/2021 12:30 PM EDT GI Biopsy 12/01/2021 12:3 0 PM EDT 12/01/2021 12:30 PM EDT Ward Rosa MD PATHOLOGY/CYTO LOGY ORDERABLES Performing Organization Address City/State/[facility] Co de Phone Number [facility] [address] documented in this encounter Visit Diagnoses Not on filedocumented in this encounter Care Teams Undraped Artist Model Relationship Specialty Start Date End Date Unknown None PCP - General 11/13/21 documented as of this encounter
--- OUTSIDE RECORDS SUMMARY | 2023-10-06 02:02 | XMS_ITS | Encounter Summary ---
[place] [address] Care Team Providers Care Drawer Fitter Name Role Phone Unknown Primary Care Provider Unavailabl e Reason for Visit * Diagnostic Test (Routine) - Closed Specialty Diagnoses / Procedures Referred By Contac t Referred To Contact Gastroenterology Diagnoses Heartburn HREM - heartburn see also ph imp Procedures High Resolution Esophageal Manometry HREM - heartburn Ward Rosa MD [address] [place] [phone] [facility] [address] [place] [address] Referral ID Status Reason Start Date Expiration Date V isits Requested Visits Authorized [id number] Closed Test Only 12/15/2021 12/15/2022 1 1 Encounter Details Date Type Department Care Team ([facility] Contact Info) Description 03/22/2022 8:00 AM EST Office [place] [address] Heartburn Social History Tobacco Use Types Packs/Day [...] of this encounter Progress Notes * Nellie aBzan RN - 03/22/2022 8:00 AM EST A [...] MANOMETRY PROCEDURE NOTE Patient: Barbara Chapman Address: [address] [place] [address] : 1970 Date of service: 03/22/2022 Indication: [...] relaxation pressure: 0 mmHg (normal <12 mmHg) Chief Marketing Officer swallow: Impressions based on Juneau Classification v4.0: No evidence of a clinically significant disorder of peristalsis or EGJ outflow obstruction. *These findings assume that mechanical obstruction has been ruled out. Gonzalo Dennis MD, FRCPC Section of Gastroenterology and Hepatology [facility] [place] [address] V: [phone] F: [phone] CC/EC: Unknown None * Gonzalo Dennis MD - 03/22/2022 8:00 AM EST Catheter-based pH/impedance procedure report Patient: Barbara Chapman Address: [address] [place] [address] : 1970 Referring provider: Ward Rosa Date [...] the Rowland Consensus. Gut. 2018 Aug; 67(7): 1492-2144. 2) Validation of the Rowland classification for GORD diagnosis: acid exposure time assessed by prolonged wireless pH monitoring in healthy controls and patients with erosive oesophagitis. Gut. 2020. doi10.1136/kxeenf-1784-759708. Gonzalo Dennis MD, FRCPC Section of Gastroenterology and Hepatology [facility] [place] [address] [address] V: [phone] F: [phone] CC/EC: Unknown None documented in this encounter Plan of Treatment Not on file documented as of this encounter Visit Diagnoses Diagnosis Heartburn documented in this encounter Care Teams Drawer Fitter Relationship Specialty Start Date End Date Unknown None PCP - General 11/13/21 documented as of this encounter
--- OUTSIDE RECORDS SUMMARY | 2023-10-06 02:02 | XMS_ITS | Encounter Summary ---
[place] [address] Care Team Providers Care Dag Coater Name Role Phone Susan Gissell Katherine YOU Primary Care Provider Encounter Details Date Type Department Care Team (Latest Contact Info) Description 11/16/2018 7:40 AM EDT Laboratory Appointment Lab [address] [place] [phone] Other symptoms and signs involving the genitourinary [...] Culture No growth (Less than 1,000 cfu/ml). [facility] Urine specimen obtained by clean catch procedure (specimen) 11/16/2018 7:43 AM EDT 11/16/2018 8:33 AM EDT Narrative Resulting Agency Comment Spec In Lab Nena Ace MD MICROBIOLOGY - GENER AL ORDERABLES [facility] [place] [address] documented in this encounter Visit Diagnoses Diagnosis Other symptoms and signs involving the genitourinary system documented in this encounter Care Teams Dag Coater Relationship Specialty Start Date End Date Gissell Davis APRN [address] [place] [address] PCP - General Family Medicine 08/21/18 11/12/21 documented as of this encounter
--- OUTSIDE RECORDS SUMMARY | 2023-10-06 02:02 | XMS_ITS | Encounter Summary ---
Author Organization [facility] [place] [address] Care Team Providers Care Optics Engineer Name Role Phone Gissell Davis APRN Primary Care Provider [phone] Encounter Details Date Type Department Care Team (Late st Contact Info) Description 01/21/2019 [place] [phone] Mariella Olivera LPN Social History Tobacco Use [...] 01/21/2019 3:14 PM EST Call placed to [facility] lab regarding urine culture results. No answer. Will try back at later time. documented in this encounter Plan of Treatment Not on file documented as of this encounter Visit Diagnoses Not on filedocumented in this encounter Care Teams Optics Engineer Relationship Specialty Start Date End Date Gissell Davis APRN [address] [place] [address] PCP - General Family Medicine 08/21/18 11/12/21 documented as of this encounter
--- OUTSIDE RECORDS SUMMARY | 2023-10-06 02:02 | XMS_ITS | Encounter Summary ---
Author Organization [facility] Address [facility] [place] [address] Care Team Providers Care Quartz Miner Name Role Phone Gissell Davis APRN Primary Care Provider [phone] Encounter Details Date Type Department Care Team (Late st Contact Info) Description 11/16/2018 9:41 AM EDT Anesthesia Event Main Operating Room [facility] [place] [phone] Stacey Sanchez MD [facility] [place] [address] Anesthesia Record Procedure Summary Procedure Name Responsible Anesthesiologist Anesthesia Start Time Anesthesia Stop Time CYSTO, STENT PLACEMENT (WRVU 2.82) (Bilateral: Ureter) Stacey Sanchez MD 11/16/18 0941 11/16/18 1310 Events Date Time Event Comment 11/16/2018 0923 0941 AN Verify 0941 Start 0941 An Start Data 0947 An Induction 0948 An Intubation 0949 Anesthesia Ready 1254 Break/Relief In Natalia D Gig gy, PLUG WIRER 1301 Extubation/LMA Out 1303 an stop data [...] Procedure Summary Date: 11/16/18 Room / Location: [facility] OR Anesthesia Start: 940 Anesthesia [...] All Anesthesia Providers: Anesthesiologist: Stacey Sanchez MD Insulator Helper: Qiana Negro MD Vitals Value Taken Time BP 124/84 11/16/2018 1:15 PM Temp 36.8 ??C (98.2 ??F) 11/16/2018 1:09 PM Pulse Resp 18 11/16/2018 1:15 PM SpO2 96 % 11/16/2018 1:25 PM Pain Level Vitals shown include unvalidated device data. Patient Location: PACU/[facility] Level of Consciousness: Awake and Alert [...] 2.82) performed by Agustin Crespo MD at [facility] MAIN OR ??? PRO CYSTOURETHROSCOPY, URETER CATHETER Bilateral 10/16/2018 CYSTO, RETROGRADE, URETEROPYELOGRAPHY (WRVU 2.37) performed by Agustin Crespo MD at [facility] MAIN OR Social History Tobacco Use [...] despite PPI, has added carafate to regimen. Qzptbsmi-ht-coacyb asthma, inhibits activity, uses rescue inhaler several [...] dextrose 5% 200 mL 400 mg, Intravenous, FAMILY PRACTICE NURSE PRACTITIONER TO O.R., 1 dose, On Mon11/16/18 at [...] mg documented in this encounter Care Teams Quartz Miner Relationship Specialty Start Date End Date Gissell Davis APRN [address] [place] [address] PCP - General Family Medicine 08/21/18 11/12/21 documented as of this encounter
--- OUTSIDE RECORDS SUMMARY | 2023-10-06 02:02 | XMS_ITS | Encounter Summary ---
Author Organization [facility] [address] Care Team Providers Care Company Tanker Truck Driver Name Role Phone Gissell Davis APRN Primary Care Provider [phone] Encounter Details Date Type Department Care Team (Late st Contact Info) Description 02/05/2019 [place] [phone] Stacey Leblanc MD [facility] [place] [address] Social History Tobacco Use Types Packs/Day Years [...] Per PT request, faxed US order to [facility] at [phone]. Asked them to please have done before 03/19/19 so that we have time to get the records. Asked them to please send the images and reports. documented in this encounter Plan of Treatment Not on file documented as of this encounter Visit Diagnoses Not on filedocumented in this encounter Care Teams Company Tanker Truck Driver Relationship Specialty Start Date End Date Gissell Davis APRN [address] [place] [address] PCP - General Family Medicine 08/21/18 11/12/21 documented as of this encounter
--- OUTSIDE RECORDS SUMMARY | 2023-10-06 02:02 | XMS_ITS | Encounter Summary ---
Author Organization [facility] [place] [address] Care Team Providers Care Assistant Sales Center Manager Name Role Phone Gissell Davis APRN Primary Care Provider Encounter Details Date Type Department Care Team (Late st Contact Info) Description 11/17/2020 Telephone [place] [address] Christopher Pillai Social History Tobacco Use Types [...] calls can be handled by: [facility] Physician Director documented in this encounter Plan of Treatment Not on file documented as of this encounter Visit Diagnoses Not on filedocumented in this encounter Care Teams Assistant Sales Center Manager Relationship Specialty Start Date End Date Gissell Davis APRN [address] [place], [place] [address] PCP - General Family Medicine 08/21/18 11/12/21 documented as of this encounter
--- OUTSIDE RECORDS SUMMARY | 2023-10-06 02:02 | XMS_ITS | Encounter Summary ---
Author Organization [facility] [place] [address] Care Team Providers Care Wood Casket Maker Name Role Phone SarthakGissell barriga Katherine YOU Primary Care Provider Encounter Details Date Type Department Care Team (Late st Contact Info) Description 05/04/2020 Telephone [place] [phone] Anne Marie Soni RN Social History Tobacco [...] dr. Gamino's team. Anne Marie Soni RN [facility] Ortho Team documented in this encounter Plan of Treatment Not on file documented as of this encounter Visit Diagnoses Not on filedocumented in this encounter Care Teams Wood Casket Maker Relationship Specialty Start Date End Date Gisesll Davis APRN [address] [place] [address] PCP - General Family Medicine 08/21/18 11/12/21 documented as of this encounter
--- OUTSIDE RECORDS SUMMARY | 2023-10-06 02:02 | XMS_ITS | Encounter Summary ---
Author Organization [facility] [place] [address] Care Team Providers Care Assistant Mechanic Name Role Phone Gissell Davis APRN Primary Care Provider [phone] Reason for Visit * Reason Comments Establish [...] SURGERIES Raheel Gongora MD [address] [place] [address] [facility] [address] [place] [phone] Referral ID Status Reason Start Date Expiration Date V isits Requested Visits Authorized [id number] Closed Consult, Test & Treat [facility] PCP Updated and/or Approved 03/17/2020 03/17/2021 6 6 Encounter Details Date Type Department Care Team (Late st Contact Info) Description 04/23/2020 1:00 PM EST Office Visit [place] [address] Ward Sheffield MD [facility] [place] [address] Patella baja Social History Tobacco [...] BILATERAL knee. ARTHROPLASTY PROCEDURES: (Dr. Gongora / [place], [place]) 1. 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 LEFT TOTAL KNEE EXPLANT, SPACER PLACEMENT 3. LEFT TOTAL KNEE REPLANT (On chronic antibiotic suppression) HISTORY OF PRESENT ILLNESS: I had the pleasure of seeing Barbara Chapman in consultation today. She was referred to me by Dr. Gongora in [place], [place] for a second opinion. Barbara Chapman [...] 7.5) performed by Nena Ace MD at [facility] MAIN OR ??? PRO CYSTO/URETERO/PYELOSCOPY W/LITHOTRIPSY Bilateral 12/28/2018 CYSTOURETEROSCOPY, LITHOTRIPSY (WRVU 7.5) performed by Nena Ace MD at [facility] MAIN OR ??? PRO CYSTO/URETERO/PYELOSCOPY W/LITHOTRIPSY N/A 01/24/2019 CYSTOURETEROSCOPY, LITHOTRIPSY (WRVU 7.5) performed by Stacey Leblanc MD at [facility] OSC ??? PRO CYSTO/URETERO/PYELOSCOPY, CALCULUS TX Bilateral 11/16/2018 CYSTOURETHROSCOPY WITH UTETEROSCOPY, W\REMOVAL, MANIPULATION OF CALCULUS (WRVU 6.75) performed by Nena Ace MD at [facility] MAIN OR ??? PRO CYSTO/URETERO/PYELOSCOPY, CALCULUS TX N/A 01/24/2019 CYSTOURETHROSCOPY WITH UTETEROSCOPY, W\REMOVAL, MANIPULATION OF CALCULUS (WRVU 6.75) performed by Stacey Leblanc MD at [facility] OSC ??? PRO CYSTOSCOPY, INSERT URETERAL STENT Bilateral 10/16/2018 CYSTO, STENT PLACEMENT (WRVU 2.82) performed by Agustin Crespo MD at [facility] MAIN OR ??? PRO CYSTOSCOPY, INSERT URETERAL STENT Bilateral 11/16/2018 CYSTO, STENT PLACEMENT (WRVU 2.82) performed by Nena Ace MD at [facility] MAIN OR ??? PRO CYSTOSCOPY, INSERT URETERAL STENT N/A 01/24/2019 CYSTO, STENT PLACEMENT (WRVU 2.82) performed by Stacey Leblanc MD at [facility] OSC ??? PRO CYSTOURETHROSCOPY, URETER CATHETER Bilateral 10/16/2018 CYSTO, RETROGRADE, URETEROPYELOGRAPHY (WRVU 2.37) performed by Agustin Crespo MD at [facility] MAIN OR ??? PRO CYSTOURETHROSCOPY, URETER CATHETER Right 01/24/2019 CYSTO, RETROGRADE, URETEROPYELOGRAPHY (WRVU 2.37) performed by Stacey Leblanc MD at [facility] OSC ALLERGIES: Allergies Allergen Reactions ??? Latex ??? Codeine Phosphate ??? Erythromycin Base ??? Gloves, Latex ??? Latex Dams Allergies to metals: None known. FAMILY HISTORY: Family history was reviewed with patient and is as listed below. There is not a family history of bleeding or anesthetic complications. History reviewed. No pertinent family history. SOCIAL HISTORY: The patient lives in [facility] with her spouse. Social History Tobacco Use [...] baja documented in this encounter Care Teams Assistant Mechanic Relationship Specialty Start Date End Date Gissell Davis APRN [address] [place], [place] [address] [address] [place] [address] PCP - General Family Medicine 08/21/18 11/12/21 documented as of this encounter
--- OUTSIDE RECORDS SUMMARY | 2023-10-06 02:02 | XMS_ITS | Encounter Summary ---
Author Organization [facility] Address [facility] [place] [address] Care Team Providers Care Blanching Machine Operator Name Role Phone Gissell Davis APRN Primary Care Provider [phone] Encounter Details Date Type Department Care Team (Late st Contact Info) Description 01/24/2019 7:06 AM EST - 01/24/2019 10:59 AM EST Hospital Encounter [place] [address] Stacey Leblanc MD [facility] [place] [address] Discharge Disposition: Home Social History Tobacco Use [...] closest emergency room or call the hospital lasting machine operator at [phone] and ask for physician precision assembly inspector covering for your physician. Questions or problems after 5pm or on a weekend: Call the [facility] lasting machine operator at and ask for the physician precision assembly inspector covering for your doctor. * Patient Instructions* [...] stops draining please call our office at [phone] before 5PM or [phone] after hours. Call Doctor for: Please call if you have copious blood in your urine, severe back or side pain, pain not controlled by pain medications, persistent nausea and vomiting, or for any fevers greater [id number] F. The number for questions is [phone] before 5 PM weekdays and [phone] after 5 PM and weekends. Pain Medication: [...] 7.5) performed by Nena Ace MD at [facility] OR ??? PRO CYSTO/URETERO/PYELOSCOPY W/LITHOTRIPSY Bilateral 12/28/2018 ?? CYSTOURETEROSCOPY, LITHOTRIPSY (WRVU 7.5) performed by Nena Ace MD at [facility] OR ??? PRO CYSTO/URETERO/PYELOSCOPY, CALCULUS TX Bilateral 11/16/2018 ?? CYSTOURETHROSCOPY WITH UTETEROSCOPY, W\REMOVAL, MANIPULATION OF CALCULUS (WRVU 6.75) performed by Nena Ace MD at [facility] OR ??? PRO CYSTOSCOPY, INSERT URETERAL STENT Bilateral 10/16/2018 ?? CYSTO, STENT PLACEMENT (WRVU 2.82) performed by Agustin Crespo MD at [facility] OR ??? PRO CYSTOSCOPY, INSERT URETERAL STENT Bilateral 11/16/2018 ?? CYSTO, STENT PLACEMENT (WRVU 2.82) performed by Nena Ace MD at [facility] OR ??? PRO CYSTOURETHROSCOPY, URETER CATHETER Bilateral 10/16/2018 ?? CYSTO, RETROGRADE, URETEROPYELOGRAPHY (WRVU 2.37) performed by Agustin Crespo MD at [facility] OR ? No current facility-administered [...] 7.5) performed by Nena Ace MD at [facility] OR ??? PRO CYSTO/URETERO/PYELOSCOPY W/LITHOTRIPSY Bilateral 12/28/2018 ?? CYSTOURETEROSCOPY, LITHOTRIPSY (WRVU 7.5) performed by Nena Ace MD at [facility] OR ??? PRO CYSTO/URETERO/PYELOSCOPY, CALCULUS TX Bilateral 11/16/2018 ?? CYSTOURETHROSCOPY WITH UTETEROSCOPY, W\REMOVAL, MANIPULATION OF CALCULUS (WRVU 6.75) performed by Nena Ace MD at [facility] OR ??? PRO CYSTOSCOPY, INSERT URETERAL STENT Bilateral 10/16/2018 ?? CYSTO, STENT PLACEMENT (WRVU 2.82) performed by Agustin Crespo MD at [facility] OR ??? PRO CYSTOSCOPY, INSERT URETERAL STENT Bilateral 11/16/2018 ?? CYSTO, STENT PLACEMENT (WRVU 2.82) performed by Nena Ace MD at [facility] MAIN OR ??? PRO CYSTOURETHROSCOPY, URETER CATHETER Bilateral 10/16/2018 ?? CYSTO, RETROGRADE, URETEROPYELOGRAPHY (WRVU 2.37) performed by Agustin Crespo MD at [facility] MAIN OR ? No current facility-administered medications [...] Leblanc MD - 01/24/2019 10:13 AM EST [facility] Operative Note Patient Name: Barbara Chapman : [id number] MR#: [id number] Case Date: 01/24/2019 Surgeon: Surgeon(s) and Role: [...] procedure. Preoperative antibiotics were administered. The 22 turkish rigid cystoscope was inserted to the bladder. [...] pollack catheter was removed and a 6 turkish by 26 centimeter double J stent was [...] Operative Note Patient Name: Barbara Chapman : [id number] MR#: [id number] Case Date: 01/24/2019 Surgeon: Surgeon(s) and Role: [...] OR USE Routine 01/24/2019 10:18 AM EST [facility] KIDNEY STONE ANALYSIS Routine 01/24/2019 9:57 AM EST Cystourethroscopy, Ureter Catheter (76998) Yes 01/24/2019 8:34 AM EST Ureteral obstruction MODIFIER HOLMIUM LASER Yes 01/24/2019 8:34 AM EST Ureteral obstruction Cysto/Uretero/Pyelo scopy, Calculus Tx (84625) Yes 01/24/2019 8:34 AM EST Ureteral obstruction Cysto/Uretero/Pyelo scopy W/Lithotripsy (48502) Yes 01/24/2019 8:34 AM EST Ureteral obstruction Cystoscopy, Insert Ureteral Stent (85703) Yes 01/24/2019 8:34 AM EST Ureteral obstruction documented in this encounter Results * XR Fluoro No Rad <1Hr - OR Use (01/24/2019 10:18 AM EST) Narrative [facility] - 01/24/2019 10:19 AM EST This exam is auto-finalizing. No interpretation was done. Stacey Leblanc MD IMG FLUORO TRACEY WHITE Performing Organization Address [facility] Co de Phone Number [place], [place] * Kidney Stone Analysis (01/24/2019 9:57 AM EST) Kidney Stone Analysis (MAY) Test ?Result ? Flag ??Unit ??RefValue Kidney Stone Analysis ??Source: ? Right Ureter ??Interpretation ?SEE COMMENTS ?80% Calcium oxalate monohydrate ?20% Uric acid ?Test Performed by: ?[facility] ?[address] [place] [address] ?Data Consultant: Mario River M.D. Ph.D.; CLIA# [id number] [facility] Calculus specimen (specimen) 01/24/2019 9:57 AM EST 01/24/2019 1:41 PM EST Narrative Resulting Agency Comment Spec In Lab Stacey Leblanc MD LAB SEND OUT OR DERABLES Performing Organization Address [facility] Co de Phone Number [facility] [place] [address] documented in this encounter Visit Diagnoses Not [...] mL Mini-Bag Plus (COMPLETED) 2 g, Intravenous, LIQUID SUGAR MELTER TO O.R., 1 dose, On Christen 01/24/19 [...] cysto) documented in this encounter Care Teams Blanching Machine Operator Relationship Specialty Start Date End Date Gissell Davis, [place] [address] [place] [address] PCP - General Family Medicine 08/21/18 11/12/21 documented as of this encounter
--- OUTSIDE RECORDS SUMMARY | 2023-10-06 02:02 | XMS_ITS | Encounter Summary ---
[place] [address] Care Team Providers Care Lead Java Programmer Name Role Phone Gissell Davis APRN Primary Care Provider [phone] Reason for Visit * Reason Onset Date Comments Questions 04/29/2020 Encounter Details Date Type Department Care Team (Late st Contact Info) Description 04/29/2020 [place] [phone] Gonzalo Leon Questions Social History Tobacco Use [...] to her referring providor, Dr. Rivas at [place], [place] PH: [phone] FAX: [phone] ?? Plan: spoke w/Dr. Sheffield and relayed to pt we will complete request when demand inspector is ready ?? Patient/Responsible green party voices an understanding of advice? yes ?? Patient/Responsible green party intends to comply with action/disposition: yes documented in this encounter Plan of Treatment Not on file documented as of this encounter Visit Diagnoses Not on filedocumented in this encounter Care Teams Lead Java Programmer Relationship Specialty Start Date End Date Gissell Davis APRN [address] [place] [address] PCP - General Family Medicine 08/21/18 11/12/21 documented as of this encounter
--- OUTSIDE RECORDS SUMMARY | 2023-10-06 02:03 | XMS_ITS | Encounter Summary ---
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 Language: Tamazight Race: White Ethnicity: Not nor Admit date: [...] joint infection and revision who presented to [facility] with flank pain andfound to have bilateral obstructive nephrolithiasis and acute kidney injury. ?? Ms. Chapman states that she developed flank pain about 2 days ago that radiated to her groin. She denied any fevers or chills. She has no history of nephrolithiasis. She denies any irritative voiding/LUTS or hematuria. CT imaging at [facility] showed bilateral ureteral stones. She was afebrile and hemodynamically stable upon admission. Her WBC was 11 and her creatinine was 3.64. UA was negative for nitrites, positive for trace leukocyte esterase and 5-10 WBC with many squams. This did not reflex for culture. Given her RENAE and bilateral stone burden, she was transferred to [facility] for further urologic care. ?? Upon arrival, Ms. Chapman is hemodynamically stable and afebrile. She states that her pain improved after fentanyl. She is unable to take NSAIDs given her fundoplication. She is currently comfortable,but states that the pain at its worst is unbearable. Hospital Course: Patient was admitted to [facility] from [facility] and underwent the above procedure. [...] to urinate please call our office at [phone] before 5PM or [phone] after hours. Kidney Stone Patients: Try and [...] side pain, you should call our office [phone] before 5PM or [phone] after hours. Call Doctor for: Please call if you have copious blood in your urine, severe back or side pain, pain not controlled by pain medications, persistent nausea and vomiting, or for any fevers greater gjdv284.3 F. The number for questions is [phone] before 5 PM weekdays and [phone] after 5 PM and weekends. Pain Medication: No driving for 8 hours after any dose of opioid pain medication if one was prescribed for you. You may use ibuprofen (motrin, advil) in addition to this medication if your pain is not totally controlled by the opioid. Follow-up: Please call [phone] (clinic number for appointments) to confirm date [...] PM Reggie Hull MD Infectious Disease at [facility] Arrive at: Photograph Retoucher Area [phone] Follow-Up: Future Appointments Date Time Provider Department Center 12/04/2018 12:30 PM Reggie Hull MD [facility] [address] [place] [address] Primary Care Provider: Gissell Davis, AIR CONDITIONING COIL ASSEMBLER [phone] Follow-up Recommendations for Providers: Please see discharge [...] was managed by the Urology Team at [facility]. If you have any questions or concerns, please feel free to contact us. Provider Contact Information: Urology Clinic: [facility] (after business hours): documented in this encounter [...] to urinate please call our office at [phone] before 5PM or [phone] after hours. Kidney Stone Patients: Try and [...] side pain, you should call our office [phone] before 5PM or [phone] after hours. Call Doctor for: Please call if you have copious blood in your urine, severe back or side pain, pain not controlled by pain medications, persistent nausea and vomiting, or for any fevers greater ouro078.3 F. The number for questions is [phone] before 5 PM weekdays and [phone] after 5 PM and weekends. Pain Medication: No driving for 8 hours after any dose of opioid pain medication if one was prescribed for you. You may use ibuprofen (motrin, advil) in addition to this medication if your pain is not totally controlled by the opioid. Follow-up: Please call [phone] (clinic number for appointments) to confirm date [...] Fay arrived to [facility] via stretcher from [facility]. No report received from facility - follow [...] joint infection and revision who presented to [facility] with flank pain andfound to have bilateral obstructive nephrolithiasis and acute kidney injury. Ms. Chapman states that she developed flank pain about 2 days ago that radiated to her groin. She denied any fevers or chills. She has no history of nephrolithiasis. She denies any irritative voiding/LUTS or hematuria. CT imaging at [facility] showed bilateral ureteral stones. She was afebrile and hemodynamically stable upon admission. Her WBC was 11 and her creatinine was 3.64. UA was negative for nitrites, positive for trace leuk esterase and 5-10 WBC with many squams. This did not reflex for culture. Given her RENAE and bilateral stone burden, she was transferred to [facility] for further urologic care. Upon arrival, Ms. [...] file Gets together: Not on file Attends orthodox service: Not on file Active member of [...] CO2 22 BUN 20* CREATININE 2.99* Microbiology: [facility] 10/15: negative for nitrites, positive for trace leuk esterase and 5-10 WBC with many squams. No reflex. 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 Ace. Dariela Tom Urology, PGY-2 Consult pager #[phone] Associated attestation - Nena Ace MD - [...] Edwards MD - 10/16/2018 5:32 PM EDT [facility] Operative Note Patient Name: Barbara Chapman : [id number] MR#: [id number] ?? Case Date: 10/16/2018 ?? Surgeon: Surgeon(s) [...] Operative Note Patient Name: Barbara Chapman : [id number] MR#: [id number] Case Date: 10/16/2018 Surgeon: Surgeon(s) and Role: [...] -- * Consult Note - Ángela Cabral [facility] - 10/16/2018 8:25 AM EDT Clinical Pharmacist Note - Renal Dose Adjustment for Antimicrobials Barbara Chapman (A# [id number]) is being treated with the following antimicrobial [...] joint infection and revision who presented to [facility] with flank pain and found to have [...] Primary care provider on file: Gissell Davis, AIR CONDITIONING COIL ASSEMBLER [phone] Advance Directive on file and Code Status: Full Code Patient???s Functional Status: Independent Living Situation: [address] [facility] [place] [address] Supports: Assessment: Patient with no apparent RNCM/SW needs at this time. No housing, transportation, insurance, resources concerns identified at this time. Supports in place to achieve a safe post-hospital transition. No identified barriers to accessing necessary care and/or follow-up after discharge. Plan: Patient to d/c home via personal car when medically ready. observation assistant/Packaging Assembler will continue to follow patient???s progress and remain available if situation changes for coordination of care, psychosocial support and/or discharge planning. Lima Morales, RN Pager [phone] * Plan of Care - Yaneli Gómez [...] 10/16/2018 5:27 PM EDT Cystourethroscopy, Ureter Catheter ([id number]) 10/16/2018 4:34 PM EDT Bilateral nephrolithiasis Cystoscopy, Insert Ureteral Stent ([id number]) 10/16/2018 4:34 PM EDT Bilateral nephrolithiasis POCT [...] of body mass or the acutely ill. http://[employer]/[facility] eGFR 34(L) >=60 mL/min/1. 73 m?? [facility] Comment: The eGFR was calculated using the CKD-EPI equation. As with all creatinine based estimates of kidney function, eGFR values calculated with the CKD-EPI equation are not accurate in patients with acute kidney failure, extremes of body mass or the acutely ill. [email or web address] Blood specimen (specimen) 10/17/2018 5:08 AM EDT 10/17/2018 5:22 AM EDT Narrative Resulting Agency Comment Spec In Lab Nena Ace MD CHEMISTRY ORDERABLES Performing Organization Address [facility] Co de Phone Number [facility] [place] [address] * POCT Glucose (10/17/2018 4:38 AM EDT) Glucose, POC 102 65 - 199 mg/dL [facility] Comment: Supplemental ranges: <140 mg/dL before meals <180 mg/dL all other times of the day Blood specimen (specimen) 10/17/2018 4:38 AM EDT 10/17/2018 4:38 AM EDT Nena Ace MD POINT OF CARE TEST O RDERABLES Performing Organization Address [facility] Co de Phone Number [facility] [place] [address] * POCT Glucose (10/16/2018 11:48 PM EDT) Glucose, POC 133 65 - 199 mg/dL [facility] Comment: Supplemental ranges: <140 mg/dL before meals <180 mg/dL all other times of the day Blood specimen (specimen) 10/16/2018 11:48 PM EDT 10/16/2018 11:48 PM EDT Nena Ace MD POINT OF CARE TEST O MEAGAN Performing Organization Address [facility] Co de Phone Number [facility] [place] [address] * POCT Glucose (10/16/2018 8:06 PM EDT) Glucose, POC 173 65 - 199 mg/dL [facility] Comment: Supplemental ranges: <140 mg/dL before meals <180 mg/dL all other times of the day Blood specimen (specimen) 10/16/2018 8:06 PM EDT 10/16/2018 8:06 PM EDT Nena Ace MD POINT OF CARE TEST O MEAGAN Performing Organization Address [facility] Co de Phone Number [facility] [place] [address] * POCT Glucose (10/16/2018 5:52 PM EDT) Glucose, POC 149 65 - 199 mg/dL [facility] Comment: Supplemental ranges: <140 mg/dL before meals <180 mg/dL all other times of the day Blood specimen (specimen) 10/16/2018 5:52 PM EDT 10/16/2018 5:52 PM EDT Nena Ace MD POINT OF CARE TEST O MEAGAN Performing Organization Address [facility] Co de Phone Number [facility] [place] [address] * POCT Glucose (10/16/2018 4:18 PM EDT) Glucose, POC 114 65 - 199 mg/dL [facility] Comment: Supplemental ranges: <140 mg/dL before meals <180 mg/dL all other times of the day Blood specimen (specimen) 10/16/2018 4:18 PM EDT 10/16/2018 4:18 PM EDT Nena Ace MD POINT OF CARE TEST O RDERABLES Performing Organization Address [facility] Co de Phone Number [facility] [place] [address] * POCT Glucose (10/16/2018 11:43 AM EDT) Glucose, POC 123 65 - 199 mg/dL [facility] Comment: Supplemental ranges: <140 mg/dL before meals <180 mg/dL all other times of the day Blood specimen (specimen) 10/16/2018 11:43 AM EDT 10/16/2018 11:43 AM EDT Nena Ace MD POINT OF CARE TEST O RDERAANN Performing Organization Address [facility] Co de Phone Number [facility] [place] [address] * POCT Glucose (10/16/2018 8:07 AM EDT) Glucose, POC 134 65 - 199 mg/dL [facility] Comment: Supplemental ranges: <140 mg/dL before meals <180 mg/dL all other times of the day Blood specimen (specimen) 10/16/2018 8:07 AM EDT 10/16/2018 8:07 AM EDT Nena Ace MD POINT OF CARE TEST O RDERABLES Performing Organization Address [facility] Co de Phone Number [facility] [place] [address] * POCT Glucose (10/16/2018 3:21 AM EDT) Glucose, POC 104 65 - 199 mg/dL [facility] Comment: Supplemental ranges: <140 mg/dL before meals <180 mg/dL all other times of the day Blood specimen (specimen) 10/16/2018 3:21 AM EDT 10/16/2018 3:21 AM EDT Nena Ace MD POINT OF CARE TEST O RDERABLES Performing Organization Address City/[facility]/ZIP Co de Phone Number [facility] [place] [address] * POCT Glucose (10/15/2018 11:33 PM EDT) Glucose, POC 155 65 - 199 mg/dL [facility] Comment: Supplemental ranges: <140 mg/dL before meals <180 mg/dL all other times of the day Blood specimen (specimen) 10/15/2018 11:33 PM EDT 10/15/2018 11:33 PM EDT Nena Ace MD POINT OF CARE TEST O RDERAANN Performing Organization Address [facility] Co de Phone Number [facility] [place] [address] * POCT Glucose (10/15/2018 7:16 PM EDT) Glucose, POC 118 65 - 199 mg/dL [facility] Comment: Supplemental ranges: <140 mg/dL before meals <180 mg/dL all other times of the day Blood specimen (specimen) 10/15/2018 7:16 PM EDT 10/15/2018 7:16 PM EDT Nena Ace MD POINT OF CARE TEST O RDERAANN Performing Organization Address City/[facility]/ZIP Co de Phone Number [facility] [place] [address] * POCT Glucose (10/15/2018 4:06 PM EDT) Glucose, POC 104 65 - 199 mg/dL [facility] Comment: Supplemental ranges: <140 mg/dL before meals <180 mg/dL all other times of the day Blood specimen (specimen) 10/15/2018 4:06 PM EDT 10/15/2018 4:06 PM EDT Nena Ace MD POINT OF CARE TEST O RDERABLES Performing Organization Address City/[facility]/[place] [address] * (ABNORMAL) Differential, Automated (10/15/2018 3:34 PM EDT) Neutrophil % 69.5 % [facility] Neutrophil Absolute 6.68(H) 1.70 - 6.10 x10(3)/mc L [facility] Lymph % 17.5 % [facility] Lymphocytes Abs 1.7 0.9 - 3.2 x10(3)/ L [facility] Monocyte % 11.6 % [facility] Monocyte Abs 1.1(H) 0.3 - 0.9 x10(3)/mc L [facility] Eos % 1.0 % [facility] Eosinophils Abs 0.1 0.0 - 0.4 x10(3)/ L [facility] Basophil % 0.1 % [facility] Baso Absolute 0.0 0.0 - 0.1 x10(3)/mc L [facility] Immature Gran % 0.30 % [facility] Comment: Immature granulocytes(IG's)percentage and absolute count will include metamyelocytes, myelocytes, and promyelocytes. Blood smears from CBCs yielding IG's will be scanned manually for concordance. If this scan disagrees with the automated IG or if promyelocytes are noted, a manual differential will be performed. Immature Gran Absolute 0.03 0.00 - 0.04 x10(3)/mc L [facility] Blood specimen (specimen) 10/15/2018 3:34 PM EDT 10/15/2018 3:45 PM EDT Narrative Resulting Agency Comment Spec In Lab Dariela Tom MD HEMATOLOGY ORDERABLE S Performing Organization Address City/[facility]/ZIP Co de Phone Number [facility] [place] [address] * (ABNORMAL) Hemogram (10/15/2018 3:34 PM EDT) Pathologist [facility] White Blood Cell 9.6(H) 4.0 - 9.5 x10(3)/ L [facility] Red Blood Cell 3.33(L) 4.00 - 5.21 x10(6)/ L [facility] Hemoglobin 10.7(L) 11.7 - 15.5 gm/dL [facility] Hematocrit 31.4(L) 35.7 - 45.8 % [facility] Mean Cell Volume 94.3 82.6 - 94.4 fL [facility] Mean Cell Hemoglobin 32.1(H) 27.1 - 32.0 pg [facility] Mean Cell Hemoglobin Concentration 34.1 31.7 - 35.0 gm/dL [facility] Platelet 237 145 - 357 x10(3)/[facility] RDW Standard Deviation 50.2(H) 37.0 - 46.0 fL [facility] RDW coefficient of variation 14.6(H) 11.5 - 14.1 % [facility] Mean Platelet Volume 10.2 7.6 - 12.9 fL [facility] NRBC% auto 0.0 % [facility] NRBC Absolute 0.000 0.000 - 0.000 x10(3)/[facility] Blood specimen (specimen) 10/15/2018 3:34 PM EDT 10/15/2018 3:45 PM EDT Narrative Resulting Agency Comment Spec In Lab Dariela Tom MD HEMATOLOGY ORDERABLE S [facility] [place] [address] * (ABNORMAL) Basic Metabolic Panel (non-fasting) (10/15/2018 3:34 PM EDT) Pathologist [facility] Glucose 110 65 - 199 mg/dL [facility] Comment:Diabetes: >=200 mg/d L plus symptoms Blood Urea Nitrogen 20(H) 8 - 18 mg/dL [facility] Creatinine 2.99(H) 0.70 - 1.20 mg/dL [facility] Sodium 143 135 - 145 mmol/L [facility] Potassium 3.6 3.5 - 5.0 mmol/L [facility] Comment: Please note: ??Patients with WBC >100,000 may have falsely elevated Potassium levels. ??For accurate Potassium quantification in these patients send serum separator tube (gold top) for subsequent determinations. ??Contact the Clinical Chemistry Laboratory if there are any questions. Chloride 107 98 - 107 mmol/L [facility] Carbon Dioxide 22 22 - 31 mmol/L [facility] Anion Gap 14 5 - 15 mmol/L [facility] Calcium 8.0(L) 8.5 - 10.5 mg/dL [facility] Est Glomerular Filtration Rate 18(L) >=60 mL/min/1. 73 m?? [facility] Comment: The eGFR was calculated using the CKD-EPI equation. As with all creatinine based estimates of kidney function, eGFR values calculated with the CKD-EPI equation are not accurate in patients with acute kidney failure, extremes of body mass or the acutely ill. http://[employer]/[facility] eGFR 20(L) >=60 mL/min/1. 73 m?? [facility] Comment: The eGFR was calculated using the CKD-EPI equation. As with all creatinine based estimates of kidney function, eGFR values calculated with the CKD-EPI equation are not accurate in patients with acute kidney failure, extremes of body mass or the acutely ill. [email or web address] Blood specimen (specimen) 10/15/2018 3:34 PM EDT 10/15/2018 3:45 PM EDT Narrative Resulting Agency Comment Spec In Lab Nena Ace MD CHEMISTRY ORDERABLES [facility] [place] [address] * Urinalysis with reflex Culture (10/15/2018 3:27 PM EDT) Glucose, Urine Dipstick Negative Negative mg/dL [facility] Protein, Urine Dipstick Negative Negative mg/dL [facility] Bilirubin, Urine Dipstick Negative Negative mg/dL [facility] Comment: Clinical correlation required for positive Urine Bilirubin results as false positive may occur with some drugs and drug related products. If a false positive is suspected a serum total bilirubin should be considered if clinically indicated. Urobilinogen, Urine Dipstick Normal Normal mg/dL [facility] pH, Urn (dipstick) 5.0 5.0 - 8.0 [facility] Blood, Urine Dipstick Negative Negative mg/dL [facility] Ketone, Urine Dipstick Negative Negative mg/dL [facility] Nitrite, Urine Dipstick Negative Negative [facility] Leukocytes, Urine Dipstick Negative Negative [facility] Appearance, Urine Dipstick Clear Clear [facility] Specific [place] Urine Automated 1.013 1.002 - 1.030 [facility] Color, Urine Dipstick Yellow Yellow [facility] Reflex to Culture No [facility] Urine specimen obtained by clean catch procedure (specimen) 10/15/2018 3:27 PM EDT 10/15/2018 3:48 PM EDT Narrative Resulting Agency Comment Spec In Lab Nena Ace MD URINE ORDERABLES Performing Organization Address [facility]/ZIP Co de Phone Number [facility] [place] [address] documented in this encounter Visit Diagnoses Diagnosis [...] (Given - Provider: Sarah Pappas RN)1634 ([facility] Hold - Provider: Admin Adt - Reason: Transfer to a Procedural area)1800 (Automatically Held - Provider: Admin Adt)190 ([facility] Unhold - Provider: Admin Adt) 0026 (Given - Provider: Alisson Rivers RN)0531 (Given - Provider: Alisson Rivers RN) amitriptyline (ELAVIL) tablet 25 mg 25 mg, Oral, NIGHTLY, First dose on Mon10/15/18 at 2100, Until Discontinued, Routine 2149 (Given - Provider: Yaneli Gómez RN) 1634 ([facility] Hold - Provider: Admin Adt - Reason: Transfer to a Procedural area)190 ([facility] Unhold - Provider: Admin Adt)204 (Given - Provider: Alisson Rivers RN) cephALEXin (KEFLEX) capsule 250 mg 250 mg, Oral, 3 TIMES DAILY, First dose on Mon10/16/18 at 0900, Until Discontinued, Routine, Indication for (Active or Suspected): Bone/Joint 0912 (Given - Provider: Sarah Pappas RN)1404 (Given - Provider: Sarah Pappas RN)1634 ([facility] Hold - Provider: Admin Adt - Reason: Transfer to a Procedural area)190 ([facility] Unhold - Provider: Admin Adt)2047 (Given - Provider: Alisson Rivers RN) 0841 (Given - Provider: Eligio Purcell RN) ciprofloxacin (CIPRO) 400 mg in dextrose 5% 200 mL (COMPLETED) 400 mg, Intravenous, INTELLIGENCE SENIOR SERGEANT TO O.R., 1 dose, On Mon10/16/18 at 1345, Administer over 60 Minutes, Indication for (Active or Suspected): Prophylaxis, Restricted Antibiotic: Please indicate the most appropriate choice: Pre-approved Indication (State the indication in Comments field) 1634 ([facility] Hold - Provider: Admin Adt - Reason: Transfer to a Procedural area)1648 (Given - Provider: Mario Simpson)190 ([facility] Unhold - Provider: Admin Adt) FLUoxetine (PROzac) [...] - Reason: Order parameters not met)1634 ([facility] Hold - Provider: Admin Adt - Reason: Transfer to a Procedural area)1908 ([facility] Unhold - Provider: Admin Adt)2046 (Given - [...] - Provider: Yaneli Gómez RN) 1633 ([facility] Hold - Provider: Admin Adt - Reason: Transfer to a Procedural area)1908 ([facility] Unhold - Provider: Admin Adt)2046 (Given - Provider: Alisson Rivers RN) pantoprazole (PROTONIX) tablet 40 mg 40 mg, Oral, DAILY, First dose on Mon10/16/18 at 0900, Until Discontinued, DO NOT CRUSH OR OPEN 0912 (Given - Provider: Sarah Pappas RN)163 ([facility] Hold - Provider: Admin Adt - Reason: Transfer to a Procedural area)1908 ([facility] Unhold - Provider: Admin Adt) 08 (Given - Provider: Eligio Purcell RN) rifAMPin (RIFADIN) capsule 300 mg 300 mg, Oral, 2 TIMES DAILY, First dose on Mon10/15/18 at 2100, Until Discontinued, Routine, Indication for (Active or Suspected): Bone/Joint 2148 (Given - Provider: Yaneli Gómez RN) 0912 (Given - Provider: aSrah Pappas RN)163 ([facility] Hold - Provider: Admin Adt - Reason: Transfer to a Procedural area)1908 ([facility] Unhold - Provider: Admin Adt)2046 (Given - Provider: Alisson Rivers RN) 0842 (Given - Provider: Eligio Purcell, RADHA) sodium chloride 0.9 % (flush) flush 5 mL 5 mL, Intravenous, 2 TIMES DAILY, First dose on Mon10/15/18 at 2100, Until Discontinued, Routine 2149 (Given - Provider: Yaneli Gómez, RN) 0913 (Given - Provider: Sarah Pappas RN)1634 ([facility] Hold - Provider: Admin Adt - Reason: Transfer to a Procedural area)1909 ([facility] Unhold - Provider: Admin Adt)2050 (Given - Provider: Alisson Rivers RN) 0900 (Due - Provider: Admin Adt) tamsulosin (FLOMAX) ER capsule 0.4 mg 0.4 mg, Oral, DAILY, First dose on Mon10/15/18 at 1545, Until Discontinued, DO NOT CRUSH OR OPEN, Routine 1609 (Given - Provider: Sarah Pappas RN) 0912 (Given - Provider: Sarah Pappas RN)1634 ([facility] Hold - Provider: Admin Adt - Reason: Transfer to a Procedural area)190 ([facility] Unhold - Provider: Admin Adt) 0842 (Given - Provider: Eligio Purcell, RADHA) Continuous Medication Order 10/15/2018 10/16/2018 10/17/2018 lactated ringers infusion (CANCELED) 1,000 mL, at 100 mL/hr, Intravenous, CONTINUOUS, Starting on Mon10/15/18 at 1545, Until Mon10/16/18 at 1933 1609 (New Bag - Provider: Sarah Pappas RN) 0206 (New Bag - Provider: Yaneli Gómez, RADHA)1634 ([facility] Hold - Provider: Admin Adt - Reason: Transfer to a Procedural area)190 ([facility] Unhold - Provider: Admin Adt) PRN Medication [...] Mon10/17/18 at 1209, Anxiety, Routine 1634 ([facility] Hold - Provider: Admin Adt - Reason: Transfer to a Procedural area)1908 ([facility] Unhold - Provider: Admin Adt) docusate sodium (COLACE) capsule 100 mg 100 mg, Oral, 2 TIMES DAILY PRN, Starting on Mon10/15/18 at 1518, Until Mon10/17/18 at 1209, Constipation, Routine 1634 ([facility] Hold - Provider: Admin Adt - Reason: Transfer to a Procedural area)1908 ([facility] Unhold - Provider: Admin Adt) glucagon (human [...] of the active insulin., Routine 163 ([facility] Hold - Provider: Admin Adt - Reason: Transfer to a Procedural area)1908 ([facility] Unhold - Provider: Admin Adt) glucose (GLUTOSE) [...] tube = 37.5 grams., Routine 163 ([facility] Hold - Provider: Admin Adt - Reason: Transfer to a Procedural area)1908 ([facility] Unhold - Provider: Admin Adt) HYDROmorphone (DILAUDID) [...] (Given - Provider: Sarah Pappas RN)1634 ([facility] Hold - Provider: Admin Adt - Reason: Transfer to a Procedural area)1908 ([facility] Unhold - Provider: Admin Adt) iohexol (OMNIPAQUE) [...] Reason: Transfer to a Procedural area)190 ([facility] Unhold - Provider: Admin Adt) oxyCODONE (ROXICODONE) [...] Reason: Transfer to a Procedural area)190 ([facility] Unhold - Provider: Admin Adt) Linked Groups [...] first. documented in this encounter Care Teams Resident Care Manager Relationship Specialty Start Date End Date Gissell Davis APRN [address] [place] [address] PCP - General Family Medicine 08/21/18 11/12/21 documented as of this encounter
--- OUTSIDE RECORDS SUMMARY | 2023-10-06 02:03 | XMS_ITS | Encounter Summary ---
Author Organization [facility] [place] [address] Care Team Providers Care Warehouse Order Puller Name Role Phone Gissell Davis APRN Primary Care Provider [phone] Encounter Details Date Type Department Care Team (Late st Contact Info) Description 10/15/2018 [place] [id number] [place] [address] Social History Tobacco Use Types Packs/Day Years [...] from the transfer center regarding pt at [facility] with bilateral ureteral stones and RENAE. No fevers. She is on Keflex and Rifampin for chronic knee infection. [place] plan [place] [facility] [place]. Nena Ace MD documented in this encounter Plan of Treatment Not on file documented as of this encounter Visit Diagnoses Not on filedocumented in this encounter Care Teams Warehouse Order Puller Relationship Specialty Start Date End Date Gissell Davis APRN [address] [place] [address] PCP - General Family Medicine 08/21/18 11/12/21 documented as of this encounter
--- OUTSIDE RECORDS SUMMARY | 2023-10-06 02:03 | XMS_ITS | Encounter Summary ---
[place] [address] Care Team Providers Care Laboratory Assistant Name Role Phone Carla Lieberman MD Primary Care Provider [phone] Encounter Details Date Type Department Care Team (Late st Contact Info) Description 04/06/2010 8:30 AM EST Procedure visit [place] [address] Lynette Gregory, [place] Social History Tobacco Use [...] on filedocumented in this encounter Care Teams Laboratory Assistant Relationship Specialty Start Date End Date Carla Lieberman MD [address] [place] [address] PCP - General 01/12/10 08/19/18 documented as of this encounter
--- OUTSIDE RECORDS SUMMARY | 2023-10-06 02:03 | XMS_ITS | Encounter Summary ---
Author Organization [facility] [place] [address] Care Team Providers Care Retail Event And Sales Assistant Name Role Phone Carla Lieberman MD Primary Care Provider [phone] Encounter Details Date Type Department Care Team (Late st Contact Info) Description 07/08/2010 Orders [place] [address] Ash Pinto MD [facility] [place] [address] Nausea & vomiting (Primary Dx) Social History [...] vomiting documented in this encounter Care Teams Retail Event And Sales Assistant Relationship Specialty Start Date End Date Carla Lieberman MD [address] [place] [address] PCP - General 01/12/10 08/19/18 documented as of this encounter
--- OUTSIDE RECORDS SUMMARY | 2023-10-06 02:03 | XMS_ITS | Encounter Summary ---
Author Organization [facility] [place] [address] Care Team Providers Care Childcare Administrator Name Role Phone Carla Lieberman MD Primary Care Provider [phone] Encounter Details Date Type Department Care Team (Latest Contact Info) Description 02/15/2010 8:27 AM EST - 02/15/2010 11:59 PM EST Hospital Encounter Occupational [place] [address] Ash Pinto MD [facility] [place]STROENTER[place] [address] Discharge Disposition: Home Social History Tobacco Use [...] on filedocumented in this encounter Care Teams Childcare Administrator Relationship Specialty Start Date End Date Carla Lieberman MD [address] [place] [address] PCP - General 01/12/10 08/19/18 documented as of this encounter
--- OUTSIDE RECORDS SUMMARY | 2023-10-06 02:03 | XMS_ITS | Encounter Summary ---
Author Organization [facility] Address [facility] [place] [address] Care Team Providers Care Education Administrative Assistant Name Role Phone Carla Lieberman MD Primary Care Provider [phone] Encounter Details Date Type Department Care Team (Latest Contact Info) Description 07/27/2010 9:43 AM EDT - 07/27/2010 11:59 PM EDT Hospital Encounter XRay at [address] [place] [address] CLINIC, Ash Huerta MD [facility] [place] [address] Discharge Disposition: Home Social History Tobacco Use [...] mg documented in this encounter Care Teams Education Administrative Assistant Relationship Specialty Start Date End Date Carla Lieberman MD [address] [place] [address] PCP - General 01/12/10 08/19/18 documented as of this encounter
--- OUTSIDE RECORDS SUMMARY | 2023-10-06 02:03 | XMS_ITS | Encounter Summary ---
Author Organization [facility] [place] [address] Care Team Providers Care Fur Floor Worker Name Role Phone Carla Lieberman MD Primary Care Provider Encounter Details Date Type Department Care Team (Late st Contact Info) Description 08/09/2017 Ancillary Procedure [place] [phone] Gissell Davis, KENYATTA [address] [place] [address] Social History Tobacco Use Types Packs/Day Years [...] APRN IMG FILM LIBRARY ORD ERABLES DH [place], [place] documented in this encounter Visit Diagnoses Not on filedocumented in this encounter Care Teams Fur Floor Worker Relationship Specialty Start Date End Date Carla Lieberman MD [address] [place] [address] PCP - General 01/12/10 08/19/18 documented as of this encounter
--- OUTSIDE RECORDS SUMMARY | 2023-10-06 02:03 | XMS_ITS | Encounter Summary ---
[place] [address] Care Team Providers Care Beauty Culture Teacher Name Role Phone Carla Lieberman MD Primary Care Provider Encounter Details Date Type Department Care Team (Late st Contact Info) Description 08/11/2017 Ancillary Procedure [place] [phone] Gissell Davis, KENYATTA [address] [place] [address] Social History Tobacco Use Types Packs/Day Years [...] It's purpose is for storage only. Gissell Davsi APRN IMG FILM LIBRARY ORD ERABLES DH [place], [place] documented in this encounter Visit Diagnoses Not on filedocumented in this encounter Care Teams Beauty Culture Teacher Relationship Specialty Start Date End Date Carla Lieberman MD [address] [place] [address] PCP - General 01/12/10 08/19/18 documented as of this encounter
--- OUTSIDE RECORDS SUMMARY | 2023-10-06 02:03 | XMS_ITS | Encounter Summary ---
Author Organization [facility] [place] [address] Care Team Providers Care Hostage Negotiator Name Role Phone Carla Lieberman MD Primary Care Provider [phone] Reason for Visit * Reason Comments Emesis Encounter Details Date Type Department Care Team (Late st Contact Info) Description 07/08/2010 11:30 AM EDT Follow-[place] [phone] Ash Pinto MD [facility] [place] [address] Gastroparesis (Primary Dx) Discharge Disposition: Home Social [...] Primary documented in this encounter Care Teams Hostage Negotiator Relationship Specialty Start Date End Date Carla Lieberman MD [address] [place] [address] PCP - General 01/12/10 08/19/18 documented as of this encounter
--- OUTSIDE RECORDS SUMMARY | 2023-10-06 02:03 | XMS_ITS | Encounter Summary ---
Author Organization [facility] Address [facility] [place] [address] Care Team Providers Care Tool Die Maker Name Role Phone Carla Lieberman MD Primary Care Provider [phone] Encounter Details Date Type Department Care Team (Late st Contact Info) Description 03/24/2017 Ancillary Procedure [place] [phone] Gissell Davis, KENYATTA [address] [place] [address] Social History Tobacco Use Types Packs/Day Years [...] APRN IMG FILM LIBRARY ORD ERABLES DH [place], [place] documented in this encounter Visit Diagnoses Not on filedocumented in this encounter Care Teams Tool Die Maker Relationship Specialty Start Date End Date Carla Lieberman MD [address] [place] [address] PCP - General 01/12/10 08/19/18 documented as of this encounter
--- OUTSIDE RECORDS SUMMARY | 2023-10-06 02:03 | XMS_ITS | Encounter Summary ---
[place] [address] Care Team Providers Care Three Dimensional Art Instructor Name Role Phone Carla Libeerman MD Primary Care Provider [phone] Encounter Details Date Type Department Care Team (Late st Contact Info) Description 02/15/2010 9:00 AM EST Procedure visit [place] [address] Social History Tobacco Use Types Packs/Day Years Used Date Smoking Tobacco: Never Assessed Sex and Gender Information Value Date Recorded Sex Assigned at Not on file Gender Identity Not on file Sexual Orientation Not on file documented as of this encounter Plan of Treatment Not on file documented as of this encounter Visit Diagnoses Not on filedocumented in this encounter Care Teams Three Dimensional Art Instructor Relationship Specialty Start Date End Date Carla Lieberman MD [address] [place] [address] PCP - General 01/12/10 08/19/18 documented as of this encounter
--- OUTSIDE RECORDS SUMMARY | 2023-10-06 02:03 | XMS_ITS | Encounter Summary ---
Author Organization [facility] [place] [address] Care Team Providers Care Mixer Blender Name Role Phone Sarthaklinus Gissell J KENYATTA Primary Care Provider [phone] Encounter Details Date Type Department Care Team (Late st Contact Info) Description 10/15/2018 10:50 AM EDT Ancillary Procedure [place] [phone] Nena Ace MD [facility] [address] Social History Tobacco Use Types Packs/Day Years [...] CT Abdomen (10/15/2018 10:46 AM EDT) Narrative [facility] - 10/15/2018 10:46 AM EDT This exam is auto-finalizing. It's purpose is for storage only. Nena Ace MD G FILM LIBRARY ORD ERABLES Performing Organization Address City/State/[facility] Co de Phone Number DH RAD [place], [place] documented in this encounter Visit Diagnoses Not on filedocumented in this encounter Care Teams Mixer Blender Relationship Specialty Start Date End Date Gissell Davis APRN [address] [place] [address] PCP - General Family Medicine 08/21/18 11/12/21 documented as of this encounter
--- OUTSIDE RECORDS SUMMARY | 2023-10-06 02:03 | XMS_ITS | Encounter Summary ---
[place] [address] Care Team Providers Care Integration Analyst Name Role Phone Carla Lieberman MD Primary Care Provider [phone] Encounter Details Date Type Department Care Team (Late st Contact Info) Description 07/09/2018 Ancillary Procedure [place] [phone] Gissell Davis, KENYATTA [address] [place] [address] Social History Tobacco Use Types Packs/Day Years [...] APRN IMG FILM LIBRARY ORD ERABLES DH [place], [place] documented in this encounter Visit Diagnoses Not on filedocumented in this encounter Care Teams Integration Analyst Relationship Specialty Start Date End Date Carla Lieberman MD [address] [place] [address] PCP - General 01/12/10 08/19/18 documented as of this encounter
--- OUTSIDE RECORDS SUMMARY | 2023-10-06 02:03 | XMS_ITS | Encounter Summary ---
Author Organization [facility] Address [facility] [place] [address] Care Team Providers Care Disability Specialist Name Role Phone Carla Lieberman MD Primary Care Provider [phone] Encounter Details Date Type Department Care Team (Late st Contact Info) Description 04/03/2017 Ancillary Procedure [place] [phone] Gissell Davis, KENYATTA [address] [place] [address] Social History Tobacco Use Types Packs/Day Years [...] APRN IMG FILM LIBRARY ORD ERABLES DH [place], [place] documented in this encounter Visit Diagnoses Not on filedocumented in this encounter Care Teams Disability Specialist Relationship Specialty Start Date End Date Carla Lieberman MD [address] [place] [address] PCP - General 01/12/10 08/19/18 documented as of this encounter
--- OUTSIDE RECORDS SUMMARY | 2023-10-06 02:03 | XMS_ITS | Encounter Summary ---
[place] [address] Care Team Providers Care Community Specialist Name Role Phone Carla Lieberman MD Primary Care Provider [phone] Encounter Details Date Type Department Care Team (Late st Contact Info) Description 09/06/2010 Telephone [place] [phone] Ash Pinto MD [facility] [place] [address] Social History Tobacco Use Types Packs/Day Years [...] on filedocumented in this encounter Care Teams Community Specialist Relationship Specialty Start Date End Date Carla Lieberman MD [address] [place] [address] PCP - General 01/12/10 08/19/18 documented as of this encounter
--- OUTSIDE RECORDS SUMMARY | 2023-10-06 02:03 | XMS_ITS | Encounter Summary ---
[place] [address] Care Team Providers Care Scientific Advisor Name Role Phone Carla Lieberman MD Primary Care Provider [phone] Encounter Details Date Type Department Care Team (Late st Contact Info) Description 07/19/2017 Ancillary Procedure [place] [phone] Gissell Davis, KENYATTA [address] [place] [address] Social History Tobacco Use Types Packs/Day Years [...] APRN IMG FILM LIBRARY ORD ERABLES DH [place], [place] documented in this encounter Visit Diagnoses Not on filedocumented in this encounter Care Teams Scientific Advisor Relationship Specialty Start Date End Date Carla Lieberman MD [address] [place] [address] PCP - General 01/12/10 08/19/18 documented as of this encounter
--- OUTSIDE RECORDS SUMMARY | 2023-10-06 02:03 | XMS_ITS | Encounter Summary ---
Author Organization [facility] [place] [address] Care Team Providers Care Pumping Station Supervisor Name Role Phone Carla Lieberman MD Primary Care Provider [phone] Encounter Details Date Type Department Care Team (Late st Contact Info) Description 03/18/2010 8:00 AM EST Office [place] [address] Ash Pinto MD [facility] [place] [address] Discharge Disposition: Home Social History Tobacco Use [...] Gran % 0.10 0.00 - 0.66 % [facility] Comment: Immature granulocytes(IG's)percentage and absolute count will include metamyelocytes, myelocytes, and promyelocytes. Blood smears from CBCs yielding IG's will be scanned manually for concordance. If this scan disagrees with the automated IG or if promyelocytes are noted, a manual differential will be performed. Immature Gran Absolute 0.01 0.00 - 0.05 x10(3)/mcL [facility] Blood specimen (specimen) 03/18/2010 9:16 AM EST 03/18/2010 9:30 AM EST Ash Pinto MD HEMATOLOGY ORDERABLE S Performing Organization Address [facility] Phone Number [facility] * (ABNORMAL) IGA (03/18/2010 9:16 AM EST) IgA 490(H) 70 - 400 mg/dL [facility] Blood specimen (specimen) 03/18/2010 9:16 AM EST 03/18/2010 9:30 AM EST Ash Pinto MD CHEMISTRY ORDERABLES Performing Organization Address [facility] Phone Number [facility] * TISSUE TRANSGLUTAMINASE, IGA (03/18/2010 9:16 AM EST) TTG IgA Ab <4.0 <=3.9 u/ml [facility] Comment: Result Interpretation: Negative: ?<4 U/mL Weak Positive: ??4-10 U/mL Positive: ?>10 U/mL Blood specimen (specimen) 03/18/2010 9:16 AM EST 03/18/2010 11:57 AM EST Ash Pinto MD IMMUNOLOGY ORDERABLE S Performing Organization Address [facility] Phone Number [facility] * HEMOGLOBIN A1C (03/18/2010 9:16 AM EST) Hemoglobin A1c 5.6 4.3 - 6.1 % [facility] Estimated Average Glucose 114 mg/dL [facility] Comment: eAG equivalents for HbA1c percentages: HbA1c(%) [...] into estimated average glucose values. ??Diabetes Care 2008:31(8):3438-8822. Blood specimen (specimen) 03/18/2010 9:16 AM EST 03/18/2010 9:30 AM EST Ash Pinto MD CHEMISTRY ORDERABLES [facility] * SCL 70 AB-[place] (03/18/2010 9:16 AM EST) [facility] Scl-70 Ab <0.2 U [facility] Comment: -- REFERENCE VALUE -- <1.0 (Negative) > or =1.0 (Positive) Test Performed by: [place] [address] Pastry Wrapper: Princess Canales, Ph.D. Blood specimen (specimen) 03/18/2010 9:16 AM EST 03/18/2010 11:49 AM EST Ash Pinto MD LAB SEND OUT ORDERAB LES [facility] * ANTI-SMOOTH MUSCLE ANTIBODY (03/18/2010 9:16 AM EST) Sm Muscle Ab (JUNE) Negative Negative [facility] Comment: Test Performed by: [facility] Dpt of Lab Med and Pathology [address] [place] [address] Pastry Wrapper: Aaron Lechuga III, M.D. Blood specimen (specimen) 03/18/2010 9:16 AM EST 03/18/2010 11:48 AM EST Ash Pinto MD LAB SEND OUT ORDERAB LES Performing Organization Address [facility] Co de Phone Number [facility] * MITOCHONDRIAL ANTIBODIES, M2 (03/18/2010 9:16 AM EST) Mitochon Ab (JUNE) <0.1 <0.1 U [facility] Comment: Interpretation: Negative (<0.1) Test Performed by: [facility] Dpt of Lab Med and Pathology [address] [place] [address] Pastry Wrapper: Aaron Lechuga III, M.D. Blood specimen (specimen) 03/18/2010 9:16 AM EST 03/18/2010 11:48 AM EST Ash Pinto MD LAB SEND OUT ORDERAB LES Performing Organization Address City/[facility]/ZIP Co de Phone Number [facility] * EVERT (03/18/2010 9:16 AM EST) EVERT Neg Neg [facility] Blood specimen (specimen) 03/18/2010 9:16 AM EST 03/18/2010 11:57 AM EST Ash Pinto MD LAB SEND OUT ORDERAB LES [facility] * SEDIMENTATION RATE, AUTOMATED (03/18/2010 9:16 AM EST) Sedimentation Rate Automated 15 0 - 20 mm/hr [facility] Blood specimen (specimen) 03/18/2010 9:16 AM EST 03/18/2010 9:30 AM EST Ash Pinto MD HEMATOLOGY ORDERABLE S Performing Organization Address [facility] Co de Phone Number CERANTONIO MILLENNIUM * [...] MD HEMATOLOGY ORDERABLE S Performing Organization Address City/[facility]/ZIP Co de Phone Number [facility]ER[facility]ON[facility] CASTILLOENNIUM * CORTISOL (03/18/2010 9:16 AM EST) Cortisol 6.6 mcg/dL [facility] Comment: Reference ranges: ??AM (7-10am): ??6.2-19.4 mcg/dL ??PM (4-8pm): ??2.3-12.3 mcg/dL Blood specimen (specimen) 03/18/2010 9:16 AM EST 03/18/2010 9:30 AM EST Ash Pinto MD CHEMISTRY ORDERABLES Performing Organization Address [facility] de Phone Number [facility] * LIPASE (03/18/2010 9:16 AM EST) Lipase 21 0 - 60 unit/L [facility] Blood specimen (specimen) 03/18/2010 9:16 AM EST 03/18/2010 9:30 AM EST Ash Pinto MD CHEMISTRY ORDERABLES Performing Organization Address [facility] Phone Number [facility] * PHOSPHORUS (03/18/2010 9:16 AM EST) Phosphorus 3.1 2.5 - 4.5 mg/dL [facility] Blood specimen (specimen) 03/18/2010 9:16 AM EST 03/18/2010 9:30 AM EST Ash Pinto MD CHEMISTRY ORDERABLES Performing Organization Address [facility] de Phone Number [facility] * MAGNESIUM (03/18/2010 9:16 AM EST) Magnesium 0.88 0.69 - 1.07 mmol/L [facility] Blood specimen (specimen) 03/18/2010 9:16 AM EST 03/18/2010 9:30 AM EST Ash Pinto MD CHEMISTRY ORDERABLES Performing Organization Address [facility] de Phone Number JANNA VOGEL * GAMMA [...] Pinto MD CHEMISTRY ORDERABLES Performing Organization Address City/State/[facility] Phone Number [facility] documented in this encounter Visit Diagnoses Not on filedocumented in this encounter Care Teams Pumping Station Supervisor Relationship Specialty Start Date End Date Carla Lieberman MD [address] [place] [address] PCP - General 01/12/10 08/19/18 documented as of this encounter
--- OUTSIDE RECORDS SUMMARY | 2023-10-06 02:03 | XMS_ITS | Encounter Summary ---
[place] [address] Care Team Providers Care Irrigation Engineer Name Role Phone Carla Lieberman MD Primary Care Provider [phone] Encounter Details Date Type Department Care Team (Latest Contact Info) Description 02/15/2010 8:00 AM EST Procedure [place] [address] CLINIC, Carla Guo, ict support engineer Disposition: Home Social History Tobacco Use Types [...] on filedocumented in this encounter Care Teams Irrigation Engineer Relationship Specialty Start Date End Date Carla Lieberman MD [address] [place] [address] PCP - General 01/12/10 08/19/18 documented as of this encounter
--- OUTSIDE RECORDS SUMMARY | 2023-10-06 02:03 | XMS_ITS | Encounter Summary ---
[place] [address] Care Team Providers Care Rock Climbing Instructor Name Role Phone Carla Lieberman MD Primary Care Provider [phone] Encounter Details Date Type Department Care Team (Late st Contact Info) Description 10/19/2017 Ancillary Procedure [place] [phone] Gissell Davis, KENYATTA [address] [place] [address] Social History Tobacco Use Types Packs/Day Years [...] APRN IMG FILM LIBRARY ORD ERABLES DH [place], [place] documented in this encounter Visit Diagnoses Not on filedocumented in this encounter Care Teams Rock Climbing Instructor Relationship Specialty Start Date End Date Carla Lieberman MD [address] [place] [address] PCP - General 01/12/10 08/19/18 documented as of this encounter
--- OUTSIDE RECORDS SUMMARY | 2023-10-06 02:03 | XMS_ITS | Encounter Summary ---
Author Organization [facility] [place] [address] Care Team Providers Care Hardwood Flooring Specialist Name Role Phone Carla Lieberman MD Primary Care Provider [phone] Reason for Visit * Reason Onset Date Comments GI Problem 09/06/2010 dameon egd per mariam Encounter Details Date Type Department Care Team (Late st Contact Info) Description 09/06/2010 Telephone [place] [phone] Ash Pinto MD [facility] [address] [place] [address] GI Problem (dameon egd per mariam) Social [...] on filedocumented in this encounter Care Teams Hardwood Flooring Specialist Relationship Specialty Start Date End Date Carla Lieberman MD [address] [place] [address] PCP - General 01/12/10 08/19/18 documented as of this encounter
--- OUTSIDE RECORDS SUMMARY | 2023-10-06 02:03 | XMS_ITS | Encounter Summary ---
Author Organization [facility] Address [facility] [place] [address] Care Team Providers Care Traffic Director Name Role Phone Carla Lieberman MD Primary Care Provider Encounter Details Date Type Department Care Team (Late st Contact Info) Description 03/19/2018 Ancillary Procedure [place] [phone] Gissell Davis, KENY[place] [address] [place] [address] Social History Tobacco Use Types Packs/Day Years [...] APRN IMG FILM LIBRARY ORD ERABLES DH [place], [place] documented in this encounter Visit Diagnoses Not on filedocumented in this encounter Care Teams Traffic Director Relationship Specialty Start Date End Date Carla Lieberman MD [address] [place] [address] PCP - General 01/12/10 08/19/18 documented as of this encounter
--- OUTSIDE RECORDS SUMMARY | 2023-10-06 02:03 | XMS_ITS | Encounter Summary ---
Author Organization [facility] [place] [address] Care Team Providers Care Traffic Rate Analyst Name Role Phone Carla Lieberman MD Primary Care Provider [phone] Encounter Details Date Type Department Care Team (Late st Contact Info) Description 01/03/2018 Ancillary Procedure [place] [phone] Gissell Davis, KENY[place] [address] [place] [address] Social History Tobacco Use Types Packs/Day Years [...] APRN IMG FILM LIBRARY ORD ERABLES DH [place], [place] documented in this encounter Visit Diagnoses Not on filedocumented in this encounter Care Teams Traffic Rate Analyst Relationship Specialty Start Date End Date Carla Lieberman MD [address] [place] [address] PCP - General 01/12/10 08/19/18 documented as of this encounter
--- OUTSIDE RECORDS SUMMARY | 2023-10-06 02:03 | XMS_ITS | Encounter Summary ---
[place] [address] Care Team Providers Care Supervisor Pyrotechnic Loading Name Role Phone Calra Lieberman MD Primary Care Provider [phone] Encounter Details Date Type Department Care Team (Late st Contact Info) Description 12/22/2017 Ancillary Procedure [place] [phone] Gissell Davis, KENY[place] [address] [place] [address] Social History Tobacco Use Types Packs/Day Years [...] APRN IMG FILM LIBRARY ORD ERABLES DH [place], [place] documented in this encounter Visit Diagnoses Not on filedocumented in this encounter Care Teams Supervisor Pyrotechnic Loading Relationship Specialty Start Date End Date Crala Lieberman MD [address] [place] [address] PCP - General 01/12/10 08/19/18 documented as of this encounter
--- OUTSIDE RECORDS SUMMARY | 2023-10-06 02:03 | XMS_ITS | Encounter Summary ---
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 Language: Estonian Race: White Ethnicity: Not nor Admit date: [...] joint infection and revision who presented to [facility] with flank pain andfound to have bilateral obstructive nephrolithiasis and acute kidney injury. ?? Ms. Chapman states that she developed flank pain about 2 days ago that radiated to her groin. She denied any fevers or chills. She has no history of nephrolithiasis. She denies any irritative voiding/LUTS or hematuria. CT imaging at [facility] showed bilateral ureteral stones. She was afebrile and hemodynamically stable upon admission. Her WBC was 11 and her creatinine was 3.64. UA was negative for nitrites, positive for trace leukocyte esterase and 5-10 WBC with many squams. This did not reflex for culture. Given her RENAE and bilateral stone burden, she was transferred to [facility] for further urologic care. ?? Upon arrival, Ms. Chapman is hemodynamically stable and afebrile. She states that her pain improved after fentanyl. She is unable to take NSAIDs given her fundoplication. She is currently comfortable,but states that the pain at its worst is unbearable. Hospital Course: Patient was admitted to [facility] from [facility] and underwent the above [...] to urinate please call our office at [phone] before 5PM or [phone] after hours. Kidney Stone Patients: Try and [...] side pain, you should call our office [phone] before 5PM or [phone] after hours. Call Doctor for: Please call if you have copious blood in your urine, severe back or side pain, pain not controlled by pain medications, persistent nausea and vomiting, or for any fevers greater drvt571.3 F. The number for questions is [phone] before 5 PM weekdays and [phone] after 5 PM and weekends. Pain Medication: No driving for 8 hours after any dose of opioid pain medication if one was prescribed for you. You may use ibuprofen (motrin, advil) in addition to this medication if your pain is not totally controlled by the opioid. Follow-up: Please call [phone] (clinic number for appointments) to confirm date [...] Reggie Hull MD Infectious Disease at [facility] Arrive at: [employer] [phone] Follow-Up: Future Appointments Date Time Provider Department Center 12/04/2018 12:30 PM Reggie Hull MD [facility] [address] [place] [address] Primary Care Provider: Gissell Davis, [employer] [phone] Follow-up Recommendations for Providers: Please see discharge [...] was managed by the Urology Team at [facility]. If you have any questions or concerns, please feel free to contact us. Provider Contact Information: Urology Clinic: [facility] (after business hours): documented in this [...] to urinate please call our office at [phone] before 5PM or [phone] after hours. Kidney Stone Patients: Try and [...] side pain, you should call our office [phone] before 5PM or [phone] after hours. Call Doctor for: Please call if you have copious blood in your urine, severe back or side pain, pain not controlled by pain medications, persistent nausea and vomiting, or for any fevers greater zmgk888.3 F. The number for questions is [phone] before 5 PM weekdays and [phone] after 5 PM and weekends. Pain Medication: No driving for 8 hours after any dose of opioid pain medication if one was prescribed for you. You may use ibuprofen (motrin, advil) in addition to this medication if your pain is not totally controlled by the opioid. Follow-up: Please call [phone] (clinic number for appointments) to confirm date [...] Fay arrived to [facility] via stretcher from [facility]. No report received from facility - follow [...] joint infection and revision who presented to [facility] with flank pain andfound to have bilateral obstructive nephrolithiasis and acute kidney injury. Ms. Chapman states that she developed flank pain about 2 days ago that radiated to her groin. She denied any fevers or chills. She has no history of nephrolithiasis. She denies any irritative voiding/LUTS or hematuria. CT imaging at [facility] showed bilateral ureteral stones. She was afebrile and hemodynamically stable upon admission. Her WBC was 11 and her creatinine was 3.64. UA was negative for nitrites, positive for trace leuk esterase and 5-10 WBC with many squams. This did not reflex for culture. Given her RENAE and bilateral stone burden, she was transferred to [facility] for further urologic care. Upon arrival, [...] 22 BUN 20* CREATININE 2.99* Microbiology: UA [facility] 10/15: negative for nitrites, positive for trace leuk esterase and 5-10 WBC with many squams. No reflex. 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 Ace. Dariela Tom Urology, PGY-2 Consult pager #[phone] Associated attestation - Nena Ace MD - [...] MD - 10/16/2018 5:32 PM EDT [facility] Operative Note Patient Name: Barbara Chapman : [id number] MR#: [id number] ?? Case Date: 10/16/2018 ?? Surgeon: Surgeon(s) [...] Operative Note Patient Name: Barbara Chapman : [id number] MR#: [id number] Case Date: 10/16/2018 Surgeon: Surgeon(s) and Role: [...] Consult Note - Ángela Cabral, [facility] - 10/16/2018 8:25 AM EDT Clinical Pharmacist Note - Renal Dose Adjustment for Antimicrobials Barbara Chapman (A# [id number]) is being treated with the following antimicrobial [...] joint infection and revision who presented to [facility] with flank pain and found to have [...] Primary care provider on file: Gissell Davis, [employer] [phone] Advance Directive on file and Code Status: Full Code Patient???s Functional Status: Independent Living Situation: [address] [place] [address] Supports: Assessment: Patient with no apparent RNCM/SW needs at this time. No housing, transportation, insurance, resources concerns identified at this time. Supports in place to achieve a safe post-hospital transition. No identified barriers to accessing necessary care and/or follow-up after discharge. Plan: Patient to d/c home via personal car when medically ready. fleet operations manager/Casino Shift Manager will continue to follow patient???s progress and remain available if situation changes for coordination of care, psychosocial support and/or discharge planning. Lima Morales, RN Pager [phone] * Plan of Care - Yaneli Gómez [...] 10/16/2018 5:27 PM EDT Cystourethroscopy, Ureter Catheter ([id number]) 10/16/2018 4:34 PM EDT Bilateral nephrolithiasis Cystoscopy, Insert Ureteral Stent ([id number]) 10/16/2018 4:34 PM EDT Bilateral nephrolithiasis POCT [...] EDT) Glucose 110 65 - 199 mg/dL [facility] Comment:Diabetes: >=200 mg/d L plus symptoms Blood Urea Nitrogen 16 8 - 18 mg/dL [facility] Creatinine 1.95(H) 0.70 - 1.20 mg/dL [facility] Comment:result rechecked-ssd Sodium 141 135 - 145 mmol/L [facility] Potassium 3.3(L) 3.5 - 5.0 mmol/L [facility] Comment: Please note: ??Patients with WBC >100,000 may have falsely elevated Potassium levels. ??For accurate Potassium quantification in these patients send serum separator tube (gold top) for subsequent determinations. ??Contact the Clinical Chemistry Laboratory if there are any questions. Chloride 104 98 - 107 mmol/L [facility] Carbon Dioxide 26 22 - 31 mmol/L [facility] Anion Gap 11 5 - 15 mmol/L [facility] Calcium 8.7 8.5 - 10.5 mg/dL [facility] Est Glomerular Filtration Rate 29(L) >=60 mL/min/1. 73 m?? [facility] Comment: The eGFR was calculated using the CKD-EPI equation. As with all creatinine based estimates of kidney function, eGFR values calculated with the CKD-EPI equation are not accurate in patients with acute kidney failure, extremes of body mass or the acutely ill. http://[employer]/[facility] eGFR 34(L) >=60 mL/min/1. 73 m?? [facility] Comment: The eGFR was calculated using the CKD-EPI equation. As with all creatinine based estimates of kidney function, eGFR values calculated with the CKD-EPI equation are not accurate in patients with acute kidney failure, extremes of body mass or the acutely ill. http://[employer]/[facility] Blood specimen (specimen) 10/17/2018 5:08 AM EDT 10/17/2018 5:22 AM EDT Narrative Resulting Agency Comment Spec In Lab Nena Ace MD CHEMISTRY ORDERABLES Performing Organization Address [facility] Co de Phone Number [facility] [place] [address] * POCT Glucose (10/17/2018 4:38 AM EDT) Glucose, POC 102 65 - 199 mg/dL [facility] Comment: Supplemental ranges: <140 mg/dL before meals <180 mg/dL all other times of the day Blood specimen (specimen) 10/17/2018 4:38 AM EDT 10/17/2018 4:38 AM EDT Nena Ace MD POINT OF CARE TEST O RDERABLES Performing Organization Address [facility]/ZIP Co de Phone Number [facility] [place] [address] * POCT Glucose (10/16/2018 11:48 PM EDT) Glucose, POC 133 65 - 199 mg/dL [facility] Comment: Supplemental ranges: <140 mg/dL before meals <180 mg/dL all other times of the day Blood specimen (specimen) 10/16/2018 11:48 PM EDT 10/16/2018 11:48 PM EDT Nena Ace MD POINT OF CARE TEST O RDERAANN Performing Organization Address [facility] Co de Phone Number [facility] [place] [address] * POCT Glucose (10/16/2018 8:06 PM EDT) Glucose, POC 173 65 - 199 mg/dL [facility] Comment: Supplemental ranges: <140 mg/dL before meals <180 mg/dL all other times of the day Blood specimen (specimen) 10/16/2018 8:06 PM EDT 10/16/2018 8:06 PM EDT Nena Ace MD POINT OF CARE TEST O CAITERAANN Performing Organization Address [facility] Co de Phone Number [facility] [place] [address] * POCT Glucose (10/16/2018 5:52 PM EDT) Glucose, POC 149 65 - 199 mg/dL [facility] Comment: Supplemental ranges: <140 mg/dL before meals <180 mg/dL all other times of the day Blood specimen (specimen) 10/16/2018 5:52 PM EDT 10/16/2018 5:52 PM EDT Nena Ace MD POINT OF CARE TEST O CAITERAANN Performing Organization Address [facility] Co de Phone Number [facility] [place] [address] * POCT Glucose (10/16/2018 4:18 PM EDT) Glucose, POC 114 65 - 199 mg/dL [facility] Comment: Supplemental ranges: <140 mg/dL before meals <180 mg/dL all other times of the day Blood specimen (specimen) 10/16/2018 4:18 PM EDT 10/16/2018 4:18 PM EDT Nena Ace MD POINT OF CARE TEST O RDERABLES Performing Organization Address [facility] Co de Phone Number [facility] [place] [address] * POCT Glucose (10/16/2018 11:43 AM EDT) Glucose, POC 123 65 - 199 mg/dL [facility] Comment: Supplemental ranges: <140 mg/dL before meals <180 mg/dL all other times of the day Blood specimen (specimen) 10/16/2018 11:43 AM EDT 10/16/2018 11:43 AM EDT Nena Ace MD POINT OF CARE TEST O RDERAANN Performing Organization Address [facility] de Phone Number [facility] [place] [address] * POCT Glucose (10/16/2018 8:07 AM EDT) Glucose, POC 134 65 - 199 mg/dL [facility] Comment: Supplemental ranges: <140 mg/dL before meals <180 mg/dL all other times of the day Blood specimen (specimen) 10/16/2018 8:07 AM EDT 10/16/2018 8:07 AM EDT Nena Ace MD POINT OF CARE TEST O RDERAANN Performing Organization Address [facility] Co de Phone Number [facility] [place] [address] * POCT Glucose (10/16/2018 3:21 AM EDT) Glucose, POC 104 65 - 199 mg/dL [facility] Comment: Supplemental ranges: <140 mg/dL before meals <180 mg/dL all other times of the day Blood specimen (specimen) 10/16/2018 3:21 AM EDT 10/16/2018 3:21 AM EDT Nena Ace MD POINT OF CARE TEST O RDERABLES Performing Organization Address [facility] Co de Phone Number [facility] [place] [address] * POCT Glucose (10/15/2018 11:33 PM EDT) Glucose, POC 155 65 - 199 mg/dL [facility] Comment: Supplemental ranges: <140 mg/dL before meals <180 mg/dL all other times of the day Blood specimen (specimen) 10/15/2018 11:33 PM EDT 10/15/2018 11:33 PM EDT Nena Ace MD POINT OF CARE TEST O RDERABLES Performing Organization Address [facility] Co de Phone Number [facility] [place] [address] * POCT Glucose (10/15/2018 7:16 PM EDT) Glucose, POC 118 65 - 199 mg/dL [facility] Comment: Supplemental ranges: <140 mg/dL before meals <180 mg/dL all other times of the day Blood specimen (specimen) 10/15/2018 7:16 PM EDT 10/15/2018 7:16 PM EDT Nena Ace MD POINT OF CARE TEST O RDERABLES Performing Organization Address [facility] Co de Phone Number [facility] [place] [address] * POCT Glucose (10/15/2018 4:06 PM EDT) Glucose, POC 104 65 - 199 mg/dL [facility] Comment: Supplemental ranges: <140 mg/dL before meals <180 mg/dL all other times of the day Blood specimen (specimen) 10/15/2018 4:06 PM EDT 10/15/2018 4:06 PM EDT Nena Ace MD POINT OF CARE [place] [address] * (ABNORMAL) Differential, Automated (10/15/2018 3:34 PM EDT) Neutrophil % 69.5 % [facility] Neutrophil Absolute 6.68(H) 1.70 - 6.10 x10(3)/mc L [facility] Lymph % 17.5 % [facility] Lymphocytes Abs 1.7 0.9 - 3.2 x10(3)/ L [facility] Monocyte % 11.6 % [facility] Monocyte Abs 1.1(H) 0.3 - 0.9 x10(3)/ L [facility] Eos % 1.0 % [facility] Eosinophils Abs 0.1 0.0 - 0.4 x10(3)/[facility] Basophil % 0.1 % [facility] Baso Absolute 0.0 0.0 - 0.1 x10(3)/ L [facility] Immature Gran % 0.30 % [facility] Comment: Immature granulocytes(IG's)percentage and absolute count will include metamyelocytes, myelocytes, and promyelocytes. Blood smears from CBCs yielding IG's will be scanned manually for concordance. If this scan disagrees with the automated IG or if promyelocytes are noted, a manual differential will be performed. Immature Gran Absolute 0.03 0.00 - 0.04 x10(3)/ L [facility] Blood specimen (specimen) 10/15/2018 3:34 PM EDT 10/15/2018 3:45 PM EDT Narrative Resulting Agency Comment Spec In Lab Dariela Tom MD HEMATOLOGY ORDERABLE S Performing Organization Address City/[facility]/ZIP Co de Phone Number [facility] [place] [address] * (ABNORMAL) Hemogram (10/15/2018 3:34 PM EDT) [facility] White Blood Cell 9.6(H) 4.0 - 9.5 x10(3)/[facility] Red Blood Cell 3.33(L) 4.00 - 5.21 x10(6)/[facility] Hemoglobin 10.7(L) 11.7 - 15.5 gm/dL [facility] Hematocrit 31.4(L) 35.7 - 45.8 % [facility] Mean Cell Volume 94.3 82.6 - 94.4 fL [facility] Mean Cell Hemoglobin 32.1(H) 27.1 - 32.0 pg [facility] Mean Cell Hemoglobin Concentration 34.1 31.7 - 35.0 gm/dL [facility] Platelet 237 145 - 357 x10(3)/[facility] RDW Standard Deviation 50.2(H) 37.0 - 46.0 [facility] RDW coefficient of variation 14.6(H) 11.5 - 14.1 % [facility] Mean Platelet Volume 10.2 7.6 - 12.9 fL [facility] NRBC% auto 0.0 % [facility] NRBC Absolute 0.000 0.000 - 0.000 x10(3)/[facility] Blood specimen (specimen) 10/15/2018 3:34 PM EDT 10/15/2018 3:45 PM EDT Narrative Resulting Agency Comment Spec In Lab Dariela Tom MD HEMATOLOGY ORDERABLE S [facility] [place] [address] * (ABNORMAL) Basic Metabolic Panel (non-fasting) (10/15/2018 3:34 PM EDT) Glucose 110 65 - 199 mg/dL [facility] Comment:Diabetes: >=200 mg/d L plus symptoms Blood Urea Nitrogen 20(H) 8 - 18 mg/dL [facility] Creatinine 2.99(H) 0.70 - 1.20 mg/dL [facility] Sodium 143 135 - 145 mmol/L [facility] Potassium 3.6 3.5 - 5.0 mmol/L [facility] Comment: Please note: ??Patients with WBC >100,000 may have falsely elevated Potassium levels. ??For accurate Potassium quantification in these patients send serum separator tube (gold top) for subsequent determinations. ??Contact the Clinical Chemistry Laboratory if there are any questions. Chloride 107 98 - 107 mmol/L [facility] Carbon Dioxide 22 22 - 31 mmol/L [facility] Anion Gap 14 5 - 15 mmol/L [facility] Calcium 8.0(L) 8.5 - 10.5 mg/dL [facility] Est Glomerular Filtration Rate 18(L) >=60 mL/min/1. 73 m?? [facility] Comment: The eGFR was calculated using the CKD-EPI equation. As with all creatinine based estimates of kidney function, eGFR values calculated with the CKD-EPI equation are not accurate in patients with acute kidney failure, extremes of body mass or the acutely ill. http://[employer]/[facility] eGFR 20(L) >=60 mL/min/1. 73 m?? [facility] Comment: The eGFR was calculated using the CKD-EPI equation. As with all creatinine based estimates of kidney function, eGFR values calculated with the CKD-EPI equation are not accurate in patients with acute kidney failure, extremes of body mass or the acutely ill. http://[employer]/[facility] Blood specimen (specimen) 10/15/2018 3:34 PM EDT 10/15/2018 3:45 PM EDT Narrative Resulting Agency Comment Spec In Lab Nena Ace MD CHEMISTRY ORDERABLES [facility] [place] [address] * Urinalysis with reflex Culture (10/15/2018 3:27 PM EDT) Glucose, Urine Dipstick Negative Negative mg/dL [facility] Protein, Urine Dipstick Negative Negative mg/dL [facility] Bilirubin, Urine Dipstick Negative Negative mg/dL [facility] Comment: Clinical correlation required for positive Urine Bilirubin results as false positive may occur with some drugs and drug related products. If a false positive is suspected a serum total bilirubin should be considered if clinically indicated. Urobilinogen, Urine Dipstick Normal Normal mg/dL [facility] pH, Urn (dipstick) 5.0 5.0 - 8.0 [facility] Blood, Urine Dipstick Negative Negative mg/dL [facility] Ketone, Urine Dipstick Negative Negative mg/dL [facility] Nitrite, Urine Dipstick Negative Negative [facility] Leukocytes, Urine Dipstick Negative Negative [facility] Appearance, Urine Dipstick Clear Clear [facility] Specific [place] Urine Automated 1.013 1.002 - 1.030 [facility] Color, Urine Dipstick Yellow Yellow [facility] Reflex to Culture No [facility] Urine specimen obtained by clean catch procedure (specimen) 10/15/2018 3:27 PM EDT 10/15/2018 3:48 PM EDT Narrative Resulting Agency Comment Spec In Lab Nena Ace MD URINE ORDERABLES Performing Organization Address [facility] Co de Phone Number [facility] [place] [address] documented in this encounter Visit Diagnoses Not [...] RN)1104 (Given - Provider: Sarah Pappas RN)1634 ([facility] Hold - Provider: Admin Adt - Reason: Transfer to a Procedural area)1800 (Automatically Held - Provider: Admin Adt)190 ([facility] Unhold - Provider: Admin Adt) 0026 (Given - Provider: Alisson Rivers RN)0531 (Given - Provider: Alisson Rivers RN) amitriptyline (ELAVIL) tablet 25 mg 25 mg, Oral, NIGHTLY, First dose on Mon10/15/18 at 2100, Until Discontinued, Routine 2148 (Given - Provider: Yaneli Gómez RN) 1634 ([facility] Hold - Provider: Admin Adt - Reason: Transfer to a Procedural area)190 ([facility] Unhold - Provider: Admin Adt)2046 (Given - Provider: Alisson Rivers RN) cephALEXin (KEFLEX) capsule 250 mg 250 mg, Oral, 3 TIMES DAILY, First dose on Mon10/16/18 at 0900, Until Discontinued, Routine, Indication for (Active or Suspected): Bone/Joint 0912 (Given - Provider: Sarah Pappas RN)1404 (Given - Provider: Sarah Pappas RN)1634 ([facility] HOSPITAL Hold - Provider: Admin Adt - Reason: Transfer to a Procedural area)190 ([facility] Unhold - Provider: Admin Adt)2046 (Given - Provider: Alisson Rivers RN) 0841 (Given - Provider: Eligio Purcell RN) ciprofloxacin (CIPRO) 400 mg in dextrose 5% 200 mL (COMPLETED) 400 mg, Intravenous, SNOW REMOVAL SUPERVISOR TO O.R., 1 dose, On Mon10/16/18 at 1345, Administer over 60 Minutes, Indication for (Active or Suspected): Prophylaxis, Restricted Antibiotic: Please indicate the most appropriate choice: Pre-approved Indication (State the indication in Comments field) 1634 ([facility] Hold - Provider: Admin Adt - Reason: Transfer to a Procedural area)1648 (Given - Provider: Mario Simpson)190 ([facility] Unhold - Provider: Admin Adt) FLUoxetine (PROzac) [...] RN - Reason: Order parameters not met)163 ([facility] Hold - Provider: Admin Adt - Reason: Transfer to a Procedural area)1908 ([facility] Unhold - Provider: Admin Adt)2046 (Given - [...] (Given - Provider: Yaneli Gómez RN) 1633 ([facility] Hold - Provider: Admin Adt - Reason: Transfer to a Procedural area)1908 ([facility] Unhold - Provider: Admin Adt)2046 (Given - Provider: Alisson Rivers RN) pantoprazole (PROTONIX) tablet 40 mg 40 mg, Oral, DAILY, First dose on Mon10/16/18 at 0900, Until Discontinued, DO NOT CRUSH OR OPEN 0912 (Given - Provider: Sarah Pappas RN)163 ([facility] Hold - Provider: Admin Adt - Reason: Transfer to a Procedural area)1908 ([facility] Unhold - Provider: Admin Adt) 0842 (Given - Provider: Eligio Purcell, RADHA) rifAMPin (RIFADIN) capsule 300 mg 300 mg, Oral, 2 TIMES DAILY, First dose on Mon10/15/18 at 2100, Until Discontinued, Routine, Indication for (Active or Suspected): Bone/Joint 2148 (Given - Provider: Yaneli Gómez RN) 0912 (Given - Provider: Sarah Pappas RN)163 ([facility] Hold - Provider: Admin Adt - Reason: Transfer to a Procedural area)1908 ([facility] Unhold - Provider: Admin Adt)2046 (Given - Provider: Alisson Rivers, RN) 0842 (Given - Provider: Eligio Purcell, RN) sodium chloride 0.9 % (flush) flush 5 mL 5 mL, Intravenous, 2 TIMES DAILY, First dose on Mon10/15/18 at 2100, Until Discontinued, Routine 2149 (Given - Provider: Yaneli Gómez, RN) 0913 (Given - Provider: Sarah Pappas RN)1634 ([facility] Hold - Provider: Admin Adt - Reason: Transfer to a Procedural area)190 ([facility] Unhold - Provider: Admin Adt)2049 (Given - Provider: Alisson Rivers, RN) 0900 (Due - Provider: Admin Adt) tamsulosin (FLOMAX) ER capsule 0.4 mg 0.4 mg, Oral, DAILY, First dose on Mon10/15/18 at 1545, Until Discontinued, DO NOT CRUSH OR OPEN, Routine 1609 (Given - Provider: Sarah Pappas RN) 0912 (Given - Provider: Sarah Pappas RN)1634 ([facility] Hold - Provider: Admin Adt - Reason: Transfer to a Procedural area)190 ([facility] Unhold - Provider: Admin Adt) 0842 (Given - Provider: Eligio Purcell, RADHA) Continuous Medication Order 10/15/2018 10/16/2018 10/17/2018 lactated ringers infusion (CANCELED) 1,000 mL, at 100 mL/hr, Intravenous, CONTINUOUS, Starting on Mon10/15/18 at 1545, Until Mon10/16/18 at 1933 1609 (New Bag - Provider: Sarah Pappas RN) 0206 (New Bag - Provider: Yaneli Gómez, RADHA)1634 ([facility] Hold - Provider: Admin Adt - Reason: Transfer to a Procedural area)190 ([facility] Unhold - Provider: Admin Adt) PRN Medication [...] Until Mon10/17/18 at 1209, Anxiety, Routine 1634 ([facility] Hold - Provider: Admin Adt - Reason: Transfer to a Procedural area)1908 ([facility] Unhold - Provider: Admin Adt) docusate sodium (COLACE) capsule 100 mg 100 mg, Oral, 2 TIMES DAILY PRN, Starting on Mon10/15/18 at 1518, Until Mon10/17/18 at 1209, Constipation, Routine 1634 ([facility] Hold - Provider: Admin Adt - Reason: Transfer to a Procedural area)1908 ([facility] Unhold - Provider: Admin Adt) glucagon (human [...] duration of the active insulin., Routine 163 ([facility] Hold - Provider: Admin Adt - Reason: Transfer to a Procedural area)1908 ([facility] Unhold - Provider: Admin Adt) glucose (GLUTOSE) [...] of tube = 37.5 grams., Routine 163 ([facility] Hold - Provider: Admin Adt - Reason: Transfer to a Procedural area)1908 ([facility] Unhold - Provider: Admin Adt) HYDROmorphone (DILAUDID) [...] RN)1603 (Given - Provider: Sarah Pappas RN)163 ([facility] Hold - Provider: Admin Adt - Reason: Transfer to a Procedural area)1908 ([facility] Unhold - Provider: Admin Adt) iohexol (OMNIPAQUE) [...] Alternative - Provider: Sarah Pappas, RADHA) 1634 ([facility] Hold - Provider: Admin Adt - Reason: Transfer to a Procedural area)190 ([facility] Unhold - Provider: Admin Adt) oxyCODONE (ROXICODONE) [...] >7/10, Routine 025 (Given - Provider: Yaneli Gómez, RADHA) sodium chloride 0.9 % (flush) flush 5-20 mL 5-20 mL, Intravenous, EVERY 1 MIN PRN, Starting on Mon10/15/18 at 1518, Until Mon10/17/18 at 1209, flush, Flush pertains to all indwelling lines. Flush per protocol found in the job aid using the link provided on this medication record., Routine 163 ([facility] Hold - Provider: Admin Adt - Reason: Transfer to a Procedural area)190 ([facility] Unhold - Provider: Admin Adt) Linked Groups [...] first. documented in this encounter Care Teams Hoeing Row Boss Relationship Specialty Start Date End Date Gissell Davis, KENYATTA [address] [place] [address] [address] [place] [address] PCP - General Family Medicine 08/21/18 11/12/21 documented as of this encounter
--- OUTSIDE RECORDS SUMMARY | 2023-10-06 02:03 | XMS_ITS | Encounter Summary ---
Author Organization [facility] [place] [address] Care Team Providers Care Chain Dyer Name Role Phone Carla Lieberman MD Primary Care Provider [phone] Encounter Details Date Type Department Care Team (Late st Contact Info) Description 01/13/2010 2:30 PM EST [place] [address] Kassy Ortiz APRN [facility] [place] [address] Social History Tobacco Use Types Packs/Day Years Used Date Smoking Tobacco: Never Assessed Sex and Gender Information Value Date Recorded Sex Assigned at Not on file Gender Identity Not on file Sexual Orientation Not on file documented as of this encounter Plan of Treatment Not on file documented as of this encounter Visit Diagnoses Not on filedocumented in this encounter Care Teams Chain Dyer Relationship Specialty Start Date End Date Carla Lieberman MD [address] [place] [address] PCP - General 01/12/10 08/19/18 documented as of this encounter
--- OUTSIDE RECORDS SUMMARY | 2023-10-06 02:03 | XMS_ITS | Encounter Summary ---
Author Organization [facility] [place] [address] Care Team Providers Care Creative Recruiter Name Role Phone Gissell Davis APRN Primary Care Provider Reason for Visit * Reason Comments Referral * Consultation (Routine) - Specialty Diagnoses / Procedures Referred By Contac t Referred To Contact Infectious Diseases Diagnoses h/o knee infx, suppressive abx consult Procedures consult Raheel Gongora MD [address] [place] [address] [facility] Infectious Dis [address] [place] [address] Referral ID Status Reason Start Date Expiration Date V isits Requested Visits Authorized [id number] 06/28/2018 06/28/2019 1 1 Encounter Details Date Type Department Care Team (Late st Contact Info) Description 08/21/2018 2:30 PM EDT Office [place] [address] [place] [address] Infection of prosthetic joint, initial encounter Social [...] aspiration revealed concern for infection (I called [facility] and no report of culture performed) and [...] Illegal: denies Disabled, 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 Patient reports a left knee aspiration a couple weeks ago, but I don't currently have results or cultures on file, and when I called the [facility] microbiology lab, they reported no further synovial [...] to the referring provider 60 minutes of [id number] time was spent with the patient, more than half of which was spent in counseling or coordination of care. REGGIE HULL MD 08/21/2018 8:41 PM documented in this encounter Plan of Treatment Not on file documented as of this encounter Visit Diagnoses Diagnosis Infection of prosthetic joint, initial encounter documented in this encounter Care Teams Creative Recruiter Relationship Specialty Start Date End Date Gissell Davis APRN [address] [place] [address] PCP - General Family Medicine 08/21/18 11/12/21 documented as of this encounter
--- OUTSIDE RECORDS SUMMARY | 2023-10-06 02:03 | XMS_ITS | Encounter Summary ---
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 Referral ID Status Reason Start Date Expiration Date Visits Re quested Visits Authorized [id number] 1 1 Encounter Details Date Type Department Care Team (Late st Contact Info) Description 10/16/2018 4:38 PM EDT Anesthesia [place] [id number] Kenneth Peterson MD [facility] [place] [address] León Trujillo MD [facility] [place] [address] Anesthesia Record Procedure Summary Procedure Name Responsible [...] Procedure Summary Date: 10/16/18 Room / Location: [facility] MAIN OR Anesthesia Start: 1638 Anesthesia Stop: 1746 Procedures: CYSTO, STENT PLACEMENT (WRVU 2.82) (Bilateral Ureter) CYSTO, RETROGRADE, URETEROPYELOGRAPHY (WRVU 2.37) (Bilateral Ureter) Diagnosis: (Bilateral nephrolithiasis) Surgeon: Agustin Crespo MD Responsible Provider: Kenneth Peterson MD Anesthesia Type: general ASA Status: 2 All Anesthesia Providers: Anesthesiologist: Kenneth Peterson MD Fine Hairer: Mario Simpson MD Vitals Value Taken Time BP Temp Pulse 76 10/16/2018 5:45 PM Resp SpO2 99 % 10/16/2018 5:45 PM Pain Level Vitals shown include unvalidated device data. Patient Location: PACU/[facility] Level of Consciousness: Awake and Alert Pain [...] IV access Mario Simpson MD CA-1 Pager #[phone] Airport Clerk (MD Ilya RUIZ MPH) Agree with Dr [...] dextrose 5% 200 mL 400 mg, Intravenous, REGIONAL BUSINESS MANAGER TO O.R., 1 dose, On Mon10/16/18 at [...] mg documented in this encounter Care Teams Alarm Mechanism Adjuster Relationship Specialty Start Date End Date Gissell Davis, RECORDS ANALYST [address] [place] [address] PCP - General Family Medicine 08/21/18 11/12/21 documented as of this encounter
--- OUTSIDE RECORDS SUMMARY | 2023-10-06 02:03 | XMS_ITS | Encounter Summary ---
Author Organization [facility] [place] [address] Care Team Providers Care Supervisor Dog License Officer Name Role Phone Susan Gissell Katherine YOU Primary Care Provider Encounter Details Date Type Department Care Team (Late st Contact Info) Description 10/24/2018 [place] [address] [facility] [place] [address] Other symptoms and signs involving the genitourinary [...] Culture No growth (Less than 1,000 cfu/ml). [facility] Urine specimen obtained by clean catch procedure (specimen) 11/16/2018 7:43 AM EDT 11/16/2018 8:33 AM EDT Narrative Resulting Agency Comment Spec In Lab Nena Ace MD MICROBIOLOGY [place] [address] documented in this encounter Visit Diagnoses Diagnosis Other symptoms and signs involving the genitourinary system documented in this encounter Care Teams Supervisor Dog License Officer Relationship Specialty Start Date End Date Gissell Davis APRN [address] [place] [address] PCP - General Family Medicine 08/21/18 11/12/21 documented as of this encounter
--- OUTSIDE RECORDS SUMMARY | 2023-10-06 02:03 | XMS_ITS | Encounter Summary ---
Author Organization [facility] [place] [address] Care Team Providers Care Waiter/Waitress Bar Name Role Phone Carla Lieberman MD Primary Care Provider [phone] Reason for Visit * Reason Onset Date Comments Hemoptysis 08/26/2010 Encounter Details Date Type Department Care Team (Late st Contact Info) Description 08/26/2010 Telephone [place] [phone] Rica Zavala RN Hemoptysis Social History Tobacco [...] on filedocumented in this encounter Care Teams Waiter/Waitress Bar Relationship Specialty Start Date End Date Carla Lieberman MD [address] [place] [address] PCP - General 01/12/10 08/19/18 documented as of this encounter
--- OUTSIDE RECORDS SUMMARY | 2023-10-06 02:03 | XMS_ITS | Encounter Summary ---
Author Organization [facility] Address [facility] [place] [address] Care Team Providers Care Venetian Blind Tape Cutter Name Role Phone Carla Lieberman MD Primary Care Provider [phone] Encounter Details Date Type Department Care Team (Late st Contact Info) Description 04/16/2018 Ancillary Procedure [place] [phone] Gissell Davis, KENYATTA [address] [place] [address] Social History Tobacco Use Types Packs/Day Years [...] APRN IMG FILM LIBRARY ORD ERABLES [facility] [place], [place] documented in this encounter Visit Diagnoses Not on filedocumented in this encounter Care Teams Venetian Blind Tape Cutter Relationship Specialty Start Date End Date Carla Lieberman MD [address] [place] [address] PCP - General 01/12/10 08/19/18 documented as of this encounter
--- OUTSIDE RECORDS SUMMARY | 2023-10-06 02:03 | XMS_ITS | Encounter Summary ---
Author Organization [facility] [place] [address] Care Team Providers Care Fabric Sourcer Name Role Phone Carla Lieberman MD Primary Care Provider [phone] Reason for Visit * Reason Onset Date Comments Other 07/08/2010 Encounter Details Date Type Department Care Team (Late st Contact Info) Description 07/08/2010 Telephone Gastroenterology [place] [phone] Ash Pinto MD [facility] [place] [address] Other Social History Tobacco Use Types Packs/Day [...] on filedocumented in this encounter Care Teams Fabric Sourcer Relationship Specialty Start Date End Date Carla Lieberman MD [address] [place] [address] PCP - General 01/12/10 08/19/18 documented as of this encounter
--- NOTE | 2023-10-12 13:29 | W.NUTRFU ---
Date of service: 10/06/23 Time of Service: 11:30 Nutrition Note NOTE: Fay arrives for referred nutrition visit for unintentional weight loss mostly attributed to continued upper GI concerns with swallowing and food feeling stuck. Pt is s/p Nga fundoplication. Has history of DMII with recent hypoglycemic episodes noted and diabetes meds on hold except for jardiance. MASLD and HLD also in her PMH. Pt noted that her surgery significantly helped her GERD concerns - no longer an issue and is thankful. However the dysphagia that is prominent now is a concern in meeting her nutrition needs. PT states she was ~185lbs before having significant GI upper GI concerns, leading up to surgery. She is now 119lbs, a 66lb weight loss - a 35% loss of body weight. Fay states she was needing to lose weight and not interested in gaining much back (she is at a normal BMI of 21 currently). I expressed I was ok with her current weight but we need to address further weight loss and ensure she meets her micro nutrient needs as well as protein, fiber and healthy fats or her health will continue to deteriorate. Pt takes 1 Ensure ONS drink per day and blends with fruit and yogurt - takes a while to drink but describes less discomfort with this. Although she had not tolerated orange juice too well prior to surgery, finds it the most helpful and convenient to bring glucose up after low's. As it seems there is still some difficulty with meeting her nutrition needs orally with the amount of time and effort she will need to put into ensuring adequate textures are met for easier toleration with swallowing. We reviewed IDDSI minced and moist consistency of foods in a handout she took home. Explained that this consistency is to help conserve energy as well as prevent choking and have less difficulty with swallowing at meals. Reviewed using liquids with minced meat protein and using slow wet cooking methods like pressure cooker/slow cooker to make meats tender and easy to break up. Reviewed continuing ONS with Ensure is a good idea to support protein and micronutrient intake. REviewed other foods that are convenient sources of protein - low sodium cottage cheese, yogurts, protein powder mixed in liquid, tofu, lentils. Pt could benefit from multivitamin and mineral powder or liquid for ease of toleration as well as considering something like Mirtazapine HS for appetite stimulation as she reports less interest/appetite in eating regular meals. Fay left with my contact info should she have any questions or would like some more tips on creatively meeting her nutrition needs while going through these upper GI issues. Time Spent in Nutritional Counseling and Treatment: 25 min
== END 2023-10-06 01:56 | disposition home or self-care (01) ==
LOC: DS 01:55
PROVIDERS: PCP Nurse Practitioner Family; Visit Provider Dietitian, Registered
DX: Z98.890 Other specified postprocedural states (principal); R63.4 Abnormal weight loss
CPT/HCPCS: 123; 97802; 00123

== ENCOUNTER 2023-10-18 01:43 | Outpatient (CLI) | payer MEDICARE, SELFPAY ==
--- OUTSIDE RECORDS SUMMARY | 2023-10-18 01:45 | XMS_ITS | Encounter Summary ---
[place] [address] Care Team Providers Care Senior Revenue Accountant Name Role Phone Unknown Primary Care Provider Unavailabl e Reason for Visit * Diagnostic Test (Routine) - Closed Specialty Diagnoses / Procedures Referred By Contac t Referred To Contact Gastroenterology Diagnoses Heartburn HREM - heartburn see also ph imp Procedures High Resolution Esophageal Manometry HREM - heartburn Ward Rosa MD [address] [place] [address] [facility] [address] [place] [address] Referral ID Status Reason Start Date Expiration Date V isits Requested Visits Authorized [id number] Closed Test Only 12/15/2021 12/15/2022 1 1 Encounter Details Date Type Department Care Team ([facility] Contact Info) Description 03/22/2022 8:00 AM EST Office [place] [address] Heartburn Social History Tobacco Use Types Packs/Day [...] MANOMETRY PROCEDURE NOTE Patient: Barbara Chapman Address: [address] [place] [address] : 1970 Date of service: 03/22/2022 Indication: [...] relaxation pressure: 0 mmHg (normal <12 mmHg) Video Library Assistant swallow: Impressions based on Monteagle Classification v4.0: No evidence of a clinically significant disorder of peristalsis or EGJ outflow obstruction. *These findings assume that mechanical obstruction has been ruled out. Gonzalo Dennis MD, FRCPC Section of Gastroenterology and Hepatology [facility] [place] [address] V: [phone] F: [phone] CC/EC: Unknown None * Gonzalo Dennis MD - 03/22/2022 8:00 AM EST Catheter-based pH/impedance procedure report Patient: Barbaar Chapman Address: [address] [address] : 1970 Referring provider: Ward Rosa Date [...] the Rowland Consensus. Gut. 2018 Aug; 67(7): 9048-5871. 2) Validation of the Rowland classification for GORD diagnosis: acid exposure time assessed by prolonged wireless pH monitoring in healthy controls and patients with erosive oesophagitis. Gut. 2020. doi10.1136/dftmin-0086-295774. Gonzalo Dennis MD, FRCPC Section of Gastroenterology and Hepatology [facility] [place] [address] V: [phone] F: [phone] CC/EC: Unknown None documented in this encounter Plan of Treatment Not on file documented as of this encounter Visit Diagnoses Diagnosis Heartburn documented in this encounter Care Teams Senior Revenue Accountant Relationship Specialty Start Date End Date Unknown None PCP - General 11/13/21 documented as of this encounter
--- OUTSIDE RECORDS SUMMARY | 2023-10-18 01:45 | XMS_ITS | Encounter Summary ---
Author Organization [facility] [place] [address] Care Team Providers Care Survey Methodologist Name Role Phone Gissell Davis APRN Primary Care Provider Encounter Details Date Type Department Care Team (Late st Contact Info) Description 11/17/2020 Telephone [place] [address] Christopher Pillai Social History Tobacco Use Types [...] calls can be handled by: Motility Lab Teacher Counselor documented in this encounter Plan of Treatment Not on file documented as of this encounter Visit Diagnoses Not on filedocumented in this encounter Care Teams Survey Methodologist Relationship Specialty Start Date End Date Gissell Davis APRN [address] [place], [place] [address] PCP - General Family Medicine 08/21/18 11/12/21 documented as of this encounter
--- OUTSIDE RECORDS SUMMARY | 2023-10-18 01:45 | XMS_ITS | Encounter Summary ---
Author Organization [facility] Address [address] [place] [address] Care Team Providers Care Avionics Integration Engineer Name Role Phone Unknown, Provider Primary Care Provider Encounter Details Date Type Department Care Team (Late st Contact Info) Description 02/17/2009 Orders Only [facility] Laboratory Services - [facility] [address] [place], [place] [address] Garett Barba, DO [address] [facility] [address] [place], [place] [id number] Social History Tobacco Use Types Packs/Day Years [...] CHAPMAN, BARBARA A ? Accession #: ? [id number] ? : ? 1970 (Age: 38) ??F [...] ??The ? specimens are serially sectioned and franchise sales representative sections are submitted, with the smaller as (A1) and larger as (A2). ??(Suri Horn/radha ? End of Report ? DAIN GOMEZ 02/17/2009 02/18/2009 9:2 0 EST Garett Barba DO PATHOLOGY ORDER TRE [facility] [address] [place] [address] documented in this encounter Visit Diagnoses Not on filedocumented in this encounter Care Teams Avionics Integration Engineer Relationship Specialty Start Date End Date Unknown, Provider, PCP - General 07/17/08 01/27/10 documented as of this encounter
--- OUTSIDE RECORDS SUMMARY | 2023-10-18 01:45 | XMS_ITS | Encounter Summary ---
[place] [address] Care Team Providers Care Stenotype Machine Operator Name Role Phone Gissell Davis APRN Primary Care Provider [phone] Reason for Referral * Diagnostic Test (Routine) - Closed Specialty Diagnoses / Procedures Referred By Contac t Referred To Contact Radiology Diagnoses Status post left partial knee replacement Left knee pain, unspecified chronicity Procedures US Extremity Non Vascular MSK (Muscles Joints) Left Raheel Gongora MD [address] [place] [address] [place] [address] Referral ID Status Reason Start Date Expiration Date V isits Requested Visits Authorized [id number] Closed Specialty Service Requested 10/21/2020 04/20/2022 1 1 Reason for Visit * Diagnostic Test (Routine) - Closed Specialty Diagnoses / Procedures Referred By Contac t Referred To Contact Radiology Diagnoses Status post left partial knee replacement Left knee pain, unspecified chronicity Procedures US Extremity Non Vascular MSK (Muscles Joints) Left Raheel Gongora MD [address] [place] [address] [facility] [place] [address] Referral ID Status Reason Start Date Expiration Date V isits Requested Visits Authorized [id number] Closed Specialty Service Requested 10/21/2020 04/20/2022 1 1 Encounter Details Date Type Department Care Team (Latest Contact Info) Description 11/04/2020 3:04 PM EDT - 11/04/2020 11:59 PM EDT Hospital [place] [address] Raheel Gongora MD [address] [place] [address] Status post left partial knee replacement; Left [...] who have questions please contact the health hiv/aids care nurse that requested your imaging first. ? Electronically signed by: Elizabeth Hanson MD, [facility] ([phone]), at 11/04/2020 4:25 PM Narrative 11/04/2020 4:25 [...] patients who have questions please contactthe health hiv/aids care nurse that requested your imaging first. Electronically signed by: Elizabeth Hanson MD, [facility]([phone]), at 11/04/2020 4:25 PM Raheel Gongora MD IMG US GEN ORDERABLE S documented in this encounter Visit Diagnoses Diagnosis Status post left partial knee replacement Knee joint replacement by other means Left knee pain, unspecified chronicity documented in this encounter Care Teams Stenotype Machine Operator Relationship Specialty Start Date End Date Gissell Davis APRN [address] [place] [address] PCP - General Family Medicine 08/21/18 11/12/21 documented as of this encounter
--- OUTSIDE RECORDS SUMMARY | 2023-10-18 01:45 | XMS_ITS | Encounter Summary ---
Author Organization [facility] Address [address] [place] [address] Care Team Providers Care Butcher Or Smallgoods Maker Name Role Phone Mary Carrillo Primary Care Provider Unavailab le Encounter Details Date Type Department Care Team (Late st Contact Info) Description 11/14/2013 Results Only [facility] Laboratory Services - [facility] ([facility]) [address] [place], [place] [address] Mike Wade MD [address] [place] [phone] Social History Tobacco Use Types Packs/Day [...] ? BARBARA CHAPMAN ? Accession #: ? [id number] ? : ? 1970 (Age: 43) ??F ? Collect Date: ? 11/14/2013 ? Location: ? [facility] ? Receive Date: ? 11/15/2013 ? Provider: MIKE WADE MD Copy to: VANESSA THOMPSON INSTRUMENT INSTALLER ? Final Pathologic Diagnosis: GASTROESOPHAGEAL JUNCTION, BIOPSY: [...] MD PATHOLOGY ORDERABLES [facility] [address] [place] [address] documented in this encounter Visit Diagnoses Not on filedocumented in this encounter Care Teams Butcher Or Smallgoods Maker Relationship Specialty Start Date End Date Mary Carrillo PA PCP - General 01/28/11 12/05/19 documented as of this encounter
--- OUTSIDE RECORDS SUMMARY | 2023-10-18 01:45 | XMS_ITS | Encounter Summary ---
Author Organization [facility] Address [address] [place] [address] Care Team Providers Care Truck Car And Bus Cleaner Name Role Phone Mary Carrillo Primary Care Provider Unavailab le Encounter Details Date Type Department Care Team (Late st Contact Info) Description 09/28/2016 Results Only [facility] [phone] Garett Barba, DO [address] [facility] [address] [place] [address] Social History Tobacco Use Types Packs/Day Years [...] ? BARBARA CHAPMAN ? Accession #: ? [id number] ? : ? 1970 (Age: 46) ??F ? Collect Date: ? 09/28/2016 ? Location: ? [facility] ? Receive Date: ? 09/28/2016 ? Provider: GARETT BARBA DO Copy to: VANESSA THOMPSON HEALTH RECORD TECHNICIAN ? Final Pathologic Diagnosis: A. DUODENUM, BIOPSY: [...] ANTIBODY(CLONE)(BLO CK):RESULT H. pylori (Rabbit Monoclonal (SP48), [place]) (B1): ??Negative ? NOTE: ??One or more [...] performance characteristics have been determined by the [facility]. ??The positive and negative controls worked [...] EDT Garett Barba DO PATHOLOGY ORDER TRE [facility] [address] [place] [address] documented in this encounter Visit Diagnoses Not on filedocumented in this encounter Care Teams Truck Car And Bus Cleaner Relationship Specialty Start Date End Date Mary Carrillo PA PCP - General 01/28/11 12/05/19 documented as of this encounter
--- OUTSIDE RECORDS SUMMARY | 2023-10-18 01:45 | XMS_ITS | Encounter Summary ---
Author Organization [facility] Address [address] [place] [address] Care Team Providers Care Bobbin Sorter Name Role Phone Unknown, Provider Primary Care Provider Carla Reinoso MD Primary Care Provider [phone] Mary Carrillo Primary Care Provider Unavailab le Encounter Details Date Type Department Care Team (Late st Contact Info) Description 06/27/2006 Results Only [facility] - Maple conversion [address] [place] [address] Garett Barba, DO [address] [facility] [address] [place] [address] Social History Tobacco Use Types Packs/Day Years [...] ? BARBARA CHAPMAN ? Accession #: ? [id number] ? : ? 1970 (Age: 35) ??F [...] ??PAS-amylase is negative for fungal organisms. ??(Dr. Escalona)/[facility] ?? Document reviewed and electronically signed [...] PATHOLOGY ORDER TRE [facility] [address] [place] [address] documented in this encounter Visit Diagnoses Not on filedocumented in this encounter Care Teams Bobbin Sorter Relationship Specialty Start Date End Date Unknown, Provider, PCP - General 07/17/08 01/27/10 Carla Reinoso MD [address] [place] [address] PCP - General 07/16/08 07/16/08 Mary Carrillo PA PCP - General 01/28/10 01/02/11 documented as of this encounter
--- OUTSIDE RECORDS SUMMARY | 2023-10-18 01:45 | XMS_ITS | Encounter Summary ---
Author Organization [facility] Address [address] [place] [address] Care Team Providers Care Outside Contractor Sales Name Role Phone Unknown, Provider Primary Care Provider Carla Lieberman MD Primary Care Provider Encounter Details Date Type Department Care Team (Late st Contact Info) Description 07/12/1999 Results Only [facility] - Maple conversion [address] [place] [address] Ed Mosqueda MD [address] [facility] [address] [place] [phone] Social History Tobacco Use Types Packs/Day [...] [facility] Report Status (Note) FINAL [id number] ? TEST PERFORMED OR REFERRED BY MML ? MML ? [address] ? [place], [place] ??[address] ? [facility] 07/12/1999 10:3 0 EDT 07/26/1999 15:56 EDT Ed Mosqueda MD HISTORICAL LAB FOR S Q LOAD [facility] [address] [place] [address] * CYTOPATHOLOGY (07/12/1999 0:00 EDT) Pathology Report: CYTOPATHOLOGY REPORT Reports generated via electronic interface contain original data; however they are lacking the format of the original report. Caution should be taken when reading/interpreti ng unformatted reports. Name: ? BARBARA CHAPMAN ? Accession #: ? [id number] : ? 1970 (Age: 29) ??F ?Collect [...] de Phone Number [facility] [address] [place] [address] documented in this encounter Visit Diagnoses Not on filedocumented in this encounter Care Teams Outside Contractor Sales Relationship Specialty Start Date End Date Unknown, Provider, PCP - General 07/17/08 01/27/10 Carla Lieberman MD [address] [place] [address] PCP - General 07/16/08 07/16/08 documented as of this encounter
--- OUTSIDE RECORDS SUMMARY | 2023-10-18 01:45 | XMS_ITS | Encounter Summary ---
Author Organization [facility] Address [address] [place] [address] Care Team Providers Care Loom Setter Fourdrinier Name Role Phone Mary Carrillo Primary Care Provider Unavailab le Encounter Details Date Type Department Care Team (Late st Contact Info) Description 07/19/2013 Results Only [facility] Laboratory Services - [facility] ([facility]) [address] [place], [place] [id number] Garett Barba, DO [address] [facility] [address] [place] [address] Social History Tobacco Use Types [...] ? BARBARA CHAPMAN ? Accession #: ? [id number] ? : ? 1970 (Age: 43) ??F [...] PATHOLOGY ORDER TRE [facility] [address] [place] [address] documented in this encounter Visit Diagnoses Not on filedocumented in this encounter Care Teams Loom Setter Fourdrinier Relationship Specialty Start Date End Date Mary Carrillo PA PCP - General 01/28/11 12/05/19 documented as of this encounter
--- OUTSIDE RECORDS SUMMARY | 2023-10-18 01:45 | XMS_ITS | Encounter Summary ---
Author Organization [facility] Address [address] [place] [address] Care Team Providers Care College Scouting Coordinator Name Role Phone Unknown, Provider Primary Care Provider [phone] Carla Lieberman MD Primary Care Provider [phone] Encounter Details Date Type Department Care Team (Late st Contact Info) Description 10/01/1999 Results Only [facility] - Maple conversion [address] [place] [address] Jeremi Barba MD [address] [place] [address] Social History Tobacco Use Types Packs/Day Years [...] ? BARBARA CHAPMAN ? Accession #: ? [id number] ? : ? 1970 (Age: 29) ??F [...] Barba MD PATHOLOGY ORDERABLE S [facility] [address] [place] [address] documented in this encounter Visit Diagnoses Not on filedocumented in this encounter Care Teams College Scouting Coordinator Relationship Specialty Start Date End Date Unknown, Provider, PCP - General 07/17/08 01/27/10 Carla Lieberman MD [address] [place] [address] PCP - General 07/16/08 07/16/08 documented as of this encounter
--- OUTSIDE RECORDS SUMMARY | 2023-10-18 01:45 | XMS_ITS | Encounter Summary ---
Author Organization [facility] Address [address] [place] [address] Care Team Providers Care Dyer Helper Name Role Phone Susan Gissell Katherine HAAS Primary Care Provider [phone] Encounter Details Date Type Department Care Team (Late st Contact Info) Description 04/07/2023 Lab Requisition [facility] Pathology & Laboratory Medicine - [address] [address] Outr Resulting Lab, Provider Social History Tobacco [...] C Antibody Negative Negative 04/07/2023 18:04 EST [facility] Blood VENOUS BLOOD / Unknown 04/07/2023 10:15 EST 04/07/2023 16:32 EST Provider Outr Resulting Lab CHEMISTRY & BLOOD GAS ORDERABLES [facility] [address] [place] [address] documented in this encounter Visit Diagnoses Not on filedocumented in this encounter Care Teams Dyer Helper Relationship Specialty Start Date End Date Gissell Davis NP [address] [place] [phone] PCP - General 12/06/19 documented as of this encounter
--- OUTSIDE RECORDS SUMMARY | 2023-10-18 01:45 | XMS_ITS | Encounter Summary ---
Author Organization [facility] Address [address] [place] [address] Care Team Providers Care Double Needle Operator Name Role Phone Carla Lieberman MD Primary Care Provider [phone] Encounter Details Date Type Department Care Team (Late st Contact Info) Description 01/26/2011 Results Only [facility] [phone] Daniel Conti MD [address] [place] [address] Social History Tobacco Use Types Packs/Day Years [...] ? BARBARA CHAPMAN ? Accession #: ? [id number] ? : ? 1970 (Age: 40) ??F [...] are no nodules identified within the myometrium. ??Industrial Insulator sections, including approximately 70% of the discernible endometrium, are submitted as follows: BLOCK MACK A1-A3 ?Endometrium to myometrium A4 ?Myometrium and serosa (Ankit Coughlin)/radha End of Report [facility] 01/26/2011 01/26/2011 17: 31 EST Daniel Conti MD PATHOLOGY ORDERABLES [facility] [address] [place] [address] documented in this encounter Visit Diagnoses Not on filedocumented in this encounter Care Teams Double Needle Operator Relationship Specialty Start Date End Date Carla Lieberman MD [address] [place], [place] [phone] PCP - General 01/03/11 01/27/11 documented as of this encounter
--- OUTSIDE RECORDS SUMMARY | 2023-10-18 01:45 | XMS_ITS | Referral Summary ---
Author Organization [facility] Address [address] [place] [address] Care Team Providers Care Director Property Name Role Phone Gissell Davis NP Primary Care Provider [phone] Encounters Date Type Department Care Team Description 10/05/2023 Lab Requisition [facility] Pathology & Laboratory [address] [address] Outr Resulting Lab, Provider 10/05/2023 Lab Requisition [facility] Pathology & Laboratory [address] [address] Outr Resulting Lab, Provider from Last 3 [...] REFLEX TO HCV RNA BY PCR Routine 10/05/2023 8:58 EDT HEPATITIS B PROFILE Routine 10/05/2023 8 :58 EDT HIV 1/2 ANTIGEN AND ANTIBODY, 4TH GENERATION Routine 10/05/2023 8:58 EDT from Last 3 Months Results * HEPATITIS C AB W REFLEX TO HCV RNA BY PCR (10/05/2023 8:58 EDT) Hep C Antibody Negative Negative 10/06/2023 9:35 EDT [facility] Blood VENOUS BLOOD / Unknown 10/05/2023 8:58 EDT 10/05/2023 17:45 EDT Provider Outr Resulting Lab CHEMISTRY & BLOOD GAS ORDERABLES Performing Organization Address [facility] Co de Phone Number [facility] [address] [place], [place] [phone] * HEPATITIS B PROFILE (10/05/2023 8:58 EDT) Hep B Surface Ag Negative Negative 10/06/19 9:53 EDT [facility] Hep B Surface Ab, Quantitative <3.1 See Note mIU/mL 10/06/2023 9:53 EDT [facility] Comment: Reference Range for Hep B Surface Ab, Quant: Positive: >= 10.0 mIU/mL Negative: ??< 10.0 mIU/mL Patient is presumed to not be immune to infection with Hepatitis B Virus. Hep B Surface Ab, Qualitative Negative See Note 10/06/2023 9:53 EDT [facility] Comment: Reference Range for Hep B Surface Ab, Qual: Unvaccinated: ??Negative Vaccinated: ??Positive Hepatitis B Core Ab, Total Negative Negative 10/06/2023 9:53 EDT [facility] Blood VENOUS BLOOD / Unknown 10/05/2023 8:58 EDT 10/05/2023 17:45 EDT Provider Outr Resulting Lab CHEMISTRY & BLOOD GAS ORDERABLES Performing Organization Address [facility]/ZIP Co de Phone Number [facility] [address] [place], [place] [id number] * HIV 1/2 ANTIGEN AND ANTIBODY, 4TH GENERATION (10/05/2023 8:58 EDT) HIV 1 and 2 Antibody/p24 Antigen, 4th Generation Negative Negative 10/06/2023 9:09 EDT [facility] Comment:If acute HIV-1 infec tion is suspected in a high risk patient, submit plasma specimen for HIV-1 RNA quantitation test. Blood VENOUS BLOOD / Unknown 10/05/2023 8:58 EDT 10/05/2023 17:45 EDT Narrative [facility] - 10/06/2023 9:09 EDT Fourth Generation assay performed on the Siemens Centaur XPT. Provider Outr Resulting Lab IMMUNOLOGY A ND SEROLOGY ORDERABLES [facility] [address] [place] [address] from Last 3 Months Care Teams Director Property Relationship Specialty Start Date End Date Gissell Davis NP [address] [place] [phone] PCP - General 12/06/19
--- OUTSIDE RECORDS SUMMARY | 2023-10-18 01:45 | XMS_ITS | Encounter Summary ---
[place] [address] Care Team Providers Care Dice Spotter Name Role Phone Unknown Primary Care Provider [...] on filedocumented in this encounter Care Teams Dice Spotter Relationship Specialty Start Date End Date Unknown None PCP - General 11/13/21 documented as of this encounter
--- OUTSIDE RECORDS SUMMARY | 2023-10-18 01:45 | XMS_ITS | Encounter Summary ---
Author Organization [facility] Address [address] [place] [address] Care Team Providers Care Sanitation Laborer Name Role Phone Mary Carrillo Primary Care Provider Unavailab Gissell Muñiz NP Primary Care Provider Encounter Details Date Type Department Care Team (Late st Contact Info) Description 08/19/2019 Lab Requisition [facility] Pathology & Laboratory Medicine - [facility] [address] [place], [place] [address] Outr Resulting Lab, Provider Social History Tobacco [...] Outr Resulting Lab MICROBIOLOGY - GENERAL ORDERABLES [facility] [address] [place] [address] * COVID-19 TESTING (08/19/2019 9:51 EDT) COVID-19 rt-PCR Result Negative Negative 08/20/2019 0:[address] [facility] Comment: This test has [...] history, and epidemiological information. Performed on the [employer] Fusion instrument Performing Lab [facility] 08/20/2019 0:[address] [facility] Swab 08/19/2019 9:51 EDT 08/19/2019 15:42 EDT Provider Outr Resulting Lab MICROBIOLOGY - GENERAL ORDERABLES [facility] [address] [place] [address] documented in this encounter Visit Diagnoses Not on filedocumented in this encounter Care Teams Sanitation Laborer Relationship Specialty Start Date End Date Mary Carrillo PA PCP - General 01/28/11 12/05/19 Gissell Davis NP [address] [place] [phone] PCP - General 12/06/19 documented as of this encounter
--- OUTSIDE RECORDS SUMMARY | 2023-10-18 01:45 | XMS_ITS | Encounter Summary ---
[place] [address] Care Team Providers Care Notched Blade Loader Name Role Phone Unknown Primary Care Provider Unavailabl e Encounter Details Date Type Department Care Team (Late st Contact Info) Description 12/27/2021 [place] [address] Stacey Pool RN Social History Tobacco Use [...] on filedocumented in this encounter Care Teams Notched Blade Loader Relationship Specialty Start Date End Date Unknown None PCP - General 11/13/21 documented as of this encounter
--- OUTSIDE RECORDS SUMMARY | 2023-10-18 01:45 | XMS_ITS | Encounter Summary ---
Author Organization [facility] Address [address] [place] [address] Care Team Providers Care Shipping Manager Name Role Phone Mary Carrillo Primary Care Provider Unavailab le Encounter Details Date Type Department Care Team (Latest Contact Info) Description 03/18/2015 17:53 EST - 03/18/2015 23:59 EST Hospital Encounter [address] [address] Unknown, Provider, Discharge Disposition: Home or Self Care Social History Tobacco Use Types Packs/Day Years Used Date Smoking Tobacco: Never Assessed Sex and Gender Information Value Date Recorded Sex Assigned at Not on file Gender Identity Not on file Sexual Orientation Not on file documented as of this encounter Discharge Disposition Disposition Code Departure Means Destination Home or Self Skilled Nursing documented in this encounter Plan of Treatment Not on file documented as of this encounter Visit Diagnoses Not on filedocumented in this encounter Care Teams Shipping Manager Relationship Specialty Start Date End Date Mary Carrillo PA PCP - General 01/28/11 12/05/19 documented as of this encounter
--- OUTSIDE RECORDS SUMMARY | 2023-10-18 01:45 | XMS_ITS | Encounter Summary ---
Author Organization [facility] Address [address] [place] [address] Care Team Providers Care Master Machinist Name Role Phone Mary Carrillo Primary Care Provider Unavailab le Encounter Details Date Type Department Care Team (Latest Contact Info) Description 09/28/2016 11:13 EDT - 09/28/2016 23:59 EDT Hospital Encounter [address] [address] Unknown, Provider, Discharge Disposition: Home or Self Care Social History Tobacco Use Types Packs/Day Years Used Date Smoking Tobacco: Never Assessed Sex and Gender Information Value Date Recorded Sex Assigned at Not on file Gender Identity Not on file Sexual Orientation Not on file documented as of this encounter Discharge Disposition Disposition Code Departure Means Destination Home or Self Usp documented in this encounter Plan of Treatment Not on file documented as of this encounter Visit Diagnoses Not on filedocumented in this encounter Care Teams Master Machinist Relationship Specialty Start Date End Date Mary Carrillo PA PCP - General 01/28/11 12/05/19 documented as of this encounter
--- OUTSIDE RECORDS SUMMARY | 2023-10-18 01:45 | XMS_ITS | Encounter Summary ---
Author Organization [facility] Address [address] [place] [address] Care Team Providers Care Plywood Stock Grader Name Role Phone Mary Carrillo Primary Care Provider Unavailab le Encounter Details Date Type Department Care Team (Late st Contact Info) Description 03/18/2015 Results Only [facility] [phone] Garett Barba, DO [address] [facility] [address] [place] [address] Social History Tobacco Use Types Packs/Day Years [...] ? BARBARA CHAPMAN ? Accession #: ? [id number] ? : ? 1970 (Age: 44) ??F ? Collect Date: ? 03/18/2015 ? Location: ? [facility] ? Receive Date: ? 03/18/2015 ? Provider: GARETT BARBA DO Copy to: VANESSA THOMPSON WREATH MACHINE OPERATOR ? Final Pathologic Diagnosis: A. STOMACH, ANTRUM, [...] eosinophilic esophagitis. H PYLORI (Rabbit Monoclonal (SP48), [place]) (A1): Negative NOTE: ??One or more of [...] C1. 03/19/2015 8:59 AM End of Report [facility] 03/18/2015 20:2 9 EST 03/18/2015 20:29 EST Garett Barba DO PATHOLOGY ORDER TRE [facility] [address] [place] [address] documented in this encounter Visit Diagnoses Not on filedocumented in this encounter Care Teams Plywood Stock Grader Relationship Specialty Start Date End Date Mary Carrillo PA PCP - General 01/28/11 12/05/19 documented as of this encounter
--- OUTSIDE RECORDS SUMMARY | 2023-10-18 01:45 | XMS_ITS | Encounter Summary ---
Author Organization [facility] Address [address] [place] [address] Care Team Providers Care Pantograph Watcher Name Role Phone Unknown, Provider Primary Care Provider [phone] Carla Reinoso MD Primary Care Provider [phone] Encounter Details Date Type Department Care Team (Late st Contact Info) Description 06/10/2004 Results Only [facility] - Maple conversion [address] [place] [address] Garett Barba, DO [address] [facility] [address] [place], [place] [address] Social History Tobacco Use Types Packs/Day Years [...] BARBARA CHAPMAN [place] ? Accession #: ? [id number] ? : ? 1970 (Age: 33) ??F [...] PATHOLOGY ORDER TRE [facility] [address] [place] [address] documented in this encounter Visit Diagnoses Not on filedocumented in this encounter Care Teams Pantograph Watcher Relationship Specialty Start Date End Date Unknown, Provider, PCP - General 07/17/08 01/27/10 Carla Reinoso MD [address] [place] [id number] PCP - General 07/16/08 07/16/08 documented as of this encounter
--- OUTSIDE RECORDS SUMMARY | 2023-10-18 01:45 | XMS_ITS | Encounter Summary ---
Author Organization [facility] Address [address] [place] [address] Care Team Providers Care Health And Wellness Coordinator Name Role Phone Dean Carrillo Primary Care Provider Unavailab le Encounter Details Date Type Department Care Team (Late st Contact Info) Description 06/14/2010 Results Only [facility] Laboratory Services - [facility] ([facility] [address] [place] [address] Vignesh Mcpherson MD [address] [place] [address] Social History Tobacco Use Types Packs/Day [...] CHAPMAN, BARBARA A ? Accession #: ? [id number] ? : ? 1970 (Age: 39) ??F [...] ??There is a focal area of hemorrhage. ??J2Ee Consultant sections are submitted as (A1) and (A2). ? Received in formalin labeled Chapman, Barbara and right tonsil is a guerra-pink, ovoid, unoriented soft tissue measuring 3.4 x 2.2 x 1.3 cm and is partially ? surfaced by a guerra, smooth to wrinkled mucosa. ??The cut surfaces are guerra-pink ? with a crypt-like architecture. ??No discrete nodules are present. ??A ? title insurance sales representative section is submitted as (B). ? Received in formalin labeled Chapman, Barbara and uvula is a guerra-pink, ? triangular 1.2 x 0.6 x 0.5 cm soft tissue surfaced by a guerra smooth to wrinkled ?? mucosa. ??The cut surfaces are white and homogeneous. ??No definitive nodules ? present. ??A title insurance sales representative section is submitted as (C). (Suri Davis)/mpl ? End of Report ? [facility] 06/14/2010 06/14/2010 8:3 3 EDT Vignesh Mcpherson MD PATHOLOGY ORDERABLES Performing Organization Address City/State/[facility] Co de Phone Number [facility] [address] [place] [address] documented in this encounter Visit Diagnoses Not on filedocumented in this encounter Care Teams Health And Wellness Coordinator Relationship Specialty Start Date End Date Dean Carrillo PA PCP - General 01/28/10 01/02/11 documented as of this encounter
--- OUTSIDE RECORDS SUMMARY | 2023-10-18 01:45 | XMS_ITS | Encounter Summary ---
Author Organization [facility] Address [address] [place] [address] Care Team Providers Care Superintendent Sales Name Role Phone Unknown, Provider Primary Care Provider Carla Reinoso MD Primary Care Provider [phone] Mary Carrillo Primary Care Provider Unavailab le Encounter Details Date Type Department Care Team (Late st Contact Info) Description 03/10/2005 Results Only [facility] conversion [address] [place] [address] Taylor Zayas MD [address] [place] [address] [place] [address] Social History Tobacco Use Types Packs/Day Years [...] ? BARBARA CHAPMAN ? Accession #: ? [id number] ? : ? 1970 (Age: 34) ??F [...] tissue, submitted entirely in one cassette. (Jayson Herrmann)/[facility] End of Report [facility] 03/10/2005 03/11/2005 9:2 5 EST Taylor Zayas MD PATHOLOGY ORDERABLES [facility] [address] [place] [address] documented in this encounter Visit Diagnoses Not on filedocumented in this encounter Care Teams Superintendent Sales Relationship Specialty Start Date End Date Unknown, Provider, PCP - General 07/17/08 01/27/10 Carla Reinoso MD [address] [address] PCP - General 07/16/08 07/16/08 Mary Carrillo PA PCP - General 01/28/10 01/02/11 documented as of this encounter
--- OUTSIDE RECORDS SUMMARY | 2023-10-18 01:45 | XMS_ITS | Encounter Summary ---
Author Organization [facility] [place] [address] Care Team Providers Care Sane Rn Name Role Phone SarthakGissell barriga Katherine YOU Primary Care Provider Encounter Details Date Type Department Care Team (Late st Contact Info) Description 05/04/2020 [place] [phone] Anne Marie Soni RN Social History Tobacco [...] dr. Gamino's team. Anne Marie Soni RN [facility] documented in this encounter Plan of Treatment Not on file documented as of this encounter Visit Diagnoses Not on filedocumented in this encounter Care Teams Sane Rn Relationship Specialty Start Date End Date Gissell Davis APRN [address] [place] [address] PCP - General Family Medicine 08/21/18 11/12/21 documented as of this encounter
--- OUTSIDE RECORDS SUMMARY | 2023-10-18 01:45 | XMS_ITS | Encounter Summary ---
Author Organization [facility] Address [address] [place] [address] Care Team Providers Care Sign Hanger Supervisor Name Role Phone Susan Gissell Murphy NP Primary Care Provider [phone] Encounter Details Date Type Department Care Team (Late st Contact Info) Description 12/09/2019 Lab Requisition [facility] Pathology & Laboratory Medicine - [address] [address] Anni Mast MD [address] [place], [place] [phone] Benign lipomatous neoplasm of skin and subcutaneous [...] Lipoma with focal fat necrosis. 12/12/2019 18:12 [facility] Attestation By the signature below, the attending physician certifies that they have 1) personally conducted a gross and/or microscopic examination of the described specimen(s), and/or personally interpreted the results of laboratory testing of the described specimen(s), and 2) personally rendered or confirmed the above diagnosis. 12/12/2019 18:12 [facility] at 1812 Clinical History Screening; Lipoma right arm 12/12/2019 18:12 T [facility] Gross Description A. Received [...] with no areas of hemorrhage or necrosis. Paper Reel Operator sections are submitted in B1-B3. 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
--- OUTSIDE RECORDS SUMMARY | 2023-10-18 01:45 | XMS_ITS | Encounter Summary ---
[place] [address] Care Team Providers Care Crankshaft Grinder Name Role Phone Unknown Primary Care Provider Unavailabl e Reason for Referral * Diagnostic Test (Routine) - Closed Specialty Diagnoses / Procedures Referred By Darwin martin Referred To Contact Gastroenterology Diagnoses Heartburn pH impedance OFF PPI - heartburn see also hrem Procedures pH Impedance - 24 Hour pH impedance OFF PPI - heartburn Ward Rosa MD [address] [place] [address] [facility] [address] [place] [address] Referral ID Status Reason Start Date Expiration Date V isits Requested Visits Authorized [id number] Closed Consult, Test & Treat 12/15/2021 12/15/2022 1 1 * Diagnostic Test (Routine) - Closed Specialty Diagnoses / Procedures Referred By Darwin martin Referred To Contact Gastroenterology Diagnoses Heartburn HREM - heartburn see also ph imp Procedures High Resolution Esophageal Manometry HREM - heartburn Ward Rosa MD [address] [place] [address] [facility] [address] [place] [address] Referral ID Status Reason Start Date Expiration Date V isits Requested Visits Authorized [id number] Closed Test Only 12/15/2021 12/15/2022 1 1 Encounter Details Date Type Department Care Team (Late st Contact Info) Description 12/15/2021 Transcribe Orders eDH Incoming Referrals [phone] Ward Rosa MD [facility] [address] [place] [address] Heartburn Social History Tobacco Use Types Packs/Day [...] Heartburn documented in this encounter Care Teams Crankshaft Grinder Relationship Specialty Start Date End Date Unknown None PCP - General 11/13/21 documented as of this encounter
--- OUTSIDE RECORDS SUMMARY | 2023-10-18 01:45 | XMS_ITS | Encounter Summary ---
Author Organization [facility] Address [address] [place] [address] Care Team Providers Care Fish Worm Grower Name Role Phone Unknown, Provider Primary Care Provider [phone] Carla Reinoso MD Primary Care Provider [phone] Encounter Details Date Type Department Care Team (Late st Contact Info) Description 03/08/2006 Results Only [facility] - Maple conversion [address] [place] [address] Taylor Zayas MD [address] [place] [address] [place] [address] Social History Tobacco Use Types Packs/Day Years [...] ? BARBARA CHAPMAN ? Accession #: ? [id number] ? : ? 1970 (Age: 35) ??F [...] two cassettes as (A1) and (A2). ??(Dr. Singh)/[facility] End of Report [facility] 03/08/2006 03/08/2006 15: 30 EST Taylor Zayas MD PATHOLOGY ORDERABLES [facility] [address] [place] [address] documented in this encounter Visit Diagnoses Not on filedocumented in this encounter Care Teams Fish Worm Grower Relationship Specialty Start Date End Date Unknown, Provider, PCP - General 07/17/08 01/27/10 Carla Reinoso MD [address] [address] PCP - General 07/16/08 07/16/08 documented as of this encounter
--- OUTSIDE RECORDS SUMMARY | 2023-10-18 01:45 | XMS_ITS | Encounter Summary ---
Author Organization [facility] Address [address] [place] [address] Care Team Providers Care Quill Reamer Name Role Phone Unknown, Provider Primary Care Provider [phone] Encounter Details Date Type Department Care Team (Late st Contact Info) Description 01/26/2010 Results Only [facility] Laboratory Services - [facility] ([facility]) [address] [place], [place] [address] Garett Barba, DO [address] [facility] [address] [place], [place] [phone] Social History Tobacco Use Types Packs/Day Years [...] CHAPMAN, BARBARA A ? Accession #: ? [id number] ? : ? 1970 (Age: 39) ??F [...] ??performance ? characteristics have been determined by [facility]. ??This ? laboratory is certified [...] submitted intact as (A). ? Received in [employer] 3De's fixative labelled Barbara Chapman and #2 bx body of ? stomach are two biopsies measuring 0.6 x 0.3 x 0.1 cm and 0.8 x 0.2 x 0.1 cm. ?? The specimens are submitted intact as (B). ? Received in Izzy Money's fixative labelled Barbara Chapman and #3 bx distal ? esophagus are three biopsies which vary in size from 0.4 x 0.3 x 0.1 cm up to ?? 0.5 x 0.3 x 0.1 cm. ??The specimens are submitted intact as (C). ? Received in Master[employer] 3De's fixative labelled Barbara Chapman and #4 bx mid ? esophagus are two biopsies measuring 0.3 x 0.2 x 0.1 cm and 0.3 x 0.3 x 0.1 cm. The specimens are submitted intact as (D). ? Received in [employer]'s fixative labelled Barbara Chapman and #5 bx proximal ?? esophagus are two biopsies measuring 0.2 x 0.2 x 0.1 cm and 0.4 x 0.3 x 0.1 cm. The specimens are submitted intact as (E). ??(CARLOS A Grewal)/eddan ? End of Report ? [facility] 01/26/2010 01/27/2010 10: 15 EST Garett Barba DO PATHOLOGY ORDER TRE [facility] [address] [place] [address] documented in this encounter Visit Diagnoses Not on filedocumented in this encounter Care Teams Quill Reamer Relationship Specialty Start Date End Date Unknown, Provider, PCP - General 07/17/08 01/27/10 documented as of this encounter
--- OUTSIDE RECORDS SUMMARY | 2023-10-18 01:45 | XMS_ITS | Encounter Summary ---
[place] [address] Care Team Providers Care Rivet Thrower Name Role Phone Gissell Davis APRN Primary Care Provider Reason for Visit * Reason Onset Date Comments Questions 04/29/2020 Encounter Details Date Type Department Care Team (Late st Contact Info) Description 04/29/2020 [place] [phone] Gonzalo Leon Questions Social History Tobacco Use [...] to her referring providor, Dr. Rivas at [place], [place] PH: [phone] FAX: [phone] ?? Plan: spoke w/Dr. Sheffield and relayed to pt we will complete request when statistician mathematical is ready ?? Patient/Responsible alliance party voices an understanding of advice? yes ?? Patient/Responsible alliance party intends to comply with action/disposition: yes documented in this encounter Plan of Treatment Not on file documented as of this encounter Visit Diagnoses Not on filedocumented in this encounter Care Teams Rivet Thrower Relationship Specialty Start Date End Date Gissell Davis APRN [address] [place] [address] PCP - General Family Medicine 08/21/18 11/12/21 documented as of this encounter
--- OUTSIDE RECORDS SUMMARY | 2023-10-18 01:45 | XMS_ITS | Clinical Summary ---
Author Organization [facility] Address [address] [place] [address] Care Team Providers Care Structural Steel Equipment Erector Name Role Phone Gissell Davis NP Primary Care Provider [phone] Encounters Date Type Department Care Team Description 10/05/2023 Lab Requisition [facility] Pathology & Laboratory [address] [address] Outr Resulting Lab, Provider 10/05/2023 Lab Requisition [facility] Pathology & Laboratory [address] [address] Outr Resulting Lab, Provider from Last 3 [...] (1 of 3 - 19+ 3-dose series) 1988 COVID-19 Vaccine (2022- season) 2022 Hepatitis C Screen Completed 10/05/2023, 04/07/2023 Procedures Procedure Name Priority Date/Time Associated [...] C Antibody Negative Negative 10/06/2023 9:35 EDT [facility] Blood VENOUS BLOOD / Unknown 10/05/2023 8:58 EDT 10/05/2023 17:45 EDT Provider Outr Resulting Lab CHEMISTRY & BLOOD GAS ORDERABLES Performing Organization Address [facility]/ZIP Co de Phone Number [facility] [address] [place] [address] * HEPATITIS B PROFILE (10/05/2023 8:58 EDT) Hep B Surface Ag Negative Negative 10/06/19 9:53 EDT [facility] Hep B Surface Ab, Quantitative <3.1 See Note mIU/mL 10/06/2023 9:53 EDT [facility] Comment: Reference Range for Hep B Surface Ab, Quant: Positive: >= 10.0 mIU/mL Negative: ??< 10.0 mIU/mL Patient is presumed to not be immune to infection with Hepatitis B Virus. Hep B Surface Ab, Qualitative Negative See Note 10/06/2023 9:53 EDT [facility] Comment: Reference Range for Hep B Surface Ab, Qual: Unvaccinated: ??Negative Vaccinated: ??Positive Hepatitis B Core Ab, Total Negative Negative 10/06/2023 9:53 EDT [facility] Blood VENOUS BLOOD / Unknown 10/05/2023 8:58 EDT 10/05/2023 17:45 EDT Provider Outr Resulting Lab CHEMISTRY & BLOOD GAS ORDERABLES Performing Organization Address [facility]/ZIP Co de Phone Number [facility] [address] [place] [address] * HIV 1/2 ANTIGEN AND ANTIBODY, 4TH GENERATION (10/05/2023 8:58 EDT) Pathologist [facility] HIV 1 and 2 Antibody/p24 Antigen, 4th Generation Negative Negative 10/06/2023 9:09 EDT [facility] Comment:If acute HIV-1 infec tion is suspected in a high risk patient, submit plasma specimen for HIV-1 RNA quantitation test. Blood VENOUS BLOOD / Unknown 10/05/2023 8:58 EDT 10/05/2023 17:45 EDT Narrative [facility] - 10/06/2023 9:09 EDT Fourth Generation assay performed on the Siemens Centaur XPT. Provider Outr Resulting Lab IMMUNOLOGY A ND SEROLOGY ORDERABLES [facility] [address] [place] [address] from Last 3 Months Care Teams Structural Steel Equipment Erector Relationship Specialty Start Date End Date Gissell Davis NP [address] [place] [phone] [facility] - General 12/06/19
--- OUTSIDE RECORDS SUMMARY | 2023-10-18 01:45 | XMS_ITS | Encounter Summary ---
Author Organization [facility] Address [address] [place] [address] Care Team Providers Care Desk Manager Name Role Phone Mary Carrillo Primary Care Provider Unavailab le Encounter Details Date Type Department Care Team (Latest Contact Info) Description 07/19/2013 15:29 EDT - 07/19/2013 23:59 EDT Hospital Encounter [address] [address] Unknown, Provider, Discharge Disposition: Home or Self Care Social History Tobacco Use Types Packs/Day Years Used Date Smoking Tobacco: Never Assessed Sex and Gender Information Value Date Recorded Sex Assigned at Not on file Gender Identity Not on file Sexual Orientation Not on file documented as of this encounter Discharge Disposition Disposition Code Departure Means Destination Home or Self Senior Living documented in this encounter Plan of Treatment Not on file documented as of this encounter Visit Diagnoses Not on filedocumented in this encounter Care Teams Desk Manager Relationship Specialty Start Date End Date Mary Carrillo PA PCP - General 01/28/11 12/05/19 documented as of this encounter
--- OUTSIDE RECORDS SUMMARY | 2023-10-18 01:45 | XMS_ITS | Encounter Summary ---
Author Organization [facility] Address [address] [place] [address] Care Team Providers Care Supervisor Cd Area Name Role Phone Mary Carrillo Primary Care Provider Unavailab le Encounter Details Date Type Department Care Team (Latest Contact Info) Description 11/14/2013 13:16 EDT - 11/14/2013 23:59 EDT Hospital Encounter [address] [address] Unknown, Provider, Discharge Disposition: Home or Self [...] filedocumented in this encounter Care Teams Supervisor Cd Area Relationship Specialty Start Date End Date Mary Carrillo PA PCP - General 01/28/11 12/05/19 documented as of this encounter
--- OUTSIDE RECORDS SUMMARY | 2023-10-18 01:45 | XMS_ITS | Encounter Summary ---
Author Organization [facility] Address [address] [place] [address] Care Team Providers Care Database Marketing Specialist Name Role Phone Carla Reinoso MD Primary Care Provider [phone] Encounter Details Date Type Department Care Team (Late st Contact Info) Description 07/15/2008 Orders Only [facility] Laboratory Services - [facility] ([facility] [address] [place], [place] [address] Garett Barba, [address] [facility] [address] [place], [place] [phone] Social History Tobacco Use Types Packs/Day Years [...] CHAPMAN, BARBARA A ? Accession #: ? [id number] ? : ? 1970 (Age: 38) ??F [...] Garett Barba DO PATHOLOGY ORDER TRE DAIN [facility] [address] [place] [address] documented in this encounter Visit Diagnoses Not on filedocumented in this encounter Care Teams Database Marketing Specialist Relationship Specialty Start Date End Date Carla Reinoso MD [address] [place], [place] [id number] PCP - General 07/16/08 07/16/08 documented as of this encounter
--- OUTSIDE RECORDS SUMMARY | 2023-10-18 01:45 | XMS_ITS | Clinical Summary ---
Author Organization [facility] Address [facility] [place] [address] Care Team Providers Care Last Picker Name Role Phone Unknown Primary Care Provider [...] 10/22/2023 01/16/2006 Medical Devices Explanted Type Area Life Science Research Assistant Device Identifier Shelf Expiration Date Model / Serial / Lot Stent,Contour -Vl,5ckl65-41 cm ([id number]) - [id number] Implanted:Qty : 1 on 10/16/2018 by Nena Edwards MD at [facility] Explanted:Qty : 1 on 11/16/2018 by Nena Ace MD at [facility] IMPLANTS Left: Ureter [employer] 05/21/2021 [id number] 60 / / [id number] Stent,Contour -Vl,1ezo82-82 cm ([id number]) - [id number] Implanted:Qty : 1 on 10/16/2018 by Nena Edwards MD at [facility] Explanted:Qty : 1 on 11/16/2018 by Nena Ace MD at [facility] IMPLANTS Right: Ureter [employer] 06/20/2021 [id number] 60 / / [id number] Stent,Uret,Un iv,Soft,7fr,2 8cm ([id number]) - [id number] Implanted:Qty : 1 on 11/16/2018 by Nena Ace MD at [facility] Explanted:Qty : 1 on 12/28/2018 by Nena Ace MD IMPLANTS Left: Ureter [employer] 05/15/2021 [id number] 40 / / [id number] Stent,Uret,Un iv,Soft,7fr,2 8cm ([id number]) - [id number] Implanted:Qty : 1 on 11/16/2018 by Nena Ace MD at [facility] Explanted:Qty : 1 on 12/28/2018 by Nena Ace MD IMPLANTS Right: Ureter [employer] 2021 [id number] 40 / / [id number] Stent,Uret,Un iv,Soft,8fr,2 6cm ([id number]) - [id number] Implanted:Qty : 1 on 12/28/2018 by Nena Ace MD at [facility] Explanted:Qty : 1 on 01/24/2019 by Satcey Leblanc MD IMPLANTS Right: Ureter [employer] 08/19/2021 [id number] 30 / / [id number] Stent,Contour ,[id number] ([id number]) - [id number] Implanted:Qty : 1 on 01/24/2019 by Stacey Leblanc MD at [facility] Explanted:Qty : 1 on 02/04/2019 by Stacey Leblanc MD IMPLANTS Right: Ureter [employer] 10/10/2021 [id number] 30 / / [id number] Procedures Procedure Name Priority Date/Time Associated Diagnosis Comments HC VENIPUNCTURE Routine 10/17/2018 5:08 AM EDT HEMOGLOBIN A1C Routine 03/18/2010 9:16 AM EST from Last 3 Months or Most Recently Relevant to Health Maintenance Results * (ABNORMAL) Basic Metabolic Panel (non-fasting) (10/17/2018 5:08 AM EDT) Glucose 110 65 - 199 mg/dL [facility] Comment:Diabetes: >=200 mg/d L plus symptoms Blood Urea Nitrogen 16 8 - 18 mg/dL [facility] Creatinine 1.95(H) 0.70 - 1.20 mg/dL [facility] Comment:result rechecked-ssd Sodium 141 135 - 145 mmol/L [facility] Potassium 3.3(L) 3.5 - 5.0 mmol/L [facility] Comment: Please note: ??Patients with WBC >100,000 may have falsely elevated Potassium levels. ??For accurate Potassium quantification in these patients send serum separator tube (gold top) for subsequent determinations. ??Contact the Clinical Chemistry Laboratory if there are any questions. Chloride 104 98 - 107 mmol/L [facility] Carbon Dioxide 26 22 - 31 mmol/L [facility] Anion Gap 11 5 - 15 mmol/L [facility] Calcium 8.7 8.5 - 10.5 mg/dL [facility] Est Glomerular Filtration Rate 29(L) >=60 mL/min/1. 73 m?? [facility] Comment: The eGFR was calculated using the CKD-EPI equation. As with all creatinine based estimates of kidney function, eGFR values calculated with the CKD-EPI equation are not accurate in patients with acute kidney failure, extremes of body mass or the acutely ill. [email or web address] eGFR 34(L) >=60 mL/min/1. 73 m?? [facility] Comment: The eGFR was calculated using the CKD-EPI equation. As with all creatinine based estimates of kidney function, eGFR values calculated with the CKD-EPI equation are not accurate in patients with acute kidney failure, extremes of body mass or the acutely ill. [email or web address] Blood specimen (specimen) 10/17/2018 5:08 AM EDT 10/17/2018 5:22 AM EDT Narrative Resulting Agency Comment Spec In Lab Nena Ace MD CHEMISTRY ORDERABLES [facility] [place] [address] * HEMOGLOBIN A1C (03/18/2010 9:16 AM EST) Hemoglobin A1c 5.6 4.3 - 6.1 % [facility] Estimated Average Glucose 114 mg/dL [facility] Comment: eAG equivalents for HbA1c percentages: [...] into estimated average glucose values. ??Diabetes Care 2008:31(8):9599-3366. Blood specimen (specimen) 03/18/2010 9:16 AM EST 03/18/2010 9:30 AM EST Ash Pinto MD CHEMISTRY ORDERABLES [facility] from Last 3 Months or Most Recently Relevant to Health Maintenance Advance Directives Documents on File Type Date Recorded Patient Artificial Candy Maker Expl anation Advance Directives and Livin g [...] capacity to make decision: Yes Care Teams Last Picker Relationship Specialty Start Date End Date Unknown None PCP - General 11/13/21
--- OUTSIDE RECORDS SUMMARY | 2023-10-18 01:45 | XMS_ITS | Encounter Summary ---
Author Organization [facility] Address [address] [place] [address] Care Team Providers Care Corporate Sales Manager Name Role Phone Gissell Davis NP Primary Care Provider [phone] Encounter Details Date Type Department Care Team (Late st Contact Info) Description 10/05/2023 Lab Requisition [facility] Pathology & Laboratory Medicine - [address] [address] Outr Resulting Lab, Provider Social History Tobacco [...] 8:58 EDT HEPATITIS B PROFILE Routine 10/05/2023 8:58 EDT documented in this encounter Results * HEPATITIS C AB W REFLEX TO HCV RNA BY PCR (10/05/2023 8:58 EDT) Hep C Antibody Negative Negative 10/06/2023 9:35 EDT [facility] Blood VENOUS BLOOD / Unknown 10/05/2023 8:58 EDT 10/05/2023 17:45 EDT Provider Outr Resulting Lab CHEMISTRY & BLOOD GAS ORDERABLES Performing Organization Address [facility] Co de Phone Number [facility] [address] [place], [place] [address] * HEPATITIS B PROFILE (10/05/2023 8:58 EDT) Hep B Surface Ag Negative Negative 10/06/19 24 9:53 EDT [facility] Hep B Surface Ab, Quantitative <3.1 See Note mIU/mL 10/06/2023 9:53 EDT [facility] Comment: Reference Range for Hep B Surface Ab, Quant: Positive: >= 10.0 mIU/mL Negative: ??< 10.0 mIU/mL Patient is presumed to not be immune to infection with Hepatitis B Virus. Hep B Surface Ab, Qualitative Negative See Note 10/06/2023 9:53 EDT [facility] Comment: Reference Range for Hep B Surface Ab, Qual: Unvaccinated: ??Negative Vaccinated: ??Positive Hepatitis B Core Ab, Total Negative Negative 10/06/2023 9:53 EDT [facility] Blood VENOUS BLOOD / Unknown 10/05/2023 8:58 EDT 10/05/2023 17:45 EDT Provider Outr Resulting Lab CHEMISTRY & BLOOD GAS ORDERABLES Performing Organization Address [facility] Co de Phone Number [facility] [address] [place], [place] [address] documented in this encounter Visit Diagnoses Not on filedocumented in this encounter Care Teams Corporate Sales Manager Relationship Specialty Start Date End Date Gissell Davis NP [address] [place] [phone] PCP - General 12/06/19 documented as of this encounter
--- OUTSIDE RECORDS SUMMARY | 2023-10-18 01:45 | XMS_ITS | Encounter Summary ---
Author Organization [facility] Address [address] [place] [address] Care Team Providers Care Frozen Pie Maker Name Role Phone Mary Carrillo Primary Care Provider Unavailab le Encounter Details Date Type Department Care Team (Late st Contact Info) Description 12/28/2010 Results Only [facility] [phone] Daniel Conti MD [address] [place] [address] Social History Tobacco Use Types Packs/Day Years [...] ? BARBARA CHAPMAN ? Accession #: ? [id number] ? : ? 1970 (Age: 40) ??F [...] MD PATHOLOGY ORDERABLES [facility] [address] [place] [address] * SURGICAL PATHOLOGY (12/28/2010 0:00 EST) Pathology Report: SURGICAL PATHOLOGY REPORT Reports generated via electronic interface contain original data; however they are lacking the format of the original report. Caution should be taken when reading/interpreting unformatted reports. Name: ? BARBARA CHAPMAN ? Accession #: ? [id number] ? : ? 1970 (Age: 40) ??F [...] reviewed at the intradepartmental consultation conference. (Dr. Carcamo)/[facility] Document reviewed and electronically signed by: Symone [...] Conti MD PATHOLOGY ORDERABLES Performing Organization Address City/State/[facility] Co de Phone Number [facility] [address] [place] [address] documented in this encounter Visit Diagnoses Not on filedocumented in this encounter Care Teams Frozen Pie Maker Relationship Specialty Start Date End Date Mary Carrillo PA PCP - General 01/28/10 01/02/11 documented as of this encounter
--- OUTSIDE RECORDS SUMMARY | 2023-10-18 01:45 | XMS_ITS | Encounter Summary ---
Author Organization [facility] Address [facility] [place] [address] Care Team Providers Care Mechanic Name Role Phone Unknown Primary Care Provider Unavailabl e Encounter Details Date Type Department Care Team (Latest Contact Info) Description 12/01/2021 9:58 PM EDT - 12/01/2021 11:59 PM EDT [place] [phone] Discharge Disposition: Home Social History Tobacco Use [...] Report (12/01/2021 12:30 PM EDT) Final Diagnosis [id number] ? Location: [facility] The signing pathologist has [...] Lakisha Verified: ??12/10/2021 10:54 ??Pathologist Performed at: ??-[facility] Dept. of Pathology, [place], [place] ADDITIONAL STUDIES Immunohistochemistry Studies: Formalin-fixed, paraffin-embedded [...] labeled C1. ??det/jnr 12/10/2021 10:54 AM EDT [facility] GI Biopsy 12/01/2021 12:3 0 PM EDT 12/01/2021 12:30 PM EDT GI Biopsy 12/01/2021 12:3 0 PM EDT 12/01/2021 12:30 PM EDT GI Biopsy 12/01/2021 12:3 0 PM EDT 12/01/2021 12:30 PM EDT Ward Rosa MD PATHOLOGY/CYTO LOGY ORDERABLES Performing Organization Address City/State/[facility] Co de Phone Number [facility] [place] [address] documented in this encounter Visit Diagnoses Not on filedocumented in this encounter Care Teams Mechanic Relationship Specialty Start Date End Date Unknown None PCP - General 11/13/21 documented as of this encounter
--- OUTSIDE RECORDS SUMMARY | 2023-10-18 01:45 | XMS_ITS | Encounter Summary ---
Author Organization [place] [address] Care Team Providers Care Wad Compressor Operator Adjuster Name Role Phone Unknown Primary Care Provider Unavailabl e Encounter Details Date Type Department Care Team (Late st Contact Info) Description 02/18/2022 Telephone [place] [address] Jodi Glez Social History Tobacco Use Types [...] Glez - 02/18/2022 1:42 PM EST Called [facility] as gastro received a referral/order? For [...] on filedocumented in this encounter Care Teams Wad Compressor Operator Adjuster Relationship Specialty Start Date End Date Unknown None PCP - General 11/13/21 documented as of this encounter
--- OUTSIDE RECORDS SUMMARY | 2023-10-18 01:45 | XMS_ITS | Encounter Summary ---
[place] [address] Care Team Providers Care Solo Truck Driver Name Role Phone Gissell Davis APRN Primary Care Provider Reason for Visit * Reason Onset Date Comments Questions 04/28/2020 Encounter Details Date Type Department Care Team (Late st Contact Info) Description 04/28/2020 Telephone [place] [phone] Gonzalo Leon Questions Social History Tobacco Use [...] to her referring providor, Dr. Rivas at [place], [place] PH: [phone] FAX: [phone] Plan: forward to clinical team for resolution Patient/Responsible green party voices an understanding of advice? yes Patient/Responsible green party intends to comply with action/disposition: yes documented in this encounter Plan of Treatment Not on file documented as of this encounter Visit Diagnoses Not on filedocumented in this encounter Care Teams Solo Truck Driver Relationship Specialty Start Date End Date Gissell Davis, KENYATTA [address] [facility] [address] [place] [address] PCP - General Family Medicine 08/21/18 11/12/21 documented as of this encounter
--- OUTSIDE RECORDS SUMMARY | 2023-10-18 01:45 | XMS_ITS | Encounter Summary ---
Author Organization [facility] Address [address] [place] [address] Care Team Providers Care Crowning Inspector Name Role Phone Unknown, Provider Primary Care Provider [phone] Carla Lieberman MD Primary Care Provider [phone] Encounter Details Date Type Department Care Team (Late st Contact Info) Description 05/04/2006 Results Only [facility] [address] [place] [address] Dean Carrillo PA Social History Tobacco Use [...] ? BARBARA CHAPMAN ? Accession #: ? [id number] : ? 1970 (Age: 35) ??F ?Collect Date: ? 05/04/2006 Location: ? [facility] ? Receive Date: ? 05/08/2006 Provider: ?DEAN ELE Copy to: ? Specimen/Source: ?ThinPrep Pap Test, Cervix/Endocervix, processed on [employer] ThinPrep Imaging System, with manual evaluation Last [...] Dean LEE PATHOLOGY ORDERABLES Performing Organization Address City/State/[facility] Co de Phone Number [facility] [address] [place] [address] documented in this encounter Visit Diagnoses Not on filedocumented in this encounter Care Teams Crowning Inspector Relationship Specialty Start Date End Date Unknown, Provider, PCP - General 07/17/08 01/27/10 Carla Lieberman MD [address] [place] [id number] PCP - General 07/16/08 07/16/08 documented as of this encounter
--- OUTSIDE RECORDS SUMMARY | 2023-10-18 01:45 | XMS_ITS | Encounter Summary ---
Author Organization [facility] Address [address] [place] [address] Care Team Providers Care Retail Assistant Manager Name Role Phone Gissell Davis NP Primary Care Provider Encounter Details Date Type Department Care Team (Late st Contact Info) Description 10/05/2023 Lab Requisition [facility] Pathology & Laboratory Medicine - [address] [address] Outr Resulting Lab, Provider Social History Tobacco [...] Procedure Name Priority Date/Time Associated Diagnosis Comments HIV 1/2 ANTIGEN AND ANTIBODY, 4TH GENERATION Routine 10/05/2023 8:58 EDT documented in this encounter Results * HIV 1/2 ANTIGEN AND ANTIBODY, 4TH GENERATION (10/05/2023 8:58 EDT) HIV 1 and 2 Antibody/p24 Antigen, 4th Generation Negative Negative 10/06/2023 9:09 EDT [facility] Comment:If acute HIV-1 infec tion is suspected in a high risk patient, submit plasma specimen for HIV-1 RNA quantitation test. Blood VENOUS BLOOD / Unknown 10/05/2023 8:58 EDT 10/05/2023 17:45 EDT Narrative [facility] - 10/06/2023 9:09 EDT Fourth Generation assay performed on the Siemens Centaur XPT. Provider Outr Resulting Lab IMMUNOLOGY A ND SEROLOGY ORDERABLES [facility] [address] [place] [address] documented in this encounter Visit Diagnoses Not on filedocumented in this encounter Care Teams Retail Assistant Manager Relationship Specialty Start Date End Date Gissell Davis NP [address] [place] [phone] PCP - General 12/06/19 documented as of this encounter
--- OUTSIDE RECORDS SUMMARY | 2023-10-18 01:46 | XMS_ITS | Encounter Summary ---
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
--- OUTSIDE RECORDS SUMMARY | 2023-10-18 01:46 | XMS_ITS | Encounter Summary ---
[place] [address] Care Team Providers Care Proof Coins Inspector Name Role Phone Gissell Davis APRN Primary Care Provider Encounter Details Date Type Department Care Team (Late st Contact Info) Description 12/26/2018 [place] [phone] Gonzalo Goodrich MD [facility] UROLOGY DEPT [place] [id number] Social History Tobacco Use Types Packs/Day Years [...] [place] (probable contaminant) in Barbara's UCx from [facility]. Will treat with Bactrim BID x 5 days in preparation for surgery. Gonzalo Goodrich MD, MPH Urology, PGY-3 Consult Pager #[phone] 12/26/2018 documented in this encounter Plan of Treatment Not on file documented as of this encounter Visit Diagnoses Not on filedocumented in this encounter Care Teams Proof Coins Inspector Relationship Specialty Start Date End Date Gissell Davis APRN [address] [place] [address] PCP - General Family Medicine 08/21/18 11/12/21 documented as of this encounter
--- OUTSIDE RECORDS SUMMARY | 2023-10-18 01:46 | XMS_ITS | Encounter Summary ---
Author Organization [facility] [place] [address] Care Team Providers Care Emergency Room Physician Assistant Name Role Phone Susan Gissell Katherine YOU Primary Care Provider [phone] Encounter Details Date Type Department Care Team (Late st Contact Info) Description 10/24/2018 Orders [place] [address] Nena Ace MD [facility] [place] [address] Other symptoms and signs involving the genitourinary [...] Ace MD MICROBIOLOGY [place] [address] documented in this encounter Visit Diagnoses Diagnosis Other symptoms and signs involving the genitourinary system documented in this encounter Care Teams Emergency Room Physician Assistant Relationship Specialty Start Date End Date Gissell Dvais APRN [address] [place] [address] PCP - General Family Medicine 08/21/18 11/12/21 documented as of this encounter
--- OUTSIDE RECORDS SUMMARY | 2023-10-18 01:46 | XMS_ITS | Encounter Summary ---
[place] [address] Care Team Providers Care Referral Management Liaison Name Role Phone Susan Gissell Katherine YOU Primary Care Provider [phone] Encounter Details Date Type Department Care Team (Latest Contact Info) Description 11/16/2018 7:40 AM EDT Laboratory Appointment Lab [address] [place] [phone] Other symptoms and signs involving the genitourinary [...] Culture No growth (Less than 1,000 cfu/ml). [facility] Urine specimen obtained by clean catch procedure (specimen) 11/16/2018 7:43 AM EDT 11/16/2018 8:33 AM EDT Narrative Resulting Agency Comment Spec In Lab Nena Ace MD MICROBIOLOGY - GENER AL ORDERABLES [facility] [place] [address] documented in this encounter Visit Diagnoses Diagnosis Other symptoms and signs involving the genitourinary system documented in this encounter Care Teams Referral Management Liaison Relationship Specialty Start Date End Date Gissell Davis APRN [address] [place] [address] PCP - General Family Medicine 08/21/18 11/12/21 documented as of this encounter
--- OUTSIDE RECORDS SUMMARY | 2023-10-18 01:46 | XMS_ITS | Encounter Summary ---
[place] [address] Care Team Providers Care Glassware Selector Name Role Phone Gissell Davis APRN Primary Care Provider Encounter Details Date Type Department Care Team (Late st Contact Info) Description 07/26/2019 Ancillary Procedure [place] [address] Gissell Davis APRN [address] [place] [address] Social History Tobacco Use Types Packs/Day Years [...] DX Knee (07/26/2019 12:00 AM EDT) Narrative [facility] - 03/17/2020 3:59 PM EST This exam is auto-finalizing. It's purpose is for storage only. Gissell Davis APRN [facility] ORD ERABLES [place], [place] documented in this encounter Visit Diagnoses Not on filedocumented in this encounter Care Teams Glassware Selector Relationship Specialty Start Date End Date Gissell Davis APRN [address] [place] [address] PCP - General Family Medicine 08/21/18 11/12/21 documented as of this encounter
--- OUTSIDE RECORDS SUMMARY | 2023-10-18 01:46 | XMS_ITS | Encounter Summary ---
Author Organization [facility] [place] [address] Care Team Providers Care Machine Installer Name Role Phone Gissell Davis APRN Primary Care Provider Encounter Details Date Type Department Care Team (Late st Contact Info) Description 02/04/2019 1:00 PM EST Office [place] [address] Stacey Leblanc MD [facility] [place] [address] Bilateral nephrolithiasis Social History Tobacco Use Types [...] and cola. You do not need to hrfsus48 ounces of water today. Urination: You will likely have a small amount of blood in your urine for the next several days. This is normal; however, if you are passing large amounts of blood clots or are unable to void please call our office at [phone] before 5PM or [phone] after hours. Please call if: * you have copious blood in your urine * fevers greater than 101.3 F * you are unable to void The number for questions is [phone] before 5 PM weekdays and [phone] after 5 PM and weekends. Follow-up: 6 [...] nephrolithiasis documented in this encounter Care Teams Machine Installer Relationship Specialty Start Date End Date Gissell Davis APRN [address] [place] [address] PCP - General Family Medicine 08/21/18 11/12/21 documented as of this encounter
--- OUTSIDE RECORDS SUMMARY | 2023-10-18 01:46 | XMS_ITS | Encounter Summary ---
[place] [address] Care Team Providers Care Single Pass Soil Stabilizer Operator Name Role Phone Gissell Davis APRN Primary Care Provider [phone] Encounter Details Date Type Department Care Team (Late st Contact Info) Description 12/24/2018 Telephone [place] [address] Gonzalo Goodrich MD [facility] UROLOGY DEPT [place] [id number] Social History Tobacco Use Types Packs/Day Years [...] EST Patient dropped of a UCx to [facility] today. Will call tomorrow to obtain the results. Gonzalo Goodrich MD, MPH Urology, PGY-3 Consult Pager #[phone] 12/24/2018 documented in this encounter Plan of Treatment Not on file documented as of this encounter Visit Diagnoses Not on filedocumented in this encounter Care Teams Single Pass Soil Stabilizer Operator Relationship Specialty Start Date End Date Gissell Davis APRN [address] [place] [address] PCP - General Family Medicine 08/21/18 11/12/21 documented as of this encounter
--- OUTSIDE RECORDS SUMMARY | 2023-10-18 01:46 | XMS_ITS | Encounter Summary ---
Author Organization [facility] [place] [address] Care Team Providers Care Railroad Wheels And Axles Inspector Name Role Phone Gissell Davis APRN Primary Care Provider [phone] Encounter Details Date Type Department Care Team (Late st Contact Info) Description 04/02/2019 [place] [id number] Stacey Leblanc MD [facility] [place] [address] Social History Tobacco Use Types Packs/Day Years [...] on filedocumented in this encounter Care Teams Railroad Wheels And Axles Inspector Relationship Specialty Start Date End Date Gissell Davis APRN [address] [place] [address] PCP - General Family Medicine 08/21/18 11/12/21 documented as of this encounter
--- OUTSIDE RECORDS SUMMARY | 2023-10-18 01:46 | XMS_ITS | Encounter Summary ---
Author Organization [facility] Address [facility] [place] [address] Care Team Providers Care Marketing Analytics Analyst Name Role Phone Gissell Daivs APRN Primary Care Provider Encounter Details Date Type Department Care Team (Late st Contact Info) Description 01/24/2019 7:06 AM EST - 01/24/2019 10:59 AM EST Hospital Encounter [place] [address] Stacey Leblanc MD [facility] [place] [address] Discharge Disposition: Home Social History Tobacco Use [...] closest emergency room or call the hospital asphalt roller operator at [phone] and ask for physician non licensed nuclear equipment operator covering for your physician. Questions or problems after 5pm or on a weekend: Call the [facility] asphalt roller operator at and ask for the physician non licensed nuclear equipment operator covering for your doctor. * Patient Instructions* [...] stops draining please call our office at [phone] before 5PM or [phone] after hours. Call Doctor for: Please call if you have copious blood in your urine, severe back or side pain, pain not controlled by pain medications, persistent nausea and vomiting, or for any fevers greater [id number] F. The number for questions is [phone] before 5 PM weekdays and [phone] after 5 PM and weekends. Pain Medication: [...] 7.5) performed by Nena Ace MD at [facility] OR ??? PRO CYSTO/URETERO/PYELOSCOPY W/LITHOTRIPSY Bilateral 12/28/2018 ?? CYSTOURETEROSCOPY, LITHOTRIPSY (WRVU 7.5) performed by Nena Ace MD at [facility] OR ??? PRO CYSTO/URETERO/PYELOSCOPY, CALCULUS TX Bilateral 11/16/2018 ?? CYSTOURETHROSCOPY WITH UTETEROSCOPY, W\REMOVAL, MANIPULATION OF CALCULUS (WRVU 6.75) performed by Nena Ace MD at [facility] OR ??? PRO CYSTOSCOPY, INSERT URETERAL STENT Bilateral 10/16/2018 ?? CYSTO, STENT PLACEMENT (WRVU 2.82) performed by Agustin Crespo MD at [facility] OR ??? PRO CYSTOSCOPY, INSERT URETERAL STENT Bilateral 11/16/2018 ?? CYSTO, STENT PLACEMENT (WRVU 2.82) performed by Nena Ace MD at [facility] OR ??? PRO CYSTOURETHROSCOPY, URETER CATHETER Bilateral 10/16/2018 ?? CYSTO, RETROGRADE, URETEROPYELOGRAPHY (WRVU 2.37) performed by Agustin Crespo MD at [facility] OR ? No current facility-administered medications on [...] 7.5) performed by Nena Ace MD at [facility] OR ??? PRO CYSTO/URETERO/PYELOSCOPY W/LITHOTRIPSY Bilateral 12/28/2018 ?? CYSTOURETEROSCOPY, LITHOTRIPSY (WRVU 7.5) performed by Nena Ace MD at [facility] OR ??? PRO CYSTO/URETERO/PYELOSCOPY, CALCULUS TX Bilateral 11/16/2018 ?? CYSTOURETHROSCOPY WITH UTETEROSCOPY, W\REMOVAL, MANIPULATION OF CALCULUS (WRVU 6.75) performed by Nena Ace MD at [facility] OR ??? PRO CYSTOSCOPY, INSERT URETERAL STENT Bilateral 10/16/2018 ?? CYSTO, STENT PLACEMENT (WRVU 2.82) performed by Agustin Crespo MD at [facility] OR ??? PRO CYSTOSCOPY, INSERT URETERAL STENT Bilateral 11/16/2018 ?? CYSTO, STENT PLACEMENT (WRVU 2.82) performed by Nena Ace MD at [facility] MAIN OR ??? PRO CYSTOURETHROSCOPY, URETER CATHETER Bilateral 10/16/2018 ?? CYSTO, RETROGRADE, URETEROPYELOGRAPHY (WRVU 2.37) performed by Agustin Crespo MD at [facility] MAIN OR ? No current facility-administered [...] Leblanc MD - 01/24/2019 10:13 AM EST [facility] Operative Note Patient Name: Barbara Chapman : [id number] MR#: [id number] Case Date: 01/24/2019 Surgeon: Surgeon(s) and Role: [...] procedure. Preoperative antibiotics were administered. The 22 korean rigid cystoscope was inserted to the bladder. [...] pollack catheter was removed and a 6 korean by 26 centimeter double J stent was [...] Operative Note Patient Name: Barbara Chapman : [id number] MR#: [id number] Case Date: 01/24/2019 Surgeon: Surgeon(s) and Role: [...] OR USE Routine 01/24/2019 10:18 AM EST [facility] KIDNEY STONE ANALYSIS Routine 01/24/2019 9:57 AM EST Cystourethroscopy, Ureter Catheter (05521) Yes 01/24/2019 8:34 AM EST Ureteral obstruction MODIFIER HOLMIUM LASER Yes 01/24/2019 8:34 AM EST Ureteral obstruction Cysto/Uretero/Pyelo scopy, Calculus Tx (54480) Yes 01/24/2019 8:34 AM EST Ureteral obstruction Cysto/Uretero/Pyelo scopy W/Lithotripsy (15005) Yes 01/24/2019 8:34 AM EST Ureteral obstruction Cystoscopy, Insert Ureteral Stent (75880) Yes 01/24/2019 8:34 AM EST Ureteral obstruction documented in this encounter Results * XR Fluoro No Rad <1Hr - OR Use (01/24/2019 10:18 AM EST) Narrative [facility] - 01/24/2019 10:19 AM EST This exam is auto-finalizing. No interpretation was done. Stacey Leblanc MD IMG FLUORO TRACEY WHITE Performing Organization Address [facility] Co de Phone Number [place], [place] * Kidney Stone Analysis (01/24/2019 9:57 AM EST) Kidney Stone Analysis (MAY) Test ?Result ? Flag ??Unit ??RefValue Kidney Stone Analysis ??Source: ? Right Ureter ??Interpretation ?SEE COMMENTS ?80% Calcium oxalate monohydrate ?20% Uric acid ?Test Performed by: ?[facility] ?[address] [place] [address] ?Communications Representative: Mario River M.D. Ph.D.; CLIA# [id number] [facility] Calculus specimen (specimen) 01/24/2019 9:57 AM EST 01/24/2019 1:41 PM EST Narrative Resulting Agency Comment Spec In Lab Stacey Leblanc MD LAB SEND OUT OR DERABLES Performing Organization Address [facility] Co de Phone Number [facility] [place] [address] documented in this encounter Visit Diagnoses Not [...] mL Mini-Bag Plus (COMPLETED) 2 g, Intravenous, REACTOR SERVICE OPERATOR TO O.R., 1 dose, On Christen [...] cysto) documented in this encounter Care Teams Marketing Analytics Analyst Relationship Specialty Start Date End Date Gissell Davis, KENYATTA [address] [place] [address] PCP - General Family Medicine 08/21/18 11/12/21 documented as of this encounter
--- OUTSIDE RECORDS SUMMARY | 2023-10-18 01:46 | XMS_ITS | Encounter Summary ---
Author Organization [facility] Address [facility] [place] [address] Care Team Providers Care Manufacturing Support Engineer Name Role Phone Gissell Davis APRN Primary Care Provider Encounter Details Date Type Department Care Team (Late st Contact Info) Description 12/28/2018 9:58 AM EST - 12/28/2018 12:56 PM EST Surgery [place] [phone] Nena Ace MD [facility] [place] [address] CYSTOURETEROSCOPY, LITHOTRIPSY (WRVU 7.5) Social History Tobacco [...] performed by Nena Ace MD at [facility] MAIN OR ??? PRO CYSTO/URETERO/PYELOSCOPY, CALCULUS TX Bilateral 11/16/2018 CYSTOURETHROSCOPY WITH UTETEROSCOPY, W\REMOVAL, MANIPULATION OF CALCULUS (WRVU 6.75) performed by Nena Ace MD at [facility] MAIN OR ??? PRO CYSTOSCOPY, INSERT URETERAL STENT Bilateral 10/16/2018 CYSTO, STENT PLACEMENT (WRVU 2.82) performed by Agustin Crespo MD at [facility] OR ??? PRO CYSTOSCOPY, INSERT URETERAL STENT Bilateral 11/16/2018 CYSTO, STENT PLACEMENT (WRVU 2.82) performed by Nena Ace MD at [facility] OR ??? PRO CYSTOURETHROSCOPY, URETER CATHETER Bilateral 10/16/2018 CYSTO, RETROGRADE, URETEROPYELOGRAPHY (WRVU 2.37) performed by Agustin Crespo MD at [facility] OR No current facility-administered medications [...] Note ?? Patient Name: Barbara Chapman : [id number] MR#: [id number] ?? Case Date: 12/28/2018 ?? Surgeon: Surgeon(s) [...] then inserted the flexible ureteroscopeand used the [employer] basket to extract all of the ureteral [...] Operative Note Patient Name: Barbara Chapman : [id number] MR#: [id number] Case Date: 12/28/2018 Surgeon: Surgeon(s) and Role: [...] Routine 12/28/2018 11:3 2 AM EST [facility] KIDNEY STONE ANALYSIS Routine 12/28/2018 11:21 AM EST HC URINE CULTURE Routine 12/28/2018 11:2 1 AM EST MODIFIER HOLMIUM LASER 12/28/2018 10:45 AM EST STONE Cysto/Uretero/Pyelos copy W/Lithotripsy (53445) 12/28/2018 10:45 AM EST STONE POCT GLUCOSE Routine 12/28/2018 9:40 AM EST documented in this encounter Results * SCAN DOC: IMPLANTABLE DEVICES (12/31/2018 12:00 AM EST) Narrative 12/31/2018 12:00 AM EST Ordered by an unspecified provider. Scanning Provider MEDIA MGR SCAN EXT O RDR/RSLT * POCT Glucose (12/28/2018 1:29 PM EST) Glucose, POC 141 65 - 199 mg/dL [facility] Comment: Supplemental ranges: <140 mg/dL before meals <180 mg/dL all other times of the day Blood specimen (specimen) 12/28/2018 1:29 PM EST 12/28/2018 1:29 PM EST Nena Ace MD POINT OF CARE TEST O RDERABLES Performing Organization Address [facility] de Phone Number [facility] [place] [address] * XR Fluoro No Rad <1Hr - OR Use (12/28/2018 1:14 PM EST) Narrative RAD - 12/28/2018 1:14 PM EST This exam is auto-finalizing. No interpretation was done. Nena Ace MD IMG FLUORO ORDERABLE S Performing Organization Address [facility] de Phone Number [place], [place] * Urine culture Urine (12/28/2018 11:32 AM EST) Urine Culture No growth (Less than 100 cfu/ml). [facility] Urine specimen (specimen) 12/28/2018 11:32 AM EST 12/28/2018 12:14 PM EST Comment:RIGHT RENAL PELVIC U RINE CULTURE Narrative Resulting Agency Comment Spec In Lab Nena Ace MD MICROBIOLOGY - GENER AL ORDERABLES Performing Organization Address [facility] de Phone Number [facility] [place] [address] * Kidney Stone Analysis (12/28/2018 11:21 AM EST) Kidney Stone Analysis (MAY) Test ?Result ? Flag ??Unit ??RefValue Kidney Stone Analysis ??Source: ? Right Ureter ??Interpretation ?SEE COMMENTS ?90% Calcium oxalate monohydrate ?10% Calcium oxalate dihydrate ?Test Performed by: ?[facility] ?[address] [place] [address] ?Clinical Biostatistician: Mario River M.D. Ph.D.; CLIA# [id number] [facility] Calculus specimen (specimen) 12/28/2018 11:21 AM EST 12/28/2018 1:36 PM EST Narrative Resulting Agency Comment Spec In Lab Nena Ace MD LAB SEND OUT ORDERAB LES Performing Organization Address [facility] Co de Phone Number [facility] [place] [address] * Urine culture Cystoscopic Urine (12/28/2018 11:21 AM EST) Urine Culture No growth (Less than 100 cfu/ml). [facility] Urine specimen (specimen) 12/28/2018 11:21 AM EST 12/28/2018 1:58 PM EST Comment:BLADDER URINE Narrative Resulting Agency Comment Spec In Lab Nena Ace MD MICROBIOLOGY - GENER AL ORDERABLES Performing Organization Address [facility] Co de Phone Number [facility] [place] [address] * POCT Glucose (12/28/2018 9:40 AM EST) Glucose, POC 126 65 - 199 mg/dL [facility] Comment: Supplemental ranges: <140 mg/dL before meals <180 mg/dL all other times of the day Blood specimen (specimen) 12/28/2018 9:40 AM EST 12/28/2018 9:40 AM EST Nena Ace MD POINT OF CARE TEST O RDERABLES [facility] [place] [address] documented in this encounter Visit Diagnoses Not [...] mL Mini-Bag Plus (COMPLETED) 2 g, Intravenous, FOSTER CARE SOCIAL WORKER TO O.R., 1 dose, On Mon12/28/18 [...] Routine documented in this encounter Care Teams Manufacturing Support Engineer Relationship Specialty Start Date End Date Gissell Davis APRN [address] [place] [address] PCP - General Family Medicine 08/21/18 11/12/21 documented as of this encounter
--- OUTSIDE RECORDS SUMMARY | 2023-10-18 01:46 | XMS_ITS | Encounter Summary ---
Author Organization [facility] Address [facility] [place] [address] Care Team Providers Care Counter Maker Name Role Phone Gissell Davis APRN Primary Care Provider [phone] Encounter Details Date Type Department Care Team (Late st Contact Info) Description 11/16/2018 9:58 AM EDT - 11/16/2018 1:10 PM EDT Surgery [place] [phone] Nena Ace MD [facility] [place] [address] CYSTOURETEROSCOPY, LITHOTRIPSY (WRVU 7.5) Social History Tobacco [...] Program 8a-5pm Monday-Monday. All other times, call [phone] and ask for the anesthesiologist home improvement contractor. POST ANESTHESIA INSTRUCTIONS Go home, rest, use [...] pain medications The number for questions is [phone] before 5 PM weekdays and [phone] after 5 PM and weekends. Activity level: [...] stone in about a month. Please call [phone] if you do not hear from the [...] since her last admission. Urine cx from [facility] on 11/08/18 is mixed mucosal [...] Operative Note Patient Name: Barbara Chapman : [id number] MR#: [id number] Case Date: 11/16/2018 Surgeon: Surgeon(s) and Role: [...] 3 hr in lithotomy position. A 7fr [id number] stent was then placed over a wire. [...] Operative Note Patient Name: Barbara Chapman : [id number] MR#: [id number] Case Date: 11/16/2018 Surgeon: Surgeon(s) and Role: [...] USE Routine 11/16/2018 1:[address] [facility] KIDNEY STONE ANALYSIS Routine 11/16/2018 12:40 PM EDT HC URINE CULTURE Routine 11/16/2018 10:1 0 AM EDT MODIFIER HOLMIUM LASER Yes 11/16/2018 9:41 AM EDT URETERAL OBSTRUCTION Cysto/Uretero/Pyelos copy, Calculus Tx (03560) Yes 11/16/2018 9:41 AM EDT URETERAL OBSTRUCTION Cysto/Uretero/Pyelos copy W/Lithotripsy (33725) Yes 11/16/2018 9:41 AM EDT URETERAL OBSTRUCTION Cystoscopy, Insert Ureteral Stent (54699) Yes 11/16/2018 9:41 AM EDT URETERAL OBSTRUCTION POCT GLUCOSE Routine 11/16/2018 9:00 AM EDT IMPLANTABLE DEVICES SCAN 11/16/2018 12:00 AM EDT documented in this encounter Results * POCT Glucose (11/16/2018 1:13 PM EDT) Glucose, POC 145 65 - 199 mg/dL [facility] Comment: Supplemental ranges: <140 mg/dL before meals <180 mg/dL all other times of the day Blood specimen (specimen) 11/16/2018 1:13 PM EDT 11/16/2018 1:13 PM EDT Nena Ace MD POINT OF CARE TEST O RDERABLES [facility] [place] [address] * XR Fluoro No Rad <1Hr - OR Use (11/16/2018 1:06 PM EDT) Narrative DH RAD - 11/16/2018 1:07 PM EDT This exam is auto-finalizing. No interpretation was done. Nena Ace MD IMG FLUORO ORDERABLE S [facility] [place], [place] * Kidney Stone Analysis (11/16/2018 12:40 PM EDT) Kidney Stone Analysis (MAY) Test ?Result ? Flag ??Unit ??RefValue Kidney Stone Analysis ??Source: ? Ureter ??Interpretation ?SEE COMMENTS ?90% Calcium oxalate monohydrate ?10% Calcium phosphate (apatite) ?Test Performed by: ?[facility] ?[address] [place] [address] ?Audio Visual Tech: Mario River M.D. Ph.D.; CLIA# [id number] [facility] Calculus specimen (specimen) 11/16/2018 12:40 PM EDT 11/16/2018 3:42 PM EDT Narrative Resulting Agency Comment Spec In Lab Nena Ace MD LAB SEND OUT ORDERAB LES Performing Organization Address [facility] Co de Phone Number [facility] [place] [address] * Urine culture Cystoscopic Urine (11/16/2018 10:10 AM EDT) Urine Culture No growth (Less than 100 cfu/ml). [facility] Urine specimen (specimen) 11/16/2018 10:10 AM EDT 11/16/2018 2:25 PM EDT Narrative Resulting Agency Comment Spec In Lab Nena Ace MD MICROBIOLOGY - GENER AL ORDERABLES Performing Organization Address [facility]/ZIP Co de Phone Number [facility] [place] [address] * POCT Glucose (11/16/2018 9:00 AM EDT) Glucose, POC 135 65 - 199 mg/dL [facility] Comment: Supplemental ranges: <140 mg/dL before meals <180 mg/dL all other times of the day Blood specimen (specimen) 11/16/2018 9:00 AM EDT 11/16/2018 9:00 AM EDT Nena Ace MD POINT OF CARE TEST O RDERABLES Performing Organization Address [facility] Co de Phone Number [facility] [place] [address] * SCAN DOC: IMPLANTABLE DEVICES (11/16/2018 12:00 [...] 5% 200 mL (COMPLETED) 400 mg, Intravenous, AIR INTERCEPT CONTROLLER TO O.R., 1 dose, On Mon11/16/18 at [...] Routine documented in this encounter Care Teams Counter Maker Relationship Specialty Start Date End Date Gissell Davis, KENYATTA [address] [facility] [address] [place] [address] PCP - General Family Medicine 08/21/18 11/12/21 documented as of this encounter
--- OUTSIDE RECORDS SUMMARY | 2023-10-18 01:46 | XMS_ITS | Encounter Summary ---
Author Organization [facility] Address [facility] [place] [address] Care Team Providers Care Bilingual Medical Assistant Name Role Phone Gissell Davis APRN Primary Care Provider Reason for Visit * Auth/Cert Specialty Diagnoses / Procedures Referred By Darwin t Referred To Contact Diagnoses Bilateral nephrolithiasis BIlateral obstructive nephrolihiasis with hydro / renal failure Referral ID Status Reason Start Date Expiration Date Visits Re quested Visits Authorized [id number] 1 1 Encounter Details Date Type Department Care Team (Latest Contact Info) Description 10/15/2018 2:53 PM EDT - 10/17/2018 10:04 AM EDT Hospital Encounter [address] [place] [id number] Nena Ace MD [facility] [place] [address] Discharge Disposition: Home Social History Tobacco Use [...] Barbara Chapman Patient Age: 48 y.o. Language: Malay Race: White Ethnicity: Not nor Admit date: [...] joint infection and revision who presented to [facility] with flank pain andfound to have bilateral obstructive nephrolithiasis and acute kidney injury. ?? Ms. Chapman states that she developed flank pain about 2 days ago that radiated to her groin. She denied any fevers or chills. She has no history of nephrolithiasis. She denies any irritative voiding/LUTS or hematuria. CT imaging at [facility] showed bilateral ureteral stones. She was afebrile and hemodynamically stable upon admission. Her WBC was 11 and her creatinine was 3.64. UA was negative for nitrites, positive for trace leukocyte esterase and 5-10 WBC with many squams. This did not reflex for culture. Given her RENAE and bilateral stone burden, she was transferred to [facility] for further urologic care. ?? Upon arrival, Ms. Chapman is hemodynamically stable and afebrile. She states that her pain improved after fentanyl. She is unable to take NSAIDs given her fundoplication. She is currently comfortable,but states that the pain at its worst is unbearable. Hospital Course: Patient was admitted to [facility] from [facility] and underwent the above procedure. [...] to urinate please call our office at [phone] before 5PM or [phone] after hours. Kidney Stone Patients: Try and [...] side pain, you should call our office [phone] before 5PM or [phone] after hours. Call Doctor for: Please call if you have copious blood in your urine, severe back or side pain, pain not controlled by pain medications, persistent nausea and vomiting, or for any fevers greater itav723.3 F. The number for questions is [phone] before 5 PM weekdays and [phone] after 5 PM and weekends. Pain Medication: No driving for 8 hours after any dose of opioid pain medication if one was prescribed for you. You may use ibuprofen (motrin, advil) in addition to this medication if your pain is not totally controlled by the opioid. Follow-up: Please call [phone] (clinic number for appointments) to confirm date [...] PM Reggie Hull MD Infectious Disease at [facility] Arrive at: [facility] [phone] Follow-Up: Future Appointments Date Time Provider Department Center 12/04/2018 12:30 PM Reggie Hull MD [facility] [address] [place] [address] Primary Care Provider: Gissell Davis, OPERATIONS OFFICER [phone] Follow-up Recommendations for Providers: Please see discharge [...] was managed by the Urology Team at [facility]. If you have any questions or concerns, please feel free to contact us. Provider Contact Information: Urology Clinic: [facility] (after business hours): documented in this encounter Discharge Instructions * Patient Instructions* Sara Linduqist PA - 10/16/2018 12:11 PM EDT Instructions [...] to urinate please call our office at [phone] before 5PM or [phone] after hours. Kidney Stone Patients: Try and [...] side pain, you should call our office [phone] before 5PM or [phone] after hours. Call Doctor for: Please call if you have copious blood in your urine, severe back or side pain, pain not controlled by pain medications, persistent nausea and vomiting, or for any fevers greater omfs054.3 F. The number for questions is [phone] before 5 PM weekdays and [phone] after 5 PM and weekends. Pain Medication: No driving for 8 hours after any dose of opioid pain medication if one was prescribed for you. You may use ibuprofen (motrin, advil) in addition to this medication if your pain is not totally controlled by the opioid. Follow-up: Please call [phone] (clinic number for appointments) to confirm date [...] Fay arrived to [facility] via stretcher from [facility]. No report received from facility [...] joint infection and revision who presented to [facility] with flank pain andfound to have bilateral obstructive nephrolithiasis and acute kidney injury. Ms. Chapman states that she developed flank pain about 2 days ago that radiated to her groin. She denied any fevers or chills. She has no history of nephrolithiasis. She denies any irritative voiding/LUTS or hematuria. CT imaging at [facility] showed bilateral ureteral stones. She was afebrile and hemodynamically stable upon admission. Her WBC was 11 and her creatinine was 3.64. UA was negative for nitrites, positive for trace leuk esterase and 5-10 WBC with many squams. This did not reflex for culture. Given her RENAE and bilateral stone burden, she was transferred to [facility] for further urologic care. Upon arrival, Ms. [...] file Gets together: Not on file Attends latter-day service: Not on file Active member of [...] CO2 22 BUN 20* CREATININE 2.99* Microbiology: [facility] ER 10/15: negative for nitrites, positive for trace leuk esterase and 5-10 WBC with many squams. No reflex. 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 Ace. Dariela Tom Urology, PGY-2 Consult pager #[phone] Associated attestation - Nena Ace MD - [...] Edwards MD - 10/16/2018 5:32 PM EDT [facility] Operative Note Patient Name: Barbara Chapman : [id number] MR#: [id number] ?? Case Date: 10/16/2018 ?? Surgeon: Surgeon(s) [...] Operative Note Patient Name: Barbara Chapman : [id number] MR#: [id number] Case Date: 10/16/2018 Surgeon: Surgeon(s) and Role: [...] -- * Consult Note - Ángela Cabral [facility] - 10/16/2018 8:25 AM EDT Clinical Pharmacist Note - Renal Dose Adjustment for Antimicrobials Barbara Chapman (A# [id number]) is being treated with the following antimicrobial [...] Cabral RPH * Initial Assessments - Lima Mroales, RN - 10/16/2018 7:56 AM EDT Office of Care Management Assessment Medical record reviewed. Plan of care and patient status discussed with direct care RN and/or Care Team in multidisciplinary rounds. Screenin y.o. 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 No housing, transportation, insurance, resources concerns identified at this time. Supports in place to achieve a safe post-hospital transition. No identified barriers to accessing necessary care and/or follow-up after discharge. Plan: Patient to d/c home via personal car when medically ready. audio visual engineer/Company Driver will continue to follow patient???s progress and remain available if situation changes for coordination of care, psychosocial support and/or discharge planning. Lima Morales, RN Pager [phone] * Plan of Care - Yaneli Gómez [...] 10/16/2018 5:27 PM EDT Cystourethroscopy, Ureter Catheter ([id number]) 10/16/2018 4:34 PM EDT Bilateral nephrolithiasis Cystoscopy, Insert Ureteral Stent ([id number]) 10/16/2018 4:34 PM EDT Bilateral nephrolithiasis POCT [...] of body mass or the acutely ill. [email or web address] eGFR 34(L) >=60 mL/min/1. 73 m?? [facility] Comment: The eGFR was calculated using the CKD-EPI equation. As with all creatinine based estimates of kidney function, eGFR values calculated with the CKD-EPI equation are not accurate in patients with acute kidney failure, extremes of body mass or the acutely ill. [email or web address] Blood specimen (specimen) 10/17/2018 5:08 AM EDT 10/17/2018 5:22 AM EDT Narrative Resulting Agency Comment Spec In Lab Nena Ace MD CHEMISTRY ORDERABLES Performing Organization Address [facility] Co de Phone Number [facility] [place] [address] * POCT Glucose (10/17/2018 4:38 AM EDT) Glucose, POC 102 65 - 199 mg/dL [facility] Comment: Supplemental ranges: <140 mg/dL before meals <180 mg/dL all other times of the day Blood specimen (specimen) 10/17/2018 4:38 AM EDT 10/17/2018 4:38 AM EDT Nena Ace MD POINT OF CARE TEST O RDERABLES Performing Organization Address [facility] Co de Phone Number [facility] [place] [address] * POCT Glucose (10/16/2018 11:48 PM EDT) Glucose, POC 133 65 - 199 mg/dL [facility] Comment: Supplemental ranges: <140 mg/dL before meals <180 mg/dL all other times of the day Blood specimen (specimen) 10/16/2018 11:48 PM EDT 10/16/2018 11:48 PM EDT Nena Ace MD POINT OF CARE TEST O MEAGAN Performing Organization Address [facility] Co de Phone Number [facility] [place] [address] * POCT Glucose (10/16/2018 8:06 PM EDT) Glucose, POC 173 65 - 199 mg/dL [facility] Comment: Supplemental ranges: <140 mg/dL before meals <180 mg/dL all other times of the day Blood specimen (specimen) 10/16/2018 8:06 PM EDT 10/16/2018 8:06 PM EDT Nena Ace MD POINT OF CARE TEST O MEAGAN Performing Organization Address [facility] Co de Phone Number [facility] [place] [address] * POCT Glucose (10/16/2018 5:52 PM EDT) Glucose, POC 149 65 - 199 mg/dL [facility] Comment: Supplemental ranges: <140 mg/dL before meals <180 mg/dL all other times of the day Blood specimen (specimen) 10/16/2018 5:52 PM EDT 10/16/2018 5:52 PM EDT Nena Ace MD POINT OF CARE TEST O MEAGAN Performing Organization Address [facility] Co de Phone Number [facility] [place] [address] * POCT Glucose (10/16/2018 4:18 PM EDT) Glucose, POC 114 65 - 199 mg/dL [facility] Comment: Supplemental ranges: <140 mg/dL before meals <180 mg/dL all other times of the day Blood specimen (specimen) 10/16/2018 4:18 PM EDT 10/16/2018 4:18 PM EDT Nena Ace MD POINT OF CARE TEST O RDERABLES Performing Organization Address [facility] Co de Phone Number [facility] [place] [address] * POCT Glucose (10/16/2018 11:43 AM EDT) Glucose, POC 123 65 - 199 mg/dL [facility] Comment: Supplemental ranges: <140 mg/dL before meals <180 mg/dL all other times of the day Blood specimen (specimen) 10/16/2018 11:43 AM EDT 10/16/2018 11:43 AM EDT Nena Ace MD POINT OF CARE TEST O RDERAANN Performing Organization Address [facility] Co de Phone Number [facility] [place] [address] * POCT Glucose (10/16/2018 8:07 AM EDT) Glucose, POC 134 65 - 199 mg/dL [facility] Comment: Supplemental ranges: <140 mg/dL before meals <180 mg/dL all other times of the day Blood specimen (specimen) 10/16/2018 8:07 AM EDT 10/16/2018 8:07 AM EDT Nena Ace MD POINT OF CARE TEST O RDERABLES Performing Organization Address [facility] Co de Phone Number [facility] [address] * POCT Glucose (10/16/2018 3:21 AM EDT) Glucose, POC 104 65 - 199 mg/dL [facility] Comment: Supplemental ranges: <140 mg/dL before meals <180 mg/dL all other times of the day Blood specimen (specimen) 10/16/2018 3:21 AM EDT 10/16/2018 3:21 AM EDT Nena Ace MD POINT OF CARE TEST O RDERABLES Performing Organization Address City/[facility]/ZIP Co de Phone Number [facility] [address] * POCT Glucose (10/15/2018 11:33 PM EDT) Glucose, POC 155 65 - 199 mg/dL [facility] Comment: Supplemental ranges: <140 mg/dL before meals <180 mg/dL all other times of the day Blood specimen (specimen) 10/15/2018 11:33 PM EDT 10/15/2018 11:33 PM EDT Nena Ace MD POINT OF CARE TEST O RDERAANN Performing Organization Address [facility] Co de Phone Number [facility] [place] [address] * POCT Glucose (10/15/2018 7:16 PM EDT) Glucose, POC 118 65 - 199 mg/dL [facility] Comment: Supplemental ranges: <140 mg/dL before meals <180 mg/dL all other times of the day Blood specimen (specimen) 10/15/2018 7:16 PM EDT 10/15/2018 7:16 PM EDT Nena Ace MD POINT OF CARE TEST O RDERAANN Performing Organization Address City/[facility]/ZIP Co de Phone Number [facility] [place] [address] * POCT Glucose (10/15/2018 4:06 PM EDT) Glucose, POC 104 65 - 199 mg/dL [facility] Comment: Supplemental ranges: <140 mg/dL before meals <180 mg/dL all other times of the day Blood specimen (specimen) 10/15/2018 4:06 PM EDT 10/15/2018 4:06 PM EDT Nena Ace MD POINT OF CARE TEST O RDERABLES Performing Organization Address City/[facility]/[place] [address] * (ABNORMAL) Differential, Automated (10/15/2018 3:34 PM EDT) Neutrophil % 69.5 % [facility] Neutrophil Absolute 6.68(H) 1.70 - 6.10 x10(3)/mc L [facility] Lymph % 17.5 % [facility] Lymphocytes Abs 1.7 0.9 - 3.2 x10(3)/ L [facility] Monocyte % 11.6 % [facility] Monocyte Abs 1.1(H) 0.3 - 0.9 x10(3)/mc L [facility] Eos % 1.0 % [facility] Eosinophils Abs 0.1 0.0 - 0.4 x10(3)/ L [facility] Basophil % 0.1 % [facility] Baso Absolute 0.0 0.0 - [...] MD HEMATOLOGY ORDERABLE S Performing Organization Address City/[facility]/ZIP Co de Phone Number [facility] [place] [address] * (ABNORMAL) Hemogram (10/15/2018 3:34 PM EDT) Pathologist [facility] White Blood Cell 9.6(H) 4.0 [...] LABORATORY Platelet 237 145 - 357 x10(3)/[facility] RDW Standard Deviation 50.2(H) 37.0 - 46.0 fL [facility] RDW coefficient of variation 14.6(H) 11.5 - 14.1 % [facility] Mean Platelet Volume 10.2 7.6 - 12.9 fL [facility] NRBC% auto 0.0 % [facility] NRBC Absolute 0.000 0.000 - 0.000 x10(3)/[facility] Blood specimen (specimen) 10/15/2018 3:34 PM EDT 10/15/2018 3:45 PM EDT Narrative Resulting Agency Comment Spec In Lab Dariela Tom MD HEMATOLOGY ORDERABLE S [facility] [place] [address] * (ABNORMAL) Basic Metabolic Panel (non-fasting) (10/15/2018 3:34 PM EDT) Pathologist [facility] Glucose 110 65 - 199 [...] of body mass or the acutely ill. [email or web address] eGFR 20(L) >=60 mL/min/1. 73 m?? [facility] Comment: The eGFR was calculated using the CKD-EPI equation. As with all creatinine based estimates of kidney function, eGFR values calculated with the CKD-EPI equation are not accurate in patients with acute kidney failure, extremes of body mass or the acutely ill. [email or web address] Blood specimen (specimen) 10/15/2018 3:34 PM EDT 10/15/2018 3:45 PM EDT Narrative Resulting Agency Comment Spec In Lab Nena Ace MD CHEMISTRY ORDERABLES [facility] [place] [address] * Urinalysis with reflex Culture (10/15/2018 3:27 [...] HOSPITAL LABORATORY Leukocytes, Urine Dipstick Negative Negative [facility] Appearance, Urine Dipstick Clear Clear [facility] Specific [facility] Urine Automated 1.013 1.002 - 1.030 [facility] Color, Urine Dipstick Yellow Yellow [facility] Reflex to Culture No [facility] Urine specimen obtained by clean catch procedure (specimen) 10/15/2018 3:27 PM EDT 10/15/2018 3:48 PM EDT Narrative Resulting Agency Comment Spec In Lab Nena Ace MD URINE ORDERABLES Performing Organization Address [facility]/ZIP Co de Phone Number [facility] [place] [address] documented in this encounter Visit Diagnoses Diagnosis [...] RN)1104 (Given - Provider: Sarah Pappas RN)1634 ([facility] Hold - Provider: Admin Adt - Reason: Transfer to a Procedural area)1800 (Automatically Held - Provider: Admin Adt)190 ([facility] Unhold - Provider: Admin Adt) 0026 (Given - Provider: Alisson Rivers RN)0531 (Given - Provider: Alisson Rivers RN) amitriptyline (ELAVIL) tablet 25 mg 25 mg, Oral, NIGHTLY, First dose on Mon10/15/18 at 2100, Until Discontinued, Routine 2149 (Given - Provider: Yaneli Gómez RN) 1634 ([facility] Hold - Provider: Admin Adt - Reason: Transfer to a Procedural area)190 ([facility] Unhold - Provider: Admin Adt)204 (Given - Provider: Alisson Rivers RN) cephALEXin (KEFLEX) capsule 250 mg 250 mg, Oral, 3 TIMES DAILY, First dose on Mon10/16/18 at 0900, Until Discontinued, Routine, Indication for (Active or Suspected): Bone/Joint 0912 (Given - Provider: Sarah Pappas RN)1404 (Given - Provider: Sarah Pappas RN)1634 ([facility] Hold - Provider: Admin Adt - Reason: Transfer to a Procedural area)190 ([facility] Unhold - Provider: Admin Adt)2047 (Given - Provider: Alisson Rivers RN) 0841 (Given - Provider: Eligio Purcell RN) ciprofloxacin (CIPRO) 400 mg in dextrose 5% 200 mL (COMPLETED) 400 mg, Intravenous, ALCOHOL RUBBER TO O.R., 1 dose, On Mon10/16/18 at 1345, Administer over 60 Minutes, Indication for (Active or Suspected): Prophylaxis, Restricted Antibiotic: Please indicate the most appropriate choice: Pre-approved Indication (State the indication in Comments field) 1634 ([facility] Hold - Provider: Admin Adt - Reason: Transfer to a Procedural area)1648 (Given - Provider: Mario Simpson)190 ([facility] Unhold - Provider: Admin Adt) FLUoxetine [...] RN - Reason: Order parameters not met)1634 ([facility] Hold - Provider: Admin Adt - Reason: Transfer to a Procedural area)1908 ([facility] Unhold - Provider: Admin Adt)2046 (Given [...] (Given - Provider: Yaneli Gómez RN) 1633 ([facility] Hold - Provider: Admin Adt - Reason: Transfer to a Procedural area)1908 ([facility] Unhold - Provider: Admin Adt)2046 (Given - Provider: Alisson Rivers RN) pantoprazole (PROTONIX) tablet 40 mg 40 mg, Oral, DAILY, First dose on Mon10/16/18 at 0900, Until Discontinued, DO NOT CRUSH OR OPEN 0912 (Given - Provider: Sarah Pappas RN)163 ([facility] Hold - Provider: Admin Adt - Reason: Transfer to a Procedural area)1908 ([facility] Unhold - Provider: Admin Adt) 08 (Given - Provider: Eligio Purcell RN) rifAMPin (RIFADIN) capsule 300 mg 300 mg, Oral, 2 TIMES DAILY, First dose on Mon10/15/18 at 2100, Until Discontinued, Routine, Indication for (Active or Suspected): Bone/Joint 2148 (Given - Provider: Yaneli Gómez RN) 0912 (Given - Provider: Sarah Pappas RN)163 ([facility] Hold - Provider: Admin Adt - Reason: Transfer to a Procedural area)1908 ([facility] Unhold - Provider: Admin Adt)2046 (Given - Provider: Alisson Rivers RN) 0842 (Given - Provider: Eligio Purcell, RADHA) sodium chloride 0.9 % (flush) flush 5 mL 5 mL, Intravenous, 2 TIMES DAILY, First dose on Mon10/15/18 at 2100, Until Discontinued, Routine 2149 (Given - Provider: Yaneli Gómez, RN) 0913 (Given - Provider: Sarah Pappas RN)1634 ([facility] Hold - Provider: Admin Adt - Reason: Transfer to a Procedural area)1909 ([facility] Unhold - Provider: Admin Adt)2050 (Given - Provider: Alisson Rivers RN) 0900 (Due - Provider: Admin Adt) tamsulosin (FLOMAX) ER capsule 0.4 mg 0.4 mg, Oral, DAILY, First dose on Mon10/15/18 at 1545, Until Discontinued, DO NOT CRUSH OR OPEN, Routine 1609 (Given - Provider: Sarah Pappas RN) 0912 (Given - Provider: Sarah Pappas RN)1634 ([facility] Hold - Provider: Admin Adt - Reason: Transfer to a Procedural area)190 ([facility] Unhold - Provider: Admin Adt) 0842 (Given - Provider: Eligio Purcell, RADHA) Continuous Medication Order 10/15/2018 10/16/2018 10/17/2018 lactated ringers infusion (CANCELED) 1,000 mL, at 100 mL/hr, Intravenous, CONTINUOUS, Starting on Mon10/15/18 at 1545, Until Mon10/16/18 at 1933 1609 (New Bag - Provider: Sarah Pappas RN) 0206 (New Bag - Provider: Yaneli Gómez, RADHA)1634 ([facility] Hold - Provider: Admin Adt - Reason: Transfer to a Procedural area)190 ([facility] Unhold - Provider: Admin Adt) PRN [...] Until Mon10/17/18 at 1209, Anxiety, Routine 1634 ([facility] Hold - Provider: Admin Adt - Reason: Transfer to a Procedural area)1908 ([facility] Unhold - Provider: Admin Adt) docusate sodium (COLACE) capsule 100 mg 100 mg, Oral, 2 TIMES DAILY PRN, Starting on Mon10/15/18 at 1518, Until Mon10/17/18 at 1209, Constipation, Routine 1634 ([facility] Hold - Provider: Admin Adt - Reason: Transfer to a Procedural area)1908 ([facility] Unhold - Provider: Admin Adt) glucagon [...] duration of the active insulin., Routine 163 ([facility] Hold - Provider: Admin Adt - Reason: Transfer to a Procedural area)1908 ([facility] Unhold - Provider: Admin Adt) glucose [...] of tube = 37.5 grams., Routine 163 ([facility] Hold - Provider: Admin Adt - Reason: Transfer to a Procedural area)1908 ([facility] Unhold - Provider: Admin Adt) HYDROmorphone [...] RN)1603 (Given - Provider: Sarah Pappas RN)1634 ([facility] Hold - Provider: Admin Adt - Reason: Transfer to a Procedural area)1908 ([facility] Unhold - Provider: Admin Adt) iohexol [...] - Reason: Transfer to a Procedural area)190 ([facility] Unhold - Provider: Admin Adt) oxyCODONE [...] - Reason: Transfer to a Procedural area)190 ([facility] Unhold - Provider: Admin Adt) Linked [...] first. documented in this encounter Care Teams Bilingual Medical Assistant Relationship Specialty Start Date End Date Gissell Davis APRN [address] [place] [address] PCP - General Family Medicine 08/21/18 11/12/21 documented as of this encounter
--- OUTSIDE RECORDS SUMMARY | 2023-10-18 01:46 | XMS_ITS | Encounter Summary ---
[place] [address] Care Team Providers Care Palliative Nurse Name Role Phone Gissell Davis APRN Primary Care Provider [phone] Encounter Details Date Type Department Care Team (Late st Contact Info) Description 05/06/2019 Ancillary Procedure [place] [address] Gissell Davis APRN [address] [place] [address] Social History Tobacco Use Types Packs/Day Years [...] DX Knee (05/06/2019 12:00 AM EDT) Narrative [facility] - 03/17/2020 3:58 PM EST This exam is auto-finalizing. It's purpose is for storage only. Gissell Davis APRN [facility] FILM LIBRARY ORD ERABLES DH [place], [place] documented in this encounter Visit Diagnoses Not on filedocumented in this encounter Care Teams Palliative Nurse Relationship Specialty Start Date End Date Gissell Davis APRN [address] [place] [address] PCP - General Family Medicine 08/21/18 11/12/21 documented as of this encounter
--- OUTSIDE RECORDS SUMMARY | 2023-10-18 01:46 | XMS_ITS | Encounter Summary ---
Author Organization [facility] [place] [address] Care Team Providers Care Building Services Engineer Name Role Phone Gissell Davis APRN Primary Care Provider [phone] Encounter Details Date Type Department Care Team (Late st Contact Info) Description 01/21/2019 [place] [phone] Mariella Olivera LPN Social History Tobacco Use [...] 01/21/2019 3:14 PM EST Call placed to [facility] lab regarding urine culture results. No answer. Will try back at later time. documented in this encounter Plan of Treatment Not on file documented as of this encounter Visit Diagnoses Not on filedocumented in this encounter Care Teams Building Services Engineer Relationship Specialty Start Date End Date Gissell Davis APRN [address] [place] [address] PCP - General Family Medicine 08/21/18 11/12/21 documented as of this encounter
--- OUTSIDE RECORDS SUMMARY | 2023-10-18 01:46 | XMS_ITS | Encounter Summary ---
Author Organization [facility] [place] [address] Care Team Providers Care Equine Internship Name Role Phone Gissell Davis APRN Primary Care Provider [phone] Encounter Details Date Type Department Care Team (Late st Contact Info) Description 01/02/2019 [place] [address] Stacey Leblanc MD [facility] [place] [address] Other symptoms and signs involving the genitourinary [...] system documented in this encounter Care Teams Equine Internship Relationship Specialty Start Date End Date Gissell Davis APRN [address] [place], [place] [address] PCP - General Family Medicine 08/21/18 11/12/21 documented as of this encounter
--- OUTSIDE RECORDS SUMMARY | 2023-10-18 01:46 | XMS_ITS | Encounter Summary ---
Author Organization [facility] [place] [address] Care Team Providers Care Campaign Advisor Name Role Phone Gissell Davis APRN Primary Care Provider [phone] Encounter Details Date Type Department Care Team (Late st Contact Info) Description 11/29/2018 [place] [phone] Esthela Ortiz Social History Tobacco Use Types [...] on filedocumented in this encounter Care Teams Campaign Advisor Relationship Specialty Start Date End Date Gissell Davis APRN [address] [place] [address] PCP - General Family Medicine 08/21/18 11/12/21 documented as of this encounter
--- OUTSIDE RECORDS SUMMARY | 2023-10-18 01:46 | XMS_ITS | Encounter Summary ---
Author Organization [facility] Address [facility] Cheryl [facility] [place] [address] Care Team Providers Care Software Firmware Engineer Name Role Phone Gissell Davis APRN Primary Care Provider Encounter Details Date Type Department Care Team (Late st Contact Info) Description 01/24/2019 8:33 AM EST Anesthesia Event [place] [address] Ken Canseco MD [facility] [place] [address] Lu Lopez CRNA [facility] [place] [address] Anesthesia Record Procedure Summary Procedure Name Responsible [...] 0802; median cubital vein (antecubital fossa), left; vwxz-sgv-wpnmgy catheter system; 22 gauge, 1/2 in length; [...] Procedure Summary Date: 01/24/19 Room / Location: [address] Anesthesia Start: 832 Anesthesia Stop: 101 [...] All Anesthesia Providers: Anesthesiologist: Ken Canseco MD ERP TECHNICAL LEAD: Lu Lopez CRNA Vitals Value Taken Time BP 133/77 01/24/2019 10:27 AM Temp 36.1 ??C (97 ??F) 01/24/2019 10:14 AM Pulse 84 01/24/2019 10:34 AM Resp 20 01/24/2019 10:34 AM SpO2 98 % 01/24/2019 10:34 AM Pain Level 1 01/24/2019 10:55 AM Patient Location: PACU/[facility] Level of Consciousness: Awake and Alert [...] 7.5) performed by Nena Ace MD at [facility] OR ??? PRO CYSTO/URETERO/PYELOSCOPY W/LITHOTRIPSY Bilateral 12/28/2018 CYSTOURETEROSCOPY, LITHOTRIPSY (WRVU 7.5) performed by Nena Ace MD at [facility] OR ??? PRO CYSTO/URETERO/PYELOSCOPY, CALCULUS TX Bilateral 11/16/2018 CYSTOURETHROSCOPY WITH UTETEROSCOPY, W\REMOVAL, MANIPULATION OF CALCULUS (WRVU 6.75) performed by Nena Ace MD at [facility] OR ??? PRO CYSTOSCOPY, INSERT URETERAL STENT Bilateral 10/16/2018 CYSTO, STENT PLACEMENT (WRVU 2.82) performed by Agustin Crespo MD at [facility] OR ??? PRO CYSTOSCOPY, INSERT URETERAL STENT Bilateral 11/16/2018 CYSTO, STENT PLACEMENT (WRVU 2.82) performed by Nena Ace MD at [facility] OR ??? PRO CYSTOURETHROSCOPY, URETER CATHETER Bilateral 10/16/2018 CYSTO, RETROGRADE, URETEROPYELOGRAPHY (WRVU 2.37) performed by Agustin Crespo MD at [facility] OR Social History Tobacco Use ??? Smoking [...] 50 mL Mini-Bag Plus 2 g, Intravenous, PUMP ERECTOR TO O.R., 1 dose, On Christen 01/24/19 [...] mL/hr documented in this encounter Care Teams Software Firmware Engineer Relationship Specialty Start Date End Date Gissell Davis, KENYATTA [address] [place] [address] PCP - General Family Medicine 08/21/18 11/12/21 documented as of this encounter
--- OUTSIDE RECORDS SUMMARY | 2023-10-18 01:46 | XMS_ITS | Encounter Summary ---
Author Organization [facility] Address [facility] [place] [address] Care Team Providers Care Sales Assistant Displays Name Role Phone Gissell Davis APRN Primary Care Provider [phone] Encounter Details Date Type Department Care Team (Late st Contact Info) Description 12/28/2018 10:45 AM EST Anesthesia Event [place] [address] Gaudencio Caraballo MD [facility] [place] [address] Poonam Day MD [facility] [place] [address] Anesthesia Record Procedure Summary Procedure Name Responsible [...] IV Line - Single Lumen 12/28/18; 0939; bcjy-vzu-neovdy catheter system; 20 gauge, 1 in length; [...] Procedure Summary Date: 12/28/18 Room / Location: [facility] OR [facility] MA[facility] OR Anesthesia Start: 1045 Anesthesia Stop: 1322 Procedures: CYSTOURETEROSCOPY, LITHOTRIPSY (WRVU 7.5) (Bilateral Ureter) MODIFIER HOLMIUM LASER (N/A ) Diagnosis: (STONE) Surgeon: Nena Ace MD Responsible Provider: Gaudencio Caraballo MD Anesthesia Type: general ASA Status: 2 All Anesthesia Providers: Anesthesiologist: Gaudencio Caraballo MD Buttermaker: Poonam Day MD Vitals Value Taken Time [...] 7.5) performed by Nena Ace MD at [facility] MAIN OR ??? PRO CYSTO/URETERO/PYELOSCOPY, CALCULUS TX Bilateral 11/16/2018 CYSTOURETHROSCOPY WITH UTETEROSCOPY, W\REMOVAL, MANIPULATION OF CALCULUS (WRVU 6.75) performed by Nena Ace MD at [facility] MAIN OR ??? PRO CYSTOSCOPY, INSERT URETERAL STENT Bilateral 10/16/2018 CYSTO, STENT PLACEMENT (WRVU 2.82) performed by Agustin Crespo MD at [facility] MAIN OR ??? PRO CYSTOSCOPY, INSERT URETERAL STENT Bilateral 11/16/2018 CYSTO, STENT PLACEMENT (WRVU 2.82) performed by Nena Ace MD at [facility] OR ??? PRO CYSTOURETHROSCOPY, URETER CATHETER Bilateral 10/16/2018 CYSTO, RETROGRADE, URETEROPYELOGRAPHY (WRVU 2.37) performed by Agustin Crespo MD at [facility] MAIN OR Social History Tobacco Use [...] 50 mL Mini-Bag Plus 2 g, Intravenous, FIRE SYSTEMS INSPECTOR TO O.R., 1 dose, On Mon12/28/18 at [...] mg documented in this encounter Care Teams Sales Assistant Displays Relationship Specialty Start Date End Date Gissell Davis, [employer]ET[employer] [address] [place] [address] PCP - General Family Medicine 08/21/18 11/12/21 documented as of this encounter
--- OUTSIDE RECORDS SUMMARY | 2023-10-18 01:46 | XMS_ITS | Encounter Summary ---
Author Organization [facility] [address] Care Team Providers Care Gas Meter Checker Name Role Phone Gissell Davis APRN Primary Care Provider Encounter Details Date Type Department Care Team (Latest Contact Info) Description 11/16/2018 7:26 AM EDT - 11/16/2018 2:10 PM EDT Hospital En[place] [address] Nena Ace MD [facility] [place] [address] Discharge Disposition: Home Social History Tobacco Use [...] Program 8a-5pm Monday-Monday. All other times, call [phone] and ask for the anesthesiologist storage management consultant. POST ANESTHESIA INSTRUCTIONS Go home, rest, [...] pain medications The number for questions is [phone] before 5 PM weekdays and [phone] after 5 PM and weekends. Activity level: [...] stone in about a month. Please call [phone] if you do not hear from the [...] since her last admission. Urine cx from [facility] on 11/08/18 is mixed mucosal probable contaminate. [...] Operative Note Patient Name: Barbara Chapman : [id number] MR#: [id number] Case Date: 11/16/2018 Surgeon: Surgeon(s) and Role: [...] 3 hr in lithotomy position. A 7fr [id number] stent was then placed over a wire. [...] Operative Note Patient Name: Barbara Chapman : [id number] MR#: [id number] Case Date: 11/16/2018 Surgeon: Surgeon(s) and Role: [...] USE Routine 11/16/2018 1:06 PM EDT [facility] KIDNEY STONE ANALYSIS Routine 11/16/2018 12:40 PM EDT HC URINE CULTURE Routine 11/16/2018 10:1 0 AM EDT MODIFIER HOLMIUM LASER Yes 11/16/2018 9:41 AM EDT URETERAL OBSTRUCTION Cysto/Uretero/Pyelos copy, Calculus Tx (04393) Yes 11/16/2018 9:41 AM EDT URETERAL OBSTRUCTION Cysto/Uretero/Pyelos copy W/Lithotripsy (07416) Yes 11/16/2018 9:41 AM EDT URETERAL OBSTRUCTION Cystoscopy, Insert Ureteral Stent (35236) Yes 11/16/2018 9:41 AM EDT URETERAL OBSTRUCTION POCT GLUCOSE Routine 11/16/2018 9:00 AM EDT IMPLANTABLE DEVICES SCAN 11/16/2018 12:00 AM EDT documented in this encounter Results * POCT Glucose (11/16/2018 1:13 PM EDT) Glucose, POC 145 65 - 199 mg/dL [facility] Comment: Supplemental ranges: <140 mg/dL before meals <180 mg/dL all other times of the day Blood specimen (specimen) 11/16/2018 1:13 PM EDT 11/16/2018 1:13 PM EDT Nena Ace MD POINT OF CARE TEST O RDERABLES Performing Organization Address City/[facility]/ZIP Co de Phone Number [facility] [place] [address] * XR Fluoro No Rad <1Hr - OR Use (11/16/2018 1:06 PM EDT) Narrative RAD - 11/16/2018 1:07 PM EDT This exam is auto-finalizing. No interpretation was done. Nena Ace MD IMG FLUORO ORDERABLE S Performing Organization Address City[facility]/ZIP Co de Phone Number [place], [place] * Kidney Stone Analysis (11/16/2018 12:40 PM EDT) Kidney Stone Analysis (MAY) Test ?Result ? Flag ??Unit ??RefValue Kidney Stone Analysis ??Source: ? Ureter ??Interpretation ?SEE COMMENTS ?90% Calcium oxalate monohydrate ?10% Calcium phosphate (apatite) ?Test Performed by: ?[facility] ?[address] [place] [address] ?Motor Operator: Mario River M.D. Ph.D.; CLIA# [id number] [facility] Calculus specimen (specimen) 11/16/2018 12:40 PM EDT 11/16/2018 3:42 PM EDT Narrative Resulting Agency Comment Spec In Lab Nena Ace MD LAB SEND OUT ORDERAB LES [facility] [place] [address] * Urine culture Cystoscopic Urine (11/16/2018 10:10 AM EDT) Urine Culture No growth (Less than 100 cfu/ml). [facility] Urine specimen (specimen) 11/16/2018 10:10 AM EDT 11/16/2018 2:25 PM EDT Narrative Resulting Agency Comment Spec In Lab Nena Ace MD MICROBIOLOGY - GENER AL ORDERABLES Performing Organization Address [facility]/ZIP Co de Phone Number [facility] [place] [address] * POCT Glucose (11/16/2018 9:00 AM EDT) Glucose, POC 135 65 - 199 mg/dL [facility] Comment: Supplemental ranges: <140 mg/dL before meals <180 mg/dL all other times of the day Blood specimen (specimen) 11/16/2018 9:00 AM EDT 11/16/2018 9:00 AM EDT Nena Ace MD POINT OF CARE TEST O RDERABLES Performing Organization Address [facility] [[email or web address]] Co de Phone Number [facility] [place] [address] * SCAN DOC: IMPLANTABLE DEVICES (11/16/2018 12:00 [...] 5% 200 mL (COMPLETED) 400 mg, Intravenous, HISTOLOGY TECH TO O.R., 1 dose, On Mon11/16/18 at [...] Routine documented in this encounter Care Teams Gas Meter Checker Relationship Specialty Start Date End Date Gissell Davis APRN [address] [place] [address] PCP - General Family Medicine 08/21/18 11/12/21 documented as of this encounter
--- OUTSIDE RECORDS SUMMARY | 2023-10-18 01:46 | XMS_ITS | Encounter Summary ---
Author Organization [facility] [place] [address] Care Team Providers Care Real Estate Consultant Name Role Phone Gissell Davis APRN [...] SURGERIES Raheel Gongora MD [address] [place] [address] [facility] [address] [place] [phone] Referral ID Status Reason Start Date Expiration Date V isits Requested Visits Authorized [id number] Closed Consult, Test & Treat Connection Center PCP Updated and/or Approved 03/17/2020 03/17/2021 6 6 Encounter Details Date Type Department Care Team (Late st Contact Info) Description 04/23/2020 1:00 PM EST Office [place] [address] Ward Sheffield MD [facility] [place] [address] Patella baja Social History Tobacco [...] BILATERAL knee. ARTHROPLASTY PROCEDURES: (Dr. Gongora / [place], [place]) 1. 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 LEFT TOTAL KNEE EXPLANT, SPACER PLACEMENT 3. LEFT TOTAL KNEE REPLANT (On chronic antibiotic suppression) HISTORY OF PRESENT ILLNESS: I had the pleasure of seeing Barbara Chapman in consultation today. She was referred to me by Dr. Gongora in [place], [place] for a second opinion. Barbara Chapman [...] 7.5) performed by Nena Ace MD at [facility] MAIN OR ??? PRO CYSTO/URETERO/PYELOSCOPY W/LITHOTRIPSY Bilateral 12/28/2018 CYSTOURETEROSCOPY, LITHOTRIPSY (WRVU 7.5) performed by Nena Ace MD at [facility] MAIN OR ??? PRO CYSTO/URETERO/PYELOSCOPY W/LITHOTRIPSY N/A 01/24/2019 CYSTOURETEROSCOPY, LITHOTRIPSY (WRVU 7.5) performed by Stacey Leblanc MD at [facility] OSC ??? PRO CYSTO/URETERO/PYELOSCOPY, CALCULUS TX Bilateral 11/16/2018 CYSTOURETHROSCOPY WITH UTETEROSCOPY, W\REMOVAL, MANIPULATION OF CALCULUS (WRVU 6.75) performed by Nena Ace MD at [facility] MAIN OR ??? PRO CYSTO/URETERO/PYELOSCOPY, CALCULUS TX N/A 01/24/2019 CYSTOURETHROSCOPY WITH UTETEROSCOPY, W\REMOVAL, MANIPULATION OF CALCULUS (WRVU 6.75) performed by Stacey Leblanc MD at [facility] OSC ??? PRO CYSTOSCOPY, INSERT URETERAL STENT Bilateral 10/16/2018 CYSTO, STENT PLACEMENT (WRVU 2.82) performed by Agustin Crespo MD at [facility] MAIN OR ??? PRO CYSTOSCOPY, INSERT URETERAL STENT Bilateral 11/16/2018 CYSTO, STENT PLACEMENT (WRVU 2.82) performed by Nena Ace MD at [facility] MAIN OR ??? PRO CYSTOSCOPY, INSERT URETERAL STENT N/A 01/24/2019 CYSTO, STENT PLACEMENT (WRVU 2.82) performed by Stacey Leblanc MD at [facility] OSC ??? PRO CYSTOURETHROSCOPY, URETER CATHETER Bilateral 10/16/2018 CYSTO, RETROGRADE, URETEROPYELOGRAPHY (WRVU 2.37) performed by Agustin Crespo MD at [facility] MAIN OR ??? PRO CYSTOURETHROSCOPY, URETER CATHETER Right 01/24/2019 CYSTO, RETROGRADE, URETEROPYELOGRAPHY (WRVU 2.37) performed by Stacey Leblanc MD at [facility] ALLERGIES: Allergies Allergen Reactions ??? Latex ??? Codeine Phosphate ??? Erythromycin Base ??? Gloves, Latex ??? Latex Dams Allergies to metals: None known. FAMILY HISTORY: Family history was reviewed with patient and is as listed below. There is not a family history of bleeding or anesthetic complications. History reviewed. No pertinent family history. SOCIAL HISTORY: The patient lives in [facility] with her spouse. Social History [...] baja documented in this encounter Care Teams Real Estate Consultant Relationship Specialty Start Date End Date Gissell Davis APRN [address] [place], [place] [address]Y [address] [place] [address] PCP - General Family Medicine 08/21/18 11/12/21 documented as of this encounter
--- OUTSIDE RECORDS SUMMARY | 2023-10-18 01:46 | XMS_ITS | Encounter Summary ---
Author Organization [facility] [place] [address] Care Team Providers Care Television Receiver Analyzer Name Role Phone Gissell Davis APRN Primary Care Provider Encounter Details Date Type Department Care Team (Late st Contact Info) Description 02/05/2019 [place] [phone] Stacey Leblanc MD [facility] [place] [address] Social History Tobacco Use Types Packs/Day Years [...] Per PT request, faxed US order to [facility] at [phone]. Asked them to please have done before 03/19/19 so that we have time to get the records. Asked them to please send the images and reports. documented in this encounter Plan of Treatment Not on file documented as of this encounter Visit Diagnoses Not on filedocumented in this encounter Care Teams Television Receiver Analyzer Relationship Specialty Start Date End Date Gissell Davis APRN [address] [place] [address] PCP - General Family Medicine 08/21/18 11/12/21 documented as of this encounter
--- OUTSIDE RECORDS SUMMARY | 2023-10-18 01:46 | XMS_ITS | Encounter Summary ---
Author Organization [facility] Address [facility] [place] [address] Care Team Providers Care Interior Design Coordinator Name Role Phone Gissell Davis APRN Primary Care Provider [phone] Encounter Details Date Type Department Care Team (Late st Contact Info) Description 11/16/2018 9:41 AM EDT Anesthesia Event Main Operating Room [facility] [place] [place] [phone] Stacey Sanchez MD [facility] [place] [address] Anesthesia Record Procedure Summary Procedure Name Responsible Anesthesiologist Anesthesia Start Time Anesthesia Stop Time CYSTO, STENT PLACEMENT (WRVU 2.82) (Bilateral: Ureter) Stacey Sanchez MD 11/16/18 0941 11/16/18 1310 Events Date Time Event Comment 11/16/2018 0923 0941 AN Verify 0941 Start 0941 An Start Data 0947 An Induction 0948 An Intubation 0949 Anesthesia Ready 1254 Break/Relief In Natalia D Gig gy, NETWORK CONTROL OPERATOR 1301 Extubation/LMA Out 1303 an stop data [...] Procedure Summary Date: 11/16/18 Room / Location: [facility] MAIN OR Anesthesia Start: 940 Anesthesia [...] All Anesthesia Providers: Anesthesiologist: Stacey Sanchez MD Sheet Rock Finisher: Qiana Negro MD Vitals Value Taken Time BP 124/84 11/16/2018 1:15 PM Temp 36.8 ??C (98.2 ??F) 11/16/2018 1:09 PM Pulse Resp 18 11/16/2018 1:15 PM SpO2 96 % 11/16/2018 1:25 PM Pain Level Vitals shown include unvalidated device data. [facility] Level of Consciousness: Awake and Alert Pain [...] 2.82) performed by Agustin Crespo MD at [facility] MAIN OR ??? PRO CYSTOURETHROSCOPY, URETER CATHETER Bilateral 10/16/2018 CYSTO, RETROGRADE, URETEROPYELOGRAPHY (WRVU 2.37) performed by Agustin Crespo MD at [facility] MAIN OR Social History Tobacco Use [...] despite PPI, has added carafate to regimen. Gaxpcpla-tl-ebpiwv asthma, inhibits activity, uses rescue inhaler several [...] dextrose 5% 200 mL 400 mg, Intravenous, LABORATORY MECHANIC HELPER TO O.R., 1 dose, On Mon11/16/18 at [...] mg documented in this encounter Care Teams Interior Design Coordinator Relationship Specialty Start Date End Date Gissell Davis APRN [address] [place] [address] PCP - General Family Medicine 08/21/18 11/12/21 documented as of this encounter
--- OUTSIDE RECORDS SUMMARY | 2023-10-18 01:46 | XMS_ITS | Encounter Summary ---
Author Organization [facility] Address [facility] [place] [address] Care Team Providers Care Country Printer Name Role Phone Susan Gissell Murphy APRN Primary Care Provider Encounter Details Date Type Department Care Team (Late st Contact Info) Description 01/24/2019 9:00 AM EST - 01/24/2019 10:45 AM EST Surgery [place] [phone] Stacey Leblanc MD [facility] [place] [address] CYSTO, STENT PLACEMENT (WRVU 2.82) Social History [...] closest emergency room or call the hospital seamless tube mill operator at [phone] and ask for physician banquet server on call covering for your physician. Questions or problems after 5pm or on a weekend: Call the [facility] seamless tube mill operator at and ask for the physician banquet server on call covering for your doctor. * Patient Instructions* [...] stops draining please call our office at [phone] before 5PM or [phone] after hours. Call Doctor for: Please call if you have copious blood in your urine, severe back or side pain, pain not controlled by pain medications, persistent nausea and vomiting, or for any fevers greater gpus002.3 F. The number for questions is [phone] before 5 PM weekdays and [phone] after 5 PM and weekends. Pain Medication: [...] 7.5) performed by Nena Ace MD at [facility] MAIN OR ??? PRO CYSTO/URETERO/PYELOSCOPY W/LITHOTRIPSY Bilateral 12/28/2018 ?? CYSTOURETEROSCOPY, LITHOTRIPSY (WRVU 7.5) performed by Nena Ace MD at [facility] MAIN OR ??? PRO CYSTO/URETERO/PYELOSCOPY, CALCULUS TX Bilateral 11/16/2018 ?? CYSTOURETHROSCOPY WITH UTETEROSCOPY, W\REMOVAL, MANIPULATION OF CALCULUS (WRVU 6.75) performed by Nena Ace MD at [facility] OR ??? PRO CYSTOSCOPY, INSERT URETERAL STENT Bilateral 10/16/2018 ?? CYSTO, STENT PLACEMENT (WRVU 2.82) performed by Agustin Crespo MD at [facility] OR ??? PRO CYSTOSCOPY, INSERT URETERAL STENT Bilateral 11/16/2018 ?? CYSTO, STENT PLACEMENT (WRVU 2.82) performed by Nena Ace MD at [facility] OR ??? PRO CYSTOURETHROSCOPY, URETER CATHETER Bilateral 10/16/2018 ?? CYSTO, RETROGRADE, URETEROPYELOGRAPHY (WRVU 2.37) performed by Agustin Crespo MD at [facility] OR ? No current facility-administered medications [...] 7.5) performed by Nena Ace MD at [facility] OR ??? PRO CYSTO/URETERO/PYELOSCOPY W/LITHOTRIPSY Bilateral 12/28/2018 ?? CYSTOURETEROSCOPY, LITHOTRIPSY (WRVU 7.5) performed by Nena Ace MD at [facility] OR ??? PRO CYSTO/URETERO/PYELOSCOPY, CALCULUS TX Bilateral 11/16/2018 ?? CYSTOURETHROSCOPY WITH UTETEROSCOPY, W\REMOVAL, MANIPULATION OF CALCULUS (WRVU 6.75) performed by Nena Ace MD at [facility] OR ??? PRO CYSTOSCOPY, INSERT URETERAL STENT Bilateral 10/16/2018 ?? CYSTO, STENT PLACEMENT (WRVU 2.82) performed by Agustin Crespo MD at [facility] OR ??? PRO CYSTOSCOPY, INSERT URETERAL STENT Bilateral 11/16/2018 ?? CYSTO, STENT PLACEMENT (WRVU 2.82) performed by Nena Ace MD at [facility] MAIN OR ??? PRO CYSTOURETHROSCOPY, URETER CATHETER Bilateral 10/16/2018 ?? CYSTO, RETROGRADE, URETEROPYELOGRAPHY (WRVU 2.37) performed by Agustin Crespo MD at [facility] MAIN OR ? No current facility-administered [...] Leblanc MD - 01/24/2019 10:13 AM EST [facility] Operative Note Patient Name: Barbara Chapman : [id number] MR#: [id number] Case Date: 01/24/2019 Surgeon: Surgeon(s) and Role: [...] procedure. Preoperative antibiotics were administered. The 22 welsh rigid cystoscope was inserted to the bladder. [...] pollack catheter was removed and a 6 welsh by 26 centimeter double J stent was [...] Operative Note Patient Name: Barbara Chapman : [id number] MR#: [id number] Case Date: 01/24/2019 Surgeon: Surgeon(s) and Role: [...] OR USE Routine 01/24/2019 10:18 AM EST [facility] KIDNEY STONE ANALYSIS Routine 01/24/2019 9:57 AM EST Cystourethroscopy, Ureter Catheter (39175) Yes 01/24/2019 8:34 AM EST Ureteral obstruction MODIFIER HOLMIUM LASER Yes 01/24/2019 8:34 AM EST Ureteral obstruction Cysto/Uretero/Pyelo scopy, Calculus Tx (71301) Yes 01/24/2019 8:34 AM EST Ureteral obstruction Cysto/Uretero/Pyelo scopy W/Lithotripsy (90332) Yes 01/24/2019 8:34 AM EST Ureteral obstruction Cystoscopy, Insert Ureteral Stent (90629) Yes 01/24/2019 8:34 AM EST Ureteral obstruction documented in this encounter Results * XR Fluoro No Rad <1Hr - OR Use (01/24/2019 10:18 AM EST) Narrative [facility] - 01/24/2019 10:19 AM EST This exam is auto-finalizing. No interpretation was done. Stacey Leblanc MD IMG FLUORO ALISTAIRJocelyne WHITE Performing Organization Address [facility] Co de Phone Number [facility] * Kidney Stone Analysis (01/24/2019 9:57 AM EST) Kidney Stone Analysis (MAY) Test ?Result ? Flag ??Unit ??RefValue Kidney Stone Analysis ??Source: ? Right Ureter ??Interpretation ?SEE COMMENTS ?80% Calcium oxalate monohydrate ?20% Uric acid ?Test Performed by: ?[facility] ?[address] [place] [address] ?Carousel Attendant: Mario River M.D. Ph.D.; CLIA# [id number] [facility] Calculus specimen (specimen) 01/24/2019 9:57 AM EST 01/24/2019 1:41 PM EST Narrative Resulting Agency Comment Spec In Lab Stacey Leblanc MD LAB SEND OUT OR DERABLES Performing Organization Address [facility]/ZIP Co de Phone [place] [address] documented in this encounter Visit Diagnoses Not [...] mL Mini-Bag Plus (COMPLETED) 2 g, Intravenous, NAIL TECH TO O.R., 1 dose, On Christen 01/24/19 [...] cysto) documented in this encounter Care Teams Country Printer Relationship Specialty Start Date End Date Gissell Davis APRN [address] [place] [address] PCP - General Family Medicine 08/21/18 11/12/21 documented as of this encounter
--- OUTSIDE RECORDS SUMMARY | 2023-10-18 01:46 | XMS_ITS | Encounter Summary ---
Author Organization [facility] Address [facility] [place] [address] Care Team Providers Care Patient Intake Coordinator Name Role Phone Gissell Davis APRN Primary Care Provider Encounter Details Date Type Department Care Team (Latest Contact Info) Description 12/28/2018 7:38 AM EST - 12/28/2018 2:21 PM EST Hospital Encounter [place] [phone] Nena Ace MD [facility] [place] [address] Discharge Disposition: Home Social History Tobacco Use [...] 7.5) performed by Nena Ace MD at [facility] MAIN OR ??? PRO CYSTO/URETERO/PYELOSCOPY, CALCULUS TX Bilateral 11/16/2018 CYSTOURETHROSCOPY WITH UTETEROSCOPY, W\REMOVAL, MANIPULATION OF CALCULUS (WRVU 6.75) performed by Nena Ace MD at [facility] MAIN OR ??? PRO CYSTOSCOPY, INSERT URETERAL STENT Bilateral 10/16/2018 CYSTO, STENT PLACEMENT (WRVU 2.82) performed by Agustin Crespo MD at [facility] OR ??? PRO CYSTOSCOPY, INSERT URETERAL STENT Bilateral 11/16/2018 CYSTO, STENT PLACEMENT (WRVU 2.82) performed by Nena Ace MD at [facility] OR ??? PRO CYSTOURETHROSCOPY, URETER CATHETER Bilateral 10/16/2018 CYSTO, RETROGRADE, URETEROPYELOGRAPHY (WRVU 2.37) performed by Agustin Crespo MD at [facility] MAIN OR No current facility-administered medications on [...] Note ?? Patient Name: Barbara Chapman : [id number] MR#: [id number] ?? Case Date: 12/28/2018 ?? Surgeon: Surgeon(s) [...] Operative Note Patient Name: Barbara Chapman : [id number] MR#: [id number] Case Date: 12/28/2018 Surgeon: Surgeon(s) and Role: [...] Routine 12/28/2018 11:3 2 AM EST [facility] KIDNEY STONE ANALYSIS Routine 12/28/2018 11:21 AM EST HC URINE CULTURE Routine 12/28/2018 11:2 1 AM EST MODIFIER HOLMIUM LASER 12/28/2018 10:45 AM EST STONE Cysto/Uretero/Pyelos copy W/Lithotripsy ([id number]) 12/28/2018 10:45 AM EST STONE POCT GLUCOSE Routine 12/28/2018 9:40 AM EST documented in this encounter Results * SCAN DOC: IMPLANTABLE DEVICES (12/31/2018 12:00 AM EST) Narrative 12/31/2018 12:00 AM EST Ordered by an unspecified provider. Scanning Provider MEDIA MGR SCAN EXT O RDR/RSLT * POCT Glucose (12/28/2018 1:29 PM EST) Glucose, POC 141 65 - 199 mg/dL [facility] Comment: Supplemental ranges: <140 mg/dL before meals <180 mg/dL all other times of the day Blood specimen (specimen) 12/28/2018 1:29 PM EST 12/28/2018 1:29 PM EST Nena Ace MD POINT OF CARE TEST O RDERABLES Performing Organization Address [facility] de Phone Number [facility] [place] [address] * XR Fluoro No Rad <1Hr - OR Use (12/28/2018 1:14 PM EST) Narrative RAD - 12/28/2018 1:14 PM EST This exam is auto-finalizing. No interpretation was done. Nena Aec MD IMG FLUORO ORDERABLE S Performing Organization Address [facility] de Phone Number [place], [place] * Urine culture Urine (12/28/2018 11:32 AM EST) Urine Culture No growth (Less than 100 cfu/ml). [facility] Urine specimen (specimen) 12/28/2018 11:32 AM EST 12/28/2018 12:14 PM EST Comment:RIGHT RENAL PELVIC U RINE CULTURE Narrative Resulting Agency Comment Spec In Lab Nena Ace MD MICROBIOLOGY - GENER AL ORDERABLES Performing Organization Address [facility] de Phone Number [facility] [place] [address] * Kidney Stone Analysis (12/28/2018 11:21 AM EST) Kidney Stone Analysis (MAY) Test ?Result ? Flag ??Unit ??RefValue Kidney Stone Analysis ??Source: ? Right Ureter ??Interpretation ?SEE COMMENTS ?90% Calcium oxalate monohydrate ?10% Calcium oxalate dihydrate ?Test Performed by: ?[facility] ?[address] [place] [address] ?[email or web address] Java Developer: Mario River M.D. Ph.D.; CLIA# [id number] [facility] Calculus specimen (specimen) 12/28/2018 11:21 AM EST 12/28/2018 1:36 PM EST Narrative Resulting Agency Comment Spec In Lab Nena Ace MD LAB SEND OUT ORDERAB LES Performing Organization Address [facility] Co de Phone Number [facility] [place] [address] * Urine culture Cystoscopic Urine (12/28/2018 11:21 AM EST) Pathologist [facility] Urine Culture No growth (Less than 100 cfu/ml). [facility] Urine specimen (specimen) 12/28/2018 11:21 AM EST 12/28/2018 1:58 PM EST Comment:BLADDER URINE Narrative Resulting Agency Comment Spec In Lab Nena Ace MD MICROBIOLOGY - GENER AL ORDERABLES Performing Organization Address [facility] Co de Phone Number [facility] [place] [address] * POCT Glucose (12/28/2018 9:40 AM EST) Glucose, POC 126 65 - 199 mg/dL [facility] Comment: Supplemental ranges: <140 mg/dL before meals <180 mg/dL all other times of the day Blood specimen (specimen) 12/28/2018 9:40 AM EST 12/28/2018 9:40 AM EST Nena Ace MD POINT OF CARE TEST O RDERABLES [facility] [place] [address] documented in this encounter Visit Diagnoses Not [...] mL Mini-Bag Plus (COMPLETED) 2 g, Intravenous, 3RD MATE TO O.R., 1 dose, On Mon12/28/18 at [...] mg patch, Recovery (Recovery-Hospital Unit) 0930 (Due)0949 ([facility] h Not Removed (add comment) [...] Routine documented in this encounter Care Teams Patient Intake Coordinator Relationship Specialty Start Date End Date Gissell Davis APRN [address] [place] [address] PCP - General Family Medicine 08/21/18 11/12/21 documented as of this encounter
--- OUTSIDE RECORDS SUMMARY | 2023-10-18 01:47 | XMS_ITS | Encounter Summary ---
[place] [address] Care Team Providers Care Survey Research Associate Name Role Phone Carla Lieberman MD Primary Care Provider [phone] Encounter Details Date Type Department Care Team (Late st Contact Info) Description 09/06/2010 Telephone [place] [phone] Ash Pinto MD [facility] [place] [address] Social History Tobacco Use Types Packs/Day Years [...] filedocumented in this encounter Care Teams Survey Research Associate Relationship Specialty Start Date End Date Carla Lieberman MD [address] [place] [address] PCP - General 01/12/10 08/19/18 documented as of this encounter
--- OUTSIDE RECORDS SUMMARY | 2023-10-18 01:47 | XMS_ITS | Encounter Summary ---
Author Organization [facility] [place] [address] Care Team Providers Care Electronic Controls Repairer Supervisor Name Role Phone Carla Lieberman MD Primary Care Provider [phone] Reason for Visit * Reason Onset Date Comments Hemoptysis 08/26/2010 Encounter Details Date Type Department Care Team (Late st Contact Info) Description 08/26/2010 Telephone [place] [phone] Rica Zavala RN Hemoptysis Social History Tobacco [...] on filedocumented in this encounter Care Teams Electronic Controls Repairer Supervisor Relationship Specialty Start Date End Date Carla Lieberman MD [address] [place] [address] PCP - General 01/12/10 08/19/18 documented as of this encounter
--- OUTSIDE RECORDS SUMMARY | 2023-10-18 01:47 | XMS_ITS | Encounter Summary ---
Author Organization [facility] [place] [address] Care Team Providers Care Telecommunicator Supervisor Name Role Phone Gissell Davis APRN Primary Care Provider [phone] Encounter Details Date Type Department Care Team (Late st Contact Info) Description 10/15/2018 [place] [phone] [place] [address] Social History Tobacco Use Types Packs/Day Years [...] from the transfer center regarding pt at [facility] with bilateral ureteral stones and RENAE. No fevers. She is on Keflex and Rifampin for chronic knee infection. Will plan to transfer to [facility] for attempt at endoscopic intervention. Nena Ace MD documented in this encounter Plan of Treatment Not on file documented as of this encounter Visit Diagnoses Not on filedocumented in this encounter Care Teams Telecommunicator Supervisor Relationship Specialty Start Date End Date Gissell Davis APRN [address] [place] [address] PCP - General Family Medicine 08/21/18 11/12/21 documented as of this encounter
--- OUTSIDE RECORDS SUMMARY | 2023-10-18 01:47 | XMS_ITS | Encounter Summary ---
Author Organization [facility] [place] [address] Care Team Providers Care Lamp Developer Name Role Phone Carla Lieberman MD Primary Care Provider [phone] Encounter Details Date Type Department Care Team (Latest Contact Info) Description 02/15/2010 8:27 AM EST - 02/15/2010 11:59 PM EST Hospital Encounter [place] [address] Ash Pinto MD [facility] [place] [address] Discharge Disposition: Home Social History Tobacco Use [...] on filedocumented in this encounter Care Teams Lamp Developer Relationship Specialty Start Date End Date Carla Lieberman MD [address] [place] [address] PCP - General 01/12/10 08/19/18 documented as of this encounter
--- OUTSIDE RECORDS SUMMARY | 2023-10-18 01:47 | XMS_ITS | Encounter Summary ---
Author Organization [facility] [place] [address] Care Team Providers Care Smoke Control Supervisor Name Role Phone Carla Lieberman MD Primary Care Provider Encounter Details Date Type Department Care Team (Late st Contact Info) Description 08/09/2017 Ancillary Procedure [place] [phone] Gissell Davis, KENYATTA [address] [place] [address] Social History Tobacco Use Types Packs/Day Years [...] APRN IMG FILM LIBRARY ORD ERABLES [facility] [place], [place] documented in this encounter Visit Diagnoses Not on filedocumented in this encounter Care Teams Smoke Control Supervisor Relationship Specialty Start Date End Date Carla Lieberman MD [address] [place] [address] PCP - General 01/12/10 08/19/18 documented as of this encounter
--- OUTSIDE RECORDS SUMMARY | 2023-10-18 01:47 | XMS_ITS | Encounter Summary ---
Author Organization [facility] [place] [address] Care Team Providers Care Sales Trainer Name Role Phone Carla Lieberman MD Primary Care Provider [phone] Encounter Details Date Type Department Care Team (Late st Contact Info) Description 03/18/2010 8:00 AM EST Office [place] [address] Ash Pinto MD [facility] [place] [address] Discharge Disposition: Home Social History Tobacco Use [...] Gran % 0.10 0.00 - 0.66 % [facility] Comment: Immature granulocytes(IG's)percentage and absolute count will include metamyelocytes, myelocytes, and promyelocytes. Blood smears from CBCs yielding IG's will be scanned manually for concordance. If this scan disagrees with the automated IG or if promyelocytes are noted, a manual differential will be performed. Immature Gran Absolute 0.01 0.00 - 0.05 x10(3)/mcL [facility] Blood specimen (specimen) 03/18/2010 9:16 AM EST 03/18/2010 9:30 AM EST Ash Pinto MD HEMATOLOGY ORDERABLE S Performing Organization Address [facility] Phone Number [facility] * (ABNORMAL) IGA (03/18/2010 9:16 AM EST) IgA 490(H) 70 - 400 mg/dL [facility] Blood specimen (specimen) 03/18/2010 9:16 AM EST 03/18/2010 9:30 AM EST Ash Pinto MD CHEMISTRY ORDERABLES Performing Organization Address [facility] Phone Number [facility] * TISSUE TRANSGLUTAMINASE, IGA (03/18/2010 9:16 AM EST) TTG IgA Ab <4.0 <=3.9 u/ml [facility] Comment: Result Interpretation: Negative: ?<4 U/mL Weak Positive: ??4-10 U/mL Positive: ?>10 U/mL Blood specimen (specimen) 03/18/2010 9:16 AM EST 03/18/2010 11:57 AM EST Ash Pinto MD IMMUNOLOGY ORDERABLE S Performing Organization Address [facility] Phone Number [facility] * HEMOGLOBIN A1C (03/18/2010 9:16 AM EST) Hemoglobin A1c 5.6 4.3 - 6.1 % [facility] Estimated Average Glucose 114 mg/dL [facility] Comment: eAG equivalents for HbA1c percentages: [...] into estimated average glucose values. ??Diabetes Care 2008:31(8):8744-4735. Blood specimen (specimen) 03/18/2010 9:16 AM EST 03/18/2010 9:30 AM EST Ash Pinto MD CHEMISTRY ORDERABLES [facility] * SCL 70 AB-[place] (03/18/2010 9:16 AM EST) [facility] Scl-70 Ab <0.2 U [facility] Comment: -- REFERENCE VALUE -- <1.0 (Negative) > or =1.0 (Positive) Test Performed by: [place] [address] Brake Operator Sheet Metal: Princess Canales, Ph.D. Blood specimen (specimen) 03/18/2010 9:16 AM EST 03/18/2010 11:49 AM EST Ash Pinto MD LAB SEND OUT ORDERAB LES [facility] * ANTI-SMOOTH MUSCLE ANTIBODY (03/18/2010 9:16 AM EST) Sm Muscle Ab (JUNE) Negative Negative [facility] Comment: Test Performed by: [facility] Dpt of Lab Med and Pathology [address] [place] [address] Brake Operator Sheet Metal: Aaron Lechuga III, M.D. Blood specimen (specimen) 03/18/2010 9:16 AM EST 03/18/2010 11:48 AM EST Ash Pinto MD LAB SEND OUT ORDERAB LES Performing Organization Address [facility] Co de Phone Number [facility] * MITOCHONDRIAL ANTIBODIES, M2 (03/18/2010 9:16 AM EST) Mitochon Ab (JUNE) <0.1 <0.1 U [facility] Comment: Interpretation: Negative (<0.1) Test Performed by: [facility] Dpt of Lab Med and Pathology [address] [place] [address] Brake Operator Sheet Metal: Aaron Lechuga III, M.D. Blood specimen (specimen) 03/18/2010 9:16 AM EST 03/18/2010 11:48 AM EST Ash Pinto MD LAB SEND OUT ORDERAB LES Performing Organization Address City/[facility]/ZIP Co de Phone Number [facility] * EVERT (03/18/2010 9:16 AM EST) EVERT Neg Neg [facility] Blood specimen (specimen) 03/18/2010 9:16 AM EST 03/18/2010 11:57 AM EST Ash Pinto MD LAB SEND OUT ORDERAB LES [facility] * SEDIMENTATION RATE, AUTOMATED (03/18/2010 9:16 AM EST) Sedimentation Rate Automated 15 0 - 20 mm/hr [facility] Blood specimen (specimen) 03/18/2010 9:16 AM EST 03/18/2010 9:30 AM EST Ash Pinto MD HEMATOLOGY ORDERABLE S Performing Organization Address [facility] Co de Phone Number CERANTONIO [...] MD HEMATOLOGY ORDERABLE S Performing Organization Address City/[facility]/ZIP Co de Phone Number [facility] * CORTISOL (03/18/2010 9:16 AM EST) Cortisol 6.6 mcg/dL [facility] Comment: Reference ranges: ??AM (7-10am): ??6.2-19.4 mcg/dL ??PM (4-8pm): ??2.3-12.3 mcg/dL Blood specimen (specimen) 03/18/2010 9:16 AM EST 03/18/2010 9:30 AM EST Ash Pinto MD CHEMISTRY ORDERABLES Performing Organization Address [facility] de Phone Number [facility] * LIPASE (03/18/2010 9:16 AM EST) Lipase 21 0 - 60 unit/L [facility] Blood specimen (specimen) 03/18/2010 9:16 AM EST 03/18/2010 9:30 AM EST Ash Pinto MD CHEMISTRY ORDERABLES Performing Organization Address [facility] Phone Number [facility] * PHOSPHORUS (03/18/2010 9:16 AM EST) Phosphorus 3.1 2.5 - 4.5 mg/dL [facility] Blood specimen (specimen) 03/18/2010 9:16 AM EST 03/18/2010 9:30 AM EST Ash Pinto MD CHEMISTRY ORDERABLES Performing Organization Address [facility] de Phone Number [facility] * MAGNESIUM (03/18/2010 9:16 AM EST) Magnesium 0.88 0.69 - 1.07 mmol/L [facility] Blood specimen (specimen) 03/18/2010 9:16 AM EST 03/18/2010 9:30 AM EST Ash Pinto MD CHEMISTRY ORDERABLES Performing Organization Address [facility] de Phone Number JANNA VOGEL * [...] Pinto MD CHEMISTRY ORDERABLES Performing Organization Address City/State/[facility] Phone Number [facility] documented in this encounter Visit Diagnoses Not on filedocumented in this encounter Care Teams Sales Trainer Relationship Specialty Start Date End Date Carla Lieberman MD [address] [place] [address] PCP - General 01/12/10 08/19/18 documented as of this encounter
--- OUTSIDE RECORDS SUMMARY | 2023-10-18 01:47 | XMS_ITS | Encounter Summary ---
[place] [address] Care Team Providers Care Satellite Specialist Name Role Phone Carla Lieberman MD Primary Care Provider [phone] Encounter Details Date Type Department Care Team (Late st Contact Info) Description 10/19/2017 Ancillary Procedure [place] [id number] Gissell Davis, [place] [address] [place] [address] Social History Tobacco Use Types Packs/Day Years [...] APRN IMG FILM LIBRARY ORD ERABLES DH [place], [place] documented in this encounter Visit Diagnoses Not on filedocumented in this encounter Care Teams Satellite Specialist Relationship Specialty Start Date End Date Carla Lieberman MD [address] [place] [address] PCP - General 01/12/10 08/19/18 documented as of this encounter
--- OUTSIDE RECORDS SUMMARY | 2023-10-18 01:47 | XMS_ITS | Encounter Summary ---
Author Organization [facility] Address [facility] [place] [address] Care Team Providers Care Director Of Claims Name Role Phone Carla Lieberman MD Primary Care Provider [phone] Encounter Details Date Type Department Care Team (Late st Contact Info) Description 01/03/2018 Ancillary Procedure [place] [phone] Gissell Davis, [place] [address] [place] [address] Social History Tobacco Use Types Packs/Day Years [...] APRN IMG FILM LIBRARY ORD ERABLES DH [place], [place] documented in this encounter Visit Diagnoses Not on filedocumented in this encounter Care Teams Director Of Claims Relationship Specialty Start Date End Date Carla Lieberman MD [address] [place] [address] PCP - General 01/12/10 08/19/18 documented as of this encounter
--- OUTSIDE RECORDS SUMMARY | 2023-10-18 01:47 | XMS_ITS | Encounter Summary ---
Author Organization [facility] [place] [address] Care Team Providers Care Proprietary Trader Name Role Phone Carla Lieberman MD Primary Care Provider [phone] Reason for Visit * Reason Comments Emesis Encounter Details Date Type Department Care Team (Late st Contact Info) Description 07/08/2010 11:30 AM EDT [place] [phone] Ash Pinto MD [facility] [place] [address] Gastroparesis (Primary Dx) Discharge Disposition: Home Social [...] Primary documented in this encounter Care Teams Proprietary Trader Relationship Specialty Start Date End Date Carla Lieberman MD [address] [place] [address] PCP - General 01/12/10 08/19/18 documented as of this encounter
--- OUTSIDE RECORDS SUMMARY | 2023-10-18 01:47 | XMS_ITS | Encounter Summary ---
Author Organization [facility] Address [facility] [place] [address] Care Team Providers Care Security Installation Sales Technician Name Role Phone Carla Lieberman MD Primary Care Provider [phone] Encounter Details Date Type Department Care Team (Late st Contact Info) Description 03/24/2017 Ancillary Procedure [place] [phone] Gissell Davis, [place] [address] [place] [address] Social History Tobacco Use Types Packs/Day Years [...] APRN IMG FILM LIBRARY ORD ERABLES DH [place], [place] documented in this encounter Visit Diagnoses Not on filedocumented in this encounter Care Teams Security Installation Sales Technician Relationship Specialty Start Date End Date Carla Lieberman MD [address] [place] [address] PCP - General 01/12/10 08/19/18 documented as of this encounter
--- OUTSIDE RECORDS SUMMARY | 2023-10-18 01:47 | XMS_ITS | Encounter Summary ---
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 Language: Kinyarwanda Race: White Ethnicity: Not nor Admit date: [...] joint infection and revision who presented to [facility] with flank pain andfound to have bilateral obstructive nephrolithiasis and acute kidney injury. ?? Ms. Chapman states that she developed flank pain about 2 days ago that radiated to her groin. She denied any fevers or chills. She has no history of nephrolithiasis. She denies any irritative voiding/LUTS or hematuria. CT imaging at [facility] showed bilateral ureteral stones. She was afebrile and hemodynamically stable upon admission. Her WBC was 11 and her creatinine was 3.64. UA was negative for nitrites, positive for trace leukocyte esterase and 5-10 WBC with many squams. This did not reflex for culture. Given her RENAE and bilateral stone burden, she was transferred to [facility] for further urologic care. ?? Upon arrival, Ms. Chapman is hemodynamically stable and afebrile. She states that her pain improved after fentanyl. She is unable to take NSAIDs given her fundoplication. She is currently comfortable,but states that the pain at its worst is unbearable. Hospital Course: Patient was admitted to [facility] from [facility] and underwent the above procedure. [...] to urinate please call our office at [phone] before 5PM or [phone] after hours. Kidney Stone Patients: Try and [...] side pain, you should call our office [phone] before 5PM or [phone] after hours. Call Doctor for: Please call if you have copious blood in your urine, severe back or side pain, pain not controlled by pain medications, persistent nausea and vomiting, or for any fevers greater [id number] F. The number for questions is [phone] before 5 PM weekdays and [phone] after 5 PM and weekends. Pain Medication: No driving for 8 hours after any dose of opioid pain medication if one was prescribed for you. You may use ibuprofen (motrin, advil) in addition to this medication if your pain is not totally controlled by the opioid. Follow-up: Please call [phone] (clinic number for appointments) to confirm date [...] PM Reggie Hull MD Infectious Disease at [facility] Arrive at: Voice Intercept Technician Area [phone] Follow-Up: Future Appointments Date Time Provider Department Center 12/04/2018 12:30 PM Reggie Hull MD [facility] [address] [place] [address] Primary Care Provider: Gissell Davis, MACHINE OPERATOR REPLANTER [phone] Follow-up Recommendations for Providers: Please see discharge [...] was managed by the Urology Team at [facility]. If you have any questions or concerns, please feel free to contact us. Provider Contact Information: Urology Clinic: [facility] (after business hours): documented in this encounter [...] to urinate please call our office at [phone] before 5PM or [phone] after hours. Kidney Stone Patients: Try and [...] side pain, you should call our office [phone] before 5PM or [phone] after hours. Call Doctor for: Please call if you have copious blood in your urine, severe back or side pain, pain not controlled by pain medications, persistent nausea and vomiting, or for any fevers greater xwik124.3 F. The number for questions is [phone] before 5 PM weekdays and [phone] after 5 PM and weekends. Pain Medication: No driving for 8 hours after any dose of opioid pain medication if one was prescribed for you. You may use ibuprofen (motrin, advil) in addition to this medication if your pain is not totally controlled by the opioid. Follow-up: Please call [phone] (clinic number for appointments) to confirm date [...] Fay arrived to 403A via stretcher from [facility]. No report received from facility - follow up phone call made. Ambulated with SBA to 403A bed. VSS. Masimo initiated. See EDH for assessment, will continueto monitor. documented in this encounter H&P Notes * Sara Lindquist PA - 10/16/2018 12:16 PM EDT 24 hour interval history and physical exam: Barbara Chapmna's condition unchanged since H&P originally performed yesterday [...] joint infection and revision who presented to [facility] with flank pain andfound to have bilateral obstructive nephrolithiasis and acute kidney injury. Ms. Chapman states that she developed flank pain about 2 days ago that radiated to her groin. She denied any fevers or chills. She has no history of nephrolithiasis. She denies any irritative voiding/LUTS or hematuria. CT imaging at [facility] showed bilateral ureteral stones. She was afebrile and hemodynamically stable upon admission. Her WBC was 11 and her creatinine was 3.64. UA was negative for nitrites, positive for trace leuk esterase and 5-10 WBC with many squams. This did not reflex for culture. Given her RENAE and bilateral stone burden, she was transferred to [facility] for further urologic care. Upon arrival, Ms. [...] file Gets together: Not on file Attends protestant service: Not on file Active member of [...] 22 BUN 20* CREATININE 2.99* Microbiology: UA [facility] 10/15: negative for nitrites, positive for trace leuk esterase and 5-10 WBC with many squams. No reflex. 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 Ace. Dariela Tom Urology, PGY-2 Consult pager #[phone] Associated attestation - Nena Ace MD - [...] Edwards MD - 10/16/2018 5:32 PM EDT [facility] Operative Note Patient Name: Barbara Chapman : [id number] MR#: [id number] ?? Case Date: 10/16/2018 ?? Surgeon: Surgeon(s) [...] Operative Note Patient Name: Barbara Chapman : [id number] MR#: [id number] Case Date: 10/16/2018 Surgeon: Surgeon(s) and Role: [...] -- * Consult Note - Ángela Cabral, [facility] - 10/16/2018 8:25 AM EDT Clinical Pharmacist Note - Renal Dose Adjustment for Antimicrobials Barbara Chapman (A# [id number]) is being treated with the following antimicrobial [...] joint infection and revision who presented to [facility] with flank pain and found to have [...] Primary care provider on file: Gissell Davis, MACHINE OPERATOR REPLANTER [phone] Advance Directive on file and Code Status: Full Code Patient???s Functional Status: Independent Living Situation: [address] [place] [address] Supports: Assessment: Patient with no apparent RNCM/SW needs at this time. No housing, transportation, insurance, resources concerns identified at this time. Supports in place to achieve a safe post-hospital transition. No identified barriers to accessing necessary care and/or follow-up after discharge. Plan: Patient to d/c home via personal car when medically ready. mobility architect manager/Edger Machine Helper will continue to follow patient???s progress and remain available if situation changes for coordination of care, psychosocial support and/or discharge planning. Lima Morales, RN Pager [phone] * Plan of Care - Yaneli Gómez [...] 10/16/2018 5:27 PM EDT Cystourethroscopy, Ureter Catheter ([id number]) 10/16/2018 4:34 PM EDT Bilateral nephrolithiasis Cystoscopy, Insert Ureteral Stent ([id number]) 10/16/2018 4:34 PM EDT Bilateral nephrolithiasis POCT [...] EDT) Glucose 110 65 - 199 mg/dL [facility] Comment:Diabetes: >=200 mg/d L plus symptoms Blood Urea Nitrogen 16 8 - 18 mg/dL [facility] Creatinine 1.95(H) 0.70 - 1.20 mg/dL [facility] Comment:result rechecked-ssd Sodium 141 135 - 145 mmol/L [facility] Potassium 3.3(L) 3.5 - 5.0 mmol/L [facility] Comment: Please note: ??Patients with WBC >100,000 may have falsely elevated Potassium levels. ??For accurate Potassium quantification in these patients send serum separator tube (gold top) for subsequent determinations. ??Contact the Clinical Chemistry Laboratory if there are any questions. Chloride 104 98 - 107 mmol/L [facility] Carbon Dioxide 26 22 - 31 mmol/L [facility] Anion Gap 11 5 - 15 mmol/L [facility] Calcium 8.7 8.5 - 10.5 mg/dL [facility] Est Glomerular Filtration Rate 29(L) >=60 mL/min/1. 73 m?? [facility] Comment: The eGFR was calculated using the CKD-EPI equation. As with all creatinine based estimates of kidney function, eGFR values calculated with the CKD-EPI equation are not accurate in patients with acute kidney failure, extremes of body mass or the acutely ill. [email or web address]/[email or web address] eGFR 34(L) >=60 mL/min/1. 73 m?? [facility] Comment: The eGFR was calculated using the CKD-EPI equation. As with all creatinine based estimates of kidney function, eGFR values calculated with the CKD-EPI equation are not accurate in patients with acute kidney failure, extremes of body mass or the acutely ill. [email or web address][email or web address] Blood specimen (specimen) 10/17/2018 5:08 AM EDT 10/17/2018 5:22 AM EDT Narrative Resulting Agency Comment Spec In Lab Nena Ace MD CHEMISTRY ORDERABLES Performing Organization Address [facility] Co de Phone Number [facility] [place] [address] * POCT Glucose (10/17/2018 4:38 AM EDT) Glucose, POC 102 65 - 199 mg/dL [facility] Comment: Supplemental ranges: <140 mg/dL before meals <180 mg/dL all other times of the day Blood specimen (specimen) 10/17/2018 4:38 AM EDT 10/17/2018 4:38 AM EDT Nena Ace MD POINT OF CARE TEST O RDERABLES Performing Organization Address [facility]/ZIP Co de Phone Number [facility] [place] [address] * POCT Glucose (10/16/2018 11:48 PM EDT) Glucose, POC 133 65 - 199 mg/dL [facility] Comment: Supplemental ranges: <140 mg/dL before meals <180 mg/dL all other times of the day Blood specimen (specimen) 10/16/2018 11:48 PM EDT 10/16/2018 11:48 PM EDT Nena Ace MD POINT OF CARE TEST O RDERAANN Performing Organization Address [facility] Co de Phone Number [facility] [place] [address] * POCT Glucose (10/16/2018 8:06 PM EDT) Glucose, POC 173 65 - 199 mg/dL [facility] Comment: Supplemental ranges: <140 mg/dL before meals <180 mg/dL all other times of the day Blood specimen (specimen) 10/16/2018 8:06 PM EDT 10/16/2018 8:06 PM EDT Nena Ace MD POINT OF CARE TEST O CAITERAANN Performing Organization Address [facility] Co de Phone Number [facility] [place] [address] * POCT Glucose (10/16/2018 5:52 PM EDT) Glucose, POC 149 65 - 199 mg/dL [facility] Comment: Supplemental ranges: <140 mg/dL before meals <180 mg/dL all other times of the day Blood specimen (specimen) 10/16/2018 5:52 PM EDT 10/16/2018 5:52 PM EDT Nena Ace MD POINT OF CARE TEST O CAITERAANN Performing Organization Address [facility] Co de Phone Number [facility] [place] [address] * POCT Glucose (10/16/2018 4:18 PM EDT) Glucose, POC 114 65 - 199 mg/dL [facility] Comment: Supplemental ranges: <140 mg/dL before meals <180 mg/dL all other times of the day Blood specimen (specimen) 10/16/2018 4:18 PM EDT 10/16/2018 4:18 PM EDT Nena Ace MD POINT OF CARE TEST O RDERABLES Performing Organization Address [facility] Co de Phone Number [facility] [place] [address] * POCT Glucose (10/16/2018 11:43 AM EDT) Glucose, POC 123 65 - 199 mg/dL [facility] Comment: Supplemental ranges: <140 mg/dL before meals <180 mg/dL all other times of the day Blood specimen (specimen) 10/16/2018 11:43 AM EDT 10/16/2018 11:43 AM EDT Nena Ace MD POINT OF CARE TEST O RDERAANN Performing Organization Address [facility] de Phone Number [facility] [place] [address] * POCT Glucose (10/16/2018 8:07 AM EDT) Glucose, POC 134 65 - 199 mg/dL [facility] Comment: Supplemental ranges: <140 mg/dL before meals <180 mg/dL all other times of the day Blood specimen (specimen) 10/16/2018 8:07 AM EDT 10/16/2018 8:07 AM EDT Nena Ace MD POINT OF CARE TEST O RDERAANN Performing Organization Address [facility] Co de Phone Number [facility] [place] [address] * POCT Glucose (10/16/2018 3:21 AM EDT) Glucose, POC 104 65 - 199 mg/dL [facility] Comment: Supplemental ranges: <140 mg/dL before meals <180 mg/dL all other times of the day Blood specimen (specimen) 10/16/2018 3:21 AM EDT 10/16/2018 3:21 AM EDT Nena Ace MD POINT OF CARE TEST O RDERABLES Performing Organization Address [facility] Co de Phone Number [facility] [place] [address] * POCT Glucose (10/15/2018 11:33 PM EDT) Glucose, POC 155 65 - 199 mg/dL [facility] Comment: Supplemental ranges: <140 mg/dL before meals <180 mg/dL all other times of the day Blood specimen (specimen) 10/15/2018 11:33 PM EDT 10/15/2018 11:33 PM EDT Nena Ace MD POINT OF CARE TEST O RDERABLES Performing Organization Address [facility] Co de Phone Number [facility] [place] [address] * POCT Glucose (10/15/2018 7:16 PM EDT) Glucose, POC 118 65 - 199 mg/dL [facility] Comment: Supplemental ranges: <140 mg/dL before meals <180 mg/dL all other times of the day Blood specimen (specimen) 10/15/2018 7:16 PM EDT 10/15/2018 7:16 PM EDT Nena Ace MD POINT OF CARE TEST O RDERABLES Performing Organization Address [facility] Co de Phone Number [facility] [place] [address] * POCT Glucose (10/15/2018 4:06 PM EDT) Glucose, POC 104 65 - 199 mg/dL [facility] Comment: Supplemental ranges: <140 mg/dL before meals <180 mg/dL all other times of the day Blood specimen (specimen) 10/15/2018 4:06 PM EDT 10/15/2018 4:06 PM EDT Nena Ace MD POINT [place] [address] * (ABNORMAL) Differential, Automated (10/15/2018 3:34 PM EDT) Neutrophil % 69.5 % [facility] Neutrophil Absolute 6.68(H) 1.70 - 6.10 x10(3)/mc L [facility] Lymph % 17.5 % [facility] Lymphocytes Abs 1.7 0.9 - 3.2 x10(3)/ L [facility] Monocyte % 11.6 % [facility] Monocyte Abs 1.1(H) 0.3 - 0.9 x10(3)/ L [facility] Eos % 1.0 % [facility] Eosinophils Abs 0.1 0.0 - 0.4 x10(3)/[facility] Basophil % 0.1 % [facility] Baso Absolute 0.0 0.0 - 0.1 x10(3)/ L [facility] Immature Gran % 0.30 % [facility] Comment: Immature granulocytes(IG's)percentage and absolute count will include metamyelocytes, myelocytes, and promyelocytes. Blood smears from CBCs yielding IG's will be scanned manually for concordance. If this scan disagrees with the automated IG or if promyelocytes are noted, a manual differential will be performed. Immature Gran Absolute 0.03 0.00 - 0.04 x10(3)/ L [facility] Blood specimen (specimen) 10/15/2018 3:34 PM EDT 10/15/2018 3:45 PM EDT Narrative Resulting Agency Comment Spec In Lab Dariela Tom MD HEMATOLOGY ORDERABLE S Performing Organization Address City/[facility]/ZIP Co de Phone Number [facility] [place] [address] * (ABNORMAL) Hemogram (10/15/2018 3:34 PM EDT) [facility] White Blood Cell 9.6(H) 4.0 - 9.5 x10(3)/[facility] Red Blood Cell 3.33(L) 4.00 - 5.21 x10(6)/[facility] Hemoglobin 10.7(L) 11.7 - 15.5 gm/dL [facility] Hematocrit 31.4(L) 35.7 - 45.8 % [facility] Mean Cell Volume 94.3 82.6 - 94.4 fL [facility] Mean Cell Hemoglobin 32.1(H) 27.1 - 32.0 pg [facility] Mean Cell Hemoglobin Concentration 34.1 31.7 - 35.0 gm/dL [facility] Platelet 237 145 - 357 x10(3)/[facility] RDW Standard Deviation 50.2(H) 37.0 - 46.0 [facility] RDW coefficient of variation 14.6(H) 11.5 - 14.1 % [facility] Mean Platelet Volume 10.2 7.6 - 12.9 fL [facility] NRBC% auto 0.0 % [facility] NRBC Absolute 0.000 0.000 - 0.000 x10(3)/[facility] Blood specimen (specimen) 10/15/2018 3:34 PM EDT 10/15/2018 3:45 PM EDT Narrative Resulting Agency Comment Spec In Lab Dariela Tom MD HEMATOLOGY ORDERABLE S [facility] [place] [address] * (ABNORMAL) Basic Metabolic Panel (non-fasting) (10/15/2018 3:34 PM EDT) Glucose 110 65 - 199 mg/dL [facility] Comment:Diabetes: >=200 mg/d L plus symptoms Blood Urea Nitrogen 20(H) 8 - 18 mg/dL [facility] Creatinine 2.99(H) 0.70 - 1.20 mg/dL [facility] Sodium 143 135 - 145 mmol/L [facility] Potassium 3.6 3.5 - 5.0 mmol/L [facility] Comment: Please note: ??Patients with WBC >100,000 may have falsely elevated Potassium levels. ??For accurate Potassium quantification in these patients send serum separator tube (gold top) for subsequent determinations. ??Contact the Clinical Chemistry Laboratory if there are any questions. Chloride 107 98 - 107 mmol/L [facility] Carbon Dioxide 22 22 - 31 mmol/L [facility] Anion Gap 14 5 - 15 mmol/L [facility] Calcium 8.0(L) 8.5 - 10.5 mg/dL [facility] Est Glomerular Filtration Rate 18(L) >=60 mL/min/1. 73 m?? [facility] Comment: The eGFR was calculated using the CKD-EPI equation. As with all creatinine based estimates of kidney function, eGFR values calculated with the CKD-EPI equation are not accurate in patients with acute kidney failure, extremes of body mass or the acutely ill. [email or web address] eGFR 20(L) >=60 mL/min/1. 73 m?? [facility] Comment: The eGFR was calculated using the CKD-EPI equation. As with all creatinine based estimates of kidney function, eGFR values calculated with the CKD-EPI equation are not accurate in patients with acute kidney failure, extremes of body mass or the acutely ill. [email or web address] Blood specimen (specimen) 10/15/2018 3:34 PM EDT 10/15/2018 3:45 PM EDT Narrative Resulting Agency Comment Spec In Lab Nena Ace MD CHEMISTRY ORDERABLES [facility] [place] [address] * Urinalysis with reflex Culture (10/15/2018 3:27 PM EDT) Glucose, Urine Dipstick Negative Negative mg/dL [facility] Protein, Urine Dipstick Negative Negative mg/dL [facility] Bilirubin, Urine Dipstick Negative Negative mg/dL [facility] Comment: Clinical correlation required for positive Urine Bilirubin results as false positive may occur with some drugs and drug related products. If a false positive is suspected a serum total bilirubin should be considered if clinically indicated. Urobilinogen, Urine Dipstick Normal Normal mg/dL [facility] pH, Urn (dipstick) 5.0 5.0 - 8.0 [facility] Blood, Urine Dipstick Negative Negative mg/dL [facility] Ketone, Urine Dipstick Negative Negative mg/dL [facility] Nitrite, Urine Dipstick Negative Negative [facility] Leukocytes, Urine Dipstick Negative Negative [facility] Appearance, Urine Dipstick Clear Clear [facility] Specific [place] Urine Automated 1.013 1.002 - 1.030 [facility] Color, Urine Dipstick Yellow Yellow [facility] Reflex to Culture No [facility] Urine specimen obtained by clean catch procedure (specimen) 10/15/2018 3:27 PM EDT 10/15/2018 3:48 PM EDT Narrative Resulting Agency Comment Spec In Lab Nena Ace MD URINE ORDERABLES Performing Organization Address [facility] Co de Phone Number [facility] [place] [address] documented in this encounter Visit Diagnoses Not [...] 5% 200 mL (COMPLETED) 400 mg, Intravenous, PRICK STITCHER TO O.R., 1 dose, On Mon10/16/18 at [...] BG 155) 0400 (Not Given - Provider: Yanlei Gómez RN - Reason: Order parameters not met - Comment: BG 104)0800 (Not Given - Provider: Sarah Pappas RN - Reason: Order parameters not met)1200 (Not Given - Provider: Sarah Pappas RN - Reason: Order parameters not met)1600 (Not Given - Provider: Sarah Pappas RN - Reason: Order parameters not met)163 ([facility] Hold - Provider: [facility] - Provider: Admin Adt)2049 (Given - [...] - Provider: Sarah Pappas, RADHA) 1634 ([facility] Hold - [...] on this medication record., Routine 163 ([facility] Hold [...] first. documented in this encounter Care Teams Leaf Stripper Relationship Specialty Start Date End Date Gissell Davis, KENYATTA [address] [place] [address] [address] [place] [address] PCP - General Family Medicine 08/21/18 11/12/21 documented as of this encounter
--- OUTSIDE RECORDS SUMMARY | 2023-10-18 01:47 | XMS_ITS | Encounter Summary ---
Author Organization [facility] [place] [address] Care Team Providers Care Electric Meter Technician Name Role Phone Carla Lieberman MD Primary Care Provider Encounter Details Date Type Department Care Team (Late st Contact Info) Description 03/19/2018 Ancillary Procedure [place] [id number] Gissell Davis, KENYATTA [address] [place] [address] Social History Tobacco Use Types Packs/Day Years [...] APRN IMG FILM LIBRARY ORD ERABLES [facility] [place] documented in this encounter Visit Diagnoses Not on filedocumented in this encounter Care Teams Electric Meter Technician Relationship Specialty Start Date End Date Carla Lieberman MD [address] [place] [address] PCP - General 01/12/10 08/19/18 documented as of this encounter
--- OUTSIDE RECORDS SUMMARY | 2023-10-18 01:47 | XMS_ITS | Encounter Summary ---
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 Referral ID Status Reason Start Date Expiration Date Visits Re quested Visits Authorized [id number] 1 1 Encounter Details Date Type Department Care Team (Late st Contact Info) Description 10/16/2018 4:38 PM EDT Anesthesia Event [place] [phone] Kenneth Peterson MD [facility] [place] [address] León Trujillo MD [facility] [place] [address] Anesthesia Record Procedure Summary Procedure Name Responsible [...] Procedure Summary Date: 10/16/18 Room / Location: [facility] OR [facility] MAIN OR Anesthesia Start: 1638 Anesthesia Stop: 1746 Procedures: CYSTO, STENT PLACEMENT (WRVU 2.82) (Bilateral Ureter) CYSTO, RETROGRADE, URETEROPYELOGRAPHY (WRVU 2.37) (Bilateral Ureter) Diagnosis: (Bilateral nephrolithiasis) Surgeon: Agustin Crespo MD Responsible Provider: Kenneth Peterson MD Anesthesia Type: general ASA Status: 2 All Anesthesia Providers: Anesthesiologist: Kenneth Peterson MD Piece Meat Trimmer: Mario Simpson MD Vitals Value Taken Time BP Temp Pulse 76 10/16/2018 5:45 PM Resp SpO2 99 % 10/16/2018 5:45 PM Pain Level Vitals shown include unvalidated device data. Patient Location: PACU/[facility] Level of Consciousness: Awake and Alert [...] IV access Mario Simpson MD CA-1 Pager #[phone] Patrol Officer (MD Ilya RUIZ MPH) Agree with Dr [...] dextrose 5% 200 mL 400 mg, Intravenous, RETAIL EVENT AND SALES ASSISTANT TO [employer]R., 1 dose, On Mon10/16/18 at [...] mg documented in this encounter Care Teams Motion Graphics Artist Relationship Specialty Start Date End Date Gissell Davis, AUDIO VISUAL SPECIALIST [address] [place] [address] PCP - General Family Medicine 08/21/18 11/12/21 documented as of this encounter
--- OUTSIDE RECORDS SUMMARY | 2023-10-18 01:47 | XMS_ITS | Encounter Summary ---
Author Organization [facility] Address [facility] [place] [address] Care Team Providers Care Change Agent Name Role Phone Carla Lieberman MD Primary Care Provider [phone] Encounter Details Date Type Department Care Team (Late st Contact Info) Description 04/03/2017 Ancillary Procedure [place] [phone] Gissell Davis, KENYATTA [address] [place] [address] Social History Tobacco Use Types Packs/Day Years [...] APRN IMG FILM LIBRARY ORD ERABLES DH [place], [place] documented in this encounter Visit Diagnoses Not on filedocumented in this encounter Care Teams Change Agent Relationship Specialty Start Date End Date Carla Lieberman MD [address] [place] [address] PCP - General 01/12/10 08/19/18 documented as of this encounter
--- OUTSIDE RECORDS SUMMARY | 2023-10-18 01:47 | XMS_ITS | Encounter Summary ---
[place] [address] Care Team Providers Care Carpet Layer Name Role Phone Carla Lieberman MD Primary Care Provider [phone] Encounter Details Date Type Department Care Team (Late st Contact Info) Description 07/19/2017 Ancillary Procedure [place] [phone] Gissell Davis, KENYATTA [address] [place] [address] Social History Tobacco Use Types Packs/Day Years [...] APRN IMG FILM LIBRARY ORD ERABLES [place], [place] documented in this encounter Visit Diagnoses Not on filedocumented in this encounter Care Teams Carpet Layer Relationship Specialty Start Date End Date Carla Lieberman MD [address] [place] [address] PCP - General 01/12/10 08/19/18 documented as of this encounter
--- OUTSIDE RECORDS SUMMARY | 2023-10-18 01:47 | XMS_ITS | Encounter Summary ---
[place] [address] Care Team Providers Care Intermediate Designer Name Role Phone Carla Lieberman MD Primary Care Provider [phone] Encounter Details Date Type Department Care Team (Late st Contact Info) Description 12/22/2017 Ancillary Procedure [place] [phone] Gissell Davis, KENYATTA [address] [place] [address] Social History Tobacco Use Types Packs/Day Years [...] APRN IMG FILM LIBRARY ORD ERABLES DH [place], [place] documented in this encounter Visit Diagnoses Not on filedocumented in this encounter Care Teams Intermediate Designer Relationship Specialty Start Date End Date Carla Lieberman MD [address] [place] [address] PCP - General 01/12/10 08/19/18 documented as of this encounter
--- OUTSIDE RECORDS SUMMARY | 2023-10-18 01:47 | XMS_ITS | Encounter Summary ---
Author Organization [facility] [place] [address] Care Team Providers Care Hat And Cap Sewer Name Role Phone Carla Lieberman MD Primary Care Provider [phone] Encounter Details Date Type Department Care Team (Late st Contact Info) Description 01/13/2010 2:30 PM EST Follow-[place] [address] Kassy Ortiz APRN [facility] GASTROENTER[place] [address] Social History Tobacco Use Types Packs/Day Years Used Date Smoking Tobacco: Never Assessed Sex and Gender Information Value Date Recorded Sex Assigned at Not on file Gender Identity Not on file Sexual Orientation Not on file documented as of this encounter Plan of Treatment Not on file documented as of this encounter Visit Diagnoses Not on filedocumented in this encounter Care Teams Hat And Cap Sewer Relationship Specialty Start Date End Date Carla Lieberman MD [address] [place] [address] PCP - General 01/12/10 08/19/18 documented as of this encounter
--- OUTSIDE RECORDS SUMMARY | 2023-10-18 01:47 | XMS_ITS | Encounter Summary ---
Author Organization [facility] [place] [address] Care Team Providers Care Basket Mender Name Role Phone Carla Lieberman MD Primary Care Provider [phone] Reason for Visit * Reason Onset Date Comments Other 07/08/2010 Encounter Details Date Type Department Care Team (Late st Contact Info) Description 07/08/2010 Telephone [place] [phone] Ash Pinto MD [facility] DR [place] [address] Other Social History Tobacco Use Types Packs/Day [...] on filedocumented in this encounter Care Teams Basket Mender Relationship Specialty Start Date End Date Carla Lieberman MD [address] [place] [address] PCP - General 01/12/10 08/19/18 documented as of this encounter
--- OUTSIDE RECORDS SUMMARY | 2023-10-18 01:47 | XMS_ITS | Encounter Summary ---
[place] [address] Care Team Providers Care Clinical Technologist Name Role Phone Carla Lieberman MD Primary Care Provider Encounter Details Date Type Department Care Team (Latest Contact Info) Description 02/15/2010 8:00 AM EST Procedure visit [place] [address] CLINIC, Carla Guo, timber appraiser Disposition: Home Social History Tobacco Use Types [...] on filedocumented in this encounter Care Teams Clinical Technologist Relationship Specialty Start Date End Date Carla Lieberman MD [address] [place] [address] PCP - General 01/12/10 08/19/18 documented as of this encounter
--- OUTSIDE RECORDS SUMMARY | 2023-10-18 01:47 | XMS_ITS | Encounter Summary ---
Author Organization [facility] [place] [address] Care Team Providers Care Flour Worker Name Role Phone Sarthaklinus Gissell J KENYATTA Primary Care Provider Encounter Details Date Type Department Care Team (Late st Contact Info) Description 10/15/2018 10:50 AM EDT Ancillary Procedure [place] [phone] Nena Ace MD [facility] [place] [address] Social History Tobacco Use Types Packs/Day Years [...] CT Abdomen (10/15/2018 10:46 AM EDT) Narrative [facility] - 10/15/2018 10:46 AM EDT This exam is auto-finalizing. It's purpose is for storage only. Nena Ace MD G FILM LIBRARY ORD ERABLES Performing Organization Address City/State/[facility] Co de Phone Number DH RAD [place], [place] documented in this encounter Visit Diagnoses Not on filedocumented in this encounter Care Teams Flour Worker Relationship Specialty Start Date End Date Gissell Davis APRN [address] [place] [address] PCP - General Family Medicine 08/21/18 11/12/21 documented as of this encounter
--- OUTSIDE RECORDS SUMMARY | 2023-10-18 01:47 | XMS_ITS | Encounter Summary ---
[place] [address] Care Team Providers Care Postmaster Name Role Phone Carla Lieberman MD Primary Care Provider [phone] Encounter Details Date Type Department Care Team (Late st Contact Info) Description 08/11/2017 Ancillary Procedure [place] [phone] Gissell Davis, KENYATTA [address] [place] [address] Social History Tobacco Use Types Packs/Day Years [...] APRN IMG FILM LIBRARY ORD ERABLES DH [place], [place] documented in this encounter Visit Diagnoses Not on filedocumented in this encounter Care Teams Postmaster Relationship Specialty Start Date End Date Carla Lieberman MD [address] [place] [address] PCP - General 01/12/10 08/19/18 documented as of this encounter
--- OUTSIDE RECORDS SUMMARY | 2023-10-18 01:47 | XMS_ITS | Encounter Summary ---
Author [facility] [place] [address] Care Team Providers Care Resident Associate Name Role Phone Carla Lieberman MD Primary Care Provider [phone] Encounter Details Date Type Department Care Team (Late st Contact Info) Description 07/08/2010 Orders [place] [address] Ash Pinto MD [facility] [place] [address] Nausea & vomiting (Primary Dx) Social History [...] vomiting documented in this encounter Care Teams Resident Associate Relationship Specialty Start Date End Date Carla Lieberman MD [address] [place] [address] PCP - General 01/12/10 08/19/18 documented as of this encounter
--- OUTSIDE RECORDS SUMMARY | 2023-10-18 01:47 | XMS_ITS | Encounter Summary ---
[place] [address] Care Team Providers Care Auto Dismantler Name Role Phone Carla Lieberman MD Primary Care Provider [phone] Encounter Details Date Type Department Care Team (Late st Contact Info) Description 02/15/2010 9:00 AM EST Procedure visit [place] [address] Social History Tobacco Use Types Packs/Day Years Used Date Smoking Tobacco: Never Assessed Sex and Gender Information Value Date Recorded Sex Assigned at Not on file Gender Identity Not on file Sexual Orientation Not on file documented as of this encounter Plan of Treatment Not on file documented as of this encounter Visit Diagnoses Not on filedocumented in this encounter Care Teams Auto Dismantler Relationship Specialty Start Date End Date Carla Lieberman MD [address] [place] [address] PCP - General 01/12/10 08/19/18 documented as of this encounter
--- OUTSIDE RECORDS SUMMARY | 2023-10-18 01:47 | XMS_ITS | Encounter Summary ---
[place] [address] Care Team Providers Care Mechanical Engineering Director Name Role Phone Carla Lieberman MD Primary Care Provider [phone] Encounter Details Date Type Department Care Team (Late st Contact Info) Description 07/09/2018 Ancillary Procedure [place] [phone] Gissell Davis, KENYATTA [address] [place] [address] Social History Tobacco Use Types Packs/Day Years [...] APRN IMG FILM LIBRARY ORD ERABLES DH [place], [place] documented in this encounter Visit Diagnoses Not on filedocumented in this encounter Care Teams Mechanical Engineering Director Relationship Specialty Start Date End Date Carla Lieberman MD [address] [place] [address] PCP - General 01/12/10 08/19/18 documented as of this encounter
--- OUTSIDE RECORDS SUMMARY | 2023-10-18 01:47 | XMS_ITS | Encounter Summary ---
Author Organization [facility] Address [facility] [place] [address] Care Team Providers Care Production Gear Cutter Name Role Phone Carla Lieberman MD Primary Care Provider [phone] Encounter Details Date Type Department Care Team (Latest Contact Info) Description 07/27/2010 9:43 AM EDT - 07/27/2010 11:59 PM EDT Hospital Encounter XRay at [address] [place] [address] CLINIC, Ash Huerta MD [facility] [place] [address] Discharge Disposition: Home Social History Tobacco Use [...] mg documented in this encounter Care Teams Production Gear Cutter Relationship Specialty Start Date End Date Carla Lieberman MD [address] [place] [address] PCP - General 01/12/10 08/19/18 documented as of this encounter
--- OUTSIDE RECORDS SUMMARY | 2023-10-18 01:47 | XMS_ITS | Encounter Summary ---
Author Organization [facility] Address [facility] [place] [address] Care Team Providers Care Efficiency Engineer Name Role Phone Carla Lieberman MD Primary Care Provider [phone] Encounter Details Date Type Department Care Team (Late st Contact Info) Description 04/16/2018 Ancillary Procedure [place] [phone] Gissell Davis, KENYATTA [address] [place] [address] Social History Tobacco Use Types Packs/Day Years [...] APRN IMG FILM LIBRARY ORD ERABLES DH [place], [place] documented in this encounter Visit Diagnoses Not on filedocumented in this encounter Care Teams Efficiency Engineer Relationship Specialty Start Date End Date Carla Liebreman MD [address] [place] [address] PCP - General 01/12/10 08/19/18 documented as of this encounter
--- OUTSIDE RECORDS SUMMARY | 2023-10-18 01:47 | XMS_ITS | Encounter Summary ---
[place] [address] Care Team Providers Care Link Wire Fabric Machine Operator Name Role Phone Carla Lieberman MD Primary Care Provider Encounter Details Date Type Department Care Team (Late st Contact Info) Description 04/06/2010 8:30 AM EST Procedure visit [place] [address] Lynette [place], [place] Social History Tobacco Use [...] on filedocumented in this encounter Care Teams Link Wire Fabric Machine Operator Relationship Specialty Start Date End Date Carla Lieberman MD [address] [place] [address] PCP - General 01/12/10 08/19/18 documented as of this encounter
--- OUTSIDE RECORDS SUMMARY | 2023-10-18 01:47 | XMS_ITS | Encounter Summary ---
Author Organization [facility] [place] [address] Care Team Providers Care Oracle Analyst Name Role Phone Gissell Davis APRN Primary Care Provider [phone] Reason for Visit * Reason Comments Referral * Consultation (Routine) - Specialty Diagnoses / Procedures Referred By Contac t Referred To Contact Infectious Diseases Diagnoses h/o knee infx, suppressive abx consult Procedures consult Raheel Gongora MD [address] [place] [address] [facility] [address] [place] [address] Referral ID Status Reason Start Date Expiration Date V isits Requested Visits Authorized [id number] 06/28/2018 06/28/2019 1 1 Encounter Details Date Type Department Care Team (Late st Contact Info) Description 08/21/2018 2:30 PM EDT Office [place] [address] [place] [address] Infection of prosthetic joint, initial encounter Social [...] aspiration revealed concern for infection (I called [facility] and no report of culture performed) [...] Illegal: denies 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 Patient reports a left knee aspiration a couple weeks ago, but I don't currently have results or cultures on file, and when I called the [facility] microbiology lab, they reported no further [...] to the referring provider 60 minutes of [id number] time was spent with the patient, more than half of which was spent in counseling or coordination of care. REGGIE HULL MD 08/21/2018 8:41 PM documented in this encounter Plan of Treatment Not on file documented as of this encounter Visit Diagnoses Diagnosis Infection of prosthetic joint, initial encounter documented in this encounter Care Teams Oracle Analyst Relationship Specialty Start Date End Date Gissell Davis APRN [address] [place] [address] PCP - General Family Medicine 08/21/18 11/12/21 documented as of this encounter
--- OUTSIDE RECORDS SUMMARY | 2023-10-18 01:47 | XMS_ITS | Encounter Summary ---
Author Organization [facility] [place] [address] Care Team Providers Care Air Traffic Control Specialist Name Role Phone Carla Lieberman MD Primary Care Provider [phone] Reason for Visit * Reason Onset Date Comments GI Problem 09/06/2010 dameon egd per mariam Encounter Details Date Type Department Care Team (Late st Contact Info) Description 09/06/2010 Telephone [place] [phone] Ash Pinto MD [facility] [place] [address] GI Problem (dameon egd per mariam) Social [...] on filedocumented in this encounter Care Teams Air Traffic Control Specialist Relationship Specialty Start Date End Date Carla Lieberman MD [address] [place] [address] PCP - General 01/12/10 08/19/18 documented as of this encounter
--- NOTE | 2023-10-18 06:45 | DI.US_ITS ---
Exam(s) US PELVIS EXAM: US PELVIS CLINICAL HISTORY: cystic lesion cervical stump,CYST OF CERVIX,N88.8 TECHNIQUE: Ultrasound of the pelvis was performed both transabdominal and transvaginal. COMPARISON: US POCUS EXAM from 02/07/2023 MR MR PELVIS WO from 08/21/[address] ABDOMEN PELVIS W from 10/05/2023 FINDINGS: UTERUS: Uterus is surgically absent. There are few cystic structures in the cervical stump which are presumably in nabothian cysts. The s maller measures 1.2 x 1.0 x 1.2 cm. Above this and towards the right side is another larger cyst phoenix suring 2.4 x 2.3 x 2.7 cm. OVARIES: Both ovaries were not able be identified on this study. May be surgically absent. CUL-DE-SAC: No free fluid evident. IMPRESSION: 1. Surgically absent uterus. 2. Two cystic structures noted in the cervical stump as described above, the larger measuring 24 x 23 x 27 mm. These correspond to findings seen on recent CT and MRI and probably represent nabothian cy sts. 3. Ovaries were not able to be identified. No abnormal adnexal masses noted. Also no free fluid irwin dent in the pelvis. DATA REPOSITORY:
== END 2023-10-18 02:03 ==
LOC: DI 01:43
PROVIDERS: PCP Nurse Practitioner Family; Visit Provider Nurse Practitioner Family
DX: N88.8 Other specified noninflammatory disorders of cervix uteri (principal)
CPT/HCPCS: 76856

== ENCOUNTER → 2023-12-07 14:17 | Outpatient (BNVA) | payer MEDICARE, SELFPAY | PROVIDERS: PCP Nurse Practitioner Family; Referring Provider Nurse Practitioner Family; Visit Provider Student in an Organized Health Care Education/Training Program | DX: M75.52 Bursitis of left shoulder (principal) | CPT/HCPCS: 20610; J1010 ==

== ENCOUNTER → 2024-02-05 14:04 | Outpatient (BNVA) | payer MEDICARE, SELFPAY | PROVIDERS: PCP Nurse Practitioner Family; Referring Provider Nurse Practitioner Family; Visit Provider Student in an Organized Health Care Education/Training Program | DX: M25.562 Pain in left knee (principal); T84.54XS Infection and inflammatory reaction due to internal left knee prosthesis, sequela; M75.52 Bursitis of left shoulder | CPT/HCPCS: 99213 ==

== ENCOUNTER → 2024-02-20 11:01 | Outpatient (BNVA) | payer MEDICARE, SELFPAY | PROVIDERS: PCP Nurse Practitioner Family; Referring Provider Nurse Practitioner Family; Visit Provider Physician Assistant Surgical | DX: J44.89 Other specified chronic obstructive pulmonary disease (principal); R91.1 Solitary pulmonary nodule | CPT/HCPCS: 99214 ==

== ENCOUNTER 2024-03-11 03:23 | Outpatient (CLI) | payer MEDICARE, SELFPAY ==
[2024-03-11 12:38] LABS: Abs Immature Grans 0.03 10^3/uL (0.0-0.06); Absolute Basophil Count 0.02 10^3/uL (0.0-0.2); Absolute Eosinophil Count 0.17 10^3/uL (0.0-0.7); Absolute Lymphocyte Count 2.37 10^3/uL (1.2-3.4); Absolute Monocyte Count 0.61 10^3/uL (0.1-0.8); Absolute Neutrophil Count 4.15 10^3/uL (1.2-6.7); Basophils % 0.3 %; Eosinophils % 2.3 %; HCT 36.1 % (36.0-46.0); HGB 12.3 g/dL (11.2-15.7); Immature Grans % 0.4 %; Lymphocytes % 32.2 %; MCH 34.5 pg (27.0-33.0); MCHC 34.1 % (32.0-36.0); MCV 101 fL (80-95); MPV 9.7 fL (8.0-11.0); Monocytes % 8.3 %; Neutrophils % 56.5 %; Platelet Count 323 10^3/uL (130-400); RBC 3.57 10^6/uL (3.93-5.22); RDW 12.8 % (11.7-14.6); RDW-SD 47.5 fL; WBC 7.35 10^3/uL (4.4-10.8)
[2024-03-11 12:55] LABS: Hemoglobin A1C 4.9 % (<5.7)
[2024-03-11 13:02] LABS: ALT 13 U/L (14-59); AST 16 U/L (15-37); Albumin 2.9 g/dL (3.4-5.0); Alkaline Phosphatase 64 U/L (46-116); Anion Gap 5.4 mmol/L (3-11); BUN 12 mg/dL (7-18); CO2 29.6 mmol/L (21.0-32.0); CREATININE 0.6 mg/dL (0.55-1.02); Calcium 9.2 mg/dL (8.5-10.1); Calculated LDL 80 mg/dL (<100); Chloride 107 mmol/L (98-107); Cholesterol 168 mg/dL (<200); Glucose 79 mg/dL (74-106); HDL Cholesterol 71 mg/dL (40-60); Potassium 3.7 mmol/L (3.5-5.1); Sodium 142 mmol/L (136-145); TSH (W/Ref FT4) 1.26 uIU/mL (0.36-3.74); Total Protein 6.9 g/dL (6.4-8.2); Triglyceride 87 mg/dL (<150)
== END 2024-03-11 03:24 | disposition home or self-care (01) ==
LOC: LBO 03:24
PROVIDERS: PCP Nurse Practitioner Family; Visit Provider Nurse Practitioner Family
DX: E11.9 Type 2 diabetes mellitus without complications (principal); R63.4 Abnormal weight loss
CPT/HCPCS: 36415; 80053; 80061; 83036; 84443; 85025

== ENCOUNTER 2024-04-02 02:06 | Outpatient (CLI) | payer MEDICARE, SELFPAY ==
--- NOTE | 2024-04-02 07:30 | DI.CT_ITS ---
Exam(s) CT CHEST WO EXAM: CT CHEST WO CLINICAL HISTORY: F/U RUL PULMONARY NODULE,R91.1. TECHNIQUE: Imaging protocol: Axial computed tomography images were obtained and coronal and sagittal reformatted images were created and reviewed. Computer aided detection (CAD) was utilized. CONTRAST MATERIAL: Noncontrast COMPARISON: CT UPPER ABD WITHOUT CONTRAST from 02/02/2009 CT HEAD WITHOUT CONTRAST from 11/23/2009 CT ABD PELVIS WITH CONTRAST from 01/31/[address] CHEST/ABD/PEL W from 12/30/[address] CHEST WO from 03/15/2023 FINDINGS: Pulmonary parenchyma: No consolidation. No suspicious nodules. Stable appearance of minimal focal sc arring at the posterior right upper lobe. Stable 4 millimeter nodule medial left upper lobe. Interstitial changes: None. Emphysema: None. Tracheobronchial tree: No mucous plugging. No bronchiectasis . Pleura: No effusion or pneumothorax. Heart: The heart is not dilated. The coronary arteries show mild calcifications. Stable appearance of thickening of the distal esophagus and probable Nga fundoplication. Aorta: Thoracic aorta non-dilated. Mild atherosclerotic changes. Lymph nodes: No enlarged lymph nodes. Bones: Mild degenerative changes are seen. No evidence of compression fracture. Upper abdomen: Nonobstructing stones noted at the upper poles of both kidneys. Cholecystectomy. Soft tissues: Unremarkable. IMPRESSION: No acute abnormality. Stable areas scarring in the posterior right upper lobe. Stable 4 millimeter left upper lobe pulmona ry nodule. RADIATION DOSE DELIVERED: Total DLP Total DLP DATA REPOSITORY: All CT scans at this facility are submitted to the National Radiology Data Registry (NRDR) Dose Index Registry (DIR) with the [employer] (ACR). RADIATION OPTIMIZATION: All CT scans at this facility use at least one of these dose optimization te chniques: automated exposure control; mA and/or kV adjustment per patient size (includes targeted exa ms where dose is matched to clinical indication); or iterative reconstruction.
== END 2024-04-02 02:26 ==
PROVIDERS: PCP Nurse Practitioner Family; Visit Provider Physician Assistant Surgical
DX: R91.1 Solitary pulmonary nodule (principal)
CPT/HCPCS: 71250

== ENCOUNTER → 2024-05-20 13:13 | Outpatient (BNVA) | payer MEDICARE, SELFPAY | PROVIDERS: PCP Nurse Practitioner Family; Referring Provider Nurse Practitioner Family; Visit Provider Student in an Organized Health Care Education/Training Program | DX: M19.012 Primary osteoarthritis, left shoulder (principal); M75.82 Other shoulder lesions, left shoulder; M24.852 Other specific joint derangements of left hip, not elsewhere classified; M70.62 Trochanteric bursitis, left hip | CPT/HCPCS: 99214 ==

== ENCOUNTER 2024-05-24 01:14 | Outpatient (CLI) | payer OTHER, SELFPAY ==
[2024-05-24] MEDS: Levalbuterol HFA 15 GM INH 4 PUFF IH (11:17)
[2024-05-24] MEDS: Inhaler, Assist Device 1 EACH MC (11:17)
--- NOTE | 2024-05-27 15:20 | W.PFT ---
Date of service: 05/24/24 Time of Service: 10:04 Pulmonary Function Test Result Indications: COPD Interpretation Spirometry: There is moderate airflow limitation. No significant bronchodilator response. Impression Moderate airflow obstruction Clinical Correlation therefore is recommended.
== END 2024-05-24 01:15 | disposition home or self-care (01) ==
LOC: RT 01:14
PROVIDERS: PCP Nurse Practitioner Family; Visit Provider Student in an Organized Health Care Education/Training Program
DX: Z02.71 Encounter for disability determination (principal); J44.89 Other specified chronic obstructive pulmonary disease
CPT/HCPCS: 94060

== ENCOUNTER → 2024-05-27 09:56 | Outpatient (BNVA) | payer MEDICARE, SELFPAY | PROVIDERS: PCP Nurse Practitioner Family; Referring Provider Nurse Practitioner Family; Visit Provider Physician Assistant Surgical | DX: J44.89 Other specified chronic obstructive pulmonary disease (principal); R91.1 Solitary pulmonary nodule; E55.9 Vitamin D deficiency, unspecified | CPT/HCPCS: 36415; 99214 ==

== ENCOUNTER 2024-05-27 18:32 | Outpatient (REF) | payer OTHER, SELFPAY ==
[2024-05-27 15:24] LABS: Vitamin D 25 Total 32 ng/mL (30-100)
== END 2024-05-27 18:33 | disposition home or self-care (01) ==
LOC: LBN 18:32
PROVIDERS: PCP Nurse Practitioner Family; Visit Provider Physician Assistant Surgical
DX: E55.9 Vitamin D deficiency, unspecified (principal); J44.89 Other specified chronic obstructive pulmonary disease
CPT/HCPCS: 82306

== ENCOUNTER 2024-06-06 00:31 | Outpatient (CLI) | payer MEDICARE, SELFPAY ==
--- NOTE | 2024-06-06 07:45 | DI.MRI_ITS ---
Exam(s) MR UPPER JOINT LT WO EXAM: MR UPPER JOINT LT WO CLINICAL HISTORY: lt shoulder pain, m25.512. TECHNIQUE: Multiplanar multisequence MRI was performed. COMPARISON: 19 May 2022 FINDINGS: BONES: There is no fracture or contusion pattern. Degenerative cysts in the greater tuberosity. JOINTS:The acromioclavicular joint shows mild inferior spurring. The glenohumeral joint shows mild inferior spurring. TENDONS: Supraspinatus: Unremarkable. Infraspinatus: Unremarkable. Subscapularis: Unremarkable. Teres Minor: Unremarkable. Biceps and [place]: The long head of the biceps tendon is not visualized. It is presumably torn and r etracted. MUSCLES: Unremarkable. GLENOID LABRUM: Degenerative changes. No visible tear. SOFT TISSUES: Unremarkable. BURSAE: Subacromial and subdeltoid bursae . IMPRESSION: The long head of the biceps tendon is not visualized, presumed torn and retracted. Degenerative changes of the glenohumeral joint and labrum. Mild degenerative changes of the AC joint . DATA REPOSITORY:
== END 2024-06-06 00:51 ==
LOC: DI 00:31
PROVIDERS: PCP Nurse Practitioner Family; Visit Provider Student in an Organized Health Care Education/Training Program
DX: M25.512 Pain in left shoulder (principal)
CPT/HCPCS: 71046; 73221

== ENCOUNTER 2024-06-06 00:31 | Outpatient (CLI) | payer MEDICARE, SELFPAY ==
--- NOTE | 2024-06-06 13:35 | DI.RAD_ITS ---
Exam(s) XR CHEST 2V PA LATERAL EXAM: XR CHEST 2V PA LATERAL CLINICAL HISTORY: cough,asthma-copd overlap syndrome,j44.89. TECHNIQUE: 2D digital imaging was performed. COMPARISON: CR,RF RF BARIUM SWALLOW from 08/11/2023 FINDINGS: 2 views: Heart size is normal. The mediastinum is not widened. Lungs are clear. No infiltrates nor pleural effusions. IMPRESSION: No acute pulmonary findings. DATA REPOSITORY: RADIATION DOSE DELIVERED:
== END 2024-06-06 00:51 ==
LOC: DI 00:31
PROVIDERS: PCP Nurse Practitioner Family; Visit Provider Physician Assistant Surgical
DX: J44.89 Other specified chronic obstructive pulmonary disease (principal)
CPT/HCPCS: 71046

== ENCOUNTER 2024-06-23 13:41 | Emergency (ER) | payer MEDICARE, SELFPAY ==
[2024-06-23] VITALS (16 sets, daily range): BP systolic 126; BP diastolic 85; PULSE 74–94; RESP 14–26; TEMP 36.4; O2SAT 96–100
--- NOTE | 2024-06-23 14:15 | DI.CT_ITS ---
Exam(s) CT ABDOMEN PELVIS W EXAM: CT ABDOMEN PELVIS W CLINICAL HISTORY: lower Abdominal pain. TECHNIQUE: Imaging Protocol: Axial computed tomography images with coronal and sagittal reformatted images were created and reviewed CONTRAST MATERIAL: Intravenous: Omnipaque 350 Contrast volume:70 ml Oral: no COMPARISON: CT CT ABDOMEN PELVIS W from 10/05/2023 FINDINGS: ABDOMEN and PELVIS: Lung Bases: No acute findings. Similar appearance of thickening of the distal is esophagus and upp er fundus likely representing this in fundoplication. Similar appearance to Liver: Normal density. No suspicious mass. Gallbladder and biliary tract: Cholecystectomy. No biliary dilation. Pancreas: Normal density. No abnormal calcifications or inflammatory process. No evidence of mass. Spleen: Normal. Kidneys: Normal size, contour and axis. The 6 millimeter stone upper cyst upper pole left kidney. L arger stones noted at the lower pole. None millimeters stone at the ureteropelvic junction causing m oderate left hydronephrosis. There is some delay in the left nephrogram. There is mild left perinep hric stranding. No suspicious masses seen. Adrenal glands: No masses seen. Vasculature: Abdominal aorta non-dilated. Mild atherosclerotic calcification Soft tissues: The midline abdominal wall hernia repair. Bladder: Nearly empty. No gross wall thickening. No calculi.No focal mass. Bowel: No obstruction. No bowel wall thickening. Appendix normal. Peritoneal cavity: No ascites. No focal collection. No mesenteric inflammatory response. No free air . Bones: Unremarkable for age. Reproductive organs: Status post hysterectomy with residual cervical stump. Similar appearing cystic lesion at the cervix, likely nabothian cyst. Small cyst right ovary. Lymph nodes: No pathologically enlarged lymph nodes. IMPRESSION:: 9 millimeter stone at the left ureteropelvic junction causing moderate hydronephrosis. Additional nonobstructing left renal calculi. RADIATION DOSE DELIVERED: Total DLP DATA REPOSITORY: All CT scans at this facility are submitted to the National Radiology Data Registry (NRDR) Dose Index Registry (DIR) with the [employer] (A[employer]). RADIATION OPTIMIZATION: All CT scans at this facility use at least one of these dose optimization te chniques: automated exposure control; mA and/or kV adjustment per patient size (includes targeted exa ms where dose is matched to clinical indication); or iterative reconstruction.
--- NOTE | 2024-06-23 14:19 | W.ED.GENAD ---
Discharge Plan Discharge Details Chief Complaint: Abd Prob Primary Care Provider: Renetta Bonner ED Provider: Maggie Joyner Home Meds and New Rx's Prescriptions: No Action (DME) blood-glucose meter [OneTouch Ultra2 Meter] Misc See Rx Instructions .Route Qty: 1 3RF Rx Instructions: Check blood sugar twice a day levocetirizine 5 mg tablet 5 mg PO DAILY PRN (Reason: allergy symptoms) Qty: 90 3RF lactase [Lactase Fast Acting] 9,000 unit tablet 9,000 unit PO DAILY PRN (Reason: lactose intolerance) Qty: 90 3RF atorvastatin 10 mg tablet 10 mg PO QPM Qty: 90 3RF buspirone 5 mg tablet 5 mg PO BID Qty: 180 3RF cephalexin 500 mg capsule 500 mg PO TID Qty: 270 3RF fluoxetine 20 mg capsule 20 mg PO DAILY Qty: 90 3RF Rx Instructions: Take with 40mg cap for a total of 60mg fluoxetine 40 mg capsule 40 mg PO DAILY Qty: 90 3RF Rx Instructions: Take with 20mg cap for a total of 60mg gabapentin 300 mg capsule 300 mg PO BID Qty: 180 3RF sumatriptan succinate 50 mg tablet 50 mg PO ONCE MDD 2 pills PRN (Reason: migraine headache) Qty: 30 4RF Rx Instructions: Take one tab at onset of headache. May repeat in 1 hour if no relief. fexofenadine 180 mg tablet 180 mg PO DAILY Qty: 90 3RF Patient Comments: Pt has not started yet. triamcinolone acetonide 0.1 % cream 1 applic topical BID PRN (Reason: rash) Qty: 80 1RF magnesium oxide 500 mg capsule 500 mg PO DAILY Qty: 90 3RF esomeprazole magnesium [Nexium] 40 mg capsule,delayed release(DR/EC) 40 mg PO DAILY Qty: 90 3RF Patient Comments: pt. states it is omeprazole (DME) OneTouch Ultra Test Strip 1 ea Miscellaneous DAILY Qty: 200 3RF Rx Instructions: Check blood sugar twice a day (DME) lancets [Ultra Thin Lancets] Misc 1 ea Miscellaneous DAILY Qty: 200 3RF Rx Instructions: Check blood sugar twice a day cholecalciferol (vitamin D3) [Vitamin D3] 2,000 UNIT capsule 2,000 unit PO DAILY metoclopramide HCl [Reglan] 5 mg tablet 5 mg PO TID PRN (Reason: nausea and vomiting) Qty: 270 3RF montelukast [Singulair] 10 mg tablet 10 mg PO HS Qty: 90 3RF Complete Multivitamin-Mineral 9 mg iron/15 mL liquid See Rx Instructions PO DAILY Qty: 240 3RF Rx Instructions: orally daily; cyclobenzaprine 5 mg tablet 5 mg PO TID PRN (Reason: back pain) Qty: 60 1RF Rx Instructions: Take 1 tablet by mouth three times a day as needed for back pain albuterol sulfate 2.5 mg /3 mL (0.083 %) solution for nebulization 2.5 mg Inhalation Q6H PRN (Reason: shortness of breath or wheezing) Qty: 360 3RF Patient Comments: 07/03/17 Per pt uses every night.jw levalbuterol tartrate 45 mcg/actuation HFA aerosol inhaler 2 inh inhalation Q6H PRN (Reason: shortness of breath or wheezing) Qty: 3 4RF acetaminophen 500 mg tablet 1,000 mg PO TID Qty: 90 0RF dicyclomine 20 mg tablet 20 mg PO TID PRN (Reason: abdominal pain) Qty: 90 3RF Trelegy Ellipta 200-62.5-25 mcg blister with device 1 inh inhalation DAILY 30 Days Qty: 60 12RF tramadol 50 mg tablet 50 mg PO BID PRN (Reason: pain) Qty: 30 0RF prednisone 10 mg tablet 10 mg PO DAILY Qty: 34 0RF Rx Instructions: Take 40mg (4 tablets) one a day for 4 days, 30mg (3 tablets) once a day for 3 days, 20mg (2 tablets) once a day for 3 days , 10mg (1 tablet) for 2 days, 5mg (0.5 tablets) for 2 days HPI General Mode of arrival: ambulatory. Date/Time Provider Initiated Documentation: 06/23/24 13:48. Limitations to Documentation: no limitations. Information obtained by: patient, RN notes reviewed and old records reviewed. HPI Narrative: 53-year-old female presents to the ER with chief complaint of lower abdominal pain for the last 3 days. She reports nausea no vomiting, denies any diarrhea or constipation. Denies any dysuria. She reports that the pain sometimes travels into her back. She has been taking Tylenol with little to no relief. She does have a history of a cholecystectomy and hysterectomy. Other past medical history includes type 2 diabetes mellitus, tubular adenoma of colon, nephrolithiasis H. pylori. She does have a history of paraesophageal hernia repair, fundoplication. Related Data Home Medications ?Medication ?Instructions ?Recorded ?Confirmed cholecalciferol (vitamin D3) 50 2,000 unit PO DAILY 05/19/15 06/23/24 mcg (2,000 unit) capsule (Vitamin D3) blood-glucose meter (OneTouch #1 ea 07/13/22 06/23/24 Ultra2 Meter) metoclopramide HCl 5 mg tablet 5 mg PO TID PRN nausea and 08/10/22 06/23/24 (Reglan) vomiting #270 tabs fexofenadine 180 mg tablet 180 mg PO DAILY #90 tabs 03/20/23 06/03/24 montelukast 10 mg tablet 10 mg PO HS #90 tabs 09/14/23 06/23/24 (Singulair) levocetirizine 5 mg tablet 5 mg PO DAILY PRN allergy symptoms 09/21/23 06/23/24 #90 tabs multivitamin with minerals-iron See Rx Instructions PO DAILY #240 10/26/23 06/23/24 fumarate 9 mg iron/15 mL oral mL liquid (Complete Multivitamin-Multimineral) atorvastatin 10 mg tablet 10 mg PO QPM #90 tabs 12/28/23 06/23/24 buspirone 5 mg tablet 5 mg PO BID #180 tabs 12/28/23 06/23/24 cephalexin 500 mg capsule 500 mg PO TID #270 caps 12/28/23 06/23/24 fluoxetine 20 mg capsule 20 mg PO DAILY #90 caps 12/28/23 06/23/24 fluoxetine 40 mg capsule 40 mg PO DAILY #90 caps 12/28/23 06/23/24 gabapentin 300 mg capsule 300 mg PO BID #180 caps 12/28/23 06/23/24 lactase 9,000 unit tablet (Lactase 9,000 unit PO DAILY PRN lactose 12/28/23 06/23/24 Fast Acting) intolerance #90 tabs cyclobenzaprine 5 mg tablet 5 mg PO TID PRN back pain #60 tabs 01/01/24 06/23/24 albuterol sulfate 2.5 mg/3 mL 2.5 mg (3 mL) inhalation Q6H PRN 02/19/24 06/23/24 (0.083 %) solution for nebulization shortness of breath or wheezing #360 mL levalbuterol tartrate 45 2 inh inhalation Q6H PRN shortness 03/12/24 06/23/24 mcg/actuation aerosol inhaler of breath or wheezing #3 ea acetaminophen 500 mg tablet 1,000 mg (2 x 500 mg) PO TID #90 03/18/24 06/23/24 tabs blood sugar diagnostic (OneTouch #200 ea 03/21/24 06/23/24 Ultra Test strips) esomeprazole magnesium 40 mg 40 mg PO DAILY #90 caps 03/21/24 06/23/24 capsule,delayed release (Nexium) lancets (Ultra Thin Lancets) #200 ea 03/21/24 06/23/24 magnesium oxide 500 mg capsule 500 mg PO DAILY #90 caps 03/21/24 06/23/24 triamcinolone acetonide 0.1 % 1 applic topical BID PRN rash #80 03/21/24 06/23/24 topical cream grams dicyclomine 20 mg tablet 20 mg PO TID PRN abdominal pain 03/28/24 06/23/24 #90 tabs fluticasone fur. 200 mcg-umeclid 1 inh inhalation DAILY 30 days #60 04/30/24 06/23/24 62.5 mcg-vilant 25 mcg ea inhalat.powder (Trelegy Ellipta) tramadol 50 mg tablet 50 mg PO BID PRN pain #30 tabs 05/21/24 06/23/24 sumatriptan succinate 50 mg tablet 50 mg PO ONCE PRN migraine 06/03/24 06/23/24 headache #30 tabs prednisone 10 mg tablet 10 mg PO DAILY #34 tabs 06/04/24 06/23/24 Previous Rx's ?Medication ?Instructions ?Recorded blood-glucose meter (OneTouch #1 ea 07/13/22 Ultra2 Meter) metoclopramide HCl 5 mg tablet 5 mg PO TID PRN nausea and 08/10/22 (Reglan) vomiting #270 tabs fexofenadine 180 mg tablet 180 mg PO DAILY #90 tabs 03/20/23 montelukast 10 mg tablet 10 mg PO HS #90 tabs 09/14/23 (Singulair) levocetirizine 5 mg tablet 5 mg PO DAILY PRN allergy symptoms 09/21/23 #90 tabs multivitamin with minerals-iron See Rx Instructions PO DAILY #240 10/26/23 fumarate 9 mg iron/15 mL oral mL liquid (Complete Multivitamin-Multimineral) atorvastatin 10 mg tablet 10 mg PO QPM #90 tabs 12/28/23 buspirone 5 mg tablet 5 mg PO BID #180 tabs 12/28/23 cephalexin 500 mg capsule 500 mg PO TID #270 caps 12/28/23 fluoxetine 20 mg capsule 20 mg PO DAILY #90 caps 12/28/23 fluoxetine 40 mg capsule 40 mg PO DAILY #90 caps 12/28/23 gabapentin 300 mg capsule 300 mg PO BID #180 caps 12/28/23 lactase 9,000 unit tablet (Lactase 9,000 unit PO DAILY PRN lactose 12/28/23 Fast Acting) intolerance #90 tabs cyclobenzaprine 5 mg tablet 5 mg PO TID PRN back pain #60 tabs 01/01/24 albuterol sulfate 2.5 mg/3 mL 2.5 mg (3 mL) inhalation Q6H PRN 02/19/24 (0.083 %) solution for nebulization shortness of breath or wheezing #360 mL levalbuterol tartrate 45 2 inh inhalation Q6H PRN shortness 03/12/24 mcg/actuation aerosol inhaler of breath or wheezing #3 ea acetaminophen 500 mg tablet 1,000 mg (2 x 500 mg) PO TID #90 03/18/24 tabs blood sugar diagnostic (OneTouch #200 ea 03/21/24 Ultra Test strips) esomeprazole magnesium 40 mg 40 mg PO DAILY #90 caps 03/21/24 capsule,delayed release (Nexium) lancets (Ultra Thin Lancets) #200 ea 03/21/24 magnesium oxide 500 mg capsule 500 mg PO DAILY #90 caps 03/21/24 triamcinolone acetonide 0.1 % 1 applic topical BID PRN rash #80 03/21/24 topical cream grams dicyclomine 20 mg tablet 20 mg PO TID PRN abdominal pain 03/28/24 #90 tabs fluticasone fur. 200 mcg-umeclid 1 inh inhalation DAILY 30 days #60 04/30/24 62.5 mcg-vilant 25 mcg ea inhalat.powder (Trelegy Ellipta) tramadol 50 mg tablet 50 mg PO BID PRN pain #30 tabs 05/21/24 sumatriptan succinate 50 mg tablet 50 mg PO ONCE PRN migraine 06/03/24 headache #30 tabs prednisone 10 mg tablet 10 mg PO DAILY #34 tabs 06/04/24 Allergies Allergy/AdvReac Type Severity Reaction Status Date / Time latex Allergy Severe HIVES, Verified 06/23/24 13:51 ITCHING erythromycin base AdvReac Intermediate NAUSEA, Verified 06/23/24 13:51 VOMITING chlorhexidine (From AdvReac Mild Itching Verified 06/23/24 13:51 Hibiclens) codeine AdvReac NAUSEA, Verified 06/23/24 13:51 VOMITING Dermabond Allergy Intermediate Skin Rash Uncoded 06/23/24 13:51 Glue Allergy Mild Rash and Uncoded 06/23/24 13:51 blisters General Stated Complaint: Abd Prob SHAYNE: 3 Review of Systems All systems reviewed & are unremarkable except as noted in HPI and below Gastrointestinal Gastrointestinal: Reports as per HPI, Reports abdominal pain, Denies constipation, Denies diarrhea, Reports nausea and Denies vomiting Exam Narrative Exam Narrative: Constitutional: Alert and oriented x3. Appears stated age. Normal body habitus. Head: Normocephalic, no trauma. Eyes: Pupils PERRL, Red reflex noted, EOM's intact. Eyelids symmetrical without lesions, discharge, or swelling. ENT: Bilateral TM's WNL, External ear normal to inspection, no mastoid TTP, swelling, or erythema, Nasal turbinates WNL, no nasal discharge. Normal dentition, Posterior pharynx WNL, no exudate. Chest: RRR, Normal S1, S2, distal pulses intact. Resp: Lungs clear to auscultation bilaterally, no wheezes, rales, or rhonchi. Abdomen: Soft, non-distended, diminished bowel sounds bilaterally, tenderness in the lower abdomen left lower quadrant and right lower quadrant suprapubically. Musculoskeletal: Normal gait, Moves all 4 extremities without difficulty. Skin: No suspicious rashes or lesions. Capillary refill less than 2 sec. Neurologic: Cranial nerves II-XII intact. Alert and oriented x 3. Motor: No deficits noted. Sensory: Intact bilaterally all 4 extremities. Hematologic/Lymphatic: No ecchymosis, no lymphadenopathy. Course Vital Signs Vital signs: Vital Signs Temperature 36.4 C 06/23/24 13:46 Pulse 90 06/23/24 13:46 Respiratory Rate 16 06/23/24 13:46 Blood Pressure 126/85 06/23/24 13:46 Pulse Oximetry 98 06/23/24 13:46 Temperature 36.4 C 06/23/24 13:50 Temperature Source Oral 06/23/24 13:50 Pulse 90 06/23/24 13:50 Respiratory Rate 18 06/23/24 13:50 Blood Pressure 126/85 06/23/24 13:50 Blood Pressure Position Sitting 06/23/24 13:50 Pulse Oximetry 98 06/23/24 13:50 Oxygen Delivery Method Room Air 06/23/24 13:50 Oxygen Flow Rate 0 06/23/24 13:46 Pain Level 7 06/23/24 14:08 Medical Decision Making 53-year-old female presents to the ER with chief complaint of lower abdominal pain for the last 3 days. She reports nausea no vomiting, denies any diarrhea or constipation. Denies any dysuria. She reports that the pain sometimes travels into her back. She has been taking Tylenol with little to no relief. She does have a history of a cholecystectomy and hysterectomy. Other past medical history includes type 2 diabetes mellitus, tubular adenoma of colon, nephrolithiasis H. pylori. She does have a history of paraesophageal hernia repair, fundoplication. CBC, CMP lipase urinalysis ordered, will give Zofran morphine and CT abdomen pelvis. Differential diagnosis includes not limited to gastroenteritis, diverticulitis, appendicitis, ovarian cyst, urinary tract infection. CBC shows no leukocytosis, BUN 11 creatinine 1.2 GFR 53.7, glucose 173 magnesium slightly low at 1.7 lipase within normal limits at 28. At this time awaiting CT results and urinalysis. Normal saline 500 cc bolus ordered for bumped creatinine. Care is to be handed off to oncoming provider Evangelina Narayan pending CT result and UA. Expected disposition is discharge pending CT. Medical Records Medical records reviewed: Yes I reviewed the patient's medical records. Lab Data Lab results reviewed: Yes I reviewed the patient's lab results. Labs: Laboratory Tests Range/Units 06/23/24 14:26 WBC (4.4-10.8) 10^3/uL 10.60 RBC (3.93-5.22) 10^6/uL 3.85 L Hgb (11.2-15.7) g/dL 13.3 Hct (36.0-46.0) % 37.7 MCV (80-95) fL 98 H MCH (27.0-33.0) pg 34.5 H MCHC (32.0-36.0) % 35.3 RDW (11.7-14.6) % 12.0 Plt Count (130-400) 10^3/uL 273 MPV (8.0-11.0) fL 9.9 Immature Gran % % 0.3 Neutrophils % % 83.1 Lymphocytes % % 9.6 Monocytes % % 6.6 Eosinophils % % 0.2 Basophils % % 0.2 Nucleated RBC % (0.0-0.3) % 0.0 Absolute Neutrophils (1.2-6.7) 10^3/uL 8.81 H Absolute Lymphocytes (1.2-3.4) 10^3/uL 1.02 L Absolute Monocytes (0.1-0.8) 10^3/uL 0.70 Absolute Eosinophils (0.0-0.7) 10^3/uL 0.02 Absolute Basophils (0.0-0.2) 10^3/uL 0.02 Sodium (136-145) mmol/L 139 Potassium (3.5-5.1) mmol/L 3.7 Chloride (98-107) mmol/L 104 Carbon Dioxide (21.0-32.0) mmol/L 26.1 Anion Gap (3-11) mmol/L 8.9 BUN (7-18) mg/dL 11 Creatinine (0.55-1.02) mg/dL 1.2 H Est GFR (CKD-EPI 2020) (mL/min/1.73m2) 53.79 Glucose (74-106) mg/dL 173 H Calcium (8.5-10.1) mg/dL 10.0 Magnesium (1.8-2.4) mg/dL 1.7 L Total Bilirubin (0.2-1.0) mg/dL 1.8 H AST (15-37) U/L 11 L ALT (14-59) U/L 16 Alkaline Phosphatase (46-116) U/L 80 Total Protein (6.4-8.2) g/dL 7.7 Albumin (3.4-5.0) g/dL 3.3 L Lipase (<78) U/L 28 Quality:[facility] Health Related Social Needs: No Data to Display PFSH All Active Problems Tendinitis of left rotator cuff (Acute) Trochanteric bursitis of left hip (Acute) Left snapping hip (Acute) Metabolic dysfunction-associated steatotic liver disease (MASLD) (Chronic) Hyperlipidemia (Chronic) Asthma-COPD overlap syndrome (Chronic) Prediabetes (Chronic) Right upper lobe pulmonary nodule (Chronic ~10/2021) Major depressive disorder, recurrent (Chronic) Generalized anxiety disorder (Chronic) Gastroesophageal reflux disease with esophagitis (Chronic) s/p Toupet fundoplication Dysphagia (Chronic) At risk for aspiration (Chronic) Gastric contents noted in mouth after all general ETT anesthetics. Recommend ETT for GA. 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) left TKA on 07/06/17 left knee synovectomy and polyethylene exchange on 08/22/17 irrigation and debridement with polyethylene exchange and placement of antibiotic beads on 09/13/17 explantation of left knee arthroplasty with placement of cement spacer on 10/19/17 2-stage revision left knee arthroplasty on 12/22/17 irrigation and debridement of left knee with antibiotic bead placement on 04/22/18 History of colonoscopy (05/15/23) History of carpal tunnel surgery of right wrist (04/05/22) History of arthroscopy of left shoulder (02/07/23) History of arthroscopy of right shoulder (03/02/22) S/P recurrent ventral herniorrhaphy Status post total left knee replacement (07/06/17) Status post arthroscopy of left knee (08/21/19) Hx of cystoscopy Lithotripsy, stents x 3 History of total right knee replacement History of esophagogastroduodenoscopy History of incisional hernia repair Status post Nga fundoplication Status post cholecystectomy Status post laparoscopic hysterectomy Status post tonsillectomy Status post revision of total replacement of left knee (07/21/20) Patellar resurfacing DOS: 07/21/2020 DOS: 12/22/17 Dr. Gongora Family History Mother Depression Hyperlipidemia Hypertension Father , 72 Diabetes Heart disease Leukemia Hypertension Sister No problems noted. Maternal Grandfather , 80 Heart disease Hyperlipidemia Paternal Grandfather , 80 Diabetes Heart disease Hyperlipidemia Maternal Grandmother , 82 Diabetes Heart disease Paternal Grandmother , 73 Heart disease Hyperlipidemia Asthma Diabetes Social History Smoking/Tobacco Use Status: Never Second Hand Exposure: Yes Smoking risk assessment performed?: Yes Alcohol Intake: former Drug use: Never Substance use type: does not use Adopted: No Caregiver/Support person: No Foster care: No Household members: spouse Housing: apartment Communication Needs: None Education Level: high school Details: 12TH Do you need help understanding health information?: Never current occupation: Disabled Pets and animals: Yes Pets and animals: cat(s) and dog(s) Sexually active: Yes Do you think of yourself as: straight/heterosexual Current gender identity: female What is your relationship status?: How often do you talk on the phone with friends or family?: three or more times per week How often do you get together with friends or relatives?: twice per week How often do you attend religion or roman catholic services?: decline to answer Do you belong to any clubs or organized social groups?: no Panel score (0-1 are the most socially isolated patients): 2 What type of physical activity do you participate in: walking and other Details: PT at home Duration: 15-30 minutes/day Frequency: 3-4 times per week Sita/Hoahaoism: No preference Special sita needs: No Seatbelt use: always Helmet use: No Drive intox or ride w/intox moving van driver: No Firearms in home: No Do you feel safe at home: Yes Do you feel safe in your relationship?: Yes Victim of physical abuse: No Victim of emotional abuse: No Victim of sexual abuse: No Would you like helpful sources: No
[2024-06-23] MEDS: MORPHine 10 MG/ML VIAL 2 MG IVP (14:33)
[2024-06-23] MEDS: Ondansetron 4 MG/2 ML VIAL IVP (14:33)
[2024-06-23 14:37] LABS: Abs Immature Grans 0.03 10^3/uL (0.0-0.06); Absolute Basophil Count 0.02 10^3/uL (0.0-0.2); Absolute Eosinophil Count 0.02 10^3/uL (0.0-0.7); Absolute Lymphocyte Count 1.02 10^3/uL (1.2-3.4); Absolute Neutrophil Count 8.81 10^3/uL (1.2-6.7); Basophils % 0.2 %; Eosinophils % 0.2 %; HCT 37.7 % (36.0-46.0); HGB 13.3 g/dL (11.2-15.7); Immature Grans % 0.3 %; Lymphocytes % 9.6 %; MCH 34.5 pg (27.0-33.0); MCHC 35.3 % (32.0-36.0); MCV 98 fL (80-95); MPV 9.9 fL (8.0-11.0); Monocytes % 6.6 %; Neutrophils % 83.1 %; Platelet Count 273 10^3/uL (130-400); RBC 3.85 10^6/uL (3.93-5.22); RDW-SD 43.3 fL
[2024-06-23 14:54] LABS: ALT 16 U/L (14-59); AST 11 U/L (15-37); Albumin 3.3 g/dL (3.4-5.0); Alkaline Phosphatase 80 U/L (46-116); Anion Gap 8.9 mmol/L (3-11); BUN 11 mg/dL (7-18); Bilirubin, Total 1.8 mg/dL (0.2-1.0); CO2 26.1 mmol/L (21.0-32.0); CREATININE 1.2 mg/dL (0.55-1.02); Chloride 104 mmol/L (98-107); Estimated GFR 53.79 (mL/min/1.73m2); Glucose 173 mg/dL (74-106); Lipase 28 U/L (<78); Magnesium 1.7 mg/dL (1.8-2.4); Potassium 3.7 mmol/L (3.5-5.1); Sodium 139 mmol/L (136-145); Total Protein 7.7 g/dL (6.4-8.2)
[2024-06-23] MEDS: Normal Saline - Diluent 50 ML VIAL IJ (15:14)
[2024-06-23] MEDS: Omnipaque 350 MG/ML 100 ML BTL 75 ML IJ (15:17)
--- NOTE | 2024-06-23 15:31 | ED.FU.B_ITS ---
Follow Up Plan: Handoff report received from Maggie Joyner NP, daytime [facility]. Please see her note for full HPI/ROS, physical exam, and interpretation of findings. CT results and UA pending. In short, Barbara is a 53-year-old female who presented to the emergency department for evaluation of lower abdominal pain x 3 days. Labs overall reassuring, elevated creatinine (1.2 compared to 0.6 previously on 03/11/24), 500 cc IV fluid bolus given for hydration. Lipase reassuring. UA not consistent with UTI. CT abdomen/pelvis significant for 9 mm stone at the left UPJ causing moderate hydronephrosis. While in the emergency department Barbara received IV Toradol with Protonix due to risk of gastritis, as well as Tylenol and morphine. Discuss[place] case [place] [facility] [place] Recommends follow-up in 1 to 2 weeks w/ strict return precautions if any new/concerning features. History and presentation consistent with uncomplicated left sided nephrolith iasis. Patient management is appropriate since patient is able to tolerate p.o. without difficulty, is producing urine, kidney function remains intact, stone is not infected, and pain is able to be controlled with p.o. pain medications. Discharge instructions with patient, including pain control, importance of follow-up with urology, straining of urine, tamsulosin use, and red flags indicate need for return to emergency care. She voices agreement with plan of care. Imaging and Studies Imaging and Studies Study information below may be from another EMR and interpreted by another provider. Please see original notes in EMR for more complete details. EKG Image & Interpretation: No Data to Display Stress Test Interpretation: No Data to Display Echo Interpretation: No Data to Display CT Summary: Exam(s) CT ABDOMEN PELVIS W EXAM: CT ABDOMEN PELVIS W CLINICAL HISTORY: lower Abdominal pain. TECHNIQUE: Imaging Protocol: Axial computed tomography images with coronal and sagittal reformatted images were created and reviewed CONTRAST MATERIAL: Intravenous: Omnipaque 350 Contrast volume:70 ml Oral: no COMPARISON: CT CT ABDOMEN PELVIS W from 10/05/2023 FINDINGS: ABDOMEN and PELVIS: Lung Bases: No acute findings. Similar appearance of thickening of the distal is esophagus and upper fundus likely representing this in fundoplication. Similar appearance to Liver: Normal density. No suspicious mass. Gallbladder and biliary tract: Cholecystectomy. No biliary dilation. Pancreas: Normal density. No abnormal calcifications or inflammatory process. No evidence of mass. Spleen: Normal. Kidneys: Normal size, contour and axis. The 6 millimeter stone upper cyst upper pole left kidney. Larger stones noted at the lower pole. None millimeters stone at the ureteropelvic junction causing moderate left hydronephrosis. There is some delay in the left nephrogram. There is mild left perinephric stranding. No suspicious masses seen. Adrenal glands: No masses seen. Vasculature: Abdominal aorta non-dilated. Mild atherosclerotic calcification Soft tissues: The midline abdominal wall hernia repair. Bladder: Nearly empty. No gross wall thickening. No calculi.No focal mass. Bowel: No obstruction. No bowel wall thickening. Appendix normal. Peritoneal cavity: No ascites. No focal collection. No mesenteric inflammatory response. No free air. Bones: Unremarkable for age. Reproductive organs: Status post hysterectomy with residual cervical stump. Similar appearing cystic lesion at the cervix, likely nabothian cyst. Small cyst right ovary. Lymph nodes: No pathologically enlarged lymph nodes. IMPRESSION:: 9 millimeter stone at the left ureteropelvic junction causing moderate hydronephrosis. Additional nonobstructing left renal calculi. Carotid Artery US: No Data to Display Pulmonary Function Test Interpretation: Pulmonary Function Test 05/27/24 15:20 Other Study Summary:: 04/14, gastric emptying study: no evidence of delated gastric emptying. 02/10, upper GI: hiatal hernia.
[2024-06-23] MEDS: Acetaminophen 500 MG TAB 1000 MG PO (15:52)
[2024-06-23] MEDS: Pantoprazole 40 MG VIAL IVP (15:58)
[2024-06-23] MEDS: Ketorolac 15 MG/ML VIAL IVP (15:59)
[2024-06-23] MEDS: Normal Saline Flush 10 ML SYR IVP (16:03)
[2024-06-23] MEDS: Normal Saline 500 ML IV (16:04)
--- NOTE | 2024-06-23 16:37 | DI.VRAD_ITS ---
PROCEDURE INFORMATION: Exam: CT Abdomen And Pelvis With Contrast Exam date and time: 06/23/2024 3:10 PM Age: 53 years old Clinical indication: Other: Lower abdominal pain TECHNIQUE: Imaging protocol: Computed tomography of the abdomen and pelvis with contrast. Radiation optimization: All CT scans at this facility use at least one of these dose optimization techniques: automated exposure control; mA and/or kV adjustment per patient size (includes targeted exams where dose is matched to clinical indication); or iterative reconstruction. Contrast material: OMNI 350; Contrast volume: 75 ml; Contrast route: INTRAVENOUS (IV); COMPARISON: CT ABDOMEN PELVIS W 10/05/2023 11:00 AM FINDINGS: Liver: Normal. No mass. Gallbladder and biliary ducts: Gallbladder surgically absent. Pancreas: Normal. No ductal dilation. Spleen: Normal. No splenomegaly. Adrenal glands: Normal. No mass. Kidneys and ureters: 9 mm stone proximal left ureter. Moderate left hydronephrosis. Nonobstructing calyceal stones both kidneys left renal pelvis. Stomach and bowel: Wall thickening at the stomach and distal esophageal esophagus similar to previous suggestive of a nonspecific gastritis and esophagitis. Postoperative changes at the epigastric region. Fluid and air collection at the region of the GE junction and adjacent to the lesser curvature of the stomach approximately 10 x 1.3 x 2 cm, slightly larger than previous. Correlate with clinical situation. Colonic diverticula present. No evidence of acute diverticulitis at this time. No evidence of intestinal perforation or obstruction. Appendix: No evidence of appendicitis. Intraperitoneal space: See Stomach and bowel finding. Vasculature: Mild stenosis proximal SMA. Aorta demonstrates mild atherosclerotic calcification. No abdominal aortic aneurysm. Lymph nodes: Unremarkable. No enlarged lymph nodes. Urinary bladder: Unremarkable as visualized. Reproductive: Stable 15 mm low-attenuation or cystic lesion at the fundus of the uterus. 2.3 cm low attenuation lesion right adnexa, and a 2 cm low-attenuation lesion left adnexa, possibly ovarian cysts. Bones/joints: Unremarkable. No acute fracture. Soft tissues: Diastasis recti and laxity of the ventral abdominal wall noted. IMPRESSION: 1. 9 mm stone proximal left ureter. Moderate left hydronephrosis. 2. Wall thickening at the stomach and distal esophageal esophagus similar to previous suggestive of a nonspecific gastritis and esophagitis. Postoperative changes at the epigastric region. Fluid and air collection at the region of the GE junction and adjacent to the lesser curvature of the stomach approximately 10 x 1.3 x 2 cm, slightly larger than previous. Correlate with clinical situation. 3. Stable 15 mm low-attenuation or cystic lesion at the fundus of the uterus. 4. 2.3 cm low attenuation lesion right adnexa, and a 2 cm low-attenuation lesion left adnexa, possibly ovarian cysts. Dictated and Authenticated by: Herbert Macario MD. Orderin Anya Serrano MD
[2024-06-23] MEDS: Tamsulosin 0.4 MG CAPCR PO (17:10)
[2024-06-23 17:31] LABS: Bilirubin Negative (Negative); Blood Small (Negative); Clarity Clear (Clear); Glucose Negative (Negative); Ketones 15 mg/dL (Negative); Leukocyte Esterase Negative (Negative); Nitrite Negative (Negative); Specific Gravity <= 1.005 (1.005-1.025); Urobilinogen 0.2 mg/dL (Up to 0.2); pH 5.5 (5-8)
[2024-06-23 17:43] LABS: Bacteria Negative HPF (Negative); C & S Indicated? No; Crystals Negative HPF (Negative); Epithelial Cells Negative HPF (Negative); Mucus Negative (Negative); RBC 0-2 HPF (0-2); WBC Negative HPF (0-5)
[2024-06-23] MEDS: MORPHine IR 15 MG TAB PO (17:43)
[2024-06-23] MEDS: MORPHine IR 15 MG TAB, 4 TABS/BTL PO (18:12)
== END 2024-06-23 18:23 | disposition home or self-care (01) ==
PROVIDERS: Registered Nurse Emergency; Emergency Provider Nurse Practitioner Family; PCP Nurse Practitioner Family
DX: N13.2 Hydronephrosis with renal and ureteral calculous obstruction (principal); E11.9 Type 2 diabetes mellitus without complications
CPT/HCPCS: 36415; 80053; 83690; 96361; 96374; 96375; 99285; 74177; 81003; 81015; 83735; 85025; J1885; J2270; J2405; J2470; J3490

== ENCOUNTER → 2024-06-24 09:21 | Outpatient (BNVA) | payer MEDICARE, SELFPAY | PROVIDERS: PCP Nurse Practitioner Family; Referring Provider Nurse Practitioner Family; Visit Provider Nurse Practitioner Gerontology | DX: N20.0 Calculus of kidney (principal) | CPT/HCPCS: 99215 ==

== ENCOUNTER 2024-07-01 06:59 | Day surgery (SDC) | payer MEDICARE, SELFPAY ==
[2024-07-01] VITALS (13 sets, daily range): BP systolic 114–148; BP diastolic 70–95; PULSE 65–86; RESP 12–20; TEMP 36–37; O2SAT 97–100; BMI 23.3
[2024-07-01] MEDS: Lactated Ringers 1,000 ML 80 ML IV (07:55)
--- NOTE | 2024-07-01 08:14 | W.ANESPRE ---
General Info Date of Service Date Performed: 07/01/24 Height: 5 ft 3 in Weight: 59.874 kg Body Mass Index (BMI): 23.3 Surgical Procedure: Operation Date: 07/01/24 08:40 Proposed Procedure Side Surgeon p Cystoscopy/Laser/Retrograde/Ureteroscopy/Stone Manipulation/ ? Stent Left Jh Montana MD Meds Allergies and Home Medications Allergies Allergy/AdvReac Type Severity Reaction Status Date / Time latex Allergy Severe HIVES, Verified 07/01/24 07:29 ITCHING erythromycin base AdvReac Intermediate NAUSEA, Verified 07/01/24 07:29 VOMITING chlorhexidine (From AdvReac Mild Itching Verified 07/01/24 07:29 Hibiclens) codeine AdvReac NAUSEA, Verified 07/01/24 07:29 VOMITING Dermabond Allergy Intermediate Skin Rash Uncoded 07/01/24 07:29 Glue Allergy Mild Rash and Uncoded 07/01/24 07:29 blisters Home Medication ?Medication ?Instructions ?Recorded cholecalciferol (vitamin D3) 50 2,000 unit PO DAILY 05/19/15 mcg (2,000 unit) capsule (Vitamin D3) blood-glucose meter (Huggler.comTouch #1 ea 07/13/22 Ultra2 Meter) metoclopramide HCl 5 mg tablet 5 mg PO TID PRN nausea and 08/10/22 (Reglan) vomiting #270 tabs fexofenadine 180 mg tablet 180 mg PO DAILY #90 tabs 03/20/23 montelukast 10 mg tablet 10 mg PO HS #90 tabs 09/14/23 (Singulair) levocetirizine 5 mg tablet 5 mg PO DAILY PRN allergy symptoms 09/21/23 #90 tabs multivitamin with minerals-iron See Rx Instructions PO DAILY #240 10/26/23 fumarate 9 mg iron/15 mL oral mL liquid (Complete Multivitamin-Multimineral) atorvastatin 10 mg tablet 10 mg PO QPM #90 tabs 12/28/23 buspirone 5 mg tablet 5 mg PO BID #180 tabs 12/28/23 cephalexin 500 mg capsule 500 mg PO TID #270 caps 12/28/23 fluoxetine 20 mg capsule 20 mg PO DAILY #90 caps 12/28/23 fluoxetine 40 mg capsule 40 mg PO DAILY #90 caps 12/28/23 gabapentin 300 mg capsule 300 mg PO BID #180 caps 12/28/23 lactase 9,000 unit tablet (Lactase 9,000 unit PO DAILY PRN lactose 12/28/23 Fast Acting) intolerance #90 tabs cyclobenzaprine 5 mg tablet 5 mg PO TID PRN back pain #60 tabs 01/01/24 albuterol sulfate 2.5 mg/3 mL 2.5 mg (3 mL) inhalation Q6H PRN 02/19/24 (0.083 %) solution for nebulization shortness of breath or wheezing #360 mL levalbuterol tartrate 45 2 inh inhalation Q6H PRN shortness 03/12/24 mcg/actuation aerosol inhaler of breath or wheezing #3 ea acetaminophen 500 mg tablet 1,000 mg (2 x 500 mg) PO TID #90 03/18/24 tabs blood sugar diagnostic (OneTouch #200 ea 03/21/24 Ultra Test strips) esomeprazole magnesium 40 mg 40 mg PO DAILY #90 caps 03/21/24 capsule,delayed release (Nexium) lancets (Ultra Thin Lancets) #200 ea 03/21/24 magnesium oxide 500 mg capsule 500 mg PO DAILY #90 caps 03/21/24 triamcinolone acetonide 0.1 % 1 applic topical BID PRN rash #80 03/21/24 topical cream grams dicyclomine 20 mg tablet 20 mg PO TID PRN abdominal pain 03/28/24 #90 tabs fluticasone fur. 200 mcg-umeclid 1 inh inhalation DAILY 30 days #60 04/30/24 62.5 mcg-vilant 25 mcg ea inhalat.powder (Trelegy Ellipta) tramadol 50 mg tablet 50 mg PO BID PRN pain #30 tabs 05/21/24 sumatriptan succinate 50 mg tablet 50 mg PO ONCE PRN migraine 06/03/24 headache #30 tabs morphine 15 mg immediate release 15 mg PO Q6H PRN #10 tabs 06/23/24 tablet ondansetron 4 mg disintegrating 4 mg PO Q8H PRN #14 tabs 06/23/24 tablet tamsulosin 0.4 mg capsule 0.4 mg PO DAILY #14 caps 06/23/24 Current Visit Medications: Current Medications Generic Name Dose Route Start Last Admin Trade Name Freq PRN Reason Stop Dose Admin Ringer's Solution 1,000 mls @ 80 mls/hr 07/01/24 06:00 07/01/24 07:55 IV 07/01/24 23:59 80 mls/hr INFUSION BROWN Administration Cefazolin Sodium/Dextrose 2 gm in 50 mls @ 100 mls/hr 07/01/24 06:00 Ancef Duplex IVPB 07/01/24 23:59 PREOP BROWN IV Miscellaneous Supplies 1 each 07/01/24 06:00 Iv Access IV 07/01/24 23:59 DIRECTED BROWN Sodium Chloride 0 ml 07/01/24 06:00 Normal Saline Flush 10 Ml Syr IV 07/01/24 23:59 PRN PRN Sodium Chloride 0 ml 07/01/24 06:00 Normal Saline 10 Ml Vial IJ 07/01/24 23:59 DIRECTED PRN Sterile Water 0 ml 07/01/24 06:00 Water,Injection,Sterile 10 Ml Vial IJ 07/01/24 23:59 DIRECTED PRN PFSH Active Problems Active Problems: Problem Status Onset Code Kidney stone Chronic N20.0 Tendinitis of left rotator cuff Acute M75.82 Trochanteric bursitis of left hip Acute M70.62 Left snapping hip Acute M24.852 Metabolic dysfunction-associated steatotic liver disease (MASLD) Chronic K76.0 Hyperlipidemia Chronic E78.5 Asthma-COPD overlap syndrome Chronic J44.89 Prediabetes Chronic R73.03 Right upper lobe pulmonary nodule Chronic ~10/2021 Major depressive disorder, recurrent Chronic F33.9 Generalized anxiety disorder Chronic F41.1 Gastroesophageal reflux disease with esophagitis Chronic K21.0 Dysphagia Chronic R13.10 At risk for aspiration Chronic Z91.89 Migraine Chronic G43.909 Degenerative joint disease, shoulder, 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 Degenerative joint disease, shoulder, 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 Medical History Medical History Type 2 diabetes mellitus Tubular adenoma of colon On 2019 colonoscopy Bilateral nephrolithiasis Pyloric ulcer associated with Helicobacter pylori 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 Surgical History Surgical History S/P repair of paraesophageal hernia (07/04/22) Repaired in a revised T[place]et fundoplication d/t multiple prior repairs History of fundoplication (07/04/22) Toupet fundoplication for revision of prior nga fundoplication 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) left TKA on 07/06/17 left knee synovectomy and polyethylene exchange on 08/22/17 irrigation and debridement with polyethylene exchange and placement of antibiotic beads on 09/13/17 explantation of left knee arthroplasty with placement of cement spacer on 10/19/17 2-stage revision left knee arthroplasty on 12/22/17 irrigation and debridement of left knee with antibiotic bead placement on 04/22/18 History of colonoscopy (05/15/23) History of carpal tunnel surgery of right wrist (04/05/22) History of arthroscopy of left shoulder (02/07/23) History of arthroscopy of right shoulder (03/02/22) S/P recurrent ventral herniorrhaphy Status post total left knee replacement (07/06/17) Status post arthroscopy of left knee (08/21/19) Hx of cystoscopy Lithotripsy, stents x 3 History of total right knee replacement History of esophagogastroduodenoscopy History of incisional hernia repair Status post Nga fundoplication Status post cholecystectomy Status post laparoscopic hysterectomy Status post tonsillectomy Status post revision of total replacement of left knee (07/21/20) Patellar resurfacing DOS: 07/21/2020 DOS: 12/22/17 Dr. Gongora Tobacco Smoking/Tobacco Use Status: Never Passive smoking exposure: Yes Second hand exposure: Yes Alcohol Alcohol Intake: former Substance Use Substance use: Never Substance use type: does not use Vital Signs and Lab Results Vital Signs Most Recent Vital Signs in EMR: Most Recent Vital Signs Temp Pulse Resp BP Pulse Ox 36.2 C L 76 16 139/95 H 98 07/01/24 07:20 07/01/24 07:20 07/01/24 07:20 07/01/24 07:20 07/01/24 07:20 Lab Results Blood Type / Crossmatch: No Data to Display Complete Blood Count: White Blood Count 10.60 10^3/uL (4.4-10.8) 06/23/24 14:26 Red Blood Count 3.85 10^6/uL (3.93-5.22) L 06/23/24 14:26 Hemoglobin 13.3 g/dL (11.2-15.7) 06/23/24 14:26 Hematocrit 37.7 % (36.0-46.0) 06/23/24 14:26 Platelet Count 273 10^3/uL (130-400) 06/23/24 14:26 Complete Metabolic Panel: Sodium 139 mmol/L (136-145) 06/23/24 14:26 Potassium 3.7 mmol/L (3.5-5.1) 06/23/24 14:26 Chloride 104 mmol/L (98-107) 06/23/24 14:26 Carbon Dioxide 26.1 mmol/L (21.0-32.0) 06/23/24 14:26 BUN 11 mg/dL (7-18) 06/23/24 14:26 Creatinine 1.2 mg/dL (0.55-1.02) H 06/23/24 14:26 Est GFR (CKD-EPI 2020) 53.79 (mL/min/1.73m2) 06/23/24 14:26 Magnesium 1.7 mg/dL (1.8-2.4) L 06/23/24 14:26 Calcium 10.0 mg/dL (8.5-10.1) 06/23/24 14:26 Albumin 3.3 g/dL (3.4-5.0) L 06/23/24 14:26 Glucose 173 mg/dL (74-106) H 06/23/24 14:26 Hemoglobin A1c 5.7 % (4.5-5.7) 06/03/24 09:34 Liver Function Panel: Alanine Aminotransferase (ALT/SGPT) 16 U/L (14-59) 06/23/24 14:26 Aspartate Amino Transf (AST/SGOT) 11 U/L (15-37) L 06/23/24 14:26 Coagulation Panel: No Data to Display Cardiac Panel: No Data to Display Arterial Blood Gas: No Data to Display Venous Blood Gas: No Data to Display Pancreas Panel: Lipase 28 U/L (<78) 06/23/24 14:26 Thyroid Panel: No Data to Display Infectious Disease: No Data to Display Blood Cultures: No Data to Display Toxicology Panel: No Data to Display Panel: No Data to Display Imaging and Studies Imaging and Studies Study information below may be from another EMR and interpreted by another provider. Please see original notes in EMR for more complete details. CT Summary: Exam(s) CT ABDOMEN PELVIS W EXAM: CT ABDOMEN PELVIS W CLINICAL HISTORY: lower Abdominal pain. TECHNIQUE: Imaging Protocol: Axial computed tomography images with coronal and sagittal reformatted images were created and reviewed CONTRAST MATERIAL: Intravenous: Omnipaque 350 Contrast volume:70 ml Oral: no COMPARISON: CT CT ABDOMEN PELVIS W from 10/05/2023 FINDINGS: ABDOMEN and PELVIS: Lung Bases: No acute findings. Similar appearance of thickening of the distal is esophagus and upper fundus likely representing this in fundoplication. Similar appearance to Liver: Normal density. No suspicious mass. Gallbladder and biliary tract: Cholecystectomy. No biliary dilation. Pancreas: Normal density. No abnormal calcifications or inflammatory process. No evidence of mass. Spleen: Normal. Kidneys: Normal size, contour and axis. The 6 millimeter stone upper cyst upper pole left kidney. Larger stones noted at the lower pole. None millimeters stone at the ureteropelvic junction causing moderate left hydronephrosis. There is some delay in the left nephrogram. There is mild left perinephric stranding. No suspicious masses seen. Adrenal glands: No masses seen. Vasculature: Abdominal aorta non-dilated. Mild atherosclerotic calcification Soft tissues: The midline abdominal wall hernia repair. Bladder: Nearly empty. No gross wall thickening. No calculi.No focal mass. Bowel: No obstruction. No bowel wall thickening. Appendix normal. Peritoneal cavity: No ascites. No focal collection. No mesenteric inflammatory response. No free air. Bones: Unremarkable for age. Reproductive organs: Status post hysterectomy with residual cervical stump. Similar appearing cystic lesion at the cervix, likely nabothian cyst. Small cyst right ovary. Lymph nodes: No pathologically enlarged lymph nodes. IMPRESSION:: 9 millimeter stone at the left ureteropelvic junction causing moderate hydronephrosis. Additional nonobstructing left renal calculi. Other Study Summary:: 04/14, gastric emptying study: no evidence of delated gastric emptying. 02/10, upper GI: hiatal hernia. Anesthesia Assessment and Plan Anesthesia History Personal History: No History of Anesthesia Complications Family History: No Family History of Anesthesia Complications Exercise Tolerance Exercise Tolerance: Metabolic Equivalents>4 Pertinent Negatives Pertinent Negatives: No Symptoms of GERD, No Major Cardiovascular Symptoms or Complaints and No History of CVA/TIA Cardiac & Pulmonary Exam Cardiac Exam: Normal S1/S2 Heart Sounds Pulmonary Exam: Clear Bilateral Breath Sounds and No cough or Cold Implantable Cardiac Device Does patient have a Pacemaker or an ICD?: No Airway Exam Known Difficult Airway: No Mallampati Class: 3 Mouth Opening: Narrow (< 3cm) Thyromental Distance: Less than 3 cm Neck Range of Motion: Full ROM Neck Circumference: Normal Teeth Condition: Generalized Poor Dentition and Loose or Chipped (some broken molars, none loose per patient) ASA Classification ASA Score: ASA 3 Emergency Case?: No NPO Status NPO Status: NPO Clears >2 hours, Solids >8 hours Status Status: Not Relevant due to Medical History Anesthesia Plan Resuscitation Status: Full Code Anesthesia Technique: General Anesthesia Airway Planned: Endotracheal Tube Monitors Used: Standard Monitors and SedLine
--- NOTE | 2024-07-01 08:15 | HPE_ITS ---
Date of service: 07/01/24 Time of Service: 08:15 Assessment and Plan Assessment and plan (1) Kidney stone: Status: Chronic (2) Left ureteral stone: Status: Acute Assessment and plan: We will plan to do cystoscopy, left retrograde pyelogram and left ureteroscopy. At a minimum, we would like to address the obstructing ureteral stone with today's procedure. She does have additional significant stone burden up in her left kidney. Given the amount of stone burden, it would not surprise me if we would require a staged procedure if we want to deal with all of her stones. History of Present Illness History of Present Illness Chief Complaint: Left ureteral stone Narrative: This is a 53-year-old woman who has a past history of urolithiasis. Her previous surgeries have been done at [facility]. She presented recently with a left renal colic. She was found to have a large obstructing left proximal ureteral stone. She also has additional large stones up in her left kidney. The kidney stones are nonobstructing at this point in time. She continues to be symptomatic with flank pain and nausea. She is not having any fevers or chills. She presents for ureteroscopy and holmium laser lithotripsy of her stones. She is hopeful that all of her stone burden can be treated, but she understands that a staged procedure is likely. She does have a history of infected knee prostheses. Her last knee surgery was over 2 years ago. Her infection was related to staph. Review of Systems Narrative: No fevers or chills No vision change or dysphasia No diabetes or thyroid dysfunction Asthma/COPD. No hemoptysis No chest pain or palpitations GERD. 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 No gout PFSH All Active Problems (Updated 07/01/24 @ 08:22 by Jh Montana MD) Left ureteral stone (Acute) Kidney stone (Chronic) Tendinitis of left rotator cuff (Acute) Trochanteric bursitis of left hip (Acute) Left snapping hip (Acute) Metabolic dysfunction-associated steatotic liver disease (MASLD) (Chronic) Hyperlipidemia (Chronic) Asthma-COPD overlap syndrome (Chronic) Prediabetes (Chronic) Right upper lobe pulmonary nodule (Chronic ~10/2021) Major depressive disorder, recurrent (Chronic) Generalized anxiety disorder (Chronic) Gastroesophageal reflux disease with esophagitis (Chronic) s/p Toupet fundoplication Dysphagia (Chronic) At risk for aspiration (Chronic) Gastric contents noted in mouth after all general ETT anesthetics. Recommend ETT for GA. 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) left TKA on 07/06/17 left knee synovectomy and polyethylene exchange on 08/22/17 irrigation and debridement with polyethylene exchange and placement of antibiotic beads on 09/13/17 explantation of left knee arthroplasty with placement of cement spacer on 10/19/17 2-stage revision left knee arthroplasty on 12/22/17 irrigation and debridement of left knee with antibiotic bead placement on 04/22/18 History of colonoscopy (05/15/23) History of carpal tunnel surgery of right wrist (04/05/22) History of arthroscopy of left shoulder (02/07/23) History of arthroscopy of right shoulder (03/02/22) S/P recurrent ventral herniorrhaphy Status post total left knee replacement (07/06/17) Status post arthroscopy of left knee (08/21/19) Hx of cystoscopy Lithotripsy, stents x 3 History of total right knee replacement History of esophagogastroduodenoscopy History of incisional hernia repair Status post Nga fundoplication Status post cholecystectomy Status post laparoscopic hysterectomy Status post tonsillectomy Status post revision of total replacement of left knee (07/21/20) Patellar resurfacing DOS: 07/21/2020 DOS: 12/22/17 Dr. Prohaska Family History Mother Depression Hyperlipidemia Hypertension Father , 72 Diabetes Heart disease Leukemia Hypertension Sister No problems noted. Maternal Grandfather , 80 Heart disease Hyperlipidemia Paternal Grandfather , 80 Diabetes Heart disease Hyperlipidemia Maternal Grandmother , 82 Diabetes Heart disease Paternal Grandmother , 73 Heart disease Hyperlipidemia Asthma Diabetes Social History Smoking/Tobacco Use Status: Never Second Hand Exposure: Yes Smoking risk assessment performed?: Yes Alcohol Intake: former Drug use: Never Substance use type: does not use Adopted: No Caregiver/Support person: No Foster care: No Household members: spouse Housing: house Communication Needs: None Education Level: high school Details: 12TH Do you need help understanding health information?: Never current occupation: Disabled Pets and animals: Yes Pets and animals: cat(s) and dog(s) Sexually active: Yes Do you think of yourself as: straight/heterosexual Current gender identity: female What is your relationship status?: How often do you talk on the phone with friends or family?: three or more times per week How often do you get together with friends or relatives?: twice per week How often do you attend cheondoism or orthodoxy services?: decline to answer Do you belong to any clubs or organized social groups?: no Panel score (0-1 are the most socially isolated patients): 2 What type of physical activity do you participate in: walking and other Details: PT at home Duration: 15-30 minutes/day Frequency: 3-4 times per week Sita/Buddhist: No preference Special sita needs: No Seatbelt use: always Helmet use: No Drive intox or ride w/intox rickshaw driver: No Firearms in home: No Do you feel safe at home: Yes Do you feel safe in your relationship?: Yes Victim of physical abuse: No Victim of emotional abuse: No Victim of sexual abuse: No Would you like helpful sources: No Meds Allergies and Home Medications Allergies Allergy/AdvReac Type Severity Reaction Status Date / Time latex Allergy Severe HIVES, Verified 07/01/24 07:29 ITCHING erythromycin base AdvReac Intermediate NAUSEA, Verified 07/01/24 07:29 VOMITING chlorhexidine (From AdvReac Mild Itching Verified 07/01/24 07:29 Hibiclens) codeine AdvReac NAUSEA, Verified 07/01/24 07:29 VOMITING Dermabond Allergy Intermediate Skin Rash Uncoded 07/01/24 07:29 Glue Allergy Mild Rash and Uncoded 07/01/24 07:29 blisters Home Medications ?Medication ?Instructions ?Recorded ?Confirmed ?Type cholecalciferol (vitamin D3) 50 2,000 unit PO DAILY 05/19/15 07/01/24 History mcg (2,000 unit) capsule (Vitamin D3) blood-glucose meter (OneTouch #1 ea 07/13/22 06/23/24 Rx Ultra2 Meter) metoclopramide HCl 5 mg tablet 5 mg PO TID PRN nausea and 08/10/22 07/01/24 Rx (Reglan) vomiting #270 tabs fexofenadine 180 mg tablet 180 mg PO DAILY #90 tabs 03/20/23 07/01/24 Rx montelukast 10 mg tablet 10 mg PO HS #90 tabs 09/14/23 07/01/24 Rx (Singulair) levocetirizine 5 mg tablet 5 mg PO DAILY PRN allergy symptoms 09/21/23 07/01/24 Rx #90 tabs multivitamin with minerals-iron See Rx Instructions PO DAILY #240 10/26/23 07/01/24 Rx fumarate 9 mg iron/15 mL oral mL liquid (Complete Multivitamin-Multimineral) atorvastatin 10 mg tablet 10 mg PO QPM #90 tabs 12/28/23 07/01/24 Rx buspirone 5 mg tablet 5 mg PO BID #180 tabs 12/28/23 07/01/24 Rx cephalexin 500 mg capsule 500 mg PO TID #270 caps 12/28/23 07/01/24 Rx fluoxetine 20 mg capsule 20 mg PO DAILY #90 caps 12/28/23 07/01/24 Rx fluoxetine 40 mg capsule 40 mg PO DAILY #90 caps 12/28/23 07/01/24 Rx gabapentin 300 mg capsule 300 mg PO BID #180 caps 12/28/23 07/01/24 Rx lactase 9,000 unit tablet (Lactase 9,000 unit PO DAILY PRN lactose 12/28/23 07/01/24 Rx Fast Acting) intolerance #90 tabs cyclobenzaprine 5 mg tablet 5 mg PO TID PRN back pain #60 tabs 01/01/24 07/01/24 Rx albuterol sulfate 2.5 mg/3 mL 2.5 mg (3 mL) inhalation Q6H PRN 02/19/24 07/01/24 Rx (0.083 %) solution for nebulization shortness of breath or wheezing #360 mL levalbuterol tartrate 45 2 inh inhalation Q6H PRN shortness 03/12/24 07/01/24 Rx mcg/actuation aerosol inhaler of breath or wheezing #3 ea acetaminophen 500 mg tablet 1,000 mg (2 x 500 mg) PO TID #90 03/18/24 07/01/24 Rx tabs blood sugar diagnostic (OneTouch #200 ea 03/21/24 06/23/24 Rx Ultra Test strips) esomeprazole magnesium 40 mg 40 mg PO DAILY #90 caps 03/21/24 07/01/24 Rx capsule,delayed release (Nexium) lancets (Ultra Thin Lancets) #200 ea 03/21/24 06/23/24 Rx magnesium oxide 500 mg capsule 500 mg PO DAILY #90 caps 03/21/24 06/28/24 Rx triamcinolone acetonide 0.1 % 1 applic topical BID PRN rash #80 03/21/24 07/01/24 Rx topical cream grams dicyclomine 20 mg tablet 20 mg PO TID PRN abdominal pain 03/28/24 07/01/24 Rx #90 tabs fluticasone fur. 200 mcg-umeclid 1 inh inhalation DAILY 30 days #60 04/30/24 07/01/24 Rx 62.5 mcg-vilant 25 mcg ea inhalat.powder (Trelegy Ellipta) tramadol 50 mg tablet 50 mg PO BID PRN pain #30 tabs 05/21/24 07/01/24 Rx sumatriptan succinate 50 mg tablet 50 mg PO ONCE PRN migraine 06/03/24 07/01/24 Rx headache #30 tabs morphine 15 mg immediate release 15 mg PO Q6H PRN #10 tabs 06/23/24 07/01/24 Rx tablet ondansetron 4 mg disintegrating 4 mg PO Q8H PRN #14 tabs 06/23/24 07/01/24 Rx tablet tamsulosin 0.4 mg capsule 0.4 mg PO DAILY #14 caps 06/23/24 07/01/24 Rx Exam Const General: cooperative Neck Neck: supple Resp Effort & Inspection: normal respiratory effort Auscultation: clear to auscultation bilaterally Cardio Rate: regular rate Rhythm: regular rhythm GI Inspection: normal to inspection Palpation: soft and no masses Neuro General: patient alert, patient awake and patient oriented x3 Results Last Vital Signs Temp 36.2 C L 07/01/24 07:20 Pulse 76 07/01/24 07:20 Resp 16 07/01/24 07:20 BP 139/95 H 07/01/24 07:20 Pulse Ox 98 07/01/24 07:20 Time Spent Time spent with Patient: <40 minutes Time was spent: other
[2024-07-01] MEDS: ceFAZolin 2 GM/50 ML BAG IVPB (08:56)
[2024-07-01] MEDS: Lidocaine 2% Jelly 6 ML SYR (09:07)
[2024-07-01] MEDS: Omnipaque 300 MG/ML 50 ML BTL (09:26)
--- NOTE | 2024-07-01 10:10 | DI.RAD_ITS ---
Exam(s) XR RETROGRADE IN OR EXAM: XR RETROGRADE IN OR CLINICAL HISTORY: LEFT URETERAL STONE TECHNIQUE: 2D and realtime digital imaging was performed. CONTRAST MATERIAL: Refer to procedure report. COMPARISON: CT CT ABDOMEN PELVIS W from 06/23/2024 FINDINGS: Fluoroscopy was provided for Dr. Montana during the performance of a retrograde evaluation of the jenna l collecting system. Portions of a left nephroureteral stent are in place.. Please refer to the pro cedure report for complete details. beth Melo=8.53 mGy IMPRESSION: RADIATION DOSE DELIVERED: 0.0 0.0 0
--- NOTE | 2024-07-01 10:11 | W.PM.DSUDISC ---
Date of service: 07/01/24 Discharge Plan Disposition Patient Disposition: Home Discharge Details Reason For Visit: ureteroscopy Attending Provider: Jh Montana Primary Care Provider: Renetta Bonner Home Meds and New Rx's Prescriptions: No Action (DME) blood-glucose meter [OneTouch Ultra2 Meter] Misc See Rx Instructions .Route Qty: 1 3RF Rx Instructions: Check blood sugar twice a day levocetirizine 5 mg tablet 5 mg PO DAILY PRN (Reason: allergy symptoms) Qty: 90 3RF lactase [Lactase Fast Acting] 9,000 unit tablet 9,000 unit PO DAILY PRN (Reason: lactose intolerance) Qty: 90 3RF atorvastatin 10 mg tablet 10 mg PO QPM Qty: 90 3RF buspirone 5 mg tablet 5 mg PO BID Qty: 180 3RF cephalexin 500 mg capsule 500 mg PO TID Qty: 270 3RF fluoxetine 20 mg capsule 20 mg PO DAILY Qty: 90 3RF Rx Instructions: Take with 40mg cap for a total of 60mg fluoxetine 40 mg capsule 40 mg PO DAILY Qty: 90 3RF Rx Instructions: Take with 20mg cap for a total of 60mg gabapentin 300 mg capsule 300 mg PO BID Qty: 180 3RF sumatriptan succinate 50 mg tablet 50 mg PO ONCE MDD 2 pills PRN (Reason: migraine headache) Qty: 30 4RF Rx Instructions: Take one tab at onset of headache. May repeat in 1 hour if no relief. fexofenadine 180 mg tablet 180 mg PO DAILY Qty: 90 3RF triamcinolone acetonide 0.1 % cream 1 applic topical BID PRN (Reason: rash) Qty: 80 1RF magnesium oxide 500 mg capsule 500 mg PO DAILY Qty: 90 3RF esomeprazole magnesium [Nexium] 40 mg capsule,delayed release(DR/EC) 40 mg PO DAILY Qty: 90 3RF Patient Comments: pt. states it is omeprazole (DME) OneTouch Ultra Test Strip 1 ea Miscellaneous DAILY Qty: 200 3RF Rx Instructions: Check blood sugar twice a day (DME) lancets [Ultra Thin Lancets] Misc 1 ea Miscellaneous DAILY Qty: 200 3RF Rx Instructions: Check blood sugar twice a day cholecalciferol (vitamin D3) [Vitamin D3] 2,000 UNIT capsule 2,000 unit PO DAILY metoclopramide HCl [Reglan] 5 mg tablet 5 mg PO TID PRN (Reason: nausea and vomiting) Qty: 270 3RF montelukast [Singulair] 10 mg tablet 10 mg PO HS Qty: 90 3RF Complete Multivitamin-Mineral 9 mg iron/15 mL liquid See Rx Instructions PO DAILY Qty: 240 3RF Rx Instructions: orally daily; cyclobenzaprine 5 mg tablet 5 mg PO TID PRN (Reason: back pain) Qty: 60 1RF Rx Instructions: Take 1 tablet by mouth three times a day as needed for back pain albuterol sulfate 2.5 mg /3 mL (0.083 %) solution for nebulization 2.5 mg Inhalation Q6H PRN (Reason: shortness of breath or wheezing) Qty: 360 3RF Patient Comments: 07/03/17 Per pt uses every night.jw levalbuterol tartrate 45 mcg/actuation HFA aerosol inhaler 2 inh inhalation Q6H PRN (Reason: shortness of breath or wheezing) Qty: 3 4RF acetaminophen 500 mg tablet 1,000 mg PO TID Qty: 90 0RF dicyclomine 20 mg tablet 20 mg PO TID PRN (Reason: abdominal pain) Qty: 90 3RF Trelegy Ellipta 200-62.5-25 mcg blister with device 1 inh inhalation DAILY 30 Days Qty: 60 12RF tramadol 50 mg tablet 50 mg PO BID PRN (Reason: pain) Qty: 30 0RF ondansetron 4 mg tablet,disintegrating 4 mg PO Q8H PRNQty: 14 0RF tamsulosin 0.4 mg capsule 0.4 mg PO DAILY Qty: 14 0RF morphine 15 mg tablet 15 mg PO Q6H PRNQty: 10 0RF Discharge Instructions Additional Instructions: There is no need to strain your urine Do not be surprised if you see blood in the urine or have increased urinary frequency or urgency. These can all happen as long as you have a stent in the ureter My office will contact you to set up your next surgery. At that time, I will plan to remove your ureteral stent and run the scope back up to your kidney to make sure that all stones have been treated. Discharge Orders Discharge Orders: Discharge Order (Routine); Ordered 07/01/24 Ordered By: Jh Montana DS: Diagnosis Discharge Diagnosis (1) Kidney stone: Status: Chronic (2) Left ureteral stone: Status: Acute
--- NOTE | 2024-07-01 10:15 | W.PM.OP ---
Operative Note Operative Note PRE-OP DIAGNOSIS: Left ureteral stone POST-OP DIAGNOSIS: same left kidney stone PROCEDURE: cystoscopy, left retrograde pyelogram, left flexible ureteroscopy, holmium laser lithotripsy of left ureteral and left renal stones, extraction of stones, insert left ureteral stent SURGEON: Jh Montana ANESTHESIA TYPE: Local By Surgeon and General LMA/ETT Refer to Anesthesia Record ESTIMATED BLOOD LOSS: 5 PATHOLOGY: other (stones for chemical analysis) COMPLICATIONS: None Patient was transported to: PACU Patient's condition: stable Implants: 6 [place] by 22 to 30 cm left ureteral stent Indications: This is a 53-year-old woman who has a past history of kidney stones. She required ureteroscopic treatment about 6 years ago. The surgery was done at [facility]. She presented recently with a left renal colic. She was found to have an obstructing left proximal ureteral stone. The stone measured approximately 9 mm in size. She has additional nonobstructing stones in the left kidney. She presents now for stone manipulation. Findings: Large stone in left proximal ureter Additional stones in the left kidney (upper pole calyx and lower pole calyx) Procedure Description: The patient was given IV antibiotics and brought to the operating room on 07/01/2024. After successful induction of general anesthesia, she was placed in the dorsal lithotomy position. Her genitalia was prepped and draped sterilely. 2% Xylocaine jelly was instilled into the urethra. A 22 [place]er rigid cystoscope was then passed through the urethra into the bladder. The bladder was inspected with a 30 degree lens. Both ureteral orifices appeared normal with no blood coming from either side. I was able to cannulate the left ureteral orifice with a 5 [place]er access catheter. I then injected Omnipaque through the access catheter under fluoroscopic guidance and we outlined a filling defect in the left proximal ureter. I passed a guidewire through the lumen of the access catheter and removed the catheter once the wire was in place. I passed a dual-lumen catheter over the wire and positioned a second wire. We chose one of the wires as a working wire and the other as a safety wire. I removed the dual-lumen catheter and passed a ureteral access sheath over the working wire leaving the safety wire in place. I passed a disposable flexible ureteroscope through the ureteral access sheath up until the stone was visualized in the proximal ureter. The stone was then treated with a 272 ?m holmium laser fiber and dusting settings to fragment the stone. The stone fragmented quite nicely and I was able to grasp multiple small stone fragments and a 0 tip stone basket and remove them. The fragments were sent for chemical analysis. Once the ureteral stone had been addressed, I passed the scope up into the left kidney. I was able to visualize a rather's large stone in one of the upper pole calyces. I was able to grasp the stone and a 0 tip basket and remove the large stone in its entirety. The larger stone was also sent for chemical analysis. In the lower pole calyces, I identified an additional stone. I treated the lower pole stone with the 272 ?m holmium laser fiber and extracted multiple stone fragments from the lower pole as well. As we continued working, visibility became compromised, so we elected to place a ureteral stent and make arrangements to return to the operating room in a week or 2 to remove the ureteral stent and repeat flexible ureteroscopy to ensure that all stone fragments had been dealt with. I removed the ureteral access sheath and passed a dual-lumen catheter over the safety wire. I injected Omnipaque through the second lumen of the dual-lumen catheter and found no sign of extravasation of contrast. I then removed the dual-lumen catheter and passed a 6 [place]er variable length stent over the safety wire. The stent was positioned with the proximal end curled in the renal pelvis and the distal end curled within the bladder. The positioning of the stent was confirmed both fluoroscopically and cystoscopically. The patient tolerated this procedure well with no complications. She was taken to the recovery room in stable condition. Date of Procedure: 07/01/24
[2024-07-01] MEDS: traMADol 50 MG TAB PO (11:06)
[2024-07-01] MEDS: Phenazopyridine 200 MG TAB PO (11:06)
--- NOTE | 2024-07-01 11:18 | W.ANESPOSTOP ---
Postoperative Evaluation Date, Time and Location Date Performed: 07/01/24 Time Performed: 11:02 Patient Location: Day Surgery Unit Vital Signs Most Recent Imported Vital Signs: Most Recent Vital Signs Temp Pulse Resp BP Pulse Ox 37.0 C 74 12 134/86 97 07/01/24 10:40 07/01/24 10:40 07/01/24 10:40 07/01/24 10:40 07/01/24 10:40 Pain Score Most Recent Pain Score: Most Recent Pain Score Pain Level 0 07/01/24 10:40 Assessment Mental Status: Awake (Alert & Oriented to Patient Baseline) Airway and Respiratory Function: Patent airway with normal (patient baseline) respiratory exam Cardiovascular Function: Hemodynamically Stable Hydration Status: Adequately Hydrated Nausea & Vomiting: No Nausea or Vomiting Pain: Pt. Denies Any Pain Peripheral Nerve Block: Patient did not receive a nerve block
[2024-07-08 14:49] LABS: Source: Left Ureter
== END 2024-07-01 12:05 | disposition home or self-care (01) ==
PROVIDERS: PCP Nurse Practitioner Family; Visit Provider Urology
PROC: (CPT 52356; principal; 2024-07-01 08:30)
DX: N13.0 Hydronephrosis with ureteropelvic junction obstruction (principal); J44.9 Chronic obstructive pulmonary disease, unspecified; K76.0 Fatty (change of) liver, not elsewhere classified; K21.00 Gastro-esophageal reflux disease with esophagitis, without bleeding; F41.1 Generalized anxiety disorder; E11.9 Type 2 diabetes mellitus without complications
CPT/HCPCS: 52356; 74420; 82365; J0131; J0690; J1100; J2003; J2250; J2405; J2704; Q9967

== ENCOUNTER 2024-07-10 02:04 | Outpatient (CLI) | payer MEDICARE, SELFPAY ==
--- NOTE | 2024-07-10 07:24 | DI.MAMMO_ITS ---
Exam(s) MAMMO SCREENING EXAM: MAMMO SCREENING CLINICAL HISTORY: screening,z12.39 TECHNIQUE: Bilateral full field digital CC and MLO mammographic images were obtained with 3D tomosyn thesis and utilizing computer aided detection (CAD). COMPARISON: Available for comparison. FINDINGS: Masses/Architectural Distortion: No suspicious masses or areas of architectural distortion are presen t. Microcalcifications: No suspicious pleomorphic-type are seen. Skin Thickening/Nipple Retraction: None. IMPRESSION: 1. No significant interval change with no specific features of malignancy noted. 2. Unless there is more urgent need, screening mammography is recommended, as per [employer] [place] [employer] guidelines. BI-RADS Category 1 - Negative Breast Density - Category B - There are scattered areas of fibroglandular density. Breast density Category C or D implies that the patient has dense breast tissue. Dense breast tissue can make it harder to find cancer on a mammogram. Dense breast tissue is also associated with an incr eased risk of breast cancer. This information about the result of the mammogram report was provided to the patient to raise their awareness. Use this report when you speak with the patient about their risks for breast cancer, which includes their family history. At that time, you may recommend additional screening tests (Ultrasoun d or MRI) as these tests may add significant information. A negative radiographic report should not delay biopsy if a dominant or clinically suspicious mass is present. Up to ten percent of cancers are not identified on mammography. A negative report may reinforce clinical impression. Adenosis and dense breasts may obscure an underlying neoplasm. False positive reports average 6 to 10%. Patient will receive a letter notifying them of these results.
== END 2024-07-10 02:24 ==
LOC: DI 02:04
PROVIDERS: PCP Nurse Practitioner Family; Visit Provider Nurse Practitioner Family
DX: Z12.31 Encounter for screening mammogram for malignant neoplasm of breast (principal); R92.323 Mammographic fibroglandular density, bilateral breasts
CPT/HCPCS: 77063; 77067

== ENCOUNTER 2024-07-11 08:29 | Day surgery (SDC) | payer MEDICARE, SELFPAY ==
--- NOTE | 2024-07-10 16:44 | ANES.PREOP_ITS ---
General Info Date of Service Date Performed: 07/11/24 Height: 5 ft 3 in Weight: 59.874 kg Body Mass Index (BMI): 23.3 Surgical Procedure: Operation Date: 07/11/24 10:25 Proposed Procedure Side Surgeon p Cystoscopy/Laser/Retrograde/Ureteroscopy/Stent Removal Left Jh Montana MD Meds Allergies and Home Medications Allergies Allergy/AdvReac Type Severity Reaction Status Date / Time latex Allergy Severe HIVES, Verified 07/11/24 09:11 ITCHING erythromycin base AdvReac Intermediate NAUSEA, Verified 07/11/24 09:11 VOMITING chlorhexidine (From AdvReac Mild Itching Verified 07/11/24 09:11 Hibiclens) codeine AdvReac NAUSEA, Verified 07/11/24 09:11 VOMITING Dermabond Allergy Intermediate Skin Rash Uncoded 07/11/24 09:11 Glue Allergy Mild Rash and Uncoded 07/11/24 09:11 blisters Home Medication ?Medication ?Instructions ?Recorded cholecalciferol (vitamin D3) 50 2,000 unit PO DAILY 05/19/15 mcg (2,000 unit) capsule (Vitamin D3) blood-glucose meter (OneTouch #1 ea 07/13/22 Ultra2 Meter) metoclopramide HCl 5 mg tablet 5 mg PO TID PRN nausea and 08/10/22 (Reglan) vomiting #270 tabs fexofenadine 180 mg tablet 180 mg PO DAILY #90 tabs 03/20/23 montelukast 10 mg tablet 10 mg PO HS #90 tabs 09/14/23 (Singulair) levocetirizine 5 mg tablet 5 mg PO DAILY PRN allergy symptoms 09/21/23 #90 tabs multivitamin with minerals-iron See Rx Instructions PO DAILY #240 10/26/23 fumarate 9 mg iron/15 mL oral mL liquid (Complete Multivitamin-Multimineral) atorvastatin 10 mg tablet 10 mg PO QPM #90 tabs 12/28/23 buspirone 5 mg tablet 5 mg PO BID #180 tabs 12/28/23 cephalexin 500 mg capsule 500 mg PO TID #270 caps 12/28/23 fluoxetine 20 mg capsule 20 mg PO DAILY #90 caps 12/28/23 fluoxetine 40 mg capsule 40 mg PO DAILY #90 caps 12/28/23 gabapentin 300 mg capsule 300 mg PO BID #180 caps 12/28/23 lactase 9,000 unit tablet (Lactase 9,000 unit PO DAILY PRN lactose 12/28/23 Fast Acting) intolerance #90 tabs cyclobenzaprine 5 mg tablet 5 mg PO TID PRN back pain #60 tabs 01/01/24 albuterol sulfate 2.5 mg/3 mL 2.5 mg (3 mL) inhalation Q6H PRN 02/19/24 (0.083 %) solution for nebulization shortness of breath or wheezing #360 mL levalbuterol tartrate 45 2 inh inhalation Q6H PRN shortness 03/12/24 mcg/actuation aerosol inhaler of breath or wheezing #3 ea acetaminophen 500 mg tablet 1,000 mg (2 x 500 mg) PO TID #90 03/18/24 tabs blood sugar diagnostic (OneTouch #200 ea 03/21/24 Ultra Test strips) esomeprazole magnesium 40 mg 40 mg PO DAILY #90 caps 03/21/24 capsule,delayed release (Nexium) lancets (Ultra Thin Lancets) #200 ea 03/21/24 magnesium oxide 500 mg capsule 500 mg PO DAILY #90 caps 03/21/24 triamcinolone acetonide 0.1 % 1 applic topical BID PRN rash #80 03/21/24 topical cream grams dicyclomine 20 mg tablet 20 mg PO TID PRN abdominal pain 03/28/24 #90 tabs fluticasone fur. 200 mcg-umeclid 1 inh inhalation DAILY 30 days #60 04/30/24 62.5 mcg-vilant 25 mcg ea inhalat.powder (Trelegy Ellipta) tramadol 50 mg tablet 50 mg PO BID PRN pain #30 tabs 05/21/24 sumatriptan succinate 50 mg tablet 50 mg PO ONCE PRN migraine 06/03/24 headache #30 tabs tamsulosin 0.4 mg capsule 0.4 mg PO DAILY #14 caps 06/23/24 morphine 15 mg immediate release 15 mg PO Q6H PRN pain #10 tabs 07/03/24 tablet ondansetron 4 mg disintegrating 4 mg PO Q8H PRN nausea and 07/03/24 tablet vomiting #14 tabs Current Visit Medications: Current Medications Generic Name Dose Route Start Last Admin Trade Name Freq PRN Reason Stop Dose Admin Ringer's Solution 1,000 mls @ 80 mls/hr 05/22/25 06:00 IV 07/11/24 23:59 INFUSION BROWN Cefazolin Sodium/Dextrose 2 gm in 50 mls @ 100 mls/hr 07/11/24 06:00 Ancef Duplex IVPB 07/11/24 23:59 PREOP BROWN IV Miscellaneous Supplies 1 each 07/11/24 06:00 Iv Access IV 07/11/24 23:59 DIRECTED BROWN Sodium Chloride 0 ml 07/11/24 06:00 Normal Saline Flush 10 Ml Syr IV 07/11/24 23:59 PRN PRN Sodium Chloride 0 ml 07/11/24 06:00 Normal Saline 10 Ml Vial IJ 07/11/24 23:59 DIRECTED PRN Sterile Water 0 ml 07/11/24 06:00 Water,Injection,Sterile 10 Ml Vial IJ 07/11/24 23:59 DIRECTED PRN PFSH Active Problems Active Problems: Problem Status Onset Code Left ureteral stone Acute N20.1 Kidney stone Chronic N20.0 Tendinitis of left rotator cuff Acute M75.82 Trochanteric bursitis of left hip Acute M70.62 Left snapping hip Acute M24.852 Metabolic dysfunction-associated steatotic liver disease (MASLD) Chronic K76.0 Hyperlipidemia Chronic E78.5 Asthma-COPD overlap syndrome Chronic J44.89 Prediabetes Chronic R73.03 Right upper lobe pulmonary nodule Chronic ~10/2021 Major depressive disorder, recurrent Chronic F33.9 Generalized anxiety disorder Chronic F41.1 Gastroesophageal reflux disease with esophagitis Chronic K21.0 Dysphagia Chronic R13.10 At risk for aspiration Chronic Z91.89 Migraine Chronic G43.909 Degenerative joint disease, shoulder, 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 Degenerative joint disease, shoulder, 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 Medical History Medical History Type 2 diabetes mellitus Tubular adenoma of colon On 2019 colonoscopy Bilateral nephrolithiasis Pyloric ulcer associated with Helicobacter pylori 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 Surgical History Surgical History S/P repair of paraesophageal hernia (07/04/22) Repaired in a revised Toupet fundoplication d/t multiple prior repairs History of fundoplication (07/04/22) Toupet fundoplication for revision of prior nga fundoplication 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) left TKA on 07/06/17 left knee synovectomy and polyethylene exchange on 08/22/17 irrigation and debridement with polyethylene exchange and placement of antibiotic beads on 09/13/17 explantation of left knee arthroplasty with placement of cement spacer on 10/19/17 2-stage revision left knee arthroplasty on 12/22/17 irrigation and debridement of left knee with antibiotic bead placement on 04/22/18 History of colonoscopy (05/15/23) History of carpal tunnel surgery of right wrist (04/05/22) History of arthroscopy of left shoulder (02/07/23) History of arthroscopy of right shoulder (03/02/22) S/P recurrent ventral herniorrhaphy Status post total left knee replacement (07/06/17) Status post arthroscopy of left knee (08/21/19) Hx of cystoscopy Lithotripsy, stents x 3 History of total right knee replacement History of esophagogastroduodenoscopy History of incisional hernia repair Status post Nga fundoplication Status post cholecystectomy Status post laparoscopic hysterectomy Status post tonsillectomy Status post revision of total replacement of left knee (07/21/20) Patellar resurfacing DOS: 07/21/2020 DOS: 12/22/17 Dr. Gongora Tobacco Smoking/Tobacco Use Status: Never Passive smoking exposure: Yes Second hand exposure: Yes Alcohol Alcohol Intake: former Substance Use Substance use: Never Substance use type: does not use Vital Signs and Lab Results Vital Signs Most Recent Vital Signs in EMR: Temp Pulse Resp BP Pulse Ox 36.2 C L 81 16 105/78 99 07/11/24 08:40 07/11/24 08:40 07/11/24 08:40 07/11/24 08:40 07/11/24 08:40 Lab Results Blood Type / Crossmatch: No Data to Display Complete Blood Count: White Blood Count 10.60 10^3/uL (4.4-10.8) 06/23/24 14:26 Red Blood Count 3.85 10^6/uL (3.93-5.22) L 06/23/24 14:26 Hemoglobin 13.3 g/dL (11.2-15.7) 06/23/24 14:26 Hematocrit 37.7 % (36.0-46.0) 06/23/24 14:26 Platelet Count 273 10^3/uL (130-400) 06/23/24 14:26 Complete Metabolic Panel: Sodium 139 mmol/L (136-145) 06/23/24 14:26 Potassium 3.7 mmol/L (3.5-5.1) 06/23/24 14:26 Chloride 104 mmol/L (98-107) 06/23/24 14:26 Carbon Dioxide 26.1 mmol/L (21.0-32.0) 06/23/24 14:26 BUN 11 mg/dL (7-18) 06/23/24 14:26 Creatinine 1.2 mg/dL (0.55-1.02) H 06/23/24 14:26 Est GFR (CKD-EPI 2020) 53.79 (mL/min/1.73m2) 06/23/24 14:26 Magnesium 1.7 mg/dL (1.8-2.4) L 06/23/24 14:26 Calcium 10.0 mg/dL (8.5-10.1) 06/23/24 14:26 Albumin 3.3 g/dL (3.4-5.0) L 06/23/24 14:26 Glucose 173 mg/dL (74-106) H 06/23/24 14:26 Liver Function Panel: Alanine Aminotransferase (ALT/SGPT) 16 U/L (14-59) 06/23/24 14: 26 Aspartate Amino Transf (AST/SGOT) 11 U/L (15-37) L 06/23/24 14: 26 Coagulation Panel: No Data to Display Cardiac Panel: No Data to Display Arterial Blood Gas: No Data to Display Venous Blood Gas: No Data to Display Pancreas Panel: Lipase 28 U/L (<78) 06/23/24 14:26 Thyroid Panel: No Data to Display Infectious Disease: No Data to Display Blood Cultures: No Data to Display Toxicology Panel: No Data to Display Imaging and Studies Imaging and Studies Study information below may be from another EMR and interpreted by another provider. Please see original notes in EMR for more complete details. CT Summary: Exam(s) CT ABDOMEN PELVIS W EXAM: CT ABDOMEN PELVIS W CLINICAL HISTORY: lower Abdominal pain. TECHNIQUE: Imaging Protocol: Axial computed tomography images with coronal and sagittal reformatted images were created and reviewed CONTRAST MATERIAL: Intravenous: Omnipaque 350 Contrast volume:70 ml Oral: no COMPARISON: CT CT ABDOMEN PELVIS W from 10/05/2023 FINDINGS: ABDOMEN and PELVIS: Lung Bases: No acute findings. Similar appearance of thickening of the distal is esophagus and upper fundus likely representing this in fundoplication. Simil ar appearance to Liver: Normal density. No suspicious mass. Gallbladder and biliary tract: Cholecystectomy. No biliary dilation. Pancreas: Normal density. No abnormal calcifications or inflammatory process. No evidence of mass. Spleen: Normal. Kidneys: Normal size, contour and axis. The 6 millimeter stone upper cyst upper pole left kidney. Larger stones noted at the lower pole. None millimeters stone at the ureteropelvic junction causing moderate left hydronephrosis. There is some delay in the left nephrogram. There is mild left perinephric stranding. No suspicious masses seen. Adrenal glands: No masses seen. Vasculature: Abdominal aorta non-dilated. Mild atherosclerotic calcification Soft tissues: The midline abdominal wall hernia repair. Bladder: Nearly empty. No gross wall thickening. No calculi.No focal mass. Bowel: No obstruction. No bowel wall thickening. Appendix normal. Peritoneal cavity: No ascites. No focal collection. No mesenteric inflammatory response. No free air. Bones: Unremarkable for age. Reproductive organs: Status post hysterectomy with residual cervical stump. Similar appearing cystic lesion at the cervix, likely nabothian cyst. Small cyst right ovary. Lymph nodes: No pathologically enlarged lymph nodes. IMPRESSION:: 9 millimeter stone at the left ureteropelvic junction causing m oderate hydronephrosis. Additional nonobstructing left renal calculi. Other Study Summary:: 04/14, gastric emptying study: no evidence of delated gastric emptying. 02/10, upper GI: hiatal hernia. Anesthesia Assessment and Plan Anesthesia History Personal History: No History of Anesthesia Complications Family History: No Family History of Anesthesia Complications Exercise Tolerance Exercise Tolerance: Metabolic Equivalents>4 Cardiac & Pulmonary Exam Cardiac Exam: Normal S1/S2 Heart Sounds Pulmonary Exam: Clear Bilateral Breath Sounds Implantable Cardiac Device Does patient have a Pacemaker or an ICD?: No Airway Exam Known Difficult Airway: No Mallampati Class: 3 Mouth Opening: Narrow (< 3cm) Thyromental Distance: Less than 3 cm Neck Range of Motion: Full ROM Neck Circumference: Normal Teeth Condition: Generalized Poor Dentition and Loose or Chipped (some broken molars, none loose per patient) ASA Classification ASA Score: ASA 2 Emergency Case?: No NPO Status NPO Status: NPO Clears >2 hours, Solids >8 hours Anesthesia Plan Resuscitation Status: Full Code Anesthesia Technique: General Anesthesia Airway Planned: Endotracheal Tube Monitors Used: Standard Monitors Preoperative Comments:: 54 yo female for cysto. No health history changes since her last cysto. Sig PMHx: asthma/COPD (singluar, levalubertol, trelegy), fatty liver, depression/anxiety, GERD (nexium) - failed nga which has been revised again with success, DM (was uncontrolled, last A1c 5.7) Previous Anes: Many anesthetics with us. History of green fluid around ETT cuff on extubation on many occasions. Has had a repeat nga and she states that she has been doing much better, but still afraid to attempt to lay flat. - previous Glez 2/Mac 3/Mac/4/glide 3 grade 1. - has had colo in the past with dexmed, midaz, ketamine without issues.
[2024-07-11] VITALS (28 sets, daily range): BP systolic 78–110; BP diastolic 50–80; PULSE 71–92; RESP 13–22; TEMP 36.2–36.6; O2SAT 94–99; BMI 23.3
[2024-07-11] MEDS: Lactated Ringers 1,000 ML 80 ML IV (09:07)
--- NOTE | 2024-07-11 10:21 | HPE_ITS ---
Date of service: 07/11/24 Time of Service: 10:21 Assessment and Plan Assessment and plan (1) Kidney stone: Status: Chronic Assessment and plan: We will remove her ureteral stent and do a retrograde pyelogram to ensure there are no fragments remaining in the left ureter. We will then do flexible ureteroscopy to make sure our only large stone fragments in the kidney have been addressed. History of Present Illness History of Present Illness Chief Complaint: Left kidney stones Narrative: This is a 54-year-old woman who has a history of a left ureteral stone along with left kidney stones. We initially treated her with ureteroscopy and holmium laser lithotripsy of the ureteral stones. We will also able to deal with some of her left kidney stones before visibility became compromised. We left a ureteral stent in place. She comes back in now to have her stent removed and repeat ureteroscopy to address any remaining ureter ureteral or renal stones. She has had intermittent hematuria since the stent was placed. She has also had intermittent discomfort when she voids. Review of Systems Narrative: No fevers or chills No vision change or dysphasia No diabetes or thyroid dysfunction Hx asthma. No cough or hemoptysis No chest pain or palpitations GERD. No ulcers, jaundice No seizures, strokes or peripheral neuropathy No bleeding disorders or anemia No gout PFSH All Active Problems Left ureteral stone (Acute) Kidney stone (Chronic) Tendinitis of left rotator cuff (Acute) Trochanteric bursitis of left hip (Acute) Left snapping hip (Acute) Metabolic dysfunction-associated steatotic liver disease (MASLD) (Chronic) Hyperlipidemia (Chronic) Asthma-COPD overlap syndrome (Chronic) Prediabetes (Chronic) Right upper lobe pulmonary nodule (Chronic ~10/2021) Major depressive disorder, recurrent (Chronic) Generalized anxiety disorder (Chronic) Gastroesophageal reflux disease with esophagitis (Chronic) s/p Toupet fundoplication Dysphagia (Chronic) At risk for aspiration (Chronic) Gastric contents noted in mouth after all general ETT anesthetics. Recommend ETT for GA. 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) left TKA on 07/06/17 left knee synovectomy and polyethylene exchange on 08/22/17 irrigation and debridement with polyethylene exchange and placement of antibiotic beads on 09/13/17 explantation of left knee arthroplasty with placement of cement spacer on 10/19/17 2-stage revision left knee arthroplasty on 12/22/17 irrigation and debridement of left knee with antibiotic bead placement on 04/22/18 History of colonoscopy (05/15/23) History of carpal tunnel surgery of right wrist (04/05/22) History of arthroscopy of left shoulder (02/07/23) History of arthroscopy of right shoulder (03/02/22) S/P recurrent ventral herniorrhaphy Status post total left knee replacement (07/06/17) Status post arthroscopy of left knee (08/21/19) Hx of cystoscopy Lithotripsy, stents x 3 History of total right knee replacement History of esophagogastroduodenoscopy History of incisional hernia repair Status post Nga fundoplication Status post cholecystectomy Status post laparoscopic hysterectomy Status post tonsillectomy Status post revision of total replacement of left knee (07/21/20) Patellar resurfacing DOS: 07/21/2020 DOS: 12/22/17 Dr. Gongora Family History Mother Depression Hyperlipidemia Hypertension Father , 72 Diabetes Heart disease Leukemia Hypertension Sister No problems noted. Maternal Grandfather , 80 Heart disease Hyperlipidemia Paternal Grandfather , 80 Diabetes Heart disease Hyperlipidemia Maternal Grandmother , 82 Diabetes Heart disease Paternal Grandmother , 73 Heart disease Hyperlipidemia Asthma Diabetes Social History Smoking/Tobacco Use Status: Never Second Hand Exposure: Yes Smoking risk assessment performed?: Yes Alcohol Intake: former Drug use: Never Substance use type: does not use Adopted: No Caregiver/Support person: No Foster care: No Household members: spouse Housing: house Communication Needs: None Education Level: high school Details: 12TH Do you need help understanding health information?: Never current occupation: Disabled Pets and animals: Yes Pets and animals: cat(s) and dog(s) Sexually active: No Do you think of yourself as: straight/heterosexual Current gender identity: female What is your relationship status?: How often do you talk on the phone with friends or family?: three or more times per week How often do you get together with friends or relatives?: three or more times per week How often do you attend anabaptism or adventist services?: decline to answer Do you belong to any clubs or organized social groups?: no Panel score (0-1 are the most socially isolated patients): 2 What type of physical activity do you participate in: walking Duration: 15-30 minutes/day Frequency: 3-4 times per week Sita/Islam: No preference Special sita needs: No Seatbelt use: always Helmet use: No Drive intox or ride w/intox bung driver: No Firearms in home: No Do you feel safe at home: Yes Do you feel safe in your relationship?: Yes Victim of physical abuse: No Victim of emotional abuse: No Victim of sexual abuse: No Would you like helpful sources: No Meds Allergies and Home Medications Allergies Allergy/AdvReac Type Severity Reaction Status Date / Time latex Allergy Severe HIVES, Verified 07/11/24 09:11 ITCHING erythromycin base AdvReac Intermediate NAUSEA, Verified 07/11/24 09:11 VOMITING chlorhexidine (From AdvReac Mild Itching Verified 07/11/24 09:11 Hibiclens) codeine AdvReac NAUSEA, Verified 07/11/24 09:11 VOMITING Dermabond Allergy Intermediate Skin Rash Uncoded 07/11/24 09:11 Glue Allergy Mild Rash and Uncoded 07/11/24 09:11 blisters Home Medications ?Medication ?Instructions ?Recorded ?Confirmed ?Type cholecalciferol (vitamin D3) 50 2,000 unit PO DAILY 05/19/15 07/11/24 History mcg (2,000 unit) capsule (Vitamin D3) blood-glucose meter ([place] [employer] #1 ea 05/24/23 05/04/25 Rx Ultra2 Meter) metoclopramide HCl 5 mg tablet 5 mg PO TID PRN nausea and 08/10/22 07/11/24 Rx (Reglan) vomiting #270 tabs fexofenadine 180 mg tablet 180 mg PO DAILY #90 tabs 03/20/23 07/11/24 Rx montelukast 10 mg tablet 10 mg PO HS #90 tabs 09/14/23 07/11/24 Rx (Singulair) levocetirizine 5 mg tablet 5 mg PO DAILY PRN allergy symptoms 09/21/23 07/11/24 Rx #90 tabs multivitamin with minerals-iron See Rx Instructions PO DAILY #240 10/26/23 07/11/24 Rx fumarate 9 mg iron/15 mL oral mL liquid (Complete Multivitamin-Multimineral) atorvastatin 10 mg tablet 10 mg PO QPM #90 tabs 12/28/23 07/11/24 Rx buspirone 5 mg tablet 5 mg PO BID #180 tabs 12/28/23 07/11/24 Rx cephalexin 500 mg capsule 500 mg PO TID #270 caps 12/28/23 07/11/24 Rx fluoxetine 20 mg capsule 20 mg PO DAILY #90 caps 12/28/23 07/11/24 Rx fluoxetine 40 mg capsule 40 mg PO DAILY #90 caps 12/28/23 07/11/24 Rx gabapentin 300 mg capsule 300 mg PO BID #180 caps 12/28/23 07/11/24 Rx lactase 9,000 unit tablet (Lactase 9,000 unit PO DAILY PRN lactose 12/28/23 07/11/24 Rx Fast Acting) intolerance #90 tabs cyclobenzaprine 5 mg tablet 5 mg PO TID PRN back pain #60 tabs 01/01/24 07/11/24 Rx albuterol sulfate 2.5 mg/3 mL 2.5 mg (3 mL) inhalation Q6H PRN 02/19/24 07/11/24 Rx (0.083 %) solution for nebulization shortness of breath or wheezing #360 mL levalbuterol tartrate 45 2 inh inhalation Q6H PRN shortness 03/12/24 07/11/24 Rx mcg/actuation aerosol inhaler of breath or wheezing #3 ea acetaminophen 500 mg tablet 1,000 mg (2 x 500 mg) PO TID #90 03/18/24 07/11/24 Rx tabs blood sugar diagnostic (OneTouch #200 ea 03/21/24 06/23/24 Rx Ultra Test strips) esomeprazole magnesium 40 mg 40 mg PO DAILY #90 caps 03/21/24 07/11/24 Rx capsule,delayed release (Nexium) lancets (Ultra Thin Lancets) #200 ea 03/21/24 06/23/24 Rx magnesium oxide 500 mg capsule 500 mg PO DAILY #90 caps 03/21/24 07/11/24 Rx triamcinolone acetonide 0.1 % 1 applic topical BID PRN rash #80 03/21/24 07/11/24 Rx topical cream grams dicyclomine 20 mg tablet 20 mg PO TID PRN abdominal pain 03/28/24 07/11/24 Rx #90 tabs fluticasone fur. 200 mcg-umeclid 1 inh inhalation DAILY 30 days #60 04/30/24 07/11/24 Rx 62.5 mcg-vilant 25 mcg ea inhalat.powder (Trelegy Ellipta) tramadol 50 mg tablet 50 mg PO BID PRN pain #30 tabs 05/21/24 07/11/24 Rx sumatriptan succinate 50 mg tablet 50 mg PO ONCE PRN migraine 06/03/24 07/11/24 Rx headache #30 tabs tamsulosin 0.4 mg capsule 0.4 mg PO DAILY #14 caps 06/23/24 07/11/24 Rx morphine 15 mg immediate release 15 mg PO Q6H PRN pain #10 tabs 07/03/24 07/11/24 Rx tablet ondansetron 4 mg disintegrating 4 mg PO Q8H PRN nausea and 07/03/24 07/11/24 Rx tablet vomiting #14 tabs Exam Const General: cooperative Neck Neck: supple Resp Effort & Inspection: normal respiratory effort Auscultation: clear to auscultation bilaterally Cardio Rate: regular rate Rhythm: regular rhythm GI Inspection: normal to inspection Neuro General: patient alert, patient awake and patient oriented x3 Results Last Vital Signs Temp 36.2 C L 07/11/24 08:40 Pulse 81 07/11/24 08:40 Resp 16 07/11/24 08:40 BP 105/78 07/11/24 08:40 Pulse Ox 99 07/11/24 08:40 Time Spent Time spent with Patient: <40 minutes Time was spent: other
[2024-07-11] MEDS: ceFAZolin 2 GM/50 ML BAG IVPB (10:53)
[2024-07-11] MEDS: Omnipaque 300 MG/ML 50 ML BTL (11:17)
[2024-07-11] MEDS: Lidocaine 2% Jelly 6 ML SYR (11:17)
--- NOTE | 2024-07-11 12:10 | W.PM.DSUDISC ---
Date of service: 07/11/24 Discharge Plan Disposition Patient Disposition: Home Condition: Stable Discharge Details Reason For Visit: left kidney stone Attending Provider: Jh Montana Primary Care Provider: Renetta Bonner Home Meds and New Rx's Prescriptions: No Action (DME) blood-glucose meter [OneTouch Ultra2 Meter] Misc See Rx Instructions .Route Qty: 1 3RF Rx Instructions: Check blood sugar twice a day levocetirizine 5 mg tablet 5 mg PO DAILY PRN (Reason: allergy symptoms) Qty: 90 3RF lactase [Lactase Fast Acting] 9,000 unit tablet 9,000 unit PO DAILY PRN (Reason: lactose intolerance) Qty: 90 3RF atorvastatin 10 mg tablet 10 mg PO QPM Qty: 90 3RF buspirone 5 mg tablet 5 mg PO BID Qty: 180 3RF cephalexin 500 mg capsule 500 mg PO TID Qty: 270 3RF fluoxetine 20 mg capsule 20 mg PO DAILY Qty: 90 3RF Rx Instructions: Take with 40mg cap for a total of 60mg fluoxetine 40 mg capsule 40 mg PO DAILY Qty: 90 3RF Rx Instructions: Take with 20mg cap for a total of 60mg gabapentin 300 mg capsule 300 mg PO BID Qty: 180 3RF sumatriptan succinate 50 mg tablet 50 mg PO ONCE MDD 2 pills PRN (Reason: migraine headache) Qty: 30 4RF Rx Instructions: Take one tab at onset of headache. May repeat in 1 hour if no relief. fexofenadine 180 mg tablet 180 mg PO DAILY Qty: 90 3RF triamcinolone acetonide 0.1 % cream 1 applic topical BID PRN (Reason: rash) Qty: 80 1RF magnesium oxide 500 mg capsule 500 mg PO DAILY Qty: 90 3RF esomeprazole magnesium [Nexium] 40 mg capsule,delayed release(DR/EC) 40 mg PO DAILY Qty: 90 3RF Patient Comments: pt. states it is omeprazole (DME) OneTouch Ultra Test Strip 1 ea Miscellaneous DAILY Qty: 200 3RF Rx Instructions: Check blood sugar twice a day (DME) lancets [Ultra Thin Lancets] Misc 1 ea Miscellaneous DAILY Qty: 200 3RF Rx Instructions: Check blood sugar twice a day cholecalciferol (vitamin D3) [Vitamin D3] 2,000 UNIT capsule 2,000 unit PO DAILY metoclopramide HCl [Reglan] 5 mg tablet 5 mg PO TID PRN (Reason: nausea and vomiting) Qty: 270 3RF montelukast [Singulair] 10 mg tablet 10 mg PO HS Qty: 90 3RF Complete Multivitamin-Mineral 9 mg iron/15 mL liquid See Rx Instructions PO DAILY Qty: 240 3RF Rx Instructions: orally daily; cyclobenzaprine 5 mg tablet 5 mg PO TID PRN (Reason: back pain) Qty: 60 1RF Rx Instructions: Take 1 tablet by mouth three times a day as needed for back pain albuterol sulfate 2.5 mg /3 mL (0.083 %) solution for nebulization 2.5 mg Inhalation Q6H PRN (Reason: shortness of breath or wheezing) Qty: 360 3RF Patient Comments: 07/03/17 Per pt uses every night.jw levalbuterol tartrate 45 mcg/actuation HFA aerosol inhaler 2 inh inhalation Q6H PRN (Reason: shortness of breath or wheezing) Qty: 3 4RF acetaminophen 500 mg tablet 1,000 mg PO TID Qty: 90 0RF dicyclomine 20 mg tablet 20 mg PO TID PRN (Reason: abdominal pain) Qty: 90 3RF Trelegy Ellipta 200-62.5-25 mcg blister with device 1 inh inhalation DAILY 30 Days Qty: 60 12RF tramadol 50 mg tablet 50 mg PO BID PRN (Reason: pain) Qty: 30 0RF morphine 15 mg tablet 15 mg PO Q6H MDD 4 PRN (Reason: pain) Qty: 10 0RF ondansetron 4 mg tablet,disintegrating 4 mg PO Q8H PRN (Reason: nausea and vomiting) Qty: 14 0RF tamsulosin 0.4 mg capsule 0.4 mg PO DAILY Qty: 14 0RF Discharge Instructions Additional Instructions: I have been able to remove all of the large stone pieces that remained in your left kidney. I did put in a smaller ureteral stent (compared to your last one) and there is a string attached to the end of the stent. We will ask you to come to our office early next week to have the stent removed. You will then have an additional follow-up appointment about 6 or 8 weeks later. We will plan on getting a renal ultrasound to make sure your kidney is healed from the procedures. We will also go over the chemical composition of your stone so that we can help prevent future stone formation. Activity:: Activity as Tolerated Shower/Bathe:: 24 hours Diet:: As Tolerated DS: Diagnosis Discharge Diagnosis (1) Kidney stone: Status: Chronic
--- NOTE | 2024-07-11 12:12 | DI.RAD_ITS ---
Exam(s) XR RETROGRADE IN OR EXAM: XR RETROGRADE IN OR CLINICAL HISTORY: LEFT KIDNEY STONE. TECHNIQUE: Fluoroscopy was provided for the referring physician for guidance with performing retrogr kathy procedure. COMPARISON: CT CT ABDOMEN PELVIS W from 06/23/2024 XA XR RETROGRADE IN OR from 07/01/2024 FINDINGS: Please see procedure note for details. Fluoro time: 28.2 seconds RADIATION DOSE DELIVERED: Ka,r=4.58 mGy
--- NOTE | 2024-07-11 12:15 | W.PM.OP ---
Operative Note Operative Note PRE-OP DIAGNOSIS: left kidney stones POST-OP DIAGNOSIS: same PROCEDURE: cystoscopy with stent removal, left retrograde pyelogram, left flexible ureteroscopy with extraction of stone fragments, insert left ureteral stent SURGEON: Jh Montana ANESTHESIA TYPE: Local By Surgeon and General LMA/ETT Refer to Anesthesia Record ESTIMATED BLOOD LOSS: 5 PATHOLOGY: other (stones for chemical analysis) COMPLICATIONS: None Patient was transported to: PACU Patient's condition: stable Implants: 4.8 sudanese by 22 to 30 cm left ureteral stent Indications: This is a 54-year-old woman who was previously identified as having an obstructing left ureteral stone along with nonobstructing stones in the left kidney. She underwent an initial procedure during which we treated her ureteral stone and extracted an upper pole stone from her kidney. We also treated the lower pole stones with the holmium laser. We did not believe we extracted all of her stone fragments, so she presents now for repeat ureteroscopy with extraction of any residual stones. Findings: No additional stones in the upper pole or ureter. Multiple stone fragments in the lower pole calyx that were extracted Procedure Description: The patient was given IV antibiotics and brought to the operating room on 07/11/2024. After successful induction of general anesthesia, she was placed in the dorsal lithotomy position. Her genitalia was prepped and draped. 2% Xylocaine jelly was instilled into the urethra. The 22 Surinamese rigid cystoscope was passed through the urethra into the bladder. The bladder was inspected with the 30 degree lens. There was quite a bit of edema surrounding the left ureteral orifice. A stent was seen coming from the orifice. I was able to grasp the stent and bring it out to the level of the urethral meatus. I then passed a guidewire through the lumen of the stent and remove the stent leaving the wire in place. I passed a dual-lumen catheter over the wire and injected Omnipaque through the second port of the dual-lumen catheter. Using fluoroscopy, we were able to outline each of the calyces with contrast. I then positioned a second wire and chose one of the wires as a working wire with the other one as a safety wire. I passed a ureteral access sheath over the working wire leaving the safety wire in place. I then passed a flexible ureteroscope through the access sheath and advanced the scope up to the kidney. We inspected each of the calyces and found multiple stone fragments in the lower pole calyx. I was able to grasp these fragments using a 0 tip stone basket and remove them. Multiple small fragments (less than the size of the guidewire) remained in the lower pole calyx. All fragments that were removed from the kidney were sent to the lab for chemical analysis. I then withdrew the ureteroscope and access sheath and found no evidence of ureteral injury or residual stone in the ureter. I passed a 4.8 Surinamese variable length stent over the safety wire. We position the stent with the proximal end curled in the renal pelvis and the distal end curled within the bladder. We confirmed the positioning of the stent using both fluoroscopy and cystoscopy. The safety string was left on the end of the stent and the string was brought through the urethral meatus. The end of the string was tucked into the patient's vaginal cavity The patient tolerated this procedure well with no complications. She was taken to the recovery room in stable condition. Date of Procedure: 07/11/24
[2024-07-11] MEDS: ACETAMINOPHEN 1,000 MG/100 ML BAG 400 MG IVPB (12:20)
--- NOTE | 2024-07-11 12:37 | W.ANESPOSTOP ---
Postoperative Evaluation Date, Time and Location Date Performed: 07/11/24 Time Performed: 12:37 Patient Location: PACU Vital Signs Most Recent Imported Vital Signs: Most Recent Vital Signs Temp Pulse Resp BP Pulse Ox 36.3 C L 87 13 93/64 L 97 07/11/24 12:30 07/11/24 12:31 07/11/24 12:31 07/11/24 12:30 07/11/24 12:31 Pain Score Most Recent Pain Score: Most Recent Pain Score Pain Level 0 07/11/24 12:30 Assessment Mental Status: Awake (Alert & Oriented to Patient Baseline) Airway and Respiratory Function: Patent airway with normal (patient baseline) respiratory exam Cardiovascular Function: Hemodynamically Stable Hydration Status: Adequately Hydrated Nausea & Vomiting: No Nausea or Vomiting Pain: Pain is tolerable per patient Peripheral Nerve Block: Patient did not receive a nerve block
[2024-07-11] MEDS: ePHEDrine 25 MG/5 ML Syringe IVP (12:54)
[2024-07-11] MEDS: Phenazopyridine 200 MG TAB PO (14:02)
[2024-07-22 15:05] LABS: Source: Left Kidney
== END 2024-07-11 14:20 | disposition home or self-care (01) ==
PROVIDERS: PCP Nurse Practitioner Family; Visit Provider Urology
PROC: (CPT 52352; principal; 2024-07-11 10:15)
DX: N13.2 Hydronephrosis with renal and ureteral calculous obstruction (principal); K76.0 Fatty (change of) liver, not elsewhere classified; G43.909 Migraine, unspecified, not intractable, without status migrainosus; R73.03 Prediabetes; E78.5 Hyperlipidemia, unspecified; J44.9 Chronic obstructive pulmonary disease, unspecified
CPT/HCPCS: 52352; 52332; 74420; 82365; J0131; J0690; J1100; J1885; J2250; J2371; J2405; J2704; Q9967

== ENCOUNTER → 2024-07-17 08:01 | Outpatient (BNVA) | payer MEDICARE, SELFPAY | PROVIDERS: PCP Nurse Practitioner Family; Referring Provider Nurse Practitioner Family; Visit Provider Nurse Practitioner Gerontology | DX: N20.0 Calculus of kidney (principal); Z98.890 Other specified postprocedural states | CPT/HCPCS: 99213 ==

== ENCOUNTER → 2024-07-22 14:35 | Outpatient (BNVA) | payer MEDICARE, SELFPAY | PROVIDERS: PCP Nurse Practitioner Family; Referring Provider Nurse Practitioner Family; Visit Provider Student in an Organized Health Care Education/Training Program | DX: M75.82 Other shoulder lesions, left shoulder (principal) | CPT/HCPCS: 20611; J1010 ==

== ENCOUNTER 2024-08-06 10:40 | Outpatient (CLI) | payer MEDICARE, SELFPAY ==
[2024-08-06 12:35] LABS: Abs Immature Grans 0.05 10^3/uL (0.0-0.06); Absolute Basophil Count 0.02 10^3/uL (0.0-0.2); Absolute Eosinophil Count 0.16 10^3/uL (0.0-0.7); Absolute Lymphocyte Count 2.67 10^3/uL (1.2-3.4); Absolute Monocyte Count 0.85 10^3/uL (0.1-0.8); Absolute Neutrophil Count 6.07 10^3/uL (1.2-6.7); Basophils % 0.2 %; Eosinophils % 1.6 %; HGB 13.1 g/dL (11.2-15.7); Immature Grans % 0.5 %; Lymphocytes % 27.2 %; MCHC 34.5 % (32.0-36.0); MCV 99 fL (80-95); MPV 10.6 fL (8.0-11.0); Monocytes % 8.7 %; Neutrophils % 61.8 %; Platelet Count 322 10^3/uL (130-400); RBC 3.85 10^6/uL (3.93-5.22); RDW 13.7 % (11.7-14.6); RDW-SD 49.5 fL; WBC 9.82 10^3/uL (4.4-10.8)
[2024-08-06 13:01] LABS: ALT 23 U/L (14-59); AST 14 U/L (15-37); Albumin 3.5 g/dL (3.4-5.0); Alkaline Phosphatase 70 U/L (46-116); Amylase 28 U/L (25-115); Anion Gap 8.7 mmol/L (3-11); BUN 10 mg/dL (7-18); Bilirubin, Total 2.4 mg/dL (0.2-1.0); CO2 25.3 mmol/L (21.0-32.0); CREATININE 0.9 mg/dL (0.55-1.02); Calcium 9.1 mg/dL (8.5-10.1); Chloride 107 mmol/L (98-107); Glucose 106 mg/dL (74-106); Lipase 21 U/L (<78); Potassium 3.2 mmol/L (3.5-5.1); Sodium 141 mmol/L (136-145); Total Protein 7.4 g/dL (6.4-8.2)
== END 2024-08-06 10:41 | disposition home or self-care (01) ==
LOC: LOS 10:40
PROVIDERS: PCP Nurse Practitioner Family; Visit Provider Nurse Practitioner Family
DX: R10.11 Right upper quadrant pain (principal)
CPT/HCPCS: 36415; 80053; 83690; 82150; 85025

== ENCOUNTER 2024-08-09 00:47 | Outpatient (CLI) | payer MEDICARE, SELFPAY ==
--- NOTE | 2024-08-09 14:02 | DI.CT_ITS ---
Exam(s) CT CHEST PE CTA EXAM: CT CHEST PE CTA CLINICAL HISTORY: back pain, dyspnea, asthma-copd overlap syndrome,j44.89,r06.00. TECHNIQUE: Imaging Protocol: Axial CT angiography was performed with multi- slice acquisition and multi-planar reconstructions as well as axial, coronal and sagittal MIP reconstructions. Computer aided detection (CAD) was utilized. CONTRAST MATERIAL: Intravenous: Omnipaque 350 Contrast volume: 80 ml COMPARISON: CT CT CHEST WO from 04/02/[address] ABDOMEN PELVIS W from 06/23/2024 FINDINGS: Pulmonary Arteries: No evidence of filling defect to suggest pulmonary emboli. Mediastinum and Niesha: No dominant adenopathy or fluid collection. Small hiatal hernia. Pulmonary parenchyma: No consolidation or dominant measurable mass. Stable nodule in the right upper lobe. Pleura: No effusion or pneumothorax. Heart: The heart is not dilated. No coronary artery calcifications are seen. Aorta: Thoracic aorta non-dilated. No dissection. Upper abdomen: Left hydronephrosis, similar to prior exam. Only upper portion of the left kidney is included on the exam. Bones: Unremarkable for age. Tubes, Catheters, and Lines: None Soft tissues: Unremarkable. IMPRESSION: No evidence of pulmonary embolism. Small hiatal hernia . Stable left hydronephrosis. Left kidney is only partially included on the exam. RADIATION DOSE DELIVERED: Total DLP DATA REPOSITORY: All CT scans at this facility are submitted to the National Radiology Data Registry (NRDR) Dose Index Registry (DIR) with the [employer] (ACR). RADIATION OPTIMIZATION: All CT scans at this facility use at least one of these dose optimization techniques: automated exposure control; mA and/or kV adjustment per patient size (includes targeted exams where dose is matched to clinical indication); or iterative reconstruction.
[2024-08-09] MEDS: Normal Saline - Diluent 50 ML VIAL IJ (14:37)
[2024-08-09] MEDS: Omnipaque 350 MG/ML 100 ML BTL 80 ML IJ (14:38)
== END 2024-08-09 01:07 ==
PROVIDERS: PCP Nurse Practitioner Family; Visit Provider Physician Assistant Surgical
DX: J44.89 Other specified chronic obstructive pulmonary disease (principal); R06.00 Dyspnea, unspecified
CPT/HCPCS: 71275; 82565; J3490

== ENCOUNTER 2024-08-16 00:19 | Outpatient (CLI) | payer MEDICARE, SELFPAY ==
--- NOTE | 2024-08-16 07:45 | DI.US_ITS ---
Exam(s) US RENAL EXAM: US RENAL CLINICAL HISTORY: r/o hydronephrosis after URS, LT URETERAL STONE. TECHNIQUE: Horton scale, color and spectral Doppler were used. COMPARISON: CT CT ABDOMEN PELVIS W from 06/23/2024 XA XR RETROGRADE IN OR from 07/11/2024 FINDINGS: Renal size in cm: Right: 9.2. Left: 10.7. Echogenicity: Normal. Hydronephrosis: There is no evidence of right hydronephrosis. There is moderate left hydronephrosis. Cyst or mass: No. Nephrolithiasis: There is bilateral nephrolithiasis. Other findings: None. Bladder:Normal. Ureteral jets: Right: Not visualized during the examination. Left: Not visualized during the examination. Prevoid vol:62 cc Postvoid vol:0 cc The right ovary was visualized with 2 simple cysts present. Renal color flow: Symmetric and within normal limits. IMPRESSION: 1. Moderate left hydronephrosis. 2. Bilateral nephrolithiasis. DATA REPOSITORY:
== END 2024-08-16 00:39 ==
LOC: DI 00:20
PROVIDERS: PCP Nurse Practitioner Family; Visit Provider Urology
DX: N20.1 Calculus of ureter (principal); N20.0 Calculus of kidney
CPT/HCPCS: 76770

== ENCOUNTER → 2024-08-19 10:53 | Outpatient (BNVA) | payer MEDICARE, SELFPAY | PROVIDERS: PCP Nurse Practitioner Family; Referring Provider Nurse Practitioner Family; Visit Provider Physician Assistant Surgical | DX: J44.89 Other specified chronic obstructive pulmonary disease (principal); R91.1 Solitary pulmonary nodule | CPT/HCPCS: 99214 ==

== ENCOUNTER 2024-08-26 02:51 | Outpatient (CLI) | payer MEDICARE, SELFPAY ==
--- NOTE | 2024-08-26 07:45 | DI.RAD_ITS ---
Exam(s) XR LUMBAR SPINE COMPLETE EXAM: XR LUMBAR SPINE COMPLETE CLINICAL HISTORY: pain with ambulation,low back pain,m54.50. TECHNIQUE: 2D digital imaging was performed. Five views. COMPARISON: CR XR LUMBAR SPINE COMPLETE from 07/19/2023 FINDINGS: BONES: No fracture or destructive lesion. Vertebral body heights are maintained. Minimal endplate osteophytes. Mild facet hypertrophy is present at L5-S1. . DISKS: Intervertebral disc spaces are maintained. ALIGNMENT: Lumbar spinal alignment is within normal limits. SOFT TISSUE: Right upper quadrant surgical clips. IMPRESSION: Minimal degenerative changes of the lumbar spine. DATA REPOSITORY: RADIATION DOSE DELIVERED:
--- NOTE | 2024-08-26 07:45 | DI.CT_ITS ---
Exam(s) CT ABDOMEN PELVIS W EXAM: CT ABDOMEN PELVIS W CLINICAL HISTORY: ruq pain worse after eating,no gallbladder. TECHNIQUE: Imaging Protocol: Axial computed tomography images with coronal and sagittal reformatted images were created and reviewed CONTRAST MATERIAL: Intravenous: Omnipaque 350 Contrast volume:75 ml Oral: Yes COMPARISON: CT CT ABDOMEN PELVIS W from 06/23/2024 FINDINGS: ABDOMEN and PELVIS: Lung Bases: No acute findings. Liver: Normal density. No suspicious mass. Gallbladder and biliary tract: Cholecystectomy. No biliary dilation. Pancreas: Normal density. No abnormal calcifications or inflammatory process. No evidence of mass. Spleen: Normal. Kidneys: Normal size, contour and axis. Small stones are again noted at the lower pole of the left kidney. The appears smaller when compared the previous exam. There is mild to moderate hydronephrosis, slightly improved from prior. Previously noted stone in the upper left ureter is no longer visible. There is a question of a 1.5 millimeter stone in the ureter at the same location as the prior stone which could represent a tiny residual fragment. No suspicious masses seen. Adrenal glands: No masses seen. Vasculature: Abdominal aorta non-dilated. Soft tissues: Midline hernia repair and scarring. Bladder: Nearly empty. No calculi.No gross evidence of focal mass. Bowel: Fundoplication again noted, unchanged in appearance. No obstruction. No bowel wall thickening. Appendix normal. Peritoneal cavity: No ascites. No focal collection. No mesenteric inflammatory response. No free air. Bones: Unremarkable for age. Reproductive organs: Hysterectomy with residual cervix. Nabothian cysts again noted. Lymph nodes: No pathologically enlarged lymph nodes. IMPRESSION:: Mild improvement previously noted left hydronephrosis, now mild to moderate. Question of a 1.5 millimeter stone in the upper ureter which could represent a tiny residual fragment. The other stones in the lower pole left kidney have decreased in size from the prior exam. RADIATION DOSE DELIVERED: Total DLP DATA REPOSITORY: All CT scans at this facility are submitted to the National Radiology Data Registry (NRDR) Dose Index Registry (DIR) with the [employer] (ACR). RADIATION OPTIMIZATION: All CT scans at this facility use at least one of these dose optimization techniques: automated exposure control; mA and/or kV adjustment per patient size (includes targeted exams where dose is matched to clinical indication); or iterative reconstruction.
[2024-08-26] MEDS: Barium Sulfate 2% W/V-Berry Smoothie 450 ML BTL PO ×2 (11:26→11:27)
[2024-08-26] MEDS: Omnipaque 350 MG/ML 100 ML BTL 75 ML IJ (13:29)
[2024-08-26] MEDS: Normal Saline - Diluent 50 ML VIAL IJ (13:30)
== END 2024-08-26 03:11 ==
LOC: DI 02:52
PROVIDERS: PCP Nurse Practitioner Family; Visit Provider Nurse Practitioner Family
DX: R10.11 Right upper quadrant pain (principal); M54.50 Low back pain, unspecified
CPT/HCPCS: 72110; 74177; J3490

== ENCOUNTER → 2024-08-27 08:00 | Outpatient (BNVA) | payer MEDICARE, SELFPAY | PROVIDERS: PCP Nurse Practitioner Family; Referring Provider Nurse Practitioner Family; Visit Provider Nurse Practitioner Gerontology | DX: N20.0 Calculus of kidney (principal) | CPT/HCPCS: 99213 ==

== ENCOUNTER 2024-09-04 14:44 | Outpatient (CLI) | payer MEDICARE, SELFPAY ==
--- NOTE | 2024-09-04 14:15 | DI.RAD_ITS ---
Exam(s) XR SHOULDER LT COMPLETE 2+V EXAM: XR SHOULDER LT COMPLETE 2+V CLINICAL HISTORY: LEFT SHOULDER PAIN. TECHNIQUE: 2D digital imaging was performed. COMPARISON: No exams were available for comparison FINDINGS: 3 views No evidence of fracture or dislocation. However, there are osteoarthritic degenerative changes in the glenohumeral joint again noted. There are posing osteophytes on the inferior articular surfaces of the humeral head and osseous glenoid. There are no obvious degenerative subarticular cysts and there is no obvious joint space narrowing. Subacromial space appears unremarkable with normal height and no soft tissue calcifications. AC joint unremarkable. Ipsilateral clavicle unremarkable. IMPRESSION: Degenerative changes in the glenohumeral joint comprised of opposing osteophytes on the inferior articular surfaces of the humeral head and osseous glenoid. There does not appear to be prominent joint space narrowing. DATA REPOSITORY: RADIATION DOSE DELIVERED:
== END 2024-09-04 14:45 | disposition home or self-care (01) ==
LOC: DIORS 14:45
PROVIDERS: PCP Nurse Practitioner Family; Referring Provider Nurse Practitioner Family; Visit Provider Student in an Organized Health Care Education/Training Program
DX: M75.82 Other shoulder lesions, left shoulder (principal); M19.012 Primary osteoarthritis, left shoulder; G56.02 Carpal tunnel syndrome, left upper limb; J44.9 Chronic obstructive pulmonary disease, unspecified
CPT/HCPCS: 99214; 73030

== ENCOUNTER 2024-09-06 01:03 | Outpatient (CLI) | payer MEDICARE, SELFPAY ==
[2024-09-06 13:13] LABS: Abs Immature Grans 0.03 10^3/uL (0.0-0.06); HCT 35.1 % (36.0-46.0); HGB 12.2 g/dL (11.2-15.7); Immature Grans % 0.4 %; MCH 33.9 pg (27.0-33.0); MCHC 34.8 % (32.0-36.0); MCV 98 fL (80-95); MPV 10.3 fL (8.0-11.0); Platelet Count 300 10^3/uL (130-400); RBC 3.60 10^6/uL (3.93-5.22); RDW 12.9 % (11.7-14.6); RDW-SD 46.2 fL; WBC 8.50 10^3/uL (4.4-10.8)
[2024-09-06 13:41] LABS: C-Reactive Protein 0.59 mg/dL (<or=0.5); Estimated GFR 102.07 (mL/min/1.73m2)
[2024-09-06 14:03] LABS: ESR 15 mm/hr (0-30)
== END 2024-09-06 01:04 | disposition home or self-care (01) ==
LOC: LBO 01:04
PROVIDERS: Nurse Practitioner Family; PCP Nurse Practitioner Family; Visit Provider Student in an Organized Health Care Education/Training Program
DX: R10.11 Right upper quadrant pain (principal); M19.012 Primary osteoarthritis, left shoulder; T84.54XS Infection and inflammatory reaction due to internal left knee prosthesis, sequela; Z96.652 Presence of left artificial knee joint
CPT/HCPCS: 36415; 85652; 82565; 85025; 86140

== ENCOUNTER → 2024-09-18 09:38 | Outpatient (BNVA) | payer MEDICARE, SELFPAY | PROVIDERS: PCP Nurse Practitioner Family; Referring Provider Nurse Practitioner Family; Visit Provider Nurse Practitioner Gerontology | DX: N20.0 Calculus of kidney (principal); R10.30 Lower abdominal pain, unspecified | CPT/HCPCS: 99214; 76770 ==

== ENCOUNTER 2024-09-18 10:30 | Outpatient (CLI) | payer MEDICARE, SELFPAY ==
--- NOTE | 2024-09-18 10:30 | DI.US_ITS ---
Exam(s) US RENAL EXAM: US RENAL CLINICAL HISTORY: monitoring renal calculi, dara nephrolithiasis, N20.0. TECHNIQUE: Horton scale imaging and color doppler were used. COMPARISON: CT CT ABDOMEN PELVIS W from 08/26/2024 FINDINGS: Right kidney: 9.3cm Echogenicity: Normal Hydronephrosis: No Cyst or mass: No Nephrolithiasis: Calcification measured at the mid right kidney at 5 millimeters in size however this was not demonstrated on recent CT. Left kidney: 8.8cm Echogenicity: Normal Hydronephrosis: Mild. This appears to have decreased from prior exam. Cyst or mass: No Nephrolithiasis: 3 calcifications are measured, 1 in the mid left kidney measuring 5 millimeters, 1 at the lower pole measuring 7 millimeters.. The largest at is at the upper pole which is measured at 9 millimeters. This is not seen on the prior exam likely represent artifact. Previous CT showed 3 tiny stones at the lower pole. Bladder:Normal. The left ureteral jet was not visualized. Prevoid vol:63 cc Postvoid vol:0 cc IMPRESSION: Improvement in left hydronephrosis, now mild. Echogenic foci are present both kidneys which appear larger when compared with recent CT and are likely artifact. DATA REPOSITORY:
== END 2024-09-18 10:50 ==
LOC: DI 10:30
PROVIDERS: PCP Nurse Practitioner Family; Visit Provider Nurse Practitioner Gerontology
DX: N20.0 Calculus of kidney (principal)
CPT/HCPCS: 76770

== ENCOUNTER 2024-09-23 14:34 | Outpatient (CLI) | payer MEDICARE, SELFPAY ==
--- NOTE | 2024-09-23 14:36 | DI.RAD_ITS ---
Exam(s) XR KNEES MERCHANT ONLY XR KNEE LT 2V AP,LAT XR KNEE RT 2V AP,LAT EXAM: XR KNEE RT 2V AP,LAT and XR knee LT 2 V and XR knees Merchant CLINICAL HISTORY: eval R TKA pain. TECHNIQUE: 2D digital imaging was performed. Five images were obtained. AP, lateral and Merchant views were obtained. COMPARISON: CR XR KNEE RT 3V AP,LAT,ANNE from 05/06/2019 CR XR KNEE LT 3V AP,LAT,ANNE from 07/26/2019 CR XR KNEE LT 3V AP,LAT,ANNE from 05/29/2020 CR XR CHEST 2V PA LATERAL from 06/06/2024 FINDINGS: BONES: There are stable post operative changes of a bilateral total knee arthroplasties present. No fracture or dislocation. JOINTS: The left patella is somewhat inferiorly located compared to the prior examination. There is stable lucency seen around the tibial component of the left total knee arthroplasty. SOFT TISSUE: Normal. IMPRESSION: 1. Stable right total knee arthroplasty. 2. The patella is somewhat inferiorly located compared to prior examinations. There is no soft tissue swelling seen anteriorly. No fracture is identified. Please correlate clinically. The left knee prosthesis is otherwise unchanged. DATA REPOSITORY: RADIATION DOSE DELIVERED:
== END 2024-09-23 14:35 | disposition home or self-care (01) ==
LOC: DIORS 14:34
PROVIDERS: PCP Nurse Practitioner Family; Referring Provider Nurse Practitioner Family; Visit Provider Student in an Organized Health Care Education/Training Program
DX: M25.561 Pain in right knee (principal); M25.562 Pain in left knee; T84.84XA Pain due to internal orthopedic prosthetic devices, implants and grafts, initial encounter; Z96.653 Presence of artificial knee joint, bilateral
CPT/HCPCS: 99213; 73565; 73560

== ENCOUNTER 2024-09-27 00:40 | Outpatient (CLI) | payer MEDICARE, SELFPAY ==
[2024-09-27] MEDS: Normal Saline - Diluent 50 ML VIAL IJ (12:28)
[2024-09-27] MEDS: Lidocaine 1% Pres-Free 30 ML VIAL IJ (12:29)
[2024-09-27] MEDS: Omnipaque 300 MG/ML 10 ML BTL IJ (12:29)
--- NOTE | 2024-09-27 12:30 | DI.RAD_ITS ---
Exam(s) RF JOINT INJ. FLUORO GUID RAD EXAM: RF JOINT INJ. FLUORO GUID RAD-LEFT SHOULDER JOINT ASPIRATION CLINICAL HISTORY: ? INDOLENT PROPIONIBACTERIUM INFECTION,arthritis lt glenohumeral joint. TECHNIQUE: 2D and realtime digital imaging was performed. CONTRAST MATERIAL: Intra-articular Omnipaque 300 COMPARISON: MR MR UPPER JOINT LT WO from 06/06/2024 FINDINGS: This fluoroscopic guided left shoulder aspiration was performed at the request of the orthopedic surgeon. The patient was consented by myself prior to this procedure. Patient was placed in the supine position on the fluoroscopy table. Using sterile technique and adequate skin-subcutaneous anesthesia, fluoroscopic guidance was used to advance a 22 gauge spinal needle into the glenohumeral joint via an anterior approach. Intra-articular position was confirmed with 1 cc Omnipaque 300. The intra-articular needle was left in place for 1 minute. There was no fluid observed coming off the needle. Thereafter aspiration also yielded a dry tap. At this point a 2nd needle-20 gauge spinal needle was introduced into the joint with fluoroscopic guidance. This also yielded a dry tap. At this point 9 cc of preservative-free sterile saline was injected into the joint space. After 2 minutes wait it was noted that fluid was coming out of the needle. This was aspirated using a 10 cc syringe. We obtained 2 cc of nonpurulent clear fluid. This was divided into the requested to test tubes provided by the lab. The indwelling needle was removed and a Band-Aid applied. The patient tolerated this procedure well and there were no intraprocedural complications. IMPRESSION: Dry tap (as expected; recent MRI 06/06/2024 did not reveal increased amount of fluid in the glenohumeral joint. We did obtain almost 2 cc of fluid after introducing 9 cc of preservative-free saline into the glenohumeral joint space. This was sent for the requested laboratory testing requested by the referring orthopedic surgeon. RADIATION DOSE DELIVERED: Ka,r=6.32mGy
[2024-10-01 09:28] LABS: Path Consult (Tech Order) Y
== END 2024-09-27 01:00 ==
LOC: DI 00:41
PROVIDERS: PCP Nurse Practitioner Family; Visit Provider Student in an Organized Health Care Education/Training Program
DX: M19.012 Primary osteoarthritis, left shoulder (principal)
CPT/HCPCS: 20610; 36415; 77002; 82565; 87070; 87205; 89051; 89060

== ENCOUNTER 2024-09-30 11:47 | Outpatient (CLI) | payer MEDICARE, SELFPAY ==
--- NOTE | 2024-09-30 10:15 | DI.MRI_ITS ---
Exam(s) MR LUMBAR SPINE WO EXAM: MR LUMBAR SPINE WO CLINICAL HISTORY: chronic low back pain,m54.50,g89.29. TECHNIQUE: Multiplanar multisequence MRI of the Lumbar spine was performed. COMPARISON: CR XR LUMBAR SPINE COMPLETE from 08/26/2024 FINDINGS: Bones: The last intervertebral disc space is designated the L5/S1 level for the numbering purpose of this examination. The vertebral body heights are well maintained. Alignment: Unremarkable. The marrow signal characteristics are unremarkable. Cord: The conus tip ends at the T12 level. It is of normal size and signal intensity. T12-L1: No focal disc herniation is present. No central spinal canal stenosis.No neural foraminal stenosis. L1-2: No focal disc herniation is present. No central spinal canal stenosis.No neural foraminal stenosis. L2-3:Mild disc bulging. No focal disc herniation is present. No central spinal canal stenosis.No neural foraminal stenosis. L3-4: Mild loss of disc height. Mild concentric disc bulging. Small right paracentral disc protrusion. Ligamentous hypertrophy combined with disc bulging and protrusion to produce [id number] central canal stenosis. No neural foraminal stenosis. L4-5:Mild loss of disc height. Mild concentric disc bulging. Central disc protrusion. Ligamentous hypertrophy and facet degenerative changes combine to could of as moderate central canal stenosis.No neural foraminal stenosis. L5-S1: No disc height is maintained. No focal disc herniation is present. No central spinal canal stenosis.No neural foraminal stenosis. The visualized SI joints and sacrum are unremarkable. Soft tissues: The paraspinal soft tissues are unremarkable. There is persistent moderate left hydronephrosis. IMPRESSION: Combination of disc bulging, disc protrusions and ligamentous hypertrophy cause [id number] central canal stenosis at L3-4 and moderate central canal stenosis at L4-5. Persistent moderate left hydronephrosis. DATA REPOSITORY:
== END 2024-09-30 12:07 ==
LOC: DI 11:51
PROVIDERS: PCP Nurse Practitioner Family; Visit Provider Nurse Practitioner Family
DX: M48.061 Spinal stenosis, lumbar region without neurogenic claudication (principal); G89.29 Other chronic pain; N13.39 Other hydronephrosis
CPT/HCPCS: 72148

== ENCOUNTER 2024-10-14 06:14 | Day surgery (SDC) | payer MEDICARE, SELFPAY ==
[2024-10-14] VITALS (20 sets, daily range): BP systolic 106–126; BP diastolic 63–81; PULSE 64–97; RESP 8–25; TEMP 36.1–37.4; O2SAT 97–100; BMI 22.3
--- NOTE | 2024-10-14 07:05 | HPE_ITS ---
Date of service: 10/14/24 Time of Service: 07:05 Assessment and Plan Assessment and plan (1) Bilateral nephrolithiasis: Assessment and plan: With the presence of her left hydronephrosis, we will plan on cystoscopy, left retrograde pyelogram and we will be prepared to do ureteroscopy to address any residual stone fragments in the kidney or ureter. History of Present Illness History of Present Illness Chief Complaint: Left hydronephrosis Narrative: This is a 54-year-old woman who has a history of a large left-sided UPJ stone. She was treated with ureteroscopy and holmium laser lithotripsy. He had persistent hydronephrosis on the left side in the postoperative checkups. She has had left flank pain that radiates to the left groin. She has no dysuria or gross hematuria. Her follow-up ultrasound showed improvement in the hydronephrosis, but with her symptoms, she is agreeable to cystoscopy, retrograde pyelogram and left ureteroscopy to rule out any obstructing lesions. Review of Systems Narrative: No fevers or chills No vision change or dysphasia No diabetes or thyroid dysfunction Asthma/COPD. No shortness of breath, cough or hemoptysis No chest pain or palpitations GERD. Hx liver disease. No nausea, vomiting, hepatitis, ulcers Hx migraines. No seizures, strokes or peripheral neuropathy No bleeding disorders or anemia Arthralgia. No gout PFSH All Active Problems Painful total knee replacement, right (Chronic) Carpal tunnel syndrome of left wrist (Chronic) Arthritis of left glenohumeral joint (Chronic) Tendinitis of left rotator cuff (Chronic) Metabolic dysfunction-associated steatotic liver disease (MASLD) (Chronic) Hyperlipidemia (Chronic) Asthma-COPD overlap syndrome (Chronic) Prediabetes (Chronic) Major depressive disorder, recurrent (Chronic) Generalized anxiety disorder (Chronic) Gastroesophageal reflux disease with esophagitis (Chronic) s/p Toupet fundoplication Dysphagia (Chronic) Degenerative joint disease (DJD) of lumbar spine (Acute) Chronic low back pain (Chronic) At risk for aspiration (Chronic) Gastric contents noted in mouth after all general ETT anesthetics. Recommend ETT for GA. 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) left TKA on 07/06/17 left knee synovectomy and polyethylene exchange on 08/22/17 irrigation and debridement with polyethylene exchange and placement of antibiotic beads on 09/13/17 explantation of left knee arthroplasty with placement of cement spacer on 10/19/17 2-stage revision left knee arthroplasty on 12/22/17 irrigation and debridement of left knee with antibiotic bead placement on 04/22/18 History of colonoscopy (05/15/23) History of carpal tunnel surgery of right wrist (04/05/22) History of arthroscopy of left shoulder (02/07/23) History of arthroscopy of right shoulder (03/02/22) S/P recurrent ventral herniorrhaphy Status post total left knee replacement (07/06/17) Status post arthroscopy of left knee (08/21/19) Hx of cystoscopy Lithotripsy, stents x 3 History of total right knee replacement History of esophagogastroduodenoscopy History of incisional hernia repair Status post Nga fundoplication Status post cholecystectomy Status post laparoscopic hysterectomy Status post tonsillectomy Status post revision of total replacement of left knee (07/21/20) Patellar resurfacing DOS: 07/21/2020 DOS: 12/22/17 Dr. Gongora Family History Mother Depression Hyperlipidemia Hypertension Father , 72 Diabetes Heart disease Leukemia Hypertension Sister No problems noted. Maternal Grandfather , 80 Heart disease Hyperlipidemia Paternal Grandfather , 80 Diabetes Heart disease Hyperlipidemia Maternal Grandmother , 82 Diabetes Heart disease Paternal Grandmother , 73 Heart disease Hyperlipidemia Asthma Diabetes Social History Smoking/Tobacco Use Status: Never Second Hand Exposure: Yes Smoking risk assessment performed?: Yes Alcohol Intake: current Alcohol Intake frequency: holidays/special occasions only Alcohol type: hard liquor and other Drug use: Never Substance use type: does not use Adopted: No Caregiver/Support person: No Foster care: No Household members: spouse Housing: apartment Communication Needs: None Education Level: high school Details: 12TH Do you need help understanding health information?: Never current occupation: Disabled Pets and animals: Yes Pets and animals: cat(s) and dog(s) Sexually active: No Do you think of yourself as: straight/heterosexual Current gender identity: female What is your relationship status?: How often do you talk on the phone with friends or family?: three or more times per week How often do you get together with friends or relatives?: three or more times per week How often do you attend confucianist or quaker services?: decline to answer Do you belong to any clubs or organized social groups?: no Panel score (0-1 are the most socially isolated patients): 2 What type of physical activity do you participate in: walking Duration: 15-30 minutes/day Frequency: 3-4 times per week Sita/Jewish: No preference Special sita needs: No Seatbelt use: always Helmet use: No 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 Firearms in home: No Do you feel safe at home: Yes Do you feel safe in your relationship?: Yes Victim of physical abuse: No Victim of emotional abuse: No Victim of sexual abuse: No Would you like helpful sources: No Meds Allergies and Home Medications Allergies Allergy/AdvReac Type Severity Reaction Status Date / Time latex Allergy Severe HIVES, Verified 10/14/24 06:31 ITCHING erythromycin base AdvReac Intermediate NAUSEA, Verified 10/14/24 06:31 VOMITING chlorhexidine (From AdvReac Mild Itching Verified 10/14/24 06:31 Hibiclens) codeine AdvReac NAUSEA, Verified 10/14/24 06:31 VOMITING Dermabond Allergy Intermediate Skin Rash Uncoded 10/14/24 06:31 Glue Allergy Mild Rash and Uncoded 10/14/24 06:31 blisters Home Medications ?Medication ?Instructions ?Recorded ?Confirmed ?Type cholecalciferol (vitamin D3) 50 2,000 unit PO DAILY 10/14/24 History mcg (2,000 unit) capsule (Vitamin D3) blood-glucose meter (OneTouch #1 ea 07/13/22 09/26/24 Rx Ultra2 Meter) metoclopramide HCl 5 mg tablet 5 mg PO TID PRN nausea and 08/10/22 10/14/24 Rx (Reglan) vomiting #270 tabs fexofenadine 180 mg tablet 180 mg PO DAILY #90 tabs 10/14/24 Rx montelukast 10 mg tablet 10 mg PO HS #90 tabs 4 10/14/24 Rx (Singulair) levocetirizine 5 mg tablet 5 mg PO DAILY PRN allergy s ymptoms 09/21/23 10/14/24 Rx #90 tabs multivitamin with minerals-iron See Rx Instructions PO DAILY #240 10/26/23 10/14/24 Rx fumarate 9 mg iron/15 mL oral mL liquid (Complete Multivitamin-Multimineral) atorvastatin 10 mg tablet 10 mg PO QPM #90 tabs 10/14/24 Rx buspirone 5 mg tablet 5 mg PO BID #180 tabs 10/14/24 Rx fluoxetine 20 mg capsule 20 mg PO DAILY #90 caps 110 09/1210/14/24 Rx fluoxetine 40 mg capsule 40 mg PO DAILY #90 caps 11/0 09/1210/14/24 Rx lactase 9,000 unit tablet (Lactase 9,000 unit PO DAILY PRN lactose 12/28/23 10/14/24 Rx Fast Acting) intolerance #90 tabs acetaminophen 500 mg tablet 1,000 mg (2 x 500 mg) PO T ID #90 03/18/24 10/14/24 Rx tabs blood sugar diagnostic (OneTouch #200 ea 03/21/2409/13 Rx Ultra Test strips) esomeprazole magnesium 40 mg 40 mg PO DAILY #90 caps 0 03/21/24 10/14/24 Rx capsule,delayed release (Nexium) lancets (Ultra Thin Lancets) #200 ea 03/21/24 09/26/24 Rx magnesium oxide 500 mg capsule 500 mg PO DAILY #90 cap s 03/21/24 10/14/24 Rx triamcinolone acetonide 0.1 % 1 applic topical BID PRN rash #80 03/21/24 10/14/24 Rx topical cream grams dicyclomine 20 mg tablet 20 mg PO TID PRN abdominal p ain 03/28/24 10/14/24 Rx #90 tabs ondansetron 4 mg disintegrating 4 mg PO Q8H PRN nausea and 07/11/24 10/14/24 Rx tablet vomiting #14 tabs sumatriptan succinate 50 mg tablet 50 mg PO ONCE PRN m igraine 08/06/24 10/14/24 Rx headache #9 tabs budesonide 160 mcg-glycopyr 9 2 inh inhalation BID #10 .7 grams 08/19/24 10/14/24 Rx mcg-formot 4.8 mcg/actuation HFA inhaler ([employer]) levalbuterol HCl 0.63 mg/3 mL 0.63 mg (3 mL) inhalatio n Q6H PRN 08/20/24 10/14/24 Rx solution for nebulization shortness of breath or wheez ing #90 mL tamsulosin 0.4 mg capsule 0.4 mg PO DAILY PRN renal co lic 08/27/24 10/14/24 Rx #30 caps celecoxib 100 mg capsule (Celebrex) 100 mg PO BID #60 caps 09/19/24 10/14/24 Rx cephalexin 500 mg capsule 500 mg PO TID #270 caps 06/1410/14/24 Rx albuterol sulfate 2.5 mg/3 mL 2.5 mg (3 mL) inhalation Q6H PRN 09/26/24 10/14/24 Rx (0.083 %) solution for nebulization shortness of breat h or wheezing #360 mL gabapentin 300 mg capsule 300 - 600 mg (1 - 2 x 300 mg ) PO 09/26/24 10/14/24 Rx TID #360 caps levalbuterol tartrate 45 2 inh inhalation Q6H PRN matteo rtness 09/26/24 10/14/24 Rx mcg/actuation aerosol inhaler of breath or wheezing #3 ea tramadol 50 mg tablet 50 mg PO BID PRN pain #30 ta bs 10/02/24 10/14/24 Rx Exam Const General: cooperative Neck Neck: supple Resp Effort & Inspection: normal respiratory effort Auscultation: clear to auscultation bilaterally Cardio Rate: regular rate Rhythm: regular rhythm GI Palpation: soft and no masses Neuro General: patient alert, patient awake and patient oriented x3 Results Labs Labs: RUN DATE: 10/14/24 [facility] PAGE 1 RUN TIME: [id number] RUN USER: [place] [address] Lu Gregory MD PATIENT REPORT PATIENT: Barbara Chapman LOC: [facility]ESE U #: [id number] /SX: 1970 F ROOM: RE 07/11/[address]: ANITA GRULLON MD STATUS: [facility] BED: DIS: SPEC #: [id number] VANI: 07/11/24 STATUS: COMP REQ #: [id number] RECD: 07/11/[address]: ANITA GRULLON MD ENTERED: 07/11/[address]: BRANDON HAAS,ALAYNA FAX #: ORDERED: Stone Anaylsis QUERIES: Source: Left Kidney Test Result Flag Reference Verified Kidney Stone Analysis Source: Left Kidney 07/22/24 Interpretation SEE BELOW 07/22/24 RESULT: 60% Calcium oxalate monohydrate. 40% Uric acid. Result Comment See Comment 07/22/24 For stones containing calcium oxalate, calcium phosphate, and/or uric acid, a 24 hr urinary supersaturation test may help detect underlying risk factors for this type of stone formation and provide guidance for a stone prevention strategy. ADDITIONAL INFORMATION This test was developed and its performance characteristics determined by [facility] in a manner consistent with CLIA requirements. This test has not been cleared or approved by the U.S. Food and Drug Administration. Test Performed by: 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
[2024-10-14] MEDS: Lactated Ringers 1,000 ML 80 ML IV (07:06)
--- NOTE | 2024-10-14 07:08 | W.ANESPRE ---
General Info Date of Service Date Performed: 10/14/24 Height: 5 ft 2 in Weight: 55.3 kg Body Mass Index (BMI): 22.3 Surgical Procedure: Operation Date: 10/14/24 07:40 Proposed Procedure Side Surgeon p Cystoscopy/Retrograde/Ureteroscopy/ ? Stone Manipulation Left Jh Montana MD Meds Allergies and Home Medications Allergies Allergy/AdvReac Type Severity Reaction Status Date / Time latex Allergy Severe HIVES, Verified 10/14/24 06:31 ITCHING erythromycin base AdvReac Intermediate NAUSEA, Verified 10/14/24 06:31 VOMITING chlorhexidine (From AdvReac Mild Itching Verified 10/14/24 06:31 Hibiclens) codeine AdvReac NAUSEA, Verified 10/14/24 06:31 VOMITING Dermabond Allergy Intermediate Skin Rash Uncoded 10/14/24 06:31 Glue Allergy Mild Rash and Uncoded 10/14/24 06:31 blisters Home Medication ?Medication ?Instructions ?Recorded cholecalciferol (vitamin D3) 50 2,000 unit PO DAILY 05/19/15 mcg (2,000 unit) capsule (Vitamin D3) blood-glucose meter (OneTouch #1 ea 07/13/22 Ultra2 Meter) metoclopramide HCl 5 mg tablet 5 mg PO TID PRN nausea and 08/10/22 (Reglan) vomiting #270 tabs fexofenadine 180 mg tablet 180 mg PO DAILY #90 tabs 03/20/23 montelukast 10 mg tablet 10 mg PO HS #90 tabs 09/14/23 (Singulair) levocetirizine 5 mg tablet 5 mg PO DAILY PRN allergy symptoms 09/21/23 #90 tabs multivitamin with minerals-iron See Rx Instructions PO DAILY #240 10/26/23 fumarate 9 mg iron/15 mL oral mL liquid (Complete Multivitamin-Multimineral) atorvastatin 10 mg tablet 10 mg PO QPM #90 tabs 12/28/23 buspirone 5 mg tablet 5 mg PO BID #180 tabs 12/28/23 fluoxetine 20 mg capsule 20 mg PO DAILY #90 caps 12/28/23 fluoxetine 40 mg capsule 40 mg PO DAILY #90 caps 12/28/23 lactase 9,000 unit tablet (Lactase 9,000 unit PO DAILY PRN lactose 12/28/23 Fast Acting) intolerance #90 tabs acetaminophen 500 mg tablet 1,000 mg (2 x 500 mg) PO TID #90 03/18/24 tabs blood sugar diagnostic (OneTouch #200 ea 03/21/24 Ultra Test strips) esomeprazole magnesium 40 mg 40 mg PO DAILY #90 caps 03/21/24 capsule,delayed release (Nexium) lancets (Ultra Thin Lancets) #200 ea 03/21/24 magnesium oxide 500 mg capsule 500 mg PO DAILY #90 caps 03/21/24 triamcinolone acetonide 0.1 % 1 applic topical BID PRN rash #80 03/21/24 topical cream grams dicyclomine 20 mg tablet 20 mg PO TID PRN abdominal pain 03/28/24 #90 tabs ondansetron 4 mg disintegrating 4 mg PO Q8H PRN nausea and 07/11/24 tablet vomiting #14 tabs sumatriptan succinate 50 mg tablet 50 mg PO ONCE PRN migraine 08/06/24 headache #9 tabs budesonide 160 mcg-glycopyr 9 2 inh inhalation BID #10.7 grams 08/19/24 mcg-formot 4.8 mcg/actuation HFA inhaler ([employer]phere) levalbuterol HCl 0.63 mg/3 mL 0.63 mg (3 mL) inhalation Q6H PRN 08/20/24 solution for nebulization shortness of breath or wheezing #90 mL tamsulosin 0.4 mg capsule 0.4 mg PO DAILY PRN renal colic 08/27/24 #30 caps celecoxib 100 mg capsule (Celebrex) 100 mg PO BID #60 caps 09/19/24 cephalexin 500 mg capsule 500 mg PO TID #270 caps 09/23/24 albuterol sulfate 2.5 mg/3 mL 2.5 mg (3 mL) inhalation Q6H PRN 09/26/24 (0.083 %) solution for nebulization shortness of breath or wheezing #360 mL gabapentin 300 mg capsule 300 - 600 mg (1 - 2 x 300 mg) PO 09/26/24 TID #360 caps levalbuterol tartrate 45 2 inh inhalation Q6H PRN shortness 09/26/24 mcg/actuation aerosol inhaler of breath or wheezing #3 ea tramadol 50 mg tablet 50 mg PO BID PRN pain #30 tabs 08/13/25 Current Visit Medications: Current Medications Generic Name Dose Route Start Last Admin Trade Name Freq PRN Reason Stop Dose Admin Ringer's Solution 1,000 mls @ 80 mls/hr 10/14/24 06:00 10/14/24 07:06 IV 11/10/24 23:59 80 mls/hr INFUSION BROWN Administration IV Miscellaneous Supplies 1 each 10/14/24 06:00 Iv Access IV 11/10/24 23:59 DIRECTED BROWN Sodium Chloride 0 ml 10/14/24 06:00 Normal Saline Flush 10 Ml Syr IV 11/10/24 23:59 PRN PRN Sodium Chloride 0 ml 10/14/24 06:00 Normal Saline 10 Ml Vial IJ 11/10/24 23:59 DIRECTED PRN Sterile Water 0 ml 10/14/24 06:00 Water,Injection,Sterile 10 Ml Vial IJ 11/10/24 23:59 DIRECTED PRN PFSH Active Problems Active Problems: Problem Status Onset Code Painful total knee replacement, right Chronic T84.84XA, Z96.651 Carpal tunnel syndrome of left wrist Chronic G56.02 Arthritis of left glenohumeral joint Chronic M19.012 Tendinitis of left rotator cuff Chronic M75.82 Metabolic dysfunction-associated steatotic liver disease (MASLD) Chronic K76.0 Hyperlipidemia Chronic E78.5 Asthma-COPD overlap syndrome Chronic J44.89 Prediabetes Chronic R73.03 Major depressive disorder, recurrent Chronic F33.9 Generalized anxiety disorder Chronic F41.1 Gastroesophageal reflux disease with esophagitis Chronic K21.0 Dysphagia Chronic R13.10 Degenerative joint disease (DJD) of lumbar spine Acute M47.816 Chronic low back pain Chronic M54.50, G89.29 At risk for aspiration Chronic Z91.89 Migraine Chronic G43.909 Degenerative joint disease, shoulder, 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 Degenerative joint disease, shoulder, 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 Medical History Medical History Type 2 diabetes mellitus Tubular adenoma of colon On 2019 colonoscopy Bilateral nephrolithiasis Pyloric ulcer associated with Helicobacter pylori 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 Surgical History Surgical History S/P repair of paraesophageal hernia (07/04/22) Repaired in a revised Toupet fundoplication d/t multiple prior repairs History of fundoplication (07/04/22) Toupet fundoplication for revision of prior nga fundoplication 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) left TKA on 07/06/17 left knee synovectomy and polyethylene exchange on 08/22/17 irrigation and debridement with polyethylene exchange and placement of antibiotic beads on 09/13/17 explantation of left knee arthroplasty with placement of cement spacer on 10/19/17 2-stage revision left knee arthroplasty on 12/22/17 irrigation and debridement of left knee with antibiotic bead placement on 04/22/18 History of colonoscopy (05/15/23) History of carpal tunnel surgery of right wrist (04/05/22) History of arthroscopy of left shoulder (02/07/23) History of arthroscopy of right shoulder (03/02/22) S/P recurrent ventral herniorrhaphy Status post total left knee replacement (07/06/17) Status post arthroscopy of left knee (08/21/19) Hx of cystoscopy Lithotripsy, stents x 3 History of total right knee replacement History of esophagogastroduodenoscopy History of incisional hernia repair Status post Nga fundoplication Status post cholecystectomy Status post laparoscopic hysterectomy Status post tonsillectomy Status post revision of total replacement of left knee (07/21/20) Patellar resurfacing DOS: 07/21/2020 DOS: 12/22/17 Dr. Gongora Tobacco Smoking/Tobacco Use Status: Never Passive smoking exposure: Yes Second hand exposure: Yes Alcohol Alcohol Intake: current Alcohol intake frequency: holidays/special occasions only Alcohol type: hard liquor and other Substance Use Substance use: Never Substance use type: does not use Vital Signs and Lab Results Vital Signs Most Recent Vital Signs in EMR: Most Recent Vital Signs Temp Pulse Resp BP Pulse Ox 36.5 C 97 H 14 124/77 100 10/14/24 06:37 10/14/24 06:37 10/14/24 06:37 10/14/24 06:37 10/14/24 06:37 Imaging and Studies Imaging and Studies Study information below may be from another EMR and interpreted by another provider. Please see original notes in EMR for more complete details. CT Summary: Exam(s) CT ABDOMEN PELVIS W EXAM: CT ABDOMEN PELVIS W CLINICAL HISTORY: lower Abdominal pain. TECHNIQUE: Imaging Protocol: Axial computed tomography images with coronal and sagittal reformatted images were created and reviewed CONTRAST MATERIAL: Intravenous: Omnipaque 350 Contrast volume:70 ml Oral: no COMPARISON: CT CT ABDOMEN PELVIS W from 10/05/2023 FINDINGS: ABDOMEN and PELVIS: Lung Bases: No acute findings. Similar appearance of thickening of the distal is esophagus and upper fundus likely representing this in fundoplication. Similar appearance to Liver: Normal density. No suspicious mass. Gallbladder and biliary tract: Cholecystectomy. No biliary dilation. Pancreas: Normal density. No abnormal calcifications or inflammatory process. No evidence of mass. Spleen: Normal. Kidneys: Normal size, contour and axis. The 6 millimeter stone upper cyst upper pole left kidney. Larger stones noted at the lower pole. None millimeters stone at the ureteropelvic junction causing moderate left hydronephrosis. There is some delay in the left nephrogram. There is mild left perinephric stranding. No suspicious masses seen. Adrenal glands: No masses seen. Vasculature: Abdominal aorta non-dilated. Mild atherosclerotic calcification Soft tissues: The midline abdominal wall hernia repair. Bladder: Nearly empty. No gross wall thickening. No calculi.No focal mass. Bowel: No obstruction. No bowel wall thickening. Appendix normal. Peritoneal cavity: No ascites. No focal collection. No mesenteric inflammatory response. No free air. Bones: Unremarkable for age. Reproductive organs: Status post hysterectomy with residual cervical stump. Similar appearing cystic lesion at the cervix, likely nabothian cyst. Small cyst right ovary. Lymph nodes: No pathologically enlarged lymph nodes. IMPRESSION:: 9 millimeter stone at the left ureteropelvic junction causing moderate hydronephrosis. Additional nonobstructing left renal calculi. Other Study Summary:: 04/14, gastric emptying study: no evidence of delated gastric emptying. 02/10, upper GI: hiatal hernia. Anesthesia Assessment and Plan Anesthesia History Personal History: Other Family History: No Family History of Anesthesia Complications Exercise Tolerance Exercise Tolerance: Metabolic Equivalents>4 Pertinent Negatives Pertinent Negatives: No Symptoms of GERD Cardiac & Pulmonary Exam Cardiac Exam: Normal S1/S2 Heart Sounds Pulmonary Exam: Clear Bilateral Breath Sounds Implantable Cardiac Device Does patient have a Pacemaker or an ICD?: No Airway Exam Known Difficult Airway: No Mallampati Class: 3 Mouth Opening: Narrow (< 3cm) Thyromental Distance: Less than 3 cm Neck Range of Motion: Full ROM Neck Circumference: Normal Teeth Condition: Generalized Poor Dentition and Loose or Chipped (some broken molars, none loose per patient) ASA Classification ASA Score: ASA 3 Emergency Case?: No NPO Status NPO Status: NPO Clears >2 hours, Solids >8 hours Anesthesia Plan Resuscitation Status: Full Code Anesthesia Technique: General Anesthesia Airway Planned: Endotracheal Tube Monitors Used: Standard Monitors
[2024-10-14] MEDS: Lidocaine 2% Jelly 11 ML SYR (08:02)
[2024-10-14] MEDS: Omnipaque 300 MG/ML 50 ML BTL (08:02)
--- NOTE | 2024-10-14 08:25 | DI.RAD_ITS ---
Exam(s) XR RETROGRADE IN OR EXAM: XR RETROGRADE IN OR CLINICAL HISTORY: Left hydronephrosis TECHNIQUE: 2D and realtime digital imaging was performed. CONTRAST MATERIAL: Refer to procedure report. COMPARISON: CT CT ABDOMEN PELVIS W from 08/26/2024 FINDINGS: Fluoroscopy was provided for Dr. Montana during the performance of a retrograde evaluation of the renal collecting system. Please refer to the procedure report for complete details. Ka,r=5.4 mGy IMPRESSION: RADIATION DOSE DELIVERED: 0.0 0.0 0
--- NOTE | 2024-10-14 08:29 | W.PM.DSUDISC ---
Date of service: 10/14/24 Discharge Plan Disposition Patient Disposition: Home Condition: Stable Discharge Details Reason For Visit: ureteroscopy Attending Provider: Jh Montana Primary Care Provider: Renetta Bonner Home Meds and New Rx's Prescriptions: New morphine 15 mg tablet 15 mg PO Q6H PRN (Reason: pain) Qty: 20 0RF No Action (DME) blood-glucose meter [OneTouch Ultra2 Meter] Misc See Rx Instructions .Route Qty: 1 3RF Rx Instructions: Check blood sugar twice a day levocetirizine 5 mg tablet 5 mg PO DAILY PRN (Reason: allergy symptoms) Qty: 90 3RF lactase [Lactase Fast Acting] 9,000 unit tablet 9,000 unit PO DAILY PRN (Reason: lactose intolerance) Qty: 90 3RF atorvastatin 10 mg tablet 10 mg PO QPM Qty: 90 3RF buspirone 5 mg tablet 5 mg PO BID Qty: 180 3RF fluoxetine 20 mg capsule 20 mg PO DAILY Qty: 90 3RF Rx Instructions: Take with 40mg cap for a total of 60mg fluoxetine 40 mg capsule 40 mg PO DAILY Qty: 90 3RF Rx Instructions: Take with 20mg cap for a total of 60mg Breztri Aerosphere 160-9-4.8 mcg/actuation HFA aerosol inhaler 2 inh inhalation BID Qty: 10.7 12RF levalbuterol HCl 0.63 mg/3 mL solution for nebulization 0.63 mg inhalation Q6H PRN (Reason: shortness of breath or wheezing) Qty: 90 6RF levalbuterol tartrate 45 mcg/actuation HFA aerosol inhaler 2 inh inhalation Q6H PRN (Reason: shortness of breath or wheezing) Qty: 3 4RF albuterol sulfate 2.5 mg /3 mL (0.083 %) solution for nebulization 2.5 mg Inhalation Q6H PRN (Reason: shortness of breath or wheezing) Qty: 360 3RF Patient Comments: 07/03/17 Per pt uses every night.jw gabapentin 300 mg capsule 300 - 600 mg PO TID Qty: 360 3RF Rx Instructions: 1 pill in the morning and afternoon and 2 pills in the evening ondansetron 4 mg tablet,disintegrating 4 mg PO Q8H PRN (Reason: nausea and vomiting) Qty: 14 0RF sumatriptan succinate 50 mg tablet 50 mg PO ONCE MDD 2 pills PRN (Reason: migraine headache) Qty: 9 4RF Rx Instructions: Take one tab at onset of headache. May repeat in 1 hour if no relief. cephalexin 500 mg capsule 500 mg PO TID Qty: 270 3RF tamsulosin 0.4 mg capsule 0.4 mg PO DAILY PRN (Reason: renal colic) Qty: 30 1RF fexofenadine 180 mg tablet 180 mg PO DAILY Qty: 90 3RF triamcinolone acetonide 0.1 % cream 1 applic topical BID PRN (Reason: rash) Qty: 80 1RF magnesium oxide 500 mg capsule 500 mg PO DAILY Qty: 90 3RF esomeprazole magnesium [Nexium] 40 mg capsule,delayed release(DR/EC) 40 mg PO DAILY Qty: 90 3RF (DME) OneTouch Ultra Test Strip 1 ea Miscellaneous DAILY Qty: 200 3RF Rx Instructions: Check blood sugar twice a day (DME) lancets [Ultra Thin Lancets] Misc 1 ea Miscellaneous DAILY Qty: 200 3RF Rx Instructions: Check blood sugar twice a day cholecalciferol (vitamin D3) [Vitamin D3] 2,000 UNIT capsule 2,000 unit PO DAILY metoclopramide HCl [Reglan] 5 mg tablet 5 mg PO TID PRN (Reason: nausea and vomiting) Qty: 270 3RF montelukast [Singulair] 10 mg tablet 10 mg PO HS Qty: 90 3RF Complete Multivitamin-Mineral 9 mg iron/15 mL liquid See Rx Instructions PO DAILY Qty: 240 3RF Rx Instructions: orally daily; acetaminophen 500 mg tablet 1,000 mg PO TID Qty: 90 0RF dicyclomine 20 mg tablet 20 mg PO TID PRN (Reason: abdominal pain) Qty: 90 3RF celecoxib [Celebrex] 100 mg capsule 100 mg PO BID Qty: 60 0RF tramadol 50 mg tablet 50 mg PO BID PRN (Reason: pain) Qty: 30 0RF Discharge Instructions Additional Instructions: My office will contact you to make arrangements for a stent removal, ureteroscopy and procedure to address any additional stones Activity:: Activity as Tolerated Shower/Bathe:: 24 hours Diet:: As Tolerated Discharge Orders Discharge Orders: Discharge Order (Routine); Ordered 10/14/24 Ordered By: Jh Montana DS: Diagnosis Discharge Diagnosis (1) Bilateral nephrolithiasis:
--- NOTE | 2024-10-14 08:31 | ROE_ITS ---
Operative Note Operative Note PRE-OP DIAGNOSIS: Left hydronephrosis POST-OP DIAGNOSIS: same left ureteral stricture PROCEDURE: cystoscopy, left retrograde pyelogram, left flexible ureteroscopy, insert left ureteral stent SURGEON: Jh Montana ANESTHESIA TYPE: Local By Surgeon and General LMA/ETT Refer to Anesthesia Record ESTIMATED BLOOD LOSS: 5 PATHOLOGY: none sent COMPLICATIONS: None Patient was transported to: PACU Patient's condition: stable Implants: 7 [place] by 22 to 30 cm left ureteral stent Indications: This is a 54-year-old woman who has a history of bilateral kidney stones. She had an obstructing large left ureteral stone that was treated with ureteroscopy and holmium laser lithotripsy. Her stone composition showed calcium oxalate plus uric acid. She has had persistent hydronephrosis on follow-up ultrasounds. She has a left flank pain and presents for ureteroscopy and possible holmium laser lithotripsy of any recurrent stones. Findings: stricture left mid ureter - unable to negotiate ureteroscope through this area Procedure Description: The patient had taken oral antibiotics. She was brought to the operating room on 10/14/2024. After successful induction of general anesthesia, she was placed in the dorsal lithotomy position. Her genitalia was prepped and draped. 2% Xylocaine jelly was instilled into the urethra to act as a local anesthetic. The 22 [place] rigid cystoscope was passed through the urethra into the bladder. The bladder was inspected with a 30 degree lens. Multiple small yellow-tinged stone particles were seen floating within the bladder. Both ureteral orifices were visualized. The left orifice was cannulated with a 5 [place] access catheter and a retrograde pyelogram was obtained by injecting Omnipaque through the access catheter under fluoroscopic guidance. In the mid ureter, there was an narrowing at the level of her previous kidney stone. A guidewire was then passed through the lumen of the catheter and the catheter was removed. I passed a dual-lumen catheter over the wire and a second wire was positioned. We chose one of the wires as a working wire and the other as a safety wire. I passed the flexible ureteroscope over the working wire but was only able to pass the scope up to the level of the narrowing seen on retrograde pyelogram. At this level, the mucosa appeared a bit hypertrophic. I removed the ureteroscope and attempted to pass the dual-lumen catheter through the area, but was not successful. We then elected to place a ureteral stent with plans to return for ureteroscopy after the ureter had dilated further. We chose a 7 [place] variable length stent and passed it over the safety wire. The proximal end of the stent was curled in the renal pelvis and the distal end was curled within the bladder. The positioning of the stent was confirmed both fluoroscopically and cystoscopically. The patient tolerated the procedure well with no complications. Date of Procedure: 10/14/24
[2024-10-14] MEDS: Phenazopyridine 200 MG TAB PO (08:50)
[2024-10-14] MEDS: fentaNYL 100 MCG/2 ML VIAL IVP ×2 (08:50→09:05)
--- NOTE | 2024-10-14 09:29 | W.ANESPOSTOP ---
Postoperative Evaluation Date, Time and Location Date Performed: 10/14/24 Time Performed: 09:10 Patient Location: PACU Vital Signs Most Recent Imported Vital Signs: Most Recent Vital Signs Temp Pulse Resp BP Pulse Ox 36.1 C L 65 12 116/79 98 10/14/24 09:23 10/14/24 09:23 10/14/24 09:23 10/14/24 09:23 10/14/24 09:23 Pain Score Most Recent Pain Score: Most Recent Pain Score Pain Level 5 10/14/24 09:23 Assessment Mental Status: Awake (Alert & Oriented to Patient Baseline) Airway and Respiratory Function: Patent airway with normal (patient baseline) respiratory exam Cardiovascular Function: Hemodynamically Stable Hydration Status: Adequately Hydrated Nausea & Vomiting: No Nausea or Vomiting Pain: Pain is tolerable per patient Peripheral Nerve Block: Patient did not receive a nerve block Postoperative Comments:: Doing well, conversive in no acute distress.
== END 2024-10-14 10:35 | disposition home or self-care (01) ==
PROVIDERS: PCP Nurse Practitioner Family; Visit Provider Urology
PROC: (CPT 52332; principal; 2024-10-14 07:30)
DX: N13.1 Hydronephrosis with ureteral stricture, not elsewhere classified (principal); N20.0 Calculus of kidney
CPT/HCPCS: 52332; 74420; J0131; J1100; J1805; J1885; J2250; J2405; J2704; J3010; Q9967

== ENCOUNTER 2024-10-29 08:19 | Outpatient (CLI) | payer MEDICARE, SELFPAY ==
--- NOTE | 2024-10-29 10:03 | DI.CT_ITS ---
Exam(s) CT UPPER EXTREMITY LT WO EXAM: CT UPPER EXTREMITY LT WO CLINICAL HISTORY: SURGICAL PLANNING,arthritis lt glenohumeral joint,m19.012. TECHNIQUE: Imaging Protocol: Axial computed tomography images with coronal and sagittal reformatted images were created and reviewed. COMPARISON: CR XR SHOULDER LT COMPLETE 2+V from 09/04/2024 FINDINGS: Bones: There is no evidence of fracture or dislocation. Bony alignment is satisfactory. No cellulitic or osteomyelitic changes are identified. There are degenerative cysts in the superior humeral head. There are small cysts at the posterior glenoid. Joints: There is moderate narrowing of the glenohumeral joint. There is spurring at the inferior humeral head. There is no significant spurring at the AC joint Soft Tissues: Normal. Visualized portions of the lungs are clear. IMPRESSION: Moderate degenerative changes of the glenohumeral joint. RADIATION DOSE DELIVERED: Total DLP Total DLP DATA REPOSITORY: All CT scans at this facility are submitted to the National Radiology Data Registry (NRDR) Dose Index Registry (DIR) with the [employer] ([employer]). RADIATION OPTIMIZATION: All CT scans at this facility use at least one of these dose optimization techniques: automated exposure control; mA and/or kV adjustment per patient size (includes targeted exams where dose is matched to clinical indication); or iterative reconstruction.
== END 2024-10-29 08:39 ==
LOC: DI 08:20
PROVIDERS: PCP Nurse Practitioner Family; Visit Provider Student in an Organized Health Care Education/Training Program
DX: M19.012 Primary osteoarthritis, left shoulder (principal)
CPT/HCPCS: 73200

== ENCOUNTER 2024-10-31 12:39 | Day surgery (SDC) | payer MEDICARE, SELFPAY ==
[2024-10-31] VITALS (16 sets, daily range): BP systolic 112–155; BP diastolic 66–91; PULSE 59–81; RESP 13–17; TEMP 36–36.7; O2SAT 97–100; BMI 20.9
--- NOTE | 2024-10-31 12:30 | DI.RAD_ITS ---
Exam(s) XR RETROGRADE IN OR EXAM: XR RETROGRADE IN OR CLINICAL HISTORY: Bilateral nephrolithiasis. TECHNIQUE: Fluoroscopy was provided for the referring physician for guidance with performing retrograde procedure. COMPARISON: XA XR RETROGRADE IN OR from 10/14/2024 FINDINGS: Please see procedure note for details. Fluoro time: 20.3 seconds RADIATION DOSE DELIVERED: beth Melo=2.4 mGy
[2024-10-31] MEDS: Lactated Ringers 1,000 ML 80 ML IV (13:55)
--- NOTE | 2024-10-31 14:11 | W.ANESPRE ---
General Info Date of Service Date Performed: 10/31/24 Height: 5 ft 2 in Weight: 51.9 kg Body Mass Index (BMI): 20.9 Surgical Procedure: Operation Date: 10/31/24 14:40 Proposed Procedure Side Surgeon p Cystoscopy/Possible Laser/Retrograde/Ureteroscopy/ Stent Removal Left Jh Montana MD Meds Allergies and Home Medications Allergies Allergy/AdvReac Type Severity Reaction Status Date / Time latex Allergy Severe HIVES, Verified 10/31/24 13:31 ITCHING erythromycin base AdvReac Intermediate NAUSEA, Verified 10/31/24 13:31 VOMITING chlorhexidine (From AdvReac Mild Itching Verified 10/31/24 13:31 Hibiclens) codeine AdvReac NAUSEA, Verified 10/31/24 13:31 VOMITING Dermabond Allergy Intermediate Skin Rash Uncoded 10/31/24 13:31 Glue Allergy Mild Rash and Uncoded 10/31/24 13:31 blisters Home Medication ?Medication ?Instructions ?Recorded cholecalciferol (vitamin D3) 50 2,000 unit PO DAILY 05/19/15 mcg (2,000 unit) capsule (Vitamin D3) blood-glucose meter (OneTouch #1 ea 07/13/22 Ultra2 Meter) metoclopramide HCl 5 mg tablet 5 mg PO TID PRN nausea and 08/10/22 (Reglan) vomiting #270 tabs fexofenadine 180 mg tablet 180 mg PO DAILY #90 tabs 03/20/23 montelukast 10 mg tablet 10 mg PO HS #90 tabs 09/14/23 (Singulair) levocetirizine 5 mg tablet 5 mg PO DAILY PRN allergy symptoms 09/21/23 #90 tabs multivitamin with minerals-iron See Rx Instructions PO DAILY #240 10/26/23 fumarate 9 mg iron/15 mL oral mL liquid (Complete Multivitamin-Multimineral) atorvastatin 10 mg tablet 10 mg PO QPM #90 tabs 12/28/23 buspirone 5 mg tablet 5 mg PO BID #180 tabs 12/28/23 fluoxetine 20 mg capsule 20 mg PO DAILY #90 caps 12/28/23 fluoxetine 40 mg capsule 40 mg PO DAILY #90 caps 12/28/23 lactase 9,000 unit tablet (Lactase 9,000 unit PO DAILY PRN lactose 12/28/23 Fast Acting) intolerance #90 tabs blood sugar diagnostic (OneTouch #200 ea 03/21/24 Ultra Test strips) esomeprazole magnesium 40 mg 40 mg PO DAILY #90 caps 03/21/24 capsule,delayed release (Nexium) lancets (Ultra Thin Lancets) #200 ea 03/21/24 magnesium oxide 500 mg capsule 500 mg PO DAILY #90 caps 03/21/24 triamcinolone acetonide 0.1 % 1 applic topical BID PRN rash #80 03/21/24 topical cream grams dicyclomine 20 mg tablet 20 mg PO TID PRN abdominal pain 03/28/24 #90 tabs ondansetron 4 mg disintegrating 4 mg PO Q8H PRN nausea and 07/11/24 tablet vomiting #14 tabs sumatriptan succinate 50 mg tablet 50 mg PO ONCE PRN migraine 08/06/24 headache #9 tabs budesonide 160 mcg-glycopyr 9 2 inh inhalation BID #10.7 grams 08/19/24 mcg-formot 4.8 mcg/actuation HFA inhaler (Zientia) levalbuterol HCl 0.63 mg/3 mL 0.63 mg (3 mL) inhalation Q6H PRN 08/20/24 solution for nebulization shortness of breath or wheezing #90 mL tamsulosin 0.4 mg capsule 0.4 mg PO DAILY PRN renal colic 08/27/24 #30 caps celecoxib 100 mg capsule (Celebrex) 100 mg PO BID #60 caps 09/19/24 cephalexin 500 mg capsule 500 mg PO TID #270 caps 09/23/24 albuterol sulfate 2.5 mg/3 mL 2.5 mg (3 mL) inhalation Q6H PRN 09/26/24 (0.083 %) solution for nebulization shortness of breath or wheezing #360 mL gabapentin 300 mg capsule 300 - 600 mg (1 - 2 x 300 mg) PO 09/26/24 TID #360 caps levalbuterol tartrate 45 2 inh inhalation Q6H PRN shortness 09/26/24 mcg/actuation aerosol inhaler of breath or wheezing #3 ea tramadol 50 mg tablet 50 mg PO BID PRN pain #30 tabs 10/02/24 morphine 15 mg immediate release 15 mg PO Q6H PRN pain #20 tabs 10/17/24 tablet acetaminophen 500 mg tablet 1,000 mg (2 x 500 mg) PO TID #90 10/28/24 tabs Current Visit Medications: Current Medications Generic Name Dose Route Start Last Admin Trade Name Aggie PRN Reason Stop Dose Admin Ringer's Solution 1,000 mls @ 80 mls/hr 10/31/24 06:00 10/31/24 13:55 IV 10/31/24 23:59 80 mls/hr INFUSION BROWN Administration Cefazolin Sodium/Dextrose 2 gm in 50 mls @ 100 mls/hr 10/31/24 06:00 Ancef Duplex IVPB 10/31/24 23:59 PREOP BROWN IV Miscellaneous Supplies 1 each 10/31/24 06:00 Iv Access IV 10/31/24 23:59 DIRECTED BROWN Sodium Chloride 0 ml 10/31/24 06:00 Normal Saline Flush 10 Ml Syr IV 10/31/24 23:59 PRN PRN Sodium Chloride 0 ml 10/31/24 06:00 Normal Saline 10 Ml Vial IJ 10/31/24 23:59 DIRECTED PRN Sterile Water 0 ml 10/31/24 06:00 Water,Injection,Sterile 10 Ml Vial IJ 10/31/24 23:59 DIRECTED PRN PFSH Active Problems Active Problems: Problem Status Onset Code Degenerative joint disease (DJD) of lumbar spine Acute M47.816 Chronic low back pain Chronic M54.50, G89.29 Painful total knee replacement, right Chronic T84.84XA, Z96.651 Carpal tunnel syndrome of left wrist Chronic G56.02 Arthritis of left glenohumeral joint Chronic M19.012 Prediabetes Chronic R73.03 Tendinitis of left rotator cuff Chronic M75.82 Dysphagia Chronic R13.10 Metabolic dysfunction-associated steatotic liver disease (MASLD) Chronic K76.0 Asthma-COPD overlap syndrome Chronic J44.89 Generalized anxiety disorder Chronic F41.1 Major depressive disorder, recurrent Chronic F33.9 Degenerative joint disease, shoulder, 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 Degenerative joint disease, shoulder, 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 At risk for aspiration Chronic Z91.89 Gastroesophageal reflux disease with esophagitis Chronic K21.0 Migraine Chronic G43.909 Hyperlipidemia Chronic E78.5 Medical History Medical History Type 2 diabetes mellitus Tubular adenoma of colon On 2019 colonoscopy Bilateral nephrolithiasis Pyloric ulcer associated with Helicobacter pylori 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 Surgical History Surgical History (Updated 10/31/24 @ 13:36 by Anjelica eDlarosa) History of hysterectomy S/P repair of paraesophageal hernia (07/04/22) Repaired in a revised T[place]et fundoplication d/t multiple prior repairs History of fundoplication (07/04/22) Toupet fundoplication for revision of prior nga fundoplication 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) left TKA on 07/06/17 left knee synovectomy and polyethylene exchange on 08/22/17 irrigation and debridement with polyethylene exchange and placement of antibiotic beads on 09/13/17 explantation of left knee arthroplasty with placement of cement spacer on 10/19/17 2-stage revision left knee arthroplasty on 12/22/17 irrigation and debridement of left knee with antibiotic bead placement on 04/22/18 History of colonoscopy (05/15/23) History of carpal tunnel surgery of right wrist (04/05/22) History of arthroscopy of left shoulder (02/07/23) History of arthroscopy of right shoulder (03/02/22) S/P recurrent ventral herniorrhaphy Status post total left knee replacement (07/06/17) Status post arthroscopy of left knee (08/21/19) Hx of cystoscopy Lithotripsy, stents x 3 History of total right knee replacement History of esophagogastroduodenoscopy History of incisional hernia repair Status post Nga fundoplication Status post cholecystectomy Status post laparoscopic hysterectomy Status post tonsillectomy Status post revision of total replacement of left knee (07/21/20) Patellar resurfacing DOS: 07/21/2020 DOS: 12/22/17 Dr. Gongora Tobacco Smoking/Tobacco Use Status: Never Passive smoking exposure: Yes Second hand exposure: Yes Alcohol Alcohol Intake: current Alcohol intake frequency: holidays/special occasions only Alcohol type: hard liquor and other Substance Use Substance use: Never Substance use type: does not use Vital Signs and Lab Results Vital Signs Most Recent Vital Signs in EMR: Most Recent Vital Signs Temp Pulse Resp BP Pulse Ox 36.7 C 77 16 112/66 99 10/31/24 13:00 10/31/24 13:00 10/31/24 13:00 10/31/24 13:00 10/31/24 13:00 Imaging and Studies Imaging and Studies Study information below may be from another EMR and interpreted by another provider. Please see original notes in EMR for more complete details. CT Summary: Exam(s) CT ABDOMEN PELVIS W EXAM: CT ABDOMEN PELVIS W CLINICAL HISTORY: lower Abdominal pain. TECHNIQUE: Imaging Protocol: Axial computed tomography images with coronal and sagittal reformatted images were created and reviewed CONTRAST MATERIAL: Intravenous: Omnipaque 350 Contrast volume:70 ml Oral: no COMPARISON: CT CT ABDOMEN PELVIS W from 10/05/2023 FINDINGS: ABDOMEN and PELVIS: Lung Bases: No acute findings. Similar appearance of thickening of the distal is esophagus and upper fundus likely representing this in fundoplication. Similar appearance to Liver: Normal density. No suspicious mass. Gallbladder and biliary tract: Cholecystectomy. No biliary dilation. Pancreas: Normal density. No abnormal calcifications or inflammatory process. No evidence of mass. Spleen: Normal. Kidneys: Normal size, contour and axis. The 6 millimeter stone upper cyst upper pole left kidney. Larger stones noted at the lower pole. None millimeters stone at the ureteropelvic junction causing moderate left hydronephrosis. There is some delay in the left nephrogram. There is mild left perinephric stranding. No suspicious masses seen. Adrenal glands: No masses seen. Vasculature: Abdominal aorta non-dilated. Mild atherosclerotic calcification Soft tissues: The midline abdominal wall hernia repair. Bladder: Nearly empty. No gross wall thickening. No calculi.No focal mass. Bowel: No obstruction. No bowel wall thickening. Appendix normal. Peritoneal cavity: No ascites. No focal collection. No mesenteric inflammatory response. No free air. Bones: Unremarkable for age. Reproductive organs: Status post hysterectomy with residual cervical stump. Similar appearing cystic lesion at the cervix, likely nabothian cyst. Small cyst right ovary. Lymph nodes: No pathologically enlarged lymph nodes. IMPRESSION:: 9 millimeter stone at the left ureteropelvic junction causing moderate hydronephrosis. Additional nonobstructing left renal calculi. Other Study Summary:: 04/14, gastric emptying study: no evidence of delated gastric emptying. 02/10, upper GI: hiatal hernia. Anesthesia Assessment and Plan Anesthesia History Personal History: No History of Anesthesia Complications and Other Family History: No Family History of Anesthesia Complications Exercise Tolerance Exercise Tolerance: Metabolic Equivalents>4 Pertinent Negatives Pertinent Negatives: No Symptoms of GERD Cardiac & Pulmonary Exam Cardiac Exam: Normal S1/S2 Heart Sounds Pulmonary Exam: Clear Bilateral Breath Sounds Implantable Cardiac Device Does patient have a Pacemaker or an ICD?: No Airway Exam Known Difficult Airway: No Mallampati Class: 3 Mouth Opening: Narrow (< 3cm) Thyromental Distance: Less than 3 cm Neck Range of Motion: Full ROM Neck Circumference: Normal Teeth Condition: Generalized Poor Dentition and Loose or Chipped (some broken molars, none loose per patient) ASA Classification ASA Score: ASA 3 Emergency Case?: No NPO Status NPO Status: NPO Clears >2 hours, Solids >8 hours Anesthesia Plan Resuscitation Status: Full Code Anesthesia Technique: General Anesthesia Airway Planned: Endotracheal Tube Monitors Used: Standard Monitors
--- NOTE | 2024-10-31 14:26 | W.PM.HP.N ---
Date of service: 10/31/24 Time of Service: 14:26 Assessment and Plan Assessment and plan (1) Stricture of left ureter: Status: Acute Assessment and plan: We will remove her stent and we should be able to pass her ureteroscope up above the strictured area to assess the remainder of her ureter and her kidney. History of Present Illness History of Present Illness Chief Complaint: Left ureteral stricture Narrative: This is a 54-year-old woman who has a past history of kidney stones. She underwent ureteroscopy and holmium laser lithotripsy for a left proximal ureteral stone. She had persistent hydronephrosis following the procedure. When we brought her back to the operating room, I was unable to pass the ureteroscope through a narrowed area at the site of her previous stone. We placed a 7 Serbian variable length stent to allow the area to dilate. She presents now for repeat ureteroscopy to assess the proximal ureter and kidney Review of Systems Narrative: No fevers or chills No vision change No diabetes or thyroid dysfunction COPD. No hemoptysis No chest pain or palpitations GERD. No hepatitis, ulcers, jaundice Hx migraine headaches. No seizures, strokes or peripheral neuropathy No bleeding disorders or anemia No gout PFSH All Active Problems (Updated 10/31/24 @ 14:33 by Jh Montana MD) Stricture of left ureter (Acute) Degenerative joint disease (DJD) of lumbar spine (Acute) Chronic low back pain (Chronic) Painful total knee replacement, right (Chronic) Carpal tunnel syndrome of left wrist (Chronic) Arthritis of left glenohumeral joint (Chronic) Prediabetes (Chronic) Tendinitis of left rotator cuff (Chronic) Dysphagia (Chronic) Metabolic dysfunction-associated steatotic liver disease (MASLD) (Chronic) Asthma-COPD overlap syndrome (Chronic) Generalized anxiety disorder (Chronic) Major depressive disorder, recurrent (Chronic) Degenerative joint disease, shoulder, right (Chronic) Degenerative joint disease, shoulder, left (Chronic) At risk for aspiration (Chronic) Gastric contents noted in mouth after all general ETT anesthetics. Recommend ETT for GA. Gastroesophageal reflux disease with esophagitis (Chronic) s/p Toupet fundoplication Migraine (Chronic) Hyperlipidemia (Chronic) Medical History (Updated 10/31/24 @ 14:33 by Jh Montana MD) Type 2 diabetes mellitus Tubular adenoma of colon On 2020 colonoscopy Bilateral nephrolithiasis Pyloric ulcer associated with Helicobacter pylori 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 Surgical History (Updated 10/31/24 @ 13:36 by Anjelica Delarosa) History of hysterectomy S/P repair of paraesophageal hernia (07/04/22) Repaired in a revised Toupet fundoplication d/t multiple prior repairs History of fundoplication (07/04/22) Toupet fundoplication for revision of prior nga fundoplication 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) left TKA on 07/06/17 left knee synovectomy and polyethylene exchange on 08/22/17 irrigation and debridement with polyethylene exchange and placement of antibiotic beads on 09/13/17 explantation of left knee arthroplasty with placement of cement spacer on 10/19/17 2-stage revision left knee arthroplasty on 12/22/17 irrigation and debridement of left knee with antibiotic bead placement on 04/22/18 History of colonoscopy (05/15/23) History of carpal tunnel surgery of right wrist (04/05/22) History of arthroscopy of left shoulder (02/07/23) History of arthroscopy of right shoulder (03/02/22) S/P recurrent ventral herniorrhaphy Status post total left knee replacement (07/06/17) Status post arthroscopy of left knee (08/21/19) Hx of cystoscopy Lithotripsy, stents x 3 History of total right knee replacement History of esophagogastroduodenoscopy History of incisional hernia repair Status post Nga fundoplication Status post cholecystectomy Status post laparoscopic hysterectomy Status post tonsillectomy Status post revision of total replacement of left knee (07/21/20) Patellar resurfacing DOS: 07/21/2020 DOS: 12/22/17 Dr. Gongora Family History Mother Depression Hyperlipidemia Hypertension Father , 72 Diabetes Heart disease Leukemia Hypertension Sister No problems noted. Maternal Grandfather , 80 Heart disease Hyperlipidemia Paternal Grandfather , 80 Diabetes Heart disease Hyperlipidemia Maternal Grandmother , 82 Diabetes Heart disease Paternal Grandmother , 73 Heart disease Hyperlipidemia Asthma Diabetes Social History Smoking/Tobacco Use Status: Never Second Hand Exposure: Yes Smoking risk assessment performed?: Yes Alcohol Intake: current Alcohol Intake frequency: holidays/special occasions only Alcohol type: hard liquor and other Drug use: Never Substance use type: does not use Adopted: No Caregiver/Support person: No Foster care: No Household members: spouse Housing: apartment Communication Needs: None Education Level: high school Details: 12TH Do you need help understanding health information?: Never current occupation: Disabled Pets and animals: Yes Pets and animals: cat(s) and dog(s) Sexually active: No Do you think of yourself as: straight/heterosexual Current gender identity: female What is your relationship status?: How often do you talk on the phone with friends or family?: three or more times per week How often do you get together with friends or relatives?: three or more times per week How often do you attend nondenominational or jainism services?: decline to answer Do you belong to any clubs or organized social groups?: no Panel score (0-1 are the most socially isolated patients): 2 What type of physical activity do you participate in: walking Duration: 15-30 minutes/day Frequency: 3-4 times per week Sita/Sikhism: No preference Special sita needs: No Seatbelt use: always Helmet use: No Drive intox or ride w/intox taxi cab driver: No Firearms in home: No Victim of physical abuse: No Victim of emotional abuse: No Victim of sexual abuse: No Would you like helpful sources: No Additional Social history: UT[employer] Meds Allergies and Home Medications Allergies Allergy/AdvReac Type Severity Reaction Status Date / Time latex Allergy Severe HIVES, Verified 10/31/24 13:31 ITCHING erythromycin base AdvReac Intermediate NAUSEA, Verified 10/31/24 13:31 VOMITING chlorhexidine (From AdvReac Mild Itching Verified 10/31/24 13:31 Hibiclens) codeine AdvReac NAUSEA, Verified 10/31/24 13:31 VOMITING Dermabond Allergy Intermediate Skin Rash Uncoded 10/31/24 13:31 Glue Allergy Mild Rash and Uncoded 10/31/24 13:31 blisters Home Medications ?Medication ?Instructions ?Recorded ?Confirmed ?Type cholecalciferol (vitamin D3) 50 2,000 unit PO DAILY 05/19/15 10/31/24 History mcg (2,000 unit) capsule (Vitamin D3) blood-glucose meter (EnergyDeckuch #1 ea 07/13/22 09/26/24 Rx Ultra2 Meter) metoclopramide HCl 5 mg tablet 5 mg PO TID PRN nausea and 08/10/22 10/31/24 Rx (Reglan) vomiting #270 tabs fexofenadine 180 mg tablet 180 mg PO DAILY #90 tabs 03/20/23 10/31/24 Rx montelukast 10 mg tablet 10 mg PO HS #90 tabs 09/14/23 10/31/24 Rx (Singulair) levocetirizine 5 mg tablet 5 mg PO DAILY PRN allergy symptoms 09/21/23 10/31/24 Rx #90 tabs multivitamin with minerals-iron See Rx Instructions PO DAILY #240 10/26/23 10/31/24 Rx fumarate 9 mg iron/15 mL oral mL liquid (Complete Multivitamin-Multimineral) atorvastatin 10 mg tablet 10 mg PO QPM #90 tabs 12/28/23 10/31/24 Rx buspirone 5 mg tablet 5 mg PO BID #180 tabs 12/28/23 10/31/24 Rx fluoxetine 20 mg capsule 20 mg PO DAILY #90 caps 12/28/23 10/31/24 Rx fluoxetine 40 mg capsule 40 mg PO DAILY #90 caps 12/28/23 10/31/24 Rx lactase 9,000 unit tablet (Lactase 9,000 unit PO DAILY PRN lactose 12/28/23 10/31/24 Rx Fast Acting) intolerance #90 tabs blood sugar diagnostic (OneTouch #200 ea 03/21/24 09/26/24 Rx Ultra Test strips) esomeprazole magnesium 40 mg 40 mg PO DAILY #90 caps 03/21/24 10/31/24 Rx capsule,delayed release (Nexium) lancets (Ultra Thin Lancets) #200 ea 03/21/24 09/26/24 Rx magnesium oxide 500 mg capsule 500 mg PO DAILY #90 caps 03/21/24 10/31/24 Rx triamcinolone acetonide 0.1 % 1 applic topical BID PRN rash #80 03/21/24 10/31/24 Rx topical cream grams dicyclomine 20 mg tablet 20 mg PO TID PRN abdominal pain 03/28/24 10/31/24 Rx #90 tabs ondansetron 4 mg disintegrating 4 mg PO Q8H PRN nausea and 07/11/24 10/31/24 Rx tablet vomiting #14 tabs sumatriptan succinate 50 mg tablet 50 mg PO ONCE PRN migraine 08/06/24 10/31/24 Rx headache #9 tabs budesonide 160 mcg-glycopyr 9 2 inh inhalation BID #10.7 grams 08/19/24 10/31/24 Rx mcg-formot 4.8 mcg/actuation HFA inhaler (Breztri Aerosphere) levalbuterol HCl 0.63 mg/3 mL 0.63 mg (3 mL) inhalation Q6H PRN 08/20/24 10/31/24 Rx solution for nebulization shortness of breath or wheezing #90 mL tamsulosin 0.4 mg capsule 0.4 mg PO DAILY PRN renal colic 08/27/24 10/31/24 Rx #30 caps celecoxib 100 mg capsule (Celebrex) 100 mg PO BID #60 caps 09/19/24 10/31/24 Rx cephalexin 500 mg capsule 500 mg PO TID #270 caps 09/23/24 10/31/24 Rx albuterol sulfate 2.5 mg/3 mL 2.5 mg (3 mL) inhalation Q6H PRN 09/26/24 10/31/24 Rx (0.083 %) solution for nebulization shortness of breath or wheezing #360 mL gabapentin 300 mg capsule 300 - 600 mg (1 - 2 x 300 mg) PO 09/26/24 10/31/24 Rx TID #360 caps levalbuterol tartrate 45 2 inh inhalation Q6H PRN shortness 09/26/24 10/31/24 Rx mcg/actuation aerosol inhaler of breath or wheezing #3 ea tramadol 50 mg tablet 50 mg PO BID PRN pain #30 tabs 10/02/24 10/31/24 Rx morphine 15 mg immediate release 15 mg PO Q6H PRN pain #20 tabs 10/17/24 10/31/24 Rx tablet acetaminophen 500 mg tablet 1,000 mg (2 x 500 mg) PO TID #90 10/28/24 10/31/24 Rx tabs Exam Const General: cooperative Neck Neck: supple Resp Effort & Inspection: normal respiratory effort Auscultation: clear to auscultation bilaterally Cardio Rate: regular rate Rhythm: regular rhythm GI Palpation: no masses Neuro General: patient alert, patient awake and patient oriented x3 Results Last Vital Signs Temp 36.7 C 10/31/24 13:00 Pulse 77 10/31/24 13:00 Resp 16 10/31/24 13:00 BP 112/66 10/31/24 13:00 Pulse Ox 99 10/31/24 13:00 Time Spent Time spent with Patient: <40 minutes Time was spent: other
[2024-10-31] MEDS: ceFAZolin 2 GM/50 ML BAG IVPB (15:01)
[2024-10-31] MEDS: Lidocaine 2% Jelly 6 ML SYR (15:16)
[2024-10-31] MEDS: Omnipaque 300 MG/ML 50 ML BTL (15:16)
--- NOTE | 2024-10-31 15:48 | W.PM.DSUDISC ---
Date of service: 10/31/24 Discharge Plan Disposition Patient Disposition: Home Condition: Stable Discharge Details Reason For Visit: Ureteral stone Attending Provider: Jh Montana Primary Care Provider: Renetta Bonner Recommendations for Follow Up Recommended tests to be ordered by follow up provider: Renal ultrasound to be done in my office 6 to 8 weeks Home Meds and New Rx's Prescriptions: No Action (DME) blood-glucose meter [OneTouch Ultra2 Meter] Misc See Rx Instructions .Route Qty: 1 3RF Rx Instructions: Check blood sugar twice a day levocetirizine 5 mg tablet 5 mg PO DAILY PRN (Reason: allergy symptoms) Qty: 90 3RF lactase [Lactase Fast Acting] 9,000 unit tablet 9,000 unit PO DAILY PRN (Reason: lactose intolerance) Qty: 90 3RF atorvastatin 10 mg tablet 10 mg PO QPM Qty: 90 3RF buspirone 5 mg tablet 5 mg PO BID Qty: 180 3RF fluoxetine 20 mg capsule 20 mg PO DAILY Qty: 90 3RF Rx Instructions: Take with 40mg cap for a total of 60mg fluoxetine 40 mg capsule 40 mg PO DAILY Qty: 90 3RF Rx Instructions: Take with 20mg cap for a total of 60mg Breztri Aerosphere 160-9-4.8 mcg/actuation HFA aerosol inhaler 2 inh inhalation BID Qty: 10.7 12RF levalbuterol HCl 0.63 mg/3 mL solution for nebulization 0.63 mg inhalation Q6H PRN (Reason: shortness of breath or wheezing) Qty: 90 6RF levalbuterol tartrate 45 mcg/actuation HFA aerosol inhaler 2 inh inhalation Q6H PRN (Reason: shortness of breath or wheezing) Qty: 3 4RF albuterol sulfate 2.5 mg /3 mL (0.083 %) solution for nebulization 2.5 mg Inhalation Q6H PRN (Reason: shortness of breath or wheezing) Qty: 360 3RF Patient Comments: 07/03/17 Per pt uses every night.jw gabapentin 300 mg capsule 300 - 600 mg PO TID Qty: 360 3RF Rx Instructions: 1 pill in the morning and afternoon and 2 pills in the evening ondansetron 4 mg tablet,disintegrating 4 mg PO Q8H PRN (Reason: nausea and vomiting) Qty: 14 0RF sumatriptan succinate 50 mg tablet 50 mg PO ONCE MDD 2 pills PRN (Reason: migraine headache) Qty: 9 4RF Rx Instructions: Take one tab at onset of headache. May repeat in 1 hour if no relief. cephalexin 500 mg capsule 500 mg PO TID Qty: 270 3RF tamsulosin 0.4 mg capsule 0.4 mg PO DAILY PRN (Reason: renal colic) Qty: 30 1RF fexofenadine 180 mg tablet 180 mg PO DAILY Qty: 90 3RF triamcinolone acetonide 0.1 % cream 1 applic topical BID PRN (Reason: rash) Qty: 80 1RF magnesium oxide 500 mg capsule 500 mg PO DAILY Qty: 90 3RF esomeprazole magnesium [Nexium] 40 mg capsule,delayed release(DR/EC) 40 mg PO DAILY Qty: 90 3RF (DME) OneTouch Ultra Test Strip 1 ea Miscellaneous DAILY Qty: 200 3RF Rx Instructions: Check blood sugar twice a day (DME) lancets [Ultra Thin Lancets] Misc 1 ea Miscellaneous DAILY Qty: 200 3RF Rx Instructions: Check blood sugar twice a day cholecalciferol (vitamin D3) [Vitamin D3] 2,000 UNIT capsule 2,000 unit PO DAILY metoclopramide HCl [Reglan] 5 mg tablet 5 mg PO TID PRN (Reason: nausea and vomiting) Qty: 270 3RF montelukast [Singulair] 10 mg tablet 10 mg PO HS Qty: 90 3RF Complete Multivitamin-Mineral 9 mg iron/15 mL liquid See Rx Instructions PO DAILY Qty: 240 3RF Rx Instructions: orally daily; dicyclomine 20 mg tablet 20 mg PO TID PRN (Reason: abdominal pain) Qty: 90 3RF celecoxib [Celebrex] 100 mg capsule 100 mg PO BID Qty: 60 0RF tramadol 50 mg tablet 50 mg PO BID PRN (Reason: pain) Qty: 30 0RF morphine 15 mg tablet 15 mg PO Q6H MDD 4 PRN (Reason: pain) Qty: 20 0RF acetaminophen 500 mg tablet 1,000 mg PO TID Qty: 90 4RF Discharge Instructions Additional Instructions: I did treat a stone that was up in your kidney, but the pieces are now so small that you do not need to strain your urine. Your follow-up appointment will be with me in about 6 to 8 weeks. We would do an ultrasound at that time and talk about testing your urine so that we can prevent future stones. Activity:: Activity as Tolerated Shower/Bathe:: 24 hours Diet:: As Tolerated Discharge Orders Discharge Orders: Discharge Order (Routine); Ordered 10/31/24 Ordered By: Jh Montana DS: Diagnosis Discharge Diagnosis (1) Stricture of left ureter: Status: Acute
--- NOTE | 2024-10-31 15:52 | W.PM.OP ---
Operative Note Operative Note PRE-OP DIAGNOSIS: Left ureteral stricture POST-OP DIAGNOSIS: same Left kidney stone PROCEDURE: Cystoscopy, remove left ureteral stent, left retrograde pyelogram, left flexible ureteroscopy, holmium laser lithotripsy of upper pole stone SURGEON: Jh Montana ANESTHESIA TYPE: Local By Surgeon and General LMA/ETT Refer to Anesthesia Record ESTIMATED BLOOD LOSS: 5 COMPLICATIONS: None Patient was transported to: PACU Patient's condition: stable Implants: none Indications: This is a 54-year-old woman who has a history of kidney stones. In the past, she had a left proximal ureteral stone that was treated with ureteroscopy and holmium laser lithotripsy. Following the procedure, she had persistent hydronephrosis suggestive of a ureteral stricture. She was brought back to the operating room where she underwent cystoscopy with placement of a ureteral stent. At that time, was not able to advance my scope through the narrowed ureter. She presents now for stent removal and repeat ureteroscopy. Findings: Encrusted ureteral stent Narrowing in the proximal ureter Stone in upper pole calyx Procedure Description: The patient was given antibiotics and brought to the operating room on 10/31/2024. After successful induction of general anesthesia, she was placed in the dorsal lithotomy position. The genitalia was prepped and draped. 2% Xylocaine jelly was instilled into the urethra. The 22 Vietnamese rigid cystoscope was passed through the urethra into the bladder. The bladder was inspected with a 30 degree lens. A stent could be seen protruding from the left ureteral orifice. The stent was quite encrusted in spite of its short dwell time. The end of the stent was grasped with alligator forceps and brought to the level of the urethral meatus. A guidewire was advanced through the lumen of the stent and the stent was removed leaving the wire in place. I then passed a dual-lumen catheter over the wire and positioned the catheter in the mid ureter. I injected Omnipaque through the second lumen of the dual-lumen catheter and we identified the narrowing in the ureter. I then advanced the dual-lumen catheter through the narrowed area and positioned a second wire. We chose one of the wires as a working wire and the other as a safety wire. I passed the ureteral access sheath over the working wire leaving the safety wire in place. I was able to pass the flexible ureteroscope through the access sheath, through the narrowed area and up to the renal pelvis. Each of the calyces were inspected and in one of the upper pole calyces, we identified a kidney stone with an estimated measurement 5 mm. The stone was then treated with a 272 ?m holmium laser fiber. We used a combination of fragmentation settings and dusting settings. The stone particles were too small for basketing and we expect the stone fragments to pass on their own. The ureteroscope and access sheath were removed. The dual-lumen catheter was replaced over the safety wire and the renal pelvis was filled with contrast. We then watched the kidney and upper ureter fluoroscopically and it appeared that there was adequate drainage through the ureteral strictured area, so we elected not to place a ureteral stent. The patient tolerated this procedure well with no complications. She was taken to the recovery room in stable condition. Date of Procedure: 10/31/24
--- NOTE | 2024-10-31 16:09 | W.ANESPOSTOP ---
Postoperative Evaluation Date, Time and Location Date Performed: 10/31/24 Time Performed: 16:09 Patient Location: PACU Vital Signs Most Recent Imported Vital Signs: Most Recent Vital Signs Temp Pulse Resp BP Pulse Ox 36.3 C L 74 14 152/74 H 98 10/31/24 15:58 10/31/24 16:01 10/31/24 16:01 10/31/24 16:00 10/31/24 16:01 Pain Score Most Recent Pain Score: Most Recent Pain Score Pain Level 4 10/31/24 16:03 Assessment Mental Status: Arousable with meaningful communication Airway and Respiratory Function: Patent airway with normal (patient baseline) respiratory exam Cardiovascular Function: Hemodynamically Stable Hydration Status: Adequately Hydrated Nausea & Vomiting: No Nausea or Vomiting Pain: Pain is tolerable per patient Peripheral Nerve Block: Patient did not receive a nerve block
[2024-10-31] MEDS: Phenazopyridine 200 MG TAB PO (16:31)
[2024-10-31] MEDS: traMADol 50 MG TAB PO (16:35)
== END 2024-10-31 17:10 | disposition home or self-care (01) ==
PROVIDERS: PCP Nurse Practitioner Family; Visit Provider Urology
PROC: (CPT 52353; principal; 2024-10-31 14:30)
DX: N13.5 Crossing vessel and stricture of ureter without hydronephrosis (principal); N20.0 Calculus of kidney
CPT/HCPCS: 52353; 74420; J0330; J0690; J1100; J1805; J2250; J2405; J2704; Q9967

== ENCOUNTER → 2024-11-05 10:11 | Outpatient (BNVA) | payer MEDICARE, SELFPAY | PROVIDERS: PCP Nurse Practitioner Family; Referring Provider Nurse Practitioner Family; Visit Provider Student in an Organized Health Care Education/Training Program | DX: M19.012 Primary osteoarthritis, left shoulder (principal) | CPT/HCPCS: 99214 ==

== ENCOUNTER 2024-12-10 00:06 | Outpatient (CLI) | payer MEDICARE, SELFPAY ==
[2024-12-10 09:21] LABS: Abs Immature Grans 0.03 10^3/uL (0.0-0.06); HCT 35.5 % (36.0-46.0); HGB 12.0 g/dL (11.2-15.7); Immature Grans % 0.4 %; MCH 33.1 pg (27.0-33.0); MCHC 33.8 % (32.0-36.0); MCV 98 fL (80-95); MPV 9.9 fL (8.0-11.0); Platelet Count 268 10^3/uL (130-400); RBC 3.62 10^6/uL (3.93-5.22); RDW 12.7 % (11.7-14.6); RDW-SD 45.6 fL; WBC 7.45 10^3/uL (4.4-10.8)
[2024-12-10 09:55] LABS: Hemoglobin A1C 5.1 % (<5.7)
[2024-12-10 10:11] LABS: ALT 12 U/L (14-59); AST 12 U/L (15-37); Albumin 3.3 g/dL (3.4-5.0); Alkaline Phosphatase 65 U/L (46-116); Anion Gap 7.5 mmol/L (3-11); BUN 15 mg/dL (7-18); Bilirubin, Total 1.0 mg/dL (0.2-1.0); CO2 26.5 mmol/L (21.0-32.0); Calcium 9.0 mg/dL (8.5-10.1); Chloride 106 mmol/L (98-107); Estimated GFR 59.34 (mL/min/1.73m2); Glucose 104 mg/dL (74-106); Potassium 4.4 mmol/L (3.5-5.1); Sodium 140 mmol/L (136-145); Total Protein 7.3 g/dL (6.4-8.2)
== END 2024-12-10 00:07 | disposition home or self-care (01) ==
LOC: LBO 00:06
PROVIDERS: PCP Nurse Practitioner Family; Visit Provider Nurse Practitioner Family
DX: Z01.818 Encounter for other preprocedural examination (principal); R73.03 Prediabetes
CPT/HCPCS: 36415; 80053; 83036; 85025

== ENCOUNTER → 2024-12-12 08:47 | Outpatient (BNVA) | payer MEDICARE, SELFPAY | PROVIDERS: PCP Nurse Practitioner Family; Referring Provider Nurse Practitioner Family; Visit Provider Psychiatry & Neurology Neurology | DX: G56.02 Carpal tunnel syndrome, left upper limb (principal) | CPT/HCPCS: 95909 ==

== ENCOUNTER → 2024-12-19 14:18 | Outpatient (BNVA) | payer MEDICARE, SELFPAY | PROVIDERS: PCP Nurse Practitioner Family; Referring Provider Nurse Practitioner Family; Visit Provider Student in an Organized Health Care Education/Training Program | DX: G56.02 Carpal tunnel syndrome, left upper limb (principal) | CPT/HCPCS: 99214 ==

== ENCOUNTER 2024-12-24 11:44 | Day surgery (SDC) | payer MEDICARE, SELFPAY ==
[2024-12-24 12:18] VITALS: BP 122/93; PULSE 89; RESP 20; TEMP 36.7; O2SAT 99
[2024-12-24] MEDS: Lactated Ringers 1,000 ML 80 ML IV (12:45)
--- NOTE | 2024-12-24 12:46 | W.ANESPRE ---
General Info Date of Service Date Performed: 12/24/24 Height: 5 ft 2 in Weight: 53.4 kg Body Mass Index (BMI): 21.5 Surgical Procedure: Operation Date: 12/24/24 14:40 Proposed Procedure Side Surgeon p Wrist ECTR Left Raheel Gongora MD Actual Procedure Side Surgeon p Wrist ECTR Left Raheel Gongora MD Pre-Op Diagnosis Post-Op Diagnosis Carpal tunnel syndrome of left wrist Meds Allergies and Home Medications Allergies Allergy/AdvReac Type Severity Reaction Status Date / Time latex Allergy Severe HIVES, Verified 12/24/24 12:08 ITCHING ibuprofen AdvReac Severe Other (See Verified 12/24/24 12:09 Comment) erythromycin base AdvReac Intermediate NAUSEA, Verified 12/24/24 12:08 VOMITING chlorhexidine (From AdvReac Mild Itching Verified 12/24/24 12:08 Hibiclens) codeine AdvReac NAUSEA, Verified 12/24/24 12:08 VOMITING Dermabond Allergy Intermediate Skin Rash Uncoded 12/24/24 12:08 Glue Allergy Mild Rash and Uncoded 12/24/24 12:08 blisters Home Medication Medication Instructions Recorded cholecalciferol (vitamin D3) 50 2,000 unit PO DAILY 05/19/15 mcg (2,000 unit) capsule (Vitamin D3) metoclopramide HCl 5 mg tablet 5 mg PO TID PRN nausea and 08/10/22 (Reglan) vomiting #270 tabs fexofenadine 180 mg tablet 180 mg PO DAILY #90 tabs 03/20/23 levocetirizine 5 mg tablet 5 mg PO DAILY PRN allergy symptoms 09/21/23 #90 tabs multivitamin with minerals-iron See Rx Instructions PO DAILY #240 10/26/23 fumarate 9 mg iron/15 mL oral mL liquid (Complete Multivitamin-Multimineral) lactase 9,000 unit tablet (Lactase 9,000 unit PO DAILY PRN lactose 12/28/23 Fast Acting) intolerance #90 tabs blood sugar diagnostic (OneTouch #200 ea 03/21/24 Ultra Test strips) esomeprazole magnesium 40 mg 40 mg PO DAILY #90 caps 03/21/24 capsule,delayed release (Nexium) magnesium oxide 500 mg capsule 500 mg PO DAILY #90 caps 03/21/24 triamcinolone acetonide 0.1 % 1 applic topical BID PRN rash #80 03/21/24 topical cream grams dicyclomine 20 mg tablet 20 mg PO TID PRN abdominal pain 03/28/24 #90 tabs ondansetron 4 mg disintegrating 4 mg PO Q8H PRN nausea and 07/11/24 tablet vomiting #14 tabs budesonide 160 mcg-glycopyr 9 2 inh inhalation BID #10.7 grams 08/19/24 mcg-formot 4.8 mcg/actuation HFA inhaler (CohealozPrepared Responsei Aerosphere) levalbuterol HCl 0.63 mg/3 mL 0.63 mg (3 mL) inhalation Q6H PRN 08/20/24 solution for nebulization shortness of breath or wheezing #90 mL tamsulosin 0.4 mg capsule 0.4 mg PO DAILY PRN renal colic 08/27/24 #30 caps albuterol sulfate 2.5 mg/3 mL 2.5 mg (3 mL) inhalation Q6H PRN 09/26/24 (0.083 %) solution for nebulization shortness of breath or wheezing #360 mL gabapentin 300 mg capsule 300 - 600 mg (1 - 2 x 300 mg) PO 09/26/24 TID #360 caps levalbuterol tartrate 45 2 inh inhalation Q6H PRN shortness 09/26/24 mcg/actuation aerosol inhaler of breath or wheezing #3 ea tramadol 50 mg tablet 50 mg PO BID PRN pain #30 tabs 10/02/24 acetaminophen 500 mg tablet 1,000 mg (2 x 500 mg) PO TID #90 11/25/24 tabs atorvastatin 10 mg tablet 10 mg PO QPM #90 tabs 11/25/24 buspirone 5 mg tablet 5 mg PO BID #180 tabs 11/25/24 fluoxetine 20 mg capsule 20 mg PO DAILY #90 caps 11/25/24 fluoxetine 40 mg capsule 40 mg PO DAILY #90 caps 11/25/24 fluticasone propionate 50 2 spray intranasal DAILY PRN 11/25/24 mcg/actuation nasal allergy symptoms #16 grams spray,suspension (Flonase Allergy Relief) montelukast 10 mg tablet 10 mg PO HS #90 tabs 11/25/24 (Singulair) sumatriptan succinate 100 mg tablet 100 mg PO ONCE PRN migraine 11/25/24 headache #30 tabs cephalexin 500 mg capsule 500 mg PO TID #270 caps 12/05/24 Current Visit Medications: Current Medications Generic Name Dose Route Start Last Admin Trade Name Aggie PRN Reason Stop Dose Admin Ringer's Solution 1,000 mls @ 80 mls/hr 12/24/24 06:00 IV 12/24/24 23:59 INFUSION BROWN Cefazolin Sodium/Dextrose 2 gm in 50 mls @ 100 mls/hr 12/24/24 06:00 Ancef Duplex IVPB 12/24/24 23:59 PREOP BROWN IV Miscellaneous Supplies 1 each 12/24/24 06:00 Iv Access IV 12/24/24 23:59 DIRECTED BROWN Sodium Chloride 0 ml 12/24/24 06:00 Normal Saline Flush 10 Ml Syr IV 12/24/24 23:59 PRN PRN Sodium Chloride 0 ml 12/24/24 06:00 Normal Saline 10 Ml Vial IJ 12/24/24 23:59 DIRECTED PRN Sterile Water 0 ml 12/24/24 06:00 Water,Injection,Sterile 10 Ml Vial IJ 12/24/24 23:59 DIRECTED PRN PFSH Active Problems Active Problems: Problem Status Onset Code Lumbosacral spondylosis without myelopathy Acute M47.817 Stricture of left ureter Acute N13.5 Degenerative joint disease (DJD) of lumbar spine Acute M47.816 Chronic low back pain Chronic M54.50, G89.29 Painful total knee replacement, right Chronic T84.84XA, Z96.651 Carpal tunnel syndrome of left wrist Chronic G56.02 Arthritis of left glenohumeral joint Chronic M19.012 Prediabetes Chronic R73.03 Tendinitis of left rotator cuff Chronic M75.82 Dysphagia Chronic R13.10 Metabolic dysfunction-associated steatotic liver disease (MASLD) Chronic K76.0 Asthma-COPD overlap syndrome Chronic J44.89 Generalized anxiety disorder Chronic F41.1 Major depressive disorder, recurrent Chronic F33.9 Degenerative joint disease, shoulder, 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 Degenerative joint disease, shoulder, 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 At risk for aspiration Chronic Z91.89 Gastroesophageal reflux disease with esophagitis Chronic K21.0 Migraine headache Chronic G43.909 Hyperlipidemia Chronic E78.5 Medical History Medical History Type 2 diabetes mellitus Tubular adenoma of colon On 2019 colonoscopy Bilateral nephrolithiasis Pyloric ulcer associated with Helicobacter pylori 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 Surgical History Surgical History History of hysterectomy S/P repair of paraesophageal hernia (07/04/22) Repaired in a revised T[place] fundoplication d/t multiple prior repairs History of fundoplication (07/04/22) Toupet fundoplication for revision of prior nga fundoplication 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) left TKA on 07/06/17 left knee synovectomy and polyethylene exchange on 08/22/17 irrigation and debridement with polyethylene exchange and placement of antibiotic beads on 09/13/17 explantation of left knee arthroplasty with placement of cement spacer on 10/19/17 2-stage revision left knee arthroplasty on 12/22/17 irrigation and debridement of left knee with antibiotic bead placement on 04/22/18 History of colonoscopy (05/15/23) History of carpal tunnel surgery of right wrist (04/05/22) History of arthroscopy of left shoulder (02/07/23) History of arthroscopy of right shoulder (03/02/22) S/P recurrent ventral herniorrhaphy Status post total left knee replacement (07/06/17) Status post arthroscopy of left knee (08/21/19) Hx of cystoscopy Lithotripsy, stents x 3 History of total right knee replacement History of esophagogastroduodenoscopy History of incisional hernia repair Status post Nga fundoplication Status post cholecystectomy Status post laparoscopic hysterectomy Status post tonsillectomy Status post revision of total replacement of left knee (07/21/20) Patellar resurfacing DOS: 07/21/2020 DOS: 12/22/17 Dr. Gongora Tobacco Smoking/Tobacco Use Status: Never Passive smoking exposure: Yes Second hand exposure: Yes Alcohol Alcohol Intake: current Alcohol intake frequency: holidays/special occasions only Alcohol type: hard liquor and other Substance Use Substance use: Never Substance use type: does not use Details: alcohol: a year Vital Signs and Lab Results Vital Signs Most Recent Vital Signs in EMR: Most Recent Vital Signs Temp Pulse Resp BP Pulse Ox 36.7 C 89 20 122/93 H 99 12/24/24 12:18 12/24/24 12:18 12/24/24 12:18 12/24/24 12:18 12/24/24 12:18 Lab Results Complete Blood Count: WBC, (4.4-10.8) 7.45 10^3/uL 12/10/24, 09:13 RBC, (3.93-5.22) 3.62 10^6/uL L 12/10/24, 09:13 Hgb, (11.2-15.7) 12.0 g/dL 12/10/24, 09:13 Hct, (36.0-46.0) 35.5 % L 12/10/24, 09:13 Plt Count, (130-400) 268 10^3/uL 12/10/24, 09:13 Complete Metabolic Panel: Sodium, (136-145) 140 mmol/L 12/10/24, 09:13 Potassium, (3.5-5.1) 4.4 mmol/L 12/10/24, 09:13 Chloride, (98-107) 106 mmol/L 12/10/24, 09:13 Carbon Dioxide, (21.0-32.0) 26.5 mmol/L 12/10/24, 09:13 BUN, (7-18) 15 mg/dL 12/10/24, 09:13 Creatinine, (0.55-1.02) 1.1 mg/dL H 12/10/24, 09:13 Est GFR (CKD-EPI 2020), (mL/min/1.73m2) 59.34 12/10/24, 09:13 Calcium, (8.5-10.1) 9.0 mg/dL 12/10/24, 09:13 Albumin, (3.4-5.0) 3.3 g/dL L 12/10/24, 09:13 Glucose, (74-106) 104 mg/dL 12/10/24, 09:13 Hemoglobin A1c, (<5.7) 5.1 % 12/10/24, 09:13 Liver Function Panel: ALT, (14-59) 12 U/L L 12/10/24, 09:13 AST, (15-37) 12 U/L L 12/10/24, 09:13 Imaging and Studies Imaging and Studies Study information below may be from another EMR and interpreted by another provider. Please see original notes in EMR for more complete details. CT Summary: Exam(s) CT ABDOMEN PELVIS W EXAM: CT ABDOMEN PELVIS W CLINICAL HISTORY: lower Abdominal pain. TECHNIQUE: Imaging Protocol: Axial computed tomography images with coronal and sagittal reformatted images were created and reviewed CONTRAST MATERIAL: Intravenous: Omnipaque 350 Contrast volume:70 ml Oral: no COMPARISON: CT CT ABDOMEN PELVIS W from 10/05/2023 FINDINGS: ABDOMEN and PELVIS: Lung Bases: No acute findings. Similar appearance of thickening of the distal is esophagus and upper fundus likely representing this in fundoplication. Similar appearance to Liver: Normal density. No suspicious mass. Gallbladder and biliary tract: Cholecystectomy. No biliary dilation. Pancreas: Normal density. No abnormal calcifications or inflammatory process. No evidence of mass. Spleen: Normal. Kidneys: Normal size, contour and axis. The 6 millimeter stone upper cyst upper pole left kidney. Larger stones noted at the lower pole. None millimeters stone at the ureteropelvic junction causing moderate left hydronephrosis. There is some delay in the left nephrogram. There is mild left perinephric stranding. No suspicious masses seen. Adrenal glands: No masses seen. Vasculature: Abdominal aorta non-dilated. Mild atherosclerotic calcification Soft tissues: The midline abdominal wall hernia repair. Bladder: Nearly empty. No gross wall thickening. No calculi.No focal mass. Bowel: No obstruction. No bowel wall thickening. Appendix normal. Peritoneal cavity: No ascites. No focal collection. No mesenteric inflammatory response. No free air. Bones: Unremarkable for age. Reproductive organs: Status post hysterectomy with residual cervical stump. Similar appearing cystic lesion at the cervix, likely nabothian cyst. Small cyst right ovary. Lymph nodes: No pathologically enlarged lymph nodes. IMPRESSION:: 9 millimeter stone at the left ureteropelvic junction causing moderate hydronephrosis. Additional nonobstructing left renal calculi. Other Study Summary:: 04/14, gastric emptying study: no evidence of delated gastric emptying. 02/10, upper GI: hiatal hernia. Anesthesia Assessment and Plan Anesthesia History Personal History: No History of Anesthesia Complications and Other Family History: No Family History of Anesthesia Complications Exercise Tolerance Exercise Tolerance: Metabolic Equivalents>4 Cardiac & Pulmonary Exam Cardiac Exam: Normal S1/S2 Heart Sounds Pulmonary Exam: Clear Bilateral Breath Sounds Implantable Cardiac Device Does patient have a Pacemaker or an ICD?: No Airway Exam Known Difficult Airway: No Mallampati Class: 3 Mouth Opening: Narrow (< 3cm) Thyromental Distance: Less than 3 cm Neck Range of Motion: Full ROM Neck Circumference: Normal Teeth Condition: Generalized Poor Dentition and Loose or Chipped (some broken molars, none loose per patient) ASA Classification ASA Score: ASA 2 Emergency Case?: No NPO Status NPO Status: NPO Clears >2 hours, Solids >8 hours Anesthesia Plan Resuscitation Status: Full Code Anesthesia Technique: MAC Anesthesia Airway Planned: Natural Airway Monitors Used: Standard Monitors Preoperative Comments:: 54 yo for ECTR. No health history changes since her last procedure Sig PMHx: asthma/COPD (singluar, levalubertol, trelegy), fatty liver, depression/anxiety, GERD (nexium) - failed nga which has been revised again with success, DM (was uncontrolled, last A1c 5.7) Previous Anes: Many anesthetics with us. History of green fluid around ETT cuff on extubation on many occasions. Has had a repeat nga and she states that she has been doing much better, Still sleeps with HOB elevated, but has been able to lay flat since her last nga. She is also down a substantial amount of weight since then. - previous Glez 2/Mac 3/Mac/4/glide 3 grade 1. - has had colo in the past with dexmed, midaz, ketamine without issues. Discussed plan of MAC, HOB up during the procedure. GA as back up.
[2024-12-24 12:48] VITALS: BMI 21.5
[2024-12-24] MEDS: ceFAZolin 2 GM/50 ML BAG IVPB (13:15)
[2024-12-24] MEDS: Lidocaine 1% Multi-Dose W/EPI 1/100,000 50 ML VIAL (13:24)
[2024-12-24 13:31] VITALS: BP 104/72; PULSE 71; RESP 18; TEMP 36.3; O2SAT 93
--- NOTE | 2024-12-24 13:34 | W.PM.DSUDISC ---
Date of service: 12/24/24 Discharge Plan Disposition Patient Disposition: Home Condition: Good Discharge Details Reason For Visit: Left carpal tunnel syndrome Attending Provider: Raheel Gongora Primary Care Provider: Renetta Bonner Home Meds and New Rx's Prescriptions: New hydrocodone-acetaminophen 5-325 mg tablet 1 tab PO Q6H PRN (Reason: severe pain) Qty: 4 0RF Rx Instructions: Take one tablet up to every 6 hours as needed for severe postoperative pain ibuprofen 600 mg tablet 600 mg PO TID PRN (Reason: pain) Qty: 60 0RF Continued levocetirizine 5 mg tablet 5 mg PO DAILY PRN (Reason: allergy symptoms) Qty: 90 3RF lactase [Lactase Fast Acting] 9,000 unit tablet 9,000 unit PO DAILY PRN (Reason: lactose intolerance) Qty: 90 3RF Breztri Aerosphere 160-9-4.8 mcg/actuation HFA aerosol inhaler 2 inh inhalation BID Qty: 10.7 12RF levalbuterol HCl 0.63 mg/3 mL solution for nebulization 0.63 mg inhalation Q6H PRN (Reason: shortness of breath or wheezing) Qty: 90 6RF levalbuterol tartrate 45 mcg/actuation HFA aerosol inhaler 2 inh inhalation Q6H PRN (Reason: shortness of breath or wheezing) Qty: 3 4RF albuterol sulfate 2.5 mg /3 mL (0.083 %) solution for nebulization 2.5 mg Inhalation Q6H PRN (Reason: shortness of breath or wheezing) Qty: 360 3RF Patient Comments: 07/03/17 Per pt uses every night.jw gabapentin 300 mg capsule 300 - 600 mg PO TID Qty: 360 3RF Rx Instructions: 1 pill in the morning and afternoon and 2 pills in the evening ondansetron 4 mg tablet,disintegrating 4 mg PO Q8H PRN (Reason: nausea and vomiting) Qty: 14 0RF tamsulosin 0.4 mg capsule 0.4 mg PO DAILY PRN (Reason: renal colic) Qty: 30 1RF fexofenadine 180 mg tablet 180 mg PO DAILY Qty: 90 3RF triamcinolone acetonide 0.1 % cream 1 applic topical BID PRN (Reason: rash) Qty: 80 1RF magnesium oxide 500 mg capsule 500 mg PO DAILY Qty: 90 3RF esomeprazole magnesium [Nexium] 40 mg capsule,delayed release(DR/EC) 40 mg PO DAILY Qty: 90 3RF (DME) OneTouch Ultra Test Strip 1 ea Miscellaneous DAILY Qty: 200 3RF Rx Instructions: Check blood sugar twice a day cephalexin 500 mg capsule 500 mg PO TID Qty: 270 3RF atorvastatin 10 mg tablet 10 mg PO QPM Qty: 90 3RF buspirone 5 mg tablet 5 mg PO BID Qty: 180 3RF fluoxetine 20 mg capsule 20 mg PO DAILY Qty: 90 3RF Rx Instructions: Take with 40mg cap for a total of 60mg fluoxetine 40 mg capsule 40 mg PO DAILY Qty: 90 3RF Rx Instructions: Take with 20mg cap for a total of 60mg montelukast [Singulair] 10 mg tablet 10 mg PO HS Qty: 90 3RF sumatriptan succinate 100 mg tablet 100 mg PO ONCE MDD 2 pills PRN (Reason: migraine headache) Qty: 30 4RF Rx Instructions: Take one tab at onset of headache. May repeat in 2 hours if no relief. fluticasone propionate [Flonase Allergy Relief] 50 mcg/actuation spray,suspension 2 spray intranasal DAILY PRN (Reason: allergy symptoms) Qty: 16 3RF Rx Instructions: administer into each nostril acetaminophen 500 mg tablet 1,000 mg PO TID Qty: 90 4RF cholecalciferol (vitamin D3) [Vitamin D3] 2,000 UNIT capsule 2,000 unit PO DAILY metoclopramide HCl [Reglan] 5 mg tablet 5 mg PO TID PRN (Reason: nausea and vomiting) Qty: 270 3RF Complete Multivitamin-Mineral 9 mg iron/15 mL liquid See Rx Instructions PO DAILY Qty: 240 3RF Rx Instructions: orally daily; dicyclomine 20 mg tablet 20 mg PO TID PRN (Reason: abdominal pain) Qty: 90 3RF tramadol 50 mg tablet 50 mg PO BID PRN (Reason: pain) Qty: 30 0RF Discharge Instructions Stand Alone Forms: Anesthesia Discharge Inst., Fransisca Coello Tunnel Martha Boykin ([facility]) Referrals: Raheel Gongora MD [ [facility] STAFF PHYSICIAN, Orthopaedic Surgical] - 01/02/25 11:00 am Referral Note: w/PA Activity:: Elevate Remove Dressings/Wound Care:: 48 hours Shower/Bathe:: 48 hours Diet:: As Tolerated Discharge Orders Discharge Orders: Discharge Order (Routine); Ordered 12/24/24 Ordered By: Marilee Bee
--- NOTE | 2024-12-24 13:41 | ROE_ITS ---
Operative Note Operative Note PRE-OP DIAGNOSIS: Left Carpal Tunnel Syndrome POST-OP DIAGNOSIS: same PROCEDURE: Left Endoscopic Carpal Tunnel Release SURGEON: Raheel Gongora ANESTHESIA TYPE: MAC Refer to Anesthesia Record ESTIMATED BLOOD LOSS: 0 PATHOLOGY: none sent TOURNIQUET TIME: 6 COMPLICATIONS: None Patient was transported to: same day Patient's condition: stable Indications: I have seen Fay in clinic for symptoms of carpal tunnel syndrome. The numbness, tingling, and pain limited function. Clinical exam findings confirmed the diagnosis of carpal tunnel syndrome. Nonoperative measures such as bracing, time, activity modifications had been tried but disability and pain persisted. I discussed carpal tunnel release with the patient. I reviewed the risks of the procedure to include, but not limited to, bleeding, infection, pain, stiffness, incomplete release, damage to nerves or vessels, persistent numbness, recurrence. Despite these risks, the patient elected to proceed. Findings: There was tightened carpal tunnel. This was dilated and released successfully with the endoscopic with increased space within the tunnel. The antebrachial fascia was released proximally freeing the median nerve at the wrist. Procedure Description: Fay was greeted in the preoperative holding area where the correct side was identified and marked. The consent was reviewed with the patient and signed. The history and physical was updated. All questions were answered. Fay was taken back to the operating room. The patient was placed into the supine position on the operating room table with the left arm on an arm board. A nonsterile tourniquet was placed high onto the arm. All bony prominences were well padded. Prophylactic antibiotics in the form of Cefazolin were administered. The left arm was then prepped with Chloraprep and draped in a standard fashion with stockinette and extremity drape. A timeout to confirm correct identity, side and site, procedure, allergies, anesthesia, and medical concerns was performed. The surgical site was marked in the volar wrist creases in line with the radial border of the fourth ray. This area was anesthetized with approximately 6cc of 1% Lidocaine. The limb was then exsanguinated with an Esmarch. The skin was incised with a 15 blade, approximately 1cm. The skin only was cut and the deeper tissue was dissected bluntly with a tenotomy scissor, avoiding passing nerve and venous structures. The fascia was penetrated and opened bluntly. A two-prong skin hook was placed under this proximal fascial edge. A series of hamate finders were used to identify and dilate the carpal tunnel. Synovial elevator was used to free synovial attachments to the underside of the transverse carpal ligament. My thumb was kept in the palm to daniella the distal extent of the carpal tunnel and correctly position the hand. The Microaire endoscope was inserted without difficulty and without resistance. Excellent visualization showed horizontally running fibers of the transverse carpal ligament (TCL). The distal extent of the TCL was visualized and the end of the scope palpated with the thumb. The blade was elevated and withdrawn from distal to proximal. The TCL was split into two flaps. The endoscope was reinserted to confirm complete release and any remnant ligament was incised. The scope was withdrawn and the proximal aspect of the carpal tunnel was grossly inspected and appeared release with the median nerve visible. The antebrachial fascia at the level of the wrist was then freed from the overlying skin and then the underlying median nerve with blunt dissection. This was transected longitudinally for about 3cm proximal to the wrist incision. The wound was then irrigated with easy flow of irrigant distally and proximally. The incision was closed with a single 4-0 Nylon suture. The wound was dressed w ith Xeroform, Gauze, Kerlix and Lawrence. The tourniquet was deflated with the initial dressing and held with some pressure. Blood flow returned easily to all digits with capillary refill less than 2 seconds. The patient tolerated the procedure well and was returned to the Same Day Surgery area in a stable condition suffering no known complication. Date of Procedure: 12/24/24
--- NOTE | 2024-12-24 13:48 | W.ANESPOSTOP ---
Postoperative Evaluation Date, Time and Location Date Performed: 12/24/24 Time Performed: 13:48 Patient Location: Day Surgery Unit Vital Signs Most Recent Imported Vital Signs: Most Recent Vital Signs Temp Pulse Resp BP Pulse Ox 36.3 C L 71 18 104/72 93 12/24/24 13:31 12/24/24 13:31 12/24/24 13:31 12/24/24 13:31 12/24/24 13:31 Pain Score Most Recent Pain Score: Most Recent Pain Score Pain Level 3 12/24/24 13:31 Assessment Mental Status: Awake (Alert & Oriented to Patient Baseline) Airway and Respiratory Function: Patent airway with normal (patient baseline) respiratory exam Cardiovascular Function: Hemodynamically Stable Hydration Status: Adequately Hydrated Nausea & Vomiting: No Nausea or Vomiting Pain: Pt. Denies Any Pain Peripheral Nerve Block: Patient did not receive a nerve block
[2024-12-24 14:00] VITALS: BP 133/93; PULSE 86; RESP 18; TEMP 36.8; O2SAT 98
== END 2024-12-24 14:14 | disposition home or self-care (01) ==
PROVIDERS: PCP Nurse Practitioner Family; Visit Provider Student in an Organized Health Care Education/Training Program
PROC: 01N54ZZ Release Median Nerve, Percutaneous Endoscopic Approach (ICD-10-PCS; CPT 29848; principal; 2024-12-24 14:30)
DX: G56.02 Carpal tunnel syndrome, left upper limb (principal); J44.9 Chronic obstructive pulmonary disease, unspecified; E11.9 Type 2 diabetes mellitus without complications; K21.9 Gastro-esophageal reflux disease without esophagitis
CPT/HCPCS: 29848; J0690; J2004; J2250; J2405; J2704; J3010

== ENCOUNTER → 2025-01-02 10:37 | Outpatient (BNVA) | payer MEDICARE, SELFPAY | PROVIDERS: PCP Nurse Practitioner Family; Referring Provider Nurse Practitioner Family; Visit Provider Physician Assistant | DX: Z47.89 Encounter for other orthopedic aftercare (principal); G56.02 Carpal tunnel syndrome, left upper limb | CPT/HCPCS: 99024 ==

== ENCOUNTER → 2025-01-15 10:24 | Outpatient (BNVA) | payer MEDICARE, SELFPAY | PROVIDERS: PCP Nurse Practitioner Family; Referring Provider Nurse Practitioner Family; Visit Provider Student in an Organized Health Care Education/Training Program | DX: M19.012 Primary osteoarthritis, left shoulder (principal) | CPT/HCPCS: 99214 ==

== ENCOUNTER 2025-01-31 05:45 | Day surgery (SDC) | payer MEDICARE, SELFPAY ==
--- NOTE | 2025-01-30 16:20 | W.ANESPRE ---
General Info Date of Service Date Performed: 01/31/25 Height: 5 ft 2 in Weight: 49.895 kg Body Mass Index (BMI): 20.1 Surgical Procedure: Operation Date: 01/31/25 07:40 Proposed Procedure Side Surgeon p Shoulder Reverse Total Arthroplasty, Possible Biceps Repair, Tenodesis Left Catarino Albarran MD Meds Allergies and Home Medications Allergies Allergy/AdvReac Type Severity Reaction Status Date / Time latex Allergy Severe HIVES, Verified 01/31/25 06:18 ITCHING ibuprofen AdvReac Severe Other (See Verified 01/31/25 06:18 Comment) erythromycin base AdvReac Intermediate NAUSEA, Verified 01/31/25 06:18 VOMITING chlorhexidine (From AdvReac Mild Itching Verified 01/31/25 06:18 Hibiclens) codeine AdvReac NAUSEA, Verified 01/31/25 06:18 VOMITING Dermabond Allergy Intermediate Skin Rash Uncoded 01/31/25 06:18 Glue Allergy Mild Rash and Uncoded 01/31/25 06:18 blisters Home Medication ?Medication ?Instructions ?Recorded cholecalciferol (vitamin D3) 50 2,000 unit PO DAILY 05/19/15 mcg (2,000 unit) capsule (Vitamin D3) metoclopramide HCl 5 mg tablet 5 mg PO TID PRN nausea and 08/10/22 (Reglan) vomiting #270 tabs fexofenadine 180 mg tablet 180 mg PO DAILY #90 tabs 03/20/23 Held on 01/30/25. Instructions: Changed by Provider levocetirizine 5 mg tablet 5 mg PO DAILY PRN allergy symptoms 09/21/23 #90 tabs multivitamin with minerals-iron See Rx Instructions PO DAILY #240 10/26/23 fumarate 9 mg iron/15 mL oral mL liquid (Complete Multivitamin-Multimineral) lactase 9,000 unit tablet (Lactase 9,000 unit PO DAILY PRN lactose 12/28/23 Fast Acting) intolerance #90 tabs blood sugar diagnostic (OneTouch #200 ea 03/21/24 Ultra Test strips) esomeprazole magnesium 40 mg 40 mg PO DAILY #90 caps 03/21/24 capsule,delayed release (Nexium) magnesium oxide 500 mg capsule 500 mg PO DAILY #90 caps 03/21/24 dicyclomine 20 mg tablet 20 mg PO TID PRN abdominal pain 03/28/24 #90 tabs ondansetron 4 mg disintegrating 4 mg PO Q8H PRN nausea and 07/11/24 tablet vomiting #14 tabs budesonide 160 mcg-glycopyr 9 2 inh inhalation BID #10.7 grams 08/19/24 mcg-formot 4.8 mcg/actuation HFA inhaler (Breztri Aerosphere) levalbuterol HCl 0.63 mg/3 mL 0.63 mg (3 mL) inhalation Q6H PRN 08/20/24 solution for nebulization shortness of breath or wheezing #90 mL albuterol sulfate 2.5 mg/3 mL 2.5 mg (3 mL) inhalation Q6H PRN 09/26/24 (0.083 %) solution for nebulization shortness of breath or wheezing #360 mL gabapentin 300 mg capsule 300 - 600 mg (1 - 2 x 300 mg) PO 09/26/24 TID #360 caps levalbuterol tartrate 45 2 inh inhalation Q6H PRN shortness 09/26/24 mcg/actuation aerosol inhaler of breath or wheezing #3 ea atorvastatin 10 mg tablet 10 mg PO QPM #90 tabs 11/25/24 buspirone 5 mg tablet 5 mg PO BID #180 tabs 11/25/24 fluoxetine 20 mg capsule 20 mg PO DAILY #90 caps 11/25/24 fluoxetine 40 mg capsule 40 mg PO DAILY #90 caps 11/25/24 fluticasone propionate 50 2 spray intranasal DAILY PRN 11/25/24 mcg/actuation nasal allergy symptoms #16 grams spray,suspension (Flonase Allergy Relief) montelukast 10 mg tablet 10 mg PO HS #90 tabs 11/25/24 (Singulair) Held on 01/30/25. Instructions: Changed by Provider sumatriptan succinate 100 mg tablet 100 mg PO ONCE PRN migraine 11/25/24 headache #30 tabs cephalexin 500 mg capsule 500 mg PO TID #270 caps 12/05/24 ibuprofen 600 mg tablet 600 mg PO TID PRN pain #60 tabs 12/24/24 acetaminophen 500 mg tablet 1,000 mg (2 x 500 mg) PO TID #90 12/25/24 tabs triamcinolone acetonide 0.1 % 1 applic topical BID PRN rash #80 11/10/25 topical cream grams tamsulosin 0.4 mg capsule 0.4 mg PO DAILY PRN renal colic 01/23/25 #30 caps Current Visit Medications: Current Medications Generic Name Dose Route Start Last Admin Trade Name Aggie PRN Reason Stop Dose Admin Ringer's Solution 1,000 mls @ 30 mls/hr 01/31/25 06:00 IV 01/31/25 23:59 INFUSION BROWN Cefazolin Sodium/Dextrose 2 gm in 50 mls @ 100 mls/hr 01/31/25 06:00 Ancef Duplex IVPB 01/31/25 23:59 PREOP BROWN Tranexamic Acid/Sodium Chloride 1,000 mg in 100 mls @ 600 mls/hr 01/31/25 06:00 IVPB 01/31/25 23:59 PREOP BROWN Sodium Chloride 0 ml 01/31/25 06:00 Normal Saline Flush 10 Ml Syr IV 01/31/25 23:59 PRN PRN Sodium Chloride 0 ml 01/31/25 06:00 Normal Saline 10 Ml Vial IJ 01/31/25 23:59 DIRECTED PRN Sterile Water 0 ml 01/31/25 06:00 Water,Injection,Sterile 10 Ml Vial IJ 01/31/25 23:59 DIRECTED PRN PFSH Active Problems Active Problems: Problem Status Onset Code Lumbosacral spondylosis without myelopathy Acute M47.817 Stricture of left ureter Acute N13.5 Degenerative joint disease (DJD) of lumbar spine Acute M47.816 Chronic low back pain Chronic M54.50, G89.29 Painful total knee replacement, right Chronic T84.84XA, Z96.651 Carpal tunnel syndrome of left wrist Chronic G56.02 Arthritis of left glenohumeral joint Chronic M19.012 Prediabetes Chronic R73.03 Tendinitis of left rotator cuff Chronic M75.82 Dysphagia Chronic R13.10 Metabolic dysfunction-associated steatotic liver disease (MASLD) Chronic K76.0 Asthma-COPD overlap syndrome Chronic J44.89 Generalized anxiety disorder Chronic F41.1 Major depressive disorder, recurrent Chronic F33.9 Degenerative joint disease, shoulder, 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 Degenerative joint disease, shoulder, 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 At risk for aspiration Chronic Z91.89 Gastroesophageal reflux disease with esophagitis Chronic K21.0 Migraine headache Chronic G43.909 Hyperlipidemia Chronic E78.5 Medical History Medical History Type 2 diabetes mellitus Tubular adenoma of colon On 2019 colonoscopy Bilateral nephrolithiasis Pyloric ulcer associated with Helicobacter pylori 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 Surgical History Surgical History History of hysterectomy S/P repair of paraesophageal hernia (07/04/22) Repaired in a revised T[place] fundoplication d/t multiple prior repairs History of fundoplication (07/04/22) Toupet fundoplication for revision of prior nga fundoplication 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) left TKA on 07/06/17 left knee synovectomy and polyethylene exchange on 08/22/17 irrigation and debridement with polyethylene exchange and placement of antibiotic beads on 09/13/17 explantation of left knee arthroplasty with placement of cement spacer on 10/19/17 2-stage revision left knee arthroplasty on 12/22/17 irrigation and debridement of left knee with antibiotic bead placement on 04/22/18 History of colonoscopy (05/15/23) History of carpal tunnel surgery of right wrist (04/05/22) History of arthroscopy of left shoulder (02/07/23) History of arthroscopy of right shoulder (03/02/22) S/P recurrent ventral herniorrhaphy Status post total left knee replacement (07/06/17) Status post arthroscopy of left knee (08/21/19) Hx of cystoscopy Lithotripsy, stents x 3 History of total right knee replacement History of esophagogastroduodenoscopy History of incisional hernia repair Status post Nga fundoplication Status post cholecystectomy Status post laparoscopic hysterectomy Status post tonsillectomy Status post revision of total replacement of left knee (07/21/20) Patellar resurfacing DOS: 07/21/2020 DOS: 12/22/17 Dr. Gongora Tobacco Smoking/Tobacco Use Status: Never Passive smoking exposure: Yes Second hand exposure: Yes Alcohol Alcohol Intake: current Alcohol intake frequency: holidays/special occasions only Alcohol type: hard liquor and other Substance Use Substance use: Never Substance use type: does not use Details: alcohol: a year Vital Signs and Lab Results Vital Signs Most Recent Vital Signs in EMR: Temp Pulse Resp BP Pulse Ox 36.2 C L 77 16 112/75 100 01/31/25 06:05 01/31/25 06:05 01/31/25 06:05 01/31/25 06:05 01/31/25 06:05 Imaging and Studies Imaging and Studies Study information below may be from another EMR and interpreted by another provider. Please see original notes in EMR for more complete details. EKG Summary: 10/12/06 NSR, HR 84 QT/QTC 362/405 P axis [address] Summary: Exam(s) CT ABDOMEN PELVIS W EXAM: CT ABDOMEN PELVIS W CLINICAL HISTORY: lower Abdominal pain. TECHNIQUE: Imaging Protocol: Axial computed tomography images with coronal and sagittal reformatted images were created and reviewed CONTRAST MATERIAL: Intravenous: Omnipaque 350 Contrast volume:70 ml Oral: no COMPARISON: CT CT ABDOMEN PELVIS W from 10/05/2023 FINDINGS: ABDOMEN and PELVIS: Lung Bases: No acute findings. Similar appearance of thickening of the distal is esophagus and upper fundus likely representing this in fundoplication. Similar appearance to Liver: Normal density. No suspicious mass. Gallbladder and biliary tract: Cholecystectomy. No biliary dilation. Pancreas: Normal density. No abnormal calcifications or inflammatory process. No evidence of mass. Spleen: Normal. Kidneys: Normal size, contour and axis. The 6 millimeter stone upper cyst upper pole left kidney. Larger stones noted at the lower pole. None millimeters stone at the ureteropelvic junction causing moderate left hydronephrosis. There is some delay in the left nephrogram. There is mild left perinephric stranding. No suspicious masses seen. Adrenal glands: No masses seen. Vasculature: Abdominal aorta non-dilated. Mild atherosclerotic calcification Soft tissues: The midline abdominal wall hernia repair. Bladder: Nearly empty. No gross wall thickening. No calculi.No focal mass. Bowel: No obstruction. No bowel wall thickening. Appendix normal. Peritoneal cavity: No ascites. No focal collection. No mesenteric inflammatory response. No free air. Bones: Unremarkable for age. Reproductive organs: Status post hysterectomy with residual cervical stump. Similar appearing cystic lesion at the cervix, likely nabothian cyst. Small cyst right ovary. Lymph nodes: No pathologically enlarged lymph nodes. IMPRESSION:: 9 millimeter stone at the left ureteropelvic junction causing moderate hydronephrosis. Additional nonobstructing left renal calculi. Pulmonary Function Summary: 05/27/24 Indications: COPD Interpretation Spirometry: There is moderate airflow limitation. No significant bronchodilator response. Impression Moderate airflow obstruction Clinical Correlation therefore is recommended. Other Study Summary:: 04/14, gastric emptying study: no evidence of delated gastric emptying. 02/10, upper GI: hiatal hernia. Anesthesia Assessment and Plan Anesthesia History Personal History: No History of Anesthesia Complications and Other Family History: No Family History of Anesthesia Complications and Family History Unknown Exercise Tolerance Exercise Tolerance: Metabolic Equivalents>4 Pertinent Negatives Pertinent Negatives: No Symptoms of GERD, No Major Cardiovascular Symptoms or Complaints and No History of CVA/TIA Cardiac & Pulmonary Exam Cardiac Exam: Normal S1/S2 Heart Sounds Pulmonary Exam: Clear Bilateral Breath Sounds Implantable Cardiac Device Does patient have a Pacemaker or an ICD?: No Airway Exam Known Difficult Airway: No Mallampati Class: 3 Mouth Opening: Narrow (< 3cm) Thyromental Distance: Less than 3 cm Neck Range of Motion: Full ROM Neck Circumference: Normal Teeth Condition: Generalized Poor Dentition and Loose or Chipped (some broken molars, none loose per patient) ASA Classification ASA Score: ASA 2 Emergency Case?: No NPO Status NPO Status: NPO Clears >2 hours, Solids >8 hours Anesthesia Plan Resuscitation Status: Full Code Anesthesia Technique: General Anesthesia Airway Planned: Endotracheal Tube Pain Management: Surgeon and patient request nerve block Monitors Used: Standard Monitors
[2025-01-31] VITALS (24 sets, daily range): BP systolic 92–114; BP diastolic 54–83; PULSE 68–85; RESP 11–19; TEMP 36.1–36.5; O2SAT 96–100; BMI 20.1
--- NOTE | 2025-01-31 07:11 | W.PM.DSUDISC ---
Date of service: 01/31/25 Discharge Plan Disposition Patient Disposition: Home Condition: Stable Discharge Details Attending Provider: Catarino Albarran Primary Care Provider: Renetta Bonner Home Meds and New Rx's Prescriptions: New naproxen 250 mg tablet 250 mg PO BID PRN (Reason: moderate pain and swelling) Qty: 40 0RF oxycodone 5 mg tablet 5 - 10 mg PO .q4-6h MDD 30 mg PRN (Reason: severe pain) Qty: 18 0RF doxycycline hyclate 100 mg capsule 100 mg PO BID 30 Days Qty: 60 0RF Rx Instructions: Use daily probiotic or yogurt while on antibiotics Bio-K plus 50 billion cell capsule,delayed release(DR/EC) 1 cap PO DAILY 30 Days Qty: 30 0RF Continued levocetirizine 5 mg tablet 5 mg PO DAILY PRN (Reason: allergy symptoms) Qty: 90 3RF lactase [Lactase Fast Acting] 9,000 unit tablet 9,000 unit PO DAILY PRN (Reason: lactose intolerance) Qty: 90 3RF Breztri Aerosphere 160-9-4.8 mcg/actuation HFA aerosol inhaler 2 inh inhalation BID Qty: 10.7 12RF levalbuterol HCl 0.63 mg/3 mL solution for nebulization 0.63 mg inhalation Q6H PRN (Reason: shortness of breath or wheezing) Qty: 90 6RF levalbuterol tartrate 45 mcg/actuation HFA aerosol inhaler 2 inh inhalation Q6H PRN (Reason: shortness of breath or wheezing) Qty: 3 4RF albuterol sulfate 2.5 mg /3 mL (0.083 %) solution for nebulization 2.5 mg Inhalation Q6H PRN (Reason: shortness of breath or wheezing) Qty: 360 3RF Patient Comments: 07/03/17 Per pt uses every night.jw gabapentin 300 mg capsule 300 - 600 mg PO TID Qty: 360 3RF Rx Instructions: 1 pill in the morning and afternoon and 2 pills in the evening ondansetron 4 mg tablet,disintegrating 4 mg PO Q8H PRN (Reason: nausea and vomiting) Qty: 14 0RF fexofenadine 180 mg tablet 180 mg PO DAILY Qty: 90 3RF magnesium oxide 500 mg capsule 500 mg PO DAILY Qty: 90 3RF esomeprazole magnesium [Nexium] 40 mg capsule,delayed release(DR/EC) 40 mg PO DAILY Qty: 90 3RF (DME) OneTouch Ultra Test Strip 1 ea Miscellaneous DAILY Qty: 200 3RF Rx Instructions: Check blood sugar twice a day cephalexin 500 mg capsule 500 mg PO TID Qty: 270 3RF atorvastatin 10 mg tablet 10 mg PO QPM Qty: 90 3RF buspirone 5 mg tablet 5 mg PO BID Qty: 180 3RF fluoxetine 20 mg capsule 20 mg PO DAILY Qty: 90 3RF Rx Instructions: Take with 40mg cap for a total of 60mg fluoxetine 40 mg capsule 40 mg PO DAILY Qty: 90 3RF Rx Instructions: Take with 20mg cap for a total of 60mg montelukast [Singulair] 10 mg tablet 10 mg PO HS Qty: 90 3RF sumatriptan succinate 100 mg tablet 100 mg PO ONCE MDD 2 pills PRN (Reason: migraine headache) Qty: 30 4RF Rx Instructions: Take one tab at onset of headache. May repeat in 2 hours if no relief. fluticasone propionate [Flonase Allergy Relief] 50 mcg/actuation spray,suspension 2 spray intranasal DAILY PRN (Reason: allergy symptoms) Qty: 16 3RF Rx Instructions: administer into each nostril cholecalciferol (vitamin D3) [Vitamin D3] 2,000 UNIT capsule 2,000 unit PO DAILY metoclopramide HCl [Reglan] 5 mg tablet 5 mg PO TID PRN (Reason: nausea and vomiting) Qty: 270 3RF Complete Multivitamin-Mineral 9 mg iron/15 mL liquid See Rx Instructions PO DAILY Qty: 240 3RF Rx Instructions: orally daily; dicyclomine 20 mg tablet 20 mg PO TID PRN (Reason: abdominal pain) Qty: 90 3RF acetaminophen 500 mg tablet 1,000 mg PO TID Qty: 90 4RF triamcinolone acetonide 0.1 % cream 1 applic topical BID PRN (Reason: rash) Qty: 80 1RF tamsulosin 0.4 mg capsule 0.4 mg PO DAILY PRN (Reason: renal colic) Qty: 30 1RF Discontinued ibuprofen 600 mg tablet 600 mg PO TID PRN (Reason: pain) Qty: 60 0RF Discharge Instructions Additional Instructions: Surgery: Left reverse total shoulder arthroplasty (subscapularis repair) 01/31/25 Activity: Do not lift anything heavier than a coffee. You should keep your arm at your side in a relatively neutral position at all times except for gentle range of motion exercises, physical therapy, and essential activities. You should use the sling whenever you are out of the house. At home it is best to remove the sling and rest the arm on a pillow at your side or support the operative side with your other hand. A physical therapy prescription will be sent electronically to start in about 3 weeks. CONSERVATIVE Reverse TSA Protocol. Prescriptions: Doxycycline 100 mg take 1 twice daily for 30 days to prevent infection Use a daily probiotic or yogurt while on antibiotics to prevent GI issues Naproxen 250 mg take 1 every 12 hours with a meal as needed for moderate pain Oxycodone 5 mg take 1-2 every 4-6 hours as needed for severe pain You may use [id number] Tylenol (acetaminophen) as needed for mild pain. These pain medications may be taken all at once or in different combinations as needed. Also, recommend Colace (docusate) as a stool softener as surgery and pain medicine cause constipation. You may try [id number] diphenhydramine (Benadryl) 25-50 mg nightly as a sleep aid Dressings: Leave dressing in place until follow-up. Keep clean and dry at all times. No showers please. Follow-up: 10-[address] Albarran You may take off the leg compression stockings this evening at home. You may also leave them on a few days longer if you have a history of leg swelling or edema. Please call the office during business hours with any questions or concerns. Let us know right away if you develop any redness, drainage, fevers, chest pain, or trouble breathing. Do not drink alcohol or drive for at least 24 hours after anesthesia. Stand Alone Forms: Portal Information Discharge Orders Discharge Orders: Discharge Order (Routine); Ordered 01/31/25 Ordered By: Kimberly Hartmann DS: Diagnosis Discharge Diagnosis (1) Arthritis of left glenohumeral joint: Status: Chronic (2) Left rotator cuff tear: Status: Acute
[2025-01-31] MEDS: Lactated Ringers 1,000 ML 30 ML IV (07:15)
--- NOTE | 2025-01-31 07:43 | ROE_ITS ---
Operative Note Operative Note PRE-OP DIAGNOSIS: Left: 1. Rotator cuff arthropathy 2. Partial rotator cuff tearing overlying notable greater tuberosity bone cysts/vulnerable rotator cuff 3. Prior shoulder surgery including arthroscopy debridement, decompression, and open subpectoral biceps tenodesis POST-OP DIAGNOSIS: same PROCEDURE: Left: 1. Reverse total shoulder arthroplasty, CPT # 82928 2. Open subscapularis rotator cuff repair, CPT# 22053 The fundraising assistant was medically required as this procedure involves retraction, protection of neurovascular structures, and manipulation of multiple instruments and implants at the same time, which cannot be done without a skilled fundraising assistant. SURGEON: Catarino Albarran HOME HEALTH PHYSICAL THERAPIST: Kimberly Hartmann ANESTHESIA TYPE: Local By Surgeon, General LMA/ETT and Primary Nerve Block Refer to Anesthesia Record ESTIMATED BLOOD LOSS: 150 PATHOLOGY: other (3x tissue samples for cultures) COMPLICATIONS: None Patient was transported to: PACU Patient's condition: stable Implants: [employer] modular glenoid system baseplate 24 mm +2mm lateral [employer] modular glenoid system central post 25 mm [employer] modular glenoid system peripheral locking screws 36 mm inferior, 32 mm superior, 16 mm posterior, 16 mm anterior [employer] modular glenoid system glenosphere 33 +4 mm lateralized [employer] humeral stem 135 degrees size 6 [employer] suture cup size 33 posterior offset [employer] spacer size 33 +6 mm [employer] humeral insert size 33 +3mm Indications: Since last office visit, patient remained extremely eager for shoulder replacement surgery as soon as possible. There was an opening on my schedule, and she gladly moved her surgery date. Her left shoulder imaging and discomfort likely relate to glenohumeral arthritis. There is some partial rotator cuff tearing and notable greater tuberosity bone cysts on MRI, CT, and x-rays so reverse TSA was chosen over anatomic TSA to minimize risk of requiring revision surgery for rotator cuff failure. Her repeat CRP at [facility] last month was also reassuring/negative. Prior aspiration of the joint was negative x 14 days. She has failed nonoperative treatments. We have formulated best plan possible to minimize complications, especially infection. Patient understands she remains elevated risk. Please see complete medical record for details. Findings: Absent long head biceps in the bicipital groove and intra-articular due to prior subpectoral tenodesis. Mild articular sided supraspinatus partial tearing over bone cysts. Intact and healthy subscapularis. Moderately significant glenohumeral degenerative changes/arthritis. Procedure Description: In the operating room, general anesthesia was induced. The patient was positioned beachchair on the operating room table. All bony prominences were well-padded. Preoperative antibiotics were administered. The shoulder was prepped and draped in the usual sterile fashion for shoulder arthroplasty. The correct patient, procedure, and side of the procedure were all verified prior to incision. The deltopectoral approach was preinjected with 0.25% bupivacaine containing epinephrine and taken to the anterior shoulder. Care was taken to bluntly dissect the interval between the deltoid and pectoralis major muscles and to identify the cephalic vein within its fat stripe. The the vein was mobilized laterally. Subdeltoid space and conjoined tendon were freed of adhesions. The bicipital groove was used to identify and open the rotator interval. A subscapularis peel was performed taking care to release the entire tendon in a full-thickness fashion from superior to inferior and lateral to medial while bringing the arm gradually into external rotation. Care was taken to avoid the axillary nerve by only working on the bone inferiorly and medially. The subscapularis was tagged using SutureTape in a Alberto-Ranjan fashion and traction used confirm appropriate mobilization of the subscapularis tendon after gentle blunt dissection was used to free up the space anterior and posterior to it. The supraspinatus and infraspinatus were identified and debrided of partial- thickness articular sided tearing tearing with the leading edge of the supraspinatus released for exposure. Appropriate coagulation was achieved especially interiorly. The anatomic neck was cut using an oscillating saw with the humeral head bone brought back table in case there was a need for future bone grafting. Multiple soft tissue samples from various areas were then sent in sterile specimen cups for culture given the revision setting although there was no signs of active infection. The proximal humerus was delivered from the wound with adduction and external rotation. The proximal humeral protection plate was used to provisionally confirm suture cup and glenosphere size. Reamers were started appropriately posterior to the bicipital groove taking care to maintain in line approach with the humeral canal. Sequential reaming was done from size 5 up to size 7. Next, the broaches were sequentially used to open the proximal humerus starting with a size 5 and going up to size 7 and then back down to size 6 in order to fit at the appropriate depth accommodating diminutive patient anatomy while maintaining approximately 25 degrees retroversion. There was good metaphyseal fit and rotational control of the proximal humerus with this size. The posterior offset guide was used to ream for the suture cup. Attention was then turned to the glenoid and retractors were placed and a circumferential release performed using the long head of the biceps remnant to remove soft tissue about the glenoid rim. Care was taken inferiorly to work on bone only between 5 and 7:00 o'clock and bluntly elevate tissues inferiorly. The VIP guide was placed on the glenoid and used to confirm placement and trajectory of the central guidepin. The guidepin was inserted and advanced just through the far cortex ensuring adequate central fixation length. The glenoid was prepared according to regulatory affairs internship specifications for a standard baseplate and central post. The baseplate was impacted onto the glenoid surface. The locking guide was then used to drill and place appropriately lengthed inferior, superior, anterior, and posterior screws. The [id number] reamer was used to confirm adequate peripheral reaming. The glenosphere was applied with the core rescuer and then impacted to engage the Waterman taper. It was then locked with appropriate countersinking of the setscrew. The glenosphere was inspected and found to have good fit, appropriate positioning, and no soft tissue or bony impingement. Attention was then turned back to the proximal humerus. The humeral trial cup was connected. Trialing was commenced with +3 mm liner. The shoulder was reduced and taken through range of motion. Trial components were built up to +6 mm spacer and +3 mm liner to achieve good stability and appropriate tension on the deltoid and conjoined tension. The trial components were removed from the proximal humerus. The wound was copiously irrigated with normal saline. A 2 mm drill was used to drill 2 drill holes in the bicipital groove for later subscapularis repair. The the proximal humeral stem and suture cup were assembled and brought over the proximal humerus. Suture tapes were placed superiorly inferiorly at the medial and lateral aspect of the suture cup. The lateral tapes were brought out the drill holes. A small amount of vancomycin powder was distributed in the proximal humerus. The humeral component and suture cup were impacted into place. The trial spacer and liner were added, and the shoulder was reduced and range of motion, stability, and tension confirmed to be appropriate. The final spacer and liner were then connected and range of motion, stability, and tension confirmed. The shoulder was copiously irrigated with normal saline. Vancomycin powder was distributed deeply about the shoulder and through subcutaneous tissues. The arm was placed in about 30 degrees of external rotation. The subscapularis was reduced and repaired using the pairs of SutureTape in a speed bridge type configuration. The arm was taken into more external rotation without any displacement of the subscapularis repair. An extra repair suture was placed at the superior edge securing it through a suture cup eyelet hole restoring the subscapularis nearing the rotator interval biceps groove. The deltopectoral interval was well-approximated. Subcutaneous tissue was irrigated occluding s urgery for then closed using 2-0 Monocryl in a buried interrupted fashion. Skin was closed using 3-0 Monocryl in a buried subcuticular fashion. Skin glue was avoided given rash reaction history and instead a few Steri-Strips were applied across the incision given patient concerns about incision opening up. A silver impregnated bandage was placed over the incision. The extremity was placed into a shoulder immobilizer. The patient awoke from anesthesia without complication and was taken to the recovery room in stable condition. Date of Procedure: 01/31/25
[2025-01-31] MEDS: ceFAZolin 2 GM/50 ML BAG IVPB (07:56)
[2025-01-31] MEDS: TRANEXAMIC ACID/SOD. CHL. 1,000 MG/100 ML BAG 600 MG IVPB (08:15)
[2025-01-31] MEDS: Bupivacaine 0.25% Pres-Free W/EPI 30 ML VIAL (08:28)
[2025-01-31] MEDS: Vancomycin 1,000 MG VIAL 1000 MG (08:28)
--- NOTE | 2025-01-31 09:43 | W.ANESNERVE ---
Nerve Block Single Injection Procedure Date and Time Date Performed: 01/31/25 Procedure Start: 07:33 Location Where Procedure Performed Procedure Location: Day Surgery Unit Reason Performed: Postoperative Analgesia Requesting Provider: Catarino Albarran Timeout Performed Timeout Performed: Yes Monitoring Used ECG, Blood Pressure, SpO2 and See EMR for corresponding vital signs Sterility Sterility: Hand Hygiene, Surgical Cap, Surgical Mask, Sterile Gloves and Alcohol Sedation Given During Procedure Sedation Given (Indicate Dose Given): Directed by Requesting Provider and Versed IV Dose:: 2mg Patient Mental Status Patient Mental Status: Sedate with meaningful communication Nerve Block 1st Nerve Block: Laterality: Left Block Type: Interscalene Ultrasound Image Saved?: Yes Needle / Catheter Used: 80mm SonoPlex II Local Anesthetic Bolus (Indicate Dose Given): Lidocaine used for local infiltration of skin, Bupivacaine 0.25% Dose:: 10ml and Exparel Dose:: 10ml Additives (Indicate Dose Given): None Ultrasound: Sterile probe cover and gel used Nerve Stimulator: No twitch or parasthesia noted < 0.5 mA Paresthesia: None Procedure Tolerated: No Complications and Patient tolerated well Procedure Outcome: Successful Performed By: Samra Pretty Supervised By: Luz Martinez
--- NOTE | 2025-01-31 11:30 | DI.RAD_ITS ---
Exam(s) XR SHOULDER LT COMPLETE 2+V EXAM: XR SHOULDER LT COMPLETE 2+V INDICATION: Post-op. COMPARISON: CT CT UPPER EXTREMITY LT WO from 10/29/2024 TECHNIQUE: 2D digital imaging was performed. Two views. Portable. FINDINGS: A reverse shoulder prosthesis has been placed. The alignment appears satisfactory. There is residual postsurgical air in the soft tissues. DATA REPOSITORY: RADIATION DOSE DELIVERED:
[2025-01-31] MEDS: ceFAZolin 1 GM/50 ML BAG IVPB (11:33)
[2025-01-31] MEDS: Lactobacillus Acidophilus CAP 1 CAP PO (12:15)
--- NOTE | 2025-01-31 13:06 | W.ANESPOSTOP ---
Postoperative Evaluation Date, Time and Location Date Performed: 01/31/25 Time Performed: 12:45 Patient Location: Day Surgery Unit Vital Signs Most Recent Imported Vital Signs: Most Recent Vital Signs Temp Pulse Resp BP Pulse Ox 36.1 C L 71 16 98/54 L 97 01/31/25 12:35 01/31/25 12:35 01/31/25 12:35 01/31/25 12:35 01/31/25 12:35 Pain Score Most Recent Pain Score: Most Recent Pain Score Pain Level 0 01/31/25 12:35 Assessment Mental Status: Awake (Alert & Oriented to Patient Baseline) Airway and Respiratory Function: Patent airway with normal (patient baseline) respiratory exam Cardiovascular Function: Hemodynamically Stable Hydration Status: Adequately Hydrated Nausea & Vomiting: No Nausea or Vomiting Pain: Pt. Denies Any Pain Peripheral Nerve Block: Regional nerve block not resolved at time of post operative discharge
== END 2025-01-31 13:00 | disposition home or self-care (01) ==
LOC: SUR 05:45
PROVIDERS: PCP Nurse Practitioner Family; Visit Provider Student in an Organized Health Care Education/Training Program
PROC: (CPT 23472; principal; 2025-01-31 07:30)
DX: M75.102 Unspecified rotator cuff tear or rupture of left shoulder, not specified as traumatic (principal); M19.012 Primary osteoarthritis, left shoulder; G89.18 Other acute postprocedural pain
CPT/HCPCS: 23472; 23410; C1776; 64415; 73030; 87070; 87075; 87205; J0131; J0665; J0666; J0690; J1100; J1885; J2003; J2250; J2371; J2405; J2704; J3373; J3475

== ENCOUNTER 2025-02-11 11:31 | Outpatient (CLI) | payer MEDICARE, SELFPAY ==
--- NOTE | 2025-02-11 08:45 | DI.RAD_ITS ---
Exam(s) XR SHOULDER LT COMPLETE 2+V EXAM: XR SHOULDER LT COMPLETE 2+V CLINICAL HISTORY: F/U LEFT RTSA. TECHNIQUE: 2D digital imaging was performed. COMPARISON: CR XR SHOULDER LT COMPLETE 2+V from 01/31/2025 FINDINGS: Two views There is satisfactory position alignment of the recently placed components reverse prosthesis No fracture or loosening evident. No evidence of osteomyelitis. No remaining gas in the soft tissues. IMPRESSION: Stable satisfactory appearance DATA REPOSITORY: RADIATION DOSE DELIVERED:
== END 2025-02-11 11:32 | disposition home or self-care (01) ==
LOC: DIORS 11:31
PROVIDERS: PCP Nurse Practitioner Family; Referring Provider Nurse Practitioner Family; Visit Provider Physician Assistant
DX: Z47.1 Aftercare following joint replacement surgery (principal); M19.012 Primary osteoarthritis, left shoulder
CPT/HCPCS: 99024; 73030